=== PATIENT | male | born 1955 ===

== ENCOUNTER 2024-01-13 17:48 | Outpatient (BNV) | payer OTHER, SELFPAY | END 2024-03-21 10:54 | PROVIDERS: Admitting Provider Psychiatry & Neurology Psychiatry; Visit Provider Internal Medicine | DX: R94.31 Abnormal electrocardiogram [ECG] [EKG] (principal) | CPT/HCPCS: 93010 ==

== ENCOUNTER 2024-01-13 17:48 | Outpatient (BNV) | payer OTHER, SELFPAY | END 2024-03-20 08:33 | PROVIDERS: Admitting Provider Psychiatry & Neurology Psychiatry; Visit Provider Radiology Diagnostic Radiology | DX: J69.0 Pneumonitis due to inhalation of food and vomit (principal) | CPT/HCPCS: 71046 ==

== ENCOUNTER 2024-01-13 17:48 | Inpatient (IN) | payer OTHER, SELFPAY ==
--- NOTE | ~2024-01-13 | CT_ITS ---
CLINICAL HISTORY: Fall, lump to right eyebrow CT head without contrast Comparison: CT/SR - CT HEAD/BRAIN WO IV CON - 04/05/24 16:[address]/SR - CT HEAD/BRAIN WO IV CON - 03/28/24 09:[address]/ND/SR - CT HEAD/BRAIN WO IV CON - 03/21/24 11:[address]/SR - CT HEAD/BRAIN WO IV CON - 02/29/24 01:46 EST Findings: No acute hemorrhage. No extra-axial fluid collection. No hydrocephalus, mass-effect or herniation. Segal-white differentiation is maintained. There is patchy hypoattenuation of the periventricular and deep white matter, which is most likely the sequela of mild chronic small vessel ischemic disease and is similar to the prior studies. No acute orbital pathology. Right supraorbital hematoma measuring 1.2 cm in thickness. No acute fracture. Remote fracture of the left lamina papyracea. The visualized paranasal sinuses are predominantly clear. The mastoid air cells are clear. Impression: No acute intracranial findings. This document has been electronically signed by: Janiya Leija MD on 04/10/2024 15:43:39
--- NOTE | ~2024-01-13 | XR_ITS ---
EXAMINATION: XR CHEST CLINICAL INFORMATION: R/O aspirative pneumonia COMPARISON: None available. TECHNIQUE: 2 lateral views of the chest were obtained. The AP view could not be obtained due to patient inability to comply with instructions. FINDINGS: Lateral view demonstrates basilar airspace opacity, possibly pneumonia. Left hemidiaphragm is elevated. Right costophrenic sulcus is obscured by the patient's chair. No left effusion present. Grossly laterally, cardiac and aortic contours are normal. XR/XR chest 2V IMPRESSION: Extremely limited exam. Only lateral views could be obtained. Suspect basilar airspace opacity, possibly pneumonia. Electronically signed by: Fortino Dumont MD 03/20/2024 10:10 AM [facility]
--- NOTE | ~2024-01-13 | CT_ITS ---
EXAMINATION: CT HEAD WITHOUT CONTRAST CLINICAL INFORMATION: fall head trauma COMPARISON: March 21, 2024 TECHNIQUE: Contiguous axial imaging was performed from the skull base to vertex without intravenous administration of contrast. This CT examination was performed using dose optimization techniques as appropriate, variously including the following: *Automated exposure control *Adjustment of mA and/or kV according to patient size (this includes techniques or standardized protocols for targeted exams where dose is matched to indication/reason for exam; i.e. extremities or head) *Use of iterative reconstruction technique DLP: 875 mGy-cm FINDINGS: Bony calvarium is intact. Skull base is intact. Small focal exostosis in the superior right parietal and left parietal bones. Old traumatic deformity left lamina papyracea resulting in herniated extraconal fat and questionable mild tethered medial extraocular muscle. No acute intracranial hemorrhage, mass effect, midline shift, hydrocephalus or herniation. Prominence of the extra-axial CSF spaces cerebral sulci involving mostly the frontotemporal lobes. Mild multifocal deep periventricular white matter hypodensities involving centrum semiovale and elias radiata. Old lacunar infarcts in the basal ganglia most conspicuous in the right thalamus. Calcified plaques in the V4 segments of the vertebral arteries and cavernous supracavernous segments both ICAs. Sellar/suprasellar region demonstrated no gross masses or hemorrhage. Craniocervical junction is intact and normal. Tympanic cavities and mastoid cells are aerated. Mucosal thickening right frontal ethmoid recess and left sphenoid sinus. No air-fluid levels in the paranasal sinuses.. CT/CT head/brain wo IV con IMPRESSION: No acute fracture, bony calvarium. No acute intracranial hemorrhage. Small vessel occlusive disease. Bifrontal bitemporal lobe atrophy. Electronically signed by: Juan Corrigan MD 03/28/2024 10:19 AM [facility]
--- NOTE | ~2024-01-13 | CT_ITS ---
CLINICAL HISTORY: head trauma CT head without contrast Comparison: CT/SR - CT HEAD/BRAIN WO IV CON - 04/09/24 09:01 EST Findings: No acute intracranial hemorrhage or midline shift. The vizcarra-white matter differentiation is maintained. Mild generalized cerebral involutional change. Mild burden chronic small-vessel white matter ischemic change. Punctate bilateral basal ganglia calcifications. The paranasal sinuses and mastoid air cells are clear. The globes are proptotic. Small frontal scalp hematoma and right supraorbital soft tissue swelling. The calvarium is intact. IMPRESSION: Small frontal scalp hematoma and right supraorbital soft tissue swelling. No acute intracranial hemorrhage or midline shift. This document has been electronically signed by: Esa Goncalves DO on 04/24/2024 11:38:33
--- NOTE | ~2024-01-13 | CT_ITS ---
EXAMINATION: CT HEAD WITHOUT CONTRAST CLINICAL INFORMATION: Fall, hit occipital area COMPARISON: None available. TECHNIQUE: Contiguous axial imaging was performed from the skull base to vertex without intravenous administration of contrast. This CT examination was performed using dose optimization techniques as appropriate, variously including the following: *Automated exposure control *Adjustment of mA and/or kV according to patient size (this includes techniques or standardized protocols for targeted exams where dose is matched to indication/reason for exam; i.e. extremities or head) *Use of iterative reconstruction technique DLP: 1233 FINDINGS: There is no acute intra-axial, extra-axial bleed, masses or midline shift. There is no acute infarction evolution. There is no edema. The grace to white matter differentiation is maintained normal. The lateral ventricles are symmetrical in size and configuration without enlargement. Bone windows reveal no calvarial abnormality. There is no scalp soft tissue abnormality. CT/CT head/brain wo IV con IMPRESSION: No acute intracranial process seen. Electronically signed by: Ritchie Marte MD 04/25/2024 01:01 PM [facility]
--- NOTE | ~2024-01-13 | CT_ITS ---
EXAMINATION: CT HEAD WITHOUT CONTRAST CLINICAL INFORMATION: Unwitnessed fall, dementia. COMPARISON: 02/29/2024. TECHNIQUE: Contiguous axial imaging was performed from the skull base to vertex without intravenous administration of contrast. This CT examination was performed using dose optimization techniques as appropriate, variously including the following: *Automated exposure control *Adjustment of mA and/or kV according to patient size (this includes techniques or standardized protocols for targeted exams where dose is matched to indication/reason for exam; i.e. extremities or head) *Use of iterative reconstruction technique FINDINGS: There is no evidence of intracranial hemorrhage or extra-axial fluid collection. There is no mass effect, or edema. No CT evidence of acute territorial infarct. Ventricles, sulci, and cisterns are normal in size and configuration for patient age. No hydrocephalus. No midline shift. Mild degree of nonspecific supratentorial white matter hypoattenuation, in keeping with small vessel ischemia. Old lacunar type infarct right mid elias radiata. Empty sella noted. Mild atheromatous calcification of the bilateral carotid siphons and V4 segments vertebral arteries bilaterally. Globes and orbital contents image normally. No extracranial soft tissue abnormalities. The paranasal sinuses, mastoid air cells, and tympanic cavities are normally aerated. No suspicious bony abnormalities. No acute fractures. Old left lamina papyracea fracture. Old right nasal bone fracture. CT/CT head/brain wo IV con IMPRESSION: 1. No acute intracranial abnormality. No acute fractures seen. 2. Stable chronic findings as discussed. Electronically signed by: Fortino Dumont MD 03/21/2024 11:54 AM [facility]
--- NOTE | ~2024-01-13 | CT_ITS ---
CLINICAL HISTORY: s p fall, head trauma CT head without contrast Comparison: None Findings: No acute intracranial hemorrhage. No midline shift or hydrocephalus. Mild white matter lesions are nonspecific and likely due to small-vessel ischemic disease. Mild calcifications of the basal ganglia regions noted. Soft tissue swelling suggested including over the left frontal convexity. No acute skull fracture. Orbital wall fractures with remodeling appear old chronic including medialization and/or medial displacement of the medial wall of the left orbit. Mucosal thickening of the imaged paranasal sinuses. Mild bilateral nasal bone deformities appear old. Imaged mastoid air cells are well aerated. Scalp calcifications are nonspecific. IMPRESSION: 1. No acute intracranial abnormality by CT. 2. Old left orbit medial wall fracture. This document has been electronically signed by: Sudhir Castaneda MD on 02/29/2024 02:40:56
--- NOTE | ~2024-01-13 | CT_ITS ---
CLINICAL HISTORY: s p fall, head trauma CT cervical spine without contrast Comparison: None Findings: Mild reversal of the cervical lordosis. No acute fracture of the cervical spine. Ligament calcifications are multifocal including nuchal ligament of the cervicothoracic junction. Mild vertebral height losses appear old chronic. Facet arthropathy is multifocal. Mild/minimal foraminal narrowing suggested. No paraspinal hematoma. Small cervical lymph nodes are likely reactive. Scarring and emphysematous changes of the imaged lung apices. Likely mild enlargement of the partially imaged thyroid. IMPRESSION: 1. No acute fracture cervical spine. 2. Reversal cervical lordosis. 3. Degenerative changes include facet arthropathy. This document has been electronically signed by: Sudhir Castaneda MD on 02/29/2024 02:33:36
--- NOTE | ~2024-01-13 | CT_ITS ---
EXAMINATION: CT PELVIS WITHOUT CONTRAST CLINICAL INFORMATION: Unwitnessed fall, dementia. COMPARISON: None available. TECHNIQUE: Helical scanning was performed with submillimeter collimation through the pelvis. Sagittal and coronal multiplanar 2-D reconstructions were obtained. This CT examination was performed using dose optimization techniques as appropriate, variously including the following: *Automated exposure control *Adjustment of mA and/or kV according to patient size (this includes techniques or standardized protocols for targeted exams where dose is matched to indication/reason for exam; i.e. extremities or head) *Use of iterative reconstruction technique FINDINGS: PELVIS: Urinary bladder is decompressed but demonstrates diffuse wall thickening, nonspecific. Prostate and seminal vesicles appear normal. There is a large amount of stool within the rectal wall and throughout the sigmoid colon in keeping with obstipation. No colonic wall thickening or inflammation. A normal appendix is partially visualized. No ascites or abnormal fluid collection. Mild to moderate calcification of the iliac arteries. Penile implants noted. No lymphadenopathy. Pelvic girdle musculature is normal in appearance without hematoma or fluid collection. OSSEOUS STRUCTURES: There are no fractures. The pelvis, hip joints, proximal femurs, sacrum, SI joints, and lower lumbar spine are intact. There are 2 bone islands in the right inferior and superior pubic bone. There are mild degenerative changes in both SI joints. CT/CT pelvis wo IV con IMPRESSION: 1. No acute bony abnormalities. No fractures. 2. Constipation with a large amount of stool in the rectum and sigmoid colon. 3. Mild thickening of the urinary bladder wall despite underdistention, nonspecific. Differential includes the detrusor hypertrophy, neurogenic bladder, or possibly cystitis. Electronically signed by: Fortino Dumont MD 03/21/2024 12:09 PM [facility]
--- NOTE | ~2024-01-13 | CT_ITS ---
CLINICAL HISTORY: head trauma CT head without contrast COMPARISON: CT/SR - CT HEAD/BRAIN WO IV CON - 03/28/24 09:37 EST FINDINGS: Global cerebral volume loss and chronic microvascular ischemic changes. No acute intracranial hemorrhage, extra-axial fluid collection, mass effect, or midline shift. Ventricular system and basilar cisterns are patent. Segal-white matter differentiation is maintained. No gross orbital abnormality. No suspicious or acute bone lesion. Mastoid air cells and paranasal sinuses are predominantly clear. IMPRESSION: 1. No acute intracranial abnormality. 2. Global cerebral volume loss and chronic microvascular ischemic changes. This document has been electronically signed by: Leon Servin MD on 04/05/2024 19:28:06
--- NOTE | ~2024-01-13 | CT_ITS ---
EXAMINATION: CT CERVICAL SPINE WITHOUT CONTRAST CLINICAL INFORMATION: Unwitnessed fall, dementia. COMPARISON: 02/29/2024. TECHNIQUE: Spiral CT imaging of the cervical spine was performed in axial plane without contrast. Sagittal, coronal, and thin section axial reformatted images were constructed from the axial data set. This CT examination was performed using dose optimization techniques as appropriate, variously including the following: *Automated exposure control *Adjustment of mA and/or kV according to patient size (this includes techniques or standardized protocols for targeted exams where dose is matched to indication/reason for exam; i.e. extremities or head) *Use of iterative reconstruction technique FINDINGS: Study is limited due to patient inability to comply with or tolerate appropriate positioning for the exam. Minimal reversal of the normal lordosis centered at C3. No fracture, compression deformity, traumatic subluxation, or suspicious focal bone lesion. Craniocervical junction and C1-2 articulation are intact and aligned, allowing for head tilt position. There is normal facet alignment. Mild disc space narrowing noted throughout. Bulky ventral osteophytes are present at C4-C6, appearance in keeping with DISH. No prevertebral soft tissue swelling. No abnormal fluid collection. Mildly globally enlarged thyroid without discrete nodule evident. Linear scarring in the right lung apex. CT/CT cervical spine wo IV con IMPRESSION: 1. Allowing for suboptimal positioning, there is no CT evidence of acute cervical spine fracture or injury. 2. Degenerative changes with bulky ventral osteophytes spanning C4-C6, appearance in keeping with DISH. Electronically signed by: Fortino Dumont MD 03/21/2024 12:[address] [facility]
[2024-01-13 18:09] VITALS: BP 160/80; PULSE 88; RESP 18; TEMP 36.4; O2SAT 99
[2024-01-13 18:11] VITALS: BMI 24.3
--- NOTE | 2024-01-13 18:32 | PC.NURSE ---
Bret arrived via stretcher at 1805. He took some coaxing to get down from the stretcher due to disorganization and his full concentration being used on asking staff members where the piano is. 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 Skin check completed with Jessica CHIRINOS and unremarkable aside from fungal toenails. Bret is a fall risk due to history of a recent fall, but adamantly refused to wear yellow socks due to dislike of the color. He was willing to put on brown socks. Dinner ordered and provided. During tour of the unit Bret repeated the various areas and checked each one multiple times, expressing displeasure that the shower and bathroom are not connected. He can be difficult to understand at times due to accented and mumbled speech. He is resistive of help and irritable but in behavioral control.
--- NOTE | 2024-01-13 19:00 | HO.PM.IMCN ---
History of Present Illness Data of Consult Service Date: 01/13/24 Primary Care Provider: Unknown Physician HPI Reason for consult: Admission H&P Pt is a 68-year-old male with a PMH significant for?HTN, HLD, and peripheral neuropathy who is admitted to psychiatry unit for . Medical consult for admission H&P. ? Labs reviewed, significant for [facility] Social History Advance Directives: No Advance Directives Information Provided: No Meds Allergies Allergy/AdvReac Type Severity Reaction Status Date / Time lithium Allergy Unknown Verified 01/13/24 18:08 Active Medications: Current Medications Acetaminophen (Acetaminophen 325 Mg Tablet) 650 mg PO Q6H PRN PRN Reason: Headache/Pain Mild Scale (1-3) Al Hydroxide/Mg Hydroxide (Magnesium Hydrox/Alum Hydrox 30 Ml Oral.Susp) 30 ml PO Q6H PRN PRN Reason: Heartburn/Nausea Hydroxyzine HCl (Hydroxyzine Hcl 25 Mg Tablet) 25 mg PO Q6H PRN PRN Reason: Anxiety Magnesium Hydroxide (Milk Of Magnesia 30 Ml Oral.Susp) 30 ml PO DAILY PRN PRN Reason: Constipation Nicotine Polacrilex (Nicotine Polacrilex 2 Mg Gum) 2 mg BUCCAL Q2H PRN PRN Reason: Nicotine Cravings Trazodone HCl (Trazodone Hcl 50 Mg Tablet) 50 mg PO BEDTIME MRX1 PRN PRN Reason: Insomnia Home Medications ?Medication ?Instructions ?Recorded ?Confirmed ?Last Taken ?Type amlodipine 10 mg tablet 10 mg PO DAILY 01/13/24 01/13/24 Unknown History aripiprazole 10 mg tablet 10 mg PO DAILY 01/13/24 01/13/24 Unknown History aspirin 81 mg capsule 81 mg PO DAILY 01/13/24 01/13/24 Unknown History atorvastatin 40 mg tablet 40 mg PO DAILY 01/13/24 01/13/24 Unknown History carbamazepine 200 mg tablet 200 mg PO BID 01/13/24 01/13/24 Unknown History cholecalciferol (vitamin D3) 50 50 mcg PO DAILY 01/13/24 01/13/24 Unknown History mcg (2,000 unit) capsule (Vitamin D3) deutetrabenazine 36 mg 36 mg PO DAILY 01/13/24 01/13/24 Unknown History tablet,extended release 24 hr (Austedo XR) ferrous sulfate 325 mg (65 mg 325 mg PO BID 01/13/24 01/13/24 Unknown History iron) tablet (Iron (ferrous sulfate)) gabapentin 300 mg capsule 300 mg PO TID 01/13/24 01/13/24 Unknown History Physical Exam Vital Signs and Narrative: Vital Signs: Last Vital Signs Temp 97.5 F 01/13/24 18:09 Pulse 88 01/13/24 18:09 Resp 18 01/13/24 18:09 BP 160/80 H 01/13/24 18:09 Pulse Ox 99 01/13/24 18:09 O2 Del Method Room Air 01/13/24 18:09 BMI result Body Mass Index 24.3
[2024-01-14 07:59] VITALS: BP 181/85; PULSE 79; RESP 20; TEMP 36.3; O2SAT 98
--- NOTE | 2024-01-14 12:43 | HO.PSYADMNOT ---
HPI Date of Service: 01/14/24 Chief Complaint: Schizoaffective disorder Sources of Information: patient interviewed, chart reviewed and crisis/core team assessment reviewed HPI Subjective Notes: Section 12B Healthcare Proxy: No Guardianship: No Medical Problems Affecting Mental Status: Yes (hypertension, recent head injury- (ran self into a wall_)) Narrative: 68 yo AAM who lives in a skilled nursing was transfered to [facility] from another ER- Pt had stopped taking his medication at skilled nursing and had become increasingly agitated- to the point of leave home and then running into a wall - breaking his nose- Pt refusing to be cooperative with interview, first had blanket over him and then was harrasing roommate standing by his bed staring at him- disrobed and walked around naked. Now in obs room- dressed and refusing to talk to me except re wanting black coffee with sugar- doesn't care that he is diabetic- when pointed out Past Psychiatric History: extensive likely since living in skilled nursing- no paige order since 2021 no guardian Medical Evaluation Reviewed: Hospitalist Severo Espinoza reviewed medical note from other ER where he was seen for head injury from running into wall and had cardio consult who said [facility] were likely wnl for this patient? QTC prolonged as expected maybe if had been on meds for 450 dx with Schizoaffective bipoolar type DM2 HTN and CKD [facility] Narrative: see above under review of medical exam from er Family History: unknown Social History: brother also with psychiatric illness now , pt lives in skilled nursing Substance History: unknown Trauma History: unknown Diagnostics Vital Signs (24Hr): Vital Signs - 24 hr 01/13/24 18:09 01/14/24 07:59 Temperature 97.5 F 97.4 F Pulse Rate 88 79 Respiratory Rate 18 20 Blood Pressure 160/80 H 181/85 H Pulse Oximetry 99 98 Oxygen Delivery Method Room Air Room Air BMI result Body Mass Index 24.3 Meds/Allergies Meds Home Medications ?Medication ?Instructions ?Recorded ?Confirmed ?Type amlodipine 10 mg tablet 10 mg PO DAILY 01/13/24 01/13/24 History aripiprazole 10 mg tablet 10 mg PO DAILY 01/13/24 01/13/24 History atorvastatin 40 mg tablet 40 mg PO DAILY 01/13/24 01/13/24 History deutetrabenazine 36 mg 36 mg PO DAILY 01/13/24 01/13/24 History tablet,extended release 24 hr (Austedo XR) gabapentin 300 mg capsule 300 mg PO TID 01/13/24 01/13/24 History carbamazepine 100 mg/5 mL oral 400 mg PO BID 01/14/24 01/14/24 History suspension empagliflozin 10 mg tablet 10 mg PO DAILY 01/14/24 01/14/24 History (Jardiance) glipizide 5 mg tablet 5 mg PO BID 01/14/24 01/14/24 History haloperidol lactate 2 mg/mL oral 15 mg PO BID 01/14/24 01/14/24 History concentrate levothyroxine 25 mcg tablet 25 mcg PO DAILY 01/14/24 01/14/24 History lisinopril 20 mg tablet 20 mg PO DAILY 01/14/24 01/14/24 History valproic acid (as sodium salt) 250 500 mg PO BID 01/14/24 01/14/24 History mg/5 mL oral solution Allergies Allergies Allergy/AdvReac Type Severity Reaction Status Date / Time lithium Allergy Unknown Verified 01/13/24 18:08 Mental Status Exam Mental Status Exam Narrative: lying in bed having urinated in other bed /sheets has been changed and put in private obs room Patient Appearance: Unkempt Patient Orientation: Person Level of Consciousness: Awake and Inappropriate Patient Behavior: Belligerent, Swearing, Resistive to Care, Impulsive and Poor Eye Contact Mood Description: Hostile and Angry Affect Description: Labile Ability to Follow Directions: Poor Speech Pattern: Clear and Inappropriate Thought Content: positive for Loyal and positive for Evasive Depressive Symptoms: Muscle Tension and Increased Irritability Abnormal Motor Activity Signs and Symptoms: Agitation Judgement: Poor Assessment & Plan Assessment & Plan (1) Schizoaffective disorder, bipolar type: Status: Acute Code(s): F25.0 - Schizoaffective disorder, bipolar type (2) Hypertension: Status: Acute Code(s): I10 - Essential (primary) hypertension (3) Diabetes mellitus: Status: Acute Code(s): E11.9 - Type 2 diabetes mellitus without complications Plan 68 yo from a skilled nursing with chronic psychotic disorder, refusing medication , elevated bp and disorganized and agitated behavior requiring psychiatric hospitalization and treatment not competent to sign cv. Patient educated on: other (unable to educate about anything patient won't engage) Reason for continued inpatient stay Substantial Risk for: inability to function, rapid decompensation and med/psych decompensation Statement Statement: I have reviewed the history and physical and performed a pertinent examination on my patient. No changes have occurred unless specified. If the History and Physical was not performed prior to admission, the Hospitalist's service will be consulted for completing the admission physical. Time Spent With Patient Time: Total time managing care of this patient today ____ minutes.
--- NOTE | 2024-01-14 16:43 | PHA.MEDREC ---
Addendum entered by Mathieu Skinner RPh 01/14/24 17:42: Med rec was reviewed. Dr. Luu was notified of the update to home med list. Original Note: Pharmacy Consult ? Medication Reconciliation Pharmacy has completed the medication reconciliation. Med list in patients chart shows meds he was taking prior to his admission at the facility. Called the LTC pharmacy ([facility]) and they provided me with a list of his active medications that he was getting before he was discharged to us.
--- NOTE | 2024-01-15 12:05 | HO.PSYCHPN ---
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 and then telling us he is a pharoah- Refusing medications, disorganized with urinating- Refusing medications, vital signs, poc, not eating but taking fluids- oddly insistent on ingrid gracia in a can- Security came up to talk to patient as he needed to allow entrance to kitchen for others- was calm after that for a time- Medication Compliance: No Attending Groups: No Review of Systems Acute medical concerns: Yes HTN, recent head injury- Medical Review of Systems: unchanged Mental Status Exam Mental Status Exam Patient Appearance: Disheveled, Unkempt and Malodorous Patient Orientation: Person Level of Consciousness: Awake Patient Behavior: Belligerent, Swearing, Resistive to Care and Good Eye Contact Mood Description: Labile Affect Description: Expansive Ability to Follow Directions: Poor Speech Pattern: Loud and Includes Profanity Delusions: Grandiose Thought Process: Illogical Thought Content: positive for Flight of Ideas Depressive Symptoms: Insomnia and Increased Irritability Abnormal Motor Activity Signs and Symptoms: Agitation Judgement: Poor Diagnostics Vital Signs (24Hr): BMI result Body Mass Index 24.3 Medications Medications Current Medications Acetaminophen (Acetaminophen 325 Mg Tablet) 650 mg PO Q6H PRN PRN Reason: Headache/Pain Mild Scale (1-3) Al Hydroxide/Mg Hydroxide (Magnesium Hydrox/Alum Hydrox 30 Ml Oral.Susp) 30 ml PO Q6H PRN PRN Reason: Heartburn/Nausea Amlodipine Besylate (Amlodipine Besylate 10 Mg Tablet) 10 mg PO DAILY [facility]; Protocol Last Admin: 01/15/24 08:49 Dose: Not Given Aripiprazole (Aripiprazole 10 Mg Tablet) 10 mg PO DAILY [facility] Last Admin: 01/15/24 08:48 Dose: Not Given Aspirin (Aspirin Enteric Coated 81 Mg Tablet.Dr) 81 mg PO DAILY [facility] Last Admin: 01/15/24 08:49 Dose: Not Given Atorvastatin Calcium (Atorvastatin Calcium 40 Mg Tablet) 40 mg PO DAILY [facility] Last Admin: 01/15/24 08:49 Dose: Not Given Carbamazepine (Carbamazepine 200 Mg Tablet) 200 mg PO BID [facility] Last Admin: 01/15/24 08:52 Dose: Not Given Ferrous Sulfate (Ferrous Sulfate 324 Mg Tablet.) 324 mg PO BIDWM [facility] Last Admin: 01/15/24 08:49 Dose: Not Given Gabapentin (Gabapentin 300 Mg Capsule) 300 mg PO TID [facility] Last Admin: 01/15/24 08:51 Dose: Not Given Hydroxyzine HCl (Hydroxyzine Hcl 25 Mg Tablet) 25 mg PO Q6H PRN PRN Reason: Anxiety Magnesium Hydroxide (Milk Of Magnesia 30 Ml Oral.Susp) 30 ml PO DAILY PRN PRN Reason: Constipation Nicotine Polacrilex (Nicotine Polacrilex 2 Mg Gum) 2 mg BUCCAL Q2H PRN PRN Reason: Nicotine Cravings Trazodone HCl (Trazodone Hcl 50 Mg Tablet) 50 mg PO BEDTIME MRX1 PRN PRN Reason: Insomnia Vitamin D (Cholecalciferol (Vitamin D3) 25 Mcg Tablet) 50 mcg PO DAILY [facility] Last Admin: 01/15/24 08:49 Dose: Not Given Allergies Allergies Allergy/AdvReac Type Severity Reaction Status Date / Time lithium Allergy Unknown Verified 01/13/24 18:08 Assessment & Plan Assessment & Plan (1) Schizoaffective disorder, bipolar type: Status: Acute Code(s): F25.0 - Schizoaffective disorder, bipolar type (2) Hypertension: Status: Acute Code(s): I10 - Essential (primary) hypertension (3) Diabetes mellitus: Status: Acute Code(s): E11.9 - Type 2 diabetes mellitus without complications Plan 68 yo from a intermediate with chronic psychotic disorder, refusing medication , elevated bp and disorganized and agitated behavior requiring psychiatric hospitalization and treatment not competent to sign cv. 01/14 continue to follow - gave lambs warning today- and he says the preliminary school psychologist will be a she- still refusing medications and quite psychotic takes alot of redirection to settle him poor adls- Patient educated on: other ([address] be pending but could avoid by taking medications and getting better) Informed Consent: further education needed Reason for continued inpatient stay Substantial Risk for: harm to self, harm to others, rapid decompensation and med/psych decompensation Time Spent With Patient Time: Total time managing care of this patient today ____ minutes.
--- NOTE | 2024-01-16 10:14 | PC.ADMIT ---
Admission Risk assessment completed as fully as possible, as patient is not forthcoming and can e considered a poor historian. Bret maintains that he does not smoke cigarettes, drink alcohol or take other substances as he is a [employer]. Beyond this information, the only information he provided is that his mother is but she loved him very much when she was alive, and he has no use for any of us, bitches. Patient refused the flu vaccine, I said I am [employer] j[employer]ism!
--- NOTE | 2024-01-16 13:25 | P.EN_ITS ---
Event Note Date of Service: 01/16/24 Event Note: Patient is a 68-year-old male with a PMH significant HTN, HLD, no [id number] type 2 diabetes, hypothyroidism, and mood disorder who was admitted to [facility]. Attempted to see patient again today, but patient continues to be actively psychotic not amenable to either interview or exam. Patient is currently in isolation room yelling nonsensically. Will sign off for now. Please re-consult if any acute issue or need arises. Time Spent With Patient Time: Total time managing care of this patient today ____ minutes.
--- NOTE | 2024-01-16 15:44 | HO.PSYCHPN ---
Subjective Subjective Date of Service: 01/16/24 Reason For Visit: Schizoaffective disorder Subjective Notes: Section 12B (01/17) Healthcare Proxy: No Guardianship: No Medical Problems Affecting Mental Status: No Interim History: Pt continues to reside in room 505. He is psychotic, respondisng to internal stimuli, yelling at times, guarded, paranoid. Team reports he only slept for four hours. He is incontinent intermittently. Met with pt x 2. He reports his mother has . He is tearful, expresses anger, psychotic content and mood lability. He is difficult to understand at times. He has refused all medicines today. He has refused to meet with the hospitalist for the second day. Medication Compliance: No Side effects from medications: No Attending Groups: No Review of Systems Refuses exam Review of Systems Review of Systems Yes Unobtainable due to mental status Mental Status Exam Mental Status Exam Patient Appearance: Fatigued, Disheveled, Unkempt and Bizarre Patient Orientation: Person Level of Consciousness: Awake, Restless and Alert Patient Behavior: Guarded, Talkative, Hyperactive, Suspicious, Restless, Belligerent, Swearing, Anxious, Fearful, Resistive to Care, Avoidant, Fatigued, Distractible, Confused, Good Eye Contact, Crying and Impulsive Mood Description: Suspicious, Depressed, Fearful, Hostile, Anxious, Labile, Angry, Apprehensive and Expansive Affect Description: Labile Patient Cognition Impaired: Yes Ability to Follow Directions: Poor Speech Pattern: Spontaneous Speech, Rambling, Rapid, Excessive, Loud, Pressured and Includes Profanity Memory Description: Remote Impaired Hallucinations: Auditory (he will not answer this question, his behaviors appear like he may be responding) Delusions: Paranoid Ideation and Present Thought Process: Racing, Illogical and Distracted Thought Content: positive for Racing, positive for Circumstantial, positive for Perseveration, positive for Preoccupation, positive for Thought Blocking and positive for Disorganized Depressive Symptoms: Insomnia, Diff. Making Decisions and Difficulty Sleeping Abnormal Motor Activity Signs and Symptoms: Agitation and Restlessness Judgement: Poor Diagnostics Vital Signs (24Hr): BMI result Body Mass Index 24.3 Medications Medications Current Medications Acetaminophen (Acetaminophen 325 Mg Tablet) 650 mg PO Q6H PRN PRN Reason: Headache/Pain Mild Scale (1-3) Al Hydroxide/Mg Hydroxide (Magnesium Hydrox/Alum Hydrox 30 Ml Oral.Susp) 30 ml PO Q6H PRN PRN Reason: Heartburn/Nausea Amlodipine Besylate (Amlodipine Besylate 10 Mg Tablet) 10 mg PO DAILY [facility]; Protocol Last Admin: 01/16/24 08:52 Dose: Not Given Aripiprazole (Aripiprazole 10 Mg Tablet) 10 mg PO DAILY [facility] Last Admin: 01/16/24 08:52 Dose: Not Given Aspirin (Aspirin Enteric Coated 81 Mg Tablet.) 81 mg PO DAILY [facility] Last Admin: 01/16/24 08:52 Dose: Not Given Atorvastatin Calcium (Atorvastatin Calcium 40 Mg Tablet) 40 mg PO DAILY [facility] Last Admin: 01/16/24 08:52 Dose: Not Given Carbamazepine (Carbamazepine 200 Mg Tablet) 200 mg PO BID [facility] Last Admin: 01/16/24 08:53 Dose: Not Given Ferrous Sulfate (Ferrous Sulfate 324 Mg Tablet.) 324 mg PO BIDWM [facility] Last Admin: 01/16/24 08:52 Dose: Not Given Gabapentin (Gabapentin 300 Mg Capsule) 300 mg PO TID [facility] Last Admin: 01/16/24 15:22 Dose: Not Given Hydroxyzine HCl (Hydroxyzine Hcl 25 Mg Tablet) 25 mg PO Q6H PRN PRN Reason: Anxiety Magnesium Hydroxide (Milk Of Magnesia 30 Ml Oral.Susp) 30 ml PO DAILY PRN PRN Reason: Constipation Nicotine Polacrilex (Nicotine Polacrilex 2 Mg Gum) 2 mg BUCCAL Q2H PRN PRN Reason: Nicotine Cravings Trazodone HCl (Trazodone Hcl 50 Mg Tablet) 50 mg PO BEDTIME MRX1 PRN PRN Reason: Insomnia Vitamin D (Cholecalciferol (Vitamin D3) 25 Mcg Tablet) 50 mcg PO DAILY [facility] Last Admin: 01/16/24 08:53 Dose: Not Given Allergies Allergies Allergy/AdvReac Type Severity Reaction Status Date / Time lithium Allergy Unknown Verified 01/13/24 18:08 Assessment & Plan Assessment & Plan (1) Schizoaffective disorder, bipolar type: Status: Acute Code(s): F25.0 - Schizoaffective disorder, bipolar type (2) Hypertension: Status: Acute Code(s): I10 - Essential (primary) hypertension (3) Diabetes mellitus: Status: Acute Code(s): E11.9 - Type 2 diabetes mellitus without complications Plan 68 yo [facility] a [facility] with chronic psychotic disorder, refusing medication , elevated bp and disorganized and agitated behavior requiring psychiatric hospitalization and treatment not competent to sign cv. 01/14 continue to follow - gave lambs warning today- and he says the chiropractic physician will be a she- still refusing medications and quite psychotic takes alot of redirection to settle him poor adls- 01/15- Refuses meds, refuses hospitalist consult-second day File for Section Seven consideration on 01/17. Provide care as he will allso. Informed Consent: does not understand Reason for continued inpatient stay Substantial Risk for: rapid decompensation and med/psych decompensation Time Spent With Patient Time: Total time managing care of this patient today ____ minutes.
[2024-01-16 19:42] VITALS: BP 122/67; PULSE 83; RESP 18; TEMP 36.9; O2SAT 98
[2024-01-17] MEDS: carBAMazepine 200 MG TABLET PO (04:33)
[2024-01-17] MEDS: ARIPiprazole 10 MG TABLET PO (04:33)
[2024-01-17] MEDS: hydrOXYzine HCL 25 MG TABLET PO (04:33)
[2024-01-17] MEDS: Gabapentin 300 MG CAPSULE PO (04:34)
[2024-01-17] MEDS: LORazepam 1 MG TABLET 2 MG PO (05:26)
[2024-01-17] MEDS: HaloperidoL 5 MG TABLET 10 MG PO (05:27)
[2024-01-17] MEDS: diphenhydrAMINE HCL 25 MG CAPSULE 50 MG PO (05:29)
--- NOTE | 2024-01-17 07:04 | PC.NURSE ---
Patient very disorganized tonight making bizarre noises, running in the hallway disrobing, laying on the floor naked, spitting on the window in his room, flailing his arms about but not being violent or aggressive in one direction. Patient was being a danger to himself and others. Patient was requesting ice cream and states he was willing to take medications if we get him ice cream. MD made aware of patients behavior and oral medications ordered and administered with good effect. Patient eating multiple ice creams each all in one bite and then he would throw the cup on the floor. Many attempts made to re-direct without any effect. Patient did state [facility] without prompting. He was speaking of group home and trump and scientologist. Patient is currently sleeping in his room.
--- NOTE | 2024-01-17 19:26 | P.PNPSI_ITS ---
Subjective Subjective Date of Service: 01/17/24 Reason For Visit: Schizoaffective disorder Subjective Notes: Section 12B Healthcare Proxy: No Guardianship: Yes Medical Problems Affecting Mental Status: No Interim History: Pt took Abilify, Tegretol, Gabapentin, Haldol 10 mg, Lorazepam 2 mg and Benadryl 50 mg early this a.m. however refused other medications. He has been in his room, in bed for the day. Attempted to connect with him a few times, he declined, I have no problems, I just need a hotel. I take no medications . Message left for guardian. Section 7 paperwork completed to file on 01/17. Pt appears comfortable in no acute distress. Depakote, PRN Haldol, Lorazepam, Diphenhydramine added to regime. Medication Compliance: Intermittent Side effects from medications: No Attending Groups: No Review of Systems Acute medical concerns: No Review of Systems Review of Systems Yes Unobtainable due to mental status Mental Status Exam Mental Status Exam Narrative: Calm, in bed, responsive, declines interventions. Appears to be responding to internal stimuli at times Confused, with tangential sx Affect and mood are blunted Diagnostics Vital Signs (24Hr): Vital Signs - 24 hr 01/16/24 19:42 Temperature 98.5 F Pulse Rate 83 Respiratory Rate 18 Blood Pressure 122/67 Pulse Oximetry 98 Oxygen Delivery Method Room Air BMI result Body Mass Index 24.3 Medications Medications Current Medications Acetaminophen (Acetaminophen 325 Mg Tablet) 650 mg PO Q6H PRN PRN Reason: Headache/Pain Mild Scale (1-3) Al Hydroxide/Mg Hydroxide (Magnesium Hydrox/Alum Hydrox 30 Ml Oral.Susp) 30 ml PO Q6H PRN PRN Reason: Heartburn/Nausea Amlodipine Besylate (Amlodipine Besylate 10 Mg Tablet) 10 mg PO DAILY [facility]; Protocol Last Admin: 01/17/24 11:20 Dose: Not Given Aripiprazole (Aripiprazole 10 Mg Tablet) 10 mg PO DAILY [facility] Last Admin: 01/17/24 04:33 Dose: 10 mg Aspirin (Aspirin Enteric Coated 81 Mg Tablet.Dr) 81 mg PO DAILY [facility] Last Admin: 01/17/24 11:20 Dose: Not Given Atorvastatin Calcium (Atorvastatin Calcium 40 Mg Tablet) 40 mg PO DAILY [facility] Last Admin: 01/17/24 11:20 Dose: Not Given Carbamazepine (Carbamazepine 200 Mg Tablet) 200 mg PO BID [facility] Last Admin: 01/17/24 04:33 Dose: 200 mg Divalproex Sodium (Divalproex Sodium Sprinkles 125 Mg Cap.) 250 mg PO BID [facility] Last Admin: 01/17/24 11:20 Dose: Not Given Ferrous Sulfate (Ferrous Sulfate 324 Mg Tablet.) 324 mg PO BIDWM [facility] Last Admin: 01/17/24 16:01 Dose: Not Given Gabapentin (Gabapentin 300 Mg Capsule) 300 mg PO TID [facility] Last Admin: 01/17/24 14:12 Dose: Not Given Haloperidol (Haloperidol 5 Mg Tablet) 5 mg PO TID PRN PRN Reason: psychosis,agitation Hydroxyzine HCl (Hydroxyzine Hcl 25 Mg Tablet) 25 mg PO Q6H PRN PRN Reason: Anxiety Last Admin: 01/17/24 04:33 Dose: 25 mg Lorazepam (Lorazepam 1 Mg Tablet) 1 mg PO TID PRN PRN Reason: agitation Magnesium Hydroxide (Milk Of Magnesia 30 Ml Oral.Susp) 30 ml PO DAILY PRN PRN Reason: Constipation Nicotine Polacrilex (Nicotine Polacrilex 2 Mg Gum) 2 mg BUCCAL Q2H PRN PRN Reason: Nicotine Cravings Trazodone HCl (Trazodone Hcl 50 Mg Tablet) 50 mg PO BEDTIME MRX1 PRN PRN Reason: Insomnia Vitamin D (Cholecalciferol (Vitamin D3) 25 Mcg Tablet) 50 mcg PO DAILY [facility] Last Admin: 01/17/24 11:20 Dose: Not Given Allergies Allergies Allergy/AdvReac Type Severity Reaction Status Date / Time lithium Allergy Unknown Verified 01/13/24 18:08 Assessment & Plan Assessment & Plan (1) Schizoaffective disorder, bipolar type: Status: Acute Code(s): F25.0 - Schizoaffective disorder, bipolar type (2) Hypertension: Status: Acute Code(s): I10 - Essential (primary) hypertension (3) Diabetes mellitus: Status: Acute Code(s): E11.9 - Type 2 diabetes mellitus without complications Plan 68 yo from a nursing home with chronic psychotic disorder, refusing medication , elevated bp and disorganized and agitated behavior requiring psychiatric hospitalization and treatment not competent to sign cv. 01/14 continue to follow - gave lambs warning today- and he says the juvenile court judge will be a she- still refusing medications and quite psychotic takes alot of redirection to settle him poor adls- 01/15- Refuses meds, refuses hospitalist consult-second day File for Section Seven consideration on 01/17. Provide care as he will allow. 01/16: Depakote 250 mg bid Haldol, Lorazepam, Benadryl prn Section 7 to be filed 01/17 Message left for guardian. Reason for continued inpatient stay Substantial Risk for: rapid decompensation and med/psych decompensation Time Spent With Patient Time: Total time managing care of this patient today ____ minutes.
[2024-01-17] MEDS: Acetaminophen 325 MG TABLET 650 MG PO (23:53)
[2024-01-18 08:00] VITALS: RESP 18
--- NOTE | 2024-01-18 13:47 | HO.PSYCHPN ---
Subjective Subjective Date of Service: 01/18/24 Reason For Visit: Schizoaffective disorder Subjective Notes: Section 7, Section 8 and Section 12B Interim History: The patient was transferred today from to [facility] for continuation of care. On interview the patient was very loud stating that he is doing fine that he wants coffee. He looks pleasantly confused and easily redirectable. Section 7 and 8 had been filed since the patient can not sign CV. They have been trying to contact the guardian. Mental Status Exam Mental Status Exam Patient Appearance: Appropriate (On hospital gowns) Patient Orientation: Person and Situation Level of Consciousness: Awake Patient Behavior: Guarded and Passive Mood Description: Calm Affect Description: Labile Patient Cognition Impaired: Yes Ability to Follow Directions: Good Speech Pattern: Clear Hallucinations: None Delusions: Ideas of Reference Thought Process: Distracted and Slowed Thinking Thought Content: positive for [place], positive for Poverty of Content and positive for Thought Blocking Judgement: Poor Diagnostics Vital Signs (24Hr): Vital Signs - 24 hr 01/18/24 08:00 Respiratory Rate 18 BMI result Body Mass Index 24.3 Medications Medications Current Medications Acetaminophen (Acetaminophen 325 Mg Tablet) 650 mg PO Q6H PRN PRN Reason: Headache/Pain Mild Scale (1-3) Last Admin: 01/17/24 23:53 Dose: 325 mg Al Hydroxide/Mg Hydroxide (Magnesium Hydrox/Alum Hydrox 30 Ml Oral.Susp) 30 ml PO Q6H PRN PRN Reason: Heartburn/Nausea Amlodipine Besylate (Amlodipine Besylate 10 Mg Tablet) 10 mg PO DAILY [facility]; Protocol Last Admin: 01/18/24 08:46 Dose: Not Given Aripiprazole (Aripiprazole 10 Mg Tablet) 10 mg PO DAILY [facility] Last Admin: 01/18/24 08:46 Dose: Not Given Aspirin (Aspirin Enteric Coated 81 Mg Tablet.Dr) 81 mg PO DAILY [facility] Last Admin: 01/18/24 08:47 Dose: Not Given Atorvastatin Calcium (Atorvastatin Calcium 40 Mg Tablet) 40 mg PO DAILY [facility] Last Admin: 01/18/24 08:47 Dose: Not Given Carbamazepine (Carbamazepine 200 Mg Tablet) 200 mg PO BID [facility] Last Admin: 01/18/24 08:47 Dose: Not Given Diphenhydramine HCl (Diphenhydramine Hcl 25 Mg Capsule) 50 mg PO Q8H PRN PRN Reason: agitation Divalproex Sodium (Divalproex Sodium Sprinkles 125 Mg Cap.) 250 mg PO BID [facility] Last Admin: 01/18/24 08:47 Dose: Not Given Ferrous Sulfate (Ferrous Sulfate 324 Mg Tablet.) 324 mg PO BIDWM [facility] Last Admin: 01/18/24 08:46 Dose: Not Given Gabapentin (Gabapentin 300 Mg Capsule) 300 mg PO TID [facility] Last Admin: 01/18/24 08:47 Dose: Not Given Haloperidol (Haloperidol 5 Mg Tablet) 5 mg PO TID PRN PRN Reason: psychosis,agitation Hydroxyzine HCl (Hydroxyzine Hcl 25 Mg Tablet) 25 mg PO Q6H PRN PRN Reason: Anxiety Last Admin: 01/17/24 04:33 Dose: 25 mg Lorazepam (Lorazepam 1 Mg Tablet) 1 mg PO TID PRN PRN Reason: agitation Magnesium Hydroxide (Milk Of Magnesia 30 Ml Oral.Susp) 30 ml PO DAILY PRN PRN Reason: Constipation Nicotine Polacrilex (Nicotine Polacrilex 2 Mg Gum) 2 mg BUCCAL Q2H PRN PRN Reason: Nicotine Cravings Trazodone HCl (Trazodone Hcl 50 Mg Tablet) 50 mg PO BEDTIME MRX1 PRN PRN Reason: Insomnia Vitamin D (Cholecalciferol (Vitamin D3) 25 Mcg Tablet) 50 mcg PO DAILY [facility] Last Admin: 01/18/24 08:47 Dose: Not Given Allergies Allergies Allergy/AdvReac Type Severity Reaction Status Date / Time lithium Allergy Unknown Verified 01/13/24 18:08 Assessment & Plan Assessment & Plan (1) Schizoaffective disorder, bipolar type: Status: Acute Code(s): F25.0 - Schizoaffective disorder, bipolar type (2) Hypertension: Status: Acute Code(s): I10 - Essential (primary) hypertension (3) Diabetes mellitus: Status: Acute Code(s): E11.9 - Type 2 diabetes mellitus without complications Plan 68 yo from a [facility] with chronic psychotic disorder, refusing medication , elevated bp and disorganized and agitated behavior requiring psychiatric hospitalization and treatment not competent to sign cv. 01/14 continue to follow - gave lambs warning today- and he says the process safety engineering technologist will be a she- still refusing medications and quite psychotic takes alot of redirection to settle him poor adls- 01/15- Refuses meds, refuses hospitalist consult-second day File for Section Seven consideration on 01/17. Provide care as he will allow. 01/16: Depakote 250 mg bid Haldol, Lorazepam, Benadryl prn Section 7 to be filed 01/17 Message left for guardian. 01/17 continue same treatment Reason for continued inpatient stay Substantial Risk for: inability to function, rapid decompensation and med/psych decompensation Time Spent With Patient Time: Total time managing care of this patient today __20__ minutes.
--- NOTE | 2024-01-18 15:04 | P.PNPSI_ITS ---
Subjective Subjective Date of Service: 01/18/24 Reason For Visit: Schizoaffective disorder Subjective Notes: Section 7 and Section 12B Healthcare Proxy: No Guardianship: Yes Medical Problems Affecting Mental Status: No Interim History: Section VII filed. Court date Jan.25 2pm. Message left for guardian, Jessica Zhao, via email and voice mail. We were informed by patent prosecution paralegal today that pt's Mitchell's Guardianship was extended to 03/07/24, however we are in need of a copy of the [place] itself. Pt continues to refuse all meds and exhibits intermittent agitation, lability of mood and disorganized thought process. He denies all symptoms. He believes he needs no medications at this time. He was incontinent of stool today, not allowing team to assist him in ADL's for a significant period of time, however, was able to participate in care. Team discussed a transfer to geriatrics upon admission, to offer pt more from milieu programming he would respond to. A bed became available today and pt transferred this afternoon. Medication Compliance: No Side effects from medications: No Attending Groups: No Review of Systems Acute medical concerns: No Medical Review of Systems: unchanged Review of Systems Review of Systems Yes Unobtainable due to mental status Mental Status Exam Mental Status Exam Patient Appearance: Disheveled, Unkempt and Malodorous Patient Orientation: Person Level of Consciousness: Awake, Restless (at times) and Alert Patient Behavior: Guarded, Talkative, Hyperactive (at times), Suspicious, Anxious, Fearful, Resistive to Care, Avoidant, Fatigued, Distractible, Confused, Uncooperative, Impulsive and Poor Eye Contact Mood Description: Labile Affect Description: Labile Patient Cognition Impaired: Yes Ability to Follow Directions: Fair Speech Pattern: Garbled, Spontaneous Speech, Rambling, Cofabulation, Rapid, Excessive, Animated, Loud, Pressured, Includes Profanity and Poor Articulation Memory Description: Remote Impaired Hallucinations: None (denies, however, appears to be responding at times) Delusions: Paranoid Ideation and Present Perceptual Disturbances: Derealization Thought Process: Racing, Illogical, Distracted, Evasive and Confusion Thought Content: positive for Flight of Ideas, positive for Racing, positive for Tangential, positive for Disorganized and positive for Suicidal Ideation (denies) Depressive Symptoms: Diff. Making Decisions, Increased Irritability and Difficulty Concentrating Abnormal Motor Activity Signs and Symptoms: Agitation, Hyperactivity and Restlessness Judgement: Poor Diagnostics Vital Signs (24Hr): Vital Signs - 24 hr 01/18/24 08:00 Respiratory Rate 18 BMI result Body Mass Index 24.3 Medications Medications Current Medications Acetaminophen (Acetaminophen 325 Mg Tablet) 650 mg PO Q6H PRN PRN Reason: Headache/Pain Mild Scale (1-3) Last Admin: 01/17/24 23:53 Dose: 325 mg Al Hydroxide/Mg Hydroxide (Magnesium Hydrox/Alum Hydrox 30 Ml Oral.Susp) 30 ml PO Q6H PRN PRN Reason: Heartburn/Nausea Amlodipine Besylate (Amlodipine Besylate 10 Mg Tablet) 10 mg PO DAILY [facility]; Protocol Last Admin: 01/18/24 08:46 Dose: Not Given Aripiprazole (Aripiprazole 10 Mg Tablet) 10 mg PO DAILY [facility] Last Admin: 01/18/24 08:46 Dose: Not Given Aspirin (Aspirin Enteric Coated 81 Mg Tablet.) 81 mg PO DAILY [facility] Last Admin: 01/18/24 08:47 Dose: Not Given Atorvastatin Calcium (Atorvastatin Calcium 40 Mg Tablet) 40 mg PO DAILY [facility] Last Admin: 01/18/24 08:47 Dose: Not Given Carbamazepine (Carbamazepine 200 Mg Tablet) 200 mg PO BID [facility] Last Admin: 01/18/24 08:47 Dose: Not Given Diphenhydramine HCl (Diphenhydramine Hcl 25 Mg Capsule) 50 mg PO Q8H PRN PRN Reason: agitation Divalproex Sodium (Divalproex Sodium Sprinkles 125 Mg Cap.) 250 mg PO BID [facility] Last Admin: 01/18/24 08:47 Dose: Not Given Ferrous Sulfate (Ferrous Sulfate 324 Mg Tablet.) 324 mg PO BIDWM [facility] Last Admin: 01/18/24 08:46 Dose: Not Given Gabapentin (Gabapentin 300 Mg Capsule) 300 mg PO TID [facility] Last Admin: 01/18/24 08:47 Dose: Not Given Haloperidol (Haloperidol 5 Mg Tablet) 5 mg PO TID PRN PRN Reason: psychosis,agitation Hydroxyzine HCl (Hydroxyzine Hcl 25 Mg Tablet) 25 mg PO Q6H PRN PRN Reason: Anxiety Last Admin: 01/17/24 04:33 Dose: 25 mg Lorazepam (Lorazepam 1 Mg Tablet) 1 mg PO TID PRN PRN Reason: agitation Magnesium Hydroxide (Milk Of Magnesia 30 Ml Oral.Susp) 30 ml PO DAILY PRN PRN Reason: Constipation Nicotine Polacrilex (Nicotine Polacrilex 2 Mg Gum) 2 mg BUCCAL Q2H PRN PRN Reason: Nicotine Cravings Trazodone HCl (Trazodone Hcl 50 Mg Tablet) 50 mg PO BEDTIME MRX1 PRN PRN Reason: Insomnia Vitamin D (Cholecalciferol (Vitamin D3) 25 Mcg Tablet) 50 mcg PO DAILY [facility] Last Admin: 01/18/24 08:47 Dose: Not Given Allergies Allergies Allergy/AdvReac Type Severity Reaction Status Date / Time lithium Allergy Unknown Verified 01/13/24 18:08 Assessment & Plan Assessment & Plan (1) Schizoaffective disorder, bipolar type: Status: Acute Code(s): F25.0 - Schizoaffective disorder, bipolar type (2) Hypertension: Status: Acute Code(s): I10 - Essential (primary) hypertension (3) Diabetes mellitus: Status: Acute Code(s): E11.9 - Type 2 diabetes mellitus without complications Plan 68 [facility] from a [facility] with chronic psychotic disorder, refusing medication , elevated bp and disorganized and agitated behavior requiring psychiatric hospitalization and treatment not competent to sign cv. 01/14 continue to follow - gave lambs warning today- and he says the humanities teacher will be a she- still refusing medications and quite psychotic takes alot of redirection to settle him poor adls- 01/15- Refuses meds, refuses hospitalist consult-second day File for Section Seven consideration on 01/17. Provide care as he will allow. 01/16: Depakote 250 mg bid Haldol, Lorazepam, Benadryl prn Section 7 to be filed 01/17 Message left for guardian. 01/17: Section Seven filed. Court scheduled 01/26/24 Pt continues to refuse medicaitons. He is in need of full assist with ADL's and is incontinent. Pt transferred to [facility] this afternoon. Reason for continued inpatient stay Substantial Risk for: rapid decompensation and med/psych decompensation Time Spent With Patient Time: Total time managing care of this patient today ____ minutes.
--- NOTE | 2024-01-18 15:15 | PC.ADMIT ---
Pt transferred from at 1340 with security present. Pt was incontinent of urine (possibly feces) and requires strong encouragement to clean self prior to transport.Upon arrival to unit pt was initially cooperative with staff, coming out of wheelchair and sitting at kitchen table while his room was being cleaned. Pt will tell staff use your discrection but then will refuse all care offered to him. Pt refusing meds and BP since arrival to unit. Pt has been loudly self-dialoging while in milieu. Pt can become irritable very quickly. Pt is currently a section 7.
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
[2024-01-19 20:00] VITALS: RESP 16
--- NOTE | 2024-01-19 21:11 | HO.PSYCHPN ---
Subjective Subjective Date of Service: 01/19/24 Reason For Visit: Schizoaffective disorder Subjective Notes: Section 7 Interim History: Patient with bizarre behavior yelling quite agitated spending much of his time in his room refusing vital signs refusing medication. The patient has a Servin order but reportedly there has been a problem obtaining it. Medication Compliance: No Mental Status Exam Mental Status Exam Patient Appearance: Disheveled Level of Consciousness: Awake and Alert Patient Behavior: Hyperactive (at times), Suspicious, Aggressive, Anxious, Fearful, Resistive to Care, Avoidant, Distractible, Confused, Uncooperative, Impulsive and Poor Eye Contact Behavior Comments: Verbally aggressive unable to engage in a back and forth conversation yelling about chicken wings Mood Description: Labile Affect Description: Labile, Angry and Apprehensive Patient Cognition Impaired: Yes Ability to Follow Directions: Fair Speech Pattern: Garbled, Rambling, Rapid, Excessive, Animated, Loud, Pressured, Includes Profanity and Poor Articulation Delusions: Paranoid Ideation and Present Thought Process: Racing, Illogical, Distracted and Confusion Thought Content: positive for Flight of Ideas, positive for Racing, positive for Tangential and positive for Disorganized Depressive Symptoms: Increased Irritability and Difficulty Concentrating Abnormal Motor Activity Signs and Symptoms: Agitation, Hyperactivity and Restlessness Judgement: Poor Diagnostics Vital Signs (24Hr): BMI result Body Mass Index 24.3 Medications Medications Current Medications Acetaminophen (Acetaminophen 325 Mg Tablet) 650 mg PO Q6H PRN PRN Reason: Headache/Pain Mild Scale (1-3) Last Admin: 01/17/24 23:53 Dose: 325 mg Al Hydroxide/Mg Hydroxide (Magnesium Hydrox/Alum Hydrox 30 Ml Oral.Susp) 30 ml PO Q6H PRN PRN Reason: Heartburn/Nausea Amlodipine Besylate (Amlodipine Besylate 10 Mg Tablet) 10 mg PO DAILY [facility]; Protocol Last Admin: 01/19/24 08:34 Dose: Not Given Aripiprazole (Aripiprazole 10 Mg Tablet) 10 mg PO DAILY [facility] Last Admin: 01/19/24 08:34 Dose: Not Given Aspirin (Aspirin Enteric Coated 81 Mg Tablet.Dr) 81 mg PO DAILY [facility] Last Admin: 01/19/24 08:34 Dose: Not Given Atorvastatin Calcium (Atorvastatin Calcium 40 Mg Tablet) 40 mg PO DAILY [facility] Last Admin: 01/19/24 08:35 Dose: Not Given Carbamazepine (Carbamazepine 200 Mg Tablet) 200 mg PO BID [facility] Last Admin: 01/19/24 08:35 Dose: Not Given Diphenhydramine HCl (Diphenhydramine Hcl 25 Mg Capsule) 50 mg PO Q8H PRN PRN Reason: agitation Divalproex Sodium (Divalproex Sodium Sprinkles 125 Mg Cap.) 250 mg PO BID [facility] Last Admin: 01/19/24 08:35 Dose: Not Given Ferrous Sulfate (Ferrous Sulfate 324 Mg Tablet.) 324 mg PO BIDWM [facility] Last Admin: 01/19/24 16:05 Dose: Not Given Gabapentin (Gabapentin 300 Mg Capsule) 300 mg PO TID [facility] Last Admin: 01/19/24 14:36 Dose: Not Given Haloperidol (Haloperidol 5 Mg Tablet) 5 mg PO TID PRN PRN Reason: psychosis,agitation Hydroxyzine HCl (Hydroxyzine Hcl 25 Mg Tablet) 25 mg PO Q6H PRN PRN Reason: Anxiety Last Admin: 01/17/24 04:33 Dose: 25 mg Lorazepam (Lorazepam 1 Mg Tablet) 1 mg PO TID PRN PRN Reason: agitation Magnesium Hydroxide (Milk Of Magnesia 30 Ml Oral.Susp) 30 ml PO DAILY PRN PRN Reason: Constipation Nicotine Polacrilex (Nicotine Polacrilex 2 Mg Gum) 2 mg BUCCAL Q2H PRN PRN Reason: Nicotine Cravings Trazodone HCl (Trazodone Hcl 50 Mg Tablet) 50 mg PO BEDTIME MRX1 PRN PRN Reason: Insomnia Vitamin D (Cholecalciferol (Vitamin D3) 25 Mcg Tablet) 50 mcg PO DAILY [facility] Last Admin: 01/19/24 08:35 Dose: Not Given Allergies Allergies Allergy/AdvReac Type Severity Reaction Status Date / Time lithium Allergy Unknown Verified 01/13/24 18:08 Assessment & Plan Assessment & Plan (1) Schizoaffective disorder, bipolar type: Status: Acute Code(s): F25.0 - Schizoaffective disorder, bipolar type (2) Hypertension: Status: Acute Code(s): I10 - Essential (primary) hypertension (3) Diabetes mellitus: Status: Acute Code(s): E11.9 - Type 2 diabetes mellitus without complications Plan 68 yo from a skilled nursing with chronic psychotic disorder, refusing medication , elevated bp and disorganized and agitated behavior requiring psychiatric hospitalization and treatment not competent to sign cv. 01/14 continue to follow - gave lambs warning today- and he says the line installer will be a she- still refusing medications and quite psychotic takes alot of redirection to settle him poor adls- 01/15- Refuses meds, refuses hospitalist consult-second day File for Section Seven consideration on 01/17. Provide care as he will allow. 01/16: Depakote 250 mg bid Haldol, Lorazepam, Benadryl prn Section 7 to be filed 01/17 Message left for guardian. 01/17: Section Seven filed. Court scheduled 01/26/24 Pt continues to refuse medicaitons. He is in need of full assist with ADL's and is incontinent. Pt transferred to [facility] this afternoon. 01/19/2024 Patient pending civil commitment loud agitated would not engage in any conversation with this justowriter operator non informational healing agitated verbally aggressive. Every attempt being made to get a copy of the patient's Servin order unclear why this has been so problematic. Encourage food and fluids Reason for continued inpatient stay Substantial Risk for: harm to self, inability to function and med/psych decompensation Time Spent With Patient Time: Total time managing care of this patient today ____ minutes.
--- NOTE | 2024-01-20 01:03 | HO.PSYEVENT ---
Event Note Date of Service: 01/20/24 Psych Restraint Event Note: At 0056 T/W was notified from charge nurse, patient is agitated, loud, disruptive and combative; security was called. per nursing, pt refusing HS meds and PRN medications. Haldol 5mg IM, Ativan 1mg IM and benadryl 25mg IM were ordered. Nursing to monitor vitals. Time Spent With Patient Time: Total time managing care of this patient today _10___ minutes.
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
[2024-01-20] MEDS: Haloperidol Lactate 5 MG/ML VIAL IM ×2 (01:15→07:54)
[2024-01-20] MEDS: diphenhydrAMINE HCL 50 MG/ML VIAL 25 MG IM (01:15)
[2024-01-20] MEDS: LORazepam 2 MG/ML VIAL 1 MG IM (01:15)
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
[2024-01-20] MEDS: LORazepam 2 MG/ML VIAL IM (07:54)
[2024-01-20 08:00] VITALS: RESP 20
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
[2024-01-20 11:29] VITALS: RESP 18
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
--- NOTE | 2024-01-20 13:40 | P.PNPSI_ITS ---
Subjective Subjective Date of Service: 01/20/24 Reason For Visit: Schizoaffective disorder Interim History: The nursing staff reported the patient needed to be medicated last night and today early in the morning with IM since he was very disorganized. He urinated in the floor and later on he defecated in his room. We are going to try to find his role years order and enforced stat. On interview the patient remains loud disorganized but easily redirectable, grossly disorganized. Mental Status Exam Mental Status Exam Patient Appearance: Disheveled, Inappropriate and Appropriate Patient Orientation: Person Level of Consciousness: Awake Patient Behavior: Guarded and Talkative Mood Description: Nervous Affect Description: Labile Patient Cognition Impaired: Yes Ability to Follow Directions: Fair Speech Pattern: Clear Hallucinations: Auditory Delusions: Paranoid Ideation and Ideas of Reference Thought Process: Distracted and Slowed Thinking Thought Content: positive for [place] and positive for Poverty of Content Judgement: Poor Diagnostics Vital Signs (24Hr): Vital Signs - 24 hr 01/19/24 20:00 01/20/24 08:00 01/20/24 11:29 Respiratory Rate 16 20 18 BMI result Body Mass Index 24.3 Medications Medications Current Medications Acetaminophen (Acetaminophen 325 Mg Tablet) 650 mg PO Q6H PRN PRN Reason: Headache/Pain Mild Scale (1-3) Last Admin: 01/17/24 23:53 Dose: 325 mg Al Hydroxide/Mg Hydroxide (Magnesium Hydrox/Alum Hydrox 30 Ml Oral.Susp) 30 ml PO Q6H PRN PRN Reason: Heartburn/Nausea Amlodipine Besylate (Amlodipine Besylate 10 Mg Tablet) 10 mg PO DAILY [facility]; Protocol Last Admin: 01/20/24 08:30 Dose: Not Given Aripiprazole (Aripiprazole 10 Mg Tablet) 10 mg PO DAILY [facility] Last Admin: 01/20/24 08:30 Dose: Not Given Aspirin (Aspirin Enteric Coated 81 Mg Tablet.Dr) 81 mg PO DAILY [facility] Last Admin: 01/20/24 08:30 Dose: Not Given Atorvastatin Calcium (Atorvastatin Calcium 40 Mg Tablet) 40 mg PO DAILY [facility] Last Admin: 01/20/24 11:19 Dose: Not Given Carbamazepine (Carbamazepine 200 Mg Tablet) 200 mg PO BID [facility] Last Admin: 01/20/24 08:30 Dose: Not Given Diphenhydramine HCl (Diphenhydramine Hcl 25 Mg Capsule) 50 mg PO Q8H PRN PRN Reason: agitation Divalproex Sodium (Divalproex Sodium Sprinkles 125 Mg Cap.) 250 mg PO BID [facility] Last Admin: 01/20/24 08:35 Dose: Not Given Ferrous Sulfate (Ferrous Sulfate 324 Mg Tablet.) 324 mg PO BIDWM [facility] Last Admin: 01/20/24 08:02 Dose: Not Given Gabapentin (Gabapentin 300 Mg Capsule) 300 mg PO TID [facility] Last Admin: 01/20/24 11:23 Dose: Not Given Haloperidol (Haloperidol 5 Mg Tablet) 5 mg PO TID PRN PRN Reason: psychosis,agitation Hydroxyzine HCl (Hydroxyzine Hcl 25 Mg Tablet) 25 mg PO Q6H PRN PRN Reason: Anxiety Last Admin: 01/17/24 04:33 Dose: 25 mg Lorazepam (Lorazepam 1 Mg Tablet) 1 mg PO TID PRN PRN Reason: agitation Magnesium Hydroxide (Milk Of Magnesia 30 Ml Oral.Susp) 30 ml PO DAILY PRN PRN Reason: Constipation Nicotine Polacrilex (Nicotine Polacrilex 2 Mg Gum) 2 mg BUCCAL Q2H PRN PRN Reason: Nicotine Cravings Trazodone HCl (Trazodone Hcl 50 Mg Tablet) 50 mg PO BEDTIME MRX1 PRN PRN Reason: Insomnia Vitamin D (Cholecalciferol (Vitamin D3) 25 Mcg Tablet) 50 mcg PO DAILY [facility] Last Admin: 01/20/24 08:35 Dose: Not Given Allergies Allergies Allergy/AdvReac Type Severity Reaction Status Date / Time lithium Allergy Unknown Verified 01/13/24 18:08 Assessment & Plan Assessment & Plan (1) Schizoaffective disorder, bipolar type: Status: Acute Code(s): F25.0 - Schizoaffective disorder, bipolar type (2) Hypertension: Status: Acute Code(s): I10 - Essential (primary) hypertension (3) Diabetes mellitus: Status: Acute Code(s): E11.9 - Type 2 diabetes mellitus without complications Plan 68 yo from a skilled nursing with chronic psychotic disorder, refusing medication , elevated bp and disorganized and agitated behavior requiring psychiatric hospitalization and treatment not competent to sign cv. 01/14 continue to follow - gave lambs warning today- and he says the exercise teacher will be a she- still refusing medications and quite psychotic takes alot of redirection to settle him poor adls- 01/15- Refuses meds, refuses hospitalist consult-second day File for Section Seven consideration on 01/17. Provide care as he will allow. 01/16: Depakote 250 mg bid Haldol, Lorazepam, Benadryl prn Section 7 to be filed 01/17 Message left for guardian. 01/17: Section Seven filed. Court scheduled 01/26/24 Pt continues to refuse medicaitons. He is in need of full assist with ADL's and is incontinent. Pt transferred to [facility] this afternoon. 01/19/2024 Patient pending civil commitment loud agitated would not engage in any conversation with this global technical writer non informational healing agitated verbally aggressive. Every attempt being made to get a copy of the patient's Servin order unclear why this has been so problematic. Encourage food and fluids 01/19 continue same treatment Reason for continued inpatient stay Substantial Risk for: inability to function, rapid decompensation and med/psych decompensation Time Spent With Patient Time: Total time managing care of this patient today __20__ minutes.
[2024-01-20] MEDS: HaloperidoL 5 MG TABLET PO (18:34)
[2024-01-20 20:00] VITALS: RESP 16
--- NOTE | 2024-01-20 20:26 | PM.EVENT ---
Event Note Date of Service: 01/19/24 Event Note: The patient was evaluated following the administration of a chemical restraint ordered by the unit provider. During the assessment, the patient was observed standing in the room but speaking in a psychotic manner. The patient declined a physical examination but appeared to be in no apparent distress. The restraint was initiated as prescribed, and the patient was evaluated within one hour of its implementation. Late entry note for 01/19/24 Time Spent With Patient Time: Total time managing care of this patient today ____ minutes.
[2024-01-21] MEDS: diphenhydrAMINE HCL 25 MG CAPSULE 50 MG PO ×2 (01:57→21:33)
[2024-01-21] MEDS: HaloperidoL 5 MG TABLET PO ×2 (01:57→21:32)
[2024-01-21] MEDS: LORazepam 1 MG TABLET PO ×2 (01:57→21:32)
[2024-01-21 20:00] VITALS: BP 126/64; PULSE 67; TEMP 36.8; O2SAT 100
--- NOTE | 2024-01-21 20:02 | P.PNPSI_ITS ---
Subjective Subjective Date of Service: 01/21/24 Reason For Visit: Schizoaffective disorder Interim History: Patient with periods of severe agitation wandering into people's rooms threatening agitated has required close observation in order to stay out of other's rooms was not physically aggressive today. There is reportedly a Servin order the patient clearly needs treatment for psychosis and what appears to be manic agitation Mental Status Exam Mental Status Exam Narrative: Patient disheveled than pacing. None linear conversation. Seen wandering on the unit needs frequent redirection walking into patient's rooms yelling talking about food and alcohol. Poorly informational [place] loud difficult to understand mood angry intermittently euphoric labile intrusive impulsive does not answer specific questions Diagnostics Vital Signs (24Hr): BMI result Body Mass Index 24.3 Medications Medications Current Medications Acetaminophen (Acetaminophen 325 Mg Tablet) 650 mg PO Q6H PRN PRN Reason: Headache/Pain Mild Scale (1-3) Last Admin: 01/17/24 23:53 Dose: 325 mg Al Hydroxide/Mg Hydroxide (Magnesium Hydrox/Alum Hydrox 30 Ml Oral.Susp) 30 ml PO Q6H PRN PRN Reason: Heartburn/Nausea Amlodipine Besylate (Amlodipine Besylate 10 Mg Tablet) 10 mg PO DAILY [facility]; Protocol Last Admin: 01/21/24 09:21 Dose: Not Given Aripiprazole (Aripiprazole 10 Mg Tablet) 10 mg PO DAILY [facility] Last Admin: 01/21/24 09:22 Dose: Not Given Aspirin (Aspirin Enteric Coated 81 Mg Tablet.) 81 mg PO DAILY [facility] Last Admin: 01/21/24 09:22 Dose: Not Given Atorvastatin Calcium (Atorvastatin Calcium 40 Mg Tablet) 40 mg PO DAILY [facility] Last Admin: 01/21/24 09:22 Dose: Not Given Carbamazepine (Carbamazepine 200 Mg Tablet) 200 mg PO BID [facility] Last Admin: 01/21/24 09:22 Dose: Not Given Diphenhydramine HCl (Diphenhydramine Hcl 25 Mg Capsule) 50 mg PO Q8H PRN PRN Reason: agitation Last Admin: 01/21/24 01:57 Dose: 50 mg Divalproex Sodium (Divalproex Sodium Sprinkles 125 Mg Cap.) 250 mg PO BID [facility] Last Admin: 01/21/24 09:23 Dose: Not Given Ferrous Sulfate (Ferrous Sulfate 324 Mg Tablet.) 324 mg PO BIDWM [facility] Last Admin: 01/21/24 15:43 Dose: Not Given Gabapentin (Gabapentin 300 Mg Capsule) 300 mg PO TID [facility] Last Admin: 01/21/24 14:02 Dose: Not Given Haloperidol (Haloperidol 5 Mg Tablet) 5 mg PO TID PRN PRN Reason: psychosis,agitation Last Admin: 01/21/24 01:57 Dose: 5 mg Hydroxyzine HCl (Hydroxyzine Hcl 25 Mg Tablet) 25 mg PO Q6H PRN PRN Reason: Anxiety Last Admin: 01/17/24 04:33 Dose: 25 mg Lorazepam (Lorazepam 1 Mg Tablet) 1 mg PO TID PRN PRN Reason: agitation Last Admin: 01/21/24 01:57 Dose: 1 mg Magnesium Hydroxide (Milk Of Magnesia 30 Ml Oral.Susp) 30 ml PO DAILY PRN PRN Reason: Constipation Nicotine Polacrilex (Nicotine Polacrilex 2 Mg Gum) 2 mg BUCCAL Q2H PRN PRN Reason: Nicotine Cravings Trazodone HCl (Trazodone Hcl 50 Mg Tablet) 50 mg PO BEDTIME MRX1 PRN PRN Reason: Insomnia Vitamin D (Cholecalciferol (Vitamin D3) 25 Mcg Tablet) 50 mcg PO DAILY [facility] Last Admin: 01/21/24 09:22 Dose: Not Given Allergies Allergies Allergy/AdvReac Type Severity Reaction Status Date / Time lithium Allergy Unknown Verified 01/13/24 18:08 Assessment & Plan Assessment & Plan (1) Schizoaffective disorder, bipolar type: Status: Acute Code(s): F25.0 - Schizoaffective disorder, bipolar type (2) Hypertension: Status: Acute Code(s): I10 - Essential (primary) hypertension (3) Diabetes mellitus: Status: Acute Code(s): E11.9 - Type 2 diabetes mellitus without complications Plan 68 yo from a care home with chronic psychotic disorder, refusing medication , elevated bp and disorganized and agitated behavior requiring psychiatric hospitalization and treatment not competent to sign cv. 01/14 continue to follow - gave lambs warning today- and he says the apparel designer will be a she- still refusing medications and quite psychotic takes alot of redirection to settle him poor adls- 01/15- Refuses meds, refuses hospitalist consult-second day File for Section Seven consideration on 01/17. Provide care as he will allow. 01/16: Depakote 250 mg bid Haldol, Lorazepam, Benadryl prn Section 7 to be filed 01/17 Message left for guardian. 01/17: Section [address] filed. [address] scheduled 01/26/24 Pt continues to refuse medicaitons. He is in need of full assist with ADL's and is incontinent. Pt transferred [facility] this afternoon. 01/19/2024 Patient pending civil commitment loud agitated would not engage in any conversation with this aligner typewriter non informational healing agitated verbally aggressive. Every attempt being made to get a copy of the patient's Servin order unclear why this has been so problematic. Encourage food and fluids 01/19 continue same treatment 01/21/24 Patient labile agitated intrusive close labs ordered in order to per to protect the community patient wandering into patient's rooms intrusive impulsive laying on another person's bed. Often hostile agitated posturing at times we are still pending copy of reported Servin order encourage p.o. compliance Reason for continued inpatient stay Substantial Risk for: harm to others, inability to function and rapid decompensation Time Spent With Patient Time: Total time managing care of this patient today ____ minutes.
[2024-01-21] MEDS: Divalproex Sodium Sprinkles 125 MG CAP.DR.SPR 250 MG PO (21:00)
[2024-01-21] MEDS: Gabapentin 300 MG CAPSULE PO (21:03)
[2024-01-21] MEDS: hydrOXYzine HCL 25 MG TABLET PO (21:32)
[2024-01-22] MEDS: LORazepam 1 MG TABLET 2 MG PO ×2 (03:49→10:47)
[2024-01-22] MEDS: HaloperidoL 5 MG TABLET 10 MG PO (03:49)
[2024-01-22] MEDS: diphenhydrAMINE HCL 25 MG CAPSULE 50 MG PO ×3 (03:49→21:25)
[2024-01-22 08:00] VITALS: BP 120/63; PULSE 97; RESP 18; TEMP 36.7; O2SAT 100
[2024-01-22 09:28] VITALS: BP 120/63
--- NOTE | 2024-01-22 10:27 | P.PNPSI_ITS ---
Subjective Subjective Date of Service: 01/22/24 Reason For Visit: Schizoaffective disorder Subjective Notes: Section 7 Healthcare Proxy: No Interim History: Patient has been loud intermittently verbally aggressive intrusive having difficulties with any kind of boundaries. Smashing in his bathroom door over and over again going into other people's rooms he is on close observation try to keep him out of other's rooms and maintain the safety of the unit. He did go into someone's room and jumped on their bed where they were in it no injury was noted patient was then given p.o. antipsychotic Ativan and Benadryl which he took willingly. He is pending commitment there is a question about whether or not he has a [facility] Mental Status Exam Mental Status Exam Narrative: Patient disheveled than pacing. None linear conversation. Seen wandering on the unit needs frequent redirection walking into patient's rooms , seems to enjoy being provocative at times response to redirection . Would not engage in conversation regarding going into other people's rooms jumping on someone's bed impulse control poor judgment markedly poor labile intrusive impulsive does not answer specific questions ongoing. We will not engage in conversation regarding illness or behavior shook his head no regarding SI or HI affect ranging from euphoric to angry Diagnostics Vital Signs (24Hr): Vital Signs - 24 hr 01/21/24 20:00 01/22/24 08:00 01/22/24 09:28 Temperature 98.2 F 98.0 F Pulse Rate 67 97 Respiratory Rate 18 Blood Pressure 126/64 120/63 120/63 Pulse Oximetry 100 100 Oxygen Delivery Method Room Air Room Air BMI result Body Mass Index 24.3 Medications Medications Current Medications Acetaminophen (Acetaminophen 325 Mg Tablet) 650 mg PO Q6H PRN PRN Reason: Headache/Pain Mild Scale (1-3) Last Admin: 01/17/24 23:53 Dose: 325 mg Al Hydroxide/Mg Hydroxide (Magnesium Hydrox/Alum Hydrox 30 Ml Oral.Susp) 30 ml PO Q6H PRN PRN Reason: Heartburn/Nausea Amlodipine Besylate (Amlodipine Besylate 10 Mg Tablet) 10 mg PO DAILY [facility]; Protocol Last Admin: 01/22/24 09:28 Dose: Not Given Aripiprazole (Aripiprazole 10 Mg Tablet) 10 mg PO DAILY [facility] Last Admin: 01/22/24 09:28 Dose: Not Given Aspirin (Aspirin Enteric Coated 81 Mg Tablet.) 81 mg PO DAILY [facility] Last Admin: 01/22/24 09:28 Dose: Not Given Atorvastatin Calcium (Atorvastatin Calcium 40 Mg Tablet) 40 mg PO DAILY [facility] Last Admin: 01/22/24 09:28 Dose: Not Given Carbamazepine (Carbamazepine 200 Mg Tablet) 200 mg PO BID [facility] Last Admin: 01/22/24 09:28 Dose: Not Given Diphenhydramine HCl (Diphenhydramine Hcl 25 Mg Capsule) 50 mg PO Q8H PRN PRN Reason: agitation Last Admin: 01/21/24 21:33 Dose: 50 mg Diphenhydramine HCl (Diphenhydramine Hcl 25 Mg Capsule) 50 mg PO ONCE ONE Stop: 01/22/24 10:23 Divalproex Sodium (Divalproex Sodium Sprinkles 125 Mg Cap.) 250 mg PO BID [facility] Last Admin: 01/22/24 09:29 Dose: Not Given Ferrous Sulfate (Ferrous Sulfate 324 Mg Tablet.) 324 mg PO BIDWM [facility] Last Admin: 01/22/24 09:27 Dose: Not Given Gabapentin (Gabapentin 300 Mg Capsule) 300 mg PO TID [facility] Last Admin: 01/22/24 09:29 Dose: Not Given Haloperidol (Haloperidol 5 Mg Tablet) 5 mg PO TID PRN PRN Reason: psychosis,agitation Last Admin: 01/21/24 21:32 Dose: 5 mg Haloperidol Lactate (Haloperidol Lactate Oral Conc 10 Mg/5 Ml Oral.Conc) 10 mg PO ONCE ONE Stop: 01/22/24 10:26 Hydroxyzine HCl (Hydroxyzine Hcl 25 Mg Tablet) 25 mg PO Q6H PRN PRN Reason: Anxiety Last Admin: 01/21/24 21:32 Dose: 25 mg Lorazepam (Lorazepam 1 Mg Tablet) 1 mg PO TID PRN PRN Reason: agitation Last Admin: 01/21/24 21:32 Dose: 1 mg Lorazepam (Lorazepam 1 Mg Tablet) 2 mg PO ONCE ONE Stop: 01/22/24 10:23 Magnesium Hydroxide (Milk Of Magnesia 30 Ml Oral.Susp) 30 ml PO DAILY PRN PRN Reason: Constipation Nicotine Polacrilex (Nicotine Polacrilex 2 Mg Gum) 2 mg BUCCAL Q2H PRN PRN Reason: Nicotine Cravings Trazodone HCl (Trazodone Hcl 50 Mg Tablet) 50 mg PO BEDTIME MRX1 PRN PRN Reason: Insomnia Vitamin D (Cholecalciferol (Vitamin D3) 25 Mcg Tablet) 50 mcg PO DAILY [facility] Last Admin: 01/22/24 09:29 Dose: Not Given Allergies Allergies Allergy/AdvReac Type Severity Reaction Status Date / Time lithium Allergy Unknown Verified 01/13/24 18:08 Assessment & Plan Assessment & Plan (1) Schizoaffective disorder, bipolar type: Status: Acute Code(s): F25.0 - Schizoaffective disorder, bipolar type (2) Hypertension: Status: Acute Code(s): I10 - Essential (primary) hypertension (3) Diabetes mellitus: Status: Acute Code(s): E11.9 - Type 2 diabetes mellitus without complications Plan 68 yo from a assisted with chronic psychotic disorder, refusing medication , elevated bp and disorganized and agitated behavior requiring psychiatric hospitalization and treatment not competent to sign cv. 01/14 continue to follow - gave lambs warning today- and he says the horticultural farm manager will be a she- still refusing medications and quite psychotic takes alot of redirection to settle him poor adls- 01/15- Refuses meds, refuses hospitalist consult-second day File for Section Seven consideration on 01/17. Provide care as he will allow. 01/16: Depakote 250 mg bid Haldol, Lorazepam, Benadryl prn Section 7 to be filed 01/17 Message left for guardian. 01/17: Section [address] filed. . Court scheduled 01/26/24 Pt continues to refuse medicaitons. He is in need of full assist with ADL's and is incontinent. Pt transferred to [facility] this afternoon. 01/19/2024 Patient pending civil commitment loud agitated would not engage in any conversation with this brief writer non informational healing agitated verbally aggressive. Every attempt being made to get a copy of the patient's Servin order unclear why this has been so problematic. Encourage food and fluids 01/19 continue same treatment 01/21/24 Patient labile agitated intrusive close labs ordered in order to per to protect the community patient wandering into patient's rooms intrusive impulsive laying on another person's bed. Often hostile agitated posturing at times we are still pending copy of reported Servin order encourage p.o. compliance 01/22/2024 Patient did require physical hold escort him out of a room that he jumped in other patient's room and on their bed while there were in it. There was no physical harm and the patient did leave the room his markedly impulsive with poor judgment remains on close observation has intermittently taken Haldol liquid pending civil commitment treatment plan there is a question of Servin order Reason for continued inpatient stay Substantial Risk for: harm to others and inability to function Time Spent With Patient Time: Total time managing care of this patient today ____ minutes.
[2024-01-22] MEDS: LORazepam 1 MG TABLET PO ×2 (10:31→21:24)
[2024-01-22] MEDS: Haloperidol Lactate Oral Conc 10 MG/5 ML ORAL.CONC PO (10:45)
[2024-01-22] MEDS: Gabapentin 300 MG CAPSULE PO ×2 (15:04→19:49)
[2024-01-22] MEDS: Haloperidol Lactate Oral Conc 10 MG/5 ML ORAL.CONC 5 MG PO ×2 (15:06→21:25)
--- NOTE | 2024-01-22 19:23 | PC.NURSE ---
Patient was on close observation, uncooperative, resistive to care. At one point he jumped on another patient bed while the patient was resting there. Staff members removed Bret from bed and room. No injury noted. Medical Provider notified.
[2024-01-22 19:36] VITALS: BP 123/57; PULSE 97; RESP 18; TEMP 36.3; O2SAT 98
[2024-01-22] MEDS: carBAMazepine 200 MG TABLET PO (19:49)
[2024-01-22] MEDS: hydrOXYzine HCL 25 MG TABLET PO (19:49)
[2024-01-22] MEDS: traZODone HCL 50 MG TABLET PO (19:49)
[2024-01-22] MEDS: Divalproex Sodium Sprinkles 125 MG CAP.DR.SPR 250 MG PO (19:49)
--- NOTE | 2024-01-22 20:31 | HO.BHRESTREX ---
Behavioral Restraint Exam Behavioral Health Restraint Exam Type of Restraint: Physical Hold Reason for Restraint: Substantial Risk of Harm to Others Medical Concerns for Restraint: No medical concerns, pt w/o acute inj / no noted resp/VS abnormalities Behavioral Assessment / Plan: Concerns / further recommendations, explain below: Comment: Patient with mostly untreated psychotic agitation intrusive behavior went into a patient's room and jumped on her bed why she was in it. Patient on geriatric unit with vulnerable patients he is on close observation encourage medication was escorted out of the room Offered medication for manic psychosis
[2024-01-23] MEDS: traZODone HCL 50 MG TABLET PO ×2 (02:47→20:25)
[2024-01-23] MEDS: hydrOXYzine HCL 25 MG TABLET PO ×2 (02:47→13:24)
[2024-01-23] MEDS: HaloperidoL 5 MG TABLET PO (05:24)
[2024-01-23] MEDS: LORazepam 1 MG TABLET 2 MG PO ×2 (05:24→14:24)
--- NOTE | 2024-01-23 05:29 | PC.NURSE ---
At approximately 0245, patent woke up from sleeping, agitated and pacing. Patient also yelling out and impusively charging at staff members and poor boundaries with peers in the milieu, difficult to redirect. Patient began grabbing random objects throughout the milieu to throw at staff. Provider compensation and hris analyst notified for medication as all PRN's had been administered throughout the evening. Patient accepted mediation without issue.
--- NOTE | 2024-01-23 08:30 | HO.PSYCHPN ---
Subjective Subjective Date of Service: 01/23/24 Reason For Visit: Schizoaffective disorder Subjective Notes: Servin Order and Conditional Voluntary Interim History: The nursing staff reported the patient had been psychotic and agitated impulsive with poor boundaries. He had been nonsensical at times. On one-to-one. Apparently he takes his medications only with ingrid gracia or coffee. He had been medicated several times IM over the weekend. On interview the patient was sedated in the morning but more awake in the afternoon. He had been very agitated and oppositional at times. We added Haldol 5 p.o. t.i.d. p.r.n. agitation. We have increased his Abilify up to 15 mg. Mental Status Exam Mental Status Exam Patient Appearance: Appropriate Patient Orientation: Person and Situation Level of Consciousness: Awake and Appropriate Patient Behavior: Guarded and Passive Mood Description: Withdrawn Affect Description: Calm Patient Cognition Impaired: Yes Ability to Follow Directions: Good Speech Pattern: Clear Hallucinations: None Delusions: Not Present Thought Process: Distracted and Slowed Thinking Thought Content: positive for [place] and positive for Poverty of Content Judgement: Poor Diagnostics Vital Signs (24Hr): Vital Signs - 24 hr 01/22/24 09:28 01/22/24 19:36 Temperature 97.4 F Pulse Rate 97 Respiratory Rate 18 Blood Pressure 120/63 123/57 L Pulse Oximetry 98 Oxygen Delivery Method Room Air BMI result Body Mass Index 24.3 Medications Medications Current Medications Acetaminophen (Acetaminophen 325 Mg Tablet) 650 mg PO Q6H PRN PRN Reason: Headache/Pain Mild Scale (1-3) Last Admin: 01/17/24 23:53 Dose: 325 mg Al Hydroxide/Mg Hydroxide (Magnesium Hydrox/Alum Hydrox 30 Ml Oral.Susp) 30 ml PO Q6H PRN PRN Reason: Heartburn/Nausea Amlodipine Besylate (Amlodipine Besylate 10 Mg Tablet) 10 mg PO DAILY [facility]; Protocol Last Admin: 01/22/24 09:28 Dose: Not Given Aripiprazole (Aripiprazole 10 Mg Tablet) 10 mg PO DAILY [facility] Last Admin: 01/22/24 09:28 Dose: Not Given Aspirin (Aspirin Enteric Coated 81 Mg Tablet.) 81 mg PO DAILY [facility] Last Admin: 01/22/24 09:28 Dose: Not Given Atorvastatin Calcium (Atorvastatin Calcium 40 Mg Tablet) 40 mg PO DAILY [facility] Last Admin: 01/22/24 09:28 Dose: Not Given Carbamazepine (Carbamazepine 200 Mg Tablet) 200 mg PO BID [facility] Last Admin: 01/22/24 19:49 Dose: 200 mg Diphenhydramine HCl (Diphenhydramine Hcl 25 Mg Capsule) 50 mg PO Q8H PRN PRN Reason: agitation Last Admin: 01/22/24 21:25 Dose: 50 mg Divalproex Sodium (Divalproex Sodium Sprinkles 125 Mg Cap.Spr) 250 mg PO BID [facility] Last Admin: 01/22/24 19:49 Dose: 250 mg Ferrous Sulfate (Ferrous Sulfate 324 Mg Tablet.Dr) 324 mg PO BIDWM [facility] Last Admin: 01/22/24 17:42 Dose: Not Given Gabapentin (Gabapentin 300 Mg Capsule) 300 mg PO TID [facility] Last Admin: 01/22/24 19:49 Dose: 300 mg Haloperidol Lactate (Haloperidol Lactate Oral Conc 10 Mg/5 Ml Oral.Conc) 5 mg PO TID PRN PRN Reason: Psychosis Last Admin: 01/22/24 21:25 Dose: 5 mg Hydroxyzine HCl (Hydroxyzine Hcl 25 Mg Tablet) 25 mg PO Q6H PRN PRN Reason: Anxiety Last Admin: 01/23/24 02:47 Dose: 25 mg Lorazepam (Lorazepam 1 Mg Tablet) 1 mg PO TID PRN PRN Reason: agitation Last Admin: 01/22/24 21:24 Dose: 1 mg Magnesium Hydroxide (Milk Of Magnesia 30 Ml Oral.Susp) 30 ml PO DAILY PRN PRN Reason: Constipation Nicotine Polacrilex (Nicotine Polacrilex 2 Mg Gum) 2 mg BUCCAL Q2H PRN PRN Reason: Nicotine Cravings Trazodone HCl (Trazodone Hcl 50 Mg Tablet) 50 mg PO BEDTIME MRX1 PRN PRN Reason: Insomnia Last Admin: 01/23/24 02:47 Dose: 50 mg Vitamin D (Cholecalciferol (Vitamin D3) 25 Mcg Tablet) 50 mcg PO DAILY [facility] Last Admin: 01/22/24 09:29 Dose: Not Given Allergies Allergies Allergy/AdvReac Type Severity Reaction Status Date / Time lithium Allergy Unknown Verified 01/13/24 18:08 Assessment & Plan Assessment & Plan (1) Schizoaffective disorder, bipolar type: Status: Acute Code(s): F25.0 - Schizoaffective disorder, bipolar type (2) Hypertension: Status: Acute Code(s): I10 - Essential (primary) hypertension (3) Diabetes mellitus: Status: Acute Code(s): E11.9 - Type 2 diabetes mellitus without complications Plan 68 yo from a senior living with chronic psychotic disorder, refusing medication , elevated bp and disorganized and agitated behavior requiring psychiatric hospitalization and treatment not competent to sign cv. 01/14 continue to follow - gave lambs warning today- and he says the patient safety tech will be a she- still refusing medications and quite psychotic takes alot of redirection to settle him poor adls- 01/15- Refuses meds, refuses hospitalist consult-second day File for Section Seven consideration on 01/17. Provide care as he will allow. 01/16: Depakote 250 mg bid Haldol, Lorazepam, Benadryl prn Section 7 to be filed 01/17 Message left for guardian. 01/17: Section Seven filed. . Court scheduled 01/26/24 Pt continues to refuse medicaitons. He is in need of full assist with ADL's and is incontinent. Pt transferred to [facility] this afternoon. 01/19/2024 Patient pending civil commitment loud agitated would not engage in any conversation with this marketing underwriter non informational healing agitated verbally aggressive. Every attempt being made to get a copy of the patient's Servin order unclear why this has been so problematic. Encourage food and fluids 01/19 continue same treatment 01/21/24 Patient labile agitated intrusive close labs ordered in order to per to protect the community patient wandering into patient's rooms intrusive impulsive laying on another person's bed. Often hostile agitated posturing at times we are still pending copy of reported Servin order encourage p.o. compliance 01/22/2024 Patient did require physical hold escort him out of a room that he jumped in other patient's room and on their bed while there were in it. There was no physical harm and the patient did leave the room his markedly impulsive with poor judgment remains on close observation has intermittently taken Haldol liquid pending civil commitment treatment plan there is a question of Servin order 01/22 The patient had been more agitated. We review his role years order and we are increasing the Abilify up to 50 mg p.o. daily and adding Haldol p.r.n. since it is in his role years order. We needed to give him some p.r.n. at 14:00. Reason for continued inpatient stay Substantial Risk for: inability to function, rapid decompensation and med/psych decompensation Time Spent With Patient Time: Total time managing care of this patient today _20___ minutes.
[2024-01-23] MEDS: Haloperidol Lactate Oral Conc 10 MG/5 ML ORAL.CONC 5 MG PO ×2 (09:30→18:41)
[2024-01-23] MEDS: diphenhydrAMINE HCL 25 MG CAPSULE 50 MG PO ×2 (09:30→18:42)
[2024-01-23] MEDS: LORazepam 1 MG TABLET PO ×2 (09:30→18:48)
[2024-01-23] MEDS: ARIPiprazole 15 MG TABLET PO (09:46)
--- NOTE | 2024-01-23 13:28 | PC.NURSE ---
Patient with increased anxiety, wandering into others rooms and hitting his hand against the chairs after lunch. Atarax 25mg given PO at 1324. Patient remains on 1:1.
[2024-01-23] MEDS: Gabapentin 300 MG CAPSULE PO ×2 (14:25→20:25)
[2024-01-23] MEDS: Divalproex Sodium Sprinkles 125 MG CAP.DR.SPR 250 MG PO (20:25)
[2024-01-23] MEDS: carBAMazepine 200 MG TABLET PO (20:25)
[2024-01-24] MEDS: traZODone HCL 50 MG TABLET PO ×2 (00:08→20:31)
[2024-01-24] MEDS: Haloperidol Lactate Oral Conc 10 MG/5 ML ORAL.CONC 5 MG PO ×2 (00:08→07:44)
[2024-01-24] MEDS: LORazepam 1 MG TABLET PO ×2 (00:08→07:43)
[2024-01-24] MEDS: diphenhydrAMINE HCL 25 MG CAPSULE 50 MG PO ×3 (03:33→20:31)
[2024-01-24] MEDS: Divalproex Sodium Sprinkles 125 MG CAP.DR.SPR 250 MG PO ×2 (07:42→20:31)
[2024-01-24] MEDS: Gabapentin 300 MG CAPSULE PO ×2 (07:43→20:30)
[2024-01-24] MEDS: ARIPiprazole 15 MG TABLET PO (07:43)
[2024-01-24] MEDS: carBAMazepine 200 MG TABLET PO ×2 (07:48→20:41)
[2024-01-24] MEDS: hydrOXYzine HCL 25 MG TABLET PO (08:10)
[2024-01-24] MEDS: HaloperidoL 1 MG TABLET 2 MG PO ×2 (09:28→20:31)
--- NOTE | 2024-01-24 16:04 | HO.PSYCHPN ---
Subjective Subjective Date of Service: 01/24/24 Reason For Visit: Schizoaffective disorder Subjective Notes: Servin Order and Conditional Voluntary Interim History: The nursing staff reported the patient had been grossly disorganized disrobing, he also he the sitter. Screaming and yelling verbally abusive. He had been sexually disinhibited according to staff member who can speak Creole. On interview the patient remains agitated, we are starting the 2nd antipsychotics since his grossly psychotic and not improving with Zyprexa. Mental Status Exam Mental Status Exam Patient Appearance: Inappropriate and Unkempt Patient Orientation: Person Level of Consciousness: Restless Patient Behavior: Guarded Mood Description: Withdrawn Affect Description: Labile Patient Cognition Impaired: Yes Ability to Follow Directions: Poor Speech Pattern: Impoverished Hallucinations: Auditory and Visual Delusions: Paranoid Ideation and Ideas of Reference Thought Process: Illogical and Slowed Thinking Thought Content: positive for [place] and positive for Poverty of Content Judgement: Poor Diagnostics Vital Signs (24Hr): BMI result Body Mass Index 24.3 Medications Medications Current Medications Acetaminophen (Acetaminophen 325 Mg Tablet) 650 mg PO Q6H PRN PRN Reason: Headache/Pain Mild Scale (1-3) Last Admin: 01/17/24 23:53 Dose: 325 mg Al Hydroxide/Mg Hydroxide (Magnesium Hydrox/Alum Hydrox 30 Ml Oral.Susp) 30 ml PO Q6H PRN PRN Reason: Heartburn/Nausea Amlodipine Besylate (Amlodipine Besylate 10 Mg Tablet) 10 mg PO DAILY [facility]; Protocol Last Admin: 01/24/24 09:24 Dose: Not Given Aripiprazole (Aripiprazole 15 Mg Tablet) 15 mg PO DAILY [facility] Last Admin: 01/24/24 07:43 Dose: 15 mg Aspirin (Aspirin Enteric Coated 81 Mg Tablet.Dr) 81 mg PO DAILY [facility] Last Admin: 01/24/24 09:25 Dose: Not Given Atorvastatin Calcium (Atorvastatin Calcium 40 Mg Tablet) 40 mg PO DAILY [facility] Last Admin: 01/24/24 09:25 Dose: Not Given Carbamazepine (Carbamazepine 200 Mg Tablet) 200 mg PO BID [facility] Last Admin: 01/24/24 07:48 Dose: 200 mg Diphenhydramine HCl (Diphenhydramine Hcl 25 Mg Capsule) 50 mg PO Q8H PRN PRN Reason: agitation Last Admin: 01/24/24 13:38 Dose: 50 mg Divalproex Sodium (Divalproex Sodium Sprinkles 125 Mg Cap.) 250 mg PO BID [facility] Last Admin: 01/24/24 07:42 Dose: 250 mg Ferrous Sulfate (Ferrous Sulfate 324 Mg Tablet.Dr) 324 mg PO BIDWM [facility] Last Admin: 01/24/24 08:43 Dose: Not Given Gabapentin (Gabapentin 300 Mg Capsule) 300 mg PO TID [facility] Last Admin: 01/24/24 14:01 Dose: 300 mg Haloperidol (Haloperidol 1 Mg Tablet) 2 mg PO TID [facility] Last Admin: 01/24/24 14:01 Dose: 2 mg Haloperidol Lactate (Haloperidol Lactate Oral Conc 10 Mg/5 Ml Oral.Conc) 5 mg PO TID PRN PRN Reason: Psychosis Last Admin: 01/24/24 07:44 Dose: 5 mg Hydroxyzine HCl (Hydroxyzine Hcl 25 Mg Tablet) 25 mg PO Q6H PRN PRN Reason: Anxiety Last Admin: 01/24/24 08:10 Dose: 25 mg Lorazepam (Lorazepam 1 Mg Tablet) 1 mg PO TID PRN PRN Reason: agitation Last Admin: 01/24/24 07:43 Dose: 1 mg Magnesium Hydroxide (Milk Of Magnesia 30 Ml Oral.Susp) 30 ml PO DAILY PRN PRN Reason: Constipation Nicotine Polacrilex (Nicotine Polacrilex 2 Mg Gum) 2 mg BUCCAL Q2H PRN PRN Reason: Nicotine Cravings Trazodone HCl (Trazodone Hcl 50 Mg Tablet) 50 mg PO BEDTIME MRX1 PRN PRN Reason: Insomnia Last Admin: 01/24/24 00:08 Dose: 50 mg Vitamin D (Cholecalciferol (Vitamin D3) 25 Mcg Tablet) 50 mcg PO DAILY [facility] Last Admin: 01/24/24 08:43 Dose: Not Given Allergies Allergies Allergy/AdvReac Type Severity Reaction Status Date / Time lithium Allergy Unknown Verified 01/13/24 18:08 Assessment & Plan Assessment & Plan (1) Schizoaffective disorder, bipolar type: Status: Acute Code(s): F25.0 - Schizoaffective disorder, bipolar type (2) Hypertension: Status: Acute Code(s): I10 - Essential (primary) hypertension (3) Diabetes mellitus: Status: Acute Code(s): E11.9 - Type 2 diabetes mellitus without complications Plan 68 [facility] from a jail with chronic psychotic disorder, refusing medication , elevated bp and disorganized and agitated behavior requiring psychiatric hospitalization and treatment not competent to sign cv. 01/14 continue to follow - gave lambs warning today- and he says the senior web architect will be a she- still refusing medications and quite psychotic takes alot of redirection to settle him poor adls- 01/15- Refuses meds, refuses hospitalist consult-second day File for Section Seven consideration on 01/17. Provide care as he will allow. 01/16: Depakote 250 mg bid Haldol, Lorazepam, Benadryl prn Section 7 to be filed 01/17 Message left for guardian. 01/17: Section Seven filed. . Court scheduled 01/26/24 Pt continues to refuse medicaitons. He is in need of full assist with ADL's and is incontinent. Pt transferred to [facility] this afternoon. 01/19/2024 Patient pending civil commitment loud agitated would not engage in any conversation with this manual writer non informational healing agitated verbally aggressive. Every attempt being made to get a copy of the patient's Servin order unclear why this has been so problematic. Encourage food and fluids 01/19 continue same treatment 01/21/24 Patient labile agitated intrusive close labs ordered in order to per to protect the community patient wandering into patient's rooms intrusive impulsive laying on another person's bed. Often hostile agitated posturing at times we are still pending copy of reported Servin order encourage p.o. compliance 01/22/2024 Patient did require physical hold escort him out of a room that he jumped in other patient's room and on their bed while there were in it. There was no physical harm and the patient did leave the room his markedly impulsive with poor judgment remains on close observation has intermittently taken Haldol liquid pending civil commitment treatment plan there is a question of Servin order 01/22 The patient had been more agitated. We review his Servin order and we are increasing the Abilify up to 15 mg p.o. daily and adding Haldol p.r.n. since it is in his role years order. We needed to give him some p.r.n. at 14:00. 01/23 The patient is grossly psychotic disrobing and sexually disinhibited we are starting Haldol 10 mg p.o. t.i.d. to target psychosis as per court order treatment over objection order. Reason for continued inpatient stay Substantial Risk for: inability to function, rapid decompensation and med/psych decompensation Time Spent With Patient Time: Total time managing care of this patient today __20__ minutes.
--- NOTE | 2024-01-24 16:13 | PC.NURSE ---
patient woke up from his nap and refused to take his 1500 medications including Haldol. He is swearing and getting irritable. Dr. Watson updated that patient said that he would rather take a shot. New orders being written.
[2024-01-24] MEDS: Haloperidol Lactate 5 MG/ML VIAL IM (16:48)
[2024-01-25] MEDS: traZODone HCL 50 MG TABLET PO ×2 (01:43→20:34)
[2024-01-25] MEDS: hydrOXYzine HCL 25 MG TABLET PO ×3 (01:43→20:34)
[2024-01-25] MEDS: LORazepam 1 MG TABLET PO ×2 (01:43→12:04)
[2024-01-25] MEDS: Haloperidol Lactate Oral Conc 10 MG/5 ML ORAL.CONC 5 MG PO ×2 (01:43→12:08)
[2024-01-25 07:55] VITALS: BP 144/67; PULSE 85; RESP 20; TEMP 36.7; O2SAT 100
--- NOTE | 2024-01-25 07:57 | HO.PSYCHPN ---
Subjective Subjective Date of Service: 01/25/24 Reason For Visit: Schizoaffective disorder Subjective Notes: Servin Order Interim History: The nursing staff reported the patient had been disruptive confrontational with staff. Security needed to be called in the afternoon yesterday to receive his backup IM of Haldol that he requested. He slept 2 hours. He has been in coherent later in the night he was able to come down at least since some music. He got Ativan Haldol and trazodone p.r.n. p.o.. Mental Status Exam Mental Status Exam Patient Appearance: Appropriate Patient Orientation: Person and Situation Level of Consciousness: Awake and Appropriate Patient Behavior: Guarded and Passive Mood Description: Withdrawn Affect Description: Constricted Patient Cognition Impaired: Yes Ability to Follow Directions: Good Speech Pattern: Clear Hallucinations: None Delusions: Paranoid Ideation and Ideas of Reference Thought Process: Distracted and Slowed Thinking Thought Content: positive for [place] and positive for Poverty of Content Judgement: Fair Diagnostics Vital Signs (24Hr): BMI result Body Mass Index 24.3 Medications Medications Current Medications Acetaminophen (Acetaminophen 325 Mg Tablet) 650 mg PO Q6H PRN PRN Reason: Headache/Pain Mild Scale (1-3) Last Admin: 01/17/24 23:53 Dose: 325 mg Al Hydroxide/Mg Hydroxide (Magnesium Hydrox/Alum Hydrox 30 Ml Oral.Susp) 30 ml PO Q6H PRN PRN Reason: Heartburn/Nausea Amlodipine Besylate (Amlodipine Besylate 10 Mg Tablet) 10 mg PO DAILY [facility]; Protocol Last Admin: 01/24/24 09:24 Dose: Not Given Aripiprazole (Aripiprazole 15 Mg Tablet) 15 mg PO DAILY [facility] Last Admin: 01/24/24 07:43 Dose: 15 mg Aspirin (Aspirin Enteric Coated 81 Mg Tablet.Dr) 81 mg PO DAILY [facility] Last Admin: 01/24/24 09:25 Dose: Not Given Atorvastatin Calcium (Atorvastatin Calcium 40 Mg Tablet) 40 mg PO DAILY [facility] Last Admin: 01/24/24 09:25 Dose: Not Given Carbamazepine (Carbamazepine 200 Mg Tablet) 200 mg PO BID [facility] Last Admin: 01/24/24 20:41 Dose: 200 mg Diphenhydramine HCl (Diphenhydramine Hcl 25 Mg Capsule) 50 mg PO Q8H PRN PRN Reason: agitation Last Admin: 01/24/24 20:31 Dose: 50 mg Divalproex Sodium (Divalproex Sodium Sprinkles 125 Mg Cap.) 250 mg PO BID [facility] Last Admin: 01/24/24 20:31 Dose: 250 mg Ferrous Sulfate (Ferrous Sulfate 324 Mg Tablet.Dr) 324 mg PO BIDWM [facility] Last Admin: 01/24/24 16:16 Dose: Not Given Gabapentin (Gabapentin 300 Mg Capsule) 300 mg PO TID [facility] Last Admin: 01/24/24 20:30 Dose: 300 mg Haloperidol (Haloperidol 5 Mg Tablet) 5 mg PO TID [facility] Haloperidol Lactate (Haloperidol Lactate Oral Conc 10 Mg/5 Ml Oral.Conc) 5 mg PO TID PRN PRN Reason: Psychosis Last Admin: 01/25/24 01:43 Dose: 5 mg Haloperidol Lactate (Haloperidol Lactate 5 Mg/Ml Vial) 5 mg IM TID PRN PRN Reason: Refusal of PO Haldol Last Admin: 01/24/24 16:48 Dose: 5 mg Hydroxyzine HCl (Hydroxyzine Hcl 25 Mg Tablet) 25 mg PO Q6H PRN PRN Reason: Anxiety Last Admin: 01/25/24 01:43 Dose: 25 mg Lorazepam (Lorazepam 1 Mg Tablet) 1 mg PO TID PRN PRN Reason: agitation Last Admin: 01/25/24 01:43 Dose: 1 mg Magnesium Hydroxide (Milk Of Magnesia 30 Ml Oral.Susp) 30 ml PO DAILY PRN PRN Reason: Constipation Nicotine Polacrilex (Nicotine Polacrilex 2 Mg Gum) 2 mg BUCCAL Q2H PRN PRN Reason: Nicotine Cravings Trazodone HCl (Trazodone Hcl 50 Mg Tablet) 50 mg PO BEDTIME MRX1 PRN PRN Reason: Insomnia Last Admin: 01/25/24 01:43 Dose: 50 mg Vitamin D (Cholecalciferol (Vitamin D3) 25 Mcg Tablet) 50 mcg PO DAILY [facility] Last Admin: 01/24/24 08:43 Dose: Not Given Allergies Allergies Allergy/AdvReac Type Severity Reaction Status Date / Time lithium Allergy Unknown Verified 01/13/24 18:08 Assessment & Plan Assessment & Plan (1) Schizoaffective disorder, bipolar type: Status: Acute Code(s): F25.0 - Schizoaffective disorder, bipolar type (2) Hypertension: Status: Acute Code(s): I10 - Essential (primary) hypertension (3) Diabetes mellitus: Status: Acute Code(s): E11.9 - Type 2 diabetes mellitus without complications Plan 68 [facility] from a [facility] with chronic psychotic disorder, refusing medication , elevated bp and disorganized and agitated behavior requiring psychiatric hospitalization and treatment not competent to sign cv. 01/14 continue to follow - gave lambs warning today- and he says the paddock judge will be a she- still refusing medications and quite psychotic takes alot of redirection to settle him poor adls- 01/15- Refuses meds, refuses hospitalist consult-second day File for Section Seven consideration on 01/17. Provide care as he will allow. 01/16: Depakote 250 mg bid Haldol, Lorazepam, Benadryl prn Section 7 to be filed 01/17 Message left for guardian. 01/17: Section Seven filed. . Court scheduled 01/26/24 Pt continues to refuse medicaitons. He is in need of full assist with ADL's and is incontinent. Pt transferred to [facility] this afternoon. 01/19/2024 Patient pending civil commitment loud agitated would not engage in any conversation with this health technical writer non informational healing agitated verbally aggressive. Every attempt being made to get a copy of the patient's Servin order unclear why this has been so problematic. Encourage food and fluids 01/19 continue same treatment 01/21/24 Patient labile agitated intrusive close labs ordered in order to per to protect the community patient wandering into patient's rooms intrusive impulsive laying on another person's bed. Often hostile agitated posturing at times we are still pending copy of reported Servin order encourage p.o. compliance 01/22/2024 Patient did require physical hold escort him out of a room that he jumped in other patient's room and on their bed while there were in it. There was no physical harm and the patient did leave the room his markedly impulsive with poor judgment remains on close observation has intermittently taken Haldol liquid pending civil commitment treatment plan there is a question of Servin order 01/22 The patient had been more agitated. We review his Servin order and we are increasing the Abilify up to 15 mg p.o. daily and adding Haldol p.r.n. since it is in his role years order. We needed to give him some p.r.n. at 14:00. 01/23 The patient is grossly psychotic disrobing and sexually disinhibited we are starting Haldol 2 mg p.o. t.i.d. to target psychosis as per court order treatment over objection order. 01/24 The patient remains very agitated and angry disruptive so we are increasing the Haldol from 2 mg to 5 mg p.o. t.i.d. with a backup IM if the patient refused as per court order. Reason for continued inpatient stay Substantial Risk for: inability to function, rapid decompensation and med/psych decompensation Time Spent With Patient Time: Total time managing care of this patient today _20___ minutes.
[2024-01-25] MEDS: diphenhydrAMINE HCL 25 MG CAPSULE 50 MG PO ×2 (08:21→20:34)
[2024-01-25] MEDS: HaloperidoL 5 MG TABLET PO ×3 (08:23→20:34)
[2024-01-25] MEDS: Gabapentin 300 MG CAPSULE PO ×2 (16:55→20:34)
[2024-01-25] MEDS: Divalproex Sodium Sprinkles 125 MG CAP.DR.SPR 250 MG PO (20:34)
[2024-01-25] MEDS: carBAMazepine 200 MG TABLET PO (20:34)
[2024-01-26 07:00] VITALS: BMI 24.8
[2024-01-26 08:00] VITALS: RESP 18
[2024-01-26] MEDS: Haloperidol Lactate 5 MG/ML VIAL IM (08:14)
[2024-01-26] MEDS: LORazepam 1 MG TABLET PO (10:07)
--- NOTE | 2024-01-26 13:02 | P.PNPSI_ITS ---
Subjective Subjective Date of Service: 01/26/24 Reason For Visit: Schizoaffective disorder Subjective Notes: Gareth Order, Section 7 and Section 8 Interim History: The nursing staff reported the patient received IM backup today in the morning and now today at 02:00 o'clock since he refused his Haldol p.o.. We needed to have a physical hold for the medication. He had been [place] disruptive. The social welfare clerk reported that we are contacting the guardian apparently the sister has not been involved probably he can go back to the subacute rehab that he was before. On interview the patient is very agitated. Mental Status Exam Mental Status Exam Patient Appearance: Appropriate Patient Orientation: Person and Situation Level of Consciousness: Awake and Appropriate Patient Behavior: Guarded and Passive Mood Description: Withdrawn Affect Description: Constricted Patient Cognition Impaired: Yes Ability to Follow Directions: Good Speech Pattern: Clear Hallucinations: None Delusions: Not Present Thought Process: Distracted and Slowed Thinking Thought Content: positive for [place] and positive for Poverty of Content Judgement: Poor Diagnostics Vital Signs (24Hr): Vital Signs - 24 hr 01/26/24 08:00 Respiratory Rate 18 BMI result Body Mass Index 24.8 Medications Medications Current Medications Acetaminophen (Acetaminophen 325 Mg Tablet) 650 mg PO Q6H PRN PRN Reason: Headache/Pain Mild Scale (1-3) Last Admin: 01/17/24 23:53 Dose: 325 mg Al Hydroxide/Mg Hydroxide (Magnesium Hydrox/Alum Hydrox 30 Ml Oral.Susp) 30 ml PO Q6H PRN PRN Reason: Heartburn/Nausea Amlodipine Besylate (Amlodipine Besylate 10 Mg Tablet) 10 mg PO DAILY [facility]; Protocol Last Admin: 01/26/24 09:45 Dose: Not Given Aripiprazole (Aripiprazole 15 Mg Tablet) 15 mg PO DAILY [facility] Last Admin: 01/26/24 08:25 Dose: Not Given Aspirin (Aspirin Enteric Coated 81 Mg Tablet.Dr) 81 mg PO DAILY [facility] Last Admin: 01/26/24 08:25 Dose: Not Given Atorvastatin Calcium (Atorvastatin Calcium 40 Mg Tablet) 40 mg PO DAILY [facility] Last Admin: 01/26/24 08:25 Dose: Not Given Carbamazepine (Carbamazepine 200 Mg Tablet) 200 mg PO BID [facility] Last Admin: 01/26/24 08:25 Dose: Not Given Diphenhydramine HCl (Diphenhydramine Hcl 25 Mg Capsule) 50 mg PO Q8H PRN PRN Reason: agitation Last Admin: 01/25/24 20:34 Dose: 50 mg Divalproex Sodium (Divalproex Sodium Sprinkles 125 Mg Cap.) 250 mg PO BID [facility] Last Admin: 01/26/24 08:27 Dose: Not Given Ferrous Sulfate (Ferrous Sulfate 324 Mg Tablet.) 324 mg PO BIDWM [facility] Last Admin: 01/26/24 08:23 Dose: Not Given Gabapentin (Gabapentin 300 Mg Capsule) 300 mg PO TID [facility] Last Admin: 01/26/24 08:28 Dose: Not Given Haloperidol (Haloperidol 5 Mg Tablet) 5 mg PO TID [facility] Last Admin: 01/26/24 08:29 Dose: Not Given Haloperidol Lactate (Haloperidol Lactate Oral Conc 10 Mg/5 Ml Oral.Conc) 5 mg PO TID PRN PRN Reason: Psychosis Last Admin: 01/25/24 12:08 Dose: 5 mg Haloperidol Lactate (Haloperidol Lactate 5 Mg/Ml Vial) 5 mg IM TID PRN PRN Reason: Refusal of PO Haldol Last Admin: 01/26/24 08:14 Dose: 5 mg Hydroxyzine HCl (Hydroxyzine Hcl 25 Mg Tablet) 25 mg PO Q6H PRN PRN Reason: Anxiety Last Admin: 01/25/24 20:34 Dose: 25 mg Lorazepam (Lorazepam 1 Mg Tablet) 1 mg PO TID PRN PRN Reason: agitation Last Admin: 01/26/24 10:07 Dose: 1 mg Magnesium Hydroxide (Milk Of Magnesia 30 Ml Oral.Susp) 30 ml PO DAILY PRN PRN Reason: Constipation Nicotine Polacrilex (Nicotine Polacrilex 2 Mg Gum) 2 mg BUCCAL Q2H PRN PRN Reason: Nicotine Cravings Trazodone HCl (Trazodone Hcl 50 Mg Tablet) 50 mg PO BEDTIME MRX1 PRN PRN Reason: Insomnia Last Admin: 01/25/24 20:34 Dose: 50 mg Vitamin D (Cholecalciferol (Vitamin D3) 25 Mcg Tablet) 50 mcg PO DAILY [facility] Last Admin: 01/26/24 08:27 Dose: Not Given Allergies Allergies Allergy/AdvReac Type Severity Reaction Status Date / Time lithium Allergy Unknown Verified 01/13/24 18:08 Assessment & Plan Assessment & Plan (1) Schizoaffective disorder, bipolar type: Status: Acute Code(s): F25.0 - Schizoaffective disorder, bipolar type (2) Hypertension: Status: Acute Code(s): I10 - Essential (primary) hypertension (3) Diabetes mellitus: Status: Acute Code(s): E11.9 - Type 2 diabetes mellitus without complications Plan 68 yo from a prison with chronic psychotic disorder, refusing medication , elevated bp and disorganized and agitated behavior requiring psychiatric hospitalization and treatment not competent to sign cv. 01/14 continue to follow - gave lambs warning today- and he says the senior client advisor will be a she- still refusing medications and quite psychotic takes alot of redirection to settle him poor adls- 01/15- Refuses meds, refuses hospitalist consult-second day File for Section Seven consideration on 01/17. Provide care as he will allow. 01/16: Depakote 250 mg bid Haldol, Lorazepam, Benadryl prn Section 7 to be filed 01/17 Message left for guardian. 01/17: Section [address] filed. . Court scheduled 01/26/24 Pt continues to refuse medicaitons. He is in need of full assist with ADL's and is incontinent. Pt transferred to [facility] this afternoon. 01/19/2024 Patient pending civil commitment loud agitated would not engage in any conversation with this movie writer non informational healing agitated verbally aggressive. Every attempt being made to get a copy of the patient's Servin order unclear why this has been so problematic. Encourage food and fluids 01/19 continue same treatment 01/21/24 Patient labile agitated intrusive close labs ordered in order to per to protect the community patient wandering into patient's rooms intrusive impulsive laying on another person's bed. Often hostile agitated posturing at times we are still pending copy of reported Servin order encourage p.o. compliance 01/22/2024 Patient did require physical hold escort him out of a room that he jumped in other patient's room and on their bed while there were in it. There was no physical harm and the patient did leave the room his markedly impulsive with poor judgment remains on close observation has intermittently taken Haldol liquid pending civil commitment treatment plan there is a question of Servin order 01/22 The patient had been more agitated. We review his Servin order and we are increasing the Abilify up to 15 mg p.o. daily and adding Haldol p.r.n. since it is in his role years order. We needed to give him some p.r.n. at 14:00. 01/23 The patient is grossly psychotic disrobing and sexually disinhibited we are starting Haldol 2 mg p.o. t.i.d. to target psychosis as per court order treatment over objection order. 01/24 The patient remains very agitated and angry disruptive so we are increasing the Haldol from 2 mg to 5 mg p.o. t.i.d. with a backup IM if the patient refused as per court order. 01/25 we have increased the Haldol but still he is very psychotic and restless. Today he refused his blood work. He needed to be physically held twice. Reason for continued inpatient stay Substantial Risk for: inability to function, rapid decompensation and med/psych decompensation Time Spent With Patient Time: Total time managing care of this patient today __20__ minutes.
--- NOTE | 2024-01-26 14:42 | PC.NURSE ---
Patient uncooperative, refused po meds at am. Has Servin order. Patient offered quiet time, quiet space, music. Educated about importance of the medications. Educated about Servin order. Pt continued being agitated, fighting the staff. Security called, IM medication administered with the help of two security staff.
[2024-01-26] MEDS: Gabapentin 300 MG CAPSULE PO ×2 (15:33→20:13)
[2024-01-26] MEDS: HaloperidoL 5 MG TABLET PO ×2 (15:35→20:13)
[2024-01-26 20:00] VITALS: BP 138/78; PULSE 88; RESP 18; TEMP 36.7; O2SAT 99
[2024-01-26] MEDS: Divalproex Sodium Sprinkles 125 MG CAP.DR.SPR 250 MG PO (20:13)
[2024-01-26] MEDS: carBAMazepine 200 MG TABLET PO (20:13)
[2024-01-26] MEDS: hydrOXYzine HCL 25 MG TABLET PO (20:13)
[2024-01-26] MEDS: traZODone HCL 50 MG TABLET PO (20:13)
[2024-01-27] MEDS: LORazepam 1 MG TABLET PO ×3 (02:35→14:22)
[2024-01-27] MEDS: diphenhydrAMINE HCL 25 MG CAPSULE 50 MG PO ×2 (02:36→14:22)
[2024-01-27] MEDS: Haloperidol Lactate Oral Conc 10 MG/5 ML ORAL.CONC 5 MG PO ×3 (02:36→14:21)
--- NOTE | 2024-01-27 07:42 | HO.PSYCHPN ---
Subjective Subjective Date of Service: 01/27/24 Reason For Visit: Schizoaffective disorder Subjective Notes: Conditional Voluntary Healthcare Proxy: Yes Interim History: The nursing staff reported the patient had been compliant with medications with a lot of encouragement. Yesterday we needed to put Haldol IM backup as per court order. On interview the patient remains grossly disorganized, we have been titrating his haloperidol up to 15 mg p.o. t.i.d.. No side effects with Abilify increased to 15 mg a few days ago. We are considering to increased up to 20 mg due to the exacerbation of psychosis of the patient. Mental Status Exam Mental Status Exam Patient Appearance: Inappropriate and Unkempt Patient Orientation: Person and Situation Level of Consciousness: Awake and Appropriate Patient Behavior: Guarded and Passive Mood Description: Withdrawn Affect Description: Labile Patient Cognition Impaired: Yes Ability to Follow Directions: Poor Speech Pattern: Rapid and Loud Hallucinations: Auditory Delusions: Paranoid Ideation and Ideas of Reference Thought Process: Distracted and Slowed Thinking Thought Content: positive for [place] and positive for Poverty of Content Judgement: Poor Diagnostics Vital Signs (24Hr): Vital Signs - 24 hr 01/26/24 08:00 01/26/24 20:00 Temperature 98.0 F Pulse Rate 88 Respiratory Rate 18 18 Blood Pressure 138/78 Pulse Oximetry 99 Oxygen Delivery Method Room Air BMI result Body Mass Index 24.8 Medications Medications Current Medications Acetaminophen (Acetaminophen 325 Mg Tablet) 650 mg PO Q6H PRN PRN Reason: Headache/Pain Mild Scale (1-3) Last Admin: 01/17/24 23:53 Dose: 325 mg Al Hydroxide/Mg Hydroxide (Magnesium Hydrox/Alum Hydrox 30 Ml Oral.Susp) 30 ml PO Q6H PRN PRN Reason: Heartburn/Nausea Amlodipine Besylate (Amlodipine Besylate 10 Mg Tablet) 10 mg PO DAILY [facility]; Protocol Last Admin: 01/26/24 09:45 Dose: Not Given Aripiprazole (Aripiprazole 15 Mg Tablet) 15 mg PO DAILY [facility] Last Admin: 01/26/24 08:25 Dose: Not Given Aspirin (Aspirin Enteric Coated 81 Mg Tablet.) 81 mg PO DAILY [facility] Last Admin: 01/26/24 08:25 Dose: Not Given Atorvastatin Calcium (Atorvastatin Calcium 40 Mg Tablet) 40 mg PO DAILY [facility] Last Admin: 01/26/24 08:25 Dose: Not Given Carbamazepine (Carbamazepine 200 Mg Tablet) 200 mg PO BID [facility] Last Admin: 01/26/24 20:13 Dose: 200 mg Diphenhydramine HCl (Diphenhydramine Hcl 25 Mg Capsule) 50 mg PO Q8H PRN PRN Reason: agitation Last Admin: 01/27/24 02:36 Dose: 50 mg Divalproex Sodium (Divalproex Sodium Sprinkles 125 Mg Cap.Dr.Spr) 250 mg PO BID [facility] Last Admin: 01/26/24 20:13 Dose: 250 mg Ferrous Sulfate (Ferrous Sulfate 324 Mg Tablet.Dr) 324 mg PO BIDWM [facility] Last Admin: 01/26/24 17:53 Dose: Not Given Gabapentin (Gabapentin 300 Mg Capsule) 300 mg PO TID [facility] Last Admin: 01/26/24 20:13 Dose: 300 mg Haloperidol (Haloperidol 5 Mg Tablet) 5 mg PO TID [facility] Last Admin: 01/26/24 20:13 Dose: 5 mg Haloperidol Lactate (Haloperidol Lactate Oral Conc 10 Mg/5 Ml Oral.Conc) 5 mg PO TID PRN PRN Reason: Psychosis Last Admin: 01/27/24 02:36 Dose: 5 mg Haloperidol Lactate (Haloperidol Lactate 5 Mg/Ml Vial) 5 mg IM TID PRN PRN Reason: Refusal of PO Haldol Last Admin: 01/26/24 08:14 Dose: 5 mg Hydroxyzine HCl (Hydroxyzine Hcl 25 Mg Tablet) 25 mg PO Q6H PRN PRN Reason: Anxiety Last Admin: 01/26/24 20:13 Dose: 25 mg Lorazepam (Lorazepam 1 Mg Tablet) 1 mg PO TID PRN PRN Reason: agitation Last Admin: 01/27/24 02:35 Dose: 1 mg Magnesium Hydroxide (Milk Of Magnesia 30 Ml Oral.Susp) 30 ml PO DAILY PRN PRN Reason: Constipation Nicotine Polacrilex (Nicotine Polacrilex 2 Mg Gum) 2 mg BUCCAL Q2H PRN PRN Reason: Nicotine Cravings Trazodone HCl (Trazodone Hcl 50 Mg Tablet) 50 mg PO BEDTIME MRX1 PRN PRN Reason: Insomnia Last Admin: 01/26/24 20:13 Dose: 50 mg Vitamin D (Cholecalciferol (Vitamin D3) 25 Mcg Tablet) 50 mcg PO DAILY [facility] Last Admin: 01/26/24 08:27 Dose: Not Given Allergies Allergies Allergy/AdvReac Type Severity Reaction Status Date / Time lithium Allergy Unknown Verified 01/13/24 18:08 Assessment & Plan Assessment & Plan (1) Schizoaffective disorder, bipolar type: Status: Acute Code(s): F25.0 - Schizoaffective disorder, bipolar type (2) Hypertension: Status: Acute Code(s): I10 - Essential (primary) hypertension (3) Diabetes mellitus: Status: Acute Code(s): E11.9 - Type 2 diabetes mellitus without complications Plan 68 yo from a nursing home with chronic psychotic disorder, refusing medication , elevated bp and disorganized and agitated behavior requiring psychiatric hospitalization and treatment not competent to sign cv. 01/14 continue to follow - gave lambs warning today- and he says the medical advisor will be a she- still refusing medications and quite psychotic takes alot of redirection to settle him poor adls- 01/15- Refuses meds, refuses hospitalist consult-second day File for Section Seven consideration on 01/17. Provide care as he will allow. 01/16: Depakote 250 mg bid Haldol, Lorazepam, Benadryl prn Section 7 to be filed 01/17 Message left for guardian. 01/17: Section Seven filed. . Court scheduled 01/26/24 Pt continues to refuse medicaitons. He is in need of full assist with ADL's and is incontinent. Pt transferred to [facility] this afternoon. 01/19/2024 Patient pending civil commitment loud agitated would not engage in any conversation with this specifications writer non informational healing agitated verbally aggressive. Every attempt being made to get a copy of the patient's Servin order unclear why this has been so problematic. Encourage food and fluids 01/19 continue same treatment 01/21/24 Patient labile agitated intrusive close labs ordered in order to per to protect the community patient wandering into patient's rooms intrusive impulsive laying on another person's bed. Often hostile agitated posturing at times we are still pending copy of reported Servin order encourage p.o. compliance 01/22/2024 Patient did require physical hold escort him out of a room that he jumped in other patient's room and on their bed while there were in it. There was no physical harm and the patient did leave the room his markedly impulsive with poor judgment remains on close observation has intermittently taken Haldol liquid pending civil commitment treatment plan there is a question of Servin order 01/22 The patient had been more agitated. We review his Servin order and we are increasing the Abilify up to 15 mg p.o. daily and adding Haldol p.r.n. since it is in his role years order. We needed to give him some p.r.n. at 14:00. 01/23 The patient is grossly psychotic disrobing and sexually disinhibited we are starting Haldol 2 mg p.o. t.i.d. to target psychosis as per court order treatment over objection order. 01/24 The patient remains very agitated and angry disruptive so we are increasing the Haldol from 2 mg to 5 mg p.o. t.i.d. with a backup IM if the patient refused as per court order. 01/25 we have increased the Haldol but still he is very psychotic and restless. Today he refused his blood work. He needed to be physically held twice. 01/26 the patient remains agitated at times but his last IM backup was yesterday. We are going to increase Abilify up to 20 mg daily to target mood lability and psychosis. Reason for continued inpatient stay Substantial Risk for: inability to function, rapid decompensation and med/psych decompensation Time Spent With Patient Time: Total time managing care of this patient today __20__ minutes.
[2024-01-27] MEDS: Cholecalciferol (Vitamin D3) 25 MCG TABLET 50 MCG PO (07:52)
[2024-01-27] MEDS: HaloperidoL 5 MG TABLET PO (07:53)
[2024-01-27] MEDS: Divalproex Sodium Sprinkles 125 MG CAP.DR.SPR 250 MG PO (07:53)
[2024-01-27] MEDS: Gabapentin 300 MG CAPSULE PO ×2 (07:53→14:21)
[2024-01-27] MEDS: carBAMazepine 200 MG TABLET PO (07:54)
[2024-01-27] MEDS: Atorvastatin Calcium 40 MG TABLET PO (07:54)
[2024-01-27] MEDS: ARIPiprazole 20 MG TABLET PO (07:57)
--- NOTE | 2024-01-27 17:58 | PM.EVENT ---
Event Note Date of Service: 01/27/24 Event Note: for continued agitation, disorganized and aggressive behavior will do following: increasing haldol to 10mg BID increasing depakote to 500mg BID and making liquid ordering labs per court order Time Spent With Patient Time: Total time managing care of this patient today ____ minutes.
[2024-01-27] MEDS: Haloperidol Lactate 5 MG/ML VIAL IM (21:07)
[2024-01-28] MEDS: diphenhydrAMINE HCL 25 MG CAPSULE 50 MG PO (04:22)
[2024-01-28] MEDS: LORazepam 1 MG TABLET PO (04:22)
[2024-01-28] MEDS: Haloperidol Lactate Oral Conc 10 MG/5 ML ORAL.CONC 5 MG PO (04:31)
--- NOTE | 2024-01-28 08:00 | P.PNPSI_ITS ---
Subjective Subjective Date of Service: 01/28/24 Reason For Visit: Schizoaffective disorder Subjective Notes: Section 7 Interim History: The nursing staff reported the patient had been compliant with medications with a lot of encouragement. Refusing lots of medications, however accepting court Servin ordered meds. Would not engage with blurb writer in room. [place] over head. Has been like this with other staff to. Medication Compliance: Intermittent Side effects from medications: No Attending Groups: No Review of Systems Acute medical concerns: No Review of Systems Review of Systems Yes Unobtainable due to mental status Mental Status Exam Mental Status Exam Narrative: Would not engage at all with blurb writer. In bed. [place] over head. Was breathing and did appear awake. Diagnostics Vital Signs (24Hr): BMI result Body Mass Index 24.8 Medications Medications Current Medications Acetaminophen (Acetaminophen 325 Mg Tablet) 650 mg PO Q6H PRN PRN Reason: Headache/Pain Mild Scale (1-3) Last Admin: 01/17/24 23:53 Dose: 325 mg Al Hydroxide/Mg Hydroxide (Magnesium Hydrox/Alum Hydrox 30 Ml Oral.Susp) 30 ml PO Q6H PRN PRN Reason: Heartburn/Nausea Amlodipine Besylate (Amlodipine Besylate 10 Mg Tablet) 10 mg PO DAILY [facility]; Protocol Last Admin: 01/27/24 07:54 Dose: Not Given Aripiprazole (Aripiprazole 20 Mg Tablet) 20 mg PO DAILY [facility] Last Admin: 01/27/24 07:57 Dose: 20 mg Aspirin (Aspirin Enteric Coated 81 Mg Tablet.) 81 mg PO DAILY [facility] Last Admin: 01/27/24 07:54 Dose: Not Given Atorvastatin Calcium (Atorvastatin Calcium 40 Mg Tablet) 40 mg PO DAILY [facility] Last Admin: 01/27/24 07:54 Dose: 40 mg Carbamazepine (Carbamazepine 200 Mg Tablet) 200 mg PO BID [facility] Last Admin: 01/27/24 22:18 Dose: Not Given Diphenhydramine HCl (Diphenhydramine Hcl 25 Mg Capsule) 50 mg PO Q8H PRN PRN Reason: agitation Last Admin: 01/28/24 04:22 Dose: 50 mg Ferrous Sulfate (Ferrous Sulfate 324 Mg Tablet.) 324 mg PO BIDWM [facility] Last Admin: 01/27/24 16:11 Dose: Not Given Gabapentin (Gabapentin 300 Mg Capsule) 300 mg PO TID [facility] Last Admin: 01/27/24 22:18 Dose: Not Given Haloperidol Lactate (Haloperidol Lactate Oral Conc 10 Mg/5 Ml Oral.Conc) 5 mg PO TID PRN PRN Reason: Psychosis Last Admin: 01/28/24 04:31 Dose: 5 mg Haloperidol Lactate (Haloperidol Lactate Oral Conc 10 Mg/5 Ml Oral.Conc) 10 mg PO BID [facility] Last Admin: 01/27/24 22:18 Dose: Not Given Haloperidol Lactate (Haloperidol Lactate 5 Mg/Ml Vial) 10 mg IM BID PRN PRN Reason: Refusal of PO Haldol Hydroxyzine HCl (Hydroxyzine Hcl 25 Mg Tablet) 25 mg PO Q6H PRN PRN Reason: Anxiety Last Admin: 01/26/24 20:13 Dose: 25 mg Lorazepam (Lorazepam 1 Mg Tablet) 1 mg PO TID PRN PRN Reason: agitation Last Admin: 01/28/24 04:22 Dose: 1 mg Magnesium Hydroxide (Milk Of Magnesia 30 Ml Oral.Susp) 30 ml PO DAILY PRN PRN Reason: Constipation Nicotine Polacrilex (Nicotine Polacrilex 2 Mg Gum) 2 mg BUCCAL Q2H PRN PRN Reason: Nicotine Cravings Trazodone HCl (Trazodone Hcl 50 Mg Tablet) 50 mg PO BEDTIME MRX1 PRN PRN Reason: Insomnia Last Admin: 01/26/24 20:13 Dose: 50 mg Valproic Acid (Valproic Acid Liquid 250 Mg/5 Ml Solution) 500 mg PO BID [facility] Last Admin: 01/27/24 22:19 Dose: Not Given Vitamin D (Cholecalciferol (Vitamin D3) 25 Mcg Tablet) 50 mcg PO DAILY [facility] Last Admin: 01/27/24 07:52 Dose: 50 mcg Allergies Allergies Allergy/AdvReac Type Severity Reaction Status Date / Time lithium Allergy Unknown Verified 01/13/24 18:08 Assessment & Plan Assessment & Plan (1) Schizoaffective disorder, bipolar type: Status: Acute Code(s): F25.0 - Schizoaffective disorder, bipolar type (2) Hypertension: Status: Acute Code(s): I10 - Essential (primary) hypertension (3) Diabetes mellitus: Status: Acute Code(s): E11.9 - Type 2 diabetes mellitus without complications Plan 68 [facility] from a [facility] with chronic psychotic disorder, refusing medication , elevated bp and disorganized and agitated behavior requiring psychiatric hospitalization and treatment not competent to sign cv. 01/14 continue to follow - gave lambs warning today- and he says the hr generalist will be a she- still refusing medications and quite psychotic takes alot of redirection to settle him poor adls- 01/15- Refuses meds, refuses hospitalist consult-second day File for Section Seven consideration on 01/17. Provide care as he will allow. 01/16: Depakote 250 mg bid Haldol, Lorazepam, Benadryl prn Section 7 to be filed 01/17 Message left for guardian. 01/17: Section [address] filed. . Court scheduled 01/26/24 Pt continues to refuse medicaitons. He is in need of full assist with ADL's and is incontinent. Pt transferred to [facility] this afternoon. 01/19/2024 Patient pending civil commitment loud agitated would not engage in any conver sation with this blurb writer non informational healing agitated verbally aggressive. Every attempt being made to get a copy of the patient's Servin order unclear why this has been so problematic. Encourage food and fluids 01/19 continue same treatment 01/21/24 Patient labile agitated intrusive close labs ordered in order to per to protect the community patient wandering into patient's rooms intrusive impulsive laying on another person's bed. Often hostile agitated posturing at times we are still pending copy of reported Servin order encourage p.o. compliance 01/22/2024 Patient did require physical hold escort him out of a room that he jumped in other patient's room and on their bed while there were in it. There was no physical harm and the patient did leave the room his markedly impulsive with poor judgment remains on close observation has intermittently taken Haldol liquid pending civil commitment treatment plan there is a question of Servin order 01/22 The patient had been more agitated. We review his Servin order and we are increasing the Abilify up to 15 mg p.o. daily and adding Haldol p.r.n. since it is in his role years order. We needed to give him some p.r.n. at 14:00. 01/23 The patient is grossly psychotic disrobing and sexually disinhibited we are starting Haldol 2 mg p.o. t.i.d. to target psychosis as per court order treatment over objection order. 01/24 The patient remains very agitated and angry disruptive so we are increasing the Haldol from 2 mg to 5 mg p.o. t.i.d. with a backup IM if the patient refused as per court order. 01/25 we have increased the Haldol but still he is very psychotic and restless. Today he refused his blood work. He needed to be physically held twice. 01/26 the patient remains agitated at times but his last IM backup was yesterday. We are going to increase Abilify up to 20 mg daily to target mood lability and psychosis. 01/28/2024: No changes to current plan. Poor insight and unable to care for self Reason for continued inpatient stay Substantial Risk for: inability to function Time Spent With Patient Time: Total time managing care of this patient today ____ minutes.
[2024-01-28] MEDS: Valproic Acid Liquid 250 MG/5 ML SOLUTION 500 MG PO ×2 (08:26→20:57)
[2024-01-28] MEDS: Haloperidol Lactate Oral Conc 10 MG/5 ML ORAL.CONC PO ×2 (08:27→20:58)
[2024-01-28] MEDS: Aspirin Enteric Coated 81 MG TABLET.DR PO (08:31)
[2024-01-28] MEDS: Atorvastatin Calcium 40 MG TABLET PO (08:31)
[2024-01-28] MEDS: carBAMazepine 200 MG TABLET PO ×2 (08:31→20:58)
[2024-01-28] MEDS: Cholecalciferol (Vitamin D3) 25 MCG TABLET 50 MCG PO (08:31)
[2024-01-28] MEDS: ARIPiprazole 20 MG TABLET PO (08:31)
[2024-01-28] MEDS: Gabapentin 300 MG CAPSULE PO ×2 (08:31→20:58)
--- NOTE | 2024-01-28 14:27 | PC.NURSE ---
Patient refused 1500 Gabapentin, attempted several times.
--- NOTE | 2024-01-28 16:52 | HO.PSYEVENT ---
Event Note Date of Service: 01/28/24 Psych Restraint Event Note: pt got agitated, threw tray, needed physical hold for redirection; pt remains at risk for continued unsafe behavior, harm to others and to ensure safety, required IM medication (won't take a PO) Time Spent With Patient Time: Total time managing care of this patient today ____ minutes.
--- NOTE | 2024-01-28 16:55 | HO.BHRESEX_ITS ---
Behavioral Restraint Exam Behavioral Health Restraint Exam Type of Restraint: Physical Hold and Medication Reason for Restraint: Substantial Risk of Harm to Others Medical Concerns for Restraint: No medical concerns, pt w/o acute inj / no noted resp/VS abnormalities Behavioral Assessment / Plan: No further behavioral concerns, continue current plan. Comment: technical writer and editor present throughout. Security required to administer, but pt quickly calmed down following
[2024-01-28] MEDS: LORazepam 2 MG/ML VIAL IM (17:02)
[2024-01-28] MEDS: Haloperidol Lactate 5 MG/ML VIAL 10 MG IM (17:03)
--- NOTE | 2024-01-28 18:42 | PC.NURSE ---
The patient had been slamming door, yelling out and pacing. I offered him prn Haldol and Ativan during supper and he refused. He then refused supper and went to his room. The patient was in his room after refusing dinner with his close observer. He ran out of the room, up to the staff that was delivering a supper tray to a patient in a precautions room, and threw the tray, food and liquids all over. MHA yelled for help. The provider on unit during restraint. Patient was held x 1 minute to get to his room and IM restraint was ordered by provider. Per provider patient deemed a high risk for reoccurring behavior , risk of staff , self and other patient injury. Security was called. IM Haldol 10mg and IM Ativan 2mg were given. Patient refused vital signs. No apparent injury to patient or staff. Patient's legal guardian Jessica Zhao notified by another RN on the unit. Clinical laboratory supervisor visited unit and notified. Patient given ingrid gracia per request.
[2024-01-29] MEDS: diphenhydrAMINE HCL 25 MG CAPSULE 50 MG PO ×3 (00:27→22:47)
[2024-01-29] MEDS: LORazepam 1 MG TABLET PO ×2 (00:28→12:36)
[2024-01-29] MEDS: Valproic Acid Liquid 250 MG/5 ML SOLUTION 500 MG PO ×2 (07:48→22:45)
[2024-01-29] MEDS: carBAMazepine 200 MG TABLET PO ×2 (07:49→22:48)
[2024-01-29] MEDS: Gabapentin 300 MG CAPSULE PO ×2 (07:49→22:47)
[2024-01-29] MEDS: ARIPiprazole 20 MG TABLET PO (07:49)
[2024-01-29] MEDS: Atorvastatin Calcium 40 MG TABLET PO (07:49)
[2024-01-29] MEDS: Cholecalciferol (Vitamin D3) 25 MCG TABLET 50 MCG PO (07:49)
[2024-01-29] MEDS: Haloperidol Lactate Oral Conc 10 MG/5 ML ORAL.CONC PO ×2 (07:49→22:45)
--- NOTE | 2024-01-29 10:06 | P.PNPSI_ITS ---
Subjective Subjective Date of Service: 01/29/24 Reason For Visit: Schizoaffective disorder Subjective Notes: Section 7 Interim History: Needed IM medications yesterday as threw tray of another patients, jumping into peoples rooms and presented danger to others and self. No insight. Today is loud at times and elated and paranoid. Stated he did not talk with psychiatrists on the Sabbath . Medication Compliance: Yes (grecia) Side effects from medications: No Attending Groups: No Review of Systems Acute medical concerns: No Review of Systems Review of Systems Yes Unobtainable due to mental status Mental Status Exam Mental Status Exam Patient Appearance: Inappropriate and Unkempt Patient Orientation: Person and Situation Level of Consciousness: Awake and Appropriate Patient Behavior: Guarded and Passive Behavior Comments: Verbally aggressive unable to engage in a back and forth conversation yelling about chicken wings Mood Description: Withdrawn Affect Description: Labile and Angry Patient Cognition Impaired: Yes Ability to Follow Directions: Poor Speech Pattern: Rapid and Loud Memory Description: Remote Impaired Judgement: Poor Diagnostics Vital Signs (24Hr): BMI result Body Mass Index 24.8 Medications Medications Current Medications Acetaminophen (Acetaminophen 325 Mg Tablet) 650 mg PO Q6H PRN PRN Reason: Headache/Pain Mild Scale (1-3) Last Admin: 01/17/24 23:53 Dose: 325 mg Al Hydroxide/Mg Hydroxide (Magnesium Hydrox/Alum Hydrox 30 Ml Oral.Susp) 30 ml PO Q6H PRN PRN Reason: Heartburn/Nausea Amlodipine Besylate (Amlodipine Besylate 10 Mg Tablet) 10 mg PO DAILY [facility]; Protocol Last Admin: 01/29/24 07:54 Dose: Not Given Aripiprazole (Aripiprazole 20 Mg Tablet) 20 mg PO DAILY [facility] Last Admin: 01/29/24 07:49 Dose: 20 mg Aspirin (Aspirin Enteric Coated 81 Mg Tablet.) 81 mg PO DAILY [facility] Last Admin: 01/29/24 07:55 Dose: Not Given Atorvastatin Calcium (Atorvastatin Calcium 40 Mg Tablet) 40 mg PO DAILY [facility] Last Admin: 01/29/24 07:49 Dose: 40 mg Carbamazepine (Carbamazepine 200 Mg Tablet) 200 mg PO BID [facility] Last Admin: 01/29/24 07:49 Dose: 200 mg Diphenhydramine HCl (Diphenhydramine Hcl 25 Mg Capsule) 50 mg PO Q8H PRN PRN Reason: agitation Last Admin: 01/29/24 00:27 Dose: 50 mg Ferrous Sulfate (Ferrous Sulfate 324 Mg Tablet.Dr) 324 mg PO BIDWM [facility] Last Admin: 01/29/24 07:54 Dose: Not Given Gabapentin (Gabapentin 300 Mg Capsule) 300 mg PO TID [facility] Last Admin: 01/29/24 07:49 Dose: 300 mg Haloperidol Lactate (Haloperidol Lactate Oral Conc 10 Mg/5 Ml Oral.Conc) 10 mg PO BID [facility] Last Admin: 01/29/24 07:49 Dose: 10 mg Haloperidol Lactate (Haloperidol Lactate 5 Mg/Ml Vial) 10 mg IM BID PRN PRN Reason: Refusal of Court PO Haldol Haloperidol Lactate (Haloperidol Lactate Oral Conc 10 Mg/5 Ml Oral.Conc) 5 mg PO TID PRN PRN Reason: Psychosis or severe agitation Hydroxyzine HCl (Hydroxyzine Hcl 25 Mg Tablet) 25 mg PO Q6H PRN PRN Reason: Anxiety Last Admin: 01/26/24 20:13 Dose: 25 mg Lorazepam (Lorazepam 1 Mg Tablet) 1 mg PO TID PRN PRN Reason: agitation Last Admin: 01/29/24 00:28 Dose: 1 mg Magnesium Hydroxide (Milk Of Magnesia 30 Ml Oral.Susp) 30 ml PO DAILY PRN PRN Reason: Constipation Nicotine Polacrilex (Nicotine Polacrilex 2 Mg Gum) 2 mg BUCCAL Q2H PRN PRN Reason: Nicotine Cravings Trazodone HCl (Trazodone Hcl 50 Mg Tablet) 50 mg PO BEDTIME MRX1 PRN PRN Reason: Insomnia Last Admin: 01/26/24 20:13 Dose: 50 mg Valproic Acid (Valproic Acid Liquid 250 Mg/5 Ml Solution) 500 mg PO BID [facility] Last Admin: 01/29/24 07:48 Dose: 500 mg Vitamin D (Cholecalciferol (Vitamin D3) 25 Mcg Tablet) 50 mcg PO DAILY [facility] Last Admin: 01/29/24 07:49 Dose: 50 mcg Allergies Allergies Allergy/AdvReac Type Severity Reaction Status Date / Time lithium Allergy Unknown Verified 01/13/24 18:08 Assessment & Plan Assessment & Plan (1) Schizoaffective disorder, bipolar type: Status: Acute Code(s): F25.0 - Schizoaffective disorder, bipolar type (2) Hypertension: Status: Acute Code(s): I10 - Essential (primary) hypertension (3) Diabetes mellitus: Status: Acute Code(s): E11.9 - Type 2 diabetes mellitus without complications Plan 68 [place] [facility] with chronic psychotic disorder, refusing medication , elevated bp and disorganized and agitated behavior requiring psychiatric hospitalization and treatment not competent to sign cv. 01/14 continue to follow - gave lambs warning today- and he says the county court judge will be a she- still refusing medications and quite psychotic takes alot of redirection to settle him poor adls- 01/15- Refuses meds, refuses hospitalist consult-second day File for Section Seven consideration on 01/17. Provide care as he will allow. 01/16: Depakote 250 mg bid Haldol, Lorazepam, Benadryl prn Section 7 to be filed 01/17 Message left for guardian. 01/17: Section Seven filed. . Court scheduled 01/26/24 Pt continues to refuse medicaitons. He is in need of full assist with ADL's and is incontinent. Pt transferred to [facility] this afternoon. 01/19/2024 Patient pending civil commitment loud agitated would not engage in any conversa tion with this bid writer non informational healing agitated verbally aggressive. Every attempt being made to get a copy of the patient's Servin order unclear why this has been so problematic. Encourage food and fluids 01/19 continue same treatment 01/21/24 Patient labile agitated intrusive close labs ordered in order to per to protect the community patient wandering into patient's rooms intrusive impulsive laying on another person's bed. Often hostile agitated posturing at times we are still pending copy of reported Servin order encourage p.o. compliance 01/22/2024 Patient did require physical hold escort him out of a room that he jumped in other patient's room and on their bed while there were in it. There was no physical harm and the patient did leave the room his markedly impulsive with poor judgment remains on close observation has intermittently taken Haldol liquid pending civil commitment treatment plan there is a question of Servin order 01/22 The patient had been more agitated. We review his Servin order and we are increasing the Abilify up to 15 mg p.o. daily and adding Haldol p.r.n. since it is in his role years order. We needed to give him some p.r.n. at 14:00. 01/23 The patient is grossly psychotic disrobing and sexually disinhibited we are starting Haldol 2 mg p.o. t.i.d. to target psychosis as per court order treatment over objection order. 01/24 The patient remains very agitated and angry disruptive so we are increasing the Haldol from 2 mg to 5 mg p.o. t.i.d. with a backup IM if the patient refused as per court order. 01/25 we have increased the Haldol but still he is very psychotic and restless. Today he refused his blood work. He needed to be physically held twice. 01/26 the patient remains agitated at times but his last IM backup was yesterday. We are going to increase Abilify up to 20 mg daily to target mood lability and psychosis. 01/29/2024: Increase frequency of prn doses from tid to prn q 6mrs. Poor insight and unable to care for self Reason for continued inpatient stay Substantial Risk for: inability to function Time Spent With Patient Time: Total time managing care of this patient today ____ minutes.
[2024-01-29] MEDS: Haloperidol Lactate Oral Conc 10 MG/5 ML ORAL.CONC 5 MG PO ×2 (11:41→18:45)
[2024-01-29] MEDS: hydrOXYzine HCL 25 MG TABLET PO (12:36)
[2024-01-29] MEDS: traZODone HCL 50 MG TABLET PO (22:48)
[2024-01-30 08:00] VITALS: RESP 16
--- NOTE | 2024-01-30 10:01 | PC.NURSE ---
Bret declined morning medicine and vital signs despite education and encouragement. Dr. Watson notified. When he wakes up will try to administer po meds again and if continues to decline he will receive IM Haldol per FOSTER order.
[2024-01-30] MEDS: Haloperidol Lactate 5 MG/ML VIAL 10 MG IM ×2 (10:17→22:44)
--- NOTE | 2024-01-30 10:37 | P.PNPSI_ITS ---
Subjective Subjective Date of Service: 01/30/24 Reason For Visit: Schizoaffective disorder Subjective Notes: Section 7 and Section 8 Interim History: The nursing staff reported the patient had been belligerent, agitated at times, he had restrained on January 28. He refused his medications today in the morning. On interview the patient was still sleepy and we will wait when he wakes up to offer his medications back again. Still grossly disorganized and psychotic. Mental Status Exam Mental Status Exam Patient Appearance: Unkempt Patient Orientation: Person Level of Consciousness: Awake and Sedated Patient Behavior: Guarded and Suspicious Mood Description: Withdrawn Affect Description: Blunted Patient Cognition Impaired: Yes Ability to Follow Directions: Poor Speech Pattern: Impoverished Hallucinations: Auditory Delusions: Grandiose and Ideas of Reference Thought Process: Distracted and Slowed Thinking Thought Content: positive for [employer] and positive for Poverty of Content Judgement: Poor Diagnostics Vital Signs (24Hr): BMI result Body Mass Index 24.8 Medications Medications Current Medications Acetaminophen (Acetaminophen 325 Mg Tablet) 650 mg PO Q6H PRN PRN Reason: Headache/Pain Mild Scale (1-3) Last Admin: 01/17/24 23:53 Dose: 325 mg Al Hydroxide/Mg Hydroxide (Magnesium Hydrox/Alum Hydrox 30 Ml Oral.Susp) 30 ml PO Q6H PRN PRN Reason: Heartburn/Nausea Amlodipine Besylate (Amlodipine Besylate 10 Mg Tablet) 10 mg PO DAILY [facility]; Protocol Last Admin: 01/30/24 09:06 Dose: Not Given Aripiprazole (Aripiprazole 20 Mg Tablet) 20 mg PO DAILY [facility] Last Admin: 01/30/24 09:06 Dose: Not Given Aspirin (Aspirin Enteric Coated 81 Mg Tablet.) 81 mg PO DAILY [facility] Last Admin: 01/30/24 09:06 Dose: Not Given Atorvastatin Calcium (Atorvastatin Calcium 40 Mg Tablet) 40 mg PO DAILY [facility] Last Admin: 01/30/24 09:06 Dose: Not Given Carbamazepine (Carbamazepine 200 Mg Tablet) 200 mg PO BID [facility] Last Admin: 01/30/24 09:06 Dose: Not Given Diphenhydramine HCl (Diphenhydramine Hcl 25 Mg Capsule) 50 mg PO Q8H PRN PRN Reason: agitation Last Admin: 01/29/24 22:47 Dose: 50 mg Ferrous Sulfate (Ferrous Sulfate 324 Mg Tablet.) 324 mg PO BIDWM [facility] Last Admin: 01/30/24 09:06 Dose: Not Given Gabapentin (Gabapentin 300 Mg Capsule) 300 mg PO TID [facility] Last Admin: 01/30/24 09:06 Dose: Not Given Haloperidol Lactate (Haloperidol Lactate Oral Conc 10 Mg/5 Ml Oral.Conc) 10 mg PO BID [facility] Last Admin: 01/30/24 09:06 Dose: Not Given Haloperidol Lactate (Haloperidol Lactate 5 Mg/Ml Vial) 10 mg IM BID PRN PRN Reason: Refusal of Court PO Haldol Last Admin: 01/30/24 10:17 Dose: 10 mg Haloperidol Lactate (Haloperidol Lactate Oral Conc 10 Mg/5 Ml Oral.Conc) 5 mg PO Q6H PRN PRN Reason: Psychosis or severe agitation Last Admin: 01/29/24 18:45 Dose: 5 mg Hydroxyzine HCl (Hydroxyzine Hcl 25 Mg Tablet) 25 mg PO Q6H PRN PRN Reason: Anxiety Last Admin: 01/29/24 12:36 Dose: 25 mg Lorazepam (Lorazepam 1 Mg Tablet) 1 mg PO Q6H PRN PRN Reason: agitation Last Admin: 01/29/24 12:36 Dose: 1 mg Magnesium Hydroxide (Milk Of Magnesia 30 Ml Oral.Susp) 30 ml PO DAILY PRN PRN Reason: Constipation Nicotine Polacrilex (Nicotine Polacrilex 2 Mg Gum) 2 mg BUCCAL Q2H PRN PRN Reason: Nicotine Cravings Trazodone HCl (Trazodone Hcl 50 Mg Tablet) 50 mg PO BEDTIME MRX1 PRN PRN Reason: Insomnia Last Admin: 01/29/24 22:48 Dose: 50 mg Valproic Acid (Valproic Acid Liquid 250 Mg/5 Ml Solution) 500 mg PO BID [facility] Last Admin: 01/30/24 09:07 Dose: Not Given Vitamin D (Cholecalciferol (Vitamin D3) 25 Mcg Tablet) 50 mcg PO DAILY [facility] Last Admin: 01/30/24 09:06 Dose: Not Given Allergies Allergies Allergy/AdvReac Type Severity Reaction Status Date / Time lithium Allergy Unknown Verified 01/13/24 18:08 Assessment & Plan Assessment & Plan (1) Schizoaffective disorder, bipolar type: Status: Acute Code(s): F25.0 - Schizoaffective disorder, bipolar type (2) Hypertension: Status: Acute Code(s): I10 - Essential (primary) hypertension (3) Diabetes mellitus: Status: Acute Code(s): E11.9 - Type 2 diabetes mellitus without complications Plan 68 [facility] with chronic psychotic disorder, refusing medication , elevated bp and disorganized and agitated behavior requiring psychiatric hospitalization and treatment not competent to sign cv. 01/14 continue to follow - gave lambs warning today- and he says the superior court judge will be a she- still refusing medications and quite psychotic takes alot of redirection to settle him poor adls- 01/15- Refuses meds, refuses hospitalist consult-second day File for Section Seven consideration on 01/17. Provide care as he will allow. 01/16: Depakote 250 mg bid Haldol, Lorazepam, Benadryl prn Section 7 to be filed 01/17 Message left for guardian. 01/17: Section Seven filed. . Court scheduled 01/26/24 Pt continues to refuse medicaitons. He is in need of full assist with ADL's and is incontinent. Pt transferred to [facility] this afternoon. 01/19/2024 Patient pending civil commitment loud agitated would not engage in any conversation with this auto service writer non informational healing agitated verbally aggressive. Every attempt being made to get a copy of the patient's Servin order unclear why this has been so problematic. Encourage food and fluids 01/19 continue same treatment 01/21/24 Patient labile agitated intrusive close labs ordered in order to per to protect the community patient wandering into patient's rooms intrusive impulsive laying on another person's bed. Often hostile agitated posturing at times we are still pending copy of reported Servin order encourage p.o. compliance 01/22/2024 Patient did require physical hold escort him out of a room that he jumped in other patient's room and on their bed while there were in it. There was no physical harm and the patient did leave the room his markedly impulsive with poor judgment remains on close observation has intermittently taken Haldol liquid pending civil commitment treatment plan there is a question of Servin order 01/22 The patient had been more agitated. We review his Servin order and we are increasing the Abilify up to 15 mg p.o. daily and adding Haldol p.r.n. since it is in his role years order. We needed to give him some p.r.n. at 14:00. 01/23 The patient is grossly psychotic disrobing and sexually disinhibited we are starting Haldol 2 mg p.o. t.i.d. to target psychosis as per court order treatment over objection order. 01/24 The patient remains very agitated and angry disruptive so we are increasing the Haldol from 2 mg to 5 mg p.o. t.i.d. with a backup IM if the patient refused as per court order. 01/25 we have increased the Haldol but still he is very psychotic and restless. Today he refused his blood work. He needed to be physically held twice. 01/26 the patient remains agitated at times but his last IM backup was yesterday. We are going to increase Abilify up to 20 mg daily to target mood lability and psychosis. 01/29/2024: Increase frequency of prn doses from tid to prn q 6mrs. Poor insight and unable to care for self Plan 1. Increase Abilify up to 15 mg p.o. daily on January 26. 2. Continue titration of Haldol up to 10 mg p.o. b.i.d. as per court order. 3. Backup IM as per court order. 4. Continue 15 minute checks. 5. Continue with other psychotropics. Reason for continued inpatient stay Substantial Risk for: inability to function, rapid decompensation and med/psych decompensation Time Spent With Patient Time: Total time managing care of this patient today _20___ minutes.
[2024-01-30] MEDS: diphenhydrAMINE HCL 25 MG CAPSULE 50 MG PO (13:52)
[2024-01-30] MEDS: LORazepam 1 MG TABLET PO (13:53)
[2024-01-31] MEDS: Valproic Acid Liquid 250 MG/5 ML SOLUTION 500 MG PO ×2 (08:13→21:56)
[2024-01-31] MEDS: ARIPiprazole 20 MG TABLET PO (08:14)
[2024-01-31] MEDS: Haloperidol Lactate Oral Conc 10 MG/5 ML ORAL.CONC PO ×2 (08:14→21:55)
[2024-01-31] MEDS: Gabapentin 300 MG CAPSULE PO ×2 (08:15→21:56)
[2024-01-31] MEDS: carBAMazepine 200 MG TABLET PO ×2 (08:15→21:56)
[2024-01-31] MEDS: Atorvastatin Calcium 40 MG TABLET PO (08:15)
[2024-01-31] MEDS: Cholecalciferol (Vitamin D3) 25 MCG TABLET 50 MCG PO (08:15)
[2024-01-31 08:16] VITALS: BP 171/91; PULSE 88; RESP 18; TEMP 36.3; O2SAT 99
[2024-01-31] MEDS: amLODIPine Besylate 10 MG TABLET PO (08:17)
--- NOTE | 2024-01-31 12:05 | P.PNPSI_ITS ---
Subjective Subjective Date of Service: 01/31/24 Reason For Visit: Schizoaffective disorder Interim History: The nursing staff reported that yesterday the patient was slamming doors with labile mood but he was a little better in the evening. She refused p.o. but wanted IM instead. He was in later on crying stating that nobody likes him. Today the patient was isolative no new symptoms, less aggressive so we are taking him off one-to-one Mental Status Exam Mental Status Exam Patient Appearance: Unkempt Patient Orientation: Person and Situation Level of Consciousness: Awake and Appropriate Patient Behavior: Guarded and Passive Mood Description: Withdrawn Affect Description: Blunted Patient Cognition Impaired: Yes Ability to Follow Directions: Poor Speech Pattern: Clear Hallucinations: Auditory Delusions: Paranoid Ideation and Ideas of Reference Thought Process: Distracted and Slowed Thinking Thought Content: positive for [place] and positive for Poverty of Content Judgement: Poor Diagnostics Vital Signs (24Hr): Vital Signs - 24 hr 01/31/24 08:16 Temperature 97.4 F Pulse Rate 88 Respiratory Rate 18 Blood Pressure 171/91 H Pulse Oximetry 99 Oxygen Delivery Method Room Air BMI result Body Mass Index 24.8 Medications Medications Current Medications Acetaminophen (Acetaminophen 325 Mg Tablet) 650 mg PO Q6H PRN PRN Reason: Headache/Pain Mild Scale (1-3) Last Admin: 01/17/24 23:53 Dose: 325 mg Al Hydroxide/Mg Hydroxide (Magnesium Hydrox/Alum Hydrox 30 Ml Oral.Susp) 30 ml PO Q6H PRN PRN Reason: Heartburn/Nausea Amlodipine Besylate (Amlodipine Besylate 10 Mg Tablet) 10 mg PO DAILY [facility]; Protocol Last Admin: 01/31/24 08:17 Dose: 10 mg Aripiprazole (Aripiprazole 20 Mg Tablet) 20 mg PO DAILY [facility] Last Admin: 01/31/24 08:14 Dose: 20 mg Aspirin (Aspirin Enteric Coated 81 Mg Tablet.Dr) 81 mg PO DAILY [facility] Last Admin: 01/31/24 08:15 Dose: Not Given Atorvastatin Calcium (Atorvastatin Calcium 40 Mg Tablet) 40 mg PO DAILY [facility] Last Admin: 01/31/24 08:15 Dose: 40 mg Carbamazepine (Carbamazepine 200 Mg Tablet) 200 mg PO BID [facility] Last Admin: 01/31/24 08:15 Dose: 200 mg Diphenhydramine HCl (Diphenhydramine Hcl 25 Mg Capsule) 50 mg PO Q8H PRN PRN Reason: agitation Last Admin: 01/30/24 13:52 Dose: 50 mg Ferrous Sulfate (Ferrous Sulfate 324 Mg Tablet.Dr) 324 mg PO BIDWM [facility] Last Admin: 01/31/24 08:13 Dose: Not Given Gabapentin (Gabapentin 300 Mg Capsule) 300 mg PO TID [facility] Last Admin: 01/31/24 08:15 Dose: 300 mg Haloperidol Lactate (Haloperidol Lactate Oral Conc 10 Mg/5 Ml Oral.Conc) 10 mg PO BID [facility] Last Admin: 01/31/24 08:14 Dose: 10 mg Haloperidol Lactate (Haloperidol Lactate 5 Mg/Ml Vial) 10 mg IM BID PRN PRN Reason: Refusal of Court PO Haldol Last Admin: 01/30/24 22:44 Dose: 10 mg Haloperidol Lactate (Haloperidol Lactate Oral Conc 10 Mg/5 Ml Oral.Conc) 5 mg PO Q6H PRN PRN Reason: Psychosis or severe agitation Last Admin: 01/29/24 18:45 Dose: 5 mg Hydroxyzine HCl (Hydroxyzine Hcl 25 Mg Tablet) 25 mg PO Q6H PRN PRN Reason: Anxiety Last Admin: 01/29/24 12:36 Dose: 25 mg Lorazepam (Lorazepam 1 Mg Tablet) 1 mg PO Q6H PRN PRN Reason: agitation Last Admin: 01/30/24 13:53 Dose: 1 mg Magnesium Hydroxide (Milk Of Magnesia 30 Ml Oral.Susp) 30 ml PO DAILY PRN PRN Reason: Constipation Nicotine Polacrilex (Nicotine Polacrilex 2 Mg Gum) 2 mg BUCCAL Q2H PRN PRN Reason: Nicotine Cravings Trazodone HCl (Trazodone Hcl 50 Mg Tablet) 50 mg PO BEDTIME MRX1 PRN PRN Reason: Insomnia Last Admin: 01/29/24 22:48 Dose: 50 mg Valproic Acid (Valproic Acid Liquid 250 Mg/5 Ml Solution) 500 mg PO BID [facility] Last Admin: 01/31/24 08:13 Dose: 500 mg Vitamin D (Cholecalciferol (Vitamin D3) 25 Mcg Tablet) 50 mcg PO DAILY [facility] Last Admin: 01/31/24 08:15 Dose: 50 mcg Allergies Allergies Allergy/AdvReac Type Severity Reaction Status Date / Time lithium Allergy Unknown Verified 01/13/24 18:08 Assessment & Plan Assessment & Plan (1) Schizoaffective disorder, bipolar type: Status: Acute Code(s): F25.0 - Schizoaffective disorder, bipolar type (2) Hypertension: Status: Acute Code(s): I10 - Essential (primary) hypertension (3) Diabetes mellitus: Status: Acute Code(s): E11.9 - Type 2 diabetes mellitus without complications Plan 68 yo from a skilled nursing with chronic psychotic disorder, refusing medication , elevated bp and disorganized and agitated behavior requiring psychiatric hospitalization and treatment not competent to sign cv. 01/14 continue to follow - gave lambs warning today- and he says the scrap metal collector will be a she- still refusing medications and quite psychotic takes alot of redirection to settle him poor adls- 01/15- Refuses meds, refuses hospitalist consult-second day File for Section Seven consideration on 01/17. Provide care as he will allow. 01/16: Depakote 250 mg bid Haldol, Lorazepam, Benadryl prn Section 7 to be filed 01/17 Message left for guardian. 01/17: Section Seven filed. . Court scheduled 01/26/24 Pt continues to refuse medicaitons. He is in need of full assist with ADL's and is incontinent. Pt transferred to [facility] this afternoon. 01/19/2024 Patient pending civil commitment loud agitated would not engage in any conversation with this bid writer non informational healing agitated verbally aggressive. Every attempt being made to get a copy of the patient's Servin order unclear why this has been so problematic. Encourage food and fluids 01/19 continue same treatment 01/21/24 Patient labile agitated intrusive close labs ordered in order to per to protect the community patient wandering into patient's rooms intrusive impulsive laying on another person's bed. Often hostile agitated posturing at times we are still pending copy of reported Servin order encourage p.o. compliance 01/22/2024 Patient did require physical hold escort him out of a room that he jumped in other patient's room and on their bed while there were in it. There was no physical harm and the patient did leave the room his markedly impulsive with poor judgment remains on close observation has intermittently taken Haldol liquid pending civil commitment treatment plan there is a question of Servin order 01/22 The patient had been more agitated. We review his Servin order and we are increasing the Abilify up to 15 mg p.o. daily and adding Haldol p.r.n. since it is in his role years order. We needed to give him some p.r.n. at 14:00. 01/23 The patient is grossly psychotic disrobing and sexually disinhibited we are starting Haldol 2 mg p.o. t.i.d. to target psychosis as per court order treatment over objection order. 01/24 The patient remains very agitated and angry disruptive so we are increasing the Haldol from 2 mg to 5 mg p.o. t.i.d. with a backup IM if the patient refused as per court order. 01/25 we have increased the Haldol but still he is very psychotic and restless. Today he refused his blood work. He needed to be physically held twice. 01/26 the patient remains agitated at times but his last IM backup was yesterday. We are going to increase Abilify up to 20 mg daily to target mood lability and psychosis. 01/29/2024: Increase frequency of prn doses from tid to prn q 6mrs. Poor insight and unable to care for self Plan 1. Increase Abilify up to 15 mg p.o. daily on January 26. 2. Continue titration of Haldol up to 10 mg p.o. b.i.d. as per court order. 3. Backup IM as per court order. 4. Continue 15 minute checks. 5. Continue with other psychotropics. Reason for continued inpatient stay Substantial Risk for: inability to function, rapid decompensation and med/psych decompensation Time Spent With Patient Time: Total time managing care of this patient today __20__ minutes.
[2024-01-31] MEDS: diphenhydrAMINE HCL 25 MG CAPSULE 50 MG PO (21:56)
[2024-01-31] MEDS: traZODone HCL 50 MG TABLET PO (21:56)
[2024-01-31] MEDS: hydrOXYzine HCL 25 MG TABLET PO (21:56)
[2024-02-01] MEDS: Haloperidol Lactate 5 MG/ML VIAL 10 MG IM ×2 (09:20→21:00)
--- NOTE | 2024-02-01 10:30 | PC.NURSE ---
Bret refused PO scheduled court-ordered meds. Per Mitchell's order IM Haldol administered with presence of security. Pt tolerated well, did not attempt to fight staff, asked for IM shot to be administered on his buttock.
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
[2024-02-01 20:00] VITALS: BP 168/77; PULSE 79; RESP 16; TEMP 36.7; O2SAT 100
[2024-02-02] MEDS: Haloperidol Lactate Oral Conc 10 MG/5 ML ORAL.CONC 5 MG PO (02:30)
[2024-02-02] MEDS: hydrOXYzine HCL 25 MG TABLET PO (02:31)
[2024-02-02] MEDS: LORazepam 1 MG TABLET PO (02:31)
[2024-02-02] MEDS: Haloperidol Lactate Oral Conc 10 MG/5 ML ORAL.CONC PO (03:00)
[2024-02-02] MEDS: diphenhydrAMINE HCL 25 MG CAPSULE 50 MG PO (03:00)
[2024-02-02] MEDS: LORazepam 1 MG TABLET 2 MG PO (03:00)
[2024-02-02 07:00] VITALS: BMI 23.8
[2024-02-02] MEDS: Haloperidol Lactate 5 MG/ML VIAL 10 MG IM ×2 (08:49→19:25)
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
--- NOTE | 2024-02-02 19:39 | PC.NURSE ---
@ 1900 pt elevating, shouting in hallways, slamming doors, entering other pt rooms and slamming their doors, attempting to sit in chairs in othr pts room. Pt refusing offered PO meds, continued to be difficult to redirect, Provider Jarad contacted via [employer] text, okay to give dong's Haldol early. Security called for standby during IM injection.
[2024-02-02 20:00] VITALS: RESP 18
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
[2024-02-03] MEDS: LORazepam 2 MG/ML VIAL IM (01:42)
[2024-02-03] MEDS: OLANZapine 10 MG VIAL IM (01:43)
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
[2024-02-03] MEDS: Aspirin Enteric Coated 81 MG TABLET.DR PO ×2 (09:32→11:15)
[2024-02-03] MEDS: Atorvastatin Calcium 40 MG TABLET PO (09:32)
[2024-02-03] MEDS: carBAMazepine 200 MG TABLET PO ×3 (09:33→20:52)
[2024-02-03] MEDS: ARIPiprazole 15 MG TABLET PO (09:33)
[2024-02-03] MEDS: Valproic Acid Liquid 250 MG/5 ML SOLUTION 500 MG PO ×2 (11:14→20:53)
[2024-02-03] MEDS: Haloperidol Lactate Oral Conc 10 MG/5 ML ORAL.CONC PO ×2 (11:15→20:53)
--- NOTE | 2024-02-03 15:19 | HO.PSYCHPN ---
Subjective Subjective Date of Service: 02/03/24 Reason For Visit: Schizoaffective disorder Subjective Notes: Gareth Gilmore Order, Section 7 and Section 8 Interim History: The nursing staff reported that last night he nearly dry have female staff to his bed and needed to be chemically restrained. Hearing received IM medications in the morning and in the afternoon yesterday and today he refused again. On interview, the patient looks slightly sedated. We are increasing his gabapentin up to 400 mg p.o. t.i.d.. Mental Status Exam Mental Status Exam Patient Appearance: Unkempt Patient Orientation: Person Level of Consciousness: Awake Patient Behavior: Guarded and Passive Mood Description: Withdrawn Affect Description: Blunted Patient Cognition Impaired: Yes Ability to Follow Directions: Good Speech Pattern: Clear Hallucinations: None Delusions: Ideas of Reference Thought Process: Distracted and Slowed Thinking Thought Content: positive for [place] and positive for Poverty of Content Judgement: Poor Diagnostics Vital Signs (24Hr): Vital Signs - 24 hr 02/02/24 20:00 Respiratory Rate 18 BMI result Body Mass Index 23.8 Medications Medications Current Medications Acetaminophen (Acetaminophen 325 Mg Tablet) 650 mg PO Q6H PRN PRN Reason: Headache/Pain Mild Scale (1-3) Last Admin: 01/17/24 23:53 Dose: 325 mg Al Hydroxide/Mg Hydroxide (Magnesium Hydrox/Alum Hydrox 30 Ml Oral.Susp) 30 ml PO Q6H PRN PRN Reason: Heartburn/Nausea Amlodipine Besylate (Amlodipine Besylate 10 Mg Tablet) 10 mg PO DAILY [facility]; Protocol Last Admin: 02/03/24 11:12 Dose: Not Given Aripiprazole (Aripiprazole 15 Mg Tablet) 15 mg PO DAILY [facility] Last Admin: 02/03/24 09:33 Dose: 15 mg Aspirin (Aspirin Enteric Coated 81 Mg Tablet.Dr) 81 mg PO DAILY [facility] Last Admin: 02/03/24 11:15 Dose: 81 mg Atorvastatin Calcium (Atorvastatin Calcium 40 Mg Tablet) 40 mg PO DAILY [facility] Last Admin: 02/03/24 09:32 Dose: 40 mg Carbamazepine (Carbamazepine 200 Mg Tablet) 200 mg PO BID [facility] Last Admin: 02/03/24 11:16 Dose: 200 mg Diphenhydramine HCl (Diphenhydramine Hcl 25 Mg Capsule) 50 mg PO Q8H PRN PRN Reason: agitation Last Admin: 01/31/24 21:56 Dose: 50 mg Ferrous Sulfate (Ferrous Sulfate 324 Mg Tablet.Dr) 324 mg PO BIDWM [facility] Last Admin: 02/03/24 11:12 Dose: Not Given Gabapentin (Gabapentin 400 Mg Capsule) 400 mg PO TID [facility] Last Admin: 02/03/24 11:13 Dose: Not Given Haloperidol Lactate (Haloperidol Lactate Oral Conc 10 Mg/5 Ml Oral.Conc) 10 mg PO BID [facility] Last Admin: 02/03/24 11:15 Dose: 10 mg Haloperidol Lactate (Haloperidol Lactate 5 Mg/Ml Vial) 10 mg IM BID PRN PRN Reason: Refusal of Court PO Haldol Last Admin: 02/02/24 19:25 Dose: 10 mg Haloperidol Lactate (Haloperidol Lactate Oral Conc 10 Mg/5 Ml Oral.Conc) 5 mg PO Q6H PRN PRN Reason: Psychosis or severe agitation Last Admin: 02/02/24 02:30 Dose: 5 mg Hydroxyzine HCl (Hydroxyzine Hcl 25 Mg Tablet) 25 mg PO Q6H PRN PRN Reason: Anxiety Last Admin: 02/02/24 02:31 Dose: 25 mg Lorazepam (Lorazepam 1 Mg Tablet) 2 mg PO Q6H PRN PRN Reason: Restlessness Magnesium Hydroxide (Milk Of Magnesia 30 Ml Oral.Susp) 30 ml PO DAILY PRN PRN Reason: Constipation Nicotine Polacrilex (Nicotine Polacrilex 2 Mg Gum) 2 mg BUCCAL Q2H PRN PRN Reason: Nicotine Cravings Trazodone HCl (Trazodone Hcl 50 Mg Tablet) 50 mg PO BEDTIME MRX1 PRN PRN Reason: Insomnia Last Admin: 01/31/24 21:56 Dose: 50 mg Valproic Acid (Valproic Acid Liquid 250 Mg/5 Ml Solution) 500 mg PO BID [facility] Last Admin: 02/03/24 11:14 Dose: 500 mg Vitamin D (Cholecalciferol (Vitamin D3) 25 Mcg Tablet) 50 mcg PO DAILY [facility] Last Admin: 02/03/24 11:12 Dose: Not Given Allergies Allergies Allergy/AdvReac Type Severity Reaction Status Date / Time lithium Allergy Unknown Verified 01/13/24 18:08 Assessment & Plan Assessment & Plan (1) Schizoaffective disorder, bipolar type: Status: Acute Code(s): F25.0 - Schizoaffective disorder, bipolar type (2) Hypertension: Status: Acute Code(s): I10 - Essential (primary) hypertension (3) Diabetes mellitus: Status: Acute Code(s): E11.9 - Type 2 diabetes mellitus without complications Plan 68 yo from a care home with chronic psychotic disorder, refusing medication , elevated bp and disorganized and agitated behavior requiring psychiatric hospitalization and treatment not competent to sign cv. 01/14 continue to follow - gave lambs warning today- and he says the filter press tender will be a she- still refusing medications and quite psychotic takes alot of redirection to settle him poor adls- 01/15- Refuses meds, refuses hospitalist consult-second day File for Section Seven consideration on 01/17. Provide care as he will allow. 01/16: Depakote 250 mg bid Haldol, Lorazepam, Benadryl prn Section 7 to be filed 01/17 Message left for guardian. 01/17: Section Seven filed. . Court scheduled 01/26/24 Pt continues to refuse medicaitons. He is in need of full assist with ADL's and is incontinent. Pt transferred to [facility] this afternoon. 01/19/2024 Patient pending civil commitment loud agitated would not engage in any conversation with this verse writer non informational healing agitated verbally aggressive. Every attempt being made to get a copy of the patient's Servin order unclear why this has been so problematic. Encourage food and fluids 01/19 continue same treatment 01/21/24 Patient labile agitated intrusive close labs ordered in order to per to protect the community patient wandering into patient's rooms intrusive impulsive laying on another person's bed. Often hostile agitated posturing at times we are still pending copy of reported Servin order encourage p.o. compliance 01/22/2024 Patient did require physical hold escort him out of a room that he jumped in other patient's room and on their bed while there were in it. There was no physical harm and the patient did leave the room his markedly impulsive with poor judgment remains on close observation has intermittently taken Haldol liquid pending civil commitment treatment plan there is a question of Servin order 01/22 The patient had been more agitated. We review his Servin order and we are increasing the Abilify up to 15 mg p.o. daily and adding Haldol p.r.n. since it is in his role years order. We needed to give him some p.r.n. at 14:00. 01/23 The patient is grossly psychotic disrobing and sexually disinhibited we are starting Haldol 2 mg p.o. t.i.d. to target psychosis as per court order treatment over objection order. 01/24 The patient remains very agitated and angry disruptive so we are increasing the Haldol from 2 mg to 5 mg p.o. t.i.d. with a backup IM if the patient refused as per court order. 01/25 we have increased the Haldol but still he is very psychotic and restless. Today he refused his blood work. He needed to be physically held twice. 01/26 the patient remains agitated at times but his last IM backup was yesterday. We are going to increase Abilify up to 20 mg daily to target mood lability and psychosis. 01/29/2024: Increase frequency of prn doses from tid to prn q 6mrs. Poor insight and unable to care for self Plan 1. Increase Abilify up to 15 mg p.o. daily on January 26. 2. Continue titration of Haldol up to 10 mg p.o. b.i.d. as per court order. 3. Backup IM as per court order. 4. Continue 15 minute checks. 5. Continue with other psychotropics. Reason for continued inpatient stay Substantial Risk for: inability to function, rapid decompensation and med/psych decompensation Time Spent With Patient Time: Total time managing care of this patient today __20__ minutes.
[2024-02-03] MEDS: Haloperidol Lactate Oral Conc 10 MG/5 ML ORAL.CONC 5 MG PO (15:52)
[2024-02-03] MEDS: hydrOXYzine HCL 25 MG TABLET PO (15:52)
[2024-02-03] MEDS: LORazepam 1 MG TABLET 2 MG PO (16:34)
[2024-02-03] MEDS: diphenhydrAMINE HCL 25 MG CAPSULE 50 MG PO (16:34)
--- NOTE | 2024-02-03 19:14 | PM.EVENT ---
Event Note Date of Service: 02/04/24 Event Note: 2:40 am - Patient received chemical restraint due to agitation toward staff. Medications were ordered by psychiatry provider. I evaluated patient. He was alert, calm and no distress. Eating a snack. Cardiopulmonary exam unremarkable. Time Spent With Patient Time: Total time managing care of this patient today ____ minutes.
[2024-02-03] MEDS: Gabapentin 400 MG CAPSULE PO (20:52)
[2024-02-03] MEDS: traZODone HCL 50 MG TABLET PO (20:53)
--- NOTE | 2024-02-04 06:38 | P.PNPSI_ITS ---
Subjective Subjective Date of Service: 02/04/24 Reason For Visit: Schizoaffective disorder Subjective Notes: Gareth Gilmore Order, Section 7 and Section 8 Healthcare Proxy: Yes Guardianship: Yes Interim History: The nursing staff reported that yesterday in the morning was visible, redirectable but later on the day, he become very intrusive he went to other's patient's room and needed to security to be called. He received p.o. p.r.n. at 17:00. On interview the patient was sedated in the morning, no changes in his mental status still grossly psychotic. Mental Status Exam Mental Status Exam Patient Appearance: Appropriate Patient Orientation: Person and Situation Level of Consciousness: Awake and Inappropriate Patient Behavior: Guarded and Passive Mood Description: Withdrawn Affect Description: Blunted Patient Cognition Impaired: Yes Ability to Follow Directions: Poor Speech Pattern: Impoverished Hallucinations: Auditory Delusions: Paranoid Ideation and Ideas of Reference Thought Process: Distracted and Slowed Thinking Thought Content: positive for [place], positive for [place] and positive for Poverty of Content Judgement: Poor Diagnostics Vital Signs (24Hr): BMI result Body Mass Index 23.8 Medications Medications Current Medications Acetaminophen (Acetaminophen 325 Mg Tablet) 650 mg PO Q6H PRN PRN Reason: Headache/Pain Mild Scale (1-3) Last Admin: 01/17/24 23:53 Dose: 325 mg Al Hydroxide/Mg Hydroxide (Magnesium Hydrox/Alum Hydrox 30 Ml Oral.Susp) 30 ml PO Q6H PRN PRN Reason: Heartburn/Nausea Amlodipine Besylate (Amlodipine Besylate 10 Mg Tablet) 10 mg PO DAILY [facility]; Protocol Last Admin: 02/03/24 11:12 Dose: Not Given Aripiprazole (Aripiprazole 15 Mg Tablet) 15 mg PO DAILY [facility] Last Admin: 02/03/24 09:33 Dose: 15 mg Aspirin (Aspirin Enteric Coated 81 Mg Tablet.Dr) 81 mg PO DAILY [facility] Last Admin: 02/03/24 11:15 Dose: 81 mg Atorvastatin Calcium (Atorvastatin Calcium 40 Mg Tablet) 40 mg PO DAILY [facility] Last Admin: 02/03/24 09:32 Dose: 40 mg Carbamazepine (Carbamazepine 200 Mg Tablet) 200 mg PO BID [facility] Last Admin: 02/03/24 20:52 Dose: 200 mg Diphenhydramine HCl (Diphenhydramine Hcl 25 Mg Capsule) 50 mg PO Q8H PRN PRN Reason: agitation Last Admin: 02/03/24 16:34 Dose: 50 mg Ferrous Sulfate (Ferrous Sulfate 324 Mg Tablet.Dr) 324 mg PO BIDWM [facility] Last Admin: 02/03/24 16:59 Dose: Not Given Gabapentin (Gabapentin 400 Mg Capsule) 400 mg PO TID [facility] Last Admin: 02/03/24 20:52 Dose: 400 mg Haloperidol Lactate (Haloperidol Lactate Oral Conc 10 Mg/5 Ml Oral.Conc) 10 mg PO BID [facility] Last Admin: 02/03/24 20:53 Dose: 10 mg Haloperidol Lactate (Haloperidol Lactate 5 Mg/Ml Vial) 10 mg IM BID PRN PRN Reason: Refusal of Court PO Haldol Last Admin: 02/02/24 19:25 Dose: 10 mg Haloperidol Lactate (Haloperidol Lactate Oral Conc 10 Mg/5 Ml Oral.Conc) 5 mg PO Q6H PRN PRN Reason: Psychosis or severe agitation Last Admin: 02/03/24 15:52 Dose: 5 mg Hydroxyzine HCl (Hydroxyzine Hcl 25 Mg Tablet) 25 mg PO Q6H PRN PRN Reason: Anxiety Last Admin: 02/03/24 15:52 Dose: 25 mg Lorazepam (Lorazepam 1 Mg Tablet) 2 mg PO Q6H PRN PRN Reason: Restlessness Last Admin: 02/03/24 16:34 Dose: 2 mg Magnesium Hydroxide (Milk Of Magnesia 30 Ml Oral.Susp) 30 ml PO DAILY PRN PRN Reason: Constipation Nicotine Polacrilex (Nicotine Polacrilex 2 Mg Gum) 2 mg BUCCAL Q2H PRN PRN Reason: Nicotine Cravings Trazodone HCl (Trazodone Hcl 50 Mg Tablet) 50 mg PO BEDTIME MRX1 PRN PRN Reason: Insomnia Last Admin: 02/03/24 20:53 Dose: 50 mg Valproic Acid (Valproic Acid Liquid 250 Mg/5 Ml Solution) 500 mg PO BID [facility] Last Admin: 02/03/24 20:53 Dose: 500 mg Vitamin D (Cholecalciferol (Vitamin D3) 25 Mcg Tablet) 50 mcg PO DAILY [facility] Last Admin: 02/03/24 11:12 Dose: Not Given Allergies Allergies Allergy/AdvReac Type Severity Reaction Status Date / Time lithium Allergy Unknown Verified 01/13/24 18:08 Assessment & Plan Assessment & Plan (1) Schizoaffective disorder, bipolar type: Status: Acute Code(s): F25.0 - Schizoaffective disorder, bipolar type (2) Hypertension: Status: Acute Code(s): I10 - Essential (primary) hypertension (3) Diabetes mellitus: Status: Acute Code(s): E11.9 - Type 2 diabetes mellitus without complications Plan 68 [facility] with chronic psychotic disorder, refusing medication , elevated bp and disorganized and agitated behavior requiring psychiatric hospitalization and treatment not competent to sign cv. 01/14 continue to follow - gave lambs warning today- and he says the parks recreation director will be a she- still refusing medications and quite psychotic takes alot of redirection to settle him poor adls- 01/15- Refuses meds, refuses hospitalist consult-second day File for Section Seven consideration on 01/17. Provide care as he will allow. 01/16: Depakote 250 mg bid Haldol, Lorazepam, Benadryl prn Section 7 to be filed 01/17 Message left for guardian. 01/17: Section [address] filed. . Court scheduled 01/26/24 Pt continues to refuse medicaitons. He is in need of full assist with ADL's and is incontinent. Pt transferred to [facility] this afternoon. 01/19/2024 Patient pending civil commitment loud agitated would not engage in any conver sation with this copy writer non informational healing agitated verbally aggressive. Every attempt being made to get a copy of the patient's Servin order unclear why this has been so problematic. Encourage food and fluids 01/19 continue same treatment 01/21/24 Patient labile agitated intrusive close labs ordered in order to per to protect the community patient wandering into patient's rooms intrusive impulsive laying on another person's bed. Often hostile agitated posturing at times we are still pending copy of reported Servin order encourage p.o. compliance 01/22/2024 Patient did require physical hold escort him out of a room that he jumped in other patient's room and on their bed while there were in it. There was no physical harm and the patient did leave the room his markedly impulsive with poor judgment remains on close observation has intermittently taken Haldol liquid pending civil commitment treatment plan there is a question of Servin order 01/22 The patient had been more agitated. We review his Servin order and we are increasing the Abilify up to 15 mg p.o. daily and adding Haldol p.r.n. since it is in his role years order. We needed to give him some p.r.n. at 14:00. 01/23 The patient is grossly psychotic disrobing and sexually disinhibited we are starting Haldol 2 mg p.o. t.i.d. to target psychosis as per court order treatment over objection order. 01/24 The patient remains very agitated and angry disruptive so we are increasing the Haldol from 2 mg to 5 mg p.o. t.i.d. with a backup IM if the patient refused as per court order. 01/25 we have increased the Haldol but still he is very psychotic and restless. Today he refused his blood work. He needed to be physically held twice. 01/26 the patient remains agitated at times but his last IM backup was yesterday. We are going to increase Abilify up to 20 mg daily to target mood lability and psychosis. 01/29/2024: Increase frequency of prn doses from tid to prn q 6mrs. Poor insight and unable to care for self Plan 1. Increase Abilify up to 15 mg p.o. daily on January 26. 2. Continue titration of Haldol up to 10 mg p.o. b.i.d. as per court order. 3. Backup IM as per court order. 4. Continue 15 minute checks. 5. Continue with other psychotropics. 6. On February 02 we increased gabapentin from 300 t.i.d. to 400 p.o. t.i.d.. 7. The patient has not cooperate for blood work and we could not have titrated his Depakote. We will try to guide a new level tomorrow morning. Reason for continued inpatient stay Substantial Risk for: inability to function, rapid decompensation and med/psych decompensation Time Spent With Patient Time: Total time managing care of this patient today __20__ minutes.
--- NOTE | 2024-02-04 09:00 | PC.NURSE ---
Refused blood work despite education and encouragement. Dr. Watson notified.
[2024-02-04 09:24] VITALS: BP 145/67; PULSE 77; RESP 18; TEMP 36.2; O2SAT 98
[2024-02-04 09:29] VITALS: BP 145/67
[2024-02-04] MEDS: amLODIPine Besylate 10 MG TABLET PO (09:29)
[2024-02-04] MEDS: Haloperidol Lactate Oral Conc 10 MG/5 ML ORAL.CONC PO (09:29)
[2024-02-04] MEDS: ARIPiprazole 15 MG TABLET PO (09:29)
[2024-02-04] MEDS: carBAMazepine 200 MG TABLET PO (09:30)
[2024-02-04] MEDS: Atorvastatin Calcium 40 MG TABLET PO (09:30)
[2024-02-04] MEDS: Valproic Acid Liquid 250 MG/5 ML SOLUTION 500 MG PO (09:30)
[2024-02-04] MEDS: Gabapentin 400 MG CAPSULE PO (09:30)
[2024-02-04] MEDS: Haloperidol Lactate 5 MG/ML VIAL 10 MG IM (20:28)
--- NOTE | 2024-02-05 06:39 | P.PNPSI_ITS ---
Subjective Subjective Date of Service: 02/05/24 Reason For Visit: Schizoaffective disorder Subjective Notes: Servin Order, Section 7, Section 8 and Conditional Voluntary Healthcare Proxy: Yes Guardianship: Yes Interim History: The nursing staff reported the patient had being intrusive at times, he had been compliant with medications as per court order with backup IM. On interview the patient looks very sedated and disorganized. We will keep on the same medications. Mental Status Exam Mental Status Exam Patient Appearance: Appropriate and Unkempt Patient Orientation: Person Level of Consciousness: Awake and Appropriate Patient Behavior: Guarded and Passive Mood Description: Withdrawn Affect Description: Blunted Patient Cognition Impaired: Yes Ability to Follow Directions: Fair Speech Pattern: Clear Hallucinations: None Delusions: Paranoid Ideation and Ideas of Reference Thought Process: Distracted and Slowed Thinking Thought Content: positive for [place], positive for Poverty of Content and positive for Thought Blocking Judgement: Poor Diagnostics Vital Signs (24Hr): Vital Signs - 24 hr 02/04/24 09:24 02/04/24 09:29 Temperature 97.2 F Pulse Rate 77 Respiratory Rate 18 Blood Pressure 145/67 H 145/67 H Pulse Oximetry 98 Oxygen Delivery Method Room Air BMI result Body Mass Index 23.8 Medications Medications Current Medications Acetaminophen (Acetaminophen 325 Mg Tablet) 650 mg PO Q6H PRN PRN Reason: Headache/Pain Mild Scale (1-3) Last Admin: 01/17/24 23:53 Dose: 325 mg Al Hydroxide/Mg Hydroxide (Magnesium Hydrox/Alum Hydrox 30 Ml Oral.Susp) 30 ml PO Q6H PRN PRN Reason: Heartburn/Nausea Amlodipine Besylate (Amlodipine Besylate 10 Mg Tablet) 10 mg PO DAILY [facility]; Protocol Last Admin: 02/04/24 09:29 Dose: 10 mg Aripiprazole (Aripiprazole 15 Mg Tablet) 15 mg PO DAILY [facility] Last Admin: 02/04/24 09:29 Dose: 15 mg Aspirin (Aspirin Enteric Coated 81 Mg Tablet.Dr) 81 mg PO DAILY [facility] Last Admin: 02/03/24 11:15 Dose: 81 mg Atorvastatin Calcium (Atorvastatin Calcium 40 Mg Tablet) 40 mg PO DAILY [facility] Last Admin: 02/04/24 09:30 Dose: 40 mg Carbamazepine (Carbamazepine 200 Mg Tablet) 200 mg PO BID [facility] Last Admin: 02/04/24 22:14 Dose: Not Given Diphenhydramine HCl (Diphenhydramine Hcl 25 Mg Capsule) 50 mg PO Q8H PRN PRN Reason: agitation Last Admin: 02/03/24 16:34 Dose: 50 mg Ferrous Sulfate (Ferrous Sulfate 324 Mg Tablet.Dr) 324 mg PO BIDWM [facility] Last Admin: 02/04/24 16:42 Dose: Not Given Gabapentin (Gabapentin 400 Mg Capsule) 400 mg PO TID [facility] Last Admin: 02/04/24 22:15 Dose: Not Given Haloperidol Lactate (Haloperidol Lactate Oral Conc 10 Mg/5 Ml Oral.Conc) 10 mg PO BID [facility] Last Admin: 02/04/24 22:15 Dose: Not Given Haloperidol Lactate (Haloperidol Lactate 5 Mg/Ml Vial) 10 mg IM BID PRN PRN Reason: Refusal of Court PO Haldol Last Admin: 02/04/24 20:28 Dose: 10 mg Haloperidol Lactate (Haloperidol Lactate Oral Conc 10 Mg/5 Ml Oral.Conc) 5 mg PO Q6H PRN PRN Reason: Psychosis or severe agitation Last Admin: 02/03/24 15:52 Dose: 5 mg Hydroxyzine HCl (Hydroxyzine Hcl 25 Mg Tablet) 25 mg PO Q6H PRN PRN Reason: Anxiety Last Admin: 02/03/24 15:52 Dose: 25 mg Lorazepam (Lorazepam 1 Mg Tablet) 2 mg PO Q6H PRN PRN Reason: Restlessness Last Admin: 02/03/24 16:34 Dose: 2 mg Magnesium Hydroxide (Milk Of Magnesia 30 Ml Oral.Susp) 30 ml PO DAILY PRN PRN Reason: Constipation Nicotine Polacrilex (Nicotine Polacrilex 2 Mg Gum) 2 mg BUCCAL Q2H PRN PRN Reason: Nicotine Cravings Trazodone HCl (Trazodone Hcl 50 Mg Tablet) 50 mg PO BEDTIME MRX1 PRN PRN Reason: Insomnia Last Admin: 02/03/24 20:53 Dose: 50 mg Valproic Acid (Valproic Acid Liquid 250 Mg/5 Ml Solution) 500 mg PO BID [facility] Last Admin: 02/04/24 22:15 Dose: Not Given Vitamin D (Cholecalciferol (Vitamin D3) 25 Mcg Tablet) 50 mcg PO DAILY [facility] Last Admin: 02/04/24 09:44 Dose: Not Given Allergies Allergies Allergy/AdvReac Type Severity Reaction Status Date / Time lithium Allergy Unknown Verified 01/13/24 18:08 Assessment & Plan Assessment & Plan (1) Schizoaffective disorder, bipolar type: Status: Acute Code(s): F25.0 - Schizoaffective disorder, bipolar type (2) Hypertension: Status: Acute Code(s): I10 - Essential (primary) hypertension (3) Diabetes mellitus: Status: Acute Code(s): E11.9 - Type 2 diabetes mellitus without complications Plan 68 yo from a residential with chronic psychotic disorder, refusing medication , elevated bp and disorganized and agitated behavior requiring psychiatric hospitalization and treatment not competent to sign cv. 01/14 continue to follow - gave lambs warning today- and he says the sales property manager will be a she- still refusing medications and quite psychotic takes alot of redirection to settle him poor adls- 01/15- Refuses meds, refuses hospitalist consult-second day File for Section Seven consideration on 01/17. Provide care as he will allow. 01/16: Depakote 250 mg bid Haldol, Lorazepam, Benadryl prn Section 7 to be filed 01/17 Message left for guardian. 01/17: Section Seven filed. . Court scheduled 01/26/24 Pt continues to refuse medicaitons. He is in need of full assist with ADL's and is incontinent. Pt transferred to [facility] this afternoon. 01/19/2024 Patient pending civil commitment loud agitated would not engage in any conversation with this grant writer non informational healing agitated verbally aggressive. Every attempt being made to get a copy of the patient's Servin order unclear why this has been so problematic. Encourage food and fluids 01/19 continue same treatment 01/21/24 Patient labile agitated intrusive close labs ordered in order to per to protect the community patient wandering into patient's rooms intrusive impulsive laying on another person's bed. Often hostile agitated posturing at times we are still pending copy of reported Servin order encourage p.o. compliance 01/22/2024 Patient did require physical hold escort him out of a room that he jumped in other patient's room and on their bed while there were in it. There was no physical harm and the patient did leave the room his markedly impulsive with poor judgment remains on close observation has intermittently taken Haldol liquid pending civil commitment treatment plan there is a question of Servin order 01/22 The patient had been more agitated. We review his Servin order and we are increasing the Abilify up to 15 mg p.o. daily and adding Haldol p.r.n. since it is in his role years order. We needed to give him some p.r.n. at 14:00. 01/23 The patient is grossly psychotic disrobing and sexually disinhibited we are starting Haldol 2 mg p.o. t.i.d. to target psychosis as per court order treatment over objection order. 01/24 The patient remains very agitated and angry disruptive so we are increasing the Haldol from 2 mg to 5 mg p.o. t.i.d. with a backup IM if the patient refused as per court order. 01/25 we have increased the Haldol but still he is very psychotic and restless. Today he refused his blood work. He needed to be physically held twice. 01/26 the patient remains agitated at times but his last IM backup was yesterday. We are going to increase Abilify up to 20 mg daily to target mood lability and psychosis. 01/29/2024: Increase frequency of prn doses from tid to prn q 6mrs. Poor insight and unable to care for self Plan 1. Increase Abilify up to 15 mg p.o. daily on January 26. 2. Continue titration of Haldol up to 10 mg p.o. b.i.d. as per court order. 3. Backup IM as per court order. 4. Continue 15 minute checks. 5. Continue with other psychotropics. 6. On February 02 we increased gabapentin from 300 t.i.d. to 400 p.o. t.i.d.. 7. The patient has not cooperate for blood work and we could not have titrated his Depakote. We will try to get a new level on February 03 but the patient refused blood work. Reason for continued inpatient stay Substantial Risk for: inability to function, rapid decompensation and med/psych decompensation Time Spent With Patient Time: Total time managing care of this patient today __20__ minutes.
[2024-02-05 07:59] VITALS: BP 168/92; PULSE 102; RESP 20; TEMP 36.8; O2SAT 100
--- NOTE | 2024-02-05 08:23 | PC.NURSE ---
Blood pressure 168/92 and Bret denied headache or double vision. Dr. Williamson notified.
[2024-02-05] MEDS: Haloperidol Lactate 5 MG/ML VIAL 10 MG IM ×2 (09:10→20:30)
--- NOTE | 2024-02-05 09:10 | PC.NURSE ---
Bret declined all morning medications but willingly accepted IM Haldol. Education and encouragement provided regarding medication regimen and adherence. Dr. Williamson notified.
[2024-02-05 20:00] VITALS: RESP 18
--- NOTE | 2024-02-05 20:55 | PC.NURSE ---
Patient refused PO haldol. Accepted IM back up per paige order with no issue.
[2024-02-06] MEDS: Haloperidol Lactate 5 MG/ML VIAL 10 MG IM ×2 (12:18→20:31)
[2024-02-06 12:29] VITALS: RESP 16
--- NOTE | 2024-02-06 13:28 | HO.PSYCHPN ---
Subjective Subjective Date of Service: 02/06/24 Reason For Visit: Schizoaffective disorder Subjective Notes: Section 7 and Section 8 Interim History: The nursing staff reported the patient took Haldol IM twice, he had been slamming doors. Today in the afternoon he was pleasant, tired. We are increasing gabapentin up to 600 mg p.o. t.i.d. Mental Status Exam Mental Status Exam Patient Appearance: Unkempt Patient Orientation: Person Level of Consciousness: Awake Patient Behavior: Guarded and Passive Mood Description: Withdrawn Affect Description: Blunted Patient Cognition Impaired: Yes Ability to Follow Directions: Good Speech Pattern: Clear Hallucinations: Auditory Delusions: Paranoid Ideation and Ideas of Reference Thought Process: Illogical and Slowed Thinking Thought Content: positive for [place] and positive for Poverty of Content Judgement: Poor Diagnostics Vital Signs (24Hr): Vital Signs - 24 hr 02/05/24 20:00 02/06/24 12:29 Respiratory Rate 18 16 BMI result Body Mass Index 23.8 Medications Medications Current Medications Acetaminophen (Acetaminophen 325 Mg Tablet) 650 mg PO Q6H PRN PRN Reason: Headache/Pain Mild Scale (1-3) Last Admin: 01/17/24 23:53 Dose: 325 mg Al Hydroxide/Mg Hydroxide (Magnesium Hydrox/Alum Hydrox 30 Ml Oral.Susp) 30 ml PO Q6H PRN PRN Reason: Heartburn/Nausea Amlodipine Besylate (Amlodipine Besylate 10 Mg Tablet) 10 mg PO DAILY [facility]; Protocol Last Admin: 02/06/24 12:04 Dose: Not Given Aripiprazole (Aripiprazole 15 Mg Tablet) 15 mg PO DAILY [facility] Last Admin: 02/06/24 12:18 Dose: Not Given Aspirin (Aspirin Enteric Coated 81 Mg Tablet.) 81 mg PO DAILY [facility] Last Admin: 02/06/24 12:04 Dose: Not Given Atorvastatin Calcium (Atorvastatin Calcium 40 Mg Tablet) 40 mg PO DAILY [facility] Last Admin: 02/06/24 12:05 Dose: Not Given Carbamazepine (Carbamazepine 200 Mg Tablet) 200 mg PO BID [facility] Last Admin: 02/06/24 12:05 Dose: Not Given Diphenhydramine HCl (Diphenhydramine Hcl 25 Mg Capsule) 50 mg PO Q8H PRN PRN Reason: agitation Last Admin: 02/03/24 16:34 Dose: 50 mg Ferrous Sulfate (Ferrous Sulfate 324 Mg Tablet.) 324 mg PO BIDWM [facility] Last Admin: 02/06/24 12:04 Dose: Not Given Gabapentin (Gabapentin 300 Mg Capsule) 600 mg PO TID [facility] Last Admin: 02/06/24 12:05 Dose: Not Given Haloperidol Lactate (Haloperidol Lactate Oral Conc 10 Mg/5 Ml Oral.Conc) 10 mg PO BID [facility] Last Admin: 02/06/24 12:18 Dose: Not Given Haloperidol Lactate (Haloperidol Lactate 5 Mg/Ml Vial) 10 mg IM BID PRN PRN Reason: Refusal of Court PO Haldol Last Admin: 02/06/24 12:18 Dose: 10 mg Haloperidol Lactate (Haloperidol Lactate Oral Conc 10 Mg/5 Ml Oral.Conc) 5 mg PO Q6H PRN PRN Reason: Psychosis or severe agitation Last Admin: 02/03/24 15:52 Dose: 5 mg Hydroxyzine HCl (Hydroxyzine Hcl 25 Mg Tablet) 25 mg PO Q6H PRN PRN Reason: Anxiety Last Admin: 02/03/24 15:52 Dose: 25 mg Lorazepam (Lorazepam 1 Mg Tablet) 2 mg PO Q6H PRN PRN Reason: Restlessness Last Admin: 02/03/24 16:34 Dose: 2 mg Magnesium Hydroxide (Milk Of Magnesia 30 Ml Oral.Susp) 30 ml PO DAILY PRN PRN Reason: Constipation Nicotine Polacrilex (Nicotine Polacrilex 2 Mg Gum) 2 mg BUCCAL Q2H PRN PRN Reason: Nicotine Cravings Trazodone HCl (Trazodone Hcl 50 Mg Tablet) 50 mg PO BEDTIME MRX1 PRN PRN Reason: Insomnia Last Admin: 02/03/24 20:53 Dose: 50 mg Valproic Acid (Valproic Acid Liquid 250 Mg/5 Ml Solution) 500 mg PO BID [facility] Last Admin: 02/06/24 12:05 Dose: Not Given Vitamin D (Cholecalciferol (Vitamin D3) 25 Mcg Tablet) 50 mcg PO DAILY [facility] Last Admin: 02/06/24 12:05 Dose: Not Given Allergies Allergies Allergy/AdvReac Type Severity Reaction Status Date / Time lithium Allergy Unknown Verified 01/13/24 18:08 Assessment & Plan Assessment & Plan (1) Schizoaffective disorder, bipolar type: Status: Acute Code(s): F25.0 - Schizoaffective disorder, bipolar type (2) Hypertension: Status: Acute Code(s): I10 - Essential (primary) hypertension (3) Diabetes mellitus: Status: Acute Code(s): E11.9 - Type 2 diabetes mellitus without complications Plan 68 yo from a senior living with chronic psychotic disorder, refusing medication , elevated bp and disorganized and agitated behavior requiring psychiatric hospitalization and treatment not competent to sign cv. 01/14 continue to follow - gave lambs warning today- and he says the cardiac catheterization technician will be a she- still refusing medications and quite psychotic takes alot of redirection to settle him poor adls- 01/15- Refuses meds, refuses hospitalist consult-second day File for Section Seven consideration on 01/17. Provide care as he will allow. 01/16: Depakote 250 mg bid Haldol, Lorazepam, Benadryl prn Section 7 to be filed 01/17 Message left for guardian. 01/17: Section Seven filed. . Court scheduled 01/26/24 Pt continues to refuse medicaitons. He is in need of full assist with ADL's and is incontinent. Pt transferred to [facility] this afternoon. 01/19/2024 Patient pending civil commitment loud agitated would not engage in any conversation with this policy writer sales non informational healing agitated verbally aggressive. Every attempt being made to get a copy of the patient's Servin order unclear why this has been so problematic. Encourage food and fluids 01/19 continue same treatment 01/21/24 Patient labile agitated intrusive close labs ordered in order to per to protect the community patient wandering into patient's rooms intrusive impulsive laying on another person's bed. Often hostile agitated posturing at times we are still pending copy of reported Servin order encourage p.o. compliance 01/22/2024 Patient did require physical hold escort him out of a room that he jumped in other patient's room and on their bed while there were in it. There was no physical harm and the patient did leave the room his markedly impulsive with poor judgment remains on close observation has intermittently taken Haldol liquid pending civil commitment treatment plan there is a question of Servin order 01/22 The patient had been more agitated. We review his Servin order and we are increasing the Abilify up to 15 mg p.o. daily and adding Haldol p.r.n. since it is in his role years order. We needed to give him some p.r.n. at 14:00. 01/23 The patient is grossly psychotic disrobing and sexually disinhibited we are starting Haldol 2 mg p.o. t.i.d. to target psychosis as per court order treatment over objection order. 01/24 The patient remains very agitated and angry disruptive so we are increasing the Haldol from 2 mg to 5 mg p.o. t.i.d. with a backup IM if the patient refused as per court order. 01/25 we have increased the Haldol but still he is very psychotic and restless. Today he refused his blood work. He needed to be physically held twice. 01/26 the patient remains agitated at times but his last IM backup was yesterday. We are going to increase Abilify up to 20 mg daily to target mood lability and psychosis. 01/29/2024: Increase frequency of prn doses from tid to prn q 6mrs. Poor insight and unable to care for self Plan 1. Increase Abilify up to 15 mg p.o. daily on January 26. 2. Continue titration of Haldol up to 10 mg p.o. b.i.d. as per court order. 3. Backup IM as per court order. 4. Continue 15 minute checks. 5. Continue with other psychotropics. 6. On February 02 we increased gabapentin from 300 t.i.d. to 400 p.o. t.i.d.. On February 05 we are increasing gabapentin up to 600 mg p.o. t.i.d. 7. The patient has not cooperate for blood work and we could not have titrated his Depakote. We will try to get a new level on February 03 but the patient refused blood work. Reason for continued inpatient stay Substantial Risk for: inability to function, rapid decompensation and med/psych decompensation Time Spent With Patient Time: Total time managing care of this patient today _20___ minutes.
[2024-02-06 20:00] VITALS: RESP 18
--- NOTE | 2024-02-06 20:41 | PC.NURSE ---
Patient refused scheduled court ordered haldol. IM haldol back up administered in left deltoid without issue.
[2024-02-07 08:00] VITALS: BP 153/74; PULSE 100; RESP 18; TEMP 36.8
[2024-02-07] MEDS: Haloperidol Lactate 5 MG/ML VIAL 10 MG IM ×2 (08:26→20:28)
--- NOTE | 2024-02-07 16:03 | HO.PSYCHPN ---
Subjective Subjective Date of Service: 02/07/24 Reason For Visit: Schizoaffective disorder Subjective Notes: Section 7 and Section 8 Interim History: The nursing staff reported the patient needed IM Haldol backup as per court order. He slept 6 hours. On interview the patient was sedated. Still grossly psychotic. Mental Status Exam Mental Status Exam Patient Appearance: Disheveled Patient Orientation: Person Level of Consciousness: Restless Patient Behavior: Guarded Mood Description: Calm Affect Description: Blunted Patient Cognition Impaired: Yes Ability to Follow Directions: Good Speech Pattern: Clear Hallucinations: None Delusions: Paranoid Ideation and Ideas of Reference Thought Process: Distracted and Slowed Thinking Thought Content: positive for [place] and positive for Poverty of Content Judgement: Fair Diagnostics Vital Signs (24Hr): Vital Signs - 24 hr 02/06/24 20:00 02/07/24 08:00 Temperature 98.3 F Pulse Rate 100 Respiratory Rate 18 18 Blood Pressure 153/74 H BMI result Body Mass Index 23.8 Medications Medications Current Medications Acetaminophen (Acetaminophen 325 Mg Tablet) 650 mg PO Q6H PRN PRN Reason: Headache/Pain Mild Scale (1-3) Last Admin: 01/17/24 23:53 Dose: 325 mg Al Hydroxide/Mg Hydroxide (Magnesium Hydrox/Alum Hydrox 30 Ml Oral.Susp) 30 ml PO Q6H PRN PRN Reason: Heartburn/Nausea Amlodipine Besylate (Amlodipine Besylate 10 Mg Tablet) 10 mg PO DAILY [facility]; Protocol Last Admin: 02/07/24 08:32 Dose: Not Given Aripiprazole (Aripiprazole 15 Mg Tablet) 15 mg PO DAILY [facility] Last Admin: 02/07/24 08:32 Dose: Not Given Aspirin (Aspirin Enteric Coated 81 Mg Tablet.) 81 mg PO DAILY [facility] Last Admin: 02/07/24 08:32 Dose: Not Given Atorvastatin Calcium (Atorvastatin Calcium 40 Mg Tablet) 40 mg PO DAILY [facility] Last Admin: 02/07/24 08:33 Dose: Not Given Carbamazepine (Carbamazepine 200 Mg Tablet) 200 mg PO BID [facility] Last Admin: 02/07/24 08:33 Dose: Not Given Diphenhydramine HCl (Diphenhydramine Hcl 25 Mg Capsule) 50 mg PO Q8H PRN PRN Reason: agitation Last Admin: 02/03/24 16:34 Dose: 50 mg Ferrous Sulfate (Ferrous Sulfate 324 Mg Tablet.) 324 mg PO BIDWM [facility] Last Admin: 02/07/24 08:32 Dose: Not Given Gabapentin (Gabapentin 300 Mg Capsule) 600 mg PO TID [facility] Last Admin: 02/07/24 14:28 Dose: Not Given Haloperidol Lactate (Haloperidol Lactate Oral Conc 10 Mg/5 Ml Oral.Conc) 10 mg PO BID [facility] Last Admin: 02/07/24 08:36 Dose: Not Given Haloperidol Lactate (Haloperidol Lactate 5 Mg/Ml Vial) 10 mg IM BID PRN PRN Reason: Refusal of Court PO Haldol Last Admin: 02/07/24 08:26 Dose: 10 mg Haloperidol Lactate (Haloperidol Lactate Oral Conc 10 Mg/5 Ml Oral.Conc) 5 mg PO Q6H PRN PRN Reason: Psychosis or severe agitation Last Admin: 02/03/24 15:52 Dose: 5 mg Hydroxyzine HCl (Hydroxyzine Hcl 25 Mg Tablet) 25 mg PO Q6H PRN PRN Reason: Anxiety Last Admin: 02/03/24 15:52 Dose: 25 mg Lorazepam (Lorazepam 1 Mg Tablet) 2 mg PO Q6H PRN PRN Reason: Restlessness Last Admin: 02/03/24 16:34 Dose: 2 mg Magnesium Hydroxide (Milk Of Magnesia 30 Ml Oral.Susp) 30 ml PO DAILY PRN PRN Reason: Constipation Nicotine Polacrilex (Nicotine Polacrilex 2 Mg Gum) 2 mg BUCCAL Q2H PRN PRN Reason: Nicotine Cravings Trazodone HCl (Trazodone Hcl 50 Mg Tablet) 50 mg PO BEDTIME MRX1 PRN PRN Reason: Insomnia Last Admin: 02/03/24 20:53 Dose: 50 mg Valproic Acid (Valproic Acid Liquid 250 Mg/5 Ml Solution) 500 mg PO BID [facility] Last Admin: 02/07/24 08:34 Dose: Not Given Vitamin D (Cholecalciferol (Vitamin D3) 25 Mcg Tablet) 50 mcg PO DAILY [facility] Last Admin: 02/07/24 08:34 Dose: Not Given Allergies Allergies Allergy/AdvReac Type Severity Reaction Status Date / Time lithium Allergy Unknown Verified 01/13/24 18:08 Assessment & Plan Assessment & Plan (1) Schizoaffective disorder, bipolar type: Status: Acute Code(s): F25.0 - Schizoaffective disorder, bipolar type (2) Hypertension: Status: Acute Code(s): I10 - Essential (primary) hypertension (3) Diabetes mellitus: Status: Acute Code(s): E11.9 - Type 2 diabetes mellitus without complications Plan 68 yo from a detention with chronic psychotic disorder, refusing medication , elevated bp and disorganized and agitated behavior requiring psychiatric hospitalization and treatment not competent to sign cv. 01/14 continue to follow - gave lambs warning today- and he says the derrick boat runner will be a she- still refusing medications and quite psychotic takes alot of redirection to settle him poor adls- 01/15- Refuses meds, refuses hospitalist consult-second day File for Section Seven consideration on 01/17. Provide care as he will allow. 01/16: Depakote 250 mg bid Haldol, Lorazepam, Benadryl prn Section 7 to be filed 01/17 Message left for guardian. 01/17: Section Seven filed. . Court scheduled 01/26/24 Pt continues to refuse medicaitons. He is in need of full assist with ADL's and is incontinent. Pt transferred to [facility] this afternoon. 01/19/2024 Patient pending civil commitment loud agitated would not engage in any conversation with this machine sign writer non informational healing agitated verbally aggressive. Every attempt being made to get a copy of the patient's Servin order unclear why this has been so problematic. Encourage food and fluids 01/19 continue same treatment 01/21/24 Patient labile agitated intrusive close labs ordered in order to per to protect the community patient wandering into patient's rooms intrusive impulsive laying on another person's bed. Often hostile agitated posturing at times we are still pending copy of reported Servin order encourage p.o. compliance 01/22/2024 Patient did require physical hold escort him out of a room that he jumped in other patient's room and on their bed while there were in it. There was no physical harm and the patient did leave the room his markedly impulsive with poor judgment remains on close observation has intermittently taken Haldol liquid pending civil commitment treatment plan there is a question of Servin order 01/22 The patient had been more agitated. We review his Servin order and we are increasing the Abilify up to 15 mg p.o. daily and adding Haldol p.r.n. since it is in his role years order. We needed to give him some p.r.n. at 14:00. 01/23 The patient is grossly psychotic disrobing and sexually disinhibited we are starting Haldol 2 mg p.o. t.i.d. to target psychosis as per court order treatment over objection order. 01/24 The patient remains very agitated and angry disruptive so we are increasing the Haldol from 2 mg to 5 mg p.o. t.i.d. with a backup IM if the patient refused as per court order. 01/25 we have increased the Haldol but still he is very psychotic and restless. Today he refused his blood work. He needed to be physically held twice. 01/26 the patient remains agitated at times but his last IM backup was yesterday. We are going to increase Abilify up to 20 mg daily to target mood lability and psychosis. 01/29/2024: Increase frequency of prn doses from tid to prn q 6mrs. Poor insight and unable to care for self Plan 1. Increase Abilify up to 15 mg p.o. daily on January 26. 2. Continue titration of Haldol up to 10 mg p.o. b.i.d. as per court order. 3. Backup IM as per court order. 4. Continue 15 minute checks. 5. Continue with other psychotropics. 6. On February 02 we increased gabapentin from 300 t.i.d. to 400 p.o. t.i.d.. On February 05 we are increasing gabapentin up to 600 mg p.o. t.i.d. 7. The patient has not cooperate for blood work and we could not have titrated his Depakote. We will try to get a new level on February 03 but the patient refused blood work. Reason for continued inpatient stay Substantial Risk for: inability to function, rapid decompensation and med/psych decompensation Time Spent With Patient Time: Total time managing care of this patient today _20___ minutes.
[2024-02-07] MEDS: Haloperidol Lactate Oral Conc 10 MG/5 ML ORAL.CONC 5 MG PO (16:28)
[2024-02-07] MEDS: traZODone HCL 50 MG TABLET PO (21:47)
[2024-02-07] MEDS: diphenhydrAMINE HCL 25 MG CAPSULE 50 MG PO (21:47)
[2024-02-07] MEDS: hydrOXYzine HCL 25 MG TABLET PO (21:47)
[2024-02-08 08:00] VITALS: RESP 18
[2024-02-08] MEDS: Haloperidol Lactate 5 MG/ML VIAL 10 MG IM ×2 (09:06→20:37)
--- NOTE | 2024-02-08 12:50 | HO.PSYCHPN ---
Subjective Subjective Date of Service: 02/08/24 Reason For Visit: Schizoaffective disorder Subjective Notes: Conditional Voluntary Interim History: The nursing staff reported the patient had been refusing his medications he has not taking Abilify since last Tuesday he needed to be IM twice. He slept very poor last night. On interview the patient denies new symptoms looks psychotic. Mental Status Exam Mental Status Exam Patient Appearance: Inappropriate and Unkempt Patient Orientation: Person Level of Consciousness: Restless Patient Behavior: Guarded and Suspicious Mood Description: Withdrawn Affect Description: Labile and Blunted Patient Cognition Impaired: Yes Ability to Follow Directions: Poor Speech Pattern: Clear Hallucinations: None Delusions: Paranoid Ideation and Ideas of Reference Thought Process: Distracted and Slowed Thinking Thought Content: positive for [place] and positive for Poverty of Content Judgement: Poor Diagnostics Vital Signs (24Hr): BMI result Body Mass Index 23.8 Medications Medications Current Medications Acetaminophen (Acetaminophen 325 Mg Tablet) 650 mg PO Q6H PRN PRN Reason: Headache/Pain Mild Scale (1-3) Last Admin: 01/17/24 23:53 Dose: 325 mg Al Hydroxide/Mg Hydroxide (Magnesium Hydrox/Alum Hydrox 30 Ml Oral.Susp) 30 ml PO Q6H PRN PRN Reason: Heartburn/Nausea Amlodipine Besylate (Amlodipine Besylate 10 Mg Tablet) 10 mg PO DAILY [facility]; Protocol Last Admin: 02/08/24 09:15 Dose: Not Given Aripiprazole (Aripiprazole 15 Mg Tablet) 15 mg PO DAILY [facility] Last Admin: 02/08/24 09:15 Dose: Not Given Aspirin (Aspirin Enteric Coated 81 Mg Tablet.) 81 mg PO DAILY [facility] Last Admin: 02/08/24 09:15 Dose: Not Given Atorvastatin Calcium (Atorvastatin Calcium 40 Mg Tablet) 40 mg PO DAILY [facility] Last Admin: 02/08/24 09:15 Dose: Not Given Carbamazepine (Carbamazepine 200 Mg Tablet) 200 mg PO BID [facility] Last Admin: 02/08/24 09:15 Dose: Not Given Diphenhydramine HCl (Diphenhydramine Hcl 25 Mg Capsule) 50 mg PO Q8H PRN PRN Reason: agitation Last Admin: 02/07/24 21:47 Dose: 50 mg Ferrous Sulfate (Ferrous Sulfate 324 Mg Tablet.) 324 mg PO BIDWM [facility] Last Admin: 02/08/24 09:14 Dose: Not Given Gabapentin (Gabapentin 300 Mg Capsule) 600 mg PO TID [facility] Last Admin: 02/08/24 09:15 Dose: Not Given Haloperidol Lactate (Haloperidol Lactate Oral Conc 10 Mg/5 Ml Oral.Conc) 10 mg PO BID [facility] Last Admin: 02/08/24 09:15 Dose: Not Given Haloperidol Lactate (Haloperidol Lactate 5 Mg/Ml Vial) 10 mg IM BID PRN PRN Reason: Refusal of Court PO Haldol Last Admin: 02/08/24 09:06 Dose: 10 mg Haloperidol Lactate (Haloperidol Lactate Oral Conc 10 Mg/5 Ml Oral.Conc) 5 mg PO Q6H PRN PRN Reason: Psychosis or severe agitation Last Admin: 02/07/24 16:28 Dose: 5 mg Hydroxyzine HCl (Hydroxyzine Hcl 25 Mg Tablet) 25 mg PO Q6H PRN PRN Reason: Anxiety Last Admin: 02/07/24 21:47 Dose: 25 mg Lorazepam (Lorazepam 1 Mg Tablet) 2 mg PO Q6H PRN PRN Reason: Restlessness Last Admin: 02/03/24 16:34 Dose: 2 mg Magnesium Hydroxide (Milk Of Magnesia 30 Ml Oral.Susp) 30 ml PO DAILY PRN PRN Reason: Constipation Nicotine Polacrilex (Nicotine Polacrilex 2 Mg Gum) 2 mg BUCCAL Q2H PRN PRN Reason: Nicotine Cravings Trazodone HCl (Trazodone Hcl 50 Mg Tablet) 50 mg PO BEDTIME MRX1 PRN PRN Reason: Insomnia Last Admin: 02/07/24 21:47 Dose: 50 mg Valproic Acid (Valproic Acid Liquid 250 Mg/5 Ml Solution) 500 mg PO BID [facility] Last Admin: 02/08/24 09:16 Dose: Not Given Vitamin D (Cholecalciferol (Vitamin D3) 25 Mcg Tablet) 50 mcg PO DAILY [facility] Last Admin: 02/08/24 09:15 Dose: Not Given Allergies Allergies Allergy/AdvReac Type Severity Reaction Status Date / Time lithium Allergy Unknown Verified 01/13/24 18:08 Assessment & Plan Assessment & Plan (1) Schizoaffective disorder, bipolar type: Status: Acute Code(s): F25.0 - Schizoaffective disorder, bipolar type (2) Hypertension: Status: Acute Code(s): I10 - Essential (primary) hypertension (3) Diabetes mellitus: Status: Acute Code(s): E11.9 - Type 2 diabetes mellitus without complications Plan 68 yo from a senior living with chronic psychotic disorder, refusing medication , elevated bp and disorganized and agitated behavior requiring psychiatric hospitalization and treatment not competent to sign cv. 01/14 continue to follow - gave lambs warning today- and he says the criminal court judge will be a she- still refusing medications and quite psychotic takes alot of redirection to settle him poor adls- 01/15- Refuses meds, refuses hospitalist consult-second day File for Section Seven consideration on 01/17. Provide care as he will allow. 01/16: Depakote 250 mg bid Haldol, Lorazepam, Benadryl prn Section 7 to be filed 01/17 Message left for guardian. 01/17: Section Seven filed. . Court scheduled 01/26/24 Pt continues to refuse medicaitons. He is in need of full assist with ADL's and is incontinent. Pt transferred to [facility] this afternoon. 01/19/2024 Patient pending civil commitment loud agitated would not engage in any conversation with this investment underwriter non informational healing agitated verbally aggressive. Every attempt being made to get a copy of the patient's Servin order unclear why this has been so problematic. Encourage food and fluids 01/19 continue same treatment 01/21/24 Patient labile agitated intrusive close labs ordered in order to per to protect the community patient wandering into patient's rooms intrusive impulsive laying on another person's bed. Often hostile agitated posturing at times we are still pending copy of reported Servin order encourage p.o. compliance 01/22/2024 Patient did require physical hold escort him out of a room that he jumped in other patient's room and on their bed while there were in it. There was no physical harm and the patient did leave the room his markedly impulsive with poor judgment remains on close observation has intermittently taken Haldol liquid pending civil commitment treatment plan there is a question of Servin order 01/22 The patient had been more agitated. We review his Servin order and we are increasing the Abilify up to 15 mg p.o. daily and adding Haldol p.r.n. since it is in his role years order. We needed to give him some p.r.n. at 14:00. 01/23 The patient is grossly psychotic disrobing and sexually disinhibited we are starting Haldol 2 mg p.o. t.i.d. to target psychosis as per court order treatment over objection order. 01/24 The patient remains very agitated and angry disruptive so we are increasing the Haldol from 2 mg to 5 mg p.o. t.i.d. with a backup IM if the patient refused as per court order. 01/25 we have increased the Haldol but still he is very psychotic and restless. Today he refused his blood work. He needed to be physically held twice. 01/26 the patient remains agitated at times but his last IM backup was yesterday. We are going to increase Abilify up to 20 mg daily to target mood lability and psychosis. 01/29/2024: Increase frequency of prn doses from tid to prn q 6mrs. Poor insight and unable to care for self Plan 1. Increase Abilify up to 15 mg p.o. daily on January 26. 2. Continue titration of Haldol up to 10 mg p.o. b.i.d. as per court order. 3. Backup IM as per court order. 4. Continue 15 minute checks. 5. Continue with other psychotropics. 6. On February 02 we increased gabapentin from 300 t.i.d. to 400 p.o. t.i.d.. On February 05 we are increasing gabapentin up to 600 mg p.o. t.i.d. 7. The patient has not cooperate for blood work and we could not have titrated his Depakote. We will try to get a new level on February 03 but the patient refused blood work. Reason for continued inpatient stay Substantial Risk for: inability to function, rapid decompensation and med/psych decompensation Time Spent With Patient Time: Total time managing care of this patient today __20__ minutes.
[2024-02-08 19:36] VITALS: BP 127/60; PULSE 84; TEMP 35.9; O2SAT 98
[2024-02-09] MEDS: diphenhydrAMINE HCL 50 MG/ML VIAL IM ×3 (02:42→11:55)
[2024-02-09] MEDS: Haloperidol Lactate 5 MG/ML VIAL IM (02:42)
[2024-02-09] MEDS: LORazepam 2 MG/ML VIAL 1 MG IM ×2 (02:44→19:48)
[2024-02-09 07:00] VITALS: BMI 23.7
[2024-02-09 08:00] VITALS: BP 126/64; PULSE 84; RESP 20; TEMP 36.6; O2SAT 100
--- NOTE | 2024-02-09 08:58 | HO.PSYCHPN ---
Subjective Subjective Date of Service: 02/09/24 Reason For Visit: Schizoaffective disorder Subjective Notes: Section 7 Interim History: Pt slept about 2-3hrs at night. He was chemically restraint again due to agitation. This morning, pt intrusive with staff, pushing nurse and trying to get into nurses station, sexually inappropriate comments difficult to be redirected. He received scheduled haldol 10mg IM, ativan 2mg IM. He later laid down in bed, labs completed- CK elevated 2300, BUN 20, Cr 1.80 (unclear his Cr baseline). AST 93, ALT 51- suspect as CK goes down, LFT may improve. Mental Status Exam Mental Status Exam Narrative: Appearance: wearing hospital gown, fair hygine, pacing, loud, singing, intrusive Behavior: guarded, irritable Psychomotor: agitated Speech: mostly clear, normal rate/rhythm/volume, spontaneous TP: mostly linear TC: don't trusting anyone here Mood: fine Affect: labile SI: denies HI: denies VH/AH: internally preoccupied Delusions: sexualized delusions Insight/judgment: impaired x 2. memory/cog: alert, not oriented to situation Diagnostics Vital Signs (24Hr): Vital Signs - 24 hr 02/08/24 19:36 Temperature 96.7 F L Pulse Rate 84 Blood Pressure 127/60 Pulse Oximetry 98 Oxygen Delivery Method Room Air BMI result Body Mass Index 23.8 Labs 02/09/24 10:49 02/09/24 10:48 Medications Medications Current Medications Acetaminophen (Acetaminophen 325 Mg Tablet) 650 mg PO Q6H PRN PRN Reason: Headache/Pain Mild Scale (1-3) Last Admin: 01/17/24 23:53 Dose: 325 mg Al Hydroxide/Mg Hydroxide (Magnesium Hydrox/Alum Hydrox 30 Ml Oral.Susp) 30 ml PO Q6H PRN PRN Reason: Heartburn/Nausea Amlodipine Besylate (Amlodipine Besylate 10 Mg Tablet) 10 mg PO DAILY [facility]; Protocol Last Admin: 02/08/24 09:15 Dose: Not Given Aripiprazole (Aripiprazole 15 Mg Tablet) 15 mg PO DAILY [facility] Last Admin: 02/08/24 09:15 Dose: Not Given Aspirin (Aspirin Enteric Coated 81 Mg Tablet.) 81 mg PO DAILY [facility] Last Admin: 02/08/24 09:15 Dose: Not Given Atorvastatin Calcium (Atorvastatin Calcium 40 Mg Tablet) 40 mg PO DAILY [facility] Last Admin: 02/08/24 09:15 Dose: Not Given Carbamazepine (Carbamazepine 200 Mg Tablet) 200 mg PO BID [facility] Last Admin: 02/08/24 21:03 Dose: Not Given Diphenhydramine HCl (Diphenhydramine Hcl 25 Mg Capsule) 50 mg PO Q8H PRN PRN Reason: agitation Last Admin: 02/07/24 21:47 Dose: 50 mg Ferrous Sulfate (Ferrous Sulfate 324 Mg Tablet.Dr) 324 mg PO BIDWM [facility] Last Admin: 02/08/24 17:34 Dose: Not Given Gabapentin (Gabapentin 300 Mg Capsule) 600 mg PO TID [facility] Last Admin: 02/08/24 21:04 Dose: Not Given Haloperidol Lactate (Haloperidol Lactate 5 Mg/Ml Vial) 10 mg IM BID PRN PRN Reason: Refusal of Court PO Haldol Last Admin: 02/08/24 20:37 Dose: 10 mg Haloperidol Lactate (Haloperidol Lactate Oral Conc 10 Mg/5 Ml Oral.Conc) 5 mg PO Q6H PRN PRN Reason: Psychosis or severe agitation Last Admin: 02/07/24 16:28 Dose: 5 mg Haloperidol Lactate (Haloperidol Lactate Oral Conc 10 Mg/5 Ml Oral.Conc) 10 mg PO TID [facility] Hydroxyzine HCl (Hydroxyzine Hcl 25 Mg Tablet) 25 mg PO Q6H PRN PRN Reason: Anxiety Last Admin: 02/07/24 21:47 Dose: 25 mg Lorazepam (Lorazepam 1 Mg Tablet) 2 mg PO Q6H PRN PRN Reason: Restlessness Last Admin: 02/03/24 16:34 Dose: 2 mg Lorazepam (Lorazepam 1 Mg Tablet) 1 mg PO TID [facility] Lorazepam (Lorazepam 2 Mg/Ml Vial) 1 mg IM TID PRN PRN Reason: if refuses oral Lorazepam (Lorazepam 2 Mg/Ml Vial) 2 mg IM ONCE ONE Stop: 02/09/24 08:56 Magnesium Hydroxide (Milk Of Magnesia 30 Ml Oral.Susp) 30 ml PO DAILY PRN PRN Reason: Constipation Nicotine Polacrilex (Nicotine Polacrilex 2 Mg Gum) 2 mg BUCCAL Q2H PRN PRN Reason: Nicotine Cravings Olanzapine (Olanzapine 10 Mg Vial) 10 mg IM STAT STA Stop: 02/09/24 08:56 Trazodone HCl (Trazodone Hcl 50 Mg Tablet) 50 mg PO BEDTIME MRX1 PRN PRN Reason: Insomnia Last Admin: 02/07/24 21:47 Dose: 50 mg Valproic Acid (Valproic Acid Liquid 250 Mg/5 Ml Solution) 500 mg PO BID [facility] Last Admin: 02/08/24 21:04 Dose: Not Given Vitamin D (Cholecalciferol (Vitamin D3) 25 Mcg Tablet) 50 mcg PO DAILY [facility] Last Admin: 02/08/24 09:15 Dose: Not Given Allergies Allergies Allergy/AdvReac Type Severity Reaction Status Date / Time lithium Allergy Unknown Verified 01/13/24 18:08 Assessment & Plan Assessment & Plan (1) Schizoaffective disorder, bipolar type: Status: Acute Code(s): F25.0 - Schizoaffective disorder, bipolar type (2) Hypertension: Status: Acute Code(s): I10 - Essential (primary) hypertension (3) Diabetes mellitus: Status: Acute Code(s): E11.9 - Type 2 diabetes mellitus without complications Plan 68 yo from a intermediate with chronic psychotic disorder, refusing medication , elevated bp and disorganized and agitated behavior requiring psychiatric hospitalization and treatment not competent to sign cv. 01/14 continue to follow - gave lambs warning today- and he says the live source operator will be a she- still refusing medications and quite psychotic takes alot of redirection to settle him poor adls- 01/15- Refuses meds, refuses hospitalist consult-second day File for Section Seven consideration on 01/17. Provide care as he will allow. 01/16: Depakote 250 mg bid Haldol, Lorazepam, Benadryl prn Section 7 to be filed 01/17 Message left for guardian. 01/17: Section Seven filed. . Court scheduled 01/26/24 Pt continues to refuse medicaitons. He is in need of full assist with ADL's and is incontinent. Pt transferred to [facility] this afternoon. 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 Every attempt being made to get a copy of the patient's Servin order unclear why this has been so problematic. Encourage food and fluids 01/19 continue same treatment 01/21/24 Patient labile agitated intrusive close labs ordered in order to per to protect the community patient wandering into patient's rooms intrusive impulsive laying on another person's bed. Often hostile agitated posturing at times we are still pending copy of reported Servin order encourage p.o. compliance 01/22/2024 Patient did require physical hold escort him out of a room that he jumped in other patient's room and on their bed while there were in it. There was no physical harm and the patient did leave the room his markedly impulsive with poor judgment remains on close observation has intermittently taken Haldol liquid pending civil commitment treatment plan there is a question of Servin order 01/22 The patient had been more agitated. We review his Servin order and we are increasing the Abilify up to 15 mg p.o. daily and adding Haldol p.r.n. since it is in his role years order. We needed to give him some p.r.n. at 14:00. 01/23 The patient is grossly psychotic disrobing and sexually disinhibited we are starting Haldol 2 mg p.o. t.i.d. to target psychosis as per court order treatment over objection order. 01/24 The patient remains very agitated and angry disruptive so we are increasing the Haldol from 2 mg to 5 mg p.o. t.i.d. with a backup IM if the patient refused as per court order. 01/25 we have increased the Haldol but still he is very psychotic and restless. Today he refused his blood work. He needed to be physically held twice. 01/26 the patient remains agitated at times but his last IM backup was yesterday. We are going to increase Abilify up to 20 mg daily to target mood lability and psychosis. 01/29/2024: Increase frequency of prn doses from tid to prn q 6mrs. Poor insight and unable to care for self 02/08 pt has not take any of mood stabilizer. continues to have poor sleep, intrusive and combative requiring IM medications, increase haldol 10mg po TID, back up IM. Will add ativan 1mg po TID, also back up IM. Labs show elevated CK 2300, BUN 20, Cr 1.80, unclear baseline Cr as he does have CKD. Discussed with hospitalist Dr. Gama, to give IV fluids and monitor labs tomorrow. LFTs also elevated suspect this is secondary to elevation in CK and should trend down as CK goes down. Reason for continued inpatient stay Substantial Risk for: inability to function Time Spent With Patient Time: Total time managing care of this patient today ____ minutes.
--- NOTE | 2024-02-09 09:40 | HO.PSYEVENT ---
Event Note Date of Service: 02/09/24 Time Spent With Patient Time: Total time managing care of this patient today ____ minutes.
[2024-02-09] MEDS: Haloperidol Lactate 5 MG/ML VIAL 10 MG IM ×2 (09:47→19:48)
[2024-02-09] MEDS: LORazepam 2 MG/ML VIAL IM ×2 (09:47→10:40)
[2024-02-09 09:52] VITALS: BP 126/64
[2024-02-09] MEDS: OLANZapine 10 MG VIAL IM (10:40)
[2024-02-09 10:52] LABS: MANUAL DIFF FLAG NO
[2024-02-09 11:07] LABS: Basophils Percent Auto 0.5 % (0-2); Eosinophils Absolute Auto 0.1 X10*3/uL (0.0-0.4); Eosinophils Percent Auto 1.7 % (0-4); Hemoglobin 11.7 g/dl (14.0-18.0); Imm Gran Abs Auto 0.04 X10*3/uL (0.00-0.03); Lymphocytes Absolute Auto 1.7 X10*3/uL (1.2-4.9); Mean Corpuscular HGB Conc 33.4 g/dl (31.0-36.0); Mean Corpuscular Hemoglobin 28.8 pg (27.0-33.0); Mean Corpuscular Volume 86.2 fL (80.0-98.0); Mean Platelet Volume 10.1 fL (9.4-12.4); Monocytes Absolute Auto 0.8 X10*3/uL (0.1-1.2); Monocytes Percent Auto 19.8 % (2-11); Neutrophils Absolute Auto 1.5 x10*3/uL (2.0-8.3); Platelet Count 196 X10*3/uL (160-400); Red Blood Count 4.06 X10*6/uL (4.60-5.80); Red Cell Distribution Width 15.8 % (11.0-16.0); White Blood Count 4.1 X10*3/uL (4.8-10.8)
[2024-02-09 11:08] LABS: Alanine Aminotransferase 51 U/L (0-40); Alkaline Phosphatase 110 U/L (39-117); Anion Gap 11 (12-20); Aspartate Amino Transferase 93 U/L (5-37); Bilirubin Total 0.2 mg/dL (0.0-1.0); Blood Urea Nitrogen 20 mg/dL (9-16); Calcium 9.2 mg/dL (8.4-10.2); Carbon Dioxide 24 mmol/L (22-29); Chloride 110 mmol/L (96-108); Creatinine Clr Calc Pharmacy 39.7; Estimated Glomerular Filt Rate 37; Glucose Random 143 mg/dL (60-115); Potassium 4.9 mmol/L (3.3-5.1); Sodium 140 mmol/L (135-145); Total Protein 6.9 g/dL (6.5-8.0)
[2024-02-09 11:28] LABS: TSH reflex Free T4 3.91 uIU/mL (0.32-4.0)
[2024-02-09] MEDS: 0.9 % Sodium Chloride 1,000 ML 1000 ML IV (12:00)
--- NOTE | 2024-02-09 12:31 | HO.PSYEVENT ---
Documented by User: Rebecca Abraham NP 02/09/24 12:33 Event Note Date of Service: 02/09/24 Psych Restraint Event Note: Pt intrusive, pushing RN and trying to get into nurses station. This technical publications writer witnessed event. He was given his scheduled Haldol 10mg IM per isabela's as he refuse oral medications. He was held for about one minute. Hold happened at 9:47-9:48am Time Spent With Patient Time: Total time managing care of this patient today ____ minutes. Documented by User: Shay Long MD 03/06/24 13:01 Event Note Date of Service: 03/06/24
--- NOTE | 2024-02-09 12:33 | HO.BHRESEX_ITS ---
Behavioral Restraint Exam Behavioral Health Restraint Exam Type of Restraint: Physical Hold Reason for Restraint: Substantial Risk (also per Mitchell's order to administer antipsychotic against will) Medical Concerns for Restraint: No medical concerns, pt w/o acute inj / no noted resp/VS abnormalities If exam took place greater than one hour after restraint please explain:: 10:00am, restraint happened from 9:47-9:48am Behavioral Assessment / Plan: No further behavioral concerns, continue current plan. Comment: VS stable, no signs of respiratory distress nor physical distress. No injuries r eported nor noted.
[2024-02-09 12:57] LABS: Ammonia 34 umol/L (13-55)
--- NOTE | 2024-02-09 13:33 | PC.NURSE ---
Pt uncooperative, refused po meds at am. Has Servin order. Education and encouragement about meds provided. Quiet time and space provided. Pt fighting, pushing staff against the door. Provider notified, new orders. Ativan 2mg IM to right deltoid and Haldol 10mg IM to left deltoid per Gareth; physical hold 9:47-9:48. Legal guardian Jessica Zhao notified by phone. Pt appears to calmed down after med administration. Will continue to monitor.
--- NOTE | 2024-02-09 17:57 | PC.NURSE ---
Pt intrusive with staff, pushing nurses and trying to get into nurses station, pt making sexually inappropriate comments and difficult to be redirected. He received IM Zyprexa 10mg, Benadryl 50mg and Lorazepam 2mg. Pt sat down on chair in his room and was given the injections pt accepted the medications. IV started and patient was given a Normal Saline Bolus for Rhabdmyolysis. Pt resting comfortable in room placed on 1:1 for safety
--- NOTE | 2024-02-09 19:26 | PC.NURSE ---
Pt. received total bolus of `
--- NOTE | 2024-02-09 19:26 | PC.NURSE ---
Pt. received total of 1,000 cc NS bolus. IV ran from 1200 to 1300. All other IV fluid orders were duplicate/incorrect.
--- NOTE | 2024-02-09 19:55 | PC.NURSE ---
Patient just pulled out his IV access, set is whole and intact, pressure applied on the site, covered with dressing, secured with tape, environmental engineering professor provider notified/no new order at this time. patient refused his HS medication/ court ordered IM medication administered as ordered, refused VSS, 1:1 for safety observation, will continue to monitor
[2024-02-09] MEDS: LORazepam 1 MG TABLET 2 MG PO (22:53)
[2024-02-09] MEDS: Haloperidol Lactate Oral Conc 10 MG/5 ML ORAL.CONC 5 MG PO (22:53)
[2024-02-10] VITALS (13 sets, daily range): BP systolic 141; BP diastolic 90; PULSE 90; RESP 16–18; TEMP 37.2; O2SAT 96
[2024-02-10] MEDS: Haloperidol Lactate 5 MG/ML VIAL 10 MG IM ×3 (07:53→21:54)
[2024-02-10] MEDS: LORazepam 2 MG/ML VIAL 1 MG IM ×3 (07:53→22:25)
[2024-02-10] MEDS: chlorproMAZINE HCl 25 MG/ML AMPUL 100 MG IM (10:04)
[2024-02-10] MEDS: LORazepam 2 MG/ML VIAL IM ×2 (10:05→18:15)
--- NOTE | 2024-02-10 10:13 | PC.NURSE ---
Spoke with Jessica Zhao, pt's guardian, advised her that the patient has recevied numerous restraints today. Jessica stated I know he is having a hard time . Let the Doctor know that I am willing to try any medications not on the Mitchell's order . We can worry about the Mitchell's later .
--- NOTE | 2024-02-10 10:20 | PC.NURSE ---
Refused vital signs; Dr. Watson notified.
[2024-02-10 10:26] LABS: Alanine Aminotransferase 44 U/L (0-40); Albumin Level 3.8 g/dL (3.5-5.0); Alkaline Phosphatase 114 U/L (39-117); Aspartate Amino Transferase 79 U/L (5-37); Bilirubin Total 0.2 mg/dL (0.0-1.0); Blood Urea Nitrogen 16 mg/dL (9-16); Calcium 8.9 mg/dL (8.4-10.2); Creatinine Clr Calc Pharmacy 38.5; Estimated Glomerular Filt Rate 35; Glucose Random 207 mg/dL (60-115); Total Protein 6.7 g/dL (6.5-8.0)
--- NOTE | 2024-02-10 10:29 | PC.NURSE ---
Notified Dr. Watson of CK [id number] from [employer]).
[2024-02-10 10:35] LABS: Anion Gap 16 (12-20); Carbon Dioxide 19 mmol/L (22-29); Chloride 113 mmol/L (96-108); Potassium 4.8 mmol/L (3.3-5.1); Sodium 143 mmol/L (135-145)
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
--- NOTE | 2024-02-10 12:46 | HO.PSYCHPN ---
Subjective Subjective Date of Service: 02/10/24 Reason For Visit: Schizoaffective disorder Subjective Notes: Conditional Voluntary Interim History: The nursing staff reported the patient had been agitated, restless, difficult to redirect. He needed to have IM twice and 8 a.m. and 09:00 o'clock. Blood work came back with a mild lower of CPK around the 2 thousands and creatinine still on 1.8-1.9. So far the patient had been drinking and eating normally. Mental Status Exam Mental Status Exam Patient Appearance: Disheveled and Unkempt Patient Orientation: Person Level of Consciousness: Disoriented and Restless Patient Behavior: Guarded and Suspicious Mood Description: Withdrawn Affect Description: Labile Patient Cognition Impaired: Yes Ability to Follow Directions: Fair Speech Pattern: Impoverished Hallucinations: Auditory Delusions: Paranoid Ideation and Ideas of Reference Thought Process: Distracted and Slowed Thinking Thought Content: positive for [place] and positive for Poverty of Content Judgement: Poor Diagnostics Vital Signs (24Hr): Vital Signs - 24 hr 02/10/24 08:00 Respiratory Rate 18 BMI result Body Mass Index 23.7 Labs 02/09/24 10:49 02/10/24 08:55 Labs: Laboratory Results - last 48 hr 02/09/24 02/09/24 02/09/24 10:48 10:49 12:47 WBC 4.1 L RBC 4.06 L Hgb 11.7 L Hct 35.0 L MCV 86.2 MCH 28.8 MCHC 33.4 RDW 15.8 Plt Count 196 MPV 10.1 Immature Gran % (Auto) 1.0 H Neut % (Auto) 36.0 L Lymph % (Auto) 41.0 H [place] % (Auto) 19.8 H Eos % (Auto) 1.7 Baso % (Auto) 0.5 Lymph # (Auto) 1.7 [place] # (Auto) 0.8 Eos # (Auto) 0.1 Baso # (Auto) 0.0 Abs Immat Gran (auto) 0.04 H Absolute Neuts (auto) 1.5 L Absolute Nucleated RBC 0.000 Nucleated RBC % (auto) 0.0 Sodium 140 Potassium 4.9 Chloride 110 H Carbon Dioxide 24 Anion Gap 11 L BUN 20 H Creatinine 1.84 H Estim Creat Clear Calc 39.7 Estimated GFR 37 Random Glucose 143 H Calcium 9.2 Total Bilirubin 0.2 AST 93 H ALT 51 H Alkaline Phosphatase 110 Ammonia 34 Total Creatine Kinase 2329 H Total Protein 6.9 Albumin 4.0 TSH 3.91 02/10/24 08:55 WBC RBC Hgb Hct MCV MCH MCHC RDW Plt Count MPV Immature Gran % (Auto) Neut % (Auto) Lymph % (Auto) [place] % (Auto) Eos % (Auto) Baso % (Auto) Lymph # (Auto) [place] # (Auto) Eos # (Auto) Baso # (Auto) Abs Immat Gran (auto) Absolute Neuts (auto) Absolute Nucleated RBC Nucleated RBC % (auto) Sodium 143 Potassium 4.8 Chloride 113 H Carbon Dioxide 19 L Anion Gap 16 BUN 16 Creatinine 1.90 H Estim Creat Clear Calc 38.5 Estimated GFR 35 Random Glucose 207 H Calcium 8.9 Total Bilirubin 0.2 AST 79 H ALT 44 H Alkaline Phosphatase 114 Ammonia Total Creatine Kinase 2141 H Total Protein 6.7 Albumin 3.8 TSH Medications Medications Current Medications Acetaminophen (Acetaminophen 325 Mg Tablet) 650 mg PO Q6H PRN PRN Reason: Headache/Pain Mild Scale (1-3) Last Admin: 01/17/24 23:53 Dose: 325 mg Al Hydroxide/Mg Hydroxide (Magnesium Hydrox/Alum Hydrox 30 Ml Oral.Susp) 30 ml PO Q6H PRN PRN Reason: Heartburn/Nausea Amlodipine Besylate (Amlodipine Besylate 10 Mg Tablet) 10 mg PO DAILY [facility]; Protocol Last Admin: 02/10/24 09:17 Dose: Not Given Aripiprazole (Aripiprazole 15 Mg Tablet) 15 mg PO DAILY [facility] Last Admin: 02/10/24 09:17 Dose: Not Given Aspirin (Aspirin Enteric Coated 81 Mg Tablet.) 81 mg PO DAILY [facility] Last Admin: 02/10/24 09:17 Dose: Not Given Atorvastatin Calcium (Atorvastatin Calcium 40 Mg Tablet) 40 mg PO DAILY [facility] Last Admin: 02/10/24 09:17 Dose: Not Given Carbamazepine (Carbamazepine 200 Mg Tablet) 200 mg PO BID [facility] Last Admin: 02/10/24 09:17 Dose: Not Given Diphenhydramine HCl (Diphenhydramine Hcl 25 Mg Capsule) 50 mg PO Q8H PRN PRN Reason: agitation Last Admin: 02/07/24 21:47 Dose: 50 mg Ferrous Sulfate (Ferrous Sulfate 324 Mg Tablet.) 324 mg PO BIDWM [facility] Last Admin: 02/10/24 09:17 Dose: Not Given Haloperidol Lactate (Haloperidol Lactate 5 Mg/Ml Vial) 10 mg IM BID PRN PRN Reason: Refusal of Court PO Haldol Last Admin: 02/10/24 07:53 Dose: 10 mg Haloperidol Lactate (Haloperidol Lactate Oral Conc 10 Mg/5 Ml Oral.Conc) 5 mg PO Q6H PRN PRN Reason: Psychosis or severe agitation Last Admin: 02/09/24 22:53 Dose: 5 mg Haloperidol Lactate (Haloperidol Lactate Oral Conc 10 Mg/5 Ml Oral.Conc) 10 mg PO TID [facility] Last Admin: 02/10/24 09:17 Dose: Not Given Hydroxyzine HCl (Hydroxyzine Hcl 25 Mg Tablet) 25 mg PO Q6H PRN PRN Reason: Anxiety Last Admin: 02/07/24 21:47 Dose: 25 mg Lorazepam (Lorazepam 1 Mg Tablet) 2 mg PO Q6H PRN PRN Reason: Restlessness Last Admin: 02/09/24 22:53 Dose: 2 mg Lorazepam (Lorazepam 1 Mg Tablet) 1 mg PO TID [facility] Last Admin: 02/10/24 09:17 Dose: Not Given Lorazepam (Lorazepam 2 Mg/Ml Vial) 1 mg IM TID PRN PRN Reason: if refuses oral Last Admin: 02/10/24 07:53 Dose: 1 mg Magnesium Hydroxide (Milk Of Magnesia 30 Ml Oral.Susp) 30 ml PO DAILY PRN PRN Reason: Constipation Nicotine Polacrilex (Nicotine Polacrilex 2 Mg Gum) 2 mg BUCCAL Q2H PRN PRN Reason: Nicotine Cravings Trazodone HCl (Trazodone Hcl 50 Mg Tablet) 50 mg PO BEDTIME MRX1 PRN PRN Reason: Insomnia Last Admin: 02/07/24 21:47 Dose: 50 mg Valproic Acid (Valproic Acid Liquid 250 Mg/5 Ml Solution) 500 mg PO BID [facility] Last Admin: 02/10/24 09:17 Dose: Not Given Vitamin D (Cholecalciferol (Vitamin D3) 25 Mcg Tablet) 50 mcg PO DAILY [facility] Last Admin: 02/10/24 09:17 Dose: Not Given Allergies Allergies Allergy/AdvReac Type Severity Reaction Status Date / Time lithium Allergy Unknown Verified 01/13/24 18:08 Assessment & Plan Assessment & Plan (1) Schizoaffective disorder, bipolar type: Status: Acute Code(s): F25.0 - Schizoaffective disorder, bipolar type (2) Hypertension: Status: Acute Code(s): I10 - Essential (primary) hypertension (3) Diabetes mellitus: Status: Acute Code(s): E11.9 - Type 2 diabetes mellitus without complications Plan 68 yo from a residential with chronic psychotic disorder, refusing medication , elevated bp and disorganized and agitated behavior requiring psychiatric hospitalization and treatment not competent to sign cv. 01/14 continue to follow - gave lambs warning today- and he says the candy vendor will be a she- still refusing medications and quite psychotic takes alot of redirection to settle him poor adls- 01/15- Refuses meds, refuses hospitalist consult-second day File for Section Seven consideration on 01/17. Provide care as he will allow. 01/16: Depakote 250 mg bid Haldol, Lorazepam, Benadryl prn Section 7 to be filed 01/17 Message left for guardian. 01/17: Section Seven filed. . Court scheduled 01/26/24 Pt continues to refuse medicaitons. He is in need of full assist with ADL's and is incontinent. Pt transferred to [facility] this afternoon. 01/19/2024 Patient pending civil commitment loud agitated would not engage in any conversation with this sql report writer non informational healing agitated verbally aggressive. Every attempt being made to get a copy of the patient's Servin order unclear why this has been so problematic. Encourage food and fluids 01/19 continue same treatment 01/21/24 Patient labile agitated intrusive close labs ordered in order to per to protect the community patient wandering into patient's rooms intrusive impulsive laying on another person's bed. Often hostile agitated posturing at times we are still pending copy of reported Servin order encourage p.o. compliance 01/22/2024 Patient did require physical hold escort him out of a room that he jumped in other patient's room and on their bed while there were in it. There was no physical harm and the patient did leave the room his markedly impulsive with poor judgment remains on close observation has intermittently taken Haldol liquid pending civil commitment treatment plan there is a question of Servin order 01/22 The patient had been more agitated. We review his Servin order and we are increasing the Abilify up to 15 mg p.o. daily and adding Haldol p.r.n. since it is in his role years order. We needed to give him some p.r.n. at 14:00. 01/23 The patient is grossly psychotic disrobing and sexually disinhibited we are starting Haldol 2 mg p.o. t.i.d. to target psychosis as per court order treatment over objection order. 01/24 The patient remains very agitated and angry disruptive so we are increasing the Haldol from 2 mg to 5 mg p.o. t.i.d. with a backup IM if the patient refused as per court order. 01/25 we have increased the Haldol but still he is very psychotic and restless. Today he refused his blood work. He needed to be physically held twice. 01/26 the patient remains agitated at times but his last IM backup was yesterday. We are going to increase Abilify up to 20 mg daily to target mood lability and psychosis. 01/29/2024: Increase frequency of prn doses from tid to prn q 6mrs. Poor insight and unable to care for self 02/08 pt has not take any of mood stabilizer. continues to have poor sleep, intrusive and combative requiring IM medications, increase haldol 10mg po TID, back up IM. Will add ativan 1mg po TID, also back up IM. Labs show elevated CK 2300, BUN 20, Cr 1.80, unclear baseline Cr as he does have CKD. Discussed with hospitalist Dr. Gama, to give IV fluids and monitor labs tomorrow. LFTs also elevated suspect this is secondary to elevation in CK and should trend down as CK goes down. 02/09 still agitated, creatinine and CPK slightly high as yesterday, he removed his IV line there is no big difference with IV hydration. We are changing his community role years to have more options since it is not working Abilify and Haldol Reason for continued inpatient stay Substantial Risk for: inability to function, rapid decompensation and med/psych decompensation Time Spent With Patient Time: Total time managing care of this patient today __20__ minutes.
--- NOTE | 2024-02-10 13:38 | PC.NURSE ---
Restraint note: Bret would not accept oral or IM Haldol per KRISTIN order. He was verbally aggressive and yelling/swearing at staff and unable to be redirected verbally by staff using several interventions and verbal de-escalation A physical hold was ordered by Dr. Watson so KRISTIN medication Haldol IM could be administered to patient safely. Bret tolerated the hold well which began at 0753 and ended at 0753. He denied any pain and no injury noted. Respirations were free and easy and he declined to have all other vital signs taken.
--- NOTE | 2024-02-10 14:58 | PC.NURSE ---
Restraint Note: Bret had blood work ordered for this morning to monitor kidney and liver function as he is on court ordered medications. He has been getting the medications intramuscularly and blood work required. Bret was verbally aggressive in the milieu and would not accompany staff to a safe area for blood draws. Physical hold ordered and initiated at 0851 to remove Bret from the milieu so blood draw could be done safely away from the milieu. Physical hold initiated at 0851 and ended at 0851. Bret allowed blood draw to be completed without incident. He was given fluids post hold and was not in any apparent physical or psychological distress.
[2024-02-10] MEDS: OLANZapine 10 MG VIAL IM (18:15)
[2024-02-10] MEDS: diphenhydrAMINE HCL 50 MG/ML VIAL IM (18:15)
--- NOTE | 2024-02-10 18:18 | HO.EVEPSY_ITS ---
Documented by User: Rebecca Abraham NP 02/10/24 18:22 Event Note Date of Service: 02/10/24 Psych Restraint Event Note: Received tigertext message from TARAN Gordon pt increasingly more agitated, intrusive with staff, attempting to swing at staff. Not able to be redirected. He required Olanzapine 10mg IM, ativan 2mg IM, benadryl 50mg IM. Ordered chemical and physical hold restraint from 18:15-18:16. This residential mortgage underwriter is remote, hospitalist in house to complete face to face evaluation and documentation. Time Spent With Patient Time: Total time managing care of this patient today ____ minutes. Documented by User: Shay Long MD 02/28/24 10:38 Event Note Date of Service: 02/28/24
--- NOTE | 2024-02-10 18:43 | PC.NURSE ---
Restraint Note: Bret attempted to repeatedly place himself on the floor and when staff redirected him verbally he became agitated and physically aggressive by swinging at staff and throwing coffee. Rebecca Abraham NP notified. For safety a physical hold was initiated at 1815 and he was administered 50mg IM diphehydramine, 10mg IM olanzapine, and 2mg IM lorazepam. Bret tolerated the restraint well and no apparent physical or psychological injury observed. He is currently being monitored on a 1:1 by staff. Will continue to monitor for safety and changes in behavior.
--- NOTE | 2024-02-10 22:58 | PC.NURSE ---
pt has refused all po medications and stated that he wants a shot. despite administration of court ordered isabela IM haldol 10 mg and ativan 1 mg IM pt has had increasing episodes of agitation in which he removes all is clothing and exists bed. he is screaming at staff and his speech is nonsensical. at one point, he is accusing me of stealing all his money. he urinating on the floor he is not redirected easily. a one to one pt observer is in place. pt seems triggered by urinary incontinence. provider yanely koch notifed of 1. behavioral issues agitation 2. pt agitated and pushing at staff 3. po intake encouraged pt ate 2 bannas and drank 480 ml of gingerale. 4. medications which have been administered IM reviewed.
--- NOTE | 2024-02-10 22:59 | HO.EVEPSY_ITS ---
Documented by User: Rebecca Abraham NP 02/10/24 23:02 Event Note Date of Service: 02/10/24 Psych Restraint Event Note: This screenplay writer (addiction counselor remotely) received tigertext from TARAN Virgen at around 11:00pm, reporting pt is pushing staff, intrusive, unable to be redirectable and refusing oral medications. Ordered Geodone 10mg IM, benadryl 50mg IM. chemical and physical hold. face to face assessment and documentation to be completed by in-house hospitalist. Time Spent With Patient Time: Total time managing care of this patient today ____ minutes. Documented by User: Shay Long MD 02/12/24 21:01 Event Note Date of Service: 02/12/24
--- NOTE | 2024-02-11 07:07 | PC.NURSE ---
0200 pt has been mostly somnolent in the common area. he has been seated in a chair. laci held d/t somnolent state. pt returned to bed with pt observer. po intake has been excellent +980 ml. he has been incontinent of urine x2 which have been large volumes. health care consultant provider yanely notified that laci being held.
[2024-02-11] MEDS: Haloperidol Lactate 5 MG/ML VIAL 10 MG IM (09:03)
[2024-02-11] MEDS: LORazepam 1 MG TABLET PO (10:20)
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
[2024-02-11] MEDS: Divalproex Sodium Sprinkles 125 MG CAP.DR.SPR 1000 MG PO ×2 (12:12→17:03)
--- NOTE | 2024-02-11 13:52 | HO.PSYEVENT ---
Documented by User: Rebecca Abraham NP 02/11/24 14:06 Event Note Date of Service: 02/11/24 Psych Restraint Event Note: Pt disrobbing, pushing staff, not able to be redirected. Thorazine 50mg IM ordered. No physical hold needed for administration of medication. Time Spent With Patient Time: Total time managing care of this patient today ____ minutes. Documented by User: Shay Long MD 02/12/24 21:00 Event Note Date of Service: 02/12/24
--- NOTE | 2024-02-11 14:00 | HO.BHRESTREX ---
Behavioral Restraint Exam Behavioral Health Restraint Exam Type of Restraint: Physical Hold and Medication Reason for Restraint: Substantial Risk and Occurrence of self-harming or suicidal behavior as evidenced by: (disrobbing, pushing staff, not able to be redirected) Medical Concerns for Restraint: No medical concerns, pt w/o acute inj / no noted resp/VS abnormalities Comment: No SOB, pt did not allow VS after chemical restraint. no signs of respiratory distress. Will attempt as pt calmer
[2024-02-11] MEDS: chlorproMAZINE HCl 25 MG/ML AMPUL 50 MG IM (14:01)
[2024-02-11] MEDS: cloNIDine 0.1 MG PATCH.TDWK TRANSDERMA (14:18)
--- NOTE | 2024-02-11 15:38 | PC.NURSE ---
The patient was disrobing in the [place]. The staff tried to get him back into his room. He was hitting, kicking and throwing things at staff. A code assist was called. Rebecca Abraham NP was on the unit and went to see the patient . He was agitated, resistive, yelling and refusing to get dressed. She ordered Thorazine 50mg IM x1. It was given without difficulty at 1401. There was a small amount of bleeding at the injection site , which stopped after a small amount of gauze and pressure were applied. The patient initially refused vitals. He is on a 2:1 for behaviors, aggression and intrusiveness. The patient was maintaining control until he tried to flip a table around 1440. He then went back to his room with his 2:1. Last full vitals at 1416 [id number] with O2 Sat 95% on room air. Clinical nursing sign hanger supervisor on unit for restraint. The patient's legal guardian Jessica Zhao was called and updated.
[2024-02-11 20:00] VITALS: BP 138/83; PULSE 93; RESP 16; TEMP 36.9; O2SAT 100
[2024-02-11] MEDS: Valproic Acid Liquid 250 MG/5 ML SOLUTION 500 MG PO (20:36)
[2024-02-11] MEDS: Haloperidol Lactate Oral Conc 10 MG/5 ML ORAL.CONC PO (20:36)
[2024-02-11] MEDS: LORazepam 1 MG TABLET 2 MG PO (20:38)
[2024-02-12] MEDS: Haloperidol Lactate Oral Conc 10 MG/5 ML ORAL.CONC 5 MG PO ×2 (00:38→17:33)
--- NOTE | 2024-02-12 01:19 | HO.PSYEVENT ---
Event Note Date of Service: 02/12/24 Psych Restraint Event Note: He has been very difficult to manage all day. Shouting,standing on table tops etc.Has been a safety issue for him and others. Multiples IMs have been ineffective and continues to require hands on holding for safety. Thorazine 50 mg IM given also inspite of risks. Time Spent With Patient Time: Total time managing care of this patient today ____ minutes.
[2024-02-12 01:20] VITALS: BP 144/75; PULSE 101; RESP 18; TEMP 36.6; O2SAT 100
[2024-02-12] MEDS: chlorproMAZINE HCl 25 MG/ML AMPUL IM (01:29)
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
--- NOTE | 2024-02-12 02:08 | HO.BHRESTREX ---
Behavioral Restraint Exam Behavioral Health Restraint Exam Type of Restraint: Medication Reason for Restraint: Substantial Risk, Occurrence of self-harming or suicidal behavior as evidenced by: and Substantial Risk of Harm to Others Medical Concerns for Restraint: No medical concerns, pt w/o acute inj / no noted resp/VS abnormalities Behavioral Assessment / Plan: No further behavioral concerns, continue current plan.
--- NOTE | 2024-02-12 05:09 | PC.NURSE ---
pt has had 2 to [address] over night. he has intermittently slept. he has been awake on one occasion after experiencing urinary incontinence. he is noted to be softly singing and appears restful with eyes closed. resp effort is regular unlabored. pt has been incontinentx3 of large volumes of urine. he had a po intake of +960 of po fluids over night.
[2024-02-12] MEDS: ARIPiprazole 15 MG TABLET PO (08:04)
[2024-02-12] MEDS: carBAMazepine 200 MG TABLET PO (08:04)
[2024-02-12] MEDS: Haloperidol Lactate Oral Conc 10 MG/5 ML ORAL.CONC PO (08:05)
[2024-02-12] MEDS: Valproic Acid Liquid 250 MG/5 ML SOLUTION 500 MG PO (08:05)
[2024-02-12 11:25] VITALS: BP 144/63; PULSE 116; RESP 22; TEMP 37.2; O2SAT 100
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
[2024-02-12] MEDS: LORazepam 1 MG TABLET 2 MG PO (17:33)
[2024-02-12] MEDS: Haloperidol Lactate 5 MG/ML VIAL 10 MG IM (21:21)
[2024-02-13] MEDS: chlorproMAZINE HCl 25 MG/ML AMPUL 50 MG IM (04:54)
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
[2024-02-13] MEDS: Haloperidol Lactate Oral Conc 10 MG/5 ML ORAL.CONC PO ×2 (08:26→21:46)
[2024-02-13] MEDS: Valproic Acid Liquid 250 MG/5 ML SOLUTION 750 MG PO ×2 (08:26→21:46)
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
[2024-02-13] MEDS: traZODone HCL 50 MG TABLET PO (21:46)
[2024-02-13] MEDS: carBAMazepine 200 MG TABLET PO (21:46)
[2024-02-14] MEDS: LORazepam 1 MG TABLET 2 MG PO ×2 (01:29→20:19)
[2024-02-14] MEDS: Haloperidol Lactate Oral Conc 10 MG/5 ML ORAL.CONC 5 MG PO ×2 (01:30→13:47)
[2024-02-14] MEDS: traZODone HCL 50 MG TABLET PO (01:30)
[2024-02-14 07:37] VITALS: BP 139/89; PULSE 100; RESP 20; TEMP 37; O2SAT 96
[2024-02-14] MEDS: carBAMazepine 200 MG TABLET PO ×2 (08:10→22:46)
[2024-02-14] MEDS: Haloperidol Lactate Oral Conc 10 MG/5 ML ORAL.CONC PO ×2 (08:10→20:19)
[2024-02-14] MEDS: amLODIPine Besylate 10 MG TABLET PO (08:10)
[2024-02-14] MEDS: Valproic Acid Liquid 250 MG/5 ML SOLUTION 750 MG PO ×2 (08:53→22:48)
[2024-02-14 09:00] LABS: MANUAL DIFF FLAG NO
[2024-02-14 09:02] LABS: Basophils Percent Auto 0.2 % (0-2); Eosinophils Absolute Auto 0.1 X10*3/uL (0.0-0.4); Eosinophils Percent Auto 0.9 % (0-4); Hematocrit 32.5 % (42.0-52.0); Hemoglobin 10.7 g/dl (14.0-18.0); Imm Gran Abs Auto 0.16 X10*3/uL (0.00-0.03); Imm Gran Pct Auto 1.5 % (0.0-0.4); Lymphocytes Absolute Auto 1.1 X10*3/uL (1.2-4.9); Lymphocytes Percent Auto 10.4 % (20-40); Mean Corpuscular HGB Conc 32.9 g/dl (31.0-36.0); Mean Corpuscular Hemoglobin 28.9 pg (27.0-33.0); Mean Corpuscular Volume 87.8 fL (80.0-98.0); Mean Platelet Volume 9.4 fL (9.4-12.4); Monocytes Absolute Auto 0.8 X10*3/uL (0.1-1.2); Monocytes Percent Auto 7.7 % (2-11); Neutrophils Absolute Auto 8.4 x10*3/uL (2.0-8.3); Neutrophils Percent Auto 79.3 % (45-73); Platelet Count 162 X10*3/uL (160-400); Red Cell Distribution Width 15.9 % (11.0-16.0); White Blood Count 10.6 X10*3/uL (4.8-10.8)
[2024-02-14] MEDS: LORazepam 2 MG/ML VIAL IM (10:20)
[2024-02-14] MEDS: chlorproMAZINE HCl 25 MG/ML AMPUL 100 MG IM (10:20)
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
[2024-02-15] MEDS: Haloperidol Lactate Oral Conc 10 MG/5 ML ORAL.CONC 5 MG PO ×2 (04:09→15:18)
--- NOTE | 2024-02-15 09:00 | HO.PSYCHPN ---
Subjective Subjective Date of Service: 02/15/24 Reason For Visit: Schizoaffective disorder Interim History: Pt seen and reviewed with the team. He remains on one to one. Team report today he accepted medications, did place himself on the floor, requires consistent redirection and was singing at one point today. Team note that Ativan/Chlorpromazine given 02/13 was quite helpful in mood improvement today. Medication Compliance: Yes Side effects from medications: No Attending Groups: No Review of Systems Acute medical concerns: No Mental Status Exam Mental Status Exam Patient Appearance: Unkempt Patient Orientation: Person Level of Consciousness: Disoriented and Restless Patient Behavior: Guarded and Aggressive Mood Description: Withdrawn Affect Description: Labile Patient Cognition Impaired: Yes Ability to Follow Directions: Good Speech Pattern: Clear Hallucinations: None Delusions: Paranoid Ideation and Ideas of Reference Thought Process: Racing, Illogical and Distracted Thought Content: positive for [place] and positive for Poverty of Content Judgement: Poor Diagnostics Vital Signs (24Hr): BMI result Body Mass Index 23.7 Labs 02/14/24 08:56 02/10/24 08:55 Labs: Laboratory Results - last 48 hr 02/14/24 08:56 WBC 10.6 RBC 3.70 L Hgb 10.7 L Hct 32.5 L MCV 87.8 MCH 28.9 MCHC 32.9 RDW 15.9 Plt Count 162 MPV 9.4 Immature Gran % (Auto) 1.5 H Neut % (Auto) 79.3 H Lymph % (Auto) 10.4 L [place] % (Auto) 7.7 Eos % (Auto) 0.9 Baso % (Auto) 0.2 Lymph # (Auto) 1.1 L [place] # (Auto) 0.8 Eos # (Auto) 0.1 Baso # (Auto) 0.0 Abs Immat Gran (auto) 0.16 H Absolute Neuts (auto) 8.4 H Absolute Nucleated RBC 0.000 Nucleated RBC % (auto) 0.0 Medications Medications Current Medications Acetaminophen (Acetaminophen 325 Mg Tablet) 650 mg PO Q6H PRN PRN Reason: Headache/Pain Mild Scale (1-3) Last Admin: 01/17/24 23:53 Dose: 325 mg Al Hydroxide/Mg Hydroxide (Magnesium Hydrox/Alum Hydrox 30 Ml Oral.Susp) 30 ml PO Q6H PRN PRN Reason: Heartburn/Nausea Amlodipine Besylate (Amlodipine Besylate 10 Mg Tablet) 10 mg PO DAILY [facility]; Protocol Last Admin: 02/14/24 08:10 Dose: 10 mg Aspirin (Aspirin Enteric Coated 81 Mg Tablet.) 81 mg PO DAILY [facility] Last Admin: 02/14/24 08:16 Dose: Not Given Atorvastatin Calcium (Atorvastatin Calcium 40 Mg Tablet) 40 mg PO DAILY [facility] Last Admin: 02/14/24 08:16 Dose: Not Given Carbamazepine (Carbamazepine 200 Mg Tablet) 200 mg PO BID [facility] Last Admin: 02/14/24 22:46 Dose: 200 mg Clonidine (Clonidine 0.1 Mg Patch.Tdwk) 0.1 mg TRANSDERMA Sa@0900 [facility]; Protocol Last Admin: 02/11/24 14:18 Dose: 0.1 mg Ferrous Sulfate (Ferrous Sulfate 324 Mg Tablet.) 324 mg PO BIDWM [facility] Last Admin: 02/14/24 16:24 Dose: Not Given Haloperidol Lactate (Haloperidol Lactate 5 Mg/Ml Vial) 10 mg IM BID PRN PRN Reason: Refusal of Court PO Haldol Last Admin: 02/12/24 21:21 Dose: 10 mg Haloperidol Lactate (Haloperidol Lactate Oral Conc 10 Mg/5 Ml Oral.Conc) 5 mg PO Q6H PRN PRN Reason: Psychosis or severe agitation Last Admin: 02/15/24 04:09 Dose: 5 mg Haloperidol Lactate (Haloperidol Lactate Oral Conc 10 Mg/5 Ml Oral.Conc) 10 mg PO BID [facility] Last Admin: 02/14/24 20:19 Dose: 10 mg Magnesium Hydroxide (Milk Of Magnesia 30 Ml Oral.Susp) 30 ml PO DAILY PRN PRN Reason: Constipation Nicotine Polacrilex (Nicotine Polacrilex 2 Mg Gum) 2 mg BUCCAL Q2H PRN PRN Reason: Nicotine Cravings Trazodone HCl (Trazodone Hcl 50 Mg Tablet) 50 mg PO BEDTIME MRX1 PRN PRN Reason: Insomnia Last Admin: 02/14/24 01:30 Dose: 50 mg Valproic Acid (Valproic Acid Liquid 250 Mg/5 Ml Solution) 750 mg PO BID [facility] Last Admin: 02/14/24 22:48 Dose: 750 mg Vitamin D (Cholecalciferol (Vitamin D3) 25 Mcg Tablet) 50 mcg PO DAILY [facility] Last Admin: 02/14/24 08:16 Dose: Not Given Allergies Allergies Allergy/AdvReac Type Severity Reaction Status Date / Time lithium Allergy Unknown Verified 01/13/24 18:08 Assessment & Plan Assessment & Plan (1) Schizoaffective disorder, bipolar type: Status: Acute Code(s): F25.0 - Schizoaffective disorder, bipolar type (2) Hypertension: Status: Acute Code(s): I10 - Essential (primary) hypertension (3) Diabetes mellitus: Status: Acute Code(s): E11.9 - Type 2 diabetes mellitus without complications Plan 68 yo from a alf with chronic psychotic disorder, refusing medication , elevated bp and disorganized and agitated behavior requiring psychiatric hospitalization and treatment not competent to sign cv. 01/14 continue to follow - gave lambs warning today- and he says the non destructive evaluation manager will be a she- still refusing medications and quite psychotic takes alot of redirection to settle him poor adls- 01/15- Refuses meds, refuses hospitalist consult-second day File for Section Seven consideration on 01/17. Provide care as he will allow. 01/16: Depakote 250 mg bid Haldol, Lorazepam, Benadryl prn Section 7 to be filed 01/17 Message left for guardian. 01/17: Section Seven filed. . Court scheduled 01/26/24 Pt continues to refuse medicaitons. He is in need of full assist with ADL's and is incontinent. Pt transferred to [facility] this afternoon. 01/19/2024 Patient pending civil commitment loud agitated would not engage in any conversation with this typewriter operator automatic non informational healing agitated verbally aggressive. Every attempt being made to get a copy of the patient's Servin order unclear why this has been so problematic. Encourage food and fluids 01/19 continue same treatment 01/21/24 Patient labile agitated intrusive close labs ordered in order to per to protect the community patient wandering into patient's rooms intrusive impulsive laying on another person's bed. Often hostile agitated posturing at times we are still pending copy of reported Servin order encourage p.o. compliance 01/22/2024 Patient did require physical hold escort him out of a room that he jumped in other patient's room and on their bed while there were in it. There was no physical harm and the patient did leave the room his markedly impulsive with poor judgment remains on close observation has intermittently taken Haldol liquid pending civil commitment treatment plan there is a question of Servin order 01/22 The patient had been more agitated. We review his Servin order and we are increasing the Abilify up to 15 mg p.o. daily and adding Haldol p.r.n. since it is in his role years order. We needed to give him some p.r.n. at 14:00. 01/23 The patient is grossly psychotic disrobing and sexually disinhibited we are starting Haldol 2 mg p.o. t.i.d. to target psychosis as per court order treatment over objection order. 01/24 The patient remains very agitated and angry disruptive so we are increasing the Haldol from 2 mg to 5 mg p.o. t.i.d. with a backup IM if the patient refused as per court order. 01/25 we have increased the Haldol but still he is very psychotic and restless. Today he refused his blood work. He needed to be physically held twice. 01/26 the patient remains agitated at times but his last IM backup was yesterday. We are going to increase Abilify up to 20 mg daily to target mood lability and psychosis. 01/29/2024: Increase frequency of prn doses from tid to prn q 6mrs. Poor insight and unable to care for self 02/08 pt has not take any of mood stabilizer. continues to have poor sleep, intrusive and combative requiring IM medications, increase haldol 10mg po TID, back up IM. Will add ativan 1mg po TID, also back up IM. Labs show elevated CK 2300, BUN 20, Cr 1.80, unclear baseline Cr as he does have CKD. Discussed with hospitalist Dr. Gama, to give IV fluids and monitor labs tomorrow. LFTs also elevated suspect this is secondary to elevation in CK and should trend down as CK goes down. 02/09 still agitated, creatinine and CPK slightly high as yesterday, he removed his IV line there is no big difference with IV hydration. We are changing his community role years to have more options since it is not working Abilify and Haldol 02/10 3 chemical restraints yesterday. appears more combative, and somewhat more confused. Will decrease amount of benzo and antihistamine given to him as it seems to be backfiring. did discuss with ICU attending, Dr. Whiteside possibility of transferring there but they would like us to try IV depakote and exhaust all resources prior to considering transfer. Pt did take depakote springkle 1000mg with apple sauce with much encourage. 02/11 continue tx. 02/12 continue same treatment 01/14 continue with Abilify and other court order medications, we are Namenda and the court order. 02/14 Team report improvement today with pt having greater comfort and less agitation. Reason for continued inpatient stay Substantial Risk for: rapid decompensation Time Spent With Patient Time: Total time managing care of this patient today ____ minutes.
[2024-02-15] MEDS: Valproic Acid Liquid 250 MG/5 ML SOLUTION 750 MG PO ×2 (09:08→19:30)
[2024-02-15] MEDS: Haloperidol Lactate Oral Conc 10 MG/5 ML ORAL.CONC PO ×2 (09:09→19:28)
[2024-02-15] MEDS: carBAMazepine 200 MG TABLET PO ×2 (09:10→19:30)
[2024-02-15] MEDS: Cholecalciferol (Vitamin D3) 25 MCG TABLET 50 MCG PO (09:10)
[2024-02-15] MEDS: Aspirin Enteric Coated 81 MG TABLET.DR PO (09:10)
[2024-02-15] MEDS: Atorvastatin Calcium 40 MG TABLET PO (09:10)
[2024-02-15] MEDS: Ferrous Sulfate 324 MG TABLET.DR PO (09:10)
[2024-02-15] MEDS: LORazepam 1 MG TABLET 2 MG PO ×2 (15:19→19:29)
[2024-02-15 20:00] VITALS: BP 139/65; RESP 16; TEMP 35.9
[2024-02-16 07:00] VITALS: BMI 23.7
[2024-02-16 07:55] VITALS: BP 154/78; PULSE 91; RESP 16; TEMP 36.3; O2SAT 97
[2024-02-16] MEDS: carBAMazepine 200 MG TABLET PO (07:56)
[2024-02-16] MEDS: Cholecalciferol (Vitamin D3) 25 MCG TABLET 50 MCG PO (07:56)
[2024-02-16] MEDS: amLODIPine Besylate 10 MG TABLET PO (07:56)
[2024-02-16] MEDS: Atorvastatin Calcium 40 MG TABLET PO (07:56)
[2024-02-16] MEDS: Ferrous Sulfate 324 MG TABLET.DR PO (07:56)
[2024-02-16] MEDS: Valproic Acid Liquid 250 MG/5 ML SOLUTION 750 MG PO ×2 (07:57→20:46)
[2024-02-16] MEDS: Haloperidol Lactate Oral Conc 10 MG/5 ML ORAL.CONC PO ×2 (07:57→20:46)
[2024-02-16 09:36] LABS: Anion Gap 15 (12-20); Blood Urea Nitrogen 18 mg/dL (9-16); Calcium 8.9 mg/dL (8.4-10.2); Carbon Dioxide 23 mmol/L (22-29); Chloride 107 mmol/L (96-108); Creatinine Clr Calc Pharmacy 52.6; Estimated Glomerular Filt Rate 51; Glucose Random 237 mg/dL (60-115); Sodium 140 mmol/L (135-145)
--- NOTE | 2024-02-16 14:13 | HO.PSYCHPN ---
Subjective Subjective Date of Service: 02/16/24 Reason For Visit: Schizoaffective disorder Subjective Notes: Gareth Order, Section 7 and Section 8 Interim History: The nursing staff reported the patient was cooperative in the morning then later restless yesterday and needed IM times twice. He slept well last night. Today in the morning he was over-sedated. Mental Status Exam Mental Status Exam Patient Appearance: Appropriate and Unkempt Patient Orientation: Person Level of Consciousness: Disoriented and Restless Patient Behavior: Guarded and Passive Mood Description: Calm Affect Description: Labile Patient Cognition Impaired: Yes Ability to Follow Directions: Good Speech Pattern: Clear Hallucinations: Auditory Delusions: Paranoid Ideation and Ideas of Reference Thought Process: Distracted and Slowed Thinking Thought Content: positive for Watson and positive for Poverty of Content Judgement: Poor Diagnostics Vital Signs (24Hr): Vital Signs - 24 hr 02/15/24 20:00 02/16/24 07:55 Temperature 96.7 F L 97.3 F Pulse Rate 91 Respiratory Rate 16 16 Blood Pressure 139/65 154/78 H Pulse Oximetry 97 Oxygen Delivery Method Room Air BMI result Body Mass Index 23.7 Labs 02/14/24 08:56 02/16/24 09:06 Labs: Laboratory Results - last 48 hr 02/16/24 09:06 Sodium 140 Potassium 5.0 Chloride 107 Carbon Dioxide 23 Anion Gap 15 BUN 18 H Creatinine 1.39 Estim Creat Clear Calc 52.6 Estimated GFR 51 Random Glucose 237 H Calcium 8.9 Total Creatine Kinase 423 H Medications Medications Current Medications Acetaminophen (Acetaminophen 325 Mg Tablet) 650 mg PO Q6H PRN PRN Reason: Headache/Pain Mild Scale (1-3) Last Admin: 01/17/24 23:53 Dose: 325 mg Al Hydroxide/Mg Hydroxide (Magnesium Hydrox/Alum Hydrox 30 Ml Oral.Susp) 30 ml PO Q6H PRN PRN Reason: Heartburn/Nausea Amlodipine Besylate (Amlodipine Besylate 10 Mg Tablet) 10 mg PO DAILY [facility]; Protocol Last Admin: 02/16/24 07:56 Dose: 10 mg Aspirin (Aspirin 81 Mg Tab.Chew) 81 mg PO DAILY [facility] Last Admin: 02/16/24 10:07 Dose: Not Given Atorvastatin Calcium (Atorvastatin Calcium 40 Mg Tablet) 40 mg PO DAILY [facility] Last Admin: 02/16/24 07:56 Dose: 40 mg Carbamazepine (Carbamazepine 200 Mg Tablet) 200 mg PO BID [facility] Last Admin: 02/16/24 07:56 Dose: 200 mg Clonidine (Clonidine 0.1 Mg Patch.Tdwk) 0.1 mg TRANSDERMA Sa@0900 [facility]; Protocol Last Admin: 02/11/24 14:18 Dose: 0.1 mg Ferrous Sulfate (Ferrous Sulfate 324 Mg Tablet.Dr) 324 mg PO BIDWM [facility] Last Admin: 02/16/24 07:56 Dose: 324 mg Haloperidol Lactate (Haloperidol Lactate 5 Mg/Ml Vial) 10 mg IM BID PRN PRN Reason: Refusal of Court PO Haldol Last Admin: 02/12/24 21:21 Dose: 10 mg Haloperidol Lactate (Haloperidol Lactate Oral Conc 10 Mg/5 Ml Oral.Conc) 5 mg PO Q6H PRN PRN Reason: Psychosis or severe agitation Last Admin: 02/15/24 15:18 Dose: 5 mg Haloperidol Lactate (Haloperidol Lactate Oral Conc 10 Mg/5 Ml Oral.Conc) 10 mg PO BID [facility] Last Admin: 02/16/24 07:57 Dose: 10 mg Lorazepam (Lorazepam 1 Mg Tablet) 2 mg PO Q6H PRN PRN Reason: agitation Last Admin: 02/15/24 19:29 Dose: 2 mg Magnesium Hydroxide (Milk Of Magnesia 30 Ml Oral.Susp) 30 ml PO DAILY PRN PRN Reason: Constipation Nicotine Polacrilex (Nicotine Polacrilex 2 Mg Gum) 2 mg BUCCAL Q2H PRN PRN Reason: Nicotine Cravings Trazodone HCl (Trazodone Hcl 50 Mg Tablet) 50 mg PO BEDTIME MRX1 PRN PRN Reason: Insomnia Last Admin: 02/14/24 01:30 Dose: 50 mg Valproic Acid (Valproic Acid Liquid 250 Mg/5 Ml Solution) 750 mg PO BID [facility] Last Admin: 02/16/24 07:57 Dose: 750 mg Vitamin D (Cholecalciferol (Vitamin D3) 25 Mcg Tablet) 50 mcg PO DAILY [facility] Last Admin: 02/16/24 07:56 Dose: 50 mcg Allergies Allergies Allergy/AdvReac Type Severity Reaction Status Date / Time lithium Allergy Unknown Verified 01/13/24 18:08 Assessment & Plan Assessment & Plan (1) Schizoaffective disorder, bipolar type: Status: Acute Code(s): F25.0 - Schizoaffective disorder, bipolar type (2) Hypertension: Status: Acute Code(s): I10 - Essential (primary) hypertension (3) Diabetes mellitus: Status: Acute Code(s): E11.9 - Type 2 diabetes mellitus without complications Plan 68 yo from a [place]way with chronic psychotic disorder, refusing medication , elevated bp and disorganized and agitated behavior requiring psychiatric hospitalization and treatment not competent to sign cv. 01/14 continue to follow - gave lambs warning today- and he says the associate editor will be a she- still refusing medications and quite psychotic takes alot of redirection to settle him poor adls- 01/15- Refuses meds, refuses hospitalist consult-second day File for Section Seven consideration on 01/17. Provide care as he will allow. 01/16: Depakote 250 mg bid Haldol, Lorazepam, Benadryl prn Section 7 to be filed 01/17 Message left for guardian. 01/17: Section Seven filed. . Court scheduled 01/26/24 Pt continues to refuse medicaitons. He is in need of full assist with ADL's and is incontinent. Pt transferred to [facility] this afternoon. 01/19/2024 Patient pending civil commitment loud agitated would not engage in any conversation with this radio script writer non informational healing agitated verbally aggressive. Every attempt being made to get a copy of the patient's Servin order unclear why this has been so problematic. Encourage food and fluids 01/19 continue same treatment 01/21/24 Patient labile agitated intrusive close labs ordered in order to per to protect the community patient wandering into patient's rooms intrusive impulsive laying on another person's bed. Often hostile agitated posturing at times we are still pending copy of reported Servin order encourage p.o. compliance 01/22/2024 Patient did require physical hold escort him out of a room that he jumped in other patient's room and on their bed while there were in it. There was no physical harm and the patient did leave the room his markedly impulsive with poor judgment remains on close observation has intermittently taken Haldol liquid pending civil commitment treatment plan there is a question of Servin order 01/22 The patient had been more agitated. We review his Servin order and we are increasing the Abilify up to 15 mg p.o. daily and adding Haldol p.r.n. since it is in his role years order. We needed to give him some p.r.n. at 14:00. 01/23 The patient is grossly psychotic disrobing and sexually disinhibited we are starting Haldol 2 mg p.o. t.i.d. to target psychosis as per court order treatment over objection order. 01/24 The patient remains very agitated and angry disruptive so we are increasing the Haldol from 2 mg to 5 mg p.o. t.i.d. with a backup IM if the patient refused as per court order. 01/25 we have increased the Haldol but still he is very psychotic and restless. Today he refused his blood work. He needed to be physically held twice. 01/26 the patient remains agitated at times but his last IM backup was yesterday. We are going to increase Abilify up to 20 mg daily to target mood lability and psychosis. 01/29/2024: Increase frequency of prn doses from tid to prn q 6mrs. Poor insight and unable to care for self 02/08 pt has not take any of mood stabilizer. continues to have poor sleep, intrusive and combative requiring IM medications, increase haldol 10mg po TID, back up IM. Will add ativan 1mg po TID, also back up IM. Labs show elevated CK 2300, BUN 20, Cr 1.80, unclear baseline Cr as he does have CKD. Discussed with hospitalist Dr. Gama, to give IV fluids and monitor labs tomorrow. LFTs also elevated suspect this is secondary to elevation in CK and should trend down as CK goes down. 02/09 still agitated, creatinine and CPK slightly high as yesterday, he removed his IV line there is no big difference with IV hydration. We are changing his community role years to have more options since it is not working Abilify and Haldol 02/10 3 chemical restraints yesterday. appears more combative, and somewhat more confused. Will decrease amount of benzo and antihistamine given to him as it seems to be backfiring. did discuss with ICU attending, Dr. Whiteside possibility of transferring there but they would like us to try IV depakote and exhaust all resources prior to considering transfer. Pt did take depakote springkle 1000mg with apple sauce with much encourage. 02/11 continue tx. 02/12 continue same treatment 01/14 continue with Abilify and other court order medications, we are Namenda and the court order. 02/14 Team report improvement today with pt having greater comfort and less agitation. [id number] the staff reported that the patient had been less violent in the last 24 hours Reason for continued inpatient stay Substantial Risk for: inability to function, rapid decompensation and med/psych decompensation Time Spent With Patient Time: Total time managing care of this patient today __20__ minutes.
[2024-02-16] MEDS: Haloperidol Lactate Oral Conc 10 MG/5 ML ORAL.CONC 5 MG PO (17:08)
[2024-02-16 20:00] VITALS: RESP 16
[2024-02-16] MEDS: LORazepam 1 MG TABLET 2 MG PO (20:47)
[2024-02-17] MEDS: Haloperidol Lactate Oral Conc 10 MG/5 ML ORAL.CONC 5 MG PO ×3 (05:30→23:43)
[2024-02-17] MEDS: LORazepam 1 MG TABLET 2 MG PO ×3 (07:50→19:38)
[2024-02-17] MEDS: carBAMazepine 200 MG TABLET PO ×2 (07:50→19:39)
[2024-02-17] MEDS: Valproic Acid Liquid 250 MG/5 ML SOLUTION 750 MG PO ×2 (07:50→19:38)
[2024-02-17] MEDS: Haloperidol Lactate Oral Conc 10 MG/5 ML ORAL.CONC PO ×2 (07:56→19:38)
[2024-02-17 08:00] VITALS: BP 170/86; PULSE 112; RESP 18; TEMP 36.4; O2SAT 97
--- NOTE | 2024-02-17 09:08 | HO.PSYCHPN ---
Subjective Subjective Date of Service: 02/17/24 Reason For Visit: Schizoaffective disorder Subjective Notes: Section 7 Interim History: Pt slept about 8hrs. Pt sitting in chair. He reports there's a lot going on when asked to explain not able to provide more information. He denies SI/HI. At times he put himself on the floor and roll over, but able to be redirected. Medication Compliance: Intermittent Review of Systems Review of Systems I want my gdam black coffee with 8 sugars Yes Unobtainable due to mental status Mental Status Exam Mental Status Exam Narrative: Appearance: wearing hospital gown, fair hygine, pacing, loud, singing, intrusive Behavior: guarded, irritable Psychomotor: agitated Speech: mostly clear, normal rate/rhythm/volume, spontaneous TP: mostly linear TC:feeling better Mood: fine Affect: labile SI: denies HI: denies VH/AH: internally preoccupied Delusions: sexualized delusions Insight/judgment: impaired x 2. memory/cog: alert, not oriented to situation Diagnostics Vital Signs (24Hr): Vital Signs - 24 hr 02/16/24 20:00 Respiratory Rate 16 BMI result Body Mass Index 23.7 Labs 02/14/24 08:56 02/16/24 09:06 Labs: Laboratory Results - last 48 hr 02/16/24 09:06 Sodium 140 Potassium 5.0 Chloride 107 Carbon Dioxide 23 Anion Gap 15 BUN 18 H Creatinine 1.39 Estim Creat Clear Calc 52.6 Estimated GFR 51 Random Glucose 237 H Calcium 8.9 Total Creatine Kinase 423 H Medications Medications Current Medications Acetaminophen (Acetaminophen 325 Mg Tablet) 650 mg PO Q6H PRN PRN Reason: Headache/Pain Mild Scale (1-3) Last Admin: 01/17/24 23:53 Dose: 325 mg Al Hydroxide/Mg Hydroxide (Magnesium Hydrox/Alum Hydrox 30 Ml Oral.Susp) 30 ml PO Q6H PRN PRN Reason: Heartburn/Nausea Amlodipine Besylate (Amlodipine Besylate 10 Mg Tablet) 10 mg PO DAILY [facility]; Protocol Last Admin: 02/17/24 08:01 Dose: Not Given Aspirin (Aspirin 81 Mg Tab.Chew) 81 mg PO DAILY [facility] Last Admin: 02/17/24 08:01 Dose: Not Given Atorvastatin Calcium (Atorvastatin Calcium 40 Mg Tablet) 40 mg PO DAILY [facility] Last Admin: 02/17/24 08:01 Dose: Not Given Carbamazepine (Carbamazepine 200 Mg Tablet) 200 mg PO BID [facility] Last Admin: 02/17/24 07:50 Dose: 200 mg Clonidine (Clonidine 0.1 Mg Patch.Tdwk) 0.1 mg TRANSDERMA Sa@0900 [facility]; Protocol Last Admin: 02/11/24 14:18 Dose: 0.1 mg Ferrous Sulfate (Ferrous Sulfate 324 Mg Tablet.Dr) 324 mg PO BIDWM [facility] Last Admin: 02/17/24 08:01 Dose: Not Given Haloperidol Lactate (Haloperidol Lactate 5 Mg/Ml Vial) 10 mg IM BID PRN PRN Reason: Refusal of Court PO Haldol Last Admin: 02/12/24 21:21 Dose: 10 mg Haloperidol Lactate (Haloperidol Lactate Oral Conc 10 Mg/5 Ml Oral.Conc) 5 mg PO Q6H PRN PRN Reason: Psychosis or severe agitation Last Admin: 02/17/24 05:30 Dose: 5 mg Haloperidol Lactate (Haloperidol Lactate Oral Conc 10 Mg/5 Ml Oral.Conc) 10 mg PO BID [facility] Last Admin: 02/17/24 07:56 Dose: 10 mg Lorazepam (Lorazepam 1 Mg Tablet) 2 mg PO Q6H PRN PRN Reason: agitation Last Admin: 02/17/24 07:50 Dose: 2 mg Magnesium Hydroxide (Milk Of Magnesia 30 Ml Oral.Susp) 30 ml PO DAILY PRN PRN Reason: Constipation Nicotine Polacrilex (Nicotine Polacrilex 2 Mg Gum) 2 mg BUCCAL Q2H PRN PRN Reason: Nicotine Cravings Trazodone HCl (Trazodone Hcl 50 Mg Tablet) 50 mg PO BEDTIME MRX1 PRN PRN Reason: Insomnia Last Admin: 02/14/24 01:30 Dose: 50 mg Valproic Acid (Valproic Acid Liquid 250 Mg/5 Ml Solution) 750 mg PO BID [facility] Last Admin: 02/17/24 07:50 Dose: 750 mg Vitamin D (Cholecalciferol (Vitamin D3) 25 Mcg Tablet) 50 mcg PO DAILY [facility] Last Admin: 02/17/24 08:01 Dose: Not Given Allergies Allergies Allergy/AdvReac Type Severity Reaction Status Date / Time lithium Allergy Unknown Verified 01/13/24 18:08 Assessment & Plan Assessment & Plan (1) Schizoaffective disorder, bipolar type: Status: Acute Code(s): F25.0 - Schizoaffective disorder, bipolar type (2) Hypertension: Status: Acute Code(s): I10 - Essential (primary) hypertension (3) Diabetes mellitus: Status: Acute Code(s): E11.9 - Type 2 diabetes mellitus without complications Plan 68 yo from a [facility] with chronic psychotic disorder, refusing medication , elevated bp and disorganized and agitated behavior requiring psychiatric hospitalization and treatment not competent to sign cv. 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 Provide care as he will allow. 01/16: Depakote 250 mg bid Haldol, Lorazepam, Benadryl prn Section 7 to be filed 01/17 Message left for guardian. 01/17: Section Seven filed. . Court scheduled 01/26/24 Pt continues to refuse medicaitons. He is in need of full assist with ADL's and is incontinent. Pt transferred to [facility] this afternoon. 01/19/2024 Patient pending civil commitment loud agitated would not engage in any conversation with this continuity writer non informational healing agitated verbally aggressive. Every attempt being made to get a copy of the patient's Servin order unclear why this has been so problematic. Encourage food and fluids 01/19 continue same treatment 01/21/24 Patient labile agitated intrusive close labs ordered in order to per to protect the community patient wandering into patient's rooms intrusive impulsive laying on another person's bed. Often hostile agitated posturing at times we are still pending copy of reported Servin order encourage p.o. compliance 01/22/2024 Patient did require physical hold escort him out of a room that he jumped in other patient's room and on their bed while there were in it. There was no physical harm and the patient did leave the room his markedly impulsive with poor judgment remains on close observation has intermittently taken Haldol liquid pending civil commitment treatment plan there is a question of Servin order 01/22 The patient had been more agitated. We review his Servin order and we are increasing the Abilify up to 15 mg p.o. daily and adding Haldol p.r.n. since it is in his role years order. We needed to give him some p.r.n. at 14:00. 01/23 The patient is grossly psychotic disrobing and sexually disinhibited we are starting Haldol 2 mg p.o. t.i.d. to target psychosis as per court order treatment over objection order. 01/24 The patient remains very agitated and angry disruptive so we are increasing the Haldol from 2 mg to 5 mg p.o. t.i.d. with a backup IM if the patient refused as per court order. 01/25 we have increased the Haldol but still he is very psychotic and restless. Today he refused his blood work. He needed to be physically held twice. 01/26 the patient remains agitated at times but his last IM backup was yesterday. We are going to increase Abilify up to 20 mg daily to target mood lability and psychosis. 01/29/2024: Increase frequency of prn doses from tid to prn q 6mrs. Poor insight and unable to care for self 02/08 pt has not take any of mood stabilizer. continues to have poor sleep, intrusive and combative requiring IM medications, increase haldol 10mg po TID, back up IM. Will add ativan 1mg po TID, also back up IM. Labs show elevated CK 2300, BUN 20, Cr 1.80, unclear baseline Cr as he does have CKD. Discussed with hospitalist Dr. Gama, to give IV fluids and monitor labs tomorrow. LFTs also elevated suspect this is secondary to elevation in CK and should trend down as CK goes down. 02/09 still agitated, creatinine and CPK slightly high as yesterday, he removed his IV line there is no big difference with IV hydration. We are changing his community role years to have more options since it is not working Abilify and Haldol 02/10 3 chemical restraints yesterday. appears more combative, and somewhat more confused. Will decrease amount of benzo and antihistamine given to him as it seems to be backfiring. did discuss with ICU attending, Dr. Whiteside possibility of transferring there but they would like us to try IV depakote and exhaust all resources prior to considering transfer. Pt did take depakote springkle 1000mg with apple sauce with much encourage. 02/11 continue tx. 02/12 continue same treatment 01/14 continue with Abilify and other court order medications, we are Namenda and the court order. 02/14 Team report improvement today with pt having greater comfort and less agitation. 1126 the staff reported that the patient had been less violent in the last 24 hours 02/16 continue tx. will check depakote and ammonia on 02/17 in AM. Reason for continued inpatient stay Substantial Risk for: harm to others and inability to function Time Spent With Patient Time: Total time managing care of this patient today ____ minutes.
[2024-02-17] MEDS: amLODIPine Besylate 10 MG TABLET PO (10:43)
[2024-02-17] MEDS: cloNIDine 0.2 MG PATCH.TDWK TRANSDERMA (14:20)
[2024-02-17 19:50] VITALS: BP 151/81; PULSE 99; RESP 15; TEMP 35.9; O2SAT 100
[2024-02-18] MEDS: LORazepam 1 MG TABLET 2 MG PO ×2 (03:32→22:53)
[2024-02-18 07:58] LABS: Ammonia 56 umol/L (13-55)
[2024-02-18 08:02] LABS: Valproate 60.6 mcg/mL (50.0-100.0)
[2024-02-18] MEDS: carBAMazepine 200 MG TABLET PO ×2 (08:17→21:00)
[2024-02-18] MEDS: Cholecalciferol (Vitamin D3) 25 MCG TABLET 50 MCG PO (08:24)
[2024-02-18] MEDS: Aspirin 81 MG TAB.CHEW PO (08:24)
[2024-02-18] MEDS: Ferrous Sulfate 324 MG TABLET.DR PO (08:24)
[2024-02-18] MEDS: Atorvastatin Calcium 40 MG TABLET PO (08:25)
[2024-02-18 08:27] VITALS: BP 156/77; PULSE 68; RESP 14; TEMP 36.3; O2SAT 100
[2024-02-18] MEDS: amLODIPine Besylate 10 MG TABLET PO (08:28)
[2024-02-18] MEDS: Valproic Acid Liquid 250 MG/5 ML SOLUTION 750 MG PO ×2 (08:28→22:54)
[2024-02-18] MEDS: Haloperidol Lactate Oral Conc 10 MG/5 ML ORAL.CONC PO ×2 (08:28→22:54)
--- NOTE | 2024-02-18 15:20 | HO.PSYCHPN ---
Subjective Subjective Date of Service: 02/18/24 Reason For Visit: Schizoaffective disorder Interim History: Pt seen, discussed with the team Plan of care was reviewed. Labs- ammonia sl high at 56, Valproate 60.6 Pt is asleep when seen. Team describe his a volatile. He is taking medicine. It has been 48 hours without medicine restraint need. Pt is unsteady with ambulation. Team has made recent med changes and efficacy is being evaluated. Medication Compliance: Yes Side effects from medications: No Review of Systems Acute medical concerns: No Medical Review of Systems: unchanged Review of Systems Review of Systems Yes Unobtainable due to mental status Mental Status Exam Mental Status Exam Narrative: This a.m. pt is calm, non agitated and sleeping. He awakens easily and remains calm when seen Diagnostics Vital Signs (24Hr): Vital Signs - 24 hr 02/17/24 19:50 02/18/24 08:27 Temperature 96.7 F L 97.3 F Pulse Rate 99 68 Respiratory Rate 15 14 Blood Pressure 151/81 H 156/77 H Pulse Oximetry 100 100 Oxygen Delivery Method Room Air Room Air BMI result Body Mass Index 23.7 Labs 02/14/24 08:56 02/16/24 09:06 Labs: Laboratory Results - last 48 hr 02/18/24 07:39 Ammonia 56 H Valproic Acid 60.6 Medications Medications Current Medications Acetaminophen (Acetaminophen 325 Mg Tablet) 650 mg PO Q6H PRN PRN Reason: Headache/Pain Mild Scale (1-3) Last Admin: 01/17/24 23:53 Dose: 325 mg Al Hydroxide/Mg Hydroxide (Magnesium Hydrox/Alum Hydrox 30 Ml Oral.Susp) 30 ml PO Q6H PRN PRN Reason: Heartburn/Nausea Amlodipine Besylate (Amlodipine Besylate 10 Mg Tablet) 10 mg PO DAILY [facility]; Protocol Last Admin: 02/18/24 08:28 Dose: 10 mg Aspirin (Aspirin 81 Mg Tab.Chew) 81 mg PO DAILY [facility] Last Admin: 02/18/24 08:24 Dose: 81 mg Atorvastatin Calcium (Atorvastatin Calcium 40 Mg Tablet) 40 mg PO DAILY [facility] Last Admin: 02/18/24 08:25 Dose: 40 mg Carbamazepine (Carbamazepine 200 Mg Tablet) 200 mg PO BID [facility] Last Admin: 02/18/24 08:25 Dose: 200 mg Clonidine (Clonidine 0.2 Mg Patch.Tdwk) 0.2 mg TRANSDERMA Fr@0900 [facility]; Protocol Last Admin: 02/17/24 14:20 Dose: 0.2 mg Ferrous Sulfate (Ferrous Sulfate 324 Mg Tablet.Dr) 324 mg PO BIDWM [facility] Last Admin: 02/18/24 08:24 Dose: 324 mg Haloperidol Lactate (Haloperidol Lactate 5 Mg/Ml Vial) 10 mg IM BID PRN PRN Reason: Refusal of Court PO Haldol Last Admin: 02/12/24 21:21 Dose: 10 mg Haloperidol Lactate (Haloperidol Lactate Oral Conc 10 Mg/5 Ml Oral.Conc) 5 mg PO Q6H PRN PRN Reason: Psychosis or severe agitation Last Admin: 02/17/24 23:43 Dose: 5 mg Haloperidol Lactate (Haloperidol Lactate Oral Conc 10 Mg/5 Ml Oral.Conc) 10 mg PO BID [facility] Last Admin: 02/18/24 08:28 Dose: 10 mg Lorazepam (Lorazepam 1 Mg Tablet) 2 mg PO Q6H PRN PRN Reason: agitation Last Admin: 02/18/24 03:32 Dose: 2 mg Magnesium Hydroxide (Milk Of Magnesia 30 Ml Oral.Susp) 30 ml PO DAILY PRN PRN Reason: Constipation Nicotine Polacrilex (Nicotine Polacrilex 2 Mg Gum) 2 mg BUCCAL Q2H PRN PRN Reason: Nicotine Cravings Trazodone HCl (Trazodone Hcl 50 Mg Tablet) 50 mg PO BEDTIME MRX1 PRN PRN Reason: Insomnia Last Admin: 02/14/24 01:30 Dose: 50 mg Valproic Acid (Valproic Acid Liquid 250 Mg/5 Ml Solution) 750 mg PO BID [facility] Last Admin: 02/18/24 08:28 Dose: 750 mg Vitamin D (Cholecalciferol (Vitamin D3) 25 Mcg Tablet) 50 mcg PO DAILY [facility] Last Admin: 02/18/24 08:24 Dose: 50 mcg Allergies Allergies Allergy/AdvReac Type Severity Reaction Status Date / Time lithium Allergy Unknown Verified 01/13/24 18:08 Assessment & Plan Assessment & Plan (1) Schizoaffective disorder, bipolar type: Status: Acute Code(s): F25.0 - Schizoaffective disorder, bipolar type (2) Hypertension: Status: Acute Code(s): I10 - Essential (primary) hypertension (3) Diabetes mellitus: Status: Acute Code(s): E11.9 - Type 2 diabetes mellitus without complications Plan 68 yo from a half-way with chronic psychotic disorder, refusing medication , elevated bp and disorganized and agitated behavior requiring psychiatric hospitalization and treatment not competent to sign cv. 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 Provide care as he will allow. 01/16: Depakote 250 mg bid Haldol, Lorazepam, Benadryl prn Section 7 to be filed 01/17 Message left for guardian. 01/17: Section [address] filed. . Court scheduled 01/26/24 Pt continues to refuse medicaitons. He is in need of full assist with ADL's and is incontinent. Pt transferred to [facility] this afternoon. 01/19/2024 Patient pending civil commitment loud agitated would not engage in any conversation with this senior medical writer non informational healing agitated verbally aggressive. Every attempt being made to get a copy of the patient's Servin order unclear why this has been so problematic. Encourage food and fluids 01/19 continue same treatment 01/21/24 Patient labile agitated intrusive close labs ordered in order to per to protect the community patient wandering into patient's rooms intrusive impulsive laying on another person's bed. Often hostile agitated posturing at times we are still pending copy of reported Servin order encourage p.o. compliance 01/22/2024 Patient did require physical hold escort him out of a room that he jumped in other patient's room and on their bed while there were in it. There was no physical harm and the patient did leave the room his markedly impulsive with poor judgment remains on close observation has intermittently taken Haldol liquid pending civil commitment treatment plan there is a question of Servin order 01/22 The patient had been more agitated. We review his Servin order and we are increasing the Abilify up to 15 mg p.o. daily and adding Haldol p.r.n. since it is in his role years order. We needed to give him some p.r.n. at 14:00. 12/3 The patient is grossly psychotic disrobing and sexually disinhibited we are starting Haldol 2 mg p.o. t.i.d. to target psychosis as per court order treatment over objection order. 01/24 The patient remains very agitated and angry disruptive so we are increasing the Haldol from 2 mg to 5 mg p.o. t.i.d. with a backup IM if the patient refused as per court order. 01/25 we have increased the Haldol but still he is very psychotic and restless. Today he refused his blood work. He needed to be physically held twice. 01/26 the patient remains agitated at times but his last IM backup was yesterday. We are going to increase Abilify up to 20 mg daily to target mood lability and psychosis. 01/29/2024: Increase frequency of prn doses from tid to prn q 6mrs. Poor insight and unable to care for self 02/08 pt has not take any of mood stabilizer. continues to have poor sleep, intrusive and combative requiring IM medications, increase haldol 10mg po TID, back up IM. Will add ativan 1mg po TID, also back up IM. Labs show elevated CK 2300, BUN 20, Cr 1.80, unclear baseline Cr as he does have CKD. Discussed with hospitalist Dr. Gama, to give IV fluids and monitor labs tomorrow. LFTs also elevated suspect this is secondary to elevation in CK and should trend down as CK goes down. 02/09 still agitated, creatinine and CPK slightly high as yesterday, he removed his IV line there is no big difference with IV hydration. We are changing his community role years to have more options since it is not working Abilify and Haldol 02/10 3 chemical restraints yesterday. appears more combative, and somewhat more confused. Will decrease amount of benzo and antihistamine given to him as it seems to be backfiring. did discuss with ICU attending, Dr. Whiteside possibility of transferring there but they would like us to try IV depakote and exhaust all resources prior to considering transfer. Pt did take depakote springkle 1000mg with apple sauce with much encourage. 02/11 continue tx. 02/12 continue same treatment 01/14 continue with Abilify and other court order medications, we are Namenda and the court order. 02/14 Team report improvement today with pt having greater comfort and less agitation. [id number] the staff reported that the patient had been less violent in the last 24 hours 02/16 continue tx. will check depakote and ammonia on 02/17 in AM. 02/17 continue regime and plan of care Reason for continued inpatient stay Substantial Risk for: rapid decompensation and med/psych decompensation Time Spent With Patient Time: Total time managing care of this patient today ____ minutes.
[2024-02-18] MEDS: traZODone HCL 50 MG TABLET PO (22:53)
[2024-02-19] MEDS: Valproic Acid Liquid 250 MG/5 ML SOLUTION 750 MG PO ×2 (07:41→20:03)
[2024-02-19] MEDS: Haloperidol Lactate Oral Conc 10 MG/5 ML ORAL.CONC PO ×2 (07:41→20:04)
[2024-02-19 07:44] VITALS: BP 125/58; PULSE 77; RESP 16; TEMP 35.9; O2SAT 98
[2024-02-19] MEDS: Aspirin 81 MG TAB.CHEW PO (07:45)
[2024-02-19] MEDS: Haloperidol Lactate Oral Conc 10 MG/5 ML ORAL.CONC 5 MG PO ×3 (09:12→22:26)
--- NOTE | 2024-02-19 13:55 | P.PNPSI_ITS ---
Subjective Subjective Date of Service: 02/19/24 Reason For Visit: Schizoaffective disorder Interim History: Pt seen in milieu, eating lunch, several team members attending him, discussed with the team. Plan of care reviewed. Team reports pt is difficult to manage and can place them at risk for injury given his level of agitation at times. They report it is challenging to help him keep safe. He is attentive, responsive, confused. He is inconsistent with medicines. He appears comfortable without sx of distress. Medication Compliance: Intermittent Side effects from medications: No Attending Groups: No Review of Systems Medical Review of Systems: unchanged Review of Systems Review of Systems one to one specialing Mental Status Exam Mental Status Exam Patient Appearance: Appropriate Patient Orientation: Person and Situation Level of Consciousness: Awake and Appropriate Patient Behavior: Guarded and Passive Mood Description: Withdrawn Affect Description: Constricted Patient Cognition Impaired: Yes Ability to Follow Directions: Good Speech Pattern: Clear Hallucinations: Auditory Delusions: Paranoid Ideation and Ideas of Reference Thought Process: Distracted and Slowed Thinking Thought Content: positive for [place] and positive for Poverty of Content Judgement: Fair Diagnostics Vital Signs (24Hr): Vital Signs - 24 hr 02/19/24 07:44 Temperature 96.7 F L Pulse Rate 77 Respiratory Rate 16 Blood Pressure 125/58 L Pulse Oximetry 98 Oxygen Delivery Method Room Air BMI result Body Mass Index 23.7 Labs 02/14/24 08:56 02/16/24 09:06 Labs: Laboratory Results - last 48 hr 02/18/24 07:39 Ammonia 56 H Valproic Acid 60.6 Medications Medications Current Medications Acetaminophen (Acetaminophen 325 Mg Tablet) 650 mg PO Q6H PRN PRN Reason: Headache/Pain Mild Scale (1-3) Last Admin: 01/17/24 23:53 Dose: 325 mg Al Hydroxide/Mg Hydroxide (Magnesium Hydrox/Alum Hydrox 30 Ml Oral.Susp) 30 ml PO Q6H PRN PRN Reason: Heartburn/Nausea Amlodipine Besylate (Amlodipine Besylate 10 Mg Tablet) 10 mg PO DAILY [facility]; Protocol Last Admin: 02/19/24 08:06 Dose: Not Given Aspirin (Aspirin 81 Mg Tab.Chew) 81 mg PO DAILY [facility] Last Admin: 02/19/24 07:45 Dose: 81 mg Atorvastatin Calcium (Atorvastatin Calcium 40 Mg Tablet) 40 mg PO DAILY [facility] Last Admin: 02/19/24 08:07 Dose: Not Given Carbamazepine (Carbamazepine 200 Mg Tablet) 200 mg PO BID [facility] Last Admin: 02/19/24 08:37 Dose: Not Given Clonidine (Clonidine 0.2 Mg Patch.Tdwk) 0.2 mg TRANSDERMA Fr@0900 [facility]; Protocol Last Admin: 02/17/24 14:20 Dose: 0.2 mg Ferrous Sulfate (Ferrous Sulfate 324 Mg Tablet.) 324 mg PO BIDWM [facility] Last Admin: 02/19/24 08:06 Dose: Not Given Haloperidol Lactate (Haloperidol Lactate 5 Mg/Ml Vial) 10 mg IM BID PRN PRN Reason: Refusal of Court PO Haldol Last Admin: 02/12/24 21:21 Dose: 10 mg Haloperidol Lactate (Haloperidol Lactate Oral Conc 10 Mg/5 Ml Oral.Conc) 5 mg PO Q6H PRN PRN Reason: Psychosis or severe agitation Last Admin: 02/19/24 09:12 Dose: 5 mg Haloperidol Lactate (Haloperidol Lactate Oral Conc 10 Mg/5 Ml Oral.Conc) 10 mg PO BID [facility] Last Admin: 02/19/24 07:41 Dose: 10 mg Lorazepam (Lorazepam 1 Mg Tablet) 2 mg PO Q6H PRN PRN Reason: agitation Last Admin: 02/18/24 22:53 Dose: 2 mg Magnesium Hydroxide (Milk Of Magnesia 30 Ml Oral.Susp) 30 ml PO DAILY PRN PRN Reason: Constipation Nicotine Polacrilex (Nicotine Polacrilex 2 Mg Gum) 2 mg BUCCAL Q2H PRN PRN Reason: Nicotine Cravings Trazodone HCl (Trazodone Hcl 50 Mg Tablet) 50 mg PO BEDTIME MRX1 PRN PRN Reason: Insomnia Last Admin: 02/18/24 22:53 Dose: 50 mg Valproic Acid (Valproic Acid Liquid 250 Mg/5 Ml Solution) 750 mg PO BID [facility] Last Admin: 02/19/24 07:41 Dose: 750 mg Vitamin D (Cholecalciferol (Vitamin D3) 25 Mcg Tablet) 50 mcg PO DAILY [facility] Last Admin: 02/19/24 08:07 Dose: Not Given Allergies Allergies Allergy/AdvReac Type Severity Reaction Status Date / Time lithium Allergy Unknown Verified 01/13/24 18:08 Assessment & Plan Assessment & Plan (1) Schizoaffective disorder, bipolar type: Status: Acute Code(s): F25.0 - Schizoaffective disorder, bipolar type (2) Hypertension: Status: Acute Code(s): I10 - Essential (primary) hypertension (3) Diabetes mellitus: Status: Acute Code(s): E11.9 - Type 2 diabetes mellitus without complications Plan 68 yo from a halfway with chronic psychotic disorder, refusing medication , elevated bp and disorganized and agitated behavior requiring psychiatric hospitalization and treatment not competent to sign cv. 01/14 continue to follow - gave lambs warning today- and he says the medical data entry clerk will be a she- still refusing medications and quite psychotic takes alot of redirection to settle him poor adls- 01/15- Refuses meds, refuses hospitalist consult-second day File for Section Seven consideration on 01/17. Provide care as he will allow. 01/16: Depakote 250 mg bid Haldol, Lorazepam, Benadryl prn Section 7 to be filed 01/17 Message left for guardian. 01/17: Section [address] filed. . Court scheduled 01/26/24 Pt continues to refuse medicaitons. He is in need of full assist with ADL's and is incontinent. Pt transferred to [facility] this afternoon. 01/19/2024 Patient pending civil commitment loud agitated would not engage in any conversation with this brief writer non informational healing agitated verbally aggressive. Every attempt being made to get a copy of the patient's Servin order unclear why this has been so problematic. Encourage food and fluids 01/19 continue same treatment 01/21/24 Patient labile agitated intrusive close labs ordered in order to per to protect the community patient wandering into patient's rooms intrusive impulsive laying on another person's bed. Often hostile agitated posturing at times we are still pending copy of reported Servin order encourage p.o. compliance 01/22/2024 Patient did require physical hold escort him out of a room that he jumped in other patient's room and on their bed while there were in it. There was no physical harm and the patient did leave the room his markedly impulsive with poor judgment remains on close observation has intermittently taken Haldol liquid pending civil commitment treatment plan there is a question of Servin order 01/22 The patient had been more agitated. We review his Servin order and we are increasing the Abilify up to 15 mg p.o. daily and adding Haldol p.r.n. since it is in his role years order. We needed to give him some p.r.n. at 14:00. 01/23 The patient is grossly psychotic disrobing and sexually disinhibited we are starting Haldol 2 mg p.o. t.i.d. to target psychosis as per court order treatment over objection order. 01/24 The patient remains very agitated and angry disruptive so we are increasing the Haldol from 2 mg to 5 mg p.o. t.i.d. with a backup IM if the patient refused as per court order. 01/25 we have increased the Haldol but still he is very psychotic and restless. Today he refused his blood work. He needed to be physically held twice. 01/26 the patient remains agitated at times but his last IM backup was yesterday. We are going to increase Abilify up to 20 mg daily to target mood lability and psychosis. 01/29/2024: Increase frequency of prn doses from tid to prn q 6mrs. Poor insight and unable to care for self 02/08 pt has not take any of mood stabilizer. continues to have poor sleep, intrusive and combative requiring IM medications, increase haldol 10mg po TID, back up IM. Will add ativan 1mg po TID, also back up IM. Labs show elevated CK 2300, BUN 20, Cr 1.80, unclear baseline Cr as he does have CKD. Discussed with hospitalist Dr. Gama, to give IV fluids and monitor labs tomorrow. LFTs also elevated suspect this is secondary to elevation in CK and should trend down as CK goes down. 02/09 still agitated, creatinine and CPK slightly high as yesterday, he removed his IV line there is no big difference with IV hydration. We are changing his community role years to have more options since it is not working Abilify and Haldol 02/10 3 chemical restraints yesterday. appears more combative, and somewhat more confused. Will decrease amount of benzo and antihistamine given to him as it seems to be backfiring. did discuss with ICU attending, Dr. Whiteside possibility of transferring there but they would like us to try IV depakote and exhaust all resources prior to considering transfer. Pt did take depakote springkle 1000mg with apple sauce with much encourage. 02/11 continue tx. 02/12 continue same treatment 01/14 continue with Abilify and other court order medications, we are Namenda and the court order. 02/14 Team report improvement today with pt having greater comfort and less agitation. [id number] the staff reported that the patient had been less violent in the last 24 hours 02/16 continue tx. will check depakote and ammonia on 02/17 in AM. 02/17 continue regime and plan of care Reason for continued inpatient stay Substantial Risk for: rapid decompensation Time Spent With Patient Time: Total time managing care of this patient today ____ minutes.
[2024-02-19] MEDS: LORazepam 1 MG TABLET 2 MG PO ×2 (14:51→22:28)
[2024-02-19 20:00] VITALS: BP 122/56; PULSE 66; RESP 16; TEMP 36.6; O2SAT 98
[2024-02-20] MEDS: Haloperidol Lactate Oral Conc 10 MG/5 ML ORAL.CONC 5 MG PO ×2 (06:22→13:10)
[2024-02-20] MEDS: LORazepam 1 MG TABLET 2 MG PO ×2 (06:22→13:10)
[2024-02-20 08:04] VITALS: BP 133/58; PULSE 69; RESP 18; TEMP 36.3; O2SAT 100
[2024-02-20] MEDS: Haloperidol Lactate Oral Conc 10 MG/5 ML ORAL.CONC PO ×2 (08:10→19:38)
[2024-02-20] MEDS: Valproic Acid Liquid 250 MG/5 ML SOLUTION 750 MG PO ×2 (08:10→19:38)
[2024-02-20] MEDS: carBAMazepine 200 MG TABLET PO ×2 (08:13→19:38)
--- NOTE | 2024-02-20 14:18 | P.PNPSI_ITS ---
Subjective Subjective Date of Service: 02/20/24 Reason For Visit: Schizoaffective disorder Subjective Notes: Section 7 and Section 8 Interim History: The nursing staff reported the patient had been less aggressive still dysphoric and labile but redirectable. So far he has not been chemically restrain in the last 4 days. On interview the patient denies new symptoms he looks confused but redirectable. His Depakote level is 60. We will increase slightly his Depakote. Mental Status Exam Mental Status Exam Patient Appearance: Appropriate Patient Orientation: Person and Situation Level of Consciousness: Awake and Appropriate Patient Behavior: Guarded and Passive Mood Description: Withdrawn Affect Description: Calm Patient Cognition Impaired: Yes Ability to Follow Directions: Good Speech Pattern: Clear Hallucinations: None Delusions: Paranoid Ideation and Ideas of Reference Thought Process: Distracted and Slowed Thinking Thought Content: positive for [place] and positive for Poverty of Content Judgement: Fair Diagnostics Vital Signs (24Hr): Vital Signs - 24 hr 02/19/24 20:00 02/20/24 08:04 Temperature 97.9 F 97.4 F Pulse Rate 66 69 Respiratory Rate 16 18 Blood Pressure 122/56 L 133/58 L Pulse Oximetry 98 100 Oxygen Delivery Method Room Air Room Air BMI result Body Mass Index 23.7 Labs 02/14/24 08:56 02/16/24 09:06 Medications Medications Current Medications Acetaminophen (Acetaminophen 325 Mg Tablet) 650 mg PO Q6H PRN PRN Reason: Headache/Pain Mild Scale (1-3) Last Admin: 01/17/24 23:53 Dose: 325 mg Al Hydroxide/Mg Hydroxide (Magnesium Hydrox/Alum Hydrox 30 Ml Oral.Susp) 30 ml PO Q6H PRN PRN Reason: Heartburn/Nausea Amlodipine Besylate (Amlodipine Besylate 10 Mg Tablet) 10 mg PO DAILY [facility]; Protocol Last Admin: 02/20/24 08:59 Dose: Not Given Aspirin (Aspirin 81 Mg Tab.Chew) 81 mg PO DAILY [facility] Last Admin: 02/20/24 08:59 Dose: Not Given Atorvastatin Calcium (Atorvastatin Calcium 40 Mg Tablet) 40 mg PO DAILY [facility] Last Admin: 02/20/24 08:59 Dose: Not Given Carbamazepine (Carbamazepine 200 Mg Tablet) 200 mg PO BID [facility] Last Admin: 02/20/24 08:13 Dose: 200 mg Clonidine (Clonidine 0.2 Mg Patch.Tdwk) 0.2 mg TRANSDERMA Fr@0900 [facility]; Protocol Last Admin: 02/17/24 14:20 Dose: 0.2 mg Ferrous Sulfate (Ferrous Sulfate 324 Mg Tablet.Dr) 324 mg PO BID [facility] Last Admin: 02/20/24 09:00 Dose: Not Given Haloperidol Lactate (Haloperidol Lactate 5 Mg/Ml Vial) 10 mg IM BID PRN PRN Reason: Refusal of Court PO Haldol Last Admin: 02/12/24 21:21 Dose: 10 mg Haloperidol Lactate (Haloperidol Lactate Oral Conc 10 Mg/5 Ml Oral.Conc) 5 mg PO Q6H PRN PRN Reason: Psychosis or severe agitation Last Admin: 02/20/24 13:10 Dose: 5 mg Haloperidol Lactate (Haloperidol Lactate Oral Conc 10 Mg/5 Ml Oral.Conc) 10 mg PO BID [facility] Last Admin: 02/20/24 08:10 Dose: 10 mg Lorazepam (Lorazepam 1 Mg Tablet) 2 mg PO Q6H PRN PRN Reason: agitation Last Admin: 02/20/24 13:10 Dose: 2 mg Magnesium Hydroxide (Milk Of Magnesia 30 Ml Oral.Susp) 30 ml PO DAILY PRN PRN Reason: Constipation Nicotine Polacrilex (Nicotine Polacrilex 2 Mg Gum) 2 mg BUCCAL Q2H PRN PRN Reason: Nicotine Cravings Trazodone HCl (Trazodone Hcl 50 Mg Tablet) 50 mg PO BEDTIME MRX1 PRN PRN Reason: Insomnia Last Admin: 02/18/24 22:53 Dose: 50 mg Valproic Acid (Valproic Acid Liquid 250 Mg/5 Ml Solution) 750 mg PO BID [facility] Last Admin: 02/20/24 08:10 Dose: 750 mg Vitamin D (Cholecalciferol (Vitamin D3) 25 Mcg Tablet) 50 mcg PO DAILY [facility] Last Admin: 02/20/24 08:59 Dose: Not Given Allergies Allergies Allergy/AdvReac Type Severity Reaction Status Date / Time lithium Allergy Unknown Verified 01/13/24 18:08 Assessment & Plan Assessment & Plan (1) Schizoaffective disorder, bipolar type: Status: Acute Code(s): F25.0 - Schizoaffective disorder, bipolar type (2) Hypertension: Status: Acute Code(s): I10 - Essential (primary) hypertension (3) Diabetes mellitus: Status: Acute Code(s): E11.9 - Type 2 diabetes mellitus without complications Plan 68 yo from a [facility] with chronic psychotic disorder, refusing medication , elevated bp and disorganized and agitated behavior requiring psychiatric hospitalization and treatment not competent to sign cv. 01/14 continue to follow - gave lambs warning today- and he says the director of rooms will be a she- still refusing medications and quite psychotic takes alot of redirection to settle him poor adls- 01/15- Refuses meds, refuses hospitalist consult-second day File for Section Seven consideration on 01/17. Provide care as he will allow. 01/16: Depakote 250 mg bid Haldol, Lorazepam, Benadryl prn Section 7 to be filed 01/17 Message left for guardian. 01/17: Section Seven filed. . Court scheduled 01/26/24 Pt continues to refuse medicaitons. He is in need of full assist with ADL's and is incontinent. Pt transferred to [facility] this afternoon. 01/19/2024 Patient pending civil commitment loud agitated would not engage in any conversation with this marketing underwriter non informational healing agitated verbally aggressive. Every attempt being made to get a copy of the patient's Servin order unclear why this has been so problematic. Encourage food and fluids 01/19 continue same treatment 01/21/24 Patient labile agitated intrusive close labs ordered in order to per to protect the community patient wandering into patient's rooms intrusive impulsive laying on another person's bed. Often hostile agitated posturing at times we are still pending copy of reported Servin order encourage p.o. compliance 01/22/2024 Patient did require physical hold escort him out of a room that he jumped in other patient's room and on their bed while there were in it. There was no physical harm and the patient did leave the room his markedly impulsive with poor judgment remains on close observation has intermittently taken Haldol liquid pending civil commitment treatment plan there is a question of Servin order 01/22 The patient had been more agitated. We review his Servin order and we are increasing the Abilify up to 15 mg p.o. daily and adding Haldol p.r.n. since it is in his role years order. We needed to give him some p.r.n. at 14:00. 01/23 The patient is grossly psychotic disrobing and sexually disinhibited we are starting Haldol 2 mg p.o. t.i.d. to target psychosis as per court order treatment over objection order. 01/24 The patient remains very agitated and angry disruptive so we are increasing the Haldol from 2 mg to 5 mg p.o. t.i.d. with a backup IM if the patient refused as per court order. 01/25 we have increased the Haldol but still he is very psychotic and restless. Today he refused his blood work. He needed to be physically held twice. 01/26 the patient remains agitated at times but his last IM backup was yesterday. We are going to increase Abilify up to 20 mg daily to target mood lability and psychosis. 01/29/2024: Increase frequency of prn doses from tid to prn q 6mrs. Poor insight and unable to care for self 02/08 pt has not take any of mood stabilizer. continues to have poor sleep, intrusive and combative requiring IM medications, increase haldol 10mg po TID, back up IM. Will add ativan 1mg po TID, also back up IM. Labs show elevated CK 2300, BUN 20, Cr 1.80, unclear baseline Cr as he does have CKD. Discussed with hospitalist Dr. Gama, to give IV fluids and monitor labs tomorrow. LFTs also elevated suspect this is secondary to elevation in CK and should trend down as CK goes down. 02/09 still agitated, creatinine and CPK slightly high as yesterday, he removed his IV line there is no big difference with IV hydration. We are changing his community role years to have more options since it is not working Abilify and Haldol 02/10 3 chemical restraints yesterday. appears more combative, and somewhat more confused. Will decrease amount of benzo and antihistamine given to him as it seems to be backfiring. did discuss with ICU attending, Dr. Whiteside possibility of transferring there but they would like us to try IV depakote and exhaust all resources prior to considering transfer. Pt did take depakote springkle 1000mg with apple sauce with much encourage. 02/11 continue tx. 02/12 continue same treatment 01/14 continue with Abilify and other court order medications, we are Namenda and the court order. 02/14 Team report improvement today with pt having greater comfort and less agitation. [id number] the staff reported that the patient had been less violent in the last 24 hours 02/16 continue tx. will check depakote and ammonia on 02/17 in AM. 02/17 continue regime and plan of care 02/19 continue same treatment Reason for continued inpatient stay Substantial Risk for: inability to function, rapid decompensation and med/psych decompensation Time Spent With Patient Time: Total time managing care of this patient today _20___ minutes.
[2024-02-20] MEDS: Ferrous Sulfate 324 MG TABLET.DR PO (19:38)
[2024-02-20 20:00] VITALS: BP 133/63; PULSE 86; RESP 16; TEMP 36.2; O2SAT 99
[2024-02-21 08:00] VITALS: BP 144/78; PULSE 75; RESP 18; TEMP 36.1; O2SAT 100
[2024-02-21] MEDS: Haloperidol Lactate Oral Conc 10 MG/5 ML ORAL.CONC PO ×2 (09:12→21:08)
[2024-02-21] MEDS: Aspirin 81 MG TAB.CHEW PO (09:12)
[2024-02-21] MEDS: carBAMazepine 200 MG TABLET PO ×2 (09:12→21:08)
[2024-02-21] MEDS: Valproic Acid Liquid 250 MG/5 ML SOLUTION 750 MG PO ×2 (09:12→21:07)
[2024-02-21] MEDS: amLODIPine Besylate 10 MG TABLET PO (09:12)
[2024-02-21] MEDS: LORazepam 1 MG TABLET 2 MG PO ×2 (09:18→21:08)
--- NOTE | 2024-02-21 13:46 | P.PNPSI_ITS ---
Subjective Subjective Date of Service: 02/21/24 Reason For Visit: Schizoaffective disorder Subjective Notes: Section 7 and Section 8 Interim History: The nursing staff reported the patient had been less agitated, less labile he received Haldol and Ativan PO slept well last night. On interview the patient remains on one-to-one still confused and psychotic. We are going to continue with the same regimen and we are going to order blood work for morning. Mental Status Exam Mental Status Exam Patient Appearance: Appropriate Patient Orientation: Person and Situation Level of Consciousness: Awake and Appropriate Patient Behavior: Guarded and Passive Mood Description: Withdrawn Affect Description: Constricted Patient Cognition Impaired: Yes Ability to Follow Directions: Good Speech Pattern: Clear Hallucinations: Auditory Delusions: Paranoid Ideation and Ideas of Reference Thought Process: Distracted and Slowed Thinking Thought Content: positive for [place] and positive for Poverty of Content Judgement: Fair Diagnostics Vital Signs (24Hr): Vital Signs - 24 hr 02/20/24 20:00 02/21/24 08:00 Temperature 97.1 F 97.0 F Pulse Rate 86 75 Respiratory Rate 16 18 Blood Pressure 133/63 144/78 H Pulse Oximetry 99 100 Oxygen Delivery Method Room Air Room Air BMI result Body Mass Index 23.7 Labs 02/14/24 08:56 02/16/24 09:06 Medications Medications Current Medications Acetaminophen (Acetaminophen 325 Mg Tablet) 650 mg PO Q6H PRN PRN Reason: Headache/Pain Mild Scale (1-3) Last Admin: 01/17/24 23:53 Dose: 325 mg Al Hydroxide/Mg Hydroxide (Magnesium Hydrox/Alum Hydrox 30 Ml Oral.Susp) 30 ml PO Q6H PRN PRN Reason: Heartburn/Nausea Amlodipine Besylate (Amlodipine Besylate 10 Mg Tablet) 10 mg PO DAILY [facility]; Protocol Last Admin: 02/21/24 09:12 Dose: 10 mg Aspirin (Aspirin 81 Mg Tab.Chew) 81 mg PO DAILY [facility] Last Admin: 02/21/24 09:12 Dose: 81 mg Atorvastatin Calcium (Atorvastatin Calcium 40 Mg Tablet) 40 mg PO DAILY [facility] Last Admin: 02/21/24 09:29 Dose: Not Given Carbamazepine (Carbamazepine 200 Mg Tablet) 200 mg PO BID [facility] Last Admin: 02/21/24 09:12 Dose: 200 mg Clonidine (Clonidine 0.2 Mg Patch.Tdwk) 0.2 mg TRANSDERMA Fr@0900 [facility]; Protocol Last Admin: 02/17/24 14:20 Dose: 0.2 mg Ferrous Sulfate (Ferrous Sulfate 324 Mg Tablet.Dr) 324 mg PO BID [facility] Last Admin: 02/21/24 09:30 Dose: Not Given Haloperidol Lactate (Haloperidol Lactate 5 Mg/Ml Vial) 10 mg IM BID PRN PRN Reason: Refusal of Court PO Haldol Last Admin: 02/12/24 21:21 Dose: 10 mg Haloperidol Lactate (Haloperidol Lactate Oral Conc 10 Mg/5 Ml Oral.Conc) 5 mg PO Q6H PRN PRN Reason: Psychosis or severe agitation Last Admin: 02/20/24 13:10 Dose: 5 mg Haloperidol Lactate (Haloperidol Lactate Oral Conc 10 Mg/5 Ml Oral.Conc) 10 mg PO BID COUNT [facility]CLUD[facility] Last Admin: 02/21/24 09:12 Dose: 10 mg Lorazepam (Lorazepam 1 Mg Tablet) 2 mg PO Q6H PRN PRN Reason: agitation Last Admin: 02/21/24 09:18 Dose: 2 mg Magnesium Hydroxide (Milk Of Magnesia 30 Ml Oral.Susp) 30 ml PO DAILY PRN PRN Reason: Constipation Nicotine Polacrilex (Nicotine Polacrilex 2 Mg Gum) 2 mg BUCCAL Q2H PRN PRN Reason: Nicotine Cravings Trazodone HCl (Trazodone Hcl 50 Mg Tablet) 50 mg PO BEDTIME MRX1 PRN PRN Reason: Insomnia Last Admin: 02/18/24 22:53 Dose: 50 mg Valproic Acid (Valproic Acid Liquid 250 Mg/5 Ml Solution) 750 mg PO BID COUNT [facility]CLUDES [facility] Last Admin: 02/21/24 09:12 Dose: 750 mg Vitamin D (Cholecalciferol (Vitamin D3) 25 Mcg Tablet) 50 mcg PO DAILY COUNT [facility]CLUD[facility] Last Admin: 02/21/24 09:30 Dose: Not Given Allergies Allergies Allergy/AdvReac Type Severity Reaction Status Date / Time lithium Allergy Unknown Verified 01/13/24 18:08 Assessment & Plan Assessment & Plan (1) Schizoaffective disorder, bipolar type: Status: Acute Code(s): F25.0 - Schizoaffective disorder, bipolar type (2) Hypertension: Status: Acute Code(s): I10 - Essential (primary) hypertension (3) Diabetes mellitus: Status: Acute Code(s): E11.9 - Type 2 diabetes mellitus without complications Plan 68 yo from a retirement with chronic psychotic disorder, refusing medication , elevated bp and disorganized and agitated behavior requiring psychiatric hospitalization and treatment not competent to sign cv. 01/14 continue to follow - gave lambs warning today- and he says the paddock judge will be a she- still refusing medications and quite psychotic takes alot of redirection to settle him poor adls- 01/15- Refuses meds, refuses hospitalist consult-second day File for Section Seven consideration on 01/17. Provide care as he will allow. 01/16: Depakote 250 mg bid Haldol, Lorazepam, Benadryl prn Section 7 to be filed 01/17 Message left for guardian. 01/17: Section Seven filed. . Court scheduled 01/26/24 Pt continues to refuse medicaitons. He is in need of full assist with ADL's and is incontinent. Pt transferred to [facility] this afternoon. 01/19/2024 Patient pending civil commitment loud agitated would not engage in any conversation with this data analyst report writer non informational healing agitated verbally aggressive. Every attempt being made to get a copy of the patient's Servin order unclear why this has been so problematic. Encourage food and fluids 01/19 continue same treatment 01/21/24 Patient labile agitated intrusive close labs ordered in order to per to protect the community patient wandering into patient's rooms intrusive impulsive laying on another person's bed. Often hostile agitated posturing at times we are still pending copy of reported Servin order encourage p.o. compliance 01/22/2024 Patient did require physical hold escort him out of a room that he jumped in other patient's room and on their bed while there were in it. There was no physical harm and the patient did leave the room his markedly impulsive with poor judgment remains on close observation has intermittently taken Haldol liquid pending civil commitment treatment plan there is a question of Servin order 01/22 The patient had been more agitated. We review his Servin order and we are increasing the Abilify up to 15 mg p.o. daily and adding Haldol p.r.n. since it is in his role years order. We needed to give him some p.r.n. at 14:00. 01/23 The patient is grossly psychotic disrobing and sexually disinhibited we are starting Haldol 2 mg p.o. t.i.d. to target psychosis as per court order treatment over objection order. 01/24 The patient remains very agitated and angry disruptive so we are increasing the Haldol from 2 mg to 5 mg p.o. t.i.d. with a backup IM if the patient refused as per court order. 01/25 we have increased the Haldol but still he is very psychotic and restless. Today he refused his blood work. He needed to be physically held twice. 01/26 the patient remains agitated at times but his last IM backup was yesterday. We are going to increase Abilify up to 20 mg daily to target mood lability and psychosis. 01/29/2024: Increase frequency of prn doses from tid to prn q 6mrs. Poor insight and unable to care for self 02/08 pt has not take any of mood stabilizer. continues to have poor sleep, intrusive and combative requiring IM medications, increase haldol 10mg po TID, back up IM. Will add ativan 1mg po TID, also back up IM. Labs show elevated CK 2300, BUN 20, Cr 1.80, unclear baseline Cr as he does have CKD. Discussed with hospitalist Dr. Gama, to give IV fluids and monitor labs tomorrow. LFTs also elevated suspect this is secondary to elevation in CK and should trend down as CK goes down. 02/09 still agitated, creatinine and CPK slightly high as yesterday, he removed his IV line there is no big difference with IV hydration. We are changing his community role years to have more options since it is not working Abilify and Haldol 02/10 3 chemical restraints yesterday. appears more combative, and somewhat more confused. Will decrease amount of benzo and antihistamine given to him as it seems to be backfiring. did discuss with ICU attending, Dr. Whiteside possibility of transferring there but they would like us to try IV depakote and exhaust all resources prior to considering transfer. Pt did take depakote springkle 1000mg with apple sauce with much encourage. 02/11 continue tx. 02/12 continue same treatment 01/14 continue with Abilify and other court order medications, we are Namenda and the court order. 02/14 Team report improvement today with pt having greater comfort and less agitation. [id number] the staff reported that the patient had been less violent in the last 24 hours 02/16 continue tx. will check depakote and ammonia on 02/17 in AM. 02/17 continue regime and plan of care Plan 1. Continue with antipsychotics as per role years order. 2. We already did the amendment of the role years to add chlorpromazine that it has been more effective than Haldol. 3. Blood work for morning since his CPK was high a few days ago and it was lowering. We ordering levels of Tegretol and Depakote for . Reason for continued inpatient stay Substantial Risk for: inability to function, rapid decompensation and med/psych decompensation Time Spent With Patient Time: Total time managing care of this patient today __20__ minutes.
[2024-02-21] MEDS: traZODone HCL 50 MG TABLET PO (21:08)
[2024-02-22 08:23] VITALS: RESP 16
[2024-02-22] MEDS: Valproic Acid Liquid 250 MG/5 ML SOLUTION 750 MG PO ×2 (09:23→21:10)
[2024-02-22] MEDS: carBAMazepine 200 MG TABLET PO ×2 (09:23→21:10)
[2024-02-22] MEDS: Haloperidol Lactate Oral Conc 10 MG/5 ML ORAL.CONC PO ×2 (09:23→21:10)
[2024-02-22] MEDS: LORazepam 1 MG TABLET 2 MG PO ×2 (14:10→21:11)
[2024-02-22] MEDS: Haloperidol Lactate Oral Conc 10 MG/5 ML ORAL.CONC 5 MG PO ×2 (14:10→23:59)
--- NOTE | 2024-02-22 17:01 | HO.PSYCHPN ---
Subjective Subjective Date of Service: 02/22/24 Reason For Visit: Schizoaffective disorder Interim History: met with patient; discussed with team pt sitting in chair, singing out loud, laughing at times. taking Meds including Prns that were offered. Intermittently incontinent. Mental Status Exam Mental Status Exam Narrative: Appearance: wearing casual cloths; fair hygiene Behavior: can be calm; remains somewhat guarded, intermittently irritable, intrusive; loudly singing Psychomotor: intermittently agitated Speech: mostly clear, normal rate/rhythm/volume, spontaneous TP: mostly linear TC:various things Mood: expansive Affect: labile SI: denies HI: denies VH/AH: internally preoccupied Delusions: intermittent sexualized delusions Insight/judgment: impaired x 2. memory/cog: alert, not oriented to situation Diagnostics Vital Signs (24Hr): Vital Signs - 24 hr 02/22/24 08:23 Respiratory Rate 16 BMI result Body Mass Index 23.7 Labs 02/14/24 08:56 02/16/24 09:06 Medications Medications Current Medications Acetaminophen (Acetaminophen 325 Mg Tablet) 650 mg PO Q6H PRN PRN Reason: Headache/Pain Mild Scale (1-3) Last Admin: 01/17/24 23:53 Dose: 325 mg Al Hydroxide/Mg Hydroxide (Magnesium Hydrox/Alum Hydrox 30 Ml Oral.Susp) 30 ml PO Q6H PRN PRN Reason: Heartburn/Nausea Amlodipine Besylate (Amlodipine Besylate 10 Mg Tablet) 10 mg PO DAILY [facility]; Protocol Last Admin: 02/22/24 14:25 Dose: Not Given Aspirin (Aspirin 81 Mg Tab.Chew) 81 mg PO DAILY [facility] Last Admin: 02/22/24 14:26 Dose: Not Given Atorvastatin Calcium (Atorvastatin Calcium 40 Mg Tablet) 40 mg PO DAILY [facility] Last Admin: 02/22/24 14:26 Dose: Not Given Carbamazepine (Carbamazepine 200 Mg Tablet) 200 mg PO BID [facility] Last Admin: 02/22/24 09:23 Dose: 200 mg Clonidine (Clonidine 0.2 Mg Patch.Tdwk) 0.2 mg TRANSDERMA Fr@0900 [facility]; Protocol Last Admin: 02/17/24 14:20 Dose: 0.2 mg Ferrous Sulfate (Ferrous Sulfate 324 Mg Tablet.) 324 mg PO BID [facility] Last Admin: 02/22/24 14:26 Dose: Not Given Haloperidol Lactate (Haloperidol Lactate 5 Mg/Ml Vial) 10 mg IM BID PRN PRN Reason: Refusal of Court PO Haldol Last Admin: 02/12/24 21:21 Dose: 10 mg Haloperidol Lactate (Haloperidol Lactate Oral Conc 10 Mg/5 Ml Oral.Conc) 5 mg PO Q6H PRN PRN Reason: Psychosis or severe agitation Last Admin: 02/22/24 14:10 Dose: 5 mg Haloperidol Lactate (Haloperidol Lactate Oral Conc 10 Mg/5 Ml Oral.Conc) 10 mg PO BID [facility] Last Admin: 02/22/24 09:23 Dose: 10 mg Lorazepam (Lorazepam 1 Mg Tablet) 2 mg PO Q6H PRN PRN Reason: agitation Last Admin: 02/22/24 14:10 Dose: 2 mg Magnesium Hydroxide (Milk Of Magnesia 30 Ml Oral.Susp) 30 ml PO DAILY PRN PRN Reason: Constipation Nicotine Polacrilex (Nicotine Polacrilex 2 Mg Gum) 2 mg BUCCAL Q2H PRN PRN Reason: Nicotine Cravings Trazodone HCl (Trazodone Hcl 50 Mg Tablet) 50 mg PO BEDTIME MRX1 PRN PRN Reason: Insomnia Last Admin: 02/21/24 21:08 Dose: 50 mg Valproic Acid (Valproic Acid Liquid 250 Mg/5 Ml Solution) 750 mg PO BID [facility] Last Admin: 02/22/24 09:23 Dose: 750 mg Vitamin D (Cholecalciferol (Vitamin D3) 25 Mcg Tablet) 50 mcg PO DAILY [facility] Last Admin: 02/22/24 14:26 Dose: Not Given Allergies Allergies Allergy/AdvReac Type Severity Reaction Status Date / Time lithium Allergy Unknown Verified 01/13/24 18:08 Assessment & Plan Assessment & Plan (1) Schizoaffective disorder, bipolar type: Status: Acute Code(s): F25.0 - Schizoaffective disorder, bipolar type (2) Hypertension: Status: Acute Code(s): I10 - Essential (primary) hypertension (3) Diabetes mellitus: Status: Acute Code(s): E11.9 - Type 2 diabetes mellitus without complications Plan 68 yo from a [facility] with chronic psychotic disorder, refusing medication , elevated bp and disorganized and agitated behavior requiring psychiatric hospitalization and treatment not competent to sign cv. 01/14 continue to follow - gave lambs warning today- and he says the product safety technical assistant will be a she- still refusing medications and quite psychotic takes alot of redirection to settle him poor adls- 01/15- Refuses meds, refuses hospitalist consult-second day File for Section Seven consideration on 01/17. Provide care as he will allow. 01/16: Depakote 250 mg bid Haldol, Lorazepam, Benadryl prn Section 7 to be filed 01/17 Message left for guardian. 01/17: Section Seven filed. . Court scheduled 01/26/24 Pt continues to refuse medicaitons. He is in need of full assist with ADL's and is incontinent. Pt transferred to [facility] this afternoon. 01/19/2024 Patient pending civil commitment loud agitated would not engage in any conversation with this proposal lead writer non informational healing agitated verbally aggressive. Every attempt being made to get a copy of the patient's Servin order unclear why this has been so problematic. Encourage food and fluids 01/19 continue same treatment 01/21/24 Patient labile agitated intrusive close labs ordered in order to per to protect the community patient wandering into patient's rooms intrusive impulsive laying on another person's bed. Often hostile agitated posturing at times we are still pending copy of reported Servin order encourage p.o. compliance 01/22/2024 Patient did require physical hold escort him out of a room that he jumped in other patient's room and on their bed while there were in it. There was no physical harm and the patient did leave the room his markedly impulsive with poor judgment remains on close observation has intermittently taken Haldol liquid pending civil commitment treatment plan there is a question of Servin order 01/22 The patient had been more agitated. We review his Servin order and we are increasing the Abilify up to 15 mg p.o. daily and adding Haldol p.r.n. since it is in his role years order. We needed to give him some p.r.n. at 14:00. 01/23 The patient is grossly psychotic disrobing and sexually disinhibited we are starting Haldol 2 mg p.o. t.i.d. to target psychosis as per court order treatment over objection order. 01/24 The patient remains very agitated and angry disruptive so we are increasing the Haldol from 2 mg to 5 mg p.o. t.i.d. with a backup IM if the patient refused as per court order. 01/25 we have increased the Haldol but still he is very psychotic and restless. Today he refused his blood work. He needed to be physically held twice. 01/26 the patient remains agitated at times but his last IM backup was yesterday. We are going to increase Abilify up to 20 mg daily to target mood lability and psychosis. 01/29/2024: Increase frequency of prn doses from tid to prn q 6mrs. Poor insight and unable to care for self 02/08 pt has not take any of mood stabilizer. continues to have poor sleep, intrusive and combative requiring IM medications, increase haldol 10mg po TID, back up IM. Will add ativan 1mg po TID, also back up IM. Labs show elevated CK 2300, BUN 20, Cr 1.80, unclear baseline Cr as he does have CKD. Discussed with hospitalist Dr. aGma, to give IV fluids and monitor labs tomorrow. LFTs also elevated suspect this is secondary to elevation in CK and should trend down as CK goes down. 02/09 still agitated, creatinine and CPK slightly high as yesterday, he removed his IV line there is no big difference with IV hydration. We are changing his community role years to have more options since it is not working Abilify and Haldol 02/10 3 chemical restraints yesterday. appears more combative, and somewhat more confused. Will decrease amount of benzo and antihistamine given to him as it seems to be backfiring. did discuss with ICU attending, Dr. Whiteside possibility of transferring there but they would like us to try IV depakote and exhaust all resources prior to considering transfer. Pt did take depakote springkle 1000mg with apple sauce with much encourage. 02/11 continue tx. 02/12 continue same treatment 01/14 continue with Abilify and other court order medications, we are Namenda and the court order. 02/14 Team report improvement today with pt having greater comfort and less agitation. 1126 the staff reported that the patient had been less violent in the last 24 hours 02/16 continue tx. will check depakote and ammonia on 02/17 in AM. 02/17 continue regime and plan of care Reason for continued inpatient stay Substantial Risk for: inability to function Time Spent With Patient Time: Total time managing care of this patient today ____ minutes.
[2024-02-22 19:49] VITALS: BP 127/60; PULSE 74; TEMP 36.4; O2SAT 99
[2024-02-22] MEDS: traZODone HCL 50 MG TABLET PO ×2 (21:10→23:59)
[2024-02-23 07:42] VITALS: BP 139/67; PULSE 83; RESP 18; TEMP 36.3; O2SAT 100
[2024-02-23] MEDS: Atorvastatin Calcium 40 MG TABLET PO (07:43)
[2024-02-23] MEDS: Valproic Acid Liquid 250 MG/5 ML SOLUTION 750 MG PO (07:43)
[2024-02-23] MEDS: Haloperidol Lactate Oral Conc 10 MG/5 ML ORAL.CONC PO ×2 (07:43→20:15)
[2024-02-23] MEDS: Cholecalciferol (Vitamin D3) 25 MCG TABLET 50 MCG PO (07:43)
[2024-02-23] MEDS: Aspirin 81 MG TAB.CHEW PO (07:43)
[2024-02-23] MEDS: Ferrous Sulfate 324 MG TABLET.DR PO (07:44)
[2024-02-23] MEDS: carBAMazepine 200 MG TABLET PO (07:44)
--- NOTE | 2024-02-23 11:48 | HO.PSYCHPN ---
Subjective Subjective Date of Service: 02/23/24 Reason For Visit: Schizoaffective disorder Subjective Notes: Section 7 and Section 8 Interim History: The nursing staff reported the patient refused his medications in the morning but later on he took it with a lot of encouragement he slept 8 hours. The patient had been less aggressive, he refused his blood work today in the morning. The marriage and family social worker reported that he will have a hearing for March 05. On interview the patient is still grossly psychotic. Mental Status Exam Mental Status Exam Patient Appearance: Appropriate Patient Orientation: Person and Situation Level of Consciousness: Awake and Appropriate Patient Behavior: Guarded and Passive Mood Description: Withdrawn Affect Description: Blunted Patient Cognition Impaired: Yes Ability to Follow Directions: Good Speech Pattern: Clear Hallucinations: None Delusions: Paranoid Ideation and Ideas of Reference Thought Process: Slowed Thinking Thought Content: positive for [place] and positive for Poverty of Content Judgement: Poor Diagnostics Vital Signs (24Hr): Vital Signs - 24 hr 02/22/24 19:49 02/23/24 07:42 Temperature 97.5 F 97.4 F Pulse Rate 74 83 Respiratory Rate 18 Blood Pressure 127/60 139/67 Pulse Oximetry 99 100 Oxygen Delivery Method Room Air Room Air BMI result Body Mass Index 23.7 Labs 02/14/24 08:56 02/16/24 09:06 Medications Medications Current Medications Acetaminophen (Acetaminophen 325 Mg Tablet) 650 mg PO Q6H PRN PRN Reason: Headache/Pain Mild Scale (1-3) Last Admin: 01/17/24 23:53 Dose: 325 mg Al Hydroxide/Mg Hydroxide (Magnesium Hydrox/Alum Hydrox 30 Ml Oral.Susp) 30 ml PO Q6H PRN PRN Reason: Heartburn/Nausea Amlodipine Besylate (Amlodipine Besylate 10 Mg Tablet) 10 mg PO DAILY [facility]; Protocol Last Admin: 02/23/24 07:44 Dose: 10 mg Aspirin (Aspirin 81 Mg Tab.Chew) 81 mg PO DAILY [facility] Last Admin: 02/23/24 07:43 Dose: 81 mg Atorvastatin Calcium (Atorvastatin Calcium 40 Mg Tablet) 40 mg PO DAILY [facility] Last Admin: 02/23/24 07:43 Dose: 40 mg Carbamazepine (Carbamazepine 200 Mg Tablet) 200 mg PO BID [facility] Last Admin: 02/23/24 07:44 Dose: 200 mg Clonidine (Clonidine 0.2 Mg Patch.Tdwk) 0.2 mg TRANSDERMA Fr@0900 [facility]; Protocol Last Admin: 12/27/24 14:20 Dose: 0.2 mg Ferrous Sulfate (Ferrous Sulfate 324 Mg Tablet.Dr) 324 mg PO BID [facility] Last Admin: 02/23/24 07:44 Dose: 324 mg Haloperidol Lactate (Haloperidol Lactate 5 Mg/Ml Vial) 10 mg IM BID PRN PRN Reason: Refusal of Court PO Haldol Last Admin: 02/12/24 21:21 Dose: 10 mg Haloperidol Lactate (Haloperidol Lactate Oral Conc 10 Mg/5 Ml Oral.Conc) 5 mg PO Q6H PRN PRN Reason: Psychosis or severe agitation Last Admin: 02/22/24 23:59 Dose: 5 mg Haloperidol Lactate (Haloperidol Lactate Oral Conc 10 Mg/5 Ml Oral.Conc) 10 mg PO BID [facility] Last Admin: 02/23/24 07:43 Dose: 10 mg Lorazepam (Lorazepam 1 Mg Tablet) 2 mg PO Q6H PRN PRN Reason: agitation Last Admin: 02/22/24 21:11 Dose: 2 mg Magnesium Hydroxide (Milk Of Magnesia 30 Ml Oral.Susp) 30 ml PO DAILY PRN PRN Reason: Constipation Nicotine Polacrilex (Nicotine Polacrilex 2 Mg Gum) 2 mg BUCCAL Q2H PRN PRN Reason: Nicotine Cravings Trazodone HCl (Trazodone Hcl 50 Mg Tablet) 50 mg PO BEDTIME MRX1 PRN PRN Reason: Insomnia Last Admin: 02/22/24 23:59 Dose: 50 mg Valproic Acid (Valproic Acid Liquid 250 Mg/5 Ml Solution) 750 mg PO BID [facility] Last Admin: 02/23/24 07:43 Dose: 750 mg Vitamin D (Cholecalciferol (Vitamin D3) 25 Mcg Tablet) 50 mcg PO DAILY [facility] Last Admin: 02/23/24 07:43 Dose: 50 mcg Allergies Allergies Allergy/AdvReac Type Severity Reaction Status Date / Time lithium Allergy Unknown Verified 01/13/24 18:08 Assessment & Plan Assessment & Plan (1) Schizoaffective disorder, bipolar type: Status: Acute Code(s): F25.0 - Schizoaffective disorder, bipolar type (2) Hypertension: Status: Acute Code(s): I10 - Essential (primary) hypertension (3) Diabetes mellitus: Status: Acute Code(s): E11.9 - Type 2 diabetes mellitus without complications Plan 68 yo from a long-term with chronic psychotic disorder, refusing medication , elevated bp and disorganized and agitated behavior requiring psychiatric hospitalization and treatment not competent to sign cv. 01/14 continue to follow - gave lambs warning today- and he says the mattress maker will be a she- still refusing medications and quite psychotic takes alot of redirection to settle him poor adls- 01/15- Refuses meds, refuses hospitalist consult-second day File for Section Seven consideration on 01/17. Provide care as he will allow. 01/16: Depakote 250 mg bid Haldol, Lorazepam, Benadryl prn Section 7 to be filed 01/17 Message left for guardian. 01/17: Section Seven filed. . Court scheduled 01/26/24 Pt continues to refuse medicaitons. He is in need of full assist with ADL's and is incontinent. Pt transferred to [facility] this afternoon. 01/19/2024 Patient pending civil commitment loud agitated would not engage in any conversation with this data analyst report writer non informational healing agitated verbally aggressive. Every attempt being made to get a copy of the patient's Servin order unclear why this has been so problematic. Encourage food and fluids 01/19 continue same treatment 01/21/24 Patient labile agitated intrusive close labs ordered in order to per to protect the community patient wandering into patient's rooms intrusive impulsive laying on another person's bed. Often hostile agitated posturing at times we are still pending copy of reported Servin order encourage p.o. compliance 01/22/2024 Patient did require physical hold escort him out of a room that he jumped in other patient's room and on their bed while there were in it. There was no physical harm and the patient did leave the room his markedly impulsive with poor judgment remains on close observation has intermittently taken Haldol liquid pending civil commitment treatment plan there is a question of Servin order 01/22 The patient had been more agitated. We review his Servin order and we are increasing the Abilify up to 15 mg p.o. daily and adding Haldol p.r.n. since it is in his role years order. We needed to give him some p.r.n. at 14:00. 01/23 The patient is grossly psychotic disrobing and sexually disinhibited we are starting Haldol 2 mg p.o. t.i.d. to target psychosis as per court order treatment over objection order. 01/24 The patient remains very agitated and angry disruptive so we are increasing the Haldol from 2 mg to 5 mg p.o. t.i.d. with a backup IM if the patient refused as per court order. 01/25 we have increased the Haldol but still he is very psychotic and restless. Today he refused his blood work. He needed to be physically held twice. 01/26 the patient remains agitated at times but his last IM backup was yesterday. We are going to increase Abilify up to 20 mg daily to target mood lability and psychosis. 01/29/2024: Increase frequency of prn doses from tid to prn q 6mrs. Poor insight and unable to care for self 02/08 pt has not take any of mood stabilizer. continues to have poor sleep, intrusive and combative requiring IM medications, increase haldol 10mg po TID, back up IM. Will add ativan 1mg po TID, also back up IM. Labs show elevated CK 2300, BUN 20, Cr 1.80, unclear baseline Cr as he does have CKD. Discussed with hospitalist Dr. Gama, to give IV fluids and monitor labs tomorrow. LFTs also elevated suspect this is secondary to elevation in CK and should trend down as CK goes down. 02/09 still agitated, creatinine and CPK slightly high as yesterday, he removed his IV line there is no big difference with IV hydration. We are changing his community role years to have more options since it is not working Abilify and Haldol 02/10 3 chemical restraints yesterday. appears more combative, and somewhat more confused. Will decrease amount of benzo and antihistamine given to him as it seems to be backfiring. did discuss with ICU attending, Dr. Whiteside possibility of transferring there but they would like us to try IV depakote and exhaust all resources prior to considering transfer. Pt did take depakote springkle 1000mg with apple sauce with much encourage. 02/11 continue tx. 02/12 continue same treatment 01/14 continue with Abilify and other court order medications, we are Namenda and the court order. 02/14 Team report improvement today with pt having greater comfort and less agitation. 1126 the staff reported that the patient had been less violent in the last 24 hours 02/16 continue tx. will check depakote and ammonia on 02/17 in AM. 02/17 continue regime and plan of care Plan 1. Continue with Abilify and Haldol as per court order. 2. Blood work ordered today but the patient refused. 3. The patient is still less aggressive but still psychotic will follow closely. Reason for continued inpatient stay Substantial Risk for: inability to function, rapid decompensation and med/psych decompensation Time Spent With Patient Time: Total time managing care of this patient today __20__ minutes.
[2024-02-23 12:29] VITALS: BMI 25.1
[2024-02-23 20:00] VITALS: BP 140/88; PULSE 73; RESP 18; TEMP 36.4; O2SAT 100
[2024-02-24 00:03] VITALS: BP 145/73; PULSE 62; RESP 16; TEMP 36.6; O2SAT 96
--- NOTE | 2024-02-24 00:04 | PC.NURSE ---
Patient with much difficulty was able to take HS Haldol, unable to take remaining meds appears sedated, allowed to remain sleep, visited few more time appeared sedated, vitals assessed at midnight and were stable at baseline continues to appears sedated, rest of HS meds documented as not given, patient is on 1:1 for safety check, no behavior and safety concerns, will continue to monitor
[2024-02-24] MEDS: Valproic Acid Liquid 250 MG/5 ML SOLUTION 750 MG PO ×2 (07:33→20:04)
[2024-02-24] MEDS: Haloperidol Lactate Oral Conc 10 MG/5 ML ORAL.CONC 5 MG PO ×2 (07:34→11:21)
[2024-02-24] MEDS: Haloperidol Lactate Oral Conc 10 MG/5 ML ORAL.CONC PO ×2 (07:34→20:04)
[2024-02-24] MEDS: carBAMazepine 200 MG TABLET PO ×2 (07:35→20:04)
[2024-02-24] MEDS: Ferrous Sulfate 324 MG TABLET.DR PO (07:35)
[2024-02-24] MEDS: chlorproMAZINE HCl 25 MG/ML AMPUL 100 MG IM (07:54)
[2024-02-24] MEDS: Haloperidol Lactate 5 MG/ML VIAL 10 MG IM (08:28)
--- NOTE | 2024-02-24 08:44 | HO.EVEPSY_ITS ---
Documented by User: Rebecca Abraham NP 02/24/24 08:54 Event Note Date of Service: 02/24/24 Psych Restraint Event Note: This magazine writer received tiger text message at around 7:47am reporting pt attempting to grab staff, not able to be redirected, insisting on grabbing female staff. Ordered Thorazine 100mg IM. Pt was later examined face to face by this magazine writer at around 8:15am. He did not show any signs of respiratory distress. He was ambulating without any issues. continues on to due to ongoing intrusive behaviors. He did not allow vital signs after restraint. Time Spent With Patient Time: Total time managing care of this patient today ____ minutes. Documented by User: Shay Long MD 02/25/24 22:36 Event Note Date of Service: 02/25/24
[2024-02-24] MEDS: LORazepam 1 MG TABLET PO ×2 (11:21→20:04)
--- NOTE | 2024-02-24 13:39 | HO.PSYCHPN ---
Subjective Subjective Date of Service: 02/24/24 Reason For Visit: Schizoaffective disorder Subjective Notes: Section 7 and Section 8 Interim History: The nursing staff reported the patient did very well yesterday but today in the morning he was agitated and needed to be chemically and physically restrained for IM. He remains grossly disorganized. On interview the patient denies new symptoms looks confused. Mental Status Exam Mental Status Exam Patient Appearance: Appropriate Patient Orientation: Person Level of Consciousness: Awake and Sedated Patient Behavior: Guarded and Passive Mood Description: Withdrawn Affect Description: Labile Patient Cognition Impaired: Yes Ability to Follow Directions: Good Speech Pattern: Impoverished and Monotone Hallucinations: Auditory Delusions: Paranoid Ideation and Ideas of Reference Thought Process: Illogical and Distracted Thought Content: positive for [place] and positive for Poverty of Content Judgement: Poor Diagnostics Vital Signs (24Hr): Vital Signs - 24 hr 02/23/24 20:00 02/24/24 00:03 Temperature 97.6 F 97.8 F Pulse Rate 73 62 Respiratory Rate 18 16 Blood Pressure 140/88 H 145/73 H Pulse Oximetry 100 96 Oxygen Delivery Method Room Air Room Air BMI result Body Mass Index 25.1 Labs 02/14/24 08:56 02/16/24 09:06 Medications Medications Current Medications Acetaminophen (Acetaminophen 325 Mg Tablet) 650 mg PO Q6H PRN PRN Reason: Headache/Pain Mild Scale (1-3) Last Admin: 01/17/24 23:53 Dose: 325 mg Al Hydroxide/Mg Hydroxide (Magnesium Hydrox/Alum Hydrox 30 Ml Oral.Susp) 30 ml PO Q6H PRN PRN Reason: Heartburn/Nausea Amlodipine Besylate (Amlodipine Besylate 10 Mg Tablet) 10 mg PO DAILY [facility]; Protocol Last Admin: 02/24/24 07:36 Dose: Not Given Aspirin (Aspirin 81 Mg Tab.Chew) 81 mg PO DAILY [facility] Last Admin: 02/24/24 10:14 Dose: Not Given Atorvastatin Calcium (Atorvastatin Calcium 40 Mg Tablet) 40 mg PO DAILY [facility] Last Admin: 02/24/24 10:14 Dose: Not Given Carbamazepine (Carbamazepine 200 Mg Tablet) 200 mg PO BID [facility] Last Admin: 02/24/24 08:25 Dose: Not Given Clonidine (Clonidine 0.2 Mg Patch.Tdwk) 0.2 mg TRANSDERMA Fr@0900 [facility]; Protocol Last Admin: 02/17/24 14:20 Dose: 0.2 mg Ferrous Sulfate (Ferrous Sulfate 324 Mg Tablet.Dr) 324 mg PO BID [facility] Last Admin: 02/24/24 08:25 Dose: Not Given Haloperidol Lactate (Haloperidol Lactate 5 Mg/Ml Vial) 10 mg IM BID PRN PRN Reason: Refusal of Court PO Haldol Last Admin: 02/24/24 08:28 Dose: 10 mg Haloperidol Lactate (Haloperidol Lactate Oral Conc 10 Mg/5 Ml Oral.Conc) 5 mg PO Q6H PRN PRN Reason: Psychosis or severe agitation Last Admin: 02/24/24 11:21 Dose: 5 mg Haloperidol Lactate (Haloperidol Lactate Oral Conc 10 Mg/5 Ml Oral.Conc) 10 mg PO BID [facility] Last Admin: 02/24/24 07:34 Dose: 10 mg Lorazepam (Lorazepam 1 Mg Tablet) 1 mg PO Q6H PRN PRN Reason: agitation Last Admin: 02/24/24 11:21 Dose: 1 mg Magnesium Hydroxide (Milk Of Magnesia 30 Ml Oral.Susp) 30 ml PO DAILY PRN PRN Reason: Constipation Nicotine Polacrilex (Nicotine Polacrilex 2 Mg Gum) 2 mg BUCCAL Q2H PRN PRN Reason: Nicotine Cravings Trazodone HCl (Trazodone Hcl 50 Mg Tablet) 50 mg PO BEDTIME MRX1 PRN PRN Reason: Insomnia Last Admin: 02/22/24 23:59 Dose: 50 mg Valproic Acid (Valproic Acid Liquid 250 Mg/5 Ml Solution) 750 mg PO BID [facility] Last Admin: 02/24/24 07:33 Dose: 750 mg Vitamin D (Cholecalciferol (Vitamin D3) 25 Mcg Tablet) 50 mcg PO DAILY [facility] Last Admin: 02/24/24 10:14 Dose: Not Given Allergies Allergies Allergy/AdvReac Type Severity Reaction Status Date / Time lithium Allergy Unknown Verified 01/13/24 18:08 Assessment & Plan Assessment & Plan (1) Schizoaffective disorder, bipolar type: Status: Acute Code(s): F25.0 - Schizoaffective disorder, bipolar type (2) Hypertension: Status: Acute Code(s): I10 - Essential (primary) hypertension (3) Diabetes mellitus: Status: Acute Code(s): E11.9 - Type 2 diabetes mellitus without complications Plan 68 [facility] from a [facility] with chronic psychotic disorder, refusing medication , elevated bp and disorganized and agitated behavior requiring psychiatric hospitalization and treatment not competent to sign cv. 01/14 continue to follow - gave lambs warning today- and he says the hand iii cutter will be a she- still refusing medications and quite psychotic takes alot of redirection to settle him poor adls- 01/15- Refuses meds, refuses hospitalist consult-second day File for Section Seven consideration on 01/17. Provide care as he will allow. 01/16: Depakote 250 mg bid Haldol, Lorazepam, Benadryl prn Section 7 to be filed 01/17 Message left for guardian. 01/17: Section Seven filed. . Court scheduled 01/26/24 Pt continues to refuse medicaitons. He is in need of full assist with ADL's and is incontinent. Pt transferred to [facility] this afternoon. 01/19/2024 Patient pending civil commitment loud agitated would not engage in any conversation with this keno writer non informational healing agitated verbally aggressive. Every attempt being made to get a copy of the patient's Servin order unclear why this has been so problematic. Encourage food and fluids 01/19 continue same treatment 01/21/24 Patient labile agitated intrusive close labs ordered in order to per to protect the community patient wandering into patient's rooms intrusive impulsive laying on another person's bed. Often hostile agitated posturing at times we are still pending copy of reported Servin order encourage p.o. compliance 01/22/2024 Patient did require physical hold escort him out of a room that he jumped in other patient's room and on their bed while there were in it. There was no physical harm and the patient did leave the room his markedly impulsive with poor judgment remains on close observation has intermittently taken Haldol liquid pending civil commitment treatment plan there is a question of Servin order 01/22 The patient had been more agitated. We review his Servin order and we are increasing the Abilify up to 15 mg p.o. daily and adding Haldol p.r.n. since it is in his role years order. We needed to give him some p.r.n. at 14:00. 01/23 The patient is grossly psychotic disrobing and sexually disinhibited we are starting Haldol 2 mg p.o. t.i.d. to target psychosis as per court order treatment over objection order. 01/24 The patient remains very agitated and angry disruptive so we are increasing the Haldol from 2 mg to 5 mg p.o. t.i.d. with a backup IM if the patient refused as per court order. 01/25 we have increased the Haldol but still he is very psychotic and restless. Today he refused his blood work. He needed to be physically held twice. 01/26 the patient remains agitated at times but his last IM backup was yesterday. We are going to increase Abilify up to 20 mg daily to target mood lability and psychosis. 01/29/2024: Increase frequency of prn doses from tid to prn q 6mrs. Poor insight and unable to care for self 02/08 pt has not take any of mood stabilizer. continues to have poor sleep, intrusive and combative requiring IM medications, increase haldol 10mg po TID, back up IM. Will add ativan 1mg po TID, also back up IM. Labs show elevated CK 2300, BUN 20, Cr 1.80, unclear baseline Cr as he does have CKD. Discussed with hospitalist Dr. Gama, to give IV fluids and monitor labs tomorrow. LFTs also elevated suspect this is secondary to elevation in CK and should trend down as CK goes down. 02/09 still agitated, creatinine and CPK slightly high as yesterday, he removed his IV line there is no big difference with IV hydration. We are changing his community role years to have more options since it is not working Abilify and Haldol 02/10 3 chemical restraints yesterday. appears more combative, and somewhat more confused. Will decrease amount of benzo and antihistamine given to him as it seems to be backfiring. did discuss with ICU attending, Dr. Whiteside possibility of transferring there but they would like us to try IV depakote and exhaust all resources prior to considering transfer. Pt did take depakote springkle 1000mg with apple sauce with much encourage. 02/11 continue tx. 02/12 continue same treatment 01/14 continue with Abilify and other court order medications, we are Namenda and the court order. 02/14 Team report improvement today with pt having greater comfort and less agitation. [id number] the staff reported that the patient had been less violent in the last 24 hours 02/16 continue tx. will check depakote and ammonia on 02/17 in AM. 02/17 continue regime and plan of care Plan 1. Continue with Abilify and Haldol as per court order. 2. Blood work ordered today but the patient refused. 3. The patient is still less aggressive but still psychotic will follow closely. Today on February 23 we needed to chemically restrain him in the morning. Reason for continued inpatient stay Substantial Risk for: inability to function, rapid decompensation and med/psych decompensation Time Spent With Patient Time: Total time managing care of this patient today _20___ minutes.
--- NOTE | 2024-02-24 14:59 | PC.NURSE ---
Pt. on 1:1 for disorganized intrusive behavior. Pt. awake at 0700 and being assisted with morning ADLs. At 07:30 pt. following female staff closely yelling, You have to go home right now! Pt. became increasingly intrusive to staff member, chasing her and looming over her with arms raised. Pt. offered quiet time in sensory room or in room, offered music, offered scheduled and PRN medications, but declined. Code assist called and pt. physically escorted away from staff member and to room with physical hold lasting from 07:46-07:47. Continued to decline PO medications. Providers notified and gave T.O. for med and physical restraint. Pt. physically held from 07:54 to 07:[address] medication as well as med restraint. Female staff member was switched to another unit for safety. Pt. remained moderately agitated. Guardian Ledy Zhao updated via voicemail.
[2024-02-24] MEDS: cloNIDine 0.2 MG PATCH.TDWK TRANSDERMA (18:24)
[2024-02-24 20:00] VITALS: BP 156/76; PULSE 98; RESP 17; TEMP 36.7; O2SAT 99
[2024-02-25] MEDS: Valproic Acid Liquid 250 MG/5 ML SOLUTION 750 MG PO ×2 (07:47→21:06)
[2024-02-25] MEDS: Haloperidol Lactate Oral Conc 10 MG/5 ML ORAL.CONC PO ×2 (07:48→20:59)
--- NOTE | 2024-02-25 09:41 | HO.PSYCHPN ---
Subjective Subjective Date of Service: 02/25/24 Reason For Visit: Schizoaffective disorder Subjective Notes: Servin Order and Section 7 Interim History: patient is mostly sleeping today. Needed IM medication yesterday in the context of Servin order. Not engaging today. Medication Compliance: Yes ( As per Gareth) Side effects from medications: No Attending Groups: No Review of Systems Acute medical concerns: No Review of Systems Review of Systems Yes Unobtainable due to mental status Mental Status Exam Mental Status Exam Patient Appearance: Appropriate Patient Orientation: Person Level of Consciousness: Sedated Patient Behavior: Guarded Behavior Comments: Verbally aggressive unable to engage in a back and forth conversation yelling about chicken wings Mood Description: Withdrawn Patient Cognition Impaired: Yes Ability to Follow Directions: Good Diagnostics Vital Signs (24Hr): Vital Signs - 24 hr 02/24/24 20:00 Temperature 98.1 F Pulse Rate 98 Respiratory Rate 17 Blood Pressure 156/76 H Pulse Oximetry 99 Oxygen Delivery Method Room Air BMI result Body Mass Index 25.1 Labs 02/14/24 08:56 02/16/24 09:06 Medications Medications Current Medications Acetaminophen (Acetaminophen 325 Mg Tablet) 650 mg PO Q6H PRN PRN Reason: Headache/Pain Mild Scale (1-3) Last Admin: 01/17/24 23:53 Dose: 325 mg Al Hydroxide/Mg Hydroxide (Magnesium Hydrox/Alum Hydrox 30 Ml Oral.Susp) 30 ml PO Q6H PRN PRN Reason: Heartburn/Nausea Amlodipine Besylate (Amlodipine Besylate 10 Mg Tablet) 10 mg PO DAILY [facility]; Protocol Last Admin: 02/25/24 08:03 Dose: Not Given Aspirin (Aspirin 81 Mg Tab.Chew) 81 mg PO DAILY [facility] Last Admin: 02/25/24 08:03 Dose: Not Given Atorvastatin Calcium (Atorvastatin Calcium 40 Mg Tablet) 40 mg PO DAILY [facility] Last Admin: 02/25/24 08:03 Dose: Not Given Carbamazepine (Carbamazepine 200 Mg Tablet) 200 mg PO BID [facility] Last Admin: 02/25/24 08:04 Dose: Not Given Clonidine (Clonidine 0.2 Mg Patch.Tdwk) 0.2 mg TRANSDERMA Fr@0900 [facility]; Protocol Last Admin: 02/24/24 18:24 Dose: 0.2 mg Ferrous Sulfate (Ferrous Sulfate 324 Mg Tablet.) 324 mg PO BID [facility] Last Admin: 02/25/24 08:04 Dose: Not Given Haloperidol Lactate (Haloperidol Lactate 5 Mg/Ml Vial) 10 mg IM BID PRN PRN Reason: Refusal of Court PO Haldol Last Admin: 02/24/24 08:28 Dose: 10 mg Haloperidol Lactate (Haloperidol Lactate Oral Conc 10 Mg/5 Ml Oral.Conc) 5 mg PO Q6H PRN PRN Reason: Psychosis or severe agitation Last Admin: 02/24/24 11:21 Dose: 5 mg Haloperidol Lactate (Haloperidol Lactate Oral Conc 10 Mg/5 Ml Oral.Conc) 10 mg PO BID [facility] Last Admin: 02/25/24 07:48 Dose: 10 mg Lorazepam (Lorazepam 1 Mg Tablet) 1 mg PO Q6H PRN PRN Reason: agitation Last Admin: 02/24/24 20:04 Dose: 1 mg Magnesium Hydroxide (Milk Of Magnesia 30 Ml Oral.Susp) 30 ml PO DAILY PRN PRN Reason: Constipation Nicotine Polacrilex (Nicotine Polacrilex 2 Mg Gum) 2 mg BUCCAL Q2H PRN PRN Reason: Nicotine Cravings Trazodone HCl (Trazodone Hcl 50 Mg Tablet) 50 mg PO BEDTIME MRX1 PRN PRN Reason: Insomnia Last Admin: 02/22/24 23:59 Dose: 50 mg Valproic Acid (Valproic Acid Liquid 250 Mg/5 Ml Solution) 750 mg PO BID [facility] Last Admin: 02/25/24 07:47 Dose: 750 mg Vitamin D (Cholecalciferol (Vitamin D3) 25 Mcg Tablet) 50 mcg PO DAILY [facility] Last Admin: 02/25/24 08:04 Dose: Not Given Allergies Allergies Allergy/AdvReac Type Severity Reaction Status Date / Time lithium Allergy Unknown Verified 01/13/24 18:08 Assessment & Plan Assessment & Plan (1) Schizoaffective disorder, bipolar type: Status: Acute Code(s): F25.0 - Schizoaffective disorder, bipolar type (2) Hypertension: Status: Acute Code(s): I10 - Essential (primary) hypertension (3) Diabetes mellitus: Status: Acute Code(s): E11.9 - Type 2 diabetes mellitus without complications Plan 68 [facility] [place] [facility] with chronic psychotic disorder, refusing medication , elevated bp and disorganized and agitated behavior requiring psychiatric hospitalization and treatment not competent to sign cv. 01/14 continue to follow - gave lambs warning today- and he says the gamma operator will be a she- still refusing medications and quite psychotic takes alot of redirection to settle him poor adls- 01/15- Refuses meds, refuses hospitalist consult-second day File for Section Seven consideration on 01/17. Provide care as he will allow. 01/16: Depakote 250 mg bid Haldol, Lorazepam, Benadryl prn Section 7 to be filed 01/17 Message left for guardian. 01/17: Section Seven filed. . Court scheduled 01/26/24 Pt continues to refuse medicaitons. He is in need of full assist with ADL's and is incontinent. Pt transferred to [facility] this afternoon. 01/19/2024 Patient pending civil commitment loud agitated would not engage in any conversation with this manual writer non informational healing agitated verbally aggressive. Every attempt being made to get a copy of the patient's Servin order unclear why this has been so problematic. Encourage food and fluids 01/19 continue same treatment 01/21/24 Patient labile agitated intrusive close labs ordered in order to per to protect the community patient wandering into patient's rooms intrusive impulsive laying on another person's bed. Often hostile agitated posturing at times we are still pending copy of reported Servin order encourage p.o. compliance 01/22/2024 Patient did require physical hold escort him out of a room that he jumped in other patient's room and on their bed while there were in it. There was no physical harm and the patient did leave the room his markedly impulsive with poor judgment remains on close observation has intermittently taken Haldol liquid pending civil commitment treatment plan there is a question of Servin order 01/22 The patient had been more agitated. We review his Servin order and we are increasing the Abilify up to 15 mg p.o. daily and adding Haldol p.r.n. since it is in his role years order. We needed to give him some p.r.n. at 14:00. 01/23 The patient is grossly psychotic disrobing and sexually disinhibited we are starting Haldol 2 mg p.o. t.i.d. to target psychosis as per court order treatment over objection order. 01/24 The patient remains very agitated and angry disruptive so we are increasing the Haldol from 2 mg to 5 mg p.o. t.i.d. with a backup IM if the patient refused as per court order. 01/25 we have increased the Haldol but still he is very psychotic and restless. Today he refused his blood work. He needed to be physically held twice. 01/26 the patient remains agitated at times but his last IM backup was yesterday. We are going to increase Abilify up to 20 mg daily to target mood lability and psychosis. 01/29/2024: Increase frequency of prn doses from tid to prn q 6mrs. Poor insight and unable to care for self 02/08 pt has not take any of mood stabilizer. continues to have poor sleep, intrusive and combative requiring IM medications, increase haldol 10mg po TID, back up IM. Will add ativan 1mg po TID, also back up IM. Labs show elevated CK 2300, BUN 20, Cr 1.80, unclear baseline Cr as he does have CKD. Discussed with hospitalist Dr. Gama, to give IV fluids and monitor labs tomorrow. LFTs also elevated suspect this is secondary to elevation in CK and should trend down as CK goes down. 02/09 still agitated, creatinine and CPK slightly high as yesterday, he removed his IV line there is no big difference with IV hydration. We are changing his community role years to have more options since it is not working Abilify and Haldol 02/10 3 chemical restraints yesterday. appears more combative, and somewhat more confused. Will decrease amount of benzo and antihistamine given to him as it seems to be backfiring. did discuss with ICU attending, Dr. Whiteside possibility of transferring there but they would like us to try IV depakote and exhaust all resources prior to considering transfer. Pt did take depakote springkle 1000mg with apple sauce with much encourage. 02/11 continue tx. 02/12 continue same treatment 01/14 continue with Abilify and other court order medications, we are Namenda and the court order. 02/14 Team report improvement today with pt having greater comfort and less agitation. 1126 the staff reported that the patient had been less violent in the last 24 hours 02/16 continue tx. will check depakote and ammonia on 02/17 in AM. 02/17 continue regime and plan of care 02/25/2024: Continue current treatment plan Plan 1. Continue with Abilify and Haldol as per court order. 2. Blood work ordered today but the patient refused. 3. The patient is still less aggressive but still psychotic will follow closely. Today on February 23 we needed to chemically restrain him in the morning. Reason for continued inpatient stay Substantial Risk for: inability to function and rapid decompensation Time Spent With Patient Time: Total time managing care of this patient today ____ minutes.
[2024-02-25] MEDS: LORazepam 1 MG TABLET PO ×2 (13:44→21:00)
[2024-02-25] MEDS: Haloperidol Lactate Oral Conc 10 MG/5 ML ORAL.CONC 5 MG PO (13:46)
[2024-02-25 20:00] VITALS: RESP 16
[2024-02-25] MEDS: carBAMazepine 200 MG TABLET PO (21:00)
[2024-02-26] MEDS: Haloperidol Lactate Oral Conc 10 MG/5 ML ORAL.CONC 5 MG PO ×3 (00:02→16:36)
[2024-02-26] MEDS: traZODone HCL 50 MG TABLET PO ×2 (00:02→22:09)
[2024-02-26] MEDS: Valproic Acid Liquid 250 MG/5 ML SOLUTION 750 MG PO ×2 (07:59→22:09)
[2024-02-26] MEDS: Haloperidol Lactate Oral Conc 10 MG/5 ML ORAL.CONC PO ×2 (07:59→22:09)
[2024-02-26] MEDS: LORazepam 1 MG TABLET PO ×2 (08:00→22:09)
--- NOTE | 2024-02-26 08:26 | P.PNPSI_ITS ---
Subjective Subjective Date of Service: 02/26/24 Reason For Visit: Schizoaffective disorder Interim History: Very agitated today. Physically aggressive with staff during showering, which she is normally accepting of. Has been in and out of his room asking for lunch, despite it being breakfast time. Easily frustrated. Not engaging. Medication Compliance: No Side effects from medications: No Attending Groups: No Review of Systems Acute medical concerns: No Review of Systems Review of Systems Yes Unobtainable due to mental status Mental Status Exam Mental Status Exam Patient Appearance: Appropriate Patient Orientation: Person Level of Consciousness: Awake Patient Behavior: Guarded Behavior Comments: Verbally aggressive unable to engage in a back and forth conversation yelling about chicken wings Mood Description: Angry Affect Description: Angry Patient Cognition Impaired: Yes Ability to Follow Directions: Fair Speech Pattern: Impoverished and Monotone Memory Description: Remote Impaired Diagnostics Vital Signs (24Hr): Vital Signs - 24 hr 02/25/24 20:00 Respiratory Rate 16 BMI result Body Mass Index 25.1 Labs 02/14/24 08:56 02/16/24 09:06 Medications Medications Current Medications Acetaminophen (Acetaminophen 325 Mg Tablet) 650 mg PO Q6H PRN PRN Reason: Headache/Pain Mild Scale (1-3) Last Admin: 01/17/24 23:53 Dose: 325 mg Al Hydroxide/Mg Hydroxide (Magnesium Hydrox/Alum Hydrox 30 Ml Oral.Susp) 30 ml PO Q6H PRN PRN Reason: Heartburn/Nausea Amlodipine Besylate (Amlodipine Besylate 10 Mg Tablet) 10 mg PO DAILY [facility]; Protocol Last Admin: 02/25/24 08:03 Dose: Not Given Aspirin (Aspirin 81 Mg Tab.Chew) 81 mg PO DAILY [facility] Last Admin: 02/25/24 08:03 Dose: Not Given Atorvastatin Calcium (Atorvastatin Calcium 40 Mg Tablet) 40 mg PO DAILY [facility] Last Admin: 02/25/24 08:03 Dose: Not Given Carbamazepine (Carbamazepine 200 Mg Tablet) 200 mg PO BID [facility] Last Admin: 02/25/24 21:00 Dose: 200 mg Clonidine (Clonidine 0.2 Mg Patch.Tdwk) 0.2 mg TRANSDERMA Fr@0900 [facility]; Protocol Last Admin: 02/24/24 18:24 Dose: 0.2 mg Ferrous Sulfate (Ferrous Sulfate 324 Mg Tablet.) 324 mg PO BID [facility] Last Admin: 02/25/24 21:06 Dose: Not Given Haloperidol Lactate (Haloperidol Lactate 5 Mg/Ml Vial) 10 mg IM BID PRN PRN Reason: Refusal of Court PO Haldol Last Admin: 02/24/24 08:28 Dose: 10 mg Haloperidol Lactate (Haloperidol Lactate Oral Conc 10 Mg/5 Ml Oral.Conc) 5 mg PO Q6H PRN PRN Reason: Psychosis or severe agitation Last Admin: 02/26/24 08:00 Dose: 5 mg Haloperidol Lactate (Haloperidol Lactate Oral Conc 10 Mg/5 Ml Oral.Conc) 10 mg PO BID [facility] Last Admin: 02/26/24 07:59 Dose: 10 mg Lorazepam (Lorazepam 1 Mg Tablet) 1 mg PO Q6H PRN PRN Reason: agitation Last Admin: 02/26/24 08:00 Dose: 1 mg Magnesium Hydroxide (Milk Of Magnesia 30 Ml Oral.Susp) 30 ml PO DAILY PRN PRN Reason: Constipation Nicotine Polacrilex (Nicotine Polacrilex 2 Mg Gum) 2 mg BUCCAL Q2H PRN PRN Reason: Nicotine Cravings Trazodone HCl (Trazodone Hcl 50 Mg Tablet) 50 mg PO BEDTIME MRX1 PRN PRN Reason: Insomnia Last Admin: 02/26/24 00:02 Dose: 50 mg Valproic Acid (Valproic Acid Liquid 250 Mg/5 Ml Solution) 750 mg PO BID [facility] Last Admin: 02/26/24 07:59 Dose: 750 mg Vitamin D (Cholecalciferol (Vitamin D3) 25 Mcg Tablet) 50 mcg PO DAILY [facility] Last Admin: 02/25/24 08:04 Dose: Not Given Allergies Allergies Allergy/AdvReac Type Severity Reaction Status Date / Time lithium Allergy Unknown Verified 01/13/24 18:08 Assessment & Plan Assessment & Plan (1) Schizoaffective disorder, bipolar type: Status: Acute Code(s): F25.0 - Schizoaffective disorder, bipolar type (2) Hypertension: Status: Acute Code(s): I10 - Essential (primary) hypertension (3) Diabetes mellitus: Status: Acute Code(s): E11.9 - Type 2 diabetes mellitus without complications Plan 68 yo from a snf with chronic psychotic disorder, refusing medication , elevated bp and disorganized and agitated behavior requiring psychiatric hospitalization and treatment not competent to sign cv. 01/14 continue to follow - gave lambs warning today- and he says the horse show judge will be a she- still refusing medications and quite psychotic takes alot of redirection to settle him poor adls- 01/15- Refuses meds, refuses hospitalist consult-second day File for Section Seven consideration on 01/17. Provide care as he will allow. 01/16: Depakote 250 mg bid Haldol, Lorazepam, Benadryl prn Section 7 to be filed 01/17 Message left for guardian. 01/17: Section Seven filed. . Court scheduled 01/26/24 Pt continues to refuse medicaitons. He is in need of full assist with ADL's and is incontinent. Pt transferred to [facility] this afternoon. 01/19/2024 Patient pending civil commitment loud agitated would not engage in any conversation with this radio news writer non informational healing agitated verbally aggressive. Every attempt being made to get a copy of the patient's Servin order unclear why this has been so problematic. Encourage food and fluids 01/19 continue same treatment 01/21/24 Patient labile agitated intrusive close labs ordered in order to per to protect the community patient wandering into patient's rooms intrusive impulsive laying on another person's bed. Often hostile agitated posturing at times we are still pending copy of reported Servin order encourage p.o. compliance 01/22/2024 Patient did require physical hold escort him out of a room that he jumped in other patient's room and on their bed while there were in it. There was no physical harm and the patient did leave the room his markedly impulsive with poor judgment remains on close observation has intermittently taken Haldol liquid pending civil commitment treatment plan there is a question of Servin order 01/22 The patient had been more agitated. We review his Servin order and we are increasing the Abilify up to 15 mg p.o. daily and adding Haldol p.r.n. since it is in his role years order. We needed to give him some p.r.n. at 14:00. 01/23 The patient is grossly psychotic disrobing and sexually disinhibited we are starting Haldol 2 mg p.o. t.i.d. to target psychosis as per court order treatment over objection order. 01/24 The patient remains very agitated and angry disruptive so we are increasing the Haldol from 2 mg to 5 mg p.o. t.i.d. with a backup IM if the patient refused as per court order. 01/25 we have increased the Haldol but still he is very psychotic and restless. Today he refused his blood work. He needed to be physically held twice. 01/26 the patient remains agitated at times but his last IM backup was yesterday. We are going to increase Abilify up to 20 mg daily to target mood lability and psychosis. 01/29/2024: Increase frequency of prn doses from tid to prn q 6mrs. Poor insight and unable to care for self 02/08 pt has not take any of mood stabilizer. continues to have poor sleep, intrusive and combative requiring IM medications, increase haldol 10mg po TID, back up IM. Will add ativan 1mg po TID, also back up IM. Labs show elevated CK 2300, BUN 20, Cr 1.80, unclear baseline Cr as he does have CKD. Discussed with hospitalist Dr. Gama, to give IV fluids and monitor labs tomorrow. LFTs also elevated suspect this is secondary to elevation in CK and should trend down as CK goes down. 02/09 still agitated, creatinine and CPK slightly high as yesterday, he removed his IV line there is no big difference with IV hydration. We are changing his community role years to have more options since it is not working Abilify and Haldol 02/10 3 chemical restraints yesterday. appears more combative, and somewhat more confused. Will decrease amount of benzo and antihistamine given to him as it seems to be backfiring. did discuss with ICU attending, Dr. Whiteside possibility of transferring there but they would like us to try IV depakote and exhaust all resources prior to considering transfer. Pt did take depakote springkle 1000mg with apple sauce with much encourage. 02/11 continue tx. 02/12 continue same treatment 01/14 continue with Abilify and other court order medications, we are Namenda and the court order. 02/14 Team report improvement today with pt having greater comfort and less agitation. 1126 the staff reported that the patient had been less violent in the last 24 hours 02/16 continue tx. will check depakote and ammonia on 02/17 in AM. 02/17 continue regime and plan of care 02/26/2024: Continue current regimen as per court order Plan 1. Continue with Abilify and Haldol as per court order. 2. Blood work ordered today but the patient refused. 3. The patient is still less aggressive but still psychotic will follow closely. Today on February 23 we needed to chemically restrain him in the morning. Reason for continued inpatient stay Substantial Risk for: harm to others Time Spent With Patient Time: Total time managing care of this patient today ____ minutes.
[2024-02-26] MEDS: carBAMazepine 200 MG TABLET PO (22:09)
[2024-02-27 07:40] VITALS: BP 125/58; PULSE 63; RESP 18; TEMP 36.6; O2SAT 99
[2024-02-27] MEDS: Haloperidol Lactate 5 MG/ML VIAL 10 MG IM (08:14)
--- NOTE | 2024-02-27 11:23 | PC.NURSE ---
Pt. refused PO court ordered haloperidol and resisted IM administration, requiring physical hold for duration of one minute with assistance of security.
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
[2024-02-27] MEDS: Haloperidol Lactate Oral Conc 10 MG/5 ML ORAL.CONC 5 MG PO (12:38)
[2024-02-27 19:52] VITALS: BP 131/60; PULSE 75; TEMP 36.4; O2SAT 99
[2024-02-27] MEDS: Haloperidol Lactate Oral Conc 10 MG/5 ML ORAL.CONC PO (22:48)
[2024-02-27] MEDS: Valproic Acid Liquid 250 MG/5 ML SOLUTION 750 MG PO (22:48)
[2024-02-27] MEDS: carBAMazepine 200 MG TABLET PO (22:48)
[2024-02-27] MEDS: LORazepam 1 MG TABLET PO (22:48)
[2024-02-27] MEDS: traZODone HCL 50 MG TABLET PO (22:48)
[2024-02-28] MEDS: Haloperidol Lactate 5 MG/ML VIAL 10 MG IM ×2 (10:32→20:33)
[2024-02-28] MEDS: LORazepam 2 MG/ML VIAL IM (10:52)
[2024-02-28] MEDS: chlorproMAZINE HCl 25 MG/ML AMPUL 100 MG IM (10:52)
--- NOTE | 2024-02-28 11:27 | PC.NURSE ---
The patient was aggressive and swinging his pillow at staff his 1:1. A Code Assist was called and Duress call also was made. He was held by security and escorted to his room. He was sitting in his bed without a hold. He was offered his PO medication multiple times, remained agitated and thrashing. Several members of staff spoke to him but he continued to refuse his medications. He was given Haldol 10mg IM at 1032 per Servin order with a hold by several security and staff. he seemed to have calmed down after the injection. He was lying in his bed with his 1:1 there. His legal guardian Jessica Zhao was updated at 1119 by phone by this contract technical writer today.
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
--- NOTE | 2024-02-28 12:05 | HO.PSYCHPN ---
Subjective Subjective Date of Service: 02/28/24 Reason For Visit: Schizoaffective disorder Subjective Notes: Conditional Voluntary Interim History: The patient had been agitated early in the morning he needed to be escorted with a physical hold and later on was violent and needed to be chemically restrained. The patient remains aggressive. Mental Status Exam Mental Status Exam Patient Appearance: Appropriate Patient Orientation: Person and Situation Level of Consciousness: Drowsy and Sedated Patient Behavior: Passive Mood Description: Withdrawn Affect Description: Constricted Patient Cognition Impaired: Yes Ability to Follow Directions: Good Speech Pattern: Clear Hallucinations: Auditory Delusions: Paranoid Ideation and Ideas of Reference Thought Process: Distracted and Slowed Thinking Thought Content: positive for [place] and positive for Poverty of Content Judgement: Poor Diagnostics Vital Signs (24Hr): Vital Signs - 24 hr 02/27/24 19:52 Temperature 97.5 F Pulse Rate 75 Blood Pressure 131/60 Pulse Oximetry 99 Oxygen Delivery Method Room Air BMI result Body Mass Index 25.1 Labs 02/14/24 08:56 02/16/24 09:06 Medications Medications Current Medications Acetaminophen (Acetaminophen 325 Mg Tablet) 650 mg PO Q6H PRN PRN Reason: Headache/Pain Mild Scale (1-3) Last Admin: 01/17/24 23:53 Dose: 325 mg Al Hydroxide/Mg Hydroxide (Magnesium Hydrox/Alum Hydrox 30 Ml Oral.Susp) 30 ml PO Q6H PRN PRN Reason: Heartburn/Nausea Amlodipine Besylate (Amlodipine Besylate 10 Mg Tablet) 10 mg PO DAILY [facility]; Protocol Last Admin: 02/28/24 10:36 Dose: Not Given Aspirin (Aspirin 81 Mg Tab.Chew) 81 mg PO DAILY [facility] Last Admin: 02/28/24 10:37 Dose: Not Given Atorvastatin Calcium (Atorvastatin Calcium 40 Mg Tablet) 40 mg PO DAILY [facility] Last Admin: 02/28/24 10:37 Dose: Not Given Carbamazepine (Carbamazepine 200 Mg Tablet) 200 mg PO BID [facility] Last Admin: 02/28/24 10:37 Dose: Not Given Clonidine (Clonidine 0.2 Mg Patch.Tdwk) 0.2 mg TRANSDERMA Fr@0900 [facility]; Protocol Last Admin: 02/24/24 18:24 Dose: 0.2 mg Ferrous Sulfate (Ferrous Sulfate 324 Mg Tablet.) 324 mg PO BID [facility] Last Admin: 02/28/24 10:37 Dose: Not Given Haloperidol Lactate (Haloperidol Lactate 5 Mg/Ml Vial) 10 mg IM BID PRN PRN Reason: Refusal of Court PO Haldol Last Admin: 02/28/24 10:32 Dose: 10 mg Haloperidol Lactate (Haloperidol Lactate Oral Conc 10 Mg/5 Ml Oral.Conc) 5 mg PO Q6H PRN PRN Reason: Psychosis or severe agitation Last Admin: 02/27/24 12:38 Dose: 5 mg Haloperidol Lactate (Haloperidol Lactate Oral Conc 10 Mg/5 Ml Oral.Conc) 10 mg PO BID [facility] Last Admin: 02/28/24 10:38 Dose: Not Given Lorazepam (Lorazepam 1 Mg Tablet) 1 mg PO Q6H PRN PRN Reason: agitation Last Admin: 02/27/24 22:48 Dose: 1 mg Magnesium Hydroxide (Milk Of Magnesia 30 Ml Oral.Susp) 30 ml PO DAILY PRN PRN Reason: Constipation Nicotine Polacrilex (Nicotine Polacrilex 2 Mg Gum) 2 mg BUCCAL Q2H PRN PRN Reason: Nicotine Cravings Trazodone HCl (Trazodone Hcl 50 Mg Tablet) 50 mg PO BEDTIME MRX1 PRN PRN Reason: Insomnia Last Admin: 02/27/24 22:48 Dose: 50 mg Valproic Acid (Valproic Acid Liquid 250 Mg/5 Ml Solution) 750 mg PO BID [facility] Last Admin: 02/28/24 10:38 Dose: Not Given Vitamin D (Cholecalciferol (Vitamin D3) 25 Mcg Tablet) 50 mcg PO DAILY [facility] Last Admin: 02/28/24 10:37 Dose: Not Given Allergies Allergies Allergy/AdvReac Type Severity Reaction Status Date / Time lithium Allergy Unknown Verified 01/13/24 18:08 Assessment & Plan Assessment & Plan (1) Schizoaffective disorder, bipolar type: Status: Acute Code(s): F25.0 - Schizoaffective disorder, bipolar type (2) Hypertension: Status: Acute Code(s): I10 - Essential (primary) hypertension (3) Diabetes mellitus: Status: Acute Code(s): E11.9 - Type 2 diabetes mellitus without complications Plan 68 [facility] from a [facility] with chronic psychotic disorder, refusing medication , elevated bp and disorganized and agitated behavior requiring psychiatric hospitalization and treatment not competent to sign cv. 01/14 continue to follow - gave lambs warning today- and he says the steel post installer will be a she- still refusing medications and quite psychotic takes alot of redirection to settle him poor adls- 01/15- Refuses meds, refuses hospitalist consult-second day File for Section Seven consideration on 01/17. Provide care as he will allow. 01/16: Depakote 250 mg bid Haldol, Lorazepam, Benadryl prn Section 7 to be filed 01/17 Message left for guardian. 01/17: Section Seven filed. . Court scheduled 01/26/24 Pt continues to refuse medicaitons. He is in need of full assist with ADL's and is incontinent. Pt transferred to [facility] this afternoon. 01/19/2024 Patient pending civil commitment loud agitated would not engage in any conversation with this manual writer non informational healing agitated verbally aggressive. Every attempt being made to get a copy of the patient's Servin order unclear why this has been so problematic. Encourage food and fluids 01/19 continue same treatment 01/21/24 Patient labile agitated intrusive close labs ordered in order to per to protect the community patient wandering into patient's rooms intrusive impulsive laying on another person's bed. Often hostile agitated posturing at times we are still pending copy of reported Servin order encourage p.o. compliance 01/22/2024 Patient did require physical hold escort him out of a room that he jumped in other patient's room and on their bed while there were in it. There was no physical harm and the patient did leave the room his markedly impulsive with poor judgment remains on close observation has intermittently taken Haldol liquid pending civil commitment treatment plan there is a question of Servin order 01/22 The patient had been more agitated. We review his Servin order and we are increasing the Abilify up to 15 mg p.o. daily and adding Haldol p.r.n. since it is in his role years order. We needed to give him some p.r.n. at 14:00. 01/23 The patient is grossly psychotic disrobing and sexually disinhibited we are starting Haldol 2 mg p.o. t.i.d. to target psychosis as per court order treatment over objection order. 01/24 The patient remains very agitated and angry disruptive so we are increasing the Haldol from 2 mg to 5 mg p.o. t.i.d. with a backup IM if the patient refused as per court order. 01/25 we have increased the Haldol but still he is very psychotic and restless. Today he refused his blood work. He needed to be physically held twice. 01/26 the patient remains agitated at times but his last IM backup was yesterday. We are going to increase Abilify up to 20 mg daily to target mood lability and psychosis. 01/29/2024: Increase frequency of prn doses from tid to prn q 6mrs. Poor insight and unable to care for self 02/08 pt has not take any of mood stabilizer. continues to have poor sleep, intrusive and combative requiring IM medications, increase haldol 10mg po TID, back up IM. Will add ativan 1mg po TID, also back up IM. Labs show elevated CK 2300, BUN 20, Cr 1.80, unclear baseline Cr as he does have CKD. Discussed with hospitalist Dr. Gama, to give IV fluids and monitor labs tomorrow. LFTs also elevated suspect this is secondary to elevation in CK and should trend down as CK goes down. 02/09 still agitated, creatinine and CPK slightly high as yesterday, he removed his IV line there is no big difference with IV hydration. We are changing his community role years to have more options since it is not working Abilify and Haldol 02/10 3 chemical restraints yesterday. appears more combative, and somewhat more confused. Will decrease amount of benzo and antihistamine given to him as it seems to be backfiring. did discuss with ICU attending, Dr. Whiteside possibility of transferring there but they would like us to try IV depakote and exhaust all resources prior to considering transfer. Pt did take depakote springkle 1000mg with apple sauce with much encourage. 02/11 continue tx. 02/12 continue same treatment 01/14 continue with Abilify and other court order medications, we are Namenda and the court order. 02/14 Team report improvement today with pt having greater comfort and less agitation. 1126 the staff reported that the patient had been less violent in the last 24 hours 02/16 continue tx. will check depakote and ammonia on 02/17 in AM. 02/17 continue regime and plan of care 02/26/2024: Continue current regimen as per court order Plan 1. Continue with Abilify and Haldol as per court order. 2. Blood work ordered today but the patient refused. 3. The patient is still less aggressive but still psychotic will follow closely. Still grossly psychotic and so far he has had 15 restraints in the unit we are waiting for the court order to change his court order treatment plan Reason for continued inpatient stay Substantial Risk for: inability to function, rapid decompensation and med/psych decompensation Time Spent With Patient Time: Total time managing care of this patient today __20__ minutes.
[2024-02-29 00:10] VITALS: BP 148/100; PULSE 104; RESP 18; O2SAT 97
--- NOTE | 2024-02-29 00:20 | PM.EVENT ---
Event Note Date of Service: 02/29/24 Event Note: Rapid response activated after patient fell down hitting his head. Sitter witnessed the fall. Evaluation was challenging as the patient seems to be in acute psychotic state and extremely restless despite receiving Haldol 10 mg IM 8:33 PM. Patient will require chemical restraints orders per psychiatric service for his safety and to obtain a head and c-spine CT scan stat to asses for any intracranial abnormalities such as bleeding. Time Spent With Patient Time: Total time managing care of this patient today ____ minutes.
[2024-02-29] MEDS: Valproic Acid Liquid 250 MG/5 ML SOLUTION 750 MG PO ×2 (01:00→08:11)
--- NOTE | 2024-02-29 01:29 | PC.NURSE ---
Addendum entered by Suleiman Virgen RN 02/29/24 01:50: 010 Original Note: 0010 responding to calls for help in pts 177 room, noticed pts leg straight across lower sides rails and length of pts body extending onto floor. pts head is noted to be on floor. pt has not lost consciousness. plan 1. [facility] HEAD implemented 2. pt is responding verbally and is not following instructions to remain still/in fact pt has sat up at the bedside 3. vital signs 140/80 p 104 rr 17 sao2 100% 4. consumer marketing specialist provider chrissie quiroga notified 5. pts observer states pt was kneeling on bed and then stood up on mattress and fell over the side. 0100 dr acuna spoke with dr rios and the plan is to go ahead with ct scan. pt has been vacillating between periods of somnolence and agitation. please note that this behavior has been present for weeks. pt has no visible trauma on head. monet 3 mm. hand grasps equal firm. speech can be nonsensical and difficult to discern. again speech pattern is baseline.
--- NOTE | 2024-02-29 04:16 | PC.NURSE ---
Pts guardian Sr. Merchandise Planner Jessica Zhao notified of pts fall.
[2024-02-29] MEDS: Haloperidol Lactate Oral Conc 10 MG/5 ML ORAL.CONC PO ×2 (08:12→19:55)
[2024-02-29] MEDS: Haloperidol Lactate Oral Conc 10 MG/5 ML ORAL.CONC 5 MG PO (11:29)
--- NOTE | 2024-02-29 12:59 | P.PNPSI_ITS ---
Subjective Subjective Date of Service: 02/29/24 Reason For Visit: Schizoaffective disorder Subjective Notes: Section 7 and Section 8 Interim History: The nursing staff reported the patient had been aggressive in the morning, he received IM Thorazine he had been agitated. He fell and hit his head and he has been fully workout. On interview the patient states that he does not want to take medication. Mental Status Exam Mental Status Exam Patient Appearance: Unkempt Patient Orientation: Person Level of Consciousness: Awake Patient Behavior: Guarded and Passive Mood Description: Withdrawn Affect Description: Labile Patient Cognition Impaired: Yes Ability to Follow Directions: Good Speech Pattern: Clear Hallucinations: None Delusions: Paranoid Ideation and Ideas of Reference Thought Process: Illogical and Distracted Thought Content: positive for [place] and positive for Poverty of Content Judgement: Poor Diagnostics Vital Signs (24Hr): Vital Signs - 24 hr 02/29/24 00:10 Pulse Rate 104 H Respiratory Rate 18 Blood Pressure 148/100 H Pulse Oximetry 97 Oxygen Delivery Method Room Air BMI result Body Mass Index 25.1 Labs 02/14/24 08:56 02/16/24 09:06 Medications Medications Current Medications Acetaminophen (Acetaminophen 325 Mg Tablet) 650 mg PO Q6H PRN PRN Reason: Headache/Pain Mild Scale (1-3) Last Admin: 01/17/24 23:53 Dose: 325 mg Al Hydroxide/Mg Hydroxide (Magnesium Hydrox/Alum Hydrox 30 Ml Oral.Susp) 30 ml PO Q6H PRN PRN Reason: Heartburn/Nausea Amlodipine Besylate (Amlodipine Besylate 10 Mg Tablet) 10 mg PO DAILY [facility]; Protocol Last Admin: 02/29/24 08:13 Dose: Not Given Aspirin (Aspirin 81 Mg Tab.Chew) 81 mg PO DAILY [facility] Last Admin: 02/29/24 08:12 Dose: Not Given Atorvastatin Calcium (Atorvastatin Calcium 40 Mg Tablet) 40 mg PO DAILY [facility] Last Admin: 02/29/24 08:12 Dose: Not Given Carbamazepine (Carbamazepine 200 Mg Tablet) 200 mg PO BID [facility] Last Admin: 02/29/24 08:12 Dose: Not Given Clonidine (Clonidine 0.2 Mg Patch.Tdwk) 0.2 mg TRANSDERMA Fr@0900 [facility]; Protocol Last Admin: 02/24/24 18:24 Dose: 0.2 mg Ferrous Sulfate (Ferrous Sulfate 324 Mg Tablet.) 324 mg PO BID [facility] Last Admin: 02/29/24 08:12 Dose: Not Given Haloperidol Lactate (Haloperidol Lactate 5 Mg/Ml Vial) 10 mg IM BID PRN PRN Reason: Refusal of Court PO Haldol Last Admin: 02/28/24 20:33 Dose: 10 mg Haloperidol Lactate (Haloperidol Lactate Oral Conc 10 Mg/5 Ml Oral.Conc) 5 mg PO Q6H PRN PRN Reason: Psychosis or severe agitation Last Admin: 02/29/24 11:29 Dose: 5 mg Haloperidol Lactate (Haloperidol Lactate Oral Conc 10 Mg/5 Ml Oral.Conc) 10 mg PO BID [facility] Last Admin: 02/29/24 08:12 Dose: 10 mg Lorazepam (Lorazepam 1 Mg Tablet) 1 mg PO Q6H PRN PRN Reason: agitation Last Admin: 02/27/24 22:48 Dose: 1 mg Magnesium Hydroxide (Milk Of Magnesia 30 Ml Oral.Susp) 30 ml PO DAILY PRN PRN Reason: Constipation Nicotine Polacrilex (Nicotine Polacrilex 2 Mg Gum) 2 mg BUCCAL Q2H PRN PRN Reason: Nicotine Cravings Trazodone HCl (Trazodone Hcl 50 Mg Tablet) 50 mg PO BEDTIME MRX1 PRN PRN Reason: Insomnia Last Admin: 02/27/24 22:48 Dose: 50 mg Valproic Acid (Valproic Acid Liquid 250 Mg/5 Ml Solution) 750 mg PO BID [facility] Last Admin: 02/29/24 08:11 Dose: 750 mg Vitamin D (Cholecalciferol (Vitamin D3) 25 Mcg Tablet) 50 mcg PO DAILY [facility] Last Admin: 02/29/24 08:12 Dose: Not Given Allergies Allergies Allergy/AdvReac Type Severity Reaction Status Date / Time lithium Allergy Unknown Verified 01/13/24 18:08 Assessment & Plan Assessment & Plan (1) Schizoaffective disorder, bipolar type: Status: Acute Code(s): F25.0 - Schizoaffective disorder, bipolar type (2) Hypertension: Status: Acute Code(s): I10 - Essential (primary) hypertension (3) Diabetes mellitus: Status: Acute Code(s): E11.9 - Type 2 diabetes mellitus without complications Plan 68 yo from a [facility] with chronic psychotic disorder, refusing medication , elevated bp and disorganized and agitated behavior requiring psychiatric hospitalization and treatment not competent to sign cv. 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 Provide care as he will allow. 01/16: Depakote 250 mg bid Haldol, Lorazepam, Benadryl prn Section 7 to be filed 01/17 Message left for guardian. 01/17: Section Seven filed. . Court scheduled 01/26/24 Pt continues to refuse medicaitons. He is in need of full assist with ADL's and is incontinent. Pt transferred to [facility] this afternoon. 01/19/2024 Patient pending civil commitment loud agitated would not engage in any conversation with this commercial insurance underwriter non informational healing agitated verbally aggressive. Every attempt being made to get a copy of the patient's Servin order unclear why this has been so problematic. Encourage food and fluids 01/19 continue same treatment 01/21/24 Patient labile agitated intrusive close labs ordered in order to per to protect the community patient wandering into patient's rooms intrusive impulsive laying on another person's bed. Often hostile agitated posturing at times we are still pending copy of reported Servin order encourage p.o. compliance 01/22/2024 Patient did require physical hold escort him out of a room that he jumped in other patient's room and on their bed while there were in it. There was no physical harm and the patient did leave the room his markedly impulsive with poor judgment remains on close observation has intermittently taken Haldol liquid pending civil commitment treatment plan there is a question of Servin order 01/22 The patient had been more agitated. We review his Servin order and we are increasing the Abilify up to 15 mg p.o. daily and adding Haldol p.r.n. since it is in his role years order. We needed to give him some p.r.n. at 14:00. 01/23 The patient is grossly psychotic disrobing and sexually disinhibited we are starting Haldol 2 mg p.o. t.i.d. to target psychosis as per court order treatment over objection order. 01/24 The patient remains very agitated and angry disruptive so we are increasing the Haldol from 2 mg to 5 mg p.o. t.i.d. with a backup IM if the patient refused as per court order. 01/25 we have increased the Haldol but still he is very psychotic and restless. Today he refused his blood work. He needed to be physically held twice. 01/26 the patient remains agitated at times but his last IM backup was yesterday. We are going to increase Abilify up to 20 mg daily to target mood lability and psychosis. 01/29/2024: Increase frequency of prn doses from tid to prn q 6mrs. Poor insight and unable to care for self 02/08 pt has not take any of mood stabilizer. continues to have poor sleep, intrusive and combative requiring IM medications, increase haldol 10mg po TID, back up IM. Will add ativan 1mg po TID, also back up IM. Labs show elevated CK 2300, BUN 20, Cr 1.80, unclear baseline Cr as he does have CKD. Discussed with hospitalist Dr. Gama, to give IV fluids and monitor labs tomorrow. LFTs also elevated suspect this is secondary to elevation in CK and should trend down as CK goes down. 02/09 still agitated, creatinine and CPK slightly high as yesterday, he removed his IV line there is no big difference with IV hydration. We are changing his community role years to have more options since it is not working Abilify and Haldol 02/10 3 chemical restraints yesterday. appears more combative, and somewhat more confused. Will decrease amount of benzo and antihistamine given to him as it seems to be backfiring. did discuss with ICU attending, Dr. Whiteside possibility of transferring there but they would like us to try IV depakote and exhaust all resources prior to considering transfer. Pt did take depakote springkle 1000mg with apple sauce with much encourage. 02/11 continue tx. 02/12 continue same treatment 01/14 continue with Abilify and other court order medications, we are Namenda and the court order. 02/14 Team report improvement today with pt having greater comfort and less agitation. 1126 the staff reported that the patient had been less violent in the last 24 hours 02/16 continue tx. will check depakote and ammonia on 02/17 in AM. 02/17 continue regime and plan of care 02/26/2024: Continue current regimen as per court order Plan 1. Continue with Abilify and Haldol as per court order. 2. Blood work ordered today but the patient refused. 3. The patient is still less aggressive but still psychotic will follow closely. Still grossly psychotic and so far he has had 15 restraints in the unit we are waiting for the court order to change his court order treatment plan Reason for continued inpatient stay Substantial Risk for: inability to function, rapid decompensation and med/psych decompensation Time Spent With Patient Time: Total time managing care of this patient today __20__ minutes.
--- NOTE | 2024-02-29 14:53 | HO.PSYEVENT ---
Event Note Date of Service: 02/28/24 Psych Restraint Event Note: 02/28/2024 10:46 am The patient was severely agitated, physically violent and he needed to be chemically and physically restrained. Vital signs were stable, the patient was scored with security to his room and he accepted voluntary the IM but he needed to be helped briefly for safety of the IM. No injuries reported. Time Spent With Patient Time: Total time managing care of this patient today __20__ minutes.
--- NOTE | 2024-02-29 14:56 | HO.PSYEVENT ---
Event Note Date of Service: 02/28/24 Psych Restraint Event Note: 02/28/2024 at 10:15. The patient was grossly psychotic, physically violent threatening staff and peers. The patient was tried to be deescalated verbally and he was scored to his room. Needed to be briefly held. No evidence of injuries. Vital signs within normal limits. Time Spent With Patient Time: Total time managing care of this patient today _20___ minutes.
[2024-02-29] MEDS: LORazepam 1 MG TABLET PO (16:28)
[2024-02-29 20:00] VITALS: BP 145/72; PULSE 97; RESP 16; TEMP 36.3; O2SAT 98
[2024-03-01] MEDS: traZODone HCL 50 MG TABLET PO (01:16)
[2024-03-01] MEDS: Valproic Acid Liquid 250 MG/5 ML SOLUTION 750 MG PO ×3 (01:17→21:19)
[2024-03-01] MEDS: carBAMazepine 200 MG TABLET PO (01:20)
[2024-03-01 08:00] VITALS: RESP 18
[2024-03-01] MEDS: Haloperidol Lactate Oral Conc 10 MG/5 ML ORAL.CONC PO ×2 (10:08→21:19)
--- NOTE | 2024-03-01 13:29 | P.PNPSI_ITS ---
Subjective Subjective Date of Service: 03/01/24 Reason For Visit: Schizoaffective disorder Subjective Notes: Section 7 and Section 8 Interim History: The nursing staff reported the patient had been agitated, but so far he had not been physically restrained. Yesterday he had 2 episodes. On interview the patient remains disorganized. Mental Status Exam Mental Status Exam Patient Appearance: Well Grooomed and Appropriate Patient Orientation: Person and Situation Level of Consciousness: Awake and Appropriate Patient Behavior: Guarded and Passive Mood Description: Withdrawn Affect Description: Constricted Patient Cognition Impaired: Yes Ability to Follow Directions: Good Speech Pattern: Clear Hallucinations: Auditory Delusions: Paranoid Ideation and Ideas of Reference Thought Process: Illogical and Distracted Thought Content: positive for [place] and positive for Poverty of Content Judgement: Poor Diagnostics Vital Signs (24Hr): Vital Signs - 24 hr 02/29/24 20:00 03/01/24 08:00 Temperature 97.3 F Pulse Rate 97 Respiratory Rate 16 18 Blood Pressure 145/72 H Pulse Oximetry 98 Oxygen Delivery Method Room Air BMI result Body Mass Index 25.1 Labs 02/14/24 08:56 02/16/24 09:06 Medications Medications Current Medications Acetaminophen (Acetaminophen 325 Mg Tablet) 650 mg PO Q6H PRN PRN Reason: Headache/Pain Mild Scale (1-3) Last Admin: 01/17/24 23:53 Dose: 325 mg Al Hydroxide/Mg Hydroxide (Magnesium Hydrox/Alum Hydrox 30 Ml Oral.Susp) 30 ml PO Q6H PRN PRN Reason: Heartburn/Nausea Amlodipine Besylate (Amlodipine Besylate 10 Mg Tablet) 10 mg PO DAILY [facility]; Protocol Last Admin: 03/01/24 10:12 Dose: Not Given Aspirin (Aspirin 81 Mg Tab.Chew) 81 mg PO DAILY [facility] Last Admin: 03/01/24 10:12 Dose: Not Given Atorvastatin Calcium (Atorvastatin Calcium 40 Mg Tablet) 40 mg PO DAILY [facility] Last Admin: 03/01/24 10:09 Dose: Not Given Carbamazepine (Carbamazepine 200 Mg Tablet) 200 mg PO BID [facility] Last Admin: 03/01/24 10:12 Dose: Not Given Clonidine (Clonidine 0.2 Mg Patch.Tdwk) 0.2 mg TRANSDERMA Fr@0900 [facility]; Protocol Last Admin: 02/24/24 18:24 Dose: 0.2 mg Ferrous Sulfate (Ferrous Sulfate 324 Mg Tablet.) 324 mg PO BID [facility] Last Admin: 03/01/24 10:09 Dose: Not Given Haloperidol Lactate (Haloperidol Lactate 5 Mg/Ml Vial) 10 mg IM BID PRN PRN Reason: Refusal of Court PO Haldol Last Admin: 02/28/24 20:33 Dose: 10 mg Haloperidol Lactate (Haloperidol Lactate Oral Conc 10 Mg/5 Ml Oral.Conc) 5 mg PO Q6H PRN PRN Reason: Psychosis or severe agitation Last Admin: 02/29/24 11:29 Dose: 5 mg Haloperidol Lactate (Haloperidol Lactate Oral Conc 10 Mg/5 Ml Oral.Conc) 10 mg PO BID [facility] Last Admin: 03/01/24 10:08 Dose: 10 mg Lorazepam (Lorazepam 1 Mg Tablet) 1 mg PO Q6H PRN PRN Reason: agitation Last Admin: 02/29/24 16:28 Dose: 1 mg Magnesium Hydroxide (Milk Of Magnesia 30 Ml Oral.Susp) 30 ml PO DAILY PRN PRN Reason: Constipation Nicotine Polacrilex (Nicotine Polacrilex 2 Mg Gum) 2 mg BUCCAL Q2H PRN PRN Reason: Nicotine Cravings Trazodone HCl (Trazodone Hcl 50 Mg Tablet) 50 mg PO BEDTIME MRX1 PRN PRN Reason: Insomnia Last Admin: 03/01/24 01:16 Dose: 50 mg Valproic Acid (Valproic Acid Liquid 250 Mg/5 Ml Solution) 750 mg PO BID [facility] Last Admin: 03/01/24 10:07 Dose: 750 mg Vitamin D (Cholecalciferol (Vitamin D3) 25 Mcg Tablet) 50 mcg PO DAILY [facility] Last Admin: 03/01/24 10:09 Dose: Not Given Allergies Allergies Allergy/AdvReac Type Severity Reaction Status Date / Time lithium Allergy Unknown Verified 01/13/24 18:08 Assessment & Plan Assessment & Plan (1) Schizoaffective disorder, bipolar type: Status: Acute Code(s): F25.0 - Schizoaffective disorder, bipolar type (2) Hypertension: Status: Acute Code(s): I10 - Essential (primary) hypertension (3) Diabetes mellitus: Status: Acute Code(s): E11.9 - Type 2 diabetes mellitus without complications Plan 68 yo from a [facility] with chronic psychotic disorder, refusing medication , elevated bp and disorganized and agitated behavior requiring psychiatric hospitalization and treatment not competent to sign cv. 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 Provide care as he will allow. 01/16: Depakote 250 mg bid Haldol, Lorazepam, Benadryl prn Section 7 to be filed 01/17 Message left for guardian. 01/17: Section Seven filed. . Court scheduled 01/26/24 Pt continues to refuse medicaitons. He is in need of full assist with ADL's and is incontinent. Pt transferred to [facility] this afternoon. 01/19/2024 Patient pending civil commitment loud agitated would not engage in any conversation with this technical document writer non informational healing agitated verbally aggressive. Every attempt being made to get a copy of the patient's Servin order unclear why this has been so problematic. Encourage food and fluids 01/19 continue same treatment 01/21/24 Patient labile agitated intrusive close labs ordered in order to per to protect the community patient wandering into patient's rooms intrusive impulsive laying on another person's bed. Often hostile agitated posturing at times we are still pending copy of reported Servin order encourage p.o. compliance 01/22/2024 Patient did require physical hold escort him out of a room that he jumped in other patient's room and on their bed while there were in it. There was no physical harm and the patient did leave the room his markedly impulsive with poor judgment remains on close observation has intermittently taken Haldol liquid pending civil commitment treatment plan there is a question of Servin order 01/22 The patient had been more agitated. We review his Servin order and we are increasing the Abilify up to 15 mg p.o. daily and adding Haldol p.r.n. since it is in his role years order. We needed to give him some p.r.n. at 14:00. 01/23 The patient is grossly psychotic disrobing and sexually disinhibited we are starting Haldol 2 mg p.o. t.i.d. to target psychosis as per court order treatment over objection order. 01/24 The patient remains very agitated and angry disruptive so we are increasing the Haldol from 2 mg to 5 mg p.o. t.i.d. with a backup IM if the patient refused as per court order. 01/25 we have increased the Haldol but still he is very psychotic and restless. Today he refused his blood work. He needed to be physically held twice. 01/26 the patient remains agitated at times but his last IM backup was yesterday. We are going to increase Abilify up to 20 mg daily to target mood lability and psychosis. 01/29/2024: Increase frequency of prn doses from tid to prn q 6mrs. Poor insight and unable to care for self 02/08 pt has not take any of mood stabilizer. continues to have poor sleep, intrusive and combative requiring IM medications, increase haldol 10mg po TID, back up IM. Will add ativan 1mg po TID, also back up IM. Labs show elevated CK 2300, BUN 20, Cr 1.80, unclear baseline Cr as he does have CKD. Discussed with hospitalist Dr. Gama, to give IV fluids and monitor labs tomorrow. LFTs also elevated suspect this is secondary to elevation in CK and should trend down as CK goes down. 02/09 still agitated, creatinine and CPK slightly high as yesterday, he removed his IV line there is no big difference with IV hydration. We are changing his community role years to have more options since it is not working Abilify and Haldol 02/10 3 chemical restraints yesterday. appears more combative, and somewhat more confused. Will decrease amount of benzo and antihistamine given to him as it seems to be backfiring. did discuss with ICU attending, Dr. Whiteside possibility of transferring there but they would like us to try IV depakote and exhaust all resources prior to considering transfer. Pt did take depakote springkle 1000mg with apple sauce with much encourage. 02/11 continue tx. 02/12 continue same treatment 01/14 continue with Abilify and other court order medications, we are Namenda and the court order. 02/14 Team report improvement today with pt having greater comfort and less agitation. [id number] the staff reported that the patient had been less violent in the last 24 hours 02/16 continue tx. will check depakote and ammonia on 02/17 in AM. 02/17 continue regime and plan of care 02/26/2024: Continue current regimen as per court order Plan 1. Continue with Abilify and Haldol as per court order. 2. Blood work ordered today but the patient refused. 3. The patient is still less aggressive but still psychotic will follow closely. Still grossly psychotic and so far he has had 15 restraints in the unit we are waiting for the court order to change his court order treatment plan Reason for continued inpatient stay Substantial Risk for: inability to function, rapid decompensation and med/psych decompensation Time Spent With Patient Time: Total time managing care of this patient today __20__ minutes.
[2024-03-01] MEDS: LORazepam 1 MG TABLET PO (16:30)
--- NOTE | 2024-03-01 19:20 | PC.NURSE ---
Pt slept in late. After awakening took most of his liquid haldol and valproic acid. Refused rest of his am meds. Wandering in hallways in the afternoon. Trying to enter different rooms. Slamming door in his room. Frequently re-directed. PRNs offered multiple times but pt refused. Finally he took Ativan at 16:30. Med was effective. Will continue to monitor.
[2024-03-01 20:00] VITALS: BP 138/78; PULSE 90; RESP 18; TEMP 36.7; O2SAT 97
[2024-03-02] MEDS: Haloperidol Lactate 5 MG/ML VIAL 10 MG IM ×2 (08:14→20:15)
[2024-03-02] MEDS: LORazepam 2 MG/ML VIAL IM (11:17)
[2024-03-02] MEDS: chlorproMAZINE HCl 25 MG/ML AMPUL 100 MG IM (11:17)
--- NOTE | 2024-03-02 12:18 | PC.NURSE ---
Pt attempted to enter a female peers room. He was not redirectable by 1:1 staff. Pt then began to resist movement away from room and became combative. Security was called and this designer writer texted Dr. Watson via [employer], to request an IM restraint. Provider wrote order for Ativan 2mg IM and Thorazine 100mg IM. Both injections were administered without further incident. Previous to IM's being given, pt continued to be resistant to moving away from peers doorway. He was swinging out and grabbing at staff, and would not release staff's arm. He also dropped his weight to the floor in various places. VSS and patient now resting in bed with 1:1 staff next to him.
--- NOTE | 2024-03-02 12:35 | HO.PSYEVENT ---
Event Note Date of Service: 03/02/24 Psych Restraint Event Note: 03/02 at 11:30. The patient was physically assaultive, grossly disorganized and threatening staff and peers. he needed to be escorted with security to his room and have a very brief physical hold for medication IM. Thorazine 100 mg and Ativan 2 IM were given. No injuries noted, vital signs within normal limits. Time Spent With Patient Time: Total time managing care of this patient today __20__ minutes.
[2024-03-02 13:23] LABS: HBS Num1 16.46 mIU/mL (0-7.99); HBc Num1 4.72 S/CO (0.00-0.79); Hepatitis B Surface Antigen Negative (Negative); ~HepC Num1 0.13 S/CO (0.00-0.79); ~Hepatitis B Surface Antibody REACTIVE (Nonreactive)
[2024-03-02 13:24] LABS: HIV AB/AG Nonreactive (Nonreactive); HIV Num 1 0.05 S/CO (0.00-0.99)
[2024-03-02 13:39] LABS: Hepatitis C Ab Exposure Source NonReactive (Nonreactive)
[2024-03-02 14:54] LABS: HBc Num2 4.73 S/CO; HBc Num3 4.87 S/CO; Hepatitis B Core Antibody Reactive (Nonreactive)
--- NOTE | 2024-03-02 15:02 | P.PNPSI_ITS ---
Subjective Subjective Date of Service: 03/02/24 Reason For Visit: Schizoaffective disorder Subjective Notes: Conditional Voluntary Interim History: The nursing staff reported the patient took part of the medications, he had been wandering in the hallways. At 11:00 he became agitated and needed to be chemically and physically restrained held. On interview the patient is grossly disorganized. Mental Status Exam Mental Status Exam Patient Appearance: Appropriate Patient Orientation: Person Level of Consciousness: Awake Patient Behavior: Guarded and Passive Mood Description: Withdrawn Affect Description: Constricted Patient Cognition Impaired: Yes Ability to Follow Directions: Good Speech Pattern: Clear Hallucinations: None Delusions: Ideas of Reference Thought Process: Distracted and Slowed Thinking Thought Content: positive for [place] and positive for Poverty of Content Judgement: Poor Diagnostics Vital Signs (24Hr): Vital Signs - 24 hr 03/01/24 20:00 Temperature 98.1 F Pulse Rate 90 Respiratory Rate 18 Blood Pressure 138/78 Pulse Oximetry 97 Oxygen Delivery Method Room Air BMI result Body Mass Index 25.1 Labs 02/14/24 08:56 02/16/24 09:06 Labs: Laboratory Results - last 48 hr 03/02/24 11:52 Hep Bs Antigen Negative Hep Bs Antibody REACTIVE Hep B Core Total Ab Reactive Hep B Core IgM Ab Cancelled Hepatitis C Antibody NonReactive Hepatitis C Ab (EIA) Cancelled HIV 1&2 Ab/P24 Ag 4thGn Nonreactive Medications Medications Current Medications Acetaminophen (Acetaminophen 325 Mg Tablet) 650 mg PO Q6H PRN PRN Reason: Headache/Pain Mild Scale (1-3) Last Admin: 01/17/24 23:53 Dose: 325 mg Al Hydroxide/Mg Hydroxide (Magnesium Hydrox/Alum Hydrox 30 Ml Oral.Susp) 30 ml PO Q6H PRN PRN Reason: Heartburn/Nausea Amlodipine Besylate (Amlodipine Besylate 10 Mg Tablet) 10 mg PO DAILY [facility]; Protocol Last Admin: 03/02/24 08:41 Dose: Not Given Aspirin (Aspirin 81 Mg Tab.Chew) 81 mg PO DAILY [facility] Last Admin: 03/02/24 08:42 Dose: Not Given Atorvastatin Calcium (Atorvastatin Calcium 40 Mg Tablet) 40 mg PO DAILY [facility] Last Admin: 03/02/24 08:42 Dose: Not Given Carbamazepine (Carbamazepine 200 Mg Tablet) 200 mg PO BID [facility] Last Admin: 03/02/24 08:42 Dose: Not Given Clonidine (Clonidine 0.2 Mg Patch.Tdwk) 0.2 mg TRANSDERMA Fr@0900 [facility]; Protocol Last Admin: 03/02/24 08:42 Dose: Not Given Ferrous Sulfate (Ferrous Sulfate 324 Mg Tablet.Dr) 324 mg PO BID [facility] Last Admin: 03/02/24 08:42 Dose: Not Given Haloperidol Lactate (Haloperidol Lactate 5 Mg/Ml Vial) 10 mg IM BID PRN PRN Reason: Refusal of Court PO Haldol Last Admin: 03/02/24 08:14 Dose: 10 mg Haloperidol Lactate (Haloperidol Lactate Oral Conc 10 Mg/5 Ml Oral.Conc) 5 mg PO Q6H PRN PRN Reason: Psychosis or severe agitation Last Admin: 02/29/24 11:29 Dose: 5 mg Haloperidol Lactate (Haloperidol Lactate Oral Conc 10 Mg/5 Ml Oral.Conc) 10 mg PO BID [facility] Last Admin: 03/02/24 08:44 Dose: Not Given Lorazepam (Lorazepam 1 Mg Tablet) 1 mg PO Q6H PRN PRN Reason: agitation Last Admin: 03/01/24 16:30 Dose: 1 mg Magnesium Hydroxide (Milk Of Magnesia 30 Ml Oral.Susp) 30 ml PO DAILY PRN PRN Reason: Constipation Nicotine Polacrilex (Nicotine Polacrilex 2 Mg Gum) 2 mg BUCCAL Q2H PRN PRN Reason: Nicotine Cravings Trazodone HCl (Trazodone Hcl 50 Mg Tablet) 50 mg PO BEDTIME MRX1 PRN PRN Reason: Insomnia Last Admin: 03/01/24 01:16 Dose: 50 mg Valproic Acid (Valproic Acid Liquid 250 Mg/5 Ml Solution) 750 mg PO BID [facility] Last Admin: 03/02/24 08:44 Dose: Not Given Vitamin D (Cholecalciferol (Vitamin D3) 25 Mcg Tablet) 50 mcg PO DAILY [facility] Last Admin: 03/02/24 08:42 Dose: Not Given Allergies Allergies Allergy/AdvReac Type Severity Reaction Status Date / Time lithium Allergy Unknown Verified 01/13/24 18:08 Assessment & Plan Assessment & Plan (1) Schizoaffective disorder, bipolar type: Status: Acute Code(s): F25.0 - Schizoaffective disorder, bipolar type (2) Hypertension: Status: Acute Code(s): I10 - Essential (primary) hypertension (3) Diabetes mellitus: Status: Acute Code(s): E11.9 - Type 2 diabetes mellitus without complications Plan 68 yo from a alf with chronic psychotic disorder, refusing medication , elevated bp and disorganized and agitated behavior requiring psychiatric hospitalization and treatment not competent to sign cv. 01/14 continue to follow - gave lambs warning today- and he says the calender let off helper will be a she- still refusing medications and quite psychotic takes alot of redirection to settle him poor adls- 01/15- Refuses meds, refuses hospitalist consult-second day File for Section Seven consideration on 01/17. Provide care as he will allow. 01/16: Depakote 250 mg bid Haldol, Lorazepam, Benadryl prn Section 7 to be filed 01/17 Message left for guardian. 01/17: Section Seven filed. . Court scheduled 01/26/24 Pt continues to refuse medicaitons. He is in need of full assist with ADL's and is incontinent. Pt transferred to [facility] this afternoon. 01/19/2024 Patient pending civil commitment loud agitated would not engage in any conversation with this junior copywriter non informational healing agitated verbally aggressive. Every attempt being made to get a copy of the patient's Servin order unclear why this has been so problematic. Encourage food and fluids 01/19 continue same treatment 01/21/24 Patient labile agitated intrusive close labs ordered in order to per to protect the community patient wandering into patient's rooms intrusive impulsive laying on another person's bed. Often hostile agitated posturing at times we are still pending copy of reported Servin order encourage p.o. compliance 01/22/2024 Patient did require physical hold escort him out of a room that he jumped in other patient's room and on their bed while there were in it. There was no physical harm and the patient did leave the room his markedly impulsive with poor judgment remains on close observation has intermittently taken Haldol liquid pending civil commitment treatment plan there is a question of Servin order 01/22 The patient had been more agitated. We review his Servin order and we are increasing the Abilify up to 15 mg p.o. daily and adding Haldol p.r.n. since it is in his role years order. We needed to give him some p.r.n. at 14:00. 12/3 The patient is grossly psychotic disrobing and sexually disinhibited we are starting Haldol 2 mg p.o. t.i.d. to target psychosis as per court order treatment over objection order. 01/24 The patient remains very agitated and angry disruptive so we are increasing the Haldol from 2 mg to 5 mg p.o. t.i.d. with a backup IM if the patient refused as per court order. 01/25 we have increased the Haldol but still he is very psychotic and restless. Today he refused his blood work. He needed to be physically held twice. 01/26 the patient remains agitated at times but his last IM backup was yesterday. We are going to increase Abilify up to 20 mg daily to target mood lability and psychosis. 01/29/2024: Increase frequency of prn doses from tid to prn q 6mrs. Poor insight and unable to care for self 02/08 pt has not take any of mood stabilizer. continues to have poor sleep, intrusive and combative requiring IM medications, increase haldol 10mg po TID, back up IM. Will add ativan 1mg po TID, also back up IM. Labs show elevated CK 2300, BUN 20, Cr 1.80, unclear baseline Cr as he does have CKD. Discussed with hospitalist Dr. Gama, to give IV fluids and monitor labs tomorrow. LFTs also elevated suspect this is secondary to elevation in CK and should trend down as CK goes down. 02/09 still agitated, creatinine and CPK slightly high as yesterday, he removed his IV line there is no big difference with IV hydration. We are changing his community role years to have more options since it is not working Abilify and Haldol 02/10 3 chemical restraints yesterday. appears more combative, and somewhat more confused. Will decrease amount of benzo and antihistamine given to him as it seems to be backfiring. did discuss with ICU attending, Dr. Whiteside possibility of transferring there but they would like us to try IV depakote and exhaust all resources prior to considering transfer. Pt did take depakote springkle 1000mg with apple sauce with much encourage. 02/11 continue tx. 02/12 continue same treatment 01/14 continue with Abilify and other court order medications, we are Namenda and the court order. 02/14 Team report improvement today with pt having greater comfort and less agitation. [id number] the staff reported that the patient had been less violent in the last 24 hours 02/16 continue tx. will check depakote and ammonia on 02/17 in AM. 02/17 continue regime and plan of care 02/26/2024: Continue current regimen as per court order Plan 1. Continue with Abilify and Haldol as per court order. 2. Blood work ordered today but the patient refused. 3. The patient is still less aggressive but still psychotic will follow closely. Still grossly psychotic and so far he has had 15 restraints in the unit we are waiting for the court order to change his court order treatment plan Reason for continued inpatient stay Substantial Risk for: inability to function, rapid decompensation and med/psych decompensation Time Spent With Patient Time: Total time managing care of this patient today _20___ minutes.
[2024-03-03 08:00] VITALS: RESP 18
[2024-03-03] MEDS: Haloperidol Lactate 5 MG/ML VIAL 10 MG IM ×2 (12:20→20:47)
--- NOTE | 2024-03-03 13:36 | HO.PSYCHPN ---
Subjective Subjective Date of Service: 03/03/24 Reason For Visit: Schizoaffective disorder Subjective Notes: Conditional Voluntary Interim History: Pt slept intermittently. He is disorganized in behaviors, putting himself on the floor and refusing to go to his room and lay in his bed. He has refused labs, unclear if lactulose has increased. refusing meds intermittently but given IM. Medication Compliance: Intermittent Review of Systems Review of Systems one to one specialing Yes Unobtainable due to mental status Mental Status Exam Mental Status Exam Narrative: Appearance: wearing casual cloths; fair hygiene Behavior: can be calm; remains somewhat guarded, intermittently irritable, intrusive; loudly singing Psychomotor: intermittently agitated Speech: mostly clear, normal rate/rhythm/volume, spontaneous TP: mostly linear TC:various things Mood: expansive Affect: labile SI: denies HI: denies VH/AH: internally preoccupied Delusions: intermittent sexualized delusions Insight/judgment: impaired x 2. memory/cog: alert, not oriented to situation Diagnostics Vital Signs (24Hr): Vital Signs - 24 hr 03/03/24 08:00 Respiratory Rate 18 BMI result Body Mass Index 25.1 Labs 03/03/24 17:37 03/03/24 17:37 Labs: Laboratory Results - last 48 hr 03/02/24 11:52 Hep Bs Antigen Negative Hep Bs Antibody REACTIVE Hep B Core Total Ab Reactive Hep B Core IgM Ab Cancelled Hepatitis C Antibody NonReactive Hepatitis C Ab (EIA) Cancelled HIV 1&2 Ab/P24 Ag 4thGn Nonreactive Medications Medications Current Medications Acetaminophen (Acetaminophen 325 Mg Tablet) 650 mg PO Q6H PRN PRN Reason: Headache/Pain Mild Scale (1-3) Last Admin: 01/17/24 23:53 Dose: 325 mg Al Hydroxide/Mg Hydroxide (Magnesium Hydrox/Alum Hydrox 30 Ml Oral.Susp) 30 ml PO Q6H PRN PRN Reason: Heartburn/Nausea Amlodipine Besylate (Amlodipine Besylate 10 Mg Tablet) 10 mg PO DAILY [facility]; Protocol Last Admin: 03/03/24 10:16 Dose: Not Given Aspirin (Aspirin 81 Mg Tab.Chew) 81 mg PO DAILY [facility] Last Admin: 03/03/24 10:16 Dose: Not Given Atorvastatin Calcium (Atorvastatin Calcium 40 Mg Tablet) 40 mg PO DAILY [facility] Last Admin: 03/03/24 10:16 Dose: Not Given Carbamazepine (Carbamazepine 200 Mg Tablet) 200 mg PO BID [facility] Last Admin: 03/03/24 10:17 Dose: Not Given Clonidine (Clonidine 0.2 Mg Patch.Tdwk) 0.2 mg TRANSDERMA Fr@0900 [facility]; Protocol Last Admin: 03/02/24 08:42 Dose: Not Given Ferrous Sulfate (Ferrous Sulfate 324 Mg Tablet.Dr) 324 mg PO BID [facility] Last Admin: 03/03/24 10:17 Dose: Not Given Haloperidol Lactate (Haloperidol Lactate 5 Mg/Ml Vial) 10 mg IM BID PRN PRN Reason: Refusal of Court PO Haldol Last Admin: 03/03/24 12:20 Dose: 10 mg Haloperidol Lactate (Haloperidol Lactate Oral Conc 10 Mg/5 Ml Oral.Conc) 5 mg PO Q6H PRN PRN Reason: Psychosis or severe agitation Last Admin: 02/29/24 11:29 Dose: 5 mg Haloperidol Lactate (Haloperidol Lactate Oral Conc 10 Mg/5 Ml Oral.Conc) 10 mg PO BID [facility] Last Admin: 03/03/24 12:29 Dose: Not Given Lorazepam (Lorazepam 1 Mg Tablet) 1 mg PO Q6H PRN PRN Reason: agitation Last Admin: 03/01/24 16:30 Dose: 1 mg Magnesium Hydroxide (Milk Of Magnesia 30 Ml Oral.Susp) 30 ml PO DAILY PRN PRN Reason: Constipation Nicotine Polacrilex (Nicotine Polacrilex 2 Mg Gum) 2 mg BUCCAL Q2H PRN PRN Reason: Nicotine Cravings Trazodone HCl (Trazodone Hcl 50 Mg Tablet) 50 mg PO BEDTIME MRX1 PRN PRN Reason: Insomnia Last Admin: 03/01/24 01:16 Dose: 50 mg Valproic Acid (Valproic Acid Liquid 250 Mg/5 Ml Solution) 750 mg PO BID [facility] Last Admin: 03/03/24 12:29 Dose: Not Given Vitamin D (Cholecalciferol (Vitamin D3) 25 Mcg Tablet) 50 mcg PO DAILY [facility] Last Admin: 03/03/24 10:17 Dose: Not Given Allergies Allergies Allergy/AdvReac Type Severity Reaction Status Date / Time lithium Allergy Unknown Verified 01/13/24 18:08 Assessment & Plan Assessment & Plan (1) Schizoaffective disorder, bipolar type: Status: Acute Code(s): F25.0 - Schizoaffective disorder, bipolar type (2) Hypertension: Status: Acute Code(s): I10 - Essential (primary) hypertension (3) Diabetes mellitus: Status: Acute Code(s): E11.9 - Type 2 diabetes mellitus without complications Plan 68 yo from a prison with chronic psychotic disorder, refusing medication , elevated bp and disorganized and agitated behavior requiring psychiatric hospitalization and treatment not competent to sign cv. 01/14 continue to follow - gave lambs warning today- and he says the corporation secretary will be a she- still refusing medications and quite psychotic takes alot of redirection to settle him poor adls- 01/15- Refuses meds, refuses hospitalist consult-second day File for Section Seven consideration on 01/17. Provide care as he will allow. 01/16: Depakote 250 mg bid Haldol, Lorazepam, Benadryl prn Section 7 to be filed 01/17 Message left for guardian. 01/17: Section Seven filed. . Court scheduled 01/26/24 Pt continues to refuse medicaitons. He is in need of full assist with ADL's and is incontinent. Pt transferred to [facility] this afternoon. 01/19/2024 Patient pending civil commitment loud agitated would not engage in any conversation with this marketing underwriter non informational healing agitated verbally aggressive. Every attempt being made to get a copy of the patient's Servin order unclear why this has been so problematic. Encourage food and fluids 01/19 continue same treatment 01/21/24 Patient labile agitated intrusive close labs ordered in order to per to protect the community patient wandering into patient's rooms intrusive impulsive laying on another person's bed. Often hostile agitated posturing at times we are still pending copy of reported Servin order encourage p.o. compliance 01/22/2024 Patient did require physical hold escort him out of a room that he jumped in other patient's room and on their bed while there were in it. There was no physical harm and the patient did leave the room his markedly impulsive with poor judgment remains on close observation has intermittently taken Haldol liquid pending civil commitment treatment plan there is a question of Servin order 01/22 The patient had been more agitated. We review his Servin order and we are increasing the Abilify up to 15 mg p.o. daily and adding Haldol p.r.n. since it is in his role years order. We needed to give him some p.r.n. at 14:00. 01/23 The patient is grossly psychotic disrobing and sexually disinhibited we are starting Haldol 2 mg p.o. t.i.d. to target psychosis as per court order treatment over objection order. 01/24 The patient remains very agitated and angry disruptive so we are increasing the Haldol from 2 mg to 5 mg p.o. t.i.d. with a backup IM if the patient refused as per court order. 01/25 we have increased the Haldol but still he is very psychotic and restless. Today he refused his blood work. He needed to be physically held twice. 01/26 the patient remains agitated at times but his last IM backup was yesterday. We are going to increase Abilify up to 20 mg daily to target mood lability and psychosis. 01/29/2024: Increase frequency of prn doses from tid to prn q 6mrs. Poor insight and unable to care for self 02/08 pt has not take any of mood stabilizer. continues to have poor sleep, intrusive and combative requiring IM medications, increase haldol 10mg po TID, back up IM. Will add ativan 1mg po TID, also back up IM. Labs show elevated CK 2300, BUN 20, Cr 1.80, unclear baseline Cr as he does have CKD. Discussed with hospitalist Dr. Gama, to give IV fluids and monitor labs tomorrow. LFTs also elevated suspect this is secondary to elevation in CK and should trend down as CK goes down. 02/09 still agitated, creatinine and CPK slightly high as yesterday, he removed his IV line there is no big difference with IV hydration. We are changing his community role years to have more options since it is not working Abilify and Haldol 02/10 3 chemical restraints yesterday. appears more combative, and somewhat more confused. Will decrease amount of benzo and antihistamine given to him as it seems to be backfiring. did discuss with ICU attending, Dr. Whiteside possibility of transferring there but they would like us to try IV depakote and exhaust all resources prior to considering transfer. Pt did take depakote springkle 1000mg with apple sauce with much encourage. 02/11 continue tx. 02/12 continue same treatment 01/14 continue with Abilify and other court order medications, we are Nam[place] and the court order. 02/14 Team report improvement today with pt having greater comfort and less agitation. [id number] the staff reported that the patient had been less violent in the last 24 hours 02/16 continue tx. will check depakote and ammonia on 02/17 in AM. 02/17 continue regime and plan of care 02/26/2024: Continue current regimen as per court order 03/03 continue tx. lactulose for now as we don't have new ammonia level, but will try to chack labs. Plan 1. Continue with Abilify and Haldol as per court order. 2. Blood work ordered today but the patient refused. 3. The patient is still less aggressive but still psychotic will follow closely. Still grossly psychotic and so far he has had 15 restraints in the unit we are waiting for the court order to change his court order treatment plan Reason for continued inpatient stay Substantial Risk for: harm to others and inability to function Time Spent With Patient Time: Total time managing care of this patient today ____ minutes.
--- NOTE | 2024-03-03 14:12 | PC.NURSE ---
Bret declined to have his vital signs taken and declined morning medications. IM Haldol given per FOSTER order without incident and Bret did not resist. Rebecca Abraham NP notified of refusal of vital signs and refusal of meds.
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
[2024-03-03] MEDS: LORazepam 2 MG/ML VIAL IM (16:30)
[2024-03-03] MEDS: chlorproMAZINE HCl 25 MG/ML AMPUL 100 MG IM (16:31)
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
[2024-03-03 17:40] LABS: MANUAL DIFF FLAG NO
[2024-03-03 17:44] LABS: Basophils Percent Auto 0.2 % (0-2); Eosinophils Percent Auto 0.1 % (0-4); Hematocrit 32.8 % (42.0-52.0); Hemoglobin 10.6 g/dl (14.0-18.0); Imm Gran Abs Auto 0.05 X10*3/uL (0.00-0.03); Imm Gran Pct Auto 0.4 % (0.0-0.4); Lymphocytes Absolute Auto 0.6 X10*3/uL (1.2-4.9); Lymphocytes Percent Auto 5.5 % (20-40); Mean Corpuscular HGB Conc 32.3 g/dl (31.0-36.0); Mean Corpuscular Hemoglobin 28.9 pg (27.0-33.0); Mean Corpuscular Volume 89.4 fL (80.0-98.0); Mean Platelet Volume 10.1 fL (9.4-12.4); Monocytes Absolute Auto 1.4 X10*3/uL (0.1-1.2); Monocytes Percent Auto 11.8 % (2-11); Neutrophils Absolute Auto 9.6 x10*3/uL (2.0-8.3); Platelet Count 171 X10*3/uL (160-400); Red Blood Count 3.67 X10*6/uL (4.60-5.80); Red Cell Distribution Width 15.1 % (11.0-16.0); White Blood Count 11.7 X10*3/uL (4.8-10.8)
[2024-03-03 17:56] LABS: Ammonia 47 umol/L (13-55)
[2024-03-03 18:12] LABS: Alanine Aminotransferase 18 U/L (0-40); Albumin Level 3.6 g/dL (3.5-5.0); Anion Gap 18 (12-20); Aspartate Amino Transferase 54 U/L (5-37); Bilirubin Total 0.4 mg/dL (0.0-1.0); Blood Urea Nitrogen 21 mg/dL (9-16); Carbon Dioxide 15 mmol/L (22-29); Chloride 113 mmol/L (96-108); Creatinine Clr Calc Pharmacy 38.1; Estimated Glomerular Filt Rate 35; Glucose Random 153 mg/dL (60-115); Potassium 4.6 mmol/L (3.3-5.1); Sodium 141 mmol/L (135-145); Total Protein 6.9 g/dL (6.5-8.0)
[2024-03-03 18:21] LABS: Alkaline Phosphatase 113 U/L (39-117)
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
[2024-03-04] MEDS: LORazepam 2 MG/ML VIAL IM ×2 (00:36→04:20)
[2024-03-04] MEDS: chlorproMAZINE HCl 25 MG/ML AMPUL 100 MG IM ×2 (00:38→04:19)
--- NOTE | 2024-03-04 01:31 | PC.NURSE ---
Patient increasingly restless and agitated throughout the evening. At approximately 0015, 1:1 observer yelled for help, patient wrapped hands around observers neck while attempting to redirect. Staff member was assisted, provider notified and patient received 2mg lorazepam and 100mg thorazine with good effect. Patient is calm, cooperative and appropriate as of this writing.
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
--- NOTE | 2024-03-04 05:04 | PC.NURSE ---
Patient napped for about a couple of hours after chemical restraint at 0013, woke up agitated and restless, multiple attempts to redirect patient's aggressive and combative behaviors unsuccessful. call worker person provider notified and order for 100mg Thorazine and 2mg Lorazepam IM given and administered at 0415. Patient was seen shortly by hospitalist Georgia Christiansen and is currently resting in bed. Will continue to monitor for safety.
--- NOTE | 2024-03-04 06:33 | PM.EVENT ---
Event Note Date of Service: 03/04/24 Event Note: Restraints Psychiatry chemical restraints. Contacted twice last night to sign chemical restraints. Pt was chemically restrained with lorazepam and Thorazine IM.Patient seen and examined. During the 2nd visit patient was noted to be very agitated and restless. Time Spent With Patient Time: Total time managing care of this patient today ____ minutes.
--- NOTE | 2024-03-04 07:31 | PC.NURSE ---
Left message for patient's guardian Jessica Zhao to inform her of overnight restraints.
[2024-03-04] MEDS: Valproic Acid Liquid 250 MG/5 ML SOLUTION 750 MG PO (08:07)
[2024-03-04] MEDS: Haloperidol Lactate Oral Conc 10 MG/5 ML ORAL.CONC PO (08:08)
--- NOTE | 2024-03-04 11:50 | HO.PSYCHPN ---
Subjective Subjective Date of Service: 03/04/24 Reason For Visit: Schizoaffective disorder Subjective Notes: Section 7 Interim History: Pt combative last night, requiring IM thorazine. He is disorganized in behaviors, putting himself on the floor and refusing to go to his room and lay in his bed. ammonia wnl. refusing meds intermittently but given IM. Review of Systems Review of Systems one to one specialing Yes Unobtainable due to mental status Mental Status Exam Mental Status Exam Narrative: Appearance: wearing casual cloths; fair hygiene Behavior: can be calm; remains somewhat guarded, intermittently irritable, intrusive; loudly singing Psychomotor: intermittently agitated Speech: mostly clear, normal rate/rhythm/volume, spontaneous TP: mostly linear TC:various things Mood: expansive Affect: labile SI: denies HI: denies VH/AH: internally preoccupied Delusions: intermittent sexualized delusions Insight/judgment: impaired x 2. memory/cog: alert, not oriented to situation Patient Appearance: Appropriate Patient Orientation: Person Level of Consciousness: Awake Patient Behavior: Guarded and Passive Behavior Comments: Verbally aggressive unable to engage in a back and forth conversation yelling about chicken wings Mood Description: Withdrawn Affect Description: Constricted Patient Cognition Impaired: Yes Ability to Follow Directions: Good Speech Pattern: Clear Memory Description: Remote Impaired Diagnostics Vital Signs (24Hr): BMI result Body Mass Index 25.1 Labs 03/03/24 17:37 03/03/24 17:37 Labs: Laboratory Results - last 48 hr 03/02/24 03/03/24 11:52 17:37 WBC 11.7 H RBC 3.67 L Hgb 10.6 L Hct 32.8 L MCV 89.4 MCH 28.9 MCHC 32.3 RDW 15.1 Plt Count 171 MPV 10.1 Immature Gran % (Auto) 0.4 Neut % (Auto) 82.0 H Lymph % (Auto) 5.5 L [place] % (Auto) 11.8 H Eos % (Auto) 0.1 Baso % (Auto) 0.2 Lymph # (Auto) 0.6 L [place] # (Auto) 1.4 H Eos # (Auto) 0.0 Baso # (Auto) 0.0 Abs Immat Gran (auto) 0.05 H Absolute Neuts (auto) 9.6 H Absolute Nucleated RBC 0.000 Nucleated RBC % (auto) 0.0 Sodium 141 Potassium 4.6 Chloride 113 H Carbon Dioxide 15 L Anion Gap 18 BUN 21 H Creatinine 1.92 H Estim Creat Clear Calc 38.1 Estimated GFR 35 Random Glucose 153 H Calcium 9.0 Total Bilirubin 0.4 AST 54 H ALT 18 Alkaline Phosphatase 113 Ammonia 47 Total Protein 6.9 Albumin 3.6 Hep Bs Antigen Negative Hep Bs Antibody REACTIVE Hep B Core Total Ab Reactive Hep B Core IgM Ab Cancelled Hepatitis C Antibody NonReactive Hepatitis C Ab (EIA) Cancelled HIV 1&2 Ab/P24 Ag 4thGn Nonreactive Medications Medications Current Medications Acetaminophen (Acetaminophen 325 Mg Tablet) 650 mg PO Q6H PRN PRN Reason: Headache/Pain Mild Scale (1-3) Last Admin: 01/17/24 23:53 Dose: 325 mg Al Hydroxide/Mg Hydroxide (Magnesium Hydrox/Alum Hydrox 30 Ml Oral.Susp) 30 ml PO Q6H PRN PRN Reason: Heartburn/Nausea Amlodipine Besylate (Amlodipine Besylate 10 Mg Tablet) 10 mg PO DAILY [facility]; Protocol Last Admin: 03/04/24 10:04 Dose: Not Given Aspirin (Aspirin 81 Mg Tab.Chew) 81 mg PO DAILY [facility] Last Admin: 03/04/24 10:05 Dose: Not Given Atorvastatin Calcium (Atorvastatin Calcium 40 Mg Tablet) 40 mg PO DAILY [facility] Last Admin: 03/04/24 10:05 Dose: Not Given Carbamazepine (Carbamazepine 200 Mg Tablet) 200 mg PO BID [facility] Last Admin: 03/04/24 10:05 Dose: Not Given Clonidine (Clonidine 0.2 Mg Patch.Tdwk) 0.2 mg TRANSDERMA Fr@0900 [facility]; Protocol Last Admin: 03/02/24 08:42 Dose: Not Given Ferrous Sulfate (Ferrous Sulfate 324 Mg Tablet.) 324 mg PO BID [facility] Last Admin: 03/04/24 10:05 Dose: Not Given Haloperidol Lactate (Haloperidol Lactate 5 Mg/Ml Vial) 10 mg IM BID PRN PRN Reason: Refusal of Court PO Haldol Last Admin: 03/03/24 20:47 Dose: 10 mg Haloperidol Lactate (Haloperidol Lactate Oral Conc 10 Mg/5 Ml Oral.Conc) 5 mg PO Q6H PRN PRN Reason: Psychosis or severe agitation Last Admin: 02/29/24 11:29 Dose: 5 mg Haloperidol Lactate (Haloperidol Lactate Oral Conc 10 Mg/5 Ml Oral.Conc) 10 mg PO BID [facility] Last Admin: 03/04/24 08:08 Dose: 10 mg Lorazepam (Lorazepam 1 Mg Tablet) 1 mg PO Q6H PRN PRN Reason: agitation Last Admin: 03/01/24 16:30 Dose: 1 mg Magnesium Hydroxide (Milk Of Magnesia 30 Ml Oral.Susp) 30 ml PO DAILY PRN PRN Reason: Constipation Nicotine Polacrilex (Nicotine Polacrilex 2 Mg Gum) 2 mg BUCCAL Q2H PRN PRN Reason: Nicotine Cravings Trazodone HCl (Trazodone Hcl 50 Mg Tablet) 50 mg PO BEDTIME MRX1 PRN PRN Reason: Insomnia Last Admin: 03/01/24 01:16 Dose: 50 mg Valproic Acid (Valproic Acid Liquid 250 Mg/5 Ml Solution) 750 mg PO BID [facility] Last Admin: 03/04/24 08:07 Dose: 750 mg Vitamin D (Cholecalciferol (Vitamin D3) 25 Mcg Tablet) 50 mcg PO DAILY [facility] Last Admin: 03/04/24 10:05 Dose: Not Given Allergies Allergies Allergy/AdvReac Type Severity Reaction Status Date / Time lithium Allergy Unknown Verified 01/13/24 18:08 Assessment & Plan Assessment & Plan (1) Schizoaffective disorder, bipolar type: Status: Acute Code(s): F25.0 - Schizoaffective disorder, bipolar type (2) Hypertension: Status: Acute Code(s): I10 - Essential (primary) hypertension (3) Diabetes mellitus: Status: Acute Code(s): E11.9 - Type 2 diabetes mellitus without complications Plan 68 yo from a prison with chronic psychotic disorder, refusing medication , elevated bp and disorganized and agitated behavior requiring psychiatric hospitalization and treatment not competent to sign cv. 01/14 continue to follow - gave lambs warning today- and he says the homemaker companion will be a she- still refusing medications and quite psychotic takes alot of redirection to settle him poor adls- 01/15- Refuses meds, refuses hospitalist consult-second day File for Section Seven consideration on 01/17. Provide care as he will allow. 01/16: Depakote 250 mg bid Haldol, Lorazepam, Benadryl prn Section 7 to be filed 01/17 Message left for guardian. 01/17: Section Seven filed. . Court scheduled 01/26/24 Pt continues to refuse medicaitons. He is in need of full assist with ADL's and is incontinent. Pt transferred to [facility] this afternoon. 01/19/2024 Patient pending civil commitment loud agitated would not engage in any conversation with this automobile service writer non informational healing agitated verbally aggressive. Every attempt being made to get a copy of the patient's Servin order unclear why this has been so problematic. Encourage food and fluids 01/19 continue same treatment 01/21/24 Patient labile agitated intrusive close labs ordered in order to per to protect the community patient wandering into patient's rooms intrusive impulsive laying on another person's bed. Often hostile agitated posturing at times we are still pending copy of reported Servin order encourage p.o. compliance 01/22/2024 Patient did require physical hold escort him out of a room that he jumped in other patient's room and on their bed while there were in it. There was no physical harm and the patient did leave the room his markedly impulsive with poor judgment remains on close observation has intermittently taken Haldol liquid pending civil commitment treatment plan there is a question of Servin order 01/22 The patient had been more agitated. We review his Servin order and we are increasing the Abilify up to 15 mg p.o. daily and adding Haldol p.r.n. since it is in his role years order. We needed to give him some p.r.n. at 14:00. 01/23 The patient is grossly psychotic disrobing and sexually disinhibited we are starting Haldol 2 mg p.o. t.i.d. to target psychosis as per court order treatment over objection order. 01/24 The patient remains very agitated and angry disruptive so we are increasing the Haldol from 2 mg to 5 mg p.o. t.i.d. with a backup IM if the patient refused as per court order. 01/25 we have increased the Haldol but still he is very psychotic and restless. Today he refused his blood work. He needed to be physically held twice. 01/26 the patient remains agitated at times but his last IM backup was yesterday. We are going to increase Abilify up to 20 mg daily to target mood lability and psychosis. 01/29/2024: Increase frequency of prn doses from tid to prn q 6mrs. Poor insight and unable to care for self 02/08 pt has not take any of mood stabilizer. continues to have poor sleep, intrusive and combative requiring IM medications, increase haldol 10mg po TID, back up IM. Will add ativan 1mg po TID, also back up IM. Labs show elevated CK 2300, BUN 20, Cr 1.80, unclear baseline Cr as he does have CKD. Discussed with hospitalist Dr. Gama, to give IV fluids and monitor labs tomorrow. LFTs also elevated suspect this is secondary to elevation in CK and should trend down as CK goes down. 02/09 still agitated, creatinine and CPK slightly high as yesterday, he removed his IV line there is no big difference with IV hydration. We are changing his community role years to have more options since it is not working Abilify and Haldol 02/10 3 chemical restraints yesterday. appears more combative, and somewhat more confused. Will decrease amount of benzo and antihistamine given to him as it seems to be backfiring. did discuss with ICU attending, Dr. Whiteside possibility of transferring there but they would like us to try IV depakote and exhaust all resources prior to considering transfer. Pt did take depakote springkle 1000mg with apple sauce with much encourage. 02/11 continue tx. 02/12 continue same treatment 01/14 continue with Abilify and other court order medications, we are Namenda and the court order. 02/14 Team report improvement today with pt having greater comfort and less agitation. [id number] the staff reported that the patient had been less violent in the last 24 hours 02/16 continue tx. will check depakote and ammonia on 02/17 in AM. 02/17 continue regime and plan of care 02/26/2024: Continue current regimen as per court order 03/03 continue tx. lactulose for now as we don't have new ammonia level, but will try to chack labs. Plan 1. Continue with Abilify and Haldol as per court order. 2. Blood work ordered today but the patient refused. 3. The patient is still less aggressive but still psychotic will follow closely. Still grossly psychotic and so far he has had 15 restraints in the unit we are waiting for the court order to change his court order treatment plan Reason for continued inpatient stay Substantial Risk for: harm to others and inability to function Time Spent With Patient Time: Total time managing care of this patient today ____ minutes.
[2024-03-04] MEDS: Haloperidol Lactate Oral Conc 10 MG/5 ML ORAL.CONC 5 MG PO (13:43)
[2024-03-04] MEDS: Haloperidol Lactate 5 MG/ML VIAL 10 MG IM (20:08)
[2024-03-04] MEDS: LORazepam 1 MG TABLET PO (20:08)
[2024-03-05] MEDS: LORazepam 2 MG/ML VIAL IM (02:55)
[2024-03-05] MEDS: chlorproMAZINE HCl 25 MG/ML AMPUL 100 MG IM (02:55)
--- NOTE | 2024-03-05 02:55 | HO.PSYEVENT ---
Documented by User: Rebecca Abraham NP 03/06/24 13:31 Event Note Date of Service: 03/05/24 Psych Restraint Event Note: This inspector automatic typewriter received message from RN informing pt escalating, attempting to hit staff, not able to be redirected. Ordered Thorazine 100mg IM, ativan 1mg IM. Chemical restraint took place at 02:55. Hospitalist in house to complete face to face assessment. Time Spent With Patient Time: Total time managing care of this patient today ____ minutes. Documented by User: Shay Long MD 03/06/24 14:45 Event Note Date of Service: 03/06/24
--- NOTE | 2024-03-05 03:22 | PC.NURSE ---
Patient woke up, become agitated with his delusional thought that his sister here to take him, attempted to redirect but patient's behavior escalated became more combative and assaultive, management professional provider notified/ordered Thorazine 100 mg IM and Ativan 2 mg IM/administered as ordered at 0255 with support of security. Legal guardian lasha Zhao notified via voicemail, Hospitalist Kuldip Valladares saw patient raised her concerns regarding multiple IM medication that patient is receiving, notified us to notify treatment team to review his treatment plan. patient continues to be on 1:1 for safety check, will continue to monitor
--- NOTE | 2024-03-05 04:33 | PM.EVENT ---
Event Note Date of Service: 03/05/24 Event Note: 3:04 AM Psychiatry chemical restraints with Thorazine 100 mg IM and Ativan 2 mg IM provided due to ongoing and persistent agitation. Patient seen and was sleeping soundly. We will obtain routine blood workup (including CBC, CMP and total CK) in the morning for further evaluation. Time Spent With Patient Time: Total time managing care of this patient today ____ minutes.
[2024-03-05] MEDS: Haloperidol Lactate Oral Conc 10 MG/5 ML ORAL.CONC PO (08:22)
[2024-03-05] MEDS: Valproic Acid Liquid 250 MG/5 ML SOLUTION 750 MG PO (08:23)
--- NOTE | 2024-03-05 09:26 | HO.PSYCHPN ---
Subjective Subjective Date of Service: 03/05/24 Reason For Visit: Schizoaffective disorder Subjective Notes: Section 7 and Section 8 Interim History: The nursing staff reported the patient has 5 restraints over the weekend. He had seen having visual hallucinations. Today we will have court order amendment. On interview the patient remains psychotic Mental Status Exam Mental Status Exam Patient Appearance: Unkempt Patient Orientation: Person Level of Consciousness: Awake Patient Behavior: Guarded and Passive Mood Description: Withdrawn Affect Description: Labile Patient Cognition Impaired: Yes Ability to Follow Directions: Good Speech Pattern: Clear Hallucinations: Auditory and Visual Delusions: Paranoid Ideation and Ideas of Reference Thought Process: Illogical Thought Content: positive for Poverty of Content and positive for Loose Associations Judgement: Poor Diagnostics Vital Signs (24Hr): BMI result Body Mass Index 25.1 Labs 03/05/24 12:49 03/03/24 17:37 Labs: Laboratory Results - last 48 hr 03/03/24 17:37 WBC 11.7 H RBC 3.67 L Hgb 10.6 L Hct 32.8 L MCV 89.4 MCH 28.9 MCHC 32.3 RDW 15.1 Plt Count 171 MPV 10.1 Immature Gran % (Auto) 0.4 Neut % (Auto) 82.0 H Lymph % (Auto) 5.5 L [place] % (Auto) 11.8 H Eos % (Auto) 0.1 Baso % (Auto) 0.2 Lymph # (Auto) 0.6 L [place] # (Auto) 1.4 H Eos # (Auto) 0.0 Baso # (Auto) 0.0 Abs Immat Gran (auto) 0.05 H Absolute Neuts (auto) 9.6 H Absolute Nucleated RBC 0.000 Nucleated RBC % (auto) 0.0 Sodium 141 Potassium 4.6 Chloride 113 H Carbon Dioxide 15 L Anion Gap 18 BUN 21 H Creatinine 1.92 H Estim Creat Clear Calc 38.1 Estimated GFR 35 Random Glucose 153 H Calcium 9.0 Total Bilirubin 0.4 AST 54 H ALT 18 Alkaline Phosphatase 113 Ammonia 47 Total Protein 6.9 Albumin 3.6 Medications Medications Current Medications Acetaminophen (Acetaminophen 325 Mg Tablet) 650 mg PO Q6H PRN PRN Reason: Headache/Pain Mild Scale (1-3) Last Admin: 01/17/24 23:53 Dose: 325 mg Al Hydroxide/Mg Hydroxide (Magnesium Hydrox/Alum Hydrox 30 Ml Oral.Susp) 30 ml PO Q6H PRN PRN Reason: Heartburn/Nausea Amlodipine Besylate (Amlodipine Besylate 10 Mg Tablet) 10 mg PO DAILY [facility]; Protocol Last Admin: 03/05/24 08:21 Dose: Not Given Aspirin (Aspirin 81 Mg Tab.Chew) 81 mg PO DAILY [facility] Last Admin: 03/05/24 08:21 Dose: Not Given Atorvastatin Calcium (Atorvastatin Calcium 40 Mg Tablet) 40 mg PO DAILY [facility] Last Admin: 03/05/24 08:21 Dose: Not Given Carbamazepine (Carbamazepine 200 Mg Tablet) 200 mg PO BID [facility] Last Admin: 03/05/24 08:22 Dose: Not Given Clonidine (Clonidine 0.2 Mg Patch.Tdwk) 0.2 mg TRANSDERMA Fr@0900 [facility]; Protocol Last Admin: 03/02/24 08:42 Dose: Not Given Ferrous Sulfate (Ferrous Sulfate 324 Mg Tablet.Dr) 324 mg PO BID [facility] Last Admin: 03/05/24 08:22 Dose: Not Given Haloperidol Lactate (Haloperidol Lactate 5 Mg/Ml Vial) 10 mg IM BID PRN PRN Reason: Refusal of Court PO Haldol Last Admin: 03/04/24 20:08 Dose: 10 mg Haloperidol Lactate (Haloperidol Lactate Oral Conc 10 Mg/5 Ml Oral.Conc) 5 mg PO Q6H PRN PRN Reason: Psychosis or severe agitation Last Admin: 03/04/24 13:43 Dose: 5 mg Haloperidol Lactate (Haloperidol Lactate Oral Conc 10 Mg/5 Ml Oral.Conc) 10 mg PO BID [facility] Last Admin: 03/05/24 08:22 Dose: 10 mg Lorazepam (Lorazepam 1 Mg Tablet) 1 mg PO Q6H PRN PRN Reason: agitation Last Admin: 03/04/24 20:08 Dose: 1 mg Magnesium Hydroxide (Milk Of Magnesia 30 Ml Oral.Susp) 30 ml PO DAILY PRN PRN Reason: Constipation Nicotine Polacrilex (Nicotine Polacrilex 2 Mg Gum) 2 mg BUCCAL Q2H PRN PRN Reason: Nicotine Cravings Trazodone HCl (Trazodone Hcl 50 Mg Tablet) 50 mg PO BEDTIME MRX1 PRN PRN Reason: Insomnia Last Admin: 03/01/24 01:16 Dose: 50 mg Valproic Acid (Valproic Acid Liquid 250 Mg/5 Ml Solution) 750 mg PO BID [facility] Last Admin: 03/05/24 08:23 Dose: 750 mg Vitamin D (Cholecalciferol (Vitamin D3) 25 Mcg Tablet) 50 mcg PO DAILY [facility] Last Admin: 03/05/24 08:22 Dose: Not Given Allergies Allergies Allergy/AdvReac Type Severity Reaction Status Date / Time lithium Allergy Unknown Verified 01/13/24 18:08 Assessment & Plan Assessment & Plan (1) Schizoaffective disorder, bipolar type: Status: Acute Code(s): F25.0 - Schizoaffective disorder, bipolar type (2) Hypertension: Status: Acute Code(s): I10 - Essential (primary) hypertension (3) Diabetes mellitus: Status: Acute Code(s): E11.9 - Type 2 diabetes mellitus without complications Plan 68 yo from a residential with chronic psychotic disorder, refusing medication , elevated bp and disorganized and agitated behavior requiring psychiatric hospitalization and treatment not competent to sign cv. 01/14 continue to follow - gave lambs warning today- and he says the screen cutter and trimmer will be a she- still refusing medications and quite psychotic takes alot of redirection to settle him poor adls- 01/15- Refuses meds, refuses hospitalist consult-second day File for Section Seven consideration on 01/17. Provide care as he will allow. 01/16: Depakote 250 mg bid Haldol, Lorazepam, Benadryl prn Section 7 to be filed 01/17 Message left for guardian. 01/17: Section Seven filed. . Court scheduled 01/26/24 Pt continues to refuse medicaitons. He is in need of full assist with ADL's and is incontinent. Pt transferred to [facility] this afternoon. 01/19/2024 Patient pending civil commitment loud agitated would not engage in any conversation with this manual writer non informational healing agitated verbally aggressive. Every attempt being made to get a copy of the patient's Servin order unclear why this has been so problematic. Encourage food and fluids 01/19 continue same treatment 01/21/24 Patient labile agitated intrusive close labs ordered in order to per to protect the community patient wandering into patient's rooms intrusive impulsive laying on another person's bed. Often hostile agitated posturing at times we are still pending copy of reported Servin order encourage p.o. compliance 01/22/2024 Patient did require physical hold escort him out of a room that he jumped in other patient's room and on their bed while there were in it. There was no physical harm and the patient did leave the room his markedly impulsive with poor judgment remains on close observation has intermittently taken Haldol liquid pending civil commitment treatment plan there is a question of Servin order 01/22 The patient had been more agitated. We review his Servin order and we are increasing the Abilify up to 15 mg p.o. daily and adding Haldol p.r.n. since it is in his role years order. We needed to give him some p.r.n. at 14:00. 01/23 The patient is grossly psychotic disrobing and sexually disinhibited we are starting Haldol 2 mg p.o. t.i.d. to target psychosis as per court order treatment over objection order. 01/24 The patient remains very agitated and angry disruptive so we are increasing the Haldol from 2 mg to 5 mg p.o. t.i.d. with a backup IM if the patient refused as per court order. 01/25 we have increased the Haldol but still he is very psychotic and restless. Today he refused his blood work. He needed to be physically held twice. 01/26 the patient remains agitated at times but his last IM backup was yesterday. We are going to increase Abilify up to 20 mg daily to target mood lability and psychosis. 01/29/2024: Increase frequency of prn doses from tid to prn q 6mrs. Poor insight and unable to care for self 02/08 pt has not take any of mood stabilizer. continues to have poor sleep, intrusive and combative requiring IM medications, increase haldol 10mg po TID, back up IM. Will add ativan 1mg po TID, also back up IM. Labs show elevated CK 2300, BUN 20, Cr 1.80, unclear baseline Cr as he does have CKD. Discussed with hospitalist Dr. Gama, to give IV fluids and monitor labs tomorrow. LFTs also elevated suspect this is secondary to elevation in CK and should trend down as CK goes down. 02/09 still agitated, creatinine and CPK slightly high as yesterday, he removed his IV line there is no big difference with IV hydration. We are changing his community role years to have more options since it is not working Abilify and Haldol 02/10 3 chemical restraints yesterday. appears more combative, and somewhat more confused. Will decrease amount of benzo and antihistamine given to him as it seems to be backfiring. did discuss with ICU attending, Dr. Whiteside possibility of transferring there but they would like us to try IV depakote and exhaust all resources prior to considering transfer. Pt did take depakote springkle 1000mg with apple sauce with much encourage. 02/11 continue tx. 02/12 continue same treatment 01/14 continue with Abilify and other court order medications, we are Namenda and the court order. 02/14 Team report improvement today with pt having greater comfort and less agitation. [id number] the staff reported that the patient had been less violent in the last 24 hours 02/16 continue tx. will check depakote and ammonia on 02/17 in AM. 02/17 continue regime and plan of care 02/26/2024: Continue current regimen as per court order 03/03 continue tx. lactulose for now as we don't have new ammonia level, but will try to chack labs. Plan 1. Continue with Abilify and Haldol as per court order. 2. Blood work ordered today but the patient refused. 3. The patient is still less aggressive but still psychotic will follow closely. Still grossly psychotic and so far he has had 15 restraints in the unit we are waiting for the court order to change his court order treatment plan Reason for continued inpatient stay Substantial Risk for: inability to function, rapid decompensation and med/psych decompensation Time Spent With Patient Time: Total time managing care of this patient today __20__ minutes.
[2024-03-05] MEDS: Haloperidol Lactate Oral Conc 10 MG/5 ML ORAL.CONC 5 MG PO (11:33)
[2024-03-05 12:53] LABS: MANUAL DIFF FLAG NO
[2024-03-05 12:56] LABS: Basophils Percent Auto 0.4 % (0-2); Eosinophils Absolute Auto 0.2 X10*3/uL (0.0-0.4); Eosinophils Percent Auto 2.7 % (0-4); Hematocrit 36.3 % (42.0-52.0); Hemoglobin 11.9 g/dl (14.0-18.0); Imm Gran Abs Auto 0.04 X10*3/uL (0.00-0.03); Imm Gran Pct Auto 0.7 % (0.0-0.4); Lymphocytes Absolute Auto 1.6 X10*3/uL (1.2-4.9); Lymphocytes Percent Auto 28.5 % (20-40); Mean Corpuscular HGB Conc 32.8 g/dl (31.0-36.0); Mean Corpuscular Volume 88.3 fL (80.0-98.0); Monocytes Absolute Auto 0.7 X10*3/uL (0.1-1.2); Monocytes Percent Auto 11.9 % (2-11); Neutrophils Absolute Auto 3.2 x10*3/uL (2.0-8.3); Neutrophils Percent Auto 55.8 % (45-73); Platelet Count 162 X10*3/uL (160-400); Red Blood Count 4.11 X10*6/uL (4.60-5.80); Red Cell Distribution Width 15.3 % (11.0-16.0); White Blood Count 5.7 X10*3/uL (4.8-10.8)
[2024-03-05 13:10] LABS: Alanine Aminotransferase 31 U/L (0-40); Albumin Level 3.9 g/dL (3.5-5.0); Alkaline Phosphatase 131 U/L (39-117); Anion Gap 14 (12-20); Aspartate Amino Transferase 77 U/L (5-37); Bilirubin Total 0.3 mg/dL (0.0-1.0); Blood Urea Nitrogen 16 mg/dL (9-16); Calcium 9.3 mg/dL (8.4-10.2); Carbon Dioxide 22 mmol/L (22-29); Chloride 109 mmol/L (96-108); Creatinine Clr Calc Pharmacy 45.7; Estimated Glomerular Filt Rate 43; Glucose Random 168 mg/dL (60-115); Potassium 5.2 mmol/L (3.3-5.1); Sodium 140 mmol/L (135-145); Total Protein 7.4 g/dL (6.5-8.0)
[2024-03-05] MEDS: LORazepam 1 MG TABLET PO (16:18)
[2024-03-05] MEDS: Haloperidol Lactate 5 MG/ML VIAL 10 MG IM (21:17)
[2024-03-06] MEDS: traZODone HCL 50 MG TABLET PO (00:57)
[2024-03-06] MEDS: Haloperidol Lactate Oral Conc 10 MG/5 ML ORAL.CONC 5 MG PO (00:57)
[2024-03-06] MEDS: LORazepam 1 MG TABLET PO (00:57)
[2024-03-06] MEDS: Haloperidol Lactate Oral Conc 10 MG/5 ML ORAL.CONC PO (07:31)
[2024-03-06] MEDS: Valproic Acid Liquid 250 MG/5 ML SOLUTION 750 MG PO (07:31)
--- NOTE | 2024-03-06 12:54 | P.PNPSI_ITS ---
Subjective Subjective Date of Service: 03/06/24 Reason For Visit: Schizoaffective disorder Subjective Notes: Section 7 and Section 8 Interim History: The nursing staff reported the patient had been erratic, no changes in his mental status. As per the chart, he was on restraints last night. On interview the patient was sedated. Mental Status Exam Mental Status Exam Patient Appearance: Appropriate and Unkempt Patient Orientation: Person Level of Consciousness: Awake Patient Behavior: Guarded and Passive Mood Description: Withdrawn Affect Description: Labile Patient Cognition Impaired: Yes Ability to Follow Directions: Good Speech Pattern: Clear Hallucinations: None Delusions: Paranoid Ideation and Ideas of Reference Thought Process: Distracted and Slowed Thinking Thought Content: positive for [place] and positive for Poverty of Content Judgement: Poor Diagnostics Vital Signs (24Hr): BMI result Body Mass Index 25.1 Labs 03/05/24 12:49 03/05/24 12:49 Labs: Laboratory Results - last 48 hr 03/05/24 12:49 WBC 5.7 RBC 4.11 L Hgb 11.9 L Hct 36.3 L MCV 88.3 MCH 29.0 MCHC 32.8 RDW 15.3 Plt Count 162 MPV 10.0 Immature Gran % (Auto) 0.7 H Neut % (Auto) 55.8 Lymph % (Auto) 28.5 [place] % (Auto) 11.9 H Eos % (Auto) 2.7 Baso % (Auto) 0.4 Lymph # (Auto) 1.6 [place] # (Auto) 0.7 Eos # (Auto) 0.2 Baso # (Auto) 0.0 Abs Immat Gran (auto) 0.04 H Absolute Neuts (auto) 3.2 Absolute Nucleated RBC 0.000 Nucleated RBC % (auto) 0.0 Sodium 140 Potassium 5.2 H Chloride 109 H Carbon Dioxide 22 Anion Gap 14 BUN 16 Creatinine 1.60 H Estim Creat Clear Calc 45.7 Estimated GFR 43 Random Glucose 168 H Calcium 9.3 Total Bilirubin 0.3 AST 77 H ALT 31 Alkaline Phosphatase 131 H Total Creatine Kinase 3065 H Total Protein 7.4 Albumin 3.9 Medications Medications Current Medications Acetaminophen (Acetaminophen 325 Mg Tablet) 650 mg PO Q6H PRN PRN Reason: Headache/Pain Mild Scale (1-3) Last Admin: 01/17/24 23:53 Dose: 325 mg Al Hydroxide/Mg Hydroxide (Magnesium Hydrox/Alum Hydrox 30 Ml Oral.Susp) 30 ml PO Q6H PRN PRN Reason: Heartburn/Nausea Amlodipine Besylate (Amlodipine Besylate 10 Mg Tablet) 10 mg PO DAILY [facility]; Protocol Last Admin: 03/06/24 08:30 Dose: Not Given Aspirin (Aspirin 81 Mg Tab.Chew) 81 mg PO DAILY [facility] Last Admin: 03/06/24 08:30 Dose: Not Given Atorvastatin Calcium (Atorvastatin Calcium 40 Mg Tablet) 40 mg PO DAILY [facility] Last Admin: 03/06/24 08:30 Dose: Not Given Carbamazepine (Carbamazepine 200 Mg Tablet) 200 mg PO BID [facility] Last Admin: 03/06/24 08:30 Dose: Not Given Clonidine (Clonidine 0.2 Mg Patch.Tdwk) 0.2 mg TRANSDERMA Fr@0900 [facility]; Protocol Last Admin: 03/02/24 08:42 Dose: Not Given Ferrous Sulfate (Ferrous Sulfate 324 Mg Tablet.Dr) 324 mg PO BID [facility] Last Admin: 03/06/24 08:31 Dose: Not Given Haloperidol Lactate (Haloperidol Lactate 5 Mg/Ml Vial) 10 mg IM BID PRN PRN Reason: Refusal of Court PO Haldol Last Admin: 03/05/24 21:17 Dose: 10 mg Haloperidol Lactate (Haloperidol Lactate Oral Conc 10 Mg/5 Ml Oral.Conc) 5 mg PO Q6H PRN PRN Reason: Psychosis or severe agitation Last Admin: 03/06/24 00:57 Dose: 5 mg Haloperidol Lactate (Haloperidol Lactate Oral Conc 10 Mg/5 Ml Oral.Conc) 10 mg PO BID [facility] Last Admin: 03/06/24 07:31 Dose: 10 mg Lorazepam (Lorazepam 1 Mg Tablet) 1 mg PO Q6H PRN PRN Reason: agitation Last Admin: 03/06/24 00:57 Dose: 1 mg Magnesium Hydroxide (Milk Of Magnesia 30 Ml Oral.Susp) 30 ml PO DAILY PRN PRN Reason: Constipation Nicotine Polacrilex (Nicotine Polacrilex 2 Mg Gum) 2 mg BUCCAL Q2H PRN PRN Reason: Nicotine Cravings Trazodone HCl (Trazodone Hcl 50 Mg Tablet) 50 mg PO BEDTIME MRX1 PRN PRN Reason: Insomnia Last Admin: 03/06/24 00:57 Dose: 50 mg Valproic Acid (Valproic Acid Liquid 250 Mg/5 Ml Solution) 750 mg PO BID [facility] Last Admin: 03/06/24 07:31 Dose: 750 mg Vitamin D (Cholecalciferol (Vitamin D3) 25 Mcg Tablet) 50 mcg PO DAILY [facility] Last Admin: 03/06/24 08:31 Dose: Not Given Allergies Allergies Allergy/AdvReac Type Severity Reaction Status Date / Time lithium Allergy Unknown Verified 01/13/24 18:08 Assessment & Plan Assessment & Plan (1) Schizoaffective disorder, bipolar type: Status: Acute Code(s): F25.0 - Schizoaffective disorder, bipolar type (2) Hypertension: Status: Acute Code(s): I10 - Essential (primary) hypertension (3) Diabetes mellitus: Status: Acute Code(s): E11.9 - Type 2 diabetes mellitus without complications Plan 68 yo from a shelter with chronic psychotic disorder, refusing medication , elevated bp and disorganized and agitated behavior requiring psychiatric hospitalization and treatment not competent to sign cv. 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 Provide care as he will allow. 01/16: Depakote 250 mg bid Haldol, Lorazepam, Benadryl prn Section 7 to be filed 01/17 Message left for guardian. 01/17: Section Seven filed. . Court scheduled 01/26/24 Pt continues to refuse medicaitons. He is in need of full assist with ADL's and is incontinent. Pt transferred to [facility] this afternoon. 01/19/2024 Patient pending civil commitment loud agitated would not engage in any conversation with this newswriter non informational healing agitated verbally aggressive. Every attempt being made to get a copy of the patient's Servin order unclear why this has been so problematic. Encourage food and fluids 01/19 continue same treatment 01/21/24 Patient labile agitated intrusive close labs ordered in order to per to protect the community patient wandering into patient's rooms intrusive impulsive laying on another person's bed. Often hostile agitated posturing at times we are still pending copy of reported Servin order encourage p.o. compliance 01/22/2024 Patient did require physical hold escort him out of a room that he jumped in other patient's room and on their bed while there were in it. There was no physical harm and the patient did leave the room his markedly impulsive with poor judgment remains on close observation has intermittently taken Haldol liquid pending civil commitment treatment plan there is a question of Servin order 01/22 The patient had been more agitated. We review his Servin order and we are increasing the Abilify up to 15 mg p.o. daily and adding Haldol p.r.n. since it is in his role years order. We needed to give him some p.r.n. at 14:00. 01/23 The patient is grossly psychotic disrobing and sexually disinhibited we are starting Haldol 2 mg p.o. t.i.d. to target psychosis as per court order treatment over objection order. 01/24 The patient remains very agitated and angry disruptive so we are increasing the Haldol from 2 mg to 5 mg p.o. t.i.d. with a backup IM if the patient refused as per court order. 01/25 we have increased the Haldol but still he is very psychotic and restless. Today he refused his blood work. He needed to be physically held twice. 01/26 the patient remains agitated at times but his last IM backup was yesterday. We are going to increase Abilify up to 20 mg daily to target mood lability and psychosis. 01/29/2024: Increase frequency of prn doses from tid to prn q 6mrs. Poor insight and unable to care for self 02/08 pt has not take any of mood stabilizer. continues to have poor sleep, intrusive and combative requiring IM medications, increase haldol 10mg po TID, back up IM. Will add ativan 1mg po TID, also back up IM. Labs show elevated CK 2300, BUN 20, Cr 1.80, unclear baseline Cr as he does have CKD. Discussed with hospitalist Dr. Gama, to give IV fluids and monitor labs tomorrow. LFTs also elevated suspect this is secondary to elevation in CK and should trend down as CK goes down. 02/09 still agitated, creatinine and CPK slightly high as yesterday, he removed his IV line there is no big difference with IV hydration. We are changing his community role years to have more options since it is not working Abilify and Haldol 02/10 3 chemical restraints yesterday. appears more combative, and somewhat more confused. Will decrease amount of benzo and antihistamine given to him as it seems to be backfiring. did discuss with ICU attending, Dr. Whiteside possibility of transferring there but they would like us to try IV depakote and exhaust all resources prior to considering transfer. Pt did take depakote springkle 1000mg with apple sauce with much encourage. 02/11 continue tx. 02/12 continue same treatment 01/14 continue with Abilify and other court order medications, we are Namenda and the court order. 02/14 Team report improvement today with pt having greater comfort and less agitation. [id number] the staff reported that the patient had been less violent in the last 24 hours 02/16 continue tx. will check depakote and ammonia on 02/17 in AM. 02/17 continue regime and plan of care 02/26/2024: Continue current regimen as per court order 03/03 continue tx. lactulose for now as we don't have new ammonia level, but will try to chack labs. Plan 1. Continue with Abilify and Haldol as per court order. 2. Blood work ordered today but the patient refused. 3. The patient is still less aggressive but still psychotic will follow closely. Still grossly psychotic and so far he has had 15 restraints in the unit we are waiting for the court order to change his court order treatment plan Reason for continued inpatient stay Substantial Risk for: inability to function, rapid decompensation and med/psych decompensation Time Spent With Patient Time: Total time managing care of this patient today __20__ minutes.
[2024-03-06 20:00] VITALS: BP 131/61; PULSE 63; TEMP 35.8; O2SAT 99
[2024-03-06] MEDS: Haloperidol Lactate 5 MG/ML VIAL 10 MG IM (20:53)
[2024-03-07] MEDS: Haloperidol Lactate Oral Conc 10 MG/5 ML ORAL.CONC 5 MG PO ×2 (03:17→07:45)
[2024-03-07] MEDS: Valproic Acid Liquid 250 MG/5 ML SOLUTION 750 MG PO (07:44)
[2024-03-07 08:00] VITALS: RESP 18
[2024-03-07] MEDS: LORazepam 1 MG TABLET PO (11:33)
[2024-03-07] MEDS: Haloperidol Lactate Oral Conc 10 MG/5 ML ORAL.CONC PO (11:35)
--- NOTE | 2024-03-07 11:50 | P.PNPSI_ITS ---
Subjective Subjective Date of Service: 03/07/24 Reason For Visit: Schizoaffective disorder Subjective Notes: Section 7 and Section 8 Interim History: The nursing staff reported the patient slept all day morning yesterday, he had been anxious and confused agitated in the afternoon. He slept all night. The protective services social worker reported the court hearing for the management of the court order for treatment over objection was been push for next Tuesday. On interview the patient remains pacing in the hallway disorganized and labile but so far no restraints today. On interview the patient is confused and stated that he is not going to take his medications. Mental Status Exam Mental Status Exam Patient Appearance: Appropriate Patient Orientation: Person and Situation Level of Consciousness: Awake Patient Behavior: Guarded and Resistive to Care Mood Description: Withdrawn Affect Description: Labile Patient Cognition Impaired: Yes Ability to Follow Directions: Fair Speech Pattern: Impoverished Hallucinations: None Delusions: Paranoid Ideation and Ideas of Reference Thought Process: Distracted and Slowed Thinking Thought Content: positive for [place] and positive for Poverty of Content Judgement: Fair Diagnostics Vital Signs (24Hr): Vital Signs - 24 hr 03/06/24 20:00 03/07/24 08:00 Temperature 96.5 F L Pulse Rate 63 Respiratory Rate 18 Blood Pressure 131/61 Pulse Oximetry 99 Oxygen Delivery Method Room Air BMI result Body Mass Index 25.1 Labs 03/05/24 12:49 03/05/24 12:49 Labs: Laboratory Results - last 48 hr 03/05/24 12:49 WBC 5.7 RBC 4.11 L Hgb 11.9 L Hct 36.3 L MCV 88.3 MCH 29.0 MCHC 32.8 RDW 15.3 Plt Count 162 MPV 10.0 Immature Gran % (Auto) 0.7 H Neut % (Auto) 55.8 Lymph % (Auto) 28.5 [place] % (Auto) 11.9 H Eos % (Auto) 2.7 Baso % (Auto) 0.4 Lymph # (Auto) 1.6 [place] # (Auto) 0.7 Eos # (Auto) 0.2 Baso # (Auto) 0.0 Abs Immat Gran (auto) 0.04 H Absolute Neuts (auto) 3.2 Absolute Nucleated RBC 0.000 Nucleated RBC % (auto) 0.0 Sodium 140 Potassium 5.2 H Chloride 109 H Carbon Dioxide 22 Anion Gap 14 BUN 16 Creatinine 1.60 H Estim Creat Clear Calc 45.7 Estimated GFR 43 Random Glucose 168 H Calcium 9.3 Total Bilirubin 0.3 AST 77 H ALT 31 Alkaline Phosphatase 131 H Total Creatine Kinase 3065 H Total Protein 7.4 Albumin 3.9 Medications Medications Current Medications Acetaminophen (Acetaminophen 325 Mg Tablet) 650 mg PO Q6H PRN PRN Reason: Headache/Pain Mild Scale (1-3) Last Admin: 01/17/24 23:53 Dose: 325 mg Al Hydroxide/Mg Hydroxide (Magnesium Hydrox/Alum Hydrox 30 Ml Oral.Susp) 30 ml PO Q6H PRN PRN Reason: Heartburn/Nausea Amlodipine Besylate (Amlodipine Besylate 10 Mg Tablet) 10 mg PO DAILY [facility]; Protocol Last Admin: 03/07/24 11:40 Dose: Not Given Aspirin (Aspirin 81 Mg Tab.Chew) 81 mg PO DAILY [facility] Last Admin: 03/07/24 11:40 Dose: Not Given Atorvastatin Calcium (Atorvastatin Calcium 40 Mg Tablet) 40 mg PO DAILY [facility] Last Admin: 03/07/24 11:40 Dose: Not Given Carbamazepine (Carbamazepine 200 Mg Tablet) 200 mg PO BID [facility] Last Admin: 03/07/24 11:41 Dose: Not Given Clonidine (Clonidine 0.2 Mg Patch.Tdwk) 0.2 mg TRANSDERMA Fr@0900 [facility]; Protocol Last Admin: 03/02/24 08:42 Dose: Not Given Ferrous Sulfate (Ferrous Sulfate 324 Mg Tablet.Dr) 324 mg PO BID [facility] Last Admin: 03/07/24 11:41 Dose: Not Given Haloperidol Lactate (Haloperidol Lactate 5 Mg/Ml Vial) 10 mg IM BID PRN PRN Reason: Refusal of Court PO Haldol Last Admin: 03/06/24 20:53 Dose: 10 mg Haloperidol Lactate (Haloperidol Lactate Oral Conc 10 Mg/5 Ml Oral.Conc) 5 mg PO Q6H PRN PRN Reason: Psychosis or severe agitation Last Admin: 03/07/24 07:45 Dose: 5 mg Haloperidol Lactate (Haloperidol Lactate Oral Conc 10 Mg/5 Ml Oral.Conc) 10 mg PO BID [facility] Last Admin: 03/07/24 11:35 Dose: 10 mg Lorazepam (Lorazepam 1 Mg Tablet) 1 mg PO Q6H PRN PRN Reason: agitation Last Admin: 03/07/24 11:33 Dose: 1 mg Magnesium Hydroxide (Milk Of Magnesia 30 Ml Oral.Susp) 30 ml PO DAILY PRN PRN Reason: Constipation Nicotine Polacrilex (Nicotine Polacrilex 2 Mg Gum) 2 mg BUCCAL Q2H PRN PRN Reason: Nicotine Cravings Trazodone HCl (Trazodone Hcl 50 Mg Tablet) 50 mg PO BEDTIME MRX1 PRN PRN Reason: Insomnia Last Admin: 03/06/24 00:57 Dose: 50 mg Valproic Acid (Valproic Acid Liquid 250 Mg/5 Ml Solution) 750 mg PO BID [facility] Last Admin: 03/07/24 07:44 Dose: 750 mg Vitamin D (Cholecalciferol (Vitamin D3) 25 Mcg Tablet) 50 mcg PO DAILY [facility] Last Admin: 03/07/24 11:41 Dose: Not Given Allergies Allergies Allergy/AdvReac Type Severity Reaction Status Date / Time lithium Allergy Unknown Verified 01/13/24 18:08 Assessment & Plan Assessment & Plan (1) Schizoaffective disorder, bipolar type: Status: Acute Code(s): F25.0 - Schizoaffective disorder, bipolar type (2) Hypertension: Status: Acute Code(s): I10 - Essential (primary) hypertension (3) Diabetes mellitus: Status: Acute Code(s): E11.9 - Type 2 diabetes mellitus without complications Plan 68 yo from a snf with chronic psychotic disorder, refusing medication , elevated bp and disorganized and agitated behavior requiring psychiatric hospitalization and treatment not competent to sign cv. 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 Provide care as he will allow. 01/16: Depakote 250 mg bid Haldol, Lorazepam, Benadryl prn Section 7 to be filed 01/17 Message left for guardian. 01/17: Section Seven filed. . Court scheduled 01/26/24 Pt continues to refuse medicaitons. He is in need of full assist with ADL's and is incontinent. Pt transferred to [facility] this afternoon. 01/19/2024 Patient pending civil commitment loud agitated would not engage in any conversation with this movie writer non informational healing agitated verbally aggressive. Every attempt being made to get a copy of the patient's Servin order unclear why this has been so problematic. Encourage food and fluids 01/19 continue same treatment 01/21/24 Patient labile agitated intrusive close labs ordered in order to per to protect the community patient wandering into patient's rooms intrusive impulsive laying on another person's bed. Often hostile agitated posturing at times we are still pending copy of reported Servin order encourage p.o. compliance 01/22/2024 Patient did require physical hold escort him out of a room that he jumped in other patient's room and on their bed while there were in it. There was no physical harm and the patient did leave the room his markedly impulsive with poor judgment remains on close observation has intermittently taken Haldol liquid pending civil commitment treatment plan there is a question of Servin order 01/22 The patient had been more agitated. We review his Servin order and we are increasing the Abilify up to 15 mg p.o. daily and adding Haldol p.r.n. since it is in his role years order. We needed to give him some p.r.n. at 14:00. 01/23 The patient is grossly psychotic disrobing and sexually disinhibited we are starting Haldol 2 mg p.o. t.i.d. to target psychosis as per court order treatment over objection order. 01/24 The patient remains very agitated and angry disruptive so we are increasing the Haldol from 2 mg to 5 mg p.o. t.i.d. with a backup IM if the patient refused as per court order. 01/25 we have increased the Haldol but still he is very psychotic and restless. Today he refused his blood work. He needed to be physically held twice. 01/26 the patient remains agitated at times but his last IM backup was yesterday. We are going to increase Abilify up to 20 mg daily to target mood lability and psychosis. 01/29/2024: Increase frequency of prn doses from tid to prn q 6mrs. Poor insight and unable to care for self 02/08 pt has not take any of mood stabilizer. continues to have poor sleep, intrusive and combative requiring IM medications, increase haldol 10mg po TID, back up IM. Will add ativan 1mg po TID, also back up IM. Labs show elevated CK 2300, BUN 20, Cr 1.80, unclear baseline Cr as he does have CKD. Discussed with hospitalist Dr. Gama, to give IV fluids and monitor labs tomorrow. LFTs also elevated suspect this is secondary to elevation in CK and should trend down as CK goes down. 02/09 still agitated, creatinine and CPK slightly high as yesterday, he removed his IV line there is no big difference with IV hydration. We are changing his community role years to have more options since it is not working Abilify and Haldol 02/10 3 chemical restraints yesterday. appears more combative, and somewhat more confused. Will decrease amount of benzo and antihistamine given to him as it seems to be backfiring. did discuss with ICU attending, Dr. Whiteside possibility of transferring there but they would like us to try IV depakote and exhaust all resources prior to considering transfer. Pt did take depakote springkle 1000mg with apple sauce with much encourage. 02/11 continue tx. 02/12 continue same treatment 01/14 continue with Abilify and other court order medications, we are Namenda and the court order. 02/14 Team report improvement today with pt having greater comfort and less agitation. [id number] the staff reported that the patient had been less violent in the last 24 hours 02/16 continue tx. will check depakote and ammonia on 02/17 in AM. 02/17 continue regime and plan of care 02/26/2024: Continue current regimen as per court order 03/03 continue tx. lactulose for now as we don't have new ammonia level, but will try to chack labs. Plan 1. Continue with Abilify and Haldol as per court order. 2. Blood work ordered today but the patient refused. 3. The patient is still less aggressive but still psychotic will follow closely. Still grossly psychotic and so far he has had 15 restraints in the unit we are waiting for the court order to change his court order treatment plan Reason for continued inpatient stay Substantial Risk for: inability to function, rapid decompensation and med/psych decompensation Time Spent With Patient Time: Total time managing care of this patient today _20___ minutes.
[2024-03-07] MEDS: Haloperidol Lactate 5 MG/ML VIAL 10 MG IM (21:33)
[2024-03-08] MEDS: Valproic Acid Liquid 250 MG/5 ML SOLUTION 750 MG PO ×2 (10:10→20:10)
[2024-03-08] MEDS: Haloperidol Lactate Oral Conc 10 MG/5 ML ORAL.CONC PO (10:10)
--- NOTE | 2024-03-08 15:48 | P.PNPSI_ITS ---
Subjective Subjective Date of Service: 03/08/24 Reason For Visit: Schizoaffective disorder Subjective Notes: Conditional Voluntary Interim History: The nursing staff reported the patient had been disorganized, less agitated slept all night. He refused all his Haldol and took only Depakote. On interview the patient had been confused but redirectable. Mental Status Exam Mental Status Exam Patient Appearance: Appropriate Patient Orientation: Person Level of Consciousness: Awake Patient Behavior: Guarded and Passive Mood Description: Withdrawn Affect Description: Constricted Patient Cognition Impaired: Yes Ability to Follow Directions: Good Speech Pattern: Clear Hallucinations: None Delusions: Paranoid Ideation and Ideas of Reference Thought Process: Illogical, Distracted and Slowed Thinking Thought Content: positive for [place] and positive for Poverty of Content Judgement: Poor Diagnostics Vital Signs (24Hr): BMI result Body Mass Index 25.1 Labs 03/05/24 12:49 03/05/24 12:49 Medications Medications Current Medications Acetaminophen (Acetaminophen 325 Mg Tablet) 650 mg PO Q6H PRN PRN Reason: Headache/Pain Mild Scale (1-3) Last Admin: 01/17/24 23:53 Dose: 325 mg Al Hydroxide/Mg Hydroxide (Magnesium Hydrox/Alum Hydrox 30 Ml Oral.Susp) 30 ml PO Q6H PRN PRN Reason: Heartburn/Nausea Amlodipine Besylate (Amlodipine Besylate 10 Mg Tablet) 10 mg PO DAILY [facility]; Protocol Last Admin: 03/08/24 10:09 Dose: Not Given Aspirin (Aspirin 81 Mg Tab.Chew) 81 mg PO DAILY [facility] Last Admin: 03/08/24 10:10 Dose: Not Given Atorvastatin Calcium (Atorvastatin Calcium 40 Mg Tablet) 40 mg PO DAILY [facility] Last Admin: 03/08/24 10:09 Dose: Not Given Carbamazepine (Carbamazepine 200 Mg Tablet) 200 mg PO BID [facility] Last Admin: 03/08/24 10:09 Dose: Not Given Clonidine (Clonidine 0.2 Mg Patch.Tdwk) 0.2 mg TRANSDERMA Fr@0900 [facility]; Protocol Last Admin: 03/02/24 08:42 Dose: Not Given Ferrous Sulfate (Ferrous Sulfate 324 Mg Tablet.) 324 mg PO BID [facility] Last Admin: 03/08/24 10:10 Dose: Not Given Haloperidol Lactate (Haloperidol Lactate 5 Mg/Ml Vial) 10 mg IM BID PRN PRN Reason: Refusal of Court PO Haldol Last Admin: 03/07/24 21:33 Dose: 10 mg Haloperidol Lactate (Haloperidol Lactate Oral Conc 10 Mg/5 Ml Oral.Conc) 5 mg PO Q6H PRN PRN Reason: Psychosis or severe agitation Last Admin: 03/07/24 07:45 Dose: 5 mg Haloperidol Lactate (Haloperidol Lactate Oral Conc 10 Mg/5 Ml Oral.Conc) 10 mg PO BID [facility] Last Admin: 03/08/24 10:10 Dose: 10 mg Lorazepam (Lorazepam 1 Mg Tablet) 1 mg PO Q6H PRN PRN Reason: agitation Last Admin: 03/07/24 11:33 Dose: 1 mg Magnesium Hydroxide (Milk Of Magnesia 30 Ml Oral.Susp) 30 ml PO DAILY PRN PRN Reason: Constipation Nicotine Polacrilex (Nicotine Polacrilex 2 Mg Gum) 2 mg BUCCAL Q2H PRN PRN Reason: Nicotine Cravings Trazodone HCl (Trazodone Hcl 50 Mg Tablet) 50 mg PO BEDTIME MRX1 PRN PRN Reason: Insomnia Last Admin: 03/06/24 00:57 Dose: 50 mg Valproic Acid (Valproic Acid Liquid 250 Mg/5 Ml Solution) 750 mg PO BID [facility] Last Admin: 03/08/24 10:10 Dose: 750 mg Vitamin D (Cholecalciferol (Vitamin D3) 25 Mcg Tablet) 50 mcg PO DAILY [facility] Last Admin: 03/08/24 10:10 Dose: Not Given Allergies Allergies Allergy/AdvReac Type Severity Reaction Status Date / Time lithium Allergy Unknown Verified 01/13/24 18:08 Assessment & Plan Assessment & Plan (1) Schizoaffective disorder, bipolar type: Status: Acute Code(s): F25.0 - Schizoaffective disorder, bipolar type (2) Hypertension: Status: Acute Code(s): I10 - Essential (primary) hypertension (3) Diabetes mellitus: Status: Acute Code(s): E11.9 - Type 2 diabetes mellitus without complications Plan 68 yo from a shelter with chronic psychotic disorder, refusing medication , elevated bp and disorganized and agitated behavior requiring psychiatric hospitalization and treatment not competent to sign cv. 01/14 continue to follow - gave lambs warning today- and he says the director radiation oncology will be a she- still refusing medications and quite psychotic takes alot of redirection to settle him poor adls- 01/15- Refuses meds, refuses hospitalist consult-second day File for Section Seven consideration on 01/17. Provide care as he will allow. 01/16: Depakote 250 mg bid Haldol, Lorazepam, Benadryl prn Section 7 to be filed 01/17 Message left for guardian. 01/17: Section Seven filed. . Court scheduled 01/26/24 Pt continues to refuse medicaitons. He is in need of full assist with ADL's and is incontinent. Pt transferred to [facility] this afternoon. 01/19/2024 Patient pending civil commitment loud agitated would not engage in any conversation with this blog writer non informational healing agitated verbally aggressive. Every attempt being made to get a copy of the patient's Servin order unclear why this has been so problematic. Encourage food and fluids 01/19 continue same treatment 01/21/24 Patient labile agitated intrusive close labs ordered in order to per to protect the community patient wandering into patient's rooms intrusive impulsive laying on another person's bed. Often hostile agitated posturing at times we are still pending copy of reported Servin order encourage p.o. compliance 01/22/2024 Patient did require physical hold escort him out of a room that he jumped in other patient's room and on their bed while there were in it. There was no physical harm and the patient did leave the room his markedly impulsive with poor judgment remains on close observation has intermittently taken Haldol liquid pending civil commitment treatment plan there is a question of Servin order 01/22 The patient had been more agitated. We review his Servin order and we are increasing the Abilify up to 15 mg p.o. daily and adding Haldol p.r.n. since it is in his role years order. We needed to give him some p.r.n. at 14:00. 01/23 The patient is grossly psychotic disrobing and sexually disinhibited we are starting Haldol 2 mg p.o. t.i.d. to target psychosis as per court order treatment over objection order. 01/24 The patient remains very agitated and angry disruptive so we are increasing the Haldol from 2 mg to 5 mg p.o. t.i.d. with a backup IM if the patient refused as per court order. 12/5 we have increased the Haldol but still he is very psychotic and restless. Today he refused his blood work. He needed to be physically held twice. 01/26 the patient remains agitated at times but his last IM backup was yesterday. We are going to increase Abilify up to 20 mg daily to target mood lability and psychosis. 01/29/2024: Increase frequency of prn doses from tid to prn q 6mrs. Poor insight and unable to care for self 02/08 pt has not take any of mood stabilizer. continues to have poor sleep, intrusive and combative requiring IM medications, increase haldol 10mg po TID, back up IM. Will add ativan 1mg po TID, also back up IM. Labs show elevated CK 2300, BUN 20, Cr 1.80, unclear baseline Cr as he does have CKD. Discussed with hospitalist Dr. Gama, to give IV fluids and monitor labs tomorrow. LFTs also elevated suspect this is secondary to elevation in CK and should trend down as CK goes down. 02/09 still agitated, creatinine and CPK slightly high as yesterday, he removed his IV line there is no big difference with IV hydration. We are changing his community role years to have more options since it is not working Abilify and Haldol 02/10 3 chemical restraints yesterday. appears more combative, and somewhat more confused. Will decrease amount of benzo and antihistamine given to him as it seems to be backfiring. did discuss with ICU attending, Dr. Whiteside possibility of transferring there but they would like us to try IV depakote and exhaust all resources prior to considering transfer. Pt did take depakote springkle 1000mg with apple sauce with much encourage. 02/11 continue tx. 02/12 continue same treatment 01/14 continue with Abilify and other court order medications, we are Namenda and the court order. 02/14 Team report improvement today with pt having greater comfort and less agitation. 1126 the staff reported that the patient had been less violent in the last 24 hours 02/16 continue tx. will check depakote and ammonia on 02/17 in AM. 02/17 continue regime and plan of care 02/26/2024: Continue current regimen as per court order 03/03 continue tx. lactulose for now as we don't have new ammonia level, but will try to chack labs. Plan 1. Continue with Abilify and Haldol as per court order. 2. Blood work ordered today but the patient refused. 3. The patient is still less aggressive but still psychotic will follow closely. Still grossly psychotic and so far he has had 15 restraints in the unit we are waiting for the court order to change his court order treatment plan Reason for continued inpatient stay Substantial Risk for: inability to function, rapid decompensation and med/psych decompensation Time Spent With Patient Time: Total time managing care of this patient today __20__ minutes.
[2024-03-08 20:00] VITALS: BP 152/70; PULSE 112; RESP 16; TEMP 37.1; O2SAT 99
[2024-03-08] MEDS: Haloperidol Lactate 5 MG/ML VIAL 10 MG IM (20:09)
[2024-03-08] MEDS: carBAMazepine 200 MG TABLET PO (20:10)
[2024-03-08] MEDS: LORazepam 1 MG TABLET PO (20:11)
[2024-03-09] MEDS: Haloperidol Lactate Oral Conc 10 MG/5 ML ORAL.CONC 5 MG PO ×2 (02:18→17:35)
[2024-03-09] MEDS: traZODone HCL 50 MG TABLET PO (02:18)
[2024-03-09] MEDS: Haloperidol Lactate 5 MG/ML VIAL 10 MG IM ×2 (08:08→23:25)
--- NOTE | 2024-03-09 08:29 | HO.PSYEVENT ---
Event Note Date of Service: 03/09/24 Psych Restraint Event Note: The patient was pacing in the hallway grossly disorganized, refused to take his p.o. medications as per court order so he needed to be physically hold for IM Haldol. Vital signs within normal limits no injuries. Time Spent With Patient Time: Total time managing care of this patient today __20__ minutes.
[2024-03-09] MEDS: chlorproMAZINE HCl 25 MG/ML AMPUL 100 MG IM (08:34)
[2024-03-09] MEDS: LORazepam 2 MG/ML VIAL IM (08:35)
--- NOTE | 2024-03-09 08:47 | HO.PSYEVENT ---
Event Note Date of Service: 03/09/24 Psych Restraint Event Note: 2nd restraint in less than 1 hour got agitated, not responding to direction verbally, needed to be escorted to his room, now chemical restraint with Thorazine and ATivna. \ VS stable, no injuries noted Time Spent With Patient Time: Total time managing care of this patient today _20___ minutes.
--- NOTE | 2024-03-09 10:02 | HO.PSYCHPN ---
Subjective Subjective Date of Service: 03/09/24 Reason For Visit: Schizoaffective disorder Subjective Notes: Section 7 and Section 8 Interim History: The nursing staff reported the patient was sedated in the evening but today in the morning he woke up very agitated. He refused his medications in the morning and needed to physically held and given Haldol IM. Later on 10 10 minutes after he was exit seeking very restless so we need to chemically and physically restrained him with Thorazine. At the moment of the interview the patient was sedated still grossly psychotic. Mental Status Exam Mental Status Exam Patient Appearance: Well Grooomed Patient Orientation: Person and Situation Level of Consciousness: Awake and Appropriate Patient Behavior: Aggressive and Restless Mood Description: Calm Affect Description: Blunted Patient Cognition Impaired: Yes Ability to Follow Directions: Poor Speech Pattern: Impoverished Hallucinations: None Delusions: Not Present Thought Process: Distracted and Slowed Thinking Thought Content: positive for [place] and positive for Circumstantial Judgement: Poor Diagnostics Vital Signs (24Hr): Vital Signs - 24 hr 03/08/24 20:00 Temperature 98.8 F Pulse Rate 112 H Respiratory Rate 16 Blood Pressure 152/70 H Pulse Oximetry 99 Oxygen Delivery Method Room Air BMI result Body Mass Index 25.1 Labs 03/05/24 12:49 03/05/24 12:49 Medications Medications Current Medications Acetaminophen (Acetaminophen 325 Mg Tablet) 650 mg PO Q6H PRN PRN Reason: Headache/Pain Mild Scale (1-3) Last Admin: 01/17/24 23:53 Dose: 325 mg Al Hydroxide/Mg Hydroxide (Magnesium Hydrox/Alum Hydrox 30 Ml Oral.Susp) 30 ml PO Q6H PRN PRN Reason: Heartburn/Nausea Amlodipine Besylate (Amlodipine Besylate 10 Mg Tablet) 10 mg PO DAILY [facility]; Protocol Last Admin: 03/09/24 08:52 Dose: Not Given Aspirin (Aspirin 81 Mg Tab.Chew) 81 mg PO DAILY [facility] Last Admin: 03/09/24 08:53 Dose: Not Given Atorvastatin Calcium (Atorvastatin Calcium 40 Mg Tablet) 40 mg PO DAILY [facility] Last Admin: 03/09/24 08:53 Dose: Not Given Carbamazepine (Carbamazepine 200 Mg Tablet) 200 mg PO BID [facility] Last Admin: 03/09/24 08:53 Dose: Not Given Clonidine (Clonidine 0.2 Mg Patch.Tdwk) 0.2 mg TRANSDERMA Fr@0900 [facility]; Protocol Last Admin: 03/02/24 08:42 Dose: Not Given Ferrous Sulfate (Ferrous Sulfate 324 Mg Tablet.Dr) 324 mg PO BID [facility] Last Admin: 03/09/24 08:54 Dose: Not Given Haloperidol Lactate (Haloperidol Lactate 5 Mg/Ml Vial) 10 mg IM BID PRN PRN Reason: Refusal of Court PO Haldol Last Admin: 03/09/24 08:08 Dose: 10 mg Haloperidol Lactate (Haloperidol Lactate Oral Conc 10 Mg/5 Ml Oral.Conc) 5 mg PO Q6H PRN PRN Reason: Psychosis or severe agitation Last Admin: 03/09/24 02:18 Dose: 5 mg Haloperidol Lactate (Haloperidol Lactate Oral Conc 10 Mg/5 Ml Oral.Conc) 10 mg PO BID [facility] Last Admin: 03/09/24 08:54 Dose: Not Given Lorazepam (Lorazepam 1 Mg Tablet) 1 mg PO Q6H PRN PRN Reason: agitation Last Admin: 03/08/24 20:11 Dose: 1 mg Magnesium Hydroxide (Milk Of Magnesia 30 Ml Oral.Susp) 30 ml PO DAILY PRN PRN Reason: Constipation Nicotine Polacrilex (Nicotine Polacrilex 2 Mg Gum) 2 mg BUCCAL Q2H PRN PRN Reason: Nicotine Cravings Trazodone HCl (Trazodone Hcl 50 Mg Tablet) 50 mg PO BEDTIME MRX1 PRN PRN Reason: Insomnia Last Admin: 03/09/24 02:18 Dose: 50 mg Valproic Acid (Valproic Acid Liquid 250 Mg/5 Ml Solution) 750 mg PO BID [facility] Last Admin: 03/09/24 08:54 Dose: Not Given Vitamin D (Cholecalciferol (Vitamin D3) 25 Mcg Tablet) 50 mcg PO DAILY [facility] Last Admin: 03/09/24 08:53 Dose: Not Given Allergies Allergies Allergy/AdvReac Type Severity Reaction Status Date / Time lithium Allergy Unknown Verified 01/13/24 18:08 Assessment & Plan Assessment & Plan (1) Schizoaffective disorder, bipolar type: Status: Acute Code(s): F25.0 - Schizoaffective disorder, bipolar type (2) Hypertension: Status: Acute Code(s): I10 - Essential (primary) hypertension (3) Diabetes mellitus: Status: Acute Code(s): E11.9 - Type 2 diabetes mellitus without complications Plan 68 yo from a alf with chronic psychotic disorder, refusing medication , elevated bp and disorganized and agitated behavior requiring psychiatric hospitalization and treatment not competent to sign cv. 01/14 continue to follow - gave lambs warning today- and he says the crimping machine operator for metal will be a she- still refusing medications and quite psychotic takes alot of redirection to settle him poor adls- 01/15- Refuses meds, refuses hospitalist consult-second day File for Section Seven consideration on 01/17. Provide care as he will allow. 01/16: Depakote 250 mg bid Haldol, Lorazepam, Benadryl prn Section 7 to be filed 01/17 Message left for guardian. 01/17: Section Seven filed. . Court scheduled 01/26/24 Pt continues to refuse medicaitons. He is in need of full assist with ADL's and is incontinent. Pt transferred to [facility] this afternoon. 01/19/2024 Patient pending civil commitment loud agitated would not engage in any conversation with this fha underwriter non informational healing agitated verbally aggressive. Every attempt being made to get a copy of the patient's Servin order unclear why this has been so problematic. Encourage food and fluids 01/19 continue same treatment 01/21/24 Patient labile agitated intrusive close labs ordered in order to per to protect the community patient wandering into patient's rooms intrusive impulsive laying on another person's bed. Often hostile agitated posturing at times we are still pending copy of reported Servin order encourage p.o. compliance 01/22/2024 Patient did require physical hold escort him out of a room that he jumped in other patient's room and on their bed while there were in it. There was no physical harm and the patient did leave the room his markedly impulsive with poor judgment remains on close observation has intermittently taken Haldol liquid pending civil commitment treatment plan there is a question of Servin order 01/22 The patient had been more agitated. We review his Servin order and we are increasing the Abilify up to 15 mg p.o. daily and adding Haldol p.r.n. since it is in his role years order. We needed to give him some p.r.n. at 14:00. 01/23 The patient is grossly psychotic disrobing and sexually disinhibited we are starting Haldol 2 mg p.o. t.i.d. to target psychosis as per court order treatment over objection order. 01/24 The patient remains very agitated and angry disruptive so we are increasing the Haldol from 2 mg to 5 mg p.o. t.i.d. with a backup IM if the patient refused as per court order. 01/25 we have increased the Haldol but still he is very psychotic and restless. Today he refused his blood work. He needed to be physically held twice. 01/26 the patient remains agitated at times but his last IM backup was yesterday. We are going to increase Abilify up to 20 mg daily to target mood lability and psychosis. 01/29/2024: Increase frequency of prn doses from tid to prn q 6mrs. Poor insight and unable to care for self 02/08 pt has not take any of mood stabilizer. continues to have poor sleep, intrusive and combative requiring IM medications, increase haldol 10mg po TID, back up IM. Will add ativan 1mg po TID, also back up IM. Labs show elevated CK 2300, BUN 20, Cr 1.80, unclear baseline Cr as he does have CKD. Discussed with hospitalist Dr. Gama, to give IV fluids and monitor labs tomorrow. LFTs also elevated suspect this is secondary to elevation in CK and should trend down as CK goes down. 02/09 still agitated, creatinine and CPK slightly high as yesterday, he removed his IV line there is no big difference with IV hydration. We are changing his community role years to have more options since it is not working Abilify and Haldol 02/10 3 chemical restraints yesterday. appears more combative, and somewhat more confused. Will decrease amount of benzo and antihistamine given to him as it seems to be backfiring. did discuss with ICU attending, Dr. Whiteside possibility of transferring there but they would like us to try IV depakote and exhaust all resources prior to considering transfer. Pt did take depakote springkle 1000mg with apple sauce with much encourage. 02/11 continue tx. 02/12 continue same treatment 01/14 continue with Abilify and other court order medications, we are Namenda and the court order. 02/14 Team report improvement today with pt having greater comfort and less agitation. 1126 the staff reported that the patient had been less violent in the last 24 hours 02/16 continue tx. will check depakote and ammonia on 02/17 in AM. 02/17 continue regime and plan of care 02/26/2024: Continue current regimen as per court order 03/03 continue tx. lactulose for now as we don't have new ammonia level, but will try to chack labs. Plan 1. Continue with Abilify and Haldol as per court order. 2. Blood work ordered today but the patient refused. 3. The patient is still less aggressive but still psychotic will follow closely. Still grossly psychotic and so far he has had 15 restraints in the unit we are waiting for the court order to change his court order treatment plan Reason for continued inpatient stay Substantial Risk for: inability to function, rapid decompensation and med/psych decompensation Time Spent With Patient Time: Total time managing care of this patient today ___20_ minutes.
--- NOTE | 2024-03-09 12:31 | PC.NURSE ---
Addendum entered by Danielle Gordon RN 03/09/24 13:00: Guardian, Jessica Zhao updated via telephone at 09:03.m,,mPt. continues on close observation. Original Note: Pt. declined court ordered haloperidol ordered for 9 AM. Pt. resisted administration of IM medication, requiring physical hold. Pt. had no apparent physical/psychological effects from event.
--- NOTE | 2024-03-09 13:00 | PC.NURSE ---
Pt. preoccupied with area in front of social work office and OT room. Blocking doorway, preventing staff from exiting and posturing in a threatening manner to staff attempting to redirect him. Duress call initiated. Pt. offered food, fluids, PO PRN, and music with no effect. Pt walked under his own power, but escorted by staff and security to the sensory room. Pt. continued to threaten staff and attempt to return to social work and OT office doors. ordered med restraint of 2 mg lorazepam and 100 mg. Thorazine, which were administered with a physical hold from 08:34-08:35. Guardian Jessica Zhao notified via telephone at 09:03. Pt. had no apparent adverse physical or psychological adverse effects. Continues on close observation.
[2024-03-09] MEDS: cloNIDine 0.2 MG PATCH.TDWK TRANSDERMA (17:56)
--- NOTE | 2024-03-09 17:58 | PC.NURSE ---
Per Dr. Watson, clonidine patch applied despite pt. refusing BP assmt. No old patch found.
[2024-03-09 19:56] VITALS: RESP 17
[2024-03-09] MEDS: LORazepam 1 MG TABLET PO (23:24)
[2024-03-09] MEDS: Valproic Acid Liquid 250 MG/5 ML SOLUTION 750 MG PO (23:30)
--- NOTE | 2024-03-09 23:55 | PC.NURSE ---
[id number] dr mejia contacted and notified 1. pt is extremely agitated and combative 2. his speech is nonsensical and confused 3. he has been intrusive entering other patients rooms and laying down on the floor 4. he has pushed and pulled at staff 6. he has marched up the hallway with clenched fists and has attempted to strike staff with closed hands 5. he is suspicious of prn medications and refuses all prns 6. he received haldol 10 mg im at [address] 6. security has been summoned to bedside and pt will be in need of a physical hold for administration of prn IM medications.-plan 1. initiate brief physical hold for IM administration 2. continue with 1 to 1 close observation 3. ativan 2 mg im to be given 4. thorazine 100 mg im to be given 5. supervisor typesetting carmelo gatica notified of chemical restraint 6. hospitalist dr zuniga notified of need for physical assessment post chemical restraint 7. will notifiy senior leadership (karina jim cherie, gisella in the morning).
--- NOTE | 2024-03-09 23:59 | HO.PSYEVENT ---
Event Note Date of Service: 03/09/24 Psych Restraint Event Note: I was called at 11:52 pm reporting that the patient was aggressive and needed chemical restraint. As per RN also needed physcial hold for the im Thorazine and Ativan. Hospitalist will be called for the assessment Time Spent With Patient Time: Total time managing care of this patient today _30___ minutes.
[2024-03-10] MEDS: LORazepam 2 MG/ML VIAL IM ×2 (00:10→00:54)
[2024-03-10] MEDS: chlorproMAZINE HCl 25 MG/ML AMPUL 100 MG IM (00:10)
--- NOTE | 2024-03-10 00:40 | PC.NURSE ---
03-10-24 0040- dr zuniga at bedside to physically pt. vital signs are stable( T 98 p 114 bpm rr 18 sao2 97% b/p 125/89) dr mejia contacted notified 1. despite ativan 2 mg im and thorazine 100 mg im pt remains agitated and kicking at staff while in the bed 2. vital signs reviewed 3. pt is uncooperative and will not follow instruction 4. pt grabbing at staff and trying to crawl over side rails -plan 1. physical hold 2. ativan 2 mg im 3. zyprexa 10 mg im- the following was implemented 1. dr zuniga contacted to followup with second post chemical restraint evaluation 2. guardian lasha garrison contacted telephone message left in regard to the use of chemical restraints over night 3. dope house operator helper carmelo gatica contacted and aware of second chemical restraint 4. will inform senior management in am of second chemical restraint.
--- NOTE | 2024-03-10 00:45 | HO.PSYEVENT ---
Event Note Date of Service: 03/10/24 Psych Restraint Event Note: I was called again 30 minutes later, still agitated, ordered a 2nd set of Ativan 2 mg IM and now Zyprexa 10 IM Hositalist was called to assess Time Spent With Patient Time: Total time managing care of this patient today __30__ minutes.
[2024-03-10] MEDS: OLANZapine 10 MG VIAL IM (00:53)
--- NOTE | 2024-03-10 00:53 | HO.BHRESTREX ---
Behavioral Restraint Exam Behavioral Health Restraint Exam Type of Restraint: Medication Reason for Restraint: Substantial Risk of Harm to Others Medical Concerns for Restraint: No medical concerns, pt w/o acute inj / no noted resp/VS abnormalities Behavioral Assessment / Plan: No further behavioral concerns, continue current plan.
--- NOTE | 2024-03-10 01:15 | PC.NURSE ---
[id number] dr mejia contacted and notified 1. pt is extremely agitated and combative 2. his speech is nonsensical and confused 3. he has been intrusive entering other patients rooms and laying down on the floor 4. he has pushed and pulled at staff 6. he has marched up the hallway with clenched fists and has attempted to strike staff with closed hands 5. he is suspicious of prn medications and refuses all prns 6. he received haldol 10 mg im at [address] 6. security has been summoned to bedside and pt will be in need of a physical hold for administration of prn IM medications.-plan 1. initiate brief physical hold for IM administration 2. continue with 1 to 1 close observation 3. ativan 2 mg im to be given 4. thorazine 100 mg im to be given 5. broiler supervisor carmelo gatica notified of chemical restraint 6. hospitalist dr zuniga notified of need for physical assessment post chemical restraint 7. will notifiy senior leadership (karina jim cherie, gisella in the morning). 03-10-240- dr zuniga at bedside to physically pt. vital signs are stable( T 98 p 114 bpm rr 18 sao2 97% b/p 125/89) dr mejia contacted notified 1. despite ativan 2 mg im and thorazine 100 mg im pt remains agitated and kicking at staff while in the bed 2. vital signs reviewed 3. pt is uncooperative and will not follow instruction 4. pt grabbing at staff and trying to crawl over side rails -plan 1. physical hold 2. ativan 2 mg im 3. zyprexa 10 mg im- the following was implemented 1. dr zuniga contacted to followup with second post chemical restraint evaluation 2. guardian lasha baileywaqas contacted telephone message left in regard to the use of chemical restraints over night 3. warehouse inventory clerk carmelo gatica contacted and aware of second chemical restraint 4. will inform senior management in am of second chemical restraint.
--- NOTE | 2024-03-10 06:54 | HO.PSYCHPN ---
Subjective Subjective Date of Service: 03/10/24 Reason For Visit: Schizoaffective disorder Subjective Notes: Section 7 and Section 8 Interim History: The patient had been agitated last night, he needed to be chemically and physically restrained twice. At this moment the patient is sedated, impulsive as per nursing report. Mental Status Exam Mental Status Exam Patient Appearance: Unkempt Patient Orientation: Person Level of Consciousness: Drowsy and Lethargic Patient Behavior: Guarded and Passive Mood Description: Withdrawn Affect Description: Blunted Patient Cognition Impaired: Yes Ability to Follow Directions: Fair Speech Pattern: Impoverished Hallucinations: None Delusions: Not Present Thought Process: Distracted and Slowed Thinking Thought Content: positive for [place] and positive for Poverty of Content Judgement: Poor Diagnostics Vital Signs (24Hr): Vital Signs - 24 hr 03/09/24 19:56 Respiratory Rate 17 BMI result Body Mass Index 25.1 Labs 03/05/24 12:49 03/05/24 12:49 Medications Medications Current Medications Acetaminophen (Acetaminophen 325 Mg Tablet) 650 mg PO Q6H PRN PRN Reason: Headache/Pain Mild Scale (1-3) Last Admin: 01/17/24 23:53 Dose: 325 mg Al Hydroxide/Mg Hydroxide (Magnesium Hydrox/Alum Hydrox 30 Ml Oral.Susp) 30 ml PO Q6H PRN PRN Reason: Heartburn/Nausea Amlodipine Besylate (Amlodipine Besylate 10 Mg Tablet) 10 mg PO DAILY [facility]; Protocol Last Admin: 03/09/24 08:52 Dose: Not Given Aspirin (Aspirin 81 Mg Tab.Chew) 81 mg PO DAILY [facility] Last Admin: 03/09/24 08:53 Dose: Not Given Atorvastatin Calcium (Atorvastatin Calcium 40 Mg Tablet) 40 mg PO DAILY [facility] Last Admin: 03/09/24 08:53 Dose: Not Given Carbamazepine (Carbamazepine 200 Mg Tablet) 200 mg PO BID [facility] Last Admin: 03/09/24 22:24 Dose: Not Given Clonidine (Clonidine 0.2 Mg Patch.Tdwk) 0.2 mg TRANSDERMA Fr@0900 [facility]; Protocol Last Admin: 03/09/24 17:56 Dose: 0.2 mg Ferrous Sulfate (Ferrous Sulfate 324 Mg Tablet.) 324 mg PO BID [facility] Last Admin: 03/09/24 22:24 Dose: Not Given Haloperidol Lactate (Haloperidol Lactate 5 Mg/Ml Vial) 10 mg IM BID PRN PRN Reason: Refusal of Court PO Haldol Last Admin: 03/09/24 23:25 Dose: 10 mg Haloperidol Lactate (Haloperidol Lactate Oral Conc 10 Mg/5 Ml Oral.Conc) 5 mg PO Q6H PRN PRN Reason: Psychosis or severe agitation Last Admin: 03/09/24 17:35 Dose: 5 mg Haloperidol Lactate (Haloperidol Lactate Oral Conc 10 Mg/5 Ml Oral.Conc) 10 mg PO BID [facility] Last Admin: 03/09/24 22:24 Dose: Not Given Lorazepam (Lorazepam 1 Mg Tablet) 1 mg PO Q6H PRN PRN Reason: agitation Last Admin: 03/09/24 23:24 Dose: 1 mg Magnesium Hydroxide (Milk Of Magnesia 30 Ml Oral.Susp) 30 ml PO DAILY PRN PRN Reason: Constipation Nicotine Polacrilex (Nicotine Polacrilex 2 Mg Gum) 2 mg BUCCAL Q2H PRN PRN Reason: Nicotine Cravings Trazodone HCl (Trazodone Hcl 50 Mg Tablet) 50 mg PO BEDTIME MRX1 PRN PRN Reason: Insomnia Last Admin: 03/09/24 02:18 Dose: 50 mg Valproic Acid (Valproic Acid Liquid 250 Mg/5 Ml Solution) 750 mg PO BID [facility] Last Admin: 03/09/24 23:30 Dose: 750 mg Vitamin D (Cholecalciferol (Vitamin D3) 25 Mcg Tablet) 50 mcg PO DAILY [facility] Last Admin: 03/09/24 08:53 Dose: Not Given Allergies Allergies Allergy/AdvReac Type Severity Reaction Status Date / Time lithium Allergy Unknown Verified 01/13/24 18:08 Assessment & Plan Assessment & Plan (1) Schizoaffective disorder, bipolar type: Status: Acute Code(s): F25.0 - Schizoaffective disorder, bipolar type (2) Hypertension: Status: Acute Code(s): I10 - Essential (primary) hypertension (3) Diabetes mellitus: Status: Acute Code(s): E11.9 - Type 2 diabetes mellitus without complications Plan 68 yo from a intermediate with chronic psychotic disorder, refusing medication , elevated bp and disorganized and agitated behavior requiring psychiatric hospitalization and treatment not competent to sign cv. 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 Provide care as he will allow. 01/16: Depakote 250 mg bid Haldol, Lorazepam, Benadryl prn Section 7 to be filed 01/17 Message left for guardian. 01/17: Section Seven filed. . Court scheduled 01/26/24 Pt continues to refuse medicaitons. He is in need of full assist with ADL's and is incontinent. Pt transferred to [facility] this afternoon. 01/19/2024 Patient pending civil commitment loud agitated would not engage in any conversation with this quality analyst/technical writer non informational healing agitated verbally aggressive. Every attempt being made to get a copy of the patient's Servin order unclear why this has been so problematic. Encourage food and fluids 01/19 continue same treatment 01/21/24 Patient labile agitated intrusive close labs ordered in order to per to protect the community patient wandering into patient's rooms intrusive impulsive laying on another person's bed. Often hostile agitated posturing at times we are still pending copy of reported Servin order encourage p.o. compliance 01/22/2024 Patient did require physical hold escort him out of a room that he jumped in other patient's room and on their bed while there were in it. There was no physical harm and the patient did leave the room his markedly impulsive with poor judgment remains on close observation has intermittently taken Haldol liquid pending civil commitment treatment plan there is a question of Servin order 01/22 The patient had been more agitated. We review his Servin order and we are increasing the Abilify up to 15 mg p.o. daily and adding Haldol p.r.n. since it is in his role years order. We needed to give him some p.r.n. at 14:00. 01/23 The patient is grossly psychotic disrobing and sexually disinhibited we are starting Haldol 2 mg p.o. t.i.d. to target psychosis as per court order treatment over objection order. 01/24 The patient remains very agitated and angry disruptive so we are increasing the Haldol from 2 mg to 5 mg p.o. t.i.d. with a backup IM if the patient refused as per court order. 01/25 we have increased the Haldol but still he is very psychotic and restless. Today he refused his blood work. He needed to be physically held twice. 01/26 the patient remains agitated at times but his last IM backup was yesterday. We are going to increase Abilify up to 20 mg daily to target mood lability and psychosis. 01/29/2024: Increase frequency of prn doses from tid to prn q 6mrs. Poor insight and unable to care for self 02/08 pt has not take any of mood stabilizer. continues to have poor sleep, intrusive and combative requiring IM medications, increase haldol 10mg po TID, back up IM. Will add ativan 1mg po TID, also back up IM. Labs show elevated CK 2300, BUN 20, Cr 1.80, unclear baseline Cr as he does have CKD. Discussed with hospitalist Dr. Gama, to give IV fluids and monitor labs tomorrow. LFTs also elevated suspect this is secondary to elevation in CK and should trend down as CK goes down. 02/09 still agitated, creatinine and CPK slightly high as yesterday, he removed his IV line there is no big difference with IV hydration. We are changing his community role years to have more options since it is not working Abilify and Haldol 02/10 3 chemical restraints yesterday. appears more combative, and somewhat more confused. Will decrease amount of benzo and antihistamine given to him as it seems to be backfiring. did discuss with ICU attending, Dr. Whiteside possibility of transferring there but they would like us to try IV depakote and exhaust all resources prior to considering transfer. Pt did take depakote springkle 1000mg with apple sauce with much encourage. 02/11 continue tx. 02/12 continue same treatment 01/14 continue with Abilify and other court order medications, we are Namenda and the court order. 02/14 Team report improvement today with pt having greater comfort and less agitation. 1126 the staff reported that the patient had been less violent in the last 24 hours 02/16 continue tx. will check depakote and ammonia on 02/17 in AM. 02/17 continue regime and plan of care 02/26/2024: Continue current regimen as per court order 03/03 continue tx. lactulose for now as we don't have new ammonia level, but will try to chack labs. Plan 1. Continue with Abilify and Haldol as per court order. 2. Blood work ordered today but the patient refused. 3. The patient is still less aggressive but still psychotic will follow closely. Still grossly psychotic and so far he has had 15 restraints in the unit we are waiting for the court order to change his court order treatment plan. According to the social studies teacher, the court hearing had been moved for next week. Reason for continued inpatient stay Substantial Risk for: inability to function, rapid decompensation and med/psych decompensation Time Spent With Patient Time: Total time managing care of this patient today __20__ minutes.
--- NOTE | 2024-03-10 18:06 | PC.NURSE ---
Pt slid himself onto floor and fell forward tapping his forehead on side table, VSS, no redness, swelling or pain noted. This situation was witnessed by staff. will continue to monitor and assess
[2024-03-10 19:00] VITALS: BP 126/54; PULSE 74; RESP 18; TEMP 36.6; O2SAT 98
[2024-03-10 20:00] VITALS: RESP 16
[2024-03-10] MEDS: Haloperidol Lactate Oral Conc 10 MG/5 ML ORAL.CONC PO (20:07)
[2024-03-10] MEDS: Valproic Acid Liquid 250 MG/5 ML SOLUTION 750 MG PO (20:07)
[2024-03-10] MEDS: carBAMazepine 200 MG TABLET PO (20:08)
[2024-03-10] MEDS: LORazepam 1 MG TABLET PO (20:08)
--- NOTE | 2024-03-11 | ECG_ITS ---
Test Reason : AMS Blood Pressure : */* mmHG Vent. Rate : 78 BPM Atrial Rate : 78 BPM P-R Int : 134 ms QRS Dur : 90 ms QT Int : 390 ms P-R-T Axes : 119 226 101 degrees QTcB Int : 444 ms Poor data quality, interpretation may be adversely affected Suspect limb lead reversal, interpretation assumes no reversal Sinus rhythm with occasional Premature ventricular complexes Lateral infarct , age undetermined Abnormal ECG No previous ECGs available Please repeat EKG Referred By: Mir Watson Electronically Signed By: SHERRIE NG MD
--- NOTE | 2024-03-11 09:31 | HO.PSYCHPN ---
Subjective Subjective Date of Service: 03/11/24 Reason For Visit: Schizoaffective disorder Subjective Notes: Section 7 and Section 8 Interim History: The nursing staff reported the patient slept on and off during the day and he was agitated in the evening but he did not needed to be chemically restrained. He took all his medications in the morning slept well all night. Vital signs are stable. On interview the patient was sedated. Mental Status Exam Mental Status Exam Patient Appearance: Unkempt Patient Orientation: Person and Situation Level of Consciousness: Lethargic Patient Behavior: Guarded and Passive Mood Description: Withdrawn Affect Description: Labile Patient Cognition Impaired: Yes Ability to Follow Directions: Good Speech Pattern: Clear Hallucinations: Auditory Delusions: Paranoid Ideation and Ideas of Reference Thought Process: Distracted and Slowed Thinking Thought Content: positive for [place] and positive for Poverty of Content Judgement: Poor Diagnostics Vital Signs (24Hr): Vital Signs - 24 hr 03/10/24 19:00 03/10/24 20:00 Temperature 98 F Pulse Rate 74 Respiratory Rate 18 16 Blood Pressure 126/54 L Pulse Oximetry 98 Oxygen Delivery Method Room Air BMI result Body Mass Index 25.1 Labs 03/05/24 12:49 03/05/24 12:49 Medications Medications Current Medications Acetaminophen (Acetaminophen 325 Mg Tablet) 650 mg PO Q6H PRN PRN Reason: Headache/Pain Mild Scale (1-3) Last Admin: 01/17/24 23:53 Dose: 325 mg Al Hydroxide/Mg Hydroxide (Magnesium Hydrox/Alum Hydrox 30 Ml Oral.Susp) 30 ml PO Q6H PRN PRN Reason: Heartburn/Nausea Amlodipine Besylate (Amlodipine Besylate 10 Mg Tablet) 10 mg PO DAILY [facility]; Protocol Last Admin: 03/10/24 08:05 Dose: Not Given Aspirin (Aspirin 81 Mg Tab.Chew) 81 mg PO DAILY [facility] Last Admin: 03/10/24 08:06 Dose: Not Given Atorvastatin Calcium (Atorvastatin Calcium 40 Mg Tablet) 40 mg PO DAILY [facility] Last Admin: 03/10/24 08:06 Dose: Not Given Carbamazepine (Carbamazepine 200 Mg Tablet) 200 mg PO BID [facility] Last Admin: 03/10/24 20:08 Dose: 200 mg Clonidine (Clonidine 0.2 Mg Patch.Tdwk) 0.2 mg TRANSDERMA Fr@0900 [facility]; Protocol Last Admin: 03/09/24 17:56 Dose: 0.2 mg Ferrous Sulfate (Ferrous Sulfate 324 Mg Tablet.Dr) 324 mg PO BID [facility] Last Admin: 03/10/24 20:08 Dose: Not Given Haloperidol Lactate (Haloperidol Lactate 5 Mg/Ml Vial) 10 mg IM BID PRN PRN Reason: Refusal of Court PO Haldol Last Admin: 03/09/24 23:25 Dose: 10 mg Haloperidol Lactate (Haloperidol Lactate Oral Conc 10 Mg/5 Ml Oral.Conc) 5 mg PO Q6H PRN PRN Reason: Psychosis or severe agitation Last Admin: 03/09/24 17:35 Dose: 5 mg Haloperidol Lactate (Haloperidol Lactate Oral Conc 10 Mg/5 Ml Oral.Conc) 10 mg PO BID [facility] Last Admin: 03/10/24 20:07 Dose: 10 mg Lorazepam (Lorazepam 1 Mg Tablet) 1 mg PO Q6H PRN PRN Reason: agitation Last Admin: 03/10/24 20:08 Dose: 1 mg Magnesium Hydroxide (Milk Of Magnesia 30 Ml Oral.Susp) 30 ml PO DAILY PRN PRN Reason: Constipation Nicotine Polacrilex (Nicotine Polacrilex 2 Mg Gum) 2 mg BUCCAL Q2H PRN PRN Reason: Nicotine Cravings Trazodone HCl (Trazodone Hcl 50 Mg Tablet) 50 mg PO BEDTIME MRX1 PRN PRN Reason: Insomnia Last Admin: 03/09/24 02:18 Dose: 50 mg Valproic Acid (Valproic Acid Liquid 250 Mg/5 Ml Solution) 750 mg PO BID [facility] Last Admin: 03/10/24 20:07 Dose: 750 mg Vitamin D (Cholecalciferol (Vitamin D3) 25 Mcg Tablet) 50 mcg PO DAILY [facility] Last Admin: 03/10/24 08:06 Dose: Not Given Allergies Allergies Allergy/AdvReac Type Severity Reaction Status Date / Time lithium Allergy Unknown Verified 01/13/24 18:08 Assessment & Plan Assessment & Plan (1) Schizoaffective disorder, bipolar type: Status: Acute Code(s): F25.0 - Schizoaffective disorder, bipolar type (2) Hypertension: Status: Acute Code(s): I10 - Essential (primary) hypertension (3) Diabetes mellitus: Status: Acute Code(s): E11.9 - Type 2 diabetes mellitus without complications Plan 68 yo from a senior living with chronic psychotic disorder, refusing medication , elevated bp and disorganized and agitated behavior requiring psychiatric hospitalization and treatment not competent to sign cv. 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 Provide care as he will allow. 01/16: Depakote 250 mg bid Haldol, Lorazepam, Benadryl prn Section 7 to be filed 01/17 Message left for guardian. 01/17: Section Seven filed. . Court scheduled 01/26/24 Pt continues to refuse medicaitons. He is in need of full assist with ADL's and is incontinent. Pt transferred to [facility] this afternoon. 01/19/2024 Patient pending civil commitment loud agitated would not engage in any conversation with this sign writer hand non informational healing agitated verbally aggressive. Every attempt being made to get a copy of the patient's Servin order unclear why this has been so problematic. Encourage food and fluids 01/19 continue same treatment 01/21/24 Patient labile agitated intrusive close labs ordered in order to per to protect the community patient wandering into patient's rooms intrusive impulsive laying on another person's bed. Often hostile agitated posturing at times we are still pending copy of reported Servin order encourage p.o. compliance 01/22/2024 Patient did require physical hold escort him out of a room that he jumped in other patient's room and on their bed while there were in it. There was no physical harm and the patient did leave the room his markedly impulsive with poor judgment remains on close observation has intermittently taken Haldol liquid pending civil commitment treatment plan there is a question of Servin order 01/22 The patient had been more agitated. We review his Servin order and we are increasing the Abilify up to 15 mg p.o. daily and adding Haldol p.r.n. since it is in his role years order. We needed to give him some p.r.n. at 14:00. 01/23 The patient is grossly psychotic disrobing and sexually disinhibited we are starting Haldol 2 mg p.o. t.i.d. to target psychosis as per court order treatment over objection order. 01/24 The patient remains very agitated and angry disruptive so we are increasing the Haldol from 2 mg to 5 mg p.o. t.i.d. with a backup IM if the patient refused as per court order. 01/25 we have increased the Haldol but still he is very psychotic and restless. Today he refused his blood work. He needed to be physically held twice. 01/26 the patient remains agitated at times but his last IM backup was yesterday. We are going to increase Abilify up to 20 mg daily to target mood lability and psychosis. 01/29/2024: Increase frequency of prn doses from tid to prn q 6mrs. Poor insight and unable to care for self 02/08 pt has not take any of mood stabilizer. continues to have poor sleep, intrusive and combative requiring IM medications, increase haldol 10mg po TID, back up IM. Will add ativan 1mg po TID, also back up IM. Labs show elevated CK 2300, BUN 20, Cr 1.80, unclear baseline Cr as he does have CKD. Discussed with hospitalist Dr. Gama, to give IV fluids and monitor labs tomorrow. LFTs also elevated suspect this is secondary to elevation in CK and should trend down as CK goes down. 02/09 still agitated, creatinine and CPK slightly high as yesterday, he removed his IV line there is no big difference with IV hydration. We are changing his community role years to have more options since it is not working Abilify and Haldol 02/10 3 chemical restraints yesterday. appears more combative, and somewhat more confused. Will decrease amount of benzo and antihistamine given to him as it seems to be backfiring. did discuss with ICU attending, Dr. Whiteside possibility of transferring there but they would like us to try IV depakote and exhaust all resources prior to considering transfer. Pt did take depakote springkle 1000mg with apple sauce with much encourage. 02/11 continue tx. 02/12 continue same treatment 01/14 continue with Abilify and other court order medications, we are Namenda and the court order. 02/14 Team report improvement today with pt having greater comfort and less agitation. 1126 the staff reported that the patient had been less violent in the last 24 hours 02/16 continue tx. will check depakote and ammonia on 02/17 in AM. 02/17 continue regime and plan of care 02/26/2024: Continue current regimen as per court order 03/03 continue tx. lactulose for now as we don't have new ammonia level, but will try to chack labs. Plan 1. Continue with Abilify and Haldol as per court order. 2. Blood work ordered today but the patient refused. 3. The patient is still less aggressive but still psychotic will follow closely. Still grossly psychotic and so far he has had 15 restraints in the unit we are waiting for the court order to change his court order treatment plan. According to the social insurance specialist, the court hearing had been moved for next week. Reason for continued inpatient stay Substantial Risk for: inability to function, rapid decompensation and med/psych decompensation Time Spent With Patient Time: Total time managing care of this patient today __20__ minutes.
[2024-03-11] MEDS: carBAMazepine 200 MG TABLET PO ×2 (11:34→21:15)
[2024-03-11] MEDS: Aspirin 81 MG TAB.CHEW PO (11:34)
[2024-03-11] MEDS: Atorvastatin Calcium 40 MG TABLET PO (11:35)
[2024-03-11] MEDS: Haloperidol Lactate Oral Conc 10 MG/5 ML ORAL.CONC PO ×2 (11:36→21:13)
[2024-03-11] MEDS: Valproic Acid Liquid 250 MG/5 ML SOLUTION 750 MG PO ×2 (11:36→21:15)
[2024-03-11 12:27] VITALS: RESP 18
[2024-03-11 15:14] VITALS: PULSE 56; RESP 12
[2024-03-11 16:38] VITALS: BP 106/58; PULSE 53; RESP 12; O2SAT 97
[2024-03-11 17:31] LABS: MANUAL DIFF FLAG NO
[2024-03-11 17:32] LABS: Basophils Percent Auto 0.5 % (0-2); Eosinophils Absolute Auto 0.1 X10*3/uL (0.0-0.4); Eosinophils Percent Auto 1.6 % (0-4); Hematocrit 35.5 % (42.0-52.0); Hemoglobin 11.3 g/dl (14.0-18.0); Imm Gran Abs Auto 0.04 X10*3/uL (0.00-0.03); Imm Gran Pct Auto 0.7 % (0.0-0.4); Mean Corpuscular HGB Conc 31.8 g/dl (31.0-36.0); Mean Corpuscular Hemoglobin 28.5 pg (27.0-33.0); Mean Corpuscular Volume 89.6 fL (80.0-98.0); Mean Platelet Volume 9.6 fL (9.4-12.4); Monocytes Absolute Auto 0.5 X10*3/uL (0.1-1.2); Monocytes Percent Auto 8.7 % (2-11); Neutrophils Absolute Auto 3.4 x10*3/uL (2.0-8.3); Neutrophils Percent Auto 55.5 % (45-73); Platelet Count 187 X10*3/uL (160-400); Red Blood Count 3.96 X10*6/uL (4.60-5.80); White Blood Count 6.1 X10*3/uL (4.8-10.8)
[2024-03-11 17:41] LABS: Ammonia 31 umol/L (13-55)
[2024-03-11 17:48] LABS: Anion Gap 14 (12-20); Blood Urea Nitrogen 16 mg/dL (9-16); Calcium 8.8 mg/dL (8.4-10.2); Carbon Dioxide 24 mmol/L (22-29); Chloride 111 mmol/L (96-108); Creatinine Clr Calc Pharmacy 50.8; Estimated Glomerular Filt Rate 48; Glucose Random 92 mg/dL (60-115); Potassium 5.5 mmol/L (3.3-5.1); Sodium 143 mmol/L (135-145)
[2024-03-11] MEDS: Haloperidol Lactate Oral Conc 10 MG/5 ML ORAL.CONC 5 MG PO (18:17)
[2024-03-11] MEDS: LORazepam 1 MG TABLET PO (18:18)
[2024-03-11] MEDS: traZODone HCL 50 MG TABLET PO (21:15)
[2024-03-12 08:00] VITALS: BP 104/54; PULSE 55; RESP 18; TEMP 36.1; O2SAT 100
--- NOTE | 2024-03-12 09:26 | P.PNPSI_ITS ---
Subjective Subjective Date of Service: 03/12/24 Reason For Visit: Schizoaffective disorder Subjective Notes: Conditional Voluntary Interim History: The nursing staff reported the patient was confused and agitated, he slept all night. On interview the patient was on his bed, despondent. Vital signs within normal limits. Mental Status Exam Mental Status Exam Patient Appearance: Appropriate Patient Orientation: Person and Situation Level of Consciousness: Awake and Appropriate Patient Behavior: Guarded and Passive Mood Description: Withdrawn Affect Description: Blunted Patient Cognition Impaired: Yes Ability to Follow Directions: Good Speech Pattern: Slurred Hallucinations: Auditory Delusions: Paranoid Ideation and Ideas of Reference Thought Process: Illogical and Slowed Thinking Thought Content: positive for [place] and positive for Poverty of Content Judgement: Poor Diagnostics Vital Signs (24Hr): Vital Signs - 24 hr 03/11/24 12:27 03/11/24 15:14 03/11/24 16:38 Pulse Rate 56 53 Respiratory Rate 18 12 12 Blood Pressure 106/58 L Pulse Oximetry 97 Oxygen Delivery Method Room Air BMI result Body Mass Index 25.1 Labs 03/11/24 17:25 03/11/24 17:25 Labs: Laboratory Results - last 48 hr 03/11/24 17:25 WBC 6.1 RBC 3.96 L Hgb 11.3 L Hct 35.5 L MCV 89.6 MCH 28.5 MCHC 31.8 RDW 15.0 Plt Count 187 MPV 9.6 Immature Gran % (Auto) 0.7 H Neut % (Auto) 55.5 Lymph % (Auto) 33.0 [place] % (Auto) 8.7 Eos % (Auto) 1.6 Baso % (Auto) 0.5 Lymph # (Auto) 2.0 [place] # (Auto) 0.5 Eos # (Auto) 0.1 Baso # (Auto) 0.0 Abs Immat Gran (auto) 0.04 H Absolute Neuts (auto) 3.4 Absolute Nucleated RBC 0.000 Nucleated RBC % (auto) 0.0 Sodium 143 Potassium 5.5 H Chloride 111 H Carbon Dioxide 24 Anion Gap 14 BUN 16 Creatinine 1.44 H Estim Creat Clear Calc 50.8 Estimated GFR 48 Random Glucose 92 Calcium 8.8 Ammonia 31 Total Creatine Kinase 854 H Medications Medications Current Medications Acetaminophen (Acetaminophen 325 Mg Tablet) 650 mg PO Q6H PRN PRN Reason: Headache/Pain Mild Scale (1-3) Last Admin: 11/26/24 23:53 Dose: 325 mg Al Hydroxide/Mg Hydroxide (Magnesium Hydrox/Alum Hydrox 30 Ml Oral.Susp) 30 ml PO Q6H PRN PRN Reason: Heartburn/Nausea Amlodipine Besylate (Amlodipine Besylate 10 Mg Tablet) 10 mg PO DAILY [facility]; Protocol Last Admin: 03/11/24 11:37 Dose: Not Given Aspirin (Aspirin 81 Mg Tab.Chew) 81 mg PO DAILY [facility] Last Admin: 03/11/24 11:34 Dose: 81 mg Atorvastatin Calcium (Atorvastatin Calcium 40 Mg Tablet) 40 mg PO DAILY [facility] Last Admin: 03/11/24 11:35 Dose: 40 mg Carbamazepine (Carbamazepine 200 Mg Tablet) 200 mg PO BID [facility] Last Admin: 03/11/24 21:15 Dose: 200 mg Clonidine (Clonidine 0.2 Mg Patch.Tdwk) 0.2 mg TRANSDERMA Fr@0900 [facility]; Protocol Last Admin: 03/09/24 17:56 Dose: 0.2 mg Ferrous Sulfate (Ferrous Sulfate 324 Mg Tablet.Dr) 324 mg PO BID [facility] Last Admin: 03/11/24 21:20 Dose: Not Given Haloperidol Lactate (Haloperidol Lactate 5 Mg/Ml Vial) 10 mg IM BID PRN PRN Reason: Refusal of Court PO Haldol Last Admin: 03/09/24 23:25 Dose: 10 mg Haloperidol Lactate (Haloperidol Lactate Oral Conc 10 Mg/5 Ml Oral.Conc) 5 mg PO Q6H PRN PRN Reason: Psychosis or severe agitation Last Admin: 03/11/24 18:17 Dose: 5 mg Haloperidol Lactate (Haloperidol Lactate Oral Conc 10 Mg/5 Ml Oral.Conc) 10 mg PO BID [facility] Last Admin: 03/11/24 21:13 Dose: 10 mg Lorazepam (Lorazepam 1 Mg Tablet) 1 mg PO Q6H PRN PRN Reason: agitation Last Admin: 03/11/24 18:18 Dose: 1 mg Magnesium Hydroxide (Milk Of Magnesia 30 Ml Oral.Susp) 30 ml PO DAILY PRN PRN Reason: Constipation Nicotine Polacrilex (Nicotine Polacrilex 2 Mg Gum) 2 mg BUCCAL Q2H PRN PRN Reason: Nicotine Cravings Trazodone HCl (Trazodone Hcl 50 Mg Tablet) 50 mg PO BEDTIME MRX1 PRN PRN Reason: Insomnia Last Admin: 03/11/24 21:15 Dose: 50 mg Valproic Acid (Valproic Acid Liquid 250 Mg/5 Ml Solution) 750 mg PO BID [facility] Last Admin: 03/11/24 21:15 Dose: 750 mg Vitamin D (Cholecalciferol (Vitamin D3) 25 Mcg Tablet) 50 mcg PO DAILY [facility] Last Admin: 03/11/24 11:36 Dose: Not Given Allergies Allergies Allergy/AdvReac Type Severity Reaction Status Date / Time lithium Allergy Unknown Verified 01/13/24 18:08 Assessment & Plan Assessment & Plan (1) Schizoaffective disorder, bipolar type: Status: Acute Code(s): F25.0 - Schizoaffective disorder, bipolar type (2) Hypertension: Status: Acute Code(s): I10 - Essential (primary) hypertension (3) Diabetes mellitus: Status: Acute Code(s): E11.9 - Type 2 diabetes mellitus without complications Plan 68 [facility] from a [facility] with chronic psychotic disorder, refusing medication , elevated bp and disorganized and agitated behavior requiring psychiatric hospitalization and treatment not competent to sign cv. 01/14 continue to follow - gave lambs warning today- and he says the saturation equipment operator will be a she- still refusing medications and quite psychotic takes alot of redirection to settle him poor adls- 01/15- Refuses meds, refuses hospitalist consult-second day File for Section Seven consideration on 01/17. Provide care as he will allow. 01/16: Depakote 250 mg bid Haldol, Lorazepam, Benadryl prn Section 7 to be filed 01/17 Message left for guardian. 01/17: Section Seven filed. . Court scheduled 01/26/24 Pt continues to refuse medicaitons. He is in need of full assist with ADL's and is incontinent. Pt transferred to [facility] this afternoon. 01/19/2024 Patient pending civil commitment loud agitated would not engage in any conversation with this teletypewriter installer non informational healing agitated verbally aggressive. Every attempt being made to get a copy of the patient's Servin order unclear why this has been so problematic. Encourage food and fluids 01/19 continue same treatment 01/21/24 Patient labile agitated intrusive close labs ordered in order to per to protect the community patient wandering into patient's rooms intrusive impulsive laying on another person's bed. Often hostile agitated posturing at times we are still pending copy of reported Servin order encourage p.o. compliance 01/22/2024 Patient did require physical hold escort him out of a room that he jumped in other patient's room and on their bed while there were in it. There was no physical harm and the patient did leave the room his markedly impulsive with poor judgment remains on close observation has intermittently taken Haldol liquid pending civil commitment treatment plan there is a question of Servin order 01/22 The patient had been more agitated. We review his Servin order and we are increasing the Abilify up to 15 mg p.o. daily and adding Haldol p.r.n. since it is in his role years order. We needed to give him some p.r.n. at 14:00. 01/23 The patient is grossly psychotic disrobing and sexually disinhibited we are starting Haldol 2 mg p.o. t.i.d. to target psychosis as per court order treatment over objection order. 01/24 The patient remains very agitated and angry disruptive so we are increasing the Haldol from 2 mg to 5 mg p.o. t.i.d. with a backup IM if the patient refused as per court order. 01/25 we have increased the Haldol but still he is very psychotic and restless. Today he refused his blood work. He needed to be physically held twice. 01/26 the patient remains agitated at times but his last IM backup was yesterday. We are going to increase Abilify up to 20 mg daily to target mood lability and psychosis. 01/29/2024: Increase frequency of prn doses from tid to prn q 6mrs. Poor insight and unable to care for self 02/08 pt has not take any of mood stabilizer. continues to have poor sleep, intrusive and combative requiring IM medications, increase haldol 10mg po TID, back up IM. Will add ativan 1mg po TID, also back up IM. Labs show elevated CK 2300, BUN 20, Cr 1.80, unclear baseline Cr as he does have CKD. Discussed with hospitalist Dr. Gama, to give IV fluids and monitor labs tomorrow. LFTs also elevated suspect this is secondary to elevation in CK and should trend down as CK goes down. 02/09 still agitated, creatinine and CPK slightly high as yesterday, he removed his IV line there is no big difference with IV hydration. We are changing his community role years to have more options since it is not working Abilify and Haldol 02/10 3 chemical restraints yesterday. appears more combative, and somewhat more confused. Will decrease amount of benzo and antihistamine given to him as it seems to be backfiring. did discuss with ICU attending, Dr. Whiteside possibility of transferring there but they would like us to try IV depakote and exhaust all resources prior to considering transfer. Pt did take depakote springkle 1000mg with apple sauce with much encourage. 02/11 continue tx. 02/12 continue same treatment 01/14 continue with Abilify and other court order medications, we are Namenda and the court order. 02/14 Team report improvement today with pt having greater comfort and less agitation. [id number] the staff reported that the patient had been less violent in the last 24 hours 02/16 continue tx. will check depakote and ammonia on 02/17 in AM. 02/17 continue regime and plan of care 02/26/2024: Continue current regimen as per court order 03/03 continue tx. lactulose for now as we don't have new ammonia level, but will try to chack labs. Plan 1. Continue with Abilify and Haldol as per court order. 2. Blood work ordered on March 11 and it came back within normal limits. 3. The patient is still less aggressive but still psychotic will follow closely. Still grossly psychotic and so far he has had 15 restraints in the unit we are waiting for the court order to change his court order treatment plan. According to the social services counselor, the court hearing had been moved for next week. Reason for continued inpatient stay Substantial Risk for: inability to function, rapid decompensation and med/psych decompensation Time Spent With Patient Time: Total time managing care of this patient today __20__ minutes.
[2024-03-12] MEDS: Cholecalciferol (Vitamin D3) 25 MCG TABLET 50 MCG PO (10:46)
[2024-03-12] MEDS: Aspirin 81 MG TAB.CHEW PO (10:48)
[2024-03-12] MEDS: carBAMazepine 200 MG TABLET PO ×2 (10:48→22:00)
[2024-03-12] MEDS: Atorvastatin Calcium 40 MG TABLET PO (10:48)
[2024-03-12] MEDS: Haloperidol Lactate Oral Conc 10 MG/5 ML ORAL.CONC PO ×2 (10:49→22:01)
[2024-03-12] MEDS: Valproic Acid Liquid 250 MG/5 ML SOLUTION 750 MG PO ×2 (10:49→22:01)
[2024-03-12] MEDS: Haloperidol Lactate Oral Conc 10 MG/5 ML ORAL.CONC 5 MG PO (17:49)
[2024-03-12] MEDS: LORazepam 1 MG TABLET PO (17:49)
[2024-03-12 18:03] LABS: Influenza A PCR NEGATIVE (Negative); Influenza B PCR NEGATIVE (Negative); Resp Syncy Virus RNA Qual PCR NEGATIVE (Negative); SARS COV2 PCR INHOUSE NEGATIVE (Negative)
[2024-03-12 19:13] VITALS: BP 99/54; PULSE 52; RESP 18; TEMP 36; O2SAT 99
[2024-03-12 20:00] VITALS: BP 102/66; PULSE 80; TEMP 36.3; O2SAT 95
[2024-03-12] MEDS: traZODone HCL 50 MG TABLET PO (22:01)
[2024-03-13 08:00] VITALS: RESP 20
--- NOTE | 2024-03-13 09:29 | HO.PSYCHPN ---
Subjective Subjective Date of Service: 03/13/24 Reason For Visit: Schizoaffective disorder Subjective Notes: Conditional Voluntary Interim History: The nursing staff reported the patient stayed in his bed most of the day later on, he was exit seeking but redirectable. He took all his medications at night. Today he is going to have the amendment of his role years order. On interview the patient remains on his bed despondent. Mental Status Exam Mental Status Exam Patient Appearance: Unkempt Patient Orientation: Person and Situation Level of Consciousness: Awake and Appropriate Patient Behavior: Guarded and Passive Mood Description: Withdrawn Affect Description: Constricted and Labile Patient Cognition Impaired: Yes Ability to Follow Directions: Fair Speech Pattern: Impoverished Hallucinations: None Delusions: Paranoid Ideation and Ideas of Reference Thought Process: Distracted and Slowed Thinking Thought Content: positive for [place] and positive for Poverty of Content Judgement: Poor Diagnostics Vital Signs (24Hr): Vital Signs - 24 hr 03/12/24 19:13 03/12/24 20:00 Temperature 96.8 F 97.4 F Pulse Rate 52 80 Respiratory Rate 18 Blood Pressure 99/54 L 102/66 Pulse Oximetry 99 95 Oxygen Delivery Method Room Air Room Air BMI result Body Mass Index 25.1 Labs 03/11/24 17:25 03/11/24 17:25 Labs: Laboratory Results - last 48 hr 03/11/24 03/12/24 17:25 17:14 WBC 6.1 RBC 3.96 L Hgb 11.3 L Hct 35.5 L MCV 89.6 MCH 28.5 MCHC 31.8 RDW 15.0 Plt Count 187 MPV 9.6 Immature Gran % (Auto) 0.7 H Neut % (Auto) 55.5 Lymph % (Auto) 33.0 [place] % (Auto) 8.7 Eos % (Auto) 1.6 Baso % (Auto) 0.5 Lymph # (Auto) 2.0 [place] # (Auto) 0.5 Eos # (Auto) 0.1 Baso # (Auto) 0.0 Abs Immat Gran (auto) 0.04 H Absolute Neuts (auto) 3.4 Absolute Nucleated RBC 0.000 Nucleated RBC % (auto) 0.0 Sodium 143 Potassium 5.5 H Chloride 111 H Carbon Dioxide 24 Anion Gap 14 BUN 16 Creatinine 1.44 H Estim Creat Clear Calc 50.8 Estimated GFR 48 Random Glucose 92 Calcium 8.8 Ammonia 31 Total Creatine Kinase 854 H Influenza Type A (PCR) NEGATIVE Influenza Type B (PCR) NEGATIVE RSV RNA Qual (PCR) NEGATIVE SARS-CoV-2 RNA (RT-PCR) NEGATIVE Medications Medications Current Medications Acetaminophen (Acetaminophen 325 Mg Tablet) 650 mg PO Q6H PRN PRN Reason: Headache/Pain Mild Scale (1-3) Last Admin: 01/17/24 23:53 Dose: 325 mg Al Hydroxide/Mg Hydroxide (Magnesium Hydrox/Alum Hydrox 30 Ml Oral.Susp) 30 ml PO Q6H PRN PRN Reason: Heartburn/Nausea Amlodipine Besylate (Amlodipine Besylate 10 Mg Tablet) 10 mg PO DAILY [facility]; Protocol Last Admin: 03/12/24 10:34 Dose: Not Given Aspirin (Aspirin 81 Mg Tab.Chew) 81 mg PO DAILY [facility] Last Admin: 03/12/24 10:48 Dose: 81 mg Atorvastatin Calcium (Atorvastatin Calcium 40 Mg Tablet) 40 mg PO DAILY [facility] Last Admin: 03/12/24 10:48 Dose: 40 mg Carbamazepine (Carbamazepine 200 Mg Tablet) 200 mg PO BID [facility] Last Admin: 03/12/24 22:00 Dose: 200 mg Clonidine (Clonidine 0.2 Mg Patch.Tdwk) 0.2 mg TRANSDERMA Fr@0900 [facility]; Protocol Last Admin: 03/09/24 17:56 Dose: 0.2 mg Ferrous Sulfate (Ferrous Sulfate 324 Mg Tablet.Dr) 324 mg PO BID [facility] Last Admin: 03/12/24 22:01 Dose: Not Given Haloperidol Lactate (Haloperidol Lactate 5 Mg/Ml Vial) 10 mg IM BID PRN PRN Reason: Refusal of Court PO Haldol Last Admin: 03/09/24 23:25 Dose: 10 mg Haloperidol Lactate (Haloperidol Lactate Oral Conc 10 Mg/5 Ml Oral.Conc) 5 mg PO Q6H PRN PRN Reason: Psychosis or severe agitation Last Admin: 03/12/24 17:49 Dose: 5 mg Haloperidol Lactate (Haloperidol Lactate Oral Conc 10 Mg/5 Ml Oral.Conc) 10 mg PO BID [facility] Last Admin: 03/12/24 22:01 Dose: 10 mg Lorazepam (Lorazepam 1 Mg Tablet) 1 mg PO Q6H PRN PRN Reason: agitation Last Admin: 03/12/24 17:49 Dose: 1 mg Magnesium Hydroxide (Milk Of Magnesia 30 Ml Oral.Susp) 30 ml PO DAILY PRN PRN Reason: Constipation Nicotine Polacrilex (Nicotine Polacrilex 2 Mg Gum) 2 mg BUCCAL Q2H PRN PRN Reason: Nicotine Cravings Trazodone HCl (Trazodone Hcl 50 Mg Tablet) 50 mg PO BEDTIME MRX1 PRN PRN Reason: Insomnia Last Admin: 03/12/24 22:01 Dose: 50 mg Valproic Acid (Valproic Acid Liquid 250 Mg/5 Ml Solution) 750 mg PO BID [facility] Last Admin: 03/12/24 22:01 Dose: 750 mg Vitamin D (Cholecalciferol (Vitamin D3) 25 Mcg Tablet) 50 mcg PO DAILY [facility] Last Admin: 03/12/24 10:46 Dose: 50 mcg Allergies Allergies Allergy/AdvReac Type Severity Reaction Status Date / Time lithium Allergy Unknown Verified 01/13/24 18:08 Assessment & Plan Assessment & Plan (1) Schizoaffective disorder, bipolar type: Status: Acute Code(s): F25.0 - Schizoaffective disorder, bipolar type (2) Hypertension: Status: Acute Code(s): I10 - Essential (primary) hypertension (3) Diabetes mellitus: Status: Acute Code(s): E11.9 - Type 2 diabetes mellitus without complications Plan 68 [facility] from a shelter with chronic psychotic disorder, refusing medication , elevated bp and disorganized and agitated behavior requiring psychiatric hospitalization and treatment not competent to sign cv. 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 Provide care as he will allow. 01/16: Depakote 250 mg bid Haldol, Lorazepam, Benadryl prn Section 7 to be filed 01/17 Message left for guardian. 01/17: Section [address] filed. . Court scheduled 01/26/24 Pt continues to refuse medicaitons. He is in need of full assist with ADL's and is incontinent. Pt transferred to [facility] this afternoon. 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 Every attempt being made to get a copy of the patient's Servin order unclear why this has been so problematic. Encourage food and fluids 01/19 continue same treatment 01/21/24 Patient labile agitated intrusive close labs ordered in order to per to protect the community patient wandering into patient's rooms intrusive impulsive laying on another person's bed. Often hostile agitated posturing at times we are still pending copy of reported Servin order encourage p.o. compliance 01/22/2024 Patient did require physical hold escort him out of a room that he jumped in other patient's room and on their bed while there were in it. There was no physical harm and the patient did leave the room his markedly impulsive with poor judgment remains on close observation has intermittently taken Haldol liquid pending civil commitment treatment plan there is a question of Servin order 01/22 The patient had been more agitated. We review his Servin order and we are increasing the Abilify up to 15 mg p.o. daily and adding Haldol p.r.n. since it is in his role years order. We needed to give him some p.r.n. at 14:00. 01/23 The patient is grossly psychotic disrobing and sexually disinhibited we are starting Haldol 2 mg p.o. t.i.d. to target psychosis as per court order treatment over objection order. 01/24 The patient remains very agitated and angry disruptive so we are increasing the Haldol from 2 mg to 5 mg p.o. t.i.d. with a backup IM if the patient refused as per court order. 01/25 we have increased the Haldol but still he is very psychotic and restless. Today he refused his blood work. He needed to be physically held twice. 01/26 the patient remains agitated at times but his last IM backup was yesterday. We are going to increase Abilify up to 20 mg daily to target mood lability and psychosis. 01/29/2024: Increase frequency of prn doses from tid to prn q 6mrs. Poor insight and unable to care for self 02/08 pt has not take any of mood stabilizer. continues to have poor sleep, intrusive and combative requiring IM medications, increase haldol 10mg po TID, back up IM. Will add ativan 1mg po TID, also back up IM. Labs show elevated CK 2300, BUN 20, Cr 1.80, unclear baseline Cr as he does have CKD. Discussed with hospitalist Dr. Gama, to give IV fluids and monitor labs tomorrow. LFTs also elevated suspect this is secondary to elevation in CK and should trend down as CK goes down. 02/09 still agitated, creatinine and CPK slightly high as yesterday, he removed his IV line there is no big difference with IV hydration. We are changing his community role years to have more options since it is not working Abilify and Haldol 02/10 3 chemical restraints yesterday. appears more combative, and somewhat more confused. Will decrease amount of benzo and antihistamine given to him as it seems to be backfiring. did discuss with ICU attending, Dr. Whiteside possibility of transferring there but they would like us to try IV depakote and exhaust all resources prior to considering transfer. Pt did take depakote springkle 1000mg with apple sauce with much encourage. 02/11 continue tx. 02/12 continue same treatment 01/14 continue with Abilify and other court order medications, we are Namenda and the court order. 02/14 Team report improvement today with pt having greater comfort and less agitation. [id number] the staff reported that the patient had been less violent in the last 24 hours 02/16 continue tx. will check depakote and ammonia on 02/17 in AM. 02/17 continue regime and plan of care 02/26/2024: Continue current regimen as per court order 03/03 continue tx. lactulose for now as we don't have new ammonia level, but will try to chack labs. Plan 1. Continue with Abilify and Haldol as per court order. 2. Blood work ordered on March 11 and it came back within normal limits. 3. The patient is still less aggressive but still psychotic will follow closely. Still grossly psychotic and so far he has had 15 restraints in the unit we are waiting for the court order to change his court order treatment plan. According to the social sciences research scientist, the court hearing had been moved for this week. Reason for continued inpatient stay Substantial Risk for: inability to function, rapid decompensation and med/psych decompensation Time Spent With Patient Time: Total time managing care of this patient today __20__ minutes.
[2024-03-13] MEDS: Valproic Acid Liquid 250 MG/5 ML SOLUTION 750 MG PO ×2 (11:40→22:27)
[2024-03-13] MEDS: Haloperidol Lactate Oral Conc 10 MG/5 ML ORAL.CONC PO ×2 (11:45→22:27)
[2024-03-13] MEDS: Haloperidol Lactate Oral Conc 10 MG/5 ML ORAL.CONC 5 MG PO (14:07)
[2024-03-13] MEDS: LORazepam 1 MG TABLET PO ×2 (14:08→22:57)
[2024-03-13 20:00] VITALS: BP 100/58; PULSE 99; RESP 15; TEMP 36.2; O2SAT 99
[2024-03-13] MEDS: carBAMazepine 200 MG TABLET PO (22:57)
[2024-03-14] MEDS: Haloperidol Lactate Oral Conc 10 MG/5 ML ORAL.CONC 5 MG PO (00:25)
[2024-03-14] MEDS: Haloperidol Lactate 5 MG/ML VIAL 10 MG IM (10:40)
--- NOTE | 2024-03-14 13:06 | HO.PSYCHPN ---
Subjective Subjective Date of Service: 03/14/24 Reason For Visit: Schizoaffective disorder Subjective Notes: Section 7 and Section 8 Interim History: The nursing staff reported the patient had been sleeping most of the day, he was restless in the afternoon yesterday and he took his meds. He slept last night on and off. On interview the patient was in the hallway and he wanted to lay down in the middle of the hallway. He was redirected and looks disorganized. Mental Status Exam Mental Status Exam Patient Appearance: Appropriate and Unkempt Patient Orientation: Person Level of Consciousness: Restless Patient Behavior: Guarded Mood Description: Suspicious and Withdrawn Affect Description: Labile Patient Cognition Impaired: Yes Ability to Follow Directions: Good Speech Pattern: Clear Hallucinations: None Delusions: Paranoid Ideation and Ideas of Reference Thought Process: Distracted and Slowed Thinking Thought Content: positive for Poverty of Content and positive for Thought Blocking Judgement: Poor Diagnostics Vital Signs (24Hr): Vital Signs - 24 hr 03/13/24 20:00 Temperature 97.1 F Pulse Rate 99 Respiratory Rate 15 Blood Pressure 100/58 L Pulse Oximetry 99 Oxygen Delivery Method Room Air BMI result Body Mass Index 25.1 Labs 03/11/24 17:25 03/11/24 17:25 Labs: Laboratory Results - last 48 hr 03/12/24 17:14 Influenza Type A (PCR) NEGATIVE Influenza Type B (PCR) NEGATIVE RSV RNA Qual (PCR) NEGATIVE SARS-CoV-2 RNA (RT-PCR) NEGATIVE Medications Medications Current Medications Acetaminophen (Acetaminophen 325 Mg Tablet) 650 mg PO Q6H PRN PRN Reason: Headache/Pain Mild Scale (1-3) Last Admin: 01/17/24 23:53 Dose: 325 mg Al Hydroxide/Mg Hydroxide (Magnesium Hydrox/Alum Hydrox 30 Ml Oral.Susp) 30 ml PO Q6H PRN PRN Reason: Heartburn/Nausea Amlodipine Besylate (Amlodipine Besylate 10 Mg Tablet) 10 mg PO DAILY REPLACED BY [facility]; Protocol Last Admin: 03/14/24 11:06 Dose: Not Given Aspirin (Aspirin 81 Mg Tab.Chew) 81 mg PO DAILY REPLACED BY [facility] Last Admin: 03/14/24 11:06 Dose: Not Given Atorvastatin Calcium (Atorvastatin Calcium 40 Mg Tablet) 40 mg PO DAILY REPLACED BY [facility] Last Admin: 03/14/24 11:06 Dose: Not Given Carbamazepine (Carbamazepine 200 Mg Tablet) 200 mg PO BID REPLACED BY [facility] Last Admin: 03/14/24 10:40 Dose: Not Given Clonidine (Clonidine 0.2 Mg Patch.Tdwk) 0.2 mg TRANSDERMA Fr@0900 REPLACED BY [facility]; Protocol Last Admin: 03/09/24 17:56 Dose: 0.2 mg Ferrous Sulfate (Ferrous Sulfate 324 Mg Tablet.Dr) 324 mg PO BID REPLACED BY [facility] Last Admin: 03/14/24 10:40 Dose: Not Given Haloperidol Lactate (Haloperidol Lactate 5 Mg/Ml Vial) 10 mg IM BID PRN PRN Reason: Refusal of Court PO Haldol Last Admin: 03/14/24 10:40 Dose: 10 mg Haloperidol Lactate (Haloperidol Lactate Oral Conc 10 Mg/5 Ml Oral.Conc) 5 mg PO Q6H PRN PRN Reason: Psychosis or severe agitation Last Admin: 03/14/24 00:25 Dose: 5 mg Haloperidol Lactate (Haloperidol Lactate Oral Conc 10 Mg/5 Ml Oral.Conc) 10 mg PO BID REPLACED BY [facility] Last Admin: 03/14/24 11:07 Dose: Not Given Lorazepam (Lorazepam 1 Mg Tablet) 1 mg PO Q6H PRN PRN Reason: agitation Last Admin: 03/13/24 22:57 Dose: 1 mg Magnesium Hydroxide (Milk Of Magnesia 30 Ml Oral.Susp) 30 ml PO DAILY PRN PRN Reason: Constipation Nicotine Polacrilex (Nicotine Polacrilex 2 Mg Gum) 2 mg BUCCAL Q2H PRN PRN Reason: Nicotine Cravings Trazodone HCl (Trazodone Hcl 50 Mg Tablet) 50 mg PO BEDTIME MRX1 PRN PRN Reason: Insomnia Last Admin: 03/12/24 22:01 Dose: 50 mg Valproic Acid (Valproic Acid Liquid 250 Mg/5 Ml Solution) 750 mg PO BID REPLACED BY [facility] Last Admin: 03/14/24 11:07 Dose: Not Given Vitamin D (Cholecalciferol (Vitamin D3) 25 Mcg Tablet) 50 mcg PO DAILY REPLACED BY [facility] Last Admin: 03/14/24 10:40 Dose: Not Given Allergies Allergies Allergy/AdvReac Type Severity Reaction Status Date / Time lithium Allergy Unknown Verified 01/13/24 18:08 Assessment & Plan Assessment & Plan (1) Schizoaffective disorder, bipolar type: Status: Acute Code(s): F25.0 - Schizoaffective disorder, bipolar type (2) Hypertension: Status: Acute Code(s): I10 - Essential (primary) hypertension (3) Diabetes mellitus: Status: Acute Code(s): E11.9 - Type 2 diabetes mellitus without complications Plan 68 yo from a care home with chronic psychotic disorder, refusing medication , elevated bp and disorganized and agitated behavior requiring psychiatric hospitalization and treatment not competent to sign cv. 01/14 continue to follow - gave lambs warning today- and he says the packerhead machine operator will be a she- still refusing medications and quite psychotic takes alot of redirection to settle him poor adls- 01/15- Refuses meds, refuses hospitalist consult-second day File for Section Seven consideration on 01/17. Provide care as he will allow. 01/16: Depakote 250 mg bid Haldol, Lorazepam, Benadryl prn Section 7 to be filed 01/17 Message left for guardian. 01/17: Section Seven filed. . Court scheduled 01/26/24 Pt continues to refuse medicaitons. He is in need of full assist with ADL's and is incontinent. Pt transferred to [facility] this afternoon. 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 Every attempt being made to get a copy of the patient's Servin order unclear why this has been so problematic. Encourage food and fluids 01/19 continue same treatment 01/21/24 Patient labile agitated intrusive close labs ordered in order to per to protect the community patient wandering into patient's rooms intrusive impulsive laying on another person's bed. Often hostile agitated posturing at times we are still pending copy of reported Servin order encourage p.o. compliance 01/22/2024 Patient did require physical hold escort him out of a room that he jumped in other patient's room and on their bed while there were in it. There was no physical harm and the patient did leave the room his markedly impulsive with poor judgment remains on close observation has intermittently taken Haldol liquid pending civil commitment treatment plan there is a question of Servin order 01/22 The patient had been more agitated. We review his Servin order and we are increasing the Abilify up to 15 mg p.o. daily and adding Haldol p.r.n. since it is in his role years order. We needed to give him some p.r.n. at 14:00. 01/23 The patient is grossly psychotic disrobing and sexually disinhibited we are starting Haldol 2 mg p.o. t.i.d. to target psychosis as per court order treatment over objection order. 01/24 The patient remains very agitated and angry disruptive so we are increasing the Haldol from 2 mg to 5 mg p.o. t.i.d. with a backup IM if the patient refused as per court order. 01/25 we have increased the Haldol but still he is very psychotic and restless. Today he refused his blood work. He needed to be physically held twice. 01/26 the patient remains agitated at times but his last IM backup was yesterday. We are going to increase Abilify up to 20 mg daily to target mood lability and psychosis. 01/29/2024: Increase frequency of prn doses from tid to prn q 6mrs. Poor insight and unable to care for self 02/08 pt has not take any of mood stabilizer. continues to have poor sleep, intrusive and combative requiring IM medications, increase haldol 10mg po TID, back up IM. Will add ativan 1mg po TID, also back up IM. Labs show elevated CK 2300, BUN 20, Cr 1.80, unclear baseline Cr as he does have CKD. Discussed with hospitalist Dr. Gama, to give IV fluids and monitor labs tomorrow. LFTs also elevated suspect this is secondary to elevation in CK and should trend down as CK goes down. 02/09 still agitated, creatinine and CPK slightly high as yesterday, he removed his IV line there is no big difference with IV hydration. We are changing his community role years to have more options since it is not working Abilify and Haldol 02/10 3 chemical restraints yesterday. appears more combative, and somewhat more confused. Will decrease amount of benzo and antihistamine given to him as it seems to be backfiring. did discuss with ICU attending, Dr. Whiteside possibility of transferring there but they would like us to try IV depakote and exhaust all resources prior to considering transfer. Pt did take depakote springkle 1000mg with apple sauce with much encourage. 02/11 continue tx. 02/12 continue same treatment 01/14 continue with Abilify and other court order medications, we are Namenda and the court order. 02/14 Team report improvement today with pt having greater comfort and less agitation. [id number] the staff reported that the patient had been less violent in the last 24 hours 02/16 continue tx. will check depakote and ammonia on 02/17 in AM. 02/17 continue regime and plan of care 02/26/2024: Continue current regimen as per court order 03/03 continue tx. lactulose for now as we don't have new ammonia level, but will try to chack labs. Plan 1. Continue with Abilify and Haldol as per court order. 2. Blood work ordered on March 11 and it came back within normal limits. 3. The patient is still less aggressive but still psychotic will follow closely. Still grossly psychotic and so far he has had 15 restraints in the unit we are waiting for the court order to change his court order treatment plan. According to the social media coordinator, the court hearing had been moved for this week. Reason for continued inpatient stay Substantial Risk for: inability to function, rapid decompensation and med/psych decompensation Time Spent With Patient Time: Total time managing care of this patient today __20__ minutes.
[2024-03-14] MEDS: LORazepam 1 MG TABLET PO ×2 (15:11→21:27)
[2024-03-14] MEDS: Valproic Acid Liquid 250 MG/5 ML SOLUTION 750 MG PO (20:09)
[2024-03-14] MEDS: carBAMazepine 200 MG TABLET PO (20:10)
[2024-03-14] MEDS: Haloperidol Lactate Oral Conc 10 MG/5 ML ORAL.CONC PO (20:10)
[2024-03-14] MEDS: traZODone HCL 50 MG TABLET PO (21:26)
[2024-03-15] MEDS: LORazepam 1 MG TABLET PO (03:48)
[2024-03-15] MEDS: Haloperidol Lactate Oral Conc 10 MG/5 ML ORAL.CONC 5 MG PO ×3 (03:48→23:35)
[2024-03-15] MEDS: Haloperidol Lactate Oral Conc 10 MG/5 ML ORAL.CONC PO ×2 (07:58→19:53)
[2024-03-15] MEDS: Valproic Acid Liquid 250 MG/5 ML SOLUTION 750 MG PO ×2 (07:58→19:53)
[2024-03-15] MEDS: carBAMazepine 200 MG TABLET PO ×2 (07:59→19:53)
[2024-03-15] MEDS: Aspirin 81 MG TAB.CHEW PO (07:59)
--- NOTE | 2024-03-15 12:09 | PC.NURSE ---
Late entry for 03/11/24 07:00-19:30 Bret woke up at approximately 11:30 and was noted to be having difficulty walking without assistance. Pt ambulates independently at baseline. He was difficult to understand and speech was slowed. He was oriented to self only. Per nursing, Bret had been refusing meals for approximately 2 days. Provider Bruce Watson was notified of change in patient's condition via tiger text at 11:32 with no response. This freelance writer sent second tiger text to provider at 11:51 offering to enter telephone order if new orders were needed. Provider responded busy now at 11:58. This freelance writer sent tiger text at 12:00 again offering to enter telephone orders if needed. Provider responded I will take care. Any VS? at 12:23 and at 12:25 this freelance writer informed provider that pt was refusing vitals at this time with no response from provider. Situation was escalated to Forming Roll Operator Heavy Duty Marlon Wells by another RN on the floor at approximately 1300 and he was notified of patients change in condition and attempts to contact provider with no new orders while rounding on the unit. Marlon then contacted provider regarding this situation via tiger text with no new orders. Marlon escalated the situation to Director Cintia Seth and Cintia contacted provider at 16:32. Orders for stat EKG and labs (cbc, cmp, ammonia, CPK) at 16:41.
[2024-03-15] MEDS: LORazepam 1 MG TABLET 2 MG PO ×2 (12:46→19:52)
--- NOTE | 2024-03-15 13:40 | HO.PSYCHPN ---
Subjective Subjective Date of Service: 03/15/24 Reason For Visit: Schizoaffective disorder Subjective Notes: Section 7 and Section 8 Interim History: The nursing staff reported the patient had been disorganized, he was seen laying in the floor yesterday. He had been pacing in the hallway but so far there was no need of restraining. On interview the patient is grossly disorganized. Mental Status Exam Mental Status Exam Patient Appearance: Unkempt Patient Orientation: Person Level of Consciousness: Restless Patient Behavior: Guarded Mood Description: Withdrawn Affect Description: Blunted Patient Cognition Impaired: Yes Ability to Follow Directions: Good Speech Pattern: Clear Hallucinations: Auditory Delusions: Paranoid Ideation and Ideas of Reference Thought Process: Distracted and Slowed Thinking Thought Content: positive for [place] and positive for Poverty of Content Judgement: Poor Diagnostics Vital Signs (24Hr): BMI result Body Mass Index 25.1 Labs 03/11/24 17:25 03/11/24 17:25 Medications Medications Current Medications Acetaminophen (Acetaminophen 325 Mg Tablet) 650 mg PO Q6H PRN PRN Reason: Headache/Pain Mild Scale (1-3) Last Admin: 01/17/24 23:53 Dose: 325 mg Al Hydroxide/Mg Hydroxide (Magnesium Hydrox/Alum Hydrox 30 Ml Oral.Susp) 30 ml PO Q6H PRN PRN Reason: Heartburn/Nausea Amlodipine Besylate (Amlodipine Besylate 10 Mg Tablet) 10 mg PO DAILY [facility]; Protocol Last Admin: 03/15/24 10:16 Dose: Not Given Aspirin (Aspirin 81 Mg Tab.Chew) 81 mg PO DAILY [facility] Last Admin: 03/15/24 07:59 Dose: 81 mg Atorvastatin Calcium (Atorvastatin Calcium 40 Mg Tablet) 40 mg PO DAILY [facility] Last Admin: 03/15/24 10:16 Dose: Not Given Carbamazepine (Carbamazepine 200 Mg Tablet) 200 mg PO BID [facility] Last Admin: 03/15/24 07:59 Dose: 200 mg Clonidine (Clonidine 0.2 Mg Patch.Tdwk) 0.2 mg TRANSDERMA Fr@0900 [facility]; Protocol Last Admin: 03/09/24 17:56 Dose: 0.2 mg Ferrous Sulfate (Ferrous Sulfate 324 Mg Tablet.Dr) 324 mg PO BID [facility] Last Admin: 03/15/24 10:16 Dose: Not Given Haloperidol Lactate (Haloperidol Lactate 5 Mg/Ml Vial) 10 mg IM BID PRN PRN Reason: Refusal of Court PO Haldol Last Admin: 03/14/24 10:40 Dose: 10 mg Haloperidol Lactate (Haloperidol Lactate Oral Conc 10 Mg/5 Ml Oral.Conc) 5 mg PO Q6H PRN PRN Reason: Psychosis or severe agitation Last Admin: 03/15/24 12:46 Dose: 5 mg Haloperidol Lactate (Haloperidol Lactate Oral Conc 10 Mg/5 Ml Oral.Conc) 10 mg PO BID [facility] Last Admin: 03/15/24 07:58 Dose: 10 mg Lorazepam (Lorazepam 1 Mg Tablet) 2 mg PO Q6H PRN PRN Reason: agitation Last Admin: 03/15/24 12:46 Dose: 2 mg Magnesium Hydroxide (Milk Of Magnesia 30 Ml Oral.Susp) 30 ml PO DAILY PRN PRN Reason: Constipation Nicotine Polacrilex (Nicotine Polacrilex 2 Mg Gum) 2 mg BUCCAL Q2H PRN PRN Reason: Nicotine Cravings Trazodone HCl (Trazodone Hcl 50 Mg Tablet) 50 mg PO BEDTIME MRX1 PRN PRN Reason: Insomnia Last Admin: 03/14/24 21:26 Dose: 50 mg Valproic Acid (Valproic Acid Liquid 250 Mg/5 Ml Solution) 750 mg PO BID [facility] Last Admin: 03/15/24 07:58 Dose: 750 mg Vitamin D (Cholecalciferol (Vitamin D3) 25 Mcg Tablet) 50 mcg PO DAILY [facility] Last Admin: 03/15/24 10:16 Dose: Not Given Allergies Allergies Allergy/AdvReac Type Severity Reaction Status Date / Time lithium Allergy Unknown Verified 01/13/24 18:08 Assessment & Plan Assessment & Plan (1) Schizoaffective disorder, bipolar type: Status: Acute Code(s): F25.0 - Schizoaffective disorder, bipolar type (2) Hypertension: Status: Acute Code(s): I10 - Essential (primary) hypertension (3) Diabetes mellitus: Status: Acute Code(s): E11.9 - Type 2 diabetes mellitus without complications Plan 68 yo from a residential with chronic psychotic disorder, refusing medication , elevated bp and disorganized and agitated behavior requiring psychiatric hospitalization and treatment not competent to sign cv. 01/14 continue to follow - gave lambs warning today- and he says the criminal court judge will be a she- still refusing medications and quite psychotic takes alot of redirection to settle him poor adls- 01/15- Refuses meds, refuses hospitalist consult-second day File for Section Seven consideration on 01/17. Provide care as he will allow. 01/16: Depakote 250 mg bid Haldol, Lorazepam, Benadryl prn Section 7 to be filed 01/17 Message left for guardian. 01/17: Section Seven filed. . Court scheduled 01/26/24 Pt continues to refuse medicaitons. He is in need of full assist with ADL's and is incontinent. Pt transferred to [facility] this afternoon. 01/19/2024 Patient pending civil commitment loud agitated would not engage in any conversation with this blog writer non informational healing agitated verbally aggressive. Every attempt being made to get a copy of the patient's Servin order unclear why this has been so problematic. Encourage food and fluids 01/19 continue same treatment 01/21/24 Patient labile agitated intrusive close labs ordered in order to per to protect the community patient wandering into patient's rooms intrusive impulsive laying on another person's bed. Often hostile agitated posturing at times we are still pending copy of reported Servin order encourage p.o. compliance 01/22/2024 Patient did require physical hold escort him out of a room that he jumped in other patient's room and on their bed while there were in it. There was no physical harm and the patient did leave the room his markedly impulsive with poor judgment remains on close observation has intermittently taken Haldol liquid pending civil commitment treatment plan there is a question of Servin order 01/22 The patient had been more agitated. We review his Servin order and we are increasing the Abilify up to 15 mg p.o. daily and adding Haldol p.r.n. since it is in his role years order. We needed to give him some p.r.n. at 14:00. 01/23 The patient is grossly psychotic disrobing and sexually disinhibited we are starting Haldol 2 mg p.o. t.i.d. to target psychosis as per court order treatment over objection order. 01/24 The patient remains very agitated and angry disruptive so we are increasing the Haldol from 2 mg to 5 mg p.o. t.i.d. with a backup IM if the patient refused as per court order. 01/25 we have increased the Haldol but still he is very psychotic and restless. Today he refused his blood work. He needed to be physically held twice. 01/26 the patient remains agitated at times but his last IM backup was yesterday. We are going to increase Abilify up to 20 mg daily to target mood lability and psychosis. 01/29/2024: Increase frequency of prn doses from tid to prn q 6mrs. Poor insight and unable to care for self 02/08 pt has not take any of mood stabilizer. continues to have poor sleep, intrusive and combative requiring IM medications, increase haldol 10mg po TID, back up IM. Will add ativan 1mg po TID, also back up IM. Labs show elevated CK 2300, BUN 20, Cr 1.80, unclear baseline Cr as he does have CKD. Discussed with hospitalist Dr. Gama, to give IV fluids and monitor labs tomorrow. LFTs also elevated suspect this is secondary to elevation in CK and should trend down as CK goes down. 02/09 still agitated, creatinine and CPK slightly high as yesterday, he removed his IV line there is no big difference with IV hydration. We are changing his community role years to have more options since it is not working Abilify and Haldol 02/10 3 chemical restraints yesterday. appears more combative, and somewhat more confused. Will decrease amount of benzo and antihistamine given to him as it seems to be backfiring. did discuss with ICU attending, Dr. Whiteside possibility of transferring there but they would like us to try IV depakote and exhaust all resources prior to considering transfer. Pt did take depakote springkle 1000mg with apple sauce with much encourage. 02/11 continue tx. 02/12 continue same treatment 01/14 continue with Abilify and other court order medications, we are Namenda and the court order. 02/14 Team report improvement today with pt having greater comfort and less agitation. 1126 the staff reported that the patient had been less violent in the last 24 hours 02/16 continue tx. will check depakote and ammonia on 02/17 in AM. 02/17 continue regime and plan of care 02/26/2024: Continue current regimen as per court order 1/11 continue tx. lactulose for now as we don't have new ammonia level, but will try to chack labs. Plan 1. Continue with Abilify and Haldol as per court order. 2. Blood work ordered on March 11 and it came back within normal limits. 3. The patient is still less aggressive but still psychotic will follow closely. Still grossly psychotic and so far he has had 15 restraints in the unit we are waiting for the court order to change his court order treatment plan. According to the social psychologist, the court hearing had been moved for this week. Reason for continued inpatient stay Substantial Risk for: inability to function, rapid decompensation and med/psych decompensation Time Spent With Patient Time: Total time managing care of this patient today __20__ minutes.
[2024-03-15] MEDS: Ferrous Sulfate 324 MG TABLET.DR PO (19:53)
[2024-03-16] MEDS: Haloperidol Lactate Oral Conc 10 MG/5 ML ORAL.CONC PO ×2 (08:00→21:59)
[2024-03-16] MEDS: carBAMazepine 200 MG TABLET PO ×2 (08:01→21:58)
[2024-03-16] MEDS: Valproic Acid Liquid 250 MG/5 ML SOLUTION 750 MG PO ×2 (08:01→21:57)
[2024-03-16] MEDS: LORazepam 1 MG TABLET 2 MG PO ×2 (09:29→21:57)
--- NOTE | 2024-03-16 16:10 | HO.PSYCHPN ---
Subjective Subjective Date of Service: 03/16/24 Reason For Visit: Schizoaffective disorder Subjective Notes: Section 7 Interim History: Pt slept most of the night. He took medications this morning. He presents as disorganized, purposeless movements, conversation without much logic. He slipped down his bed, felt on pillows, did not hit his head. He denies any pain and is ambulating without any difficulty. NOted BP on low side 100/58, has been like this in the past few days. Medication Compliance: Intermittent Diagnostics Vital Signs (24Hr): BMI result Body Mass Index 25.1 Labs 03/11/24 17:25 03/11/24 17:25 Medications Medications Current Medications Acetaminophen (Acetaminophen 325 Mg Tablet) 650 mg PO Q6H PRN PRN Reason: Headache/Pain Mild Scale (1-3) Last Admin: 01/17/24 23:53 Dose: 325 mg Al Hydroxide/Mg Hydroxide (Magnesium Hydrox/Alum Hydrox 30 Ml Oral.Susp) 30 ml PO Q6H PRN PRN Reason: Heartburn/Nausea Amlodipine Besylate (Amlodipine Besylate 10 Mg Tablet) 10 mg PO DAILY [facility]; Protocol Last Admin: 03/16/24 08:57 Dose: Not Given Aspirin (Aspirin 81 Mg Tab.Chew) 81 mg PO DAILY [facility] Last Admin: 03/16/24 08:57 Dose: Not Given Atorvastatin Calcium (Atorvastatin Calcium 40 Mg Tablet) 40 mg PO DAILY [facility] Last Admin: 03/16/24 08:57 Dose: Not Given Carbamazepine (Carbamazepine 200 Mg Tablet) 200 mg PO BID [facility] Last Admin: 03/16/24 08:01 Dose: 200 mg Clonidine (Clonidine 0.2 Mg Patch.Tdwk) 0.2 mg TRANSDERMA Fr@0900 [facility]; Protocol Last Admin: 03/16/24 08:58 Dose: Not Given Ferrous Sulfate (Ferrous Sulfate 324 Mg Tablet.Dr) 324 mg PO BID [facility] Last Admin: 03/16/24 08:58 Dose: Not Given Haloperidol Lactate (Haloperidol Lactate 5 Mg/Ml Vial) 10 mg IM BID PRN PRN Reason: Refusal of Court PO Haldol Last Admin: 03/14/24 10:40 Dose: 10 mg Haloperidol Lactate (Haloperidol Lactate Oral Conc 10 Mg/5 Ml Oral.Conc) 5 mg PO Q6H PRN PRN Reason: Psychosis or severe agitation Last Admin: 03/15/24 23:35 Dose: 5 mg Haloperidol Lactate (Haloperidol Lactate Oral Conc 10 Mg/5 Ml Oral.Conc) 10 mg PO BID [facility] Last Admin: 03/16/24 08:00 Dose: 10 mg Lorazepam (Lorazepam 1 Mg Tablet) 2 mg PO Q6H PRN PRN Reason: agitation Last Admin: 03/16/24 09:29 Dose: 2 mg Magnesium Hydroxide (Milk Of Magnesia 30 Ml Oral.Susp) 30 ml PO DAILY PRN PRN Reason: Constipation Nicotine Polacrilex (Nicotine Polacrilex 2 Mg Gum) 2 mg BUCCAL Q2H PRN PRN Reason: Nicotine Cravings Trazodone HCl (Trazodone Hcl 50 Mg Tablet) 50 mg PO BEDTIME MRX1 PRN PRN Reason: Insomnia Last Admin: 03/14/24 21:26 Dose: 50 mg Valproic Acid (Valproic Acid Liquid 250 Mg/5 Ml Solution) 750 mg PO BID [facility] Last Admin: 03/16/24 08:01 Dose: 750 mg Vitamin D (Cholecalciferol (Vitamin D3) 25 Mcg Tablet) 50 mcg PO DAILY [facility] Last Admin: 03/16/24 08:58 Dose: Not Given Allergies Allergies Allergy/AdvReac Type Severity Reaction Status Date / Time lithium Allergy Unknown Verified 01/13/24 18:08 Assessment & Plan Assessment & Plan (1) Schizoaffective disorder, bipolar type: Status: Acute Code(s): F25.0 - Schizoaffective disorder, bipolar type (2) Hypertension: Status: Acute Code(s): I10 - Essential (primary) hypertension (3) Diabetes mellitus: Status: Acute Code(s): E11.9 - Type 2 diabetes mellitus without complications Plan 68 yo from a fpc with chronic psychotic disorder, refusing medication , elevated bp and disorganized and agitated behavior requiring psychiatric hospitalization and treatment not competent to sign cv. 01/14 continue to follow - gave lambs warning today- and he says the shooter's helper will be a she- still refusing medications and quite psychotic takes alot of redirection to settle him poor adls- 01/15- Refuses meds, refuses hospitalist consult-second day File for Section Seven consideration on 01/17. Provide care as he will allow. 01/16: Depakote 250 mg bid Haldol, Lorazepam, Benadryl prn Section 7 to be filed 11/27 Message left for guardian. 01/17: Section Seven filed. . Court scheduled 01/26/24 Pt continues to refuse medicaitons. He is in need of full assist with ADL's and is incontinent. Pt transferred to [facility] this afternoon. 01/19/2024 Patient pending civil commitment loud agitated would not engage in any conversation with this proposal manager writer non informational healing agitated verbally aggressive. Every attempt being made to get a copy of the patient's Servin order unclear why this has been so problematic. Encourage food and fluids 01/19 continue same treatment 01/21/24 Patient labile agitated intrusive close labs ordered in order to per to protect the community patient wandering into patient's rooms intrusive impulsive laying on another person's bed. Often hostile agitated posturing at times we are still pending copy of reported Servin order encourage p.o. compliance 01/22/2024 Patient did require physical hold escort him out of a room that he jumped in other patient's room and on their bed while there were in it. There was no physical harm and the patient did leave the room his markedly impulsive with poor judgment remains on close observation has intermittently taken Haldol liquid pending civil commitment treatment plan there is a question of Servin order 01/22 The patient had been more agitated. We review his Servin order and we are increasing the Abilify up to 15 mg p.o. daily and adding Haldol p.r.n. since it is in his role years order. We needed to give him some p.r.n. at 14:00. 01/23 The patient is grossly psychotic disrobing and sexually disinhibited we are starting Haldol 2 mg p.o. t.i.d. to target psychosis as per court order treatment over objection order. 01/24 The patient remains very agitated and angry disruptive so we are increasing the Haldol from 2 mg to 5 mg p.o. t.i.d. with a backup IM if the patient refused as per court order. 01/25 we have increased the Haldol but still he is very psychotic and restless. Today he refused his blood work. He needed to be physically held twice. 01/26 the patient remains agitated at times but his last IM backup was yesterday. We are going to increase Abilify up to 20 mg daily to target mood lability and psychosis. 01/29/2024: Increase frequency of prn doses from tid to prn q 6mrs. Poor insight and unable to care for self 02/08 pt has not take any of mood stabilizer. continues to have poor sleep, intrusive and combative requiring IM medications, increase haldol 10mg po TID, back up IM. Will add ativan 1mg po TID, also back up IM. Labs show elevated CK 2300, BUN 20, Cr 1.80, unclear baseline Cr as he does have CKD. Discussed with hospitalist Dr. Gama, to give IV fluids and monitor labs tomorrow. LFTs also elevated suspect this is secondary to elevation in CK and should trend down as CK goes down. 02/09 still agitated, creatinine and CPK slightly high as yesterday, he removed his IV line there is no big difference with IV hydration. We are changing his community role years to have more options since it is not working Abilify and Haldol 02/10 3 chemical restraints yesterday. appears more combative, and somewhat more confused. Will decrease amount of benzo and antihistamine given to him as it seems to be backfiring. did discuss with ICU attending, Dr. Whiteside possibility of transferring there but they would like us to try IV depakote and exhaust all resources prior to considering transfer. Pt did take depakote springkle 1000mg with apple sauce with much encourage. 02/11 continue tx. 02/12 continue same treatment 01/14 continue with Abilify and other court order medications, we are Namenda and the court order. 02/14 Team report improvement today with pt having greater comfort and less agitation. [id number] the staff reported that the patient had been less violent in the last 24 hours 02/16 continue tx. will check depakote and ammonia on 02/17 in AM. 02/17 continue regime and plan of care 02/26/2024: Continue current regimen as per court order 03/03 continue tx. lactulose for now as we don't have new ammonia level, but will try to chack labs. 03/16- continue medications, held clonidine patch for today due to low BP. repeat labs. Reason for continued inpatient stay Substantial Risk for: inability to function Time Spent With Patient Time: Total time managing care of this patient today ____ minutes.
[2024-03-16 16:13] VITALS: BP 104/54; PULSE 88; RESP 18; TEMP 36.2; O2SAT 99
--- NOTE | 2024-03-16 16:16 | P.PNPSI_ITS ---
Subjective Subjective Reason For Visit: Schizoaffective disorder Diagnostics Vital Signs (24Hr): BMI result Body Mass Index 25.1 Labs 03/11/24 17:25 03/11/24 17:25 Medications Medications Current Medications Acetaminophen (Acetaminophen 325 Mg Tablet) 650 mg PO Q6H PRN PRN Reason: Headache/Pain Mild Scale (1-3) Last Admin: 01/17/24 23:53 Dose: 325 mg Al Hydroxide/Mg Hydroxide (Magnesium Hydrox/Alum Hydrox 30 Ml Oral.Susp) 30 ml PO Q6H PRN PRN Reason: Heartburn/Nausea Amlodipine Besylate (Amlodipine Besylate 10 Mg Tablet) 10 mg PO DAILY [facility]; Protocol Last Admin: 03/16/24 08:57 Dose: Not Given Aspirin (Aspirin 81 Mg Tab.Chew) 81 mg PO DAILY [facility] Last Admin: 03/16/24 08:57 Dose: Not Given Atorvastatin Calcium (Atorvastatin Calcium 40 Mg Tablet) 40 mg PO DAILY [facility] Last Admin: 03/16/24 08:57 Dose: Not Given Carbamazepine (Carbamazepine 200 Mg Tablet) 200 mg PO BID [facility] Last Admin: 03/16/24 08:01 Dose: 200 mg Clonidine (Clonidine 0.2 Mg Patch.Tdwk) 0.2 mg TRANSDERMA Fr@0900 [facility]; Protocol Last Admin: 03/16/24 08:58 Dose: Not Given Ferrous Sulfate (Ferrous Sulfate 324 Mg Tablet.) 324 mg PO BID [facility] Last Admin: 03/16/24 08:58 Dose: Not Given Haloperidol Lactate (Haloperidol Lactate 5 Mg/Ml Vial) 10 mg IM BID PRN PRN Reason: Refusal of Court PO Haldol Last Admin: 03/14/24 10:40 Dose: 10 mg Haloperidol Lactate (Haloperidol Lactate Oral Conc 10 Mg/5 Ml Oral.Conc) 5 mg PO Q6H PRN PRN Reason: Psychosis or severe agitation Last Admin: 03/15/24 23:35 Dose: 5 mg Haloperidol Lactate (Haloperidol Lactate Oral Conc 10 Mg/5 Ml Oral.Conc) 10 mg PO BID [facility] Last Admin: 03/16/24 08:00 Dose: 10 mg Lorazepam (Lorazepam 1 Mg Tablet) 2 mg PO Q6H PRN PRN Reason: agitation Last Admin: 03/16/24 09:29 Dose: 2 mg Magnesium Hydroxide (Milk Of Magnesia 30 Ml Oral.Susp) 30 ml PO DAILY PRN PRN Reason: Constipation Nicotine Polacrilex (Nicotine Polacrilex 2 Mg Gum) 2 mg BUCCAL Q2H PRN PRN Reason: Nicotine Cravings Trazodone HCl (Trazodone Hcl 50 Mg Tablet) 50 mg PO BEDTIME MRX1 PRN PRN Reason: Insomnia Last Admin: 03/14/24 21:26 Dose: 50 mg Valproic Acid (Valproic Acid Liquid 250 Mg/5 Ml Solution) 750 mg PO BID [facility] Last Admin: 03/16/24 08:01 Dose: 750 mg Vitamin D (Cholecalciferol (Vitamin D3) 25 Mcg Tablet) 50 mcg PO DAILY [facility] Last Admin: 03/16/24 08:58 Dose: Not Given Allergies Allergies Allergy/AdvReac Type Severity Reaction Status Date / Time lithium Allergy Unknown Verified 01/13/24 18:08 Assessment & Plan Assessment & Plan (1) Schizoaffective disorder, bipolar type: Status: Acute Code(s): F25.0 - Schizoaffective disorder, bipolar type (2) Hypertension: Status: Acute Code(s): I10 - Essential (primary) hypertension (3) Diabetes mellitus: Status: Acute Code(s): E11.9 - Type 2 diabetes mellitus without complications Plan 68 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 01/14 continue to follow - gave lambs warning today- and he says the superior court judge will be a she- still refusing medications and quite psychotic takes alot of redirection to settle him poor adls- 01/15- Refuses meds, refuses hospitalist consult-second day File for Section Seven consideration on 01/17. Provide care as he will allow. 01/16: Depakote 250 mg bid Haldol, Lorazepam, Benadryl prn Section 7 to be filed 01/17 Message left for guardian. 01/17: Section Seven filed. . Court scheduled 01/26/24 Pt continues to refuse medicaitons. He is in need of full assist with ADL's and is incontinent. Pt transferred to [facility] this afternoon. 01/19/2024 Patient pending civil commitment loud agitated would not engage in any conversation with this teletypewriter installer non informational healing agitated verbally aggressive. Every attempt being made to get a copy of the patient's Servin order unclear why this has been so problematic. Encourage food and fluids 01/19 continue same treatment 01/21/24 Patient labile agitated intrusive close labs ordered in order to per to protect the community patient wandering into patient's rooms intrusive impulsive laying on another person's bed. Often hostile agitated posturing at times we are still pending copy of reported Servin order encourage p.o. compliance 01/22/2024 Patient did require physical hold escort him out of a room that he jumped in other patient's room and on their bed while there were in it. There was no physical harm and the patient did leave the room his markedly impulsive with poor judgment remains on close observation has intermittently taken Haldol liquid pending civil commitment treatment plan there is a question of Servin order 01/22 The patient had been more agitated. We review his Servin order and we are increasing the Abilify up to 15 mg p.o. daily and adding Haldol p.r.n. since it is in his role years order. We needed to give him some p.r.n. at 14:00. 01/23 The patient is grossly psychotic disrobing and sexually disinhibited we are starting Haldol 2 mg p.o. t.i.d. to target psychosis as per court order treatment over objection order. 01/24 The patient remains very agitated and angry disruptive so we are increasing the Haldol from 2 mg to 5 mg p.o. t.i.d. with a backup IM if the patient refused as per court order. 01/25 we have increased the Haldol but still he is very psychotic and restless. Today he refused his blood work. He needed to be physically held twice. 01/26 the patient remains agitated at times but his last IM backup was yesterday. We are going to increase Abilify up to 20 mg daily to target mood lability and psychosis. 01/29/2024: Increase frequency of prn doses from tid to prn q 6mrs. Poor insight and unable to care for self 02/08 pt has not take any of mood stabilizer. continues to have poor sleep, intrusive and combative requiring IM medications, increase haldol 10mg po TID, back up IM. Will add ativan 1mg po TID, also back up IM. Labs show elevated CK 2300, BUN 20, Cr 1.80, unclear baseline Cr as he does have CKD. Discussed with hospitalist Dr. Gama, to give IV fluids and monitor labs tomorrow. LFTs also elevated suspect this is secondary to elevation in CK and should trend down as CK goes down. 02/09 still agitated, creatinine and CPK slightly high as yesterday, he removed his IV line there is no big difference with IV hydration. We are changing his community role years to have more options since it is not working Abilify and Haldol 02/10 3 chemical restraints yesterday. appears more combative, and somewhat more confused. Will decrease amount of benzo and antihistamine given to him as it seems to be backfiring. did discuss with ICU attending, Dr. Whiteside possibility of transferring there but they would like us to try IV depakote and exhaust all resources prior to considering transfer. Pt did take depakote springkle 1000mg with apple sauce with much encourage. 02/11 continue tx. 02/12 continue same treatment 01/14 continue with Abilify and other court order medications, we are Namenda and the court order. 02/14 Team report improvement today with pt having greater comfort and less agitation. [id number] the staff reported that the patient had been less violent in the last 24 hours 02/16 continue tx. will check depakote and ammonia on 02/17 in AM. 02/17 continue regime and plan of care 02/26/2024: Continue current regimen as per court order 03/03 continue tx. lactulose for now as we don't have new ammonia level, but will try to chack labs. Plan 1. Continue with Abilify and Haldol as per court order. 2. Blood work ordered on March 11 and it came back within normal limits. 3. The patient is still less aggressive but still psychotic will follow closely. Still grossly psychotic and so far he has had 15 restraints in the unit we are waiting for the court order to change his court order treatment plan. According to the social sciences department chair, the court hearing had been moved for this week. Time Spent With Patient Time: Total time managing care of this patient today ____ minutes.
[2024-03-16] MEDS: Haloperidol Lactate Oral Conc 10 MG/5 ML ORAL.CONC 5 MG PO (16:50)
--- NOTE | 2024-03-16 19:14 | PC.NURSE ---
Around 1600 Bret went to get out of bed per constant hairspring setter he went side ways and fell into pillows on the floor. Per constant hairspring setter he did not hit head. Bret got up on his own, and went back to bed, upon assessment he denied having pain, VS obtained, Jarad GUEST SERVICES OFFICER notified, went and assessed him.
[2024-03-16] MEDS: traZODone HCL 50 MG TABLET PO (21:58)
[2024-03-17] MEDS: carBAMazepine 200 MG TABLET PO ×2 (07:54→21:09)
[2024-03-17] MEDS: Haloperidol Lactate Oral Conc 10 MG/5 ML ORAL.CONC PO ×2 (07:54→21:08)
[2024-03-17] MEDS: Aspirin 81 MG TAB.CHEW PO (07:54)
[2024-03-17] MEDS: Valproic Acid Liquid 250 MG/5 ML SOLUTION 750 MG PO ×2 (07:54→21:08)
[2024-03-17 08:00] VITALS: BP 124/64; PULSE 73; RESP 18; TEMP 36.4; O2SAT 99
[2024-03-17] MEDS: Haloperidol Lactate Oral Conc 10 MG/5 ML ORAL.CONC 5 MG PO ×2 (08:48→16:29)
[2024-03-17] MEDS: LORazepam 1 MG TABLET 2 MG PO ×3 (08:48→22:53)
[2024-03-17 10:09] VITALS: BP 124/64
--- NOTE | 2024-03-17 14:57 | P.PNPSI_ITS ---
Subjective Subjective Date of Service: 03/17/24 Reason For Visit: Schizoaffective disorder Interim History: Pt seen, reviewed with the team. Pt is sleeping, on one to one after an episode of agitation requiring medication. Team reports no changes in presentation at the current time. Medication Compliance: Intermittent Side effects from medications: No Attending Groups: No Review of Systems Acute medical concerns: No Review of Systems Review of Systems currently one one to one Mental Status Exam Mental Status Exam Patient Appearance: Fatigued Patient Orientation: Person Level of Consciousness: Sedated Patient Behavior: Asleep Mood Description: Withdrawn Affect Description: Withdrawn Patient Cognition Impaired: Yes Ability to Follow Directions: Good Speech Pattern: No Speech Thought Content: positive for [place] and positive for Poverty of Content Judgement: Poor Diagnostics Vital Signs (24Hr): Vital Signs - 24 hr 03/16/24 16:13 03/17/24 08:00 03/17/24 10:09 Temperature 97.1 F 97.6 F Pulse Rate 88 73 Respiratory Rate 18 18 Blood Pressure 104/54 L 124/64 124/64 Pulse Oximetry 99 99 Oxygen Delivery Method Room Air Room Air BMI result Body Mass Index 25.1 Labs 03/11/24 17:25 03/11/24 17:25 Medications Medications Current Medications Acetaminophen (Acetaminophen 325 Mg Tablet) 650 mg PO Q6H PRN PRN Reason: Headache/Pain Mild Scale (1-3) Last Admin: 01/17/24 23:53 Dose: 325 mg Al Hydroxide/Mg Hydroxide (Magnesium Hydrox/Alum Hydrox 30 Ml Oral.Susp) 30 ml PO Q6H PRN PRN Reason: Heartburn/Nausea Amlodipine Besylate (Amlodipine Besylate 10 Mg Tablet) 10 mg PO DAILY [facility]; Protocol Last Admin: 03/17/24 10:09 Dose: Not Given Aspirin (Aspirin 81 Mg Tab.Chew) 81 mg PO DAILY [facility] Last Admin: 03/17/24 07:54 Dose: 81 mg Atorvastatin Calcium (Atorvastatin Calcium 40 Mg Tablet) 40 mg PO DAILY [facility] Last Admin: 03/17/24 10:18 Dose: Not Given Carbamazepine (Carbamazepine 200 Mg Tablet) 200 mg PO BID [facility] Last Admin: 03/17/24 07:54 Dose: 200 mg Clonidine (Clonidine 0.2 Mg Patch.Tdwk) 0.2 mg TRANSDERMA Fr@0900 [facility]; Protocol Last Admin: 03/16/24 08:58 Dose: Not Given Ferrous Sulfate (Ferrous Sulfate 324 Mg Tablet.Dr) 324 mg PO BID [facility] Last Admin: 03/17/24 10:09 Dose: Not Given Haloperidol Lactate (Haloperidol Lactate 5 Mg/Ml Vial) 10 mg IM BID PRN PRN Reason: Refusal of Court PO Haldol Last Admin: 03/14/24 10:40 Dose: 10 mg Haloperidol Lactate (Haloperidol Lactate Oral Conc 10 Mg/5 Ml Oral.Conc) 5 mg PO Q6H PRN PRN Reason: Psychosis or severe agitation Last Admin: 03/17/24 08:48 Dose: 5 mg Haloperidol Lactate (Haloperidol Lactate Oral Conc 10 Mg/5 Ml Oral.Conc) 10 mg PO BID [facility] Last Admin: 03/17/24 07:54 Dose: 10 mg Lorazepam (Lorazepam 1 Mg Tablet) 2 mg PO Q6H PRN PRN Reason: agitation Last Admin: 03/17/24 08:48 Dose: 2 mg Magnesium Hydroxide (Milk Of Magnesia 30 Ml Oral.Susp) 30 ml PO DAILY PRN PRN Reason: Constipation Nicotine Polacrilex (Nicotine Polacrilex 2 Mg Gum) 2 mg BUCCAL Q2H PRN PRN Reason: Nicotine Cravings Trazodone HCl (Trazodone Hcl 50 Mg Tablet) 50 mg PO BEDTIME MRX1 PRN PRN Reason: Insomnia Last Admin: 03/16/24 21:58 Dose: 50 mg Valproic Acid (Valproic Acid Liquid 250 Mg/5 Ml Solution) 750 mg PO BID [facility] Last Admin: 03/17/24 07:54 Dose: 750 mg Vitamin D (Cholecalciferol (Vitamin D3) 25 Mcg Tablet) 50 mcg PO DAILY [facility] Last Admin: 03/17/24 10:18 Dose: Not Given Allergies Allergies Allergy/AdvReac Type Severity Reaction Status Date / Time lithium Allergy Unknown Verified 01/13/24 18:08 Assessment & Plan Assessment & Plan (1) Schizoaffective disorder, bipolar type: Status: Acute Code(s): F25.0 - Schizoaffective disorder, bipolar type (2) Hypertension: Status: Acute Code(s): I10 - Essential (primary) hypertension (3) Diabetes mellitus: Status: Acute Code(s): E11.9 - Type 2 diabetes mellitus without complications Plan 68 [facility] with chronic psychotic disorder, refusing medication , elevated bp and disorganized and agitated behavior requiring psychiatric hospitalization and treatment not competent to sign cv. 01/14 continue to follow - gave lambs warning today- and he says the environmental marketing representative will be a she- still refusing medications and quite psychotic takes alot of redirection to settle him poor adls- 01/15- Refuses meds, refuses hospitalist consult-second day File for Section Seven consideration on 01/17. Provide care as he will allow. 01/16: Depakote 250 mg bid Haldol, Lorazepam, Benadryl prn Section 7 to be filed 01/17 Message left for guardian. 01/17: Section Seven filed. . Court scheduled 01/26/24 Pt continues to refuse medicaitons. He is in need of full assist with ADL's and is incontinent. Pt transferred to [facility] this afternoon. 01/19/2024 Patient pending civil commitment loud agitated would not engage in any conversation with this insurance underwriter non informational healing agitated verbally aggressive. Every attempt being made to get a copy of the patient's Servin order unclear why this has been so problematic. Encourage food and fluids 01/19 continue same treatment 01/21/24 Patient labile agitated intrusive close labs ordered in order to per to protect the community patient wandering into patient's rooms intrusive impulsive laying on another person's bed. Often hostile agitated posturing at times we are still pending copy of reported Servin order encourage p.o. compliance 01/22/2024 Patient did require physical hold escort him out of a room that he jumped in other patient's room and on their bed while there were in it. There was no physical harm and the patient did leave the room his markedly impulsive with poor judgment remains on close observation has intermittently taken Haldol liquid pending civil commitment treatment plan there is a question of Servin order 01/22 The patient had been more agitated. We review his Servin order and we are increasing the Abilify up to 15 mg p.o. daily and adding Haldol p.r.n. since it is in his role years order. We needed to give him some p.r.n. at 14:00. 01/23 The patient is grossly psychotic disrobing and sexually disinhibited we are starting Haldol 2 mg p.o. t.i.d. to target psychosis as per court order treatment over objection order. 01/24 The patient remains very agitated and angry disruptive so we are increasing the Haldol from 2 mg to 5 mg p.o. t.i.d. with a backup IM if the patient refused as per court order. 01/25 we have increased the Haldol but still he is very psychotic and restless. Today he refused his blood work. He needed to be physically held twice. 01/26 the patient remains agitated at times but his last IM backup was yesterday. We are going to increase Abilify up to 20 mg daily to target mood lability and psychosis. 01/29/2024: Increase frequency of prn doses from tid to prn q 6mrs. Poor insight and unable to care for self 02/08 pt has not take any of mood stabilizer. continues to have poor sleep, intrusive and combative requiring IM medications, increase haldol 10mg po TID, back up IM. Will add ativan 1mg po TID, also back up IM. Labs show elevated CK 2300, BUN 20, Cr 1.80, unclear baseline Cr as he does have CKD. Discussed with hospitalist Dr. Gama, to give IV fluids and monitor labs tomorrow. LFTs also elevated suspect this is secondary to elevation in CK and should trend down as CK goes down. 02/09 still agitated, creatinine and CPK slightly high as yesterday, he removed his IV line there is no big difference with IV hydration. We are changing his community role years to have more options since it is not working Abilify and Haldol 02/10 3 chemical restraints yesterday. appears more combative, and somewhat more confused. Will decrease amount of benzo and antihistamine given to him as it seems to be backfiring. did discuss with ICU attending, Dr. Whiteside possibility of transferring there but they would like us to try IV depakote and exhaust all resources prior to considering transfer. Pt did take depakote springkle 1000mg with apple sauce with much encourage. 02/11 continue tx. 02/12 continue same treatment 01/14 continue with Abilify and other court order medications, we are Namenda and the court order. 02/14 Team report improvement today with pt having greater comfort and less agitation. [id number] the staff reported that the patient had been less violent in the last 24 hours 02/16 continue tx. will check depakote and ammonia on 02/17 in AM. 02/17 continue regime and plan of care 02/26/2024: Continue current regimen as per court order 03/03 continue tx. lactulose for now as we don't have new ammonia level, but will try to chack labs. 03/16- continue medications, held clonidine patch for today due to low BP. repeat labs. 03/17-continue plan of care Reason for continued inpatient stay Substantial Risk for: rapid decompensation Time Spent With Patient Time: Total time managing care of this patient today ____ minutes.
[2024-03-17] MEDS: traZODone HCL 50 MG TABLET PO ×2 (21:09→22:53)
[2024-03-18] MEDS: Valproic Acid Liquid 250 MG/5 ML SOLUTION 750 MG PO ×2 (07:51→20:49)
[2024-03-18] MEDS: Haloperidol Lactate Oral Conc 10 MG/5 ML ORAL.CONC PO ×2 (07:51→20:46)
[2024-03-18 08:00] VITALS: RESP 18
--- NOTE | 2024-03-18 08:42 | P.PNPSI_ITS ---
Subjective Subjective Date of Service: 03/18/24 Reason For Visit: Schizoaffective disorder Interim History: Pt seen and discussed with his team. Team report pt did well early this a.m. He ate and accepted medication. He experienced symptoms after breakfast, agitation, aggression, required prn haldol, lorazepam and is currently with his one to one special resting, appears calm, comfortable and without agitation. One to one present and with no current concerns about his behavior. Medication Compliance: Yes Side effects from medications: No Attending Groups: No Review of Systems Acute medical concerns: No Medical Review of Systems: unchanged Review of Systems Review of Systems Yes Unobtainable due to mental status Mental Status Exam Mental Status Exam Patient Appearance: Fatigued Patient Orientation: Person Level of Consciousness: Sedated Patient Behavior: Asleep Mood Description: Withdrawn Affect Description: Withdrawn Patient Cognition Impaired: Yes Ability to Follow Directions: Good Speech Pattern: No Speech Thought Content: positive for [place] and positive for Poverty of Content Judgement: Poor Diagnostics Vital Signs (24Hr): Vital Signs - 24 hr 03/17/24 10:09 Blood Pressure 124/64 BMI result Body Mass Index 25.1 Labs 03/11/24 17:25 03/11/24 17:25 Medications Medications Current Medications Acetaminophen (Acetaminophen 325 Mg Tablet) 650 mg PO Q6H PRN PRN Reason: Headache/Pain Mild Scale (1-3) Last Admin: 01/17/24 23:53 Dose: 325 mg Al Hydroxide/Mg Hydroxide (Magnesium Hydrox/Alum Hydrox 30 Ml Oral.Susp) 30 ml PO Q6H PRN PRN Reason: Heartburn/Nausea Amlodipine Besylate (Amlodipine Besylate 10 Mg Tablet) 10 mg PO DAILY [facility]; Protocol Last Admin: 03/17/24 10:09 Dose: Not Given Aspirin (Aspirin 81 Mg Tab.Chew) 81 mg PO DAILY [facility] Last Admin: 03/17/24 07:54 Dose: 81 mg Atorvastatin Calcium (Atorvastatin Calcium 40 Mg Tablet) 40 mg PO DAILY [facility] Last Admin: 03/17/24 10:18 Dose: Not Given Carbamazepine (Carbamazepine 200 Mg Tablet) 200 mg PO BID [facility] Last Admin: 03/17/24 21:09 Dose: 200 mg Clonidine (Clonidine 0.2 Mg Patch.Tdwk) 0.2 mg TRANSDERMA Fr@0900 [facility]; Protocol Last Admin: 03/16/24 08:58 Dose: Not Given Ferrous Sulfate (Ferrous Sulfate 324 Mg Tablet.) 324 mg PO BID [facility] Last Admin: 03/17/24 21:09 Dose: Not Given Haloperidol Lactate (Haloperidol Lactate 5 Mg/Ml Vial) 10 mg IM BID PRN PRN Reason: Refusal of Court PO Haldol Last Admin: 03/14/24 10:40 Dose: 10 mg Haloperidol Lactate (Haloperidol Lactate Oral Conc 10 Mg/5 Ml Oral.Conc) 5 mg PO Q6H PRN PRN Reason: Psychosis or severe agitation Last Admin: 03/17/24 16:29 Dose: 5 mg Haloperidol Lactate (Haloperidol Lactate Oral Conc 10 Mg/5 Ml Oral.Conc) 10 mg PO BID [facility] Last Admin: 03/18/24 07:51 Dose: 10 mg Lorazepam (Lorazepam 1 Mg Tablet) 2 mg PO Q6H PRN PRN Reason: agitation Last Admin: 03/17/24 22:53 Dose: 2 mg Magnesium Hydroxide (Milk Of Magnesia 30 Ml Oral.Susp) 30 ml PO DAILY PRN PRN Reason: Constipation Nicotine Polacrilex (Nicotine Polacrilex 2 Mg Gum) 2 mg BUCCAL Q2H PRN PRN Reason: Nicotine Cravings Trazodone HCl (Trazodone Hcl 50 Mg Tablet) 50 mg PO BEDTIME MRX1 PRN PRN Reason: Insomnia Last Admin: 03/17/24 22:53 Dose: 50 mg Valproic Acid (Valproic Acid Liquid 250 Mg/5 Ml Solution) 750 mg PO BID [facility] Last Admin: 03/18/24 07:51 Dose: 750 mg Vitamin D (Cholecalciferol (Vitamin D3) 25 Mcg Tablet) 50 mcg PO DAILY [facility] Last Admin: 03/17/24 10:18 Dose: Not Given Allergies Allergies Allergy/AdvReac Type Severity Reaction Status Date / Time lithium Allergy Unknown Verified 01/13/24 18:08 Assessment & Plan Assessment & Plan (1) Schizoaffective disorder, bipolar type: Status: Acute Code(s): F25.0 - Schizoaffective disorder, bipolar type (2) Hypertension: Status: Acute Code(s): I10 - Essential (primary) hypertension (3) Diabetes mellitus: Status: Acute Code(s): E11.9 - Type 2 diabetes mellitus without complications Plan 68 yo from a [facility] with chronic psychotic disorder, refusing medication , elevated bp and disorganized and agitated behavior requiring psychiatric hospitalization and treatment not competent to sign cv. 11/24 continue to follow - gave lambs warning today- and he says the justowriter operator will be a she- still refusing medications and quite psychotic takes alot of redirection to settle him poor adls- 01/15- Refuses meds, refuses hospitalist consult-second day File for Section Seven consideration on 01/17. Provide care as he will allow. 01/16: Depakote 250 mg bid Haldol, Lorazepam, Benadryl prn Section 7 to be filed 01/17 Message left for guardian. 01/17: Section Seven filed. . Court scheduled 01/26/24 Pt continues to refuse medicaitons. He is in need of full assist with ADL's and is incontinent. Pt transferred to [facility] this afternoon. 01/19/2024 Patient pending civil commitment loud agitated would not engage in any conversation with this typewriter mechanic non informational healing agitated verbally aggressive. Every attempt being made to get a copy of the patient's Servin order unclear why this has been so problematic. Encourage food and fluids 01/19 continue same treatment 01/21/24 Patient labile agitated intrusive close labs ordered in order to per to protect the community patient wandering into patient's rooms intrusive impulsive laying on another person's bed. Often hostile agitated posturing at times we are still pending copy of reported Servin order encourage p.o. compliance 01/22/2024 Patient did require physical hold escort him out of a room that he jumped in other patient's room and on their bed while there were in it. There was no physical harm and the patient did leave the room his markedly impulsive with poor judgment remains on close observation has intermittently taken Haldol liquid pending civil commitment treatment plan there is a question of Servin order 01/22 The patient had been more agitated. We review his Servin order and we are increasing the Abilify up to 15 mg p.o. daily and adding Haldol p.r.n. since it is in his role years order. We needed to give him some p.r.n. at 14:00. 01/23 The patient is grossly psychotic disrobing and sexually disinhibited we are starting Haldol 2 mg p.o. t.i.d. to target psychosis as per court order treatment over objection order. 01/24 The patient remains very agitated and angry disruptive so we are increasing the Haldol from 2 mg to 5 mg p.o. t.i.d. with a backup IM if the patient refused as per court order. 01/25 we have increased the Haldol but still he is very psychotic and restless. Today he refused his blood work. He needed to be physically held twice. 01/26 the patient remains agitated at times but his last IM backup was yesterday. We are going to increase Abilify up to 20 mg daily to target mood lability and psychosis. 01/29/2024: Increase frequency of prn doses from tid to prn q 6mrs. Poor insight and unable to care for self 02/08 pt has not take any of mood stabilizer. continues to have poor sleep, intrusive and combative requiring IM medications, increase haldol 10mg po TID, back up IM. Will add ativan 1mg po TID, also back up IM. Labs show elevated CK 2300, BUN 20, Cr 1.80, unclear baseline Cr as he does have CKD. Discussed with hospitalist Dr. Gama, to give IV fluids and monitor labs tomorrow. LFTs also elevated suspect this is secondary to elevation in CK and should trend down as CK goes down. 02/09 still agitated, creatinine and CPK slightly high as yesterday, he removed his IV line there is no big difference with IV hydration. We are changing his community role years to have more options since it is not working Abilify and Haldol 02/10 3 chemical restraints yesterday. appears more combative, and somewhat more confused. Will decrease amount of benzo and antihistamine given to him as it seems to be backfiring. did discuss with ICU attending, Dr. Whiteside possibility of transferring there but they would like us to try IV depakote and exhaust all resources prior to considering transfer. Pt did take depakote springkle 1000mg with apple sauce with much encourage. 02/11 continue tx. 02/12 continue same treatment 01/14 continue with Abilify and other court order medications, we are Namenda and the court order. 02/14 Team report improvement today with pt having greater comfort and less agitation. 1126 the staff reported that the patient had been less violent in the last 24 hours 02/16 continue tx. will check depakote and ammonia on 02/17 in AM. 02/17 continue regime and plan of care 02/26/2024: Continue current regimen as per court order 03/03 continue tx. lactulose for now as we don't have new ammonia level, but will try to chack labs. 03/16- continue medications, held clonidine patch for today due to low BP. repeat labs. 03/17-continue plan of care 03/18- continue tx Reason for continued inpatient stay Substantial Risk for: rapid decompensation Time Spent With Patient Time: Total time managing care of this patient today ____ minutes.
[2024-03-18] MEDS: Haloperidol Lactate Oral Conc 10 MG/5 ML ORAL.CONC 5 MG PO ×2 (09:36→16:22)
[2024-03-18] MEDS: carBAMazepine 200 MG TABLET PO (09:37)
[2024-03-18] MEDS: LORazepam 1 MG TABLET 2 MG PO ×3 (09:37→20:46)
[2024-03-18] MEDS: Aspirin 81 MG TAB.CHEW PO (09:37)
[2024-03-18 20:00] VITALS: RESP 16
[2024-03-18] MEDS: Ferrous Sulfate 324 MG TABLET.DR PO (20:52)
[2024-03-19] MEDS: Haloperidol Lactate Oral Conc 10 MG/5 ML ORAL.CONC 5 MG PO (06:30)
[2024-03-19] MEDS: LORazepam 1 MG TABLET 2 MG PO ×2 (06:30→22:18)
--- NOTE | 2024-03-19 09:54 | P.PNPSI_ITS ---
Subjective Subjective Date of Service: 03/19/24 Reason For Visit: Schizoaffective disorder Subjective Notes: Section 7 and Section 8 Interim History: The nursing staff reported the patient had been uncooperative needed frequent PRNs but no restraints over the weekend. He slept 7 hours. On interview the patient remains grossly disorganized, I advised him to continue compliance with antipsychotics. Mental Status Exam Mental Status Exam Patient Appearance: Unkempt Patient Orientation: Person Level of Consciousness: Awake and Disoriented Patient Behavior: Guarded and Passive Mood Description: Labile Affect Description: Withdrawn Patient Cognition Impaired: Yes Ability to Follow Directions: Fair Speech Pattern: Impoverished Hallucinations: Auditory Delusions: Paranoid Ideation and Ideas of Reference Thought Process: Distracted and Slowed Thinking Thought Content: positive for [place] and positive for Poverty of Content Judgement: Poor Diagnostics Vital Signs (24Hr): Vital Signs - 24 hr 03/18/24 20:00 Respiratory Rate 16 BMI result Body Mass Index 25.1 Labs 03/11/24 17:25 03/11/24 17:25 Medications Medications Current Medications Acetaminophen (Acetaminophen 325 Mg Tablet) 650 mg PO Q6H PRN PRN Reason: Headache/Pain Mild Scale (1-3) Last Admin: 01/17/24 23:53 Dose: 325 mg Al Hydroxide/Mg Hydroxide (Magnesium Hydrox/Alum Hydrox 30 Ml Oral.Susp) 30 ml PO Q6H PRN PRN Reason: Heartburn/Nausea Amlodipine Besylate (Amlodipine Besylate 10 Mg Tablet) 10 mg PO DAILY [facility]; Protocol Last Admin: 03/18/24 10:26 Dose: Not Given Aspirin (Aspirin 81 Mg Tab.Chew) 81 mg PO DAILY [facility] Last Admin: 03/18/24 09:37 Dose: 81 mg Atorvastatin Calcium (Atorvastatin Calcium 40 Mg Tablet) 40 mg PO DAILY [facility] Last Admin: 03/18/24 10:26 Dose: Not Given Carbamazepine (Carbamazepine 200 Mg Tablet) 200 mg PO BID [facility] Last Admin: 03/18/24 21:33 Dose: Not Given Clonidine (Clonidine 0.2 Mg Patch.Tdwk) 0.2 mg TRANSDERMA Fr@0900 [facility]; Protocol Last Admin: 03/16/24 08:58 Dose: Not Given Ferrous Sulfate (Ferrous Sulfate 324 Mg Tablet.) 324 mg PO BID [facility] Last Admin: 03/18/24 20:52 Dose: 324 mg Haloperidol Lactate (Haloperidol Lactate 5 Mg/Ml Vial) 10 mg IM BID PRN PRN Reason: Refusal of Court PO Haldol Last Admin: 03/14/24 10:40 Dose: 10 mg Haloperidol Lactate (Haloperidol Lactate Oral Conc 10 Mg/5 Ml Oral.Conc) 5 mg PO Q6H PRN PRN Reason: Psychosis or severe agitation Last Admin: 03/19/24 06:30 Dose: 5 mg Haloperidol Lactate (Haloperidol Lactate Oral Conc 10 Mg/5 Ml Oral.Conc) 10 mg PO BID [facility] Last Admin: 03/18/24 20:46 Dose: 10 mg Lorazepam (Lorazepam 1 Mg Tablet) 2 mg PO Q6H PRN PRN Reason: agitation Last Admin: 03/19/24 06:30 Dose: 2 mg Magnesium Hydroxide (Milk Of Magnesia 30 Ml Oral.Susp) 30 ml PO DAILY PRN PRN Reason: Constipation Nicotine Polacrilex (Nicotine Polacrilex 2 Mg Gum) 2 mg BUCCAL Q2H PRN PRN Reason: Nicotine Cravings Trazodone HCl (Trazodone Hcl 50 Mg Tablet) 50 mg PO BEDTIME MRX1 PRN PRN Reason: Insomnia Last Admin: 03/17/24 22:53 Dose: 50 mg Valproic Acid (Valproic Acid Liquid 250 Mg/5 Ml Solution) 750 mg PO BID [facility] Last Admin: 03/18/24 20:49 Dose: 750 mg Vitamin D (Cholecalciferol (Vitamin D3) 25 Mcg Tablet) 50 mcg PO DAILY [facility] Last Admin: 03/18/24 10:27 Dose: Not Given Allergies Allergies Allergy/AdvReac Type Severity Reaction Status Date / Time lithium Allergy Unknown Verified 01/13/24 18:08 Assessment & Plan Assessment & Plan (1) Schizoaffective disorder, bipolar type: Status: Acute Code(s): F25.0 - Schizoaffective disorder, bipolar type (2) Hypertension: Status: Acute Code(s): I10 - Essential (primary) hypertension (3) Diabetes mellitus: Status: Acute Code(s): E11.9 - Type 2 diabetes mellitus without complications Plan 68 [facility] [place] with chronic psychotic disorder, refusing medication , elevated bp and disorganized and agitated behavior requiring psychiatric hospitalization and treatment not competent to sign cv. 01/14 continue to follow - gave lambs warning today- and he says the production line mechanic will be a she- still refusing medications and quite psychotic takes alot of redirection to settle him poor adls- 01/15- Refuses meds, refuses hospitalist consult-second day File for Section Seven consideration on 01/17. Provide care as he will allow. 01/16: Depakote 250 mg bid Haldol, Lorazepam, Benadryl prn Section 7 to be filed 01/17 Message left for guardian. 01/17: Section Seven filed. . Court scheduled 01/26/24 Pt continues to refuse medicaitons. He is in need of full assist with ADL's and is incontinent. Pt transferred to [facility] this afternoon. 01/19/2024 Patient pending civil commitment loud agitated would not engage in any conversation with this consumer loan underwriter non informational healing agitated verbally aggressive. Every attempt being made to get a copy of the patient's Servin order unclear why this has been so problematic. Encourage food and fluids 01/19 continue same treatment 01/21/24 Patient labile agitated intrusive close labs ordered in order to per to protect the community patient wandering into patient's rooms intrusive impulsive laying on another person's bed. Often hostile agitated posturing at times we are still pending copy of reported Servin order encourage p.o. compliance 01/22/2024 Patient did require physical hold escort him out of a room that he jumped in other patient's room and on their bed while there were in it. There was no physical harm and the patient did leave the room his markedly impulsive with poor judgment remains on close observation has intermittently taken Haldol liquid pending civil commitment treatment plan there is a question of Servin order 01/22 The patient had been more agitated. We review his Servin order and we are increasing the Abilify up to 15 mg p.o. daily and adding Haldol p.r.n. since it is in his role years order. We needed to give him some p.r.n. at 14:00. 01/23 The patient is grossly psychotic disrobing and sexually disinhibited we are starting Haldol 2 mg p.o. t.i.d. to target psychosis as per court order treatment over objection order. 01/24 The patient remains very agitated and angry disruptive so we are increasing the Haldol from 2 mg to 5 mg p.o. t.i.d. with a backup IM if the patient refused as per court order. 01/25 we have increased the Haldol but still he is very psychotic and restless. Today he refused his blood work. He needed to be physically held twice. 01/26 the patient remains agitated at times but his last IM backup was yesterday. We are going to increase Abilify up to 20 mg daily to target mood lability and psychosis. 01/29/2024: Increase frequency of prn doses from tid to prn q 6mrs. Poor insight and unable to care for self 02/08 pt has not take any of mood stabilizer. continues to have poor sleep, intrusive and combative requiring IM medications, increase haldol 10mg po TID, back up IM. Will add ativan 1mg po TID, also back up IM. Labs show elevated CK 2300, BUN 20, Cr 1.80, unclear baseline Cr as he does have CKD. Discussed with hospitalist Dr. Gama, to give IV fluids and monitor labs tomorrow. LFTs also elevated suspect this is secondary to elevation in CK and should trend down as CK goes down. 02/09 still agitated, creatinine and CPK slightly high as yesterday, he removed his IV line there is no big difference with IV hydration. We are changing his community role years to have more options since it is not working Abilify and Haldol 02/10 3 chemical restraints yesterday. appears more combative, and somewhat more confused. Will decrease amount of benzo and antihistamine given to him as it seems to be backfiring. did discuss with ICU attending, Dr. Whiteside possibility of transferring there but they would like us to try IV depakote and exhaust all resources prior to considering transfer. Pt did take depakote springkle 1000mg with apple sauce with much encourage. 02/11 continue tx. 02/12 continue same treatment 01/14 continue with Abilify and other court order medications, we are Namenda and the court order. 02/14 Team report improvement today with pt having greater comfort and less agitation. 1126 the staff reported that the patient had been less violent in the last 24 hours 02/16 continue tx. will check depakote and ammonia on 02/17 in AM. 02/17 continue regime and plan of care 02/26/2024: Continue current regimen as per court order 03/03 continue tx. lactulose for now as we don't have new ammonia level, but will try to chack labs. 03/16- continue medications, held clonidine patch for today due to low BP. repeat labs. 03/17-continue plan of care 03/18- continue tx 03/19 continue same treatment Reason for continued inpatient stay Substantial Risk for: inability to function, rapid decompensation and med/psych decompensation Time Spent With Patient Time: Total time managing care of this patient today __20__ minutes.
[2024-03-19] MEDS: Aspirin 81 MG TAB.CHEW PO (11:54)
[2024-03-19] MEDS: Valproic Acid Liquid 250 MG/5 ML SOLUTION 750 MG PO ×2 (11:54→22:14)
[2024-03-19] MEDS: Haloperidol Lactate Oral Conc 10 MG/5 ML ORAL.CONC PO ×2 (11:54→22:15)
[2024-03-19] MEDS: carBAMazepine 200 MG TABLET PO (22:27)
[2024-03-20] MEDS: Haloperidol Lactate Oral Conc 10 MG/5 ML ORAL.CONC 5 MG PO ×2 (02:27→16:40)
[2024-03-20] MEDS: traZODone HCL 50 MG TABLET PO ×3 (02:27→21:52)
[2024-03-20] MEDS: LORazepam 1 MG TABLET 2 MG PO ×2 (04:34→16:39)
[2024-03-20] MEDS: Valproic Acid Liquid 250 MG/5 ML SOLUTION 750 MG PO ×2 (07:48→20:44)
[2024-03-20] MEDS: Haloperidol Lactate Oral Conc 10 MG/5 ML ORAL.CONC PO ×2 (07:49→20:44)
[2024-03-20] MEDS: carBAMazepine 200 MG TABLET PO ×2 (07:49→20:44)
[2024-03-20] MEDS: Aspirin 81 MG TAB.CHEW PO (07:49)
[2024-03-20 08:20] VITALS: BP 154/77; PULSE 73; RESP 18; TEMP 35.8; O2SAT 100
[2024-03-20 09:17] VITALS: BP 154/77
--- NOTE | 2024-03-20 09:39 | PM.EVENT ---
Event Note Date of Service: 03/20/24 Event Note: Rapid response called around 8 am for chocking event. i went directly and upon arrival his nurse was able to retrieve a grape from his throat. His O2 sat was 100% on room air. he was altered but then started to make sounds and was responsive to the staff. back to baseline according to his nurse. He was unable to provide any details about the incident. Will change diet to Pureed for now To check a CXR. Time Spent With Patient Time: Total time managing care of this patient today ____ minutes.
--- NOTE | 2024-03-20 09:58 | PC.NURSE ---
At 0810 patient was eating breakfast in the kitchen when he choked on some fruit. The Heimlich maneuver was given by nursing staff and the food was removed from his mouth. A rapid response was called. Dr Watson, Caitie Rosenbaum RN, Dr Petty were all present along with the nursing sign builder supervisor and RT. Vital signs [id number] qnd O2 Sat 100% on room air. CXR and labs ordered . Call out to Jessica Zhao, patients legal guardian and a message was left for her to call us back at 0935 today. Patient is alert and breathing without difficulty. Diet to be changed to chopped by Dr. Watson.
--- NOTE | 2024-03-20 11:12 | HO.PSYCHPN ---
Subjective Subjective Date of Service: 03/20/24 Reason For Visit: Schizoaffective disorder Subjective Notes: Section 7 and Section 8 Interim History: The nursing staff reported the patient refused his breakfast yesterday. He had poor appetite and he had been having druze delusions. He received p.r.n. medications at night. Today in the morning a code was called since the patient was choking with a grape. A Heimlich maneuver provided by the nurse safety him. We ordered chest x-ray but he did not cooperate and has only lateral that showed probably pneumonia on the back. We are waiting for blood work. Mental Status Exam Mental Status Exam Patient Appearance: Unkempt Patient Orientation: Person and Situation Level of Consciousness: Awake Patient Behavior: Guarded and Passive Mood Description: Withdrawn Affect Description: Labile Patient Cognition Impaired: Yes Ability to Follow Directions: Poor Speech Pattern: Slurred and Impoverished Hallucinations: Auditory Delusions: Paranoid Ideation, Ideas of Reference and Bizarre Thought Process: Illogical and Distracted Thought Content: positive for [place] and positive for Poverty of Content Judgement: Poor Diagnostics Vital Signs (24Hr): Vital Signs - 24 hr 03/20/24 08:20 03/20/24 09:17 Temperature 96.4 F L Pulse Rate 73 Respiratory Rate 18 Blood Pressure 154/77 H 154/77 H Pulse Oximetry 100 Oxygen Delivery Method Room Air BMI result Body Mass Index 25.1 Labs 03/11/24 17:25 03/11/24 17:25 Imaging Radiology Impressions: ITS Impressions Chest X-Ray 03/20/24 08:33 IMPRESSION: Extremely limited exam. Only lateral views could be obtained. Suspect basilar airspace opacity, possibly pneumonia. Electronically signed by: Fortino Dumont MD 03/20/2024 10:10 AM [facility] Medications Medications Current Medications Acetaminophen (Acetaminophen 325 Mg Tablet) 650 mg PO Q6H PRN PRN Reason: Headache/Pain Mild Scale (1-3) Last Admin: 01/17/24 23:53 Dose: 325 mg Al Hydroxide/Mg Hydroxide (Magnesium Hydrox/Alum Hydrox 30 Ml Oral.Susp) 30 ml PO Q6H PRN PRN Reason: Heartburn/Nausea Amlodipine Besylate (Amlodipine Besylate 10 Mg Tablet) 10 mg PO DAILY [facility]; Protocol Last Admin: 03/20/24 09:17 Dose: Not Given Aspirin (Aspirin 81 Mg Tab.Chew) 81 mg PO DAILY [facility] Last Admin: 03/20/24 07:49 Dose: 81 mg Atorvastatin Calcium (Atorvastatin Calcium 40 Mg Tablet) 40 mg PO DAILY [facility] Last Admin: 03/20/24 09:17 Dose: Not Given Carbamazepine (Carbamazepine 200 Mg Tablet) 200 mg PO BID [facility] Last Admin: 03/20/24 07:49 Dose: 200 mg Clonidine (Clonidine 0.2 Mg Patch.Tdwk) 0.2 mg TRANSDERMA Fr@0900 [facility]; Protocol Last Admin: 03/16/24 08:58 Dose: Not Given Ferrous Sulfate (Ferrous Sulfate 324 Mg Tablet.Dr) 324 mg PO BID [facility] Last Admin: 03/20/24 09:17 Dose: Not Given Haloperidol Lactate (Haloperidol Lactate 5 Mg/Ml Vial) 10 mg IM BID PRN PRN Reason: Refusal of Court PO Haldol Last Admin: 03/14/24 10:40 Dose: 10 mg Haloperidol Lactate (Haloperidol Lactate Oral Conc 10 Mg/5 Ml Oral.Conc) 5 mg PO Q6H PRN PRN Reason: Psychosis or severe agitation Last Admin: 03/20/24 02:27 Dose: 5 mg Haloperidol Lactate (Haloperidol Lactate Oral Conc 10 Mg/5 Ml Oral.Conc) 10 mg PO BID [facility] Last Admin: 03/20/24 07:49 Dose: 10 mg Lorazepam (Lorazepam 1 Mg Tablet) 2 mg PO Q6H PRN PRN Reason: agitation Last Admin: 03/20/24 04:34 Dose: 2 mg Magnesium Hydroxide (Milk Of Magnesia 30 Ml Oral.Susp) 30 ml PO DAILY PRN PRN Reason: Constipation Nicotine Polacrilex (Nicotine Polacrilex 2 Mg Gum) 2 mg BUCCAL Q2H PRN PRN Reason: Nicotine Cravings Trazodone HCl (Trazodone Hcl 50 Mg Tablet) 50 mg PO BEDTIME MRX1 PRN PRN Reason: Insomnia Last Admin: 03/20/24 02:27 Dose: 50 mg Valproic Acid (Valproic Acid Liquid 250 Mg/5 Ml Solution) 750 mg PO BID [facility] Last Admin: 03/20/24 07:48 Dose: 750 mg Vitamin D (Cholecalciferol (Vitamin D3) 25 Mcg Tablet) 50 mcg PO DAILY [facility] Last Admin: 03/20/24 09:17 Dose: Not Given Allergies Allergies Allergy/AdvReac Type Severity Reaction Status Date / Time lithium Allergy Unknown Verified 01/13/24 18:08 Assessment & Plan Assessment & Plan (1) Schizoaffective disorder, bipolar type: Status: Acute Code(s): F25.0 - Schizoaffective disorder, bipolar type (2) Hypertension: Status: Acute Code(s): I10 - Essential (primary) hypertension (3) Diabetes mellitus: Status: Acute Code(s): E11.9 - Type 2 diabetes mellitus without complications Plan 68 yo from a custodial with chronic psychotic disorder, refusing medication , elevated bp and disorganized and agitated behavior requiring psychiatric hospitalization and treatment not competent to sign cv. 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 Provide care as he will allow. 01/16: Depakote 250 mg bid Haldol, Lorazepam, Benadryl prn Section 7 to be filed 01/17 Message left for guardian. 01/17: Section Seven filed. . Court scheduled 01/26/24 Pt continues to refuse medicaitons. He is in need of full assist with ADL's and is incontinent. Pt transferred to [facility] this afternoon. 01/19/2024 Patient pending civil commitment loud agitated would not engage in any conversation with this engineering technical writer non informational healing agitated verbally aggressive. Every attempt being made to get a copy of the patient's Servin order unclear why this has been so problematic. Encourage food and fluids 01/19 continue same treatment 01/21/24 Patient labile agitated intrusive close labs ordered in order to per to protect the community patient wandering into patient's rooms intrusive impulsive laying on another person's bed. Often hostile agitated posturing at times we are still pending copy of reported Servin order encourage p.o. compliance 01/22/2024 Patient did require physical hold escort him out of a room that he jumped in other patient's room and on their bed while there were in it. There was no physical harm and the patient did leave the room his markedly impulsive with poor judgment remains on close observation has intermittently taken Haldol liquid pending civil commitment treatment plan there is a question of Servin order 01/22 The patient had been more agitated. We review his Servin order and we are increasing the Abilify up to 15 mg p.o. daily and adding Haldol p.r.n. since it is in his role years order. We needed to give him some p.r.n. at 14:00. 01/23 The patient is grossly psychotic disrobing and sexually disinhibited we are starting Haldol 2 mg p.o. t.i.d. to target psychosis as per court order treatment over objection order. 01/24 The patient remains very agitated and angry disruptive so we are increasing the Haldol from 2 mg to 5 mg p.o. t.i.d. with a backup IM if the patient refused as per court order. 01/25 we have increased the Haldol but still he is very psychotic and restless. Today he refused his blood work. He needed to be physically held twice. 01/26 the patient remains agitated at times but his last IM backup was yesterday. We are going to increase Abilify up to 20 mg daily to target mood lability and psychosis. 01/29/2024: Increase frequency of prn doses from tid to prn q 6mrs. Poor insight and unable to care for self 02/08 pt has not take any of mood stabilizer. continues to have poor sleep, intrusive and combative requiring IM medications, increase haldol 10mg po TID, back up IM. Will add ativan 1mg po TID, also back up IM. Labs show elevated CK 2300, BUN 20, Cr 1.80, unclear baseline Cr as he does have CKD. Discussed with hospitalist Dr. Gama, to give IV fluids and monitor labs tomorrow. LFTs also elevated suspect this is secondary to elevation in CK and should trend down as CK goes down. 02/09 still agitated, creatinine and CPK slightly high as yesterday, he removed his IV line there is no big difference with IV hydration. We are changing his community role years to have more options since it is not working Abilify and Haldol 02/10 3 chemical restraints yesterday. appears more combative, and somewhat more confused. Will decrease amount of benzo and antihistamine given to him as it seems to be backfiring. did discuss with ICU attending, Dr. Whiteside possibility of transferring there but they would like us to try IV depakote and exhaust all resources prior to considering transfer. Pt did take depakote springkle 1000mg with apple sauce with much encourage. 02/11 continue tx. 02/12 continue same treatment 01/14 continue with Abilify and other court order medications, we are Namenda and the court order. 02/14 Team report improvement today with pt having greater comfort and less agitation. 1126 the staff reported that the patient had been less violent in the last 24 hours 02/16 continue tx. will check depakote and ammonia on 02/17 in AM. 02/17 continue regime and plan of care 02/26/2024: Continue current regimen as per court order 03/03 continue tx. lactulose for now as we don't have new ammonia level, but will try to chack labs. 03/16- continue medications, held clonidine patch for today due to low BP. repeat labs. 03/17-continue plan of care 03/18- continue tx 03/19 continue same treatment 03/20 waiting for CBC, basic metabolic panel and ammonia level. Today he nearly choked with a grape. We are going to change his diet to chopped Reason for continued inpatient stay Substantial Risk for: inability to function, rapid decompensation and med/psych decompensation Time Spent With Patient Time: Total time managing care of this patient today __20__ minutes.
--- NOTE | 2024-03-21 | ECG_ITS ---
Test Reason : FALL S1 Blood Pressure : */* mmHG Vent. Rate : 65 BPM Atrial Rate : 65 BPM P-R Int : 152 ms QRS Dur : 94 ms QT Int : 392 ms P-R-T Axes : 53 -44 75 degrees QTcB Int : 407 ms Normal sinus rhythm with sinus arrhythmia Left axis deviation Minimal voltage criteria for LVH, may be normal variant ( R in aVL ) Abnormal ECG When compared with ECG of 11-Mar-2024 17:08, Criteria for Lateral infarct are no longer Present Referred By: Yesi Arvizu Electronically Signed By: SOLANGE NOVAK
[2024-03-21] MEDS: Haloperidol Lactate Oral Conc 10 MG/5 ML ORAL.CONC 5 MG PO ×2 (01:17→12:53)
[2024-03-21] MEDS: LORazepam 1 MG TABLET 2 MG PO ×3 (01:18→21:04)
[2024-03-21] MEDS: Aspirin 81 MG TAB.CHEW PO (07:34)
[2024-03-21] MEDS: carBAMazepine 200 MG TABLET PO ×2 (07:35→21:04)
[2024-03-21] MEDS: Haloperidol Lactate Oral Conc 10 MG/5 ML ORAL.CONC PO ×2 (07:37→21:04)
[2024-03-21] MEDS: Valproic Acid Liquid 250 MG/5 ML SOLUTION 750 MG PO ×2 (07:37→21:04)
[2024-03-21 08:00] VITALS: BP 170/85; PULSE 69; RESP 18; TEMP 36.2; O2SAT 98
[2024-03-21 10:00] VITALS: BP 161/83; RESP 18; TEMP 36.2
--- NOTE | 2024-03-21 11:01 | P.EN_ITS ---
Event Note Date of Service: 03/21/24 Event Note: PHARMACY TECHNICIAN TRAINEE called for unwitnessed fall in this 68yo M with psychotic disorder Airway intact, breathing normal, pulses normal, pupils equal/round/reactive Unable to obtain history from pt due to psychosis; per nursing staff pt at baseline mental status Vitals reviewed, no concerns Will transport to CT with spine precautions and obtain CT head, C-spine, pelvis Time Spent With Patient Time: Total time managing care of this patient today ____ minutes.
[2024-03-21 11:26] VITALS: BP 161/83; PULSE 69; RESP 18; TEMP 36.2; O2SAT 99
--- NOTE | 2024-03-21 14:28 | P.PNPSI_ITS ---
Subjective Subjective Date of Service: 03/21/24 Reason For Visit: Schizoaffective disorder Subjective Notes: Section 7 and Section 8 Interim History: The nursing staff reported the patient to his medications, yesterday he put himself on the floor but later on he went to his room. He slept 7 hours. Today in the morning he had a fall and we did a CT scan head and pelvis with no injuries. He refused again his blood work. Mental Status Exam Mental Status Exam Patient Appearance: Unkempt Patient Orientation: Person Level of Consciousness: Disoriented and Inappropriate Patient Behavior: Guarded and Passive Mood Description: Withdrawn Affect Description: Labile Patient Cognition Impaired: Yes Ability to Follow Directions: Good Speech Pattern: Clear Hallucinations: None Delusions: Paranoid Ideation and Ideas of Reference Thought Process: Distracted and Slowed Thinking Thought Content: positive for [place] and positive for Poverty of Content Judgement: Poor Diagnostics Vital Signs (24Hr): Vital Signs - 24 hr 03/21/24 08:00 03/21/24 10:00 03/21/24 11:26 Temperature 97.1 F 97.1 F 97.1 F Pulse Rate 69 69 Respiratory Rate 18 18 18 Blood Pressure 170/85 H 161/83 H 161/83 H Pulse Oximetry 98 99 Oxygen Delivery Method Room Air Room Air BMI result Body Mass Index 25.1 Labs 03/11/24 17:25 03/11/24 17:25 Imaging Radiology Impressions: ITS Impressions Chest X-Ray 03/20/24 08:33 IMPRESSION: Extremely limited exam. Only lateral views could be obtained. Suspect basilar airspace opacity, possibly pneumonia. Electronically signed by: Fortino Dumont MD 03/20/2024 10:10 AM EST RP Cervical Spine CT 03/21/24 11:18 IMPRESSION: 1. Allowing for suboptimal positioning, there is no CT evidence of acute cervical spine fracture or injury. 2. Degenerative changes with bulky ventral osteophytes spanning C4-C6, appearance in keeping with DISH. Electronically signed by: Fortino Dumont MD 03/21/2024 12:01 PM EST RP Head CT 03/21/24 11:18 IMPRESSION: 1. No acute intracranial abnormality. No acute fractures seen. 2. Stable chronic findings as discussed. Electronically signed by: Fortino Dumont MD 03/21/2024 11:54 AM EST RP Pelvis CT 03/21/24 11:18 IMPRESSION: 1. No acute bony abnormalities. No fractures. 2. Constipation with a large amount of stool in the rectum and sigmoid colon. 3. Mild thickening of the urinary bladder wall despite underdistention, nonspecific. Differential includes the detrusor hypertrophy, neurogenic bladder, or possibly cystitis. Electronically signed by: Fortino Dumont MD 03/21/2024 12:09 PM EST RP Medications Medications Current Medications Acetaminophen (Acetaminophen 325 Mg Tablet) 650 mg PO Q6H PRN PRN Reason: Headache/Pain Mild Scale (1-3) Last Admin: 01/17/24 23:53 Dose: 325 mg Al Hydroxide/Mg Hydroxide (Magnesium Hydrox/Alum Hydrox 30 Ml Oral.Susp) 30 ml PO Q6H PRN PRN Reason: Heartburn/Nausea Amlodipine Besylate (Amlodipine Besylate 10 Mg Tablet) 10 mg PO DAILY [facility]; Protocol Last Admin: 03/21/24 10:04 Dose: Not Given Aspirin (Aspirin 81 Mg Tab.Chew) 81 mg PO DAILY [facility] Last Admin: 03/21/24 07:34 Dose: 81 mg Atorvastatin Calcium (Atorvastatin Calcium 40 Mg Tablet) 40 mg PO DAILY [facility] Last Admin: 03/21/24 10:04 Dose: Not Given Carbamazepine (Carbamazepine 200 Mg Tablet) 200 mg PO BID [facility] Last Admin: 03/21/24 07:35 Dose: 200 mg Clonidine (Clonidine 0.2 Mg Patch.Tdwk) 0.2 mg TRANSDERMA Fr@0900 [facility]; Protocol Last Admin: 03/16/24 08:58 Dose: Not Given Ferrous Sulfate (Ferrous Sulfate 324 Mg Tablet.Dr) 324 mg PO BID [facility] Last Admin: 03/21/24 10:05 Dose: Not Given Haloperidol Lactate (Haloperidol Lactate 5 Mg/Ml Vial) 10 mg IM BID PRN PRN Reason: Refusal of Court PO Haldol Last Admin: 03/14/24 10:40 Dose: 10 mg Haloperidol Lactate (Haloperidol Lactate Oral Conc 10 Mg/5 Ml Oral.Conc) 5 mg PO Q6H PRN PRN Reason: Psychosis or severe agitation Last Admin: 03/21/24 12:53 Dose: 5 mg Haloperidol Lactate (Haloperidol Lactate Oral Conc 10 Mg/5 Ml Oral.Conc) 10 mg PO BID [facility] Last Admin: 03/21/24 07:37 Dose: 10 mg Lorazepam (Lorazepam 1 Mg Tablet) 2 mg PO Q6H PRN PRN Reason: agitation Last Admin: 03/21/24 13:07 Dose: 2 mg Magnesium Hydroxide (Milk Of Magnesia 30 Ml Oral.Susp) 30 ml PO DAILY PRN PRN Reason: Constipation Nicotine Polacrilex (Nicotine Polacrilex 2 Mg Gum) 2 mg BUCCAL Q2H PRN PRN Reason: Nicotine Cravings Trazodone HCl (Trazodone Hcl 50 Mg Tablet) 50 mg PO BEDTIME MRX1 PRN PRN Reason: Insomnia Last Admin: 03/20/24 21:52 Dose: 50 mg Valproic Acid (Valproic Acid Liquid 250 Mg/5 Ml Solution) 750 mg PO BID [facility] Last Admin: 03/21/24 07:37 Dose: 750 mg Vitamin D (Cholecalciferol (Vitamin D3) 25 Mcg Tablet) 50 mcg PO DAILY [facility] Last Admin: 03/21/24 10:05 Dose: Not Given Allergies Allergies Allergy/AdvReac Type Severity Reaction Status Date / Time lithium Allergy Unknown Verified 01/13/24 18:08 Assessment & Plan Assessment & Plan (1) Schizoaffective disorder, bipolar type: Status: Acute Code(s): F25.0 - Schizoaffective disorder, bipolar type (2) Hypertension: Status: Acute Code(s): I10 - Essential (primary) hypertension (3) Diabetes mellitus: Status: Acute Code(s): E11.9 - Type 2 diabetes mellitus without complications Plan 68 yo from a half[place]way with chronic psychotic disorder, refusing medication , elevated bp and disorganized and agitated behavior requiring psychiatric hospitalization and treatment not competent to sign cv. 01/14 continue to follow - gave lambs warning today- and he says the infantry weapons officer will be a she- still refusing medications and quite psychotic takes alot of redirection to settle him poor adls- 01/15- Refuses meds, refuses hospitalist consult-second day File for Section Seven consideration on 01/17. Provide care as he will allow. 01/16: Depakote 250 mg bid Haldol, Lorazepam, Benadryl prn Section 7 to be filed 01/17 Message left for guardian. 01/17: Section Seven filed. . Court scheduled 01/26/24 Pt continues to refuse medicaitons. He is in need of full assist with ADL's and is incontinent. Pt transferred to [facility] this afternoon. 01/19/2024 Patient pending civil commitment loud agitated would not engage in any conversation with this television writer non informational healing agitated verbally aggressive. Every attempt being made to get a copy of the patient's Servin order unclear why this has been so problematic. Encourage food and fluids 01/19 continue same treatment 01/21/24 Patient labile agitated intrusive close labs ordered in order to per to protect the community patient wandering into patient's rooms intrusive impulsive laying on another person's bed. Often hostile agitated posturing at times we are still pending copy of reported Servin order encourage p.o. compliance 01/22/2024 Patient did require physical hold escort him out of a room that he jumped in other patient's room and on their bed while there were in it. There was no physical harm and the patient did leave the room his markedly impulsive with poor judgment remains on close observation has intermittently taken Haldol liquid pending civil commitment treatment plan there is a question of Servin order 01/22 The patient had been more agitated. We review his Servin order and we are increasing the Abilify up to 15 mg p.o. daily and adding Haldol p.r.n. since it is in his role years order. We needed to give him some p.r.n. at 14:00. 01/23 The patient is grossly psychotic disrobing and sexually disinhibited we are starting Haldol 2 mg p.o. t.i.d. to target psychosis as per court order treatment over objection order. 01/24 The patient remains very agitated and angry disruptive so we are increasing the Haldol from 2 mg to 5 mg p.o. t.i.d. with a backup IM if the patient refused as per court order. 01/25 we have increased the Haldol but still he is very psychotic and restless. Today he refused his blood work. He needed to be physically held twice. 01/26 the patient remains agitated at times but his last IM backup was yesterday. We are going to increase Abilify up to 20 mg daily to target mood lability and psychosis. 01/29/2024: Increase frequency of prn doses from tid to prn q 6mrs. Poor insight and unable to care for self 02/08 pt has not take any of mood stabilizer. continues to have poor sleep, intrusive and combative requiring IM medications, increase haldol 10mg po TID, back up IM. Will add ativan 1mg po TID, also back up IM. Labs show elevated CK 2300, BUN 20, Cr 1.80, unclear baseline Cr as he does have CKD. Discussed with hospitalist Dr. Gama, to give IV fluids and monitor labs tomorrow. LFTs also elevated suspect this is secondary to elevation in CK and should trend down as CK goes down. 02/09 still agitated, creatinine and CPK slightly high as yesterday, he removed his IV line there is no big difference with IV hydration. We are changing his community role years to have more options since it is not working Abilify and Haldol 02/10 3 chemical restraints yesterday. appears more combative, and somewhat more confused. Will decrease amount of benzo and antihistamine given to him as it seems to be backfiring. did discuss with ICU attending, Dr. Whiteside possibility of transferring there but they would like us to try IV depakote and exhaust all resources prior to considering transfer. Pt did take depakote springkle 1000mg with apple sauce with much encourage. 02/11 continue tx. 02/12 continue same treatment 01/14 continue with Abilify and other court order medications, we are Namenda and the court order. 02/14 Team report improvement today with pt having greater comfort and less agitation. 1126 the staff reported that the patient had been less violent in the last 24 hours 02/16 continue tx. will check depakote and ammonia on 02/17 in AM. 02/17 continue regime and plan of care 02/26/2024: Continue current regimen as per court order 03/03 continue tx. lactulose for now as we don't have new ammonia level, but will try to chack labs. 03/16- continue medications, held clonidine patch for today due to low BP. repeat labs. 03/17-continue plan of care 03/18- continue tx 03/19 continue same treatment 03/20 waiting for CBC, basic metabolic panel and ammonia level. Today he nearly choked with a grape. We are going to change his diet to chopped 03/21 patient had a fall and he was assessed. No injuries as per CT scan of head and pelvis. Again he refused again his blood work vital signs within normal limits. Reason for continued inpatient stay Substantial Risk for: inability to function, rapid decompensation and med/psych decompensation Time Spent With Patient Time: Total time managing care of this patient today __20__ minutes.
--- NOTE | 2024-03-21 15:21 | PC.NURSE ---
At 1054 patient was sitting on his bed waiting to be changed into dry clothes d/t incontinence, staff was taking sheets off the patient's bed, he then rolled over and hit his head jail on staff's foot and floor. A rapid response was called, Dr. Watson, Caitie Rosenbaum RN, Dr Petty were all present along with the nursing insurance office supervisor and RT. Vital signs 97.1-18-69-170/85 and O2 Sat 98% on room air. CAT, CT of head, spine,pelvis and labs ordered. Called Jessica Zhao, patient's legal guardian and a message was left. The patient came back and significant findings were noted
[2024-03-21 16:03] LABS: MANUAL DIFF FLAG NO
[2024-03-21 16:10] LABS: Basophils Percent Auto 0.5 % (0-2); Eosinophils Absolute Auto 0.1 X10*3/uL (0.0-0.4); Eosinophils Percent Auto 1.7 % (0-4); Hematocrit 35.8 % (42.0-52.0); Hemoglobin 11.3 g/dl (14.0-18.0); Imm Gran Abs Auto 0.04 X10*3/uL (0.00-0.03); Lymphocytes Absolute Auto 1.9 X10*3/uL (1.2-4.9); Mean Corpuscular HGB Conc 31.6 g/dl (31.0-36.0); Mean Corpuscular Hemoglobin 28.3 pg (27.0-33.0); Mean Corpuscular Volume 89.7 fL (80.0-98.0); Mean Platelet Volume 10.3 fL (9.4-12.4); Monocytes Absolute Auto 0.3 X10*3/uL (0.1-1.2); Monocytes Percent Auto 7.2 % (2-11); Neutrophils Absolute Auto 1.7 x10*3/uL (2.0-8.3); Neutrophils Percent Auto 41.6 % (45-73); Platelet Count 151 X10*3/uL (160-400); Red Blood Count 3.99 X10*6/uL (4.60-5.80); Red Cell Distribution Width 14.9 % (11.0-16.0)
[2024-03-21 16:11] LABS: Ammonia 40 umol/L (13-55)
[2024-03-21 16:20] LABS: Anion Gap 10 (12-20); Blood Urea Nitrogen 8 mg/dL (9-16); Calcium 8.5 mg/dL (8.4-10.2); Carbon Dioxide 24 mmol/L (22-29); Chloride 106 mmol/L (96-108); Creatinine Clr Calc Pharmacy 57.1; Estimated Glomerular Filt Rate 56; Glucose Random 107 mg/dL (60-115); Potassium 4.9 mmol/L (3.3-5.1); Sodium 135 mmol/L (135-145)
[2024-03-21] MEDS: traZODone HCL 50 MG TABLET PO (21:04)
[2024-03-22] MEDS: Atorvastatin Calcium 40 MG TABLET PO (07:38)
[2024-03-22] MEDS: Aspirin 81 MG TAB.CHEW PO (07:38)
[2024-03-22] MEDS: carBAMazepine 200 MG TABLET PO ×2 (07:38→19:55)
[2024-03-22 08:00] VITALS: RESP 16
[2024-03-22] MEDS: Valproic Acid Liquid 250 MG/5 ML SOLUTION 750 MG PO ×2 (08:50→19:54)
[2024-03-22] MEDS: Haloperidol Lactate Oral Conc 10 MG/5 ML ORAL.CONC PO ×2 (08:50→19:54)
[2024-03-22] MEDS: Haloperidol Lactate Oral Conc 10 MG/5 ML ORAL.CONC 5 MG PO (13:53)
[2024-03-22] MEDS: LORazepam 1 MG TABLET 2 MG PO ×2 (13:54→19:54)
--- NOTE | 2024-03-22 16:01 | P.PNPSI_ITS ---
Subjective Subjective Date of Service: 03/22/24 Reason For Visit: Schizoaffective disorder Subjective Notes: Conditional Voluntary Interim History: The nursing staff reported the patient had been sleeping in the evening slept 7 hours. Yesterday he fell. Today in the morning he was sleepy he took his medications. Mental Status Exam Mental Status Exam Patient Appearance: Unkempt Patient Orientation: Person Level of Consciousness: Sedated Patient Behavior: Guarded and Passive Mood Description: Calm Affect Description: Blunted Patient Cognition Impaired: Yes Ability to Follow Directions: Good Speech Pattern: Clear Hallucinations: Auditory Delusions: Paranoid Ideation and Ideas of Reference Thought Process: Distracted and Slowed Thinking Thought Content: positive for [place] and positive for Poverty of Content Judgement: Poor Diagnostics Vital Signs (24Hr): Vital Signs - 24 hr 03/22/24 08:00 Respiratory Rate 16 BMI result Body Mass Index 25.1 Labs 03/21/24 15:56 03/21/24 15:56 Labs: Laboratory Results - last 48 hr 03/21/24 03/21/24 15:56 15:58 WBC 4.0 L RBC 3.99 L Hgb 11.3 L Hct 35.8 L MCV 89.7 MCH 28.3 MCHC 31.6 RDW 14.9 Plt Count 151 L MPV 10.3 Immature Gran % (Auto) 1.0 H Neut % (Auto) 41.6 L Lymph % (Auto) 48.0 H [place] % (Auto) 7.2 Eos % (Auto) 1.7 Baso % (Auto) 0.5 Lymph # (Auto) 1.9 [place] # (Auto) 0.3 Eos # (Auto) 0.1 Baso # (Auto) 0.0 Abs Immat Gran (auto) 0.04 H Absolute Neuts (auto) 1.7 L Absolute Nucleated RBC 0.000 Nucleated RBC % (auto) 0.0 Sodium 135 Potassium 4.9 Chloride 106 Carbon Dioxide 24 Anion Gap 10 L BUN 8 L Creatinine 1.28 Estim Creat Clear Calc 57.1 Estimated GFR 56 Random Glucose 107 Calcium 8.5 Ammonia 40 Imaging Radiology Impressions: ITS Impressions Chest X-Ray 03/20/24 08:33 IMPRESSION: Extremely limited exam. Only lateral views could be obtained. Suspect basilar airspace opacity, possibly pneumonia. Electronically signed by: Fortino Dumont MD 03/20/2024 10:10 AM EST RP Cervical Spine CT 03/21/24 11:18 IMPRESSION: 1. Allowing for suboptimal positioning, there is no CT evidence of acute cervical spine fracture or injury. 2. Degenerative changes with bulky ventral osteophytes spanning C4-C6, appearance in keeping with DISH. Electronically signed by: Fortino Dumont MD 03/21/2024 12:01 PM EST RP Head CT 03/21/24 11:18 IMPRESSION: 1. No acute intracranial abnormality. No acute fractures seen. 2. Stable chronic findings as discussed. Electronically signed by: Fortino Dumont MD 03/21/2024 11:54 AM EST RP Pelvis CT 03/21/24 11:18 IMPRESSION: 1. No acute bony abnormalities. No fractures. 2. Constipation with a large amount of stool in the rectum and sigmoid colon. 3. Mild thickening of the urinary bladder wall despite underdistention, nonspecific. Differential includes the detrusor hypertrophy, neurogenic bladder, or possibly cystitis. Electronically signed by: Fortino Dumont MD 03/21/2024 12:09 PM EST RP Medications Medications Current Medications Acetaminophen (Acetaminophen 325 Mg Tablet) 650 mg PO Q6H PRN PRN Reason: Headache/Pain Mild Scale (1-3) Last Admin: 01/17/24 23:53 Dose: 325 mg Al Hydroxide/Mg Hydroxide (Magnesium Hydrox/Alum Hydrox 30 Ml Oral.Susp) 30 ml PO Q6H PRN PRN Reason: Heartburn/Nausea Amlodipine Besylate (Amlodipine Besylate 10 Mg Tablet) 10 mg PO DAILY [facility]; Protocol Last Admin: 03/22/24 08:59 Dose: Not Given Aspirin (Aspirin 81 Mg Tab.Chew) 81 mg PO DAILY [facility] Last Admin: 03/22/24 07:38 Dose: 81 mg Atorvastatin Calcium (Atorvastatin Calcium 40 Mg Tablet) 40 mg PO DAILY [facility] Last Admin: 03/22/24 07:38 Dose: 40 mg Carbamazepine (Carbamazepine 200 Mg Tablet) 200 mg PO BID [facility] Last Admin: 03/22/24 07:38 Dose: 200 mg Clonidine (Clonidine 0.2 Mg Patch.Tdwk) 0.2 mg TRANSDERMA Fr@0900 [facility]; Protocol Last Admin: 03/16/24 08:58 Dose: Not Given Ferrous Sulfate (Ferrous Sulfate 324 Mg Tablet.Dr) 324 mg PO BID [facility] Last Admin: 03/22/24 09:00 Dose: Not Given Haloperidol Lactate (Haloperidol Lactate 5 Mg/Ml Vial) 10 mg IM BID PRN PRN Reason: Refusal of Court PO Haldol Last Admin: 03/14/24 10:40 Dose: 10 mg Haloperidol Lactate (Haloperidol Lactate Oral Conc 10 Mg/5 Ml Oral.Conc) 5 mg PO Q6H PRN PRN Reason: Psychosis or severe agitation Last Admin: 03/22/24 13:53 Dose: 5 mg Haloperidol Lactate (Haloperidol Lactate Oral Conc 10 Mg/5 Ml Oral.Conc) 10 mg PO BID [facility] Last Admin: 03/22/24 08:50 Dose: 10 mg Lorazepam (Lorazepam 1 Mg Tablet) 2 mg PO Q6H PRN PRN Reason: agitation Last Admin: 03/22/24 13:54 Dose: 2 mg Magnesium Hydroxide (Milk Of Magnesia 30 Ml Oral.Susp) 30 ml PO DAILY PRN PRN Reason: Constipation Nicotine Polacrilex (Nicotine Polacrilex 2 Mg Gum) 2 mg BUCCAL Q2H PRN PRN Reason: Nicotine Cravings Trazodone HCl (Trazodone Hcl 50 Mg Tablet) 50 mg PO BEDTIME MRX1 PRN PRN Reason: Insomnia Last Admin: 03/21/24 21:04 Dose: 50 mg Valproic Acid (Valproic Acid Liquid 250 Mg/5 Ml Solution) 750 mg PO BID [facility] Last Admin: 03/22/24 08:50 Dose: 750 mg Vitamin D (Cholecalciferol (Vitamin D3) 25 Mcg Tablet) 50 mcg PO DAILY [facility] Last Admin: 03/22/24 09:00 Dose: Not Given Allergies Allergies Allergy/AdvReac Type Severity Reaction Status Date / Time lithium Allergy Unknown Verified 01/13/24 18:08 Assessment & Plan Assessment & Plan (1) Schizoaffective disorder, bipolar type: Status: Acute Code(s): F25.0 - Schizoaffective disorder, bipolar type (2) Hypertension: Status: Acute Code(s): I10 - Essential (primary) hypertension (3) Diabetes mellitus: Status: Acute Code(s): E11.9 - Type 2 diabetes mellitus without complications Plan 68 yo from a intermediate with chronic psychotic disorder, refusing medication , elevated bp and disorganized and agitated behavior requiring psychiatric hospitalization and treatment not competent to sign cv. 01/14 continue to follow - gave lambs warning today- and he says the securities trader will be a she- still refusing medications and quite psychotic takes alot of redirection to settle him poor adls- 01/15- Refuses meds, refuses hospitalist consult-second day File for Section Seven consideration on 01/17. Provide care as he will allow. 01/16: Depakote 250 mg bid Haldol, Lorazepam, Benadryl prn Section 7 to be filed 01/17 Message left for guardian. 01/17: Section [address] filed. . Court scheduled 01/26/24 Pt continues to refuse medicaitons. He is in need of full assist with ADL's and is incontinent. Pt transferred to [facility] this afternoon. 01/19/2024 Patient pending civil commitment loud agitated would not engage in any conversation with this technical document writer non informational healing agitated verbally aggressive. Every attempt being made to get a copy of the patient's Servin order unclear why this has been so problematic. Encourage food and fluids 01/19 continue same treatment 01/21/24 Patient labile agitated intrusive close labs ordered in order to per to protect the community patient wandering into patient's rooms intrusive impulsive laying on another person's bed. Often hostile agitated posturing at times we are still pending copy of reported Servin order encourage p.o. compliance 01/22/2024 Patient did require physical hold escort him out of a room that he jumped in other patient's room and on their bed while there were in it. There was no physical harm and the patient did leave the room his markedly impulsive with poor judgment remains on close observation has intermittently taken Haldol liquid pending civil commitment treatment plan there is a question of Servin order 01/22 The patient had been more agitated. We review his Servin order and we are increasing the Abilify up to 15 mg p.o. daily and adding Haldol p.r.n. since it is in his role years order. We needed to give him some p.r.n. at 14:00. 01/23 The patient is grossly psychotic disrobing and sexually disinhibited we are starting Haldol 2 mg p.o. t.i.d. to target psychosis as per court order treatment over objection order. 01/24 The patient remains very agitated and angry disruptive so we are increasing the Haldol from 2 mg to 5 mg p.o. t.i.d. with a backup IM if the patient refused as per court order. 01/25 we have increased the Haldol but still he is very psychotic and restless. Today he refused his blood work. He needed to be physically held twice. 01/26 the patient remains agitated at times but his last IM backup was yesterday. We are going to increase Abilify up to 20 mg daily to target mood lability and psychosis. 01/29/2024: Increase frequency of prn doses from tid to prn q 6mrs. Poor insight and unable to care for self 02/08 pt has not take any of mood stabilizer. continues to have poor sleep, intrusive and combative requiring IM medications, increase haldol 10mg po TID, back up IM. Will add ativan 1mg po TID, also back up IM. Labs show elevated CK 2300, BUN 20, Cr 1.80, unclear baseline Cr as he does have CKD. Discussed with hospitalist Dr. Gama, to give IV fluids and monitor labs tomorrow. LFTs also elevated suspect this is secondary to elevation in CK and should trend down as CK goes down. 02/09 still agitated, creatinine and CPK slightly high as yesterday, he removed his IV line there is no big difference with IV hydration. We are changing his community role years to have more options since it is not working Abilify and Haldol 02/10 3 chemical restraints yesterday. appears more combative, and somewhat more confused. Will decrease amount of benzo and antihistamine given to him as it seems to be backfiring. did discuss with ICU attending, Dr. Whiteside possibility of transferring there but they would like us to try IV depakote and exhaust all resources prior to considering transfer. Pt did take depakote springkle 1000mg with apple sauce with much encourage. 02/11 continue tx. 02/12 continue same treatment 01/14 continue with Abilify and other court order medications, we are Namenda and the court order. 02/14 Team report improvement today with pt having greater comfort and less agitation. 1126 the staff reported that the patient had been less violent in the last 24 hours 02/16 continue tx. will check depakote and ammonia on 02/17 in AM. 02/17 continue regime and plan of care 02/26/2024: Continue current regimen as per court order 03/03 continue tx. lactulose for now as we don't have new ammonia level, but will try to chack labs. 03/16- continue medications, held clonidine patch for today due to low BP. repeat labs. 03/17-continue plan of care 03/18- continue tx 03/19 continue same treatment 03/20 waiting for CBC, basic metabolic panel and ammonia level. Today he nearly choked with a grape. We are going to change his diet to chopped 03/21 patient had a fall and he was assessed. No injuries as per CT scan of head and pelvis. Again he refused again his blood work vital signs within normal limits. 03/22 keep same treatment Reason for continued inpatient stay Substantial Risk for: inability to function, rapid decompensation and med/psych decompensation Time Spent With Patient Time: Total time managing care of this patient today ___20_ minutes.
[2024-03-22] MEDS: Ferrous Sulfate 324 MG TABLET.DR PO (19:54)
[2024-03-22] MEDS: traZODone HCL 50 MG TABLET PO (19:54)
[2024-03-23] MEDS: LORazepam 1 MG TABLET 2 MG PO ×3 (05:41→21:22)
[2024-03-23] MEDS: Haloperidol Lactate 5 MG/ML VIAL 10 MG IM (09:45)
--- NOTE | 2024-03-23 13:38 | HO.PSYCHPN ---
Subjective Subjective Date of Service: 03/23/24 Reason For Visit: Schizoaffective disorder Subjective Notes: Section 7 and Section 8 Interim History: The nursing staff reported the patient had been compliant with medications he had not been behavioral isolated slept 7 hours. On interview the patient was sleeping and so far he has been less agitated. Mental Status Exam Mental Status Exam Patient Appearance: Appropriate Patient Orientation: Person and Situation Level of Consciousness: Awake Patient Behavior: Guarded and Passive Mood Description: Withdrawn Affect Description: Blunted Patient Cognition Impaired: Yes Ability to Follow Directions: Good Speech Pattern: Clear Hallucinations: None Delusions: Paranoid Ideation and Ideas of Reference Thought Process: Distracted and Slowed Thinking Thought Content: positive for [place] and positive for Poverty of Content Judgement: Poor Diagnostics Vital Signs (24Hr): BMI result Body Mass Index 25.1 Labs 03/21/24 15:56 03/21/24 15:56 Labs: Laboratory Results - last 48 hr 03/21/24 03/21/24 15:56 15:58 WBC 4.0 L RBC 3.99 L Hgb 11.3 L Hct 35.8 L MCV 89.7 MCH 28.3 MCHC 31.6 RDW 14.9 Plt Count 151 L MPV 10.3 Immature Gran % (Auto) 1.0 H Neut % (Auto) 41.6 L Lymph % (Auto) 48.0 H [place] % (Auto) 7.2 Eos % (Auto) 1.7 Baso % (Auto) 0.5 Lymph # (Auto) 1.9 [place] # (Auto) 0.3 Eos # (Auto) 0.1 Baso # (Auto) 0.0 Abs Immat Gran (auto) 0.04 H Absolute Neuts (auto) 1.7 L Absolute Nucleated RBC 0.000 Nucleated RBC % (auto) 0.0 Sodium 135 Potassium 4.9 Chloride 106 Carbon Dioxide 24 Anion Gap 10 L BUN 8 L Creatinine 1.28 Estim Creat Clear Calc 57.1 Estimated GFR 56 Random Glucose 107 Calcium 8.5 Ammonia 40 Imaging Radiology Impressions: ITS Impressions Chest X-Ray 03/20/24 08:33 IMPRESSION: Extremely limited exam. Only lateral views could be obtained. Suspect basilar airspace opacity, possibly pneumonia. Electronically signed by: Fortino Dumont MD 03/20/2024 10:10 AM [facility] Cervical Spine CT 03/21/24 11:18 IMPRESSION: 1. Allowing for suboptimal positioning, there is no CT evidence of acute cervical spine fracture or injury. 2. Degenerative changes with bulky ventral osteophytes spanning C4-C6, appearance in keeping with DISH. Electronically signed by: Fortino Dmuont MD 03/21/2024 12:01 PM EST RP Head CT 03/21/24 11:18 IMPRESSION: 1. No acute intracranial abnormality. No acute fractures seen. 2. Stable chronic findings as discussed. Electronically signed by: Fortino Dumont MD 03/21/2024 11:54 AM EST RP Pelvis CT 03/21/24 11:18 IMPRESSION: 1. No acute bony abnormalities. No fractures. 2. Constipation with a large amount of stool in the rectum and sigmoid colon. 3. Mild thickening of the urinary bladder wall despite underdistention, nonspecific. Differential includes the detrusor hypertrophy, neurogenic bladder, or possibly cystitis. Electronically signed by: Fortino Dumont MD 03/21/2024 12:09 PM EST RP Medications Medications Current Medications Acetaminophen (Acetaminophen 325 Mg Tablet) 650 mg PO Q6H PRN PRN Reason: Headache/Pain Mild Scale (1-3) Last Admin: 01/17/24 23:53 Dose: 325 mg Al Hydroxide/Mg Hydroxide (Magnesium Hydrox/Alum Hydrox 30 Ml Oral.Susp) 30 ml PO Q6H PRN PRN Reason: Heartburn/Nausea Amlodipine Besylate (Amlodipine Besylate 10 Mg Tablet) 10 mg PO DAILY REPLACED BY [facility]; Protocol Last Admin: 03/23/24 10:13 Dose: Not Given Aspirin (Aspirin 81 Mg Tab.Chew) 81 mg PO DAILY REPLACED BY [facility] Last Admin: 03/23/24 10:12 Dose: Not Given Atorvastatin Calcium (Atorvastatin Calcium 40 Mg Tablet) 40 mg PO DAILY REPLACED BY [facility] Last Admin: 03/23/24 10:12 Dose: Not Given Carbamazepine (Carbamazepine 200 Mg Tablet) 200 mg PO BID REPLACED BY [facility] Last Admin: 03/23/24 10:12 Dose: Not Given Clonidine (Clonidine 0.2 Mg Patch.Tdwk) 0.2 mg TRANSDERMA Fr@0900 REPLACED BY [facility]; Protocol Last Admin: 03/23/24 10:12 Dose: Not Given Ferrous Sulfate (Ferrous Sulfate 324 Mg Tablet.) 324 mg PO BID REPLACED BY [facility] Last Admin: 03/23/24 10:12 Dose: Not Given Haloperidol Lactate (Haloperidol Lactate 5 Mg/Ml Vial) 10 mg IM BID PRN PRN Reason: Refusal of Court PO Haldol Last Admin: 03/23/24 09:45 Dose: 10 mg Haloperidol Lactate (Haloperidol Lactate Oral Conc 10 Mg/5 Ml Oral.Conc) 5 mg PO Q6H PRN PRN Reason: Psychosis or severe agitation Last Admin: 03/22/24 13:53 Dose: 5 mg Haloperidol Lactate (Haloperidol Lactate Oral Conc 10 Mg/5 Ml Oral.Conc) 10 mg PO BID REPLACED BY [facility] Last Admin: 03/23/24 10:12 Dose: Not Given Lorazepam (Lorazepam 1 Mg Tablet) 2 mg PO Q6H PRN PRN Reason: agitation Last Admin: 03/23/24 05:41 Dose: 2 mg Magnesium Hydroxide (Milk Of Magnesia 30 Ml Oral.Susp) 30 ml PO DAILY PRN PRN Reason: Constipation Nicotine Polacrilex (Nicotine Polacrilex 2 Mg Gum) 2 mg BUCCAL Q2H PRN PRN Reason: Nicotine Cravings Trazodone HCl (Trazodone Hcl 50 Mg Tablet) 50 mg PO BEDTIME MRX1 PRN PRN Reason: Insomnia Last Admin: 03/22/24 19:54 Dose: 50 mg Valproic Acid (Valproic Acid Liquid 250 Mg/5 Ml Solution) 750 mg PO BID REPLACED BY [facility] Last Admin: 03/23/24 10:12 Dose: Not Given Vitamin D (Cholecalciferol (Vitamin D3) 25 Mcg Tablet) 50 mcg PO DAILY REPLACED BY [facility] Last Admin: 03/23/24 10:12 Dose: Not Given Allergies Allergies Allergy/AdvReac Type Severity Reaction Status Date / Time lithium Allergy Unknown Verified 01/13/24 18:08 Assessment & Plan Assessment & Plan (1) Schizoaffective disorder, bipolar type: Status: Acute Code(s): F25.0 - Schizoaffective disorder, bipolar type (2) Hypertension: Status: Acute Code(s): I10 - Essential (primary) hypertension (3) Diabetes mellitus: Status: Acute Code(s): E11.9 - Type 2 diabetes mellitus without complications Plan 03/23 keep same treatment 68 yo from a half-way with chronic psychotic disorder, refusing medication , elevated bp and disorganized and agitated behavior requiring psychiatric hospitalization and treatment not competent to sign cv. 01/14 continue to follow - gave lambs warning today- and he says the appellate court judge will be a she- still refusing medications and quite psychotic takes alot of redirection to settle him poor adls- 01/15- Refuses meds, refuses hospitalist consult-second day File for Section Seven consideration on 01/17. Provide care as he will allow. 01/16: Depakote 250 mg bid Haldol, Lorazepam, Benadryl prn Section 7 to be filed 01/17 Message left for guardian. 01/17: Section Seven filed. . Court scheduled 01/26/24 Pt continues to refuse medicaitons. He is in need of full assist with ADL's and is incontinent. Pt transferred to [facility] this afternoon. 01/19/2024 Patient pending civil commitment loud agitated would not engage in any conversation with this radio script writer non informational healing agitated verbally aggressive. Every attempt being made to get a copy of the patient's Servin order unclear why this has been so problematic. Encourage food and fluids 01/19 continue same treatment 01/21/24 Patient labile agitated intrusive close labs ordered in order to per to protect the community patient wandering into patient's rooms intrusive impulsive laying on another person's bed. Often hostile agitated posturing at times we are still pending copy of reported Servin order encourage p.o. compliance 01/22/2024 Patient did require physical hold escort him out of a room that he jumped in other patient's room and on their bed while there were in it. There was no physical harm and the patient did leave the room his markedly impulsive with poor judgment remains on close observation has intermittently taken Haldol liquid pending civil commitment treatment plan there is a question of Servin order 01/22 The patient had been more agitated. We review his Servin order and we are increasing the Abilify up to 15 mg p.o. daily and adding Haldol p.r.n. since it is in his role years order. We needed to give him some p.r.n. at 14:00. 01/23 The patient is grossly psychotic disrobing and sexually disinhibited we are starting Haldol 2 mg p.o. t.i.d. to target psychosis as per court order treatment over objection order. 01/24 The patient remains very agitated and angry disruptive so we are increasing the Haldol from 2 mg to 5 mg p.o. t.i.d. with a backup IM if the patient refused as per court order. 01/25 we have increased the Haldol but still he is very psychotic and restless. Today he refused his blood work. He needed to be physically held twice. 01/26 the patient remains agitated at times but his last IM backup was yesterday. We are going to increase Abilify up to 20 mg daily to target mood lability and psychosis. 01/29/2024: Increase frequency of prn doses from tid to prn q 6mrs. Poor insight and unable to care for self 02/08 pt has not take any of mood stabilizer. continues to have poor sleep, intrusive and combative requiring IM medications, increase haldol 10mg po TID, back up IM. Will add ativan 1mg po TID, also back up IM. Labs show elevated CK 2300, BUN 20, Cr 1.80, unclear baseline Cr as he does have CKD. Discussed with hospitalist Dr. Gama, to give IV fluids and monitor labs tomorrow. LFTs also elevated suspect this is secondary to elevation in CK and should trend down as CK goes down. 02/09 still agitated, creatinine and CPK slightly high as yesterday, he removed his IV line there is no big difference with IV hydration. We are changing his community role years to have more options since it is not working Abilify and Haldol 02/10 3 chemical restraints yesterday. appears more combative, and somewhat more confused. Will decrease amount of benzo and antihistamine given to him as it seems to be backfiring. did discuss with ICU attending, Dr. Whiteside possibility of transferring there but they would like us to try IV depakote and exhaust all resources prior to considering transfer. Pt did take depakote springkle 1000mg with apple sauce with much encourage. 02/11 continue tx. 02/12 continue same treatment 01/14 continue with Abilify and other court order medications, we are Namenda and the court order. 02/14 Team report improvement today with pt having greater comfort and less agitation. [id number] the staff reported that the patient had been less violent in the last 24 hours 02/16 continue tx. will check depakote and ammonia on 02/17 in AM. 02/17 continue regime and plan of care 02/26/2024: Continue current regimen as per court order 03/03 continue tx. lactulose for now as we don't have new ammonia level, but will try to chack labs. 03/16- continue medications, held clonidine patch for today due to low BP. repeat labs. 03/17-continue plan of care 03/18- continue tx 03/19 continue same treatment 03/20 waiting for CBC, basic metabolic panel and ammonia level. Today he nearly choked with a grape. We are going to change his diet to chopped 03/21 patient had a fall and he was assessed. No injuries as per CT scan of head and pelvis. Again he refused again his blood work vital signs within normal limits. 03/22 keep same treatment 03/23 keep same treatment Reason for continued inpatient stay Substantial Risk for: inability to function, rapid decompensation and med/psych decompensation Time Spent With Patient Time: Total time managing care of this patient today __20__ minutes.
[2024-03-23] MEDS: Haloperidol Lactate Oral Conc 10 MG/5 ML ORAL.CONC 5 MG PO (14:09)
[2024-03-23] MEDS: Haloperidol Lactate Oral Conc 10 MG/5 ML ORAL.CONC PO (21:22)
[2024-03-23] MEDS: Valproic Acid Liquid 250 MG/5 ML SOLUTION 750 MG PO (21:22)
[2024-03-23] MEDS: traZODone HCL 50 MG TABLET PO (21:23)
[2024-03-23] MEDS: Ferrous Sulfate 324 MG TABLET.DR PO (21:23)
[2024-03-23] MEDS: carBAMazepine 200 MG TABLET PO (21:23)
[2024-03-24] MEDS: Haloperidol Lactate Oral Conc 10 MG/5 ML ORAL.CONC 5 MG PO ×2 (03:25→14:53)
[2024-03-24] MEDS: LORazepam 1 MG TABLET 2 MG PO ×2 (03:26→21:07)
[2024-03-24 08:00] VITALS: BP 171/103; PULSE 94; RESP 18; TEMP 36.6; O2SAT 98
[2024-03-24] MEDS: Valproic Acid Liquid 250 MG/5 ML SOLUTION 750 MG PO ×2 (09:25→21:06)
[2024-03-24] MEDS: Haloperidol Lactate Oral Conc 10 MG/5 ML ORAL.CONC PO ×2 (09:26→21:06)
[2024-03-24] MEDS: Aspirin 81 MG TAB.CHEW PO (09:26)
[2024-03-24] MEDS: carBAMazepine 200 MG TABLET PO (09:26)
--- NOTE | 2024-03-24 17:29 | P.PNPSI_ITS ---
Subjective Subjective Date of Service: 03/24/24 Reason For Visit: Schizoaffective disorder Subjective Notes: Section 7 and Section 8 Interim History: Patient has been more compliant with medications significantly less combative and aggressive and impulsive. Intermittently lethargic during the day. Mental Status Exam Mental Status Exam Narrative: Patient was seen sitting in chair on one-to-one. He would not engage in conversation seemed comfortable was smiling and awake would not answer questions or engage in any conversation. He was not self-harming or aggressive when seen unable to taken in information no linear conversation was mostly nonverbal Diagnostics Vital Signs (24Hr): Vital Signs - 24 hr 03/24/24 08:00 Temperature 97.8 F Pulse Rate 94 Respiratory Rate 18 Blood Pressure 171/103 H Pulse Oximetry 98 Oxygen Delivery Method Room Air BMI result Body Mass Index 25.1 Labs 03/21/24 15:56 03/21/24 15:56 Imaging Radiology Impressions: ITS Impressions Chest X-Ray 03/20/24 08:33 IMPRESSION: Extremely limited exam. Only lateral views could be obtained. Suspect basilar airspace opacity, possibly pneumonia. Electronically signed by: Fortino Dumont MD 03/20/2024 10:10 AM EST RP Cervical Spine CT 03/21/24 11:18 IMPRESSION: 1. Allowing for suboptimal positioning, there is no CT evidence of acute cervical spine fracture or injury. 2. Degenerative changes with bulky ventral osteophytes spanning C4-C6, appearance in keeping with DISH. Electronically signed by: Fortino Dumont MD 03/21/2024 12:01 PM EST RP Head CT 03/21/24 11:18 IMPRESSION: 1. No acute intracranial abnormality. No acute fractures seen. 2. Stable chronic findings as discussed. Electronically signed by: Fortino Dumont MD 03/21/2024 11:54 AM EST RP Pelvis CT 03/21/24 11:18 IMPRESSION: 1. No acute bony abnormalities. No fractures. 2. Constipation with a large amount of stool in the rectum and sigmoid colon. 3. Mild thickening of the urinary bladder wall despite underdistention, nonspecific. Differential includes the detrusor hypertrophy, neurogenic bladder, or possibly cystitis. Electronically signed by: Fortino Dumont MD 03/21/2024 12:09 PM EST RP Medications Medications Current Medications Acetaminophen (Acetaminophen 325 Mg Tablet) 650 mg PO Q6H PRN PRN Reason: Headache/Pain Mild Scale (1-3) Last Admin: 01/17/24 23:53 Dose: 325 mg Al Hydroxide/Mg Hydroxide (Magnesium Hydrox/Alum Hydrox 30 Ml Oral.Susp) 30 ml PO Q6H PRN PRN Reason: Heartburn/Nausea Amlodipine Besylate (Amlodipine Besylate 10 Mg Tablet) 10 mg PO DAILY [facility]; Protocol Last Admin: 03/24/24 10:14 Dose: Not Given Aspirin (Aspirin 81 Mg Tab.Chew) 81 mg PO DAILY [facility] Last Admin: 03/24/24 09:26 Dose: 81 mg Atorvastatin Calcium (Atorvastatin Calcium 40 Mg Tablet) 40 mg PO DAILY [facility] Last Admin: 03/24/24 10:15 Dose: Not Given Carbamazepine (Carbamazepine 200 Mg Tablet) 200 mg PO BID [facility] Last Admin: 03/24/24 09:26 Dose: 200 mg Clonidine (Clonidine 0.2 Mg Patch.Tdwk) 0.2 mg TRANSDERMA Fr@0900 [facility]; Protocol Last Admin: 03/23/24 10:12 Dose: Not Given Ferrous Sulfate (Ferrous Sulfate 324 Mg Tablet.Dr) 324 mg PO BID [facility] Last Admin: 03/24/24 10:15 Dose: Not Given Haloperidol Lactate (Haloperidol Lactate 5 Mg/Ml Vial) 10 mg IM BID PRN PRN Reason: Refusal of Court PO Haldol Last Admin: 03/23/24 09:45 Dose: 10 mg Haloperidol Lactate (Haloperidol Lactate Oral Conc 10 Mg/5 Ml Oral.Conc) 5 mg PO Q6H PRN PRN Reason: Psychosis or severe agitation Last Admin: 03/24/24 14:53 Dose: 5 mg Haloperidol Lactate (Haloperidol Lactate Oral Conc 10 Mg/5 Ml Oral.Conc) 10 mg PO BID [facility] Last Admin: 03/24/24 09:26 Dose: 10 mg Magnesium Hydroxide (Milk Of Magnesia 30 Ml Oral.Susp) 30 ml PO DAILY PRN PRN Reason: Constipation Nicotine Polacrilex (Nicotine Polacrilex 2 Mg Gum) 2 mg BUCCAL Q2H PRN PRN Reason: Nicotine Cravings Trazodone HCl (Trazodone Hcl 50 Mg Tablet) 50 mg PO BEDTIME MRX1 PRN PRN Reason: Insomnia Last Admin: 03/23/24 21:23 Dose: 50 mg Valproic Acid (Valproic Acid Liquid 250 Mg/5 Ml Solution) 750 mg PO BID [facility] Last Admin: 03/24/24 09:25 Dose: 750 mg Vitamin D (Cholecalciferol (Vitamin D3) 25 Mcg Tablet) 50 mcg PO DAILY [facility] Last Admin: 03/24/24 10:15 Dose: Not Given Allergies Allergies Allergy/AdvReac Type Severity Reaction Status Date / Time lithium Allergy Unknown Verified 01/13/24 18:08 Assessment & Plan Assessment & Plan (1) Schizoaffective disorder, bipolar type: Status: Acute Code(s): F25.0 - Schizoaffective disorder, bipolar type (2) Hypertension: Status: Acute Code(s): I10 - Essential (primary) hypertension (3) Diabetes mellitus: Status: Acute Code(s): E11.9 - Type 2 diabetes mellitus without complications Plan 03/23 keep same treatment 68 yo from a snf with chronic psychotic disorder, refusing medication , elevated bp and disorganized and agitated behavior requiring psychiatric hospitalization and treatment not competent to sign cv. 01/14 continue to follow - gave lambs warning today- and he says the recreation manager will be a she- still refusing medications and quite psychotic takes alot of redirection to settle him poor adls- 01/15- Refuses meds, refuses hospitalist consult-second day File for Section Seven consideration on 01/17. Provide care as he will allow. 01/16: Depakote 250 mg bid Haldol, Lorazepam, Benadryl prn Section 7 to be filed 01/17 Message left for guardian. 01/17: Section Seven filed. . Court scheduled 01/26/24 Pt continues to refuse medicaitons. He is in need of full assist with ADL's and is incontinent. Pt transferred to [facility] this afternoon. 01/19/2024 Patient pending civil commitment loud agitated would not engage in any conversation with this information writer non informational healing agitated verbally aggressive. Every attempt being made to get a copy of the patient's Servin order unclear why this has been so problematic. Encourage food and fluids 01/19 continue same treatment 01/21/24 Patient labile agitated intrusive close labs ordered in order to per to protect the community patient wandering into patient's rooms intrusive impulsive laying on another person's bed. Often hostile agitated posturing at times we are still pending copy of reported Servin order encourage p.o. compliance 01/22/2024 Patient did require physical hold escort him out of a room that he jumped in other patient's room and on their bed while there were in it. There was no physical harm and the patient did leave the room his markedly impulsive with poor judgment remains on close observation has intermittently taken Haldol liquid pending civil commitment treatment plan there is a question of Servin order 01/22 The patient had been more agitated. We review his Servin order and we are increasing the Abilify up to 15 mg p.o. daily and adding Haldol p.r.n. since it is in his role years order. We needed to give him some p.r.n. at 14:00. 01/23 The patient is grossly psychotic disrobing and sexually disinhibited we are starting Haldol 2 mg p.o. t.i.d. to target psychosis as per court order treatment over objection order. 01/24 The patient remains very agitated and angry disruptive so we are increasing the Haldol from 2 mg to 5 mg p.o. t.i.d. with a backup IM if the patient refused as per court order. 01/25 we have increased the Haldol but still he is very psychotic and restless. Today he refused his blood work. He needed to be physically held twice. 01/26 the patient remains agitated at times but his last IM backup was yesterday. We are going to increase Abilify up to 20 mg daily to target mood lability and psychosis. 01/29/2024: Increase frequency of prn doses from tid to prn q 6mrs. Poor insight and unable to care for self 02/08 pt has not take any of mood stabilizer. continues to have poor sleep, intrusive and combative requiring IM medications, increase haldol 10mg po TID, back up IM. Will add ativan 1mg po TID, also back up IM. Labs show elevated CK 2300, BUN 20, Cr 1.80, unclear baseline Cr as he does have CKD. Discussed with hospitalist Dr. Gama, to give IV fluids and monitor labs tomorrow. LFTs also elevated suspect this is secondary to elevation in CK and should trend down as CK goes down. 02/09 still agitated, creatinine and CPK slightly high as yesterday, he removed his IV line there is no big difference with IV hydration. We are changing his community role years to have more options since it is not working Abilify and Haldol 02/10 3 chemical restraints yesterday. appears more combative, and somewhat more confused. Will decrease amount of benzo and antihistamine given to him as it seems to be backfiring. did discuss with ICU attending, Dr. Whiteside possibility of transferring there but they would like us to try IV depakote and exhaust all resources prior to considering transfer. Pt did take depakote springkle 1000mg with apple sauce with much encourage. 02/11 continue tx. 02/12 continue same treatment 01/14 continue with Abilify and other court order medications, we are Namenda and the court order. 02/14 Team report improvement today with pt having greater comfort and less agitation. 1126 the staff reported that the patient had been less violent in the last 24 hours 02/16 continue tx. will check depakote and ammonia on 02/17 in AM. 02/17 continue regime and plan of care 02/26/2024: Continue current regimen as per court order 03/03 continue tx. lactulose for now as we don't have new ammonia level, but will try to chack labs. 03/16- continue medications, held clonidine patch for today due to low BP. repeat labs. 03/17-continue plan of care 03/18- continue tx 03/19 continue same treatment 03/20 waiting for CBC, basic metabolic panel and ammonia level. Today he nearly choked with a grape. We are going to change his diet to chopped 03/21 patient had a fall and he was assessed. No injuries as per CT scan of head and pelvis. Again he refused again his blood work vital signs within normal limits. 03/22 keep same treatment 03/23 keep same treatment 03 24 24 Continue plan of care Depakote Tegretol Haldol snehal Informed Consent: does not understand Reason for continued inpatient stay Substantial Risk for: harm to others, inability to function, rapid decompensation and med/psych decompensation Time Spent With Patient Time: Total time managing care of this patient today ____ minutes.
[2024-03-24 20:00] VITALS: RESP 16
[2024-03-25] MEDS: Haloperidol Lactate Oral Conc 10 MG/5 ML ORAL.CONC 5 MG PO ×2 (02:16→15:38)
[2024-03-25] MEDS: traZODone HCL 50 MG TABLET PO ×2 (02:16→21:17)
[2024-03-25] MEDS: LORazepam 1 MG TABLET 2 MG PO ×2 (02:17→15:37)
[2024-03-25] MEDS: Valproic Acid Liquid 250 MG/5 ML SOLUTION 750 MG PO ×2 (07:37→21:17)
[2024-03-25] MEDS: Haloperidol Lactate Oral Conc 10 MG/5 ML ORAL.CONC PO ×2 (07:37→21:17)
[2024-03-25] MEDS: carBAMazepine 200 MG TABLET PO ×2 (07:52→21:17)
[2024-03-25] MEDS: Aspirin 81 MG TAB.CHEW PO (07:53)
[2024-03-25 08:00] VITALS: RESP 18
--- NOTE | 2024-03-25 15:18 | PC.NURSE ---
Bret sister and niece visited 03/25/24 at 1430, found him on a WC in the sensory room waiting, they were not pleased with his declining status, they wanted to know his baseline, if medications had changed, and if he had stopped ambulating independently. Florist[employer] Decorator and clinical sales consultant answered the questions that fell within our scope of practice and referred them to his Provider and social problems specialist.
[2024-03-25 20:00] VITALS: RESP 16
--- NOTE | 2024-03-25 22:31 | HO.PSYCHPN ---
Subjective Subjective Date of Service: 03/25/24 Reason For Visit: Schizoaffective disorder Subjective Notes: Section 8 Interim History: Patient has been more lethargic much less mobile some difficulty with swallowing at times. Rigidity has been noted has been accepting medication not overly combative Mental Status Exam Mental Status Exam Narrative: Patient was calm somewhat lethargic when seen today. Some difficulty with EPS intermittent spasm rigidity was not overly combative or agitated Was mostly nonverbal when seen today lethargic Diagnostics Vital Signs (24Hr): Vital Signs - 24 hr 03/25/24 08:00 03/25/24 20:00 Respiratory Rate 18 16 BMI result Body Mass Index 25.1 Labs 03/21/24 15:56 03/21/24 15:56 Imaging Radiology Impressions: ITS Impressions Chest X-Ray 03/20/24 08:33 IMPRESSION: Extremely limited exam. Only lateral views could be obtained. Suspect basilar airspace opacity, possibly pneumonia. Electronically signed by: Fortino Dumont MD 03/20/2024 10:10 AM EST RP Cervical Spine CT 03/21/24 11:18 IMPRESSION: 1. Allowing for suboptimal positioning, there is no CT evidence of acute cervical spine fracture or injury. 2. Degenerative changes with bulky ventral osteophytes spanning C4-C6, appearance in keeping with DISH. Electronically signed by: Fortino Dumont MD 03/21/2024 12:01 PM EST RP Head CT 03/21/24 11:18 IMPRESSION: 1. No acute intracranial abnormality. No acute fractures seen. 2. Stable chronic findings as discussed. Electronically signed by: Fortino Dumont MD 03/21/2024 11:54 AM EST RP Pelvis CT 03/21/24 11:18 IMPRESSION: 1. No acute bony abnormalities. No fractures. 2. Constipation with a large amount of stool in the rectum and sigmoid colon. 3. Mild thickening of the urinary bladder wall despite underdistention, nonspecific. Differential includes the detrusor hypertrophy, neurogenic bladder, or possibly cystitis. Electronically signed by: Fortino Dumont MD 03/21/2024 12:09 PM EST RP Medications Medications Current Medications Acetaminophen (Acetaminophen 325 Mg Tablet) 650 mg PO Q6H PRN PRN Reason: Headache/Pain Mild Scale (1-3) Last Admin: 01/17/24 23:53 Dose: 325 mg Al Hydroxide/Mg Hydroxide (Magnesium Hydrox/Alum Hydrox 30 Ml Oral.Susp) 30 ml PO Q6H PRN PRN Reason: Heartburn/Nausea Amlodipine Besylate (Amlodipine Besylate 10 Mg Tablet) 10 mg PO DAILY [facility]; Protocol Last Admin: 03/25/24 07:54 Dose: Not Given Aspirin (Aspirin 81 Mg Tab.Chew) 81 mg PO DAILY [facility] Last Admin: 03/25/24 07:53 Dose: 81 mg Atorvastatin Calcium (Atorvastatin Calcium 40 Mg Tablet) 40 mg PO DAILY [facility] Last Admin: 03/25/24 09:20 Dose: Not Given Carbamazepine (Carbamazepine 200 Mg Tablet) 200 mg PO BID [facility] Last Admin: 03/25/24 21:17 Dose: 200 mg Clonidine (Clonidine 0.2 Mg Patch.Tdwk) 0.2 mg TRANSDERMA Fr@0900 [facility]; Protocol Last Admin: 03/23/24 10:12 Dose: Not Given Ferrous Sulfate (Ferrous Sulfate 324 Mg Tablet.) 324 mg PO BID [facility] Last Admin: 03/25/24 21:17 Dose: Not Given Haloperidol Lactate (Haloperidol Lactate 5 Mg/Ml Vial) 10 mg IM BID PRN PRN Reason: Refusal of Court PO Haldol Last Admin: 03/23/24 09:45 Dose: 10 mg Haloperidol Lactate (Haloperidol Lactate Oral Conc 10 Mg/5 Ml Oral.Conc) 5 mg PO Q6H PRN PRN Reason: Psychosis or severe agitation Last Admin: 03/25/24 15:38 Dose: 5 mg Haloperidol Lactate (Haloperidol Lactate Oral Conc 10 Mg/5 Ml Oral.Conc) 10 mg PO BID [facility] Last Admin: 03/25/24 21:17 Dose: 10 mg Lorazepam (Lorazepam 1 Mg Tablet) 2 mg PO Q6H PRN PRN Reason: agitation Last Admin: 03/25/24 15:37 Dose: 2 mg Magnesium Hydroxide (Milk Of Magnesia 30 Ml Oral.Susp) 30 ml PO DAILY PRN PRN Reason: Constipation Nicotine Polacrilex (Nicotine Polacrilex 2 Mg Gum) 2 mg BUCCAL Q2H PRN PRN Reason: Nicotine Cravings Trazodone HCl (Trazodone Hcl 50 Mg Tablet) 50 mg PO BEDTIME MRX1 PRN PRN Reason: Insomnia Last Admin: 03/25/24 21:17 Dose: 50 mg Valproic Acid (Valproic Acid Liquid 250 Mg/5 Ml Solution) 750 mg PO BID [facility] Last Admin: 03/25/24 21:17 Dose: 750 mg Vitamin D (Cholecalciferol (Vitamin D3) 25 Mcg Tablet) 50 mcg PO DAILY [facility] Last Admin: 03/25/24 09:20 Dose: Not Given Allergies Allergies Allergy/AdvReac Type Severity Reaction Status Date / Time lithium Allergy Unknown Verified 01/13/24 18:08 Assessment & Plan Assessment & Plan (1) Schizoaffective disorder, bipolar type: Status: Acute Code(s): F25.0 - Schizoaffective disorder, bipolar type (2) Hypertension: Status: Acute Code(s): I10 - Essential (primary) hypertension (3) Diabetes mellitus: Status: Acute Code(s): E11.9 - Type 2 diabetes mellitus without complications Plan 03/23 keep same treatment 68 yo from a long-term with chronic psychotic disorder, refusing medication , elevated bp and disorganized and agitated behavior requiring psychiatric hospitalization and treatment not competent to sign cv. 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 Provide care as he will allow. 01/16: Depakote 250 mg bid Haldol, Lorazepam, Benadryl prn Section 7 to be filed 01/17 Message left for guardian. 01/17: Section Seven filed. . Court scheduled 01/26/24 Pt continues to refuse medicaitons. He is in need of full assist with ADL's and is incontinent. Pt transferred to [facility] this afternoon. 01/19/2024 Patient pending civil commitment loud agitated would not engage in any conversation with this field underwriter non informational healing agitated verbally aggressive. Every attempt being made to get a copy of the patient's Servin order unclear why this has been so problematic. Encourage food and fluids 01/19 continue same treatment 01/21/24 Patient labile agitated intrusive close labs ordered in order to per to protect the community patient wandering into patient's rooms intrusive impulsive laying on another person's bed. Often hostile agitated posturing at times we are still pending copy of reported Servin order encourage p.o. compliance 01/22/2024 Patient did require physical hold escort him out of a room that he jumped in other patient's room and on their bed while there were in it. There was no physical harm and the patient did leave the room his markedly impulsive with poor judgment remains on close observation has intermittently taken Haldol liquid pending civil commitment treatment plan there is a question of Servin order 01/22 The patient had been more agitated. We review his Servin order and we are increasing the Abilify up to 15 mg p.o. daily and adding Haldol p.r.n. since it is in his role years order. We needed to give him some p.r.n. at 14:00. 01/23 The patient is grossly psychotic disrobing and sexually disinhibited we are starting Haldol 2 mg p.o. t.i.d. to target psychosis as per court order treatment over objection order. 01/24 The patient remains very agitated and angry disruptive so we are increasing the Haldol from 2 mg to 5 mg p.o. t.i.d. with a backup IM if the patient refused as per court order. 01/25 we have increased the Haldol but still he is very psychotic and restless. Today he refused his blood work. He needed to be physically held twice. 01/26 the patient remains agitated at times but his last IM backup was yesterday. We are going to increase Abilify up to 20 mg daily to target mood lability and psychosis. 01/29/2024: Increase frequency of prn doses from tid to prn q 6mrs. Poor insight and unable to care for self 02/08 pt has not take any of mood stabilizer. continues to have poor sleep, intrusive and combative requiring IM medications, increase haldol 10mg po TID, back up IM. Will add ativan 1mg po TID, also back up IM. Labs show elevated CK 2300, BUN 20, Cr 1.80, unclear baseline Cr as he does have CKD. Discussed with hospitalist Dr. Gama, to give IV fluids and monitor labs tomorrow. LFTs also elevated suspect this is secondary to elevation in CK and should trend down as CK goes down. 02/09 still agitated, creatinine and CPK slightly high as yesterday, he removed his IV line there is no big difference with IV hydration. We are changing his community role years to have more options since it is not working Abilify and Haldol 02/10 3 chemical restraints yesterday. appears more combative, and somewhat more confused. Will decrease amount of benzo and antihistamine given to him as it seems to be backfiring. did discuss with ICU attending, Dr. Whiteside possibility of transferring there but they would like us to try IV depakote and exhaust all resources prior to considering transfer. Pt did take depakote springkle 1000mg with apple sauce with much encourage. 02/11 continue tx. 02/12 continue same treatment 01/14 continue with Abilify and other court order medications, we are Namenda and the court order. 02/14 Team report improvement today with pt having greater comfort and less agitation. [id number] the staff reported that the patient had been less violent in the last 24 hours 02/16 continue tx. will check depakote and ammonia on 02/17 in AM. 02/17 continue regime and plan of care 02/26/2024: Continue current regimen as per court order 03/03 continue tx. lactulose for now as we don't have new ammonia level, but will try to chack labs. 03/16- continue medications, held clonidine patch for today due to low BP. repeat labs. 03/17-continue plan of care 03/18- continue tx 03/19 continue same treatment 03/20 waiting for CBC, basic metabolic panel and ammonia level. Today he nearly choked with a grape. We are going to change his diet to chopped 03/21 patient had a fall and he was assessed. No injuries as per CT scan of head and pelvis. Again he refused again his blood work vital signs within normal limits. 03/22 keep same treatment 03/23 keep same treatment 03 24 24 Continue plan of care Depakote Tegretol Haldol carbamazepine 03/25/2024 Repeat swallowing study ordered he is already on ground diet consider lowering Haldol versus Cogentin generally try to avoid older man Reason for continued inpatient stay Substantial Risk for: harm to others, inability to function, rapid decompensation and med/psych decompensation Time Spent With Patient Time: Total time managing care of this patient today ____ minutes.
[2024-03-26] MEDS: Haloperidol Lactate Oral Conc 10 MG/5 ML ORAL.CONC 5 MG PO (01:40)
[2024-03-26] MEDS: LORazepam 1 MG TABLET 2 MG PO ×2 (01:40→19:41)
[2024-03-26] MEDS: traZODone HCL 50 MG TABLET PO (01:41)
[2024-03-26] MEDS: Haloperidol Lactate 5 MG/ML VIAL 10 MG IM (08:37)
--- NOTE | 2024-03-26 11:03 | MHC.SL.SWA ---
Speech Pathologist Impression: Mild oral phase dysphagia in presence of confusion/refusals characterized by mild residuals post swallow on sides of mouth, pt able to clear with sips of liquid, tongue sweep minimal d/t press of speech/repetitive echolalic pattern Risk of Aspiration Due to: Reduced Cognition Dysphasia Diet Status: Liquid Consistency and Strategies for Safe Swallow: Liquid Intake Recommendation: Thin Liquid Intake Strategies: Small Sips Solid Food Consistency: Dietary Recommendations: Grnd/Mech Altered (NDD2) Additional Modifications to Solid Foods: Medications as already implemented Oral Medication Intake: Crushed with Puree Please contact the pharmacy regarding appropriate crushable or liquid drug formulations that are available whenever modified delivery is recommended. Compensatory Strategies and Precautions to be Taken for Safe Swallow: Sitting Upright (90 deg) Liquids from Straw Small Bites and Sips Alternate Liquids/Solids Rate of Ingestion Change Supervision While Eating and Drinking for Safe Swallow: Total Supervision (1:1) Foods to Avoid: Swallowing Recommended Treatments: Compens. Strategy Educat. Recommendation for Speech: Comment: NAIL PROFESSIONAL will follow Frequency/Duration: Date Range for Service Req: Timeline to reassess: Equity Director Clinican/Clinical Fellow: No Supervisory Statement: I have reviewed and agree with the student/clinical fellow's documentation: N/A Speech Language Pathologist: Irene Allen M.S., CCC-NAIL PROFESSIONAL
--- NOTE | 2024-03-26 13:14 | PC.NURSE ---
Addendum entered by Janis Rob RN 03/26/24 14:07: This credit underwriter informed Dr. Watson about the downgraded x2, and requested a diet order change. [place] connect placed on 'read'-action pending. Original Note: Pt downgraded by speech, to pureed diet and remains on thin liquids.
--- NOTE | 2024-03-26 14:08 | PC.NURSE ---
This instructional writer informed Dr. Watson that this patient just had loose stool, and inquired about any dx that he would like. Text 'read' on Last Guide, answer pending.
--- NOTE | 2024-03-26 14:44 | HO.PSYCHPN ---
Subjective Subjective Date of Service: 03/26/24 Reason For Visit: Schizoaffective disorder Subjective Notes: Section 7 and Section 8 Interim History: The nursing staff reported the patient had been partially compliant with his medications. His sister came and visit him and they want to talk with us, received a phone call and explained her that we could not change his medications since the court order does not allowed. We are team for the court order. On interview the patient looks blunted. Mental Status Exam Mental Status Exam Patient Appearance: Unkempt Patient Orientation: Person Level of Consciousness: Restless Patient Behavior: Guarded and Passive Mood Description: Withdrawn Affect Description: Constricted Patient Cognition Impaired: Yes Ability to Follow Directions: Good Speech Pattern: Clear Hallucinations: Auditory Delusions: Paranoid Ideation and Ideas of Reference Thought Process: Distracted and Slowed Thinking Thought Content: positive for [place] and positive for Poverty of Content Judgement: Poor Diagnostics Vital Signs (24Hr): Vital Signs - 24 hr 03/25/24 20:00 Respiratory Rate 16 BMI result Body Mass Index 25.1 Labs 03/21/24 15:56 03/21/24 15:56 Imaging Radiology Impressions: ITS Impressions Chest X-Ray 03/20/24 08:33 IMPRESSION: Extremely limited exam. Only lateral views could be obtained. Suspect basilar airspace opacity, possibly pneumonia. Electronically signed by: Fortino Dumont MD 03/20/2024 10:10 AM EST RP Cervical Spine CT 03/21/24 11:18 IMPRESSION: 1. Allowing for suboptimal positioning, there is no CT evidence of acute cervical spine fracture or injury. 2. Degenerative changes with bulky ventral osteophytes spanning C4-C6, appearance in keeping with DISH. Electronically signed by: Fortino Dumont MD 03/21/2024 12:01 PM EST RP Head CT 03/21/24 11:18 IMPRESSION: 1. No acute intracranial abnormality. No acute fractures seen. 2. Stable chronic findings as discussed. Electronically signed by: Fortino Dumont MD 03/21/2024 11:54 AM EST RP Pelvis CT 03/21/24 11:18 IMPRESSION: 1. No acute bony abnormalities. No fractures. 2. Constipation with a large amount of stool in the rectum and sigmoid colon. 3. Mild thickening of the urinary bladder wall despite underdistention, nonspecific. Differential includes the detrusor hypertrophy, neurogenic bladder, or possibly cystitis. Electronically signed by: Fortino Dumont MD 03/21/2024 12:09 PM [facility] Medications Medications Current Medications Acetaminophen (Acetaminophen 325 Mg Tablet) 650 mg PO Q6H PRN PRN Reason: Headache/Pain Mild Scale (1-3) Last Admin: 01/17/24 23:53 Dose: 325 mg Al Hydroxide/Mg Hydroxide (Magnesium Hydrox/Alum Hydrox 30 Ml Oral.Susp) 30 ml PO Q6H PRN PRN Reason: Heartburn/Nausea Amlodipine Besylate (Amlodipine Besylate 10 Mg Tablet) 10 mg PO DAILY [facility]; Protocol Last Admin: 03/26/24 08:47 Dose: Not Given Aspirin (Aspirin 81 Mg Tab.Chew) 81 mg PO DAILY [facility] Last Admin: 03/26/24 08:47 Dose: Not Given Atorvastatin Calcium (Atorvastatin Calcium 40 Mg Tablet) 40 mg PO DAILY [facility] Last Admin: 03/26/24 08:47 Dose: Not Given Carbamazepine (Carbamazepine 200 Mg Tablet) 200 mg PO BID [facility] Last Admin: 03/26/24 08:47 Dose: Not Given Clonidine (Clonidine 0.2 Mg Patch.Tdwk) 0.2 mg TRANSDERMA Fr@0900 [facility]; Protocol Last Admin: 03/23/24 10:12 Dose: Not Given Ferrous Sulfate (Ferrous Sulfate 324 Mg Tablet.Dr) 324 mg PO BID [facility] Last Admin: 03/26/24 08:48 Dose: Not Given Haloperidol Lactate (Haloperidol Lactate 5 Mg/Ml Vial) 10 mg IM BID PRN PRN Reason: Refusal of Court PO Haldol Last Admin: 03/26/24 08:37 Dose: 10 mg Haloperidol Lactate (Haloperidol Lactate Oral Conc 10 Mg/5 Ml Oral.Conc) 5 mg PO Q6H PRN PRN Reason: Psychosis or severe agitation Last Admin: 03/26/24 01:40 Dose: 5 mg Haloperidol Lactate (Haloperidol Lactate Oral Conc 10 Mg/5 Ml Oral.Conc) 10 mg PO BID [facility] Last Admin: 03/26/24 08:48 Dose: Not Given Lorazepam (Lorazepam 1 Mg Tablet) 2 mg PO Q6H PRN PRN Reason: agitation Last Admin: 03/26/24 01:40 Dose: 2 mg Magnesium Hydroxide (Milk Of Magnesia 30 Ml Oral.Susp) 30 ml PO DAILY PRN PRN Reason: Constipation Nicotine Polacrilex (Nicotine Polacrilex 2 Mg Gum) 2 mg BUCCAL Q2H PRN PRN Reason: Nicotine Cravings Trazodone HCl (Trazodone Hcl 50 Mg Tablet) 50 mg PO BEDTIME MRX1 PRN PRN Reason: Insomnia Last Admin: 03/26/24 01:41 Dose: 50 mg Valproic Acid (Valproic Acid Liquid 250 Mg/5 Ml Solution) 750 mg PO BID [facility] Last Admin: 03/26/24 08:48 Dose: Not Given Vitamin D (Cholecalciferol (Vitamin D3) 25 Mcg Tablet) 50 mcg PO DAILY [facility] Last Admin: 03/26/24 08:48 Dose: Not Given Allergies Allergies Allergy/AdvReac Type Severity Reaction Status Date / Time lithium Allergy Unknown Verified 01/13/24 18:08 Assessment & Plan Assessment & Plan (1) Schizoaffective disorder, bipolar type: Status: Acute Code(s): F25.0 - Schizoaffective disorder, bipolar type (2) Hypertension: Status: Acute Code(s): I10 - Essential (primary) hypertension (3) Diabetes mellitus: Status: Acute Code(s): E11.9 - Type 2 diabetes mellitus without complications Plan 03/23 keep same treatment 68 yo from a nursing home with chronic psychotic disorder, refusing medication , elevated bp and disorganized and agitated behavior requiring psychiatric hospitalization and treatment not competent to sign cv. 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 Provide care as he will allow. 01/16: Depakote 250 mg bid Haldol, Lorazepam, Benadryl prn Section 7 to be filed 01/17 Message left for guardian. 01/17: Section Seven filed. . Court scheduled 01/26/24 Pt continues to refuse medicaitons. He is in need of full assist with ADL's and is incontinent. Pt transferred to [facility] this afternoon. 01/19/2024 Patient pending civil commitment loud agitated would not engage in any conversation with this investment underwriter non informational healing agitated verbally aggressive. Every attempt being made to get a copy of the patient's Servin order unclear why this has been so problematic. Encourage food and fluids 01/19 continue same treatment 01/21/24 Patient labile agitated intrusive close labs ordered in order to per to protect the community patient wandering into patient's rooms intrusive impulsive laying on another person's bed. Often hostile agitated posturing at times we are still pending copy of reported Servin order encourage p.o. compliance 01/22/2024 Patient did require physical hold escort him out of a room that he jumped in other patient's room and on their bed while there were in it. There was no physical harm and the patient did leave the room his markedly impulsive with poor judgment remains on close observation has intermittently taken Haldol liquid pending civil commitment treatment plan there is a question of Servin order 01/22 The patient had been more agitated. We review his Servin order and we are increasing the Abilify up to 15 mg p.o. daily and adding Haldol p.r.n. since it is in his role years order. We needed to give him some p.r.n. at 14:00. 01/23 The patient is grossly psychotic disrobing and sexually disinhibited we are starting Haldol 2 mg p.o. t.i.d. to target psychosis as per court order treatment over objection order. 01/24 The patient remains very agitated and angry disruptive so we are increasing the Haldol from 2 mg to 5 mg p.o. t.i.d. with a backup IM if the patient refused as per court order. 01/25 we have increased the Haldol but still he is very psychotic and restless. Today he refused his blood work. He needed to be physically held twice. 01/26 the patient remains agitated at times but his last IM backup was yesterday. We are going to increase Abilify up to 20 mg daily to target mood lability and psychosis. 01/29/2024: Increase frequency of prn doses from tid to prn q 6mrs. Poor insight and unable to care for self 02/08 pt has not take any of mood stabilizer. continues to have poor sleep, intrusive and combative requiring IM medications, increase haldol 10mg po TID, back up IM. Will add ativan 1mg po TID, also back up IM. Labs show elevated CK 2300, BUN 20, Cr 1.80, unclear baseline Cr as he does have CKD. Discussed with hospitalist Dr. Gama, to give IV fluids and monitor labs tomorrow. LFTs also elevated suspect this is secondary to elevation in CK and should trend down as CK goes down. 02/09 still agitated, creatinine and CPK slightly high as yesterday, he removed his IV line there is no big difference with IV hydration. We are changing his community role years to have more options since it is not working Abilify and Haldol 02/10 3 chemical restraints yesterday. appears more combative, and somewhat more confused. Will decrease amount of benzo and antihistamine given to him as it seems to be backfiring. did discuss with ICU attending, Dr. Whiteside possibility of transferring there but they would like us to try IV depakote and exhaust all resources prior to considering transfer. Pt did take depakote springkle 1000mg with apple sauce with much encourage. 02/11 continue tx. 02/12 continue same treatment 01/14 continue with Abilify and other court order medications, we are Namenda and the court order. 02/14 Team report improvement today with pt having greater comfort and less agitation. 1126 the staff reported that the patient had been less violent in the last 24 hours 02/16 continue tx. will check depakote and ammonia on 02/17 in AM. 02/17 continue regime and plan of care 02/26/2024: Continue current regimen as per court order 03/03 continue tx. lactulose for now as we don't have new ammonia level, but will try to chack labs. 03/16- continue medications, held clonidine patch for today due to low BP. repeat labs. 03/17-continue plan of care 03/18- continue tx 03/19 continue same treatment 03/20 waiting for CBC, basic metabolic panel and ammonia level. Today he nearly choked with a grape. We are going to change his diet to chopped 03/21 patient had a fall and he was assessed. No injuries as per CT scan of head and pelvis. Again he refused again his blood work vital signs within normal limits. 03/22 keep same treatment 03/23 keep same treatment 2 03 17 Continue plan of care Depakote Tegretol Haldol carbamazepine 03/25/2024 Repeat swallowing study ordered he is already on ground diet consider lowering Haldol versus Cogentin generally try to avoid older man 03/26 lowered Haldol to 7.5 p.o. b.i.d. Reason for continued inpatient stay Substantial Risk for: inability to function, rapid decompensation and med/psych decompensation Time Spent With Patient Time: Total time managing care of this patient today __20__ minutes.
--- NOTE | 2024-03-26 14:58 | PM.EVENT ---
Event Note Date of Service: 03/26/24 Event Note: Patient with decreased p.o. intake, loose stools. We will order 1 L normal saline, check CBC, BNP, lipid profile, magnesium, stool panel and C diff PCR Time Spent With Patient Time: Total time managing care of this patient today ____ minutes.
[2024-03-26 15:48] LABS: Hematocrit 34.1 % (42.0-52.0); Hemoglobin 11.3 g/dl (14.0-18.0); Mean Corpuscular HGB Conc 33.1 g/dl (31.0-36.0); Mean Corpuscular Volume 87.7 fL (80.0-98.0); Platelet Count 120 X10*3/uL (160-400); Red Blood Count 3.89 X10*6/uL (4.60-5.80); Red Cell Distribution Width 15.5 % (11.0-16.0); White Blood Count 3.4 X10*3/uL (4.8-10.8)
--- NOTE | 2024-03-26 16:32 | PC.NURSE ---
Addendum entered by Janis Rob RN 03/26/24 17:24: Currently VSS. Dr Watson stated via [employer] connect to try again tomorrow , to give IV fluids. Original Note: Two different RN's have attempted to insert an IV on this patient, and both were unsuccessful. Currently awaiting a 3rd RN for attempt.
[2024-03-26 16:49] LABS: Alanine Aminotransferase 14 U/L (0-40); Albumin Level 3.7 g/dL (3.5-5.0); Alkaline Phosphatase 127 U/L (39-117); Anion Gap 12 (12-20); Aspartate Amino Transferase 24 U/L (5-37); Bilirubin Direct < 0.2 mg/dL (0.0-0.5); Bilirubin Total 0.2 mg/dL (0.0-1.0); Blood Urea Nitrogen 13 mg/dL (9-16); Calcium 8.8 mg/dL (8.4-10.2); Carbon Dioxide 26 mmol/L (22-29); Chloride 107 mmol/L (96-108); Estimated Glomerular Filt Rate 58; Glucose Random 124 mg/dL (60-115); Magnesium 1.7 mg/dL (1.6-2.6); Potassium 4.5 mmol/L (3.3-5.1); Sodium 140 mmol/L (135-145); Total Protein 6.9 g/dL (6.5-8.0)
[2024-03-26] MEDS: carBAMazepine 200 MG TABLET PO (19:41)
[2024-03-26] MEDS: Haloperidol Lactate Oral Conc 10 MG/5 ML ORAL.CONC 7.5 MG PO (19:41)
[2024-03-26] MEDS: Valproic Acid Liquid 250 MG/5 ML SOLUTION 750 MG PO (19:41)
[2024-03-26] MEDS: Ferrous Sulfate 324 MG TABLET.DR PO (19:42)
[2024-03-26 22:22] VITALS: BP 158/79; PULSE 73; RESP 17; TEMP 36.3; O2SAT 95
[2024-03-27] MEDS: Valproic Acid Liquid 250 MG/5 ML SOLUTION 750 MG PO ×2 (08:06→21:08)
[2024-03-27] MEDS: Haloperidol Lactate Oral Conc 10 MG/5 ML ORAL.CONC 7.5 MG PO ×2 (08:06→21:08)
[2024-03-27] MEDS: Aspirin 81 MG TAB.CHEW PO (08:07)
[2024-03-27] MEDS: carBAMazepine 200 MG TABLET PO ×2 (08:07→21:08)
[2024-03-27] MEDS: amLODIPine Besylate 10 MG TABLET PO (08:07)
[2024-03-27] MEDS: Atorvastatin Calcium 40 MG TABLET PO (08:07)
[2024-03-27] MEDS: Cholecalciferol (Vitamin D3) 25 MCG TABLET 50 MCG PO (08:08)
[2024-03-27] MEDS: Haloperidol Lactate Oral Conc 10 MG/5 ML ORAL.CONC 5 MG PO (14:17)
[2024-03-27] MEDS: LORazepam 1 MG TABLET 2 MG PO (14:18)
--- NOTE | 2024-03-27 15:28 | HO.PSYCHPN ---
Subjective Subjective Date of Service: 03/27/24 Reason For Visit: Schizoaffective disorder Subjective Notes: Conditional Voluntary Interim History: The nursing staff reported the patient had been on his room most of the time we are unable to get IV fluids, he had diarrhea yesterday. He got IM Haldol yesterday in the morning as per court order. We are going to start [facility] Mental Status Exam Mental Status Exam Patient Appearance: Appropriate Patient Orientation: Person and Situation Level of Consciousness: Awake and Appropriate Patient Behavior: Guarded and Passive Mood Description: Withdrawn Affect Description: Constricted Patient Cognition Impaired: Yes Ability to Follow Directions: Good Speech Pattern: Clear Hallucinations: Auditory Delusions: Paranoid Ideation and Ideas of Reference Thought Process: Distracted and Slowed Thinking Thought Content: positive for [place] and positive for Poverty of Content Judgement: Fair Diagnostics Vital Signs (24Hr): Vital Signs - 24 hr 03/26/24 22:22 Temperature 97.3 F Pulse Rate 73 Respiratory Rate 17 Blood Pressure 158/79 H Pulse Oximetry 95 Oxygen Delivery Method Room Air BMI result Body Mass Index 25.1 Labs 03/26/24 15:39 03/26/24 15:39 Labs: Laboratory Results - last 48 hr 03/26/24 15:39 WBC 3.4 L RBC 3.89 L Hgb 11.3 L Hct 34.1 L MCV 87.7 MCH 29.0 MCHC 33.1 RDW 15.5 Plt Count 120 L MPV 9.0 L Absolute Nucleated RBC 0.000 Nucleated RBC % (auto) 0.0 Sodium 140 Potassium 4.5 Chloride 107 Carbon Dioxide 26 Anion Gap 12 BUN 13 Creatinine 1.24 Estim Creat Clear Calc 59.0 Estimated GFR 58 Random Glucose 124 H Calcium 8.8 Magnesium 1.7 Total Bilirubin 0.2 Direct Bilirubin < 0.2 AST 24 ALT 14 Alkaline Phosphatase 127 H Total Creatine Kinase 193 H Total Protein 6.9 Albumin 3.7 Imaging Radiology Impressions: ITS Impressions Chest X-Ray 03/20/24 08:33 IMPRESSION: Extremely limited exam. Only lateral views could be obtained. Suspect basilar airspace opacity, possibly pneumonia. Electronically signed by: Fortino Dumont MD 03/20/2024 10:10 AM [facility] Cervical Spine CT 03/21/24 11:18 IMPRESSION: 1. Allowing for suboptimal positioning, there is no CT evidence of acute cervical spine fracture or injury. 2. Degenerative changes with bulky ventral osteophytes spanning C4-C6, appearance in keeping with DISH. Electronically signed by: Fortino Dumont MD 03/21/2024 12:01 PM EST RP Head CT 03/21/24 11:18 IMPRESSION: 1. No acute intracranial abnormality. No acute fractures seen. 2. Stable chronic findings as discussed. Electronically signed by: Fortino Dumont MD 03/21/2024 11:54 AM EST RP Pelvis CT 03/21/24 11:18 IMPRESSION: 1. No acute bony abnormalities. No fractures. 2. Constipation with a large amount of stool in the rectum and sigmoid colon. 3. Mild thickening of the urinary bladder wall despite underdistention, nonspecific. Differential includes the detrusor hypertrophy, neurogenic bladder, or possibly cystitis. Electronically signed by: Fortino Dumont MD 03/21/2024 12:09 PM EST RP Medications Medications Current Medications Acetaminophen (Acetaminophen 325 Mg Tablet) 650 mg PO Q6H PRN PRN Reason: Headache/Pain Mild Scale (1-3) Last Admin: 01/17/24 23:53 Dose: 325 mg Al Hydroxide/Mg Hydroxide (Magnesium Hydrox/Alum Hydrox 30 Ml Oral.Susp) 30 ml PO Q6H PRN PRN Reason: Heartburn/Nausea Amlodipine Besylate (Amlodipine Besylate 10 Mg Tablet) 10 mg PO DAILY [facility]; Protocol Last Admin: 03/27/24 08:07 Dose: 10 mg Aspirin (Aspirin 81 Mg Tab.Chew) 81 mg PO DAILY [facility] Last Admin: 03/27/24 08:07 Dose: 81 mg Atorvastatin Calcium (Atorvastatin Calcium 40 Mg Tablet) 40 mg PO DAILY [facility] Last Admin: 03/27/24 08:07 Dose: 40 mg Carbamazepine (Carbamazepine 200 Mg Tablet) 200 mg PO BID [facility] Last Admin: 03/27/24 08:07 Dose: 200 mg Clonidine (Clonidine 0.2 Mg Patch.Tdwk) 0.2 mg TRANSDERMA Fr@0900 [facility]; Protocol Last Admin: 03/23/24 10:12 Dose: Not Given Ferrous Sulfate (Ferrous Sulfate 324 Mg Tablet.) 324 mg PO BID [facility] Last Admin: 03/27/24 08:30 Dose: Not Given Haloperidol Lactate (Haloperidol Lactate Oral Conc 10 Mg/5 Ml Oral.Conc) 5 mg PO Q6H PRN PRN Reason: Psychosis or severe agitation Last Admin: 03/27/24 14:17 Dose: 5 mg Haloperidol Lactate (Haloperidol Lactate Oral Conc 10 Mg/5 Ml Oral.Conc) 7.5 mg PO BID [facility] Last Admin: 03/27/24 08:06 Dose: 7.5 mg Haloperidol Lactate (Haloperidol Lactate 5 Mg/Ml Vial) 7.5 mg IM BID PRN PRN Reason: Refusal of Court PO Haldol Lorazepam (Lorazepam 1 Mg Tablet) 2 mg PO Q6H PRN PRN Reason: agitation Last Admin: 03/27/24 14:18 Dose: 2 mg Magnesium Hydroxide (Milk Of Magnesia 30 Ml Oral.Susp) 30 ml PO DAILY PRN PRN Reason: Constipation Nicotine Polacrilex (Nicotine Polacrilex 2 Mg Gum) 2 mg BUCCAL Q2H PRN PRN Reason: Nicotine Cravings Trazodone HCl (Trazodone Hcl 50 Mg Tablet) 50 mg PO BEDTIME MRX1 PRN PRN Reason: Insomnia Last Admin: 03/26/24 01:41 Dose: 50 mg Valproic Acid (Valproic Acid Liquid 250 Mg/5 Ml Solution) 750 mg PO BID [facility] Last Admin: 03/27/24 08:06 Dose: 750 mg Vitamin D (Cholecalciferol (Vitamin D3) 25 Mcg Tablet) 50 mcg PO DAILY [facility] Last Admin: 03/27/24 08:08 Dose: 50 mcg Allergies Allergies Allergy/AdvReac Type Severity Reaction Status Date / Time lithium Allergy Unknown Verified 01/13/24 18:08 Assessment & Plan Assessment & Plan (1) Schizoaffective disorder, bipolar type: Status: Acute Code(s): F25.0 - Schizoaffective disorder, bipolar type (2) Hypertension: Status: Acute Code(s): I10 - Essential (primary) hypertension (3) Diabetes mellitus: Status: Acute Code(s): E11.9 - Type 2 diabetes mellitus without complications Plan 03/23 keep same treatment 68 yo from a long term with chronic psychotic disorder, refusing medication , elevated bp and disorganized and agitated behavior requiring psychiatric hospitalization and treatment not competent to sign cv. 01/14 continue to follow - gave lambs warning today- and he says the patrol judge will be a she- still refusing medications and quite psychotic takes alot of redirection to settle him poor adls- 01/15- Refuses meds, refuses hospitalist consult-second day File for Section Seven consideration on 01/17. Provide care as he will allow. 01/16: Depakote 250 mg bid Haldol, Lorazepam, Benadryl prn Section 7 to be filed 01/17 Message left for guardian. 01/17: Section Seven filed. . Court scheduled 01/26/24 Pt continues to refuse medicaitons. He is in need of full assist with ADL's and is incontinent. Pt transferred to [facility] this afternoon. 01/19/2024 Patient pending civil commitment loud agitated would not engage in any conversation with this policy writer typist non informational healing agitated verbally aggressive. Every attempt being made to get a copy of the patient's Servin order unclear why this has been so problematic. Encourage food and fluids 01/19 continue same treatment 01/21/24 Patient labile agitated intrusive close labs ordered in order to per to protect the community patient wandering into patient's rooms intrusive impulsive laying on another person's bed. Often hostile agitated posturing at times we are still pending copy of reported Servin order encourage p.o. compliance 01/22/2024 Patient did require physical hold escort him out of a room that he jumped in other patient's room and on their bed while there were in it. There was no physical harm and the patient did leave the room his markedly impulsive with poor judgment remains on close observation has intermittently taken Haldol liquid pending civil commitment treatment plan there is a question of Servin order 01/22 The patient had been more agitated. We review his Servin order and we are increasing the Abilify up to 15 mg p.o. daily and adding Haldol p.r.n. since it is in his role years order. We needed to give him some p.r.n. at 14:00. 01/23 The patient is grossly psychotic disrobing and sexually disinhibited we are starting Haldol 2 mg p.o. t.i.d. to target psychosis as per court order treatment over objection order. 01/24 The patient remains very agitated and angry disruptive so we are increasing the Haldol from 2 mg to 5 mg p.o. t.i.d. with a backup IM if the patient refused as per court order. 01/25 we have increased the Haldol but still he is very psychotic and restless. Today he refused his blood work. He needed to be physically held twice. 01/26 the patient remains agitated at times but his last IM backup was yesterday. We are going to increase Abilify up to 20 mg daily to target mood lability and psychosis. 01/29/2024: Increase frequency of prn doses from tid to prn q 6mrs. Poor insight and unable to care for self 02/08 pt has not take any of mood stabilizer. continues to have poor sleep, intrusive and combative requiring IM medications, increase haldol 10mg po TID, back up IM. Will add ativan 1mg po TID, also back up IM. Labs show elevated CK 2300, BUN 20, Cr 1.80, unclear baseline Cr as he does have CKD. Discussed with hospitalist Dr. Gama, to give IV fluids and monitor labs tomorrow. LFTs also elevated suspect this is secondary to elevation in CK and should trend down as CK goes down. 02/09 still agitated, creatinine and CPK slightly high as yesterday, he removed his IV line there is no big difference with IV hydration. We are changing his community role years to have more options since it is not working Abilify and Haldol 02/10 3 chemical restraints yesterday. appears more combative, and somewhat more confused. Will decrease amount of benzo and antihistamine given to him as it seems to be backfiring. did discuss with ICU attending, Dr. Whiteside possibility of transferring there but they would like us to try IV depakote and exhaust all resources prior to considering transfer. Pt did take depakote springkle 1000mg with apple sauce with much encourage. 02/11 continue tx. 02/12 continue same treatment 01/14 continue with Abilify and other court order medications, we are Namenda and the court order. 02/14 Team report improvement today with pt having greater comfort and less agitation. 1126 the staff reported that the patient had been less violent in the last 24 hours 02/16 continue tx. will check depakote and ammonia on 02/17 in AM. 02/17 continue regime and plan of care 02/26/2024: Continue current regimen as per court order 03/03 continue tx. lactulose for now as we don't have new ammonia level, but will try to chack labs. 03/16- continue medications, held clonidine patch for today due to low BP. repeat labs. 03/17-continue plan of care 03/18- continue tx 03/19 continue same treatment 03/20 waiting for CBC, basic metabolic panel and ammonia level. Today he nearly choked with a grape. We are going to change his diet to chopped 03/21 patient had a fall and he was assessed. No injuries as per CT scan of head and pelvis. Again he refused again his blood work vital signs within normal limits. 03/22 keep same treatment 03/23 keep same treatment 03 24 24 Continue plan of care Depakote Tegretol Haldol carbamazepine 03/25/2024 Repeat swallowing study ordered he is already on ground diet consider lowering Haldol versus Cogentin generally try to avoid older man 03/26 lowered Haldol to 7.5 p.o. b.i.d. 03/27 start Abilify Maintena 400 IM Reason for continued inpatient stay Substantial Risk for: inability to function, rapid decompensation and med/psych decompensation Time Spent With Patient Time: Total time managing care of this patient today __20__ minutes.
[2024-03-27] MEDS: Ferrous Sulfate 324 MG TABLET.DR PO (21:08)
[2024-03-27] MEDS: traZODone HCL 50 MG TABLET PO (21:08)
[2024-03-28] MEDS: Haloperidol Lactate Oral Conc 10 MG/5 ML ORAL.CONC 5 MG PO ×2 (04:53→11:53)
[2024-03-28] MEDS: LORazepam 1 MG TABLET 2 MG PO ×3 (04:53→22:32)
[2024-03-28 08:07] VITALS: BP 163/102; PULSE 88; RESP 20; TEMP 36.9
[2024-03-28] MEDS: carBAMazepine 200 MG TABLET PO ×2 (08:09→22:32)
[2024-03-28] MEDS: Ferrous Sulfate 324 MG TABLET.DR PO ×2 (08:10→22:34)
[2024-03-28] MEDS: Atorvastatin Calcium 40 MG TABLET PO (08:10)
[2024-03-28] MEDS: Aspirin 81 MG TAB.CHEW PO (08:11)
[2024-03-28] MEDS: amLODIPine Besylate 10 MG TABLET PO (08:11)
[2024-03-28] MEDS: Cholecalciferol (Vitamin D3) 25 MCG TABLET 50 MCG PO (08:12)
[2024-03-28] MEDS: Haloperidol Lactate Oral Conc 10 MG/5 ML ORAL.CONC 7.5 MG PO ×2 (08:13→22:33)
[2024-03-28] MEDS: Valproic Acid Liquid 250 MG/5 ML SOLUTION 750 MG PO ×2 (08:14→22:31)
--- NOTE | 2024-03-28 10:17 | MHC.SLORD ---
Speech Language Pathology Order Status: Pt unable to be seen today as he was going for assessment, DUPLICATION SPECIALIST continues to follow for dysphagia. No reported difficulties with current diet but pt mentation fluctuates and he refuses PO at times.
--- NOTE | 2024-03-28 10:43 | PC.NURSE ---
Addendum entered and electronically signed by Katerina James RN 03/28/24 10:50: Jessica Zhao, guardian, notified of fall, behaviors leading to fall and treatment provided at 1050. Original Note: Pt attempted to enter sensory room by ambulating while another pt was sitting in it. Two staff members attempted to divert entrance multiple times. Pt leaned against staff member and staff was able to hold their postition. Pt altered his stance, leaning towards opposite side of nicholas, falling backwards slowly with shoulders hitting door of nurses station and then slid to floor on to buttocks. Superficial scratch noted right elbow approx 5mm in length. Elbow cleansed, CT head completed. VS 98.2-86-20 136/103. Dr Watson, Caitie Wallace, medical unit secretary, aware.
--- NOTE | 2024-03-28 14:25 | P.PNPSI_ITS ---
Subjective Subjective Date of Service: 03/28/24 Reason For Visit: Schizoaffective disorder Subjective Notes: Section 7 and Section 8 Interim History: THE NURSING STAFF REPORTED THE PATIENT FELL IN THE MORNING AND NEEDED TO HAVE A CT SCAN. HE SLEPT AND HE HAD BEEN COMPLIANT WITH MEDICATIONS. On interview the patient looks internally preoccupied, confused probably on delirium. Vital signs are stable and he was seen eating and drinking normally. He had been posturing and it seems that he is becoming catatonic but later on he responded to verbal stimuli. Mental Status Exam Mental Status Exam Patient Appearance: Inappropriate and Unkempt Patient Orientation: Person Level of Consciousness: Disoriented Patient Behavior: Guarded, Posturing and Suspicious Mood Description: Withdrawn Affect Description: Constricted Patient Cognition Impaired: Yes Ability to Follow Directions: Fair Speech Pattern: Slurred Hallucinations: Auditory Delusions: Paranoid Ideation and Ideas of Reference Thought Process: Distracted and Slowed Thinking Thought Content: positive for Starks and positive for Poverty of Content Judgement: Poor Diagnostics Vital Signs (24Hr): Vital Signs - 24 hr 03/28/24 08:07 Temperature 98.4 F Pulse Rate 88 Respiratory Rate 20 Blood Pressure 163/102 H BMI result Body Mass Index 25.1 Labs 03/26/24 15:39 03/26/24 15:39 Labs: Laboratory Results - last 48 hr 03/26/24 15:39 WBC 3.4 L RBC 3.89 L Hgb 11.3 L Hct 34.1 L MCV 87.7 MCH 29.0 MCHC 33.1 RDW 15.5 Plt Count 120 L MPV 9.0 L Absolute Nucleated RBC 0.000 Nucleated RBC % (auto) 0.0 Sodium 140 Potassium 4.5 Chloride 107 Carbon Dioxide 26 Anion Gap 12 BUN 13 Creatinine 1.24 Estim Creat Clear Calc 59.0 Estimated GFR 58 Random Glucose 124 H Calcium 8.8 Magnesium 1.7 Total Bilirubin 0.2 Direct Bilirubin < 0.2 AST 24 ALT 14 Alkaline Phosphatase 127 H Total Creatine Kinase 193 H Total Protein 6.9 Albumin 3.7 Imaging Radiology Impressions: ITS Impressions Chest X-Ray 03/20/24 08:33 IMPRESSION: Extremely limited exam. Only lateral views could be obtained. Suspect basilar airspace opacity, possibly pneumonia. Electronically signed by: Fortino Dumont MD 03/20/2024 10:10 AM [facility] Cervical Spine CT 03/21/24 11:18 IMPRESSION: 1. Allowing for suboptimal positioning, there is no CT evidence of acute cervical spine fracture or injury. 2. Degenerative changes with bulky ventral osteophytes spanning C4-C6, appearance in keeping with DISH. Electronically signed by: Fortino Dumont MD 03/21/2024 12:01 PM EST RP Head CT 03/21/24 11:18 IMPRESSION: 1. No acute intracranial abnormality. No acute fractures seen. 2. Stable chronic findings as discussed. Electronically signed by: Fortino Dumont MD 03/21/2024 11:54 AM EST RP Pelvis CT 03/21/24 11:18 IMPRESSION: 1. No acute bony abnormalities. No fractures. 2. Constipation with a large amount of stool in the rectum and sigmoid colon. 3. Mild thickening of the urinary bladder wall despite underdistention, nonspecific. Differential includes the detrusor hypertrophy, neurogenic bladder, or possibly cystitis. Electronically signed by: Fortino Dumont MD 03/21/2024 12:09 PM EST RP Head CT 03/28/24 09:37 IMPRESSION: No acute fracture, bony calvarium. No acute intracranial hemorrhage. Small vessel occlusive disease. Bifrontal bitemporal lobe atrophy. Electronically signed by: Juan Corrigan MD 03/28/2024 10:19 AM EST RP Medications Medications Current Medications Acetaminophen (Acetaminophen 325 Mg Tablet) 650 mg PO Q6H PRN PRN Reason: Headache/Pain Mild Scale (1-3) Last Admin: 01/17/24 23:53 Dose: 325 mg Al Hydroxide/Mg Hydroxide (Magnesium Hydrox/Alum Hydrox 30 Ml Oral.Susp) 30 ml PO Q6H PRN PRN Reason: Heartburn/Nausea Amlodipine Besylate (Amlodipine Besylate 10 Mg Tablet) 10 mg PO DAILY [facility]; Protocol Last Admin: 03/28/24 08:11 Dose: 10 mg Aspirin (Aspirin 81 Mg Tab.Chew) 81 mg PO DAILY [facility] Last Admin: 03/28/24 08:11 Dose: 81 mg Atorvastatin Calcium (Atorvastatin Calcium 40 Mg Tablet) 40 mg PO DAILY [facility] Last Admin: 03/28/24 08:10 Dose: 40 mg Carbamazepine (Carbamazepine 200 Mg Tablet) 200 mg PO BID [facility] Last Admin: 03/28/24 08:09 Dose: 200 mg Clonidine (Clonidine 0.2 Mg Patch.Tdwk) 0.2 mg TRANSDERMA Fr@0900 [facility]; Protocol Last Admin: 03/23/24 10:12 Dose: Not Given Ferrous Sulfate (Ferrous Sulfate 324 Mg Tablet.) 324 mg PO BID [facility] Last Admin: 03/28/24 08:10 Dose: 324 mg Haloperidol Lactate (Haloperidol Lactate Oral Conc 10 Mg/5 Ml Oral.Conc) 5 mg PO Q6H PRN PRN Reason: Psychosis or severe agitation Last Admin: 03/28/24 11:53 Dose: 5 mg Haloperidol Lactate (Haloperidol Lactate Oral Conc 10 Mg/5 Ml Oral.Conc) 7.5 mg PO BID [facility] Last Admin: 03/28/24 08:13 Dose: 7.5 mg Haloperidol Lactate (Haloperidol Lactate 5 Mg/Ml Vial) 7.5 mg IM BID PRN PRN Reason: Refusal of Court PO Haldol Lorazepam (Lorazepam 1 Mg Tablet) 2 mg PO Q6H PRN PRN Reason: agitation Last Admin: 03/28/24 11:53 Dose: 2 mg Magnesium Hydroxide (Milk Of Magnesia 30 Ml Oral.Susp) 30 ml PO DAILY PRN PRN Reason: Constipation Nicotine Polacrilex (Nicotine Polacrilex 2 Mg Gum) 2 mg BUCCAL Q2H PRN PRN Reason: Nicotine Cravings Trazodone HCl (Trazodone Hcl 50 Mg Tablet) 50 mg PO BEDTIME MRX1 PRN PRN Reason: Insomnia Last Admin: 03/27/24 21:08 Dose: 50 mg Valproic Acid (Valproic Acid Liquid 250 Mg/5 Ml Solution) 750 mg PO BID [facility] Last Admin: 03/28/24 08:14 Dose: 750 mg Vitamin D (Cholecalciferol (Vitamin D3) 25 Mcg Tablet) 50 mcg PO DAILY [facility] Last Admin: 03/28/24 08:12 Dose: 50 mcg Allergies Allergies Allergy/AdvReac Type Severity Reaction Status Date / Time lithium Allergy Unknown Verified 01/13/24 18:08 Assessment & Plan Assessment & Plan (1) Schizoaffective disorder, bipolar type: Status: Acute Code(s): F25.0 - Schizoaffective disorder, bipolar type (2) Hypertension: Status: Acute Code(s): I10 - Essential (primary) hypertension (3) Diabetes mellitus: Status: Acute Code(s): E11.9 - Type 2 diabetes mellitus without complications Plan 03/23 keep same treatment 68 yo from a residential with chronic psychotic disorder, refusing medication , elevated bp and disorganized and agitated behavior requiring psychiatric hospitalization and treatment not competent to sign cv. 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 Provide care as he will allow. 01/16: Depakote 250 mg bid Haldol, Lorazepam, Benadryl prn Section 7 to be filed 01/17 Message left for guardian. 01/17: Section Seven filed. . Court scheduled 01/26/24 Pt continues to refuse medicaitons. He is in need of full assist with ADL's and is incontinent. Pt transferred to [facility] this afternoon. 01/19/2024 Patient pending civil commitment loud agitated would not engage in any conversation with this typewriter repairer non informational healing agitated verbally aggressive. Every attempt being made to get a copy of the patient's Servin order unclear why this has been so problematic. Encourage food and fluids 01/19 continue same treatment 01/21/24 Patient labile agitated intrusive close labs ordered in order to per to protect the community patient wandering into patient's rooms intrusive impulsive laying on another person's bed. Often hostile agitated posturing at times we are still pending copy of reported Servin order encourage p.o. compliance 01/22/2024 Patient did require physical hold escort him out of a room that he jumped in other patient's room and on their bed while there were in it. There was no physical harm and the patient did leave the room his markedly impulsive with poor judgment remains on close observation has intermittently taken Haldol liquid pending civil commitment treatment plan there is a question of Servin order 01/22 The patient had been more agitated. We review his Servin order and we are increasing the Abilify up to 15 mg p.o. daily and adding Haldol p.r.n. since it is in his role years order. We needed to give him some p.r.n. at 14:00. 01/23 The patient is grossly psychotic disrobing and sexually disinhibited we are starting Haldol 2 mg p.o. t.i.d. to target psychosis as per court order treatment over objection order. 01/24 The patient remains very agitated and angry disruptive so we are increasing the Haldol from 2 mg to 5 mg p.o. t.i.d. with a backup IM if the patient refused as per court order. 01/25 we have increased the Haldol but still he is very psychotic and restless. Today he refused his blood work. He needed to be physically held twice. 01/26 the patient remains agitated at times but his last IM backup was yesterday. We are going to increase Abilify up to 20 mg daily to target mood lability and psychosis. 01/29/2024: Increase frequency of prn doses from tid to prn q 6mrs. Poor insight and unable to care for self 02/08 pt has not take any of mood stabilizer. continues to have poor sleep, intrusive and combative requiring IM medications, increase haldol 10mg po TID, back up IM. Will add ativan 1mg po TID, also back up IM. Labs show elevated CK 2300, BUN 20, Cr 1.80, unclear baseline Cr as he does have CKD. Discussed with hospitalist Dr. Gama, to give IV fluids and monitor labs tomorrow. LFTs also elevated suspect this is secondary to elevation in CK and should trend down as CK goes down. 02/09 still agitated, creatinine and CPK slightly high as yesterday, he removed his IV line there is no big difference with IV hydration. We are changing his community role years to have more options since it is not working Abilify and Haldol 02/10 3 chemical restraints yesterday. appears more combative, and somewhat more confused. Will decrease amount of benzo and antihistamine given to him as it seems to be backfiring. did discuss with ICU attending, Dr. Whiteside possibility of transferring there but they would like us to try IV depakote and exhaust all resources prior to considering transfer. Pt did take depakote springkle 1000mg with apple sauce with much encourage. 02/11 continue tx. 02/12 continue same treatment 01/14 continue with Abilify and other court order medications, we are Namenda and the court order. 02/14 Team report improvement today with pt having greater comfort and less agitation. [id number] the staff reported that the patient had been less violent in the last 24 hours 02/16 continue tx. will check depakote and ammonia on 02/17 in AM. 02/17 continue regime and plan of care 02/26/2024: Continue current regimen as per court order 03/03 continue tx. lactulose for now as we don't have new ammonia level, but will try to chack labs. 03/16- continue medications, held clonidine patch for today due to low BP. repeat labs. 03/17-continue plan of care 03/18- continue tx 03/19 continue same treatment 03/20 waiting for CBC, basic metabolic panel and ammonia level. Today he nearly choked with a grape. We are going to change his diet to chopped 03/21 patient had a fall and he was assessed. No injuries as per CT scan of head and pelvis. Again he refused again his blood work vital signs within normal limits. 03/22 keep same treatment 03/23 keep same treatment 03 24 24 Continue plan of care Depakote Tegretol Haldol carbamazepine 03/25/2024 Repeat swallowing study ordered he is already on ground diet consider lowering Haldol versus Cogentin generally try to avoid older man 03/26 lowered Haldol to 7.5 p.o. b.i.d. 03/27 start Abilify Maintena 400 IM, later on we stopped it since he was over- sedated. 03/28 monitor vital signs and we will order blood work for tomorrow morning Reason for continued inpatient stay Substantial Risk for: inability to function, rapid decompensation and med/psych decompensation Time Spent With Patient Time: Total time managing care of this patient today _20___ minutes.
[2024-03-28 20:00] VITALS: BP 127/64; PULSE 60; RESP 18; TEMP 36.3; O2SAT 100
[2024-03-29 08:00] VITALS: RESP 18
--- NOTE | 2024-03-29 09:52 | MHC.SLORD ---
Speech Language Pathology Order Status: Per nursing staff, patient sleeping soundly. He did not eat his breakfast, as he was still in bed. He continues on a ground/mechanically altered diet (NDD2) and thin liquids. [employer] will continue to follow.
[2024-03-29] MEDS: carBAMazepine 200 MG TABLET PO ×2 (10:26→21:04)
[2024-03-29] MEDS: Valproic Acid Liquid 250 MG/5 ML SOLUTION 750 MG PO ×2 (10:26→21:03)
[2024-03-29] MEDS: Haloperidol Lactate Oral Conc 10 MG/5 ML ORAL.CONC 7.5 MG PO ×2 (10:27→21:03)
[2024-03-29] MEDS: Aspirin 81 MG TAB.CHEW PO (10:27)
[2024-03-29] MEDS: LORazepam 1 MG TABLET 2 MG PO ×2 (13:06→21:04)
--- NOTE | 2024-03-29 13:07 | P.PNPSI_ITS ---
Subjective Subjective Date of Service: 03/29/24 Reason For Visit: Schizoaffective disorder Subjective Notes: Section 7 and Section 8 Interim History: The nursing staff reported the patient slept 7 hours he continues on constant observation. He received Haldol and Ativan PRNs since he refused his p.o.. On interview the patient was on his bed, internally preoccupied. Mental Status Exam Mental Status Exam Patient Appearance: Appropriate Patient Orientation: Person and Situation Level of Consciousness: Awake and Appropriate Patient Behavior: Guarded and Passive Mood Description: Withdrawn Affect Description: Blunted Patient Cognition Impaired: Yes Ability to Follow Directions: Fair Speech Pattern: Impoverished Hallucinations: Auditory Delusions: Paranoid Ideation and Ideas of Reference Thought Process: Distracted and Slowed Thinking Thought Content: positive for Ozan and positive for Poverty of Content Judgement: Poor Diagnostics Vital Signs (24Hr): Vital Signs - 24 hr 03/28/24 20:00 03/29/24 08:00 Temperature 97.4 F Pulse Rate 60 Respiratory Rate 18 18 Blood Pressure 127/64 Pulse Oximetry 100 Oxygen Delivery Method Room Air BMI result Body Mass Index 25.1 Labs 03/26/24 15:39 03/26/24 15:39 Imaging Radiology Impressions: ITS Impressions Chest X-Ray 03/20/24 08:33 IMPRESSION: Extremely limited exam. Only lateral views could be obtained. Suspect basilar airspace opacity, possibly pneumonia. Electronically signed by: Fortino Dumont MD 03/20/2024 10:10 AM EST RP Cervical Spine CT 03/21/24 11:18 IMPRESSION: 1. Allowing for suboptimal positioning, there is no CT evidence of acute cervical spine fracture or injury. 2. Degenerative changes with bulky ventral osteophytes spanning C4-C6, appearance in keeping with DISH. Electronically signed by: Fortino Dumont MD 03/21/2024 12:01 PM EST RP Head CT 03/21/24 11:18 IMPRESSION: 1. No acute intracranial abnormality. No acute fractures seen. 2. Stable chronic findings as discussed. Electronically signed by: Fortino Dumont MD 03/21/2024 11:54 AM EST RP Pelvis CT 03/21/24 11:18 IMPRESSION: 1. No acute bony abnormalities. No fractures. 2. Constipation with a large amount of stool in the rectum and sigmoid colon. 3. Mild thickening of the urinary bladder wall despite underdistention, nonspecific. Differential includes the detrusor hypertrophy, neurogenic bladder, or possibly cystitis. Electronically signed by: Fortino Dumont MD 03/21/2024 12:09 PM EST RP Head CT 03/28/24 09:37 IMPRESSION: No acute fracture, bony calvarium. No acute intracranial hemorrhage. Small vessel occlusive disease. Bifrontal bitemporal lobe atrophy. Electronically signed by: Juan Corrigan MD 03/28/2024 10:19 AM EST RP Medications Medications Current Medications Acetaminophen (Acetaminophen 325 Mg Tablet) 650 mg PO Q6H PRN PRN Reason: Headache/Pain Mild Scale (1-3) Last Admin: 01/17/24 23:53 Dose: 325 mg Al Hydroxide/Mg Hydroxide (Magnesium Hydrox/Alum Hydrox 30 Ml Oral.Susp) 30 ml PO Q6H PRN PRN Reason: Heartburn/Nausea Amlodipine Besylate (Amlodipine Besylate 10 Mg Tablet) 10 mg PO DAILY [facility]; Protocol Last Admin: 03/29/24 10:46 Dose: Not Given Aspirin (Aspirin 81 Mg Tab.Chew) 81 mg PO DAILY [facility] Last Admin: 03/29/24 10:27 Dose: 81 mg Atorvastatin Calcium (Atorvastatin Calcium 40 Mg Tablet) 40 mg PO DAILY [facility] Last Admin: 03/29/24 10:44 Dose: Not Given Carbamazepine (Carbamazepine 200 Mg Tablet) 200 mg PO BID [facility] Last Admin: 03/29/24 10:26 Dose: 200 mg Clonidine (Clonidine 0.2 Mg Patch.Tdwk) 0.2 mg TRANSDERMA Fr@0900 [facility]; Protocol Last Admin: 03/23/24 10:12 Dose: Not Given Ferrous Sulfate (Ferrous Sulfate 324 Mg Tablet.Dr) 324 mg PO BID [facility] Last Admin: 03/29/24 10:45 Dose: Not Given Haloperidol Lactate (Haloperidol Lactate Oral Conc 10 Mg/5 Ml Oral.Conc) 5 mg PO Q6H PRN PRN Reason: Psychosis or severe agitation Last Admin: 03/28/24 11:53 Dose: 5 mg Haloperidol Lactate (Haloperidol Lactate Oral Conc 10 Mg/5 Ml Oral.Conc) 7.5 mg PO BID [facility] Last Admin: 03/29/24 10:27 Dose: 7.5 mg Haloperidol Lactate (Haloperidol Lactate 5 Mg/Ml Vial) 7.5 mg IM BID PRN PRN Reason: Refusal of Court PO Haldol Lorazepam (Lorazepam 1 Mg Tablet) 2 mg PO Q6H PRN PRN Reason: agitation Last Admin: 03/28/24 22:32 Dose: 2 mg Magnesium Hydroxide (Milk Of Magnesia 30 Ml Oral.Susp) 30 ml PO DAILY PRN PRN Reason: Constipation Nicotine Polacrilex (Nicotine Polacrilex 2 Mg Gum) 2 mg BUCCAL Q2H PRN PRN Reason: Nicotine Cravings Trazodone HCl (Trazodone Hcl 50 Mg Tablet) 50 mg PO BEDTIME MRX1 PRN PRN Reason: Insomnia Last Admin: 03/27/24 21:08 Dose: 50 mg Valproic Acid (Valproic Acid Liquid 250 Mg/5 Ml Solution) 750 mg PO BID [facility] Last Admin: 03/29/24 10:26 Dose: 750 mg Vitamin D (Cholecalciferol (Vitamin D3) 25 Mcg Tablet) 50 mcg PO DAILY [facility] Last Admin: 03/29/24 10:45 Dose: Not Given Allergies Allergies Allergy/AdvReac Type Severity Reaction Status Date / Time lithium Allergy Unknown Verified 01/13/24 18:08 Assessment & Plan Assessment & Plan (1) Schizoaffective disorder, bipolar type: Status: Acute Code(s): F25.0 - Schizoaffective disorder, bipolar type (2) Hypertension: Status: Acute Code(s): I10 - Essential (primary) hypertension (3) Diabetes mellitus: Status: Acute Code(s): E11.9 - Type 2 diabetes mellitus without complications Plan 03/23 keep same treatment 68 yo from a intermediate with chronic psychotic disorder, refusing medication , elevated bp and disorganized and agitated behavior requiring psychiatric hospitalization and treatment not competent to sign cv. 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 Provide care as he will allow. 01/16: Depakote 250 mg bid Haldol, Lorazepam, Benadryl prn Section 7 to be filed 11/27 Message left for guardian. 01/17: Section Seven filed. . Court scheduled 01/26/24 Pt continues to refuse medicaitons. He is in need of full assist with ADL's and is incontinent. Pt transferred to [facility] this afternoon. 01/19/2024 Patient pending civil commitment loud agitated would not engage in any conversation with this ticket writer non informational healing agitated verbally aggressive. Every attempt being made to get a copy of the patient's Servin order unclear why this has been so problematic. Encourage food and fluids 01/19 continue same treatment 01/21/24 Patient labile agitated intrusive close labs ordered in order to per to protect the community patient wandering into patient's rooms intrusive impulsive laying on another person's bed. Often hostile agitated posturing at times we are still pending copy of reported Servin order encourage p.o. compliance 01/22/2024 Patient did require physical hold escort him out of a room that he jumped in other patient's room and on their bed while there were in it. There was no physical harm and the patient did leave the room his markedly impulsive with poor judgment remains on close observation has intermittently taken Haldol liquid pending civil commitment treatment plan there is a question of Servin order 01/22 The patient had been more agitated. We review his Servin order and we are increasing the Abilify up to 15 mg p.o. daily and adding Haldol p.r.n. since it is in his role years order. We needed to give him some p.r.n. at 14:00. 01/23 The patient is grossly psychotic disrobing and sexually disinhibited we are starting Haldol 2 mg p.o. t.i.d. to target psychosis as per court order treatment over objection order. 01/24 The patient remains very agitated and angry disruptive so we are increasing the Haldol from 2 mg to 5 mg p.o. t.i.d. with a backup IM if the patient refused as per court order. 01/25 we have increased the Haldol but still he is very psychotic and restless. Today he refused his blood work. He needed to be physically held twice. 01/26 the patient remains agitated at times but his last IM backup was yesterday. We are going to increase Abilify up to 20 mg daily to target mood lability and psychosis. 01/29/2024: Increase frequency of prn doses from tid to prn q 6mrs. Poor insight and unable to care for self 02/08 pt has not take any of mood stabilizer. continues to have poor sleep, intrusive and combative requiring IM medications, increase haldol 10mg po TID, back up IM. Will add ativan 1mg po TID, also back up IM. Labs show elevated CK 2300, BUN 20, Cr 1.80, unclear baseline Cr as he does have CKD. Discussed with hospitalist Dr. Gama, to give IV fluids and monitor labs tomorrow. LFTs also elevated suspect this is secondary to elevation in CK and should trend down as CK goes down. 02/09 still agitated, creatinine and CPK slightly high as yesterday, he removed his IV line there is no big difference with IV hydration. We are changing his community role years to have more options since it is not working Abilify and Haldol 02/10 3 chemical restraints yesterday. appears more combative, and somewhat more confused. Will decrease amount of benzo and antihistamine given to him as it seems to be backfiring. did discuss with ICU attending, Dr. Whiteside possibility of transferring there but they would like us to try IV depakote and exhaust all resources prior to considering transfer. Pt did take depakote springkle 1000mg with apple sauce with much encourage. 02/11 continue tx. 02/12 continue same treatment 01/14 continue with Abilify and other court order medications, we are Namenda and the court order. 02/14 Team report improvement today with pt having greater comfort and less agitation. [id number] the staff reported that the patient had been less violent in the last 24 hours 02/16 continue tx. will check depakote and ammonia on 02/17 in AM. 02/17 continue regime and plan of care 02/26/2024: Continue current regimen as per court order 03/03 continue tx. lactulose for now as we don't have new ammonia level, but will try to chack labs. 03/16- continue medications, held clonidine patch for today due to low BP. repeat labs. 03/17-continue plan of care 03/18- continue tx 03/19 continue same treatment 03/20 waiting for CBC, basic metabolic panel and ammonia level. Today he nearly choked with a grape. We are going to change his diet to chopped 03/21 patient had a fall and he was assessed. No injuries as per CT scan of head and pelvis. Again he refused again his blood work vital signs within normal limits. 03/22 keep same treatment 03/23 keep same treatment 03 24 24 Continue plan of care Depakote Tegretol Haldol carbamazepine 03/25/2024 Repeat swallowing study ordered he is already on ground diet consider lowering Haldol versus Cogentin generally try to avoid older man 03/26 lowered Haldol to 7.5 p.o. b.i.d. 03/27 start Abilify Maintena 400 IM, later on we stopped it since he was over- sedated. 03/28 monitor vital signs and we will order blood work for tomorrow morning. 03/29 keep same treatment. We are deferring Abilify Maintena since the patient is still sedated and looks slightly delirious. He has refused blood work Reason for continued inpatient stay Substantial Risk for: inability to function, rapid decompensation and med/psych decompensation Time Spent With Patient Time: Total time managing care of this patient today __20__ minutes.
[2024-03-29] MEDS: Haloperidol Lactate Oral Conc 10 MG/5 ML ORAL.CONC 5 MG PO (13:11)
[2024-03-29] MEDS: traZODone HCL 50 MG TABLET PO ×2 (21:04→22:47)
[2024-03-30] MEDS: Valproic Acid Liquid 250 MG/5 ML SOLUTION 750 MG PO ×2 (07:45→20:20)
[2024-03-30] MEDS: carBAMazepine 200 MG TABLET PO ×2 (07:45→20:20)
[2024-03-30] MEDS: Aspirin 81 MG TAB.CHEW PO (07:45)
[2024-03-30] MEDS: Haloperidol Lactate Oral Conc 10 MG/5 ML ORAL.CONC 7.5 MG PO ×2 (07:54→20:20)
[2024-03-30 08:00] VITALS: RESP 18
--- NOTE | 2024-03-30 09:14 | P.PNPSI_ITS ---
Subjective Subjective Date of Service: 03/30/24 Reason For Visit: Schizoaffective disorder Subjective Notes: Section 7 Interim History: Pt slept 7hrs. He continues to need 2 to 1 due to disorganized and impulsive and purposeless behaviors. Pt seen in bed. he tells this freelance writer take the business. when asked to elaborate, pt states take the business to take the business. His speech is mostly non sensical. less combative behaviors but mentation with no improvement at all. Review of Systems Review of Systems currently one one to one Yes Unobtainable due to mental status Mental Status Exam Mental Status Exam Narrative: Appearance: hospital gown, fair hygiene, laying bed, in NAD Behavior: minimally engaging Psychomotor: no noted tremors. Speech: mumbles at times, spontaneous TP: derailed/disorganized TC: taking about business Mood: did not report Affect: intense eye contact SI: none HI: none VH/AH: no signs of psychosis, mostly delusions Delusions: difficult to assess at this time content, as he is very disorganized Insight/judgment: impaired x 2. Memory/cog: alert, not oriented to place, month, nor year nor situation. Diagnostics Vital Signs (24Hr): Vital Signs - 24 hr 03/30/24 08:00 Respiratory Rate 18 BMI result Body Mass Index 25.1 Labs 03/30/24 08:49 03/30/24 08:49 Imaging Radiology Impressions: ITS Impressions Chest X-Ray 03/20/24 08:33 IMPRESSION: Extremely limited exam. Only lateral views could be obtained. Suspect basilar airspace opacity, possibly pneumonia. Electronically signed by: Fortino Dumont MD 03/20/2024 10:10 AM EST RP Cervical Spine CT 03/21/24 11:18 IMPRESSION: 1. Allowing for suboptimal positioning, there is no CT evidence of acute cervical spine fracture or injury. 2. Degenerative changes with bulky ventral osteophytes spanning C4-C6, appearance in keeping with DISH. Electronically signed by: Fortino Dumont MD 03/21/2024 12:01 PM EST RP Head CT 03/21/24 11:18 IMPRESSION: 1. No acute intracranial abnormality. No acute fractures seen. 2. Stable chronic findings as discussed. Electronically signed by: Fortino Dumont MD 03/21/2024 11:54 AM EST RP Pelvis CT 03/21/24 11:18 IMPRESSION: 1. No acute bony abnormalities. No fractures. 2. Constipation with a large amount of stool in the rectum and sigmoid colon. 3. Mild thickening of the urinary bladder wall despite underdistention, nonspecific. Differential includes the detrusor hypertrophy, neurogenic bladder, or possibly cystitis. Electronically signed by: Fortino Dumont MD 03/21/2024 12:09 PM EST RP Head CT 03/28/24 09:37 IMPRESSION: No acute fracture, bony calvarium. No acute intracranial hemorrhage. Small vessel occlusive disease. Bifrontal bitemporal lobe atrophy. Electronically signed by: Juan Corrigan MD 03/28/2024 10:19 AM EST RP Medications Medications Current Medications Acetaminophen (Acetaminophen 325 Mg Tablet) 650 mg PO Q6H PRN PRN Reason: Headache/Pain Mild Scale (1-3) Last Admin: 01/17/24 23:53 Dose: 325 mg Al Hydroxide/Mg Hydroxide (Magnesium Hydrox/Alum Hydrox 30 Ml Oral.Susp) 30 ml PO Q6H PRN PRN Reason: Heartburn/Nausea Amlodipine Besylate (Amlodipine Besylate 10 Mg Tablet) 10 mg PO DAILY [facility]; Protocol Last Admin: 03/30/24 09:07 Dose: Not Given Aspirin (Aspirin 81 Mg Tab.Chew) 81 mg PO DAILY [facility] Last Admin: 03/30/24 07:45 Dose: 81 mg Atorvastatin Calcium (Atorvastatin Calcium 40 Mg Tablet) 40 mg PO DAILY [facility] Last Admin: 03/30/24 09:07 Dose: Not Given Carbamazepine (Carbamazepine 200 Mg Tablet) 200 mg PO BID [facility] Last Admin: 03/30/24 07:45 Dose: 200 mg Clonidine (Clonidine 0.2 Mg Patch.Tdwk) 0.2 mg TRANSDERMA Fr@0900 [facility]; Protocol Last Admin: 03/30/24 09:09 Dose: Not Given Ferrous Sulfate (Ferrous Sulfate 324 Mg Tablet.Dr) 324 mg PO BID [facility] Last Admin: 03/30/24 09:09 Dose: Not Given Haloperidol Lactate (Haloperidol Lactate Oral Conc 10 Mg/5 Ml Oral.Conc) 5 mg PO Q6H PRN PRN Reason: Psychosis or severe agitation Last Admin: 03/29/24 13:11 Dose: 5 mg Haloperidol Lactate (Haloperidol Lactate Oral Conc 10 Mg/5 Ml Oral.Conc) 7.5 mg PO BID [facility] Last Admin: 03/30/24 07:54 Dose: 7.5 mg Haloperidol Lactate (Haloperidol Lactate 5 Mg/Ml Vial) 7.5 mg IM BID PRN PRN Reason: Refusal of Court PO Haldol Lorazepam (Lorazepam 1 Mg Tablet) 2 mg PO Q6H PRN PRN Reason: agitation Last Admin: 03/29/24 21:04 Dose: 2 mg Magnesium Hydroxide (Milk Of Magnesia 30 Ml Oral.Susp) 30 ml PO DAILY PRN PRN Reason: Constipation Nicotine Polacrilex (Nicotine Polacrilex 2 Mg Gum) 2 mg BUCCAL Q2H PRN PRN Reason: Nicotine Cravings Trazodone HCl (Trazodone Hcl 50 Mg Tablet) 50 mg PO BEDTIME MRX1 PRN PRN Reason: Insomnia Last Admin: 03/29/24 22:47 Dose: 50 mg Valproic Acid (Valproic Acid Liquid 250 Mg/5 Ml Solution) 750 mg PO BID [facility] Last Admin: 03/30/24 07:45 Dose: 750 mg Vitamin D (Cholecalciferol (Vitamin D3) 25 Mcg Tablet) 50 mcg PO DAILY [facility] Last Admin: 03/30/24 09:07 Dose: Not Given Allergies Allergies Allergy/AdvReac Type Severity Reaction Status Date / Time lithium Allergy Unknown Verified 01/13/24 18:08 Assessment & Plan Assessment & Plan (1) Schizoaffective disorder, bipolar type: Status: Acute Code(s): F25.0 - Schizoaffective disorder, bipolar type (2) Hypertension: Status: Acute Code(s): I10 - Essential (primary) hypertension (3) Diabetes mellitus: Status: Acute Code(s): E11.9 - Type 2 diabetes mellitus without complications Plan 03/23 keep same treatment 68 yo from a shelter with chronic psychotic disorder, refusing medication , elevated bp and disorganized and agitated behavior requiring psychiatric hospitalization and treatment not competent to sign cv. 01/14 continue to follow - gave lambs warning today- and he says the electrician's helper will be a she- still refusing medications and quite psychotic takes alot of redirection to settle him poor adls- 01/15- Refuses meds, refuses hospitalist consult-second day File for Section Seven consideration on 01/17. Provide care as he will allow. 01/16: Depakote 250 mg bid Haldol, Lorazepam, Benadryl prn Section 7 to be filed 01/17 Message left for guardian. 01/17: Section Seven filed. . Court scheduled 01/26/24 Pt continues to refuse medicaitons. He is in need of full assist with ADL's and is incontinent. Pt transferred to [facility] this afternoon. 01/19/2024 Patient pending civil commitment loud agitated would not engage in any conversation with this freelance writer non informational healing agitated verbally aggressive. Every attempt being made to get a copy of the patient's Servin order unclear why this has been so problematic. Encourage food and fluids 01/19 continue same treatment 01/21/24 Patient labile agitated intrusive close labs ordered in order to per to protect the community patient wandering into patient's rooms intrusive impulsive laying on another person's bed. Often hostile agitated posturing at times we are still pending copy of reported Servin order encourage p.o. compliance 01/22/2024 Patient did require physical hold escort him out of a room that he jumped in other patient's room and on their bed while there were in it. There was no physical harm and the patient did leave the room his markedly impulsive with poor judgment remains on close observation has intermittently taken Haldol liquid pending civil commitment treatment plan there is a question of Servin order 01/22 The patient had been more agitated. We review his Servin order and we are increasing the Abilify up to 15 mg p.o. daily and adding Haldol p.r.n. since it is in his role years order. We needed to give him some p.r.n. at 14:00. 01/23 The patient is grossly psychotic disrobing and sexually disinhibited we are starting Haldol 2 mg p.o. t.i.d. to target psychosis as per court order treatment over objection order. 01/24 The patient remains very agitated and angry disruptive so we are increasing the Haldol from 2 mg to 5 mg p.o. t.i.d. with a backup IM if the patient refused as per court order. 01/25 we have increased the Haldol but still he is very psychotic and restless. Today he refused his blood work. He needed to be physically held twice. 01/26 the patient remains agitated at times but his last IM backup was yesterday. We are going to increase Abilify up to 20 mg daily to target mood lability and psychosis. 01/29/2024: Increase frequency of prn doses from tid to prn q 6mrs. Poor insight and unable to care for self 02/08 pt has not take any of mood stabilizer. continues to have poor sleep, intrusive and combative requiring IM medications, increase haldol 10mg po TID, back up IM. Will add ativan 1mg po TID, also back up IM. Labs show elevated CK 2300, BUN 20, Cr 1.80, unclear baseline Cr as he does have CKD. Discussed with hospitalist Dr. Gama, to give IV fluids and monitor labs tomorrow. LFTs also elevated suspect this is secondary to elevation in CK and should trend down as CK goes down. 02/09 still agitated, creatinine and CPK slightly high as yesterday, he removed his IV line there is no big difference with IV hydration. We are changing his community role years to have more options since it is not working Abilify and Haldol 02/10 3 chemical restraints yesterday. appears more combative, and somewhat more confused. Will decrease amount of benzo and antihistamine given to him as it seems to be backfiring. did discuss with ICU attending, Dr. Whiteside possibility of transferring there but they would like us to try IV depakote and exhaust all resources prior to considering transfer. Pt did take depakote springkle 1000mg with apple sauce with much encourage. 02/11 continue tx. 02/12 continue same treatment 01/14 continue with Abilify and other court order medications, we are Namenda and the court order. 02/14 Team report improvement today with pt having greater comfort and less agitation. 1126 the staff reported that the patient had been less violent in the last 24 hours 02/16 continue tx. will check depakote and ammonia on 02/17 in AM. 02/17 continue regime and plan of care 02/26/2024: Continue current regimen as per court order 03/03 continue tx. lactulose for now as we don't have new ammonia level, but will try to chack labs. 03/16- continue medications, held clonidine patch for today due to low BP. repeat labs. 03/17-continue plan of care 03/18- continue tx 03/19 continue same treatment 03/20 waiting for CBC, basic metabolic panel and ammonia level. Today he nearly choked with a grape. We are going to change his diet to chopped 03/21 patient had a fall and he was assessed. No injuries as per CT scan of head and pelvis. Again he refused again his blood work vital signs within normal limits. 03/22 keep same treatment 03/23 keep same treatment 03 24 24 Continue plan of care Depakote Tegretol Haldol carbamazepine 03/25/2024 Repeat swallowing study ordered he is already on ground diet consider lowering Haldol versus Cogentin generally try to avoid older man 03/26 lowered Haldol to 7.5 p.o. b.i.d. 03/27 start Abilify Maintena 400 IM, later on we stopped it since he was over- sedated. 03/28 monitor vital signs and we will order blood work for tomorrow morning. 03/29 keep same treatment. We are deferring Abilify Maintena since the patient is still sedated and looks slightly delirious. He has refused blood work 03/30 continue current tx. less combative but no improvement in mentation. grossly disorganized and non sensical. Reason for continued inpatient stay Substantial Risk for: inability to function Time Spent With Patient Time: Total time managing care of this patient today ____ minutes.
[2024-03-30 09:25] LABS: Basophils Percent Auto 0.3 % (0-2); Eosinophils Percent Auto 1.2 % (0-4); Hematocrit 33.1 % (42.0-52.0); Imm Gran Abs Auto 0.01 X10*3/uL (0.00-0.03); Imm Gran Pct Auto 0.3 % (0.0-0.4); Lymphocytes Percent Auto 60.7 % (20-40); MANUAL DIFF FLAG SCAN; Mean Corpuscular HGB Conc 33.2 g/dl (31.0-36.0); Mean Corpuscular Hemoglobin 29.6 pg (27.0-33.0); Monocytes Absolute Auto 0.3 X10*3/uL (0.1-1.2); Monocytes Percent Auto 8.1 % (2-11); Neutrophils Percent Auto 29.4 % (45-73); Red Blood Count 3.72 X10*6/uL (4.60-5.80); Red Cell Distribution Width 15.7 % (11.0-16.0); SCAN SMEAR FLAG 1; White Blood Count 3.3 X10*3/uL (4.8-10.8)
[2024-03-30 09:46] LABS: Alanine Aminotransferase 11 U/L (0-40); Albumin Level 3.8 g/dL (3.5-5.0); Alkaline Phosphatase 123 U/L (39-117); Anion Gap 13 (12-20); Aspartate Amino Transferase 22 U/L (5-37); Bilirubin Total 0.3 mg/dL (0.0-1.0); Blood Urea Nitrogen 17 mg/dL (9-16); Calcium 9.3 mg/dL (8.4-10.2); Carbon Dioxide 23 mmol/L (22-29); Chloride 106 mmol/L (96-108); Creatinine Clr Calc Pharmacy 57.1; Estimated Glomerular Filt Rate 56; Glucose Fasting 130 mg/dL (60-99); Potassium 4.9 mmol/L (3.3-5.1); Sodium 137 mmol/L (135-145); Total Protein 6.9 g/dL (6.5-8.0)
[2024-03-30 10:15] LABS: Mean Platelet Volume 11.6 fL (9.4-12.4); Platelet Count 88 X10*3/uL (160-400)
[2024-03-30 10:16] LABS: SLIDE REVIEW VERIFIED
[2024-03-30] MEDS: LORazepam 1 MG TABLET 2 MG PO ×2 (15:38→21:03)
[2024-03-30] MEDS: Haloperidol Lactate Oral Conc 10 MG/5 ML ORAL.CONC 5 MG PO (15:48)
[2024-03-30 19:03] VITALS: BP 144/92; PULSE 74; TEMP 37.1
[2024-03-30] MEDS: Ferrous Sulfate 324 MG TABLET.DR PO (20:20)
[2024-03-31 02:35] VITALS: BP 143/66; PULSE 58; RESP 16; TEMP 36.1; O2SAT 99
--- NOTE | 2024-03-31 02:40 | PC.NURSE ---
Staff reported patient vomited content mostly liquid, t/w spoke with patient was responsive, doesn't appears in distress, vital assessed was within normal limits, he is on close observation, will continue to monitor
[2024-03-31] MEDS: Haloperidol Lactate Oral Conc 10 MG/5 ML ORAL.CONC 5 MG PO (06:02)
[2024-03-31] MEDS: LORazepam 1 MG TABLET 2 MG PO ×2 (06:03→19:46)
--- NOTE | 2024-03-31 08:11 | P.PNPSI_ITS ---
Subjective Subjective Date of Service: 03/31/24 Reason For Visit: Schizoaffective disorder Interim History: Met with patient. Discussed with Nursing. Pt held for 1 minute ([id number]) to administer court ordered medication . In room reports that he is doing okay. Pleasant with technical publications writer lying under covers. Reports staff treating him well. Unable to name the place that he was in. Stated the month was October. Denies feeling depressed. Medication Compliance: Yes ( As per court order) Side effects from medications: No Attending Groups: No Review of Systems Acute medical concerns: No Review of Systems Review of Systems currently one one to one Mental Status Exam Mental Status Exam Narrative: Appearance: hospital gown, fair hygiene, laying bed, in NAD Behavior: minimally engaging Psychomotor: no noted tremors. Speech: mumbles, spontaneous TP: derailed/disorganized TC: nothing of note Mood: did not report Affect: intense eye contact SI: none HI: none VH/AH: denied Delusions: difficult to assess at this time content, as he is very disorganized Insight/judgment: impaired x 2. Memory/cog: alert, not oriented to place, month, nor year nor situation. Diagnostics Vital Signs (24Hr): Vital Signs - 24 hr 03/30/24 19:03 03/31/24 02:35 Temperature 98.7 F 96.9 F Pulse Rate 74 58 Respiratory Rate 16 Blood Pressure 144/92 H 143/66 H Pulse Oximetry 99 Oxygen Delivery Method Room Air BMI result Body Mass Index 25.1 Labs 03/30/24 08:49 03/30/24 08:49 Labs: Laboratory Results - last 48 hr 03/30/24 08:49 WBC 3.3 L RBC 3.72 L Hgb 11.0 L Hct 33.1 L MCV 89.0 MCH 29.6 MCHC 33.2 RDW 15.7 Plt Count 88 L D MPV 11.6 Immature Gran % (Auto) 0.3 Neut % (Auto) 29.4 L Lymph % (Auto) 60.7 H [place] % (Auto) 8.1 Eos % (Auto) 1.2 Baso % (Auto) 0.3 Lymph # (Auto) 2.0 [place] # (Auto) 0.3 Eos # (Auto) 0.0 Baso # (Auto) 0.0 Abs Immat Gran (auto) 0.01 Absolute Neuts (auto) 1.0 L Absolute Nucleated RBC 0.000 Nucleated RBC % (auto) 0.0 Smear Tech's Comments VERIFIED Sodium 137 Potassium 4.9 Chloride 106 Carbon Dioxide 23 Anion Gap 13 BUN 17 H Creatinine 1.28 Estim Creat Clear Calc 57.1 Estimated GFR 56 Fasting Glucose 130 H Calcium 9.3 Total Bilirubin 0.3 AST 22 ALT 11 Alkaline Phosphatase 123 H Total Protein 6.9 Albumin 3.8 Imaging Radiology Impressions: ITS Impressions Chest X-Ray 03/20/24 08:33 IMPRESSION: Extremely limited exam. Only lateral views could be obtained. Suspect basilar airspace opacity, possibly pneumonia. Electronically signed by: Fortino Dumont MD 03/20/2024 10:10 AM EST RP Cervical Spine CT 03/21/24 11:18 IMPRESSION: 1. Allowing for suboptimal positioning, there is no CT evidence of acute cervical spine fracture or injury. 2. Degenerative changes with bulky ventral osteophytes spanning C4-C6, appearance in keeping with DISH. Electronically signed by: Fortino Dumont MD 03/21/2024 12:01 PM EST RP Head CT 03/21/24 11:18 IMPRESSION: 1. No acute intracranial abnormality. No acute fractures seen. 2. Stable chronic findings as discussed. Electronically signed by: Fortino Dumont MD 03/21/2024 11:54 AM EST RP Pelvis CT 03/21/24 11:18 IMPRESSION: 1. No acute bony abnormalities. No fractures. 2. Constipation with a large amount of stool in the rectum and sigmoid colon. 3. Mild thickening of the urinary bladder wall despite underdistention, nonspecific. Differential includes the detrusor hypertrophy, neurogenic bladder, or possibly cystitis. Electronically signed by: Fortino Dumont MD 03/21/2024 12:09 PM EST RP Head CT 03/28/24 09:37 IMPRESSION: No acute fracture, bony calvarium. No acute intracranial hemorrhage. Small vessel occlusive disease. Bifrontal bitemporal lobe atrophy. Electronically signed by: Juan Corrigan MD 03/28/2024 10:19 AM EST RP Medications Medications Current Medications Acetaminophen (Acetaminophen 325 Mg Tablet) 650 mg PO Q6H PRN PRN Reason: Headache/Pain Mild Scale (1-3) Last Admin: 01/17/24 23:53 Dose: 325 mg Al Hydroxide/Mg Hydroxide (Magnesium Hydrox/Alum Hydrox 30 Ml Oral.Susp) 30 ml PO Q6H PRN PRN Reason: Heartburn/Nausea Amlodipine Besylate (Amlodipine Besylate 10 Mg Tablet) 10 mg PO DAILY [facility]; Protocol Last Admin: 03/30/24 09:07 Dose: Not Given Aspirin (Aspirin 81 Mg Tab.Chew) 81 mg PO DAILY [facility] Last Admin: 03/30/24 07:45 Dose: 81 mg Atorvastatin Calcium (Atorvastatin Calcium 40 Mg Tablet) 40 mg PO DAILY [facility] Last Admin: 03/30/24 09:07 Dose: Not Given Carbamazepine (Carbamazepine 200 Mg Tablet) 200 mg PO BID [facility] Last Admin: 03/30/24 20:20 Dose: 200 mg Clonidine (Clonidine 0.2 Mg Patch.Tdwk) 0.2 mg TRANSDERMA Fr@0900 [facility]; Protocol Last Admin: 03/30/24 09:09 Dose: Not Given Ferrous Sulfate (Ferrous Sulfate 324 Mg Tablet.) 324 mg PO BID [facility] Last Admin: 03/30/24 20:20 Dose: 324 mg Haloperidol Lactate (Haloperidol Lactate Oral Conc 10 Mg/5 Ml Oral.Conc) 5 mg PO Q6H PRN PRN Reason: Psychosis or severe agitation Last Admin: 03/31/24 06:02 Dose: 5 mg Haloperidol Lactate (Haloperidol Lactate Oral Conc 10 Mg/5 Ml Oral.Conc) 7.5 mg PO BID [facility] Last Admin: 03/30/24 20:20 Dose: 7.5 mg Haloperidol Lactate (Haloperidol Lactate 5 Mg/Ml Vial) 7.5 mg IM BID PRN PRN Reason: Refusal of Court PO Haldol Lorazepam (Lorazepam 1 Mg Tablet) 2 mg PO Q6H PRN PRN Reason: agitation Last Admin: 03/31/24 06:03 Dose: 2 mg Magnesium Hydroxide (Milk Of Magnesia 30 Ml Oral.Susp) 30 ml PO DAILY PRN PRN Reason: Constipation Nicotine Polacrilex (Nicotine Polacrilex 2 Mg Gum) 2 mg BUCCAL Q2H PRN PRN Reason: Nicotine Cravings Trazodone HCl (Trazodone Hcl 50 Mg Tablet) 50 mg PO BEDTIME MRX1 PRN PRN Reason: Insomnia Last Admin: 03/29/24 22:47 Dose: 50 mg Valproic Acid (Valproic Acid Liquid 250 Mg/5 Ml Solution) 750 mg PO BID [facility] Last Admin: 03/30/24 20:20 Dose: 750 mg Vitamin D (Cholecalciferol (Vitamin D3) 25 Mcg Tablet) 50 mcg PO DAILY [facility] Last Admin: 03/30/24 09:07 Dose: Not Given Allergies Allergies Allergy/AdvReac Type Severity Reaction Status Date / Time lithium Allergy Unknown Verified 01/13/24 18:08 Assessment & Plan Assessment & Plan (1) Schizoaffective disorder, bipolar type: Status: Acute Code(s): F25.0 - Schizoaffective disorder, bipolar type (2) Hypertension: Status: Acute Code(s): I10 - Essential (primary) hypertension (3) Diabetes mellitus: Status: Acute Code(s): E11.9 - Type 2 diabetes mellitus without complications Plan 03/23 keep same treatment 68 yo from a intermediate with chronic psychotic disorder, refusing medication , elevated bp and disorganized and agitated behavior requiring psychiatric hospitalization and treatment not competent to sign cv. 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 Provide care as he will allow. 01/16: Depakote 250 mg bid Haldol, Lorazepam, Benadryl prn Section 7 to be filed 01/17 Message left for guardian. 01/17: Section Seven filed. . Court scheduled 01/26/24 Pt continues to refuse medicaitons. He is in need of full assist with ADL's and is incontinent. Pt transferred to [facility] this afternoon. 01/19/2024 Patient pending civil commitment loud agitated would not engage in any conversation with this technical publications writer non informational healing agitated verbally aggressive. Every attempt being made to get a copy of the patient's Servin order unclear why this has been so problematic. Encourage food and fluids 01/19 continue same treatment 01/21/24 Patient labile agitated intrusive close labs ordered in order to per to protect the community patient wandering into patient's rooms intrusive impulsive laying on another person's bed. Often hostile agitated posturing at times we are still pending copy of reported Servin order encourage p.o. compliance 01/22/2024 Patient did require physical hold escort him out of a room that he jumped in other patient's room and on their bed while there were in it. There was no physical harm and the patient did leave the room his markedly impulsive with poor judgment remains on close observation has intermittently taken Haldol liquid pending civil commitment treatment plan there is a question of Servin order 01/22 The patient had been more agitated. We review his Servin order and we are increasing the Abilify up to 15 mg p.o. daily and adding Haldol p.r.n. since it is in his role years order. We needed to give him some p.r.n. at 14:00. 01/23 The patient is grossly psychotic disrobing and sexually disinhibited we are starting Haldol 2 mg p.o. t.i.d. to target psychosis as per court order treatment over objection order. 01/24 The patient remains very agitated and angry disruptive so we are increasing the Haldol from 2 mg to 5 mg p.o. t.i.d. with a backup IM if the patient refused as per court order. 01/25 we have increased the Haldol but still he is very psychotic and restless. Today he refused his blood work. He needed to be physically held twice. 01/26 the patient remains agitated at times but his last IM backup was yesterday. We are going to increase Abilify up to 20 mg daily to target mood lability and psychosis. 01/29/2024: Increase frequency of prn doses from tid to prn q 6mrs. Poor insight and unable to care for self 02/08 pt has not take any of mood stabilizer. continues to have poor sleep, intrusive and combative requiring IM medications, increase haldol 10mg po TID, back up IM. Will add ativan 1mg po TID, also back up IM. Labs show elevated CK 2300, BUN 20, Cr 1.80, unclear baseline Cr as he does have CKD. Discussed with hospitalist Dr. Gama, to give IV fluids and monitor labs tomorrow. LFTs also elevated suspect this is secondary to elevation in CK and should trend down as CK goes down. 02/09 still agitated, creatinine and CPK slightly high as yesterday, he removed his IV line there is no big difference with IV hydration. We are changing his community role years to have more options since it is not working Abilify and Haldol 02/10 3 chemical restraints yesterday. appears more combative, and somewhat more confused. Will decrease amount of benzo and antihistamine given to him as it seems to be backfiring. did discuss with ICU attending, Dr. Whiteside possibility of transferring there but they would like us to try IV depakote and exhaust all resources prior to considering transfer. Pt did take depakote springkle 1000mg with apple sauce with much encourage. 02/11 continue tx. 02/12 continue same treatment 01/14 continue with Abilify and other court order medications, we are Namenda and the court order. 02/14 Team report improvement today with pt having greater comfort and less agitation. [id number] the staff reported that the patient had been less violent in the last 24 hours 02/16 continue tx. will check depakote and ammonia on 02/17 in AM. 02/17 continue regime and plan of care 02/26/2024: Continue current regimen as per court order 03/03 continue tx. lactulose for now as we don't have new ammonia level, but will try to chack labs. 03/16- continue medications, held clonidine patch for today due to low BP. repeat labs. 03/17-continue plan of care 03/18- continue tx 03/19 continue same treatment 03/20 waiting for CBC, basic metabolic panel and ammonia level. Today he nearly choked with a grape. We are going to change his diet to chopped 03/21 patient had a fall and he was assessed. No injuries as per CT scan of head and pelvis. Again he refused again his blood work vital signs within normal limits. 03/22 keep same treatment 03/23 keep same treatment 03 24 24 Continue plan of care Depakote Tegretol Haldol carbamazepine 03/25/2024 Repeat swallowing study ordered he is already on ground diet consider lowering Haldol versus Cogentin generally try to avoid older man 03/26 lowered Haldol to 7.5 p.o. b.i.d. 03/27 start Abilify Maintena 400 IM, later on we stopped it since he was over- sedated. 03/28 monitor vital signs and we will order blood work for tomorrow morning. 03/29 keep same treatment. We are deferring Abilify Maintena since the patient is still sedated and looks slightly delirious. He has refused blood work 03/31 continue current tx. less combative but no improvement in mentation. grossly disorganized and non sensical. Reason for continued inpatient stay Substantial Risk for: harm to others and inability to function Time Spent With Patient Time: Total time managing care of this patient today ____ minutes.
[2024-03-31] MEDS: Haloperidol Lactate 5 MG/ML VIAL 7.5 MG IM (09:27)
--- NOTE | 2024-03-31 10:04 | PC.NURSE ---
Pt refused his PO medications, and therefore this fiction and nonfiction prose writer was required by [facility]'s order to provide IM of Haldol 7.5mg. Pt resisted the IM and therefore was in a physical hold that lasted from [id number]. No further concerns at this time.
--- NOTE | 2024-03-31 10:20 | HO.BHRESTREX ---
Behavioral Restraint Exam Behavioral Health Restraint Exam Type of Restraint: Physical Hold Medical Concerns for Restraint: No medical concerns, pt w/o acute inj / no noted resp/VS abnormalities Behavioral Assessment / Plan: No further behavioral concerns, continue current plan. Comment: Pt held for [address] ordered medications.
--- NOTE | 2024-03-31 10:21 | HO.PSYEVENT ---
Event Note Date of Service: 03/31/24 Psych Restraint Event Note: Pt held for 1 minute ([id number]) to administer court ordered medication Time Spent With Patient Time: Total time managing care of this patient today ____ minutes.
[2024-03-31] MEDS: Haloperidol Lactate Oral Conc 10 MG/5 ML ORAL.CONC 7.5 MG PO (19:46)
[2024-03-31] MEDS: carBAMazepine 200 MG TABLET PO (19:46)
[2024-03-31] MEDS: Ferrous Sulfate 324 MG TABLET.DR PO (19:46)
[2024-03-31] MEDS: Valproic Acid Liquid 250 MG/5 ML SOLUTION 750 MG PO (19:46)
[2024-04-01] MEDS: Haloperidol Lactate Oral Conc 10 MG/5 ML ORAL.CONC 7.5 MG PO ×3 (08:41→21:37)
[2024-04-01] MEDS: Valproic Acid Liquid 250 MG/5 ML SOLUTION 750 MG PO ×2 (08:42→21:36)
[2024-04-01] MEDS: LORazepam 1 MG TABLET 2 MG PO ×2 (08:42→17:56)
--- NOTE | 2024-04-01 11:12 | HO.PSYCHPN ---
Subjective Subjective Date of Service: 04/01/24 Reason For Visit: Schizoaffective disorder Interim History: Met with patient. Discussed with Nursing. Close obs. In hallway attempting to go into another room. Agitated with staff on redirection. Stated he didnt trust service writer advisor. NOt aggressive though. Later in day was aggressive towards staff, required IM medications and 1 minute hold for same. Medication Compliance: Yes (court) Side effects from medications: No Attending Groups: No Review of Systems Acute medical concerns: No Review of Systems Review of Systems Yes Unobtainable due to mental status Mental Status Exam Mental Status Exam Narrative: Appearance: hospital gown, fair hygiene, wheelchair Behavior: minimally engaging but frustrated at redirection from another room Psychomotor: no noted tremors. Speech: mumbles, spontaneous TP: derailed/disorganized TC: nothing of note Mood: did not report Affect: intense eye contact SI: none HI: none VH/AH: denied Delusions: paranoid I dont trust you . Insight/judgment: impaired Memory/cog: alert, not oriented to place, month, nor year nor situation. Diagnostics Vital Signs (24Hr): BMI result Body Mass Index 25.1 Labs 03/30/24 08:49 03/30/24 08:49 Imaging Radiology Impressions: ITS Impressions Chest X-Ray 03/20/24 08:33 IMPRESSION: Extremely limited exam. Only lateral views could be obtained. Suspect basilar airspace opacity, possibly pneumonia. Electronically signed by: Fortino Dumont MD 03/20/2024 10:10 AM EST RP Cervical Spine CT 03/21/24 11:18 IMPRESSION: 1. Allowing for suboptimal positioning, there is no CT evidence of acute cervical spine fracture or injury. 2. Degenerative changes with bulky ventral osteophytes spanning C4-C6, appearance in keeping with DISH. Electronically signed by: Fortino Dumont MD 03/21/2024 12:01 PM EST RP Head CT 03/21/24 11:18 IMPRESSION: 1. No acute intracranial abnormality. No acute fractures seen. 2. Stable chronic findings as discussed. Electronically signed by: Fortino Dumont MD 03/21/2024 11:54 AM EST RP Pelvis CT 03/21/24 11:18 IMPRESSION: 1. No acute bony abnormalities. No fractures. 2. Constipation with a large amount of stool in the rectum and sigmoid colon. 3. Mild thickening of the urinary bladder wall despite underdistention, nonspecific. Differential includes the detrusor hypertrophy, neurogenic bladder, or possibly cystitis. Electronically signed by: Fortino Dumont MD 03/21/2024 12:09 PM EST RP Head CT 03/28/24 09:37 IMPRESSION: No acute fracture, bony calvarium. No acute intracranial hemorrhage. Small vessel occlusive disease. Bifrontal bitemporal lobe atrophy. Electronically signed by: Juan Corrigan MD 03/28/2024 10:19 AM EST RP Medications Medications Current Medications Acetaminophen (Acetaminophen 325 Mg Tablet) 650 mg PO Q6H PRN PRN Reason: Headache/Pain Mild Scale (1-3) Last Admin: 01/17/24 23:53 Dose: 325 mg Al Hydroxide/Mg Hydroxide (Magnesium Hydrox/Alum Hydrox 30 Ml Oral.Susp) 30 ml PO Q6H PRN PRN Reason: Heartburn/Nausea Amlodipine Besylate (Amlodipine Besylate 10 Mg Tablet) 10 mg PO DAILY [facility]; Protocol Last Admin: 04/01/24 08:43 Dose: Not Given Aspirin (Aspirin 81 Mg Tab.Chew) 81 mg PO DAILY [facility] Last Admin: 04/01/24 08:43 Dose: Not Given Atorvastatin Calcium (Atorvastatin Calcium 40 Mg Tablet) 40 mg PO DAILY [facility] Last Admin: 04/01/24 08:43 Dose: Not Given Carbamazepine (Carbamazepine 200 Mg Tablet) 200 mg PO BID [facility] Last Admin: 04/01/24 08:43 Dose: Not Given Clonidine (Clonidine 0.2 Mg Patch.Tdwk) 0.2 mg TRANSDERMA Fr@0900 [facility]; Protocol Last Admin: 03/30/24 09:09 Dose: Not Given Ferrous Sulfate (Ferrous Sulfate 324 Mg Tablet.Dr) 324 mg PO BID [facility] Last Admin: 04/01/24 08:43 Dose: Not Given Haloperidol Lactate (Haloperidol Lactate Oral Conc 10 Mg/5 Ml Oral.Conc) 5 mg PO Q6H PRN PRN Reason: Psychosis or severe agitation Last Admin: 03/31/24 06:02 Dose: 5 mg Haloperidol Lactate (Haloperidol Lactate Oral Conc 10 Mg/5 Ml Oral.Conc) 7.5 mg PO BID [facility] Last Admin: 04/01/24 08:41 Dose: 7.5 mg Haloperidol Lactate (Haloperidol Lactate 5 Mg/Ml Vial) 7.5 mg IM BID PRN PRN Reason: Refusal of Court PO Haldol Last Admin: 03/31/24 09:27 Dose: 7.5 mg Lorazepam (Lorazepam 1 Mg Tablet) 2 mg PO Q6H PRN PRN Reason: agitation Last Admin: 04/01/24 08:42 Dose: 2 mg Magnesium Hydroxide (Milk Of Magnesia 30 Ml Oral.Susp) 30 ml PO DAILY PRN PRN Reason: Constipation Nicotine Polacrilex (Nicotine Polacrilex 2 Mg Gum) 2 mg BUCCAL Q2H PRN PRN Reason: Nicotine Cravings Trazodone HCl (Trazodone Hcl 50 Mg Tablet) 50 mg PO BEDTIME MRX1 PRN PRN Reason: Insomnia Last Admin: 03/29/24 22:47 Dose: 50 mg Valproic Acid (Valproic Acid Liquid 250 Mg/5 Ml Solution) 750 mg PO BID [facility] Last Admin: 04/01/24 08:42 Dose: 750 mg Vitamin D (Cholecalciferol (Vitamin D3) 25 Mcg Tablet) 50 mcg PO DAILY [facility] Last Admin: 04/01/24 08:43 Dose: Not Given Allergies Allergies Allergy/AdvReac Type Severity Reaction Status Date / Time lithium Allergy Unknown Verified 01/13/24 18:08 Assessment & Plan Assessment & Plan (1) Schizoaffective disorder, bipolar type: Status: Acute Code(s): F25.0 - Schizoaffective disorder, bipolar type (2) Hypertension: Status: Acute Code(s): I10 - Essential (primary) hypertension (3) Diabetes mellitus: Status: Acute Code(s): E11.9 - Type 2 diabetes mellitus without complications Plan 03/23 keep same treatment 68 yo from a detention with chronic psychotic disorder, refusing medication , elevated bp and disorganized and agitated behavior requiring psychiatric hospitalization and treatment not competent to sign cv. 01/14 continue to follow - gave lambs warning today- and he says the magisterial district judge will be a she- still refusing medications and quite psychotic takes alot of redirection to settle him poor adls- 01/15- Refuses meds, refuses hospitalist consult-second day File for Section Seven consideration on 01/17. Provide care as he will allow. 01/16: Depakote 250 mg bid Haldol, Lorazepam, Benadryl prn Section 7 to be filed 01/17 Message left for guardian. 01/17: Section Seven filed. . Court scheduled 01/26/24 Pt continues to refuse medicaitons. He is in need of full assist with ADL's and is incontinent. Pt transferred to [facility] this afternoon. 01/19/2024 Patient pending civil commitment loud agitated would not engage in any conversation with this service writer advisor non informational healing agitated verbally aggressive. Every attempt being made to get a copy of the patient's Servin order unclear why this has been so problematic. Encourage food and fluids 01/19 continue same treatment 01/21/24 Patient labile agitated intrusive close labs ordered in order to per to protect the community patient wandering into patient's rooms intrusive impulsive laying on another person's bed. Often hostile agitated posturing at times we are still pending copy of reported Servin order encourage p.o. compliance 01/22/2024 Patient did require physical hold escort him out of a room that he jumped in other patient's room and on their bed while there were in it. There was no physical harm and the patient did leave the room his markedly impulsive with poor judgment remains on close observation has intermittently taken Haldol liquid pending civil commitment treatment plan there is a question of Servin order 01/22 The patient had been more agitated. We review his Servin order and we are increasing the Abilify up to 15 mg p.o. daily and adding Haldol p.r.n. since it is in his role years order. We needed to give him some p.r.n. at 14:00. 01/23 The patient is grossly psychotic disrobing and sexually disinhibited we are starting Haldol 2 mg p.o. t.i.d. to target psychosis as per court order treatment over objection order. 01/24 The patient remains very agitated and angry disruptive so we are increasing the Haldol from 2 mg to 5 mg p.o. t.i.d. with a backup IM if the patient refused as per court order. 01/25 we have increased the Haldol but still he is very psychotic and restless. Today he refused his blood work. He needed to be physically held twice. 01/26 the patient remains agitated at times but his last IM backup was yesterday. We are going to increase Abilify up to 20 mg daily to target mood lability and psychosis. 01/29/2024: Increase frequency of prn doses from tid to prn q 6mrs. Poor insight and unable to care for self 02/08 pt has not take any of mood stabilizer. continues to have poor sleep, intrusive and combative requiring IM medications, increase haldol 10mg po TID, back up IM. Will add ativan 1mg po TID, also back up IM. Labs show elevated CK 2300, BUN 20, Cr 1.80, unclear baseline Cr as he does have CKD. Discussed with hospitalist Dr. Gama, to give IV fluids and monitor labs tomorrow. LFTs also elevated suspect this is secondary to elevation in CK and should trend down as CK goes down. 02/09 still agitated, creatinine and CPK slightly high as yesterday, he removed his IV line there is no big difference with IV hydration. We are changing his community role years to have more options since it is not working Abilify and Haldol 02/10 3 chemical restraints yesterday. appears more combative, and somewhat more confused. Will decrease amount of benzo and antihistamine given to him as it seems to be backfiring. did discuss with ICU attending, Dr. Whiteside possibility of transferring there but they would like us to try IV depakote and exhaust all resources prior to considering transfer. Pt did take depakote springkle 1000mg with apple sauce with much encourage. 02/11 continue tx. 02/12 continue same treatment 01/14 continue with Abilify and other court order medications, we are Namenda and the court order. 02/14 Team report improvement today with pt having greater comfort and less agitation. [id number] the staff reported that the patient had been less violent in the last 24 hours 02/16 continue tx. will check depakote and ammonia on 02/17 in AM. 02/17 continue regime and plan of care 02/26/2024: Continue current regimen as per court order 03/03 continue tx. lactulose for now as we don't have new ammonia level, but will try to chack labs. 03/16- continue medications, held clonidine patch for today due to low BP. repeat labs. 03/17-continue plan of care 03/18- continue tx 03/19 continue same treatment 03/20 waiting for CBC, basic metabolic panel and ammonia level. Today he nearly choked with a grape. We are going to change his diet to chopped 03/21 patient had a fall and he was assessed. No injuries as per CT scan of head and pelvis. Again he refused again his blood work vital signs within normal limits. 03/22 keep same treatment 03/23 keep same treatment 03 24 24 Continue plan of care Depakote Tegretol Haldol carbamazepine 03/25/2024 Repeat swallowing study ordered he is already on ground diet consider lowering Haldol versus Cogentin generally try to avoid older man 03/26 lowered Haldol to 7.5 p.o. b.i.d. 03/27 start Abilify Maintena 400 IM, later on we stopped it since he was over-sedated. 03/28 monitor vital signs and we will order blood work for tomorrow morning. 03/29 keep same treatment. We are deferring Abilify Maintena since the patient is still sedated and looks slightly delirious. He has refused blood work 03/31 continue current tx. less combative but no improvement in mentation. grossly disorganized and non sensical. 04/01: court ordered meds- team reviewing and optimizing same. Reason for continued inpatient stay Substantial Risk for: harm to others and inability to function Time Spent With Patient Time: Total time managing care of this patient today ____ minutes.
[2024-04-01] MEDS: Haloperidol Lactate 5 MG/ML VIAL IM (11:38)
[2024-04-01] MEDS: LORazepam 2 MG/ML VIAL IM (11:38)
--- NOTE | 2024-04-01 11:55 | HO.BHRESTREX ---
Behavioral Restraint Exam Behavioral Health Restraint Exam Type of Restraint: Physical Hold and Medication Reason for Restraint: Substantial Risk of Harm to Others Medical Concerns for Restraint: No medical concerns, pt w/o acute inj / no noted resp/VS abnormalities Behavioral Assessment / Plan: No further behavioral concerns, continue current plan. Comment: Pt was unresponsive to redirection trying to go into peoples room, became physically agg with staff when they needed to physically redirect him out of room , went to floor throwing his arms and legs- requiring code assist from security- who got him up into wheelchair once placed in bed held for 1 minute to be given hadlol 5mg, ativan 2mg ordered by dr Thomas Seen by me 11:45 am lying in bed quietly regular respirations in NAD
--- NOTE | 2024-04-01 15:33 | PC.NURSE ---
At 14:55 Pt. restless in room, attempting to unsafely manage clothing and resistng assistance to keep him safe from PSA. He grabbed the bathroom door handle, causing the door to swing out, and he staggerd backward and fell to his buttocks. He got up on his own and refused VS and any further assmt. He denied pain to his buttocks. MD Christiano Thomas updated and ordered locked bathroom when not in use. Guardian Jessica Zhao updated by telephone.
[2024-04-01] MEDS: traZODone HCL 50 MG TABLET PO ×2 (21:39→22:32)
[2024-04-01] MEDS: carBAMazepine 200 MG TABLET PO (21:39)
[2024-04-02] MEDS: LORazepam 1 MG TABLET 2 MG PO ×3 (03:23→23:56)
[2024-04-02 08:00] VITALS: BP 138/82; PULSE 72; RESP 16; TEMP 36.3; O2SAT 99
[2024-04-02] MEDS: carBAMazepine 200 MG TABLET PO ×2 (08:51→21:51)
[2024-04-02] MEDS: Haloperidol Lactate Oral Conc 10 MG/5 ML ORAL.CONC 7.5 MG PO ×2 (08:52→21:52)
[2024-04-02] MEDS: Valproic Acid Liquid 250 MG/5 ML SOLUTION 750 MG PO ×2 (08:52→21:51)
--- NOTE | 2024-04-02 10:11 | MHC.SLORD ---
Speech Language Pathology Order Status: RN consulted, pt unavailable for dysphagia tx this morning as pt is dysregulated. No concerns with PO tolerance reported, LINEMAN APPRENTICE continues to follow.
--- NOTE | 2024-04-02 11:58 | HO.PSYCHPN ---
Subjective Subjective Date of Service: 04/02/24 Reason For Visit: Schizoaffective disorder Subjective Notes: Conditional Voluntary Interim History: Pt slept through the night. When asked if he knows where he is, he states [place]. Not oriented to situation. Attention mildly improved. continues with impulsive, purposeless behaviors. taking medication with much encouragement. was able to tell that his sister had come to see him. Medication Compliance: Yes Review of Systems Review of Systems currently one one to one Yes Unobtainable due to mental status Mental Status Exam Mental Status Exam Narrative: Appearance: hospital gown, fair hygiene, wheelchair Behavior: minimally engaging but frustrated at redirection from another room Psychomotor: no noted tremors. Speech: mumbles, spontaneous TP: derailed/disorganized TC: nothing of note Mood: did not report Affect: intense eye contact SI: none HI: none VH/AH: denied Delusions: paranoid I dont trust you . Insight/judgment: impaired Memory/cog: alert, not oriented to place, month, nor year nor situation. Diagnostics Vital Signs (24Hr): Vital Signs - 24 hr 04/02/24 08:00 Temperature 97.4 F Pulse Rate 72 Respiratory Rate 16 Blood Pressure 138/82 Pulse Oximetry 99 Oxygen Delivery Method Room Air BMI result Body Mass Index 25.1 Labs 03/30/24 08:49 03/30/24 08:49 Imaging Radiology Impressions: ITS Impressions Chest X-Ray 03/20/24 08:33 IMPRESSION: Extremely limited exam. Only lateral views could be obtained. Suspect basilar airspace opacity, possibly pneumonia. Electronically signed by: Fortino Dumont MD 03/20/2024 10:10 AM EST RP Cervical Spine CT 03/21/24 11:18 IMPRESSION: 1. Allowing for suboptimal positioning, there is no CT evidence of acute cervical spine fracture or injury. 2. Degenerative changes with bulky ventral osteophytes spanning C4-C6, appearance in keeping with DISH. Electronically signed by: Fortino Dumont MD 03/21/2024 12:01 PM Flo Water RP Head CT 03/21/24 11:18 IMPRESSION: 1. No acute intracranial abnormality. No acute fractures seen. 2. Stable chronic findings as discussed. Electronically signed by: Fortino Dumont MD 03/21/2024 11:54 AM EST RP Pelvis CT 03/21/24 11:18 IMPRESSION: 1. No acute bony abnormalities. No fractures. 2. Constipation with a large amount of stool in the rectum and sigmoid colon. 3. Mild thickening of the urinary bladder wall despite underdistention, nonspecific. Differential includes the detrusor hypertrophy, neurogenic bladder, or possibly cystitis. Electronically signed by: Fortino Dumont MD 03/21/2024 12:09 PM EST RP Head CT 03/28/24 09:37 IMPRESSION: No acute fracture, bony calvarium. No acute intracranial hemorrhage. Small vessel occlusive disease. Bifrontal bitemporal lobe atrophy. Electronically signed by: Juan Corrigan MD 03/28/2024 10:19 AM EST RP Medications Medications Current Medications Acetaminophen (Acetaminophen 325 Mg Tablet) 650 mg PO Q6H PRN PRN Reason: Headache/Pain Mild Scale (1-3) Last Admin: 01/17/24 23:53 Dose: 325 mg Al Hydroxide/Mg Hydroxide (Magnesium Hydrox/Alum Hydrox 30 Ml Oral.Susp) 30 ml PO Q6H PRN PRN Reason: Heartburn/Nausea Amlodipine Besylate (Amlodipine Besylate 10 Mg Tablet) 10 mg PO DAILY [facility]; Protocol Last Admin: 04/02/24 08:59 Dose: Not Given Aspirin (Aspirin 81 Mg Tab.Chew) 81 mg PO DAILY [facility] Last Admin: 04/02/24 08:59 Dose: Not Given Atorvastatin Calcium (Atorvastatin Calcium 40 Mg Tablet) 40 mg PO DAILY [facility] Last Admin: 04/02/24 08:59 Dose: Not Given Carbamazepine (Carbamazepine 200 Mg Tablet) 200 mg PO BID [facility] Last Admin: 04/02/24 08:51 Dose: 200 mg Clonidine (Clonidine 0.2 Mg Patch.Tdwk) 0.2 mg TRANSDERMA Fr@0900 [facility]; Protocol Last Admin: 03/30/24 09:09 Dose: Not Given Ferrous Sulfate (Ferrous Sulfate 324 Mg Tablet.Dr) 324 mg PO BID [facility] Last Admin: 04/02/24 08:59 Dose: Not Given Haloperidol Lactate (Haloperidol Lactate Oral Conc 10 Mg/5 Ml Oral.Conc) 5 mg PO Q6H PRN PRN Reason: Psychosis or severe agitation Last Admin: 03/31/24 06:02 Dose: 5 mg Haloperidol Lactate (Haloperidol Lactate Oral Conc 10 Mg/5 Ml Oral.Conc) 7.5 mg PO BID [facility] Last Admin: 04/02/24 08:52 Dose: 7.5 mg Haloperidol Lactate (Haloperidol Lactate 5 Mg/Ml Vial) 7.5 mg IM BID PRN PRN Reason: Refusal of Court PO Haldol Last Admin: 03/31/24 09:27 Dose: 7.5 mg Lorazepam (Lorazepam 1 Mg Tablet) 2 mg PO Q6H PRN PRN Reason: agitation Last Admin: 04/02/24 08:51 Dose: 2 mg Magnesium Hydroxide (Milk Of Magnesia 30 Ml Oral.Susp) 30 ml PO DAILY PRN PRN Reason: Constipation Nicotine Polacrilex (Nicotine Polacrilex 2 Mg Gum) 2 mg BUCCAL Q2H PRN PRN Reason: Nicotine Cravings Trazodone HCl (Trazodone Hcl 50 Mg Tablet) 50 mg PO BEDTIME MRX1 PRN PRN Reason: Insomnia Last Admin: 04/01/24 22:32 Dose: 50 mg Valproic Acid (Valproic Acid Liquid 250 Mg/5 Ml Solution) 750 mg PO BID [facility] Last Admin: 04/02/24 08:52 Dose: 750 mg Vitamin D (Cholecalciferol (Vitamin D3) 25 Mcg Tablet) 50 mcg PO DAILY [facility] Last Admin: 04/02/24 08:59 Dose: Not Given Allergies Allergies Allergy/AdvReac Type Severity Reaction Status Date / Time lithium Allergy Unknown Verified 01/13/24 18:08 Assessment & Plan Assessment & Plan (1) Schizoaffective disorder, bipolar type: Status: Acute Code(s): F25.0 - Schizoaffective disorder, bipolar type (2) Hypertension: Status: Acute Code(s): I10 - Essential (primary) hypertension (3) Diabetes mellitus: Status: Acute Code(s): E11.9 - Type 2 diabetes mellitus without complications Plan 03/23 keep same treatment 68 yo from a [facility] with chronic psychotic disorder, refusing medication , elevated bp and disorganized and agitated behavior requiring psychiatric hospitalization and treatment not competent to sign cv. 01/14 continue to follow - gave lambs warning today- and he says the energy risk management analyst will be a she- still refusing medications and quite psychotic takes alot of redirection to settle him poor adls- 01/15- Refuses meds, refuses hospitalist consult-second day File for Section Seven consideration on 01/17. Provide care as he will allow. 01/16: Depakote 250 mg bid Haldol, Lorazepam, Benadryl prn Section 7 to be filed 01/17 Message left for guardian. 01/17: Section Seven filed. . Court scheduled 01/26/24 Pt continues to refuse medicaitons. He is in need of full assist with ADL's and is incontinent. Pt transferred to [facility] this afternoon. 01/19/2024 Patient pending civil commitment loud agitated would not engage in any conversation with this screenplay writer non informational healing agitated verbally aggressive. Every attempt being made to get a copy of the patient's Servin order unclear why this has been so problematic. Encourage food and fluids 01/19 continue same treatment 01/21/24 Patient labile agitated intrusive close labs ordered in order to per to protect the community patient wandering into patient's rooms intrusive impulsive laying on another person's bed. Often hostile agitated posturing at times we are still pending copy of reported Servin order encourage p.o. compliance 01/22/2024 Patient did require physical hold escort him out of a room that he jumped in other patient's room and on their bed while there were in it. There was no physical harm and the patient did leave the room his markedly impulsive with poor judgment remains on close observation has intermittently taken Haldol liquid pending civil commitment treatment plan there is a question of Servin order 01/22 The patient had been more agitated. We review his Servin order and we are increasing the Abilify up to 15 mg p.o. daily and adding Haldol p.r.n. since it is in his role years order. We needed to give him some p.r.n. at 14:00. 01/23 The patient is grossly psychotic disrobing and sexually disinhibited we are starting Haldol 2 mg p.o. t.i.d. to target psychosis as per court order treatment over objection order. 01/24 The patient remains very agitated and angry disruptive so we are increasing the Haldol from 2 mg to 5 mg p.o. t.i.d. with a backup IM if the patient refused as per court order. 01/25 we have increased the Haldol but still he is very psychotic and restless. Today he refused his blood work. He needed to be physically held twice. 01/26 the patient remains agitated at times but his last IM backup was yesterday. We are going to increase Abilify up to 20 mg daily to target mood lability and psychosis. 01/29/2024: Increase frequency of prn doses from tid to prn q 6mrs. Poor insight and unable to care for self 02/08 pt has not take any of mood stabilizer. continues to have poor sleep, intrusive and combative requiring IM medications, increase haldol 10mg po TID, back up IM. Will add ativan 1mg po TID, also back up IM. Labs show elevated CK 2300, BUN 20, Cr 1.80, unclear baseline Cr as he does have CKD. Discussed with hospitalist Dr. Gama, to give IV fluids and monitor labs tomorrow. LFTs also elevated suspect this is secondary to elevation in CK and should trend down as CK goes down. 02/09 still agitated, creatinine and CPK slightly high as yesterday, he removed his IV line there is no big difference with IV hydration. We are changing his community role years to have more options since it is not working Abilify and Haldol 02/10 3 chemical restraints yesterday. appears more combative, and somewhat more confused. Will decrease amount of benzo and antihistamine given to him as it seems to be backfiring. did discuss with ICU attending, Dr. Whiteside possibility of transferring there but they would like us to try IV depakote and exhaust all resources prior to considering transfer. Pt did take depakote springkle 1000mg with apple sauce with much encourage. 02/11 continue tx. 02/12 continue same treatment 01/14 continue with Abilify and other court order medications, we are Namenda and the court order. 02/14 Team report improvement today with pt having greater comfort and less agitation. [id number] the staff reported that the patient had been less violent in the last 24 hours 02/16 continue tx. will check depakote and ammonia on 02/17 in AM. 02/17 continue regime and plan of care 02/26/2024: Continue current regimen as per court order 03/03 continue tx. lactulose for now as we don't have new ammonia level, but will try to chack labs. 03/16- continue medications, held clonidine patch for today due to low BP. repeat labs. 03/17-continue plan of care 03/18- continue tx 03/19 continue same treatment 03/20 waiting for CBC, basic metabolic panel and ammonia level. Today he nearly choked with a grape. We are going to change his diet to chopped 03/21 patient had a fall and he was assessed. No injuries as per CT scan of head and pelvis. Again he refused again his blood work vital signs within normal limits. 03/22 keep same treatment 03/23 keep same treatment 03 24 24 Continue plan of care Depakote Tegretol Haldol carbamazepine 03/25/2024 Repeat swallowing study ordered he is already on ground diet consider lowering Haldol versus Cogentin generally try to avoid older man 03/26 lowered Haldol to 7.5 p.o. b.i.d. 03/27 start Abilify Maintena 400 IM, later on we stopped it since he was over-sedated. 03/28 monitor vital signs and we will order blood work for tomorrow morning. 03/29 keep same treatment. We are deferring Abilify Maintena since the patient is still sedated and looks slightly delirious. He has refused blood work 03/31 continue current tx. less combative but no improvement in mentation. grossly disorganized and non sensical. 04/01: court ordered meds- team reviewing and optimizing same. 04/02 continue tx. Reason for continued inpatient stay Substantial Risk for: inability to function Time Spent With Patient Time: Total time managing care of this patient today ____ minutes.
[2024-04-02] MEDS: Haloperidol Lactate Oral Conc 10 MG/5 ML ORAL.CONC 5 MG PO (13:51)
[2024-04-02 21:50] VITALS: BP 145/78; PULSE 77; RESP 20; TEMP 37.1; O2SAT 99
[2024-04-02] MEDS: Ferrous Sulfate 324 MG TABLET.DR PO (21:50)
[2024-04-02] MEDS: traZODone HCL 50 MG TABLET PO (23:56)
[2024-04-03 08:00] VITALS: RESP 18; TEMP 36.8
[2024-04-03] MEDS: Valproic Acid Liquid 250 MG/5 ML SOLUTION 750 MG PO ×2 (08:28→19:32)
[2024-04-03] MEDS: Haloperidol Lactate Oral Conc 10 MG/5 ML ORAL.CONC 7.5 MG PO ×2 (08:29→19:32)
[2024-04-03] MEDS: carBAMazepine 200 MG TABLET PO ×2 (08:29→19:32)
[2024-04-03] MEDS: Aspirin 81 MG TAB.CHEW PO (08:29)
--- NOTE | 2024-04-03 11:24 | P.PNPSI_ITS ---
Subjective Subjective Date of Service: 04/03/24 Reason For Visit: Schizoaffective disorder Subjective Notes: Section 7 and Section 8 Interim History: The nursing staff reported the patient needed p.r.n. p.o. Haldol so far no restraints in the last days. He looks better but still with nonsensical speech slept 4 hours. On interview the patient looks internally preoccupied. Mental Status Exam Mental Status Exam Patient Appearance: Unkempt Patient Orientation: Person Level of Consciousness: Awake and Appropriate Patient Behavior: Guarded and Passive Mood Description: Withdrawn Affect Description: Constricted Patient Cognition Impaired: Yes Ability to Follow Directions: Good Speech Pattern: Impoverished Hallucinations: None Delusions: Paranoid Ideation and Ideas of Reference Thought Process: Distracted and Slowed Thinking Thought Content: positive for [place] and positive for Poverty of Content Judgement: Poor Diagnostics Vital Signs (24Hr): Vital Signs - 24 hr 04/02/24 21:50 04/03/24 08:00 Temperature 98.7 F 98.2 F Pulse Rate 77 Respiratory Rate 20 18 Blood Pressure 145/78 H Pulse Oximetry 99 Oxygen Delivery Method Room Air BMI result Body Mass Index 25.1 Labs 03/30/24 08:49 03/30/24 08:49 Labs: Laboratory Results - last 48 hr 03/30/24 08:49 WBC 3.3 L RBC 3.72 L Hgb 11.0 L Hct 33.1 L MCV 89.0 MCH 29.6 MCHC 33.2 RDW 15.7 Plt Count 88 L D MPV 11.6 Immature Gran % (Auto) 0.3 Neut % (Auto) 29.4 L Lymph % (Auto) 60.7 H Eddy % (Auto) 8.1 Eos % (Auto) 1.2 Baso % (Auto) 0.3 Lymph # (Auto) 2.0 Eddy # (Auto) 0.3 Eos # (Auto) 0.0 Baso # (Auto) 0.0 Abs Immat Gran (auto) 0.01 Absolute Neuts (auto) 1.0 L Absolute Nucleated RBC 0.000 Nucleated RBC % (auto) 0.0 Smear Tech's Comments VERIFIED Sodium 137 Potassium 4.9 Chloride 106 Carbon Dioxide 23 Anion Gap 13 BUN 17 H Creatinine 1.28 Estim Creat Clear Calc 57.1 Estimated GFR 56 Fasting Glucose 130 H Calcium 9.3 Total Bilirubin 0.3 AST 22 ALT 11 Alkaline Phosphatase 123 H Total Protein 6.9 Albumin 3.8 Imaging Radiology Impressions: ITS Impressions Chest X-Ray 03/20/24 08:33 IMPRESSION: Extremely limited exam. Only lateral views could be obtained. Suspect basilar airspace opacity, possibly pneumonia. Electronically signed by: Fortino Dumont MD 03/20/2024 10:10 AM EST RP Cervical Spine CT 03/21/24 11:18 IMPRESSION: 1. Allowing for suboptimal positioning, there is no CT evidence of acute cervical spine fracture or injury. 2. Degenerative changes with bulky ventral osteophytes spanning C4-C6, appearance in keeping with DISH. Electronically signed by: Fortino Dumont MD 03/21/2024 12:01 PM EST RP Head CT 03/21/24 11:18 IMPRESSION: 1. No acute intracranial abnormality. No acute fractures seen. 2. Stable chronic findings as discussed. Electronically signed by: Fortino Dumont MD 03/21/2024 11:54 AM EST RP Pelvis CT 03/21/24 11:18 IMPRESSION: 1. No acute bony abnormalities. No fractures. 2. Constipation with a large amount of stool in the rectum and sigmoid colon. 3. Mild thickening of the urinary bladder wall despite underdistention, nonspecific. Differential includes the detrusor hypertrophy, neurogenic bladder, or possibly cystitis. Electronically signed by: Fortino Dumont MD 03/21/2024 12:09 PM EST RP Head CT 03/28/24 09:37 IMPRESSION: No acute fracture, bony calvarium. No acute intracranial hemorrhage. Small vessel occlusive disease. Bifrontal bitemporal lobe atrophy. Electronically signed by: Juan Corrigan MD 03/28/2024 10:19 AM EST RP Medications Medications Current Medications Acetaminophen (Acetaminophen 325 Mg Tablet) 650 mg PO Q6H PRN PRN Reason: Headache/Pain Mild Scale (1-3) Last Admin: 01/17/24 23:53 Dose: 325 mg Al Hydroxide/Mg Hydroxide (Magnesium Hydrox/Alum Hydrox 30 Ml Oral.Susp) 30 ml PO Q6H PRN PRN Reason: Heartburn/Nausea Amlodipine Besylate (Amlodipine Besylate 10 Mg Tablet) 10 mg PO DAILY [facility]; Protocol Last Admin: 04/03/24 08:33 Dose: Not Given Aspirin (Aspirin 81 Mg Tab.Chew) 81 mg PO DAILY [facility] Last Admin: 04/03/24 08:29 Dose: 81 mg Atorvastatin Calcium (Atorvastatin Calcium 40 Mg Tablet) 40 mg PO DAILY [facility] Last Admin: 04/03/24 08:34 Dose: Not Given Carbamazepine (Carbamazepine 200 Mg Tablet) 200 mg PO BID [facility] Last Admin: 04/03/24 08:29 Dose: 200 mg Clonidine (Clonidine 0.2 Mg Patch.Tdwk) 0.2 mg TRANSDERMA Fr@0900 [facility]; Protocol Last Admin: 03/30/24 09:09 Dose: Not Given Ferrous Sulfate (Ferrous Sulfate 324 Mg Tablet.Dr) 324 mg PO BID [facility] Last Admin: 04/03/24 08:34 Dose: Not Given Haloperidol Lactate (Haloperidol Lactate Oral Conc 10 Mg/5 Ml Oral.Conc) 5 mg PO Q6H PRN PRN Reason: Psychosis or severe agitation Last Admin: 04/02/24 13:51 Dose: 5 mg Haloperidol Lactate (Haloperidol Lactate Oral Conc 10 Mg/5 Ml Oral.Conc) 7.5 mg PO BID [facility] Last Admin: 04/03/24 08:29 Dose: 7.5 mg Haloperidol Lactate (Haloperidol Lactate 5 Mg/Ml Vial) 7.5 mg IM BID PRN PRN Reason: Refusal of Court PO Haldol Last Admin: 03/31/24 09:27 Dose: 7.5 mg Lorazepam (Lorazepam 1 Mg Tablet) 2 mg PO Q6H PRN PRN Reason: agitation Last Admin: 04/02/24 23:56 Dose: 2 mg Magnesium Hydroxide (Milk Of Magnesia 30 Ml Oral.Susp) 30 ml PO DAILY PRN PRN Reason: Constipation Nicotine Polacrilex (Nicotine Polacrilex 2 Mg Gum) 2 mg BUCCAL Q2H PRN PRN Reason: Nicotine Cravings Trazodone HCl (Trazodone Hcl 50 Mg Tablet) 50 mg PO BEDTIME MRX1 PRN PRN Reason: Insomnia Last Admin: 04/02/24 23:56 Dose: 50 mg Valproic Acid (Valproic Acid Liquid 250 Mg/5 Ml Solution) 750 mg PO BID [facility] Last Admin: 04/03/24 08:28 Dose: 750 mg Vitamin D (Cholecalciferol (Vitamin D3) 25 Mcg Tablet) 50 mcg PO DAILY [facility] Last Admin: 04/03/24 08:34 Dose: Not Given Allergies Allergies Allergy/AdvReac Type Severity Reaction Status Date / Time lithium Allergy Unknown Verified 01/13/24 18:08 Assessment & Plan Assessment & Plan (1) Schizoaffective disorder, bipolar type: Status: Acute Code(s): F25.0 - Schizoaffective disorder, bipolar type (2) Hypertension: Status: Acute Code(s): I10 - Essential (primary) hypertension (3) Diabetes mellitus: Status: Acute Code(s): E11.9 - Type 2 diabetes mellitus without complications Plan 03/23 keep same treatment 68 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 01/14 continue to follow - gave lambs warning today- and he says the robotics application engineer will be a she- still refusing medications and quite psychotic takes alot of redirection to settle him poor adls- 01/15- Refuses meds, refuses hospitalist consult-second day File for Section Seven consideration on 01/17. Provide care as he will allow. 01/16: Depakote 250 mg bid Haldol, Lorazepam, Benadryl prn Section 7 to be filed 01/17 Message left for guardian. 01/17: Section Seven filed. . Court scheduled 01/26/24 Pt continues to refuse medicaitons. He is in need of full assist with ADL's and is incontinent. Pt transferred to [facility] this afternoon. 01/19/2024 Patient pending civil commitment loud agitated would not engage in any conversation with this ad copy writer non informational healing agitated verbally aggressive. Every attempt being made to get a copy of the patient's Servin order unclear why this has been so problematic. Encourage food and fluids 01/19 continue same treatment 01/21/24 Patient labile agitated intrusive close labs ordered in order to per to protect the community patient wandering into patient's rooms intrusive impulsive laying on another person's bed. Often hostile agitated posturing at times we are still pending copy of reported Servin order encourage p.o. compliance 01/22/2024 Patient did require physical hold escort him out of a room that he jumped in other patient's room and on their bed while there were in it. There was no physical harm and the patient did leave the room his markedly impulsive with poor judgment remains on close observation has intermittently taken Haldol liquid pending civil commitment treatment plan there is a question of Servin order 01/22 The patient had been more agitated. We review his Servin order and we are increasing the Abilify up to 15 mg p.o. daily and adding Haldol p.r.n. since it is in his role years order. We needed to give him some p.r.n. at 14:00. 01/23 The patient is grossly psychotic disrobing and sexually disinhibited we are starting Haldol 2 mg p.o. t.i.d. to target psychosis as per court order treatment over objection order. 01/24 The patient remains very agitated and angry disruptive so we are increasing the Haldol from 2 mg to 5 mg p.o. t.i.d. with a backup IM if the patient refused as per court order. 01/25 we have increased the Haldol but still he is very psychotic and restless. Today he refused his blood work. He needed to be physically held twice. 01/26 the patient remains agitated at times but his last IM backup was yesterday. We are going to increase Abilify up to 20 mg daily to target mood lability and psychosis. 01/29/2024: Increase frequency of prn doses from tid to prn q 6mrs. Poor insight and unable to care for self 02/08 pt has not take any of mood stabilizer. continues to have poor sleep, intrusive and combative requiring IM medications, increase haldol 10mg po TID, back up IM. Will add ativan 1mg po TID, also back up IM. Labs show elevated CK 2300, BUN 20, Cr 1.80, unclear baseline Cr as he does have CKD. Discussed with hospitalist Dr. Gama, to give IV fluids and monitor labs tomorrow. LFTs also elevated suspect this is secondary to elevation in CK and should trend down as CK goes down. 02/09 still agitated, creatinine and CPK slightly high as yesterday, he removed his IV line there is no big difference with IV hydration. We are changing his community role years to have more options since it is not working Abilify and Haldol 02/10 3 chemical restraints yesterday. appears more combative, and somewhat more confused. Will decrease amount of benzo and antihistamine given to him as it seems to be backfiring. did discuss with ICU attending, Dr. Whiteside possibility of transferring there but they would like us to try IV depakote and exhaust all resources prior to considering transfer. Pt did take depakote springkle 1000mg with apple sauce with much encourage. 02/11 continue tx. 02/12 continue same treatment 01/14 continue with Abilify and other court order medications, we are Namenda and the court order. 02/14 Team report improvement today with pt having greater comfort and less agitation. [id number] the staff reported that the patient had been less violent in the last 24 hours 02/16 continue tx. will check depakote and ammonia on 02/17 in AM. 02/17 continue regime and plan of care 02/26/2024: Continue current regimen as per court order 03/03 continue tx. lactulose for now as we don't have new ammonia level, but will try to chack labs. 03/16- continue medications, held clonidine patch for today due to low BP. repeat labs. 03/17-continue plan of care 03/18- continue tx 03/19 continue same treatment 03/20 waiting for CBC, basic metabolic panel and ammonia level. Today he nearly choked with a grape. We are going to change his diet to chopped 03/21 patient had a fall and he was assessed. No injuries as per CT scan of head and pelvis. Again he refused again his blood work vital signs within normal limits. 03/22 keep same treatment 03/23 keep same treatment 03 24 24 Continue plan of care Depakote Tegretol Haldol carbamazepine 03/25/2024 Repeat swallowing study ordered he is already on ground diet consider lowering Haldol versus Cogentin generally try to avoid older man 03/26 lowered Haldol to 7.5 p.o. b.i.d. 03/27 start Abilify Maintena 400 IM, later on we stopped it since he was over- sedated. 03/28 monitor vital signs and we will order blood work for tomorrow morning. 03/29 keep same treatment. We are deferring Abilify Maintena since the patient is still sedated and looks slightly delirious. He has refused blood work 03/31 continue current tx. less combative but no improvement in mentation. grossly disorganized and non sensical. 04/01: court ordered meds- team reviewing and optimizing same. 04/02 continue tx. 04/03 keep same treatment, so far he had been more compliant with some of the medications in the last 3 days. Reason for continued inpatient stay Substantial Risk for: inability to function, rapid decompensation and med/psych decompensation Time Spent With Patient Time: Total time managing care of this patient today ____ minutes.
[2024-04-03] MEDS: LORazepam 1 MG TABLET 2 MG PO ×2 (13:06→19:33)
[2024-04-03] MEDS: Haloperidol Lactate Oral Conc 10 MG/5 ML ORAL.CONC 5 MG PO (13:06)
[2024-04-03] MEDS: Ferrous Sulfate 324 MG TABLET.DR PO (19:32)
[2024-04-03 21:23] VITALS: BP 121/82; PULSE 70; RESP 19; TEMP 36.8; O2SAT 100
[2024-04-04 08:00] VITALS: BP 122/77; PULSE 74; RESP 18; TEMP 36.8; O2SAT 99
[2024-04-04] MEDS: Valproic Acid Liquid 250 MG/5 ML SOLUTION 750 MG PO ×2 (08:29→21:55)
[2024-04-04] MEDS: Atorvastatin Calcium 40 MG TABLET PO (08:30)
[2024-04-04] MEDS: amLODIPine Besylate 10 MG TABLET PO (08:30)
[2024-04-04] MEDS: carBAMazepine 200 MG TABLET PO ×2 (08:30→21:54)
[2024-04-04] MEDS: Aspirin 81 MG TAB.CHEW PO (08:30)
[2024-04-04] MEDS: Haloperidol Lactate Oral Conc 10 MG/5 ML ORAL.CONC 7.5 MG PO ×2 (08:31→21:54)
--- NOTE | 2024-04-04 13:23 | P.PNPSI_ITS ---
Subjective Subjective Date of Service: 04/04/24 Reason For Visit: Schizoaffective disorder Subjective Notes: Section 7 and Section 8 Interim History: The nursing staff reported the patient had been out more awake eating his meals he got p.r.n. Ativan and Haldol and slept 7 hours. Mental Status Exam Mental Status Exam Patient Appearance: Appropriate Patient Orientation: Person and Situation Level of Consciousness: Awake and Appropriate Patient Behavior: Guarded and Passive Mood Description: Withdrawn Affect Description: Constricted Patient Cognition Impaired: Yes Ability to Follow Directions: Good Speech Pattern: Clear Hallucinations: None Delusions: Paranoid Ideation Thought Process: Distracted and Slowed Thinking Thought Content: positive for Dawson and positive for Poverty of Content Judgement: Fair Diagnostics Vital Signs (24Hr): Vital Signs - 24 hr 04/03/24 21:23 04/04/24 08:00 Temperature 98.2 F 98.2 F Pulse Rate 70 74 Respiratory Rate 19 18 Blood Pressure 121/82 122/77 Pulse Oximetry 100 99 Oxygen Delivery Method Room Air Room Air BMI result Body Mass Index 25.1 Labs 03/30/24 08:49 03/30/24 08:49 Labs: Laboratory Results - last 48 hr 03/30/24 08:49 WBC 3.3 L RBC 3.72 L Hgb 11.0 L Hct 33.1 L MCV 89.0 MCH 29.6 MCHC 33.2 RDW 15.7 Plt Count 88 L D MPV 11.6 Immature Gran % (Auto) 0.3 Neut % (Auto) 29.4 L Lymph % (Auto) 60.7 H [place] % (Auto) 8.1 Eos % (Auto) 1.2 Baso % (Auto) 0.3 Lymph # (Auto) 2.0 [place] # (Auto) 0.3 Eos # (Auto) 0.0 Baso # (Auto) 0.0 Abs Immat Gran (auto) 0.01 Absolute Neuts (auto) 1.0 L Absolute Nucleated RBC 0.000 Nucleated RBC % (auto) 0.0 Smear Tech's Comments VERIFIED Imaging Radiology Impressions: ITS Impressions Chest X-Ray 03/20/24 08:33 IMPRESSION: Extremely limited exam. Only lateral views could be obtained. Suspect basilar airspace opacity, possibly pneumonia. Electronically signed by: Fortino Dumont MD 03/20/2024 10:10 AM [facility] Cervical Spine CT 03/21/24 11:18 IMPRESSION: 1. Allowing for suboptimal positioning, there is no CT evidence of acute cervical spine fracture or injury. 2. Degenerative changes with bulky ventral osteophytes spanning C4-C6, appearance in keeping with DISH. Electronically signed by: Fortino Dumont MD 03/21/2024 12:01 PM EST RP Head CT 03/21/24 11:18 IMPRESSION: 1. No acute intracranial abnormality. No acute fractures seen. 2. Stable chronic findings as discussed. Electronically signed by: Fortino Dumont MD 03/21/2024 11:54 AM EST RP Pelvis CT 03/21/24 11:18 IMPRESSION: 1. No acute bony abnormalities. No fractures. 2. Constipation with a large amount of stool in the rectum and sigmoid colon. 3. Mild thickening of the urinary bladder wall despite underdistention, nonspecific. Differential includes the detrusor hypertrophy, neurogenic bladder, or possibly cystitis. Electronically signed by: Fortino Dumont MD 03/21/2024 12:09 PM EST RP Head CT 03/28/24 09:37 IMPRESSION: No acute fracture, bony calvarium. No acute intracranial hemorrhage. Small vessel occlusive disease. Bifrontal bitemporal lobe atrophy. Electronically signed by: Juan Corrigan MD 03/28/2024 10:19 AM EST RP Medications Medications Current Medications Acetaminophen (Acetaminophen 325 Mg Tablet) 650 mg PO Q6H PRN PRN Reason: Headache/Pain Mild Scale (1-3) Last Admin: 01/17/24 23:53 Dose: 325 mg Al Hydroxide/Mg Hydroxide (Magnesium Hydrox/Alum Hydrox 30 Ml Oral.Susp) 30 ml PO Q6H PRN PRN Reason: Heartburn/Nausea Amlodipine Besylate (Amlodipine Besylate 10 Mg Tablet) 10 mg PO DAILY [facility]; Protocol Last Admin: 04/04/24 08:30 Dose: 10 mg Aspirin (Aspirin 81 Mg Tab.Chew) 81 mg PO DAILY [facility] Last Admin: 04/04/24 08:30 Dose: 81 mg Atorvastatin Calcium (Atorvastatin Calcium 40 Mg Tablet) 40 mg PO DAILY [facility] Last Admin: 04/04/24 08:30 Dose: 40 mg Carbamazepine (Carbamazepine 200 Mg Tablet) 200 mg PO BID [facility] Last Admin: 04/04/24 08:30 Dose: 200 mg Clonidine (Clonidine 0.2 Mg Patch.Tdwk) 0.2 mg TRANSDERMA Fr@0900 [facility]; Protocol Last Admin: 03/30/24 09:09 Dose: Not Given Ferrous Sulfate (Ferrous Sulfate 324 Mg Tablet.Dr) 324 mg PO BID [facility] Last Admin: 04/04/24 08:30 Dose: Not Given Haloperidol Lactate (Haloperidol Lactate Oral Conc 10 Mg/5 Ml Oral.Conc) 5 mg PO Q6H PRN PRN Reason: Psychosis or severe agitation Last Admin: 04/03/24 13:06 Dose: 5 mg Haloperidol Lactate (Haloperidol Lactate Oral Conc 10 Mg/5 Ml Oral.Conc) 7.5 mg PO BID [facility] Last Admin: 04/04/24 08:31 Dose: 7.5 mg Haloperidol Lactate (Haloperidol Lactate 5 Mg/Ml Vial) 7.5 mg IM BID PRN PRN Reason: Refusal of Court PO Haldol Last Admin: 03/31/24 09:27 Dose: 7.5 mg Lorazepam (Lorazepam 1 Mg Tablet) 2 mg PO Q6H PRN PRN Reason: agitation Last Admin: 04/03/24 19:33 Dose: 2 mg Magnesium Hydroxide (Milk Of Magnesia 30 Ml Oral.Susp) 30 ml PO DAILY PRN PRN Reason: Constipation Nicotine Polacrilex (Nicotine Polacrilex 2 Mg Gum) 2 mg BUCCAL Q2H PRN PRN Reason: Nicotine Cravings Trazodone HCl (Trazodone Hcl 50 Mg Tablet) 50 mg PO BEDTIME MRX1 PRN PRN Reason: Insomnia Last Admin: 04/02/24 23:56 Dose: 50 mg Valproic Acid (Valproic Acid Liquid 250 Mg/5 Ml Solution) 750 mg PO BID [facility] Last Admin: 04/04/24 08:29 Dose: 750 mg Vitamin D (Cholecalciferol (Vitamin D3) 25 Mcg Tablet) 50 mcg PO DAILY [facility] Last Admin: 04/04/24 08:30 Dose: Not Given Allergies Allergies Allergy/AdvReac Type Severity Reaction Status Date / Time lithium Allergy Unknown Verified 01/13/24 18:08 Assessment & Plan Assessment & Plan (1) Schizoaffective disorder, bipolar type: Status: Acute Code(s): F25.0 - Schizoaffective disorder, bipolar type (2) Hypertension: Status: Acute Code(s): I10 - Essential (primary) hypertension (3) Diabetes mellitus: Status: Acute Code(s): E11.9 - Type 2 diabetes mellitus without complications Plan 03/23 keep same treatment 68 yo from a long-term with chronic psychotic disorder, refusing medication , elevated bp and disorganized and agitated behavior requiring psychiatric hospitalization and treatment not competent to sign cv. 01/14 continue to follow - gave lambs warning today- and he says the loom operator apprentice will be a she- still refusing medications and quite psychotic takes alot of redirection to settle him poor adls- 01/15- Refuses meds, refuses hospitalist consult-second day File for Section Seven consideration on 01/17. Provide care as he will allow. 01/16: Depakote 250 mg bid Haldol, Lorazepam, Benadryl prn Section 7 to be filed 01/17 Message left for guardian. 01/17: Section Seven filed. . Court scheduled 01/26/24 Pt continues to refuse medicaitons. He is in need of full assist with ADL's and is incontinent. Pt transferred to [facility] this afternoon. 01/19/2024 Patient pending civil commitment loud agitated would not engage in any conversation with this database report writer non informational healing agitated verbally aggressive. Every attempt being made to get a copy of the patient's Servin order unclear why this has been so problematic. Encourage food and fluids 01/19 continue same treatment 01/21/24 Patient labile agitated intrusive close labs ordered in order to per to protect the community patient wandering into patient's rooms intrusive impulsive laying on another person's bed. Often hostile agitated posturing at times we are still pending copy of reported Servin order encourage p.o. compliance 01/22/2024 Patient did require physical hold escort him out of a room that he jumped in other patient's room and on their bed while there were in it. There was no physical harm and the patient did leave the room his markedly impulsive with poor judgment remains on close observation has intermittently taken Haldol liquid pending civil commitment treatment plan there is a question of Servin order 01/22 The patient had been more agitated. We review his Servin order and we are increasing the Abilify up to 15 mg p.o. daily and adding Haldol p.r.n. since it is in his role years order. We needed to give him some p.r.n. at 14:00. 01/23 The patient is grossly psychotic disrobing and sexually disinhibited we are starting Haldol 2 mg p.o. t.i.d. to target psychosis as per court order treatment over objection order. 01/24 The patient remains very agitated and angry disruptive so we are increasing the Haldol from 2 mg to 5 mg p.o. t.i.d. with a backup IM if the patient refused as per court order. 01/25 we have increased the Haldol but still he is very psychotic and restless. Today he refused his blood work. He needed to be physically held twice. 01/26 the patient remains agitated at times but his last IM backup was yesterday. We are going to increase Abilify up to 20 mg daily to target mood lability and psychosis. 01/29/2024: Increase frequency of prn doses from tid to prn q 6mrs. Poor insight and unable to care for self 02/08 pt has not take any of mood stabilizer. continues to have poor sleep, intrusive and combative requiring IM medications, increase haldol 10mg po TID, back up IM. Will add ativan 1mg po TID, also back up IM. Labs show elevated CK 2300, BUN 20, Cr 1.80, unclear baseline Cr as he does have CKD. Discussed with hospitalist Dr. Gama, to give IV fluids and monitor labs tomorrow. LFTs also elevated suspect this is secondary to elevation in CK and should trend down as CK goes down. 02/09 still agitated, creatinine and CPK slightly high as yesterday, he removed his IV line there is no big difference with IV hydration. We are changing his community role years to have more options since it is not working Abilify and Haldol 02/10 3 chemical restraints yesterday. appears more combative, and somewhat more confused. Will decrease amount of benzo and antihistamine given to him as it seems to be backfiring. did discuss with ICU attending, Dr. Whiteside possibility of transferring there but they would like us to try IV depakote and exhaust all resources prior to considering transfer. Pt did take depakote springkle 1000mg with apple sauce with much encourage. 02/11 continue tx. 02/12 continue same treatment 01/14 continue with Abilify and other court order medications, we are Namenda and the court order. 02/14 Team report improvement today with pt having greater comfort and less agitation. [id number] the staff reported that the patient had been less violent in the last 24 hours 02/16 continue tx. will check depakote and ammonia on 02/17 in AM. 02/17 continue regime and plan of care 02/26/2024: Continue current regimen as per court order 03/03 continue tx. lactulose for now as we don't have new ammonia level, but will try to chack labs. 03/16- continue medications, held clonidine patch for today due to low BP. repeat labs. 03/17-continue plan of care 03/18- continue tx 03/19 continue same treatment 03/20 waiting for CBC, basic metabolic panel and ammonia level. Today he nearly choked with a grape. We are going to change his diet to chopped 03/21 patient had a fall and he was assessed. No injuries as per CT scan of head and pelvis. Again he refused again his blood work vital signs within normal limits. 03/22 keep same treatment 03/23 keep same treatment 03 24 24 Continue plan of care Depakote Tegretol Haldol carbamazepine 03/25/2024 Repeat swallowing study ordered he is already on ground diet consider lowering Haldol versus Cogentin generally try to avoid older man 03/26 lowered Haldol to 7.5 p.o. b.i.d. 03/27 start Abilify Maintena 400 IM, later on we stopped it since he was over- sedated. 03/28 monitor vital signs and we will order blood work for tomorrow morning. 03/29 keep same treatment. We are deferring Abilify Maintena since the patient is still sedated and looks slightly delirious. He has refused blood work 03/31 continue current tx. less combative but no improvement in mentation. grossly disorganized and non sensical. 04/01: court ordered meds- team reviewing and optimizing same. 04/02 continue tx. 04/03 keep same treatment, so far he had been more compliant with some of the medications in the last 3 days. 04/04 start Abilify Maintena 400 Reason for continued inpatient stay Substantial Risk for: inability to function, rapid decompensation and med/psych decompensation Time Spent With Patient Time: Total time managing care of this patient today __20__ minutes.
--- NOTE | 2024-04-04 14:44 | MHC.SLORD ---
Speech Language Pathology Order Status: Staff on unit providing care/cueing to pt in promoting emotional regulation. Pt observed to feed himself upon accepting redirection to sit at table for lunch. No concerns with pt PO tolerance reported at this time. ELECTRONIC LAB TECHNICIAN will continue to follow.
[2024-04-04] MEDS: ARIPiprazole ER 400 MG SUSER.SYR IM (15:05)
[2024-04-04] MEDS: traZODone HCL 50 MG TABLET PO (21:54)
[2024-04-04] MEDS: LORazepam 1 MG TABLET 2 MG PO (21:54)
[2024-04-05] MEDS: traZODone HCL 50 MG TABLET PO
[2024-04-05 08:00] VITALS: RESP 18
[2024-04-05] MEDS: Haloperidol Lactate Oral Conc 10 MG/5 ML ORAL.CONC 7.5 MG PO ×2 (09:27→23:01)
[2024-04-05] MEDS: Valproic Acid Liquid 250 MG/5 ML SOLUTION 750 MG PO ×2 (09:27→23:02)
[2024-04-05] MEDS: Aspirin 81 MG TAB.CHEW PO (09:28)
[2024-04-05] MEDS: Cholecalciferol (Vitamin D3) 25 MCG TABLET 50 MCG PO (09:28)
[2024-04-05] MEDS: Atorvastatin Calcium 40 MG TABLET PO (09:29)
[2024-04-05] MEDS: carBAMazepine 200 MG TABLET PO (09:29)
--- NOTE | 2024-04-05 10:43 | HO.PSYCHPN ---
Subjective Subjective Date of Service: 04/05/24 Reason For Visit: Schizoaffective disorder Subjective Notes: Section 7 and Section 8 Healthcare Proxy: Yes Interim History: The nursing staff reported the patient received Abilify Maintena yesterday as prescribed, he took all his medications and he slept well. On interview the patient was on his bed covering his head and he was nonsensical but redirectable. Mental Status Exam Mental Status Exam Patient Appearance: Unkempt Patient Orientation: Person Level of Consciousness: Restless and Inappropriate Patient Behavior: Guarded and Passive Mood Description: Withdrawn Affect Description: Blunted Patient Cognition Impaired: Yes Ability to Follow Directions: Fair Speech Pattern: Impoverished and Mumbled Hallucinations: Auditory Delusions: Paranoid Ideation and Ideas of Reference Thought Process: Distracted and Slowed Thinking Thought Content: positive for Rosanky and positive for Poverty of Content Judgement: Poor Diagnostics Vital Signs (24Hr): BMI result Body Mass Index 25.1 Labs 03/30/24 08:49 03/30/24 08:49 Imaging Radiology Impressions: ITS Impressions Chest X-Ray 03/20/24 08:33 IMPRESSION: Extremely limited exam. Only lateral views could be obtained. Suspect basilar airspace opacity, possibly pneumonia. Electronically signed by: Fortino Dumont MD 03/20/2024 10:10 AM EST RP Cervical Spine CT 03/21/24 11:18 IMPRESSION: 1. Allowing for suboptimal positioning, there is no CT evidence of acute cervical spine fracture or injury. 2. Degenerative changes with bulky ventral osteophytes spanning C4-C6, appearance in keeping with DISH. Electronically signed by: Fortino Dumont MD 03/21/2024 12:01 PM EST RP Head CT 03/21/24 11:18 IMPRESSION: 1. No acute intracranial abnormality. No acute fractures seen. 2. Stable chronic findings as discussed. Electronically signed by: Fortino Dumont MD 03/21/2024 11:54 AM EST RP Pelvis CT 03/21/24 11:18 IMPRESSION: 1. No acute bony abnormalities. No fractures. 2. Constipation with a large amount of stool in the rectum and sigmoid colon. 3. Mild thickening of the urinary bladder wall despite underdistention, nonspecific. Differential includes the detrusor hypertrophy, neurogenic bladder, or possibly cystitis. Electronically signed by: Fortino Dumont MD 03/21/2024 12:09 PM EST RP Head CT 03/28/24 09:37 IMPRESSION: No acute fracture, bony calvarium. No acute intracranial hemorrhage. Small vessel occlusive disease. Bifrontal bitemporal lobe atrophy. Electronically signed by: Juan Corrigan MD 03/28/2024 10:19 AM EST RP Medications Medications Current Medications Acetaminophen (Acetaminophen 325 Mg Tablet) 650 mg PO Q6H PRN PRN Reason: Headache/Pain Mild Scale (1-3) Last Admin: 01/17/24 23:53 Dose: 325 mg Al Hydroxide/Mg Hydroxide (Magnesium Hydrox/Alum Hydrox 30 Ml Oral.Susp) 30 ml PO Q6H PRN PRN Reason: Heartburn/Nausea Amlodipine Besylate (Amlodipine Besylate 10 Mg Tablet) 10 mg PO DAILY COUNT INCLUDES THE [facility]; Protocol Last Admin: 04/05/24 09:57 Dose: Not Given Aripiprazole (Aripiprazole Er 400 Mg Suser.Syr) 400 mg IM Q30D COUNT INCLUDES THE [facility] Last Admin: 04/04/24 15:05 Dose: 400 mg Aspirin (Aspirin 81 Mg Tab.Chew) 81 mg PO DAILY COUNT INCLUDES THE [facility] Last Admin: 04/05/24 09:28 Dose: 81 mg Atorvastatin Calcium (Atorvastatin Calcium 40 Mg Tablet) 40 mg PO DAILY COUNT INCLUDES THE [facility] Last Admin: 04/05/24 09:29 Dose: 40 mg Carbamazepine (Carbamazepine 200 Mg Tablet) 200 mg PO BID COUNT INCLUDES THE [facility] Last Admin: 04/05/24 09:29 Dose: 200 mg Clonidine (Clonidine 0.2 Mg Patch.Tdwk) 0.2 mg TRANSDERMA Fr@0900 COUNT INCLUDES THE [facility]; Protocol Last Admin: 03/30/24 09:09 Dose: Not Given Ferrous Sulfate (Ferrous Sulfate 324 Mg Tablet.Dr) 324 mg PO BID COUNT INCLUDES THE [facility] Last Admin: 04/05/24 09:55 Dose: Not Given Haloperidol Lactate (Haloperidol Lactate Oral Conc 10 Mg/5 Ml Oral.Conc) 5 mg PO Q6H PRN PRN Reason: Psychosis or severe agitation Last Admin: 04/03/24 13:06 Dose: 5 mg Haloperidol Lactate (Haloperidol Lactate Oral Conc 10 Mg/5 Ml Oral.Conc) 7.5 mg PO BID COUNT INCLUDES THE [facility] Last Admin: 04/05/24 09:27 Dose: 7.5 mg Haloperidol Lactate (Haloperidol Lactate 5 Mg/Ml Vial) 7.5 mg IM BID PRN PRN Reason: Refusal of Court PO Haldol Last Admin: 03/31/24 09:27 Dose: 7.5 mg Lorazepam (Lorazepam 1 Mg Tablet) 2 mg PO Q6H PRN PRN Reason: agitation Last Admin: 04/04/24 21:54 Dose: 2 mg Magnesium Hydroxide (Milk Of Magnesia 30 Ml Oral.Susp) 30 ml PO DAILY PRN PRN Reason: Constipation Nicotine Polacrilex (Nicotine Polacrilex 2 Mg Gum) 2 mg BUCCAL Q2H PRN PRN Reason: Nicotine Cravings Trazodone HCl (Trazodone Hcl 50 Mg Tablet) 50 mg PO BEDTIME MRX1 PRN PRN Reason: Insomnia Last Admin: 04/05/24 00:00 Dose: 50 mg Valproic Acid (Valproic Acid Liquid 250 Mg/5 Ml Solution) 750 mg PO BID COUNT INCLUDES THE [facility] Last Admin: 04/05/24 09:27 Dose: 750 mg Vitamin D (Cholecalciferol (Vitamin D3) 25 Mcg Tablet) 50 mcg PO DAILY COUNT INCLUDES THE [facility] Last Admin: 04/05/24 09:28 Dose: 50 mcg Allergies Allergies Allergy/AdvReac Type Severity Reaction Status Date / Time lithium Allergy Unknown Verified 01/13/24 18:08 Assessment & Plan Assessment & Plan (1) Schizoaffective disorder, bipolar type: Status: Acute Code(s): F25.0 - Schizoaffective disorder, bipolar type (2) Hypertension: Status: Acute Code(s): I10 - Essential (primary) hypertension (3) Diabetes mellitus: Status: Acute Code(s): E11.9 - Type 2 diabetes mellitus without complications Plan 03/23 keep same treatment 68 yo from a residential with chronic psychotic disorder, refusing medication , elevated bp and disorganized and agitated behavior requiring psychiatric hospitalization and treatment not competent to sign cv. 01/14 continue to follow - gave lambs warning today- and he says the mig welder will be a she- still refusing medications and quite psychotic takes alot of redirection to settle him poor adls- 01/15- Refuses meds, refuses hospitalist consult-second day File for Section Seven consideration on 01/17. Provide care as he will allow. 01/16: Depakote 250 mg bid Haldol, Lorazepam, Benadryl prn Section 7 to be filed 01/17 Message left for guardian. 01/17: Section Seven filed. . Court scheduled 01/26/24 Pt continues to refuse medicaitons. He is in need of full assist with ADL's and is incontinent. Pt transferred to [facility] this afternoon. 01/19/2024 Patient pending civil commitment loud agitated would not engage in any conversation with this verse writer non informational healing agitated verbally aggressive. Every attempt being made to get a copy of the patient's Servin order unclear why this has been so problematic. Encourage food and fluids 01/19 continue same treatment 01/21/24 Patient labile agitated intrusive close labs ordered in order to per to protect the community patient wandering into patient's rooms intrusive impulsive laying on another person's bed. Often hostile agitated posturing at times we are still pending copy of reported Servin order encourage p.o. compliance 01/22/2024 Patient did require physical hold escort him out of a room that he jumped in other patient's room and on their bed while there were in it. There was no physical harm and the patient did leave the room his markedly impulsive with poor judgment remains on close observation has intermittently taken Haldol liquid pending civil commitment treatment plan there is a question of Servin order 01/22 The patient had been more agitated. We review his Servin order and we are increasing the Abilify up to 15 mg p.o. daily and adding Haldol p.r.n. since it is in his role years order. We needed to give him some p.r.n. at 14:00. 01/23 The patient is grossly psychotic disrobing and sexually disinhibited we are starting Haldol 2 mg p.o. t.i.d. to target psychosis as per court order treatment over objection order. 01/24 The patient remains very agitated and angry disruptive so we are increasing the Haldol from 2 mg to 5 mg p.o. t.i.d. with a backup IM if the patient refused as per court order. 01/25 we have increased the Haldol but still he is very psychotic and restless. Today he refused his blood work. He needed to be physically held twice. 01/26 the patient remains agitated at times but his last IM backup was yesterday. We are going to increase Abilify up to 20 mg daily to target mood lability and psychosis. 01/29/2024: Increase frequency of prn doses from tid to prn q 6mrs. Poor insight and unable to care for self 02/08 pt has not take any of mood stabilizer. continues to have poor sleep, intrusive and combative requiring IM medications, increase haldol 10mg po TID, back up IM. Will add ativan 1mg po TID, also back up IM. Labs show elevated CK 2300, BUN 20, Cr 1.80, unclear baseline Cr as he does have CKD. Discussed with hospitalist Dr. Gama, to give IV fluids and monitor labs tomorrow. LFTs also elevated suspect this is secondary to elevation in CK and should trend down as CK goes down. 02/09 still agitated, creatinine and CPK slightly high as yesterday, he removed his IV line there is no big difference with IV hydration. We are changing his community role years to have more options since it is not working Abilify and Haldol 02/10 3 chemical restraints yesterday. appears more combative, and somewhat more confused. Will decrease amount of benzo and antihistamine given to him as it seems to be backfiring. did discuss with ICU attending, Dr. Whiteside possibility of transferring there but they would like us to try IV depakote and exhaust all resources prior to considering transfer. Pt did take depakote springkle 1000mg with apple sauce with much encourage. 02/11 continue tx. 02/12 continue same treatment 01/14 continue with Abilify and other court order medications, we are Namenda and the court order. 02/14 Team report improvement today with pt having greater comfort and less agitation. [id number] the staff reported that the patient had been less violent in the last 24 hours 02/16 continue tx. will check depakote and ammonia on 02/17 in AM. 02/17 continue regime and plan of care 02/26/2024: Continue current regimen as per court order 03/03 continue tx. lactulose for now as we don't have new ammonia level, but will try to chack labs. 03/16- continue medications, held clonidine patch for today due to low BP. repeat labs. 03/17-continue plan of care 03/18- continue tx 03/19 continue same treatment 03/20 waiting for CBC, basic metabolic panel and ammonia level. Today he nearly choked with a grape. We are going to change his diet to chopped 03/21 patient had a fall and he was assessed. No injuries as per CT scan of head and pelvis. Again he refused again his blood work vital signs within normal limits. 03/22 keep same treatment 03/23 keep same treatment 03 24 24 Continue plan of care Depakote Tegretol Haldol carbamazepine 03/25/2024 Repeat swallowing study ordered he is already on ground diet consider lowering Haldol versus Cogentin generally try to avoid older man 03/26 lowered Haldol to 7.5 p.o. b.i.d. 03/27 start Abilify Maintena 400 IM, later on we stopped it since he was over-sedated. 03/28 monitor vital signs and we will order blood work for tomorrow morning. 03/29 keep same treatment. We are deferring Abilify Maintena since the patient is still sedated and looks slightly delirious. He has refused blood work 03/31 continue current tx. less combative but no improvement in mentation. grossly disorganized and non sensical. 04/01: court ordered meds- team reviewing and optimizing same. 04/02 continue tx. 04/03 keep same treatment, so far he had been more compliant with some of the medications in the last 3 days. 04/04 start Abilify Maintena 400 04/05 keep Haldol as prescribed Reason for continued inpatient stay Substantial Risk for: inability to function, rapid decompensation and med/psych decompensation Time Spent With Patient Time: Total time managing care of this patient today __20__ minutes.
[2024-04-05] MEDS: LORazepam 1 MG TABLET 2 MG PO ×2 (15:41→23:01)
--- NOTE | 2024-04-05 18:04 | PC.NURSE ---
Addendum entered by Dulce Blount RN 04/05/24 19:09: BP 126/57, P 70, T 97.3, O2sat 100% on RA at 16:00. No c/o pain. Original Note: Patient was sitting in a w/c with his arms up trying to catch something in the air when suddenly he flipped over on his back and with w/c. He hit his head against a side table. All parties notified. Pt had CT scan of his head. Awaiting report. Voice mail left for pt's guardian Jessica Zhao. Will continue to monitor.
[2024-04-05 20:00] VITALS: BP 117/56; PULSE 59; RESP 16; TEMP 37.2; O2SAT 100
--- NOTE | 2024-04-06 00:56 | P.EN_ITS ---
Event Note Date of Service: 04/06/24 Event Note: Patient is a 68-year-old male with a PMH significant HTN, HLD, no a-[id number] type 2 diabetes, hypothyroidism, and mood disorder who was admitted [facility]. Medical consult for witnessed fall with headstrike. Pt with a long history of agitation and psychosis requiring multiple chemical restraints during his prolonged admission. Pt apparently was in his wheelchair this evening and staff were attempting to bring him into the bathroom for care when pt became agitated, throwing himself backwards and causing his wheelchair to tip over. Pt fell and struck his head on the floor. No signs of trauma noted. CT of head obtained which was negative for acute intracranial abnormality. Pt seen and evaluated in his room where he is resting comfortably in his bed. Pt protecting airway, breathing unlabored. HPI and ROS limited due to pt's psychosis, but does not have any acute medical complaints. Denies headache or musculoskeletal pain. Head atraumatic. According to nursing and sitter at bedside pt is at baseline with mentation. No further workup or treatment indicated at this time. Time Spent With Patient Time: Total time managing care of this patient today ____ minutes.
[2024-04-06 08:00] VITALS: RESP 18
[2024-04-06] MEDS: Valproic Acid Liquid 250 MG/5 ML SOLUTION 750 MG PO ×2 (09:15→21:44)
[2024-04-06] MEDS: Aspirin 81 MG TAB.CHEW PO (09:18)
[2024-04-06] MEDS: Haloperidol Lactate Oral Conc 10 MG/5 ML ORAL.CONC 7.5 MG PO ×2 (09:22→21:44)
--- NOTE | 2024-04-06 12:20 | MHC.SLORD ---
Speech Language Pathology Order Status: Patient was sleeping during lunch at time of [employer] FIXT[employer] BUILDER APPRENTICE visit. Per staff and chart, patient had fall last night after being very agitated, and was medicated today. J[employer] APPRENTICE will re-attempt when patient is available.
--- NOTE | 2024-04-06 13:09 | HO.PSYCHPN ---
Subjective Subjective Date of Service: 04/06/24 Reason For Visit: Schizoaffective disorder Subjective Notes: Section 7 and Section 8 Interim History: The patient fell from his wheelchair yesterday and had another CT scan and hospitalist consult with no new findings. The patient remains psychotic and internally preoccupied. Mental Status Exam Mental Status Exam Patient Appearance: Appropriate Patient Orientation: Person Level of Consciousness: Awake Patient Behavior: Guarded and Passive Mood Description: Withdrawn Affect Description: Blunted Patient Cognition Impaired: Yes Ability to Follow Directions: Fair Speech Pattern: Impoverished Hallucinations: None Delusions: Paranoid Ideation and Ideas of Reference Thought Process: Distracted and Slowed Thinking Thought Content: positive for [place] and positive for Poverty of Content Judgement: Poor Diagnostics Vital Signs (24Hr): Vital Signs - 24 hr 04/05/24 20:00 04/06/24 08:00 Temperature 99 F Pulse Rate 59 Respiratory Rate 16 18 Blood Pressure 117/56 L Pulse Oximetry 100 Oxygen Delivery Method Room Air BMI result Body Mass Index 25.1 Labs 03/30/24 08:49 03/30/24 08:49 Imaging Radiology Impressions: ITS Impressions Chest X-Ray 03/20/24 08:33 IMPRESSION: Extremely limited exam. Only lateral views could be obtained. Suspect basilar airspace opacity, possibly pneumonia. Electronically signed by: Fortino Dumont MD 03/20/2024 10:10 AM EST RP Cervical Spine CT 03/21/24 11:18 IMPRESSION: 1. Allowing for suboptimal positioning, there is no CT evidence of acute cervical spine fracture or injury. 2. Degenerative changes with bulky ventral osteophytes spanning C4-C6, appearance in keeping with DISH. Electronically signed by: Fortino Dumont MD 03/21/2024 12:01 PM EST RP Head CT 03/21/24 11:18 IMPRESSION: 1. No acute intracranial abnormality. No acute fractures seen. 2. Stable chronic findings as discussed. Electronically signed by: Fortino Dumont MD 03/21/2024 11:54 AM EST RP Pelvis CT 03/21/24 11:18 IMPRESSION: 1. No acute bony abnormalities. No fractures. 2. Constipation with a large amount of stool in the rectum and sigmoid colon. 3. Mild thickening of the urinary bladder wall despite underdistention, nonspecific. Differential includes the detrusor hypertrophy, neurogenic bladder, or possibly cystitis. Electronically signed by: Fortino Dumont MD 03/21/2024 12:09 PM EST RP Head CT 03/28/24 09:37 IMPRESSION: No acute fracture, bony calvarium. No acute intracranial hemorrhage. Small vessel occlusive disease. Bifrontal bitemporal lobe atrophy. Electronically signed by: Juan Corrigan MD 03/28/2024 10:19 AM EST RP Medications Medications Current Medications Acetaminophen (Acetaminophen 325 Mg Tablet) 650 mg PO Q6H PRN PRN Reason: Headache/Pain Mild Scale (1-3) Last Admin: 01/17/24 23:53 Dose: 325 mg Al Hydroxide/Mg Hydroxide (Magnesium Hydrox/Alum Hydrox 30 Ml Oral.Susp) 30 ml PO Q6H PRN PRN Reason: Heartburn/Nausea Amlodipine Besylate (Amlodipine Besylate 10 Mg Tablet) 10 mg PO DAILY [facility]; Protocol Last Admin: 04/06/24 09:23 Dose: Not Given Aripiprazole (Aripiprazole Er 400 Mg Suser.Syr) 400 mg IM Q30D [facility] Last Admin: 04/04/24 15:05 Dose: 400 mg Aspirin (Aspirin 81 Mg Tab.Chew) 81 mg PO DAILY [facility] Last Admin: 04/06/24 09:18 Dose: 81 mg Atorvastatin Calcium (Atorvastatin Calcium 40 Mg Tablet) 40 mg PO DAILY [facility] Last Admin: 04/06/24 09:23 Dose: Not Given Carbamazepine (Carbamazepine 200 Mg Tablet) 200 mg PO BID [facility] Last Admin: 04/06/24 09:23 Dose: Not Given Clonidine (Clonidine 0.2 Mg Patch.Tdwk) 0.2 mg TRANSDERMA Fr@0900 [facility]; Protocol Last Admin: 04/06/24 10:06 Dose: Not Given Ferrous Sulfate (Ferrous Sulfate 324 Mg Tablet.Dr) 324 mg PO BID [facility] Last Admin: 04/06/24 09:24 Dose: Not Given Haloperidol Lactate (Haloperidol Lactate Oral Conc 10 Mg/5 Ml Oral.Conc) 5 mg PO Q6H PRN PRN Reason: Psychosis or severe agitation Last Admin: 04/03/24 13:06 Dose: 5 mg Haloperidol Lactate (Haloperidol Lactate Oral Conc 10 Mg/5 Ml Oral.Conc) 7.5 mg PO BID [facility] Last Admin: 04/06/24 09:22 Dose: 7.5 mg Haloperidol Lactate (Haloperidol Lactate 5 Mg/Ml Vial) 7.5 mg IM BID PRN PRN Reason: Refusal of Court PO Haldol Last Admin: 03/31/24 09:27 Dose: 7.5 mg Lorazepam (Lorazepam 1 Mg Tablet) 2 mg PO Q6H PRN PRN Reason: agitation Last Admin: 04/05/24 23:01 Dose: 2 mg Magnesium Hydroxide (Milk Of Magnesia 30 Ml Oral.Susp) 30 ml PO DAILY PRN PRN Reason: Constipation Nicotine Polacrilex (Nicotine Polacrilex 2 Mg Gum) 2 mg BUCCAL Q2H PRN PRN Reason: Nicotine Cravings Trazodone HCl (Trazodone Hcl 50 Mg Tablet) 50 mg PO BEDTIME MRX1 PRN PRN Reason: Insomnia Last Admin: 04/05/24 00:00 Dose: 50 mg Valproic Acid (Valproic Acid Liquid 250 Mg/5 Ml Solution) 750 mg PO BID [facility] Last Admin: 04/06/24 09:15 Dose: 750 mg Vitamin D (Cholecalciferol (Vitamin D3) 25 Mcg Tablet) 50 mcg PO DAILY [facility] Last Admin: 04/06/24 09:23 Dose: Not Given Allergies Allergies Allergy/AdvReac Type Severity Reaction Status Date / Time lithium Allergy Unknown Verified 01/13/24 18:08 Assessment & Plan Assessment & Plan (1) Schizoaffective disorder, bipolar type: Status: Acute Code(s): F25.0 - Schizoaffective disorder, bipolar type (2) Hypertension: Status: Acute Code(s): I10 - Essential (primary) hypertension (3) Diabetes mellitus: Status: Acute Code(s): E11.9 - Type 2 diabetes mellitus without complications Plan 03/23 keep same treatment 68 yo from a [facility] with chronic psychotic disorder, refusing medication , elevated bp and disorganized and agitated behavior requiring psychiatric hospitalization and treatment not competent to sign cv. 01/14 continue to follow - gave lambs warning today- and he says the magistrate judge will be a she- still refusing medications and quite psychotic takes alot of redirection to settle him poor adls- 01/15- Refuses meds, refuses hospitalist consult-second day File for Section Seven consideration on 01/17. Provide care as he will allow. 01/16: Depakote 250 mg bid Haldol, Lorazepam, Benadryl prn Section 7 to be filed 01/17 Message left for guardian. 01/17: Section Seven filed. . Court scheduled 01/26/24 Pt continues to refuse medicaitons. He is in need of full assist with ADL's and is incontinent. Pt transferred to [facility] this afternoon. 01/19/2024 Patient pending civil commitment loud agitated would not engage in any conversation with this service writer non informational healing agitated verbally aggressive. Every attempt being made to get a copy of the patient's Servin order unclear why this has been so problematic. Encourage food and fluids 01/19 continue same treatment 01/21/24 Patient labile agitated intrusive close labs ordered in order to per to protect the community patient wandering into patient's rooms intrusive impulsive laying on another person's bed. Often hostile agitated posturing at times we are still pending copy of reported Servin order encourage p.o. compliance 01/22/2024 Patient did require physical hold escort him out of a room that he jumped in other patient's room and on their bed while there were in it. There was no physical harm and the patient did leave the room his markedly impulsive with poor judgment remains on close observation has intermittently taken Haldol liquid pending civil commitment treatment plan there is a question of Servin order 01/22 The patient had been more agitated. We review his Servin order and we are increasing the Abilify up to 15 mg p.o. daily and adding Haldol p.r.n. since it is in his role years order. We needed to give him some p.r.n. at 14:00. 01/23 The patient is grossly psychotic disrobing and sexually disinhibited we are starting Haldol 2 mg p.o. t.i.d. to target psychosis as per court order treatment over objection order. 01/24 The patient remains very agitated and angry disruptive so we are increasing the Haldol from 2 mg to 5 mg p.o. t.i.d. with a backup IM if the patient refused as per court order. 01/25 we have increased the Haldol but still he is very psychotic and restless. Today he refused his blood work. He needed to be physically held twice. 01/26 the patient remains agitated at times but his last IM backup was yesterday. We are going to increase Abilify up to 20 mg daily to target mood lability and psychosis. 01/29/2024: Increase frequency of prn doses from tid to prn q 6mrs. Poor insight and unable to care for self 02/08 pt has not take any of mood stabilizer. continues to have poor sleep, intrusive and combative requiring IM medications, increase haldol 10mg po TID, back up IM. Will add ativan 1mg po TID, also back up IM. Labs show elevated CK 2300, BUN 20, Cr 1.80, unclear baseline Cr as he does have CKD. Discussed with hospitalist Dr. Gama, to give IV fluids and monitor labs tomorrow. LFTs also elevated suspect this is secondary to elevation in CK and should trend down as CK goes down. 02/09 still agitated, creatinine and CPK slightly high as yesterday, he removed his IV line there is no big difference with IV hydration. We are changing his community role years to have more options since it is not working Abilify and Haldol 02/10 3 chemical restraints yesterday. appears more combative, and somewhat more confused. Will decrease amount of benzo and antihistamine given to him as it seems to be backfiring. did discuss with ICU attending, Dr. Whiteside possibility of transferring there but they would like us to try IV depakote and exhaust all resources prior to considering transfer. Pt did take depakote springkle 1000mg with apple sauce with much encourage. 02/11 continue tx. 02/12 continue same treatment 01/14 continue with Abilify and other court order medications, we are Namenda and the court order. 02/14 Team report improvement today with pt having greater comfort and less agitation. [id number] the staff reported that the patient had been less violent in the last 24 hours 02/16 continue tx. will check depakote and ammonia on 02/17 in AM. 02/17 continue regime and plan of care 02/26/2024: Continue current regimen as per court order 03/03 continue tx. lactulose for now as we don't have new ammonia level, but will try to chack labs. 03/16- continue medications, held clonidine patch for today due to low BP. repeat labs. 03/17-continue plan of care 03/18- continue tx 03/19 continue same treatment 03/20 waiting for CBC, basic metabolic panel and ammonia level. Today he nearly choked with a grape. We are going to change his diet to chopped 03/21 patient had a fall and he was assessed. No injuries as per CT scan of head and pelvis. Again he refused again his blood work vital signs within normal limits. 03/22 keep same treatment 03/23 keep same treatment 03 24 24 Continue plan of care Depakote Tegretol Haldol carbamazepine 03/25/2024 Repeat swallowing study ordered he is already on ground diet consider lowering Haldol versus Cogentin generally try to avoid older man 03/26 lowered Haldol to 7.5 p.o. b.i.d. 03/27 start Abilify Maintena 400 IM, later on we stopped it since he was over-sedated. 03/28 monitor vital signs and we will order blood work for tomorrow morning. 03/29 keep same treatment. We are deferring Abilify Maintena since the patient is still sedated and looks slightly delirious. He has refused blood work 03/31 continue current tx. less combative but no improvement in mentation. grossly disorganized and non sensical. 04/01: court ordered meds- team reviewing and optimizing same. 04/02 continue tx. 04/03 keep same treatment, so far he had been more compliant with some of the medications in the last 3 days. 04/04 start Abilify Maintena 400 mg IM 04/05 keep Haldol as prescribed 04/06 keep same treatment Reason for continued inpatient stay Substantial Risk for: inability to function, rapid decompensation and med/psych decompensation Time Spent With Patient Time: Total time managing care of this patient today _20___ minutes.
[2024-04-06] MEDS: LORazepam 1 MG TABLET 2 MG PO ×2 (13:57→21:45)
--- NOTE | 2024-04-06 17:52 | PC.NURSE ---
The following note originally written 04/01/24 at 13:36, but entered into wrong chart Pt. psychotic and agitated, attempting to enter other patients' rooms. Pt. assaulting staff who attempt to redirect him and grabbing and forcefully twisting staffs' arms. Pt. already received PRNs without effect. notified and code assist called and pt. escorted to his room under his own power while continuing to attempt to grab staff. Pt. was physically held at 11:38 while IM haloperidol and IM lorazepam were administered. Physical hold released at 11:39. Pt's guardian, Jessica Zhao updated by phone at 13:15.
[2024-04-06] MEDS: Haloperidol Lactate Oral Conc 10 MG/5 ML ORAL.CONC 5 MG PO (18:23)
[2024-04-07] MEDS: Haloperidol Lactate Oral Conc 10 MG/5 ML ORAL.CONC 5 MG PO (02:33)
[2024-04-07] MEDS: traZODone HCL 50 MG TABLET PO ×2 (02:34→19:44)
[2024-04-07] MEDS: Haloperidol Lactate Oral Conc 10 MG/5 ML ORAL.CONC 7.5 MG PO ×2 (09:08→19:43)
[2024-04-07] MEDS: Valproic Acid Liquid 250 MG/5 ML SOLUTION 750 MG PO ×2 (09:08→19:43)
[2024-04-07] MEDS: carBAMazepine 200 MG TABLET PO ×2 (09:09→19:44)
[2024-04-07] MEDS: Atorvastatin Calcium 40 MG TABLET PO (09:09)
[2024-04-07] MEDS: Cholecalciferol (Vitamin D3) 25 MCG TABLET 50 MCG PO (09:09)
[2024-04-07] MEDS: amLODIPine Besylate 10 MG TABLET PO (09:09)
[2024-04-07] MEDS: Aspirin 81 MG TAB.CHEW PO (09:10)
--- NOTE | 2024-04-07 09:30 | HO.PSYCHPN ---
Subjective Subjective Date of Service: 04/07/24 Reason For Visit: Schizoaffective disorder Interim History: Pt seen, discussed with the team. He appears calm and more content today Team reports no new issues/symptoms of concern. Medication Compliance: Intermittent Side effects from medications: No Attending Groups: No Review of Systems Acute medical concerns: No Medical Review of Systems: unchanged Review of Systems Review of Systems Yes Unobtainable due to mental status Mental Status Exam Mental Status Exam Patient Appearance: Appropriate Patient Orientation: Person Level of Consciousness: Awake Patient Behavior: Guarded and Passive Mood Description: Withdrawn Affect Description: Blunted Patient Cognition Impaired: Yes Ability to Follow Directions: Fair Speech Pattern: Impoverished Hallucinations: None Delusions: Paranoid Ideation and Ideas of Reference Thought Process: Distracted and Slowed Thinking Thought Content: positive for [place] and positive for Poverty of Content Judgement: Poor Diagnostics Vital Signs (24Hr): BMI result Body Mass Index 25.1 Labs 03/30/24 08:49 03/30/24 08:49 Imaging Radiology Impressions: ITS Impressions Chest X-Ray 03/20/24 08:33 IMPRESSION: Extremely limited exam. Only lateral views could be obtained. Suspect basilar airspace opacity, possibly pneumonia. Electronically signed by: Fortino Dumont MD 03/20/2024 10:10 AM EST RP Cervical Spine CT 03/21/24 11:18 IMPRESSION: 1. Allowing for suboptimal positioning, there is no CT evidence of acute cervical spine fracture or injury. 2. Degenerative changes with bulky ventral osteophytes spanning C4-C6, appearance in keeping with DISH. Electronically signed by: Fortino Dumont MD 03/21/2024 12:01 PM EST RP Head CT 03/21/24 11:18 IMPRESSION: 1. No acute intracranial abnormality. No acute fractures seen. 2. Stable chronic findings as discussed. Electronically signed by: Fortino Dumont MD 03/21/2024 11:54 AM EST RP Pelvis CT 03/21/24 11:18 IMPRESSION: 1. No acute bony abnormalities. No fractures. 2. Constipation with a large amount of stool in the rectum and sigmoid colon. 3. Mild thickening of the urinary bladder wall despite underdistention, nonspecific. Differential includes the detrusor hypertrophy, neurogenic bladder, or possibly cystitis. Electronically signed by: Fortino Dumont MD 03/21/2024 12:09 PM EST RP Head CT 03/28/24 09:37 IMPRESSION: No acute fracture, bony calvarium. No acute intracranial hemorrhage. Small vessel occlusive disease. Bifrontal bitemporal lobe atrophy. Electronically signed by: Juan Corrigan MD 03/28/2024 10:19 AM EST RP Medications Medications Current Medications Acetaminophen (Acetaminophen 325 Mg Tablet) 650 mg PO Q6H PRN PRN Reason: Headache/Pain Mild Scale (1-3) Last Admin: 01/17/24 23:53 Dose: 325 mg Al Hydroxide/Mg Hydroxide (Magnesium Hydrox/Alum Hydrox 30 Ml Oral.Susp) 30 ml PO Q6H PRN PRN Reason: Heartburn/Nausea Amlodipine Besylate (Amlodipine Besylate 10 Mg Tablet) 10 mg PO DAILY [facility]; Protocol Last Admin: 04/07/24 09:09 Dose: 10 mg Aripiprazole (Aripiprazole Er 400 Mg Suser.Syr) 400 mg IM Q30D [facility] Last Admin: 04/04/24 15:05 Dose: 400 mg Aspirin (Aspirin 81 Mg Tab.Chew) 81 mg PO DAILY [facility] Last Admin: 04/07/24 09:10 Dose: 81 mg Atorvastatin Calcium (Atorvastatin Calcium 40 Mg Tablet) 40 mg PO DAILY [facility] Last Admin: 04/07/24 09:09 Dose: 40 mg Carbamazepine (Carbamazepine 200 Mg Tablet) 200 mg PO BID [facility] Last Admin: 04/07/24 09:09 Dose: 200 mg Clonidine (Clonidine 0.2 Mg Patch.Tdwk) 0.2 mg TRANSDERMA Fr@0900 [facility]; Protocol Last Admin: 04/06/24 10:06 Dose: Not Given Ferrous Sulfate (Ferrous Sulfate 324 Mg Tablet.Dr) 324 mg PO BID [facility] Last Admin: 04/07/24 09:11 Dose: Not Given Haloperidol Lactate (Haloperidol Lactate Oral Conc 10 Mg/5 Ml Oral.Conc) 5 mg PO Q6H PRN PRN Reason: Psychosis or severe agitation Last Admin: 04/07/24 02:33 Dose: 5 mg Haloperidol Lactate (Haloperidol Lactate Oral Conc 10 Mg/5 Ml Oral.Conc) 7.5 mg PO BID [facility] Last Admin: 04/07/24 09:08 Dose: 7.5 mg Haloperidol Lactate (Haloperidol Lactate 5 Mg/Ml Vial) 7.5 mg IM BID PRN PRN Reason: Refusal of Court PO Haldol Last Admin: 03/31/24 09:27 Dose: 7.5 mg Lorazepam (Lorazepam 1 Mg Tablet) 2 mg PO Q6H PRN PRN Reason: agitation Last Admin: 04/06/24 21:45 Dose: 2 mg Magnesium Hydroxide (Milk Of Magnesia 30 Ml Oral.Susp) 30 ml PO DAILY PRN PRN Reason: Constipation Nicotine Polacrilex (Nicotine Polacrilex 2 Mg Gum) 2 mg BUCCAL Q2H PRN PRN Reason: Nicotine Cravings Trazodone HCl (Trazodone Hcl 50 Mg Tablet) 50 mg PO BEDTIME MRX1 PRN PRN Reason: Insomnia Last Admin: 04/07/24 02:34 Dose: 50 mg Valproic Acid (Valproic Acid Liquid 250 Mg/5 Ml Solution) 750 mg PO BID [facility] Last Admin: 04/07/24 09:08 Dose: 750 mg Vitamin D (Cholecalciferol (Vitamin D3) 25 Mcg Tablet) 50 mcg PO DAILY [facility] Last Admin: 04/07/24 09:09 Dose: 50 mcg Allergies Allergies Allergy/AdvReac Type Severity Reaction Status Date / Time lithium Allergy Unknown Verified 01/13/24 18:08 Assessment & Plan Assessment & Plan (1) Schizoaffective disorder, bipolar type: Status: Acute Code(s): F25.0 - Schizoaffective disorder, bipolar type (2) Hypertension: Status: Acute Code(s): I10 - Essential (primary) hypertension (3) Diabetes mellitus: Status: Acute Code(s): E11.9 - Type 2 diabetes mellitus without complications Plan 03/23 keep same treatment 68 yo from a longterm with chronic psychotic disorder, refusing medication , elevated bp and disorganized and agitated behavior requiring psychiatric hospitalization and treatment not competent to sign cv. 01/14 continue to follow - gave lambs warning today- and he says the kitchen helper will be a she- still refusing medications and quite psychotic takes alot of redirection to settle him poor adls- 01/15- Refuses meds, refuses hospitalist consult-second day File for Section [place] consideration on 01/17. Provide care as he will allow. 01/16: Depakote 250 mg bid Haldol, Lorazepam, Benadryl prn Section 7 to be filed 01/17 Message left for guardian. 01/17: Section Seven filed. . Court scheduled 01/26/24 Pt continues to refuse medicaitons. He is in need of full assist with ADL's and is incontinent. Pt transferred to [facility] this afternoon. 01/19/2024 Patient pending civil commitment loud agitated would not engage in any conversation with this quality analyst/technical writer non informational healing agitated verbally aggressive. Every attempt being made to get a copy of the patient's Servin order unclear why this has been so problematic. Encourage food and fluids 01/19 continue same treatment 01/21/24 Patient labile agitated intrusive close labs ordered in order to per to protect the community patient wandering into patient's rooms intrusive impulsive laying on another person's bed. Often hostile agitated posturing at times we are still pending copy of reported Servin order encourage p.o. compliance 01/22/2024 Patient did require physical hold escort him out of a room that he jumped in other patient's room and on their bed while there were in it. There was no physical harm and the patient did leave the room his markedly impulsive with poor judgment remains on close observation has intermittently taken Haldol liquid pending civil commitment treatment plan there is a question of Servin order 01/22 The patient had been more agitated. We review his Servin order and we are increasing the Abilify up to 15 mg p.o. daily and adding Haldol p.r.n. since it is in his role years order. We needed to give him some p.r.n. at 14:00. 01/23 The patient is grossly psychotic disrobing and sexually disinhibited we are starting Haldol 2 mg p.o. t.i.d. to target psychosis as per court order treatment over objection order. 01/24 The patient remains very agitated and angry disruptive so we are increasing the Haldol from 2 mg to 5 mg p.o. t.i.d. with a backup IM if the patient refused as per court order. 01/25 we have increased the Haldol but still he is very psychotic and restless. Today he refused his blood work. He needed to be physically held twice. 01/26 the patient remains agitated at times but his last IM backup was yesterday. We are going to increase Abilify up to 20 mg daily to target mood lability and psychosis. 01/29/2024: Increase frequency of prn doses from tid to prn q 6mrs. Poor insight and unable to care for self 02/08 pt has not take any of mood stabilizer. continues to have poor sleep, intrusive and combative requiring IM medications, increase haldol 10mg po TID, back up IM. Will add ativan 1mg po TID, also back up IM. Labs show elevated CK 2300, BUN 20, Cr 1.80, unclear baseline Cr as he does have CKD. Discussed with hospitalist Dr. Gama, to give IV fluids and monitor labs tomorrow. LFTs also elevated suspect this is secondary to elevation in CK and should trend down as CK goes down. 02/09 still agitated, creatinine and CPK slightly high as yesterday, he removed his IV line there is no big difference with IV hydration. We are changing his community role years to have more options since it is not working Abilify and Haldol 02/10 3 chemical restraints yesterday. appears more combative, and somewhat more confused. Will decrease amount of benzo and antihistamine given to him as it seems to be backfiring. did discuss with ICU attending, Dr. Whiteside possibility of transferring there but they would like us to try IV depakote and exhaust all resources prior to considering transfer. Pt did take depakote springkle 1000mg with apple sauce with much encourage. 02/11 continue tx. 02/12 continue same treatment 01/14 continue with Abilify and other court order medications, we are Namenda and the court order. 02/14 Team report improvement today with pt having greater comfort and less agitation. [id number] the staff reported that the patient had been less violent in the last 24 hours 02/16 continue tx. will check depakote and ammonia on 02/17 in AM. 02/17 continue regime and plan of care 02/26/2024: Continue current regimen as per court order 03/03 continue tx. lactulose for now as we don't have new ammonia level, but will try to chack labs. 03/16- continue medications, held clonidine patch for today due to low BP. repeat labs. 03/17-continue plan of care 03/18- continue tx 03/19 continue same treatment 03/20 waiting for CBC, basic metabolic panel and ammonia level. Today he nearly choked with a grape. We are going to change his diet to chopped 03/21 patient had a fall and he was assessed. No injuries as per CT scan of head and pelvis. Again he refused again his blood work vital signs within normal limits. 03/22 keep same treatment 03/23 keep same treatment 03 24 24 Continue plan of care Depakote Tegretol Haldol carbamazepine 03/25/2024 Repeat swallowing study ordered he is already on ground diet consider lowering Haldol versus Cogentin generally try to avoid older man 03/26 lowered Haldol to 7.5 p.o. b.i.d. 03/27 start Abilify Maintena 400 IM, later on we stopped it since he was over-sedated. 03/28 monitor vital signs and we will order blood work for tomorrow morning. 03/29 keep same treatment. We are deferring Abilify Maintena since the patient is still sedated and looks slightly delirious. He has refused blood work 03/31 continue current tx. less combative but no improvement in mentation. grossly disorganized and non sensical. 04/01: court ordered meds- team reviewing and optimizing same. 04/02 continue tx. 04/03 keep same treatment, so far he had been more compliant with some of the medications in the last 3 days. 04/04 start Abilify Maintena 400 mg IM 04/05 keep Haldol as prescribed 04/06 keep same treatment 04/07 supportive treatment. no regime or plan changes Reason for continued inpatient stay Substantial Risk for: rapid decompensation Time Spent With Patient Time: Total time managing care of this patient today ____ minutes.
[2024-04-07] MEDS: LORazepam 1 MG TABLET 2 MG PO (19:44)
[2024-04-07 20:00] VITALS: RESP 16
[2024-04-08] MEDS: Haloperidol Lactate Oral Conc 10 MG/5 ML ORAL.CONC 5 MG PO (06:58)
[2024-04-08] MEDS: LORazepam 1 MG TABLET 2 MG PO ×2 (06:59→20:33)
[2024-04-08] MEDS: Cholecalciferol (Vitamin D3) 25 MCG TABLET 50 MCG PO (08:02)
[2024-04-08] MEDS: Haloperidol Lactate Oral Conc 10 MG/5 ML ORAL.CONC 7.5 MG PO ×2 (08:03→20:33)
[2024-04-08] MEDS: Atorvastatin Calcium 40 MG TABLET PO (08:03)
[2024-04-08] MEDS: Aspirin 81 MG TAB.CHEW PO (08:03)
[2024-04-08] MEDS: Valproic Acid Liquid 250 MG/5 ML SOLUTION 750 MG PO ×2 (08:03→20:32)
[2024-04-08] MEDS: carBAMazepine 200 MG TABLET PO ×2 (08:03→20:33)
[2024-04-08] MEDS: amLODIPine Besylate 10 MG TABLET PO (08:03)
[2024-04-08 08:55] VITALS: BP 120/62; PULSE 64; RESP 18; TEMP 36.4; O2SAT 100
--- NOTE | 2024-04-08 09:41 | HO.PSYCHPN ---
Subjective Subjective Date of Service: 04/08/24 Reason For Visit: Schizoaffective disorder Interim History: Pt seen, reviewed with his team. Team reports there are not new issues of concern today. Pt continues on one to one. He has refused his law draw today and is currently calm, resting and without agitation or aggressive sx. Medication Compliance: Intermittent Attending Groups: No Review of Systems Acute medical concerns: No Review of Systems Review of Systems Yes Unobtainable due to mental status Mental Status Exam Mental Status Exam Patient Appearance: Appropriate Patient Orientation: Person Level of Consciousness: Awake Patient Behavior: Guarded and Passive Mood Description: Withdrawn Affect Description: Blunted Patient Cognition Impaired: Yes Ability to Follow Directions: Fair Speech Pattern: Impoverished Hallucinations: None Delusions: Paranoid Ideation and Ideas of Reference Thought Process: Distracted and Slowed Thinking Thought Content: positive for [place] and positive for Poverty of Content Judgement: Poor Diagnostics Vital Signs (24Hr): Vital Signs - 24 hr 04/07/24 20:00 04/08/24 08:55 Temperature 97.6 F Pulse Rate 64 Respiratory Rate 16 18 Blood Pressure 120/62 Pulse Oximetry 100 Oxygen Delivery Method Room Air BMI result Body Mass Index 25.1 Labs 03/30/24 08:49 03/30/24 08:49 Imaging Radiology Impressions: ITS Impressions Chest X-Ray 03/20/24 08:33 IMPRESSION: Extremely limited exam. Only lateral views could be obtained. Suspect basilar airspace opacity, possibly pneumonia. Electronically signed by: Fortino Dumont MD 03/20/2024 10:10 AM EST RP Cervical Spine CT 03/21/24 11:18 IMPRESSION: 1. Allowing for suboptimal positioning, there is no CT evidence of acute cervical spine fracture or injury. 2. Degenerative changes with bulky ventral osteophytes spanning C4-C6, appearance in keeping with DISH. Electronically signed by: Fortino Dumont MD 03/21/2024 12:01 PM EST RP Head CT 03/21/24 11:18 IMPRESSION: 1. No acute intracranial abnormality. No acute fractures seen. 2. Stable chronic findings as discussed. Electronically signed by: Fortino Dumont MD 03/21/2024 11:54 AM EST RP Pelvis CT 03/21/24 11:18 IMPRESSION: 1. No acute bony abnormalities. No fractures. 2. Constipation with a large amount of stool in the rectum and sigmoid colon. 3. Mild thickening of the urinary bladder wall despite underdistention, nonspecific. Differential includes the detrusor hypertrophy, neurogenic bladder, or possibly cystitis. Electronically signed by: Fortino Dumont MD 03/21/2024 12:09 PM EST RP Head CT 03/28/24 09:37 IMPRESSION: No acute fracture, bony calvarium. No acute intracranial hemorrhage. Small vessel occlusive disease. Bifrontal bitemporal lobe atrophy. Electronically signed by: Juan Corrigan MD 03/28/2024 10:19 AM EST RP Medications Medications Current Medications Acetaminophen (Acetaminophen 325 Mg Tablet) 650 mg PO Q6H PRN PRN Reason: Headache/Pain Mild Scale (1-3) Last Admin: 01/17/24 23:53 Dose: 325 mg Al Hydroxide/Mg Hydroxide (Magnesium Hydrox/Alum Hydrox 30 Ml Oral.Susp) 30 ml PO Q6H PRN PRN Reason: Heartburn/Nausea Amlodipine Besylate (Amlodipine Besylate 10 Mg Tablet) 10 mg PO DAILY [facility]; Protocol Last Admin: 04/08/24 08:03 Dose: 10 mg Aripiprazole (Aripiprazole Er 400 Mg Suser.Syr) 400 mg IM Q30D [facility] Last Admin: 04/04/24 15:05 Dose: 400 mg Aspirin (Aspirin 81 Mg Tab.Chew) 81 mg PO DAILY [facility] Last Admin: 04/08/24 08:03 Dose: 81 mg Atorvastatin Calcium (Atorvastatin Calcium 40 Mg Tablet) 40 mg PO DAILY [facility] Last Admin: 04/08/24 08:03 Dose: 40 mg Carbamazepine (Carbamazepine 200 Mg Tablet) 200 mg PO BID [facility] Last Admin: 04/08/24 08:03 Dose: 200 mg Clonidine (Clonidine 0.2 Mg Patch.Tdwk) 0.2 mg TRANSDERMA Fr@0900 [facility]; Protocol Last Admin: 04/06/24 10:06 Dose: Not Given Ferrous Sulfate (Ferrous Sulfate 324 Mg Tablet.Dr) 324 mg PO BID [facility] Last Admin: 04/08/24 08:04 Dose: Not Given Haloperidol Lactate (Haloperidol Lactate Oral Conc 10 Mg/5 Ml Oral.Conc) 5 mg PO Q6H PRN PRN Reason: Psychosis or severe agitation Last Admin: 04/08/24 06:58 Dose: 5 mg Haloperidol Lactate (Haloperidol Lactate Oral Conc 10 Mg/5 Ml Oral.Conc) 7.5 mg PO BID [facility] Last Admin: 04/08/24 08:03 Dose: 7.5 mg Haloperidol Lactate (Haloperidol Lactate 5 Mg/Ml Vial) 7.5 mg IM BID PRN PRN Reason: Refusal of Court PO Haldol Last Admin: 03/31/24 09:27 Dose: 7.5 mg Lorazepam (Lorazepam 1 Mg Tablet) 2 mg PO Q6H PRN PRN Reason: agitation Last Admin: 04/08/24 06:59 Dose: 2 mg Magnesium Hydroxide (Milk Of Magnesia 30 Ml Oral.Susp) 30 ml PO DAILY PRN PRN Reason: Constipation Nicotine Polacrilex (Nicotine Polacrilex 2 Mg Gum) 2 mg BUCCAL Q2H PRN PRN Reason: Nicotine Cravings Trazodone HCl (Trazodone Hcl 50 Mg Tablet) 50 mg PO BEDTIME MRX1 PRN PRN Reason: Insomnia Last Admin: 04/07/24 19:44 Dose: 50 mg Valproic Acid (Valproic Acid Liquid 250 Mg/5 Ml Solution) 750 mg PO BID [facility] Last Admin: 04/08/24 08:03 Dose: 750 mg Vitamin D (Cholecalciferol (Vitamin D3) 25 Mcg Tablet) 50 mcg PO DAILY [facility] Last Admin: 04/08/24 08:02 Dose: 50 mcg Allergies Allergies Allergy/AdvReac Type Severity Reaction Status Date / Time lithium Allergy Unknown Verified 01/13/24 18:08 Assessment & Plan Assessment & Plan (1) Schizoaffective disorder, bipolar type: Status: Acute Code(s): F25.0 - Schizoaffective disorder, bipolar type (2) Hypertension: Status: Acute Code(s): I10 - Essential (primary) hypertension (3) Diabetes mellitus: Status: Acute Code(s): E11.9 - Type 2 diabetes mellitus without complications Plan 03/23 keep same treatment 68 yo from a detention with chronic psychotic disorder, refusing medication , elevated bp and disorganized and agitated behavior requiring psychiatric hospitalization and treatment not competent to sign cv. 01/14 continue to follow - gave lambs warning today- and he says the customer operations specialist will be a she- still refusing medications and quite psychotic takes alot of redirection to settle him poor adls- 01/15- Refuses meds, refuses hospitalist consult-second day File for Section Seven consideration on 01/17. Provide care as he will allow. 01/16: Depakote 250 mg bid Haldol, Lorazepam, Benadryl prn Section 7 to be filed 01/17 Message left for guardian. 01/17: Section [address] filed. . Court scheduled 01/26/24 Pt continues to refuse medicaitons. He is in need of full assist with ADL's and is incontinent. Pt transferred to [facility] this afternoon. 01/19/2024 Patient pending civil commitment loud agitated would not engage in any conversation with this copywriter non informational healing agitated verbally aggressive. Every attempt being made to get a copy of the patient's Servin order unclear why this has been so problematic. Encourage food and fluids 01/19 continue same treatment 01/21/24 Patient labile agitated intrusive close labs ordered in order to per to protect the community patient wandering into patient's rooms intrusive impulsive laying on another person's bed. Often hostile agitated posturing at times we are still pending copy of reported Servin order encourage p.o. compliance 01/22/2024 Patient did require physical hold escort him out of a room that he jumped in other patient's room and on their bed while there were in it. There was no physical harm and the patient did leave the room his markedly impulsive with poor judgment remains on close observation has intermittently taken Haldol liquid pending civil commitment treatment plan there is a question of Servin order 01/22 The patient had been more agitated. We review his Servin order and we are increasing the Abilify up to 15 mg p.o. daily and adding Haldol p.r.n. since it is in his role years order. We needed to give him some p.r.n. at 14:00. 01/23 The patient is grossly psychotic disrobing and sexually disinhibited we are starting Haldol 2 mg p.o. t.i.d. to target psychosis as per court order treatment over objection order. 01/24 The patient remains very agitated and angry disruptive so we are increasing the Haldol from 2 mg to 5 mg p.o. t.i.d. with a backup IM if the patient refused as per court order. 01/25 we have increased the Haldol but still he is very psychotic and restless. Today he refused his blood work. He needed to be physically held twice. 01/26 the patient remains agitated at times but his last IM backup was yesterday. We are going to increase Abilify up to 20 mg daily to target mood lability and psychosis. 01/29/2024: Increase frequency of prn doses from tid to prn q 6mrs. Poor insight and unable to care for self 02/08 pt has not take any of mood stabilizer. continues to have poor sleep, intrusive and combative requiring IM medications, increase haldol 10mg po TID, back up IM. Will add ativan 1mg po TID, also back up IM. Labs show elevated CK 2300, BUN 20, Cr 1.80, unclear baseline Cr as he does have CKD. Discussed with hospitalist Dr. Gama, to give IV fluids and monitor labs tomorrow. LFTs also elevated suspect this is secondary to elevation in CK and should trend down as CK goes down. 02/09 still agitated, creatinine and CPK slightly high as yesterday, he removed his IV line there is no big difference with IV hydration. We are changing his community role years to have more options since it is not working Abilify and Haldol 02/10 3 chemical restraints yesterday. appears more combative, and somewhat more confused. Will decrease amount of benzo and antihistamine given to him as it seems to be backfiring. did discuss with ICU attending, Dr. Whiteside possibility of transferring there but they would like us to try IV depakote and exhaust all resources prior to considering transfer. Pt did take depakote springkle 1000mg with apple sauce with much encourage. 02/11 continue tx. 02/12 continue same treatment 01/14 continue with Abilify and other court order medications, we are Namenda and the court order. 02/14 Team report improvement today with pt having greater comfort and less agitation. [id number] the staff reported that the patient had been less violent in the last 24 hours 02/16 continue tx. will check depakote and ammonia on 02/17 in AM. 02/17 continue regime and plan of care 02/26/2024: Continue current regimen as per court order 03/03 continue tx. lactulose for now as we don't have new ammonia level, but will try to chack labs. 03/16- continue medications, held clonidine patch for today due to low BP. repeat labs. 03/17-continue plan of care 03/18- continue tx 03/19 continue same treatment 03/20 waiting for CBC, basic metabolic panel and ammonia level. Today he nearly choked with a grape. We are going to change his diet to chopped 03/21 patient had a fall and he was assessed. No injuries as per CT scan of head and pelvis. Again he refused again his blood work vital signs within normal limits. 03/22 keep same treatment 03/23 keep same treatment 03 24 24 Continue plan of care Depakote Tegretol Haldol carbamazepine 03/25/2024 Repeat swallowing study ordered he is already on ground diet consider lowering Haldol versus Cogentin generally try to avoid older man 03/26 lowered Haldol to 7.5 p.o. b.i.d. 03/27 start Abilify Maintena 400 IM, later on we stopped it since he was over-sedated. 03/28 monitor vital signs and we will order blood work for tomorrow morning. 03/29 keep same treatment. We are deferring Abilify Maintena since the patient is still sedated and looks slightly delirious. He has refused blood work 03/31 continue current tx. less combative but no improvement in mentation. grossly disorganized and non sensical. 04/01: court ordered meds- team reviewing and optimizing same. 04/02 continue tx. 04/03 keep same treatment, so far he had been more compliant with some of the medications in the last 3 days. 04/04 start Abilify Maintena 400 mg IM 04/05 keep Haldol as prescribed 04/06 keep same treatment 04/08/24 continue current plan, regime Reason for continued inpatient stay Substantial Risk for: rapid decompensation Time Spent With Patient Time: Total time managing care of this patient today ____ minutes.
[2024-04-08] MEDS: traZODone HCL 50 MG TABLET PO ×2 (20:33→22:04)
[2024-04-09 07:55] VITALS: BP 141/68; TEMP 36.8
[2024-04-09] MEDS: Haloperidol Lactate Oral Conc 10 MG/5 ML ORAL.CONC 7.5 MG PO ×2 (08:24→21:48)
[2024-04-09] MEDS: carBAMazepine 200 MG TABLET PO ×2 (08:24→21:48)
[2024-04-09] MEDS: Cholecalciferol (Vitamin D3) 25 MCG TABLET 50 MCG PO (08:24)
[2024-04-09] MEDS: Aspirin 81 MG TAB.CHEW PO (08:24)
[2024-04-09] MEDS: Atorvastatin Calcium 40 MG TABLET PO (08:24)
[2024-04-09] MEDS: amLODIPine Besylate 10 MG TABLET PO (08:24)
[2024-04-09] MEDS: Valproic Acid Liquid 250 MG/5 ML SOLUTION 750 MG PO ×2 (08:24→21:48)
--- NOTE | 2024-04-09 08:29 | P.PNPSI_ITS ---
Subjective Subjective Date of Service: 04/09/24 Reason For Visit: Schizoaffective disorder Interim History: Pt sustained a fall this a.m. with resulting hematoma to right eyebrow. CAT completed. Hospitalist consult requested as well One to one in place with pt who is calm, resting when seen Review of Systems Acute medical concerns: Yes Review of Systems Review of Systems s/p fall Mental Status Exam Mental Status Exam Patient Behavior: Asleep Diagnostics Vital Signs (24Hr): Vital Signs - 24 hr 04/08/24 08:55 Temperature 97.6 F Pulse Rate 64 Respiratory Rate 18 Blood Pressure 120/62 Pulse Oximetry 100 Oxygen Delivery Method Room Air BMI result Body Mass Index 25.1 Labs 03/30/24 08:49 03/30/24 08:49 Imaging Radiology Impressions: ITS Impressions Chest X-Ray 03/20/24 08:33 IMPRESSION: Extremely limited exam. Only lateral views could be obtained. Suspect basilar airspace opacity, possibly pneumonia. Electronically signed by: Fortino Dumont MD 03/20/2024 10:10 AM EST RP Cervical Spine CT 03/21/24 11:18 IMPRESSION: 1. Allowing for suboptimal positioning, there is no CT evidence of acute cervical spine fracture or injury. 2. Degenerative changes with bulky ventral osteophytes spanning C4-C6, appearance in keeping with DISH. Electronically signed by: Fortino Dumont MD 03/21/2024 12:01 PM EST RP Head CT 03/21/24 11:18 IMPRESSION: 1. No acute intracranial abnormality. No acute fractures seen. 2. Stable chronic findings as discussed. Electronically signed by: Fortino Dumont MD 03/21/2024 11:54 AM EST RP Pelvis CT 03/21/24 11:18 IMPRESSION: 1. No acute bony abnormalities. No fractures. 2. Constipation with a large amount of stool in the rectum and sigmoid colon. 3. Mild thickening of the urinary bladder wall despite underdistention, nonspecific. Differential includes the detrusor hypertrophy, neurogenic bladder, or possibly cystitis. Electronically signed by: Fortino Dumont MD 03/21/2024 12:09 PM EST RP Head CT 03/28/24 09:37 IMPRESSION: No acute fracture, bony calvarium. No acute intracranial hemorrhage. Small vessel occlusive disease. Bifrontal bitemporal lobe atrophy. Electronically signed by: Juan Corrigan MD 03/28/2024 10:19 AM [facility] Medications Medications Current Medications Acetaminophen (Acetaminophen 325 Mg Tablet) 650 mg PO Q6H PRN PRN Reason: Headache/Pain Mild Scale (1-3) Last Admin: 01/17/24 23:53 Dose: 325 mg Al Hydroxide/Mg Hydroxide (Magnesium Hydrox/Alum Hydrox 30 Ml Oral.Susp) 30 ml PO Q6H PRN PRN Reason: Heartburn/Nausea Amlodipine Besylate (Amlodipine Besylate 10 Mg Tablet) 10 mg PO DAILY [facility]; Protocol Last Admin: 04/09/24 08:24 Dose: 10 mg Aripiprazole (Aripiprazole Er 400 Mg Suser.Syr) 400 mg IM Q30D [facility] Last Admin: 04/04/24 15:05 Dose: 400 mg Aspirin (Aspirin 81 Mg Tab.Chew) 81 mg PO DAILY [facility] Last Admin: 04/09/24 08:24 Dose: 81 mg Atorvastatin Calcium (Atorvastatin Calcium 40 Mg Tablet) 40 mg PO DAILY [facility] Last Admin: 04/09/24 08:24 Dose: 40 mg Carbamazepine (Carbamazepine 200 Mg Tablet) 200 mg PO BID [facility] Last Admin: 04/09/24 08:24 Dose: 200 mg Clonidine (Clonidine 0.2 Mg Patch.Tdwk) 0.2 mg TRANSDERMA Fr@0900 [facility]; Protocol Last Admin: 04/06/24 10:06 Dose: Not Given Ferrous Sulfate (Ferrous Sulfate 324 Mg Tablet.) 324 mg PO BID [facility] Last Admin: 04/09/24 08:25 Dose: Not Given Haloperidol Lactate (Haloperidol Lactate Oral Conc 10 Mg/5 Ml Oral.Conc) 5 mg PO Q6H PRN PRN Reason: Psychosis or severe agitation Last Admin: 04/08/24 06:58 Dose: 5 mg Haloperidol Lactate (Haloperidol Lactate Oral Conc 10 Mg/5 Ml Oral.Conc) 7.5 mg PO BID [facility] Last Admin: 04/09/24 08:24 Dose: 7.5 mg Haloperidol Lactate (Haloperidol Lactate 5 Mg/Ml Vial) 7.5 mg IM BID PRN PRN Reason: Refusal of Court PO Haldol Last Admin: 03/31/24 09:27 Dose: 7.5 mg Lorazepam (Lorazepam 1 Mg Tablet) 2 mg PO Q6H PRN PRN Reason: agitation Last Admin: 04/08/24 20:33 Dose: 2 mg Magnesium Hydroxide (Milk Of Magnesia 30 Ml Oral.Susp) 30 ml PO DAILY PRN PRN Reason: Constipation Nicotine Polacrilex (Nicotine Polacrilex 2 Mg Gum) 2 mg BUCCAL Q2H PRN PRN Reason: Nicotine Cravings Trazodone HCl (Trazodone Hcl 50 Mg Tablet) 50 mg PO BEDTIME MRX1 PRN PRN Reason: Insomnia Last Admin: 04/08/24 22:04 Dose: 50 mg Valproic Acid (Valproic Acid Liquid 250 Mg/5 Ml Solution) 750 mg PO BID [facility] Last Admin: 04/09/24 08:24 Dose: 750 mg Vitamin D (Cholecalciferol (Vitamin D3) 25 Mcg Tablet) 50 mcg PO DAILY [facility] Last Admin: 04/09/24 08:24 Dose: 50 mcg Allergies Allergies Allergy/AdvReac Type Severity Reaction Status Date / Time lithium Allergy Unknown Verified 01/13/24 18:08 Assessment & Plan Assessment & Plan (1) Schizoaffective disorder, bipolar type: Status: Acute Code(s): F25.0 - Schizoaffective disorder, bipolar type (2) Hypertension: Status: Acute Code(s): I10 - Essential (primary) hypertension (3) Diabetes mellitus: Status: Acute Code(s): E11.9 - Type 2 diabetes mellitus without complications Plan 03/23 keep same treatment 68 yo from a care home with chronic psychotic disorder, refusing medication , elevated bp and disorganized and agitated behavior requiring psychiatric hospitalization and treatment not competent to sign cv. 01/14 continue to follow - gave lambs warning today- and he says the used equipment sales representative will be a she- still refusing medications and quite psychotic takes alot of redirection to settle him poor adls- 01/15- Refuses meds, refuses hospitalist consult-second day File for Section Seven consideration on 01/17. Provide care as he will allow. 01/16: Depakote 250 mg bid Haldol, Lorazepam, Benadryl prn Section 7 to be filed 01/17 Message left for guardian. 01/17: Section [address] filed. . Court scheduled 01/26/24 Pt continues to refuse medicaitons. He is in need of full assist with ADL's and is incontinent. Pt transferred to [facility] this afternoon. 01/19/2024 Patient pending civil commitment loud agitated would not engage in any conversation with this senior medical writer non informational healing agitated verbally aggressive. Every attempt being made to get a copy of the patient's Servin order unclear why this has been so problematic. Encourage food and fluids 01/19 continue same treatment 01/21/24 Patient labile agitated intrusive close labs ordered in order to per to protect the community patient wandering into patient's rooms intrusive impulsive laying on another person's bed. Often hostile agitated posturing at times we are still pending copy of reported Servin order encourage p.o. compliance 01/22/2024 Patient did require physical hold escort him out of a room that he jumped in other patient's room and on their bed while there were in it. There was no physical harm and the patient did leave the room his markedly impulsive with poor judgment remains on close observation has intermittently taken Haldol liquid pending civil commitment treatment plan there is a question of Servin order 01/22 The patient had been more agitated. We review his Servin order and we are increasing the Abilify up to 15 mg p.o. daily and adding Haldol p.r.n. since it is in his role years order. We needed to give him some p.r.n. at 14:00. 01/23 The patient is grossly psychotic disrobing and sexually disinhibited we are starting Haldol 2 mg p.o. t.i.d. to target psychosis as per court order treatment over objection order. 01/24 The patient remains very agitated and angry disruptive so we are increasing the Haldol from 2 mg to 5 mg p.o. t.i.d. with a backup IM if the patient refused as per court order. 01/25 we have increased the Haldol but still he is very psychotic and restless. Today he refused his blood work. He needed to be physically held twice. 01/26 the patient remains agitated at times but his last IM backup was yesterday. We are going to increase Abilify up to 20 mg daily to target mood lability and psychosis. 01/29/2024: Increase frequency of prn doses from tid to prn q 6mrs. Poor insight and unable to care for self 02/08 pt has not take any of mood stabilizer. continues to have poor sleep, intrusive and combative requiring IM medications, increase haldol 10mg po TID, back up IM. Will add ativan 1mg po TID, also back up IM. Labs show elevated CK 2300, BUN 20, Cr 1.80, unclear baseline Cr as he does have CKD. Discussed with hospitalist Dr. Gama, to give IV fluids and monitor labs tomorrow. LFTs also elevated suspect this is secondary to elevation in CK and should trend down as CK goes down. 02/09 still agitated, creatinine and CPK slightly high as yesterday, he removed his IV line there is no big difference with IV hydration. We are changing his community role years to have more options since it is not working Abilify and Haldol 02/10 3 chemical restraints yesterday. appears more combative, and somewhat more confused. Will decrease amount of benzo and antihistamine given to him as it seems to be backfiring. did discuss with ICU attending, Dr. Whiteside possibility of transferring there but they would like us to try IV depakote and exhaust all resources prior to considering transfer. Pt did take depakote springkle 1000mg with apple sauce with much encourage. 02/11 continue tx. 02/12 continue same treatment 01/14 continue with Abilify and other court order medications, we are Namenda and the court order. 02/14 Team report improvement today with pt having greater comfort and less agitation. 1126 the staff reported that the patient had been less violent in the last 24 hours 02/16 continue tx. will check depakote and ammonia on 02/17 in AM. 02/17 continue regime and plan of care 02/26/2024: Continue current regimen as per court order 03/03 continue tx. lactulose for now as we don't have new ammonia level, but will try to chack labs. 03/16- continue medications, held clonidine patch for today due to low BP. repeat labs. 03/17-continue plan of care 03/18- continue tx 03/19 continue same treatment 03/20 waiting for CBC, basic metabolic panel and ammonia level. Today he nearly choked with a grape. We are going to change his diet to chopped 03/21 patient had a fall and he was assessed. No injuries as per CT scan of head and pelvis. Again he refused again his blood work vital signs within normal limits. 03/22 keep same treatment 03/23 keep same treatment 03 24 24 Continue plan of care Depakote Tegretol Haldol carbamazepine 03/25/2024 Repeat swallowing study ordered he is already on ground diet consider lowering Haldol versus Cogentin generally try to avoid older man 03/26 lowered Haldol to 7.5 p.o. b.i.d. 03/27 start Abilify Maintena 400 IM, later on we stopped it since he was over- sedated. 03/28 monitor vital signs and we will order blood work for tomorrow morning. 03/29 keep same treatment. We are deferring Abilify Maintena since the patient is still sedated and looks slightly delirious. He has refused blood work 03/31 continue current tx. less combative but no improvement in mentation. grossly disorganized and non sensical. 04/01: court ordered meds- team reviewing and optimizing same. 04/02 continue tx. 04/03 keep same treatment, so far he had been more compliant with some of the medications in the last 3 days. 04/04 start Abilify Maintena 400 mg IM 04/05 keep Haldol as prescribed 04/06 keep same treatment 04/08/24 continue current plan, regime 04/09/24 continue plan, CAT pending Reason for continued inpatient stay Substantial Risk for: rapid decompensation Time Spent With Patient Time: Total time managing care of this patient today ____ minutes.
--- NOTE | 2024-04-09 09:26 | PC.NURSE ---
Pt had a witnessed fall at 08:30 am, He tried to get OOB and fell to the floor hitting his head. Hematoma noted to Right eyebrow. VSS, Neuro's - PERRLA. provider notified and Ct scan ordered. will continue to monitor and assess.
[2024-04-09] MEDS: LORazepam 1 MG TABLET 2 MG PO ×2 (14:23→23:06)
[2024-04-09] MEDS: Haloperidol Lactate Oral Conc 10 MG/5 ML ORAL.CONC 5 MG PO (14:23)
--- NOTE | 2024-04-09 14:43 | P.EN_ITS ---
Event Note Date of Service: 04/09/24 Event Note: Pt is a 68-year-old male admitted to [facility] with hospitalist consult for left orbital hematoma after witnessed fall climbing out of bed. Pt apparently struck the right side of his head above his eye on the bed railing as he was attempting to climb out of bed. Pt with a long hx of agitated and aggressive behavior that has required multiple chemical and physical restraints. Pt seen and evaluated in his room where he is resting in bed and mildly agitat ed. Pt noted to have hematoma above his right eye. Pt not following commands but in no obvious discomfort/pain and EOM appear intact. Nursing and sitter report pt appears at baseline. CT of head taken and results pending. Quick review does not show any obvious acute abnormality, but will await official read. In the meantime treat conservatively with cool compresses and analgesics. If any acute changes to patient's condition please contact hospitalist services for further evaluation. Time Spent With Patient Time: Total time managing care of this patient today ____ minutes.
[2024-04-09 20:00] VITALS: BP 135/66; PULSE 96; RESP 16; TEMP 36.3; O2SAT 95
[2024-04-09] MEDS: traZODone HCL 50 MG TABLET PO ×2 (21:48→23:06)
[2024-04-10 08:00] VITALS: BP 136/63; PULSE 62; RESP 18; TEMP 36; O2SAT 96
[2024-04-10] MEDS: Haloperidol Lactate Oral Conc 10 MG/5 ML ORAL.CONC 7.5 MG PO ×2 (08:04→21:36)
[2024-04-10] MEDS: Valproic Acid Liquid 250 MG/5 ML SOLUTION 750 MG PO ×2 (08:04→21:35)
[2024-04-10 08:05] VITALS: BP 136/63
[2024-04-10] MEDS: amLODIPine Besylate 10 MG TABLET PO (08:05)
[2024-04-10] MEDS: Cholecalciferol (Vitamin D3) 25 MCG TABLET 50 MCG PO (08:05)
[2024-04-10] MEDS: Aspirin 81 MG TAB.CHEW PO (08:05)
[2024-04-10] MEDS: Ferrous Sulfate 324 MG TABLET.DR PO (08:05)
[2024-04-10] MEDS: carBAMazepine 200 MG TABLET PO (08:05)
[2024-04-10] MEDS: Atorvastatin Calcium 40 MG TABLET PO (08:05)
--- NOTE | 2024-04-10 11:35 | HO.PSYCHPN ---
Subjective Subjective Date of Service: 04/10/24 Reason For Visit: Schizoaffective disorder Subjective Notes: Section 7 and Section 8 Interim History: The nursing staff reported the patient fell last night from the bed. He has a hematoma on his right eye and he slept well last night. He was fully workout and so far stable. On interview the patient refused to engage he said that he is doing fine. He looks grossly disorganized. Mental Status Exam Mental Status Exam Patient Appearance: Appropriate Patient Orientation: Person Level of Consciousness: Sedated and Disoriented Patient Behavior: Guarded and Passive Mood Description: Withdrawn Affect Description: Constricted Patient Cognition Impaired: Yes Ability to Follow Directions: Good Speech Pattern: Clear Hallucinations: None Delusions: Paranoid Ideation and Ideas of Reference Thought Process: Distracted and Slowed Thinking Thought Content: positive for [place] and positive for Poverty of Content Judgement: Poor Diagnostics Vital Signs (24Hr): Vital Signs - 24 hr 04/09/24 20:00 04/10/24 08:00 04/10/24 08:05 Temperature 97.3 F 96.8 F Pulse Rate 96 62 Respiratory Rate 16 18 Blood Pressure 135/66 136/63 136/63 Pulse Oximetry 95 96 Oxygen Delivery Method Room Air Room Air BMI result Body Mass Index 25.1 Labs 03/30/24 08:49 03/30/24 08:49 Imaging Radiology Impressions: ITS Impressions Chest X-Ray 03/20/24 08:33 IMPRESSION: Extremely limited exam. Only lateral views could be obtained. Suspect basilar airspace opacity, possibly pneumonia. Electronically signed by: Fortino Dumont MD 03/20/2024 10:10 AM EST RP Cervical Spine CT 03/21/24 11:18 IMPRESSION: 1. Allowing for suboptimal positioning, there is no CT evidence of acute cervical spine fracture or injury. 2. Degenerative changes with bulky ventral osteophytes spanning C4-C6, appearance in keeping with DISH. Electronically signed by: Fortino Dumont MD 03/21/2024 12:01 PM EST RP Head CT 03/21/24 11:18 IMPRESSION: 1. No acute intracranial abnormality. No acute fractures seen. 2. Stable chronic findings as discussed. Electronically signed by: Fortino Dumont MD 03/21/2024 11:54 AM EST RP Pelvis CT 03/21/24 11:18 IMPRESSION: 1. No acute bony abnormalities. No fractures. 2. Constipation with a large amount of stool in the rectum and sigmoid colon. 3. Mild thickening of the urinary bladder wall despite underdistention, nonspecific. Differential includes the detrusor hypertrophy, neurogenic bladder, or possibly cystitis. Electronically signed by: Fortino Dumont MD 03/21/2024 12:09 PM EST RP Head CT 03/28/24 09:37 IMPRESSION: No acute fracture, bony calvarium. No acute intracranial hemorrhage. Small vessel occlusive disease. Bifrontal bitemporal lobe atrophy. Electronically signed by: Juan Corrigan MD 03/28/2024 10:19 AM EST RP Medications Medications Current Medications Acetaminophen (Acetaminophen 325 Mg Tablet) 650 mg PO Q6H PRN PRN Reason: Headache/Pain Mild Scale (1-3) Last Admin: 01/17/24 23:53 Dose: 325 mg Al Hydroxide/Mg Hydroxide (Magnesium Hydrox/Alum Hydrox 30 Ml Oral.Susp) 30 ml PO Q6H PRN PRN Reason: Heartburn/Nausea Amlodipine Besylate (Amlodipine Besylate 10 Mg Tablet) 10 mg PO DAILY [facility]; Protocol Last Admin: 04/10/24 08:05 Dose: 10 mg Aripiprazole (Aripiprazole Er 400 Mg Suser.Syr) 400 mg IM Q30D [facility] Last Admin: 04/04/24 15:05 Dose: 400 mg Aspirin (Aspirin 81 Mg Tab.Chew) 81 mg PO DAILY [facility] Last Admin: 04/10/24 08:05 Dose: 81 mg Atorvastatin Calcium (Atorvastatin Calcium 40 Mg Tablet) 40 mg PO DAILY [facility] Last Admin: 04/10/24 08:05 Dose: 40 mg Carbamazepine (Carbamazepine 200 Mg Tablet) 200 mg PO BID [facility] Last Admin: 04/10/24 08:05 Dose: 200 mg Clonidine (Clonidine 0.2 Mg Patch.Tdwk) 0.2 mg TRANSDERMA Fr@0900 [facility]; Protocol Last Admin: 04/06/24 10:06 Dose: Not Given Ferrous Sulfate (Ferrous Sulfate 324 Mg Tablet.Dr) 324 mg PO BID [facility] Last Admin: 04/10/24 08:05 Dose: 324 mg Haloperidol Lactate (Haloperidol Lactate Oral Conc 10 Mg/5 Ml Oral.Conc) 5 mg PO Q6H PRN PRN Reason: Psychosis or severe agitation Last Admin: 04/09/24 14:23 Dose: 5 mg Haloperidol Lactate (Haloperidol Lactate Oral Conc 10 Mg/5 Ml Oral.Conc) 7.5 mg PO BID [facility] Last Admin: 04/10/24 08:04 Dose: 7.5 mg Haloperidol Lactate (Haloperidol Lactate 5 Mg/Ml Vial) 7.5 mg IM BID PRN PRN Reason: Refusal of Court PO Haldol Last Admin: 03/31/24 09:27 Dose: 7.5 mg Lorazepam (Lorazepam 1 Mg Tablet) 2 mg PO Q6H PRN PRN Reason: agitation Last Admin: 04/09/24 23:06 Dose: 2 mg Magnesium Hydroxide (Milk Of Magnesia 30 Ml Oral.Susp) 30 ml PO DAILY PRN PRN Reason: Constipation Nicotine Polacrilex (Nicotine Polacrilex 2 Mg Gum) 2 mg BUCCAL Q2H PRN PRN Reason: Nicotine Cravings Trazodone HCl (Trazodone Hcl 50 Mg Tablet) 50 mg PO BEDTIME MRX1 PRN PRN Reason: Insomnia Last Admin: 04/09/24 23:06 Dose: 50 mg Valproic Acid (Valproic Acid Liquid 250 Mg/5 Ml Solution) 750 mg PO BID [facility] Last Admin: 04/10/24 08:04 Dose: 750 mg Vitamin D (Cholecalciferol (Vitamin D3) 25 Mcg Tablet) 50 mcg PO DAILY [facility] Last Admin: 04/10/24 08:05 Dose: 50 mcg Allergies Allergies Allergy/AdvReac Type Severity Reaction Status Date / Time lithium Allergy Unknown Verified 01/13/24 18:08 Assessment & Plan Assessment & Plan (1) Schizoaffective disorder, bipolar type: Status: Acute Code(s): F25.0 - Schizoaffective disorder, bipolar type (2) Hypertension: Status: Acute Code(s): I10 - Essential (primary) hypertension (3) Diabetes mellitus: Status: Acute Code(s): E11.9 - Type 2 diabetes mellitus without complications Plan 03/23 keep same treatment 68 yo from a prison with chronic psychotic disorder, refusing medication , elevated bp and disorganized and agitated behavior requiring psychiatric hospitalization and treatment not competent to sign cv. 01/14 continue to follow - gave lambs warning today- and he says the motorcycle racer will be a she- still refusing medications and quite psychotic takes alot of redirection to settle him poor adls- 01/15- Refuses meds, refuses hospitalist consult-second day File for Section Seven consideration on 01/17. Provide care as he will allow. 01/16: Depakote 250 mg bid Haldol, Lorazepam, Benadryl prn Section 7 to be filed 01/17 Message left for guardian. 01/17: Section Seven filed. . Court scheduled 01/26/24 Pt continues to refuse medicaitons. He is in need of full assist with ADL's and is incontinent. Pt transferred to [facility] this afternoon. 01/19/2024 Patient pending civil commitment loud agitated would not engage in any conversation with this policy writer sales non informational healing agitated verbally aggressive. Every attempt being made to get a copy of the patient's Servin order unclear why this has been so problematic. Encourage food and fluids 01/19 continue same treatment 01/21/24 Patient labile agitated intrusive close labs ordered in order to per to protect the community patient wandering into patient's rooms intrusive impulsive laying on another person's bed. Often hostile agitated posturing at times we are still pending copy of reported Servin order encourage p.o. compliance 01/22/2024 Patient did require physical hold escort him out of a room that he jumped in other patient's room and on their bed while there were in it. There was no physical harm and the patient did leave the room his markedly impulsive with poor judgment remains on close observation has intermittently taken Haldol liquid pending civil commitment treatment plan there is a question of Servin order 01/22 The patient had been more agitated. We review his Servin order and we are increasing the Abilify up to 15 mg p.o. daily and adding Haldol p.r.n. since it is in his role years order. We needed to give him some p.r.n. at 14:00. 01/23 The patient is grossly psychotic disrobing and sexually disinhibited we are starting Haldol 2 mg p.o. t.i.d. to target psychosis as per court order treatment over objection order. 01/24 The patient remains very agitated and angry disruptive so we are increasing the Haldol from 2 mg to 5 mg p.o. t.i.d. with a backup IM if the patient refused as per court order. 01/25 we have increased the Haldol but still he is very psychotic and restless. Today he refused his blood work. He needed to be physically held twice. 01/26 the patient remains agitated at times but his last IM backup was yesterday. We are going to increase Abilify up to 20 mg daily to target mood lability and psychosis. 01/29/2024: Increase frequency of prn doses from tid to prn q 6mrs. Poor insight and unable to care for self 02/08 pt has not take any of mood stabilizer. continues to have poor sleep, intrusive and combative requiring IM medications, increase haldol 10mg po TID, back up IM. Will add ativan 1mg po TID, also back up IM. Labs show elevated CK 2300, BUN 20, Cr 1.80, unclear baseline Cr as he does have CKD. Discussed with hospitalist Dr. Gama, to give IV fluids and monitor labs tomorrow. LFTs also elevated suspect this is secondary to elevation in CK and should trend down as CK goes down. 02/09 still agitated, creatinine and CPK slightly high as yesterday, he removed his IV line there is no big difference with IV hydration. We are changing his community role years to have more options since it is not working Abilify and Haldol 02/10 3 chemical restraints yesterday. appears more combative, and somewhat more confused. Will decrease amount of benzo and antihistamine given to him as it seems to be backfiring. did discuss with ICU attending, Dr. Whiteside possibility of transferring there but they would like us to try IV depakote and exhaust all resources prior to considering transfer. Pt did take depakote springkle 1000mg with apple sauce with much encourage. 02/11 continue tx. 02/12 continue same treatment 01/14 continue with Abilify and other court order medications, we are Namenda and the court order. 02/14 Team report improvement today with pt having greater comfort and less agitation. [id number] the staff reported that the patient had been less violent in the last 24 hours 02/16 continue tx. will check depakote and ammonia on 02/17 in AM. 02/17 continue regime and plan of care 02/26/2024: Continue current regimen as per court order 03/03 continue tx. lactulose for now as we don't have new ammonia level, but will try to chack labs. 03/16- continue medications, held clonidine patch for today due to low BP. repeat labs. 03/17-continue plan of care 03/18- continue tx 03/19 continue same treatment 03/20 waiting for CBC, basic metabolic panel and ammonia level. Today he nearly choked with a grape. We are going to change his diet to chopped 03/21 patient had a fall and he was assessed. No injuries as per CT scan of head and pelvis. Again he refused again his blood work vital signs within normal limits. 03/22 keep same treatment 03/23 keep same treatment 03 24 24 Continue plan of care Depakote Tegretol Haldol carbamazepine 03/25/2024 Repeat swallowing study ordered he is already on ground diet consider lowering Haldol versus Cogentin generally try to avoid older man 03/26 lowered Haldol to 7.5 p.o. b.i.d. 03/27 start Abilify Maintena 400 IM, later on we stopped it since he was over-sedated. 03/28 monitor vital signs and we will order blood work for tomorrow morning. 03/29 keep same treatment. We are deferring Abilify Maintena since the patient is still sedated and looks slightly delirious. He has refused blood work 03/31 continue current tx. less combative but no improvement in mentation. grossly disorganized and non sensical. 04/01: court ordered meds- team reviewing and optimizing same. 04/02 continue tx. 04/03 keep same treatment, so far he had been more compliant with some of the medications in the last 3 days. 04/04 start Abilify Maintena 400 mg IM 04/05 keep Haldol as prescribed 04/06 keep same treatment 04/08/24 continue current plan, regime 04/09/24 continue plan, CAT pending 04/10 continue same treatment Reason for continued inpatient stay Substantial Risk for: inability to function, rapid decompensation and med/psych decompensation Time Spent With Patient Time: Total time managing care of this patient today __20__ minutes.
--- NOTE | 2024-04-10 11:55 | MHC.SLORD ---
Speech Language Pathology Order Status: PHARMACOLOGIST arrived for lunch, per nursing staff, patient not yet up for his meal. He continues on [facility] altered diet (NDD2) and thin liquids. Plan to re-attempt tomorrow, please contact PHARMACOLOGIST via [place] Message or ext. [phone] if patient is able to participate sooner.
[2024-04-10] MEDS: LORazepam 1 MG TABLET 2 MG PO ×2 (13:38→21:40)
[2024-04-10 20:00] VITALS: BP 123/71; PULSE 67; RESP 16; TEMP 36.2; O2SAT 100
[2024-04-10] MEDS: traZODone HCL 50 MG TABLET PO (21:37)
[2024-04-11] MEDS: LORazepam 1 MG TABLET 2 MG PO ×2 (04:55→14:59)
[2024-04-11] MEDS: Haloperidol Lactate Oral Conc 10 MG/5 ML ORAL.CONC 5 MG PO (04:56)
[2024-04-11 08:00] VITALS: RESP 18
[2024-04-11] MEDS: Atorvastatin Calcium 40 MG TABLET PO (08:11)
[2024-04-11] MEDS: Aspirin 81 MG TAB.CHEW PO (08:11)
[2024-04-11] MEDS: Cholecalciferol (Vitamin D3) 25 MCG TABLET 50 MCG PO (08:11)
[2024-04-11] MEDS: carBAMazepine 200 MG TABLET PO ×2 (08:12→20:39)
[2024-04-11] MEDS: Valproic Acid Liquid 250 MG/5 ML SOLUTION 750 MG PO ×2 (08:12→20:38)
[2024-04-11] MEDS: Haloperidol Lactate Oral Conc 10 MG/5 ML ORAL.CONC 7.5 MG PO ×2 (08:12→20:37)
--- NOTE | 2024-04-11 13:17 | HO.PSYCHPN ---
Subjective Subjective Date of Service: 04/11/24 Reason For Visit: Schizoaffective disorder Subjective Notes: Section 7 and Section 8 Interim History: The patient has remain most of the time on his bed, he had a CT scan after the last fall and he has been on 1:1 for safety. On interview, he denies new symptoms, hypoactive, already cleared by medicine after the fall. Mental Status Exam Mental Status Exam Patient Appearance: Unkempt Patient Orientation: Person and Situation Level of Consciousness: Awake and Appropriate Patient Behavior: Guarded and Passive Mood Description: Calm Affect Description: Blunted Patient Cognition Impaired: Yes Ability to Follow Directions: Good Speech Pattern: Clear Hallucinations: None Delusions: Ideas of Reference Thought Process: Illogical Thought Content: positive for [place] and positive for Poverty of Content Judgement: Poor Diagnostics Vital Signs (24Hr): Vital Signs - 24 hr 04/10/24 20:00 04/11/24 08:00 Temperature 97.1 F Pulse Rate 67 Respiratory Rate 16 18 Blood Pressure 123/71 Pulse Oximetry 100 Oxygen Delivery Method Room Air BMI result Body Mass Index 25.1 Labs 03/30/24 08:49 03/30/24 08:49 Imaging Radiology Impressions: ITS Impressions Chest X-Ray 03/20/24 08:33 IMPRESSION: Extremely limited exam. Only lateral views could be obtained. Suspect basilar airspace opacity, possibly pneumonia. Electronically signed by: Fortino Dumont MD 03/20/2024 10:10 AM EST RP Cervical Spine CT 03/21/24 11:18 IMPRESSION: 1. Allowing for suboptimal positioning, there is no CT evidence of acute cervical spine fracture or injury. 2. Degenerative changes with bulky ventral osteophytes spanning C4-C6, appearance in keeping with DISH. Electronically signed by: Fortino Dumont MD 03/21/2024 12:01 PM EST RP Head CT 03/21/24 11:18 IMPRESSION: 1. No acute intracranial abnormality. No acute fractures seen. 2. Stable chronic findings as discussed. Electronically signed by: Fortino Dumont MD 03/21/2024 11:54 AM EST RP Pelvis CT 03/21/24 11:18 IMPRESSION: 1. No acute bony abnormalities. No fractures. 2. Constipation with a large amount of stool in the rectum and sigmoid colon. 3. Mild thickening of the urinary bladder wall despite underdistention, nonspecific. Differential includes the detrusor hypertrophy, neurogenic bladder, or possibly cystitis. Electronically signed by: Fortino Dumont MD 03/21/2024 12:09 PM EST RP Head CT 03/28/24 09:37 IMPRESSION: No acute fracture, bony calvarium. No acute intracranial hemorrhage. Small vessel occlusive disease. Bifrontal bitemporal lobe atrophy. Electronically signed by: Juan Corrigan MD 03/28/2024 10:19 AM EST RP Medications Medications Current Medications Acetaminophen (Acetaminophen 325 Mg Tablet) 650 mg PO Q6H PRN PRN Reason: Headache/Pain Mild Scale (1-3) Last Admin: 01/17/24 23:53 Dose: 325 mg Al Hydroxide/Mg Hydroxide (Magnesium Hydrox/Alum Hydrox 30 Ml Oral.Susp) 30 ml PO Q6H PRN PRN Reason: Heartburn/Nausea Amlodipine Besylate (Amlodipine Besylate 10 Mg Tablet) 10 mg PO DAILY [facility]; Protocol Last Admin: 04/11/24 09:17 Dose: Not Given Aripiprazole (Aripiprazole Er 400 Mg Suser.Syr) 400 mg IM Q30D [facility] Last Admin: 04/04/24 15:05 Dose: 400 mg Aspirin (Aspirin 81 Mg Tab.Chew) 81 mg PO DAILY [facility] Last Admin: 04/11/24 08:11 Dose: 81 mg Atorvastatin Calcium (Atorvastatin Calcium 40 Mg Tablet) 40 mg PO DAILY [facility] Last Admin: 04/11/24 08:11 Dose: 40 mg Carbamazepine (Carbamazepine 200 Mg Tablet) 200 mg PO BID [facility] Last Admin: 04/11/24 08:12 Dose: 200 mg Clonidine (Clonidine 0.2 Mg Patch.Tdwk) 0.2 mg TRANSDERMA Fr@0900 [facility]; Protocol Last Admin: 04/06/24 10:06 Dose: Not Given Ferrous Sulfate (Ferrous Sulfate 324 Mg Tablet.Dr) 324 mg PO BID [facility] Last Admin: 04/11/24 09:18 Dose: Not Given Haloperidol Lactate (Haloperidol Lactate Oral Conc 10 Mg/5 Ml Oral.Conc) 5 mg PO Q6H PRN PRN Reason: Psychosis or severe agitation Last Admin: 04/11/24 04:56 Dose: 5 mg Haloperidol Lactate (Haloperidol Lactate Oral Conc 10 Mg/5 Ml Oral.Conc) 7.5 mg PO BID [facility] Last Admin: 04/11/24 08:12 Dose: 7.5 mg Haloperidol Lactate (Haloperidol Lactate 5 Mg/Ml Vial) 7.5 mg IM BID PRN PRN Reason: Refusal of Court PO Haldol Last Admin: 03/31/24 09:27 Dose: 7.5 mg Lorazepam (Lorazepam 1 Mg Tablet) 2 mg PO Q6H PRN PRN Reason: agitation Last Admin: 04/11/24 04:55 Dose: 2 mg Magnesium Hydroxide (Milk Of Magnesia 30 Ml Oral.Susp) 30 ml PO DAILY PRN PRN Reason: Constipation Nicotine Polacrilex (Nicotine Polacrilex 2 Mg Gum) 2 mg BUCCAL Q2H PRN PRN Reason: Nicotine Cravings Trazodone HCl (Trazodone Hcl 50 Mg Tablet) 50 mg PO BEDTIME MRX1 PRN PRN Reason: Insomnia Last Admin: 04/10/24 21:37 Dose: 50 mg Valproic Acid (Valproic Acid Liquid 250 Mg/5 Ml Solution) 750 mg PO BID [facility] Last Admin: 04/11/24 08:12 Dose: 750 mg Vitamin D (Cholecalciferol (Vitamin D3) 25 Mcg Tablet) 50 mcg PO DAILY [facility] Last Admin: 04/11/24 08:11 Dose: 50 mcg Allergies Allergies Allergy/AdvReac Type Severity Reaction Status Date / Time lithium Allergy Unknown Verified 01/13/24 18:08 Assessment & Plan Assessment & Plan (1) Schizoaffective disorder, bipolar type: Status: Acute Code(s): F25.0 - Schizoaffective disorder, bipolar type (2) Hypertension: Status: Acute Code(s): I10 - Essential (primary) hypertension (3) Diabetes mellitus: Status: Acute Code(s): E11.9 - Type 2 diabetes mellitus without complications Plan 03/23 keep same treatment 68 yo from a half-way with chronic psychotic disorder, refusing medication , elevated bp and disorganized and agitated behavior requiring psychiatric hospitalization and treatment not competent to sign cv. 01/14 continue to follow - gave lambs warning today- and he says the magistrate judge will be a she- still refusing medications and quite psychotic takes alot of redirection to settle him poor adls- 01/15- Refuses meds, refuses hospitalist consult-second day File for Section Seven consideration on 01/17. Provide care as he will allow. 01/16: Depakote 250 mg bid Haldol, Lorazepam, Benadryl prn Section 7 to be filed 01/17 Message left for guardian. 01/17: Section Seven filed. . Court scheduled 01/26/24 Pt continues to refuse medicaitons. He is in need of full assist with ADL's and is incontinent. Pt transferred to [facility] this afternoon. 01/19/2024 Patient pending civil commitment loud agitated would not engage in any conversation with this adjusto writer operator non informational healing agitated verbally aggressive. Every attempt being made to get a copy of the patient's Servin order unclear why this has been so problematic. Encourage food and fluids 01/19 continue same treatment 01/21/24 Patient labile agitated intrusive close labs ordered in order to per to protect the community patient wandering into patient's rooms intrusive impulsive laying on another person's bed. Often hostile agitated posturing at times we are still pending copy of reported Servin order encourage p.o. compliance 01/22/2024 Patient did require physical hold escort him out of a room that he jumped in other patient's room and on their bed while there were in it. There was no physical harm and the patient did leave the room his markedly impulsive with poor judgment remains on close observation has intermittently taken Haldol liquid pending civil commitment treatment plan there is a question of Servin order 01/22 The patient had been more agitated. We review his Servin order and we are increasing the Abilify up to 15 mg p.o. daily and adding Haldol p.r.n. since it is in his role years order. We needed to give him some p.r.n. at 14:00. 01/23 The patient is grossly psychotic disrobing and sexually disinhibited we are starting Haldol 2 mg p.o. t.i.d. to target psychosis as per court order treatment over objection order. 01/24 The patient remains very agitated and angry disruptive so we are increasing the Haldol from 2 mg to 5 mg p.o. t.i.d. with a backup IM if the patient refused as per court order. 01/25 we have increased the Haldol but still he is very psychotic and restless. Today he refused his blood work. He needed to be physically held twice. 01/26 the patient remains agitated at times but his last IM backup was yesterday. We are going to increase Abilify up to 20 mg daily to target mood lability and psychosis. 01/29/2024: Increase frequency of prn doses from tid to prn q 6mrs. Poor insight and unable to care for self 02/08 pt has not take any of mood stabilizer. continues to have poor sleep, intrusive and combative requiring IM medications, increase haldol 10mg po TID, back up IM. Will add ativan 1mg po TID, also back up IM. Labs show elevated CK 2300, BUN 20, Cr 1.80, unclear baseline Cr as he does have CKD. Discussed with hospitalist Dr. Gama, to give IV fluids and monitor labs tomorrow. LFTs also elevated suspect this is secondary to elevation in CK and should trend down as CK goes down. 02/09 still agitated, creatinine and CPK slightly high as yesterday, he removed his IV line there is no big difference with IV hydration. We are changing his community role years to have more options since it is not working Abilify and Haldol 02/10 3 chemical restraints yesterday. appears more combative, and somewhat more confused. Will decrease amount of benzo and antihistamine given to him as it seems to be backfiring. did discuss with ICU attending, Dr. Whiteside possibility of transferring there but they would like us to try IV depakote and exhaust all resources prior to considering transfer. Pt did take depakote springkle 1000mg with apple sauce with much encourage. 02/11 continue tx. 02/12 continue same treatment 01/14 continue with Abilify and other court order medications, we are Namenda and the court order. 02/14 Team report improvement today with pt having greater comfort and less agitation. [id number] the staff reported that the patient had been less violent in the last 24 hours 02/16 continue tx. will check depakote and ammonia on 02/17 in AM. 02/17 continue regime and plan of care 02/26/2024: Continue current regimen as per court order 03/03 continue tx. lactulose for now as we don't have new ammonia level, but will try to chack labs. 03/16- continue medications, held clonidine patch for today due to low BP. repeat labs. 03/17-continue plan of care 03/18- continue tx 03/19 continue same treatment 03/20 waiting for CBC, basic metabolic panel and ammonia level. Today he nearly choked with a grape. We are going to change his diet to chopped 03/21 patient had a fall and he was assessed. No injuries as per CT scan of head and pelvis. Again he refused again his blood work vital signs within normal limits. 03/22 keep same treatment 03/23 keep same treatment 03 24 24 Continue plan of care Depakote Tegretol Haldol carbamazepine 03/25/2024 Repeat swallowing study ordered he is already on ground diet consider lowering Haldol versus Cogentin generally try to avoid older man 03/26 lowered Haldol to 7.5 p.o. b.i.d. 03/27 start Abilify Maintena 400 IM, later on we stopped it since he was over-sedated. 03/28 monitor vital signs and we will order blood work for tomorrow morning. 03/29 keep same treatment. We are deferring Abilify Maintena since the patient is still sedated and looks slightly delirious. He has refused blood work 03/31 continue current tx. less combative but no improvement in mentation. grossly disorganized and non sensical. 04/01: court ordered meds- team reviewing and optimizing same. 04/02 continue tx. 04/03 keep same treatment, so far he had been more compliant with some of the medications in the last 3 days. 04/04 start Abilify Maintena 400 mg IM 04/05 keep Haldol as prescribed 04/06 keep same treatment 04/08/24 continue current plan, regime 04/09/24 continue plan, CAT pending 04/10 continue same treatment 04/11 keep same treatment Reason for continued inpatient stay Substantial Risk for: inability to function, rapid decompensation and med/psych decompensation Time Spent With Patient Time: Total time managing care of this patient today __20__ minutes.
--- NOTE | 2024-04-11 14:35 | MHC.SLORD ---
Speech Language Pathology Order Status: MENTAL RETARDATION AIDE attempted dysphagia treatment, pt lying in bed with blanket over his head. RN and FITNESS ASSISTANT consulted, pt eats very little but no concerns with PO tolerance reported. Pt passively refused to participate in tx as he kept his eyes closed, made facial grimace and pulled blanket back over his head. MENTAL RETARDATION AIDE will continue to follow as indicated.
--- NOTE | 2024-04-11 14:58 | MHC.CLN ---
F/U PATIENT WITH RECENT POOR PO MOST MEALS. ADDING ENSURE TID TO PROMOTE NUTRITIONAL INTAKE. SUPPLEMENT PROVIDES 1050 KCALS, 60 G PROTEIN.
[2024-04-11 20:00] VITALS: RESP 16
[2024-04-12] MEDS: LORazepam 1 MG TABLET 2 MG PO ×2 (00:31→20:03)
[2024-04-12] MEDS: Haloperidol Lactate Oral Conc 10 MG/5 ML ORAL.CONC 5 MG PO ×3 (00:31→22:47)
--- NOTE | 2024-04-12 12:18 | MHC.SLORD ---
Addendum entered and electronically signed by MARCELA Morse 04/12/24 16:43: Patient has been on diet of NDD2 with Thin Liquids. MONORAIL HELPER has been monitoring with difficulty directly seeing patient due to behavioral needs, however patient has been stable on this diet. Recommend d/c from Speech service at this time, continue on diet of Ground Mechanical (NDD2) with Thin liquids, pills whole with puree or liquid. Please re-contact/order if further needs arise. Original Note: Speech Language Pathology Order Status: Attempted to see patient at lunch, patient in room, not appropriate today for treatment/meal per SHOP TAILOR APPRENTICE. MONORAIL HELPER will continue to follow.
--- NOTE | 2024-04-12 13:23 | PC.NURSE ---
This continuity writer texted Dr Watson to report that this pt has been sleeping all morning. Provider stated to hold all morning medications.
--- NOTE | 2024-04-12 16:03 | P.PNPSI_ITS ---
Subjective Subjective Date of Service: 04/12/24 Reason For Visit: Schizoaffective disorder Subjective Notes: Section 7 and Section 8 Interim History: The nursing staff reported the patient has been compliant with treatment, he got good p.o. intake of fluids and food. He received p.r.n. Ativan and slept 8 hours. On interview the patient refused to engage in conversation he was tired. We held his medication in the morning. I called his sister who called us the day before yesterday and explained that he started to getting slightly better, less violent. Mental Status Exam Mental Status Exam Patient Appearance: Appropriate Patient Orientation: Person and Situation Level of Consciousness: Awake and Appropriate Patient Behavior: Guarded and Passive Mood Description: Withdrawn Affect Description: Blunted Patient Cognition Impaired: Yes Ability to Follow Directions: Good Speech Pattern: Impoverished Hallucinations: Auditory Delusions: Paranoid Ideation and Ideas of Reference Thought Process: Distracted and Slowed Thinking Thought Content: positive for Mathews and positive for Poverty of Content Judgement: Poor Diagnostics Vital Signs (24Hr): Vital Signs - 24 hr 04/11/24 20:00 Respiratory Rate 16 BMI result Body Mass Index 25.1 Labs 03/30/24 08:49 03/30/24 08:49 Imaging Radiology Impressions: ITS Impressions Chest X-Ray 03/20/24 08:33 IMPRESSION: Extremely limited exam. Only lateral views could be obtained. Suspect basilar airspace opacity, possibly pneumonia. Electronically signed by: Fortino Dumont MD 03/20/2024 10:10 AM EST RP Cervical Spine CT 03/21/24 11:18 IMPRESSION: 1. Allowing for suboptimal positioning, there is no CT evidence of acute cervical spine fracture or injury. 2. Degenerative changes with bulky ventral osteophytes spanning C4-C6, appearance in keeping with DISH. Electronically signed by: Fortino Dumont MD 03/21/2024 12:01 PM EST RP Head CT 03/21/24 11:18 IMPRESSION: 1. No acute intracranial abnormality. No acute fractures seen. 2. Stable chronic findings as discussed. Electronically signed by: Fortino Dumont MD 03/21/2024 11:54 AM EST RP Pelvis CT 03/21/24 11:18 IMPRESSION: 1. No acute bony abnormalities. No fractures. 2. Constipation with a large amount of stool in the rectum and sigmoid colon. 3. Mild thickening of the urinary bladder wall despite underdistention, nonspecific. Differential includes the detrusor hypertrophy, neurogenic bladder, or possibly cystitis. Electronically signed by: Fortino Dumont MD 03/21/2024 12:09 PM EST RP Head CT 03/28/24 09:37 IMPRESSION: No acute fracture, bony calvarium. No acute intracranial hemorrhage. Small vessel occlusive disease. Bifrontal bitemporal lobe atrophy. Electronically signed by: Juan Corrigan MD 03/28/2024 10:19 AM EST RP Medications Medications Current Medications Acetaminophen (Acetaminophen 325 Mg Tablet) 650 mg PO Q6H PRN PRN Reason: Headache/Pain Mild Scale (1-3) Last Admin: 01/17/24 23:53 Dose: 325 mg Al Hydroxide/Mg Hydroxide (Magnesium Hydrox/Alum Hydrox 30 Ml Oral.Susp) 30 ml PO Q6H PRN PRN Reason: Heartburn/Nausea Amlodipine Besylate (Amlodipine Besylate 10 Mg Tablet) 10 mg PO DAILY [facility]; Protocol Last Admin: 04/12/24 13:21 Dose: Not Given Aripiprazole (Aripiprazole Er 400 Mg Suser.Syr) 400 mg IM Q30D [facility] [place] Last Admin: 04/04/24 15:05 Dose: 400 mg Aspirin (Aspirin 81 Mg Tab.Chew) 81 mg PO DAILY [facility] Last Admin: 04/12/24 13:22 Dose: Not Given Atorvastatin Calcium (Atorvastatin Calcium 40 Mg Tablet) 40 mg PO DAILY [facility] [place] Last Admin: 04/12/24 13:22 Dose: Not Given Carbamazepine (Carbamazepine 200 Mg Tablet) 200 mg PO BID [facility] [place] Last Admin: 04/12/24 13:22 Dose: Not Given Clonidine (Clonidine 0.2 Mg Patch.Tdwk) 0.2 mg TRANSDERMA Fr@0900 [facility] [place]; Protocol Last Admin: 04/06/24 10:06 Dose: Not Given Ferrous Sulfate (Ferrous Sulfate 324 Mg Tablet.Dr) 324 mg PO BID [facility] [place] Last Admin: 04/12/24 13:22 Dose: Not Given Haloperidol Lactate (Haloperidol Lactate Oral Conc 10 Mg/5 Ml Oral.Conc) 5 mg PO Q6H PRN PRN Reason: Psychosis or severe agitation Last Admin: 04/12/24 00:31 Dose: 5 mg Haloperidol Lactate (Haloperidol Lactate Oral Conc 10 Mg/5 Ml Oral.Conc) 5 mg PO BID [facility] [place] Last Admin: 04/12/24 13:22 Dose: Not Given Haloperidol Lactate (Haloperidol Lactate 5 Mg/Ml Vial) 5 mg IM BID PRN PRN Reason: Refusal of Court PO Haldol Lorazepam (Lorazepam 1 Mg Tablet) 2 mg PO Q6H PRN PRN Reason: agitation Last Admin: 04/12/24 00:31 Dose: 2 mg Magnesium Hydroxide (Milk Of Magnesia 30 Ml Oral.Susp) 30 ml PO DAILY PRN PRN Reason: Constipation Nicotine Polacrilex (Nicotine Polacrilex 2 Mg Gum) 2 mg BUCCAL Q2H PRN PRN Reason: Nicotine Cravings Trazodone HCl (Trazodone Hcl 50 Mg Tablet) 50 mg PO BEDTIME MRX1 PRN PRN Reason: Insomnia Last Admin: 04/10/24 21:37 Dose: 50 mg Valproic Acid (Valproic Acid Liquid 250 Mg/5 Ml Solution) 750 mg PO BID [facility] [place] Last Admin: 04/12/24 13:23 Dose: Not Given Vitamin D (Cholecalciferol (Vitamin D3) 25 Mcg Tablet) 50 mcg PO DAILY [facility] [place] Last Admin: 04/12/24 13:22 Dose: Not Given Allergies Allergies Allergy/AdvReac Type Severity Reaction Status Date / Time lithium Allergy Unknown Verified 01/13/24 18:08 Assessment & Plan Assessment & Plan (1) Schizoaffective disorder, bipolar type: Status: Acute Code(s): F25.0 - Schizoaffective disorder, bipolar type (2) Hypertension: Status: Acute Code(s): I10 - Essential (primary) hypertension (3) Diabetes mellitus: Status: Acute Code(s): E11.9 - Type 2 diabetes mellitus without complications Plan 03/23 keep same treatment 68 yo [place] [facility] [place] with chronic psychotic disorder, refusing medication , elevated bp and disorganized and agitated behavior requiring psychiatric hospitalization and treatment not competent to sign cv. 01/14 continue to follow - gave lambs warning today- and he says the county court judge will be a she- still refusing medications and quite psychotic takes alot of redirection to settle him poor adls- 01/15- Refuses meds, refuses hospitalist consult-second day File for Section Seven consideration on 01/17. Provide care as he will allow. 01/16: Depakote 250 mg bid Haldol, Lorazepam, Benadryl prn Section 7 to be filed 01/17 Message left for guardian. 01/17: Section Seven filed. . Court scheduled 01/26/24 Pt continues to refuse medicaitons. He is in need of full assist with ADL's and is incontinent. Pt transferred to [facility] this afternoon. 01/19/2024 Patient pending civil commitment loud agitated would not engage in any conversation with this medical writer non informational healing agitated verbally aggressive. Every attempt being made to get a copy of the patient's Servin order unclear why this has been so problematic. Encourage food and fluids 01/19 continue same treatment 01/21/24 Patient labile agitated intrusive close labs ordered in order to per to protect the community patient wandering into patient's rooms intrusive impulsive laying on another person's bed. Often hostile agitated posturing at times we are still pending copy of reported Servin order encourage p.o. compliance 01/22/2024 Patient did require physical hold escort him out of a room that he jumped in other patient's room and on their bed while there were in it. There was no physical harm and the patient did leave the room his markedly impulsive with poor judgment remains on close observation has intermittently taken Haldol liquid pending civil commitment treatment plan there is a question of Servin order 01/22 The patient had been more agitated. We review his Servin order and we are increasing the Abilify up to 15 mg p.o. daily and adding Haldol p.r.n. since it is in his role years order. We needed to give him some p.r.n. at 14:00. 01/23 The patient is grossly psychotic disrobing and sexually disinhibited we are starting Haldol 2 mg p.o. t.i.d. to target psychosis as per court order treatment over objection order. 01/24 The patient remains very agitated and angry disruptive so we are increasing the Haldol from 2 mg to 5 mg p.o. t.i.d. with a backup IM if the patient refused as per court order. 01/25 we have increased the Haldol but still he is very psychotic and restless. Today he refused his blood work. He needed to be physically held twice. 01/26 the patient remains agitated at times but his last IM backup was yesterday. We are going to increase Abilify up to 20 mg daily to target mood lability and psychosis. 01/29/2024: Increase frequency of prn doses from tid to prn q 6mrs. Poor insight and unable to care for self 02/08 pt has not take any of mood stabilizer. continues to have poor sleep, intrusive and combative requiring IM medications, increase haldol 10mg po TID, back up IM. Will add ativan 1mg po TID, also back up IM. Labs show elevated CK 2300, BUN 20, Cr 1.80, unclear baseline Cr as he does have CKD. Discussed with hospitalist Dr. Gama, to give IV fluids and monitor labs tomorrow. LFTs also elevated suspect this is secondary to elevation in CK and should trend down as CK goes down. 02/09 still agitated, creatinine and CPK slightly high as yesterday, he removed his IV line there is no big difference with IV hydration. We are changing his community role years to have more options since it is not working Abilify and Haldol 02/10 3 chemical restraints yesterday. appears more combative, and somewhat more confused. Will decrease amount of benzo and antihistamine given to him as it seems to be backfiring. did discuss with ICU attending, Dr. Whiteside possibility of transferring there but they would like us to try IV depakote and exhaust all resources prior to considering transfer. Pt did take depakote springkle 1000mg with apple sauce with much encourage. 02/11 continue tx. 02/12 continue same treatment 01/14 continue with Abilify and other court order medications, we are Namenda and the court order. 02/14 Team report improvement today with pt having greater comfort and less agitation. [id number] the staff reported that the patient had been less violent in the last 24 hours 02/16 continue tx. will check depakote and ammonia on 02/17 in AM. 02/17 continue regime and plan of care 02/26/2024: Continue current regimen as per court order 03/03 continue tx. lactulose for now as we don't have new ammonia level, but will try to chack labs. 03/16- continue medications, held clonidine patch for today due to low BP. repeat labs. 03/17-continue plan of care 03/18- continue tx 03/19 continue same treatment 03/20 waiting for CBC, basic metabolic panel and ammonia level. Today he nearly choked with a grape. We are going to change his diet to chopped 03/21 patient had a fall and he was assessed. No injuries as per CT scan of head and pelvis. Again he refused again his blood work vital signs within normal limits. 03/22 keep same treatment 03/23 keep same treatment 03 24 24 Continue plan of care Depakote Tegretol Haldol carbamazepine 03/25/2024 Repeat swallowing study ordered he is already on ground diet consider lowering Haldol versus Cogentin generally try to avoid older man 03/26 lowered Haldol to 7.5 p.o. b.i.d. 03/27 start Abilify Maintena 400 IM, later on we stopped it since he was over- sedated. 03/28 monitor vital signs and we will order blood work for tomorrow morning. 03/29 keep same treatment. We are deferring Abilify Maintena since the patient is still sedated and looks slightly delirious. He has refused blood work 03/31 continue current tx. less combative but no improvement in mentation. grossly disorganized and non sensical. 04/01: court ordered meds- team reviewing and optimizing same. 04/02 continue tx. 04/03 keep same treatment, so far he had been more compliant with some of the medications in the last 3 days. 04/04 start Abilify Maintena 400 mg IM 04/05 keep Haldol as prescribed 04/06 keep same treatment 04/08/24 continue current plan, regime 04/09/24 continue plan, CAT pending 04/10 continue same treatment 04/11 keep same treatment 04/12 lowering Haldol to 5 mg p.o. b.i.d. since the patient is over-sedated. Reason for continued inpatient stay Substantial Risk for: inability to function, rapid decompensation and med/psych decompensation Time Spent With Patient Time: Total time managing care of this patient today __20__ minutes.
[2024-04-12 20:00] VITALS: BP 144/66; PULSE 98; RESP 16; TEMP 36.9; O2SAT 99
[2024-04-12] MEDS: Valproic Acid Liquid 250 MG/5 ML SOLUTION 750 MG PO (20:02)
[2024-04-12] MEDS: carBAMazepine 200 MG TABLET PO (20:02)
[2024-04-12] MEDS: traZODone HCL 50 MG TABLET PO ×2 (20:03→22:48)
[2024-04-13] MEDS: LORazepam 1 MG TABLET 2 MG PO ×3 (01:05→21:23)
--- NOTE | 2024-04-13 02:49 | PC.NURSE ---
0100 pt restless and attempting to throw self over the side of the bed. pt can not be redirected. his speech is nonsensical. he frequently reaches upward into the air as if to touch something which is not there. stonecutter hand provider dr collins leger contacted notified 1. increased restlessness and agitation 2. earlier in the day pts meds scheduled/prns had been held. 3. at this time, i have exhausted all prns until 0200 in which he can receive ativan 2 mg po. plan-1. ativan 2 mg po stat 0246 despite ativan 2 mg po stat at 0105- pt remains agitated and uncooperative. he has pushed and grabbed at staff. prn ativan 2 mg po given and readily accepted by pt. pt has been incontinent of stool and urine throughout the night. pt remains under continous patient observation.
[2024-04-13] MEDS: Haloperidol Lactate Oral Conc 10 MG/5 ML ORAL.CONC 5 MG PO ×3 (06:19→21:22)
[2024-04-13] MEDS: Valproic Acid Liquid 250 MG/5 ML SOLUTION 750 MG PO ×2 (09:11→21:22)
[2024-04-13] MEDS: Atorvastatin Calcium 40 MG TABLET PO (09:12)
[2024-04-13] MEDS: Cholecalciferol (Vitamin D3) 25 MCG TABLET 50 MCG PO (09:12)
[2024-04-13] MEDS: Aspirin 81 MG TAB.CHEW PO (09:12)
[2024-04-13] MEDS: carBAMazepine 200 MG TABLET PO ×2 (09:12→21:23)
[2024-04-13] MEDS: amLODIPine Besylate 10 MG TABLET PO (09:12)
[2024-04-13] MEDS: Ferrous Sulfate 324 MG TABLET.DR PO (09:12)
--- NOTE | 2024-04-13 15:12 | P.PNPSI_ITS ---
Subjective Subjective Date of Service: 04/13/24 Reason For Visit: Schizoaffective disorder Subjective Notes: Conditional Voluntary Interim History: The nursing staff reported the patient had been agitated overnight, his appetite had been stable and he had been eating with the help of staff. On interview the patient was sleepy and refused to engage. We are continuing the same treatment Mental Status Exam Mental Status Exam Patient Appearance: Unkempt Patient Orientation: Person Level of Consciousness: Sedated Patient Behavior: Guarded and Passive Mood Description: Withdrawn Affect Description: Constricted Patient Cognition Impaired: Yes Ability to Follow Directions: Good Speech Pattern: Impoverished Hallucinations: Auditory Delusions: Paranoid Ideation and Ideas of Reference Thought Process: Distracted and Slowed Thinking Thought Content: positive for Blaine Judgement: Poor Diagnostics Vital Signs (24Hr): Vital Signs - 24 hr 04/12/24 20:00 Temperature 98.5 F Pulse Rate 98 Respiratory Rate 16 Blood Pressure 144/66 H Pulse Oximetry 99 Oxygen Delivery Method Room Air BMI result Body Mass Index 25.1 Labs 03/30/24 08:49 03/30/24 08:49 Imaging Radiology Impressions: ITS Impressions Chest X-Ray 03/20/24 08:33 IMPRESSION: Extremely limited exam. Only lateral views could be obtained. Suspect basilar airspace opacity, possibly pneumonia. Electronically signed by: Fortino Duomnt MD 03/20/2024 10:10 AM EST RP Cervical Spine CT 03/21/24 11:18 IMPRESSION: 1. Allowing for suboptimal positioning, there is no CT evidence of acute cervical spine fracture or injury. 2. Degenerative changes with bulky ventral osteophytes spanning C4-C6, appearance in keeping with DISH. Electronically signed by: Fortino Dumont MD 03/21/2024 12:01 PM EST RP Head CT 03/21/24 11:18 IMPRESSION: 1. No acute intracranial abnormality. No acute fractures seen. 2. Stable chronic findings as discussed. Electronically signed by: Fortino Dumont MD 03/21/2024 11:54 AM EST RP Pelvis CT 03/21/24 11:18 IMPRESSION: 1. No acute bony abnormalities. No fractures. 2. Constipation with a large amount of stool in the rectum and sigmoid colon. 3. Mild thickening of the urinary bladder wall despite underdistention, nonspecific. Differential includes the detrusor hypertrophy, neurogenic bladder, or possibly cystitis. Electronically signed by: Fortino Dumont MD 03/21/2024 12:09 PM EST RP Head CT 03/28/24 09:37 IMPRESSION: No acute fracture, bony calvarium. No acute intracranial hemorrhage. Small vessel occlusive disease. Bifrontal bitemporal lobe atrophy. Electronically signed by: Juan Corrigan MD 03/28/2024 10:19 AM EST RP Medications Medications Current Medications Acetaminophen (Acetaminophen 325 Mg Tablet) 650 mg PO Q6H PRN PRN Reason: Headache/Pain Mild Scale (1-3) Last Admin: 01/17/24 23:53 Dose: 325 mg Al Hydroxide/Mg Hydroxide (Magnesium Hydrox/Alum Hydrox 30 Ml Oral.Susp) 30 ml PO Q6H PRN PRN Reason: Heartburn/Nausea Amlodipine Besylate (Amlodipine Besylate 10 Mg Tablet) 10 mg PO DAILY [facility]; Protocol Last Admin: 04/13/24 09:12 Dose: 10 mg Aripiprazole (Aripiprazole Er 400 Mg Suser.Syr) 400 mg IM Q30D [facility] Last Admin: 04/04/24 15:05 Dose: 400 mg Aspirin (Aspirin 81 Mg Tab.Chew) 81 mg PO DAILY [facility] Last Admin: 04/13/24 09:12 Dose: 81 mg Atorvastatin Calcium (Atorvastatin Calcium 40 Mg Tablet) 40 mg PO DAILY [facility] Last Admin: 04/13/24 09:12 Dose: 40 mg Carbamazepine (Carbamazepine 200 Mg Tablet) 200 mg PO BID [facility] Last Admin: 04/13/24 09:12 Dose: 200 mg Clonidine (Clonidine 0.2 Mg Patch.Tdwk) 0.2 mg TRANSDERMA Fr@0900 [facility]; Protocol Last Admin: 04/06/24 10:06 Dose: Not Given Ferrous Sulfate (Ferrous Sulfate 324 Mg Tablet.Dr) 324 mg PO BID [facility] Last Admin: 04/13/24 09:12 Dose: 324 mg Haloperidol Lactate (Haloperidol Lactate Oral Conc 10 Mg/5 Ml Oral.Conc) 5 mg PO Q6H PRN PRN Reason: Psychosis or severe agitation Last Admin: 04/13/24 06:19 Dose: 5 mg Haloperidol Lactate (Haloperidol Lactate Oral Conc 10 Mg/5 Ml Oral.Conc) 5 mg PO BID [facility] Last Admin: 04/12/24 20:02 Dose: 5 mg Haloperidol Lactate (Haloperidol Lactate 5 Mg/Ml Vial) 5 mg IM BID PRN PRN Reason: Refusal of Court PO Haldol Lorazepam (Lorazepam 1 Mg Tablet) 2 mg PO Q6H PRN PRN Reason: agitation Last Admin: 04/13/24 02:46 Dose: 2 mg Magnesium Hydroxide (Milk Of Magnesia 30 Ml Oral.Susp) 30 ml PO DAILY PRN PRN Reason: Constipation Nicotine Polacrilex (Nicotine Polacrilex 2 Mg Gum) 2 mg BUCCAL Q2H PRN PRN Reason: Nicotine Cravings Trazodone HCl (Trazodone Hcl 50 Mg Tablet) 50 mg PO BEDTIME MRX1 PRN PRN Reason: Insomnia Last Admin: 04/12/24 22:48 Dose: 50 mg Valproic Acid (Valproic Acid Liquid 250 Mg/5 Ml Solution) 750 mg PO BID [facility] Last Admin: 04/13/24 09:11 Dose: 750 mg Vitamin D (Cholecalciferol (Vitamin D3) 25 Mcg Tablet) 50 mcg PO DAILY [facility] Last Admin: 04/13/24 09:12 Dose: 50 mcg Allergies Allergies Allergy/AdvReac Type Severity Reaction Status Date / Time lithium Allergy Unknown Verified 01/13/24 18:08 Assessment & Plan Assessment & Plan (1) Schizoaffective disorder, bipolar type: Status: Acute Code(s): F25.0 - Schizoaffective disorder, bipolar type (2) Hypertension: Status: Acute Code(s): I10 - Essential (primary) hypertension (3) Diabetes mellitus: Status: Acute Code(s): E11.9 - Type 2 diabetes mellitus without complications Plan 03/23 keep same treatment 68 yo from a [facility] with chronic psychotic disorder, refusing medication , elevated bp and disorganized and agitated behavior requiring psychiatric hospitalization and treatment not competent to sign cv. 01/14 continue to follow - gave lambs warning today- and he says the bindery manager will be a she- still refusing medications and quite psychotic takes alot of redirection to settle him poor adls- 01/15- Refuses meds, refuses hospitalist consult-second day File for Section [place] consideration on 01/17. Provide care as he will allow. 01/16: Depakote 250 mg bid Haldol, Lorazepam, Benadryl prn Section 7 to be filed 01/17 Message left for guardian. 01/17: Section Seven filed. . Court scheduled 01/26/24 Pt continues to refuse medicaitons. He is in need of full assist with ADL's and is incontinent. Pt transferred to [facility] this afternoon. 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 Every attempt being made to get a copy of the patient's Servin order unclear why this has been so problematic. Encourage food and fluids 01/19 continue same treatment 01/21/24 Patient labile agitated intrusive close labs ordered in order to per to protect the community patient wandering into patient's rooms intrusive impulsive laying on another person's bed. Often hostile agitated posturing at times we are still pending copy of reported Servin order encourage p.o. compliance 01/22/2024 Patient did require physical hold escort him out of a room that he jumped in other patient's room and on their bed while there were in it. There was no physical harm and the patient did leave the room his markedly impulsive with poor judgment remains on close observation has intermittently taken Haldol liquid pending civil commitment treatment plan there is a question of Servin order 01/22 The patient had been more agitated. We review his Servin order and we are increasing the Abilify up to 15 mg p.o. daily and adding Haldol p.r.n. since it is in his role years order. We needed to give him some p.r.n. at 14:00. 01/23 The patient is grossly psychotic disrobing and sexually disinhibited we are starting Haldol 2 mg p.o. t.i.d. to target psychosis as per court order treatment over objection order. 01/24 The patient remains very agitated and angry disruptive so we are increasing the Haldol from 2 mg to 5 mg p.o. t.i.d. with a backup IM if the patient refused as per court order. 01/25 we have increased the Haldol but still he is very psychotic and restless. Today he refused his blood work. He needed to be physically held twice. 01/26 the patient remains agitated at times but his last IM backup was yesterday. We are going to increase Abilify up to 20 mg daily to target mood lability and psychosis. 01/29/2024: Increase frequency of prn doses from tid to prn q 6mrs. Poor insight and unable to care for self 02/08 pt has not take any of mood stabilizer. continues to have poor sleep, intrusive and combative requiring IM medications, increase haldol 10mg po TID, back up IM. Will add ativan 1mg po TID, also back up IM. Labs show elevated CK 2300, BUN 20, Cr 1.80, unclear baseline Cr as he does have CKD. Discussed with hospitalist Dr. Gama, to give IV fluids and monitor labs tomorrow. LFTs also elevated suspect this is secondary to elevation in CK and should trend down as CK goes down. 02/09 still agitated, creatinine and CPK slightly high as yesterday, he removed his IV line there is no big difference with IV hydration. We are changing his community role years to have more options since it is not working Abilify and Haldol 02/10 3 chemical restraints yesterday. appears more combative, and somewhat more confused. Will decrease amount of benzo and antihistamine given to him as it seems to be backfiring. did discuss with ICU attending, Dr. Whiteside possibility of transferring there but they would like us to try IV depakote and exhaust all resources prior to considering transfer. Pt did take depakote springkle 1000mg with apple sauce with much encourage. 02/11 continue tx. 02/12 continue same treatment 01/14 continue with Abilify and other court order medications, we are Namenda and the court order. 02/14 Team report improvement today with pt having greater comfort and less agitation. [id number] the staff reported that the patient had been less violent in the last 24 hours 02/16 continue tx. will check depakote and ammonia on 02/17 in AM. 02/17 continue regime and plan of care 02/26/2024: Continue current regimen as per court order 03/03 continue tx. lactulose for now as we don't have new ammonia level, but will try to chack labs. 03/16- continue medications, held clonidine patch for today due to low BP. repeat labs. 03/17-continue plan of care 03/18- continue tx 03/19 continue same treatment 03/20 waiting for CBC, basic metabolic panel and ammonia level. Today he nearly choked with a grape. We are going to change his diet to chopped 03/21 patient had a fall and he was assessed. No injuries as per CT scan of head and pelvis. Again he refused again his blood work vital signs within normal limits. 03/22 keep same treatment 03/23 keep same treatment 03 24 24 Continue plan of care Depakote Tegretol Haldol carbamazepine 03/25/2024 Repeat swallowing study ordered he is already on ground diet consider lowering Haldol versus Cogentin generally try to avoid older man 03/26 lowered Haldol to 7.5 p.o. b.i.d. 03/27 start Abilify Maintena 400 IM, later on we stopped it since he was over- sedated. 03/28 monitor vital signs and we will order blood work for tomorrow morning. 03/29 keep same treatment. We are deferring Abilify Maintena since the patient is still sedated and looks slightly delirious. He has refused blood work 03/31 continue current tx. less combative but no improvement in mentation. grossly disorganized and non sensical. 04/01: court ordered meds- team reviewing and optimizing same. 04/02 continue tx. 04/03 keep same treatment, so far he had been more compliant with some of the medications in the last 3 days. 04/04 start Abilify Maintena 400 mg IM 04/05 keep Haldol as prescribed 04/06 keep same treatment 04/08/24 continue current plan, regime 04/09/24 continue plan, CAT pending 04/10 continue same treatment 04/11 keep same treatment 04/12 lowering Haldol to 5 mg p.o. b.i.d. since the patient is over-sedated. 04/13 keep same treatment Reason for continued inpatient stay Substantial Risk for: inability to function, rapid decompensation and med/psych decompensation Time Spent With Patient Time: Total time managing care of this patient today __20__ minutes.
[2024-04-13 20:00] VITALS: BP 120/82; PULSE 84; RESP 18; TEMP 36.9
[2024-04-13] MEDS: traZODone HCL 50 MG TABLET PO (21:23)
[2024-04-14] MEDS: Haloperidol Lactate Oral Conc 10 MG/5 ML ORAL.CONC 5 MG PO ×3 (07:55→20:30)
[2024-04-14] MEDS: Valproic Acid Liquid 250 MG/5 ML SOLUTION 750 MG PO ×2 (07:56→20:30)
[2024-04-14] MEDS: LORazepam 1 MG TABLET 2 MG PO ×2 (07:56→16:38)
[2024-04-14 08:28] VITALS: BP 123/65; PULSE 67; RESP 18; TEMP 36.6; O2SAT 98
--- NOTE | 2024-04-14 17:32 | HO.PSYCHPN ---
Subjective Subjective Date of Service: 04/14/24 Reason For Visit: Schizoaffective disorder Interim History: Met with patient; discussed with team; reviewed chart agitated today, jumping around, dive off bed, crawling on all 4's, naked; took meds; now sleeping Mental Status Exam Mental Status Exam Patient Appearance: Unkempt Patient Orientation: Person Level of Consciousness: Sedated Patient Behavior: Guarded, Hyperactive, Restless and Confused Mood Description: Withdrawn and Labile Affect Description: Withdrawn, Constricted and Labile Patient Cognition Impaired: Yes Ability to Follow Directions: Poor Speech Pattern: Impoverished Hallucinations: Auditory Delusions: Paranoid Ideation and Ideas of Reference Thought Process: Distracted and Slowed Thinking Thought Content: positive for [place] Judgement: Poor Judgement and Insight: impaired Diagnostics Vital Signs (24Hr): Vital Signs - 24 hr 04/13/24 20:00 04/14/24 08:28 Temperature 98.4 F 97.9 F Pulse Rate 84 67 Respiratory Rate 18 18 Blood Pressure 120/82 123/65 Pulse Oximetry 98 Oxygen Delivery Method Room Air BMI result Body Mass Index 25.1 Labs 03/30/24 08:49 03/30/24 08:49 Imaging Radiology Impressions: ITS Impressions Chest X-Ray 03/20/24 08:33 IMPRESSION: Extremely limited exam. Only lateral views could be obtained. Suspect basilar airspace opacity, possibly pneumonia. Electronically signed by: Fortino Dumont MD 03/20/2024 10:10 AM EST RP Cervical Spine CT 03/21/24 11:18 IMPRESSION: 1. Allowing for suboptimal positioning, there is no CT evidence of acute cervical spine fracture or injury. 2. Degenerative changes with bulky ventral osteophytes spanning C4-C6, appearance in keeping with DISH. Electronically signed by: Fortino Dumont MD 03/21/2024 12:01 PM EST RP Head CT 03/21/24 11:18 IMPRESSION: 1. No acute intracranial abnormality. No acute fractures seen. 2. Stable chronic findings as discussed. Electronically signed by: Fortino Dumont MD 03/21/2024 11:54 AM EST RP Pelvis CT 03/21/24 11:18 IMPRESSION: 1. No acute bony abnormalities. No fractures. 2. Constipation with a large amount of stool in the rectum and sigmoid colon. 3. Mild thickening of the urinary bladder wall despite underdistention, nonspecific. Differential includes the detrusor hypertrophy, neurogenic bladder, or possibly cystitis. Electronically signed by: Fortino Dumont MD 03/21/2024 12:09 PM EST RP Head CT 03/28/24 09:37 IMPRESSION: No acute fracture, bony calvarium. No acute intracranial hemorrhage. Small vessel occlusive disease. Bifrontal bitemporal lobe atrophy. Electronically signed by: Juan Corrigan MD 03/28/2024 10:19 AM EST RP Medications Medications Current Medications Acetaminophen (Acetaminophen 325 Mg Tablet) 650 mg PO Q6H PRN PRN Reason: Headache/Pain Mild Scale (1-3) Last Admin: 01/17/24 23:53 Dose: 325 mg Al Hydroxide/Mg Hydroxide (Magnesium Hydrox/Alum Hydrox 30 Ml Oral.Susp) 30 ml PO Q6H PRN PRN Reason: Heartburn/Nausea Aripiprazole (Aripiprazole Er 400 Mg Suser.Syr) 400 mg IM Q30D [facility] Last Admin: 04/04/24 15:05 Dose: 400 mg Aspirin (Aspirin 81 Mg Tab.Chew) 81 mg PO DAILY [facility] Last Admin: 04/14/24 09:21 Dose: Not Given Carbamazepine (Carbamazepine 200 Mg Tablet) 200 mg PO BID [facility] Last Admin: 04/14/24 09:22 Dose: Not Given Clonidine (Clonidine 0.2 Mg Patch.Tdwk) 0.2 mg TRANSDERMA Fr@0900 [facility]; Protocol Last Admin: 04/13/24 16:27 Dose: Not Given Ferrous Sulfate (Ferrous Sulfate 324 Mg Tablet.Dr) 324 mg PO BID [facility] Last Admin: 04/14/24 09:22 Dose: Not Given Haloperidol Lactate (Haloperidol Lactate Oral Conc 10 Mg/5 Ml Oral.Conc) 5 mg PO Q6H PRN PRN Reason: Psychosis or severe agitation Last Admin: 04/14/24 16:38 Dose: 5 mg Haloperidol Lactate (Haloperidol Lactate Oral Conc 10 Mg/5 Ml Oral.Conc) 5 mg PO BID [facility] Last Admin: 04/14/24 07:55 Dose: 5 mg Haloperidol Lactate (Haloperidol Lactate 5 Mg/Ml Vial) 5 mg IM BID PRN PRN Reason: Refusal of Court PO Haldol Lorazepam (Lorazepam 1 Mg Tablet) 2 mg PO Q6H PRN PRN Reason: agitation/severe anxiety Last Admin: 04/14/24 16:38 Dose: 2 mg Magnesium Hydroxide (Milk Of Magnesia 30 Ml Oral.Susp) 30 ml PO DAILY PRN PRN Reason: Constipation Nicotine Polacrilex (Nicotine Polacrilex 2 Mg Gum) 2 mg BUCCAL Q2H PRN PRN Reason: Nicotine Cravings Trazodone HCl (Trazodone Hcl 50 Mg Tablet) 50 mg PO BEDTIME MRX1 PRN PRN Reason: Insomnia Last Admin: 04/13/24 21:23 Dose: 50 mg Valproic Acid (Valproic Acid Liquid 250 Mg/5 Ml Solution) 750 mg PO BID [facility] Last Admin: 04/14/24 07:56 Dose: 750 mg Vitamin D (Cholecalciferol (Vitamin D3) 25 Mcg Tablet) 50 mcg PO DAILY [facility] Last Admin: 04/14/24 09:22 Dose: Not Given Allergies Allergies Allergy/AdvReac Type Severity Reaction Status Date / Time lithium Allergy Unknown Verified 01/13/24 18:08 Assessment & Plan Assessment & Plan (1) Schizoaffective disorder, bipolar type: Status: Acute Code(s): F25.0 - Schizoaffective disorder, bipolar type (2) Hypertension: Status: Acute Code(s): I10 - Essential (primary) hypertension (3) Diabetes mellitus: Status: Acute Code(s): E11.9 - Type 2 diabetes mellitus without complications Plan 03/23 keep same treatment 68 yo from a retirement with chronic psychotic disorder, refusing medication , elevated bp and disorganized and agitated behavior requiring psychiatric hospitalization and treatment not competent to sign cv. 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 Provide care as he will allow. 01/16: Depakote 250 mg bid Haldol, Lorazepam, Benadryl prn Section 7 to be filed 01/17 Message left for guardian. 01/17: Section Seven filed. . Court scheduled 01/26/24 Pt continues to refuse medicaitons. He is in need of full assist with ADL's and is incontinent. Pt transferred to [facility] this afternoon. 01/19/2024 Patient pending civil commitment loud agitated would not engage in any conversation with this bond underwriter non informational healing agitated verbally aggressive. Every attempt being made to get a copy of the patient's Servin order unclear why this has been so problematic. Encourage food and fluids 01/19 continue same treatment 01/21/24 Patient labile agitated intrusive close labs ordered in order to per to protect the community patient wandering into patient's rooms intrusive impulsive laying on another person's bed. Often hostile agitated posturing at times we are still pending copy of reported Servin order encourage p.o. compliance 01/22/2024 Patient did require physical hold escort him out of a room that he jumped in other patient's room and on their bed while there were in it. There was no physical harm and the patient did leave the room his markedly impulsive with poor judgment remains on close observation has intermittently taken Haldol liquid pending civil commitment treatment plan there is a question of Servin order 01/22 The patient had been more agitated. We review his Servin order and we are increasing the Abilify up to 15 mg p.o. daily and adding Haldol p.r.n. since it is in his role years order. We needed to give him some p.r.n. at 14:00. 01/23 The patient is grossly psychotic disrobing and sexually disinhibited we are starting Haldol 2 mg p.o. t.i.d. to target psychosis as per court order treatment over objection order. 01/24 The patient remains very agitated and angry disruptive so we are increasing the Haldol from 2 mg to 5 mg p.o. t.i.d. with a backup IM if the patient refused as per court order. 01/25 we have increased the Haldol but still he is very psychotic and restless. Today he refused his blood work. He needed to be physically held twice. 01/26 the patient remains agitated at times but his last IM backup was yesterday. We are going to increase Abilify up to 20 mg daily to target mood lability and psychosis. 01/29/2024: Increase frequency of prn doses from tid to prn q 6mrs. Poor insight and unable to care for self 02/08 pt has not take any of mood stabilizer. continues to have poor sleep, intrusive and combative requiring IM medications, increase haldol 10mg po TID, back up IM. Will add ativan 1mg po TID, also back up IM. Labs show elevated CK 2300, BUN 20, Cr 1.80, unclear baseline Cr as he does have CKD. Discussed with hospitalist Dr. Gama, to give IV fluids and monitor labs tomorrow. LFTs also elevated suspect this is secondary to elevation in CK and should trend down as CK goes down. 02/09 still agitated, creatinine and CPK slightly high as yesterday, he removed his IV line there is no big difference with IV hydration. We are changing his community role years to have more options since it is not working Abilify and Haldol 02/10 3 chemical restraints yesterday. appears more combative, and somewhat more confused. Will decrease amount of benzo and antihistamine given to him as it seems to be backfiring. did discuss with ICU attending, Dr. Whiteside possibility of transferring there but they would like us to try IV depakote and exhaust all resources prior to considering transfer. Pt did take depakote springkle 1000mg with apple sauce with much encourage. 02/11 continue tx. 02/12 continue same treatment 01/14 continue with Abilify and other court order medications, we are Namenda and the court order. 02/14 Team report improvement today with pt having greater comfort and less agitation. [id number] the staff reported that the patient had been less violent in the last 24 hours 02/16 continue tx. will check depakote and ammonia on 02/17 in AM. 02/17 continue regime and plan of care 02/26/2024: Continue current regimen as per court order 03/03 continue tx. lactulose for now as we don't have new ammonia level, but will try to chack labs. 03/16- continue medications, held clonidine patch for today due to low BP. repeat labs. 03/17-continue plan of care 03/18- continue tx 03/19 continue same treatment 03/20 waiting for CBC, basic metabolic panel and ammonia level. Today he nearly choked with a grape. We are going to change his diet to chopped 03/21 patient had a fall and he was assessed. No injuries as per CT scan of head and pelvis. Again he refused again his blood work vital signs within normal limits. 03/22 keep same treatment 03/23 keep same treatment 03 24 24 Continue plan of care Depakote Tegretol Haldol carbamazepine 03/25/2024 Repeat swallowing study ordered he is already on ground diet consider lowering Haldol versus Cogentin generally try to avoid older man 03/26 lowered Haldol to 7.5 p.o. b.i.d. 03/27 start Abilify Maintena 400 IM, later on we stopped it since he was over-sedated. 03/28 monitor vital signs and we will order blood work for tomorrow morning. 03/29 keep same treatment. We are deferring Abilify Maintena since the patient is still sedated and looks slightly delirious. He has refused blood work 03/31 continue current tx. less combative but no improvement in mentation. grossly disorganized and non sensical. 04/01: court ordered meds- team reviewing and optimizing same. 04/02 continue tx. 04/03 keep same treatment, so far he had been more compliant with some of the medications in the last 3 days. 04/04 start Abilify Maintena 400 mg IM 04/05 keep Haldol as prescribed 04/06 keep same treatment 04/08/24 continue current plan, regime 04/09/24 continue plan, CAT pending 04/10 continue same treatment 04/11 keep same treatment 04/12 lowering Haldol to 5 mg p.o. b.i.d. since the patient is over-sedated. 04/13 keep same treatment 04/14 agitated today, jumping around, dive off bed, crawling on all 4's, naked; took meds; now sleeping -floridly psychotic and bond underwriter thought best to let pt sleep Informed Consent: does not understand Reason for continued inpatient stay Substantial Risk for: inability to function Time Spent With Patient Time: Total time managing care of this patient today ____ minutes.
[2024-04-14] MEDS: carBAMazepine 200 MG TABLET PO (20:30)
[2024-04-14] MEDS: traZODone HCL 50 MG TABLET PO ×2 (20:30→21:57)
[2024-04-15] MEDS: LORazepam 1 MG TABLET 2 MG PO ×3 (01:23→21:06)
[2024-04-15] MEDS: Haloperidol Lactate Oral Conc 10 MG/5 ML ORAL.CONC 5 MG PO ×2 (08:05→21:06)
[2024-04-15] MEDS: Valproic Acid Liquid 250 MG/5 ML SOLUTION 750 MG PO ×2 (08:05→21:07)
[2024-04-15] MEDS: carBAMazepine 200 MG TABLET PO ×2 (08:08→21:05)
--- NOTE | 2024-04-15 22:06 | HO.PSYCHPN ---
Subjective Subjective Date of Service: 04/15/24 Reason For Visit: Schizoaffective disorder Interim History: met with patient (sleeping); discussed with team more calm today; sleeping on approach which underwriter did not disturb Mental Status Exam Mental Status Exam Patient Appearance: Unkempt Patient Orientation: Person Level of Consciousness: Sedated Patient Behavior: Guarded, Hyperactive, Restless and Confused Mood Description: Withdrawn and Labile Affect Description: Withdrawn, Constricted and Labile Patient Cognition Impaired: Yes Ability to Follow Directions: Poor Speech Pattern: Impoverished Hallucinations: Auditory Delusions: Paranoid Ideation and Ideas of Reference Thought Process: Distracted and Slowed Thinking Thought Content: positive for [place] Judgement: Poor Judgement and Insight: impaired Diagnostics Vital Signs (24Hr): BMI result Body Mass Index 25.1 Labs 03/30/24 08:49 03/30/24 08:49 Imaging Radiology Impressions: ITS Impressions Chest X-Ray 03/20/24 08:33 IMPRESSION: Extremely limited exam. Only lateral views could be obtained. Suspect basilar airspace opacity, possibly pneumonia. Electronically signed by: Fortino Dumont MD 03/20/2024 10:10 AM EST RP Cervical Spine CT 03/21/24 11:18 IMPRESSION: 1. Allowing for suboptimal positioning, there is no CT evidence of acute cervical spine fracture or injury. 2. Degenerative changes with bulky ventral osteophytes spanning C4-C6, appearance in keeping with DISH. Electronically signed by: Fortino Dumont MD 03/21/2024 12:01 PM EST RP Head CT 03/21/24 11:18 IMPRESSION: 1. No acute intracranial abnormality. No acute fractures seen. 2. Stable chronic findings as discussed. Electronically signed by: Fortino Dumont MD 03/21/2024 11:54 AM EST RP Pelvis CT 03/21/24 11:18 IMPRESSION: 1. No acute bony abnormalities. No fractures. 2. Constipation with a large amount of stool in the rectum and sigmoid colon. 3. Mild thickening of the urinary bladder wall despite underdistention, nonspecific. Differential includes the detrusor hypertrophy, neurogenic bladder, or possibly cystitis. Electronically signed by: Fortino Dumont MD 03/21/2024 12:09 PM EST RP Head CT 03/28/24 09:37 IMPRESSION: No acute fracture, bony calvarium. No acute intracranial hemorrhage. Small vessel occlusive disease. Bifrontal bitemporal lobe atrophy. Electronically signed by: Juan Corrigan MD 03/28/2024 10:19 AM [facility] Medications Medications Current Medications Acetaminophen (Acetaminophen 325 Mg Tablet) 650 mg PO Q6H PRN PRN Reason: Headache/Pain Mild Scale (1-3) Last Admin: 01/17/24 23:53 Dose: 325 mg Al Hydroxide/Mg Hydroxide (Magnesium Hydrox/Alum Hydrox 30 Ml Oral.Susp) 30 ml PO Q6H PRN PRN Reason: Heartburn/Nausea Aripiprazole (Aripiprazole Er 400 Mg Suser.Syr) 400 mg IM Q30D [facility] Last Admin: 04/04/24 15:05 Dose: 400 mg Aspirin (Aspirin 81 Mg Tab.Chew) 81 mg PO DAILY [facility] Last Admin: 04/15/24 11:08 Dose: Not Given Carbamazepine (Carbamazepine 200 Mg Tablet) 200 mg PO BID [facility] Last Admin: 04/15/24 21:05 Dose: 200 mg Clonidine (Clonidine 0.2 Mg Patch.Tdwk) 0.2 mg TRANSDERMA Fr@0900 [facility]; Protocol Last Admin: 04/13/24 16:27 Dose: Not Given Ferrous Sulfate (Ferrous Sulfate 324 Mg Tablet.Dr) 324 mg PO BID [facility] Last Admin: 04/15/24 21:04 Dose: Not Given Haloperidol Lactate (Haloperidol Lactate Oral Conc 10 Mg/5 Ml Oral.Conc) 5 mg PO Q6H PRN PRN Reason: Psychosis or severe agitation Last Admin: 04/14/24 16:38 Dose: 5 mg Haloperidol Lactate (Haloperidol Lactate Oral Conc 10 Mg/5 Ml Oral.Conc) 5 mg PO BID [facility] Last Admin: 04/15/24 21:06 Dose: 5 mg Haloperidol Lactate (Haloperidol Lactate 5 Mg/Ml Vial) 5 mg IM BID PRN PRN Reason: Refusal of Court PO Haldol Lorazepam (Lorazepam 1 Mg Tablet) 2 mg PO Q6H PRN PRN Reason: agitation/severe anxiety Last Admin: 04/15/24 21:06 Dose: 2 mg Magnesium Hydroxide (Milk Of Magnesia 30 Ml Oral.Susp) 30 ml PO DAILY PRN PRN Reason: Constipation Nicotine Polacrilex (Nicotine Polacrilex 2 Mg Gum) 2 mg BUCCAL Q2H PRN PRN Reason: Nicotine Cravings Trazodone HCl (Trazodone Hcl 50 Mg Tablet) 50 mg PO BEDTIME MRX1 PRN PRN Reason: Insomnia Last Admin: 04/14/24 21:57 Dose: 50 mg Valproic Acid (Valproic Acid Liquid 250 Mg/5 Ml Solution) 750 mg PO BID [facility] Last Admin: 04/15/24 21:07 Dose: 750 mg Vitamin D (Cholecalciferol (Vitamin D3) 25 Mcg Tablet) 50 mcg PO DAILY [facility] Last Admin: 04/15/24 08:08 Dose: Not Given Allergies Allergies Allergy/AdvReac Type Severity Reaction Status Date / Time lithium Allergy Unknown Verified 01/13/24 18:08 Assessment & Plan Assessment & Plan (1) Schizoaffective disorder, bipolar type: Status: Acute Code(s): F25.0 - Schizoaffective disorder, bipolar type (2) Hypertension: Status: Acute Code(s): I10 - Essential (primary) hypertension (3) Diabetes mellitus: Status: Acute Code(s): E11.9 - Type 2 diabetes mellitus without complications Plan 03/23 keep same treatment 68 yo from a [facility] with chronic psychotic disorder, refusing medication , elevated bp and disorganized and agitated behavior requiring psychiatric hospitalization and treatment not competent to sign cv. 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 Provide care as he will allow. 01/16: Depakote 250 mg bid Haldol, Lorazepam, Benadryl prn Section 7 to be filed 01/17 Message left for guardian. 01/17: Section Seven filed. . Court scheduled 01/26/24 Pt continues to refuse medicaitons. He is in need of full assist with ADL's and is incontinent. Pt transferred to [facility] this afternoon. 01/19/2024 Patient pending civil commitment loud agitated would not engage in any conversation with this underwriter non informational healing agitated verbally aggressive. Every attempt being made to get a copy of the patient's Servin order unclear why this has been so problematic. Encourage food and fluids 01/19 continue same treatment 01/21/24 Patient labile agitated intrusive close labs ordered in order to per to protect the community patient wandering into patient's rooms intrusive impulsive laying on another person's bed. Often hostile agitated posturing at times we are still pending copy of reported Servin order encourage p.o. compliance 01/22/2024 Patient did require physical hold escort him out of a room that he jumped in other patient's room and on their bed while there were in it. There was no physical harm and the patient did leave the room his markedly impulsive with poor judgment remains on close observation has intermittently taken Haldol liquid pending civil commitment treatment plan there is a question of Servin order 01/22 The patient had been more agitated. We review his Servin order and we are increasing the Abilify up to 15 mg p.o. daily and adding Haldol p.r.n. since it is in his role years order. We needed to give him some p.r.n. at 14:00. 01/23 The patient is grossly psychotic disrobing and sexually disinhibited we are starting Haldol 2 mg p.o. t.i.d. to target psychosis as per court order treatment over objection order. 01/24 The patient remains very agitated and angry disruptive so we are increasing the Haldol from 2 mg to 5 mg p.o. t.i.d. with a backup IM if the patient refused as per court order. 01/25 we have increased the Haldol but still he is very psychotic and restless. Today he refused his blood work. He needed to be physically held twice. 01/26 the patient remains agitated at times but his last IM backup was yesterday. We are going to increase Abilify up to 20 mg daily to target mood lability and psychosis. 01/29/2024: Increase frequency of prn doses from tid to prn q 6mrs. Poor insight and unable to care for self 02/08 pt has not take any of mood stabilizer. continues to have poor sleep, intrusive and combative requiring IM medications, increase haldol 10mg po TID, back up IM. Will add ativan 1mg po TID, also back up IM. Labs show elevated CK 2300, BUN 20, Cr 1.80, unclear baseline Cr as he does have CKD. Discussed with hospitalist Dr. Gama, to give IV fluids and monitor labs tomorrow. LFTs also elevated suspect this is secondary to elevation in CK and should trend down as CK goes down. 02/09 still agitated, creatinine and CPK slightly high as yesterday, he removed his IV line there is no big difference with IV hydration. We are changing his community role years to have more options since it is not working Abilify and Haldol 02/10 3 chemical restraints yesterday. appears more combative, and somewhat more confused. Will decrease amount of benzo and antihistamine given to him as it seems to be backfiring. did discuss with ICU attending, Dr. Whiteside possibility of transferring there but they would like us to try IV depakote and exhaust all resources prior to considering transfer. Pt did take depakote springkle 1000mg with apple sauce with much encourage. 02/11 continue tx. 02/12 continue same treatment 01/14 continue with Abilify and other court order medications, we are Namenda and the court order. 02/14 Team report improvement today with pt having greater comfort and less agitation. [id number] the staff reported that the patient had been less violent in the last 24 hours 02/16 continue tx. will check depakote and ammonia on 02/17 in AM. 02/17 continue regime and plan of care 02/26/2024: Continue current regimen as per court order 03/03 continue tx. lactulose for now as we don't have new ammonia level, but will try to chack labs. 03/16- continue medications, held clonidine patch for today due to low BP. repeat labs. 03/17-continue plan of care 03/18- continue tx 03/19 continue same treatment 03/20 waiting for CBC, basic metabolic panel and ammonia level. Today he nearly choked with a grape. We are going to change his diet to chopped 03/21 patient had a fall and he was assessed. No injuries as per CT scan of head and pelvis. Again he refused again his blood work vital signs within normal limits. 03/22 keep same treatment 03/23 keep same treatment 03 24 24 Continue plan of care Depakote Tegretol Haldol carbamazepine 03/25/2024 Repeat swallowing study ordered he is already on ground diet consider lowering Haldol versus Cogentin generally try to avoid older man 03/26 lowered Haldol to 7.5 p.o. b.i.d. 03/27 start Abilify Maintena 400 IM, later on we stopped it since he was over-sedated. 03/28 monitor vital signs and we will order blood work for tomorrow morning. 03/29 keep same treatment. We are deferring Abilify Maintena since the patient is still sedated and looks slightly delirious. He has refused blood work 03/31 continue current tx. less combative but no improvement in mentation. grossly disorganized and non sensical. 04/01: court ordered meds- team reviewing and optimizing same. 04/02 continue tx. 04/03 keep same treatment, so far he had been more compliant with some of the medications in the last 3 days. 04/04 start Abilify Maintena 400 mg IM 04/05 keep Haldol as prescribed 04/06 keep same treatment 04/08/24 continue current plan, regime 04/09/24 continue plan, CAT pending 04/10 continue same treatment 04/11 keep same treatment 04/12 lowering Haldol to 5 mg p.o. b.i.d. since the patient is over-sedated. 04/13 keep same treatment 04/14 agitated today, jumping around, dive off bed, crawling on all 4's, naked; took meds; now sleeping -floridly psychotic and underwriter thought best to let pt sleep Informed Consent: does not understand Reason for continued inpatient stay Substantial Risk for: inability to function Time Spent With Patient Time: Total time managing care of this patient today ____ minutes.
[2024-04-16] MEDS: traZODone HCL 50 MG TABLET PO (00:43)
[2024-04-16] MEDS: Haloperidol Lactate Oral Conc 10 MG/5 ML ORAL.CONC 5 MG PO ×3 (00:44→23:03)
[2024-04-16] MEDS: LORazepam 1 MG TABLET 2 MG PO ×2 (04:27→23:03)
[2024-04-16] MEDS: Haloperidol Lactate 5 MG/ML VIAL IM (08:51)
--- NOTE | 2024-04-16 09:25 | HO.PSYCHPN ---
Subjective Subjective Date of Service: 04/16/24 Reason For Visit: Schizoaffective disorder Subjective Notes: Conditional Voluntary Healthcare Proxy: Yes Interim History: The nursing staff reported no changes in his mental status he slept 7 hours he took his Tegretol and other medications. On interview the patient was slightly sedated in the morning, looks grossly disorganized. Mental Status Exam Mental Status Exam Patient Appearance: Unkempt Patient Orientation: Person Level of Consciousness: Awake and Lethargic Patient Behavior: Guarded Mood Description: Withdrawn Affect Description: Blunted Patient Cognition Impaired: Yes Ability to Follow Directions: Good Speech Pattern: Impoverished Hallucinations: Auditory Delusions: Paranoid Ideation and Ideas of Reference Thought Process: Distracted and Slowed Thinking Thought Content: positive for [place] and positive for Poverty of Content Judgement: Poor Diagnostics Vital Signs (24Hr): BMI result Body Mass Index 25.1 Labs 03/30/24 08:49 03/30/24 08:49 Imaging Radiology Impressions: ITS Impressions Chest X-Ray 03/20/24 08:33 IMPRESSION: Extremely limited exam. Only lateral views could be obtained. Suspect basilar airspace opacity, possibly pneumonia. Electronically signed by: Fortino Dumont MD 03/20/2024 10:10 AM EST RP Cervical Spine CT 03/21/24 11:18 IMPRESSION: 1. Allowing for suboptimal positioning, there is no CT evidence of acute cervical spine fracture or injury. 2. Degenerative changes with bulky ventral osteophytes spanning C4-C6, appearance in keeping with DISH. Electronically signed by: Fortino Dumont MD 03/21/2024 12:01 PM EST RP Head CT 03/21/24 11:18 IMPRESSION: 1. No acute intracranial abnormality. No acute fractures seen. 2. Stable chronic findings as discussed. Electronically signed by: Fortino Dumont MD 03/21/2024 11:54 AM EST RP Pelvis CT 03/21/24 11:18 IMPRESSION: 1. No acute bony abnormalities. No fractures. 2. Constipation with a large amount of stool in the rectum and sigmoid colon. 3. Mild thickening of the urinary bladder wall despite underdistention, nonspecific. Differential includes the detrusor hypertrophy, neurogenic bladder, or possibly cystitis. Electronically signed by: Fortino Dumont MD 03/21/2024 12:09 PM EST RP Head CT 03/28/24 09:37 IMPRESSION: No acute fracture, bony calvarium. No acute intracranial hemorrhage. Small vessel occlusive disease. Bifrontal bitemporal lobe atrophy. Electronically signed by: Juan Corrigan MD 03/28/2024 10:19 AM EST RP Medications Medications Current Medications Acetaminophen (Acetaminophen 325 Mg Tablet) 650 mg PO Q6H PRN PRN Reason: Headache/Pain Mild Scale (1-3) Last Admin: 01/17/24 23:53 Dose: 325 mg Al Hydroxide/Mg Hydroxide (Magnesium Hydrox/Alum Hydrox 30 Ml Oral.Susp) 30 ml PO Q6H PRN PRN Reason: Heartburn/Nausea Aripiprazole (Aripiprazole Er 400 Mg Suser.Syr) 400 mg IM Q30D [facility] Last Admin: 04/04/24 15:05 Dose: 400 mg Aspirin (Aspirin 81 Mg Tab.Chew) 81 mg PO DAILY [facility] Last Admin: 04/16/24 08:50 Dose: Not Given Carbamazepine (Carbamazepine 200 Mg Tablet) 200 mg PO BID [facility] Last Admin: 04/16/24 08:50 Dose: Not Given Clonidine (Clonidine 0.2 Mg Patch.Tdwk) 0.2 mg TRANSDERMA Fr@0900 [facility]; Protocol Last Admin: 04/13/24 16:27 Dose: Not Given Ferrous Sulfate (Ferrous Sulfate 324 Mg Tablet.Dr) 324 mg PO BID [facility] Last Admin: 04/16/24 08:50 Dose: Not Given Haloperidol Lactate (Haloperidol Lactate Oral Conc 10 Mg/5 Ml Oral.Conc) 5 mg PO Q6H PRN PRN Reason: Psychosis or severe agitation Last Admin: 04/16/24 00:44 Dose: 5 mg Haloperidol Lactate (Haloperidol Lactate Oral Conc 10 Mg/5 Ml Oral.Conc) 5 mg PO BID [facility] Last Admin: 04/16/24 08:50 Dose: Not Given Haloperidol Lactate (Haloperidol Lactate 5 Mg/Ml Vial) 5 mg IM BID PRN PRN Reason: Refusal of Court PO Haldol Last Admin: 04/16/24 08:51 Dose: 5 mg Lorazepam (Lorazepam 1 Mg Tablet) 2 mg PO Q6H PRN PRN Reason: agitation/severe anxiety Last Admin: 04/16/24 04:27 Dose: 2 mg Magnesium Hydroxide (Milk Of Magnesia 30 Ml Oral.Susp) 30 ml PO DAILY PRN PRN Reason: Constipation Nicotine Polacrilex (Nicotine Polacrilex 2 Mg Gum) 2 mg BUCCAL Q2H PRN PRN Reason: Nicotine Cravings Trazodone HCl (Trazodone Hcl 50 Mg Tablet) 50 mg PO BEDTIME MRX1 PRN PRN Reason: Insomnia Last Admin: 04/16/24 00:43 Dose: 50 mg Valproic Acid (Valproic Acid Liquid 250 Mg/5 Ml Solution) 750 mg PO BID [facility] Last Admin: 04/16/24 08:50 Dose: Not Given Vitamin D (Cholecalciferol (Vitamin D3) 25 Mcg Tablet) 50 mcg PO DAILY [facility] Last Admin: 04/16/24 08:50 Dose: Not Given Allergies Allergies Allergy/AdvReac Type Severity Reaction Status Date / Time lithium Allergy Unknown Verified 01/13/24 18:08 Assessment & Plan Assessment & Plan (1) Schizoaffective disorder, bipolar type: Status: Acute Code(s): F25.0 - Schizoaffective disorder, bipolar type (2) Hypertension: Status: Acute Code(s): I10 - Essential (primary) hypertension (3) Diabetes mellitus: Status: Acute Code(s): E11.9 - Type 2 diabetes mellitus without complications Plan 03/23 keep same treatment 68 yo from a shelter with chronic psychotic disorder, refusing medication , elevated bp and disorganized and agitated behavior requiring psychiatric hospitalization and treatment not competent to sign cv. 01/14 continue to follow - gave lambs warning today- and he says the aerospace engineer officer armament will be a she- still refusing medications and quite psychotic takes alot of redirection to settle him poor adls- 01/15- Refuses meds, refuses hospitalist consult-second day File for Section Seven consideration on 01/17. Provide care as he will allow. 01/16: Depakote 250 mg bid Haldol, Lorazepam, Benadryl prn Section 7 to be filed 01/17 Message left for guardian. 01/17: Section Seven filed. . Court scheduled 01/26/24 Pt continues to refuse medicaitons. He is in need of full assist with ADL's and is incontinent. Pt transferred to [facility] this afternoon. 01/19/2024 Patient pending civil commitment loud agitated would not engage in any conversation with this medical underwriter non informational healing agitated verbally aggressive. Every attempt being made to get a copy of the patient's Servin order unclear why this has been so problematic. Encourage food and fluids 01/19 continue same treatment 01/21/24 Patient labile agitated intrusive close labs ordered in order to per to protect the community patient wandering into patient's rooms intrusive impulsive laying on another person's bed. Often hostile agitated posturing at times we are still pending copy of reported Servin order encourage p.o. compliance 01/22/2024 Patient did require physical hold escort him out of a room that he jumped in other patient's room and on their bed while there were in it. There was no physical harm and the patient did leave the room his markedly impulsive with poor judgment remains on close observation has intermittently taken Haldol liquid pending civil commitment treatment plan there is a question of Servin order 01/22 The patient had been more agitated. We review his Servin order and we are increasing the Abilify up to 15 mg p.o. daily and adding Haldol p.r.n. since it is in his role years order. We needed to give him some p.r.n. at 14:00. 01/23 The patient is grossly psychotic disrobing and sexually disinhibited we are starting Haldol 2 mg p.o. t.i.d. to target psychosis as per court order treatment over objection order. 01/24 The patient remains very agitated and angry disruptive so we are increasing the Haldol from 2 mg to 5 mg p.o. t.i.d. with a backup IM if the patient refused as per court order. 01/25 we have increased the Haldol but still he is very psychotic and restless. Today he refused his blood work. He needed to be physically held twice. 01/26 the patient remains agitated at times but his last IM backup was yesterday. We are going to increase Abilify up to 20 mg daily to target mood lability and psychosis. 01/29/2024: Increase frequency of prn doses from tid to prn q 6mrs. Poor insight and unable to care for self 02/08 pt has not take any of mood stabilizer. continues to have poor sleep, intrusive and combative requiring IM medications, increase haldol 10mg po TID, back up IM. Will add ativan 1mg po TID, also back up IM. Labs show elevated CK 2300, BUN 20, Cr 1.80, unclear baseline Cr as he does have CKD. Discussed with hospitalist Dr. Gama, to give IV fluids and monitor labs tomorrow. LFTs also elevated suspect this is secondary to elevation in CK and should trend down as CK goes down. 02/09 still agitated, creatinine and CPK slightly high as yesterday, he removed his IV line there is no big difference with IV hydration. We are changing his community role years to have more options since it is not working Abilify and Haldol 02/10 3 chemical restraints yesterday. appears more combative, and somewhat more confused. Will decrease amount of benzo and antihistamine given to him as it seems to be backfiring. did discuss with ICU attending, Dr. Whiteside possibility of transferring there but they would like us to try IV depakote and exhaust all resources prior to considering transfer. Pt did take depakote springkle 1000mg with apple sauce with much encourage. 02/11 continue tx. 02/12 continue same treatment 01/14 continue with Abilify and other court order medications, we are Nam[place] and the court order. 02/14 Team report improvement today with pt having greater comfort and less agitation. [id number] the staff reported that the patient had been less violent in the last 24 hours 02/16 continue tx. will check depakote and ammonia on 02/17 in AM. 02/17 continue regime and plan of care 02/26/2024: Continue current regimen as per court order 03/03 continue tx. lactulose for now as we don't have new ammonia level, but will try to chack labs. 03/16- continue medications, held clonidine patch for today due to low BP. repeat labs. 03/17-continue plan of care 03/18- continue tx 03/19 continue same treatment 03/20 waiting for CBC, basic metabolic panel and ammonia level. Today he nearly choked with a grape. We are going to change his diet to chopped 03/21 patient had a fall and he was assessed. No injuries as per CT scan of head and pelvis. Again he refused again his blood work vital signs within normal limits. 03/22 keep same treatment 03/23 keep same treatment 03 24 24 Continue plan of care Depakote Tegretol Haldol carbamazepine 03/25/2024 Repeat swallowing study ordered he is already on ground diet consider lowering Haldol versus Cogentin generally try to avoid older man 03/26 lowered Haldol to 7.5 p.o. b.i.d. 03/27 start Abilify Maintena 400 IM, later on we stopped it since he was over-sedated. 03/28 monitor vital signs and we will order blood work for tomorrow morning. 03/29 keep same treatment. We are deferring Abilify Maintena since the patient is still sedated and looks slightly delirious. He has refused blood work 03/31 continue current tx. less combative but no improvement in mentation. grossly disorganized and non sensical. 04/01: court ordered meds- team reviewing and optimizing same. 04/02 continue tx. 04/03 keep same treatment, so far he had been more compliant with some of the medications in the last 3 days. 04/04 start Abilify Maintena 400 mg IM 04/05 keep Haldol as prescribed 04/06 keep same treatment 04/08/24 continue current plan, regime 04/09/24 continue plan, CAT pending 04/10 continue same treatment 04/11 keep same treatment 04/12 lowering Haldol to 5 mg p.o. b.i.d. since the patient is over-sedated. 04/13 keep same treatment 04/14 agitated today, jumping around, dive off bed, crawling on all 4's, naked; took meds; now sleeping -floridly psychotic and medical underwriter thought best to let pt sleep 04/16 keep same treatment Reason for continued inpatient stay Substantial Risk for: inability to function, rapid decompensation and med/psych decompensation Time Spent With Patient Time: Total time managing care of this patient today __20__ minutes.
[2024-04-16 20:00] VITALS: BP 109/55; PULSE 62; RESP 16; TEMP 36.3; O2SAT 99
[2024-04-16] MEDS: Valproic Acid Liquid 250 MG/5 ML SOLUTION 750 MG PO (20:03)
[2024-04-16] MEDS: carBAMazepine 200 MG TABLET PO (20:03)
[2024-04-17] MEDS: Haloperidol Lactate 5 MG/ML VIAL IM (10:19)
[2024-04-17] MEDS: ARIPiprazole ER 400 MG SUSER.SYR IM (10:19)
--- NOTE | 2024-04-17 10:25 | HO.PSYCHPN ---
Subjective Subjective Date of Service: 04/17/24 Reason For Visit: Schizoaffective disorder Subjective Notes: Conditional Voluntary Interim History: The nursing staff reported no changes in her mental status he received his p.r.n. Bairondol slept 4 hours. On interview the patient remains internally preoccupied psychotic. We decided to add a 2nd dose of Abilify 400 mg IM today Mental Status Exam Mental Status Exam Patient Appearance: Appropriate Patient Orientation: Person Level of Consciousness: Awake Patient Behavior: Guarded and Passive Mood Description: Calm Affect Description: Blunted Patient Cognition Impaired: Yes Ability to Follow Directions: Fair Speech Pattern: Impoverished Hallucinations: None Delusions: Paranoid Ideation and Ideas of Reference Thought Process: Distracted and Slowed Thinking Thought Content: positive for [place] and positive for Poverty of Content Judgement: Poor Diagnostics Vital Signs (24Hr): Vital Signs - 24 hr 04/16/24 20:00 Temperature 97.3 F Pulse Rate 62 Respiratory Rate 16 Blood Pressure 109/55 L Pulse Oximetry 99 Oxygen Delivery Method Room Air BMI result Body Mass Index 25.1 Labs 03/30/24 08:49 03/30/24 08:49 Imaging Radiology Impressions: ITS Impressions Chest X-Ray 03/20/24 08:33 IMPRESSION: Extremely limited exam. Only lateral views could be obtained. Suspect basilar airspace opacity, possibly pneumonia. Electronically signed by: Fortino Dumont MD 03/20/2024 10:10 AM EST RP Cervical Spine CT 03/21/24 11:18 IMPRESSION: 1. Allowing for suboptimal positioning, there is no CT evidence of acute cervical spine fracture or injury. 2. Degenerative changes with bulky ventral osteophytes spanning C4-C6, appearance in keeping with DISH. Electronically signed by: Fortino Dumont MD 03/21/2024 12:01 PM EST RP Head CT 03/21/24 11:18 IMPRESSION: 1. No acute intracranial abnormality. No acute fractures seen. 2. Stable chronic findings as discussed. Electronically signed by: Fortino Dumont MD 03/21/2024 11:54 AM EST RP Pelvis CT 03/21/24 11:18 IMPRESSION: 1. No acute bony abnormalities. No fractures. 2. Constipation with a large amount of stool in the rectum and sigmoid colon. 3. Mild thickening of the urinary bladder wall despite underdistention, nonspecific. Differential includes the detrusor hypertrophy, neurogenic bladder, or possibly cystitis. Electronically signed by: Fortino Dumont MD 03/21/2024 12:09 PM EST RP Head CT 03/28/24 09:37 IMPRESSION: No acute fracture, bony calvarium. No acute intracranial hemorrhage. Small vessel occlusive disease. Bifrontal bitemporal lobe atrophy. Electronically signed by: Juan Corrigan MD 03/28/2024 10:19 AM EST RP Medications Medications Current Medications Acetaminophen (Acetaminophen 325 Mg Tablet) 650 mg PO Q6H PRN PRN Reason: Headache/Pain Mild Scale (1-3) Last Admin: 01/17/24 23:53 Dose: 325 mg Al Hydroxide/Mg Hydroxide (Magnesium Hydrox/Alum Hydrox 30 Ml Oral.Susp) 30 ml PO Q6H PRN PRN Reason: Heartburn/Nausea Aripiprazole (Aripiprazole Er 400 Mg Suser.Syr) 400 mg IM Q30D [facility] Aspirin (Aspirin 81 Mg Tab.Chew) 81 mg PO DAILY [facility] Last Admin: 04/16/24 08:50 Dose: Not Given Carbamazepine (Carbamazepine 200 Mg Tablet) 200 mg PO BID [facility] Last Admin: 04/16/24 20:03 Dose: 200 mg Clonidine (Clonidine 0.2 Mg Patch.Tdwk) 0.2 mg TRANSDERMA Fr@0900 [facility]; Protocol Last Admin: 04/13/24 16:27 Dose: Not Given Ferrous Sulfate (Ferrous Sulfate 324 Mg Tablet.) 324 mg PO BID [facility] Last Admin: 04/16/24 20:14 Dose: Not Given Haloperidol Lactate (Haloperidol Lactate Oral Conc 10 Mg/5 Ml Oral.Conc) 5 mg PO Q6H PRN PRN Reason: Psychosis or severe agitation Last Admin: 04/16/24 23:03 Dose: 5 mg Haloperidol Lactate (Haloperidol Lactate Oral Conc 10 Mg/5 Ml Oral.Conc) 5 mg PO BID [facility] Last Admin: 04/16/24 20:04 Dose: 5 mg Haloperidol Lactate (Haloperidol Lactate 5 Mg/Ml Vial) 5 mg IM BID PRN PRN Reason: Refusal of Court PO Haldol Last Admin: 04/16/24 08:51 Dose: 5 mg Lorazepam (Lorazepam 1 Mg Tablet) 2 mg PO Q6H PRN PRN Reason: agitation/severe anxiety Last Admin: 04/16/24 23:03 Dose: 2 mg Magnesium Hydroxide (Milk Of Magnesia 30 Ml Oral.Susp) 30 ml PO DAILY PRN PRN Reason: Constipation Nicotine Polacrilex (Nicotine Polacrilex 2 Mg Gum) 2 mg BUCCAL Q2H PRN PRN Reason: Nicotine Cravings Trazodone HCl (Trazodone Hcl 50 Mg Tablet) 50 mg PO BEDTIME MRX1 PRN PRN Reason: Insomnia Last Admin: 04/16/24 00:43 Dose: 50 mg Valproic Acid (Valproic Acid Liquid 250 Mg/5 Ml Solution) 750 mg PO BID [facility] Last Admin: 04/16/24 20:03 Dose: 750 mg Vitamin D (Cholecalciferol (Vitamin D3) 25 Mcg Tablet) 50 mcg PO DAILY [facility] Last Admin: 04/16/24 08:50 Dose: Not Given Allergies Allergies Allergy/AdvReac Type Severity Reaction Status Date / Time lithium Allergy Unknown Verified 01/13/24 18:08 Assessment & Plan Assessment & Plan (1) Schizoaffective disorder, bipolar type: Status: Acute Code(s): F25.0 - Schizoaffective disorder, bipolar type (2) Hypertension: Status: Acute Code(s): I10 - Essential (primary) hypertension (3) Diabetes mellitus: Status: Acute Code(s): E11.9 - Type 2 diabetes mellitus without complications Plan 03/23 keep same treatment 68 yo from a care home with chronic psychotic disorder, refusing medication , elevated bp and disorganized and agitated behavior requiring psychiatric hospitalization and treatment not competent to sign cv. 01/14 continue to follow - gave lambs warning today- and he says the senior restaurant manager will be a she- still refusing medications and quite psychotic takes alot of redirection to settle him poor adls- 01/15- Refuses meds, refuses hospitalist consult-second day File for Section Seven consideration on 01/17. Provide care as he will allow. 01/16: Depakote 250 mg bid Haldol, Lorazepam, Benadryl prn Section 7 to be filed 01/17 Message left for guardian. 01/17: Section Seven filed. . Court scheduled 01/26/24 Pt continues to refuse medicaitons. He is in need of full assist with ADL's and is incontinent. Pt transferred to [facility] this afternoon. 01/19/2024 Patient pending civil commitment loud agitated would not engage in any conversation with this casualty underwriter non informational healing agitated verbally aggressive. Every attempt being made to get a copy of the patient's Servin order unclear why this has been so problematic. Encourage food and fluids 01/19 continue same treatment 01/21/24 Patient labile agitated intrusive close labs ordered in order to per to protect the community patient wandering into patient's rooms intrusive impulsive laying on another person's bed. Often hostile agitated posturing at times we are still pending copy of reported Servin order encourage p.o. compliance 01/22/2024 Patient did require physical hold escort him out of a room that he jumped in other patient's room and on their bed while there were in it. There was no physical harm and the patient did leave the room his markedly impulsive with poor judgment remains on close observation has intermittently taken Haldol liquid pending civil commitment treatment plan there is a question of Servin order 01/22 The patient had been more agitated. We review his Servin order and we are increasing the Abilify up to 15 mg p.o. daily and adding Haldol p.r.n. since it is in his role years order. We needed to give him some p.r.n. at 14:00. 01/23 The patient is grossly psychotic disrobing and sexually disinhibited we are starting Haldol 2 mg p.o. t.i.d. to target psychosis as per court order treatment over objection order. 01/24 The patient remains very agitated and angry disruptive so we are increasing the Haldol from 2 mg to 5 mg p.o. t.i.d. with a backup IM if the patient refused as per court order. 01/25 we have increased the Haldol but still he is very psychotic and restless. Today he refused his blood work. He needed to be physically held twice. 01/26 the patient remains agitated at times but his last IM backup was yesterday. We are going to increase Abilify up to 20 mg daily to target mood lability and psychosis. 01/29/2024: Increase frequency of prn doses from tid to prn q 6mrs. Poor insight and unable to care for self 02/08 pt has not take any of mood stabilizer. continues to have poor sleep, intrusive and combative requiring IM medications, increase haldol 10mg po TID, back up IM. Will add ativan 1mg po TID, also back up IM. Labs show elevated CK 2300, BUN 20, Cr 1.80, unclear baseline Cr as he does have CKD. Discussed with hospitalist Dr. Gama, to give IV fluids and monitor labs tomorrow. LFTs also elevated suspect this is secondary to elevation in CK and should trend down as CK goes down. 02/09 still agitated, creatinine and CPK slightly high as yesterday, he removed his IV line there is no big difference with IV hydration. We are changing his community role years to have more options since it is not working Abilify and Haldol 02/10 3 chemical restraints yesterday. appears more combative, and somewhat more confused. Will decrease amount of benzo and antihistamine given to him as it seems to be backfiring. did discuss with ICU attending, Dr. Whiteside possibility of transferring there but they would like us to try IV depakote and exhaust all resources prior to considering transfer. Pt did take depakote springkle 1000mg with apple sauce with much encourage. 02/11 continue tx. 02/12 continue same treatment 01/14 continue with Abilify and other court order medications, we are Nam[place] and the court order. 02/14 Team report improvement today with pt having greater comfort and less agitation. [id number] the staff reported that the patient had been less violent in the last 24 hours 02/16 continue tx. will check depakote and ammonia on 02/17 in AM. 02/17 continue regime and plan of care 02/26/2024: Continue current regimen as per court order 03/03 continue tx. lactulose for now as we don't have new ammonia level, but will try to chack labs. 03/16- continue medications, held clonidine patch for today due to low BP. repeat labs. 03/17-continue plan of care 03/18- continue tx 03/19 continue same treatment 03/20 waiting for CBC, basic metabolic panel and ammonia level. Today he nearly choked with a grape. We are going to change his diet to chopped 03/21 patient had a fall and he was assessed. No injuries as per CT scan of head and pelvis. Again he refused again his blood work vital signs within normal limits. 03/22 keep same treatment 03/23 keep same treatment 03 24 24 Continue plan of care Depakote Tegretol Haldol carbamazepine 03/25/2024 Repeat swallowing study ordered he is already on ground diet consider lowering Haldol versus Cogentin generally try to avoid older man 03/26 lowered Haldol to 7.5 p.o. b.i.d. 03/27 start Abilify Maintena 400 IM, later on we stopped it since he was over-sedated. 03/28 monitor vital signs and we will order blood work for tomorrow morning. 03/29 keep same treatment. We are deferring Abilify Maintena since the patient is still sedated and looks slightly delirious. He has refused blood work 03/31 continue current tx. less combative but no improvement in mentation. grossly disorganized and non sensical. 04/01: court ordered meds- team reviewing and optimizing same. 04/02 continue tx. 04/03 keep same treatment, so far he had been more compliant with some of the medications in the last 3 days. 04/04 start Abilify Maintena 400 mg IM 04/05 keep Haldol as prescribed 04/06 keep same treatment 04/08/24 continue current plan, regime 04/09/24 continue plan, CAT pending 04/10 continue same treatment 04/11 keep same treatment 04/12 lowering Haldol to 5 mg p.o. b.i.d. since the patient is over-sedated. 04/13 keep same treatment 04/14 agitated today, jumping around, dive off bed, crawling on all 4's, naked; took meds; now sleeping -floridly psychotic and casualty underwriter thought best to let pt sleep 04/16 keep same treatment 04/16 Abilify Maintena 400 mg today and scheduled next for 30 days Reason for continued inpatient stay Substantial Risk for: inability to function, rapid decompensation and med/psych decompensation Time Spent With Patient Time: Total time managing care of this patient today __20__ minutes.
[2024-04-17] MEDS: Haloperidol Lactate Oral Conc 10 MG/5 ML ORAL.CONC 5 MG PO (21:26)
[2024-04-17] MEDS: Valproic Acid Liquid 250 MG/5 ML SOLUTION 750 MG PO (21:26)
[2024-04-17] MEDS: LORazepam 1 MG TABLET 2 MG PO (21:27)
[2024-04-17] MEDS: traZODone HCL 50 MG TABLET PO ×2 (21:27→23:03)
[2024-04-17] MEDS: carBAMazepine 200 MG TABLET PO (21:27)
[2024-04-18] MEDS: Haloperidol Lactate 5 MG/ML VIAL IM (07:43)
--- NOTE | 2024-04-18 09:52 | P.PNPSI_ITS ---
Subjective Subjective Date of Service: 04/18/24 Reason For Visit: Schizoaffective disorder Subjective Notes: Section 7 and Section 8 Interim History: The nursing staff reported the patient refused his Haldol p.o. and he received IM. He had been restless took medications and PRNs more active. On interview the patient remains grossly disorganized he received yesterday his Abilify Maintena 400 mg. He was more verbal and awake, disrespectful at times. Mental Status Exam Mental Status Exam Patient Appearance: Appropriate Patient Orientation: Person and Situation Level of Consciousness: Awake and Appropriate Patient Behavior: Guarded and Passive Mood Description: Withdrawn Affect Description: Constricted Patient Cognition Impaired: Yes Ability to Follow Directions: Good Speech Pattern: Clear Hallucinations: Auditory Delusions: Paranoid Ideation and Ideas of Reference Thought Process: Distracted and Slowed Thinking Thought Content: positive for Spencer and positive for Poverty of Content Judgement: Poor Diagnostics Vital Signs (24Hr): BMI result Body Mass Index 25.1 Labs 03/30/24 08:49 03/30/24 08:49 Imaging Radiology Impressions: ITS Impressions Chest X-Ray 03/20/24 08:33 IMPRESSION: Extremely limited exam. Only lateral views could be obtained. Suspect basilar airspace opacity, possibly pneumonia. Electronically signed by: Fortino Dumont MD 03/20/2024 10:10 AM [employer] RP Cervical Spine CT 03/21/24 11:18 IMPRESSION: 1. Allowing for suboptimal positioning, there is no CT evidence of acute cervical spine fracture or injury. 2. Degenerative changes with bulky ventral osteophytes spanning C4-C6, appearance in keeping with DISH. Electronically signed by: Fortino Dumont MD 03/21/2024 12:01 PM EST RP Head CT 03/21/24 11:18 IMPRESSION: 1. No acute intracranial abnormality. No acute fractures seen. 2. Stable chronic findings as discussed. Electronically signed by: Fortino Dumont MD 03/21/2024 11:54 AM EST RP Pelvis CT 03/21/24 11:18 IMPRESSION: 1. No acute bony abnormalities. No fractures. 2. Constipation with a large amount of stool in the rectum and sigmoid colon. 3. Mild thickening of the urinary bladder wall despite underdistention, nonspecific. Differential includes the detrusor hypertrophy, neurogenic bladder, or possibly cystitis. Electronically signed by: Fortino Dumont MD 03/21/2024 12:09 PM EST RP Head CT 03/28/24 09:37 IMPRESSION: No acute fracture, bony calvarium. No acute intracranial hemorrhage. Small vessel occlusive disease. Bifrontal bitemporal lobe atrophy. Electronically signed by: Juan Corrigan MD 03/28/2024 10:19 AM EST RP Medications Medications Current Medications Acetaminophen (Acetaminophen 325 Mg Tablet) 650 mg PO Q6H PRN PRN Reason: Headache/Pain Mild Scale (1-3) Last Admin: 01/17/24 23:53 Dose: 325 mg Al Hydroxide/Mg Hydroxide (Magnesium Hydrox/Alum Hydrox 30 Ml Oral.Susp) 30 ml PO Q6H PRN PRN Reason: Heartburn/Nausea Aripiprazole (Aripiprazole Er 400 Mg Suser.Syr) 400 mg IM Q30D [facility] Aspirin (Aspirin 81 Mg Tab.Chew) 81 mg PO DAILY [facility] Last Admin: 04/18/24 09:35 Dose: Not Given Carbamazepine (Carbamazepine 200 Mg Tablet) 200 mg PO BID [facility] Last Admin: 04/18/24 09:35 Dose: Not Given Clonidine (Clonidine 0.2 Mg Patch.Tdwk) 0.2 mg TRANSDERMA Fr@0900 [facility]; Protocol Last Admin: 04/13/24 16:27 Dose: Not Given Ferrous Sulfate (Ferrous Sulfate 324 Mg Tablet.Dr) 324 mg PO BID [facility] Last Admin: 04/18/24 09:35 Dose: Not Given Haloperidol Lactate (Haloperidol Lactate Oral Conc 10 Mg/5 Ml Oral.Conc) 5 mg PO Q6H PRN PRN Reason: Psychosis or severe agitation Last Admin: 04/16/24 23:03 Dose: 5 mg Haloperidol Lactate (Haloperidol Lactate Oral Conc 10 Mg/5 Ml Oral.Conc) 5 mg PO BID [facility] Last Admin: 04/18/24 09:35 Dose: Not Given Haloperidol Lactate (Haloperidol Lactate 5 Mg/Ml Vial) 5 mg IM BID PRN PRN Reason: Refusal of Court PO Haldol Last Admin: 04/18/24 07:43 Dose: 5 mg Lorazepam (Lorazepam 1 Mg Tablet) 2 mg PO Q6H PRN PRN Reason: agitation/severe anxiety Last Admin: 04/17/24 21:27 Dose: 2 mg Magnesium Hydroxide (Milk Of Magnesia 30 Ml Oral.Susp) 30 ml PO DAILY PRN PRN Reason: Constipation Nicotine Polacrilex (Nicotine Polacrilex 2 Mg Gum) 2 mg BUCCAL Q2H PRN PRN Reason: Nicotine Cravings Trazodone HCl (Trazodone Hcl 50 Mg Tablet) 50 mg PO BEDTIME MRX1 PRN PRN Reason: Insomnia Last Admin: 04/17/24 23:03 Dose: 50 mg Valproic Acid (Valproic Acid Liquid 250 Mg/5 Ml Solution) 750 mg PO BID [facility] Last Admin: 04/18/24 09:35 Dose: Not Given Vitamin D (Cholecalciferol (Vitamin D3) 25 Mcg Tablet) 50 mcg PO DAILY [facility] Last Admin: 04/18/24 09:35 Dose: Not Given Allergies Allergies Allergy/AdvReac Type Severity Reaction Status Date / Time lithium Allergy Unknown Verified 01/13/24 18:08 Assessment & Plan Assessment & Plan (1) Schizoaffective disorder, bipolar type: Status: Acute Code(s): F25.0 - Schizoaffective disorder, bipolar type (2) Hypertension: Status: Acute Code(s): I10 - Essential (primary) hypertension (3) Diabetes mellitus: Status: Acute Code(s): E11.9 - Type 2 diabetes mellitus without complications Plan 03/23 keep same treatment 68 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 01/14 continue to follow - gave lambs warning today- and he says the heel breaster will be a she- still refusing medications and quite psychotic takes alot of redirection to settle him poor adls- 01/15- Refuses meds, refuses hospitalist consult-second day File for Section Seven consideration on 01/17. Provide care as he will allow. 01/16: Depakote 250 mg bid Haldol, Lorazepam, Benadryl prn Section 7 to be filed 01/17 Message left for guardian. 01/17: Section Seven filed. . Court scheduled 01/26/24 Pt continues to refuse medicaitons. He is in need of full assist with ADL's and is incontinent. Pt transferred to [facility] this afternoon. 01/19/2024 Patient pending civil commitment loud agitated would not engage in any conversation with this director underwriter sales non informational healing agitated verbally aggressive. Every attempt being made to get a copy of the patient's Servin order unclear why this has been so problematic. Encourage food and fluids 01/19 continue same treatment 01/21/24 Patient labile agitated intrusive close labs ordered in order to per to protect the community patient wandering into patient's rooms intrusive impulsive laying on another person's bed. Often hostile agitated posturing at times we are still pending copy of reported Servin order encourage p.o. compliance 01/22/2024 Patient did require physical hold escort him out of a room that he jumped in other patient's room and on their bed while there were in it. There was no physical harm and the patient did leave the room his markedly impulsive with poor judgment remains on close observation has intermittently taken Haldol liquid pending civil commitment treatment plan there is a question of Servin order 01/22 The patient had been more agitated. We review his Servin order and we are increasing the Abilify up to 15 mg p.o. daily and adding Haldol p.r.n. since it is in his role years order. We needed to give him some p.r.n. at 14:00. 01/23 The patient is grossly psychotic disrobing and sexually disinhibited we are starting Haldol 2 mg p.o. t.i.d. to target psychosis as per court order treatment over objection order. 01/24 The patient remains very agitated and angry disruptive so we are increasing the Haldol from 2 mg to 5 mg p.o. t.i.d. with a backup IM if the patient refused as per court order. 01/25 we have increased the Haldol but still he is very psychotic and restless. Today he refused his blood work. He needed to be physically held twice. 01/26 the patient remains agitated at times but his last IM backup was yesterday. We are going to increase Abilify up to 20 mg daily to target mood lability and psychosis. 01/29/2024: Increase frequency of prn doses from tid to prn q 6mrs. Poor insight and unable to care for self 02/08 pt has not take any of mood stabilizer. continues to have poor sleep, intrusive and combative requiring IM medications, increase haldol 10mg po TID, back up IM. Will add ativan 1mg po TID, also back up IM. Labs show elevated CK 2300, BUN 20, Cr 1.80, unclear baseline Cr as he does have CKD. Discussed with hospitalist Dr. Gama, to give IV fluids and monitor labs tomorrow. LFTs also elevated suspect this is secondary to elevation in CK and should trend down as CK goes down. 02/09 still agitated, creatinine and CPK slightly high as yesterday, he removed his IV line there is no big difference with IV hydration. We are changing his community role years to have more options since it is not working Abilify and Haldol 02/10 3 chemical restraints yesterday. appears more combative, and somewhat more confused. Will decrease amount of benzo and antihistamine given to him as it seems to be backfiring. did discuss with ICU attending, Dr. Whiteside possibility of transferring there but they would like us to try IV depakote and exhaust all resources prior to considering transfer. Pt did take depakote springkle 1000mg with apple sauce with much encourage. 02/11 continue tx. 02/12 continue same treatment 01/14 continue with Abilify and other court order medications, we are Namenda and the court order. 02/14 Team report improvement today with pt having greater comfort and less agitation. [id number] the staff reported that the patient had been less violent in the last 24 hours 02/16 continue tx. will check depakote and ammonia on 02/17 in AM. 02/17 continue regime and plan of care 02/26/2024: Continue current regimen as per court order 03/03 continue tx. lactulose for now as we don't have new ammonia level, but will try to chack labs. 03/16- continue medications, held clonidine patch for today due to low BP. repeat labs. 03/17-continue plan of care 03/18- continue tx 03/19 continue same treatment 03/20 waiting for CBC, basic metabolic panel and ammonia level. Today he nearly choked with a grape. We are going to change his diet to chopped 03/21 patient had a fall and he was assessed. No injuries as per CT scan of head and pelvis. Again he refused again his blood work vital signs within normal limits. 03/22 keep same treatment 03/23 keep same treatment 03 24 24 Continue plan of care Depakote Tegretol Haldol carbamazepine 03/25/2024 Repeat swallowing study ordered he is already on ground diet consider lowering Haldol versus Cogentin generally try to avoid older man 03/26 lowered Haldol to 7.5 p.o. b.i.d. 03/27 start Abilify Maintena 400 IM, later on we stopped it since he was over- sedated. 03/28 monitor vital signs and we will order blood work for tomorrow morning. 03/29 keep same treatment. We are deferring Abilify Maintena since the patient is still sedated and looks slightly delirious. He has refused blood work 03/31 continue current tx. less combative but no improvement in mentation. grossly disorganized and non sensical. 04/01: court ordered meds- team reviewing and optimizing same. 04/02 continue tx. 04/03 keep same treatment, so far he had been more compliant with some of the medications in the last 3 days. 04/04 start Abilify Maintena 400 mg IM 04/05 keep Haldol as prescribed 04/06 keep same treatment 04/08/24 continue current plan, regime 04/09/24 continue plan, CAT pending 04/10 continue same treatment 04/11 keep same treatment 04/12 lowering Haldol to 5 mg p.o. b.i.d. since the patient is over-sedated. 04/13 keep same treatment 04/14 agitated today, jumping around, dive off bed, crawling on all 4's, naked; took meds; now sleeping -floridly psychotic and director underwriter sales thought best to let pt sleep 04/16 keep same treatment 04/17 Abilify Maintena 400 mg today and scheduled next for 30 days. 04/18 change Haldol to 5 mg p.o. t.i.d. with backup IM if he refuses p.o. Reason for continued inpatient stay Substantial Risk for: inability to function, rapid decompensation and med/psych decompensation Time Spent With Patient Time: Total time managing care of this patient today _20___ minutes.
--- NOTE | 2024-04-18 10:59 | PC.NURSE ---
Bret refused his vital signs to be taken. He also refused all of his medications. Security was called and pt was given an IM shot as per his Mitchell's order. Tolerated well and the medication had a good effect per pt's behaviors.
[2024-04-18] MEDS: LORazepam 1 MG TABLET 2 MG PO ×2 (11:30→18:00)
[2024-04-18] MEDS: Haloperidol Lactate Oral Conc 10 MG/5 ML ORAL.CONC 5 MG PO ×3 (11:39→21:18)
[2024-04-18] MEDS: carBAMazepine 200 MG TABLET PO (21:18)
[2024-04-18] MEDS: traZODone HCL 50 MG TABLET PO (21:18)
[2024-04-18] MEDS: Valproic Acid Liquid 250 MG/5 ML SOLUTION 750 MG PO (21:19)
[2024-04-19] MEDS: Haloperidol Lactate Oral Conc 10 MG/5 ML ORAL.CONC 5 MG PO ×4 (01:31→21:00)
[2024-04-19] MEDS: LORazepam 1 MG TABLET 2 MG PO (01:32)
[2024-04-19] MEDS: Valproic Acid Liquid 250 MG/5 ML SOLUTION 750 MG PO ×2 (09:03→21:00)
[2024-04-19 10:32] VITALS: RESP 16
--- NOTE | 2024-04-19 10:37 | HO.PSYCHPN ---
Subjective Subjective Date of Service: 04/19/24 Reason For Visit: Schizoaffective disorder Subjective Notes: Conditional Voluntary Interim History: The nursing staff reported the patient required IM backup in the morning yesterday since he refused to take p.o.. On interview the patient was not willing to engage in conversation, no changes in his mental status. Mental Status Exam Mental Status Exam Patient Appearance: Appropriate Patient Orientation: Person Level of Consciousness: Awake Patient Behavior: Guarded Mood Description: Withdrawn Affect Description: Blunted Patient Cognition Impaired: Yes Ability to Follow Directions: Good Speech Pattern: Clear Hallucinations: Auditory Delusions: Paranoid Ideation Thought Process: Distracted and Slowed Thinking Thought Content: positive for [place] and positive for Poverty of Content Judgement: Poor Diagnostics Vital Signs (24Hr): Vital Signs - 24 hr 04/19/24 10:32 Respiratory Rate 16 BMI result Body Mass Index 25.1 Labs 03/30/24 08:49 03/30/24 08:49 Imaging Radiology Impressions: ITS Impressions Chest X-Ray 03/20/24 08:33 IMPRESSION: Extremely limited exam. Only lateral views could be obtained. Suspect basilar airspace opacity, possibly pneumonia. Electronically signed by: Fortino Dumont MD 03/20/2024 10:10 AM EST RP Cervical Spine CT 03/21/24 11:18 IMPRESSION: 1. Allowing for suboptimal positioning, there is no CT evidence of acute cervical spine fracture or injury. 2. Degenerative changes with bulky ventral osteophytes spanning C4-C6, appearance in keeping with DISH. Electronically signed by: Fortino Dumont MD 03/21/2024 12:01 PM EST RP Head CT 03/21/24 11:18 IMPRESSION: 1. No acute intracranial abnormality. No acute fractures seen. 2. Stable chronic findings as discussed. Electronically signed by: Fortino Dumont MD 03/21/2024 11:54 AM EST RP Pelvis CT 03/21/24 11:18 IMPRESSION: 1. No acute bony abnormalities. No fractures. 2. Constipation with a large amount of stool in the rectum and sigmoid colon. 3. Mild thickening of the urinary bladder wall despite underdistention, nonspecific. Differential includes the detrusor hypertrophy, neurogenic bladder, or possibly cystitis. Electronically signed by: Fortino Dumont MD 03/21/2024 12:09 PM EST RP Head CT 03/28/24 09:37 IMPRESSION: No acute fracture, bony calvarium. No acute intracranial hemorrhage. Small vessel occlusive disease. Bifrontal bitemporal lobe atrophy. Electronically signed by: Juan Corrigan MD 03/28/2024 10:19 AM EST RP Medications Medications Current Medications Acetaminophen (Acetaminophen 325 Mg Tablet) 650 mg PO Q6H PRN PRN Reason: Headache/Pain Mild Scale (1-3) Last Admin: 01/17/24 23:53 Dose: 325 mg Al Hydroxide/Mg Hydroxide (Magnesium Hydrox/Alum Hydrox 30 Ml Oral.Susp) 30 ml PO Q6H PRN PRN Reason: Heartburn/Nausea Aripiprazole (Aripiprazole Er 400 Mg Suser.Syr) 400 mg IM Q30D [facility] Aspirin (Aspirin 81 Mg Tab.Chew) 81 mg PO DAILY [facility] Last Admin: 04/18/24 09:35 Dose: Not Given Carbamazepine (Carbamazepine 200 Mg Tablet) 200 mg PO BID [facility] Last Admin: 04/18/24 21:18 Dose: 200 mg Clonidine (Clonidine 0.2 Mg Patch.Tdwk) 0.2 mg TRANSDERMA Fr@0900 [facility]; Protocol Last Admin: 04/13/24 16:27 Dose: Not Given Ferrous Sulfate (Ferrous Sulfate 324 Mg Tablet.Dr) 324 mg PO BID [facility] Last Admin: 04/18/24 21:19 Dose: Not Given Haloperidol Lactate (Haloperidol Lactate Oral Conc 10 Mg/5 Ml Oral.Conc) 5 mg PO Q6H PRN PRN Reason: Psychosis or severe agitation Last Admin: 04/19/24 01:31 Dose: 5 mg Haloperidol Lactate (Haloperidol Lactate 5 Mg/Ml Vial) 5 mg IM TID PRN PRN Reason: Refusal of Court PO Haldol Haloperidol Lactate (Haloperidol Lactate Oral Conc 10 Mg/5 Ml Oral.Conc) 5 mg PO TID [facility] Last Admin: 04/19/24 09:03 Dose: 5 mg Lorazepam (Lorazepam 1 Mg Tablet) 2 mg PO Q6H PRN PRN Reason: agitation/severe anxiety Last Admin: 04/19/24 01:32 Dose: 2 mg Magnesium Hydroxide (Milk Of Magnesia 30 Ml Oral.Susp) 30 ml PO DAILY PRN PRN Reason: Constipation Nicotine Polacrilex (Nicotine Polacrilex 2 Mg Gum) 2 mg BUCCAL Q2H PRN PRN Reason: Nicotine Cravings Trazodone HCl (Trazodone Hcl 50 Mg Tablet) 50 mg PO BEDTIME MRX1 PRN PRN Reason: Insomnia Last Admin: 04/18/24 21:18 Dose: 50 mg Valproic Acid (Valproic Acid Liquid 250 Mg/5 Ml Solution) 750 mg PO BID [facility] Last Admin: 04/19/24 09:03 Dose: 750 mg Vitamin D (Cholecalciferol (Vitamin D3) 25 Mcg Tablet) 50 mcg PO DAILY [facility] Last Admin: 04/18/24 09:35 Dose: Not Given Allergies Allergies Allergy/AdvReac Type Severity Reaction Status Date / Time lithium Allergy Unknown Verified 01/13/24 18:08 Assessment & Plan Assessment & Plan (1) Schizoaffective disorder, bipolar type: Status: Acute Code(s): F25.0 - Schizoaffective disorder, bipolar type (2) Hypertension: Status: Acute Code(s): I10 - Essential (primary) hypertension (3) Diabetes mellitus: Status: Acute Code(s): E11.9 - Type 2 diabetes mellitus without complications Plan 03/23 keep same treatment 68 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 01/14 continue to follow - gave lambs warning today- and he says the sports activities foul judge will be a she- still refusing medications and quite psychotic takes alot of redirection to settle him poor adls- 01/15- Refuses meds, refuses hospitalist consult-second day File for Section [place] consideration on 01/17. Provide care as he will allow. 01/16: Depakote 250 mg bid Haldol, Lorazepam, Benadryl prn Section 7 to be filed 01/17 Message left for guardian. 01/17: Section Seven filed. . Court scheduled 01/26/24 Pt continues to refuse medicaitons. He is in need of full assist with ADL's and is incontinent. Pt transferred to [facility] this afternoon. 01/19/2024 Patient pending civil commitment loud agitated would not engage in any conversation with this journalists and other writers non informational healing agitated verbally aggressive. Every attempt being made to get a copy of the patient's Servin order unclear why this has been so problematic. Encourage food and fluids 01/19 continue same treatment 01/21/24 Patient labile agitated intrusive close labs ordered in order to per to protect the community patient wandering into patient's rooms intrusive impulsive laying on another person's bed. Often hostile agitated posturing at times we are still pending copy of reported Servin order encourage p.o. compliance 01/22/2024 Patient did require physical hold escort him out of a room that he jumped in other patient's room and on their bed while there were in it. There was no physical harm and the patient did leave the room his markedly impulsive with poor judgment remains on close observation has intermittently taken Haldol liquid pending civil commitment treatment plan there is a question of Servin order 01/22 The patient had been more agitated. We review his Servin order and we are increasing the Abilify up to 15 mg p.o. daily and adding Haldol p.r.n. since it is in his role years order. We needed to give him some p.r.n. at 14:00. 01/23 The patient is grossly psychotic disrobing and sexually disinhibited we are starting Haldol 2 mg p.o. t.i.d. to target psychosis as per court order treatment over objection order. 01/24 The patient remains very agitated and angry disruptive so we are increasing the Haldol from 2 mg to 5 mg p.o. t.i.d. with a backup IM if the patient refused as per court order. 01/25 we have increased the Haldol but still he is very psychotic and restless. Today he refused his blood work. He needed to be physically held twice. 01/26 the patient remains agitated at times but his last IM backup was yesterday. We are going to increase Abilify up to 20 mg daily to target mood lability and psychosis. 01/29/2024: Increase frequency of prn doses from tid to prn q 6mrs. Poor insight and unable to care for self 02/08 pt has not take any of mood stabilizer. continues to have poor sleep, intrusive and combative requiring IM medications, increase haldol 10mg po TID, back up IM. Will add ativan 1mg po TID, also back up IM. Labs show elevated CK 2300, BUN 20, Cr 1.80, unclear baseline Cr as he does have CKD. Discussed with hospitalist Dr. Gama, to give IV fluids and monitor labs tomorrow. LFTs also elevated suspect this is secondary to elevation in CK and should trend down as CK goes down. 02/09 still agitated, creatinine and CPK slightly high as yesterday, he removed his IV line there is no big difference with IV hydration. We are changing his community role years to have more options since it is not working Abilify and Haldol 02/10 3 chemical restraints yesterday. appears more combative, and somewhat more confused. Will decrease amount of benzo and antihistamine given to him as it seems to be backfiring. did discuss with ICU attending, Dr. Whiteside possibility of transferring there but they would like us to try IV depakote and exhaust all resources prior to considering transfer. Pt did take depakote springkle 1000mg with apple sauce with much encourage. 02/11 continue tx. 02/12 continue same treatment 01/14 continue with Abilify and other court order medications, we are Namenda and the court order. 02/14 Team report improvement today with pt having greater comfort and less agitation. [id number] the staff reported that the patient had been less violent in the last 24 hours 02/16 continue tx. will check depakote and ammonia on 02/17 in AM. 02/17 continue regime and plan of care 02/26/2024: Continue current regimen as per court order 03/03 continue tx. lactulose for now as we don't have new ammonia level, but will try to chack labs. 03/16- continue medications, held clonidine patch for today due to low BP. repeat labs. 03/17-continue plan of care 03/18- continue tx 03/19 continue same treatment 03/20 waiting for CBC, basic metabolic panel and ammonia level. Today he nearly choked with a grape. We are going to change his diet to chopped 03/21 patient had a fall and he was assessed. No injuries as per CT scan of head and pelvis. Again he refused again his blood work vital signs within normal limits. 03/22 keep same treatment 03/23 keep same treatment 03 24 24 Continue plan of care Depakote Tegretol Haldol carbamazepine 03/25/2024 Repeat swallowing study ordered he is already on ground diet consider lowering Haldol versus Cogentin generally try to avoid older man 03/26 lowered Haldol to 7.5 p.o. b.i.d. 03/27 start Abilify Maintena 400 IM, later on we stopped it since he was over-sedated. 03/28 monitor vital signs and we will order blood work for tomorrow morning. 03/29 keep same treatment. We are deferring Abilify Maintena since the patient is still sedated and looks slightly delirious. He has refused blood work 03/31 continue current tx. less combative but no improvement in mentation. grossly disorganized and non sensical. 04/01: court ordered meds- team reviewing and optimizing same. 04/02 continue tx. 04/03 keep same treatment, so far he had been more compliant with some of the medications in the last 3 days. 04/04 start Abilify Maintena 400 mg IM 04/05 keep Haldol as prescribed 04/06 keep same treatment 04/08/24 continue current plan, regime 04/09/24 continue plan, CAT pending 04/10 continue same treatment 04/11 keep same treatment 04/12 lowering Haldol to 5 mg p.o. b.i.d. since the patient is over-sedated. 04/13 keep same treatment 04/14 agitated today, jumping around, dive off bed, crawling on all 4's, naked; took meds; now sleeping -floridly psychotic and journalists and other writers thought best to let pt sleep 04/16 keep same treatment 04/17 Abilify Maintena 400 mg today and scheduled next for 30 days. 04/18 change Haldol to 5 mg p.o. t.i.d. with backup IM if he refuses p.o. 04/19 keep same treatment Reason for continued inpatient stay Substantial Risk for: inability to function, rapid decompensation and med/psych decompensation Time Spent With Patient Time: Total time managing care of this patient today __20__ minutes.
[2024-04-19 20:00] VITALS: BP 113/55; PULSE 97; RESP 16; TEMP 36.4; O2SAT 100
[2024-04-19] MEDS: carBAMazepine 200 MG TABLET PO (21:00)
[2024-04-20] MEDS: Haloperidol Lactate Oral Conc 10 MG/5 ML ORAL.CONC 5 MG PO ×4 (00:36→19:53)
[2024-04-20] MEDS: LORazepam 1 MG TABLET 2 MG PO ×2 (00:36→14:03)
[2024-04-20] MEDS: traZODone HCL 50 MG TABLET PO ×3 (02:42→23:34)
[2024-04-20] MEDS: Valproic Acid Liquid 250 MG/5 ML SOLUTION 750 MG PO ×2 (07:42→19:54)
[2024-04-20] MEDS: Cholecalciferol (Vitamin D3) 25 MCG TABLET 50 MCG PO (07:43)
[2024-04-20] MEDS: Ferrous Sulfate 324 MG TABLET.DR PO (07:43)
[2024-04-20] MEDS: carBAMazepine 200 MG TABLET PO ×2 (07:43→19:53)
[2024-04-20] MEDS: Aspirin 81 MG TAB.CHEW PO (07:43)
--- NOTE | 2024-04-20 13:52 | P.PNPSI_ITS ---
Subjective Subjective Date of Service: 04/20/24 Reason For Visit: Schizoaffective disorder Subjective Notes: Section 7 and Section 8 Interim History: The nursing staff reported the patient needed p.r.n. medications overnight, he was been sexually inappropriate. He slept very bad last night. On interview the patient was despondent. Currently on Abilify Maintena. Mental Status Exam Mental Status Exam Patient Appearance: Appropriate Patient Orientation: Person and Situation Level of Consciousness: Awake and Appropriate Patient Behavior: Guarded Mood Description: Withdrawn Affect Description: Blunted Patient Cognition Impaired: Yes Ability to Follow Directions: Good Speech Pattern: Impoverished Hallucinations: None Delusions: Paranoid Ideation and Ideas of Reference Thought Process: Distracted and Slowed Thinking Thought Content: positive for [place] and positive for Poverty of Content Judgement: Poor Diagnostics Vital Signs (24Hr): Vital Signs - 24 hr 04/19/24 20:00 Temperature 97.5 F Pulse Rate 97 Respiratory Rate 16 Blood Pressure 113/55 L Pulse Oximetry 100 Oxygen Delivery Method Room Air BMI result Body Mass Index 25.1 Labs 03/30/24 08:49 03/30/24 08:49 Imaging Radiology Impressions: ITS Impressions Chest X-Ray 03/20/24 08:33 IMPRESSION: Extremely limited exam. Only lateral views could be obtained. Suspect basilar airspace opacity, possibly pneumonia. Electronically signed by: Fortino Dumont MD 03/20/2024 10:10 AM EST RP Cervical Spine CT 03/21/24 11:18 IMPRESSION: 1. Allowing for suboptimal positioning, there is no CT evidence of acute cervical spine fracture or injury. 2. Degenerative changes with bulky ventral osteophytes spanning C4-C6, appearance in keeping with DISH. Electronically signed by: Fortino Dumont MD 03/21/2024 12:01 PM EST RP Head CT 03/21/24 11:18 IMPRESSION: 1. No acute intracranial abnormality. No acute fractures seen. 2. Stable chronic findings as discussed. Electronically signed by: Fortino Dumont MD 03/21/2024 11:54 AM EST RP Pelvis CT 03/21/24 11:18 IMPRESSION: 1. No acute bony abnormalities. No fractures. 2. Constipation with a large amount of stool in the rectum and sigmoid colon. 3. Mild thickening of the urinary bladder wall despite underdistention, nonspecific. Differential includes the detrusor hypertrophy, neurogenic bladder, or possibly cystitis. Electronically signed by: Fortino Dumont MD 03/21/2024 12:09 PM EST RP Head CT 03/28/24 09:37 IMPRESSION: No acute fracture, bony calvarium. No acute intracranial hemorrhage. Small vessel occlusive disease. Bifrontal bitemporal lobe atrophy. Electronically signed by: Juan Corrigan MD 03/28/2024 10:19 AM EST RP Medications Medications Current Medications Acetaminophen (Acetaminophen 325 Mg Tablet) 650 mg PO Q6H PRN PRN Reason: Headache/Pain Mild Scale (1-3) Last Admin: 01/17/24 23:53 Dose: 325 mg Al Hydroxide/Mg Hydroxide (Magnesium Hydrox/Alum Hydrox 30 Ml Oral.Susp) 30 ml PO Q6H PRN PRN Reason: Heartburn/Nausea Aripiprazole (Aripiprazole Er 400 Mg Suser.Syr) 400 mg IM Q30D [facility] Aspirin (Aspirin 81 Mg Tab.Chew) 81 mg PO DAILY [facility] Last Admin: 04/20/24 07:43 Dose: 81 mg Carbamazepine (Carbamazepine 200 Mg Tablet) 200 mg PO BID [facility] Last Admin: 04/20/24 07:43 Dose: 200 mg Clonidine (Clonidine 0.2 Mg Patch.Tdwk) 0.2 mg TRANSDERMA Fr@0900 [facility]; Protocol Last Admin: 04/20/24 10:32 Dose: Not Given Ferrous Sulfate (Ferrous Sulfate 324 Mg Tablet.) 324 mg PO BID [facility] Last Admin: 04/20/24 07:43 Dose: 324 mg Haloperidol Lactate (Haloperidol Lactate Oral Conc 10 Mg/5 Ml Oral.Conc) 5 mg PO Q6H PRN PRN Reason: Psychosis or severe agitation Last Admin: 04/20/24 00:36 Dose: 5 mg Haloperidol Lactate (Haloperidol Lactate 5 Mg/Ml Vial) 5 mg IM TID PRN PRN Reason: Refusal of Court PO Haldol Haloperidol Lactate (Haloperidol Lactate Oral Conc 10 Mg/5 Ml Oral.Conc) 5 mg PO TID [facility] Last Admin: 04/20/24 07:42 Dose: 5 mg Lorazepam (Lorazepam 1 Mg Tablet) 2 mg PO Q6H PRN PRN Reason: agitation/severe anxiety Last Admin: 04/20/24 00:36 Dose: 2 mg Magnesium Hydroxide (Milk Of Magnesia 30 Ml Oral.Susp) 30 ml PO DAILY PRN PRN Reason: Constipation Nicotine Polacrilex (Nicotine Polacrilex 2 Mg Gum) 2 mg BUCCAL Q2H PRN PRN Reason: Nicotine Cravings Trazodone HCl (Trazodone Hcl 50 Mg Tablet) 50 mg PO BEDTIME MRX1 PRN PRN Reason: Insomnia Last Admin: 04/20/24 02:42 Dose: 50 mg Valproic Acid (Valproic Acid Liquid 250 Mg/5 Ml Solution) 750 mg PO BID [facility] Last Admin: 04/20/24 07:42 Dose: 750 mg Vitamin D (Cholecalciferol (Vitamin D3) 25 Mcg Tablet) 50 mcg PO DAILY [facility] Last Admin: 04/20/24 07:43 Dose: 50 mcg Allergies Allergies Allergy/AdvReac Type Severity Reaction Status Date / Time lithium Allergy Unknown Verified 01/13/24 18:08 Assessment & Plan Assessment & Plan (1) Schizoaffective disorder, bipolar type: Status: Acute Code(s): F25.0 - Schizoaffective disorder, bipolar type (2) Hypertension: Status: Acute Code(s): I10 - Essential (primary) hypertension (3) Diabetes mellitus: Status: Acute Code(s): E11.9 - Type 2 diabetes mellitus without complications Plan 03/23 keep same treatment 68 yo from a nursing home with chronic psychotic disorder, refusing medication , elevated bp and disorganized and agitated behavior requiring psychiatric hospitalization and treatment not competent to sign cv. 01/14 continue to follow - gave lambs warning today- and he says the icebox worker will be a she- still refusing medications and quite psychotic takes alot of redirection to settle him poor adls- 01/15- Refuses meds, refuses hospitalist consult-second day File for Section Seven consideration on 01/17. Provide care as he will allow. 01/16: Depakote 250 mg bid Haldol, Lorazepam, Benadryl prn Section 7 to be filed 01/17 Message left for guardian. 01/17: Section Seven filed. . Court scheduled 01/26/24 Pt continues to refuse medicaitons. He is in need of full assist with ADL's and is incontinent. Pt transferred to [facility] this afternoon. 01/19/2024 Patient pending civil commitment loud agitated would not engage in any conversation with this technical document writer non informational healing agitated verbally aggressive. Every attempt being made to get a copy of the patient's Servin order unclear why this has been so problematic. Encourage food and fluids 01/19 continue same treatment 01/21/24 Patient labile agitated intrusive close labs ordered in order to per to protect the community patient wandering into patient's rooms intrusive impulsive laying on another person's bed. Often hostile agitated posturing at times we are still pending copy of reported Servin order encourage p.o. compliance 01/22/2024 Patient did require physical hold escort him out of a room that he jumped in other patient's room and on their bed while there were in it. There was no physical harm and the patient did leave the room his markedly impulsive with poor judgment remains on close observation has intermittently taken Haldol liquid pending civil commitment treatment plan there is a question of Servin order 01/22 The patient had been more agitated. We review his Servin order and we are increasing the Abilify up to 15 mg p.o. daily and adding Haldol p.r.n. since it is in his role years order. We needed to give him some p.r.n. at 14:00. 01/23 The patient is grossly psychotic disrobing and sexually disinhibited we are starting Haldol 2 mg p.o. t.i.d. to target psychosis as per court order treatment over objection order. 01/24 The patient remains very agitated and angry disruptive so we are increasing the Haldol from 2 mg to 5 mg p.o. t.i.d. with a backup IM if the patient refused as per court order. 01/25 we have increased the Haldol but still he is very psychotic and restless. Today he refused his blood work. He needed to be physically held twice. 01/26 the patient remains agitated at times but his last IM backup was yesterday. We are going to increase Abilify up to 20 mg daily to target mood lability and psychosis. 01/29/2024: Increase frequency of prn doses from tid to prn q 6mrs. Poor insight and unable to care for self 02/08 pt has not take any of mood stabilizer. continues to have poor sleep, intrusive and combative requiring IM medications, increase haldol 10mg po TID, back up IM. Will add ativan 1mg po TID, also back up IM. Labs show elevated CK 2300, BUN 20, Cr 1.80, unclear baseline Cr as he does have CKD. Discussed with hospitalist Dr. Gama, to give IV fluids and monitor labs tomorrow. LFTs also elevated suspect this is secondary to elevation in CK and should trend down as CK goes down. 02/09 still agitated, creatinine and CPK slightly high as yesterday, he removed his IV line there is no big difference with IV hydration. We are changing his community role years to have more options since it is not working Abilify and Haldol 02/10 3 chemical restraints yesterday. appears more combative, and somewhat more confused. Will decrease amount of benzo and antihistamine given to him as it seems to be backfiring. did discuss with ICU attending, Dr. Whiteside possibility of transferring there but they would like us to try IV depakote and exhaust all resources prior to considering transfer. Pt did take depakote springkle 1000mg with apple sauce with much encourage. 02/11 continue tx. 02/12 continue same treatment 01/14 continue with Abilify and other court order medications, we are Namenda and the court order. 02/14 Team report improvement today with pt having greater comfort and less agitation. [id number] the staff reported that the patient had been less violent in the last 24 hours 02/16 continue tx. will check depakote and ammonia on 02/17 in AM. 02/17 continue regime and plan of care 02/26/2024: Continue current regimen as per court order 03/03 continue tx. lactulose for now as we don't have new ammonia level, but will try to chack labs. 03/16- continue medications, held clonidine patch for today due to low BP. repeat labs. 03/17-continue plan of care 03/18- continue tx 03/19 continue same treatment 03/20 waiting for CBC, basic metabolic panel and ammonia level. Today he nearly choked with a grape. We are going to change his diet to chopped 03/21 patient had a fall and he was assessed. No injuries as per CT scan of head and pelvis. Again he refused again his blood work vital signs within normal limits. 03/22 keep same treatment 03/23 keep same treatment 03 24 24 Continue plan of care Depakote Tegretol Haldol carbamazepine 03/25/2024 Repeat swallowing study ordered he is already on ground diet consider lowering Haldol versus Cogentin generally try to avoid older man 03/26 lowered Haldol to 7.5 p.o. b.i.d. 03/27 start Abilify Maintena 400 IM, later on we stopped it since he was over- sedated. 03/28 monitor vital signs and we will order blood work for tomorrow morning. 03/29 keep same treatment. We are deferring Abilify Maintena since the patient is still sedated and looks slightly delirious. He has refused blood work 03/31 continue current tx. less combative but no improvement in mentation. grossly disorganized and non sensical. 04/01: court ordered meds- team reviewing and optimizing same. 04/02 continue tx. 04/03 keep same treatment, so far he had been more compliant with some of the medications in the last 3 days. 04/04 start Abilify Maintena 400 mg IM 04/05 keep Haldol as prescribed 04/06 keep same treatment 04/08/24 continue current plan, regime 04/09/24 continue plan, CAT pending 04/10 continue same treatment 04/11 keep same treatment 04/12 lowering Haldol to 5 mg p.o. b.i.d. since the patient is over-sedated. 04/13 keep same treatment 04/14 agitated today, jumping around, dive off bed, crawling on all 4's, naked; took meds; now sleeping -floridly psychotic and technical document writer thought best to let pt sleep 04/16 keep same treatment 04/17 Abilify Maintena 400 mg today and scheduled next for 30 days. 04/18 change Haldol to 5 mg p.o. t.i.d. with backup IM if he refuses p.o. 04/19 keep same treatment. 04/20 keep same treatment Reason for continued inpatient stay Substantial Risk for: inability to function, rapid decompensation and med/psych decompensation Time Spent With Patient Time: Total time managing care of this patient today __20__ minutes.
[2024-04-20 20:00] VITALS: RESP 16
[2024-04-21] MEDS: LORazepam 1 MG TABLET 2 MG PO (03:29)
[2024-04-21] MEDS: carBAMazepine 200 MG TABLET PO ×2 (07:44→22:07)
[2024-04-21] MEDS: Haloperidol Lactate Oral Conc 10 MG/5 ML ORAL.CONC 5 MG PO ×3 (07:44→22:06)
[2024-04-21] MEDS: Valproic Acid Liquid 250 MG/5 ML SOLUTION 750 MG PO ×2 (07:45→22:07)
[2024-04-21] MEDS: Aspirin 81 MG TAB.CHEW PO (07:46)
[2024-04-21 08:00] VITALS: RESP 18
--- NOTE | 2024-04-21 16:27 | P.PNPSI_ITS ---
Subjective Subjective Date of Service: 04/21/24 Reason For Visit: Schizoaffective disorder Interim History: seen in the visiting room with 1:1 staff present. after MD introduced himself, pt responded, i don't need a [place] psychiatrist. per staff, restless, taking meds. on 1:1 for behavioral and falls risk, Mental Status Exam Mental Status Exam Patient Appearance: Appropriate Patient Orientation: Person and Situation Level of Consciousness: Awake and Appropriate Patient Behavior: Guarded Mood Description: Withdrawn Affect Description: Blunted Patient Cognition Impaired: Yes Speech Pattern: Spontaneous Speech Hallucinations: None Delusions: Paranoid Ideation and Ideas of Reference Thought Process: Distracted Thought Content: positive for [place] and positive for Poverty of Content Judgement: Poor Diagnostics Vital Signs (24Hr): Vital Signs - 24 hr 04/20/24 20:00 04/21/24 08:00 Respiratory Rate 16 18 BMI result Body Mass Index 25.1 Labs 03/30/24 08:49 03/30/24 08:49 Imaging Radiology Impressions: ITS Impressions Chest X-Ray 03/20/24 08:33 IMPRESSION: Extremely limited exam. Only lateral views could be obtained. Suspect basilar airspace opacity, possibly pneumonia. Electronically signed by: Fortino Dumont MD 03/20/2024 10:10 AM EST RP Cervical Spine CT 03/21/24 11:18 IMPRESSION: 1. Allowing for suboptimal positioning, there is no CT evidence of acute cervical spine fracture or injury. 2. Degenerative changes with bulky ventral osteophytes spanning C4-C6, appearance in keeping with DISH. Electronically signed by: Fortino Dumont MD 03/21/2024 12:01 PM EST RP Head CT 03/21/24 11:18 IMPRESSION: 1. No acute intracranial abnormality. No acute fractures seen. 2. Stable chronic findings as discussed. Electronically signed by: Fortino Dumont MD 03/21/2024 11:54 AM EST RP Pelvis CT 03/21/24 11:18 IMPRESSION: 1. No acute bony abnormalities. No fractures. 2. Constipation with a large amount of stool in the rectum and sigmoid colon. 3. Mild thickening of the urinary bladder wall despite underdistention, nonspecific. Differential includes the detrusor hypertrophy, neurogenic bladder, or possibly cystitis. Electronically signed by: Fortino Dumont MD 03/21/2024 12:09 PM EST RP Head CT 03/28/24 09:37 IMPRESSION: No acute fracture, bony calvarium. No acute intracranial hemorrhage. Small vessel occlusive disease. Bifrontal bitemporal lobe atrophy. Electronically signed by: Juan Corrigan MD 03/28/2024 10:19 AM EST RP Medications Medications Current Medications Acetaminophen (Acetaminophen 325 Mg Tablet) 650 mg PO Q6H PRN PRN Reason: Headache/Pain Mild Scale (1-3) Last Admin: 01/17/24 23:53 Dose: 325 mg Al Hydroxide/Mg Hydroxide (Magnesium Hydrox/Alum Hydrox 30 Ml Oral.Susp) 30 ml PO Q6H PRN PRN Reason: Heartburn/Nausea Aripiprazole (Aripiprazole Er 400 Mg Suser.Syr) 400 mg IM Q30D [facility] Aspirin (Aspirin 81 Mg Tab.Chew) 81 mg PO DAILY [facility] Last Admin: 04/21/24 07:46 Dose: 81 mg Carbamazepine (Carbamazepine 200 Mg Tablet) 200 mg PO BID [facility] Last Admin: 04/21/24 07:44 Dose: 200 mg Clonidine (Clonidine 0.2 Mg Patch.Tdwk) 0.2 mg TRANSDERMA Fr@0900 [facility]; Protocol Last Admin: 04/20/24 10:32 Dose: Not Given Ferrous Sulfate (Ferrous Sulfate 324 Mg Tablet.Dr) 324 mg PO BID [facility] Last Admin: 04/21/24 10:10 Dose: Not Given Haloperidol Lactate (Haloperidol Lactate Oral Conc 10 Mg/5 Ml Oral.Conc) 5 mg PO Q6H PRN PRN Reason: Psychosis or severe agitation Last Admin: 04/20/24 00:36 Dose: 5 mg Haloperidol Lactate (Haloperidol Lactate 5 Mg/Ml Vial) 5 mg IM TID PRN PRN Reason: Refusal of Court PO Haldol Haloperidol Lactate (Haloperidol Lactate Oral Conc 10 Mg/5 Ml Oral.Conc) 5 mg PO TID [facility] Last Admin: 04/21/24 14:30 Dose: 5 mg Lorazepam (Lorazepam 1 Mg Tablet) 2 mg PO Q6H PRN PRN Reason: agitation/severe anxiety Last Admin: 04/21/24 03:29 Dose: 2 mg Magnesium Hydroxide (Milk Of Magnesia 30 Ml Oral.Susp) 30 ml PO DAILY PRN PRN Reason: Constipation Nicotine Polacrilex (Nicotine Polacrilex 2 Mg Gum) 2 mg BUCCAL Q2H PRN PRN Reason: Nicotine Cravings Trazodone HCl (Trazodone Hcl 50 Mg Tablet) 50 mg PO BEDTIME MRX1 PRN PRN Reason: Insomnia Last Admin: 04/20/24 23:34 Dose: 50 mg Valproic Acid (Valproic Acid Liquid 250 Mg/5 Ml Solution) 750 mg PO BID [facility] Last Admin: 04/21/24 07:45 Dose: 750 mg Vitamin D (Cholecalciferol (Vitamin D3) 25 Mcg Tablet) 50 mcg PO DAILY [facility] Last Admin: 04/21/24 10:10 Dose: Not Given Allergies Allergies Allergy/AdvReac Type Severity Reaction Status Date / Time lithium Allergy Unknown Verified 01/13/24 18:08 Assessment & Plan Assessment & Plan (1) Schizoaffective disorder, bipolar type: Status: Acute Code(s): F25.0 - Schizoaffective disorder, bipolar type (2) Hypertension: Status: Acute Code(s): I10 - Essential (primary) hypertension (3) Diabetes mellitus: Status: Acute Code(s): E11.9 - Type 2 diabetes mellitus without complications Plan 03/23 keep same treatment 68 yo from a residential with chronic psychotic disorder, refusing medication , elevated bp and disorganized and agitated behavior requiring psychiatric hospitalization and treatment not competent to sign cv. 01/14 continue to follow - gave lambs warning today- and he says the client reporting associate will be a she- still refusing medications and quite psychotic takes alot of redirection to settle him poor adls- 01/15- Refuses meds, refuses hospitalist consult-second day File for Section [place] consideration on 01/17. Provide care as he will allow. 01/16: Depakote 250 mg bid Haldol, Lorazepam, Benadryl prn Section 7 to be filed 01/17 Message left for guardian. 01/17: Section [address] filed. . Court scheduled 01/26/24 Pt continues to refuse medicaitons. He is in need of full assist with ADL's and is incontinent. Pt transferred to [facility] this afternoon. 01/19/2024 Patient pending civil commitment loud agitated would not engage in any conversation with this headline writer non informational healing agitated verbally aggressive. Every attempt being made to get a copy of the patient's Servin order unclear why this has been so problematic. Encourage food and fluids 01/19 continue same treatment 01/21/24 Patient labile agitated intrusive close labs ordered in order to per to protect the community patient wandering into patient's rooms intrusive impulsive laying on another person's bed. Often hostile agitated posturing at times we are still pending copy of reported Servin order encourage p.o. compliance 01/22/2024 Patient did require physical hold escort him out of a room that he jumped in other patient's room and on their bed while there were in it. There was no physical harm and the patient did leave the room his markedly impulsive with poor judgment remains on close observation has intermittently taken Haldol liquid pending civil commitment treatment plan there is a question of Servin order 01/22 The patient had been more agitated. We review his Servin order and we are increasing the Abilify up to 15 mg p.o. daily and adding Haldol p.r.n. since it is in his role years order. We needed to give him some p.r.n. at 14:00. 01/23 The patient is grossly psychotic disrobing and sexually disinhibited we are starting Haldol 2 mg p.o. t.i.d. to target psychosis as per court order treatment over objection order. 01/24 The patient remains very agitated and angry disruptive so we are increasing the Haldol from 2 mg to 5 mg p.o. t.i.d. with a backup IM if the patient refused as per court order. 01/25 we have increased the Haldol but still he is very psychotic and restless. Today he refused his blood work. He needed to be physically held twice. 01/26 the patient remains agitated at times but his last IM backup was yesterday. We are going to increase Abilify up to 20 mg daily to target mood lability and psychosis. 01/29/2024: Increase frequency of prn doses from tid to prn q 6mrs. Poor insight and unable to care for self 02/08 pt has not take any of mood stabilizer. continues to have poor sleep, intrusive and combative requiring IM medications, increase haldol 10mg po TID, back up IM. Will add ativan 1mg po TID, also back up IM. Labs show elevated CK 2300, BUN 20, Cr 1.80, unclear baseline Cr as he does have CKD. Discussed with hospitalist Dr. Gama, to give IV fluids and monitor labs tomorrow. LFTs also elevated suspect this is secondary to elevation in CK and should trend down as CK goes down. 02/09 still agitated, creatinine and CPK slightly high as yesterday, he removed his IV line there is no big difference with IV hydration. We are changing his community role years to have more options since it is not working Abilify and Haldol 02/10 3 chemical restraints yesterday. appears more combative, and somewhat more confused. Will decrease amount of benzo and antihistamine given to him as it seems to be backfiring. did discuss with ICU attending, Dr. Whiteside possibility of transferring there but they would like us to try IV depakote and exhaust all resources prior to considering transfer. Pt did take depakote springkle 1000mg with apple sauce with much encourage. 02/11 continue tx. 02/12 continue same treatment 01/14 continue with Abilify and other court order medications, we are Namenda and the court order. 02/14 Team report improvement today with pt having greater comfort and less agitation. [id number] the staff reported that the patient had been less violent in the last 24 hours 02/16 continue tx. will check depakote and ammonia on 02/17 in AM. 02/17 continue regime and plan of care 02/26/2024: Continue current regimen as per court order 03/03 continue tx. lactulose for now as we don't have new ammonia level, but will try to chack labs. 03/16- continue medications, held clonidine patch for today due to low BP. repeat labs. 03/17-continue plan of care 03/18- continue tx 03/19 continue same treatment 03/20 waiting for CBC, basic metabolic panel and ammonia level. Today he nearly choked with a grape. We are going to change his diet to chopped 03/21 patient had a fall and he was assessed. No injuries as per CT scan of head and pelvis. Again he refused again his blood work vital signs within normal limits. 03/22 keep same treatment 03/23 keep same treatment 2 1 25 Continue plan of care Depakote Tegretol Haldol carbamazepine 03/25/2024 Repeat swallowing study ordered he is already on ground diet consider lowering Haldol versus Cogentin generally try to avoid older man 03/26 lowered Haldol to 7.5 p.o. b.i.d. 03/27 start Abilify Maintena 400 IM, later on we stopped it since he was over- sedated. 03/28 monitor vital signs and we will order blood work for tomorrow morning. 03/29 keep same treatment. We are deferring Abilify Maintena since the patient is still sedated and looks slightly delirious. He has refused blood work 03/31 continue current tx. less combative but no improvement in mentation. grossly disorganized and non sensical. 04/01: court ordered meds- team reviewing and optimizing same. 04/02 continue tx. 04/03 keep same treatment, so far he had been more compliant with some of the medications in the last 3 days. 04/04 start Abilify Maintena 400 mg IM 04/05 keep Haldol as prescribed 04/06 keep same treatment 04/08/24 continue current plan, regime 04/09/24 continue plan, CAT pending 04/10 continue same treatment 04/11 keep same treatment 04/12 lowering Haldol to 5 mg p.o. b.i.d. since the patient is over-sedated. 04/13 keep same treatment 04/14 agitated today, jumping around, dive off bed, crawling on all 4's, naked; took meds; now sleeping -floridly psychotic and headline writer thought best to let pt sleep 04/16 keep same treatment 04/17 Abilify Maintena 400 mg today and scheduled next for 30 days. 04/18 change Haldol to 5 mg p.o. t.i.d. with backup IM if he refuses p.o. 04/19 keep same treatment. 04/20 keep same treatment 04/21: verbally aggressive, restless. continue 1:1 and current Tx plan. Reason for continued inpatient stay Substantial Risk for: inability to function Time Spent With Patient Time: Total time managing care of this patient today ____ minutes.
[2024-04-21 20:00] VITALS: BP 143/67; PULSE 77; RESP 16; TEMP 37; O2SAT 100
[2024-04-21] MEDS: traZODone HCL 50 MG TABLET PO (22:10)
[2024-04-22] MEDS: traZODone HCL 50 MG TABLET PO ×3 (01:34→21:25)
[2024-04-22] MEDS: LORazepam 1 MG TABLET 2 MG PO ×2 (01:34→20:15)
[2024-04-22] MEDS: Haloperidol Lactate Oral Conc 10 MG/5 ML ORAL.CONC 5 MG PO ×5 (04:55→20:15)
[2024-04-22 08:00] VITALS: BP 132/63; PULSE 78; RESP 18; TEMP 36.1; O2SAT 100
[2024-04-22] MEDS: Aspirin 81 MG TAB.CHEW PO (08:09)
[2024-04-22] MEDS: Valproic Acid Liquid 250 MG/5 ML SOLUTION 750 MG PO ×2 (08:09→20:15)
[2024-04-22] MEDS: Cholecalciferol (Vitamin D3) 25 MCG TABLET 50 MCG PO (08:09)
[2024-04-22] MEDS: carBAMazepine 200 MG TABLET PO ×2 (08:14→20:15)
--- NOTE | 2024-04-22 12:25 | P.PNPSI_ITS ---
Subjective Subjective Date of Service: 04/22/24 Reason For Visit: Schizoaffective disorder Interim History: resting in bed with sheet over face. not easily rousable to voice. due to h/o agitated behaviors and poor sleep overnight, MD did not make further attempts to engage patient. per staff, irritable later eves. got PRNs which were somewhat helpful. restless. VS WNL. slept 4 hours. Mental Status Exam Mental Status Exam Patient Behavior: Asleep Patient Cognition Impaired: Yes Diagnostics Vital Signs (24Hr): Vital Signs - 24 hr 04/21/24 20:00 04/22/24 08:00 Temperature 98.6 F 96.9 F Pulse Rate 77 78 Respiratory Rate 16 18 Blood Pressure 143/67 H 132/63 Pulse Oximetry 100 100 Oxygen Delivery Method Room Air Room Air BMI result Body Mass Index 25.1 Labs 03/30/24 08:49 03/30/24 08:49 Imaging Radiology Impressions: ITS Impressions Chest X-Ray 03/20/24 08:33 IMPRESSION: Extremely limited exam. Only lateral views could be obtained. Suspect basilar airspace opacity, possibly pneumonia. Electronically signed by: Fortino Dumont MD 03/20/2024 10:10 AM EST RP Cervical Spine CT 03/21/24 11:18 IMPRESSION: 1. Allowing for suboptimal positioning, there is no CT evidence of acute cervical spine fracture or injury. 2. Degenerative changes with bulky ventral osteophytes spanning C4-C6, appearance in keeping with DISH. Electronically signed by: Fortino Dumont MD 03/21/2024 12:01 PM EST RP Head CT 03/21/24 11:18 IMPRESSION: 1. No acute intracranial abnormality. No acute fractures seen. 2. Stable chronic findings as discussed. Electronically signed by: Fortino Dumont MD 03/21/2024 11:54 AM EST RP Pelvis CT 03/21/24 11:18 IMPRESSION: 1. No acute bony abnormalities. No fractures. 2. Constipation with a large amount of stool in the rectum and sigmoid colon. 3. Mild thickening of the urinary bladder wall despite underdistention, nonspecific. Differential includes the detrusor hypertrophy, neurogenic bladder, or possibly cystitis. Electronically signed by: Fortino Dumont MD 03/21/2024 12:09 PM EST RP Head CT 03/28/24 09:37 IMPRESSION: No acute fracture, bony calvarium. No acute intracranial hemorrhage. Small vessel occlusive disease. Bifrontal bitemporal lobe atrophy. Electronically signed by: Juan Corrigan MD 03/28/2024 10:19 AM EST RP Medications Medications Current Medications Acetaminophen (Acetaminophen 325 Mg Tablet) 650 mg PO Q6H PRN PRN Reason: Headache/Pain Mild Scale (1-3) Last Admin: 01/17/24 23:53 Dose: 325 mg Al Hydroxide/Mg Hydroxide (Magnesium Hydrox/Alum Hydrox 30 Ml Oral.Susp) 30 ml PO Q6H PRN PRN Reason: Heartburn/Nausea Aripiprazole (Aripiprazole Er 400 Mg Suser.Syr) 400 mg IM Q30D ON LICENSE OF [facility] Aspirin (Aspirin 81 Mg Tab.Chew) 81 mg PO DAILY ON LICENSE OF [facility] Last Admin: 04/22/24 08:09 Dose: 81 mg Carbamazepine (Carbamazepine 200 Mg Tablet) 200 mg PO BID ON LICENSE OF [facility] Last Admin: 04/22/24 08:14 Dose: 200 mg Clonidine (Clonidine 0.2 Mg Patch.Tdwk) 0.2 mg TRANSDERMA Fr@0900 ON LICENSE OF [facility]; Protocol Last Admin: 04/20/24 10:32 Dose: Not Given Ferrous Sulfate (Ferrous Sulfate 324 Mg Tablet.Dr) 324 mg PO BID ON LICENSE OF [facility] Last Admin: 04/22/24 08:13 Dose: Not Given Haloperidol Lactate (Haloperidol Lactate Oral Conc 10 Mg/5 Ml Oral.Conc) 5 mg PO Q6H PRN PRN Reason: Psychosis or severe agitation Last Admin: 04/22/24 04:55 Dose: 5 mg Haloperidol Lactate (Haloperidol Lactate 5 Mg/Ml Vial) 5 mg IM TID PRN PRN Reason: Refusal of Court PO Haldol Haloperidol Lactate (Haloperidol Lactate Oral Conc 10 Mg/5 Ml Oral.Conc) 5 mg PO TID ON LICENSE OF [facility] Last Admin: 04/22/24 08:10 Dose: 5 mg Lorazepam (Lorazepam 1 Mg Tablet) 2 mg PO Q6H PRN PRN Reason: agitation/severe anxiety Last Admin: 04/22/24 01:34 Dose: 2 mg Magnesium Hydroxide (Milk Of Magnesia 30 Ml Oral.Susp) 30 ml PO DAILY PRN PRN Reason: Constipation Nicotine Polacrilex (Nicotine Polacrilex 2 Mg Gum) 2 mg BUCCAL Q2H PRN PRN Reason: Nicotine Cravings Trazodone HCl (Trazodone Hcl 50 Mg Tablet) 50 mg PO BEDTIME MRX1 PRN PRN Reason: Insomnia Last Admin: 04/22/24 01:34 Dose: 50 mg Valproic Acid (Valproic Acid Liquid 250 Mg/5 Ml Solution) 750 mg PO BID ON LICENSE OF [facility] Last Admin: 04/22/24 08:09 Dose: 750 mg Vitamin D (Cholecalciferol (Vitamin D3) 25 Mcg Tablet) 50 mcg PO DAILY ON LICENSE OF [facility] Last Admin: 04/22/24 08:09 Dose: 50 mcg Allergies Allergies Allergy/AdvReac Type Severity Reaction Status Date / Time lithium Allergy Unknown Verified 01/13/24 18:08 Assessment & Plan Assessment & Plan (1) Schizoaffective disorder, bipolar type: Status: Acute Code(s): F25.0 - Schizoaffective disorder, bipolar type (2) Hypertension: Status: Acute Code(s): I10 - Essential (primary) hypertension (3) Diabetes mellitus: Status: Acute Code(s): E11.9 - Type 2 diabetes mellitus without complications Plan 03/23 keep same treatment 68 yo from a [facility] with chronic psychotic disorder, refusing medication , elevated bp and disorganized and agitated behavior requiring psychiatric hospitalization and treatment not competent to sign cv. 01/14 continue to follow - gave lambs warning today- and he says the storage manager will be a she- still refusing medications and quite psychotic takes alot of redirection to settle him poor adls- 01/15- Refuses meds, refuses hospitalist consult-second day File for Section Seven consideration on 01/17. Provide care as he will allow. 01/16: Depakote 250 mg bid Haldol, Lorazepam, Benadryl prn Section 7 to be filed 01/17 Message left for guardian. 01/17: Section Seven filed. . Court scheduled 01/26/24 Pt continues to refuse medicaitons. He is in need of full assist with ADL's and is incontinent. Pt transferred to [facility] this afternoon. 01/19/2024 Patient pending civil commitment loud agitated would not engage in any conversation with this news writer non informational healing agitated verbally aggressive. Every attempt being made to get a copy of the patient's Servin order unclear why this has been so problematic. Encourage food and fluids 01/19 continue same treatment 01/21/24 Patient labile agitated intrusive close labs ordered in order to per to protect the community patient wandering into patient's rooms intrusive impulsive laying on another person's bed. Often hostile agitated posturing at times we are still pending copy of reported Servin order encourage p.o. compliance 01/22/2024 Patient did require physical hold escort him out of a room that he jumped in other patient's room and on their bed while there were in it. There was no physical harm and the patient did leave the room his markedly impulsive with poor judgment remains on close observation has intermittently taken Haldol liquid pending civil commitment treatment plan there is a question of Servin order 01/22 The patient had been more agitated. We review his Servin order and we are increasing the Abilify up to 15 mg p.o. daily and adding Haldol p.r.n. since it is in his role years order. We needed to give him some p.r.n. at 14:00. 01/23 The patient is grossly psychotic disrobing and sexually disinhibited we are starting Haldol 2 mg p.o. t.i.d. to target psychosis as per court order treatment over objection order. 01/24 The patient remains very agitated and angry disruptive so we are increasing the Haldol from 2 mg to 5 mg p.o. t.i.d. with a backup IM if the patient refused as per court order. 01/25 we have increased the Haldol but still he is very psychotic and restless. Today he refused his blood work. He needed to be physically held twice. 01/26 the patient remains agitated at times but his last IM backup was yesterday. We are going to increase Abilify up to 20 mg daily to target mood lability and psychosis. 01/29/2024: Increase frequency of prn doses from tid to prn q 6mrs. Poor insight and unable to care for self 02/08 pt has not take any of mood stabilizer. continues to have poor sleep, intrusive and combative requiring IM medications, increase haldol 10mg po TID, back up IM. Will add ativan 1mg po TID, also back up IM. Labs show elevated CK 2300, BUN 20, Cr 1.80, unclear baseline Cr as he does have CKD. Discussed with hospitalist Dr. Gama, to give IV fluids and monitor labs tomorrow. LFTs also elevated suspect this is secondary to elevation in CK and should trend down as CK goes down. 02/09 still agitated, creatinine and CPK slightly high as yesterday, he removed his IV line there is no big difference with IV hydration. We are changing his community role years to have more options since it is not working Abilify and Haldol 02/10 3 chemical restraints yesterday. appears more combative, and somewhat more confused. Will decrease amount of benzo and antihistamine given to him as it seems to be backfiring. did discuss with ICU attending, Dr. Whiteside possibility of transferring there but they would like us to try IV depakote and exhaust all resources prior to considering transfer. Pt did take depakote springkle 1000mg with apple sauce with much encourage. 02/11 continue tx. 02/12 continue same treatment 01/14 continue with Abilify and other court order medications, we are Nam[place] and the court order. 02/14 Team report improvement today with pt having greater comfort and less agitation. [id number] the staff reported that the patient had been less violent in the last 24 hours 02/16 continue tx. will check depakote and ammonia on 02/17 in AM. 02/17 continue regime and plan of care 02/26/2024: Continue current regimen as per court order 03/03 continue tx. lactulose for now as we don't have new ammonia level, but will try to chack labs. 03/16- continue medications, held clonidine patch for today due to low BP. repeat labs. 03/17-continue plan of care 03/18- continue tx 03/19 continue same treatment 03/20 waiting for CBC, basic metabolic panel and ammonia level. Today he nearly choked with a grape. We are going to change his diet to chopped 03/21 patient had a fall and he was assessed. No injuries as per CT scan of head and pelvis. Again he refused again his blood work vital signs within normal limits. 03/22 keep same treatment 03/23 keep same treatment 03 24 24 Continue plan of care Depakote Tegretol Haldol carbamazepine 03/25/2024 Repeat swallowing study ordered he is already on ground diet consider lowering Haldol versus Cogentin generally try to avoid older man 03/26 lowered Haldol to 7.5 p.o. b.i.d. 03/27 start Abilify Maintena 400 IM, later on we stopped it since he was over- sedated. 03/28 monitor vital signs and we will order blood work for tomorrow morning. 03/29 keep same treatment. We are deferring Abilify Maintena since the patient is still sedated and looks slightly delirious. He has refused blood work 03/31 continue current tx. less combative but no improvement in mentation. grossly disorganized and non sensical. 04/01: court ordered meds- team reviewing and optimizing same. 04/02 continue tx. 04/03 keep same treatment, so far he had been more compliant with some of the medications in the last 3 days. 04/04 start Abilify Maintena 400 mg IM 04/05 keep Haldol as prescribed 04/06 keep same treatment 04/08/24 continue current plan, regime 04/09/24 continue plan, CAT pending 04/10 continue same treatment 04/11 keep same treatment 04/12 lowering Haldol to 5 mg p.o. b.i.d. since the patient is over-sedated. 04/13 keep same treatment 04/14 agitated today, jumping around, dive off bed, crawling on all 4's, naked; took meds; now sleeping -floridly psychotic and news writer thought best to let pt sleep 04/16 keep same treatment 04/17 Abilify Maintena 400 mg today and scheduled next for 30 days. 04/18 change Haldol to 5 mg p.o. t.i.d. with backup IM if he refuses p.o. 04/19 keep same treatment. 04/20 keep same treatment 04/21: verbally aggressive, restless. continue 1:1 and current Tx plan. 04/22: asleep, not easily rousable. restless and irritable last gwen, slept only 4 hours overnight. continue current mgmt. Reason for continued inpatient stay Substantial Risk for: harm to others and inability to function Time Spent With Patient Time: Total time managing care of this patient today ____ minutes.
[2024-04-22 19:54] VITALS: BP 101/57; PULSE 91; RESP 16; TEMP 37.7; O2SAT 98
[2024-04-23 07:44] VITALS: BP 138/64; PULSE 54; RESP 18; TEMP 36.4; O2SAT 100
[2024-04-23] MEDS: Valproic Acid Liquid 250 MG/5 ML SOLUTION 750 MG PO ×2 (08:33→22:36)
[2024-04-23] MEDS: Aspirin 81 MG TAB.CHEW PO (08:34)
[2024-04-23] MEDS: Cholecalciferol (Vitamin D3) 25 MCG TABLET 50 MCG PO (08:34)
[2024-04-23] MEDS: Haloperidol Lactate Oral Conc 10 MG/5 ML ORAL.CONC 5 MG PO ×3 (08:34→22:36)
[2024-04-23] MEDS: carBAMazepine 200 MG TABLET PO ×2 (08:34→22:36)
[2024-04-23] MEDS: LORazepam 1 MG TABLET 2 MG PO ×2 (09:51→15:51)
--- NOTE | 2024-04-23 11:13 | HO.PSYCHPN ---
Subjective Subjective Date of Service: 04/23/24 Reason For Visit: Schizoaffective disorder Subjective Notes: Conditional Voluntary Healthcare Proxy: Yes Interim History: The nursing staff reported the patient had been exit seeking he took his medication and received some p.r.n. Haldol. He had been incontinent of urine. The occupational therapist reported the patient looks slightly less disorganized. On interview the patient reported that he is doing fine but it is evident that he has EPS. We will start a low dose of Cogentin today Mental Status Exam Mental Status Exam Patient Appearance: Disheveled and Unkempt Patient Orientation: Person and Situation Level of Consciousness: Awake and Appropriate Patient Behavior: Guarded and Passive Mood Description: Blunted Affect Description: Suspicious Patient Cognition Impaired: Yes Ability to Follow Directions: Good Speech Pattern: Impoverished Hallucinations: None Delusions: Paranoid Ideation and Ideas of Reference Thought Process: Distracted and Slowed Thinking Thought Content: positive for [place] and positive for Thought Blocking Judgement: Poor Diagnostics Vital Signs (24Hr): Vital Signs - 24 hr 04/22/24 19:54 04/23/24 07:44 Temperature 99.8 F 97.5 F Pulse Rate 91 54 Respiratory Rate 16 18 Blood Pressure 101/57 L 138/64 Pulse Oximetry 98 100 Oxygen Delivery Method Room Air Room Air BMI result Body Mass Index 25.1 Labs 03/30/24 08:49 03/30/24 08:49 Imaging Radiology Impressions: ITS Impressions Chest X-Ray 03/20/24 08:33 IMPRESSION: Extremely limited exam. Only lateral views could be obtained. Suspect basilar airspace opacity, possibly pneumonia. Electronically signed by: Fortino Dumont MD 03/20/2024 10:10 AM [employer] Cervical Spine CT 03/21/24 11:18 IMPRESSION: 1. Allowing for suboptimal positioning, there is no CT evidence of acute cervical spine fracture or injury. 2. Degenerative changes with bulky ventral osteophytes spanning C4-C6, appearance in keeping with DISH. Electronically signed by: Fortino Dumont MD 03/21/2024 12:01 PM [facility] RP Head CT 03/21/24 11:18 IMPRESSION: 1. No acute intracranial abnormality. No acute fractures seen. 2. Stable chronic findings as discussed. Electronically signed by: Fortino Dumont MD 03/21/2024 11:54 AM EST RP Pelvis CT 03/21/24 11:18 IMPRESSION: 1. No acute bony abnormalities. No fractures. 2. Constipation with a large amount of stool in the rectum and sigmoid colon. 3. Mild thickening of the urinary bladder wall despite underdistention, nonspecific. Differential includes the detrusor hypertrophy, neurogenic bladder, or possibly cystitis. Electronically signed by: Fortino Dumont MD 03/21/2024 12:09 PM EST RP Head CT 03/28/24 09:37 IMPRESSION: No acute fracture, bony calvarium. No acute intracranial hemorrhage. Small vessel occlusive disease. Bifrontal bitemporal lobe atrophy. Electronically signed by: Juan Corrigan MD 03/28/2024 10:19 AM EST RP Medications Medications Current Medications Acetaminophen (Acetaminophen 325 Mg Tablet) 650 mg PO Q6H PRN PRN Reason: Headache/Pain Mild Scale (1-3) Last Admin: 01/17/24 23:53 Dose: 325 mg Al Hydroxide/Mg Hydroxide (Magnesium Hydrox/Alum Hydrox 30 Ml Oral.Susp) 30 ml PO Q6H PRN PRN Reason: Heartburn/Nausea Aripiprazole (Aripiprazole Er 400 Mg Suser.Syr) 400 mg IM Q30D [facility] Aspirin (Aspirin 81 Mg Tab.Chew) 81 mg PO DAILY [facility] Last Admin: 04/23/24 08:34 Dose: 81 mg Benztropine Mesylate (Benztropine Mesylate 0.5 Mg Tablet) 0.5 mg PO BID [facility] Carbamazepine (Carbamazepine 200 Mg Tablet) 200 mg PO BID [facility] Last Admin: 04/23/24 08:34 Dose: 200 mg Clonidine (Clonidine 0.2 Mg Patch.Tdwk) 0.2 mg TRANSDERMA Fr@0900 [facility]; Protocol Last Admin: 04/20/24 10:32 Dose: Not Given Ferrous Sulfate (Ferrous Sulfate 324 Mg Tablet.Dr) 324 mg PO BID [facility] Last Admin: 04/23/24 08:37 Dose: Not Given Haloperidol Lactate (Haloperidol Lactate Oral Conc 10 Mg/5 Ml Oral.Conc) 5 mg PO Q6H PRN PRN Reason: Psychosis or severe agitation Last Admin: 04/22/24 12:46 Dose: 5 mg Haloperidol Lactate (Haloperidol Lactate 5 Mg/Ml Vial) 5 mg IM TID PRN PRN Reason: Refusal of Court PO Haldol Haloperidol Lactate (Haloperidol Lactate Oral Conc 10 Mg/5 Ml Oral.Conc) 5 mg PO TID [facility] Last Admin: 04/23/24 08:34 Dose: 5 mg Lorazepam (Lorazepam 1 Mg Tablet) 2 mg PO Q6H PRN PRN Reason: Anxiety Last Admin: 04/23/24 09:51 Dose: 2 mg Magnesium Hydroxide (Milk Of Magnesia 30 Ml Oral.Susp) 30 ml PO DAILY PRN PRN Reason: Constipation Nicotine Polacrilex (Nicotine Polacrilex 2 Mg Gum) 2 mg BUCCAL Q2H PRN PRN Reason: Nicotine Cravings Trazodone HCl (Trazodone Hcl 50 Mg Tablet) 50 mg PO BEDTIME MRX1 PRN PRN Reason: Insomnia Last Admin: 04/22/24 21:25 Dose: 50 mg Valproic Acid (Valproic Acid Liquid 250 Mg/5 Ml Solution) 750 mg PO BID [facility] Last Admin: 04/23/24 08:33 Dose: 750 mg Vitamin D (Cholecalciferol (Vitamin D3) 25 Mcg Tablet) 50 mcg PO DAILY [facility] Last Admin: 04/23/24 08:34 Dose: 50 mcg Allergies Allergies Allergy/AdvReac Type Severity Reaction Status Date / Time lithium Allergy Unknown Verified 01/13/24 18:08 Assessment & Plan Assessment & Plan (1) Schizoaffective disorder, bipolar type: Status: Acute Code(s): F25.0 - Schizoaffective disorder, bipolar type (2) Hypertension: Status: Acute Code(s): I10 - Essential (primary) hypertension (3) Diabetes mellitus: Status: Acute Code(s): E11.9 - Type 2 diabetes mellitus without complications Plan 03/23 keep same treatment 68 yo from a us[facility] with chronic psychotic disorder, refusing medication , elevated bp and disorganized and agitated behavior requiring psychiatric hospitalization and treatment not competent to sign cv. 01/14 continue to follow - gave lambs warning today- and he says the furniture finisher helper will be a she- still refusing medications and quite psychotic takes alot of redirection to settle him poor adls- 01/15- Refuses meds, refuses hospitalist consult-second day File for Section Seven consideration on 01/17. Provide care as he will allow. 01/16: Depakote 250 mg bid Haldol, Lorazepam, Benadryl prn Section 7 to be filed 01/17 Message left for guardian. 01/17: Section Seven filed. . Court scheduled 01/26/24 Pt continues to refuse medicaitons. He is in need of full assist with ADL's and is incontinent. Pt transferred to [facility] this afternoon. 01/19/2024 Patient pending civil commitment loud agitated would not engage in any conversation with this check writer non informational healing agitated verbally aggressive. Every attempt being made to get a copy of the patient's Servin order unclear why this has been so problematic. Encourage food and fluids 01/19 continue same treatment 01/21/24 Patient labile agitated intrusive close labs ordered in order to per to protect the community patient wandering into patient's rooms intrusive impulsive laying on another person's bed. Often hostile agitated posturing at times we are still pending copy of reported Servin order encourage p.o. compliance 01/22/2024 Patient did require physical hold escort him out of a room that he jumped in other patient's room and on their bed while there were in it. There was no physical harm and the patient did leave the room his markedly impulsive with poor judgment remains on close observation has intermittently taken Haldol liquid pending civil commitment treatment plan there is a question of Servin order 01/22 The patient had been more agitated. We review his Servin order and we are increasing the Abilify up to 15 mg p.o. daily and adding Haldol p.r.n. since it is in his role years order. We needed to give him some p.r.n. at 14:00. 01/23 The patient is grossly psychotic disrobing and sexually disinhibited we are starting Haldol 2 mg p.o. t.i.d. to target psychosis as per court order treatment over objection order. 01/24 The patient remains very agitated and angry disruptive so we are increasing the Haldol from 2 mg to 5 mg p.o. t.i.d. with a backup IM if the patient refused as per court order. 01/25 we have increased the Haldol but still he is very psychotic and restless. Today he refused his blood work. He needed to be physically held twice. 01/26 the patient remains agitated at times but his last IM backup was yesterday. We are going to increase Abilify up to 20 mg daily to target mood lability and psychosis. 01/29/2024: Increase frequency of prn doses from tid to prn q 6mrs. Poor insight and unable to care for self 02/08 pt has not take any of mood stabilizer. continues to have poor sleep, intrusive and combative requiring IM medications, increase haldol 10mg po TID, back up IM. Will add ativan 1mg po TID, also back up IM. Labs show elevated CK 2300, BUN 20, Cr 1.80, unclear baseline Cr as he does have CKD. Discussed with hospitalist Dr. Gama, to give IV fluids and monitor labs tomorrow. LFTs also elevated suspect this is secondary to elevation in CK and should trend down as CK goes down. 02/09 still agitated, creatinine and CPK slightly high as yesterday, he removed his IV line there is no big difference with IV hydration. We are changing his community role years to have more options since it is not working Abilify and Haldol 02/10 3 chemical restraints yesterday. appears more combative, and somewhat more confused. Will decrease amount of benzo and antihistamine given to him as it seems to be backfiring. did discuss with ICU attending, Dr. Whiteside possibility of transferring there but they would like us to try IV depakote and exhaust all resources prior to considering transfer. Pt did take depakote springkle 1000mg with apple sauce with much encourage. 02/11 continue tx. 02/12 continue same treatment 01/14 continue with Abilify and other court order medications, we are Namenda and the court order. 02/14 Team report improvement today with pt having greater comfort and less agitation. [id number] the staff reported that the patient had been less violent in the last 24 hours 02/16 continue tx. will check depakote and ammonia on 02/17 in AM. 02/17 continue regime and plan of care 02/26/2024: Continue current regimen as per court order 03/03 continue tx. lactulose for now as we don't have new ammonia level, but will try to chack labs. 03/16- continue medications, held clonidine patch for today due to low BP. repeat labs. 03/17-continue plan of care 03/18- continue tx 03/19 continue same treatment 03/20 waiting for CBC, basic metabolic panel and ammonia level. Today he nearly choked with a grape. We are going to change his diet to chopped 03/21 patient had a fall and he was assessed. No injuries as per CT scan of head and pelvis. Again he refused again his blood work vital signs within normal limits. 03/22 keep same treatment 03/23 keep same treatment 03 24 24 Continue plan of care Depakote Tegretol Haldol carbamazepine 03/25/2024 Repeat swallowing study ordered he is already on ground diet consider lowering Haldol versus Cogentin generally try to avoid older man 03/26 lowered Haldol to 7.5 p.o. b.i.d. 03/27 start Abilify Maintena 400 IM, later on we stopped it since he was over-sedated. 03/28 monitor vital signs and we will order blood work for tomorrow morning. 03/29 keep same treatment. We are deferring Abilify Maintena since the patient is still sedated and looks slightly delirious. He has refused blood work 03/31 continue current tx. less combative but no improvement in mentation. grossly disorganized and non sensical. 04/01: court ordered meds- team reviewing and optimizing same. 04/02 continue tx. 04/03 keep same treatment, so far he had been more compliant with some of the medications in the last 3 days. 04/04 start Abilify Maintena 400 mg IM 04/05 keep Haldol as prescribed 04/06 keep same treatment 04/08/24 continue current plan, regime 04/09/24 continue plan, CAT pending 04/10 continue same treatment 04/11 keep same treatment 04/12 lowering Haldol to 5 mg p.o. b.i.d. since the patient is over-sedated. 04/13 keep same treatment 04/14 agitated today, jumping around, dive off bed, crawling on all 4's, naked; took meds; now sleeping -floridly psychotic and check writer thought best to let pt sleep 04/16 keep same treatment 04/17 Abilify Maintena 400 mg today and scheduled next for 30 days. 04/18 change Haldol to 5 mg p.o. t.i.d. with backup IM if he refuses p.o. 04/19 keep same treatment. 04/20 keep same treatment 04/21: verbally aggressive, restless. continue 1:1 and current Tx plan. 04/22: asleep, not easily rousable. restless and irritable last gwen, slept only 4 hours overnight. continue current mgmt. 04/23 add Cogentin 0.5 p.o. b.i.d. small improvement on his psychosis Reason for continued inpatient stay Substantial Risk for: inability to function, rapid decompensation and med/psych decompensation Time Spent With Patient Time: Total time managing care of this patient today __20__ minutes.
--- NOTE | 2024-04-23 16:27 | PM.EVENT ---
Event Note Date of Service: 04/23/24 Event Note: called to follow up for report of diarrhea and fall. no reports of furher diarrhea, if recurs can check stool studies check cbc, bmp, lfts, mg fall- grandual, hit head on side of bed. has visible bump mid front, check cth, falls likely due to EPS from antiphsycotics Time Spent With Patient Time: Total time managing care of this patient today ____ minutes.
--- NOTE | 2024-04-23 17:37 | PC.NURSE ---
At approximately 15:45, [facility] reported to this radio news writer that Bret was in his room in his bed and slid himself down onto the floor. While lowering himself to the floor, he hit his head on the side of the bed. A large bump appeared in the middle of his forehead. Provider Bruce Watson was notified and head CT, neuro checks, and hospitalist consult were ordered. Icepack was applied as tolerated.
[2024-04-23 20:00] VITALS: BP 106/60; PULSE 60; RESP 16; TEMP 36.5; O2SAT 99
[2024-04-23] MEDS: Benztropine Mesylate 0.5 MG TABLET PO (22:36)
[2024-04-23] MEDS: traZODone HCL 50 MG TABLET PO (22:36)
[2024-04-24] MEDS: traZODone HCL 50 MG TABLET PO ×3 (00:56→21:40)
[2024-04-24 06:00] VITALS: BP 144/69; PULSE 60; RESP 16; TEMP 36.6; O2SAT 98
--- NOTE | 2024-04-24 06:07 | PC.NURSE ---
Patient is s/p fall, transferred self out of bed to floor and hit head per report from previous shift, alert and oriented to self, vitals stable and within baseline, neuro status is intact. Patient is cooperative with hygiene care, took all meds offered and ate snacks x2 during shift. Will continue to monitor.
[2024-04-24 08:00] VITALS: BP 130/58; PULSE 62; RESP 16; O2SAT 98
[2024-04-24] MEDS: LORazepam 1 MG TABLET 2 MG PO ×2 (08:42→14:57)
[2024-04-24] MEDS: Valproic Acid Liquid 250 MG/5 ML SOLUTION 750 MG PO ×2 (08:42→20:10)
[2024-04-24] MEDS: Cholecalciferol (Vitamin D3) 25 MCG TABLET 50 MCG PO (08:43)
[2024-04-24] MEDS: Haloperidol Lactate Oral Conc 10 MG/5 ML ORAL.CONC 5 MG PO ×3 (08:43→20:09)
[2024-04-24] MEDS: Benztropine Mesylate 0.5 MG TABLET PO ×2 (08:43→20:09)
[2024-04-24] MEDS: carBAMazepine 200 MG TABLET PO ×2 (08:43→20:09)
--- NOTE | 2024-04-24 10:21 | HO.PSYCHPN ---
Subjective Subjective Date of Service: 04/24/24 Reason For Visit: Schizoaffective disorder Subjective Notes: Conditional Voluntary Interim History: The nursing staff reported that yesterday the patient threw himself outside of the bed and had an injury in his forehead. He was medically workout CT scan within normal limits. He had been grossly psychotic disrobing, he took PRNs. On interview the patient is very psychotic with evidence of EPS, we started Cogentin yesterday. Mental Status Exam Mental Status Exam Patient Appearance: Disheveled, Inappropriate and Unkempt Patient Orientation: Person Level of Consciousness: Disoriented and Restless Patient Behavior: Guarded and Suspicious Mood Description: Withdrawn Affect Description: Blunted Patient Cognition Impaired: Yes Ability to Follow Directions: Fair Speech Pattern: Impoverished Hallucinations: None Delusions: Paranoid Ideation and Ideas of Reference Thought Process: Distracted and Slowed Thinking Thought Content: positive for [place], positive for Poverty of Content and positive for Thought Blocking Judgement: Poor Diagnostics Vital Signs (24Hr): Vital Signs - 24 hr 04/23/24 20:00 04/24/24 06:00 Temperature 97.7 F 97.9 F Pulse Rate 60 60 Respiratory Rate 16 16 Blood Pressure 106/60 144/69 H Pulse Oximetry 99 98 Oxygen Delivery Method Room Air Room Air BMI result Body Mass Index 25.1 Labs 03/30/24 08:49 03/30/24 08:49 Imaging Radiology Impressions: ITS Impressions Chest X-Ray 03/20/24 08:33 IMPRESSION: Extremely limited exam. Only lateral views could be obtained. Suspect basilar airspace opacity, possibly pneumonia. Electronically signed by: Fortino Dumont MD 03/20/2024 10:10 AM EST RP Cervical Spine CT 03/21/24 11:18 IMPRESSION: 1. Allowing for suboptimal positioning, there is no CT evidence of acute cervical spine fracture or injury. 2. Degenerative changes with bulky ventral osteophytes spanning C4-C6, appearance in keeping with DISH. Electronically signed by: Fortino Dumont MD 03/21/2024 12:01 PM EST RP Head CT 03/21/24 11:18 IMPRESSION: 1. No acute intracranial abnormality. No acute fractures seen. 2. Stable chronic findings as discussed. Electronically signed by: Fortino Dumont MD 03/21/2024 11:54 AM EST RP Pelvis CT 03/21/24 11:18 IMPRESSION: 1. No acute bony abnormalities. No fractures. 2. Constipation with a large amount of stool in the rectum and sigmoid colon. 3. Mild thickening of the urinary bladder wall despite underdistention, nonspecific. Differential includes the detrusor hypertrophy, neurogenic bladder, or possibly cystitis. Electronically signed by: Fortino Dumont MD 03/21/2024 12:09 PM EST RP Head CT 03/28/24 09:37 IMPRESSION: No acute fracture, bony calvarium. No acute intracranial hemorrhage. Small vessel occlusive disease. Bifrontal bitemporal lobe atrophy. Electronically signed by: Juan Corrigan MD 03/28/2024 10:19 AM EST RP Medications Medications Current Medications Acetaminophen (Acetaminophen 325 Mg Tablet) 650 mg PO Q6H PRN PRN Reason: Headache/Pain Mild Scale (1-3) Last Admin: 01/17/24 23:53 Dose: 325 mg Al Hydroxide/Mg Hydroxide (Magnesium Hydrox/Alum Hydrox 30 Ml Oral.Susp) 30 ml PO Q6H PRN PRN Reason: Heartburn/Nausea Aripiprazole (Aripiprazole Er 400 Mg Suser.Syr) 400 mg IM Q30D [facility] Aspirin (Aspirin 81 Mg Tab.Chew) 81 mg PO DAILY [facility] Last Admin: 04/23/24 08:34 Dose: 81 mg Benztropine Mesylate (Benztropine Mesylate 0.5 Mg Tablet) 0.5 mg PO BID [facility] Last Admin: 04/24/24 08:43 Dose: 0.5 mg Carbamazepine (Carbamazepine 200 Mg Tablet) 200 mg PO BID [facility] Last Admin: 04/24/24 08:43 Dose: 200 mg Clonidine (Clonidine 0.2 Mg Patch.Tdwk) 0.2 mg TRANSDERMA Fr@0900 [facility]; Protocol Last Admin: 04/20/24 10:32 Dose: Not Given Ferrous Sulfate (Ferrous Sulfate 324 Mg Tablet.Dr) 324 mg PO BID [facility] Last Admin: 04/23/24 22:37 Dose: Not Given Haloperidol Lactate (Haloperidol Lactate Oral Conc 10 Mg/5 Ml Oral.Conc) 5 mg PO Q6H PRN PRN Reason: Psychosis or severe agitation Last Admin: 04/22/24 12:46 Dose: 5 mg Haloperidol Lactate (Haloperidol Lactate 5 Mg/Ml Vial) 5 mg IM TID PRN PRN Reason: Refusal of Court PO Haldol Haloperidol Lactate (Haloperidol Lactate Oral Conc 10 Mg/5 Ml Oral.Conc) 5 mg PO TID [facility] Last Admin: 04/24/24 08:43 Dose: 5 mg Lorazepam (Lorazepam 1 Mg Tablet) 2 mg PO Q6H PRN PRN Reason: Anxiety Last Admin: 04/24/24 08:42 Dose: 2 mg Magnesium Hydroxide (Milk Of Magnesia 30 Ml Oral.Susp) 30 ml PO DAILY PRN PRN Reason: Constipation Nicotine Polacrilex (Nicotine Polacrilex 2 Mg Gum) 2 mg BUCCAL Q2H PRN PRN Reason: Nicotine Cravings Trazodone HCl (Trazodone Hcl 50 Mg Tablet) 50 mg PO BEDTIME MRX1 PRN PRN Reason: Insomnia Last Admin: 04/24/24 00:56 Dose: 50 mg Valproic Acid (Valproic Acid Liquid 250 Mg/5 Ml Solution) 750 mg PO BID [facility] Last Admin: 04/24/24 08:42 Dose: 750 mg Vitamin D (Cholecalciferol (Vitamin D3) 25 Mcg Tablet) 50 mcg PO DAILY [facility] Last Admin: 04/24/24 08:43 Dose: 50 mcg Allergies Allergies Allergy/AdvReac Type Severity Reaction Status Date / Time lithium Allergy Unknown Verified 01/13/24 18:08 Assessment & Plan Assessment & Plan (1) Schizoaffective disorder, bipolar type: Status: Acute Code(s): F25.0 - Schizoaffective disorder, bipolar type (2) Hypertension: Status: Acute Code(s): I10 - Essential (primary) hypertension (3) Diabetes mellitus: Status: Acute Code(s): E11.9 - Type 2 diabetes mellitus without complications Plan 03/23 keep same treatment 68 yo from a custodial with chronic psychotic disorder, refusing medication , elevated bp and disorganized and agitated behavior requiring psychiatric hospitalization and treatment not competent to sign cv. 01/14 continue to follow - gave lambs warning today- and he says the silver brazer will be a she- still refusing medications and quite psychotic takes alot of redirection to settle him poor adls- 01/15- Refuses meds, refuses hospitalist consult-second day File for Section [place] consideration on 01/17. Provide care as he will allow. 01/16: Depakote 250 mg bid Haldol, Lorazepam, Benadryl prn Section 7 to be filed 01/17 Message left for guardian. 01/17: Section Seven filed. . Court scheduled 01/26/24 Pt continues to refuse medicaitons. He is in need of full assist with ADL's and is incontinent. Pt transferred to [facility] this afternoon. 01/19/2024 Patient pending civil commitment loud agitated would not engage in any conversation with this conventional mortgage underwriter non informational healing agitated verbally aggressive. Every attempt being made to get a copy of the patient's Servin order unclear why this has been so problematic. Encourage food and fluids 01/19 continue same treatment 01/21/24 Patient labile agitated intrusive close labs ordered in order to per to protect the community patient wandering into patient's rooms intrusive impulsive laying on another person's bed. Often hostile agitated posturing at times we are still pending copy of reported Servin order encourage p.o. compliance 01/22/2024 Patient did require physical hold escort him out of a room that he jumped in other patient's room and on their bed while there were in it. There was no physical harm and the patient did leave the room his markedly impulsive with poor judgment remains on close observation has intermittently taken Haldol liquid pending civil commitment treatment plan there is a question of Servin order 01/22 The patient had been more agitated. We review his Servin order and we are increasing the Abilify up to 15 mg p.o. daily and adding Haldol p.r.n. since it is in his role years order. We needed to give him some p.r.n. at 14:00. 01/23 The patient is grossly psychotic disrobing and sexually disinhibited we are starting Haldol 2 mg p.o. t.i.d. to target psychosis as per court order treatment over objection order. 01/24 The patient remains very agitated and angry disruptive so we are increasing the Haldol from 2 mg to 5 mg p.o. t.i.d. with a backup IM if the patient refused as per court order. 01/25 we have increased the Haldol but still he is very psychotic and restless. Today he refused his blood work. He needed to be physically held twice. 01/26 the patient remains agitated at times but his last IM backup was yesterday. We are going to increase Abilify up to 20 mg daily to target mood lability and psychosis. 01/29/2024: Increase frequency of prn doses from tid to prn q 6mrs. Poor insight and unable to care for self 02/08 pt has not take any of mood stabilizer. continues to have poor sleep, intrusive and combative requiring IM medications, increase haldol 10mg po TID, back up IM. Will add ativan 1mg po TID, also back up IM. Labs show elevated CK 2300, BUN 20, Cr 1.80, unclear baseline Cr as he does have CKD. Discussed with hospitalist Dr. Gama, to give IV fluids and monitor labs tomorrow. LFTs also elevated suspect this is secondary to elevation in CK and should trend down as CK goes down. 02/09 still agitated, creatinine and CPK slightly high as yesterday, he removed his IV line there is no big difference with IV hydration. We are changing his community role years to have more options since it is not working Abilify and Haldol 02/10 3 chemical restraints yesterday. appears more combative, and somewhat more confused. Will decrease amount of benzo and antihistamine given to him as it seems to be backfiring. did discuss with ICU attending, Dr. Whiteside possibility of transferring there but they would like us to try IV depakote and exhaust all resources prior to considering transfer. Pt did take depakote springkle 1000mg with apple sauce with much encourage. 02/11 continue tx. 02/12 continue same treatment 01/14 continue with Abilify and other court order medications, we are Nam[place] and the court order. 02/14 Team report improvement today with pt having greater comfort and less agitation. [id number] the staff reported that the patient had been less violent in the last 24 hours 02/16 continue tx. will check depakote and ammonia on 02/17 in AM. 02/17 continue regime and plan of care 02/26/2024: Continue current regimen as per court order 03/03 continue tx. lactulose for now as we don't have new ammonia level, but will try to chack labs. 03/16- continue medications, held clonidine patch for today due to low BP. repeat labs. 03/17-continue plan of care 03/18- continue tx 03/19 continue same treatment 03/20 waiting for CBC, basic metabolic panel and ammonia level. Today he nearly choked with a grape. We are going to change his diet to chopped 03/21 patient had a fall and he was assessed. No injuries as per CT scan of head and pelvis. Again he refused again his blood work vital signs within normal limits. 03/22 keep same treatment 03/23 keep same treatment 03 24 24 Continue plan of care Depakote Tegretol Haldol carbamazepine 03/25/2024 Repeat swallowing study ordered he is already on ground diet consider lowering Haldol versus Cogentin generally try to avoid older man 03/26 lowered Haldol to 7.5 p.o. b.i.d. 03/27 start Abilify Maintena 400 IM, later on we stopped it since he was over-sedated. 03/28 monitor vital signs and we will order blood work for tomorrow morning. 03/29 keep same treatment. We are deferring Abilify Maintena since the patient is still sedated and looks slightly delirious. He has refused blood work 03/31 continue current tx. less combative but no improvement in mentation. grossly disorganized and non sensical. 04/01: court ordered meds- team reviewing and optimizing same. 04/02 continue tx. 04/03 keep same treatment, so far he had been more compliant with some of the medications in the last 3 days. 04/04 start Abilify Maintena 400 mg IM 04/05 keep Haldol as prescribed 04/06 keep same treatment 04/08/24 continue current plan, regime 04/09/24 continue plan, CAT pending 04/10 continue same treatment 04/11 keep same treatment 04/12 lowering Haldol to 5 mg p.o. b.i.d. since the patient is over-sedated. 04/13 keep same treatment 04/14 agitated today, jumping around, dive off bed, crawling on all 4's, naked; took meds; now sleeping -floridly psychotic and conventional mortgage underwriter thought best to let pt sleep 04/16 keep same treatment 04/17 Abilify Maintena 400 mg today and scheduled next for 30 days. 04/18 change Haldol to 5 mg p.o. t.i.d. with backup IM if he refuses p.o. 04/19 keep same treatment. 04/20 keep same treatment 04/21: verbally aggressive, restless. continue 1:1 and current Tx plan. 04/22: asleep, not easily rousable. restless and irritable last gwen, slept only 4 hours overnight. continue current mgmt. 04/23 add Cogentin 0.5 p.o. b.i.d. small improvement on his psychosis 04/24 continue with same treatment. Reason for continued inpatient stay Substantial Risk for: harm to self, harm to others, inability to function, rapid decompensation and med/psych decompensation Time Spent With Patient Time: Total time managing care of this patient today __20__ minutes.
[2024-04-24 20:00] VITALS: BP 107/55; PULSE 55; RESP 16; TEMP 36.3; O2SAT 100
[2024-04-25] MEDS: LORazepam 1 MG TABLET 2 MG PO ×3 (03:52→21:51)
[2024-04-25] MEDS: Haloperidol Lactate Oral Conc 10 MG/5 ML ORAL.CONC 5 MG PO ×4 (05:08→21:18)
[2024-04-25] MEDS: Ferrous Sulfate 324 MG TABLET.DR PO (07:49)
[2024-04-25] MEDS: Valproic Acid Liquid 250 MG/5 ML SOLUTION 750 MG PO ×2 (07:49→21:18)
[2024-04-25] MEDS: carBAMazepine 200 MG TABLET PO ×2 (07:50→21:51)
[2024-04-25] MEDS: Benztropine Mesylate 0.5 MG TABLET PO ×2 (07:51→21:51)
[2024-04-25] MEDS: Cholecalciferol (Vitamin D3) 25 MCG TABLET 50 MCG PO (07:51)
[2024-04-25 08:07] VITALS: BP 133/67; PULSE 66; RESP 20; TEMP 35.9; O2SAT 100
--- NOTE | 2024-04-25 09:43 | P.PNPSI_ITS ---
Subjective Subjective Date of Service: 04/25/24 Reason For Visit: Schizoaffective disorder Interim History: Reported the patient had been sexually inappropriate, he was seen rolling on the floor he needed p.r.n. medication. He took all his p.o. medications. Today at noon, the patient fell again and hit his back of his head. He looks like he isn't having extrapyramidal symptoms and probably akathisia. We are ordering a CT scan for the reason phone with the only route checks. The case was discussed with the team we decided to change the clonidine patch to propranolol to address akathisia. He was started on benztropine a few days ago but he could get more confused due to anticholinergic effect. Mental Status Exam Mental Status Exam Patient Appearance: Disheveled, Appropriate and Unkempt Patient Orientation: Person and Situation Level of Consciousness: Awake Patient Behavior: Guarded and Passive Mood Description: Withdrawn Affect Description: Constricted Patient Cognition Impaired: Yes Ability to Follow Directions: Good Speech Pattern: Clear Hallucinations: None Delusions: Paranoid Ideation and Ideas of Reference Thought Process: Distracted and Slowed Thinking Thought Content: positive for [place] and positive for Poverty of Content Judgement: Fair Diagnostics Vital Signs (24Hr): Vital Signs - 24 hr 04/24/24 20:00 04/25/24 08:07 Temperature 97.3 F 96.7 F L Pulse Rate 55 66 Respiratory Rate 16 20 Blood Pressure 107/55 L 133/67 Pulse Oximetry 100 100 Oxygen Delivery Method Room Air Room Air BMI result Body Mass Index 25.1 Labs 03/30/24 08:49 03/30/24 08:49 Imaging Radiology Impressions: ITS Impressions Chest X-Ray 03/20/24 08:33 IMPRESSION: Extremely limited exam. Only lateral views could be obtained. Suspect basilar airspace opacity, possibly pneumonia. Electronically signed by: Fortino Dumont MD 03/20/2024 10:10 AM EST RP Cervical Spine CT 03/21/24 11:18 IMPRESSION: 1. Allowing for suboptimal positioning, there is no CT evidence of acute cervical spine fracture or injury. 2. Degenerative changes with bulky ventral osteophytes spanning C4-C6, appearance in keeping with DISH. Electronically signed by: Fortino Dumont MD 03/21/2024 12:01 PM EST RP Head CT 03/21/24 11:18 IMPRESSION: 1. No acute intracranial abnormality. No acute fractures seen. 2. Stable chronic findings as discussed. Electronically signed by: Fortino Dumont MD 03/21/2024 11:54 AM EST RP Pelvis CT 03/21/24 11:18 IMPRESSION: 1. No acute bony abnormalities. No fractures. 2. Constipation with a large amount of stool in the rectum and sigmoid colon. 3. Mild thickening of the urinary bladder wall despite underdistention, nonspecific. Differential includes the detrusor hypertrophy, neurogenic bladder, or possibly cystitis. Electronically signed by: Fortino Dumont MD 03/21/2024 12:09 PM EST RP Head CT 03/28/24 09:37 IMPRESSION: No acute fracture, bony calvarium. No acute intracranial hemorrhage. Small vessel occlusive disease. Bifrontal bitemporal lobe atrophy. Electronically signed by: Juan Corrigan MD 03/28/2024 10:19 AM EST RP Medications Medications Current Medications Acetaminophen (Acetaminophen 325 Mg Tablet) 650 mg PO Q6H PRN PRN Reason: Headache/Pain Mild Scale (1-3) Last Admin: 01/17/24 23:53 Dose: 325 mg Al Hydroxide/Mg Hydroxide (Magnesium Hydrox/Alum Hydrox 30 Ml Oral.Susp) 30 ml PO Q6H PRN PRN Reason: Heartburn/Nausea Aripiprazole (Aripiprazole Er 400 Mg Suser.Syr) 400 mg IM Q30D [facility] Aspirin (Aspirin 81 Mg Tab.Chew) 81 mg PO DAILY [facility] Last Admin: 04/23/24 08:34 Dose: 81 mg Benztropine Mesylate (Benztropine Mesylate 0.5 Mg Tablet) 0.5 mg PO BID [facility] Last Admin: 04/25/24 07:51 Dose: 0.5 mg Carbamazepine (Carbamazepine 200 Mg Tablet) 200 mg PO BID [facility] Last Admin: 04/25/24 07:50 Dose: 200 mg Clonidine (Clonidine 0.2 Mg Patch.Tdwk) 0.2 mg TRANSDERMA Fr@0900 [facility]; Protocol Last Admin: 04/20/24 10:32 Dose: Not Given Ferrous Sulfate (Ferrous Sulfate 324 Mg Tablet.) 324 mg PO BID [facility] Last Admin: 04/25/24 07:49 Dose: 324 mg Haloperidol Lactate (Haloperidol Lactate Oral Conc 10 Mg/5 Ml Oral.Conc) 5 mg PO Q6H PRN PRN Reason: Psychosis or severe agitation Last Admin: 04/22/24 12:46 Dose: 5 mg Haloperidol Lactate (Haloperidol Lactate 5 Mg/Ml Vial) 5 mg IM TID PRN PRN Reason: Refusal of Court PO Haldol Haloperidol Lactate (Haloperidol Lactate Oral Conc 10 Mg/5 Ml Oral.Conc) 5 mg PO TID [facility] Last Admin: 04/25/24 07:52 Dose: 5 mg Lorazepam (Lorazepam 1 Mg Tablet) 2 mg PO Q6H PRN PRN Reason: Anxiety Last Admin: 04/25/24 03:52 Dose: 2 mg Magnesium Hydroxide (Milk Of Magnesia 30 Ml Oral.Susp) 30 ml PO DAILY PRN PRN Reason: Constipation Nicotine Polacrilex (Nicotine Polacrilex 2 Mg Gum) 2 mg BUCCAL Q2H PRN PRN Reason: Nicotine Cravings Trazodone HCl (Trazodone Hcl 50 Mg Tablet) 50 mg PO BEDTIME MRX1 PRN PRN Reason: Insomnia Last Admin: 04/24/24 21:40 Dose: 50 mg Valproic Acid (Valproic Acid Liquid 250 Mg/5 Ml Solution) 750 mg PO BID [facility] Last Admin: 04/25/24 07:49 Dose: 750 mg Vitamin D (Cholecalciferol (Vitamin D3) 25 Mcg Tablet) 50 mcg PO DAILY [facility] Last Admin: 04/25/24 07:51 Dose: 50 mcg Allergies Allergies Allergy/AdvReac Type Severity Reaction Status Date / Time lithium Allergy Unknown Verified 01/13/24 18:08 Assessment & Plan Assessment & Plan (1) Schizoaffective disorder, bipolar type: Status: Acute Code(s): F25.0 - Schizoaffective disorder, bipolar type (2) Hypertension: Status: Acute Code(s): I10 - Essential (primary) hypertension (3) Diabetes mellitus: Status: Acute Code(s): E11.9 - Type 2 diabetes mellitus without complications Plan 03/23 keep same treatment 68 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 01/14 continue to follow - gave lambs warning today- and he says the refrigeration mechanic helper will be a she- still refusing medications and quite psychotic takes alot of redirection to settle him poor adls- 01/15- Refuses meds, refuses hospitalist consult-second day File for Section Seven consideration on 01/17. Provide care as he will allow. 01/16: Depakote 250 mg bid Haldol, Lorazepam, Benadryl prn Section 7 to be filed 01/17 Message left for guardian. 01/17: Section Seven filed. . Court scheduled 01/26/24 Pt continues to refuse medicaitons. He is in need of full assist with ADL's and is incontinent. Pt transferred to [facility] this afternoon. 01/19/2024 Patient pending civil commitment loud agitated would not engage in any conversation with this technical writer and editor non informational healing agitated verbally aggressive. Every attempt being made to get a copy of the patient's Servin order unclear why this has been so problematic. Encourage food and fluids 01/19 continue same treatment 01/21/24 Patient labile agitated intrusive close labs ordered in order to per to protect the community patient wandering into patient's rooms intrusive impulsive laying on another person's bed. Often hostile agitated posturing at times we are still pending copy of reported Servin order encourage p.o. compliance 01/22/2024 Patient did require physical hold escort him out of a room that he jumped in other patient's room and on their bed while there were in it. There was no physical harm and the patient did leave the room his markedly impulsive with poor judgment remains on close observation has intermittently taken Haldol liquid pending civil commitment treatment plan there is a question of Servin order 01/22 The patient had been more agitated. We review his Servin order and we are increasing the Abilify up to 15 mg p.o. daily and adding Haldol p.r.n. since it is in his role years order. We needed to give him some p.r.n. at 14:00. 01/23 The patient is grossly psychotic disrobing and sexually disinhibited we are starting Haldol 2 mg p.o. t.i.d. to target psychosis as per court order treatment over objection order. 01/24 The patient remains very agitated and angry disruptive so we are increasing the Haldol from 2 mg to 5 mg p.o. t.i.d. with a backup IM if the patient refused as per court order. 01/25 we have increased the Haldol but still he is very psychotic and restless. Today he refused his blood work. He needed to be physically held twice. 01/26 the patient remains agitated at times but his last IM backup was yesterday. We are going to increase Abilify up to 20 mg daily to target mood lability and psychosis. 01/29/2024: Increase frequency of prn doses from tid to prn q 6mrs. Poor insight and unable to care for self 02/08 pt has not take any of mood stabilizer. continues to have poor sleep, intrusive and combative requiring IM medications, increase haldol 10mg po TID, back up IM. Will add ativan 1mg po TID, also back up IM. Labs show elevated CK 2300, BUN 20, Cr 1.80, unclear baseline Cr as he does have CKD. Discussed with hospitalist Dr. Gama, to give IV fluids and monitor labs tomorrow. LFTs also elevated suspect this is secondary to elevation in CK and should trend down as CK goes down. 02/09 still agitated, creatinine and CPK slightly high as yesterday, he removed his IV line there is no big difference with IV hydration. We are changing his community role years to have more options since it is not working Abilify and Haldol 02/10 3 chemical restraints yesterday. appears more combative, and somewhat more confused. Will decrease amount of benzo and antihistamine given to him as it seems to be backfiring. did discuss with ICU attending, Dr. Whiteside possibility of transferring there but they would like us to try IV depakote and exhaust all resources prior to considering transfer. Pt did take depakote springkle 1000mg with apple sauce with much encourage. 02/11 continue tx. 02/12 continue same treatment 01/14 continue with Abilify and other court order medications, we are Nam[place] and the court order. 02/14 Team report improvement today with pt having greater comfort and less agitation. [id number] the staff reported that the patient had been less violent in the last 24 hours 02/16 continue tx. will check depakote and ammonia on 02/17 in AM. 02/17 continue regime and plan of care 02/26/2024: Continue current regimen as per court order 03/03 continue tx. lactulose for now as we don't have new ammonia level, but will try to chack labs. 03/16- continue medications, held clonidine patch for today due to low BP. repeat labs. 03/17-continue plan of care 03/18- continue tx 03/19 continue same treatment 03/20 waiting for CBC, basic metabolic panel and ammonia level. Today he nearly choked with a grape. We are going to change his diet to chopped 03/21 patient had a fall and he was assessed. No injuries as per CT scan of head and pelvis. Again he refused again his blood work vital signs within normal limits. 03/22 keep same treatment 03/23 keep same treatment 03 24 24 Continue plan of care Depakote Tegretol Haldol carbamazepine 03/25/2024 Repeat swallowing study ordered he is already on ground diet consider lowering Haldol versus Cogentin generally try to avoid older man 03/26 lowered Haldol to 7.5 p.o. b.i.d. 03/27 start Abilify Maintena 400 IM, later on we stopped it since he was over- sedated. 03/28 monitor vital signs and we will order blood work for tomorrow morning. 03/29 keep same treatment. We are deferring Abilify Maintena since the patient is still sedated and looks slightly delirious. He has refused blood work 03/31 continue current tx. less combative but no improvement in mentation. grossly disorganized and non sensical. 04/01: court ordered meds- team reviewing and optimizing same. 04/02 continue tx. 04/03 keep same treatment, so far he had been more compliant with some of the medications in the last 3 days. 04/04 start Abilify Maintena 400 mg IM 04/05 keep Haldol as prescribed 04/06 keep same treatment 04/08/24 continue current plan, regime 04/09/24 continue plan, CAT pending 04/10 continue same treatment 04/11 keep same treatment 04/12 lowering Haldol to 5 mg p.o. b.i.d. since the patient is over-sedated. 04/13 keep same treatment 04/14 agitated today, jumping around, dive off bed, crawling on all 4's, naked; took meds; now sleeping -floridly psychotic and technical writer and editor thought best to let pt sleep 04/16 keep same treatment 04/17 Abilify Maintena 400 mg today and scheduled next for 30 days. 04/18 change Haldol to 5 mg p.o. t.i.d. with backup IM if he refuses p.o. 04/19 keep same treatment. 04/20 keep same treatment 04/21: verbally aggressive, restless. continue 1:1 and current Tx plan. 04/22: asleep, not easily rousable. restless and irritable last gwen, slept only 4 hours overnight. continue current mgmt. 04/23 add Cogentin 0.5 p.o. b.i.d. small improvement on his psychosis 04/24 continue with same treatment. 04/25 the patient fell again. Blood pressure had been okay even though that he is noncompliant with clonidine patch. We discussed the case with the medical team and they agreed that we can discontinue since he had been noncompliant of clonidine patch since March 09. Starting on propranolol 5 mg p.o. t.i.d. to target akathisia. Reason for continued inpatient stay Substantial Risk for: inability to function, rapid decompensation and med/psych decompensation Time Spent With Patient Time: Total time managing care of this patient today __20__ minutes.
[2024-04-25 12:05] VITALS: RESP 20
[2024-04-25 16:45] VITALS: BP 105/58; PULSE 61; RESP 20; TEMP 35.9; O2SAT 100
[2024-04-25] MEDS: Propranolol HCL 10 MG TABLET 5 MG PO ×2 (16:47→21:25)
[2024-04-25 20:00] VITALS: BP 114/53; PULSE 60; RESP 16; TEMP 36.6; O2SAT 99
[2024-04-25 21:25] VITALS: BP 114/53; PULSE 60
[2024-04-25] MEDS: traZODone HCL 50 MG TABLET PO (21:26)
--- NOTE | 2024-04-25 22:47 | PM.EVENT ---
Event Note Date of Service: 04/25/24 Event Note: Pt is a 68-year-old male admitted to [facility] with hospitalist consult for witnessed fall. Pt long hx of erratic and difficult to control behavior, difficulty walking, and multiple falls on the unit. Pt today was bending over trying to put on his shoes when he lost his balance, fell backward, and struck the back of his head on the bed railing. CT of head negative for acute intracranial process. Pt seen and evaluated where he is resting comfortably in bed. Given patient's hx of agitation let pt rest for now. No noticeable hematoma or abrasion noted on the back of his head. Nontender to palpation. Spoke to nursing who report pt appears at baseline with no change in mentation or behavior. Currently no indication for additional workup or treatment. If pt becomes altered, lethargic, or exhibits significant changes to his ambulation, please reach out to hospitalist services for additional workup. Time Spent With Patient Time: Total time managing care of this patient today ____ minutes.
[2024-04-26 08:00] VITALS: BP 114/58; PULSE 64; RESP 16; O2SAT 98
[2024-04-26] MEDS: Haloperidol Lactate Oral Conc 10 MG/5 ML ORAL.CONC 5 MG PO ×3 (08:02→20:53)
[2024-04-26] MEDS: Valproic Acid Liquid 250 MG/5 ML SOLUTION 750 MG PO ×2 (08:02→20:51)
[2024-04-26] MEDS: Cholecalciferol (Vitamin D3) 25 MCG TABLET 50 MCG PO (08:03)
[2024-04-26] MEDS: carBAMazepine 200 MG TABLET PO ×2 (08:03→20:53)
[2024-04-26] MEDS: Benztropine Mesylate 0.5 MG TABLET PO ×2 (08:03→20:51)
[2024-04-26] MEDS: LORazepam 1 MG TABLET 2 MG PO ×2 (08:18→17:00)
--- NOTE | 2024-04-26 09:19 | HO.PSYCHPN ---
Subjective Subjective Date of Service: 04/26/24 Reason For Visit: Schizoaffective disorder Subjective Notes: Section 7 Interim History: Pt slept about 6 hrs. He continues to present as very disorganized, purposeless behaviors. Thought process with derailment, delirious like behaviors and presentation. Review of Systems Review of Systems s/p fall Yes Unobtainable due to mental status Mental Status Exam Mental Status Exam Narrative: Appearance: hospital gown, fair hygiene, wheelchair Behavior: minimally engaging but frustrated at redirection from another room Psychomotor: no noted tremors. Speech: mumbles, spontaneous TP: derailed/disorganized TC: nothing of note Mood: did not report Affect: intense eye contact SI: none HI: none VH/AH: denied Delusions: paranoid I dont trust you . Insight/judgment: impaired Memory/cog: alert, not oriented to place, month, nor year nor situation. Diagnostics Vital Signs (24Hr): Vital Signs - 24 hr 04/25/24 12:05 04/25/24 16:45 04/25/24 20:00 Temperature 96.7 F L 98 F Pulse Rate 61 60 Respiratory Rate 20 20 16 Blood Pressure 105/58 L 114/53 L Pulse Oximetry 100 99 Oxygen Delivery Method Room Air Room Air 04/25/24 21:25 Temperature Pulse Rate 60 Respiratory Rate Blood Pressure 114/53 L Pulse Oximetry Oxygen Delivery Method BMI result Body Mass Index 25.1 Labs 03/30/24 08:49 03/30/24 08:49 Imaging Radiology Impressions: ITS Impressions Chest X-Ray 03/20/24 08:33 IMPRESSION: Extremely limited exam. Only lateral views could be obtained. Suspect basilar airspace opacity, possibly pneumonia. Electronically signed by: Fortino Dumont MD 03/20/2024 10:10 AM EST RP Cervical Spine CT 03/21/24 11:18 IMPRESSION: 1. Allowing for suboptimal positioning, there is no CT evidence of acute cervical spine fracture or injury. 2. Degenerative changes with bulky ventral osteophytes spanning C4-C6, appearance in keeping with DISH. Electronically signed by: Fortino Dumont MD 03/21/2024 12:01 PM EST RP Head CT 03/21/24 11:18 IMPRESSION: 1. No acute intracranial abnormality. No acute fractures seen. 2. Stable chronic findings as discussed. Electronically signed by: Fortino Dumont MD 03/21/2024 11:54 AM EST RP Pelvis CT 03/21/24 11:18 IMPRESSION: 1. No acute bony abnormalities. No fractures. 2. Constipation with a large amount of stool in the rectum and sigmoid colon. 3. Mild thickening of the urinary bladder wall despite underdistention, nonspecific. Differential includes the detrusor hypertrophy, neurogenic bladder, or possibly cystitis. Electronically signed by: Fortino Dumont MD 03/21/2024 12:09 PM EST RP Head CT 03/28/24 09:37 IMPRESSION: No acute fracture, bony calvarium. No acute intracranial hemorrhage. Small vessel occlusive disease. Bifrontal bitemporal lobe atrophy. Electronically signed by: Juan Corrigan MD 03/28/2024 10:19 AM EST RP Head CT 04/25/24 12:22 IMPRESSION: No acute intracranial process seen. Electronically signed by: Ritchie Marte MD 04/25/2024 01:01 PM EST RP Medications Medications Current Medications Acetaminophen (Acetaminophen 325 Mg Tablet) 650 mg PO Q6H PRN PRN Reason: Headache/Pain Mild Scale (1-3) Last Admin: 01/17/24 23:53 Dose: 325 mg Al Hydroxide/Mg Hydroxide (Magnesium Hydrox/Alum Hydrox 30 Ml Oral.Susp) 30 ml PO Q6H PRN PRN Reason: Heartburn/Nausea Aripiprazole (Aripiprazole Er 400 Mg Suser.Syr) 400 mg IM Q30D [facility] Aspirin (Aspirin 81 Mg Tab.Chew) 81 mg PO DAILY [facility] Last Admin: 04/23/24 08:34 Dose: 81 mg Benztropine Mesylate (Benztropine Mesylate 0.5 Mg Tablet) 0.5 mg PO BID [facility] Last Admin: 04/26/24 08:03 Dose: 0.5 mg Carbamazepine (Carbamazepine 200 Mg Tablet) 200 mg PO BID [facility] Last Admin: 04/26/24 08:03 Dose: 200 mg Ferrous Sulfate (Ferrous Sulfate 324 Mg Tablet.Dr) 324 mg PO BID [facility] Last Admin: 04/26/24 08:09 Dose: Not Given Haloperidol Lactate (Haloperidol Lactate Oral Conc 10 Mg/5 Ml Oral.Conc) 5 mg PO Q6H PRN PRN Reason: Psychosis or severe agitation Last Admin: 04/25/24 07:52 Dose: 5 mg Haloperidol Lactate (Haloperidol Lactate 5 Mg/Ml Vial) 5 mg IM TID PRN PRN Reason: Refusal of Court PO Haldol Haloperidol Lactate (Haloperidol Lactate Oral Conc 10 Mg/5 Ml Oral.Conc) 5 mg PO TID [facility] Last Admin: 04/26/24 08:02 Dose: 5 mg Lorazepam (Lorazepam 1 Mg Tablet) 2 mg PO Q6H PRN PRN Reason: Anxiety Last Admin: 04/26/24 08:18 Dose: 2 mg Magnesium Hydroxide (Milk Of Magnesia 30 Ml Oral.Susp) 30 ml PO DAILY PRN PRN Reason: Constipation Nicotine Polacrilex (Nicotine Polacrilex 2 Mg Gum) 2 mg BUCCAL Q2H PRN PRN Reason: Nicotine Cravings Propranolol HCl (Propranolol Hcl 10 Mg Tablet) 5 mg PO TID [facility]; Protocol Last Admin: 04/26/24 08:27 Dose: Not Given Trazodone HCl (Trazodone Hcl 50 Mg Tablet) 50 mg PO BEDTIME MRX1 PRN PRN Reason: Insomnia Last Admin: 04/25/24 21:26 Dose: 50 mg Valproic Acid (Valproic Acid Liquid 250 Mg/5 Ml Solution) 750 mg PO BID [facility] Last Admin: 04/26/24 08:02 Dose: 750 mg Vitamin D (Cholecalciferol (Vitamin D3) 25 Mcg Tablet) 50 mcg PO DAILY [facility] Last Admin: 04/26/24 08:03 Dose: 50 mcg Allergies Allergies Allergy/AdvReac Type Severity Reaction Status Date / Time lithium Allergy Unknown Verified 01/13/24 18:08 Assessment & Plan Assessment & Plan (1) Schizoaffective disorder, bipolar type: Status: Acute Code(s): F25.0 - Schizoaffective disorder, bipolar type (2) Hypertension: Status: Acute Code(s): I10 - Essential (primary) hypertension (3) Diabetes mellitus: Status: Acute Code(s): E11.9 - Type 2 diabetes mellitus without complications Plan 03/23 keep same treatment 68 yo from a intermediate with chronic psychotic disorder, refusing medication , elevated bp and disorganized and agitated behavior requiring psychiatric hospitalization and treatment not competent to sign cv. 01/14 continue to follow - gave lambs warning today- and he says the console manager will be a she- still refusing medications and quite psychotic takes alot of redirection to settle him poor adls- 01/15- Refuses meds, refuses hospitalist consult-second day File for Section Seven consideration on 01/17. Provide care as he will allow. 01/16: Depakote 250 mg bid Haldol, Lorazepam, Benadryl prn Section 7 to be filed 01/17 Message left for guardian. 01/17: Section Seven filed. . Court scheduled 01/26/24 Pt continues to refuse medicaitons. He is in need of full assist with ADL's and is incontinent. Pt transferred to [facility] this afternoon. 01/19/2024 Patient pending civil commitment loud agitated would not engage in any conversation with this fiction and nonfiction writer prose non informational healing agitated verbally aggressive. Every attempt being made to get a copy of the patient's Servin order unclear why this has been so problematic. Encourage food and fluids 01/19 continue same treatment 01/21/24 Patient labile agitated intrusive close labs ordered in order to per to protect the community patient wandering into patient's rooms intrusive impulsive laying on another person's bed. Often hostile agitated posturing at times we are still pending copy of reported Servin order encourage p.o. compliance 01/22/2024 Patient did require physical hold escort him out of a room that he jumped in other patient's room and on their bed while there were in it. There was no physical harm and the patient did leave the room his markedly impulsive with poor judgment remains on close observation has intermittently taken Haldol liquid pending civil commitment treatment plan there is a question of Servin order 01/22 The patient had been more agitated. We review his Servin order and we are increasing the Abilify up to 15 mg p.o. daily and adding Haldol p.r.n. since it is in his role years order. We needed to give him some p.r.n. at 14:00. 01/23 The patient is grossly psychotic disrobing and sexually disinhibited we are starting Haldol 2 mg p.o. t.i.d. to target psychosis as per court order treatment over objection order. 01/24 The patient remains very agitated and angry disruptive so we are increasing the Haldol from 2 mg to 5 mg p.o. t.i.d. with a backup IM if the patient refused as per court order. 01/25 we have increased the Haldol but still he is very psychotic and restless. Today he refused his blood work. He needed to be physically held twice. 01/26 the patient remains agitated at times but his last IM backup was yesterday. We are going to increase Abilify up to 20 mg daily to target mood lability and psychosis. 01/29/2024: Increase frequency of prn doses from tid to prn q 6mrs. Poor insight and unable to care for self 02/08 pt has not take any of mood stabilizer. continues to have poor sleep, intrusive and combative requiring IM medications, increase haldol 10mg po TID, back up IM. Will add ativan 1mg po TID, also back up IM. Labs show elevated CK 2300, BUN 20, Cr 1.80, unclear baseline Cr as he does have CKD. Discussed with hospitalist Dr. Gama, to give IV fluids and monitor labs tomorrow. LFTs also elevated suspect this is secondary to elevation in CK and should trend down as CK goes down. 02/09 still agitated, creatinine and CPK slightly high as yesterday, he removed his IV line there is no big difference with IV hydration. We are changing his community role years to have more options since it is not working Abilify and Haldol 02/10 3 chemical restraints yesterday. appears more combative, and somewhat more confused. Will decrease amount of benzo and antihistamine given to him as it seems to be backfiring. did discuss with ICU attending, Dr. Whiteside possibility of transferring there but they would like us to try IV depakote and exhaust all resources prior to considering transfer. Pt did take depakote springkle 1000mg with apple sauce with much encourage. 02/11 continue tx. 02/12 continue same treatment 01/14 continue with Abilify and other court order medications, we are Namenda and the court order. 02/14 Team report improvement today with pt having greater comfort and less agitation. [id number] the staff reported that the patient had been less violent in the last 24 hours 02/16 continue tx. will check depakote and ammonia on 02/17 in AM. 02/17 continue regime and plan of care 02/26/2024: Continue current regimen as per court order 03/03 continue tx. lactulose for now as we don't have new ammonia level, but will try to chack labs. 03/16- continue medications, held clonidine patch for today due to low BP. repeat labs. 03/17-continue plan of care 03/18- continue tx 03/19 continue same treatment 03/20 waiting for CBC, basic metabolic panel and ammonia level. Today he nearly choked with a grape. We are going to change his diet to chopped 03/21 patient had a fall and he was assessed. No injuries as per CT scan of head and pelvis. Again he refused again his blood work vital signs within normal limits. 03/22 keep same treatment 03/23 keep same treatment 03 24 24 Continue plan of care Depakote Tegretol Haldol carbamazepine 03/25/2024 Repeat swallowing study ordered he is already on ground diet consider lowering Haldol versus Cogentin generally try to avoid older man 03/26 lowered Haldol to 7.5 p.o. b.i.d. 03/27 start Abilify Maintena 400 IM, later on we stopped it since he was over-sedated. 03/28 monitor vital signs and we will order blood work for tomorrow morning. 03/29 keep same treatment. We are deferring Abilify Maintena since the patient is still sedated and looks slightly delirious. He has refused blood work 03/31 continue current tx. less combative but no improvement in mentation. grossly disorganized and non sensical. 04/01: court ordered meds- team reviewing and optimizing same. 04/02 continue tx. 04/03 keep same treatment, so far he had been more compliant with some of the medications in the last 3 days. 04/04 start Abilify Maintena 400 mg IM 04/05 keep Haldol as prescribed 04/06 keep same treatment 04/08/24 continue current plan, regime 04/09/24 continue plan, CAT pending 04/10 continue same treatment 04/11 keep same treatment 04/12 lowering Haldol to 5 mg p.o. b.i.d. since the patient is over-sedated. 04/13 keep same treatment 04/14 agitated today, jumping around, dive off bed, crawling on all 4's, naked; took meds; now sleeping -floridly psychotic and fiction and nonfiction writer prose thought best to let pt sleep 04/16 keep same treatment 04/17 Abilify Maintena 400 mg today and scheduled next for 30 days. 04/18 change Haldol to 5 mg p.o. t.i.d. with backup IM if he refuses p.o. 04/19 keep same treatment. 04/20 keep same treatment 04/21: verbally aggressive, restless. continue 1:1 and current Tx plan. 04/22: asleep, not easily rousable. restless and irritable last gwen, slept only 4 hours overnight. continue current mgmt. 04/23 add Cogentin 0.5 p.o. b.i.d. small improvement on his psychosis 04/24 continue with same treatment. 04/25 the patient fell again. Blood pressure had been okay even though that he is noncompliant with clonidine patch. We discussed the case with the medical team and they agreed that we can discontinue since he had been noncompliant of clonidine patch since March 09. Starting on propranolol 5 mg p.o. t.i.d. to target akathisia. 04/26 continue tx. Reason for continued inpatient stay Substantial Risk for: inability to function Time Spent With Patient Time: Total time managing care of this patient today ____ minutes.
[2024-04-26 20:00] VITALS: PULSE 62; RESP 16
[2024-04-26 20:51] VITALS: PULSE 62
[2024-04-26] MEDS: traZODone HCL 50 MG TABLET PO (20:51)
[2024-04-26] MEDS: Propranolol HCL 10 MG TABLET 5 MG PO (20:51)
[2024-04-27] VITALS: PULSE 62
[2024-04-27] MEDS: Haloperidol Lactate Oral Conc 10 MG/5 ML ORAL.CONC 5 MG PO ×4 (01:36→21:23)
[2024-04-27] MEDS: traZODone HCL 50 MG TABLET PO (01:37)
[2024-04-27] MEDS: LORazepam 1 MG TABLET 2 MG PO ×2 (05:25→21:21)
[2024-04-27 08:17] VITALS: BP 116/61; PULSE 60; RESP 20; TEMP 36.1; O2SAT 100
[2024-04-27] MEDS: carBAMazepine 200 MG TABLET PO ×2 (08:21→21:22)
[2024-04-27] MEDS: Benztropine Mesylate 0.5 MG TABLET PO ×2 (08:21→21:22)
[2024-04-27] MEDS: Propranolol HCL 10 MG TABLET 5 MG PO (08:21)
[2024-04-27] MEDS: Cholecalciferol (Vitamin D3) 25 MCG TABLET 50 MCG PO (08:21)
[2024-04-27] MEDS: Valproic Acid Liquid 250 MG/5 ML SOLUTION 750 MG PO ×2 (08:23→21:23)
[2024-04-27] MEDS: Ferrous Sulfate 324 MG TABLET.DR PO (08:37)
[2024-04-27 15:07] VITALS: BP 110/70; PULSE 55; RESP 20; TEMP 36.9; O2SAT 100
--- NOTE | 2024-04-27 19:02 | P.PNPSI_ITS ---
Subjective Subjective Date of Service: 04/27/24 Reason For Visit: Schizoaffective disorder Subjective Notes: Section 7 Interim History: Pt slept 6hrs. He continues to present as disorganized, purpuseless behaviors, unable to follow commands. He does initially say hi when this automobile service writer asks him how is he doing but after that his speech is mostly non sensical. labs obtain- monitoring of thrombocytopenia, and neutropenia, suspect s/s to mood stabilizer. continues on one to one. pending depakote level, ammonia Mental Status Exam Mental Status Exam Narrative: pt in bed, attempting to grab things that are not there, moving arms up and down, as well as legs, attempting at times to get out of bed, disorganized to do so even when giving step by step direction to safely get out of bed. attention is poor. most speech is non sensical Diagnostics Vital Signs (24Hr): Vital Signs - 24 hr 04/26/24 20:00 04/26/24 20:51 04/27/24 00:00 Temperature Pulse Rate 62 62 62 Respiratory Rate 16 Blood Pressure Pulse Oximetry Oxygen Delivery Method 04/27/24 08:17 04/27/24 15:07 Temperature 97.0 F 98.4 F Pulse Rate 60 55 Respiratory Rate 20 20 Blood Pressure 116/61 110/70 Pulse Oximetry 100 100 Oxygen Delivery Method Room Air Room Air BMI result Body Mass Index 25.1 Labs 03/30/24 08:49 04/28/24 08:52 Imaging Radiology Impressions: ITS Impressions Chest X-Ray 03/20/24 08:33 IMPRESSION: Extremely limited exam. Only lateral views could be obtained. Suspect basilar airspace opacity, possibly pneumonia. Electronically signed by: Fortino Dumont MD 03/20/2024 10:10 AM EST RP Cervical Spine CT 03/21/24 11:18 IMPRESSION: 1. Allowing for suboptimal positioning, there is no CT evidence of acute cervical spine fracture or injury. 2. Degenerative changes with bulky ventral osteophytes spanning C4-C6, appearance in keeping with DISH. Electronically signed by: Fortino Dumont MD 03/21/2024 12:01 PM EST RP Head CT 03/21/24 11:18 IMPRESSION: 1. No acute intracranial abnormality. No acute fractures seen. 2. Stable chronic findings as discussed. Electronically signed by: Fortino Dumont MD 03/21/2024 11:54 AM EST RP Pelvis CT 03/21/24 11:18 IMPRESSION: 1. No acute bony abnormalities. No fractures. 2. Constipation with a large amount of stool in the rectum and sigmoid colon. 3. Mild thickening of the urinary bladder wall despite underdistention, nonspecific. Differential includes the detrusor hypertrophy, neurogenic bladder, or possibly cystitis. Electronically signed by: Fortino Dumont MD 03/21/2024 12:09 PM EST RP Head CT 03/28/24 09:37 IMPRESSION: No acute fracture, bony calvarium. No acute intracranial hemorrhage. Small vessel occlusive disease. Bifrontal bitemporal lobe atrophy. Electronically signed by: Juan Corrigan MD 03/28/2024 10:19 AM EST RP Head CT 04/25/24 12:22 IMPRESSION: No acute intracranial process seen. Electronically signed by: Ritchie Marte MD 04/25/2024 01:01 PM EST RP Medications Medications Current Medications Acetaminophen (Acetaminophen 325 Mg Tablet) 650 mg PO Q6H PRN PRN Reason: Headache/Pain Mild Scale (1-3) Last Admin: 01/17/24 23:53 Dose: 325 mg Al Hydroxide/Mg Hydroxide (Magnesium Hydrox/Alum Hydrox 30 Ml Oral.Susp) 30 ml PO Q6H PRN PRN Reason: Heartburn/Nausea Aripiprazole (Aripiprazole Er 400 Mg Suser.Syr) 400 mg IM Q30D [facility] Aspirin (Aspirin 81 Mg Tab.Chew) 81 mg PO DAILY [facility] Last Admin: 04/23/24 08:34 Dose: 81 mg Benztropine Mesylate (Benztropine Mesylate 0.5 Mg Tablet) 0.5 mg PO BID [facility] Last Admin: 04/27/24 08:21 Dose: 0.5 mg Carbamazepine (Carbamazepine 200 Mg Tablet) 200 mg PO BID [facility] Last Admin: 04/27/24 08:21 Dose: 200 mg Ferrous Sulfate (Ferrous Sulfate 324 Mg Tablet.Dr) 324 mg PO BID [facility] Last Admin: 04/27/24 08:37 Dose: 324 mg Haloperidol Lactate (Haloperidol Lactate Oral Conc 10 Mg/5 Ml Oral.Conc) 5 mg PO Q6H PRN PRN Reason: Psychosis or severe agitation Last Admin: 04/27/24 01:36 Dose: 5 mg Haloperidol Lactate (Haloperidol Lactate 5 Mg/Ml Vial) 5 mg IM TID PRN PRN Reason: Refusal of Court PO Haldol Haloperidol Lactate (Haloperidol Lactate Oral Conc 10 Mg/5 Ml Oral.Conc) 5 mg PO TID [facility] Last Admin: 04/27/24 15:10 Dose: 5 mg Lorazepam (Lorazepam 1 Mg Tablet) 2 mg PO Q6H PRN PRN Reason: Anxiety Last Admin: 04/27/24 05:25 Dose: 2 mg Magnesium Hydroxide (Milk Of Magnesia 30 Ml Oral.Susp) 30 ml PO DAILY PRN PRN Reason: Constipation Nicotine Polacrilex (Nicotine Polacrilex 2 Mg Gum) 2 mg BUCCAL Q2H PRN PRN Reason: Nicotine Cravings Propranolol HCl (Propranolol Hcl 10 Mg Tablet) 5 mg PO TID [facility]; Protocol Last Admin: 04/27/24 15:09 Dose: Not Given Trazodone HCl (Trazodone Hcl 50 Mg Tablet) 50 mg PO BEDTIME MRX1 PRN PRN Reason: Insomnia Last Admin: 04/27/24 01:37 Dose: 50 mg Valproic Acid (Valproic Acid Liquid 250 Mg/5 Ml Solution) 750 mg PO BID [facility] Last Admin: 04/27/24 08:23 Dose: 750 mg Vitamin D (Cholecalciferol (Vitamin D3) 25 Mcg Tablet) 50 mcg PO DAILY [facility] Last Admin: 04/27/24 08:21 Dose: 50 mcg Allergies Allergies Allergy/AdvReac Type Severity Reaction Status Date / Time lithium Allergy Unknown Verified 01/13/24 18:08 Assessment & Plan Assessment & Plan (1) Schizoaffective disorder, bipolar type: Status: Acute Code(s): F25.0 - Schizoaffective disorder, bipolar type (2) Hypertension: Status: Acute Code(s): I10 - Essential (primary) hypertension Assessment and Plan: VS currently show low BP probably due to dehydration (3) Diabetes mellitus: Status: Acute Code(s): E11.9 - Type 2 diabetes mellitus without complications Assessment and Plan: Not on any medications, will check A1C (4) Neutropenia, drug-induced: Status: Acute Code(s): D70.2 - Other drug-induced agranulocytosis Assessment and Plan: ANC on 04/27/2024 1000 (5) Drug-induced thrombocytopenia: Status: Acute Code(s): D69.59 - Other secondary thrombocytopenia; T50.905A - Adverse effect of unspecified drugs, medicaments and biological substances, initial encounter Assessment and Plan: Plt on 02/09/2024 were 196, on 03/30/2023 down to 88L suspect related to depakote, may need to consult hematology if plan to continue depakote Plan 03/23 keep same treatment 68 yo from a halfway with chronic psychotic disorder, refusing medication , elevated bp and disorganized and agitated behavior requiring psychiatric hospitalization and treatment not competent to sign cv. 01/14 continue to follow - gave lambs warning today- and he says the stone trimmer will be a she- still refusing medications and quite psychotic takes alot of redirection to settle him poor adls- 01/15- Refuses meds, refuses hospitalist consult-second day File for Section Seven consideration on 01/17. Provide care as he will allow. 01/16: Depakote 250 mg bid Haldol, Lorazepam, Benadryl prn Section 7 to be filed 01/17 Message left for guardian. 01/17: Section Seven filed. . Court scheduled 01/26/24 Pt continues to refuse medicaitons. He is in need of full assist with ADL's and is incontinent. Pt transferred to [facility] this afternoon. 01/19/2024 Patient pending civil commitment loud agitated would not engage in any conversation with this automobile service writer non informational healing agitated verbally aggressive. Every attempt being made to get a copy of the patient's Servin order unclear why this has been so problematic. Encourage food and fluids 01/19 continue same treatment 01/21/24 Patient labile agitated intrusive close labs ordered in order to per to protect the community patient wandering into patient's rooms intrusive impulsive laying on another person's bed. Often hostile agitated posturing at times we are still pending copy of reported Servin order encourage p.o. compliance 01/22/2024 Patient did require physical hold escort him out of a room that he jumped in other patient's room and on their bed while there were in it. There was no physical harm and the patient did leave the room his markedly impulsive with poor judgment remains on close observation has intermittently taken Haldol liquid pending civil commitment treatment plan there is a question of Servin order 01/22 The patient had been more agitated. We review his Servin order and we are increasing the Abilify up to 15 mg p.o. daily and adding Haldol p.r.n. since it is in his role years order. We needed to give him some p.r.n. at 14:00. 01/23 The patient is grossly psychotic disrobing and sexually disinhibited we are starting Haldol 2 mg p.o. t.i.d. to target psychosis as per court order treatment over objection order. 01/24 The patient remains very agitated and angry disruptive so we are increasing the Haldol from 2 mg to 5 mg p.o. t.i.d. with a backup IM if the patient refused as per court order. 01/25 we have increased the Haldol but still he is very psychotic and restless. Today he refused his blood work. He needed to be physically held twice. 01/26 the patient remains agitated at times but his last IM backup was yesterday. We are going to increase Abilify up to 20 mg daily to target mood lability and psychosis. 01/29/2024: Increase frequency of prn doses from tid to prn q 6mrs. Poor insight and unable to care for self 02/08 pt has not take any of mood stabilizer. continues to have poor sleep, intrusive and combative requiring IM medications, increase haldol 10mg po TID, back up IM. Will add ativan 1mg po TID, also back up IM. Labs show elevated CK 2300, BUN 20, Cr 1.80, unclear baseline Cr as he does have CKD. Discussed with hospitalist Dr. Gama, to give IV fluids and monitor labs tomorrow. LFTs also elevated suspect this is secondary to elevation in CK and should trend down as CK goes down. 02/09 still agitated, creatinine and CPK slightly high as yesterday, he removed his IV line there is no big difference with IV hydration. We are changing his community role years to have more options since it is not working Abilify and Haldol 02/10 3 chemical restraints yesterday. appears more combative, and somewhat more confused. Will decrease amount of benzo and antihistamine given to him as it seems to be backfiring. did discuss with ICU attending, Dr. Whiteside possibility of transferring there but they would like us to try IV depakote and exhaust all resources prior to considering transfer. Pt did take depakote springkle 1000mg with apple sauce with much encourage. 02/11 continue tx. 02/12 continue same treatment 01/14 continue with Abilify and other court order medications, we are Namenda and the court order. 02/14 Team report improvement today with pt having greater comfort and less agitation. [id number] the staff reported that the patient had been less violent in the last 24 hours 02/16 continue tx. will check depakote and ammonia on 02/17 in AM. 02/17 continue regime and plan of care 02/26/2024: Continue current regimen as per court order 03/03 continue tx. lactulose for now as we don't have new ammonia level, but will try to chack labs. 03/16- continue medications, held clonidine patch for today due to low BP. repeat labs. 03/17-continue plan of care 03/18- continue tx 03/19 continue same treatment 03/20 waiting for CBC, basic metabolic panel and ammonia level. Today he nearly choked with a grape. We are going to change his diet to chopped 03/21 patient had a fall and he was assessed. No injuries as per CT scan of head and pelvis. Again he refused again his blood work vital signs within normal limits. 03/22 keep same treatment 03/23 keep same treatment 03 24 24 Continue plan of care Depakote Tegretol Haldol carbamazepine 03/25/2024 Repeat swallowing study ordered he is already on ground diet consider lowering Haldol versus Cogentin generally try to avoid older man 03/26 lowered Haldol to 7.5 p.o. b.i.d. 03/27 start Abilify Maintena 400 IM, later on we stopped it since he was over- sedated. 03/28 monitor vital signs and we will order blood work for tomorrow morning. 03/29 keep same treatment. We are deferring Abilify Maintena since the patient is still sedated and looks slightly delirious. He has refused blood work 03/31 continue current tx. less combative but no improvement in mentation. grossly disorganized and non sensical. 04/01: court ordered meds- team reviewing and optimizing same. 04/02 continue tx. 04/03 keep same treatment, so far he had been more compliant with some of the medications in the last 3 days. 04/04 start Abilify Maintena 400 mg IM 04/05 keep Haldol as prescribed 04/06 keep same treatment 04/08/24 continue current plan, regime 04/09/24 continue plan, CAT pending 04/10 continue same treatment 04/11 keep same treatment 04/12 lowering Haldol to 5 mg p.o. b.i.d. since the patient is over-sedated. 04/13 keep same treatment 04/14 agitated today, jumping around, dive off bed, crawling on all 4's, naked; took meds; now sleeping -floridly psychotic and automobile service writer thought best to let pt sleep 04/16 keep same treatment 04/17 Abilify Maintena 400 mg today and scheduled next for 30 days. 04/18 change Haldol to 5 mg p.o. t.i.d. with backup IM if he refuses p.o. 04/19 keep same treatment. 04/20 keep same treatment 04/21: verbally aggressive, restless. continue 1:1 and current Tx plan. 04/22: asleep, not easily rousable. restless and irritable last gwen, slept only 4 hours overnight. continue current mgmt. 04/23 add Cogentin 0.5 p.o. b.i.d. small improvement on his psychosis 04/24 continue with same treatment. 04/25 the patient fell again. Blood pressure had been okay even though that he is noncompliant with clonidine patch. We discussed the case with the medical team and they agreed that we can discontinue since he had been noncompliant of clonidine patch since March 09. Starting on propranolol 5 mg p.o. t.i.d. to target akathisia. 04/26 continue tx. 04/27 reviewing labs- neutropenia and thrombocytopenia worsening Plt 88, ANC 1000, consult to mohamud/onc as plan to continue depakote given that it has been very difficult to stabilize patient. Also, pt with hx of DM, not on any medications. Will obtain A1c. continues to present disorganized, delirium-like presentation. VS are stable, BP on lower side, no need for additional medication for BP. Reason for continued inpatient stay Substantial Risk for: inability to function Time Spent With Patient Time: Total time managing care of this patient today ____ minutes.
[2024-04-27 20:00] VITALS: BP 109/75; PULSE 58; RESP 16; TEMP 36.6; O2SAT 98
[2024-04-28] MEDS: LORazepam 1 MG TABLET 2 MG PO ×3 (03:59→21:01)
[2024-04-28] MEDS: Haloperidol Lactate Oral Conc 10 MG/5 ML ORAL.CONC 5 MG PO ×4 (04:00→21:03)
[2024-04-28] MEDS: Valproic Acid Liquid 250 MG/5 ML SOLUTION 750 MG PO ×2 (07:44→21:04)
[2024-04-28 08:00] VITALS: RESP 16; TEMP 36.6
[2024-04-28 09:14] LABS: Alanine Aminotransferase 12 U/L (0-40); Albumin Level 3.3 g/dL (3.5-5.0); Alkaline Phosphatase 113 U/L (39-117); Anion Gap 12 (12-20); Aspartate Amino Transferase 19 U/L (5-37); Bilirubin Total 0.2 mg/dL (0.0-1.0); Blood Urea Nitrogen 30 mg/dL (9-16); Calcium 8.6 mg/dL (8.4-10.2); Carbon Dioxide 27 mmol/L (22-29); Chloride 106 mmol/L (96-108); Creatinine Clr Calc Pharmacy 56.7; Estimated Glomerular Filt Rate 55; Glucose Random 108 mg/dL (60-115); Potassium 4.8 mmol/L (3.3-5.1); Sodium 140 mmol/L (135-145); Total Protein 6.2 g/dL (6.5-8.0)
[2024-04-28 09:16] LABS: Alanine Aminotransferase 13 U/L (0-40); Albumin Level 3.4 g/dL (3.5-5.0); Alkaline Phosphatase 114 U/L (39-117); Anion Gap 11 (12-20); Aspartate Amino Transferase 17 U/L (5-37); Bilirubin Direct < 0.2 mg/dL (0.0-0.5); Bilirubin Total 0.2 mg/dL (0.0-1.0); Blood Urea Nitrogen 29 mg/dL (9-16); Calcium 8.6 mg/dL (8.4-10.2); Carbon Dioxide 27 mmol/L (22-29); Chloride 106 mmol/L (96-108); Creatinine Clr Calc Pharmacy 56.7; Estimated Glomerular Filt Rate 55; Glucose Random 107 mg/dL (60-115); Magnesium 1.9 mg/dL (1.6-2.6); Potassium 4.6 mmol/L (3.3-5.1); Sodium 139 mmol/L (135-145); Total Protein 6.2 g/dL (6.5-8.0)
[2024-04-28 09:17] LABS: Valproate 100.8 mcg/mL (50.0-100.0)
--- NOTE | 2024-04-28 09:23 | PC.NURSE ---
VPA level 100.8- Rebecca Abraham NP notified.
--- NOTE | 2024-04-28 09:39 | PC.NURSE ---
Refused vital signs and would not cooperate with orthostatic vital signs. Only took Haldol and Melany Abraham NP notified.
[2024-04-28 11:31] LABS: Ammonia 34 umol/L (13-55)
[2024-04-28 11:36] LABS: Estimated Average Glucose 123 mg/dL; Hemoglobin A1C 114.9589 umol/L; Hemoglobin A1c % 5.9 % (<6.0); Total Hemoglobin (HGBA1C) 2826.7377 umol/L
--- NOTE | 2024-04-28 12:57 | PM.HEMONCCN ---
Subjective - Subjective Chief complaint: Consult for: Leukopenia. Thrombocytopenia. Patient: new to practice Consult date: 04/28/24 Requesting Physician: Kristen. Primary Care Provider: Unknown Physician Family Provider: Unknown Physician. Medical Summary: DIAGNOSIS: 1. LEUCOPENIA. 2. THROMBOCYTOPENIA. Correctional Supervising Cook Utilized?: No - Georgian Speaking HPI - Consult Narrative Reason for consult: Consult for: 1. Leukopenia. 2. Thrombocytopenia. Narrative: Bret Del Real is a 68 year old gentleman who lives in a skilled nursing was transferred to [facility] from another ER. Was seen on 04/25 by hospitalist:Pt long hx of erratic and difficult to control behavior, difficulty walking, and multiple falls on the unit. Pt was bending over trying to put on his shoes when he lost his balance, fell backward, and struck the back of his head on the bed railing. CT of head negative for acute intracranial process. Pt is resting comfortably in bed. Given patient's hx of agitation let pt rest for now. No noticeable hematoma or abrasion noted on the back of his head. Nontender. HPI: Pt had stopped taking his medication at skilled nursing and had become increasingly agitated- to the point of leave home and then running into a wall - breaking his nose- Pt refusing to be cooperative with interview, first had blanket over him and then was harrasing roommate standing by his bed staring at him- disrobed and walked around naked. Now in obs room- dressed and refusing to talk to me except re wanting black coffee with sugar- doesn't care that he is diabetic- when pointed out. Past Psychiatric History: Extensive likely since living in skilled nursing- no paige order since 2021. No guardian Medical Evaluation Reviewed: 1. Seen at another ER where he was seen for head injury from running into wall. 2.Cardio consult who said [facility] waves were likely wnl for this patient? QTC prolonged as expected maybe if had been on meds for 450 3. Schizoaffective bipoolar type 4. DM2 HTN. 5. CKD Family History: unknown. A brother also with psychiatric illness now . Social History: Pt lives in skilled nursing. Substance History: unknown. [facility] Social History: Social History Living Situation History: Household Members: Unknown / Unable to asses Housing: Unknown / Unable to asses Do you presently have visiting nurse or other home services: Do you presently have visiting nurse or other home services comment: unknown/ unable to assess Alcohol History Details: 1. How often do you have a drink containing alcohol?: a. Never 3. How often do you have six or more drinks on one occasion?: a. Never AUDIT-C Alcohol total score: 0 Last Drank Other:: denies Currently Displaying Signs/Symptoms of Alcohol Withdrawal: No Tobacco History: Patient Tobacco Use Status: Never used Tobacco Smoked in Last 30 Days: No Patient Interested in Nicotine Replacement: No Patient Given Instructions on How to Stop Smoking: Patient Given Instructions on How to Stop Smoking comment: not needed. He denies that he is a tobacco smoker, past or present. Second Hand Smoke Exposure: No Substance Use History: Currently Displaying Signs/Symptoms of Drug Intoxication Withdrawal: No Any prior treatment program specific to substance use: No Any prior treatment program specific to substance use comment: unknown Domestic Abuse History: Have you been hit, kicked, punched, or otherwise hurt by someone within the past year? If so, by whom?: Have you been hit, kicked, punched, or otherwise hurt by someone within the past year? If so, by whom? comment: refusing to respond Do you feel safe in your current relationship?: No Current Relationship Is there a partner from a previous relationship who is making you feel unsafe now?: No Are you made to feel afraid or neglected: No Advance Directives: Advance Directives: No Advance Directives Information Provided: No Homicidal Assessment: Do you have thoughts of harming others: None Do you have a plan to hurt others: No Plan Nutrition Assessment: Recently lost weight without trying: Unsure How much weight loss: Unsure Eating poorly because of decreased appetite: No Nutrition screen score: 4 Nutrition Risks: No Nutritional Risk Poor oral hygiene: Poor oral hygiene comment: unknown Home Medications and Allergies Current Medications: Current Medications Acetaminophen (Acetaminophen 325 Mg Tablet) 650 mg PO Q6H PRN PRN Reason: Headache/Pain Mild Scale (1-3) Last Admin: 01/17/24 23:53 Dose: 325 mg Al Hydroxide/Mg Hydroxide (Magnesium Hydrox/Alum Hydrox 30 Ml Oral.Susp) 30 ml PO Q6H PRN PRN Reason: Heartburn/Nausea Aripiprazole (Aripiprazole Er 400 Mg Suser.Syr) 400 mg IM Q30D KASIA Aspirin (Aspirin 81 Mg Tab.Chew) 81 mg PO DAILY KASIA Last Admin: 04/23/24 08:34 Dose: 81 mg Benztropine Mesylate (Benztropine Mesylate 0.5 Mg Tablet) 0.5 mg PO BID [facility] Last Admin: 04/28/24 08:14 Dose: Not Given Carbamazepine (Carbamazepine 200 Mg Tablet) 200 mg PO BID [facility] Last Admin: 04/28/24 08:14 Dose: Not Given Ferrous Sulfate (Ferrous Sulfate 324 Mg Tablet.Dr) 324 mg PO BID [facility] Last Admin: 04/28/24 08:14 Dose: Not Given Haloperidol Lactate (Haloperidol Lactate Oral Conc 10 Mg/5 Ml Oral.Conc) 5 mg PO Q6H PRN PRN Reason: Psychosis or severe agitation Last Admin: 04/28/24 11:05 Dose: 5 mg Haloperidol Lactate (Haloperidol Lactate 5 Mg/Ml Vial) 5 mg IM TID PRN PRN Reason: Refusal of Court PO Haldol Haloperidol Lactate (Haloperidol Lactate Oral Conc 10 Mg/5 Ml Oral.Conc) 5 mg PO TID [facility] Last Admin: 04/28/24 07:45 Dose: 5 mg Lorazepam (Lorazepam 1 Mg Tablet) 2 mg PO Q6H PRN PRN Reason: Anxiety Last Admin: 04/28/24 11:05 Dose: 2 mg Magnesium Hydroxide (Milk Of Magnesia 30 Ml Oral.Susp) 30 ml PO DAILY PRN PRN Reason: Constipation Nicotine Polacrilex (Nicotine Polacrilex 2 Mg Gum) 2 mg BUCCAL Q2H PRN PRN Reason: Nicotine Cravings Propranolol HCl (Propranolol Hcl 10 Mg Tablet) 5 mg PO TID [facility]; Protocol Last Admin: 04/28/24 08:14 Dose: Not Given Trazodone HCl (Trazodone Hcl 50 Mg Tablet) 50 mg PO BEDTIME PRN PRN Reason: Insomnia Valproic Acid (Valproic Acid Liquid 250 Mg/5 Ml Solution) 750 mg PO BID [facility] Last Admin: 04/28/24 07:44 Dose: 750 mg Vitamin D (Cholecalciferol (Vitamin D3) 25 Mcg Tablet) 50 mcg PO DAILY [facility] Last Admin: 04/28/24 08:14 Dose: Not Given Home Medications ?Medication ?Instructions ?Recorded ?Confirmed ?Type amlodipine 10 mg tablet 10 mg PO DAILY 01/13/24 01/13/24 History aripiprazole 10 mg tablet 10 mg PO DAILY 01/13/24 01/13/24 History atorvastatin 40 mg tablet 40 mg PO DAILY 01/13/24 01/13/24 History deutetrabenazine 36 mg 36 mg PO DAILY 01/13/24 01/13/24 History tablet,extended release 24 hr (Austedo XR) gabapentin 300 mg capsule 300 mg PO TID 01/13/24 01/13/24 History carbamazepine 100 mg/5 mL oral 400 mg PO BID 01/14/24 01/14/24 History suspension empagliflozin 10 mg tablet 10 mg PO DAILY 01/14/24 01/14/24 History (Jardiance) glipizide 5 mg tablet 5 mg PO BID 01/14/24 01/14/24 History haloperidol lactate 2 mg/mL oral 15 mg PO BID 01/14/24 01/14/24 History concentrate levothyroxine 25 mcg tablet 25 mcg PO DAILY 01/14/24 01/14/24 History lisinopril 20 mg tablet 20 mg PO DAILY 01/14/24 01/14/24 History valproic acid (as sodium salt) 250 500 mg PO BID 01/14/24 01/14/24 History mg/5 mL oral solution Allergies Allergy/AdvReac Type Severity Reaction Status Date / Time lithium Allergy Unknown Verified 01/13/24 18:08 Physical Exam Vital signs: Vital Signs Temp 97.8 F 04/28/24 08:00 Pulse 58 04/27/24 20:00 Resp 16 04/28/24 08:00 BP 109/75 04/27/24 20:00 Pulse Ox 98 04/27/24 20:00 O2 Del Method Room Air 04/27/24 20:00 Weight 81.647 kg Hem/Onc Consult Result - Labs CBC & Chem 7: 05/02/24 10:59 04/28/24 08:52 Labs: BMP 04/28/24 04/28/24 08:51 08:52 Sodium 139 140 Potassium 4.6 4.8 Chloride 106 106 Carbon Dioxide 27 27 BUN 29 H 30 H Creatinine 1.29 1.29 Calcium 8.6 D 8.6 Liver Function 04/28/24 04/28/24 Range/Units 08:51 08:52 Total Bilirubin 0.2 0.2 (0.0-1.0) mg/dL Direct Bilirubin < 0.2 (0.0-0.5) mg/dL AST 17 19 (5-37) U/L ALT 13 12 (0-40) U/L Alkaline Phosphatase 114 113 (39-117) U/L Albumin 3.4 L 3.3 L (3.5-5.0) g/dL Assessment and Plan Patient Active problem list reviewed?: Yes (1) Pancytopenia Status: Acute Assessment and plan: 68-year-old gentleman with a long history of schizophrenia, bizarre behavior, self-harm. Noted to be Pancytopenic: CBC from 03/30/2024: WBC 3.3, HGB 11, HCT 33, PLT 88. LFTs: 0.2/113/19/. Magnesium: 1.9. DIFFERENTIAL DIAGNOSIS: 1. MEDICATIONS RELATED: He is on several psychotropic medications: Carbamazepine. Depakote. Benztropine. Haldol. Abilify. The two that most commonly implicated include Depakote and carbamazepine. 2. VIRAL INFECTION: A chronic infection like hepatitis B or C versus HIV. 3. COLLAGEN VASCULAR DISORDER: Rheumatoid arthritis versus SLE. 4. UNDERLYING MYELO INFILTRATIVE DISORDER: MDS versus lymphoma versus multiple myeloma. Less likely. PLAN: Will proceed with further evaluation. Will get an updated CBC with manual differential. Check Hepatitis and HIV serologies: Hep B: [place], Hep C negative. HIV: Negative. Check ESR: 7, RA: <13 and JAYLA. Check LDH:179 and in SIEP. Meanwhile if any adjustments in his medications can be made, to substitute the above mentioned medications. If not, then can monitor his CBC carefully. Thank you for the consult, I will follow along with you, CC: Dr. Delroy Long. - Time Spent With Patient Time Spent with Patient (in minutes): 30
--- NOTE | 2024-04-28 18:17 | P.PNPSI_ITS ---
Subjective Subjective Date of Service: 04/28/24 Reason For Visit: Schizoaffective disorder Subjective Notes: Section 7 Interim History: Pt slept 6hrs. He continues to present as disorganized, purposeless behaviors, unable to follow commands. He does initially say hi when this sheet writer asks him how is he doing but after that his speech is mostly non sensical. labs obtain- monitoring of thrombocytopenia, and neutropenia, suspect s/s to mood stabilizer. continues on one to one. pending depakote level, ammonia Review of Systems Review of Systems s/p fall Yes Unobtainable due to mental status Mental Status Exam Mental Status Exam Narrative: pt in bed, attempting to grab things that are not there, moving arms up and down, as well as legs, attempting at times to get out of bed, disorganized to do so even when giving step by step direction to safely get out of bed. attention is poor. most speech is non sensical Diagnostics Vital Signs (24Hr): Vital Signs - 24 hr 04/27/24 20:00 04/28/24 08:00 Temperature 97.9 F 97.8 F Pulse Rate 58 Respiratory Rate 16 16 Blood Pressure 109/75 Pulse Oximetry 98 Oxygen Delivery Method Room Air BMI result Body Mass Index 25.1 Labs 03/30/24 08:49 04/28/24 08:52 Labs: Laboratory Results - last 48 hr 04/28/24 04/28/24 04/28/24 08:51 08:52 11:22 Sodium 139 140 Potassium 4.6 4.8 Chloride 106 106 Carbon Dioxide 27 27 Anion Gap 11 L 12 BUN 29 H 30 H Creatinine 1.29 1.29 Estim Creat Clear Calc 56.7 56.7 Estimated GFR 55 55 Random Glucose 107 108 Estimat Average Glucose 123 Hemoglobin A1c % 5.9 Calcium 8.6 D 8.6 Magnesium 1.9 Total Bilirubin 0.2 0.2 Direct Bilirubin < 0.2 AST 17 19 ALT 13 12 Alkaline Phosphatase 114 113 Ammonia 34 Total Protein 6.2 L 6.2 L Albumin 3.4 L 3.3 L Valproic Acid 100.8 H Carbamazepine 5.0 Imaging Radiology Impressions: ITS Impressions Chest X-Ray 03/20/24 08:33 IMPRESSION: Extremely limited exam. Only lateral views could be obtained. Suspect basilar airspace opacity, possibly pneumonia. Electronically signed by: Fortino Dumont MD 03/20/2024 10:10 AM EST RP Cervical Spine CT 03/21/24 11:18 IMPRESSION: 1. Allowing for suboptimal positioning, there is no CT evidence of acute cervical spine fracture or injury. 2. Degenerative changes with bulky ventral osteophytes spanning C4-C6, appearance in keeping with DISH. Electronically signed by: Fortino Dumont MD 03/21/2024 12:01 PM EST RP Head CT 03/21/24 11:18 IMPRESSION: 1. No acute intracranial abnormality. No acute fractures seen. 2. Stable chronic findings as discussed. Electronically signed by: Fortino Dumont MD 03/21/2024 11:54 AM EST RP Pelvis CT 03/21/24 11:18 IMPRESSION: 1. No acute bony abnormalities. No fractures. 2. Constipation with a large amount of stool in the rectum and sigmoid colon. 3. Mild thickening of the urinary bladder wall despite underdistention, nonspecific. Differential includes the detrusor hypertrophy, neurogenic bladder, or possibly cystitis. Electronically signed by: Fortino Dumont MD 03/21/2024 12:09 PM EST RP Head CT 03/28/24 09:37 IMPRESSION: No acute fracture, bony calvarium. No acute intracranial hemorrhage. Small vessel occlusive disease. Bifrontal bitemporal lobe atrophy. Electronically signed by: Juan Corrigan MD 03/28/2024 10:19 AM EST RP Head CT 04/25/24 12:22 IMPRESSION: No acute intracranial process seen. Electronically signed by: Ritchie Marte MD 04/25/2024 01:01 PM EST RP Medications Medications Current Medications Acetaminophen (Acetaminophen 325 Mg Tablet) 650 mg PO Q6H PRN PRN Reason: Headache/Pain Mild Scale (1-3) Last Admin: 01/17/24 23:53 Dose: 325 mg Al Hydroxide/Mg Hydroxide (Magnesium Hydrox/Alum Hydrox 30 Ml Oral.Susp) 30 ml PO Q6H PRN PRN Reason: Heartburn/Nausea Aripiprazole (Aripiprazole Er 400 Mg Suser.Syr) 400 mg IM Q30D FOR[facility], [facility] Aspirin (Aspirin 81 Mg Tab.Chew) 81 mg PO DAILY FOR[facility], [facility] Last Admin: 04/23/24 08:34 Dose: 81 mg Benztropine Mesylate (Benztropine Mesylate 0.5 Mg Tablet) 0.5 mg PO BID [facility], [facility]1983 Last Admin: 04/28/24 08:14 Dose: Not Given Carbamazepine (Carbamazepine 200 Mg Tablet) 200 mg PO BID [facility] Last Admin: 04/28/24 08:14 Dose: Not Given Ferrous Sulfate (Ferrous Sulfate 324 Mg Tablet.Dr) 324 mg PO BID [facility]1983 Last Admin: 04/28/24 08:14 Dose: Not Given Haloperidol Lactate (Haloperidol Lactate Oral Conc 10 Mg/5 Ml Oral.Conc) 5 mg PO Q6H PRN PRN Reason: Psychosis or severe agitation Last Admin: 04/28/24 11:05 Dose: 5 mg Haloperidol Lactate (Haloperidol Lactate 5 Mg/Ml Vial) 5 mg IM TID PRN PRN Reason: Refusal of Court PO Haldol Haloperidol Lactate (Haloperidol Lactate Oral Conc 10 Mg/5 Ml Oral.Conc) 5 mg PO TID [facility] Last Admin: 04/28/24 18:03 Dose: Not Given Lorazepam (Lorazepam 1 Mg Tablet) 2 mg PO Q6H PRN PRN Reason: Anxiety Last Admin: 04/28/24 11:05 Dose: 2 mg Magnesium Hydroxide (Milk Of Magnesia 30 Ml Oral.Susp) 30 ml PO DAILY PRN PRN Reason: Constipation Nicotine Polacrilex (Nicotine Polacrilex 2 Mg Gum) 2 mg BUCCAL Q2H PRN PRN Reason: Nicotine Cravings Propranolol HCl (Propranolol Hcl 10 Mg Tablet) 5 mg PO TID [facility]; Protocol Last Admin: 04/28/24 16:55 Dose: Not Given Trazodone HCl (Trazodone Hcl 50 Mg Tablet) 50 mg PO BEDTIME PRN PRN Reason: Insomnia Valproic Acid (Valproic Acid Liquid 250 Mg/5 Ml Solution) 750 mg PO BID [facility] Last Admin: 04/28/24 07:44 Dose: 750 mg Vitamin D (Cholecalciferol (Vitamin D3) 25 Mcg Tablet) 50 mcg PO DAILY [facility] Last Admin: 04/28/24 08:14 Dose: Not Given Allergies Allergies Allergy/AdvReac Type Severity Reaction Status Date / Time lithium Allergy Unknown Verified 01/13/24 18:08 Assessment & Plan Assessment & Plan (1) Schizoaffective disorder, bipolar type: Status: Acute Code(s): F25.0 - Schizoaffective disorder, bipolar type (2) Diabetes mellitus: Status: Acute Code(s): E11.9 - Type 2 diabetes mellitus without complications Assessment and Plan: A1c on 04/28 5.9% (3) Hypertension: Status: Acute Code(s): I10 - Essential (primary) hypertension (4) Pancytopenia: Status: Acute Code(s): D61.818 - Other pancytopenia Plan 03/23 keep same treatment 68 yo from a assisted with chronic psychotic disorder, refusing medication , elevated bp and disorganized and agitated behavior requiring psychiatric hospitalization and treatment not competent to sign cv. 01/14 continue to follow - gave lambs warning today- and he says the [facility]ator [employer] will be a she- still refusing medications and quite psychotic takes alot of redirection to settle him poor adls- 01/15- Refuses meds, refuses hospitalist consult-second day File for Section Seven consideration on 01/17. Provide care as he will allow. 01/16: Depakote 250 mg bid Haldol, Lorazepam, Benadryl prn Section 7 to be filed 01/17 Message left for guardian. 01/17: Section Seven filed. . Court scheduled 01/26/24 Pt continues to refuse medicaitons. He is in need of full assist with ADL's and is incontinent. Pt transferred to [facility] this afternoon. 01/19/2024 Patient pending civil commitment loud agitated would not engage in any conversation with this sheet writer non informational healing agitated verbally aggressive. Every attempt being made to get a copy of the patient's Servin order unclear why this has been so problematic. Encourage food and fluids 01/19 continue same treatment 01/21/24 Patient labile agitated intrusive close labs ordered in order to per to protect the community patient wandering into patient's rooms intrusive impulsive laying on another person's bed. Often hostile agitated posturing at times we are still pending copy of reported Servin order encourage p.o. compliance 01/22/2024 Patient did require physical hold escort him out of a room that he jumped in other patient's room and on their bed while there were in it. There was no physical harm and the patient did leave the room his markedly impulsive with poor judgment remains on close observation has intermittently taken Haldol liquid pending civil commitment treatment plan there is a question of Servin order 01/22 The patient had been more agitated. We review his Servin order and we are increasing the Abilify up to 15 mg p.o. daily and adding Haldol p.r.n. since it is in his role years order. We needed to give him some p.r.n. at 14:00. 01/23 The patient is grossly psychotic disrobing and sexually disinhibited we are starting Haldol 2 mg p.o. t.i.d. to target psychosis as per court order treatment over objection order. 01/24 The patient remains very agitated and angry disruptive so we are increasing the Haldol from 2 mg to 5 mg p.o. t.i.d. with a backup IM if the patient refused as per court order. 01/25 we have increased the Haldol but still he is very psychotic and restless. Today he refused his blood work. He needed to be physically held twice. 01/26 the patient remains agitated at times but his last IM backup was yesterday. We are going to increase Abilify up to 20 mg daily to target mood lability and psychosis. 01/29/2024: Increase frequency of prn doses from tid to prn q 6mrs. Poor insight and unable to care for self 02/08 pt has not take any of mood stabilizer. continues to have poor sleep, intrusive and combative requiring IM medications, increase haldol 10mg po TID, back up IM. Will add ativan 1mg po TID, also back up IM. Labs show elevated CK 2300, BUN 20, Cr 1.80, unclear baseline Cr as he does have CKD. Discussed with hospitalist Dr. Gama, to give IV fluids and monitor labs tomorrow. LFTs also elevated suspect this is secondary to elevation in CK and should trend down as CK goes down. 02/09 still agitated, creatinine and CPK slightly high as yesterday, he removed his IV line there is no big difference with IV hydration. We are changing his community role years to have more options since it is not working Abilify and Haldol 02/10 3 chemical restraints yesterday. appears more combative, and somewhat more confused. Will decrease amount of benzo and antihistamine given to him as it seems to be backfiring. did discuss with ICU attending, Dr. Whiteside possibility of transferring there but they would like us to try IV depakote and exhaust all resources prior to considering transfer. Pt did take depakote springkle 1000mg with apple sauce with much encourage. 02/11 continue tx. 02/12 continue same treatment 01/14 continue with Abilify and other court order medications, we are Namenda and the court order. 02/14 Team report improvement today with pt having greater comfort and less agitation. [id number] the staff reported that the patient had been less violent in the last 24 hours 02/16 continue tx. will check depakote and ammonia on 02/17 in AM. 02/17 continue regime and plan of care 02/26/2024: Continue current regimen as per court order 03/03 continue tx. lactulose for now as we don't have new ammonia level, but will try to chack labs. 03/16- continue medications, held clonidine patch for today due to low BP. repeat labs. 03/17-continue plan of care 03/18- continue tx 03/19 continue same treatment 03/20 waiting for CBC, basic metabolic panel and ammonia level. Today he nearly choked with a grape. We are going to change his diet to chopped 03/21 patient had a fall and he was assessed. No injuries as per CT scan of head and pelvis. Again he refused again his blood work vital signs within normal limits. 03/22 keep same treatment 03/23 keep same treatment 03 24 24 Continue plan of care Depakote Tegretol Haldol carbamazepine 03/25/2024 Repeat swallowing study ordered he is already on ground diet consider lowering Haldol versus Cogentin generally try to avoid older man 03/26 lowered Haldol to 7.5 p.o. b.i.d. 03/27 start Abilify Maintena 400 IM, later on we stopped it since he was over- sedated. 03/28 monitor vital signs and we will order blood work for tomorrow morning. 03/29 keep same treatment. We are deferring Abilify Maintena since the patient is still sedated and looks slightly delirious. He has refused blood work 03/31 continue current tx. less combative but no improvement in mentation. grossly disorganized and non sensical. 04/01: court ordered meds- team reviewing and optimizing same. 04/02 continue tx. 04/03 keep same treatment, so far he had been more compliant with some of the medications in the last 3 days. 04/04 start Abilify Maintena 400 mg IM 04/05 keep Haldol as prescribed 04/06 keep same treatment 04/08/24 continue current plan, regime 04/09/24 continue plan, CAT pending 04/10 continue same treatment 04/11 keep same treatment 04/12 lowering Haldol to 5 mg p.o. b.i.d. since the patient is over-sedated. 04/13 keep same treatment 04/14 agitated today, jumping around, dive off bed, crawling on all 4's, naked; took meds; now sleeping -floridly psychotic and sheet writer thought best to let pt sleep 04/16 keep same treatment 04/17 Abilify Maintena 400 mg today and scheduled next for 30 days. 04/18 change Haldol to 5 mg p.o. t.i.d. with backup IM if he refuses p.o. 04/19 keep same treatment. 04/20 keep same treatment 04/21: verbally aggressive, restless. continue 1:1 and current Tx plan. 04/22: asleep, not easily rousable. restless and irritable last gwen, slept only 4 hours overnight. continue current mgmt. 04/23 add Cogentin 0.5 p.o. b.i.d. small improvement on his psychosis 04/24 continue with same treatment. 04/25 the patient fell again. Blood pressure had been okay even though that he is noncompliant with clonidine patch. We discussed the case with the medical team and they agreed that we can discontinue since he had been noncompliant of clonidine patch since March 09. Starting on propranolol 5 mg p.o. t.i.d. to target akathisia. 04/26 continue tx. 04/27 continue tx. 04/28 reviewing labs- neutropenia and thrombocytopenia worsening Plt 88, ANC 1000, consult to mohamud/onc as plan to continue depakote given that it has been very difficult to stabilize patient. Also, pt with hx of DM, not on any medications. Will obtain A1c. continues to present disorganized, delirium-like presentation. VS are stable, BP on lower side, no need for additional medication for BP. depakote level 100.1. Ammonia level wnl. Will decrease dose of depakote given pancytopenia. Reason for continued inpatient stay Substantial Risk for: inability to function Time Spent With Patient Time: Total time managing care of this patient today ____ minutes.
[2024-04-28] MEDS: carBAMazepine 200 MG TABLET PO (21:01)
[2024-04-28] MEDS: Benztropine Mesylate 0.5 MG TABLET PO (21:01)
[2024-04-29] MEDS: Haloperidol Lactate Oral Conc 10 MG/5 ML ORAL.CONC 5 MG PO ×3 (07:46→20:52)
[2024-04-29] MEDS: Benztropine Mesylate 0.5 MG TABLET PO ×2 (07:46→20:54)
[2024-04-29] MEDS: carBAMazepine 200 MG TABLET PO ×2 (07:46→20:53)
[2024-04-29] MEDS: Valproic Acid Liquid 250 MG/5 ML SOLUTION 750 MG PO (07:47)
[2024-04-29 08:00] VITALS: RESP 18
[2024-04-29] MEDS: LORazepam 1 MG TABLET 2 MG PO ×2 (09:24→18:00)
[2024-04-29 12:00] LABS: Baso%MD 0.4 %; Eos%MD 1.8 %; Hematocrit 35.2 % (42.0-52.0); Hemoglobin 11.5 g/dl (14.0-18.0); IG%MD 0.4 %; Lymph%MD 67.6 %; Mean Corpuscular HGB Conc 32.7 g/dl (31.0-36.0); Mean Corpuscular Hemoglobin 29.1 pg (27.0-33.0); Mean Corpuscular Volume 89.1 fL (80.0-98.0); Mean Platelet Volume 10.7 fL (9.4-12.4); Mono%MD 6.8 %; Platelet Count 119 X10*3/uL (160-400); Red Blood Count 3.95 X10*6/uL (4.60-5.80); Red Cell Distribution Width 15.9 % (11.0-16.0); White Blood Count 2.8 X10*3/uL (4.8-10.8)
--- NOTE | 2024-04-29 12:15 | HO.PSYCHPN ---
Subjective Subjective Date of Service: 04/29/24 Reason For Visit: Schizoaffective disorder Subjective Notes: Section 7 Interim History: Pt slept 6hrs. He continues to present as disorganized, purposeless behaviors, unable to follow commands. He does initially say hi when this sql report writer asks him how is he doing but after that his speech is mostly non sensical. Seen by hem/onco- recommendation if possible to lower or d/c one of mood stabilizer. but also doing additional labs. pt's mentation has not significantly improved, in fact seems worsening, will try stopping depakote, continue carbamazepine for now. Review of Systems Review of Systems s/p fall Yes Unobtainable due to mental status Mental Status Exam Mental Status Exam Narrative: pt in bed, attempting to grab things that are not there, moving arms up and down, as well as legs, attempting at times to get out of bed, disorganized to do so even when giving step by step direction to safely get out of bed. attention is poor. most speech is non sensical Diagnostics Vital Signs (24Hr): Vital Signs - 24 hr 04/29/24 08:00 Respiratory Rate 18 BMI result Body Mass Index 25.1 Labs 04/29/24 11:52 04/28/24 08:52 Labs: Laboratory Results - last 48 hr 04/28/24 04/28/24 04/28/24 08:51 08:52 11:22 Sodium 139 140 Potassium 4.6 4.8 Chloride 106 106 Carbon Dioxide 27 27 Anion Gap 11 L 12 BUN 29 H 30 H Creatinine 1.29 1.29 Estim Creat Clear Calc 56.7 56.7 Estimated GFR 55 55 Random Glucose 107 108 Estimat Average Glucose 123 Hemoglobin A1c % 5.9 Calcium 8.6 D 8.6 Magnesium 1.9 Total Bilirubin 0.2 0.2 Direct Bilirubin < 0.2 AST 17 19 ALT 13 12 Alkaline Phosphatase 114 113 Ammonia 34 Total Protein 6.2 L 6.2 L Albumin 3.4 L 3.3 L Valproic Acid 100.8 H Carbamazepine 5.0 Imaging Radiology Impressions: ITS Impressions Chest X-Ray 03/20/24 08:33 IMPRESSION: Extremely limited exam. Only lateral views could be obtained. Suspect basilar airspace opacity, possibly pneumonia. Electronically signed by: Fortino Dumont MD 03/20/2024 10:10 AM [facility] Cervical Spine CT 03/21/24 11:18 IMPRESSION: 1. Allowing for suboptimal positioning, there is no CT evidence of acute cervical spine fracture or injury. 2. Degenerative changes with bulky ventral osteophytes spanning C4-C6, appearance in keeping with DISH. Electronically signed by: Fortino Dumont MD 03/21/2024 12:01 PM EST RP Head CT 03/21/24 11:18 IMPRESSION: 1. No acute intracranial abnormality. No acute fractures seen. 2. Stable chronic findings as discussed. Electronically signed by: Fortino Dumont MD 03/21/2024 11:54 AM EST RP Pelvis CT 03/21/24 11:18 IMPRESSION: 1. No acute bony abnormalities. No fractures. 2. Constipation with a large amount of stool in the rectum and sigmoid colon. 3. Mild thickening of the urinary bladder wall despite underdistention, nonspecific. Differential includes the detrusor hypertrophy, neurogenic bladder, or possibly cystitis. Electronically signed by: Fortino Dumont MD 03/21/2024 12:09 PM EST RP Head CT 03/28/24 09:37 IMPRESSION: No acute fracture, bony calvarium. No acute intracranial hemorrhage. Small vessel occlusive disease. Bifrontal bitemporal lobe atrophy. Electronically signed by: Juan Corrigan MD 03/28/2024 10:19 AM EST RP Head CT 04/25/24 12:22 IMPRESSION: No acute intracranial process seen. Electronically signed by: Ritchie Marte MD 04/25/2024 01:01 PM EST RP Medications Medications Current Medications Acetaminophen (Acetaminophen 325 Mg Tablet) 650 mg PO Q6H PRN PRN Reason: Headache/Pain Mild Scale (1-3) Last Admin: 01/17/24 23:53 Dose: 325 mg Al Hydroxide/Mg Hydroxide (Magnesium Hydrox/Alum Hydrox 30 Ml Oral.Susp) 30 ml PO Q6H PRN PRN Reason: Heartburn/Nausea Aripiprazole (Aripiprazole Er 400 Mg Suser.Syr) 400 mg IM Q30D KASIA Aspirin (Aspirin 81 Mg Tab.Chew) 81 mg PO DAILY [facility] Last Admin: 04/23/24 08:34 Dose: 81 mg Benztropine Mesylate (Benztropine Mesylate 0.5 Mg Tablet) 0.5 mg PO BID [facility] Last Admin: 04/29/24 07:46 Dose: 0.5 mg Carbamazepine (Carbamazepine 200 Mg Tablet) 200 mg PO BID [facility] Last Admin: 04/29/24 07:46 Dose: 200 mg Ferrous Sulfate (Ferrous Sulfate 324 Mg Tablet.Dr) 324 mg PO BID [facility] Last Admin: 04/29/24 08:48 Dose: Not Given Haloperidol Lactate (Haloperidol Lactate Oral Conc 10 Mg/5 Ml Oral.Conc) 5 mg PO Q6H PRN PRN Reason: Psychosis or severe agitation Last Admin: 04/28/24 11:05 Dose: 5 mg Haloperidol Lactate (Haloperidol Lactate 5 Mg/Ml Vial) 5 mg IM TID PRN PRN Reason: Refusal of Court PO Haldol Haloperidol Lactate (Haloperidol Lactate Oral Conc 10 Mg/5 Ml Oral.Conc) 5 mg PO TID [facility] Last Admin: 04/29/24 07:46 Dose: 5 mg Lorazepam (Lorazepam 1 Mg Tablet) 2 mg PO Q6H PRN PRN Reason: Anxiety Last Admin: 04/29/24 09:24 Dose: 2 mg Magnesium Hydroxide (Milk Of Magnesia 30 Ml Oral.Susp) 30 ml PO DAILY PRN PRN Reason: Constipation Nicotine Polacrilex (Nicotine Polacrilex 2 Mg Gum) 2 mg BUCCAL Q2H PRN PRN Reason: Nicotine Cravings Propranolol HCl (Propranolol Hcl 10 Mg Tablet) 5 mg PO TID [facility]; Protocol Last Admin: 04/29/24 08:50 Dose: Not Given Trazodone HCl (Trazodone Hcl 50 Mg Tablet) 50 mg PO BEDTIME PRN PRN Reason: Insomnia Valproic Acid (Valproic Acid Liquid 250 Mg/5 Ml Solution) 750 mg PO BID [facility] Last Admin: 04/29/24 07:47 Dose: 750 mg Vitamin D (Cholecalciferol (Vitamin D3) 25 Mcg Tablet) 50 mcg PO DAILY [facility] Last Admin: 04/29/24 08:48 Dose: Not Given Allergies Allergies Allergy/AdvReac Type Severity Reaction Status Date / Time lithium Allergy Unknown Verified 01/13/24 18:08 Assessment & Plan Assessment & Plan (1) Schizoaffective disorder, bipolar type: Status: Acute Code(s): F25.0 - Schizoaffective disorder, bipolar type (2) Diabetes mellitus: Status: Acute Code(s): E11.9 - Type 2 diabetes mellitus without complications Assessment and Plan: A1c on 04/28 5.9% (3) Hypertension: Status: Acute Code(s): I10 - Essential (primary) hypertension (4) Pancytopenia: Status: Acute Code(s): D61.818 - Other pancytopenia Plan 03/23 keep same treatment 68 yo from a long-term with chronic psychotic disorder, refusing medication , elevated bp and disorganized and agitated behavior requiring psychiatric hospitalization and treatment not competent to sign cv. 01/14 continue to follow - gave lambs warning today- and he says the residential service technician will be a she- still refusing medications and quite psychotic takes alot of redirection to settle him poor adls- 01/15- Refuses meds, refuses hospitalist consult-second day File for Section Seven consideration on 01/17. Provide care as he will allow. 01/16: Depakote 250 mg bid Haldol, Lorazepam, Benadryl prn Section 7 to be filed 01/17 Message left for guardian. 01/17: Section Seven filed. . Court scheduled 01/26/24 Pt continues to refuse medicaitons. He is in need of full assist with ADL's and is incontinent. Pt transferred to [facility] this afternoon. 01/19/2024 Patient pending civil commitment loud agitated would not engage in any conversation with this sql report writer non informational healing agitated verbally aggressive. Every attempt being made to get a copy of the patient's Servin order unclear why this has been so problematic. Encourage food and fluids 01/19 continue same treatment 01/21/24 Patient labile agitated intrusive close labs ordered in order to per to protect the community patient wandering into patient's rooms intrusive impulsive laying on another person's bed. Often hostile agitated posturing at times we are still pending copy of reported Servin order encourage p.o. compliance 01/22/2024 Patient did require physical hold escort him out of a room that he jumped in other patient's room and on their bed while there were in it. There was no physical harm and the patient did leave the room his markedly impulsive with poor judgment remains on close observation has intermittently taken Haldol liquid pending civil commitment treatment plan there is a question of Servin order 01/22 The patient had been more agitated. We review his Servin order and we are increasing the Abilify up to 15 mg p.o. daily and adding Haldol p.r.n. since it is in his role years order. We needed to give him some p.r.n. at 14:00. 01/23 The patient is grossly psychotic disrobing and sexually disinhibited we are starting Haldol 2 mg p.o. t.i.d. to target psychosis as per court order treatment over objection order. 01/24 The patient remains very agitated and angry disruptive so we are increasing the Haldol from 2 mg to 5 mg p.o. t.i.d. with a backup IM if the patient refused as per court order. 01/25 we have increased the Haldol but still he is very psychotic and restless. Today he refused his blood work. He needed to be physically held twice. 01/26 the patient remains agitated at times but his last IM backup was yesterday. We are going to increase Abilify up to 20 mg daily to target mood lability and psychosis. 01/29/2024: Increase frequency of prn doses from tid to prn q 6mrs. Poor insight and unable to care for self 02/08 pt has not take any of mood stabilizer. continues to have poor sleep, intrusive and combative requiring IM medications, increase haldol 10mg po TID, back up IM. Will add ativan 1mg po TID, also back up IM. Labs show elevated CK 2300, BUN 20, Cr 1.80, unclear baseline Cr as he does have CKD. Discussed with hospitalist Dr. Gama, to give IV fluids and monitor labs tomorrow. LFTs also elevated suspect this is secondary to elevation in CK and should trend down as CK goes down. 02/09 still agitated, creatinine and CPK slightly high as yesterday, he removed his IV line there is no big difference with IV hydration. We are changing his community role years to have more options since it is not working Abilify and Haldol 02/10 3 chemical restraints yesterday. appears more combative, and somewhat more confused. Will decrease amount of benzo and antihistamine given to him as it seems to be backfiring. did discuss with ICU attending, Dr. Whiteside possibility of transferring there but they would like us to try IV depakote and exhaust all resources prior to considering transfer. Pt did take depakote springkle 1000mg with apple sauce with much encourage. 02/11 continue tx. 02/12 continue same treatment 01/14 continue with Abilify and other court order medications, we are Namenda and the court order. 02/14 Team report improvement today with pt having greater comfort and less agitation. [id number] the staff reported that the patient had been less violent in the last 24 hours 02/16 continue tx. will check depakote and ammonia on 02/17 in AM. 02/17 continue regime and plan of care 02/26/2024: Continue current regimen as per court order 03/03 continue tx. lactulose for now as we don't have new ammonia level, but will try to chack labs. 03/16- continue medications, held clonidine patch for today due to low BP. repeat labs. 03/17-continue plan of care 03/18- continue tx 03/19 continue same treatment 03/20 waiting for CBC, basic metabolic panel and ammonia level. Today he nearly choked with a grape. We are going to change his diet to chopped 03/21 patient had a fall and he was assessed. No injuries as per CT scan of head and pelvis. Again he refused again his blood work vital signs within normal limits. 03/22 keep same treatment 03/23 keep same treatment 03 24 24 Continue plan of care Depakote Tegretol Haldol carbamazepine 03/25/2024 Repeat swallowing study ordered he is already on ground diet consider lowering Haldol versus Cogentin generally try to avoid older man 03/26 lowered Haldol to 7.5 p.o. b.i.d. 03/27 start Abilify Maintena 400 IM, later on we stopped it since he was over-sedated. 03/28 monitor vital signs and we will order blood work for tomorrow morning. 03/29 keep same treatment. We are deferring Abilify Maintena since the patient is still sedated and looks slightly delirious. He has refused blood work 03/31 continue current tx. less combative but no improvement in mentation. grossly disorganized and non sensical. 04/01: court ordered meds- team reviewing and optimizing same. 04/02 continue tx. 04/03 keep same treatment, so far he had been more compliant with some of the medications in the last 3 days. 04/04 start Abilify Maintena 400 mg IM 04/05 keep Haldol as prescribed 04/06 keep same treatment 04/08/24 continue current plan, regime 04/09/24 continue plan, CAT pending 04/10 continue same treatment 04/11 keep same treatment 04/12 lowering Haldol to 5 mg p.o. b.i.d. since the patient is over-sedated. 04/13 keep same treatment 04/14 agitated today, jumping around, dive off bed, crawling on all 4's, naked; took meds; now sleeping -floridly psychotic and sql report writer thought best to let pt sleep 04/16 keep same treatment 04/17 Abilify Maintena 400 mg today and scheduled next for 30 days. 04/18 change Haldol to 5 mg p.o. t.i.d. with backup IM if he refuses p.o. 04/19 keep same treatment. 04/20 keep same treatment 04/21: verbally aggressive, restless. continue 1:1 and current Tx plan. 04/22: asleep, not easily rousable. restless and irritable last gwen, slept only 4 hours overnight. continue current mgmt. 04/23 add Cogentin 0.5 p.o. b.i.d. small improvement on his psychosis 04/24 continue with same treatment. 04/25 the patient fell again. Blood pressure had been okay even though that he is noncompliant with clonidine patch. We discussed the case with the medical team and they agreed that we can discontinue since he had been noncompliant of clonidine patch since March 09. Starting on propranolol 5 mg p.o. t.i.d. to target akathisia. 04/26 continue tx. 04/27 continue tx. 04/28 reviewing labs- neutropenia and thrombocytopenia worsening Plt 88, ANC 1000, consult to mohamud/onc as plan to continue depakote given that it has been very difficult to stabilize patient. Also, pt with hx of DM, not on any medications. Will obtain A1c. continues to present disorganized, delirium-like presentation. VS are stable, BP on lower side, no need for additional medication for BP. depakote level 100.1. Ammonia level wnl. Will decrease dose of depakote given pancytopenia. 04/29 will stop depakote (one as it may be contributing to pancytopenia, second because it has not shown significant improvement in mentation), continue carbamazepine, pt seen by oncology- appreciate recommendations- Reason for continued inpatient stay Substantial Risk for: inability to function Time Spent With Patient Time: Total time managing care of this patient today ____ minutes.
[2024-04-29 12:21] LABS: Band Neutrophils Percent 0 % (3-5); Eosinophils Absolute Manual 0.1 X10*3/uL (0.0-0.4); Eosinophils Percent Manual 3 % (0-4); Lymphocytes Absolute Manual 1.8 X10*3/uL (1.2-4.9); Lymphocytes Percent Manual 66 % (20-40); Monocytes Percent Manual 1 % (2-11); Neutrophils Absolute Manual 0.8 X10*3/uL (2.0-8.3); Neutrophils Percent Manual 30 % (45-73); Ovalocytes 1+ (5-14) /OIF; Platelet Estimate SLIGHTLY DECREASED (NORMAL); Platelet Morphology Comment NORMAL; RBC Morphology NOTED
[2024-04-29 12:36] LABS: Lactate Dehydrogenase 179 U/L (118-273)
[2024-04-29 12:38] LABS: Erythrocyte Sedimentation Rate 7 MM/HR (0-15)
[2024-04-29 12:50] LABS: Rheumatoid Factor < 13.0 IU/mL (<15.0)
[2024-04-29 20:00] VITALS: PULSE 64; RESP 16
[2024-04-29 20:53] VITALS: PULSE 64
[2024-04-29] MEDS: traZODone HCL 50 MG TABLET PO (20:53)
[2024-04-29] MEDS: Propranolol HCL 10 MG TABLET 5 MG PO (20:53)
[2024-04-30] MEDS: Haloperidol Lactate Oral Conc 10 MG/5 ML ORAL.CONC 5 MG PO ×3 (01:31→19:49)
[2024-04-30] MEDS: LORazepam 1 MG TABLET 2 MG PO ×2 (01:32→09:52)
[2024-04-30] MEDS: traZODone HCL 50 MG TABLET PO ×2 (01:32→19:49)
[2024-04-30 03:44] LABS: HBS Num1 11.98 mIU/mL (0-7.99); HBc Num1 4.59 S/CO (0.00-0.79); HBsAGNum1 0.38 S/CO (0.00-0.99); HIV Num 1 1.55 S/CO (0.00-0.99); Hepatitis B Surface Antigen Negative (Negative); ~HepC Num1 0.21 S/CO (0.00-0.79); ~Hepatitis C Antibody Nonreactive (Nonreactive)
[2024-04-30 04:35] LABS: HBS Num2 10.71 mIU/mL (0-7.99); HBS Num3 11.22 mIU/mL (0-7.99); HBc Num2 4.61 S/CO; HBc Num3 4.57 S/CO; Hepatitis B Core Antibody Reactive (Nonreactive); ~Hepatitis B Surface Antibody GRAYZONE (Nonreactive)
[2024-04-30 04:36] LABS: HIV AB/AG Nonreactive (Nonreactive); HIV Num 2 0.05 S/CO; HIV Num 3 0.07 S/CO
[2024-04-30 08:00] VITALS: PULSE 58; RESP 16; TEMP 36.2; O2SAT 100
[2024-04-30] MEDS: carBAMazepine 200 MG TABLET PO ×2 (09:52→19:49)
[2024-04-30] MEDS: Benztropine Mesylate 0.5 MG TABLET PO ×2 (09:53→19:49)
[2024-04-30] MEDS: Cholecalciferol (Vitamin D3) 25 MCG TABLET 50 MCG PO (09:54)
--- NOTE | 2024-04-30 10:11 | HO.PSYCHPN ---
Subjective Subjective Date of Service: 04/30/24 Reason For Visit: Schizoaffective disorder Subjective Notes: Conditional Voluntary Interim History: Pt slept 6hrs. He continues to present as disorganized, purposeless behaviors, unable to follow commands. He does initially say hi when this greeting card writer asks him how is he doing but after that his speech is mostly non sensical. Review of Systems Review of Systems s/p fall Yes Unobtainable due to mental status Mental Status Exam Mental Status Exam Narrative: pt in bed, attempting to grab things that are not there, moving arms up and down, as well as legs, attempting at times to get out of bed, disorganized to do so even when giving step by step direction to safely get out of bed. attention is poor. most speech is non sensical Diagnostics Vital Signs (24Hr): Vital Signs - 24 hr 04/29/24 20:00 04/29/24 20:53 Pulse Rate 64 64 Respiratory Rate 16 BMI result Body Mass Index 25.1 Labs 04/29/24 11:52 04/28/24 08:52 Labs: Laboratory Results - last 48 hr 04/28/24 04/28/24 04/28/24 08:51 08:52 11:22 WBC RBC Hgb Hct MCV MCH MCHC RDW Plt Count MPV Absolute Nucleated RBC Nucleated RBC % (auto) Neutrophils % (Manual) Band Neutrophils % Lymphocytes % (Manual) Monocytes % (Manual) Eosinophils % (Manual) Abs Neuts (Manual) Lymphocytes # (Manual) Eosinophils # (Manual) Platelet Estimate Plt Morphology Comment RBC Morphology Ovalocytes ESR Sodium 139 140 Potassium 4.6 4.8 Chloride 106 106 Carbon Dioxide 27 27 Anion Gap 11 L 12 BUN 29 H 30 H Creatinine 1.29 1.29 Estim Creat Clear Calc 56.7 56.7 Estimated GFR 55 55 Random Glucose 107 108 Estimat Average Glucose 123 Hemoglobin A1c % 5.9 Calcium 8.6 D 8.6 Magnesium 1.9 Total Bilirubin 0.2 0.2 Direct Bilirubin < 0.2 AST 17 19 ALT 13 12 Alkaline Phosphatase 114 113 Ammonia 34 Lactate Dehydrogenase Total Protein 6.2 L 6.2 L Albumin 3.4 L 3.3 L Valproic Acid 100.8 H Carbamazepine 5.0 Rheumatoid Factor Hep Bs Antigen Hep Bs Antibody Hep B Core Total Ab Hepatitis C Ab (EIA) HIV 1&2 Ab/P24 Ag 4thGn 04/29/24 11:52 WBC 2.8 L RBC 3.95 L Hgb 11.5 L Hct 35.2 L MCV 89.1 MCH 29.1 MCHC 32.7 RDW 15.9 Plt Count 119 L D MPV 10.7 Absolute Nucleated RBC 0.000 Nucleated RBC % (auto) 0.0 Neutrophils % (Manual) 30 L Band Neutrophils % 0 L Lymphocytes % (Manual) 66 H Monocytes % (Manual) 1 L Eosinophils % (Manual) 3 Abs Neuts (Manual) 0.8 L Lymphocytes # (Manual) 1.8 Eosinophils # (Manual) 0.1 Platelet Estimate SLIGHTLY DECREASED Plt Morphology Comment NORMAL RBC Morphology NOTED Ovalocytes 1+ (5-14) ESR 7 Sodium Potassium Chloride Carbon Dioxide Anion Gap BUN Creatinine Estim Creat Clear Calc Estimated GFR Random Glucose Estimat Average Glucose Hemoglobin A1c % Calcium Magnesium Total Bilirubin Direct Bilirubin AST ALT Alkaline Phosphatase Ammonia Lactate Dehydrogenase 179 Total Protein Albumin Valproic Acid Carbamazepine Rheumatoid Factor < 13.0 Hep Bs Antigen Negative Hep Bs Antibody GRAYZONE Hep B Core Total Ab Reactive Hepatitis C Ab (EIA) Nonreactive HIV 1&2 Ab/P24 Ag 4thGn Nonreactive Imaging Radiology Impressions: ITS Impressions Chest X-Ray 03/20/24 08:33 IMPRESSION: Extremely limited exam. Only lateral views could be obtained. Suspect basilar airspace opacity, possibly pneumonia. Electronically signed by: Fortino Dumont MD 03/20/2024 10:10 AM EST RP Cervical Spine CT 03/21/24 11:18 IMPRESSION: 1. Allowing for suboptimal positioning, there is no CT evidence of acute cervical spine fracture or injury. 2. Degenerative changes with bulky ventral osteophytes spanning C4-C6, appearance in keeping with DISH. Electronically signed by: Fortino Dumont MD 03/21/2024 12:01 PM EST RP Head CT 03/21/24 11:18 IMPRESSION: 1. No acute intracranial abnormality. No acute fractures seen. 2. Stable chronic findings as discussed. Electronically signed by: Fortino Dumont MD 03/21/2024 11:54 AM EST RP Pelvis CT 03/21/24 11:18 IMPRESSION: 1. No acute bony abnormalities. No fractures. 2. Constipation with a large amount of stool in the rectum and sigmoid colon. 3. Mild thickening of the urinary bladder wall despite underdistention, nonspecific. Differential includes the detrusor hypertrophy, neurogenic bladder, or possibly cystitis. Electronically signed by: Fortnio Dumont MD 03/21/2024 12:09 PM EST RP Head CT 03/28/24 09:37 IMPRESSION: No acute fracture, bony calvarium. No acute intracranial hemorrhage. Small vessel occlusive disease. Bifrontal bitemporal lobe atrophy. Electronically signed by: Juan Corrigan MD 03/28/2024 10:19 AM EST RP Head CT 04/25/24 12:22 IMPRESSION: No acute intracranial process seen. Electronically signed by: Ritchie Marte MD 04/25/2024 01:01 PM EST RP Medications Medications Current Medications Acetaminophen (Acetaminophen 325 Mg Tablet) 650 mg PO Q6H PRN PRN Reason: Headache/Pain Mild Scale (1-3) Last Admin: 01/17/24 23:53 Dose: 325 mg Al Hydroxide/Mg Hydroxide (Magnesium Hydrox/Alum Hydrox 30 Ml Oral.Susp) 30 ml PO Q6H PRN PRN Reason: Heartburn/Nausea Aripiprazole (Aripiprazole Er 400 Mg Suser.Syr) 400 mg IM Q30D [facility] Aspirin (Aspirin 81 Mg Tab.Chew) 81 mg PO DAILY [facility] Last Admin: 04/23/24 08:34 Dose: 81 mg Benztropine Mesylate (Benztropine Mesylate 0.5 Mg Tablet) 0.5 mg PO BID [facility] Last Admin: 04/30/24 09:53 Dose: 0.5 mg Carbamazepine (Carbamazepine 200 Mg Tablet) 200 mg PO BID [facility] Last Admin: 04/30/24 09:52 Dose: 200 mg Ferrous Sulfate (Ferrous Sulfate 324 Mg Tablet.Dr) 324 mg PO BID [facility] Last Admin: 04/30/24 09:56 Dose: Not Given Haloperidol Lactate (Haloperidol Lactate Oral Conc 10 Mg/5 Ml Oral.Conc) 5 mg PO Q6H PRN PRN Reason: Psychosis or severe agitation Last Admin: 04/30/24 01:31 Dose: 5 mg Haloperidol Lactate (Haloperidol Lactate 5 Mg/Ml Vial) 5 mg IM TID PRN PRN Reason: Refusal of Court PO Haldol Haloperidol Lactate (Haloperidol Lactate Oral Conc 10 Mg/5 Ml Oral.Conc) 5 mg PO TID [facility] Last Admin: 04/30/24 09:54 Dose: 5 mg Lorazepam (Lorazepam 1 Mg Tablet) 2 mg PO Q6H PRN PRN Reason: Anxiety Last Admin: 04/30/24 09:52 Dose: 2 mg Magnesium Hydroxide (Milk Of Magnesia 30 Ml Oral.Susp) 30 ml PO DAILY PRN PRN Reason: Constipation Nicotine Polacrilex (Nicotine Polacrilex 2 Mg Gum) 2 mg BUCCAL Q2H PRN PRN Reason: Nicotine Cravings Propranolol HCl (Propranolol Hcl 10 Mg Tablet) 5 mg PO TID [facility]; Protocol Last Admin: 04/30/24 10:09 Dose: Not Given Trazodone HCl (Trazodone Hcl 50 Mg Tablet) 50 mg PO BEDTIME PRN PRN Reason: Insomnia Last Admin: 04/30/24 01:32 Dose: 50 mg Vitamin D (Cholecalciferol (Vitamin D3) 25 Mcg Tablet) 50 mcg PO DAILY [facility] Last Admin: 04/30/24 09:54 Dose: 50 mcg Allergies Allergies Allergy/AdvReac Type Severity Reaction Status Date / Time lithium Allergy Unknown Verified 01/13/24 18:08 Assessment & Plan Assessment & Plan (1) Schizoaffective disorder, bipolar type: Status: Acute Code(s): F25.0 - Schizoaffective disorder, bipolar type (2) Diabetes mellitus: Status: Acute Code(s): E11.9 - Type 2 diabetes mellitus without complications Assessment and Plan: A1c on 04/28 5.9% (3) Hypertension: Status: Acute Code(s): I10 - Essential (primary) hypertension (4) Pancytopenia: Status: Acute Code(s): D61.818 - Other pancytopenia Plan 03/23 keep same treatment 68 [facility] with chronic psychotic disorder, refusing medication , elevated bp and disorganized and agitated behavior requiring psychiatric hospitalization and treatment not competent to sign cv. 01/14 continue to follow - gave lambs warning today- and he says the geodetic computator will be a she- still refusing medications and quite psychotic takes alot of redirection to settle him poor adls- 01/15- Refuses meds, refuses hospitalist consult-second day File for Section Seven consideration on 01/17. Provide care as he will allow. 01/16: Depakote 250 mg bid Haldol, Lorazepam, Benadryl prn Section 7 to be filed 01/17 Message left for guardian. 01/17: Section [address] filed. . Court scheduled 01/26/24 Pt continues to refuse medicaitons. He is in need of full assist with ADL's and is incontinent. Pt transferred to [facility] this afternoon. 01/19/2024 Patient pending civil commitment loud agitated would not engage in any conversation with this greeting card writer non informational healing agitated verbally aggressive. Every attempt being made to get a copy of the patient's Servin order unclear why this has been so problematic. Encourage food and fluids 01/19 continue same treatment 01/21/24 Patient labile agitated intrusive close labs ordered in order to per to protect the community patient wandering into patient's rooms intrusive impulsive laying on another person's bed. Often hostile agitated posturing at times we are still pending copy of reported Servin order encourage p.o. compliance 01/22/2024 Patient did require physical hold escort him out of a room that he jumped in other patient's room and on their bed while there were in it. There was no physical harm and the patient did leave the room his markedly impulsive with poor judgment remains on close observation has intermittently taken Haldol liquid pending civil commitment treatment plan there is a question of Servin order 01/22 The patient had been more agitated. We review his Servin order and we are increasing the Abilify up to 15 mg p.o. daily and adding Haldol p.r.n. since it is in his role years order. We needed to give him some p.r.n. at 14:00. 01/23 The patient is grossly psychotic disrobing and sexually disinhibited we are starting Haldol 2 mg p.o. t.i.d. to target psychosis as per court order treatment over objection order. 01/24 The patient remains very agitated and angry disruptive so we are increasing the Haldol from 2 mg to 5 mg p.o. t.i.d. with a backup IM if the patient refused as per court order. 01/25 we have increased the Haldol but still he is very psychotic and restless. Today he refused his blood work. He needed to be physically held twice. 01/26 the patient remains agitated at times but his last IM backup was yesterday. We are going to increase Abilify up to 20 mg daily to target mood lability and psychosis. 01/29/2024: Increase frequency of prn doses from tid to prn q 6mrs. Poor insight and unable to care for self 02/08 pt has not take any of mood stabilizer. continues to have poor sleep, intrusive and combative requiring IM medications, increase haldol 10mg po TID, back up IM. Will add ativan 1mg po TID, also back up IM. Labs show elevated CK 2300, BUN 20, Cr 1.80, unclear baseline Cr as he does have CKD. Discussed with hospitalist Dr. Gama, to give IV fluids and monitor labs tomorrow. LFTs also elevated suspect this is secondary to elevation in CK and should trend down as CK goes down. 02/09 still agitated, creatinine and CPK slightly high as yesterday, he removed his IV line there is no big difference with IV hydration. We are changing his community role years to have more options since it is not working Abilify and Haldol 02/10 3 chemical restraints yesterday. appears more combative, and somewhat more confused. Will decrease amount of benzo and antihistamine given to him as it seems to be backfiring. did discuss with ICU attending, Dr. Whiteside possibility of transferring there but they would like us to try IV depakote and exhaust all resources prior to considering transfer. Pt did take depakote springkle 1000mg with apple sauce with much encourage. 02/11 continue tx. 02/12 continue same treatment 01/14 continue with Abilify and other court order medications, we are Namenda and the court order. 02/14 Team report improvement today with pt having greater comfort and less agitation. [id number] the staff reported that the patient had been less violent in the last 24 hours 02/16 continue tx. will check depakote and ammonia on 02/17 in AM. 02/17 continue regime and plan of care 02/26/2024: Continue current regimen as per court order 03/03 continue tx. lactulose for now as we don't have new ammonia level, but will try to chack labs. 03/16- continue medications, held clonidine patch for today due to low BP. repeat labs. 03/17-continue plan of care 03/18- continue tx 03/19 continue same treatment 03/20 waiting for CBC, basic metabolic panel and ammonia level. Today he nearly choked with a grape. We are going to change his diet to chopped 03/21 patient had a fall and he was assessed. No injuries as per CT scan of head and pelvis. Again he refused again his blood work vital signs within normal limits. 03/22 keep same treatment 03/23 keep same treatment 03 24 24 Continue plan of care Depakote Tegretol Haldol carbamazepine 03/25/2024 Repeat swallowing study ordered he is already on ground diet consider lowering Haldol versus Cogentin generally try to avoid older man 03/26 lowered Haldol to 7.5 p.o. b.i.d. 03/27 start Abilify Maintena 400 IM, later on we stopped it since he was over-sedated. 03/28 monitor vital signs and we will order blood work for tomorrow morning. 03/29 keep same treatment. We are deferring Abilify Maintena since the patient is still sedated and looks slightly delirious. He has refused blood work 03/31 continue current tx. less combative but no improvement in mentation. grossly disorganized and non sensical. 04/01: court ordered meds- team reviewing and optimizing same. 04/02 continue tx. 04/03 keep same treatment, so far he had been more compliant with some of the medications in the last 3 days. 04/04 start Abilify Maintena 400 mg IM 04/05 keep Haldol as prescribed 04/06 keep same treatment 04/08/24 continue current plan, regime 04/09/24 continue plan, CAT pending 04/10 continue same treatment 04/11 keep same treatment 04/12 lowering Haldol to 5 mg p.o. b.i.d. since the patient is over-sedated. 04/13 keep same treatment 04/14 agitated today, jumping around, dive off bed, crawling on all 4's, naked; took meds; now sleeping -floridly psychotic and greeting card writer thought best to let pt sleep 04/16 keep same treatment 04/17 Abilify Maintena 400 mg today and scheduled next for 30 days. 04/18 change Haldol to 5 mg p.o. t.i.d. with backup IM if he refuses p.o. 04/19 keep same treatment. 04/20 keep same treatment 04/21: verbally aggressive, restless. continue 1:1 and current Tx plan. 04/22: asleep, not easily rousable. restless and irritable last gwen, slept only 4 hours overnight. continue current mgmt. 04/23 add Cogentin 0.5 p.o. b.i.d. small improvement on his psychosis 04/24 continue with same treatment. 04/25 the patient fell again. Blood pressure had been okay even though that he is noncompliant with clonidine patch. We discussed the case with the medical team and they agreed that we can discontinue since he had been noncompliant of clonidine patch since March 09. Starting on propranolol 5 mg p.o. t.i.d. to target akathisia. 04/26 continue tx. 04/27 continue tx. 04/28 reviewing labs- neutropenia and thrombocytopenia worsening Plt 88, ANC 1000, consult to mohamud/onc as plan to continue depakote given that it has been very difficult to stabilize patient. Also, pt with hx of DM, not on any medications. Will obtain A1c. continues to present disorganized, delirium-like presentation. VS are stable, BP on lower side, no need for additional medication for BP. depakote level 100.1. Ammonia level wnl. Will decrease dose of depakote given pancytopenia. 04/29 will stop depakote (one as it may be contributing to pancytopenia, second because it has not shown significant improvement in mentation), continue carbamazepine, pt seen by oncology- appreciate recommendations- 04/30 continue tx. continue to monitor ANC, Plts. oncology/hem following. Reason for continued inpatient stay Substantial Risk for: inability to function Time Spent With Patient Time: Total time managing care of this patient today ____ minutes.
--- NOTE | 2024-04-30 17:25 | PC.NURSE ---
3pm dose of Haldol held. Bret was sleeping and unable to easily wake. MD contacted and decision was made to hold.
[2024-04-30] MEDS: Propranolol HCL 10 MG TABLET 5 MG PO (19:49)
[2024-04-30 20:00] VITALS: PULSE 68; RESP 18; TEMP 36.6
[2024-04-30 21:53] LABS: IgA 205 mg/dL (70-320); IgG 1030 mg/dL (600-1540); IgM 53 mg/dL (50-300)
[2024-05-01] MEDS: LORazepam 1 MG TABLET PO ×3 (03:21→20:51)
[2024-05-01] MEDS: Haloperidol Lactate Oral Conc 10 MG/5 ML ORAL.CONC 5 MG PO ×4 (03:21→20:50)
[2024-05-01 06:52] LABS: Hepatitis B Core Antibody IgM NON-REACTIVE (NON-REACTIVE)
[2024-05-01] MEDS: carBAMazepine 200 MG TABLET PO ×2 (07:52→20:51)
[2024-05-01] MEDS: Benztropine Mesylate 0.5 MG TABLET PO ×2 (07:52→20:51)
[2024-05-01] MEDS: Cholecalciferol (Vitamin D3) 25 MCG TABLET 50 MCG PO (07:52)
[2024-05-01 08:00] VITALS: PULSE 62; RESP 16
--- NOTE | 2024-05-01 11:15 | P.PNPSI_ITS ---
Subjective Subjective Date of Service: 05/01/24 Reason For Visit: Schizoaffective disorder Subjective Notes: Conditional Voluntary Interim History: Pt slept most of the night. His speech is more coherent and organized. He reports he was at rest home prior to coming here. He reports he was not treated well but will not talk about it. He asks this technical writer and editor how I am doing and whether I would sit down to talk with him. He reports he wants to go for a walk but every time he attempts to walk on his own, he is very weak physically and unsteady. Limited awareness about this and still attempting to ambulate. He was making sexual remarks to RN. He was making racially charged statements to his one to one. Left VM to guardian for update. Review of Systems Review of Systems s/p fall Yes Unobtainable due to mental status Mental Status Exam Mental Status Exam Narrative: Appearance: no shirt and taking hospital gown off, poor hygiene, in NAD Behavior: cooperative Psychomotor: no agitation or retardation Speech: less mumbles, regular rate/rhythm/volume, spontaneous. TP: more linear, less derailment TC: between sexualized and racially charge comments, wanting to walk but no awareness of weakness and unsteady gait. Mood: good Affect: congruent SI: denies HI: denies VH/AH: internally preoccupied Delusions: sexualized remarks Insight/judgment: impaired x 2. Memory/cog: alert, oriented to idea that he is in the hospital. Diagnostics Vital Signs (24Hr): Vital Signs - 24 hr 04/30/24 20:00 05/01/24 08:00 Temperature 97.8 F Pulse Rate 68 62 Respiratory Rate 18 16 BMI result Body Mass Index 25.1 Labs 04/29/24 11:52 04/28/24 08:52 Labs: Laboratory Results - last 48 hr 04/29/24 04/29/24 00:30 11:52 WBC 2.8 L RBC 3.95 L Hgb 11.5 L Hct 35.2 L MCV 89.1 MCH 29.1 MCHC 32.7 RDW 15.9 Plt Count 119 L D MPV 10.7 Absolute Nucleated RBC 0.000 Nucleated RBC % (auto) 0.0 Neutrophils % (Manual) 30 L Band Neutrophils % 0 L Lymphocytes % (Manual) 66 H Monocytes % (Manual) 1 L Eosinophils % (Manual) 3 Abs Neuts (Manual) 0.8 L Lymphocytes # (Manual) 1.8 Eosinophils # (Manual) 0.1 Platelet Estimate SLIGHTLY DECREASED Plt Morphology Comment NORMAL RBC Morphology NOTED Ovalocytes 1+ (5-14) ESR 7 Lactate Dehydrogenase 179 IgG Total 1030 IgA Total 205 IgM 53 DIGNA Interpretation SEE NOTE Rheumatoid Factor < 13.0 Hep Bs Antigen Negative Hep Bs Antibody GRAYZONE Hep B Core Total Ab Reactive Hep B Core IgM Ab NON-REACTIVE Hepatitis C Ab (EIA) Nonreactive HIV 1&2 Ab/P24 Ag 4thGn Nonreactive Imaging Radiology Impressions: ITS Impressions Chest X-Ray 03/20/24 08:33 IMPRESSION: Extremely limited exam. Only lateral views could be obtained. Suspect basilar airspace opacity, possibly pneumonia. Electronically signed by: Fortino Dumont MD 03/20/2024 10:10 AM EST RP Cervical Spine CT 03/21/24 11:18 IMPRESSION: 1. Allowing for suboptimal positioning, there is no CT evidence of acute cervical spine fracture or injury. 2. Degenerative changes with bulky ventral osteophytes spanning C4-C6, appearance in keeping with DISH. Electronically signed by: Fortino Dumont MD 03/21/2024 12:01 PM EST RP Head CT 03/21/24 11:18 IMPRESSION: 1. No acute intracranial abnormality. No acute fractures seen. 2. Stable chronic findings as discussed. Electronically signed by: Fortino Dumont MD 03/21/2024 11:54 AM EST RP Pelvis CT 03/21/24 11:18 IMPRESSION: 1. No acute bony abnormalities. No fractures. 2. Constipation with a large amount of stool in the rectum and sigmoid colon. 3. Mild thickening of the urinary bladder wall despite underdistention, nonspecific. Differential includes the detrusor hypertrophy, neurogenic bladder, or possibly cystitis. Electronically signed by: Fortino Dumont MD 03/21/2024 12:09 PM EST RP Head CT 03/28/24 09:37 IMPRESSION: No acute fracture, bony calvarium. No acute intracranial hemorrhage. Small vessel occlusive disease. Bifrontal bitemporal lobe atrophy. Electronically signed by: Juan Corrigan MD 03/28/2024 10:19 AM EST RP Head CT 04/25/24 12:22 IMPRESSION: No acute intracranial process seen. Electronically signed by: Ritchie Marte MD 04/25/2024 01:01 PM EST RP Medications Medications Current Medications Acetaminophen (Acetaminophen 325 Mg Tablet) 650 mg PO Q6H PRN PRN Reason: Headache/Pain Mild Scale (1-3) Last Admin: 01/17/24 23:53 Dose: 325 mg Al Hydroxide/Mg Hydroxide (Magnesium Hydrox/Alum Hydrox 30 Ml Oral.Susp) 30 ml PO Q6H PRN PRN Reason: Heartburn/Nausea Aripiprazole (Aripiprazole Er 400 Mg Suser.Syr) 400 mg IM Q30D [facility] Aspirin (Aspirin 81 Mg Tab.Chew) 81 mg PO DAILY [facility] Last Admin: 04/23/24 08:34 Dose: 81 mg Benztropine Mesylate (Benztropine Mesylate 0.5 Mg Tablet) 0.5 mg PO BID [facility] Last Admin: 05/01/24 07:52 Dose: 0.5 mg Carbamazepine (Carbamazepine 200 Mg Tablet) 200 mg PO BID [facility] Last Admin: 05/01/24 07:52 Dose: 200 mg Ferrous Sulfate (Ferrous Sulfate 324 Mg Tablet.Dr) 324 mg PO BID [facility] Last Admin: 05/01/24 08:06 Dose: Not Given Haloperidol Lactate (Haloperidol Lactate Oral Conc 10 Mg/5 Ml Oral.Conc) 5 mg PO Q6H PRN PRN Reason: Psychosis or severe agitation Last Admin: 05/01/24 03:21 Dose: 5 mg Haloperidol Lactate (Haloperidol Lactate 5 Mg/Ml Vial) 5 mg IM TID PRN PRN Reason: Refusal of Court PO Haldol Haloperidol Lactate (Haloperidol Lactate Oral Conc 10 Mg/5 Ml Oral.Conc) 5 mg PO TID [facility] Last Admin: 05/01/24 07:51 Dose: 5 mg Lorazepam (Lorazepam 1 Mg Tablet) 1 mg PO Q6H PRN PRN Reason: Anxiety Last Admin: 05/01/24 03:21 Dose: 1 mg Magnesium Hydroxide (Milk Of Magnesia 30 Ml Oral.Susp) 30 ml PO DAILY PRN PRN Reason: Constipation Nicotine Polacrilex (Nicotine Polacrilex 2 Mg Gum) 2 mg BUCCAL Q2H PRN PRN Reason: Nicotine Cravings Propranolol HCl (Propranolol Hcl 10 Mg Tablet) 5 mg PO TID KASIA; Protocol Last Admin: 05/01/24 08:06 Dose: Not Given Trazodone HCl (Trazodone Hcl 50 Mg Tablet) 50 mg PO BEDTIME PRN PRN Reason: Insomnia Last Admin: 04/30/24 19:49 Dose: 50 mg Vitamin D (Cholecalciferol (Vitamin D3) 25 Mcg Tablet) 50 mcg PO DAILY [facility] Last Admin: 05/01/24 07:52 Dose: 50 mcg Allergies Allergies Allergy/AdvReac Type Severity Reaction Status Date / Time lithium Allergy Unknown Verified 01/13/24 18:08 Assessment & Plan Assessment & Plan (1) Schizoaffective disorder, bipolar type: Status: Acute Code(s): F25.0 - Schizoaffective disorder, bipolar type (2) Diabetes mellitus: Status: Acute Code(s): E11.9 - Type 2 diabetes mellitus without complications Assessment and Plan: A1c on 04/28 5.9% (3) Hypertension: Status: Acute Code(s): I10 - Essential (primary) hypertension (4) Pancytopenia: Status: Acute Code(s): D61.818 - Other pancytopenia Plan 03/23 keep same treatment 68 yo from a half-way with chronic psychotic disorder, refusing medication , elevated bp and disorganized and agitated behavior requiring psychiatric hospitalization and treatment not competent to sign cv. 01/14 continue to follow - gave lambs warning today- and he says the [employer]ver [employer] checke[employer] specials will be a she- still refusing medications and quite psychotic takes alot of redirection to settle him poor adls- 01/15- Refuses meds, refuses hospitalist consult-second day File for Section [place] consideration on 01/17. Provide care as he will allow. 01/16: Depakote 250 mg bid Haldol, Lorazepam, Benadryl prn Section 7 to be filed 01/17 Message left for guardian. 01/17: Section Seven filed. . Court scheduled 01/26/24 Pt continues to refuse medicaitons. He is in need of full assist with ADL's and is incontinent. Pt transferred to [facility] this afternoon. 01/19/2024 Patient pending civil commitment loud agitated would not engage in any conversation with this technical writer and editor non informational healing agitated verbally aggressive. Every attempt being made to get a copy of the patient's Servin order unclear why this has been so problematic. Encourage food and fluids 01/19 continue same treatment 01/21/24 Patient labile agitated intrusive close labs ordered in order to per to protect the community patient wandering into patient's rooms intrusive impulsive laying on another person's bed. Often hostile agitated posturing at times we are still pending copy of reported Servin order encourage p.o. compliance 01/22/2024 Patient did require physical hold escort him out of a room that he jumped in other patient's room and on their bed while there were in it. There was no physical harm and the patient did leave the room his markedly impulsive with poor judgment remains on close observation has intermittently taken Haldol liquid pending civil commitment treatment plan there is a question of Servin order 01/22 The patient had been more agitated. We review his Servin order and we are increasing the Abilify up to 15 mg p.o. daily and adding Haldol p.r.n. since it is in his role years order. We needed to give him some p.r.n. at 14:00. 01/23 The patient is grossly psychotic disrobing and sexually disinhibited we are starting Haldol 2 mg p.o. t.i.d. to target psychosis as per court order treatment over objection order. 01/24 The patient remains very agitated and angry disruptive so we are increasing the Haldol from 2 mg to 5 mg p.o. t.i.d. with a backup IM if the patient refused as per court order. 01/25 we have increased the Haldol but still he is very psychotic and restless. Today he refused his blood work. He needed to be physically held twice. 01/26 the patient remains agitated at times but his last IM backup was yesterday. We are going to increase Abilify up to 20 mg daily to target mood lability and psychosis. 01/29/2024: Increase frequency of prn doses from tid to prn q 6mrs. Poor insight and unable to care for self 02/08 pt has not take any of mood stabilizer. continues to have poor sleep, intrusive and combative requiring IM medications, increase haldol 10mg po TID, back up IM. Will add ativan 1mg po TID, also back up IM. Labs show elevated CK 2300, BUN 20, Cr 1.80, unclear baseline Cr as he does have CKD. Discussed with hospitalist Dr. Gama, to give IV fluids and monitor labs tomorrow. LFTs also elevated suspect this is secondary to elevation in CK and should trend down as CK goes down. 02/09 still agitated, creatinine and CPK slightly high as yesterday, he removed his IV line there is no big difference with IV hydration. We are changing his community role years to have more options since it is not working Abilify and Haldol 02/10 3 chemical restraints yesterday. appears more combative, and somewhat more confused. Will decrease amount of benzo and antihistamine given to him as it seems to be backfiring. did discuss with ICU attending, Dr. Whiteside possibility of transferring there but they would like us to try IV depakote and exhaust all resources prior to considering transfer. Pt did take depakote springkle 1000mg with apple sauce with much encourage. 02/11 continue tx. 02/12 continue same treatment 01/14 continue with Abilify and other court order medications, we are Namenda and the court order. 02/14 Team report improvement today with pt having greater comfort and less agitation. [id number] the staff reported that the patient had been less violent in the last 24 hours 02/16 continue tx. will check depakote and ammonia on 02/17 in AM. 02/17 continue regime and plan of care 02/26/2024: Continue current regimen as per court order 03/03 continue tx. lactulose for now as we don't have new ammonia level, but will try to chack labs. 03/16- continue medications, held clonidine patch for today due to low BP. repeat labs. 03/17-continue plan of care 03/18- continue tx 03/19 continue same treatment 03/20 waiting for CBC, basic metabolic panel and ammonia level. Today he nearly choked with a grape. We are going to change his diet to chopped 03/21 patient had a fall and he was assessed. No injuries as per CT scan of head and pelvis. Again he refused again his blood work vital signs within normal limits. 03/22 keep same treatment 03/23 keep same treatment 03 24 24 Continue plan of care Depakote Tegretol Haldol carbamazepine 03/25/2024 Repeat swallowing study ordered he is already on ground diet consider lowering Haldol versus Cogentin generally try to avoid older man 03/26 lowered Haldol to 7.5 p.o. b.i.d. 03/27 start Abilify Maintena 400 IM, later on we stopped it since he was over- sedated. 03/28 monitor vital signs and we will order blood work for tomorrow morning. 03/29 keep same treatment. We are deferring Abilify Maintena since the patient is still sedated and looks slightly delirious. He has refused blood work 03/31 continue current tx. less combative but no improvement in mentation. grossly disorganized and non sensical. 04/01: court ordered meds- team reviewing and optimizing same. 04/02 continue tx. 04/03 keep same treatment, so far he had been more compliant with some of the medications in the last 3 days. 04/04 start Abilify Maintena 400 mg IM 04/05 keep Haldol as prescribed 04/06 keep same treatment 04/08/24 continue current plan, regime 04/09/24 continue plan, CAT pending 04/10 continue same treatment 04/11 keep same treatment 04/12 lowering Haldol to 5 mg p.o. b.i.d. since the patient is over-sedated. 04/13 keep same treatment 04/14 agitated today, jumping around, dive off bed, crawling on all 4's, naked; took meds; now sleeping -floridly psychotic and technical writer and editor thought best to let pt sleep 04/16 keep same treatment 04/17 Abilify Maintena 400 mg today and scheduled next for 30 days. 04/18 change Haldol to 5 mg p.o. t.i.d. with backup IM if he refuses p.o. 04/19 keep same treatment. 04/20 keep same treatment 04/21: verbally aggressive, restless. continue 1:1 and current Tx plan. 04/22: asleep, not easily rousable. restless and irritable last gwen, slept only 4 hours overnight. continue current mgmt. 04/23 add Cogentin 0.5 p.o. b.i.d. small improvement on his psychosis 04/24 continue with same treatment. 04/25 the patient fell again. Blood pressure had been okay even though that he is noncompliant with clonidine patch. We discussed the case with the medical team and they agreed that we can discontinue since he had been noncompliant of clonidine patch since March 09. Starting on propranolol 5 mg p.o. t.i.d. to target akathisia. 04/26 continue tx. 04/27 continue tx. 04/28 reviewing labs- neutropenia and thrombocytopenia worsening Plt 88, ANC 1000, consult to mohamud/onc as plan to continue depakote given that it has been very difficult to stabilize patient. Also, pt with hx of DM, not on any medications. Will obtain A1c. continues to present disorganized, delirium-like presentation. VS are stable, BP on lower side, no need for additional medication for BP. depakote level 100.1. Ammonia level wnl. Will decrease dose of depakote given pancytopenia. 04/29 will stop depakote (one as it may be contributing to pancytopenia, second because it has not shown significant improvement in mentation), continue carbamazepine, pt seen by oncology- appreciate recommendations- 04/30 continue tx. continue to monitor ANC, Plts. oncology/hem following. 05/01 speech and thought process more organized- which is improvement. sexualized remarks, unaware of unsteady gait and weakness. will repeat CBC- continue monitor pancytopenia. Reason for continued inpatient stay Substantial Risk for: inability to function Time Spent With Patient Time: Total time managing care of this patient today ____ minutes.
[2024-05-01 20:24] VITALS: BP 144/70; PULSE 71; RESP 18; TEMP 36.5; O2SAT 99
[2024-05-01] MEDS: traZODone HCL 50 MG TABLET PO (20:51)
[2024-05-01] MEDS: Propranolol HCL 10 MG TABLET 5 MG PO (20:51)
[2024-05-02] MEDS: Propranolol HCL 10 MG TABLET 5 MG PO ×2 (07:46→21:59)
[2024-05-02] MEDS: Benztropine Mesylate 0.5 MG TABLET PO ×2 (07:47→21:59)
[2024-05-02] MEDS: Cholecalciferol (Vitamin D3) 25 MCG TABLET 50 MCG PO (07:47)
[2024-05-02] MEDS: Haloperidol Lactate Oral Conc 10 MG/5 ML ORAL.CONC 5 MG PO ×4 (07:47→21:59)
[2024-05-02] MEDS: carBAMazepine 200 MG TABLET PO ×2 (07:47→21:59)
[2024-05-02 08:00] VITALS: BP 132/64; PULSE 65; RESP 18; TEMP 36.3; O2SAT 98
[2024-05-02 11:02] LABS: Basophils Percent Auto 0.3 % (0-2); Eosinophils Percent Auto 1.3 % (0-4); Hematocrit 36.3 % (42.0-52.0); Hemoglobin 11.9 g/dl (14.0-18.0); Imm Gran Abs Auto 0.02 X10*3/uL (0.00-0.03); Imm Gran Pct Auto 0.7 % (0.0-0.4); Lymphocytes Absolute Auto 1.9 X10*3/uL (1.2-4.9); Lymphocytes Percent Auto 62.5 % (20-40); MANUAL DIFF FLAG SCAN; Mean Corpuscular HGB Conc 32.8 g/dl (31.0-36.0); Mean Corpuscular Hemoglobin 29.5 pg (27.0-33.0); Mean Corpuscular Volume 89.9 fL (80.0-98.0); Mean Platelet Volume 10.3 fL (9.4-12.4); Monocytes Absolute Auto 0.3 X10*3/uL (0.1-1.2); Monocytes Percent Auto 9.5 % (2-11); Neutrophils Absolute Auto 0.8 x10*3/uL (2.0-8.3); Neutrophils Percent Auto 25.7 % (45-73); Platelet Count 116 X10*3/uL (160-400); Red Blood Count 4.04 X10*6/uL (4.60-5.80); Red Cell Distribution Width 16.4 % (11.0-16.0); SCAN SMEAR FLAG 1
[2024-05-02] MEDS: LORazepam 1 MG TABLET PO ×2 (11:13→21:59)
[2024-05-02 11:37] LABS: SLIDE REVIEW VERIFIED
--- NOTE | 2024-05-02 11:39 | HO.PSYCHPN ---
Subjective Subjective Date of Service: 05/02/24 Reason For Visit: Schizoaffective disorder Subjective Notes: Conditional Voluntary Interim History: Pt less agiated more coherent of thought able to talk about his life in [place] has been taking medication more regularly Medication Compliance: Intermittent Mental Status Exam Mental Status Exam Narrative: Appearance: no shirt and taking hospital gown off, poor hygiene, in NAD Behavior: cooperative Psychomotor: no agitation or retardation Speech: less mumbles, regular rate/rhythm/volume, spontaneous. TP: more linear, less derailment TC: regarding his home in [place] Mood: good Affect: congruent SI: denies HI: denies VH/AH: internally preoccupied Delusions: sexualized remarks Insight/judgment: impaired x 2. Memory/cog: alert, Diagnostics Vital Signs (24Hr): Vital Signs - 24 hr 05/01/24 20:24 05/02/24 08:00 Temperature 97.7 F 97.3 F Pulse Rate 71 65 Respiratory Rate 18 18 Blood Pressure 144/70 H 132/64 Pulse Oximetry 99 98 Oxygen Delivery Method Room Air Room Air BMI result Body Mass Index 25.1 Labs 05/02/24 10:59 04/28/24 08:52 Labs: Laboratory Results - last 48 hr 04/29/24 04/29/24 05/02/24 00:30 11:52 10:59 WBC 3.0 L RBC 4.04 L Hgb 11.9 L Hct 36.3 L MCV 89.9 MCH 29.5 MCHC 32.8 RDW 16.4 H Plt Count 116 L MPV 10.3 Immature Gran % (Auto) 0.7 H Neut % (Auto) 25.7 L Lymph % (Auto) 62.5 H Centre % (Auto) 9.5 Eos % (Auto) 1.3 Baso % (Auto) 0.3 Lymph # (Auto) 1.9 Centre # (Auto) 0.3 Eos # (Auto) 0.0 Baso # (Auto) 0.0 Abs Immat Gran (auto) 0.02 Absolute Neuts (auto) 0.8 L Absolute Nucleated RBC 0.000 Nucleated RBC % (auto) 0.0 Smear Tech's Comments VERIFIED IgG Total 1030 IgA Total 205 IgM 53 DIGNA Interpretation SEE NOTE Hep B Core IgM Ab NON-REACTIVE Imaging Radiology Impressions: ITS Impressions Chest X-Ray 03/20/24 08:33 IMPRESSION: Extremely limited exam. Only lateral views could be obtained. Suspect basilar airspace opacity, possibly pneumonia. Electronically signed by: Fortino Dumont MD 03/20/2024 10:10 AM EST RP Cervical Spine CT 03/21/24 11:18 IMPRESSION: 1. Allowing for suboptimal positioning, there is no CT evidence of acute cervical spine fracture or injury. 2. Degenerative changes with bulky ventral osteophytes spanning C4-C6, appearance in keeping with DISH. Electronically signed by: Fortino Dumont MD 03/21/2024 12:01 PM EST RP Head CT 03/21/24 11:18 IMPRESSION: 1. No acute intracranial abnormality. No acute fractures seen. 2. Stable chronic findings as discussed. Electronically signed by: Fortino Dumont MD 03/21/2024 11:54 AM EST RP Pelvis CT 03/21/24 11:18 IMPRESSION: 1. No acute bony abnormalities. No fractures. 2. Constipation with a large amount of stool in the rectum and sigmoid colon. 3. Mild thickening of the urinary bladder wall despite underdistention, nonspecific. Differential includes the detrusor hypertrophy, neurogenic bladder, or possibly cystitis. Electronically signed by: Fortino Dumont MD 03/21/2024 12:09 PM EST RP Head CT 03/28/24 09:37 IMPRESSION: No acute fracture, bony calvarium. No acute intracranial hemorrhage. Small vessel occlusive disease. Bifrontal bitemporal lobe atrophy. Electronically signed by: Juan Corrigan MD 03/28/2024 10:19 AM EST RP Head CT 04/25/24 12:22 IMPRESSION: No acute intracranial process seen. Electronically signed by: Ritchie Marte MD 04/25/2024 01:01 PM EST RP Medications Medications Current Medications Acetaminophen (Acetaminophen 325 Mg Tablet) 650 mg PO Q6H PRN PRN Reason: Headache/Pain Mild Scale (1-3) Last Admin: 01/17/24 23:53 Dose: 325 mg Al Hydroxide/Mg Hydroxide (Magnesium Hydrox/Alum Hydrox 30 Ml Oral.Susp) 30 ml PO Q6H PRN PRN Reason: Heartburn/Nausea Aripiprazole (Aripiprazole Er 400 Mg Suser.Syr) 400 mg IM Q30D [facility] Aspirin (Aspirin 81 Mg Tab.Chew) 81 mg PO DAILY [facility] Last Admin: 04/23/24 08:34 Dose: 81 mg Benztropine Mesylate (Benztropine Mesylate 0.5 Mg Tablet) 0.5 mg PO BID [facility] Last Admin: 05/02/24 07:47 Dose: 0.5 mg Carbamazepine (Carbamazepine 200 Mg Tablet) 200 mg PO BID [facility] Last Admin: 05/02/24 07:47 Dose: 200 mg Ferrous Sulfate (Ferrous Sulfate 324 Mg Tablet.Dr) 324 mg PO BID [facility] Last Admin: 05/02/24 08:16 Dose: Not Given Haloperidol Lactate (Haloperidol Lactate Oral Conc 10 Mg/5 Ml Oral.Conc) 5 mg PO Q6H PRN PRN Reason: Psychosis or severe agitation Last Admin: 05/01/24 03:21 Dose: 5 mg Haloperidol Lactate (Haloperidol Lactate 5 Mg/Ml Vial) 5 mg IM TID PRN PRN Reason: Refusal of Court PO Haldol Haloperidol Lactate (Haloperidol Lactate Oral Conc 10 Mg/5 Ml Oral.Conc) 5 mg PO TID [facility] Last Admin: 05/02/24 07:47 Dose: 5 mg [place] Carbonate ([place] Carbonate 300 Mg Tablet) 150 mg PO BID [facility] Lorazepam (Lorazepam 1 Mg Tablet) 1 mg PO Q6H PRN PRN Reason: Anxiety Last Admin: 05/01/24 20:51 Dose: 1 mg Magnesium Hydroxide (Milk Of Magnesia 30 Ml Oral.Susp) 30 ml PO DAILY PRN PRN Reason: Constipation Nicotine Polacrilex (Nicotine Polacrilex 2 Mg Gum) 2 mg BUCCAL Q2H PRN PRN Reason: Nicotine Cravings Propranolol HCl (Propranolol Hcl 10 Mg Tablet) 5 mg PO TID [facility]; Protocol Last Admin: 05/02/24 07:46 Dose: 5 mg Trazodone HCl (Trazodone Hcl 50 Mg Tablet) 50 mg PO BEDTIME PRN PRN Reason: Insomnia Last Admin: 05/01/24 20:51 Dose: 50 mg Vitamin D (Cholecalciferol (Vitamin D3) 25 Mcg Tablet) 50 mcg PO DAILY [facility] Last Admin: 05/02/24 07:47 Dose: 50 mcg Allergies Allergies Allergy/AdvReac Type Severity Reaction Status Date / Time lithium Allergy Unknown Verified 01/13/24 18:08 Assessment & Plan Assessment & Plan (1) Schizoaffective disorder, bipolar type: Status: Acute Code(s): F25.0 - Schizoaffective disorder, bipolar type (2) Diabetes mellitus: Status: Acute Code(s): E11.9 - Type 2 diabetes mellitus without complications Assessment and Plan: A1c on 04/28 5.9% (3) Hypertension: Status: Acute Code(s): I10 - Essential (primary) hypertension (4) Pancytopenia: Status: Acute Code(s): D61.818 - Other pancytopenia Plan 03/23 keep same treatment 68 yo from a [facility] with chronic psychotic disorder, refusing medication , elevated bp and disorganized and agitated behavior requiring psychiatric hospitalization and treatment not competent to sign cv. 01/14 continue to follow - gave lambs warning today- and he says the brushing operator will be a she- still refusing medications and quite psychotic takes alot of redirection to settle him poor adls- 01/15- Refuses meds, refuses hospitalist consult-second day File for Section [place] consideration on 01/17. Provide care as he will allow. 01/16: Depakote 250 mg bid Haldol, Lorazepam, Benadryl prn Section 7 to be filed 01/17 Message left for guardian. 01/17: Section [address] filed. . Court scheduled 01/26/24 Pt continues to refuse medicaitons. He is in need of full assist with ADL's and is incontinent. Pt transferred to [facility] this afternoon. 01/19/2024 Patient pending civil commitment loud agitated would not engage in any conversation with this customs entry writer non informational healing agitated verbally aggressive. Every attempt being made to get a copy of the patient's Servin order unclear why this has been so problematic. Encourage food and fluids 01/19 continue same treatment 01/21/24 Patient labile agitated intrusive close labs ordered in order to per to protect the community patient wandering into patient's rooms intrusive impulsive laying on another person's bed. Often hostile agitated posturing at times we are still pending copy of reported Servin order encourage p.o. compliance 01/22/2024 Patient did require physical hold escort him out of a room that he jumped in other patient's room and on their bed while there were in it. There was no physical harm and the patient did leave the room his markedly impulsive with poor judgment remains on close observation has intermittently taken Haldol liquid pending civil commitment treatment plan there is a question of Servin order 01/22 The patient had been more agitated. We review his Servin order and we are increasing the Abilify up to 15 mg p.o. daily and adding Haldol p.r.n. since it is in his role years order. We needed to give him some p.r.n. at 14:00. 01/23 The patient is grossly psychotic disrobing and sexually disinhibited we are starting Haldol 2 mg p.o. t.i.d. to target psychosis as per court order treatment over objection order. 01/24 The patient remains very agitated and angry disruptive so we are increasing the Haldol from 2 mg to 5 mg p.o. t.i.d. with a backup IM if the patient refused as per court order. 01/25 we have increased the Haldol but still he is very psychotic and restless. Today he refused his blood work. He needed to be physically held twice. 01/26 the patient remains agitated at times but his last IM backup was yesterday. We are going to increase Abilify up to 20 mg daily to target mood lability and psychosis. 01/29/2024: Increase frequency of prn doses from tid to prn q 6mrs. Poor insight and unable to care for self 02/08 pt has not take any of mood stabilizer. continues to have poor sleep, intrusive and combative requiring IM medications, increase haldol 10mg po TID, back up IM. Will add ativan 1mg po TID, also back up IM. Labs show elevated CK 2300, BUN 20, Cr 1.80, unclear baseline Cr as he does have CKD. Discussed with hospitalist Dr. Gama, to give IV fluids and monitor labs tomorrow. LFTs also elevated suspect this is secondary to elevation in CK and should trend down as CK goes down. 02/09 still agitated, creatinine and CPK slightly high as yesterday, he removed his IV line there is no big difference with IV hydration. We are changing his community role years to have more options since it is not working Abilify and Haldol 02/10 3 chemical restraints yesterday. appears more combative, and somewhat more confused. Will decrease amount of benzo and antihistamine given to him as it seems to be backfiring. did discuss with ICU attending, Dr. Whiteside possibility of transferring there but they would like us to try IV depakote and exhaust all resources prior to considering transfer. Pt did take depakote springkle 1000mg with apple sauce with much encourage. 02/11 continue tx. 02/12 continue same treatment 01/14 continue with Abilify and other court order medications, we are Nam[place] and the court order. 02/14 Team report improvement today with pt having greater comfort and less agitation. [id number] the staff reported that the patient had been less violent in the last 24 hours 02/16 continue tx. will check depakote and ammonia on 02/17 in AM. 02/17 continue regime and plan of care 02/26/2024: Continue current regimen as per court order 03/03 continue tx. lactulose for now as we don't have new ammonia level, but will try to chack labs. 03/16- continue medications, held clonidine patch for today due to low BP. repeat labs. 03/17-continue plan of care 03/18- continue tx 03/19 continue same treatment 03/20 waiting for CBC, basic metabolic panel and ammonia level. Today he nearly choked with a grape. We are going to change his diet to chopped 03/21 patient had a fall and he was assessed. No injuries as per CT scan of head and pelvis. Again he refused again his blood work vital signs within normal limits. 03/22 keep same treatment 03/23 keep same treatment 03 24 24 Continue plan of care Depakote Tegretol Haldol carbamazepine 03/25/2024 Repeat swallowing study ordered he is already on ground diet consider lowering Haldol versus Cogentin generally try to avoid older man 03/26 lowered Haldol to 7.5 p.o. b.i.d. 03/27 start Abilify Maintena 400 IM, later on we stopped it since he was over-sedated. 03/28 monitor vital signs and we will order blood work for tomorrow morning. 03/29 keep same treatment. We are deferring Abilify Maintena since the patient is still sedated and looks slightly delirious. He has refused blood work 03/31 continue current tx. less combative but no improvement in mentation. grossly disorganized and non sensical. 04/01: court ordered meds- team reviewing and optimizing same. 04/02 continue tx. 04/03 keep same treatment, so far he had been more compliant with some of the medications in the last 3 days. 04/04 start Abilify Maintena 400 mg IM 04/05 keep Haldol as prescribed 04/06 keep same treatment 04/08/24 continue current plan, regime 04/09/24 continue plan, CAT pending 04/10 continue same treatment 04/11 keep same treatment 04/12 lowering Haldol to 5 mg p.o. b.i.d. since the patient is over-sedated. 04/13 keep same treatment 04/14 agitated today, jumping around, dive off bed, crawling on all 4's, naked; took meds; now sleeping -floridly psychotic and customs entry writer thought best to let pt sleep 04/16 keep same treatment 04/17 Abilify Maintena 400 mg today and scheduled next for 30 days. 04/18 change Haldol to 5 mg p.o. t.i.d. with backup IM if he refuses p.o. 04/19 keep same treatment. 04/20 keep same treatment 04/21: verbally aggressive, restless. continue 1:1 and current Tx plan. 04/22: asleep, not easily rousable. restless and irritable last gwen, slept only 4 hours overnight. continue current mgmt. 04/23 add Cogentin 0.5 p.o. b.i.d. small improvement on his psychosis 04/24 continue with same treatment. 04/25 the patient fell again. Blood pressure had been okay even though that he is noncompliant with clonidine patch. We discussed the case with the medical team and they agreed that we can discontinue since he had been noncompliant of clonidine patch since March 09. Starting on propranolol 5 mg p.o. t.i.d. to target akathisia. 04/26 continue tx. 04/27 continue tx. 04/28 reviewing labs- neutropenia and thrombocytopenia worsening Plt 88, ANC 1000, consult to mohamud/onc as plan to continue depakote given that it has been very difficult to stabilize patient. Also, pt with hx of DM, not on any medications. Will obtain A1c. continues to present disorganized, delirium-like presentation. VS are stable, BP on lower side, no need for additional medication for BP. depakote level 100.1. Ammonia level wnl. Will decrease dose of depakote given pancytopenia. 04/29 will stop depakote (one as it may be contributing to pancytopenia, second because it has not shown significant improvement in mentation), continue carbamazepine, pt seen by oncology- appreciate recommendations- 04/30 continue tx. continue to monitor ANC, Plts. oncology/hem following. 05/01 speech and thought process more organized- which is improvement. sexualized remarks, unaware of unsteady gait and weakness. will repeat CBC- continue monitor pancytopenia. 05/02/24 On lithium monitor pancytopenia wbc 3.0 less confused Reason for continued inpatient stay Substantial Risk for: harm to others, inability to function and rapid decompensation Time Spent With Patient Time: Total time managing care of this patient today ____ minutes.
--- NOTE | 2024-05-02 12:51 | PC.NURSE ---
Patient declined labs to be drawn, Jarad GILMORE, and Guardian notified, he was put on physical hold at 11:54 am to 11:57am to have it done.
[2024-05-02 15:29] LABS: Anti Nuclear Antibody Screen NEGATIVE (NEGATIVE)
[2024-05-02 20:00] VITALS: BP 131/58; PULSE 63; RESP 18; TEMP 36.2; O2SAT 96
[2024-05-02] MEDS: traZODone HCL 50 MG TABLET PO (21:59)
[2024-05-02] MEDS: Lithium Carbonate 300 MG TABLET 150 MG PO (21:59)
[2024-05-03] MEDS: Haloperidol Lactate 5 MG/ML VIAL IM (08:55)
[2024-05-03] MEDS: LORazepam 1 MG TABLET PO ×2 (10:25→16:30)
[2024-05-03] MEDS: Benztropine Mesylate 0.5 MG TABLET PO ×2 (10:25→22:32)
[2024-05-03] MEDS: Haloperidol Lactate Oral Conc 10 MG/5 ML ORAL.CONC 5 MG PO ×3 (10:25→21:00)
[2024-05-03] MEDS: carBAMazepine 200 MG TABLET PO ×3 (10:25→22:34)
[2024-05-03 20:00] VITALS: RESP 18
--- NOTE | 2024-05-03 22:01 | P.PNPSI_ITS ---
Subjective Subjective Date of Service: 05/03/24 Reason For Visit: Schizoaffective disorder Subjective Notes: Conditional Voluntary Interim History: pt has been more sexualized aggressive disinhibited Mental Status Exam Mental Status Exam Narrative: Pt minimally dressed more aggressive verbally sexually preoccupied minimal insight poor impulse control Diagnostics Vital Signs (24Hr): BMI result Body Mass Index 25.1 Labs 05/02/24 10:59 04/28/24 08:52 Labs: Laboratory Results - last 48 hr 04/29/24 05/02/24 11:52 10:59 WBC 3.0 L RBC 4.04 L Hgb 11.9 L Hct 36.3 L MCV 89.9 MCH 29.5 MCHC 32.8 RDW 16.4 H Plt Count 116 L MPV 10.3 Immature Gran % (Auto) 0.7 H Neut % (Auto) 25.7 L Lymph % (Auto) 62.5 H [place] % (Auto) 9.5 Eos % (Auto) 1.3 Baso % (Auto) 0.3 Lymph # (Auto) 1.9 [place] # (Auto) 0.3 Eos # (Auto) 0.0 Baso # (Auto) 0.0 Abs Immat Gran (auto) 0.02 Absolute Neuts (auto) 0.8 L Absolute Nucleated RBC 0.000 Nucleated RBC % (auto) 0.0 Smear Tech's Comments VERIFIED JAYLA Screen NEGATIVE JAYLA Titer TNP JAYLA Titer 2 TNP JAYLA Titer 3 TNP JAYLA Pattern TNP JAYLA Pattern 2 TNP JAYLA Pattern 3 TNP Imaging Radiology Impressions: ITS Impressions Chest X-Ray 03/20/24 08:33 IMPRESSION: Extremely limited exam. Only lateral views could be obtained. Suspect basilar airspace opacity, possibly pneumonia. Electronically signed by: Fortino Dumont MD 03/20/2024 10:10 AM EST RP Cervical Spine CT 03/21/24 11:18 IMPRESSION: 1. Allowing for suboptimal positioning, there is no CT evidence of acute cervical spine fracture or injury. 2. Degenerative changes with bulky ventral osteophytes spanning C4-C6, appearance in keeping with DISH. Electronically signed by: Fortino Dumont MD 03/21/2024 12:01 PM EST RP Head CT 03/21/24 11:18 IMPRESSION: 1. No acute intracranial abnormality. No acute fractures seen. 2. Stable chronic findings as discussed. Electronically signed by: Fortino Dumont MD 03/21/2024 11:54 AM EST RP Pelvis CT 03/21/24 11:18 IMPRESSION: 1. No acute bony abnormalities. No fractures. 2. Constipation with a large amount of stool in the rectum and sigmoid colon. 3. Mild thickening of the urinary bladder wall despite underdistention, nonspecific. Differential includes the detrusor hypertrophy, neurogenic bladder, or possibly cystitis. Electronically signed by: Fortino Dumont MD 03/21/2024 12:09 PM EST RP Head CT 03/28/24 09:37 IMPRESSION: No acute fracture, bony calvarium. No acute intracranial hemorrhage. Small vessel occlusive disease. Bifrontal bitemporal lobe atrophy. Electronically signed by: Juan Corrigan MD 03/28/2024 10:19 AM EST RP Head CT 04/25/24 12:22 IMPRESSION: No acute intracranial process seen. Electronically signed by: Ritchie Marte MD 04/25/2024 01:01 PM EST RP Medications Medications Current Medications Acetaminophen (Acetaminophen 325 Mg Tablet) 650 mg PO Q6H PRN PRN Reason: Headache/Pain Mild Scale (1-3) Last Admin: 01/17/24 23:53 Dose: 325 mg Al Hydroxide/Mg Hydroxide (Magnesium Hydrox/Alum Hydrox 30 Ml Oral.Susp) 30 ml PO Q6H PRN PRN Reason: Heartburn/Nausea Aripiprazole (Aripiprazole Er 400 Mg Suser.Syr) 400 mg IM Q30D [facility] Aspirin (Aspirin 81 Mg Tab.Chew) 81 mg PO DAILY [facility] Last Admin: 04/23/24 08:34 Dose: 81 mg Benztropine Mesylate (Benztropine Mesylate 0.5 Mg Tablet) 0.5 mg PO BID [facility] Last Admin: 05/03/24 10:25 Dose: 0.5 mg Carbamazepine (Carbamazepine 200 Mg Tablet) 200 mg PO BID [facility] Last Admin: 05/03/24 10:25 Dose: 200 mg Ferrous Sulfate (Ferrous Sulfate 324 Mg Tablet.Dr) 324 mg PO BID [facility] Last Admin: 05/03/24 09:22 Dose: Not Given Haloperidol Lactate (Haloperidol Lactate Oral Conc 10 Mg/5 Ml Oral.Conc) 5 mg PO Q6H PRN PRN Reason: Psychosis or severe agitation Last Admin: 05/02/24 17:47 Dose: 5 mg Haloperidol Lactate (Haloperidol Lactate 5 Mg/Ml Vial) 5 mg IM TID PRN PRN Reason: Refusal of Court PO Haldol Last Admin: 05/03/24 08:55 Dose: 5 mg Haloperidol Lactate (Haloperidol Lactate Oral Conc 10 Mg/5 Ml Oral.Conc) 5 mg PO TID [facility] Last Admin: 05/03/24 14:41 Dose: 5 mg [place] Carbonate ([place] Carbonate 300 Mg Tablet) 150 mg PO BID [facility] Last Admin: 05/03/24 09:22 Dose: Not Given Lorazepam (Lorazepam 1 Mg Tablet) 1 mg PO Q6H PRN PRN Reason: Anxiety Last Admin: 05/03/24 16:30 Dose: 1 mg Magnesium Hydroxide (Milk Of Magnesia 30 Ml Oral.Susp) 30 ml PO DAILY PRN PRN Reason: Constipation Nicotine Polacrilex (Nicotine Polacrilex 2 Mg Gum) 2 mg BUCCAL Q2H PRN PRN Reason: Nicotine Cravings Propranolol HCl (Propranolol Hcl 10 Mg Tablet) 5 mg PO TID [facility]; Protocol Last Admin: 05/03/24 14:54 Dose: Not Given Trazodone HCl (Trazodone Hcl 50 Mg Tablet) 50 mg PO BEDTIME PRN PRN Reason: Insomnia Last Admin: 05/02/24 21:59 Dose: 50 mg Vitamin D (Cholecalciferol (Vitamin D3) 25 Mcg Tablet) 50 mcg PO DAILY [facility] Last Admin: 05/03/24 09:22 Dose: Not Given Allergies Allergies Allergy/AdvReac Type Severity Reaction Status Date / Time lithium Allergy Unknown Verified 01/13/24 18:08 Assessment & Plan Assessment & Plan (1) Schizoaffective disorder, bipolar type: Status: Acute Code(s): F25.0 - Schizoaffective disorder, bipolar type (2) Diabetes mellitus: Status: Acute Code(s): E11.9 - Type 2 diabetes mellitus without complications Assessment and Plan: A1c on 04/28 5.9% (3) Hypertension: Status: Acute Code(s): I10 - Essential (primary) hypertension (4) Pancytopenia: Status: Acute Code(s): D61.818 - Other pancytopenia Plan 03/23 keep same treatment 68 yo from a [facility] with chronic psychotic disorder, refusing medication , elevated bp and disorganized and agitated behavior requiring psychiatric hospitalization and treatment not competent to sign cv. 01/14 continue to follow - gave lambs warning today- and he says the deputy brand inspector will be a she- still refusing medications and quite psychotic takes alot of redirection to settle him poor adls- 01/15- Refuses meds, refuses hospitalist consult-second day File for Section [place] consideration on 01/17. Provide care as he will allow. 01/16: Depakote 250 mg bid Haldol, Lorazepam, Benadryl prn Section 7 to be filed 01/17 Message left for guardian. 01/17: Section [address] filed. . Court scheduled 01/26/24 Pt continues to refuse medicaitons. He is in need of full assist with ADL's and is incontinent. Pt transferred to [facility] this afternoon. 01/19/2024 Patient pending civil commitment loud agitated would not engage in any conversation with this video games storywriter non informational healing agitated verbally aggressive. Every attempt being made to get a copy of the patient's Servin order unclear why this has been so problematic. Encourage food and fluids 01/19 continue same treatment 01/21/24 Patient labile agitated intrusive close labs ordered in order to per to protect the community patient wandering into patient's rooms intrusive impulsive laying on another person's bed. Often hostile agitated posturing at times we are still pending copy of reported Servin order encourage p.o. compliance 01/22/2024 Patient did require physical hold escort him out of a room that he jumped in other patient's room and on their bed while there were in it. There was no physical harm and the patient did leave the room his markedly impulsive with poor judgment remains on close observation has intermittently taken Haldol liquid pending civil commitment treatment plan there is a question of Servin order 01/22 The patient had been more agitated. We review his Servin order and we are increasing the Abilify up to 15 mg p.o. daily and adding Haldol p.r.n. since it is in his role years order. We needed to give him some p.r.n. at 14:00. 01/23 The patient is grossly psychotic disrobing and sexually disinhibited we are starting Haldol 2 mg p.o. t.i.d. to target psychosis as per court order treatment over objection order. 01/24 The patient remains very agitated and angry disruptive so we are increasing the Haldol from 2 mg to 5 mg p.o. t.i.d. with a backup IM if the patient refused as per court order. 01/25 we have increased the Haldol but still he is very psychotic and restless. Today he refused his blood work. He needed to be physically held twice. 01/26 the patient remains agitated at times but his last IM backup was yesterday. We are going to increase Abilify up to 20 mg daily to target mood lability and psychosis. 01/29/2024: Increase frequency of prn doses from tid to prn q 6mrs. Poor insight and unable to care for self 02/08 pt has not take any of mood stabilizer. continues to have poor sleep, intrusive and combative requiring IM medications, increase haldol 10mg po TID, back up IM. Will add ativan 1mg po TID, also back up IM. Labs show elevated CK 2300, BUN 20, Cr 1.80, unclear baseline Cr as he does have CKD. Discussed with hospitalist Dr. Gama, to give IV fluids and monitor labs tomorrow. LFTs also elevated suspect this is secondary to elevation in CK and should trend down as CK goes down. 02/09 still agitated, creatinine and CPK slightly high as yesterday, he removed his IV line there is no big difference with IV hydration. We are changing his community role years to have more options since it is not working Abilify and Haldol 02/10 3 chemical restraints yesterday. appears more combative, and somewhat more confused. Will decrease amount of benzo and antihistamine given to him as it seems to be backfiring. did discuss with ICU attending, Dr. Whiteside possibility of transferring there but they would like us to try IV depakote and exhaust all resources prior to considering transfer. Pt did take depakote springkle 1000mg with apple sauce with much encourage. 02/11 continue tx. 02/12 continue same treatment 01/14 continue with Abilify and other court order medications, we are Nam[place] and the court order. 02/14 Team report improvement today with pt having greater comfort and less agitation. [id number] the staff reported that the patient had been less violent in the last 24 hours 02/16 continue tx. will check depakote and ammonia on 02/17 in AM. 02/17 continue regime and plan of care 02/26/2024: Continue current regimen as per court order 03/03 continue tx. lactulose for now as we don't have new ammonia level, but will try to chack labs. 03/16- continue medications, held clonidine patch for today due to low BP. repeat labs. 03/17-continue plan of care 03/18- continue tx 03/19 continue same treatment 03/20 waiting for CBC, basic metabolic panel and ammonia level. Today he nearly choked with a grape. We are going to change his diet to chopped 03/21 patient had a fall and he was assessed. No injuries as per CT scan of head and pelvis. Again he refused again his blood work vital signs within normal limits. 03/22 keep same treatment 03/23 keep same treatment 03 24 24 Continue plan of care Depakote Tegretol Haldol carbamazepine 03/25/2024 Repeat swallowing study ordered he is already on ground diet consider lowering Haldol versus Cogentin generally try to avoid older man 03/26 lowered Haldol to 7.5 p.o. b.i.d. 03/27 start Abilify Maintena 400 IM, later on we stopped it since he was over- sedated. 03/28 monitor vital signs and we will order blood work for tomorrow morning. 03/29 keep same treatment. We are deferring Abilify Maintena since the patient is still sedated and looks slightly delirious. He has refused blood work 03/31 continue current tx. less combative but no improvement in mentation. grossly disorganized and non sensical. 04/01: court ordered meds- team reviewing and optimizing same. 04/02 continue tx. 04/03 keep same treatment, so far he had been more compliant with some of the medications in the last 3 days. 04/04 start Abilify Maintena 400 mg IM 04/05 keep Haldol as prescribed 04/06 keep same treatment 04/08/24 continue current plan, regime 04/09/24 continue plan, CAT pending 04/10 continue same treatment 04/11 keep same treatment 04/12 lowering Haldol to 5 mg p.o. b.i.d. since the patient is over-sedated. 04/13 keep same treatment 04/14 agitated today, jumping around, dive off bed, crawling on all 4's, naked; took meds; now sleeping -floridly psychotic and video games storywriter thought best to let pt sleep 04/16 keep same treatment 04/17 Abilify Maintena 400 mg today and scheduled next for 30 days. 04/18 change Haldol to 5 mg p.o. t.i.d. with backup IM if he refuses p.o. 04/19 keep same treatment. 04/20 keep same treatment 04/21: verbally aggressive, restless. continue 1:1 and current Tx plan. 04/22: asleep, not easily rousable. restless and irritable last gwen, slept only 4 hours overnight. continue current mgmt. 04/23 add Cogentin 0.5 p.o. b.i.d. small improvement on his psychosis 04/24 continue with same treatment. 04/25 the patient fell again. Blood pressure had been okay even though that he is noncompliant with clonidine patch. We discussed the case with the medical team and they agreed that we can discontinue since he had been noncompliant of clonidine patch since March 09. Starting on propranolol 5 mg p.o. t.i.d. to target akathisia. 04/26 continue tx. 04/27 continue tx. 04/28 reviewing labs- neutropenia and thrombocytopenia worsening Plt 88, ANC 1000, consult to mohamud/onc as plan to continue depakote given that it has been very difficult to stabilize patient. Also, pt with hx of DM, not on any medications. Will obtain A1c. continues to present disorganized, delirium-like presentation. VS are stable, BP on lower side, no need for additional medication for BP. depakote level 100.1. Ammonia level wnl. Will decrease dose of depakote given pancytopenia. 04/29 will stop depakote (one as it may be contributing to pancytopenia, second because it has not shown significant improvement in mentation), continue carbamazepine, pt seen by oncology- appreciate recommendations- 04/30 continue tx. continue to monitor ANC, Plts. oncology/hem following. 05/01 speech and thought process more organized- which is improvement. sexualized remarks, unaware of unsteady gait and weakness. will repeat CBC- continue monitor pancytopenia. 05/02/24 On lithium monitor pancytopenia wbc 3.0 less confused 05/03/24 Increase lithium 300 bid monitor resoponse watch for confusion Reason for continued inpatient stay Substantial Risk for: harm to others and rapid decompensation Time Spent With Patient Time: Total time managing care of this patient today ____ minutes.
[2024-05-03] MEDS: Lithium Carbonate 300 MG TABLET PO ×2 (22:35→22:37)
[2024-05-04] MEDS: Haloperidol Lactate Oral Conc 10 MG/5 ML ORAL.CONC 5 MG PO ×4 (01:27→20:17)
[2024-05-04] MEDS: traZODone HCL 50 MG TABLET PO ×2 (01:29→20:25)
[2024-05-04] MEDS: LORazepam 1 MG TABLET PO ×3 (01:29→20:25)
[2024-05-04 08:00] VITALS: RESP 18
[2024-05-04] MEDS: Benztropine Mesylate 0.5 MG TABLET PO ×2 (09:29→20:18)
[2024-05-04] MEDS: carBAMazepine 200 MG TABLET PO ×2 (09:30→20:18)
--- NOTE | 2024-05-04 10:49 | P.PNPSI_ITS ---
Subjective Subjective Date of Service: 05/04/24 Reason For Visit: Schizoaffective disorder Subjective Notes: Section 7 Interim History: Pt slept through the night. His thought process is more organized,however, intermittently verbally hostile and inappropriately making sexual remarks to staff. He says to this literary writer what do you want?! are you offering your pussy? then pt asks this literary writer to leave. Hominy increased yesterday. Will continue to monitor renal function as well as pancytopenia. Review of Systems Review of Systems s/p fall Yes Unobtainable due to mental status Diagnostics Vital Signs (24Hr): Vital Signs - 24 hr 05/03/24 20:00 Respiratory Rate 18 BMI result Body Mass Index 25.1 Labs 05/02/24 10:59 04/28/24 08:52 Labs: Laboratory Results - last 48 hr 04/29/24 05/02/24 11:52 10:59 WBC 3.0 L RBC 4.04 L Hgb 11.9 L Hct 36.3 L MCV 89.9 MCH 29.5 MCHC 32.8 RDW 16.4 H Plt Count 116 L MPV 10.3 Immature Gran % (Auto) 0.7 H Neut % (Auto) 25.7 L Lymph % (Auto) 62.5 H Porter % (Auto) 9.5 Eos % (Auto) 1.3 Baso % (Auto) 0.3 Lymph # (Auto) 1.9 Porter # (Auto) 0.3 Eos # (Auto) 0.0 Baso # (Auto) 0.0 Abs Immat Gran (auto) 0.02 Absolute Neuts (auto) 0.8 L Absolute Nucleated RBC 0.000 Nucleated RBC % (auto) 0.0 Smear Tech's Comments VERIFIED JAYLA Screen NEGATIVE JAYLA Titer TNP JAYLA Titer 2 TNP JAYLA Titer 3 TNP JAYLA Pattern TNP JAYLA Pattern 2 TNP JAYLA Pattern 3 TNP Imaging Radiology Impressions: ITS Impressions Chest X-Ray 03/20/24 08:33 IMPRESSION: Extremely limited exam. Only lateral views could be obtained. Suspect basilar airspace opacity, possibly pneumonia. Electronically signed by: Foritno Dumont MD 03/20/2024 10:10 AM [facility] Cervical Spine CT 03/21/24 11:18 IMPRESSION: 1. Allowing for suboptimal positioning, there is no CT evidence of acute cervical spine fracture or injury. 2. Degenerative changes with bulky ventral osteophytes spanning C4-C6, appearance in keeping with DISH. Electronically signed by: Fortino Dumont MD 03/21/2024 12:01 PM EST RP Head CT 03/21/24 11:18 IMPRESSION: 1. No acute intracranial abnormality. No acute fractures seen. 2. Stable chronic findings as discussed. Electronically signed by: Fortino Dumont MD 03/21/2024 11:54 AM EST RP Pelvis CT 03/21/24 11:18 IMPRESSION: 1. No acute bony abnormalities. No fractures. 2. Constipation with a large amount of stool in the rectum and sigmoid colon. 3. Mild thickening of the urinary bladder wall despite underdistention, nonspecific. Differential includes the detrusor hypertrophy, neurogenic bladder, or possibly cystitis. Electronically signed by: Fortino Dumont MD 03/21/2024 12:09 PM EST RP Head CT 03/28/24 09:37 IMPRESSION: No acute fracture, bony calvarium. No acute intracranial hemorrhage. Small vessel occlusive disease. Bifrontal bitemporal lobe atrophy. Electronically signed by: Juan Corrigan MD 03/28/2024 10:19 AM EST RP Head CT 04/25/24 12:22 IMPRESSION: No acute intracranial process seen. Electronically signed by: Ritchie Marte MD 04/25/2024 01:01 PM EST RP Medications Medications Current Medications Acetaminophen (Acetaminophen 325 Mg Tablet) 650 mg PO Q6H PRN PRN Reason: Headache/Pain Mild Scale (1-3) Last Admin: 01/17/24 23:53 Dose: 325 mg Al Hydroxide/Mg Hydroxide (Magnesium Hydrox/Alum Hydrox 30 Ml Oral.Susp) 30 ml PO Q6H PRN PRN Reason: Heartburn/Nausea Aripiprazole (Aripiprazole Er 400 Mg Suser.Syr) 400 mg IM Q30D [facility] Aspirin (Aspirin 81 Mg Tab.Chew) 81 mg PO DAILY [facility] Last Admin: 04/23/24 08:34 Dose: 81 mg Benztropine Mesylate (Benztropine Mesylate 0.5 Mg Tablet) 0.5 mg PO BID [facility] Last Admin: 05/04/24 09:29 Dose: 0.5 mg Carbamazepine (Carbamazepine 200 Mg Tablet) 200 mg PO BID [facility] Last Admin: 05/04/24 09:30 Dose: 200 mg Ferrous Sulfate (Ferrous Sulfate 324 Mg Tablet.Dr) 324 mg PO BID [facility] Last Admin: 05/04/24 10:08 Dose: Not Given Haloperidol Lactate (Haloperidol Lactate Oral Conc 10 Mg/5 Ml Oral.Conc) 5 mg PO Q6H PRN PRN Reason: Psychosis or severe agitation Last Admin: 05/04/24 01:27 Dose: 5 mg Haloperidol Lactate (Haloperidol Lactate 5 Mg/Ml Vial) 5 mg IM TID PRN PRN Reason: Refusal of Court PO Haldol Last Admin: 05/03/24 08:55 Dose: 5 mg Haloperidol Lactate (Haloperidol Lactate Oral Conc 10 Mg/5 Ml Oral.Conc) 5 mg PO TID [facility] Last Admin: 05/04/24 09:31 Dose: 5 mg Hominy Carbonate (Hominy Carbonate 300 Mg Tablet) 300 mg PO BID [facility] Last Admin: 05/03/24 22:37 Dose: 300 mg Lorazepam (Lorazepam 1 Mg Tablet) 1 mg PO Q6H PRN PRN Reason: Anxiety Last Admin: 05/04/24 01:29 Dose: 1 mg Magnesium Hydroxide (Milk Of Magnesia 30 Ml Oral.Susp) 30 ml PO DAILY PRN PRN Reason: Constipation Nicotine Polacrilex (Nicotine Polacrilex 2 Mg Gum) 2 mg BUCCAL Q2H PRN PRN Reason: Nicotine Cravings Propranolol HCl (Propranolol Hcl 10 Mg Tablet) 5 mg PO TID [facility]; Protocol Last Admin: 05/04/24 10:09 Dose: Not Given Trazodone HCl (Trazodone Hcl 50 Mg Tablet) 50 mg PO BEDTIME PRN PRN Reason: Insomnia Last Admin: 05/04/24 01:29 Dose: 50 mg Vitamin D (Cholecalciferol (Vitamin D3) 25 Mcg Tablet) 50 mcg PO DAILY [facility] Last Admin: 05/04/24 10:08 Dose: Not Given Allergies Allergies Allergy/AdvReac Type Severity Reaction Status Date / Time lithium Allergy Unknown Verified 01/13/24 18:08 Assessment & Plan Assessment & Plan (1) Schizoaffective disorder, bipolar type: Status: Acute Code(s): F25.0 - Schizoaffective disorder, bipolar type (2) Diabetes mellitus: Status: Acute Code(s): E11.9 - Type 2 diabetes mellitus without complications Assessment and Plan: A1c on 04/28 5.9% (3) Hypertension: Status: Acute Code(s): I10 - Essential (primary) hypertension (4) Pancytopenia: Status: Acute Code(s): D61.818 - Other pancytopenia Plan 03/23 keep same treatment 68 yo from a [facility] with chronic psychotic disorder, refusing medication , elevated bp and disorganized and agitated behavior requiring psychiatric hospitalization and treatment not competent to sign cv. 01/14 continue to follow - gave lambs warning today- and he says the home theater experience expert will be a she- still refusing medications and quite psychotic takes alot of redirection to settle him poor adls- 01/15- Refuses meds, refuses hospitalist consult-second day File for Section Seven consideration on 01/17. Provide care as he will allow. 01/16: Depakote 250 mg bid Haldol, Lorazepam, Benadryl prn Section 7 to be filed 01/17 Message left for guardian. 01/17: Section Seven filed. . Court scheduled 01/26/24 Pt continues to refuse medicaitons. He is in need of full assist with ADL's and is incontinent. Pt transferred to [facility] this afternoon. 01/19/2024 Patient pending civil commitment loud agitated would not engage in any conversation with this literary writer non informational healing agitated verbally aggressive. Every attempt being made to get a copy of the patient's Servin order unclear why this has been so problematic. Encourage food and fluids 01/19 continue same treatment 01/21/24 Patient labile agitated intrusive close labs ordered in order to per to protect the community patient wandering into patient's rooms intrusive impulsive laying on another person's bed. Often hostile agitated posturing at times we are still pending copy of reported Servin order encourage p.o. compliance 01/22/2024 Patient did require physical hold escort him out of a room that he jumped in other patient's room and on their bed while there were in it. There was no physical harm and the patient did leave the room his markedly impulsive with poor judgment remains on close observation has intermittently taken Haldol liquid pending civil commitment treatment plan there is a question of Servin order 01/22 The patient had been more agitated. We review his Servin order and we are increasing the Abilify up to 15 mg p.o. daily and adding Haldol p.r.n. since it is in his role years order. We needed to give him some p.r.n. at 14:00. 01/23 The patient is grossly psychotic disrobing and sexually disinhibited we are starting Haldol 2 mg p.o. t.i.d. to target psychosis as per court order treatment over objection order. 01/24 The patient remains very agitated and angry disruptive so we are increasing the Haldol from 2 mg to 5 mg p.o. t.i.d. with a backup IM if the patient refused as per court order. 01/25 we have increased the Haldol but still he is very psychotic and restless. Today he refused his blood work. He needed to be physically held twice. 01/26 the patient remains agitated at times but his last IM backup was yesterday. We are going to increase Abilify up to 20 mg daily to target mood lability and psychosis. 01/29/2024: Increase frequency of prn doses from tid to prn q 6mrs. Poor insight and unable to care for self 02/08 pt has not take any of mood stabilizer. continues to have poor sleep, intrusive and combative requiring IM medications, increase haldol 10mg po TID, back up IM. Will add ativan 1mg po TID, also back up IM. Labs show elevated CK 2300, BUN 20, Cr 1.80, unclear baseline Cr as he does have CKD. Discussed with hospitalist Dr. Gama, to give IV fluids and monitor labs tomorrow. LFTs also elevated suspect this is secondary to elevation in CK and should trend down as CK goes down. 02/09 still agitated, creatinine and CPK slightly high as yesterday, he removed his IV line there is no big difference with IV hydration. We are changing his community role years to have more options since it is not working Abilify and Haldol 02/10 3 chemical restraints yesterday. appears more combative, and somewhat more confused. Will decrease amount of benzo and antihistamine given to him as it seems to be backfiring. did discuss with ICU attending, Dr. Whiteside possibility of transferring there but they would like us to try IV depakote and exhaust all resources prior to considering transfer. Pt did take depakote springkle 1000mg with apple sauce with much encourage. 02/11 continue tx. 02/12 continue same treatment 01/14 continue with Abilify and other court order medications, we are Namenda and the court order. 02/14 Team report improvement today with pt having greater comfort and less agitation. [id number] the staff reported that the patient had been less violent in the last 24 hours 02/16 continue tx. will check depakote and ammonia on 02/17 in AM. 02/17 continue regime and plan of care 02/26/2024: Continue current regimen as per court order 03/03 continue tx. lactulose for now as we don't have new ammonia level, but will try to chack labs. 03/16- continue medications, held clonidine patch for today due to low BP. repeat labs. 03/17-continue plan of care 03/18- continue tx 03/19 continue same treatment 03/20 waiting for CBC, basic metabolic panel and ammonia level. Today he nearly choked with a grape. We are going to change his diet to chopped 03/21 patient had a fall and he was assessed. No injuries as per CT scan of head and pelvis. Again he refused again his blood work vital signs within normal limits. 03/22 keep same treatment 03/23 keep same treatment 03 24 24 Continue plan of care Depakote Tegretol Haldol carbamazepine 03/25/2024 Repeat swallowing study ordered he is already on ground diet consider lowering Haldol versus Cogentin generally try to avoid older man 03/26 lowered Haldol to 7.5 p.o. b.i.d. 03/27 start Abilify Maintena 400 IM, later on we stopped it since he was over- sedated. 03/28 monitor vital signs and we will order blood work for tomorrow morning. 03/29 keep same treatment. We are deferring Abilify Maintena since the patient is still sedated and looks slightly delirious. He has refused blood work 03/31 continue current tx. less combative but no improvement in mentation. grossly disorganized and non sensical. 04/01: court ordered meds- team reviewing and optimizing same. 04/02 continue tx. 04/03 keep same treatment, so far he had been more compliant with some of the medications in the last 3 days. 04/04 start Abilify Maintena 400 mg IM 04/05 keep Haldol as prescribed 04/06 keep same treatment 04/08/24 continue current plan, regime 04/09/24 continue plan, CAT pending 04/10 continue same treatment 04/11 keep same treatment 04/12 lowering Haldol to 5 mg p.o. b.i.d. since the patient is over-sedated. 04/13 keep same treatment 04/14 agitated today, jumping around, dive off bed, crawling on all 4's, naked; took meds; now sleeping -floridly psychotic and literary writer thought best to let pt sleep 04/16 keep same treatment 04/17 Abilify Maintena 400 mg today and scheduled next for 30 days. 04/18 change Haldol to 5 mg p.o. t.i.d. with backup IM if he refuses p.o. 04/19 keep same treatment. 04/20 keep same treatment 04/21: verbally aggressive, restless. continue 1:1 and current Tx plan. 04/22: asleep, not easily rousable. restless and irritable last gwen, slept only 4 hours overnight. continue current mgmt. 04/23 add Cogentin 0.5 p.o. b.i.d. small improvement on his psychosis 04/24 continue with same treatment. 04/25 the patient fell again. Blood pressure had been okay even though that he is noncompliant with clonidine patch. We discussed the case with the medical team and they agreed that we can discontinue since he had been noncompliant of clonidine patch since March 09. Starting on propranolol 5 mg p.o. t.i.d. to target akathisia. 04/26 continue tx. 04/27 continue tx. 04/28 reviewing labs- neutropenia and thrombocytopenia worsening Plt 88, ANC 1000, consult to mohamud/onc as plan to continue depakote given that it has been very difficult to stabilize patient. Also, pt with hx of DM, not on any medications. Will obtain A1c. continues to present disorganized, delirium-like presentation. VS are stable, BP on lower side, no need for additional medication for BP. depakote level 100.1. Ammonia level wnl. Will decrease dose of depakote given pancytopenia. 04/29 will stop depakote (one as it may be contributing to pancytopenia, second because it has not shown significant improvement in mentation), continue carbamazepine, pt seen by oncology- appreciate recommendations- 04/30 continue tx. continue to monitor ANC, Plts. oncology/hem following. 05/01 speech and thought process more organized- which is improvement. sexualized remarks, unaware of unsteady gait and weakness. will repeat CBC- continue monitor pancytopenia. 05/02/24 On lithium monitor pancytopenia wbc 3.0 less confused 05/03/24 Increase lithium 300 bid monitor response watch for confusion 05/04 continue current tx, willc heck lithium level, renal function, TSH and repeat CBC on 06/10 at 7am. may need to increase haldol Reason for continued inpatient stay Substantial Risk for: inability to function Time Spent With Patient Time: Total time managing care of this patient today ____ minutes.
[2024-05-04] MEDS: Lithium Carbonate 300 MG TABLET PO (20:18)
[2024-05-05] MEDS: traZODone HCL 50 MG TABLET PO (02:36)
[2024-05-05] MEDS: Haloperidol Lactate Oral Conc 10 MG/5 ML ORAL.CONC 5 MG PO ×3 (02:37→14:52)
[2024-05-05] MEDS: LORazepam 1 MG TABLET PO (02:38)
[2024-05-05] MEDS: Lithium Carbonate 300 MG TABLET PO (07:44)
[2024-05-05] MEDS: Benztropine Mesylate 0.5 MG TABLET PO (07:44)
[2024-05-05] MEDS: carBAMazepine 200 MG TABLET PO (07:44)
[2024-05-05] MEDS: Cholecalciferol (Vitamin D3) 25 MCG TABLET 50 MCG PO (07:47)
[2024-05-05 08:00] VITALS: RESP 18
--- NOTE | 2024-05-05 10:57 | HO.PSYCHPN ---
Subjective Subjective Date of Service: 05/05/24 Reason For Visit: Schizoaffective disorder Subjective Notes: Conditional Voluntary Interim History: Patient remains impulsive reactive easily agitated hypersexual on lithium Tegretol Pancytopenia being monitored had significant renal insufficiency awhile ago that was related to severe dehydration will need to monitor Mental Status Exam Mental Status Exam Narrative: Pt minimally dressed more aggressive verbally sexually preoccupied minimal insight poor impulse control In general somewhat less agitated Diagnostics Vital Signs (24Hr): BMI result Body Mass Index 25.1 Labs 05/02/24 10:59 04/28/24 08:52 Labs: Laboratory Results - last 48 hr 04/29/24 11:52 JAYLA Titer TNP JAYLA Titer 2 TNP JAYLA Titer 3 TNP JAYLA Pattern TNP JAYLA Pattern 2 TNP JAYLA Pattern 3 TNP Imaging Radiology Impressions: ITS Impressions Chest X-Ray 03/20/24 08:33 IMPRESSION: Extremely limited exam. Only lateral views could be obtained. Suspect basilar airspace opacity, possibly pneumonia. Electronically signed by: Fortino Dumont MD 03/20/2024 10:10 AM EST RP Cervical Spine CT 03/21/24 11:18 IMPRESSION: 1. Allowing for suboptimal positioning, there is no CT evidence of acute cervical spine fracture or injury. 2. Degenerative changes with bulky ventral osteophytes spanning C4-C6, appearance in keeping with DISH. Electronically signed by: Fortino Dumont MD 03/21/2024 12:01 PM EST RP Head CT 03/21/24 11:18 IMPRESSION: 1. No acute intracranial abnormality. No acute fractures seen. 2. Stable chronic findings as discussed. Electronically signed by: Fortino Dumont MD 03/21/2024 11:54 AM EST RP Pelvis CT 03/21/24 11:18 IMPRESSION: 1. No acute bony abnormalities. No fractures. 2. Constipation with a large amount of stool in the rectum and sigmoid colon. 3. Mild thickening of the urinary bladder wall despite underdistention, nonspecific. Differential includes the detrusor hypertrophy, neurogenic bladder, or possibly cystitis. Electronically signed by: Fortino Dumont MD 03/21/2024 12:09 PM EST RP Head CT 03/28/24 09:37 IMPRESSION: No acute fracture, bony calvarium. No acute intracranial hemorrhage. Small vessel occlusive disease. Bifrontal bitemporal lobe atrophy. Electronically signed by: Juan Corrigan MD 03/28/2024 10:19 AM EST RP Head CT 04/25/24 12:22 IMPRESSION: No acute intracranial process seen. Electronically signed by: Ritchie Marte MD 04/25/2024 01:01 PM EST RP Medications Medications Current Medications Acetaminophen (Acetaminophen 325 Mg Tablet) 650 mg PO Q6H PRN PRN Reason: Headache/Pain Mild Scale (1-3) Last Admin: 01/17/24 23:53 Dose: 325 mg Al Hydroxide/Mg Hydroxide (Magnesium Hydrox/Alum Hydrox 30 Ml Oral.Susp) 30 ml PO Q6H PRN PRN Reason: Heartburn/Nausea Aripiprazole (Aripiprazole Er 400 Mg Suser.Syr) 400 mg IM Q30D [facility] Aspirin (Aspirin 81 Mg Tab.Chew) 81 mg PO DAILY [facility] Last Admin: 04/23/24 08:34 Dose: 81 mg Benztropine Mesylate (Benztropine Mesylate 0.5 Mg Tablet) 0.5 mg PO BID [facility] Last Admin: 05/05/24 07:44 Dose: 0.5 mg Carbamazepine (Carbamazepine 200 Mg Tablet) 200 mg PO BID [facility] Last Admin: 05/05/24 07:44 Dose: 200 mg Ferrous Sulfate (Ferrous Sulfate 324 Mg Tablet.Dr) 324 mg PO BID [facility] Last Admin: 05/04/24 20:22 Dose: Not Given Haloperidol Lactate (Haloperidol Lactate Oral Conc 10 Mg/5 Ml Oral.Conc) 5 mg PO Q6H PRN PRN Reason: Psychosis or severe agitation Last Admin: 05/05/24 02:37 Dose: 5 mg Haloperidol Lactate (Haloperidol Lactate 5 Mg/Ml Vial) 5 mg IM TID PRN PRN Reason: Refusal of Court PO Haldol Last Admin: 05/03/24 08:55 Dose: 5 mg Haloperidol Lactate (Haloperidol Lactate Oral Conc 10 Mg/5 Ml Oral.Conc) 5 mg PO TID [facility] Last Admin: 05/05/24 07:46 Dose: 5 mg [place] Carbonate ([place] Carbonate 300 Mg Tablet) 300 mg PO BID [facility] Last Admin: 05/05/24 07:44 Dose: 300 mg Lorazepam (Lorazepam 1 Mg Tablet) 1 mg PO Q6H PRN PRN Reason: Anxiety Last Admin: 05/05/24 02:38 Dose: 1 mg Magnesium Hydroxide (Milk Of Magnesia 30 Ml Oral.Susp) 30 ml PO DAILY PRN PRN Reason: Constipation Nicotine Polacrilex (Nicotine Polacrilex 2 Mg Gum) 2 mg BUCCAL Q2H PRN PRN Reason: Nicotine Cravings Propranolol HCl (Propranolol Hcl 10 Mg Tablet) 5 mg PO TID KASIA; Protocol Last Admin: 05/04/24 20:21 Dose: Not Given Trazodone HCl (Trazodone Hcl 50 Mg Tablet) 50 mg PO BEDTIME PRN PRN Reason: Insomnia Last Admin: 05/05/24 02:36 Dose: 50 mg Vitamin D (Cholecalciferol (Vitamin D3) 25 Mcg Tablet) 50 mcg PO DAILY [facility] Last Admin: 05/05/24 07:47 Dose: 50 mcg Allergies Allergies Allergy/AdvReac Type Severity Reaction Status Date / Time lithium Allergy Unknown Verified 01/13/24 18:08 Assessment & Plan Assessment & Plan (1) Schizoaffective disorder, bipolar type: Status: Acute Code(s): F25.0 - Schizoaffective disorder, bipolar type (2) Diabetes mellitus: Status: Acute Code(s): E11.9 - Type 2 diabetes mellitus without complications Assessment and Plan: A1c on 04/28 5.9% (3) Hypertension: Status: Acute Code(s): I10 - Essential (primary) hypertension (4) Pancytopenia: Status: Acute Code(s): D61.818 - Other pancytopenia Plan 03/23 keep same treatment 68 yo [facility] with chronic psychotic disorder, refusing medication , elevated bp and disorganized and agitated behavior requiring psychiatric hospitalization and treatment not competent to sign cv. 01/14 continue to follow - gave lambs warning today- and he says the senior linux unix engineer will be a she- still refusing medications and quite psychotic takes alot of redirection to settle him poor adls- 01/15- Refuses meds, refuses hospitalist consult-second day File for [place] consideration on 01/17. Provide care as he will allow. 01/16: Depakote 250 mg bid Haldol, Lorazepam, Benadryl prn Section 7 to be filed 01/17 Message left for guardian. 01/17: Section [address] filed. . Court scheduled 01/26/24 Pt continues to refuse medicaitons. He is in need of full assist with ADL's and is incontinent. Pt transferred to [facility] this afternoon. 01/19/2024 Patient pending civil commitment loud agitated would not engage in any conversation with this auto service writer non informational healing agitated verbally aggressive. Every attempt being made to get a copy of the patient's Servin order unclear why this has been so problematic. Encourage food and fluids 01/19 continue same treatment 01/21/24 Patient labile agitated intrusive close labs ordered in order to per to protect the community patient wandering into patient's rooms intrusive impulsive laying on another person's bed. Often hostile agitated posturing at times we are still pending copy of reported Servin order encourage p.o. compliance 01/22/2024 Patient did require physical hold escort him out of a room that he jumped in other patient's room and on their bed while there were in it. There was no physical harm and the patient did leave the room his markedly impulsive with poor judgment remains on close observation has intermittently taken Haldol liquid pending civil commitment treatment plan there is a question of Servin order 01/22 The patient had been more agitated. We review his Servin order and we are increasing the Abilify up to 15 mg p.o. daily and adding Haldol p.r.n. since it is in his role years order. We needed to give him some p.r.n. at 14:00. 01/23 The patient is grossly psychotic disrobing and sexually disinhibited we are starting Haldol 2 mg p.o. t.i.d. to target psychosis as per court order treatment over objection order. 01/24 The patient remains very agitated and angry disruptive so we are increasing the Haldol from 2 mg to 5 mg p.o. t.i.d. with a backup IM if the patient refused as per court order. 01/25 we have increased the Haldol but still he is very psychotic and restless. Today he refused his blood work. He needed to be physically held twice. 01/26 the patient remains agitated at times but his last IM backup was yesterday. We are going to increase Abilify up to 20 mg daily to target mood lability and psychosis. 01/29/2024: Increase frequency of prn doses from tid to prn q 6mrs. Poor insight and unable to care for self 02/08 pt has not take any of mood stabilizer. continues to have poor sleep, intrusive and combative requiring IM medications, increase haldol 10mg po TID, back up IM. Will add ativan 1mg po TID, also back up IM. Labs show elevated CK 2300, BUN 20, Cr 1.80, unclear baseline Cr as he does have CKD. Discussed with hospitalist Dr. Gama, to give IV fluids and monitor labs tomorrow. LFTs also elevated suspect this is secondary to elevation in CK and should trend down as CK goes down. 02/09 still agitated, creatinine and CPK slightly high as yesterday, he removed his IV line there is no big difference with IV hydration. We are changing his community role years to have more options since it is not working Abilify and Haldol 02/10 3 chemical restraints yesterday. appears more combative, and somewhat more confused. Will decrease amount of benzo and antihistamine given to him as it seems to be backfiring. did discuss with ICU attending, Dr. Whiteside possibility of transferring there but they would like us to try IV depakote and exhaust all resources prior to considering transfer. Pt did take depakote springkle 1000mg with apple sauce with much encourage. 02/11 continue tx. 02/12 continue same treatment 01/14 continue with Abilify and other court order medications, we are Nam[place] and the court order. 02/14 Team report improvement today with pt having greater comfort and less agitation. [id number] the staff reported that the patient had been less violent in the last 24 hours 02/16 continue tx. will check depakote and ammonia on 02/17 in AM. 02/17 continue regime and plan of care 02/26/2024: Continue current regimen as per court order 03/03 continue tx. lactulose for now as we don't have new ammonia level, but will try to chack labs. 03/16- continue medications, held clonidine patch for today due to low BP. repeat labs. 03/17-continue plan of care 03/18- continue tx 03/19 continue same treatment 03/20 waiting for CBC, basic metabolic panel and ammonia level. Today he nearly choked with a grape. We are going to change his diet to chopped 03/21 patient had a fall and he was assessed. No injuries as per CT scan of head and pelvis. Again he refused again his blood work vital signs within normal limits. 03/22 keep same treatment 03/23 keep same treatment 03 24 24 Continue plan of care Depakote Tegretol Haldol carbamazepine 03/25/2024 Repeat swallowing study ordered he is already on ground diet consider lowering Haldol versus Cogentin generally try to avoid older man 03/26 lowered Haldol to 7.5 p.o. b.i.d. 03/27 start Abilify Maintena 400 IM, later on we stopped it since he was over-sedated. 03/28 monitor vital signs and we will order blood work for tomorrow morning. 03/29 keep same treatment. We are deferring Abilify Maintena since the patient is still sedated and looks slightly delirious. He has refused blood work 03/31 continue current tx. less combative but no improvement in mentation. grossly disorganized and non sensical. 04/01: court ordered meds- team reviewing and optimizing same. 04/02 continue tx. 04/03 keep same treatment, so far he had been more compliant with some of the medications in the last 3 days. 04/04 start Abilify Maintena 400 mg IM 04/05 keep Haldol as prescribed 04/06 keep same treatment 04/08/24 continue current plan, regime 04/09/24 continue plan, CAT pending 04/10 continue same treatment 04/11 keep same treatment 04/12 lowering Haldol to 5 mg p.o. b.i.d. since the patient is over-sedated. 04/13 keep same treatment 04/14 agitated today, jumping around, dive off bed, crawling on all 4's, naked; took meds; now sleeping -floridly psychotic and auto service writer thought best to let pt sleep 04/16 keep same treatment 04/17 Abilify Maintena 400 mg today and scheduled next for 30 days. 04/18 change Haldol to 5 mg p.o. t.i.d. with backup IM if he refuses p.o. 04/19 keep same treatment. 04/20 keep same treatment 04/21: verbally aggressive, restless. continue 1:1 and current Tx plan. 04/22: asleep, not easily rousable. restless and irritable last gwen, slept only 4 hours overnight. continue current mgmt. 04/23 add Cogentin 0.5 p.o. b.i.d. small improvement on his psychosis 04/24 continue with same treatment. 04/25 the patient fell again. Blood pressure had been okay even though that he is noncompliant with clonidine patch. We discussed the case with the medical team and they agreed that we can discontinue since he had been noncompliant of clonidine patch since March 09. Starting on propranolol 5 mg p.o. t.i.d. to target akathisia. 04/26 continue tx. 04/27 continue tx. 04/28 reviewing labs- neutropenia and thrombocytopenia worsening Plt 88, ANC 1000, consult to mohamud/onc as plan to continue depakote given that it has been very difficult to stabilize patient. Also, pt with hx of DM, not on any medications. Will obtain A1c. continues to present disorganized, delirium-like presentation. VS are stable, BP on lower side, no need for additional medication for BP. depakote level 100.1. Ammonia level wnl. Will decrease dose of depakote given pancytopenia. 04/29 will stop depakote (one as it may be contributing to pancytopenia, second because it has not shown significant improvement in mentation), continue carbamazepine, pt seen by oncology- appreciate recommendations- 04/30 continue tx. continue to monitor ANC, Plts. oncology/hem following. 05/01 speech and thought process more organized- which is improvement. sexualized remarks, unaware of unsteady gait and weakness. will repeat CBC- continue monitor pancytopenia. 05/02/24 On lithium monitor pancytopenia wbc 3.0 less confused 05/03/24 Increase lithium 300 bid monitor response watch for confusion 05/04 continue current tx, willc heck lithium level, renal function, TSH and repeat CBC on 06/10 at 7am. may need to increase haldol 05/06/23 Continue lithium and Tegretol encourage fluids check lithium TSH electrolytes continue to monitor CBC Reason for continued inpatient stay Substantial Risk for: harm to others, inability to function, rapid decompensation and med/psych decompensation Time Spent With Patient Time: Total time managing care of this patient today ____ minutes.
--- NOTE | 2024-05-05 15:54 | PC.NURSE ---
Pt declined Vital Signs, Propranolol held, Dr. Long notified.
[2024-05-06] MEDS: Haloperidol Lactate 5 MG/ML VIAL IM (00:36)
[2024-05-06 08:00] VITALS: RESP 18
[2024-05-06] MEDS: Haloperidol Lactate Oral Conc 10 MG/5 ML ORAL.CONC 5 MG PO ×3 (08:34→21:20)
[2024-05-06] MEDS: Benztropine Mesylate 0.5 MG TABLET PO ×2 (08:38→21:20)
[2024-05-06] MEDS: Cholecalciferol (Vitamin D3) 25 MCG TABLET 50 MCG PO (08:38)
[2024-05-06] MEDS: Lithium Carbonate 300 MG TABLET PO ×2 (08:38→21:20)
[2024-05-06] MEDS: carBAMazepine 200 MG TABLET PO ×2 (08:38→21:20)
[2024-05-06] MEDS: LORazepam 1 MG TABLET PO ×2 (12:56→21:20)
[2024-05-06 20:00] VITALS: BP 108/51; PULSE 56; RESP 16; TEMP 36.7; O2SAT 100
--- NOTE | 2024-05-06 21:07 | HO.PSYCHPN ---
Subjective Subjective Date of Service: 05/06/24 Reason For Visit: Schizoaffective disorder Subjective Notes: Conditional Voluntary Interim History: Patient remains reactive easily agitated hypersexual on lithium Tegretol Pancytopenia being monitored had significant renal insufficiency awhile ago that was related to severe dehydration will need to monitor . This continues to be true. Patient was more irritable and dysphoric today Mental Status Exam Mental Status Exam Narrative: Patient seen/room he was wearing hospital garb. He was less cycle motor agitated. Patient appeared somewhat irritable and dysphoric did not wish to engage in conversation. Would not answer questions was not physically combative agitated threatening or self-harming when seen no gross delusional statements Diagnostics Vital Signs (24Hr): Vital Signs - 24 hr 05/06/24 08:00 Respiratory Rate 18 BMI result Body Mass Index 25.1 Labs 05/02/24 10:59 04/28/24 08:52 Imaging Radiology Impressions: ITS Impressions Chest X-Ray 03/20/24 08:33 IMPRESSION: Extremely limited exam. Only lateral views could be obtained. Suspect basilar airspace opacity, possibly pneumonia. Electronically signed by: Fortino Dumont MD 03/20/2024 10:10 AM EST RP Cervical Spine CT 03/21/24 11:18 IMPRESSION: 1. Allowing for suboptimal positioning, there is no CT evidence of acute cervical spine fracture or injury. 2. Degenerative changes with bulky ventral osteophytes spanning C4-C6, appearance in keeping with DISH. Electronically signed by: Fortino Dumont MD 03/21/2024 12:01 PM EST RP Head CT 03/21/24 11:18 IMPRESSION: 1. No acute intracranial abnormality. No acute fractures seen. 2. Stable chronic findings as discussed. Electronically signed by: Fortino Dumont MD 03/21/2024 11:54 AM EST RP Pelvis CT 03/21/24 11:18 IMPRESSION: 1. No acute bony abnormalities. No fractures. 2. Constipation with a large amount of stool in the rectum and sigmoid colon. 3. Mild thickening of the urinary bladder wall despite underdistention, nonspecific. Differential includes the detrusor hypertrophy, neurogenic bladder, or possibly cystitis. Electronically signed by: Fortino Dumont MD 03/21/2024 12:09 PM EST RP Head CT 03/28/24 09:37 IMPRESSION: No acute fracture, bony calvarium. No acute intracranial hemorrhage. Small vessel occlusive disease. Bifrontal bitemporal lobe atrophy. Electronically signed by: Juan Corrigan MD 03/28/2024 10:19 AM EST RP Head CT 04/25/24 12:22 IMPRESSION: No acute intracranial process seen. Electronically signed by: Ritchie Marte MD 04/25/2024 01:01 PM EST RP Medications Medications Current Medications Acetaminophen (Acetaminophen 325 Mg Tablet) 650 mg PO Q6H PRN PRN Reason: Headache/Pain Mild Scale (1-3) Last Admin: 01/17/24 23:53 Dose: 325 mg Al Hydroxide/Mg Hydroxide (Magnesium Hydrox/Alum Hydrox 30 Ml Oral.Susp) 30 ml PO Q6H PRN PRN Reason: Heartburn/Nausea Aripiprazole (Aripiprazole Er 400 Mg Suser.Syr) 400 mg IM Q30D [facility] Aspirin (Aspirin 81 Mg Tab.Chew) 81 mg PO DAILY [facility] Last Admin: 04/23/24 08:34 Dose: 81 mg Benztropine Mesylate (Benztropine Mesylate 0.5 Mg Tablet) 0.5 mg PO BID [facility] Last Admin: 05/06/24 08:38 Dose: 0.5 mg Carbamazepine (Carbamazepine 200 Mg Tablet) 200 mg PO BID [facility] Last Admin: 05/06/24 08:38 Dose: 200 mg Ferrous Sulfate (Ferrous Sulfate 324 Mg Tablet.Dr) 324 mg PO BID [facility] Last Admin: 05/06/24 10:06 Dose: Not Given Haloperidol Lactate (Haloperidol Lactate Oral Conc 10 Mg/5 Ml Oral.Conc) 5 mg PO Q6H PRN PRN Reason: Psychosis or severe agitation Last Admin: 05/05/24 02:37 Dose: 5 mg Haloperidol Lactate (Haloperidol Lactate 5 Mg/Ml Vial) 5 mg IM TID PRN PRN Reason: Refusal of Court PO Haldol Last Admin: 05/06/24 00:36 Dose: 5 mg Haloperidol Lactate (Haloperidol Lactate Oral Conc 10 Mg/5 Ml Oral.Conc) 5 mg PO TID [facility] Last Admin: 05/06/24 16:14 Dose: 5 mg Sea Bright Carbonate (Sea Bright Carbonate 300 Mg Tablet) 300 mg PO BID [facility] Last Admin: 05/06/24 08:38 Dose: 300 mg Lorazepam (Lorazepam 1 Mg Tablet) 1 mg PO Q6H PRN PRN Reason: Anxiety Last Admin: 05/06/24 12:56 Dose: 1 mg Magnesium Hydroxide (Milk Of Magnesia 30 Ml Oral.Susp) 30 ml PO DAILY PRN PRN Reason: Constipation Nicotine Polacrilex (Nicotine Polacrilex 2 Mg Gum) 2 mg BUCCAL Q2H PRN PRN Reason: Nicotine Cravings Propranolol HCl (Propranolol Hcl 10 Mg Tablet) 5 mg PO TID [facility]; Protocol Last Admin: 05/06/24 16:14 Dose: Not Given Trazodone HCl (Trazodone Hcl 50 Mg Tablet) 50 mg PO BEDTIME PRN PRN Reason: Insomnia Last Admin: 05/05/24 02:36 Dose: 50 mg Vitamin D (Cholecalciferol (Vitamin D3) 25 Mcg Tablet) 50 mcg PO DAILY [facility] Last Admin: 05/06/24 08:38 Dose: 50 mcg Allergies Allergies Allergy/AdvReac Type Severity Reaction Status Date / Time lithium Allergy Unknown Verified 01/13/24 18:08 Assessment & Plan Assessment & Plan (1) Schizoaffective disorder, bipolar type: Status: Acute Code(s): F25.0 - Schizoaffective disorder, bipolar type (2) Diabetes mellitus: Status: Acute Code(s): E11.9 - Type 2 diabetes mellitus without complications Assessment and Plan: A1c on 04/28 5.9% (3) Hypertension: Status: Acute Code(s): I10 - Essential (primary) hypertension (4) Pancytopenia: Status: Acute Code(s): D61.818 - Other pancytopenia Plan 03/23 keep same treatment 68 yo from a half-way with chronic psychotic disorder, refusing medication , elevated bp and disorganized and agitated behavior requiring psychiatric hospitalization and treatment not competent to sign cv. 01/14 continue to follow - gave lambs warning today- and he says the supervisor toy assembly will be a she- still refusing medications and quite psychotic takes alot of redirection to settle him poor adls- 01/15- Refuses meds, refuses hospitalist consult-second day File for Section [place] consideration on 01/17. Provide care as he will allow. 01/16: Depakote 250 mg bid Haldol, Lorazepam, Benadryl prn Section 7 to be filed 01/17 Message left for guardian. 01/17: Section Seven filed. . Court scheduled 01/26/24 Pt continues to refuse medicaitons. He is in need of full assist with ADL's and is incontinent. Pt transferred to [facility] this afternoon. 01/19/2024 Patient pending civil commitment loud agitated would not engage in any conversation with this movie writer non informational healing agitated verbally aggressive. Every attempt being made to get a copy of the patient's Servin order unclear why this has been so problematic. Encourage food and fluids 01/19 continue same treatment 01/21/24 Patient labile agitated intrusive close labs ordered in order to per to protect the community patient wandering into patient's rooms intrusive impulsive laying on another person's bed. Often hostile agitated posturing at times we are still pending copy of reported Servin order encourage p.o. compliance 01/22/2024 Patient did require physical hold escort him out of a room that he jumped in other patient's room and on their bed while there were in it. There was no physical harm and the patient did leave the room his markedly impulsive with poor judgment remains on close observation has intermittently taken Haldol liquid pending civil commitment treatment plan there is a question of Servin order 01/22 The patient had been more agitated. We review his Servin order and we are increasing the Abilify up to 15 mg p.o. daily and adding Haldol p.r.n. since it is in his role years order. We needed to give him some p.r.n. at 14:00. 01/23 The patient is grossly psychotic disrobing and sexually disinhibited we are starting Haldol 2 mg p.o. t.i.d. to target psychosis as per court order treatment over objection order. 01/24 The patient remains very agitated and angry disruptive so we are increasing the Haldol from 2 mg to 5 mg p.o. t.i.d. with a backup IM if the patient refused as per court order. 01/25 we have increased the Haldol but still he is very psychotic and restless. Today he refused his blood work. He needed to be physically held twice. 01/26 the patient remains agitated at times but his last IM backup was yesterday. We are going to increase Abilify up to 20 mg daily to target mood lability and psychosis. 01/29/2024: Increase frequency of prn doses from tid to prn q 6mrs. Poor insight and unable to care for self 02/08 pt has not take any of mood stabilizer. continues to have poor sleep, intrusive and combative requiring IM medications, increase haldol 10mg po TID, back up IM. Will add ativan 1mg po TID, also back up IM. Labs show elevated CK 2300, BUN 20, Cr 1.80, unclear baseline Cr as he does have CKD. Discussed with hospitalist Dr. Gama, to give IV fluids and monitor labs tomorrow. LFTs also elevated suspect this is secondary to elevation in CK and should trend down as CK goes down. 02/09 still agitated, creatinine and CPK slightly high as yesterday, he removed his IV line there is no big difference with IV hydration. We are changing his community role years to have more options since it is not working Abilify and Haldol 02/10 3 chemical restraints yesterday. appears more combative, and somewhat more confused. Will decrease amount of benzo and antihistamine given to him as it seems to be backfiring. did discuss with ICU attending, Dr. Whiteside possibility of transferring there but they would like us to try IV depakote and exhaust all resources prior to considering transfer. Pt did take depakote springkle 1000mg with apple sauce with much encourage. 02/11 continue tx. 02/12 continue same treatment 01/14 continue with Abilify and other court order medications, we are Namenda and the court order. 02/14 Team report improvement today with pt having greater comfort and less agitation. [id number] the staff reported that the patient had been less violent in the last 24 hours 02/16 continue tx. will check depakote and ammonia on 02/17 in AM. 02/17 continue regime and plan of care 02/26/2024: Continue current regimen as per court order 03/03 continue tx. lactulose for now as we don't have new ammonia level, but will try to chack labs. 03/16- continue medications, held clonidine patch for today due to low BP. repeat labs. 03/17-continue plan of care 03/18- continue tx 03/19 continue same treatment 03/20 waiting for CBC, basic metabolic panel and ammonia level. Today he nearly choked with a grape. We are going to change his diet to chopped 03/21 patient had a fall and he was assessed. No injuries as per CT scan of head and pelvis. Again he refused again his blood work vital signs within normal limits. 03/22 keep same treatment 03/23 keep same treatment 03 24 24 Continue plan of care Depakote Tegretol Haldol carbamazepine 03/25/2024 Repeat swallowing study ordered he is already on ground diet consider lowering Haldol versus Cogentin generally try to avoid older man 03/26 lowered Haldol to 7.5 p.o. b.i.d. 03/27 start Abilify Maintena 400 IM, later on we stopped it since he was over-sedated. 03/28 monitor vital signs and we will order blood work for tomorrow morning. 03/29 keep same treatment. We are deferring Abilify Maintena since the patient is still sedated and looks slightly delirious. He has refused blood work 03/31 continue current tx. less combative but no improvement in mentation. grossly disorganized and non sensical. 04/01: court ordered meds- team reviewing and optimizing same. 04/02 continue tx. 04/03 keep same treatment, so far he had been more compliant with some of the medications in the last 3 days. 04/04 start Abilify Maintena 400 mg IM 04/05 keep Haldol as prescribed 04/06 keep same treatment 04/08/24 continue current plan, regime 04/09/24 continue plan, CAT pending 04/10 continue same treatment 04/11 keep same treatment 04/12 lowering Haldol to 5 mg p.o. b.i.d. since the patient is over-sedated. 04/13 keep same treatment 04/14 agitated today, jumping around, dive off bed, crawling on all 4's, naked; took meds; now sleeping -floridly psychotic and movie writer thought best to let pt sleep 04/16 keep same treatment 04/17 Abilify Maintena 400 mg today and scheduled next for 30 days. 04/18 change Haldol to 5 mg p.o. t.i.d. with backup IM if he refuses p.o. 04/19 keep same treatment. 04/20 keep same treatment 04/21: verbally aggressive, restless. continue 1:1 and current Tx plan. 04/22: asleep, not easily rousable. restless and irritable last gwen, slept only 4 hours overnight. continue current mgmt. 04/23 add Cogentin 0.5 p.o. b.i.d. small improvement on his psychosis 04/24 continue with same treatment. 04/25 the patient fell again. Blood pressure had been okay even though that he is noncompliant with clonidine patch. We discussed the case with the medical team and they agreed that we can discontinue since he had been noncompliant of clonidine patch since March 09. Starting on propranolol 5 mg p.o. t.i.d. to target akathisia. 04/26 continue tx. 04/27 continue tx. 04/28 reviewing labs- neutropenia and thrombocytopenia worsening Plt 88, ANC 1000, consult to mohamud/onc as plan to continue depakote given that it has been very difficult to stabilize patient. Also, pt with hx of DM, not on any medications. Will obtain A1c. continues to present disorganized, delirium-like presentation. VS are stable, BP on lower side, no need for additional medication for BP. depakote level 100.1. Ammonia level wnl. Will decrease dose of depakote given pancytopenia. 04/29 will stop depakote (one as it may be contributing to pancytopenia, second because it has not shown significant improvement in mentation), continue carbamazepine, pt seen by oncology- appreciate recommendations- 04/30 continue tx. continue to monitor ANC, Plts. oncology/hem following. 05/01 speech and thought process more organized- which is improvement. sexualized remarks, unaware of unsteady gait and weakness. will repeat CBC- continue monitor pancytopenia. 05/02/24 On lithium monitor pancytopenia wbc 3.0 less confused 05/03/24 Increase lithium 300 bid monitor response watch for confusion 05/04 continue current tx, willc heck lithium level, renal function, TSH and repeat CBC on 06/10 at 7am. may need to increase haldol 05/05/24 Continue lithium and Tegretol encourage fluids check lithium TSH electrolytes continue to monitor CBC 05/06/2024 Patient seen chart reviewed case reviewed with nursing staff. Patient was somewhat more dysphoric today tried to engage in conversation had a difficult time. He slept about 4 hours did get Haldol the other day was offered p.o. Ativan p.r.n. encourage fluids with lithium avoid nonsteroidals no gross confusion or tremor Reason for continued inpatient stay Substantial Risk for: harm to others, inability to function, rapid decompensation and med/psych decompensation Time Spent With Patient Time: Total time managing care of this patient today ____ minutes.
[2024-05-06 21:36] VITALS: BP 108/51; PULSE 56
[2024-05-07 08:00] VITALS: BP 106/58; PULSE 62; RESP 16; TEMP 36.9; O2SAT 100
[2024-05-07] MEDS: Benztropine Mesylate 0.5 MG TABLET PO ×2 (11:27→19:34)
[2024-05-07] MEDS: Haloperidol Lactate Oral Conc 10 MG/5 ML ORAL.CONC 5 MG PO ×3 (11:27→19:34)
[2024-05-07] MEDS: carBAMazepine 200 MG TABLET PO ×2 (11:28→19:34)
[2024-05-07] MEDS: Cholecalciferol (Vitamin D3) 25 MCG TABLET 50 MCG PO (11:28)
[2024-05-07] MEDS: Lithium Carbonate 300 MG TABLET PO ×2 (11:28→19:33)
--- NOTE | 2024-05-07 12:07 | HO.PSYCHPN ---
Subjective Subjective Date of Service: 05/07/24 Reason For Visit: Schizoaffective disorder Subjective Notes: Conditional Voluntary Healthcare Proxy: Yes Interim History: Pt slept through the night. He presents as more organized, reports he is feeling tired and had a lot for breakfast tomorrow. He denies SI/HI. No overt psychosis noted. Less sexualized behaviors. taking medications as prescribed. Review of Systems Review of Systems s/p fall Yes Unobtainable due to mental status Diagnostics Vital Signs (24Hr): Vital Signs - 24 hr 05/06/24 20:00 05/06/24 21:36 05/07/24 08:00 Temperature 98.1 F Pulse Rate 56 56 62 Respiratory Rate 16 Blood Pressure 108/51 L 108/51 L 106/58 L Pulse Oximetry 100 Oxygen Delivery Method Room Air 05/07/24 08:00 Temperature 98.4 F Pulse Rate 62 Respiratory Rate 16 Blood Pressure 106/58 L Pulse Oximetry 100 Oxygen Delivery Method Room Air BMI result Body Mass Index 25.1 Labs 05/02/24 10:59 04/28/24 08:52 Imaging Radiology Impressions: ITS Impressions Chest X-Ray 03/20/24 08:33 IMPRESSION: Extremely limited exam. Only lateral views could be obtained. Suspect basilar airspace opacity, possibly pneumonia. Electronically signed by: Fortino Dumont MD 03/20/2024 10:10 AM EST RP Cervical Spine CT 03/21/24 11:18 IMPRESSION: 1. Allowing for suboptimal positioning, there is no CT evidence of acute cervical spine fracture or injury. 2. Degenerative changes with bulky ventral osteophytes spanning C4-C6, appearance in keeping with DISH. Electronically signed by: Fortino Dumont MD 03/21/2024 12:01 PM EST RP Head CT 03/21/24 11:18 IMPRESSION: 1. No acute intracranial abnormality. No acute fractures seen. 2. Stable chronic findings as discussed. Electronically signed by: Fortino Dumont MD 03/21/2024 11:54 AM EST RP Pelvis CT 03/21/24 11:18 IMPRESSION: 1. No acute bony abnormalities. No fractures. 2. Constipation with a large amount of stool in the rectum and sigmoid colon. 3. Mild thickening of the urinary bladder wall despite underdistention, nonspecific. Differential includes the detrusor hypertrophy, neurogenic bladder, or possibly cystitis. Electronically signed by: Fortino Dumont MD 03/21/2024 12:09 PM EST RP Head CT 03/28/24 09:37 IMPRESSION: No acute fracture, bony calvarium. No acute intracranial hemorrhage. Small vessel occlusive disease. Bifrontal bitemporal lobe atrophy. Electronically signed by: Juan Corrigan MD 03/28/2024 10:19 AM EST RP Head CT 04/25/24 12:22 IMPRESSION: No acute intracranial process seen. Electronically signed by: Ritchie Marte MD 04/25/2024 01:01 PM EST RP Medications Medications Current Medications Acetaminophen (Acetaminophen 325 Mg Tablet) 650 mg PO Q6H PRN PRN Reason: Headache/Pain Mild Scale (1-3) Last Admin: 01/17/24 23:53 Dose: 325 mg Al Hydroxide/Mg Hydroxide (Magnesium Hydrox/Alum Hydrox 30 Ml Oral.Susp) 30 ml PO Q6H PRN PRN Reason: Heartburn/Nausea Aripiprazole (Aripiprazole Er 400 Mg Suser.Syr) 400 mg IM Q30D [facility] Aspirin (Aspirin 81 Mg Tab.Chew) 81 mg PO DAILY [facility] Last Admin: 04/23/24 08:34 Dose: 81 mg Benztropine Mesylate (Benztropine Mesylate 0.5 Mg Tablet) 0.5 mg PO BID [facility] Last Admin: 05/07/24 11:27 Dose: 0.5 mg Carbamazepine (Carbamazepine 200 Mg Tablet) 200 mg PO BID [facility] Last Admin: 05/07/24 11:28 Dose: 200 mg Ferrous Sulfate (Ferrous Sulfate 324 Mg Tablet.Dr) 324 mg PO BID [facility] Last Admin: 05/07/24 10:48 Dose: Not Given Haloperidol Lactate (Haloperidol Lactate Oral Conc 10 Mg/5 Ml Oral.Conc) 5 mg PO Q6H PRN PRN Reason: Psychosis or severe agitation Last Admin: 05/05/24 02:37 Dose: 5 mg Haloperidol Lactate (Haloperidol Lactate 5 Mg/Ml Vial) 5 mg IM TID PRN PRN Reason: Refusal of Court PO Haldol Last Admin: 05/06/24 00:36 Dose: 5 mg Haloperidol Lactate (Haloperidol Lactate Oral Conc 10 Mg/5 Ml Oral.Conc) 5 mg PO TID [facility] Last Admin: 05/07/24 11:27 Dose: 5 mg [place] Carbonate ([place] Carbonate 300 Mg Tablet) 300 mg PO BID [facility] Last Admin: 05/07/24 11:28 Dose: 300 mg Lorazepam (Lorazepam 1 Mg Tablet) 1 mg PO Q6H PRN PRN Reason: Anxiety Last Admin: 05/06/24 21:20 Dose: 1 mg Magnesium Hydroxide (Milk Of Magnesia 30 Ml Oral.Susp) 30 ml PO DAILY PRN PRN Reason: Constipation Nicotine Polacrilex (Nicotine Polacrilex 2 Mg Gum) 2 mg BUCCAL Q2H PRN PRN Reason: Nicotine Cravings Propranolol HCl (Propranolol Hcl 10 Mg Tablet) 5 mg PO TID [facility]; Protocol Last Admin: 05/07/24 10:49 Dose: Not Given Trazodone HCl (Trazodone Hcl 50 Mg Tablet) 50 mg PO BEDTIME PRN PRN Reason: Insomnia Last Admin: 05/05/24 02:36 Dose: 50 mg Vitamin D (Cholecalciferol (Vitamin D3) 25 Mcg Tablet) 50 mcg PO DAILY [facility] Last Admin: 05/07/24 11:28 Dose: 50 mcg Allergies Allergies Allergy/AdvReac Type Severity Reaction Status Date / Time lithium Allergy Unknown Verified 01/13/24 18:08 Assessment & Plan Assessment & Plan (1) Schizoaffective disorder, bipolar type: Status: Acute Code(s): F25.0 - Schizoaffective disorder, bipolar type (2) Diabetes mellitus: Status: Acute Code(s): E11.9 - Type 2 diabetes mellitus without complications Assessment and Plan: A1c on 04/28 5.9% (3) Hypertension: Status: Acute Code(s): I10 - Essential (primary) hypertension (4) Pancytopenia: Status: Acute Code(s): D61.818 - Other pancytopenia Plan 03/23 keep same treatment 68 yo [facility] a [facility] with chronic psychotic disorder, refusing medication , elevated bp and disorganized and agitated behavior requiring psychiatric hospitalization and treatment not competent to sign cv. 01/14 continue to follow - gave lambs warning today- and he says the nuclear medicine physician will be a she- still refusing medications and quite psychotic takes alot of redirection to settle him poor adls- 11/25- Refuses meds, refuses hospitalist consult-second day File for Section [place] consideration on 01/17. Provide care as he will allow. 01/16: Depakote 250 mg bid Haldol, Lorazepam, Benadryl prn Section 7 to be filed 01/17 Message left for guardian. 01/17: Section [address] filed. . Court scheduled 01/26/24 Pt continues to refuse medicaitons. He is in need of full assist with ADL's and is incontinent. Pt transferred to [facility] this afternoon. 01/19/2024 Patient pending civil commitment loud agitated would not engage in any conversation with this typewriter operator automatic non informational healing agitated verbally aggressive. Every attempt being made to get a copy of the patient's Servin order unclear why this has been so problematic. Encourage food and fluids 01/19 continue same treatment 01/21/24 Patient labile agitated intrusive close labs ordered in order to per to protect the community patient wandering into patient's rooms intrusive impulsive laying on another person's bed. Often hostile agitated posturing at times we are still pending copy of reported Servin order encourage p.o. compliance 01/22/2024 Patient did require physical hold escort him out of a room that he jumped in other patient's room and on their bed while there were in it. There was no physical harm and the patient did leave the room his markedly impulsive with poor judgment remains on close observation has intermittently taken Haldol liquid pending civil commitment treatment plan there is a question of Servin order 01/22 The patient had been more agitated. We review his Servin order and we are increasing the Abilify up to 15 mg p.o. daily and adding Haldol p.r.n. since it is in his role years order. We needed to give him some p.r.n. at 14:00. 01/23 The patient is grossly psychotic disrobing and sexually disinhibited we are starting Haldol 2 mg p.o. t.i.d. to target psychosis as per court order treatment over objection order. 01/24 The patient remains very agitated and angry disruptive so we are increasing the Haldol from 2 mg to 5 mg p.o. t.i.d. with a backup IM if the patient refused as per court order. 01/25 we have increased the Haldol but still he is very psychotic and restless. Today he refused his blood work. He needed to be physically held twice. 01/26 the patient remains agitated at times but his last IM backup was yesterday. We are going to increase Abilify up to 20 mg daily to target mood lability and psychosis. 01/29/2024: Increase frequency of prn doses from tid to prn q 6mrs. Poor insight and unable to care for self 02/08 pt has not take any of mood stabilizer. continues to have poor sleep, intrusive and combative requiring IM medications, increase haldol 10mg po TID, back up IM. Will add ativan 1mg po TID, also back up IM. Labs show elevated CK 2300, BUN 20, Cr 1.80, unclear baseline Cr as he does have CKD. Discussed with hospitalist Dr. Gama, to give IV fluids and monitor labs tomorrow. LFTs also elevated suspect this is secondary to elevation in CK and should trend down as CK goes down. 02/09 still agitated, creatinine and CPK slightly high as yesterday, he removed his IV line there is no big difference with IV hydration. We are changing his community role years to have more options since it is not working Abilify and Haldol 02/10 3 chemical restraints yesterday. appears more combative, and somewhat more confused. Will decrease amount of benzo and antihistamine given to him as it seems to be backfiring. did discuss with ICU attending, Dr. Whiteside possibility of transferring there but they would like us to try IV depakote and exhaust all resources prior to considering transfer. Pt did take depakote springkle 1000mg with apple sauce with much encourage. 02/11 continue tx. 02/12 continue same treatment 01/14 continue with Abilify and other court order medications, we are Nam[place] and the court order. 02/14 Team report improvement today with pt having greater comfort and less agitation. [id number] the staff reported that the patient had been less violent in the last 24 hours 02/16 continue tx. will check depakote and ammonia on 02/17 in AM. 02/17 continue regime and plan of care 02/26/2024: Continue current regimen as per court order 03/03 continue tx. lactulose for now as we don't have new ammonia level, but will try to chack labs. 03/16- continue medications, held clonidine patch for today due to low BP. repeat labs. 03/17-continue plan of care 03/18- continue tx 03/19 continue same treatment 03/20 waiting for CBC, basic metabolic panel and ammonia level. Today he nearly choked with a grape. We are going to change his diet to chopped 03/21 patient had a fall and he was assessed. No injuries as per CT scan of head and pelvis. Again he refused again his blood work vital signs within normal limits. 03/22 keep same treatment 03/23 keep same treatment 03 24 24 Continue plan of care Depakote Tegretol Haldol carbamazepine 03/25/2024 Repeat swallowing study ordered he is already on ground diet consider lowering Haldol versus Cogentin generally try to avoid older man 03/26 lowered Haldol to 7.5 p.o. b.i.d. 03/27 start Abilify Maintena 400 IM, later on we stopped it since he was over-sedated. 03/28 monitor vital signs and we will order blood work for tomorrow morning. 03/29 keep same treatment. We are deferring Abilify Maintena since the patient is still sedated and looks slightly delirious. He has refused blood work 03/31 continue current tx. less combative but no improvement in mentation. grossly disorganized and non sensical. 04/01: court ordered meds- team reviewing and optimizing same. 04/02 continue tx. 04/03 keep same treatment, so far he had been more compliant with some of the medications in the last 3 days. 04/04 start Abilify Maintena 400 mg IM 04/05 keep Haldol as prescribed 04/06 keep same treatment 04/08/24 continue current plan, regime 04/09/24 continue plan, CAT pending 04/10 continue same treatment 04/11 keep same treatment 04/12 lowering Haldol to 5 mg p.o. b.i.d. since the patient is over-sedated. 04/13 keep same treatment 04/14 agitated today, jumping around, dive off bed, crawling on all 4's, naked; took meds; now sleeping -floridly psychotic and typewriter operator automatic thought best to let pt sleep 04/16 keep same treatment 04/17 Abilify Maintena 400 mg today and scheduled next for 30 days. 04/18 change Haldol to 5 mg p.o. t.i.d. with backup IM if he refuses p.o. 04/19 keep same treatment. 04/20 keep same treatment 04/21: verbally aggressive, restless. continue 1:1 and current Tx plan. 04/22: asleep, not easily rousable. restless and irritable last gwen, slept only 4 hours overnight. continue current mgmt. 04/23 add Cogentin 0.5 p.o. b.i.d. small improvement on his psychosis 04/24 continue with same treatment. 04/25 the patient fell again. Blood pressure had been okay even though that he is noncompliant with clonidine patch. We discussed the case with the medical team and they agreed that we can discontinue since he had been noncompliant of clonidine patch since March 09. Starting on propranolol 5 mg p.o. t.i.d. to target akathisia. 04/26 continue tx. 04/27 continue tx. 04/28 reviewing labs- neutropenia and thrombocytopenia worsening Plt 88, ANC 1000, consult to mohamud/onc as plan to continue depakote given that it has been very difficult to stabilize patient. Also, pt with hx of DM, not on any medications. Will obtain A1c. continues to present disorganized, delirium-like presentation. VS are stable, BP on lower side, no need for additional medication for BP. depakote level 100.1. Ammonia level wnl. Will decrease dose of depakote given pancytopenia. 04/29 will stop depakote (one as it may be contributing to pancytopenia, second because it has not shown significant improvement in mentation), continue carbamazepine, pt seen by oncology- appreciate recommendations- 04/30 continue tx. continue to monitor ANC, Plts. oncology/hem following. 05/01 speech and thought process more organized- which is improvement. sexualized remarks, unaware of unsteady gait and weakness. will repeat CBC- continue monitor pancytopenia. 05/02/24 On lithium monitor pancytopenia wbc 3.0 less confused 05/03/24 Increase lithium 300 bid monitor response watch for confusion 05/04 continue current tx, willc heck lithium level, renal function, TSH and repeat CBC on 06/10 at 7am. may need to increase haldol 05/05/24 Continue lithium and Tegretol encourage fluids check lithium TSH electrolytes continue to monitor CBC 05/06/2024 Patient seen chart reviewed case reviewed with nursing staff. Patient was somewhat more dysphoric today tried to engage in conversation had a difficult time. He slept about 4 hours did get Haldol the other day was offered p.o. Ativan p.r.n. encourage fluids with lithium avoid nonsteroidals no gross confusion or tremor 05/07 continue tx. pending labs for lithium level, TSH, cbc on 05/10. Reason for continued inpatient stay Substantial Risk for: inability to function Time Spent With Patient Time: Total time managing care of this patient today ____ minutes.
[2024-05-07] MEDS: LORazepam 1 MG TABLET PO ×2 (16:32→19:33)
[2024-05-07 19:42] VITALS: BP 156/67; PULSE 66
[2024-05-07] MEDS: Propranolol HCL 10 MG TABLET 5 MG PO (19:42)
[2024-05-07 20:00] VITALS: BP 156/67; PULSE 66; RESP 16; TEMP 36.9; O2SAT 100
[2024-05-07] MEDS: Ferrous Sulfate 324 MG TABLET.DR PO (22:50)
[2024-05-08 08:00] VITALS: BP 102/58; PULSE 64; RESP 16; O2SAT 100
[2024-05-08] MEDS: Lithium Carbonate 300 MG TABLET PO ×2 (09:34→21:16)
[2024-05-08] MEDS: Cholecalciferol (Vitamin D3) 25 MCG TABLET 50 MCG PO (09:34)
[2024-05-08] MEDS: carBAMazepine 200 MG TABLET PO ×2 (09:34→21:16)
[2024-05-08] MEDS: Benztropine Mesylate 0.5 MG TABLET PO ×2 (09:34→21:16)
[2024-05-08] MEDS: Haloperidol Lactate Oral Conc 10 MG/5 ML ORAL.CONC 5 MG PO ×3 (09:34→21:16)
[2024-05-08] MEDS: Ferrous Sulfate 324 MG TABLET.DR PO ×2 (09:35→21:30)
--- NOTE | 2024-05-08 19:06 | P.PNPSI_ITS ---
Subjective Subjective Date of Service: 05/08/24 Reason For Visit: Schizoaffective disorder Subjective Notes: Conditional Voluntary Healthcare Proxy: Yes Interim History: Pt slept through the night. He was able to dress on his own. His thought process is so much organized. 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 He tells this underwriter solicitation director that night before he spoke with this sister and he is very glad to hear that she is doing very well, as he states she is older than him. He tells this underwriter solicitation director he is wearing casual clothing. He was visible throughout the day having appropriate conversations with peers and staff. He is oriented to month, year, place. He denies any physical concerns. He has been eating well. Pending labs on 05/10/24. Both guardian and sister were updated and pleased to know he is doing so much better. Medication Compliance: Yes Mental Status Exam Mental Status Exam Narrative: Appearance: no shirt and taking hospital gown off, poor hygiene, in NAD Behavior: cooperative Psychomotor: no agitation or retardation Speech: some problem with enunciation due to edentulous, regular rate/rhythm/volume, spontaneous. TP:linear TC:feeling better Mood: good Affect: congruent SI: denies HI: denies VH/AH: no overt signs Delusions: no overt Insight/judgment: improving x 2. Memory/cog: alert, oriented to place, month, year, somewhat to situation but much improved. Diagnostics Vital Signs (24Hr): Vital Signs - 24 hr 05/07/24 19:42 05/07/24 20:00 05/08/24 08:00 Temperature 98.4 F Pulse Rate 66 66 64 Respiratory Rate 16 16 Blood Pressure 156/67 H 156/67 H 102/58 L Pulse Oximetry 100 100 Oxygen Delivery Method Room Air Room Air BMI result Body Mass Index 25.1 Labs 05/09/24 12:59 05/09/24 10:41 Imaging Radiology Impressions: ITS Impressions Chest X-Ray 03/20/24 08:33 IMPRESSION: Extremely limited exam. Only lateral views could be obtained. Suspect basilar airspace opacity, possibly pneumonia. Electronically signed by: Fortino Dumont MD 03/20/2024 10:10 AM [facility] Cervical Spine CT 03/21/24 11:18 IMPRESSION: 1. Allowing for suboptimal positioning, there is no CT evidence of acute cervical spine fracture or injury. 2. Degenerative changes with bulky ventral osteophytes spanning C4-C6, appearance in keeping with DISH. Electronically signed by: Fortino Dumont MD 03/21/2024 12:01 PM EST RP Head CT 03/21/24 11:18 IMPRESSION: 1. No acute intracranial abnormality. No acute fractures seen. 2. Stable chronic findings as discussed. Electronically signed by: Fortino Dumont MD 03/21/2024 11:54 AM EST RP Pelvis CT 03/21/24 11:18 IMPRESSION: 1. No acute bony abnormalities. No fractures. 2. Constipation with a large amount of stool in the rectum and sigmoid colon. 3. Mild thickening of the urinary bladder wall despite underdistention, nonspecific. Differential includes the detrusor hypertrophy, neurogenic bladder, or possibly cystitis. Electronically signed by: Fortino Dumont MD 03/21/2024 12:09 PM EST RP Head CT 03/28/24 09:37 IMPRESSION: No acute fracture, bony calvarium. No acute intracranial hemorrhage. Small vessel occlusive disease. Bifrontal bitemporal lobe atrophy. Electronically signed by: Juan Corrigan MD 03/28/2024 10:19 AM EST RP Head CT 04/25/24 12:22 IMPRESSION: No acute intracranial process seen. Electronically signed by: Ritchie Marte MD 04/25/2024 01:01 PM EST RP Medications Medications Current Medications Acetaminophen (Acetaminophen 325 Mg Tablet) 650 mg PO Q6H PRN PRN Reason: Headache/Pain Mild Scale (1-3) Last Admin: 01/17/24 23:53 Dose: 325 mg Al Hydroxide/Mg Hydroxide (Magnesium Hydrox/Alum Hydrox 30 Ml Oral.Susp) 30 ml PO Q6H PRN PRN Reason: Heartburn/Nausea Aripiprazole (Aripiprazole Er 400 Mg Suser.Syr) 400 mg IM Q30D KASIA Aspirin (Aspirin 81 Mg Tab.Chew) 81 mg PO DAILY [facility] Last Admin: 04/23/24 08:34 Dose: 81 mg Benztropine Mesylate (Benztropine Mesylate 0.5 Mg Tablet) 0.5 mg PO BID [facility] Last Admin: 05/08/24 09:34 Dose: 0.5 mg Carbamazepine (Carbamazepine 200 Mg Tablet) 200 mg PO BID [facility] Last Admin: 05/08/24 09:34 Dose: 200 mg Ferrous Sulfate (Ferrous Sulfate 324 Mg Tablet.Dr) 324 mg PO BID [facility] Last Admin: 05/08/24 09:35 Dose: 324 mg Haloperidol Lactate (Haloperidol Lactate Oral Conc 10 Mg/5 Ml Oral.Conc) 5 mg PO Q6H PRN PRN Reason: Psychosis or severe agitation Last Admin: 05/05/24 02:37 Dose: 5 mg Haloperidol Lactate (Haloperidol Lactate 5 Mg/Ml Vial) 5 mg IM TID PRN PRN Reason: Refusal of Court PO Haldol Last Admin: 05/06/24 00:36 Dose: 5 mg Haloperidol Lactate (Haloperidol Lactate Oral Conc 10 Mg/5 Ml Oral.Conc) 5 mg PO TID [facility] Last Admin: 05/08/24 15:52 Dose: 5 mg [place] Carbonate ([place] Carbonate 300 Mg Tablet) 300 mg PO BID [facility] Last Admin: 05/08/24 09:34 Dose: 300 mg Lorazepam (Lorazepam 1 Mg Tablet) 1 mg PO Q6H PRN PRN Reason: Anxiety Last Admin: 05/07/24 19:33 Dose: 1 mg Magnesium Hydroxide (Milk Of Magnesia 30 Ml Oral.Susp) 30 ml PO DAILY PRN PRN Reason: Constipation Nicotine Polacrilex (Nicotine Polacrilex 2 Mg Gum) 2 mg BUCCAL Q2H PRN PRN Reason: Nicotine Cravings Propranolol HCl (Propranolol Hcl 10 Mg Tablet) 5 mg PO TID [facility]; Protocol Last Admin: 05/08/24 15:52 Dose: Not Given Trazodone HCl (Trazodone Hcl 50 Mg Tablet) 50 mg PO BEDTIME PRN PRN Reason: Insomnia Last Admin: 05/05/24 02:36 Dose: 50 mg Vitamin D (Cholecalciferol (Vitamin D3) 25 Mcg Tablet) 50 mcg PO DAILY [facility] Last Admin: 05/08/24 09:34 Dose: 50 mcg Allergies Allergies Allergy/AdvReac Type Severity Reaction Status Date / Time lithium Allergy Unknown Verified 01/13/24 18:08 divalproex sodium AdvReac Severe encephalopa Verified 05/08/24 12:34 [From Depakote] thy Assessment & Plan Assessment & Plan (1) Schizoaffective disorder, bipolar type: Status: Acute Code(s): F25.0 - Schizoaffective disorder, bipolar type (2) Diabetes mellitus: Status: Acute Code(s): E11.9 - Type 2 diabetes mellitus without complications Assessment and Plan: A1c on 04/28 5.9% (3) Hypertension: Status: Acute Code(s): I10 - Essential (primary) hypertension (4) Pancytopenia: Status: Acute Code(s): D61.818 - Other pancytopenia Plan 03/23 keep same treatment 68 yo from a long-term with chronic psychotic disorder, refusing medication , elevated bp and disorganized and agitated behavior requiring psychiatric hospitalization and treatment not competent to sign cv. 01/14 continue to follow - gave lambs warning today- and he says the vp cardiovascular service line will be a she- still refusing medications and quite psychotic takes alot of redirection to settle him poor adls- 01/15- Refuses meds, refuses hospitalist consult-second day File for Section [place] consideration on 01/17. Provide care as he will allow. 01/16: Depakote 250 mg bid Haldol, Lorazepam, Benadryl prn Section 7 to be filed 01/17 Message left for guardian. 01/17: Section Seven filed. . Court scheduled 01/26/24 Pt continues to refuse medicaitons. He is in need of full assist with ADL's and is incontinent. Pt transferred to [facility] this afternoon. 01/19/2024 Patient pending civil commitment loud agitated would not engage in any conversation with this underwriter solicitation director non informational healing agitated verbally aggressive. Every attempt being made to get a copy of the patient's Servin order unclear why this has been so problematic. Encourage food and fluids 01/19 continue same treatment 01/21/24 Patient labile agitated intrusive close labs ordered in order to per to protect the community patient wandering into patient's rooms intrusive impulsive laying on another person's bed. Often hostile agitated posturing at times we are still pending copy of reported Servin order encourage p.o. compliance 01/22/2024 Patient did require physical hold escort him out of a room that he jumped in other patient's room and on their bed while there were in it. There was no physical harm and the patient did leave the room his markedly impulsive with poor judgment remains on close observation has intermittently taken Haldol liquid pending civil commitment treatment plan there is a question of Servin order 01/22 The patient had been more agitated. We review his Servin order and we are increasing the Abilify up to 15 mg p.o. daily and adding Haldol p.r.n. since it is in his role years order. We needed to give him some p.r.n. at 14:00. 01/23 The patient is grossly psychotic disrobing and sexually disinhibited we are starting Haldol 2 mg p.o. t.i.d. to target psychosis as per court order treatment over objection order. 01/24 The patient remains very agitated and angry disruptive so we are increasing the Haldol from 2 mg to 5 mg p.o. t.i.d. with a backup IM if the patient refused as per court order. 01/25 we have increased the Haldol but still he is very psychotic and restless. Today he refused his blood work. He needed to be physically held twice. 01/26 the patient remains agitated at times but his last IM backup was yesterday. We are going to increase Abilify up to 20 mg daily to target mood lability and psychosis. 01/29/2024: Increase frequency of prn doses from tid to prn q 6mrs. Poor insight and unable to care for self 02/08 pt has not take any of mood stabilizer. continues to have poor sleep, intrusive and combative requiring IM medications, increase haldol 10mg po TID, back up IM. Will add ativan 1mg po TID, also back up IM. Labs show elevated CK 2300, BUN 20, Cr 1.80, unclear baseline Cr as he does have CKD. Discussed with hospitalist Dr. Gama, to give IV fluids and monitor labs tomorrow. LFTs also elevated suspect this is secondary to elevation in CK and should trend down as CK goes down. 02/09 still agitated, creatinine and CPK slightly high as yesterday, he removed his IV line there is no big difference with IV hydration. We are changing his community role years to have more options since it is not working Abilify and Haldol 02/10 3 chemical restraints yesterday. appears more combative, and somewhat more confused. Will decrease amount of benzo and antihistamine given to him as it seems to be backfiring. did discuss with ICU attending, Dr. Whiteside possibility of transferring there but they would like us to try IV depakote and exhaust all resources prior to considering transfer. Pt did take depakote springkle 1000mg with apple sauce with much encourage. 02/11 continue tx. 02/12 continue same treatment 01/14 continue with Abilify and other court order medications, we are Namenda and the court order. 02/14 Team report improvement today with pt having greater comfort and less agitation. [id number] the staff reported that the patient had been less violent in the last 24 hours 02/16 continue tx. will check depakote and ammonia on 02/17 in AM. 02/17 continue regime and plan of care 02/26/2024: Continue current regimen as per court order 03/03 continue tx. lactulose for now as we don't have new ammonia level, but will try to chack labs. 03/16- continue medications, held clonidine patch for today due to low BP. repeat labs. 03/17-continue plan of care 03/18- continue tx 03/19 continue same treatment 03/20 waiting for CBC, basic metabolic panel and ammonia level. Today he nearly choked with a grape. We are going to change his diet to chopped 03/21 patient had a fall and he was assessed. No injuries as per CT scan of head and pelvis. Again he refused again his blood work vital signs within normal limits. 03/22 keep same treatment 03/23 keep same treatment 03 24 24 Continue plan of care Depakote Tegretol Haldol carbamazepine 03/25/2024 Repeat swallowing study ordered he is already on ground diet consider lowering Haldol versus Cogentin generally try to avoid older man 03/26 lowered Haldol to 7.5 p.o. b.i.d. 03/27 start Abilify Maintena 400 IM, later on we stopped it since he was over- sedated. 03/28 monitor vital signs and we will order blood work for tomorrow morning. 03/29 keep same treatment. We are deferring Abilify Maintena since the patient is still sedated and looks slightly delirious. He has refused blood work 03/31 continue current tx. less combative but no improvement in mentation. grossly disorganized and non sensical. 04/01: court ordered meds- team reviewing and optimizing same. 04/02 continue tx. 04/03 keep same treatment, so far he had been more compliant with some of the medications in the last 3 days. 04/04 start Abilify Maintena 400 mg IM 04/05 keep Haldol as prescribed 04/06 keep same treatment 04/08/24 continue current plan, regime 04/09/24 continue plan, CAT pending 04/10 continue same treatment 04/11 keep same treatment 04/12 lowering Haldol to 5 mg p.o. b.i.d. since the patient is over-sedated. 04/13 keep same treatment 04/14 agitated today, jumping around, dive off bed, crawling on all 4's, naked; took meds; now sleeping -floridly psychotic and underwriter solicitation director thought best to let pt sleep 04/16 keep same treatment 04/17 Abilify Maintena 400 mg today and scheduled next for 30 days. 04/18 change Haldol to 5 mg p.o. t.i.d. with backup IM if he refuses p.o. 04/19 keep same treatment. 04/20 keep same treatment 04/21: verbally aggressive, restless. continue 1:1 and current Tx plan. 04/22: asleep, not easily rousable. restless and irritable last gwen, slept only 4 hours overnight. continue current mgmt. 04/23 add Cogentin 0.5 p.o. b.i.d. small improvement on his psychosis 04/24 continue with same treatment. 04/25 the patient fell again. Blood pressure had been okay even though that he is noncompliant with clonidine patch. We discussed the case with the medical team and they agreed that we can discontinue since he had been noncompliant of clonidine patch since March 09. Starting on propranolol 5 mg p.o. t.i.d. to target akathisia. 04/26 continue tx. 04/27 continue tx. 04/28 reviewing labs- neutropenia and thrombocytopenia worsening Plt 88, ANC 1000, consult to mohamud/onc as plan to continue depakote given that it has been very difficult to stabilize patient. Also, pt with hx of DM, not on any medications. Will obtain A1c. continues to present disorganized, delirium-like presentation. VS are stable, BP on lower side, no need for additional medication for BP. depakote level 100.1. Ammonia level wnl. Will decrease dose of depakote given pancytopenia. 04/29 will stop depakote (one as it may be contributing to pancytopenia, second because it has not shown significant improvement in mentation), continue carbamazepine, pt seen by oncology- appreciate recommendations- 04/30 continue tx. continue to monitor ANC, Plts. oncology/hem following. 05/01 speech and thought process more organized- which is improvement. sexualized remarks, unaware of unsteady gait and weakness. will repeat CBC- continue monitor pancytopenia. 05/02/24 On lithium monitor pancytopenia wbc 3.0 less confused 05/03/24 Increase lithium 300 bid monitor response watch for confusion 05/04 continue current tx, willc heck lithium level, renal function, TSH and repeat CBC on 06/10 at 7am. may need to increase haldol 05/05/24 Continue lithium and Tegretol encourage fluids check lithium TSH electrolytes continue to monitor CBC 05/06/2024 Patient seen chart reviewed case reviewed with nursing staff. Patient was somewhat more dysphoric today tried to engage in conversation had a difficult time. He slept about 4 hours did get Haldol the other day was offered p.o. Ativan p.r.n. encourage fluids with lithium avoid nonsteroidals no gross confusion or tremor 05/07 continue tx. pending labs for lithium level, TSH, cbc on 05/10. 05/08 continue tx. change to 5 minute check Reason for continued inpatient stay Substantial Risk for: inability to function Time Spent With Patient Time: Total time managing care of this patient today ____ minutes.
[2024-05-08 19:47] VITALS: RESP 16
[2024-05-08] MEDS: traZODone HCL 50 MG TABLET PO (21:16)
[2024-05-08 21:21] VITALS: BP 138/65; PULSE 55
[2024-05-09] VITALS (8 sets, daily range): BP systolic 114–170; BP diastolic 57–75; PULSE 53–76; RESP 16; TEMP 36.3–37.1; O2SAT 98–100
--- NOTE | 2024-05-09 | EEG_ITS ---
This is a 16-channel EEG with an EKG lead. The patient is reported awake and restless during the tracing. Background EEG rhythm is about 10 hertz or faster 5 to 20 microvolt posteriorly, lower amplitude fast anteriorly. Photic stimulation does not produce any significant abnormality. Hyperventilation is not performed. Cardiac lead does not reveal any significant abnormality. No sharp wave spikes or paroxysmal tendency noted. IMPRESSION: Unremarkable EEG. MD KANA Mendoza/KEN / [id number]
[2024-05-09 10:28] LABS: Glucose, Whole Blood 124 mg/dL (60-115)
--- NOTE | 2024-05-09 10:52 | PC.NURSE ---
Patient OOB for breakfast, consumed 100%. His vitals at am as follow:123/58, P 73, T 97.6, O2sat 98% on RA. BTB after breakfast. Hard to wake up for medications. Does not responding to verbal stimuli or chest rub. Rebecca Seth notified. Re-check VS as follow; BP 114/58, P 64, T 98.6, O2sat 100% on RA. Respirations even and regular, unlabored. New orders for labs. Will continue to monitor.
[2024-05-09 11:35] LABS: Lithium 0.55 mmol/L (0.60-1.20)
[2024-05-09 11:44] LABS: Alanine Aminotransferase 23 U/L (0-40); Albumin Level 3.5 g/dL (3.5-5.0); Alkaline Phosphatase 121 U/L (39-117); Anion Gap 9 (12-20); Aspartate Amino Transferase 19 U/L (5-37); Bilirubin Total 0.2 mg/dL (0.0-1.0); Blood Urea Nitrogen 23 mg/dL (9-16); Calcium 9.1 mg/dL (8.4-10.2); Carbon Dioxide 25 mmol/L (22-29); Chloride 110 mmol/L (96-108); Creatinine Clr Calc Pharmacy 48.8; Estimated Glomerular Filt Rate 46; Glucose Random 124 mg/dL (60-115); Potassium 5.2 mmol/L (3.3-5.1); Sodium 139 mmol/L (135-145); Total Protein 6.5 g/dL (6.5-8.0)
--- NOTE | 2024-05-09 12:18 | P.EN_ITS ---
Event Note Date of Service: 05/09/24 Event Note: Pt is a 68-year-old male admitted to [facility] with hospitalist consult for evaluation of unresponsiveness and seizure-like activity. Upon arrival to [facility] pt initially had been doing very poorly, but was recently taken off Depakote due to delirium and started lithium and carbamazepine with good effect. For the past 10 days pt has had a remarkable change in demeanor, dressing himself and carrying coherent conversations with staff and clinicians. However, staff have noticed that pt will occasionally stopped speaking and stare ahead with fluttering eyes and rolling his eyes in the back of his head for brief moments of time. This morning pt woke, dressed himself, and ate breakfast. Was coherent and alert and oriented. Pt then went back to bed at approximately 09:00 and since then has been unresponsive and not waking up to verbal or painful stimuli. Pt also noted to have seizure-like activity with rolling and fluttering his eyes. Pt noted to resist opening of his eyes. Will hold arms above head without dropping them. Not following commands. Vital signs stable. Plan: Will give Ativan 2mg IM for possible complex partial seizure EEG, neurology consult Check CBC, BMP, lithium level Will continue to follow along for now. Time Spent With Patient Time: Total time managing care of this patient today ____ minutes.
[2024-05-09] MEDS: LORazepam 2 MG/ML VIAL IM (12:21)
[2024-05-09 13:04] LABS: MANUAL DIFF FLAG NO
[2024-05-09 13:09] LABS: Basophils Percent Auto 0.4 % (0-2); Eosinophils Absolute Auto 0.1 X10*3/uL (0.0-0.4); Eosinophils Percent Auto 2.9 % (0-4); Hematocrit 33.3 % (42.0-52.0); Hemoglobin 11.1 g/dl (14.0-18.0); Imm Gran Abs Auto 0.01 X10*3/uL (0.00-0.03); Imm Gran Pct Auto 0.2 % (0.0-0.4); Lymphocytes Absolute Auto 1.9 X10*3/uL (1.2-4.9); Lymphocytes Percent Auto 39.4 % (20-40); Mean Corpuscular HGB Conc 33.3 g/dl (31.0-36.0); Mean Corpuscular Hemoglobin 30.1 pg (27.0-33.0); Mean Corpuscular Volume 90.2 fL (80.0-98.0); Mean Platelet Volume 9.5 fL (9.4-12.4); Monocytes Absolute Auto 0.4 X10*3/uL (0.1-1.2); Monocytes Percent Auto 8.8 % (2-11); Neutrophils Absolute Auto 2.3 x10*3/uL (2.0-8.3); Neutrophils Percent Auto 48.3 % (45-73); Platelet Count 146 X10*3/uL (160-400); Red Blood Count 3.69 X10*6/uL (4.60-5.80); White Blood Count 4.8 X10*3/uL (4.8-10.8)
[2024-05-09 13:20] LABS: Lactic Acid 1.7 mmol/L (0.5-2.0)
[2024-05-09 13:42] LABS: TSH reflex Free T4 3.42 uIU/mL (0.32-4.0)
[2024-05-09] MEDS: Sodium Zirconium Cyclosilicate 5 GM POWD.PACK PO (14:15)
[2024-05-09] MEDS: Haloperidol Lactate Oral Conc 10 MG/5 ML ORAL.CONC 5 MG PO ×2 (16:07→20:52)
[2024-05-09] MEDS: Propranolol HCL 10 MG TABLET 5 MG PO ×2 (16:23→21:26)
--- NOTE | 2024-05-09 18:22 | PC.NURSE ---
Pt seen by the hospitalistIsiah, catracho orders. Bret woke up shortly after IM Ativan. Alert, able to converse with staff. Visible in a milieu, social with peers in an outside area. Compliant with PM meds. Sodium Zirconium given as ordered, fluids encouraged. EEG completed/unremarkable. Visible in a common area after supper, watching TV. VSS. Will continue to monitor.
[2024-05-09] MEDS: carBAMazepine 200 MG TABLET 300 MG PO (20:53)
[2024-05-09] MEDS: Lithium Carbonate 300 MG TABLET 150 MG PO (20:57)
[2024-05-09] MEDS: traZODone HCL 50 MG TABLET PO (20:57)
[2024-05-09] MEDS: Benztropine Mesylate 0.5 MG TABLET PO (20:57)
[2024-05-09] MEDS: Ferrous Sulfate 324 MG TABLET.DR PO (21:27)
--- NOTE | 2024-05-09 22:08 | HO.PSYCHPN ---
Subjective Subjective Date of Service: 05/09/24 Reason For Visit: Schizoaffective disorder Interim History: Pt slept through the night. He was up for breakfast and later went to bed, not responding to sternal rub, noted eyes rolling, VS initiall BP 118/57--> 40 minutes after VS 170/75, HR 55, Hospitalist saw pt as well. CBC, CMP, lithium level, eeg ordered. He was given ativan 2mg IM and symptoms resolved. He was more aware, did not remember what happened but was oriented to place, month and year. eeg was normal. Medication Compliance: Yes Review of Systems Review of Systems s/p fall Yes Unobtainable due to mental status Mental Status Exam Mental Status Exam Narrative: Appearance: no shirt and taking hospital gown off, poor hygiene, in NAD Behavior: cooperative Psychomotor: no agitation or retardation Speech: some problem with enunciation due to edentulous, regular rate/rhythm/volume, spontaneous. TP:linear TC:feeling better Mood: good Affect: congruent SI: denies HI: denies VH/AH: no overt signs Delusions: no overt Insight/judgment: improving x 2. Memory/cog: alert, oriented to place, month, year, somewhat to situation but much improved. Diagnostics Vital Signs (24Hr): Vital Signs - 24 hr 05/09/24 08:00 05/09/24 10:30 05/09/24 11:04 Temperature 97.6 F 98.6 F 98.4 F Pulse Rate 73 64 53 Respiratory Rate 16 16 16 Blood Pressure 123/58 L 114/58 L 118/57 L Pulse Oximetry 98 100 99 Oxygen Delivery Method Room Air Room Air Room Air 05/09/24 11:33 05/09/24 12:04 05/09/24 16:20 Temperature 98.8 F 97.3 F Pulse Rate 55 55 76 Respiratory Rate 16 16 Blood Pressure 170/75 H 144/67 H 128/68 Pulse Oximetry 100 100 Oxygen Delivery Method Room Air Room Air 05/09/24 16:20 05/09/24 16:23 05/09/24 20:59 Temperature 97.8 F Pulse Rate 76 76 62 Respiratory Rate 16 Blood Pressure 128/68 128/68 123/62 Pulse Oximetry 99 Oxygen Delivery Method Room Air BMI result Body Mass Index 25.1 Labs 05/09/24 12:59 05/09/24 10:41 Labs: Laboratory Results - last 48 hr 05/09/24 05/09/24 05/09/24 10:24 10:41 12:59 WBC 4.8 RBC 3.69 L Hgb 11.1 L Hct 33.3 L MCV 90.2 MCH 30.1 MCHC 33.3 RDW 17.0 H Plt Count 146 L D MPV 9.5 Immature Gran % (Auto) 0.2 Neut % (Auto) 48.3 Lymph % (Auto) 39.4 [place] % (Auto) 8.8 Eos % (Auto) 2.9 Baso % (Auto) 0.4 Lymph # (Auto) 1.9 [place] # (Auto) 0.4 Eos # (Auto) 0.1 Baso # (Auto) 0.0 Abs Immat Gran (auto) 0.01 Absolute Neuts (auto) 2.3 Absolute Nucleated RBC 0.000 Nucleated RBC % (auto) 0.0 Sodium 139 Potassium 5.2 H Chloride 110 H Carbon Dioxide 25 Anion Gap 9 L BUN 23 H Creatinine 1.50 H Estim Creat Clear Calc 48.8 Estimated GFR 46 POC Glucose 124 H Random Glucose 124 H Lactic Acid 1.7 Calcium 9.1 Total Bilirubin 0.2 AST 19 ALT 23 Alkaline Phosphatase 121 H Total Protein 6.5 Albumin 3.5 TSH 3.42 [place] 0.55 L Imaging Radiology Impressions: ITS Impressions Chest X-Ray 03/20/24 08:33 IMPRESSION: Extremely limited exam. Only lateral views could be obtained. Suspect basilar airspace opacity, possibly pneumonia. Electronically signed by: Fortino Dumont MD 03/20/2024 10:10 AM EST RP Cervical Spine CT 03/21/24 11:18 IMPRESSION: 1. Allowing for suboptimal positioning, there is no CT evidence of acute cervical spine fracture or injury. 2. Degenerative changes with bulky ventral osteophytes spanning C4-C6, appearance in keeping with DISH. Electronically signed by: Fortino Dumont MD 03/21/2024 12:01 PM EST RP Head CT 03/21/24 11:18 IMPRESSION: 1. No acute intracranial abnormality. No acute fractures seen. 2. Stable chronic findings as discussed. Electronically signed by: Fortino Dumont MD 03/21/2024 11:54 AM EST RP Pelvis CT 03/21/24 11:18 IMPRESSION: 1. No acute bony abnormalities. No fractures. 2. Constipation with a large amount of stool in the rectum and sigmoid colon. 3. Mild thickening of the urinary bladder wall despite underdistention, nonspecific. Differential includes the detrusor hypertrophy, neurogenic bladder, or possibly cystitis. Electronically signed by: Fortino Dumont MD 03/21/2024 12:09 PM EST RP Head CT 03/28/24 09:37 IMPRESSION: No acute fracture, bony calvarium. No acute intracranial hemorrhage. Small vessel occlusive disease. Bifrontal bitemporal lobe atrophy. Electronically signed by: Juan Corrigan MD 03/28/2024 10:19 AM EST RP Head CT 04/25/24 12:22 IMPRESSION: No acute intracranial process seen. Electronically signed by: Ritchei Marte MD 04/25/2024 01:01 PM EST RP Medications Medications Current Medications Acetaminophen (Acetaminophen 325 Mg Tablet) 650 mg PO Q6H PRN PRN Reason: Headache/Pain Mild Scale (1-3) Last Admin: 01/17/24 23:53 Dose: 325 mg Al Hydroxide/Mg Hydroxide (Magnesium Hydrox/Alum Hydrox 30 Ml Oral.Susp) 30 ml PO Q6H PRN PRN Reason: Heartburn/Nausea Aripiprazole (Aripiprazole Er 400 Mg Suser.Syr) 400 mg IM Q30D [facility] Aspirin (Aspirin 81 Mg Tab.Chew) 81 mg PO DAILY [facility] Last Admin: 04/23/24 08:34 Dose: 81 mg Benztropine Mesylate (Benztropine Mesylate 0.5 Mg Tablet) 0.5 mg PO BID [facility] Last Admin: 05/09/24 20:57 Dose: 0.5 mg Carbamazepine (Carbamazepine 200 Mg Tablet) 300 mg PO BID [facility] Last Admin: 05/09/24 20:53 Dose: 300 mg Ferrous Sulfate (Ferrous Sulfate 324 Mg Tablet.Dr) 324 mg PO BID [facility] Last Admin: 05/09/24 21:27 Dose: 324 mg Haloperidol Lactate (Haloperidol Lactate Oral Conc 10 Mg/5 Ml Oral.Conc) 5 mg PO Q6H PRN PRN Reason: Psychosis or severe agitation Last Admin: 05/05/24 02:37 Dose: 5 mg Haloperidol Lactate (Haloperidol Lactate 5 Mg/Ml Vial) 5 mg IM TID PRN PRN Reason: Refusal of Court PO Haldol Last Admin: 05/06/24 00:36 Dose: 5 mg Haloperidol Lactate (Haloperidol Lactate Oral Conc 10 Mg/5 Ml Oral.Conc) 5 mg PO TID [facility] Last Admin: 05/09/24 20:52 Dose: 5 mg [place] Carbonate ([place] Carbonate 300 Mg Tablet) 150 mg PO BID [facility] Last Admin: 05/09/24 20:57 Dose: 150 mg Lorazepam (Lorazepam 1 Mg Tablet) 1 mg PO Q6H PRN PRN Reason: Anxiety Last Admin: 05/07/24 19:33 Dose: 1 mg Magnesium Hydroxide (Milk Of Magnesia 30 Ml Oral.Susp) 30 ml PO DAILY PRN PRN Reason: Constipation Nicotine Polacrilex (Nicotine Polacrilex 2 Mg Gum) 2 mg BUCCAL Q2H PRN PRN Reason: Nicotine Cravings Propranolol HCl (Propranolol Hcl 10 Mg Tablet) 5 mg PO TID [facility]; Protocol Last Admin: 05/09/24 16:23 Dose: 5 mg Trazodone HCl (Trazodone Hcl 50 Mg Tablet) 50 mg PO BEDTIME PRN PRN Reason: Insomnia Last Admin: 05/09/24 20:57 Dose: 50 mg Vitamin D (Cholecalciferol (Vitamin D3) 25 Mcg Tablet) 50 mcg PO DAILY [facility] Last Admin: 05/09/24 12:25 Dose: Not Given Allergies Allergies Allergy/AdvReac Type Severity Reaction Status Date / Time lithium Allergy Unknown Verified 01/13/24 18:08 divalproex sodium AdvReac Severe encephalopa Verified 05/08/24 12:34 [From [facility]] thy Assessment & Plan Assessment & Plan (1) Schizoaffective disorder, bipolar type: Status: Acute Code(s): F25.0 - Schizoaffective disorder, bipolar type (2) Diabetes mellitus: Status: Acute Code(s): E11.9 - Type 2 diabetes mellitus without complications Assessment and Plan: A1c on 04/28 5.9% (3) Hypertension: Status: Acute Code(s): I10 - Essential (primary) hypertension (4) Pancytopenia: Status: Acute Code(s): D61.818 - Other pancytopenia Plan 03/23 keep same treatment 68 yo from a correction with chronic psychotic disorder, refusing medication , elevated bp and disorganized and agitated behavior requiring psychiatric hospitalization and treatment not competent to sign cv. 01/14 continue to follow - gave lambs warning today- and he says the magistrate judge will be a she- still refusing medications and quite psychotic takes alot of redirection to settle him poor adls- 01/15- Refuses meds, refuses hospitalist consult-second day File for Section [place] consideration on 01/17. Provide care as he will allow. 01/16: Depakote 250 mg bid Haldol, Lorazepam, Benadryl prn Section 7 to be filed 01/17 Message left for guardian. 01/17: Section Seven filed. . Court scheduled 01/26/24 Pt continues to refuse medicaitons. He is in need of full assist with ADL's and is incontinent. Pt transferred to [facility] this afternoon. 01/19/2024 Patient pending civil commitment loud agitated would not engage in any conversation with this freelance writer non informational healing agitated verbally aggressive. Every attempt being made to get a copy of the patient's Servin order unclear why this has been so problematic. Encourage food and fluids 01/19 continue same treatment 01/21/24 Patient labile agitated intrusive close labs ordered in order to per to protect the community patient wandering into patient's rooms intrusive impulsive laying on another person's bed. Often hostile agitated posturing at times we are still pending copy of reported Servin order encourage p.o. compliance 01/22/2024 Patient did require physical hold escort him out of a room that he jumped in other patient's room and on their bed while there were in it. There was no physical harm and the patient did leave the room his markedly impulsive with poor judgment remains on close observation has intermittently taken Haldol liquid pending civil commitment treatment plan there is a question of Servin order 01/22 The patient had been more agitated. We review his Servin order and we are increasing the Abilify up to 15 mg p.o. daily and adding Haldol p.r.n. since it is in his role years order. We needed to give him some p.r.n. at 14:00. 01/23 The patient is grossly psychotic disrobing and sexually disinhibited we are starting Haldol 2 mg p.o. t.i.d. to target psychosis as per court order treatment over objection order. 01/24 The patient remains very agitated and angry disruptive so we are increasing the Haldol from 2 mg to 5 mg p.o. t.i.d. with a backup IM if the patient refused as per court order. 01/25 we have increased the Haldol but still he is very psychotic and restless. Today he refused his blood work. He needed to be physically held twice. 01/26 the patient remains agitated at times but his last IM backup was yesterday. We are going to increase Abilify up to 20 mg daily to target mood lability and psychosis. 01/29/2024: Increase frequency of prn doses from tid to prn q 6mrs. Poor insight and unable to care for self 02/08 pt has not take any of mood stabilizer. continues to have poor sleep, intrusive and combative requiring IM medications, increase haldol 10mg po TID, back up IM. Will add ativan 1mg po TID, also back up IM. Labs show elevated CK 2300, BUN 20, Cr 1.80, unclear baseline Cr as he does have CKD. Discussed with hospitalist Dr. Gama, to give IV fluids and monitor labs tomorrow. LFTs also elevated suspect this is secondary to elevation in CK and should trend down as CK goes down. 02/09 still agitated, creatinine and CPK slightly high as yesterday, he removed his IV line there is no big difference with IV hydration. We are changing his community role years to have more options since it is not working Abilify and Haldol 02/10 3 chemical restraints yesterday. appears more combative, and somewhat more confused. Will decrease amount of benzo and antihistamine given to him as it seems to be backfiring. did discuss with ICU attending, Dr. Whiteside possibility of transferring there but they would like us to try IV depakote and exhaust all resources prior to considering transfer. Pt did take depakote springkle 1000mg with apple sauce with much encourage. 02/11 continue tx. 02/12 continue same treatment 01/14 continue with Abilify and other court order medications, we are Nam[place] and the court order. 02/14 Team report improvement today with pt having greater comfort and less agitation. [id number] the staff reported that the patient had been less violent in the last 24 hours 02/16 continue tx. will check depakote and ammonia on 02/17 in AM. 02/17 continue regime and plan of care 02/26/2024: Continue current regimen as per court order 03/03 continue tx. lactulose for now as we don't have new ammonia level, but will try to chack labs. 03/16- continue medications, held clonidine patch for today due to low BP. repeat labs. 03/17-continue plan of care 03/18- continue tx 03/19 continue same treatment 03/20 waiting for CBC, basic metabolic panel and ammonia level. Today he nearly choked with a grape. We are going to change his diet to chopped 03/21 patient had a fall and he was assessed. No injuries as per CT scan of head and pelvis. Again he refused again his blood work vital signs within normal limits. 03/22 keep same treatment 03/23 keep same treatment 03 24 24 Continue plan of care Depakote Tegretol Haldol carbamazepine 03/25/2024 Repeat swallowing study ordered he is already on ground diet consider lowering Haldol versus Cogentin generally try to avoid older man 03/26 lowered Haldol to 7.5 p.o. b.i.d. 03/27 start Abilify Maintena 400 IM, later on we stopped it since he was over-sedated. 03/28 monitor vital signs and we will order blood work for tomorrow morning. 03/29 keep same treatment. We are deferring Abilify Maintena since the patient is still sedated and looks slightly delirious. He has refused blood work 03/31 continue current tx. less combative but no improvement in mentation. grossly disorganized and non sensical. 04/01: court ordered meds- team reviewing and optimizing same. 04/02 continue tx. 04/03 keep same treatment, so far he had been more compliant with some of the medications in the last 3 days. 04/04 start Abilify Maintena 400 mg IM 04/05 keep Haldol as prescribed 04/06 keep same treatment 04/08/24 continue current plan, regime 04/09/24 continue plan, CAT pending 04/10 continue same treatment 04/11 keep same treatment 04/12 lowering Haldol to 5 mg p.o. b.i.d. since the patient is over-sedated. 04/13 keep same treatment 04/14 agitated today, jumping around, dive off bed, crawling on all 4's, naked; took meds; now sleeping -floridly psychotic and freelance writer thought best to let pt sleep 04/16 keep same treatment 04/17 Abilify Maintena 400 mg today and scheduled next for 30 days. 04/18 change Haldol to 5 mg p.o. t.i.d. with backup IM if he refuses p.o. 04/19 keep same treatment. 04/20 keep same treatment 04/21: verbally aggressive, restless. continue 1:1 and current Tx plan. 04/22: asleep, not easily rousable. restless and irritable last gwen, slept only 4 hours overnight. continue current mgmt. 04/23 add Cogentin 0.5 p.o. b.i.d. small improvement on his psychosis 04/24 continue with same treatment. 04/25 the patient fell again. Blood pressure had been okay even though that he is noncompliant with clonidine patch. We discussed the case with the medical team and they agreed that we can discontinue since he had been noncompliant of clonidine patch since March 09. Starting on propranolol 5 mg p.o. t.i.d. to target akathisia. 04/26 continue tx. 04/27 continue tx. 04/28 reviewing labs- neutropenia and thrombocytopenia worsening Plt 88, ANC 1000, consult to mohamud/onc as plan to continue depakote given that it has been very difficult to stabilize patient. Also, pt with hx of DM, not on any medications. Will obtain A1c. continues to present disorganized, delirium-like presentation. VS are stable, BP on lower side, no need for additional medication for BP. depakote level 100.1. Ammonia level wnl. Will decrease dose of depakote given pancytopenia. 04/29 will stop depakote (one as it may be contributing to pancytopenia, second because it has not shown significant improvement in mentation), continue carbamazepine, pt seen by oncology- appreciate recommendations- 04/30 continue tx. continue to monitor ANC, Plts. oncology/hem following. 05/01 speech and thought process more organized- which is improvement. sexualized remarks, unaware of unsteady gait and weakness. will repeat CBC- continue monitor pancytopenia. 05/02/24 On lithium monitor pancytopenia wbc 3.0 less confused 05/03/24 Increase lithium 300 bid monitor response watch for confusion 05/04 continue current tx, willc heck lithium level, renal function, TSH and repeat CBC on 06/10 at 7am. may need to increase haldol 05/05/24 Continue lithium and Tegretol encourage fluids check lithium TSH electrolytes continue to monitor CBC 05/06/2024 Patient seen chart reviewed case reviewed with nursing staff. Patient was somewhat more dysphoric today tried to engage in conversation had a difficult time. He slept about 4 hours did get Haldol the other day was offered p.o. Ativan p.r.n. encourage fluids with lithium avoid nonsteroidals no gross confusion or tremor 05/07 continue tx. pending labs for lithium level, TSH, cbc on 05/10. 05/08 continue tx. 05/09 pt appeared to have seizure, was given ativan 2mg IM, CMP does show elevation in BUN 23, and elevation on Cr 1.50, mild hyperkalemia 5.2. CBC shows improvement in platelets 88 to 146, ANC also improved from 800 to 2300. normocytic anemia with Hg 11, stable H&H. will decreased lithium 150mg po BID. Increase carbamazepine to 300mg po BID. Awaiting recommendation from neurology. Reason for continued inpatient stay Substantial Risk for: inability to function Time Spent With Patient Time: Total time managing care of this patient today ____ minutes.
[2024-05-10 08:00] VITALS: BP 120/70; PULSE 72; RESP 14; TEMP 36.1; O2SAT 98
[2024-05-10] MEDS: Lithium Carbonate 300 MG TABLET 150 MG PO ×2 (08:35→21:39)
[2024-05-10 08:36] VITALS: BP 120/70; PULSE 72
[2024-05-10] MEDS: Propranolol HCL 10 MG TABLET 5 MG PO (08:36)
[2024-05-10] MEDS: Ferrous Sulfate 324 MG TABLET.DR PO ×2 (08:37→21:40)
[2024-05-10] MEDS: carBAMazepine 200 MG TABLET 300 MG PO ×2 (08:37→21:38)
[2024-05-10] MEDS: Benztropine Mesylate 0.5 MG TABLET PO ×2 (08:38→21:40)
[2024-05-10] MEDS: Haloperidol Lactate Oral Conc 10 MG/5 ML ORAL.CONC 5 MG PO ×3 (08:38→21:38)
[2024-05-10] MEDS: Cholecalciferol (Vitamin D3) 25 MCG TABLET 50 MCG PO (08:38)
--- NOTE | 2024-05-10 10:17 | PM.NEUROCN ---
History of Present Illness Data of Consult Service Date: 05/10/24 Primary Care Provider: Unknown Physician HPI Reason for consult: Encephalopathy 68 years old man [place] [facility] with diagnosis of schizoaffective disorder I was asked to see for possibility of seizure disorder. He said that he did not have epilepsy or seizures. He denied having any seizure-like symptoms. Apparently because of his change in behavior and behavioral symptoms seizure disorder was considered. I had noticed that he had a CT scan of brain done, which did not reveal any acute abnormality. Mild generalized atrophy was noted. Review of Systems Review of Systems: No overt seizure-like symptoms [facility] [place] Social History Social History Household Members: Unknown / Unable to assess Housing: Unknown / Unable to assess Patient Tobacco Use Status: Never used Tobacco Smoked in Last 30 Days: No Patient Interested in Nicotine Replacement: No Second Hand Smoke Exposure: No Currently Displaying Signs/Symptoms of Drug Intoxication Withdrawal: No Any prior treatment program specific to substance use: No (unknown) Do you feel safe in your current relationship?: No Current Relationship Is there a partner from a previous relationship who is making you feel unsafe now?: No Are you made to feel afraid or neglected: No Advance Directives: No Advance Directives Information Provided: No Do you have thoughts of harming others: None Do you have a plan to hurt others: No Plan Recently lost weight without trying: Unsure How much weight loss: Unsure Eating poorly because of decreased appetite: No Nutrition screen score: 4 Nutrition Risks: No Nutritional Risk Meds Allergies Allergy/AdvReac Type Severity Reaction Status Date / Time lithium Allergy Unknown Verified 01/13/24 18:08 divalproex sodium AdvReac Severe encephalopa Verified 05/08/24 12:34 [From Depakote] thy Active Medications: Current Medications Acetaminophen (Acetaminophen 325 Mg Tablet) 650 mg PO Q6H PRN PRN Reason: Headache/Pain Mild Scale (1-3) Last Admin: 01/17/24 23:53 Dose: 325 mg Al Hydroxide/Mg Hydroxide (Magnesium Hydrox/Alum Hydrox 30 Ml Oral.Susp) 30 ml PO Q6H PRN PRN Reason: Heartburn/Nausea Aripiprazole (Aripiprazole Er 400 Mg Suser.Syr) 400 mg IM Q30D [facility] Aspirin (Aspirin 81 Mg Tab.Chew) 81 mg PO DAILY [facility] Last Admin: 04/23/24 08:34 Dose: 81 mg Benztropine Mesylate (Benztropine Mesylate 0.5 Mg Tablet) 0.5 mg PO BID [facility] Last Admin: 05/10/24 08:38 Dose: 0.5 mg Carbamazepine (Carbamazepine 200 Mg Tablet) 300 mg PO BID [facility] Last Admin: 05/10/24 08:37 Dose: 300 mg Ferrous Sulfate (Ferrous Sulfate 324 Mg Tablet.Dr) 324 mg PO BID [facility] Last Admin: 05/10/24 08:37 Dose: 324 mg Haloperidol Lactate (Haloperidol Lactate Oral Conc 10 Mg/5 Ml Oral.Conc) 5 mg PO Q6H PRN PRN Reason: Psychosis or severe agitation Last Admin: 05/05/24 02:37 Dose: 5 mg Haloperidol Lactate (Haloperidol Lactate 5 Mg/Ml Vial) 5 mg IM TID PRN PRN Reason: Refusal of Court PO Haldol Last Admin: 05/06/24 00:36 Dose: 5 mg Haloperidol Lactate (Haloperidol Lactate Oral Conc 10 Mg/5 Ml Oral.Conc) 5 mg PO TID [facility] Last Admin: 05/10/24 08:38 Dose: 5 mg [place] Carbonate ([place] Carbonate 300 Mg Tablet) 150 mg PO BID [facility] Last Admin: 05/10/24 08:35 Dose: 150 mg Lorazepam (Lorazepam 1 Mg Tablet) 1 mg PO Q6H PRN PRN Reason: Anxiety Last Admin: 05/07/24 19:33 Dose: 1 mg Magnesium Hydroxide (Milk Of Magnesia 30 Ml Oral.Susp) 30 ml PO DAILY PRN PRN Reason: Constipation Nicotine Polacrilex (Nicotine Polacrilex 2 Mg Gum) 2 mg BUCCAL Q2H PRN PRN Reason: Nicotine Cravings Propranolol HCl (Propranolol Hcl 10 Mg Tablet) 5 mg PO TID [facility]; Protocol Last Admin: 05/10/24 08:36 Dose: 5 mg Trazodone HCl (Trazodone Hcl 50 Mg Tablet) 50 mg PO BEDTIME PRN PRN Reason: Insomnia Last Admin: 05/09/24 20:57 Dose: 50 mg Vitamin D (Cholecalciferol (Vitamin D3) 25 Mcg Tablet) 50 mcg PO DAILY [facility] Last Admin: 05/10/24 08:38 Dose: 50 mcg Home Medications ?Medication ?Instructions ?Recorded ?Confirmed ?Last Taken ?Type amlodipine 10 mg tablet 10 mg PO DAILY 01/13/24 01/13/24 Unknown History aripiprazole 10 mg tablet 10 mg PO DAILY 01/13/24 01/13/24 Unknown History atorvastatin 40 mg tablet 40 mg PO DAILY 01/13/24 01/13/24 Unknown History deutetrabenazine 36 mg 36 mg PO DAILY 01/13/24 01/13/24 Unknown History tablet,extended release 24 hr (Austedo XR) gabapentin 300 mg capsule 300 mg PO TID 01/13/24 01/13/24 Unknown History carbamazepine 100 mg/5 mL oral 400 mg PO BID 01/14/24 01/14/24 Unknown History suspension empagliflozin 10 mg tablet 10 mg PO DAILY 01/14/24 01/14/24 Unknown History (Jardiance) glipizide 5 mg tablet 5 mg PO BID 01/14/24 01/14/24 Unknown History haloperidol lactate 2 mg/mL oral 15 mg PO BID 01/14/24 01/14/24 Unknown History concentrate levothyroxine 25 mcg tablet 25 mcg PO DAILY 01/14/24 01/14/24 Unknown History lisinopril 20 mg tablet 20 mg PO DAILY 01/14/24 01/14/24 Unknown History valproic acid (as sodium salt) 250 500 mg PO BID 01/14/24 01/14/24 Unknown History mg/5 mL oral solution Physical Exam Vital Signs: Vital Signs: Last Vital Signs Temp 96.9 F 05/10/24 08:00 Pulse 72 05/10/24 08:36 Resp 14 05/10/24 08:00 BP 120/70 05/10/24 08:36 Pulse Ox 98 05/10/24 08:00 O2 Del Method Room Air 05/10/24 08:00 BMI result Body Mass Index 25.1 Neuro: Other: He is alert and awake with normal spontaneity of speech fluency comprehension and affect. Face is symmetrical. Visual [place] are full. Pupils are equal and reactive to light. There was no focal weakness. Plantars are flexor. Speech is normal. Results Labs 05/09/24 12:59 05/09/24 10:41 Labs: Short CBC 05/09/24 Range/Units 12:59 WBC 4.8 (4.8-10.8) X10*3/uL Hgb 11.1 L (14.0-18.0) g/dl Hct 33.3 L (42.0-52.0) % Plt Count 146 L D (160-400) X10*3/uL BMP 05/09/24 10:41 Sodium 139 Potassium 5.2 H Chloride 110 H Carbon Dioxide 25 BUN 23 H Creatinine 1.50 H Calcium 9.1 Liver Function 05/09/24 Range/Units 10:41 Total Bilirubin 0.2 (0.0-1.0) mg/dL AST 19 (5-37) U/L ALT 23 (0-40) U/L Alkaline Phosphatase 121 H (39-117) U/L Albumin 3.5 (3.5-5.0) g/dL Noncontrast head CT revealed mild generalized atrophy. Assessment and Plan (1) Encephalopathy: Qualifiers: Encephalopathy type: unspecified encephalopathy Qualified Code(s): G93.40 - Encephalopathy, unspecified Status: Acute Probably psychiatric disease with no overt symptoms or evidence of epilepsy. I noticed that he is on multiple antiepileptic type of medicines, which might have been started for behavioral lesions. Doing an EEG is reasonable to make further decisions. If no evidence of seizure disorder is found, when she would reconsider prescribing carbamazepine and valproic acid to avoid hematological complications. Procedures Date of Service Date of Service: 05/10/24
--- NOTE | 2024-05-10 10:19 | P.PNPSI_ITS ---
Subjective Subjective Date of Service: 05/10/24 Reason For Visit: Schizoaffective disorder Subjective Notes: Conditional Voluntary Interim History: Pt slept through the night. Pt reports doing well. He reports feeling a little bit tired but no physical concern. He continued to dress himself. He was visible during the day, kept to himself but interactions were appropriate. No behavioral concerns. He is taking medications as prescribed. pending repeat of CMP- monitor renal function. Review of Systems Review of Systems No overt seizure-like symptoms Yes Unobtainable due to mental status Mental Status Exam Mental Status Exam Narrative: Appearance: no shirt and taking hospital gown off, poor hygiene, in NAD Behavior: cooperative Psychomotor: no agitation or retardation Speech: some problem with enunciation due to edentulous, regular rate/rhythm/volume, spontaneous. TP:linear TC:feeling better Mood: good Affect: congruent SI: denies HI: denies VH/AH: no overt signs Delusions: no overt Insight/judgment: improving x 2. Memory/cog: alert, oriented to place, month, year, somewhat to situation but much improved. Diagnostics Vital Signs (24Hr): Vital Signs - 24 hr 05/09/24 10:30 05/09/24 11:04 05/09/24 11:33 Temperature 98.6 F 98.4 F 98.8 F Pulse Rate 64 53 55 Respiratory Rate 16 16 16 Blood Pressure 114/58 L 118/57 L 170/75 H Pulse Oximetry 100 99 100 Oxygen Delivery Method Room Air Room Air Room Air 05/09/24 12:04 05/09/24 16:20 05/09/24 16:20 Temperature 97.3 F Pulse Rate 55 76 76 Respiratory Rate 16 16 Blood Pressure 144/67 H 128/68 128/68 Pulse Oximetry 100 Oxygen Delivery Method Room Air 05/09/24 16:23 05/09/24 20:59 05/10/24 08:00 Temperature 97.8 F 96.9 F Pulse Rate 76 62 72 Respiratory Rate 14 Blood Pressure 128/68 123/62 120/70 Pulse Oximetry 99 98 Oxygen Delivery Method Room Air Room Air 05/10/24 08:36 Temperature Pulse Rate 72 Respiratory Rate Blood Pressure 120/70 Pulse Oximetry Oxygen Delivery Method BMI result Body Mass Index 25.1 Labs 05/09/24 12:59 05/09/24 10:41 Labs: Laboratory Results - last 48 hr 05/09/24 05/09/24 05/09/24 10:24 10:41 12:59 WBC 4.8 RBC 3.69 L Hgb 11.1 L Hct 33.3 L MCV 90.2 MCH 30.1 MCHC 33.3 RDW 17.0 H Plt Count 146 L D MPV 9.5 Immature Gran % (Auto) 0.2 Neut % (Auto) 48.3 Lymph % (Auto) 39.4 Ransom % (Auto) 8.8 Eos % (Auto) 2.9 Baso % (Auto) 0.4 Lymph # (Auto) 1.9 Ransom # (Auto) 0.4 Eos # (Auto) 0.1 Baso # (Auto) 0.0 Abs Immat Gran (auto) 0.01 Absolute Neuts (auto) 2.3 Absolute Nucleated RBC 0.000 Nucleated RBC % (auto) 0.0 Sodium 139 Potassium 5.2 H Chloride 110 H Carbon Dioxide 25 Anion Gap 9 L BUN 23 H Creatinine 1.50 H Estim Creat Clear Calc 48.8 Estimated GFR 46 POC Glucose 124 H Random Glucose 124 H Lactic Acid 1.7 Calcium 9.1 Total Bilirubin 0.2 AST 19 ALT 23 Alkaline Phosphatase 121 H Total Protein 6.5 Albumin 3.5 TSH 3.42 Dorris 0.55 L Imaging Radiology Impressions: ITS Impressions Chest X-Ray 03/20/24 08:33 IMPRESSION: Extremely limited exam. Only lateral views could be obtained. Suspect basilar airspace opacity, possibly pneumonia. Electronically signed by: Fortino Dumont MD 03/20/2024 10:10 AM EST RP Cervical Spine CT 03/21/24 11:18 IMPRESSION: 1. Allowing for suboptimal positioning, there is no CT evidence of acute cervical spine fracture or injury. 2. Degenerative changes with bulky ventral osteophytes spanning C4-C6, appearance in keeping with DISH. Electronically signed by: Fortino Dumont MD 03/21/2024 12:01 PM EST RP Head CT 03/21/24 11:18 IMPRESSION: 1. No acute intracranial abnormality. No acute fractures seen. 2. Stable chronic findings as discussed. Electronically signed by: Fortino Dumont MD 03/21/2024 11:54 AM EST RP Pelvis CT 03/21/24 11:18 IMPRESSION: 1. No acute bony abnormalities. No fractures. 2. Constipation with a large amount of stool in the rectum and sigmoid colon. 3. Mild thickening of the urinary bladder wall despite underdistention, nonspecific. Differential includes the detrusor hypertrophy, neurogenic bladder, or possibly cystitis. Electronically signed by: Fortino Dumont MD 03/21/2024 12:09 PM EST RP Head CT 03/28/24 09:37 IMPRESSION: No acute fracture, bony calvarium. No acute intracranial hemorrhage. Small vessel occlusive disease. Bifrontal bitemporal lobe atrophy. Electronically signed by: Juan Corrigan MD 03/28/2024 10:19 AM EST RP Head CT 04/25/24 12:22 IMPRESSION: No acute intracranial process seen. Electronically signed by: Ritchie Marte MD 04/25/2024 01:01 PM EST RP Medications Medications Current Medications Acetaminophen (Acetaminophen 325 Mg Tablet) 650 mg PO Q6H PRN PRN Reason: Headache/Pain Mild Scale (1-3) Last Admin: 01/17/24 23:53 Dose: 325 mg Al Hydroxide/Mg Hydroxide (Magnesium Hydrox/Alum Hydrox 30 Ml Oral.Susp) 30 ml PO Q6H PRN PRN Reason: Heartburn/Nausea Aripiprazole (Aripiprazole Er 400 Mg Suser.Syr) 400 mg IM Q30D [facility] Aspirin (Aspirin 81 Mg Tab.Chew) 81 mg PO DAILY [facility] Last Admin: 04/23/24 08:34 Dose: 81 mg Benztropine Mesylate (Benztropine Mesylate 0.5 Mg Tablet) 0.5 mg PO BID [facility] Last Admin: 05/10/24 08:38 Dose: 0.5 mg Carbamazepine (Carbamazepine 200 Mg Tablet) 300 mg PO BID [facility] Last Admin: 05/10/24 08:37 Dose: 300 mg Ferrous Sulfate (Ferrous Sulfate 324 Mg Tablet.Dr) 324 mg PO BID [facility] Last Admin: 05/10/24 08:37 Dose: 324 mg Haloperidol Lactate (Haloperidol Lactate Oral Conc 10 Mg/5 Ml Oral.Conc) 5 mg PO Q6H PRN PRN Reason: Psychosis or severe agitation Last Admin: 05/05/24 02:37 Dose: 5 mg Haloperidol Lactate (Haloperidol Lactate 5 Mg/Ml Vial) 5 mg IM TID PRN PRN Reason: Refusal of Court PO Haldol Last Admin: 05/06/24 00:36 Dose: 5 mg Haloperidol Lactate (Haloperidol Lactate Oral Conc 10 Mg/5 Ml Oral.Conc) 5 mg PO TID [facility] Last Admin: 05/10/24 08:38 Dose: 5 mg Dorris Carbonate (Dorris Carbonate 300 Mg Tablet) 150 mg PO BID [facility] Last Admin: 05/10/24 08:35 Dose: 150 mg Lorazepam (Lorazepam 1 Mg Tablet) 1 mg PO Q6H PRN PRN Reason: Anxiety Last Admin: 05/07/24 19:33 Dose: 1 mg Magnesium Hydroxide (Milk Of Magnesia 30 Ml Oral.Susp) 30 ml PO DAILY PRN PRN Reason: Constipation Nicotine Polacrilex (Nicotine Polacrilex 2 Mg Gum) 2 mg BUCCAL Q2H PRN PRN Reason: Nicotine Cravings Propranolol HCl (Propranolol Hcl 10 Mg Tablet) 5 mg PO TID [facility]; Protocol Last Admin: 05/10/24 08:36 Dose: 5 mg Trazodone HCl (Trazodone Hcl 50 Mg Tablet) 50 mg PO BEDTIME PRN PRN Reason: Insomnia Last Admin: 05/09/24 20:57 Dose: 50 mg Vitamin D (Cholecalciferol (Vitamin D3) 25 Mcg Tablet) 50 mcg PO DAILY [facility] Last Admin: 05/10/24 08:38 Dose: 50 mcg Allergies Allergies Allergy/AdvReac Type Severity Reaction Status Date / Time lithium Allergy Unknown Verified 01/13/24 18:08 divalproex sodium AdvReac Severe encephalopa Verified 05/08/24 12:34 [From [facility]] thy Assessment & Plan Assessment & Plan (1) Schizoaffective disorder, bipolar type: Status: Acute Code(s): F25.0 - Schizoaffective disorder, bipolar type (2) Diabetes mellitus: Status: Acute Code(s): E11.9 - Type 2 diabetes mellitus without complications Assessment and Plan: A1c on 04/28 5.9% (3) Hypertension: Status: Acute Code(s): I10 - Essential (primary) hypertension (4) Pancytopenia: Status: Acute Code(s): D61.818 - Other pancytopenia Plan 03/23 keep same treatment 68 yo from a [facility] with chronic psychotic disorder, refusing medication , elevated bp and disorganized and agitated behavior requiring psychiatric hospitalization and treatment not competent to sign cv. 01/14 continue to follow - gave lambs warning today- and he says the automotive sales representative will be a she- still refusing medications and quite psychotic takes alot of redirection to settle him poor adls- 01/15- Refuses meds, refuses hospitalist consult-second day File for Section Seven consideration on 01/17. Provide care as he will allow. 01/16: Depakote 250 mg bid Haldol, Lorazepam, Benadryl prn Section 7 to be filed 01/17 Message left for guardian. 01/17: Section Seven filed. . Court scheduled 01/26/24 Pt continues to refuse medicaitons. He is in need of full assist with ADL's and is incontinent. Pt transferred to [facility] this afternoon. 01/19/2024 Patient pending civil commitment loud agitated would not engage in any conversation with this racebook writer non informational healing agitated verbally aggressive. Every attempt being made to get a copy of the patient's Servin order unclear why this has been so problematic. Encourage food and fluids 01/19 continue same treatment 01/21/24 Patient labile agitated intrusive close labs ordered in order to per to protect the community patient wandering into patient's rooms intrusive impulsive laying on another person's bed. Often hostile agitated posturing at times we are still pending copy of reported Servin order encourage p.o. compliance 01/22/2024 Patient did require physical hold escort him out of a room that he jumped in other patient's room and on their bed while there were in it. There was no physical harm and the patient did leave the room his markedly impulsive with poor judgment remains on close observation has intermittently taken Haldol liquid pending civil commitment treatment plan there is a question of Servin order 01/22 The patient had been more agitated. We review his Servin order and we are increasing the Abilify up to 15 mg p.o. daily and adding Haldol p.r.n. since it is in his role years order. We needed to give him some p.r.n. at 14:00. 01/23 The patient is grossly psychotic disrobing and sexually disinhibited we are starting Haldol 2 mg p.o. t.i.d. to target psychosis as per court order treatment over objection order. 01/24 The patient remains very agitated and angry disruptive so we are increasing the Haldol from 2 mg to 5 mg p.o. t.i.d. with a backup IM if the patient refused as per court order. 01/25 we have increased the Haldol but still he is very psychotic and restless. Today he refused his blood work. He needed to be physically held twice. 01/26 the patient remains agitated at times but his last IM backup was yesterday. We are going to increase Abilify up to 20 mg daily to target mood lability and psychosis. 01/29/2024: Increase frequency of prn doses from tid to prn q 6mrs. Poor insight and unable to care for self 02/08 pt has not take any of mood stabilizer. continues to have poor sleep, intrusive and combative requiring IM medications, increase haldol 10mg po TID, back up IM. Will add ativan 1mg po TID, also back up IM. Labs show elevated CK 2300, BUN 20, Cr 1.80, unclear baseline Cr as he does have CKD. Discussed with hospitalist Dr. Gama, to give IV fluids and monitor labs tomorrow. LFTs also elevated suspect this is secondary to elevation in CK and should trend down as CK goes down. 02/09 still agitated, creatinine and CPK slightly high as yesterday, he removed his IV line there is no big difference with IV hydration. We are changing his community role years to have more options since it is not working Abilify and Haldol 02/10 3 chemical restraints yesterday. appears more combative, and somewhat more confused. Will decrease amount of benzo and antihistamine given to him as it seems to be backfiring. did discuss with ICU attending, Dr. Whiteside possibility of transferring there but they would like us to try IV depakote and exhaust all resources prior to considering transfer. Pt did take depakote springkle 1000mg with apple sauce with much encourage. 02/11 continue tx. 02/12 continue same treatment 01/14 continue with Abilify and other court order medications, we are Namenda and the court order. 02/14 Team report improvement today with pt having greater comfort and less agitation. [id number] the staff reported that the patient had been less violent in the last 24 hours 02/16 continue tx. will check depakote and ammonia on 02/17 in AM. 02/17 continue regime and plan of care 02/26/2024: Continue current regimen as per court order 03/03 continue tx. lactulose for now as we don't have new ammonia level, but will try to chack labs. 03/16- continue medications, held clonidine patch for today due to low BP. repeat labs. 03/17-continue plan of care 03/18- continue tx 03/19 continue same treatment 03/20 waiting for CBC, basic metabolic panel and ammonia level. Today he nearly choked with a grape. We are going to change his diet to chopped 03/21 patient had a fall and he was assessed. No injuries as per CT scan of head and pelvis. Again he refused again his blood work vital signs within normal limits. 03/22 keep same treatment 03/23 keep same treatment 03 24 24 Continue plan of care Depakote Tegretol Haldol carbamazepine 03/25/2024 Repeat swallowing study ordered he is already on ground diet consider lowering Haldol versus Cogentin generally try to avoid older man 03/26 lowered Haldol to 7.5 p.o. b.i.d. 03/27 start Abilify Maintena 400 IM, later on we stopped it since he was over- sedated. 03/28 monitor vital signs and we will order blood work for tomorrow morning. 03/29 keep same treatment. We are deferring Abilify Maintena since the patient is still sedated and looks slightly delirious. He has refused blood work 03/31 continue current tx. less combative but no improvement in mentation. grossly disorganized and non sensical. 04/01: court ordered meds- team reviewing and optimizing same. 04/02 continue tx. 04/03 keep same treatment, so far he had been more compliant with some of the medications in the last 3 days. 04/04 start Abilify Maintena 400 mg IM 04/05 keep Haldol as prescribed 04/06 keep same treatment 04/08/24 continue current plan, regime 04/09/24 continue plan, CAT pending 04/10 continue same treatment 04/11 keep same treatment 04/12 lowering Haldol to 5 mg p.o. b.i.d. since the patient is over-sedated. 04/13 keep same treatment 04/14 agitated today, jumping around, dive off bed, crawling on all 4's, naked; took meds; now sleeping -floridly psychotic and racebook writer thought best to let pt sleep 04/16 keep same treatment 04/17 Abilify Maintena 400 mg today and scheduled next for 30 days. 04/18 change Haldol to 5 mg p.o. t.i.d. with backup IM if he refuses p.o. 04/19 keep same treatment. 04/20 keep same treatment 04/21: verbally aggressive, restless. continue 1:1 and current Tx plan. 04/22: asleep, not easily rousable. restless and irritable last gwen, slept only 4 hours overnight. continue current mgmt. 04/23 add Cogentin 0.5 p.o. b.i.d. small improvement on his psychosis 04/24 continue with same treatment. 04/25 the patient fell again. Blood pressure had been okay even though that he is noncompliant with clonidine patch. We discussed the case with the medical team and they agreed that we can discontinue since he had been noncompliant of clonidine patch since March 09. Starting on propranolol 5 mg p.o. t.i.d. to target akathisia. 04/26 continue tx. 04/27 continue tx. 04/28 reviewing labs- neutropenia and thrombocytopenia worsening Plt 88, ANC 1000, consult to mohamud/onc as plan to continue depakote given that it has been very difficult to stabilize patient. Also, pt with hx of DM, not on any medications. Will obtain A1c. continues to present disorganized, delirium-like presentation. VS are stable, BP on lower side, no need for additional medication for BP. depakote level 100.1. Ammonia level wnl. Will decrease dose of depakote given pancytopenia. 04/29 will stop depakote (one as it may be contributing to pancytopenia, second because it has not shown significant improvement in mentation), continue carbamazepine, pt seen by oncology- appreciate recommendations- 04/30 continue tx. continue to monitor ANC, Plts. oncology/hem following. 05/01 speech and thought process more organized- which is improvement. sexualized remarks, unaware of unsteady gait and weakness. will repeat CBC- continue monitor pancytopenia. 05/02/24 On lithium monitor pancytopenia wbc 3.0 less confused 05/03/24 Increase lithium 300 bid monitor response watch for confusion 05/04 continue current tx, willc heck lithium level, renal function, TSH and repeat CBC on 06/10 at 7am. may need to increase haldol 05/05/24 Continue lithium and Tegretol encourage fluids check lithium TSH electrolytes continue to monitor CBC 05/06/2024 Patient seen chart reviewed case reviewed with nursing staff. Patient was somewhat more dysphoric today tried to engage in conversation had a difficult time. He slept about 4 hours did get Haldol the other day was offered p.o. Ativan p.r.n. encourage fluids with lithium avoid nonsteroidals no gross confusion or tremor 05/07 continue tx. pending labs for lithium level, TSH, cbc on 05/10. 05/08 continue tx. 05/09 pt appeared to have seizure, was given ativan 2mg IM, CMP does show elevation in BUN 23, and elevation on Cr 1.50, mild hyperkalemia 5.2. CBC shows improvement in platelets 88 to 146, ANC also improved from 800 to 2300. normocytic anemia with Hg 11, stable H&H. will decreased lithium 150mg po BID. Increase carbamazepine to 300mg po BID. Awaiting recommendation from neurology. 05/10 continue tx. monitor CMP- renal function. seen by neurology. Reason for continued inpatient stay Substantial Risk for: inability to function Time Spent With Patient Time: Total time managing care of this patient today ____ minutes.
[2024-05-10 14:36] VITALS: BP 102/52; PULSE 51
[2024-05-11 08:13] VITALS: BP 120/58; PULSE 72; RESP 16; TEMP 36.4; O2SAT 100
[2024-05-11] MEDS: Cholecalciferol (Vitamin D3) 25 MCG TABLET 50 MCG PO (08:15)
[2024-05-11] MEDS: carBAMazepine 200 MG TABLET 300 MG PO ×2 (08:16→19:38)
[2024-05-11] MEDS: Haloperidol Lactate Oral Conc 10 MG/5 ML ORAL.CONC 5 MG PO ×3 (08:18→19:38)
[2024-05-11] MEDS: Benztropine Mesylate 0.5 MG TABLET PO ×2 (08:18→19:39)
[2024-05-11] MEDS: Ferrous Sulfate 324 MG TABLET.DR PO ×2 (08:18→19:38)
[2024-05-11] MEDS: Lithium Carbonate 300 MG TABLET 150 MG PO (08:21)
[2024-05-11 09:34] LABS: Alanine Aminotransferase 24 U/L (0-40); Albumin Level 3.3 g/dL (3.5-5.0); Alkaline Phosphatase 105 U/L (39-117); Anion Gap 11 (12-20); Aspartate Amino Transferase 24 U/L (5-37); Bilirubin Total 0.2 mg/dL (0.0-1.0); Blood Urea Nitrogen 23 mg/dL (9-16); Calcium 8.6 mg/dL (8.4-10.2); Carbon Dioxide 23 mmol/L (22-29); Chloride 110 mmol/L (96-108); Creatinine Clr Calc Pharmacy 45.1; Estimated Glomerular Filt Rate 42; Glucose Random 205 mg/dL (60-115); Potassium 4.2 mmol/L (3.3-5.1); Sodium 140 mmol/L (135-145); Total Protein 6.1 g/dL (6.5-8.0)
--- NOTE | 2024-05-11 16:25 | HO.PSYCHPN ---
Subjective Subjective Date of Service: 05/11/24 Reason For Visit: Schizoaffective disorder Subjective Notes: Conditional Voluntary Interim History: Pt slept through the night. Pt reports doing well. He reports feeling a little bit tired but no physical concern. He continued to dress himself. He was visible during the day, kept to himself but interactions were appropriate. No behavioral concerns. He is taking medications as prescribed. pending repeat of CMP- monitor renal function. Review of Systems Review of Systems No overt seizure-like symptoms Yes Unobtainable due to mental status Mental Status Exam Mental Status Exam Narrative: Appearance: no shirt and taking hospital gown off, poor hygiene, in NAD Behavior: cooperative Psychomotor: no agitation or retardation Speech: some problem with enunciation due to edentulous, regular rate/rhythm/volume, spontaneous. TP:linear TC:feeling better Mood: good Affect: congruent SI: denies HI: denies VH/AH: no overt signs Delusions: no overt Insight/judgment: improving x 2. Memory/cog: alert, oriented to place, month, year, somewhat to situation but much improved. Diagnostics Vital Signs (24Hr): Vital Signs - 24 hr 05/11/24 08:13 Temperature 97.5 F Pulse Rate 72 Respiratory Rate 16 Blood Pressure 120/58 L Pulse Oximetry 100 Oxygen Delivery Method Room Air BMI result Body Mass Index 25.1 Labs 05/09/24 12:59 05/12/24 08:12 Labs: Laboratory Results - last 48 hr 05/11/24 09:01 Sodium 140 Potassium 4.2 Chloride 110 H Carbon Dioxide 23 Anion Gap 11 L BUN 23 H Creatinine 1.62 H Estim Creat Clear Calc 45.1 Estimated GFR 42 Random Glucose 205 H Calcium 8.6 Total Bilirubin 0.2 AST 24 ALT 24 Alkaline Phosphatase 105 Total Protein 6.1 L Albumin 3.3 L Imaging Radiology Impressions: ITS Impressions Chest X-Ray 03/20/24 08:33 IMPRESSION: Extremely limited exam. Only lateral views could be obtained. Suspect basilar airspace opacity, possibly pneumonia. Electronically signed by: Fortino Dumont MD 03/20/2024 10:10 AM [facility] Cervical Spine CT 03/21/24 11:18 IMPRESSION: 1. Allowing for suboptimal positioning, there is no CT evidence of acute cervical spine fracture or injury. 2. Degenerative changes with bulky ventral osteophytes spanning C4-C6, appearance in keeping with DISH. Electronically signed by: Fortino Dumont MD 03/21/2024 12:01 PM EST RP Head CT 03/21/24 11:18 IMPRESSION: 1. No acute intracranial abnormality. No acute fractures seen. 2. Stable chronic findings as discussed. Electronically signed by: Fortino Dumont MD 03/21/2024 11:54 AM EST RP Pelvis CT 03/21/24 11:18 IMPRESSION: 1. No acute bony abnormalities. No fractures. 2. Constipation with a large amount of stool in the rectum and sigmoid colon. 3. Mild thickening of the urinary bladder wall despite underdistention, nonspecific. Differential includes the detrusor hypertrophy, neurogenic bladder, or possibly cystitis. Electronically signed by: Fortino Dumont MD 03/21/2024 12:09 PM EST RP Head CT 03/28/24 09:37 IMPRESSION: No acute fracture, bony calvarium. No acute intracranial hemorrhage. Small vessel occlusive disease. Bifrontal bitemporal lobe atrophy. Electronically signed by: Juan Corrigan MD 03/28/2024 10:19 AM EST RP Head CT 04/25/24 12:22 IMPRESSION: No acute intracranial process seen. Electronically signed by: Ritchie Marte MD 04/25/2024 01:01 PM EST RP Medications Medications Current Medications Acetaminophen (Acetaminophen 325 Mg Tablet) 650 mg PO Q6H PRN PRN Reason: Headache/Pain Mild Scale (1-3) Last Admin: 01/17/24 23:53 Dose: 325 mg Al Hydroxide/Mg Hydroxide (Magnesium Hydrox/Alum Hydrox 30 Ml Oral.Susp) 30 ml PO Q6H PRN PRN Reason: Heartburn/Nausea Aripiprazole (Aripiprazole Er 400 Mg Suser.Syr) 400 mg IM Q30D [facility] Aspirin (Aspirin 81 Mg Tab.Chew) 81 mg PO DAILY [facility] Last Admin: 04/23/24 08:34 Dose: 81 mg Benztropine Mesylate (Benztropine Mesylate 0.5 Mg Tablet) 0.5 mg PO BID [facility] Last Admin: 05/11/24 08:18 Dose: 0.5 mg Carbamazepine (Carbamazepine 200 Mg Tablet) 300 mg PO BID [facility] Last Admin: 05/11/24 08:16 Dose: 300 mg Ferrous Sulfate (Ferrous Sulfate 324 Mg Tablet.Dr) 324 mg PO BID [facility] Last Admin: 05/11/24 08:18 Dose: 324 mg Haloperidol Lactate (Haloperidol Lactate Oral Conc 10 Mg/5 Ml Oral.Conc) 5 mg PO Q6H PRN PRN Reason: Psychosis or severe agitation Last Admin: 05/05/24 02:37 Dose: 5 mg Haloperidol Lactate (Haloperidol Lactate 5 Mg/Ml Vial) 5 mg IM TID PRN PRN Reason: Refusal of Court PO Haldol Last Admin: 05/06/24 00:36 Dose: 5 mg Haloperidol Lactate (Haloperidol Lactate Oral Conc 10 Mg/5 Ml Oral.Conc) 5 mg PO TID [facility] Last Admin: 05/11/24 15:37 Dose: 5 mg [place] Carbonate ([place] Carbonate 300 Mg Tablet) 150 mg PO BEDTIME [facility] Magnesium Hydroxide (Milk Of Magnesia 30 Ml Oral.Susp) 30 ml PO DAILY PRN PRN Reason: Constipation Nicotine Polacrilex (Nicotine Polacrilex 2 Mg Gum) 2 mg BUCCAL Q2H PRN PRN Reason: Nicotine Cravings Trazodone HCl (Trazodone Hcl 50 Mg Tablet) 50 mg PO BEDTIME PRN PRN Reason: Insomnia Last Admin: 05/09/24 20:57 Dose: 50 mg Vitamin D (Cholecalciferol (Vitamin D3) 25 Mcg Tablet) 50 mcg PO DAILY [facility] Last Admin: 05/11/24 08:15 Dose: 50 mcg Allergies Allergies Allergy/AdvReac Type Severity Reaction Status Date / Time lithium Allergy Unknown Verified 01/13/24 18:08 divalproex sodium AdvReac Severe encephalopa Verified 05/08/24 12:34 [From Depakote] thy Assessment & Plan Assessment & Plan (1) Schizoaffective disorder, bipolar type: Status: Acute Code(s): F25.0 - Schizoaffective disorder, bipolar type (2) Diabetes mellitus: Status: Acute Code(s): E11.9 - Type 2 diabetes mellitus without complications Assessment and Plan: A1c on 04/28 5.9% Not on current medications (3) Hypertension: Status: Acute Code(s): I10 - Essential (primary) hypertension Assessment and Plan: not on current medications (4) Pancytopenia: Status: Acute Code(s): D61.818 - Other pancytopenia Assessment and Plan: seems to be improving after dc depakote CBC on 05/09/2024--> shows improvement in platelets 88 to 146, ANC also improved from 800 to 2300. normocytic anemia with Hgb 11, stable H&H. Plan 03/23 keep same treatment 68 yo from a [facility] with chronic psychotic disorder, refusing medication , elevated bp and disorganized and agitated behavior requiring psychiatric hospitalization and treatment not competent to sign cv. 01/14 continue to follow - gave lambs warning today- and he says the utility technician will be a she- still refusing medications and quite psychotic takes alot of redirection to settle him poor adls- 01/15- Refuses meds, refuses hospitalist consult-second day File for [place] consideration on 01/17. Provide care as he will allow. 01/16: Depakote 250 mg bid Haldol, Lorazepam, Benadryl prn Section 7 to be filed 01/17 Message left for guardian. 01/17: Section [address] filed. . Court scheduled 01/26/24 Pt continues to refuse medicaitons. He is in need of full assist with ADL's and is incontinent. Pt transferred to [facility] this afternoon. 01/19/2024 Patient pending civil commitment loud agitated would not engage in any conversation with this personal lines underwriter non informational healing agitated verbally aggressive. Every attempt being made to get a copy of the patient's Servin order unclear why this has been so problematic. Encourage food and fluids 01/19 continue same treatment 01/21/24 Patient labile agitated intrusive close labs ordered in order to per to protect the community patient wandering into patient's rooms intrusive impulsive laying on another person's bed. Often hostile agitated posturing at times we are still pending copy of reported Servin order encourage p.o. compliance 01/22/2024 Patient did require physical hold escort him out of a room that he jumped in other patient's room and on their bed while there were in it. There was no physical harm and the patient did leave the room his markedly impulsive with poor judgment remains on close observation has intermittently taken Haldol liquid pending civil commitment treatment plan there is a question of Servin order 01/22 The patient had been more agitated. We review his Servin order and we are increasing the Abilify up to 15 mg p.o. daily and adding Haldol p.r.n. since it is in his role years order. We needed to give him some p.r.n. at 14:00. 01/23 The patient is grossly psychotic disrobing and sexually disinhibited we are starting Haldol 2 mg p.o. t.i.d. to target psychosis as per court order treatment over objection order. 01/24 The patient remains very agitated and angry disruptive so we are increasing the Haldol from 2 mg to 5 mg p.o. t.i.d. with a backup IM if the patient refused as per court order. 01/25 we have increased the Haldol but still he is very psychotic and restless. Today he refused his blood work. He needed to be physically held twice. 01/26 the patient remains agitated at times but his last IM backup was yesterday. We are going to increase Abilify up to 20 mg daily to target mood lability and psychosis. 01/29/2024: Increase frequency of prn doses from tid to prn q 6mrs. Poor insight and unable to care for self 02/08 pt has not take any of mood stabilizer. continues to have poor sleep, intrusive and combative requiring IM medications, increase haldol 10mg po TID, back up IM. Will add ativan 1mg po TID, also back up IM. Labs show elevated CK 2300, BUN 20, Cr 1.80, unclear baseline Cr as he does have CKD. Discussed with hospitalist Dr. Gama, to give IV fluids and monitor labs tomorrow. LFTs also elevated suspect this is secondary to elevation in CK and should trend down as CK goes down. 02/09 still agitated, creatinine and CPK slightly high as yesterday, he removed his IV line there is no big difference with IV hydration. We are changing his community role years to have more options since it is not working Abilify and Haldol 02/10 3 chemical restraints yesterday. appears more combative, and somewhat more confused. Will decrease amount of benzo and antihistamine given to him as it seems to be backfiring. did discuss with ICU attending, Dr. Whiteside possibility of transferring there but they would like us to try IV depakote and exhaust all resources prior to considering transfer. Pt did take depakote springkle 1000mg with apple sauce with much encourage. 02/11 continue tx. 02/12 continue same treatment 01/14 continue with Abilify and other court order medications, we are Nam[place] and the court order. 02/14 Team report improvement today with pt having greater comfort and less agitation. [id number] the staff reported that the patient had been less violent in the last 24 hours 02/16 continue tx. will check depakote and ammonia on 02/17 in AM. 02/17 continue regime and plan of care 02/26/2024: Continue current regimen as per court order 03/03 continue tx. lactulose for now as we don't have new ammonia level, but will try to chack labs. 03/16- continue medications, held clonidine patch for today due to low BP. repeat labs. 03/17-continue plan of care 03/18- continue tx 03/19 continue same treatment 03/20 waiting for CBC, basic metabolic panel and ammonia level. Today he nearly choked with a grape. We are going to change his diet to chopped 03/21 patient had a fall and he was assessed. No injuries as per CT scan of head and pelvis. Again he refused again his blood work vital signs within normal limits. 03/22 keep same treatment 03/23 keep same treatment 03 24 24 Continue plan of care Depakote Tegretol Haldol carbamazepine 03/25/2024 Repeat swallowing study ordered he is already on ground diet consider lowering Haldol versus Cogentin generally try to avoid older man 03/26 lowered Haldol to 7.5 p.o. b.i.d. 03/27 start Abilify Maintena 400 IM, later on we stopped it since he was over-sedated. 03/28 monitor vital signs and we will order blood work for tomorrow morning. 03/29 keep same treatment. We are deferring Abilify Maintena since the patient is still sedated and looks slightly delirious. He has refused blood work 03/31 continue current tx. less combative but no improvement in mentation. grossly disorganized and non sensical. 04/01: court ordered meds- team reviewing and optimizing same. 04/02 continue tx. 04/03 keep same treatment, so far he had been more compliant with some of the medications in the last 3 days. 04/04 start Abilify Maintena 400 mg IM 04/05 keep Haldol as prescribed 04/06 keep same treatment 04/08/24 continue current plan, regime 04/09/24 continue plan, CAT pending 04/10 continue same treatment 04/11 keep same treatment 04/12 lowering Haldol to 5 mg p.o. b.i.d. since the patient is over-sedated. 04/13 keep same treatment 04/14 agitated today, jumping around, dive off bed, crawling on all 4's, naked; took meds; now sleeping -floridly psychotic and personal lines underwriter thought best to let pt sleep 04/16 keep same treatment 04/17 Abilify Maintena 400 mg today and scheduled next for 30 days. 04/18 change Haldol to 5 mg p.o. t.i.d. with backup IM if he refuses p.o. 04/19 keep same treatment. 04/20 keep same treatment 04/21: verbally aggressive, restless. continue 1:1 and current Tx plan. 04/22: asleep, not easily rousable. restless and irritable last gwen, slept only 4 hours overnight. continue current mgmt. 04/23 add Cogentin 0.5 p.o. b.i.d. small improvement on his psychosis 04/24 continue with same treatment. 04/25 the patient fell again. Blood pressure had been okay even though that he is noncompliant with clonidine patch. We discussed the case with the medical team and they agreed that we can discontinue since he had been noncompliant of clonidine patch since March 09. Starting on propranolol 5 mg p.o. t.i.d. to target akathisia. 04/26 continue tx. 04/27 continue tx. 04/28 reviewing labs- neutropenia and thrombocytopenia worsening Plt 88, ANC 1000, consult to mohamud/onc as plan to continue depakote given that it has been very difficult to stabilize patient. Also, pt with hx of DM, not on any medications. Will obtain A1c. continues to present disorganized, delirium-like presentation. VS are stable, BP on lower side, no need for additional medication for BP. depakote level 100.1. Ammonia level wnl. Will decrease dose of depakote given pancytopenia. 04/29 will stop depakote (one as it may be contributing to pancytopenia, second because it has not shown significant improvement in mentation), continue carbamazepine, pt seen by oncology- appreciate recommendations- 04/30 continue tx. continue to monitor ANC, Plts. oncology/hem following. 05/01 speech and thought process more organized- which is improvement. sexualized remarks, unaware of unsteady gait and weakness. will repeat CBC- continue monitor pancytopenia. 05/02/24 On lithium monitor pancytopenia wbc 3.0 less confused 05/03/24 Increase lithium 300 bid monitor response watch for confusion 05/04 continue current tx, willc heck lithium level, renal function, TSH and repeat CBC on 06/10 at 7am. may need to increase haldol 05/05/24 Continue lithium and Tegretol encourage fluids check lithium TSH electrolytes continue to monitor CBC 05/06/2024 Patient seen chart reviewed case reviewed with nursing staff. Patient was somewhat more dysphoric today tried to engage in conversation had a difficult time. He slept about 4 hours did get Haldol the other day was offered p.o. Ativan p.r.n. encourage fluids with lithium avoid nonsteroidals no gross confusion or tremor 05/07 continue tx. pending labs for lithium level, TSH, cbc on 05/10. 05/08 continue tx. 05/09 pt appeared to have seizure, was given ativan 2mg IM, CMP does show elevation in BUN 23, and elevation on Cr 1.50, mild hyperkalemia 5.2. CBC shows improvement in platelets 88 to 146, ANC also improved from 800 to 2300. normocytic anemia with Hg 11, stable H&H. will decreased lithium 150mg po BID. Increase carbamazepine to 300mg po BID. Awaiting recommendation from neurology. 05/10 continue tx. monitor CMP- renal function. seen by neurology. 05/11 repeat cmp tomorrow, lowered lithium to 150mg po qhs. continue monitoring renal function. Reason for continued inpatient stay Substantial Risk for: inability to function Time Spent With Patient Time: Total time managing care of this patient today ____ minutes.
[2024-05-11 21:30] VITALS: BP 153/63; PULSE 90; RESP 16; TEMP 36; O2SAT 98
--- NOTE | 2024-05-12 06:26 | PC.NURSE ---
Patient slept through the night, no distress observed/reported, meds and meals compliant, takes meds whole, pleasant, 5 minutes safety check, no behavior and safety concerns, will continue to monitor
[2024-05-12 08:34] LABS: Alanine Aminotransferase 28 U/L (0-40); Albumin Level 3.9 g/dL (3.5-5.0); Alkaline Phosphatase 118 U/L (39-117); Anion Gap 11 (12-20); Aspartate Amino Transferase 23 U/L (5-37); Bilirubin Total 0.3 mg/dL (0.0-1.0); Blood Urea Nitrogen 20 mg/dL (9-16); Calcium 9.2 mg/dL (8.4-10.2); Carbon Dioxide 24 mmol/L (22-29); Chloride 109 mmol/L (96-108); Creatinine Clr Calc Pharmacy 50.1; Estimated Glomerular Filt Rate 48; Glucose Random 159 mg/dL (60-115); Potassium 4.1 mmol/L (3.3-5.1); Sodium 140 mmol/L (135-145); Total Protein 7.2 g/dL (6.5-8.0)
[2024-05-12 09:10] VITALS: BP 121/58; PULSE 69; RESP 14; TEMP 36.4; O2SAT 99
[2024-05-12] MEDS: Haloperidol Lactate Oral Conc 10 MG/5 ML ORAL.CONC 5 MG PO ×3 (09:12→19:33)
[2024-05-12] MEDS: Ferrous Sulfate 324 MG TABLET.DR PO ×2 (09:13→19:35)
[2024-05-12] MEDS: Benztropine Mesylate 0.5 MG TABLET PO ×2 (09:13→19:34)
[2024-05-12] MEDS: carBAMazepine 200 MG TABLET 300 MG PO ×2 (09:13→19:34)
[2024-05-12] MEDS: Cholecalciferol (Vitamin D3) 25 MCG TABLET 50 MCG PO (09:14)
--- NOTE | 2024-05-12 15:27 | P.PNPSI_ITS ---
Subjective Subjective Date of Service: 05/12/24 Reason For Visit: Schizoaffective disorder Interim History: Met with patient; discussed with team; reviewed chart Patient doing well, polite, organized in speech and behavior. Discussed his lab work and medication regimen which he understood. Cement Despatch Operator inquired about patient's awareness of the past months which he has little memory of but says I was out of my mind... And is happy to be organized. Says he wishes there was a piano on the unit; asks sql report writer about his career inappropriate, organized way. Mental Status Exam Mental Status Exam Narrative: Pt is alert and oriented; behavior is cooperative, friendly and calm; patient is not in distress; dressed in casual attire with unkempt hair but adequate hygiene; mood is described as good and affect congruent; eye contact appropriate; Speech is normal rate, volume and prosody and not pressured; no psychomotor agitation/retardation present; thought process is organized and goal directed; Thought content is on tx; otherwise pertinent to relevant topics and without any delusional content, paranoid ideations or grandiosity; denies any SI/HI. Denies AVH and there is no evidence of perceptual disturbance. Patients insight and judgment appear intact. Diagnostics Vital Signs (24Hr): Vital Signs - 24 hr 05/11/24 21:30 05/12/24 09:10 Temperature 96.8 F 97.5 F Pulse Rate 90 69 Respiratory Rate 16 14 Blood Pressure 153/63 H 121/58 L Pulse Oximetry 98 99 Oxygen Delivery Method Room Air Room Air BMI result Body Mass Index 25.1 Labs 05/09/24 12:59 05/12/24 08:12 Labs: Laboratory Results - last 48 hr 05/11/24 05/12/24 09:01 08:12 Sodium 140 140 Potassium 4.2 4.1 Chloride 110 H 109 H Carbon Dioxide 23 24 Anion Gap 11 L 11 L BUN 23 H 20 H Creatinine 1.62 H 1.46 H Estim Creat Clear Calc 45.1 50.1 Estimated GFR 42 48 Random Glucose 205 H 159 H Calcium 8.6 9.2 D Total Bilirubin 0.2 0.3 AST 24 23 ALT 24 28 Alkaline Phosphatase 105 118 H Total Protein 6.1 L 7.2 Albumin 3.3 L 3.9 Imaging Radiology Impressions: ITS Impressions Chest X-Ray 03/20/24 08:33 IMPRESSION: Extremely limited exam. Only lateral views could be obtained. Suspect basilar airspace opacity, possibly pneumonia. Electronically signed by: Fortino Dumont MD 03/20/2024 10:10 AM EST RP Cervical Spine CT 03/21/24 11:18 IMPRESSION: 1. Allowing for suboptimal positioning, there is no CT evidence of acute cervical spine fracture or injury. 2. Degenerative changes with bulky ventral osteophytes spanning C4-C6, appearance in keeping with DISH. Electronically signed by: Fortino Dumont MD 03/21/2024 12:01 PM EST RP Head CT 03/21/24 11:18 IMPRESSION: 1. No acute intracranial abnormality. No acute fractures seen. 2. Stable chronic findings as discussed. Electronically signed by: Fortino Dumont MD 03/21/2024 11:54 AM EST RP Pelvis CT 03/21/24 11:18 IMPRESSION: 1. No acute bony abnormalities. No fractures. 2. Constipation with a large amount of stool in the rectum and sigmoid colon. 3. Mild thickening of the urinary bladder wall despite underdistention, nonspecific. Differential includes the detrusor hypertrophy, neurogenic bladder, or possibly cystitis. Electronically signed by: Fortino Dumont MD 03/21/2024 12:09 PM EST RP Head CT 03/28/24 09:37 IMPRESSION: No acute fracture, bony calvarium. No acute intracranial hemorrhage. Small vessel occlusive disease. Bifrontal bitemporal lobe atrophy. Electronically signed by: Juan Corrigan MD 03/28/2024 10:19 AM EST RP Head CT 04/25/24 12:22 IMPRESSION: No acute intracranial process seen. Electronically signed by: Ritchie Marte MD 04/25/2024 01:01 PM EST RP Medications Medications Current Medications Acetaminophen (Acetaminophen 325 Mg Tablet) 650 mg PO Q6H PRN PRN Reason: Headache/Pain Mild Scale (1-3) Last Admin: 01/17/24 23:53 Dose: 325 mg Al Hydroxide/Mg Hydroxide (Magnesium Hydrox/Alum Hydrox 30 Ml Oral.Susp) 30 ml PO Q6H PRN PRN Reason: Heartburn/Nausea Aripiprazole (Aripiprazole Er 400 Mg Suser.Syr) 400 mg IM Q30D [facility] Aspirin (Aspirin 81 Mg Tab.Chew) 81 mg PO DAILY [facility] Last Admin: 04/23/24 08:34 Dose: 81 mg Benztropine Mesylate (Benztropine Mesylate 0.5 Mg Tablet) 0.5 mg PO BID [facility] Last Admin: 05/12/24 09:13 Dose: 0.5 mg Carbamazepine (Carbamazepine 200 Mg Tablet) 300 mg PO BID [facility] Last Admin: 05/12/24 09:13 Dose: 300 mg Ferrous Sulfate (Ferrous Sulfate 324 Mg Tablet.Dr) 324 mg PO BID [facility] Last Admin: 05/12/24 09:13 Dose: 324 mg Haloperidol Lactate (Haloperidol Lactate Oral Conc 10 Mg/5 Ml Oral.Conc) 5 mg PO Q6H PRN PRN Reason: Psychosis or severe agitation Last Admin: 05/05/24 02:37 Dose: 5 mg Haloperidol Lactate (Haloperidol Lactate 5 Mg/Ml Vial) 5 mg IM TID PRN PRN Reason: Refusal of Court PO Haldol Last Admin: 05/06/24 00:36 Dose: 5 mg Haloperidol Lactate (Haloperidol Lactate Oral Conc 10 Mg/5 Ml Oral.Conc) 5 mg PO TID [facility] Last Admin: 05/12/24 14:44 Dose: 5 mg [place] Carbonate ([place] Carbonate 300 Mg Tablet) 150 mg PO BEDTIME [facility] Magnesium Hydroxide (Milk Of Magnesia 30 Ml Oral.Susp) 30 ml PO DAILY PRN PRN Reason: Constipation Nicotine Polacrilex (Nicotine Polacrilex 2 Mg Gum) 2 mg BUCCAL Q2H PRN PRN Reason: Nicotine Cravings Trazodone HCl (Trazodone Hcl 50 Mg Tablet) 50 mg PO BEDTIME PRN PRN Reason: Insomnia Last Admin: 05/09/24 20:57 Dose: 50 mg Vitamin D (Cholecalciferol (Vitamin D3) 25 Mcg Tablet) 50 mcg PO DAILY [facility] Last Admin: 05/12/24 09:14 Dose: 50 mcg Allergies Allergies Allergy/AdvReac Type Severity Reaction Status Date / Time lithium Allergy Unknown Verified 01/13/24 18:08 divalproex sodium AdvReac Severe encephalopa Verified 05/08/24 12:34 [From Depakote] thy Assessment & Plan Assessment & Plan (1) Schizoaffective disorder, bipolar type: Status: Acute Code(s): F25.0 - Schizoaffective disorder, bipolar type (2) Diabetes mellitus: Status: Acute Code(s): E11.9 - Type 2 diabetes mellitus without complications Assessment and Plan: A1c on 04/28 5.9% Not on current medications (3) Hypertension: Status: Acute Code(s): I10 - Essential (primary) hypertension Assessment and Plan: not on current medications (4) Pancytopenia: Status: Acute Code(s): D61.818 - Other pancytopenia Assessment and Plan: seems to be improving after dc depakote CBC on 05/09/2024--> shows improvement in platelets 88 to 146, ANC also improved from 800 to 2300. normocytic anemia with Hgb 11, stable H&H. Plan 03/23 keep same treatment 68 yo from a intermediate with chronic psychotic disorder, refusing medication , elevated bp and disorganized and agitated behavior requiring psychiatric hospitalization and treatment not competent to sign cv. 01/14 continue to follow - gave lambs warning today- and he says the top ironer will be a she- still refusing medications and quite psychotic takes alot of redirection to settle him poor adls- 01/15- Refuses meds, refuses hospitalist consult-second day File for Section Seven consideration on 01/17. Provide care as he will allow. 01/16: Depakote 250 mg bid Haldol, Lorazepam, Benadryl prn Section 7 to be filed 01/17 Message left for guardian. 01/17: Section Seven filed. . Court scheduled 01/26/24 Pt continues to refuse medicaitons. He is in need of full assist with ADL's and is incontinent. Pt transferred to [facility] this afternoon. 01/19/2024 Patient pending civil commitment loud agitated would not engage in any conversation with this sql report writer non informational healing agitated verbally aggressive. Every attempt being made to get a copy of the patient's Servin order unclear why this has been so problematic. Encourage food and fluids 01/19 continue same treatment 01/21/24 Patient labile agitated intrusive close labs ordered in order to per to protect the community patient wandering into patient's rooms intrusive impulsive laying on another person's bed. Often hostile agitated posturing at times we are still pending copy of reported Servin order encourage p.o. compliance 01/22/2024 Patient did require physical hold escort him out of a room that he jumped in other patient's room and on their bed while there were in it. There was no physical harm and the patient did leave the room his markedly impulsive with poor judgment remains on close observation has intermittently taken Haldol liquid pending civil commitment treatment plan there is a question of Servin order 01/22 The patient had been more agitated. We review his Servin order and we are increasing the Abilify up to 15 mg p.o. daily and adding Haldol p.r.n. since it is in his role years order. We needed to give him some p.r.n. at 14:00. 01/23 The patient is grossly psychotic disrobing and sexually disinhibited we are starting Haldol 2 mg p.o. t.i.d. to target psychosis as per court order treatment over objection order. 01/24 The patient remains very agitated and angry disruptive so we are increasing the Haldol from 2 mg to 5 mg p.o. t.i.d. with a backup IM if the patient refused as per court order. 01/25 we have increased the Haldol but still he is very psychotic and restless. Today he refused his blood work. He needed to be physically held twice. 01/26 the patient remains agitated at times but his last IM backup was yesterday. We are going to increase Abilify up to 20 mg daily to target mood lability and psychosis. 01/29/2024: Increase frequency of prn doses from tid to prn q 6mrs. Poor insight and unable to care for self 02/08 pt has not take any of mood stabilizer. continues to have poor sleep, intrusive and combative requiring IM medications, increase haldol 10mg po TID, back up IM. Will add ativan 1mg po TID, also back up IM. Labs show elevated CK 2300, BUN 20, Cr 1.80, unclear baseline Cr as he does have CKD. Discussed with hospitalist Dr. Gama, to give IV fluids and monitor labs tomorrow. LFTs also elevated suspect this is secondary to elevation in CK and should trend down as CK goes down. 02/09 still agitated, creatinine and CPK slightly high as yesterday, he removed his IV line there is no big difference with IV hydration. We are changing his community role years to have more options since it is not working Abilify and Haldol 02/10 3 chemical restraints yesterday. appears more combative, and somewhat more confused. Will decrease amount of benzo and antihistamine given to him as it seems to be backfiring. did discuss with ICU attending, Dr. Whiteside possibility of transferring there but they would like us to try IV depakote and exhaust all resources prior to considering transfer. Pt did take depakote springkle 1000mg with apple sauce with much encourage. 02/11 continue tx. 02/12 continue same treatment 01/14 continue with Abilify and other court order medications, we are Nam[place] and the court order. 02/14 Team report improvement today with pt having greater comfort and less agitation. [id number] the staff reported that the patient had been less violent in the last 24 hours 02/16 continue tx. will check depakote and ammonia on 02/17 in AM. 02/17 continue regime and plan of care 02/26/2024: Continue current regimen as per court order 03/03 continue tx. lactulose for now as we don't have new ammonia level, but will try to chack labs. 03/16- continue medications, held clonidine patch for today due to low BP. repeat labs. 03/17-continue plan of care 03/18- continue tx 03/19 continue same treatment 03/20 waiting for CBC, basic metabolic panel and ammonia level. Today he nearly choked with a grape. We are going to change his diet to chopped 03/21 patient had a fall and he was assessed. No injuries as per CT scan of head and pelvis. Again he refused again his blood work vital signs within normal limits. 03/22 keep same treatment 03/23 keep same treatment 03 24 24 Continue plan of care Depakote Tegretol Haldol carbamazepine 03/25/2024 Repeat swallowing study ordered he is already on ground diet consider lowering Haldol versus Cogentin generally try to avoid older man 03/26 lowered Haldol to 7.5 p.o. b.i.d. 03/27 start Abilify Maintena 400 IM, later on we stopped it since he was over- sedated. 03/28 monitor vital signs and we will order blood work for tomorrow morning. 03/29 keep same treatment. We are deferring Abilify Maintena since the patient is still sedated and looks slightly delirious. He has refused blood work 03/31 continue current tx. less combative but no improvement in mentation. grossly disorganized and non sensical. 04/01: court ordered meds- team reviewing and optimizing same. 04/02 continue tx. 04/03 keep same treatment, so far he had been more compliant with some of the medications in the last 3 days. 04/04 start Abilify Maintena 400 mg IM 04/05 keep Haldol as prescribed 04/06 keep same treatment 04/08/24 continue current plan, regime 04/09/24 continue plan, CAT pending 04/10 continue same treatment 04/11 keep same treatment 04/12 lowering Haldol to 5 mg p.o. b.i.d. since the patient is over-sedated. 04/13 keep same treatment 04/14 agitated today, jumping around, dive off bed, crawling on all 4's, naked; took meds; now sleeping -floridly psychotic and sql report writer thought best to let pt sleep 04/16 keep same treatment 04/17 Abilify Maintena 400 mg today and scheduled next for 30 days. 04/18 change Haldol to 5 mg p.o. t.i.d. with backup IM if he refuses p.o. 04/19 keep same treatment. 04/20 keep same treatment 04/21: verbally aggressive, restless. continue 1:1 and current Tx plan. 04/22: asleep, not easily rousable. restless and irritable last gwen, slept only 4 hours overnight. continue current mgmt. 04/23 add Cogentin 0.5 p.o. b.i.d. small improvement on his psychosis 04/24 continue with same treatment. 04/25 the patient fell again. Blood pressure had been okay even though that he is noncompliant with clonidine patch. We discussed the case with the medical team and they agreed that we can discontinue since he had been noncompliant of clonidine patch since March 09. Starting on propranolol 5 mg p.o. t.i.d. to target akathisia. 04/26 continue tx. 04/27 continue tx. 04/28 reviewing labs- neutropenia and thrombocytopenia worsening Plt 88, ANC 1000, consult to mohamud/onc as plan to continue depakote given that it has been very difficult to stabilize patient. Also, pt with hx of DM, not on any medications. Will obtain A1c. continues to present disorganized, delirium-like presentation. VS are stable, BP on lower side, no need for additional medication for BP. depakote level 100.1. Ammonia level wnl. Will decrease dose of depakote given pancytopenia. 04/29 will stop depakote (one as it may be contributing to pancytopenia, second because it has not shown significant improvement in mentation), continue carbamazepine, pt seen by oncology- appreciate recommendations- 04/30 continue tx. continue to monitor ANC, Plts. oncology/hem following. 05/01 speech and thought process more organized- which is improvement. sexualized remarks, unaware of unsteady gait and weakness. will repeat CBC- continue monitor pancytopenia. 05/02/24 On lithium monitor pancytopenia wbc 3.0 less confused 05/03/24 Increase lithium 300 bid monitor response watch for confusion 05/04 continue current tx, willc heck lithium level, renal function, TSH and repeat CBC on 06/10 at 7am. may need to increase haldol 05/05/24 Continue lithium and Tegretol encourage fluids check lithium TSH electrolytes continue to monitor CBC 05/06/2024 Patient seen chart reviewed case reviewed with nursing staff. Patient was somewhat more dysphoric today tried to engage in conversation had a difficult time. He slept about 4 hours did get Haldol the other day was offered p.o. Ativan p.r.n. encourage fluids with lithium avoid nonsteroidals no gross confusion or tremor 05/07 continue tx. pending labs for lithium level, TSH, cbc on 05/10. 05/08 continue tx. 05/09 pt appeared to have seizure, was given ativan 2mg IM, CMP does show elevation in BUN 23, and elevation on Cr 1.50, mild hyperkalemia 5.2. CBC shows improvement in platelets 88 to 146, ANC also improved from 800 to 2300. normocytic anemia with Hg 11, stable H&H. will decreased lithium 150mg po BID. Increase carbamazepine to 300mg po BID. Awaiting recommendation from neurology. 05/10 continue tx. monitor CMP- renal function. seen by neurology. 05/11 repeat cmp tomorrow, lowered lithium to 150mg po qhs. continue monitoring renal function. 05/12 Patient doing well, polite, organized in speech and behavior. Discussed his lab work and medication regimen which he understood. Cement Despatch Operator inquired about patient's awareness of the past months which he has little memory of but says I was out of my mind... And is happy to be organized. Says he wishes there was a piano on the unit; asks sql report writer about his career inappropriate, organized way. -switch to Q 15 minute checks Reviewed labs and BUN/creatinine improved; alk-phos only mildly elevated Continue with current treatment plan Patient educated on: diagnosis, medication risk/benefits and medical condition Informed Consent: understands Reason for continued inpatient stay Substantial Risk for: stable for discharge, rapid decompensation and med/psych decompensation Time Spent With Patient Time: Total time managing care of this patient today ____ minutes.
[2024-05-12] MEDS: Lithium Carbonate 300 MG TABLET 150 MG PO (19:34)
[2024-05-12 19:37] VITALS: BP 154/71; PULSE 55; RESP 16; TEMP 36.1; O2SAT 100
[2024-05-13 09:19] VITALS: BP 124/58; PULSE 57; RESP 18; TEMP 36.8; O2SAT 100
[2024-05-13] MEDS: Haloperidol Lactate Oral Conc 10 MG/5 ML ORAL.CONC 5 MG PO ×2 (09:20→14:44)
[2024-05-13] MEDS: carBAMazepine 200 MG TABLET 300 MG PO ×2 (09:21→21:04)
[2024-05-13] MEDS: Benztropine Mesylate 0.5 MG TABLET PO ×2 (09:22→21:05)
[2024-05-13] MEDS: Ferrous Sulfate 324 MG TABLET.DR PO ×2 (09:22→21:05)
[2024-05-13] MEDS: Cholecalciferol (Vitamin D3) 25 MCG TABLET 50 MCG PO (09:22)
--- NOTE | 2024-05-13 17:13 | HO.PSYCHPN ---
Subjective Subjective Date of Service: 05/13/24 Reason For Visit: Schizoaffective disorder Interim History: Met with patient; discussed with team Remains calm, friendly and in good behavioral and impulse control. Patient asked about medications and mortgage loan underwriter reviewed psychiatric medications and there purpose. Mental Status Exam Mental Status Exam Narrative: Appearance: no shirt and taking hospital gown off, poor hygiene, in NAD Behavior: cooperative Psychomotor: no agitation or retardation Speech: some problem with enunciation due to edentulous, regular rate/rhythm/volume, spontaneous. TP:linear TC: WNL Mood: good Affect: congruent SI: denies HI: denies VH/AH: no overt signs Delusions: no overt Insight/judgment: improving x 2. Memory/cog: alert, oriented to place, month, year, somewhat to situation but much improved. Diagnostics Vital Signs (24Hr): Vital Signs - 24 hr 05/12/24 19:37 05/13/24 09:19 Temperature 96.9 F 98.2 F Pulse Rate 55 57 Respiratory Rate 16 18 Blood Pressure 154/71 H 124/58 L Pulse Oximetry 100 100 Oxygen Delivery Method Room Air Room Air BMI result Body Mass Index 25.1 Labs 05/09/24 12:59 05/12/24 08:12 Labs: Laboratory Results - last 48 hr 05/12/24 08:12 Sodium 140 Potassium 4.1 Chloride 109 H Carbon Dioxide 24 Anion Gap 11 L BUN 20 H Creatinine 1.46 H Estim Creat Clear Calc 50.1 Estimated GFR 48 Random Glucose 159 H Calcium 9.2 D Total Bilirubin 0.3 AST 23 ALT 28 Alkaline Phosphatase 118 H Total Protein 7.2 Albumin 3.9 Imaging Radiology Impressions: ITS Impressions Chest X-Ray 03/20/24 08:33 IMPRESSION: Extremely limited exam. Only lateral views could be obtained. Suspect basilar airspace opacity, possibly pneumonia. Electronically signed by: Fortino Dumont MD 03/20/2024 10:10 AM EST RP Cervical Spine CT 03/21/24 11:18 IMPRESSION: 1. Allowing for suboptimal positioning, there is no CT evidence of acute cervical spine fracture or injury. 2. Degenerative changes with bulky ventral osteophytes spanning C4-C6, appearance in keeping with DISH. Electronically signed by: Fortino Dumont MD 03/21/2024 12:01 PM EST RP Head CT 03/21/24 11:18 IMPRESSION: 1. No acute intracranial abnormality. No acute fractures seen. 2. Stable chronic findings as discussed. Electronically signed by: Fortino Dumont MD 03/21/2024 11:54 AM EST RP Pelvis CT 03/21/24 11:18 IMPRESSION: 1. No acute bony abnormalities. No fractures. 2. Constipation with a large amount of stool in the rectum and sigmoid colon. 3. Mild thickening of the urinary bladder wall despite underdistention, nonspecific. Differential includes the detrusor hypertrophy, neurogenic bladder, or possibly cystitis. Electronically signed by: Fortino Dumont MD 03/21/2024 12:09 PM EST RP Head CT 03/28/24 09:37 IMPRESSION: No acute fracture, bony calvarium. No acute intracranial hemorrhage. Small vessel occlusive disease. Bifrontal bitemporal lobe atrophy. Electronically signed by: Juan Corrigan MD 03/28/2024 10:19 AM EST RP Head CT 04/25/24 12:22 IMPRESSION: No acute intracranial process seen. Electronically signed by: Ritchie Marte MD 04/25/2024 01:01 PM EST RP Medications Medications Current Medications Acetaminophen (Acetaminophen 325 Mg Tablet) 650 mg PO Q6H PRN PRN Reason: Headache/Pain Mild Scale (1-3) Last Admin: 01/17/24 23:53 Dose: 325 mg Al Hydroxide/Mg Hydroxide (Magnesium Hydrox/Alum Hydrox 30 Ml Oral.Susp) 30 ml PO Q6H PRN PRN Reason: Heartburn/Nausea Aripiprazole (Aripiprazole Er 400 Mg Suser.Syr) 400 mg IM Q30D [facility] Aspirin (Aspirin 81 Mg Tab.Chew) 81 mg PO DAILY [facility] Last Admin: 04/23/24 08:34 Dose: 81 mg Benztropine Mesylate (Benztropine Mesylate 0.5 Mg Tablet) 0.5 mg PO BID [facility] Last Admin: 05/13/24 09:22 Dose: 0.5 mg Carbamazepine (Carbamazepine 200 Mg Tablet) 300 mg PO BID [facility] Last Admin: 05/13/24 09:21 Dose: 300 mg Ferrous Sulfate (Ferrous Sulfate 324 Mg Tablet.Dr) 324 mg PO BID [facility] Last Admin: 05/13/24 09:22 Dose: 324 mg Haloperidol Lactate (Haloperidol Lactate Oral Conc 10 Mg/5 Ml Oral.Conc) 5 mg PO Q6H PRN PRN Reason: Psychosis or severe agitation Last Admin: 05/05/24 02:37 Dose: 5 mg Haloperidol Lactate (Haloperidol Lactate 5 Mg/Ml Vial) 5 mg IM TID PRN PRN Reason: Refusal of Court PO Haldol Last Admin: 05/06/24 00:36 Dose: 5 mg Haloperidol Lactate (Haloperidol Lactate Oral Conc 10 Mg/5 Ml Oral.Conc) 5 mg PO TID [facility] Last Admin: 05/13/24 14:44 Dose: 5 mg [place] Carbonate ([place] Carbonate 300 Mg Tablet) 150 mg PO BEDTIME [facility] Last Admin: 05/12/24 19:34 Dose: 150 mg Magnesium Hydroxide (Milk Of Magnesia 30 Ml Oral.Susp) 30 ml PO DAILY PRN PRN Reason: Constipation Nicotine Polacrilex (Nicotine Polacrilex 2 Mg Gum) 2 mg BUCCAL Q2H PRN PRN Reason: Nicotine Cravings Trazodone HCl (Trazodone Hcl 50 Mg Tablet) 50 mg PO BEDTIME PRN PRN Reason: Insomnia Last Admin: 05/09/24 20:57 Dose: 50 mg Vitamin D (Cholecalciferol (Vitamin D3) 25 Mcg Tablet) 50 mcg PO DAILY [facility] Last Admin: 05/13/24 09:22 Dose: 50 mcg Allergies Allergies Allergy/AdvReac Type Severity Reaction Status Date / Time lithium Allergy Unknown Verified 01/13/24 18:08 divalproex sodium AdvReac Severe encephalopa Verified 05/08/24 12:34 [From [facility]] thy Assessment & Plan Assessment & Plan (1) Schizoaffective disorder, bipolar type: Status: Acute Code(s): F25.0 - Schizoaffective disorder, bipolar type (2) Diabetes mellitus: Status: Acute Code(s): E11.9 - Type 2 diabetes mellitus without complications Assessment and Plan: A1c on 04/28 5.9% Not on current medications (3) Hypertension: Status: Acute Code(s): I10 - Essential (primary) hypertension Assessment and Plan: not on current medications (4) Pancytopenia: Status: Acute Code(s): D61.818 - Other pancytopenia Assessment and Plan: seems to be improving after dc depakote CBC on 05/09/2024--> shows improvement in platelets 88 to 146, ANC also improved from 800 to 2300. normocytic anemia with Hgb 11, stable H&H. Plan 03/23 keep same treatment 68 yo from a snf with chronic psychotic disorder, refusing medication , elevated bp and disorganized and agitated behavior requiring psychiatric hospitalization and treatment not competent to sign cv. 01/14 continue to follow - gave lambs warning today- and he says the ware server will be a she- still refusing medications and quite psychotic takes alot of redirection to settle him poor adls- 01/15- Refuses meds, refuses hospitalist consult-second day File for Section Seven consideration on 01/17. Provide care as he will allow. 01/16: Depakote 250 mg bid Haldol, Lorazepam, Benadryl prn Section 7 to be filed 01/17 Message left for guardian. 01/17: Section Seven filed. . Court scheduled 01/26/24 Pt continues to refuse medicaitons. He is in need of full assist with ADL's and is incontinent. Pt transferred to [facility] this afternoon. 01/19/2024 Patient pending civil commitment loud agitated would not engage in any conversation with this mortgage loan underwriter non informational healing agitated verbally aggressive. Every attempt being made to get a copy of the patient's Servin order unclear why this has been so problematic. Encourage food and fluids 01/19 continue same treatment 01/21/24 Patient labile agitated intrusive close labs ordered in order to per to protect the community patient wandering into patient's rooms intrusive impulsive laying on another person's bed. Often hostile agitated posturing at times we are still pending copy of reported Servin order encourage p.o. compliance 01/22/2024 Patient did require physical hold escort him out of a room that he jumped in other patient's room and on their bed while there were in it. There was no physical harm and the patient did leave the room his markedly impulsive with poor judgment remains on close observation has intermittently taken Haldol liquid pending civil commitment treatment plan there is a question of Servin order 01/22 The patient had been more agitated. We review his Servin order and we are increasing the Abilify up to 15 mg p.o. daily and adding Haldol p.r.n. since it is in his role years order. We needed to give him some p.r.n. at 14:00. 01/23 The patient is grossly psychotic disrobing and sexually disinhibited we are starting Haldol 2 mg p.o. t.i.d. to target psychosis as per court order treatment over objection order. 01/24 The patient remains very agitated and angry disruptive so we are increasing the Haldol from 2 mg to 5 mg p.o. t.i.d. with a backup IM if the patient refused as per court order. 01/25 we have increased the Haldol but still he is very psychotic and restless. Today he refused his blood work. He needed to be physically held twice. 01/26 the patient remains agitated at times but his last IM backup was yesterday. We are going to increase Abilify up to 20 mg daily to target mood lability and psychosis. 01/29/2024: Increase frequency of prn doses from tid to prn q 6mrs. Poor insight and unable to care for self 02/08 pt has not take any of mood stabilizer. continues to have poor sleep, intrusive and combative requiring IM medications, increase haldol 10mg po TID, back up IM. Will add ativan 1mg po TID, also back up IM. Labs show elevated CK 2300, BUN 20, Cr 1.80, unclear baseline Cr as he does have CKD. Discussed with hospitalist Dr. Gama, to give IV fluids and monitor labs tomorrow. LFTs also elevated suspect this is secondary to elevation in CK and should trend down as CK goes down. 02/09 still agitated, creatinine and CPK slightly high as yesterday, he removed his IV line there is no big difference with IV hydration. We are changing his community role years to have more options since it is not working Abilify and Haldol 02/10 3 chemical restraints yesterday. appears more combative, and somewhat more confused. Will decrease amount of benzo and antihistamine given to him as it seems to be backfiring. did discuss with ICU attending, Dr. Whiteside possibility of transferring there but they would like us to try IV depakote and exhaust all resources prior to considering transfer. Pt did take depakote springkle 1000mg with apple sauce with much encourage. 02/11 continue tx. 02/12 continue same treatment 01/14 continue with Abilify and other court order medications, we are Nam[place] and the court order. 02/14 Team report improvement today with pt having greater comfort and less agitation. [id number] the staff reported that the patient had been less violent in the last 24 hours 02/16 continue tx. will check depakote and ammonia on 02/17 in AM. 02/17 continue regime and plan of care 02/26/2024: Continue current regimen as per court order 03/03 continue tx. lactulose for now as we don't have new ammonia level, but will try to chack labs. 03/16- continue medications, held clonidine patch for today due to low BP. repeat labs. 03/17-continue plan of care 03/18- continue tx 03/19 continue same treatment 03/20 waiting for CBC, basic metabolic panel and ammonia level. Today he nearly choked with a grape. We are going to change his diet to chopped 03/21 patient had a fall and he was assessed. No injuries as per CT scan of head and pelvis. Again he refused again his blood work vital signs within normal limits. 03/22 keep same treatment 03/23 keep same treatment 03 24 24 Continue plan of care Depakote Tegretol Haldol carbamazepine 03/25/2024 Repeat swallowing study ordered he is already on ground diet consider lowering Haldol versus Cogentin generally try to avoid older man 03/26 lowered Haldol to 7.5 p.o. b.i.d. 03/27 start Abilify Maintena 400 IM, later on we stopped it since he was over-sedated. 03/28 monitor vital signs and we will order blood work for tomorrow morning. 03/29 keep same treatment. We are deferring Abilify Maintena since the patient is still sedated and looks slightly delirious. He has refused blood work 03/31 continue current tx. less combative but no improvement in mentation. grossly disorganized and non sensical. 04/01: court ordered meds- team reviewing and optimizing same. 04/02 continue tx. 04/03 keep same treatment, so far he had been more compliant with some of the medications in the last 3 days. 04/04 start Abilify Maintena 400 mg IM 04/05 keep Haldol as prescribed 04/06 keep same treatment 04/08/24 continue current plan, regime 04/09/24 continue plan, CAT pending 04/10 continue same treatment 04/11 keep same treatment 04/12 lowering Haldol to 5 mg p.o. b.i.d. since the patient is over-sedated. 04/13 keep same treatment 04/14 agitated today, jumping around, dive off bed, crawling on all 4's, naked; took meds; now sleeping -floridly psychotic and mortgage loan underwriter thought best to let pt sleep 04/16 keep same treatment 04/17 Abilify Maintena 400 mg today and scheduled next for 30 days. 04/18 change Haldol to 5 mg p.o. t.i.d. with backup IM if he refuses p.o. 04/19 keep same treatment. 04/20 keep same treatment 04/21: verbally aggressive, restless. continue 1:1 and current Tx plan. 04/22: asleep, not easily rousable. restless and irritable last gwen, slept only 4 hours overnight. continue current mgmt. 04/23 add Cogentin 0.5 p.o. b.i.d. small improvement on his psychosis 04/24 continue with same treatment. 04/25 the patient fell again. Blood pressure had been okay even though that he is noncompliant with clonidine patch. We discussed the case with the medical team and they agreed that we can discontinue since he had been noncompliant of clonidine patch since March 09. Starting on propranolol 5 mg p.o. t.i.d. to target akathisia. 04/26 continue tx. 04/27 continue tx. 04/28 reviewing labs- neutropenia and thrombocytopenia worsening Plt 88, ANC 1000, consult to mohamud/onc as plan to continue depakote given that it has been very difficult to stabilize patient. Also, pt with hx of DM, not on any medications. Will obtain A1c. continues to present disorganized, delirium-like presentation. VS are stable, BP on lower side, no need for additional medication for BP. depakote level 100.1. Ammonia level wnl. Will decrease dose of depakote given pancytopenia. 04/29 will stop depakote (one as it may be contributing to pancytopenia, second because it has not shown significant improvement in mentation), continue carbamazepine, pt seen by oncology- appreciate recommendations- 04/30 continue tx. continue to monitor ANC, Plts. oncology/hem following. 05/01 speech and thought process more organized- which is improvement. sexualized remarks, unaware of unsteady gait and weakness. will repeat CBC- continue monitor pancytopenia. 05/02/24 On lithium monitor pancytopenia wbc 3.0 less confused 05/03/24 Increase lithium 300 bid monitor response watch for confusion 05/04 continue current tx, willc heck lithium level, renal function, TSH and repeat CBC on 06/10 at 7am. may need to increase haldol 05/05/24 Continue lithium and Tegretol encourage fluids check lithium TSH electrolytes continue to monitor CBC 05/06/2024 Patient seen chart reviewed case reviewed with nursing staff. Patient was somewhat more dysphoric today tried to engage in conversation had a difficult time. He slept about 4 hours did get Haldol the other day was offered p.o. Ativan p.r.n. encourage fluids with lithium avoid nonsteroidals no gross confusion or tremor 05/07 continue tx. pending labs for lithium level, TSH, cbc on 05/10. 05/08 continue tx. 05/09 pt appeared to have seizure, was given ativan 2mg IM, CMP does show elevation in BUN 23, and elevation on Cr 1.50, mild hyperkalemia 5.2. CBC shows improvement in platelets 88 to 146, ANC also improved from 800 to 2300. normocytic anemia with Hg 11, stable H&H. will decreased lithium 150mg po BID. Increase carbamazepine to 300mg po BID. Awaiting recommendation from neurology. 05/10 continue tx. monitor CMP- renal function. seen by neurology. 05/11 repeat cmp tomorrow, lowered lithium to 150mg po qhs. continue monitoring renal function. 05/12 Patient doing well, polite, organized in speech and behavior. Discussed his lab work and medication regimen which he understood. Senior Mechanical Project Engineer inquired about patient's awareness of the past months which he has little memory of but says I was out of my mind... And is happy to be organized. Says he wishes there was a piano on the unit; asks mortgage loan underwriter about his career inappropriate, organized way. -switch to Q 15 minute checks Reviewed labs and BUN/creatinine improved; alk-phos only mildly elevated Continue with current treatment plan 05/13 remains stable; discussed med regimen at length; continue tx plan Patient educated on: diagnosis and medication risk/benefits Informed Consent: understands Reason for continued inpatient stay Substantial Risk for: stable for discharge, rapid decompensation and med/psych decompensation Time Spent With Patient Time: Total time managing care of this patient today ____ minutes.
[2024-05-13 20:00] VITALS: BP 142/67; PULSE 55; RESP 18; TEMP 36.3; O2SAT 98
[2024-05-13] MEDS: Lithium Carbonate 300 MG TABLET 150 MG PO (21:04)
[2024-05-13] MEDS: HaloperidoL 5 MG TABLET PO (21:05)
[2024-05-13] MEDS: traZODone HCL 50 MG TABLET PO (21:05)
[2024-05-14 08:28] VITALS: BP 124/62; PULSE 63; RESP 16; TEMP 36.8; O2SAT 100
[2024-05-14] MEDS: Benztropine Mesylate 0.5 MG TABLET PO ×2 (08:29→19:52)
[2024-05-14] MEDS: carBAMazepine 200 MG TABLET 300 MG PO ×2 (08:29→19:51)
[2024-05-14] MEDS: HaloperidoL 5 MG TABLET PO ×3 (08:29→19:51)
[2024-05-14] MEDS: Ferrous Sulfate 324 MG TABLET.DR PO ×2 (08:29→19:52)
[2024-05-14] MEDS: Cholecalciferol (Vitamin D3) 25 MCG TABLET 50 MCG PO (08:29)
--- NOTE | 2024-05-14 09:32 | P.PNPSI_ITS ---
Subjective Subjective Date of Service: 05/14/24 Reason For Visit: Schizoaffective disorder Subjective Notes: Section 7 Interim History: Pt slept through the night. he continues to take medications as prescribed. He reports he is doing well. He asks this typewriter aligner how am I doing. When asked about going to groups, he states not today, maybe another day. He denies SI/HI. He denies any physical concerns. No overt delusional content. No inappropriate sexualized behaviors noted today or over the weekend. Review of Systems Review of Systems No overt seizure-like symptoms Yes Unobtainable due to mental status Mental Status Exam Mental Status Exam Narrative: Appearance: no shirt and taking hospital gown off, poor hygiene, in NAD Behavior: cooperative Psychomotor: no agitation or retardation Speech: some problem with enunciation due to edentulous, regular rate/rhythm/volume, spontaneous. TP:linear TC:feeling better Mood: good Affect: congruent SI: denies HI: denies VH/AH: no overt signs Delusions: no overt Insight/judgment: improving x 2. Memory/cog: alert, oriented to place, month, year, somewhat to situation but much improved. Diagnostics Vital Signs (24Hr): Vital Signs - 24 hr 05/13/24 20:00 05/14/24 08:28 Temperature 97.3 F 98.2 F Pulse Rate 55 63 Respiratory Rate 18 16 Blood Pressure 142/67 H 124/62 Pulse Oximetry 98 100 Oxygen Delivery Method Room Air Room Air BMI result Body Mass Index 25.1 Labs 05/09/24 12:59 05/12/24 08:12 Imaging Radiology Impressions: ITS Impressions Chest X-Ray 03/20/24 08:33 IMPRESSION: Extremely limited exam. Only lateral views could be obtained. Suspect basilar airspace opacity, possibly pneumonia. Electronically signed by: Fortino Dumont MD 03/20/2024 10:10 AM EST RP Cervical Spine CT 03/21/24 11:18 IMPRESSION: 1. Allowing for suboptimal positioning, there is no CT evidence of acute cervical spine fracture or injury. 2. Degenerative changes with bulky ventral osteophytes spanning C4-C6, appearance in keeping with DISH. Electronically signed by: Fortino Dumont MD 03/21/2024 12:01 PM EST RP Head CT 03/21/24 11:18 IMPRESSION: 1. No acute intracranial abnormality. No acute fractures seen. 2. Stable chronic findings as discussed. Electronically signed by: Fortino Dumont MD 03/21/2024 11:54 AM EST RP Pelvis CT 03/21/24 11:18 IMPRESSION: 1. No acute bony abnormalities. No fractures. 2. Constipation with a large amount of stool in the rectum and sigmoid colon. 3. Mild thickening of the urinary bladder wall despite underdistention, nonspecific. Differential includes the detrusor hypertrophy, neurogenic bladder, or possibly cystitis. Electronically signed by: Fortino Dumont MD 03/21/2024 12:09 PM EST RP Head CT 03/28/24 09:37 IMPRESSION: No acute fracture, bony calvarium. No acute intracranial hemorrhage. Small vessel occlusive disease. Bifrontal bitemporal lobe atrophy. Electronically signed by: Juan Corrigan MD 03/28/2024 10:19 AM EST RP Head CT 04/25/24 12:22 IMPRESSION: No acute intracranial process seen. Electronically signed by: Ritchie Marte MD 04/25/2024 01:01 PM EST RP Medications Medications Current Medications Acetaminophen (Acetaminophen 325 Mg Tablet) 650 mg PO Q6H PRN PRN Reason: Headache/Pain Mild Scale (1-3) Last Admin: 01/17/24 23:53 Dose: 325 mg Al Hydroxide/Mg Hydroxide (Magnesium Hydrox/Alum Hydrox 30 Ml Oral.Susp) 30 ml PO Q6H PRN PRN Reason: Heartburn/Nausea Aripiprazole (Aripiprazole Er 400 Mg Suser.Syr) 400 mg IM Q30D [facility] Aspirin (Aspirin 81 Mg Tab.Chew) 81 mg PO DAILY [facility] Last Admin: 04/23/24 08:34 Dose: 81 mg Benztropine Mesylate (Benztropine Mesylate 0.5 Mg Tablet) 0.5 mg PO BID [facility] Last Admin: 05/14/24 08:29 Dose: 0.5 mg Carbamazepine (Carbamazepine 200 Mg Tablet) 300 mg PO BID [facility] Last Admin: 05/14/24 08:29 Dose: 300 mg Ferrous Sulfate (Ferrous Sulfate 324 Mg Tablet.Dr) 324 mg PO BID [facility] Last Admin: 05/14/24 08:29 Dose: 324 mg Haloperidol (Haloperidol 5 Mg Tablet) 5 mg PO TID [facility] Last Admin: 05/14/24 08:29 Dose: 5 mg Haloperidol Lactate (Haloperidol Lactate Oral Conc 10 Mg/5 Ml Oral.Conc) 5 mg PO Q6H PRN PRN Reason: Psychosis or severe agitation Last Admin: 05/05/24 02:37 Dose: 5 mg Haloperidol Lactate (Haloperidol Lactate 5 Mg/Ml Vial) 5 mg IM TID PRN PRN Reason: Refusal of Court PO Haldol Last Admin: 05/06/24 00:36 Dose: 5 mg [place] Carbonate ([place] Carbonate 300 Mg Tablet) 150 mg PO BEDTIME [facility] Last Admin: 05/13/24 21:04 Dose: 150 mg Magnesium Hydroxide (Milk Of Magnesia 30 Ml Oral.Susp) 30 ml PO DAILY PRN PRN Reason: Constipation Nicotine Polacrilex (Nicotine Polacrilex 2 Mg Gum) 2 mg BUCCAL Q2H PRN PRN Reason: Nicotine Cravings Trazodone HCl (Trazodone Hcl 50 Mg Tablet) 50 mg PO BEDTIME PRN PRN Reason: Insomnia Last Admin: 05/13/24 21:05 Dose: 50 mg Vitamin D (Cholecalciferol (Vitamin D3) 25 Mcg Tablet) 50 mcg PO DAILY [facility] Last Admin: 05/14/24 08:29 Dose: 50 mcg Allergies Allergies Allergy/AdvReac Type Severity Reaction Status Date / Time lithium Allergy Unknown Verified 01/13/24 18:08 divalproex sodium AdvReac Severe encephalopa Verified 05/08/24 12:34 [From Depakote] thy Assessment & Plan Assessment & Plan (1) Schizoaffective disorder, bipolar type: Status: Acute Code(s): F25.0 - Schizoaffective disorder, bipolar type (2) Diabetes mellitus: Status: Acute Code(s): E11.9 - Type 2 diabetes mellitus without complications Assessment and Plan: A1c on 04/28 5.9% Not on current medications (3) Hypertension: Status: Acute Code(s): I10 - Essential (primary) hypertension Assessment and Plan: not on current medications (4) Pancytopenia: Status: Acute Code(s): D61.818 - Other pancytopenia Assessment and Plan: seems to be improving after dc depakote CBC on 05/09/2024--> shows improvement in platelets 88 to 146, ANC also improved from 800 to 2300. normocytic anemia with Hgb 11, stable H&H. Plan 03/23 keep same treatment 68 yo from a shelter with chronic psychotic disorder, refusing medication , elevated bp and disorganized and agitated behavior requiring psychiatric hospitalization and treatment not competent to sign cv. 01/14 continue to follow - gave lambs warning today- and he says the pet resort concierge will be a she- still refusing medications and quite psychotic takes alot of redirection to settle him poor adls- 01/15- Refuses meds, refuses hospitalist consult-second day File for Section Seven consideration on 01/17. Provide care as he will allow. 01/16: Depakote 250 mg bid Haldol, Lorazepam, Benadryl prn Section 7 to be filed 01/17 Message left for guardian. 01/17: Section Seven filed. . Court scheduled 01/26/24 Pt continues to refuse medicaitons. He is in need of full assist with ADL's and is incontinent. Pt transferred to [facility] this afternoon. 01/19/2024 Patient pending civil commitment loud agitated would not engage in any conversation with this typewriter aligner non informational healing agitated verbally aggressive. Every attempt being made to get a copy of the patient's Servin order unclear why this has been so problematic. Encourage food and fluids 01/19 continue same treatment 01/21/24 Patient labile agitated intrusive close labs ordered in order to per to protect the community patient wandering into patient's rooms intrusive impulsive laying on another person's bed. Often hostile agitated posturing at times we are still pending copy of reported Servin order encourage p.o. compliance 01/22/2024 Patient did require physical hold escort him out of a room that he jumped in other patient's room and on their bed while there were in it. There was no physical harm and the patient did leave the room his markedly impulsive with poor judgment remains on close observation has intermittently taken Haldol liquid pending civil commitment treatment plan there is a question of Servin order 01/22 The patient had been more agitated. We review his Servin order and we are increasing the Abilify up to 15 mg p.o. daily and adding Haldol p.r.n. since it is in his role years order. We needed to give him some p.r.n. at 14:00. 01/23 The patient is grossly psychotic disrobing and sexually disinhibited we are starting Haldol 2 mg p.o. t.i.d. to target psychosis as per court order treatment over objection order. 01/24 The patient remains very agitated and angry disruptive so we are increasing the Haldol from 2 mg to 5 mg p.o. t.i.d. with a backup IM if the patient refused as per court order. 01/25 we have increased the Haldol but still he is very psychotic and restless. Today he refused his blood work. He needed to be physically held twice. 01/26 the patient remains agitated at times but his last IM backup was yesterday. We are going to increase Abilify up to 20 mg daily to target mood lability and psychosis. 01/29/2024: Increase frequency of prn doses from tid to prn q 6mrs. Poor insight and unable to care for self 02/08 pt has not take any of mood stabilizer. continues to have poor sleep, intrusive and combative requiring IM medications, increase haldol 10mg po TID, back up IM. Will add ativan 1mg po TID, also back up IM. Labs show elevated CK 2300, BUN 20, Cr 1.80, unclear baseline Cr as he does have CKD. Discussed with hospitalist Dr. Gama, to give IV fluids and monitor labs tomorrow. LFTs also elevated suspect this is secondary to elevation in CK and should trend down as CK goes down. 02/09 still agitated, creatinine and CPK slightly high as yesterday, he removed his IV line there is no big difference with IV hydration. We are changing his community role years to have more options since it is not working Abilify and Haldol 02/10 3 chemical restraints yesterday. appears more combative, and somewhat more confused. Will decrease amount of benzo and antihistamine given to him as it seems to be backfiring. did discuss with ICU attending, Dr. Whiteside possibility of transferring there but they would like us to try IV depakote and exhaust all resources prior to considering transfer. Pt did take depakote springkle 1000mg with apple sauce with much encourage. 02/11 continue tx. 02/12 continue same treatment 01/14 continue with Abilify and other court order medications, we are Nam[place] and the court order. 02/14 Team report improvement today with pt having greater comfort and less agitation. [id number] the staff reported that the patient had been less violent in the last 24 hours 02/16 continue tx. will check depakote and ammonia on 02/17 in AM. 02/17 continue regime and plan of care 02/26/2024: Continue current regimen as per court order 03/03 continue tx. lactulose for now as we don't have new ammonia level, but will try to chack labs. 03/16- continue medications, held clonidine patch for today due to low BP. repeat labs. 03/17-continue plan of care 03/18- continue tx 03/19 continue same treatment 03/20 waiting for CBC, basic metabolic panel and ammonia level. Today he nearly choked with a grape. We are going to change his diet to chopped 03/21 patient had a fall and he was assessed. No injuries as per CT scan of head and pelvis. Again he refused again his blood work vital signs within normal limits. 03/22 keep same treatment 03/23 keep same treatment 03 24 24 Continue plan of care Depakote Tegretol Haldol carbamazepine 03/25/2024 Repeat swallowing study ordered he is already on ground diet consider lowering Haldol versus Cogentin generally try to avoid older man 03/26 lowered Haldol to 7.5 p.o. b.i.d. 03/27 start Abilify Maintena 400 IM, later on we stopped it since he was over- sedated. 03/28 monitor vital signs and we will order blood work for tomorrow morning. 03/29 keep same treatment. We are deferring Abilify Maintena since the patient is still sedated and looks slightly delirious. He has refused blood work 03/31 continue current tx. less combative but no improvement in mentation. grossly disorganized and non sensical. 04/01: court ordered meds- team reviewing and optimizing same. 04/02 continue tx. 04/03 keep same treatment, so far he had been more compliant with some of the medications in the last 3 days. 04/04 start Abilify Maintena 400 mg IM 04/05 keep Haldol as prescribed 04/06 keep same treatment 04/08/24 continue current plan, regime 04/09/24 continue plan, CAT pending 04/10 continue same treatment 04/11 keep same treatment 04/12 lowering Haldol to 5 mg p.o. b.i.d. since the patient is over-sedated. 04/13 keep same treatment 04/14 agitated today, jumping around, dive off bed, crawling on all 4's, naked; took meds; now sleeping -floridly psychotic and typewriter aligner thought best to let pt sleep 04/16 keep same treatment 04/17 Abilify Maintena 400 mg today and scheduled next for 30 days. 04/18 change Haldol to 5 mg p.o. t.i.d. with backup IM if he refuses p.o. 04/19 keep same treatment. 04/20 keep same treatment 04/21: verbally aggressive, restless. continue 1:1 and current Tx plan. 04/22: asleep, not easily rousable. restless and irritable last gwen, slept only 4 hours overnight. continue current mgmt. 04/23 add Cogentin 0.5 p.o. b.i.d. small improvement on his psychosis 04/24 continue with same treatment. 04/25 the patient fell again. Blood pressure had been okay even though that he is noncompliant with clonidine patch. We discussed the case with the medical team and they agreed that we can discontinue since he had been noncompliant of clonidine patch since March 09. Starting on propranolol 5 mg p.o. t.i.d. to target akathisia. 04/26 continue tx. 04/27 continue tx. 04/28 reviewing labs- neutropenia and thrombocytopenia worsening Plt 88, ANC 1000, consult to mohamud/onc as plan to continue depakote given that it has been very difficult to stabilize patient. Also, pt with hx of DM, not on any medications. Will obtain A1c. continues to present disorganized, delirium-like presentation. VS are stable, BP on lower side, no need for additional medication for BP. depakote level 100.1. Ammonia level wnl. Will decrease dose of depakote given pancytopenia. 04/29 will stop depakote (one as it may be contributing to pancytopenia, second because it has not shown significant improvement in mentation), continue carbamazepine, pt seen by oncology- appreciate recommendations- 04/30 continue tx. continue to monitor ANC, Plts. oncology/hem following. 05/01 speech and thought process more organized- which is improvement. sexualized remarks, unaware of unsteady gait and weakness. will repeat CBC- continue monitor pancytopenia. 05/02/24 On lithium monitor pancytopenia wbc 3.0 less confused 05/03/24 Increase lithium 300 bid monitor response watch for confusion 05/04 continue current tx, willc heck lithium level, renal function, TSH and repeat CBC on 06/10 at 7am. may need to increase haldol 05/05/24 Continue lithium and Tegretol encourage fluids check lithium TSH electrolytes continue to monitor CBC 05/06/2024 Patient seen chart reviewed case reviewed with nursing staff. Patient was somewhat more dysphoric today tried to engage in conversation had a difficult time. He slept about 4 hours did get Haldol the other day was offered p.o. Ativan p.r.n. encourage fluids with lithium avoid nonsteroidals no gross confusion or tremor 05/07 continue tx. pending labs for lithium level, TSH, cbc on 05/10. 05/08 continue tx. 05/09 pt appeared to have seizure, was given ativan 2mg IM, CMP does show elevation in BUN 23, and elevation on Cr 1.50, mild hyperkalemia 5.2. CBC shows improvement in platelets 88 to 146, ANC also improved from 800 to 2300. normocytic anemia with Hg 11, stable H&H. will decreased lithium 150mg po BID. Increase carbamazepine to 300mg po BID. Awaiting recommendation from neurology. 05/10 continue tx. monitor CMP- renal function. seen by neurology. 05/11 repeat cmp tomorrow, lowered lithium to 150mg po qhs. continue monitoring renal function. 05/12 Patient doing well, polite, organized in speech and behavior. Discussed his lab work and medication regimen which he understood. Block Chopper Hand inquired about patient's awareness of the past months which he has little memory of but says I was out of my mind... And is happy to be organized. Says he wishes there was a piano on the unit; asks typewriter aligner about his career inappropriate, organized way. -switch to Q 15 minute checks Reviewed labs and BUN/creatinine improved; alk-phos only mildly elevated Continue with current treatment plan 05/14/24- continue monitor renal function, will also check carbamazepine level, cbc, and cmp on 05/16/2024. Reason for continued inpatient stay Substantial Risk for: inability to function Time Spent With Patient Time: Total time managing care of this patient today ____ minutes.
[2024-05-14 19:47] VITALS: BP 149/68; PULSE 55; RESP 16; TEMP 36; O2SAT 100
[2024-05-14] MEDS: Lithium Carbonate 300 MG TABLET 150 MG PO (19:51)
[2024-05-15 07:50] VITALS: BP 127/60; PULSE 60; RESP 18; TEMP 36.6; O2SAT 99
[2024-05-15] MEDS: Cholecalciferol (Vitamin D3) 25 MCG TABLET 50 MCG PO (07:57)
[2024-05-15] MEDS: HaloperidoL 5 MG TABLET PO ×3 (07:58→21:04)
[2024-05-15] MEDS: carBAMazepine 200 MG TABLET 300 MG PO ×2 (07:58→21:04)
[2024-05-15] MEDS: Benztropine Mesylate 0.5 MG TABLET PO ×2 (07:58→21:05)
[2024-05-15] MEDS: Ferrous Sulfate 324 MG TABLET.DR PO ×2 (07:58→21:04)
--- NOTE | 2024-05-15 11:22 | HO.PSYCHPN ---
Subjective Subjective Date of Service: 05/15/24 Reason For Visit: Schizoaffective disorder Subjective Notes: Section 7 Interim History: Pt slept through the night. He reports he is doing well. He asks this aligner typewriter how I am doing. When asked about whether he will go to groups, he states it depends if I feel like it. He denies SI/HI. He does dress himself and is visible on the unit. No behavioral concerns. Review of Systems Review of Systems No overt seizure-like symptoms Yes Unobtainable due to mental status Mental Status Exam Mental Status Exam Narrative: Appearance: fair hygiene, casual clothing, dressing self on his own, in NAD Behavior: cooperative Psychomotor: no agitation or retardation Speech: some problem with enunciation due to edentulous, regular rate/rhythm/volume, spontaneous. TP:linear TC: WNL Mood: good Affect: congruent SI: denies HI: denies VH/AH: no overt signs Delusions: no overt Insight/judgment: improving x 2. Memory/cog: alert, oriented to place, month, year, somewhat to situation but much improved. Diagnostics Vital Signs (24Hr): Vital Signs - 24 hr 05/14/24 19:47 05/15/24 07:50 Temperature 96.8 F 97.8 F Pulse Rate 55 60 Respiratory Rate 16 18 Blood Pressure 149/68 H 127/60 Pulse Oximetry 100 99 Oxygen Delivery Method Room Air Room Air BMI result Body Mass Index 25.1 Labs 05/16/24 07:30 05/16/24 07:30 Imaging Radiology Impressions: ITS Impressions Chest X-Ray 03/20/24 08:33 IMPRESSION: Extremely limited exam. Only lateral views could be obtained. Suspect basilar airspace opacity, possibly pneumonia. Electronically signed by: Fortino Dumont MD 03/20/2024 10:10 AM EST RP Cervical Spine CT 03/21/24 11:18 IMPRESSION: 1. Allowing for suboptimal positioning, there is no CT evidence of acute cervical spine fracture or injury. 2. Degenerative changes with bulky ventral osteophytes spanning C4-C6, appearance in keeping with DISH. Electronically signed by: Fortino Dumont MD 03/21/2024 12:01 PM EST RP Head CT 03/21/24 11:18 IMPRESSION: 1. No acute intracranial abnormality. No acute fractures seen. 2. Stable chronic findings as discussed. Electronically signed by: Fortino Dumont MD 03/21/2024 11:54 AM EST RP Pelvis CT 03/21/24 11:18 IMPRESSION: 1. No acute bony abnormalities. No fractures. 2. Constipation with a large amount of stool in the rectum and sigmoid colon. 3. Mild thickening of the urinary bladder wall despite underdistention, nonspecific. Differential includes the detrusor hypertrophy, neurogenic bladder, or possibly cystitis. Electronically signed by: Fortino Dumont MD 03/21/2024 12:09 PM EST RP Head CT 03/28/24 09:37 IMPRESSION: No acute fracture, bony calvarium. No acute intracranial hemorrhage. Small vessel occlusive disease. Bifrontal bitemporal lobe atrophy. Electronically signed by: Juan Corrigan MD 03/28/2024 10:19 AM EST RP Head CT 04/25/24 12:22 IMPRESSION: No acute intracranial process seen. Electronically signed by: Ritchie Marte MD 04/25/2024 01:01 PM EST RP Medications Medications Current Medications Acetaminophen (Acetaminophen 325 Mg Tablet) 650 mg PO Q6H PRN PRN Reason: Headache/Pain Mild Scale (1-3) Last Admin: 01/17/24 23:53 Dose: 325 mg Al Hydroxide/Mg Hydroxide (Magnesium Hydrox/Alum Hydrox 30 Ml Oral.Susp) 30 ml PO Q6H PRN PRN Reason: Heartburn/Nausea Aripiprazole (Aripiprazole Er 400 Mg Suser.Syr) 400 mg IM Q30D [facility] Aspirin (Aspirin 81 Mg Tab.Chew) 81 mg PO DAILY [facility] Last Admin: 04/23/24 08:34 Dose: 81 mg Benztropine Mesylate (Benztropine Mesylate 0.5 Mg Tablet) 0.5 mg PO BID [facility] Last Admin: 05/15/24 07:58 Dose: 0.5 mg Carbamazepine (Carbamazepine 200 Mg Tablet) 300 mg PO BID [facility] Last Admin: 05/15/24 07:58 Dose: 300 mg Ferrous Sulfate (Ferrous Sulfate 324 Mg Tablet.Dr) 324 mg PO BID [facility] Last Admin: 05/15/24 07:58 Dose: 324 mg Haloperidol (Haloperidol 5 Mg Tablet) 5 mg PO TID [facility] Last Admin: 05/15/24 07:58 Dose: 5 mg Haloperidol Lactate (Haloperidol Lactate Oral Conc 10 Mg/5 Ml Oral.Conc) 5 mg PO Q6H PRN PRN Reason: Psychosis or severe agitation Last Admin: 05/05/24 02:37 Dose: 5 mg Haloperidol Lactate (Haloperidol Lactate 5 Mg/Ml Vial) 5 mg IM TID PRN PRN Reason: Refusal of Court PO Haldol Last Admin: 05/06/24 00:36 Dose: 5 mg Slayton Carbonate (Slayton Carbonate 300 Mg Tablet) 150 mg PO BEDTIME KASIA Last Admin: 05/14/24 19:51 Dose: 150 mg Magnesium Hydroxide (Milk Of Magnesia 30 Ml Oral.Susp) 30 ml PO DAILY PRN PRN Reason: Constipation Nicotine Polacrilex (Nicotine Polacrilex 2 Mg Gum) 2 mg BUCCAL Q2H PRN PRN Reason: Nicotine Cravings Trazodone HCl (Trazodone Hcl 50 Mg Tablet) 50 mg PO BEDTIME PRN PRN Reason: Insomnia Last Admin: 05/13/24 21:05 Dose: 50 mg Vitamin D (Cholecalciferol (Vitamin D3) 25 Mcg Tablet) 50 mcg PO DAILY [facility] Last Admin: 05/15/24 07:57 Dose: 50 mcg Allergies Allergies Allergy/AdvReac Type Severity Reaction Status Date / Time lithium Allergy Unknown Verified 01/13/24 18:08 divalproex sodium AdvReac Severe encephalopa Verified 05/08/24 12:34 [From Depakote] thy Assessment & Plan Assessment & Plan (1) Schizoaffective disorder, bipolar type: Status: Acute Code(s): F25.0 - Schizoaffective disorder, bipolar type (2) Diabetes mellitus: Status: Acute Code(s): E11.9 - Type 2 diabetes mellitus without complications Assessment and Plan: A1c on 04/28 5.9% Not on current medications (3) Hypertension: Status: Acute Code(s): I10 - Essential (primary) hypertension Assessment and Plan: not on current medications (4) Pancytopenia: Status: Acute Code(s): D61.818 - Other pancytopenia Assessment and Plan: seems to be improving after dc depakote CBC on 05/09/2024--> shows improvement in platelets 88 to 146, ANC also improved from 800 to 2300. normocytic anemia with Hgb 11, stable H&H. Plan 03/23 keep same treatment 68 yo from a prison with chronic psychotic disorder, refusing medication , elevated bp and disorganized and agitated behavior requiring psychiatric hospitalization and treatment not competent to sign cv. 01/14 continue to follow - gave lambs warning today- and he says the flowers salesperson will be a she- still refusing medications and quite psychotic takes alot of redirection to settle him poor adls- 01/15- Refuses meds, refuses hospitalist consult-second day File for Section Seven consideration on 01/17. Provide care as he will allow. 01/16: Depakote 250 mg bid Haldol, Lorazepam, Benadryl prn Section 7 to be filed 01/17 Message left for guardian. 01/17: Section Seven filed. . Court scheduled 01/26/24 Pt continues to refuse medicaitons. He is in need of full assist with ADL's and is incontinent. Pt transferred to [facility] this afternoon. 01/19/2024 Patient pending civil commitment loud agitated would not engage in any conversation with this aligner typewriter non informational healing agitated verbally aggressive. Every attempt being made to get a copy of the patient's Servin order unclear why this has been so problematic. Encourage food and fluids 01/19 continue same treatment 01/21/24 Patient labile agitated intrusive close labs ordered in order to per to protect the community patient wandering into patient's rooms intrusive impulsive laying on another person's bed. Often hostile agitated posturing at times we are still pending copy of reported Servin order encourage p.o. compliance 01/22/2024 Patient did require physical hold escort him out of a room that he jumped in other patient's room and on their bed while there were in it. There was no physical harm and the patient did leave the room his markedly impulsive with poor judgment remains on close observation has intermittently taken Haldol liquid pending civil commitment treatment plan there is a question of Servin order 01/22 The patient had been more agitated. We review his Servin order and we are increasing the Abilify up to 15 mg p.o. daily and adding Haldol p.r.n. since it is in his role years order. We needed to give him some p.r.n. at 14:00. 01/23 The patient is grossly psychotic disrobing and sexually disinhibited we are starting Haldol 2 mg p.o. t.i.d. to target psychosis as per court order treatment over objection order. 01/24 The patient remains very agitated and angry disruptive so we are increasing the Haldol from 2 mg to 5 mg p.o. t.i.d. with a backup IM if the patient refused as per court order. 01/25 we have increased the Haldol but still he is very psychotic and restless. Today he refused his blood work. He needed to be physically held twice. 01/26 the patient remains agitated at times but his last IM backup was yesterday. We are going to increase Abilify up to 20 mg daily to target mood lability and psychosis. 01/29/2024: Increase frequency of prn doses from tid to prn q 6mrs. Poor insight and unable to care for self 02/08 pt has not take any of mood stabilizer. continues to have poor sleep, intrusive and combative requiring IM medications, increase haldol 10mg po TID, back up IM. Will add ativan 1mg po TID, also back up IM. Labs show elevated CK 2300, BUN 20, Cr 1.80, unclear baseline Cr as he does have CKD. Discussed with hospitalist Dr. Gama, to give IV fluids and monitor labs tomorrow. LFTs also elevated suspect this is secondary to elevation in CK and should trend down as CK goes down. 02/09 still agitated, creatinine and CPK slightly high as yesterday, he removed his IV line there is no big difference with IV hydration. We are changing his community role years to have more options since it is not working Abilify and Haldol 02/10 3 chemical restraints yesterday. appears more combative, and somewhat more confused. Will decrease amount of benzo and antihistamine given to him as it seems to be backfiring. did discuss with ICU attending, Dr. Whiteside possibility of transferring there but they would like us to try IV depakote and exhaust all resources prior to considering transfer. Pt did take depakote springkle 1000mg with apple sauce with much encourage. 02/11 continue tx. 02/12 continue same treatment 01/14 continue with Abilify and other court order medications, we are [place] and the court order. 02/14 Team report improvement today with pt having greater comfort and less agitation. [id number] the staff reported that the patient had been less violent in the last 24 hours 02/16 continue tx. will check depakote and ammonia on 02/17 in AM. 02/17 continue regime and plan of care 02/26/2024: Continue current regimen as per court order 03/03 continue tx. lactulose for now as we don't have new ammonia level, but will try to chack labs. 03/16- continue medications, held clonidine patch for today due to low BP. repeat labs. 03/17-continue plan of care 03/18- continue tx 03/19 continue same treatment 03/20 waiting for CBC, basic metabolic panel and ammonia level. Today he nearly choked with a grape. We are going to change his diet to chopped 03/21 patient had a fall and he was assessed. No injuries as per CT scan of head and pelvis. Again he refused again his blood work vital signs within normal limits. 03/22 keep same treatment 03/23 keep same treatment 03 24 24 Continue plan of care Depakote Tegretol Haldol carbamazepine 03/25/2024 Repeat swallowing study ordered he is already on ground diet consider lowering Haldol versus Cogentin generally try to avoid older man 03/26 lowered Haldol to 7.5 p.o. b.i.d. 03/27 start Abilify Maintena 400 IM, later on we stopped it since he was over-sedated. 03/28 monitor vital signs and we will order blood work for tomorrow morning. 03/29 keep same treatment. We are deferring Abilify Maintena since the patient is still sedated and looks slightly delirious. He has refused blood work 03/31 continue current tx. less combative but no improvement in mentation. grossly disorganized and non sensical. 04/01: court ordered meds- team reviewing and optimizing same. 04/02 continue tx. 04/03 keep same treatment, so far he had been more compliant with some of the medications in the last 3 days. 04/04 start Abilify Maintena 400 mg IM 04/05 keep Haldol as prescribed 04/06 keep same treatment 04/08/24 continue current plan, regime 04/09/24 continue plan, CAT pending 04/10 continue same treatment 04/11 keep same treatment 04/12 lowering Haldol to 5 mg p.o. b.i.d. since the patient is over-sedated. 04/13 keep same treatment 04/14 agitated today, jumping around, dive off bed, crawling on all 4's, naked; took meds; now sleeping -floridly psychotic and aligner typewriter thought best to let pt sleep 04/16 keep same treatment 04/17 Abilify Maintena 400 mg today and scheduled next for 30 days. 04/18 change Haldol to 5 mg p.o. t.i.d. with backup IM if he refuses p.o. 04/19 keep same treatment. 04/20 keep same treatment 04/21: verbally aggressive, restless. continue 1:1 and current Tx plan. 04/22: asleep, not easily rousable. restless and irritable last gwen, slept only 4 hours overnight. continue current mgmt. 04/23 add Cogentin 0.5 p.o. b.i.d. small improvement on his psychosis 04/24 continue with same treatment. 04/25 the patient fell again. Blood pressure had been okay even though that he is noncompliant with clonidine patch. We discussed the case with the medical team and they agreed that we can discontinue since he had been noncompliant of clonidine patch since March 09. Starting on propranolol 5 mg p.o. t.i.d. to target akathisia. 04/26 continue tx. 04/27 continue tx. 04/28 reviewing labs- neutropenia and thrombocytopenia worsening Plt 88, ANC 1000, consult to mohamud/onc as plan to continue depakote given that it has been very difficult to stabilize patient. Also, pt with hx of DM, not on any medications. Will obtain A1c. continues to present disorganized, delirium-like presentation. VS are stable, BP on lower side, no need for additional medication for BP. depakote level 100.1. Ammonia level wnl. Will decrease dose of depakote given pancytopenia. 04/29 will stop depakote (one as it may be contributing to pancytopenia, second because it has not shown significant improvement in mentation), continue carbamazepine, pt seen by oncology- appreciate recommendations- 04/30 continue tx. continue to monitor ANC, Plts. oncology/hem following. 05/01 speech and thought process more organized- which is improvement. sexualized remarks, unaware of unsteady gait and weakness. will repeat CBC- continue monitor pancytopenia. 05/02/24 On lithium monitor pancytopenia wbc 3.0 less confused 05/03/24 Increase lithium 300 bid monitor response watch for confusion 05/04 continue current tx, willc heck lithium level, renal function, TSH and repeat CBC on 06/10 at 7am. may need to increase haldol 05/05/24 Continue lithium and Tegretol encourage fluids check lithium TSH electrolytes continue to monitor CBC 05/06/2024 Patient seen chart reviewed case reviewed with nursing staff. Patient was somewhat more dysphoric today tried to engage in conversation had a difficult time. He slept about 4 hours did get Haldol the other day was offered p.o. Ativan p.r.n. encourage fluids with lithium avoid nonsteroidals no gross confusion or tremor 05/07 continue tx. pending labs for lithium level, TSH, cbc on 05/10. 05/08 continue tx. 05/09 pt appeared to have seizure, was given ativan 2mg IM, CMP does show elevation in BUN 23, and elevation on Cr 1.50, mild hyperkalemia 5.2. CBC shows improvement in platelets 88 to 146, ANC also improved from 800 to 2300. normocytic anemia with Hg 11, stable H&H. will decreased lithium 150mg po BID. Increase carbamazepine to 300mg po BID. Awaiting recommendation from neurology. 05/10 continue tx. monitor CMP- renal function. seen by neurology. 05/11 repeat cmp tomorrow, lowered lithium to 150mg po qhs. continue monitoring renal function. 05/12 Patient doing well, polite, organized in speech and behavior. Discussed his lab work and medication regimen which he understood. Casting Assistant inquired about patient's awareness of the past months which he has little memory of but says I was out of my mind... And is happy to be organized. Says he wishes there was a piano on the unit; asks aligner typewriter about his career inappropriate, organized way. -switch to Q 15 minute checks Reviewed labs and BUN/creatinine improved; alk-phos only mildly elevated Continue with current treatment plan 05/14/24- continue monitor renal function, will also check carbamazepine level, cbc, and cmp on 05/16/2024. 05/15 continue tx. labs scheduled for 05/16 Reason for continued inpatient stay Substantial Risk for: inability to function Time Spent With Patient Time: Total time managing care of this patient today ____ minutes.
[2024-05-15 20:00] VITALS: BP 129/60; PULSE 55; RESP 16; TEMP 36.2; O2SAT 100
[2024-05-15] MEDS: Lithium Carbonate 300 MG TABLET 150 MG PO (21:04)
[2024-05-15] MEDS: traZODone HCL 50 MG TABLET PO (21:04)
[2024-05-16] MEDS: Cholecalciferol (Vitamin D3) 25 MCG TABLET 50 MCG PO (08:01)
[2024-05-16] MEDS: carBAMazepine 200 MG TABLET 300 MG PO ×2 (08:02→20:15)
[2024-05-16] MEDS: Benztropine Mesylate 0.5 MG TABLET PO ×2 (08:02→20:16)
[2024-05-16] MEDS: Ferrous Sulfate 324 MG TABLET.DR PO ×2 (08:02→20:16)
[2024-05-16] MEDS: HaloperidoL 5 MG TABLET PO ×3 (08:03→20:15)
[2024-05-16 08:12] VITALS: BP 125/76; PULSE 84; RESP 18; TEMP 36.3; O2SAT 100
[2024-05-16 08:30] LABS: MANUAL DIFF FLAG NO
[2024-05-16 08:33] LABS: Basophils Percent Auto 0.9 % (0-2); Eosinophils Absolute Auto 0.1 X10*3/uL (0.0-0.4); Eosinophils Percent Auto 3.6 % (0-4); Hematocrit 33.2 % (42.0-52.0); Hemoglobin 11.1 g/dl (14.0-18.0); Imm Gran Abs Auto 0.01 X10*3/uL (0.00-0.03); Imm Gran Pct Auto 0.3 % (0.0-0.4); Lymphocytes Absolute Auto 1.5 X10*3/uL (1.2-4.9); Lymphocytes Percent Auto 45.3 % (20-40); Mean Corpuscular HGB Conc 33.4 g/dl (31.0-36.0); Mean Corpuscular Hemoglobin 29.4 pg (27.0-33.0); Mean Corpuscular Volume 88.1 fL (80.0-98.0); Mean Platelet Volume 9.9 fL (9.4-12.4); Monocytes Absolute Auto 0.2 X10*3/uL (0.1-1.2); Monocytes Percent Auto 5.7 % (2-11); Neutrophils Absolute Auto 1.5 x10*3/uL (2.0-8.3); Neutrophils Percent Auto 44.2 % (45-73); Platelet Count 150 X10*3/uL (160-400); Red Blood Count 3.77 X10*6/uL (4.60-5.80); Red Cell Distribution Width 16.4 % (11.0-16.0); White Blood Count 3.3 X10*3/uL (4.8-10.8)
[2024-05-16 08:47] LABS: Carbamazepine Tegretol 8.1 mcg/mL (5.0-12.0)
[2024-05-16 08:48] LABS: Alanine Aminotransferase 29 U/L (0-40); Albumin Level 3.6 g/dL (3.5-5.0); Alkaline Phosphatase 124 U/L (39-117); Anion Gap 7 (12-20); Aspartate Amino Transferase 20 U/L (5-37); Bilirubin Total 0.2 mg/dL (0.0-1.0); Blood Urea Nitrogen 18 mg/dL (9-16); Calcium 9.1 mg/dL (8.4-10.2); Carbon Dioxide 26 mmol/L (22-29); Chloride 111 mmol/L (96-108); Creatinine Clr Calc Pharmacy 55.8; Estimated Glomerular Filt Rate 54; Glucose Random 108 mg/dL (60-115); Potassium 4.3 mmol/L (3.3-5.1); Sodium 140 mmol/L (135-145); Total Protein 6.3 g/dL (6.5-8.0)
--- NOTE | 2024-05-16 09:22 | HO.PSYCHPN ---
Subjective Subjective Date of Service: 05/16/24 Reason For Visit: Schizoaffective disorder Subjective Notes: Section 7 Interim History: Pt slept through the night. He continues to present with more organized thought process. No overt delusional content noted or reported. Some poverty of thought as well. labs completed on 05/16 cbc with lower ANC 1500 (from 05/12 3200- this probably due to lowering lithium dose due to increase in BUN and Cr), Platelets trending up although slightly low 150, from 88 on 03/30/2023. Carbamazepine level 8.1 BUN 18, Cr 1.31 (improved from 05/12 BUN 20, Cr 1.46). Review of Systems Review of Systems No overt seizure-like symptoms Yes Unobtainable due to mental status Mental Status Exam Mental Status Exam Narrative: Appearance: fair hygiene, casual clothing, dressing self on his own, in NAD Behavior: cooperative Psychomotor: no agitation or retardation Speech: some problem with enunciation due to edentulous, regular rate/rhythm/volume, spontaneous. TP:linear TC: WNL Mood: good Affect: congruent SI: denies HI: denies VH/AH: no overt signs Delusions: no overt Insight/judgment: improving x 2. Memory/cog: alert, oriented to place, month, year, somewhat to situation but much improved. Diagnostics Vital Signs (24Hr): Vital Signs - 24 hr 05/15/24 20:00 05/16/24 08:12 Temperature 97.2 F 97.4 F Pulse Rate 55 84 Respiratory Rate 16 18 Blood Pressure 129/60 125/76 Pulse Oximetry 100 100 Oxygen Delivery Method Room Air Room Air BMI result Body Mass Index 25.1 Labs 05/16/24 07:30 05/16/24 07:30 Labs: Laboratory Results - last 48 hr 05/16/24 07:30 WBC 3.3 L RBC 3.77 L Hgb 11.1 L Hct 33.2 L MCV 88.1 MCH 29.4 MCHC 33.4 RDW 16.4 H Plt Count 150 L MPV 9.9 Immature Gran % (Auto) 0.3 Neut % (Auto) 44.2 L Lymph % (Auto) 45.3 H [place] % (Auto) 5.7 Eos % (Auto) 3.6 Baso % (Auto) 0.9 Lymph # (Auto) 1.5 [place] # (Auto) 0.2 Eos # (Auto) 0.1 Baso # (Auto) 0.0 Abs Immat Gran (auto) 0.01 Absolute Neuts (auto) 1.5 L Absolute Nucleated RBC 0.000 Nucleated RBC % (auto) 0.0 Sodium 140 Potassium 4.3 Chloride 111 H Carbon Dioxide 26 Anion Gap 7 L BUN 18 H Creatinine 1.31 Estim Creat Clear Calc 55.8 Estimated GFR 54 Random Glucose 108 Calcium 9.1 Total Bilirubin 0.2 AST 20 ALT 29 Alkaline Phosphatase 124 H Total Protein 6.3 L Albumin 3.6 Carbamazepine 8.1 Imaging Radiology Impressions: ITS Impressions Chest X-Ray 03/20/24 08:33 IMPRESSION: Extremely limited exam. Only lateral views could be obtained. Suspect basilar airspace opacity, possibly pneumonia. Electronically signed by: Fortino Dumont MD 03/20/2024 10:10 AM EST RP Cervical Spine CT 03/21/24 11:18 IMPRESSION: 1. Allowing for suboptimal positioning, there is no CT evidence of acute cervical spine fracture or injury. 2. Degenerative changes with bulky ventral osteophytes spanning C4-C6, appearance in keeping with DISH. Electronically signed by: Fortino Dumont MD 03/21/2024 12:01 PM EST RP Head CT 03/21/24 11:18 IMPRESSION: 1. No acute intracranial abnormality. No acute fractures seen. 2. Stable chronic findings as discussed. Electronically signed by: Fortino Dumont MD 03/21/2024 11:54 AM EST RP Pelvis CT 03/21/24 11:18 IMPRESSION: 1. No acute bony abnormalities. No fractures. 2. Constipation with a large amount of stool in the rectum and sigmoid colon. 3. Mild thickening of the urinary bladder wall despite underdistention, nonspecific. Differential includes the detrusor hypertrophy, neurogenic bladder, or possibly cystitis. Electronically signed by: Fortino Dumont MD 03/21/2024 12:09 PM EST RP Head CT 03/28/24 09:37 IMPRESSION: No acute fracture, bony calvarium. No acute intracranial hemorrhage. Small vessel occlusive disease. Bifrontal bitemporal lobe atrophy. Electronically signed by: Juan Corrigan MD 03/28/2024 10:19 AM EST RP Head CT 04/25/24 12:22 IMPRESSION: No acute intracranial process seen. Electronically signed by: Ritchie Marte MD 04/25/2024 01:01 PM EST RP Medications Medications Current Medications Acetaminophen (Acetaminophen 325 Mg Tablet) 650 mg PO Q6H PRN PRN Reason: Headache/Pain Mild Scale (1-3) Last Admin: 01/17/24 23:53 Dose: 325 mg Al Hydroxide/Mg Hydroxide (Magnesium Hydrox/Alum Hydrox 30 Ml Oral.Susp) 30 ml PO Q6H PRN PRN Reason: Heartburn/Nausea Aripiprazole (Aripiprazole Er 400 Mg Suser.Syr) 400 mg IM Q30D [facility] Aspirin (Aspirin 81 Mg Tab.Chew) 81 mg PO DAILY [facility] Last Admin: 04/23/24 08:34 Dose: 81 mg Benztropine Mesylate (Benztropine Mesylate 0.5 Mg Tablet) 0.5 mg PO BID [facility] Last Admin: 05/16/24 08:02 Dose: 0.5 mg Carbamazepine (Carbamazepine 200 Mg Tablet) 300 mg PO BID [facility] Last Admin: 05/16/24 08:02 Dose: 300 mg Ferrous Sulfate (Ferrous Sulfate 324 Mg Tablet.Dr) 324 mg PO BID [facility] Last Admin: 05/16/24 08:02 Dose: 324 mg Haloperidol (Haloperidol 5 Mg Tablet) 5 mg PO TID [facility] Last Admin: 05/16/24 08:03 Dose: 5 mg Haloperidol Lactate (Haloperidol Lactate Oral Conc 10 Mg/5 Ml Oral.Conc) 5 mg PO Q6H PRN PRN Reason: Psychosis or severe agitation Last Admin: 05/05/24 02:37 Dose: 5 mg Haloperidol Lactate (Haloperidol Lactate 5 Mg/Ml Vial) 5 mg IM TID PRN PRN Reason: Refusal of Court PO Haldol Last Admin: 05/06/24 00:36 Dose: 5 mg [place] Carbonate ([place] Carbonate 300 Mg Tablet) 150 mg PO BEDTIME [facility] Last Admin: 05/15/24 21:04 Dose: 150 mg Magnesium Hydroxide (Milk Of Magnesia 30 Ml Oral.Susp) 30 ml PO DAILY PRN PRN Reason: Constipation Nicotine Polacrilex (Nicotine Polacrilex 2 Mg Gum) 2 mg BUCCAL Q2H PRN PRN Reason: Nicotine Cravings Trazodone HCl (Trazodone Hcl 50 Mg Tablet) 50 mg PO BEDTIME PRN PRN Reason: Insomnia Last Admin: 05/15/24 21:04 Dose: 50 mg Vitamin D (Cholecalciferol (Vitamin D3) 25 Mcg Tablet) 50 mcg PO DAILY [facility] Last Admin: 05/16/24 08:01 Dose: 50 mcg Allergies Allergies Allergy/AdvReac Type Severity Reaction Status Date / Time lithium Allergy Unknown Verified 01/13/24 18:08 divalproex sodium AdvReac Severe encephalopa Verified 05/08/24 12:34 [From Depakote] thy Assessment & Plan Assessment & Plan (1) Schizoaffective disorder, bipolar type: Status: Acute Code(s): F25.0 - Schizoaffective disorder, bipolar type (2) Diabetes mellitus: Status: Acute Code(s): E11.9 - Type 2 diabetes mellitus without complications Assessment and Plan: A1c on 04/28 5.9% Not on current medications (3) Hypertension: Status: Acute Code(s): I10 - Essential (primary) hypertension Assessment and Plan: not on current medications (4) Pancytopenia: Status: Acute Code(s): D61.818 - Other pancytopenia Assessment and Plan: seems to be improving after dc depakote CBC on 05/09/2024--> shows improvement in platelets 88 to 146, ANC also improved from 800 to 2300. normocytic anemia with Hgb 11, stable H&H. labs completed on 05/16 cbc with lower ANC 1500 (from 05/12 ANC 3200- this probably due to lowering lithium dose due to increase in BUN and Cr), Platelets trending up although slightly low 150, from 88 on 03/30/2023. Plan 03/23 keep same treatment 68 yo from a long term with chronic psychotic disorder, refusing medication , elevated bp and disorganized and agitated behavior requiring psychiatric hospitalization and treatment not competent to sign cv. 01/14 continue to follow - gave lambs warning today- and he says the melter assistant will be a she- still refusing medications and quite psychotic takes alot of redirection to settle him poor adls- 01/15- Refuses meds, refuses hospitalist consult-second day File for Section Seven consideration on 01/17. Provide care as he will allow. 01/16: Depakote 250 mg bid Haldol, Lorazepam, Benadryl prn Section 7 to be filed 01/17 Message left for guardian. 01/17: Section Seven filed. . Court scheduled 01/26/24 Pt continues to refuse medicaitons. He is in need of full assist with ADL's and is incontinent. Pt transferred to [facility] this afternoon. 01/19/2024 Patient pending civil commitment loud agitated would not engage in any conversation with this grant writer non informational healing agitated verbally aggressive. Every attempt being made to get a copy of the patient's Servin order unclear why this has been so problematic. Encourage food and fluids 01/19 continue same treatment 01/21/24 Patient labile agitated intrusive close labs ordered in order to per to protect the community patient wandering into patient's rooms intrusive impulsive laying on another person's bed. Often hostile agitated posturing at times we are still pending copy of reported Servin order encourage p.o. compliance 01/22/2024 Patient did require physical hold escort him out of a room that he jumped in other patient's room and on their bed while there were in it. There was no physical harm and the patient did leave the room his markedly impulsive with poor judgment remains on close observation has intermittently taken Haldol liquid pending civil commitment treatment plan there is a question of Servin order 01/22 The patient had been more agitated. We review his Servin order and we are increasing the Abilify up to 15 mg p.o. daily and adding Haldol p.r.n. since it is in his role years order. We needed to give him some p.r.n. at 14:00. 01/23 The patient is grossly psychotic disrobing and sexually disinhibited we are starting Haldol 2 mg p.o. t.i.d. to target psychosis as per court order treatment over objection order. 01/24 The patient remains very agitated and angry disruptive so we are increasing the Haldol from 2 mg to 5 mg p.o. t.i.d. with a backup IM if the patient refused as per court order. 01/25 we have increased the Haldol but still he is very psychotic and restless. Today he refused his blood work. He needed to be physically held twice. 01/26 the patient remains agitated at times but his last IM backup was yesterday. We are going to increase Abilify up to 20 mg daily to target mood lability and psychosis. 01/29/2024: Increase frequency of prn doses from tid to prn q 6mrs. Poor insight and unable to care for self 02/08 pt has not take any of mood stabilizer. continues to have poor sleep, intrusive and combative requiring IM medications, increase haldol 10mg po TID, back up IM. Will add ativan 1mg po TID, also back up IM. Labs show elevated CK 2300, BUN 20, Cr 1.80, unclear baseline Cr as he does have CKD. Discussed with hospitalist Dr. Gama, to give IV fluids and monitor labs tomorrow. LFTs also elevated suspect this is secondary to elevation in CK and should trend down as CK goes down. 02/09 still agitated, creatinine and CPK slightly high as yesterday, he removed his IV line there is no big difference with IV hydration. We are changing his community role years to have more options since it is not working Abilify and Haldol 02/10 3 chemical restraints yesterday. appears more combative, and somewhat more confused. Will decrease amount of benzo and antihistamine given to him as it seems to be backfiring. did discuss with ICU attending, Dr. Whiteside possibility of transferring there but they would like us to try IV depakote and exhaust all resources prior to considering transfer. Pt did take depakote springkle 1000mg with apple sauce with much encourage. 02/11 continue tx. 02/12 continue same treatment 01/14 continue with Abilify and other court order medications, we are Nam[place] and the court order. 02/14 Team report improvement today with pt having greater comfort and less agitation. [id number] the staff reported that the patient had been less violent in the last 24 hours 02/16 continue tx. will check depakote and ammonia on 02/17 in AM. 02/17 continue regime and plan of care 02/26/2024: Continue current regimen as per court order 03/03 continue tx. lactulose for now as we don't have new ammonia level, but will try to chack labs. 03/16- continue medications, held clonidine patch for today due to low BP. repeat labs. 03/17-continue plan of care 03/18- continue tx 03/19 continue same treatment 03/20 waiting for CBC, basic metabolic panel and ammonia level. Today he nearly choked with a grape. We are going to change his diet to chopped 03/21 patient had a fall and he was assessed. No injuries as per CT scan of head and pelvis. Again he refused again his blood work vital signs within normal limits. 03/22 keep same treatment 03/23 keep same treatment 03 24 24 Continue plan of care Depakote Tegretol Haldol carbamazepine 03/25/2024 Repeat swallowing study ordered he is already on ground diet consider lowering Haldol versus Cogentin generally try to avoid older man 03/26 lowered Haldol to 7.5 p.o. b.i.d. 03/27 start Abilify Maintena 400 IM, later on we stopped it since he was over-sedated. 03/28 monitor vital signs and we will order blood work for tomorrow morning. 03/29 keep same treatment. We are deferring Abilify Maintena since the patient is still sedated and looks slightly delirious. He has refused blood work 03/31 continue current tx. less combative but no improvement in mentation. grossly disorganized and non sensical. 04/01: court ordered meds- team reviewing and optimizing same. 04/02 continue tx. 04/03 keep same treatment, so far he had been more compliant with some of the medications in the last 3 days. 04/04 start Abilify Maintena 400 mg IM 04/05 keep Haldol as prescribed 04/06 keep same treatment 04/08/24 continue current plan, regime 04/09/24 continue plan, CAT pending 04/10 continue same treatment 04/11 keep same treatment 04/12 lowering Haldol to 5 mg p.o. b.i.d. since the patient is over-sedated. 04/13 keep same treatment 04/14 agitated today, jumping around, dive off bed, crawling on all 4's, naked; took meds; now sleeping -floridly psychotic and grant writer thought best to let pt sleep 04/16 keep same treatment 04/17 Abilify Maintena 400 mg today and scheduled next for 30 days. 04/18 change Haldol to 5 mg p.o. t.i.d. with backup IM if he refuses p.o. 04/19 keep same treatment. 04/20 keep same treatment 04/21: verbally aggressive, restless. continue 1:1 and current Tx plan. 04/22: asleep, not easily rousable. restless and irritable last gwen, slept only 4 hours overnight. continue current mgmt. 04/23 add Cogentin 0.5 p.o. b.i.d. small improvement on his psychosis 04/24 continue with same treatment. 04/25 the patient fell again. Blood pressure had been okay even though that he is noncompliant with clonidine patch. We discussed the case with the medical team and they agreed that we can discontinue since he had been noncompliant of clonidine patch since March 09. Starting on propranolol 5 mg p.o. t.i.d. to target akathisia. 04/26 continue tx. 04/27 continue tx. 04/28 reviewing labs- neutropenia and thrombocytopenia worsening Plt 88, ANC 1000, consult to mohamud/onc as plan to continue depakote given that it has been very difficult to stabilize patient. Also, pt with hx of DM, not on any medications. Will obtain A1c. continues to present disorganized, delirium-like presentation. VS are stable, BP on lower side, no need for additional medication for BP. depakote level 100.1. Ammonia level wnl. Will decrease dose of depakote given pancytopenia. 04/29 will stop depakote (one as it may be contributing to pancytopenia, second because it has not shown significant improvement in mentation), continue carbamazepine, pt seen by oncology- appreciate recommendations- 04/30 continue tx. continue to monitor ANC, Plts. oncology/hem following. 05/01 speech and thought process more organized- which is improvement. sexualized remarks, unaware of unsteady gait and weakness. will repeat CBC- continue monitor pancytopenia. 05/02/24 On lithium monitor pancytopenia wbc 3.0 less confused 05/03/24 Increase lithium 300 bid monitor response watch for confusion 05/04 continue current tx, willc heck lithium level, renal function, TSH and repeat CBC on 06/10 at 7am. may need to increase haldol 05/05/24 Continue lithium and Tegretol encourage fluids check lithium TSH electrolytes continue to monitor CBC 05/06/2024 Patient seen chart reviewed case reviewed with nursing staff. Patient was somewhat more dysphoric today tried to engage in conversation had a difficult time. He slept about 4 hours did get Haldol the other day was offered p.o. Ativan p.r.n. encourage fluids with lithium avoid nonsteroidals no gross confusion or tremor 05/07 continue tx. pending labs for lithium level, TSH, cbc on 05/10. 05/08 continue tx. 05/09 pt appeared to have seizure, was given ativan 2mg IM, CMP does show elevation in BUN 23, and elevation on Cr 1.50, mild hyperkalemia 5.2. CBC shows improvement in platelets 88 to 146, ANC also improved from 800 to 2300. normocytic anemia with Hg 11, stable H&H. will decreased lithium 150mg po BID. Increase carbamazepine to 300mg po BID. Awaiting recommendation from neurology. 05/10 continue tx. monitor CMP- renal function. seen by neurology. 05/11 repeat cmp tomorrow, lowered lithium to 150mg po qhs. continue monitoring renal function. 05/12 Patient doing well, polite, organized in speech and behavior. Discussed his lab work and medication regimen which he understood. Lead Programmer Analyst inquired about patient's awareness of the past months which he has little memory of but says I was out of my mind... And is happy to be organized. Says he wishes there was a piano on the unit; asks grant writer about his career inappropriate, organized way. -switch to Q 15 minute checks Reviewed labs and BUN/creatinine improved; alk-phos only mildly elevated Continue with current treatment plan 05/14/24- continue monitor renal function, will also check carbamazepine level, cbc, and cmp on 05/16/2024. 05/15 continue tx. labs scheduled for 05/16 05/16 labs completed on 05/16 cbc with lower ANC 1500 (from 05/12 3200- this probably due to lowering lithium dose due to increase in BUN and Cr), Platelets trending up although slightly low 150, from 88 on 03/30/2023. Carbamazepine level 8.1 BUN 18, Cr 1.31 (improved from 05/12 BUN 20, Cr 1.46). Reason for continued inpatient stay Substantial Risk for: inability to function Time Spent With Patient Time: Total time managing care of this patient today ____ minutes.
[2024-05-16 20:00] VITALS: BP 110/57; PULSE 55; RESP 16; TEMP 36.2; O2SAT 100
[2024-05-16] MEDS: Lithium Carbonate 300 MG TABLET 150 MG PO (20:16)
[2024-05-16] MEDS: traZODone HCL 50 MG TABLET PO (20:16)
[2024-05-17 07:55] VITALS: BP 130/68; PULSE 76; RESP 18; TEMP 36.6; O2SAT 98
[2024-05-17] MEDS: HaloperidoL 5 MG TABLET PO ×3 (08:21→20:26)
[2024-05-17] MEDS: Ferrous Sulfate 324 MG TABLET.DR PO ×2 (08:21→20:26)
[2024-05-17] MEDS: carBAMazepine 200 MG TABLET 300 MG PO ×2 (08:21→20:27)
[2024-05-17] MEDS: Cholecalciferol (Vitamin D3) 25 MCG TABLET 50 MCG PO (08:21)
[2024-05-17] MEDS: Benztropine Mesylate 0.5 MG TABLET PO ×2 (08:21→20:27)
[2024-05-17 09:41] VITALS: BMI 22.0
[2024-05-17] MEDS: ARIPiprazole ER 400 MG SUSER.SYR IM (10:49)
--- NOTE | 2024-05-17 16:56 | HO.PSYCHPN ---
Subjective Subjective Date of Service: 05/17/24 Reason For Visit: Schizoaffective disorder Subjective Notes: Conditional Voluntary Interim History: Pt slept through the night. He continues to present with more organized thought process. No overt delusional content noted or reported. Some poverty of thought as well. His hygiene has improved. No behavioral concerns. labs completed on 05/16 cbc with lower ANC 1500 (from 05/12 3200- this probably due to lowering lithium dose due to increase in BUN and Cr), Platelets trending up although slightly low 150, from 88 on 03/30/2023. Carbamazepine level 8.1 BUN 18, Cr 1.31 (improved from 05/12 BUN 20, Cr 1.46). Review of Systems Review of Systems No overt seizure-like symptoms Yes Unobtainable due to mental status Mental Status Exam Mental Status Exam Narrative: Appearance: fair hygiene, casual clothing, dressing self on his own, in NAD Behavior: cooperative Psychomotor: no agitation or retardation Speech: some problem with enunciation due to edentulous, regular rate/rhythm/volume, spontaneous. TP:linear TC: WNL Mood: good Affect: congruent SI: denies HI: denies VH/AH: no overt signs Delusions: no overt Insight/judgment: improving x 2. Memory/cog: alert, oriented to place, month, year, somewhat to situation but much improved. Diagnostics Vital Signs (24Hr): Vital Signs - 24 hr 05/16/24 20:00 05/17/24 07:55 Temperature 97.2 F 97.8 F Pulse Rate 55 76 Respiratory Rate 16 18 Blood Pressure 110/57 L 130/68 Pulse Oximetry 100 98 Oxygen Delivery Method Room Air Room Air BMI result Body Mass Index 22.0 Labs 05/16/24 07:30 05/16/24 07:30 Labs: Laboratory Results - last 48 hr 05/16/24 07:30 WBC 3.3 L RBC 3.77 L Hgb 11.1 L Hct 33.2 L MCV 88.1 MCH 29.4 MCHC 33.4 RDW 16.4 H Plt Count 150 L MPV 9.9 Immature Gran % (Auto) 0.3 Neut % (Auto) 44.2 L Lymph % (Auto) 45.3 H Bates % (Auto) 5.7 Eos % (Auto) 3.6 Baso % (Auto) 0.9 Lymph # (Auto) 1.5 Bates # (Auto) 0.2 Eos # (Auto) 0.1 Baso # (Auto) 0.0 Abs Immat Gran (auto) 0.01 Absolute Neuts (auto) 1.5 L Absolute Nucleated RBC 0.000 Nucleated RBC % (auto) 0.0 Sodium 140 Potassium 4.3 Chloride 111 H Carbon Dioxide 26 Anion Gap 7 L BUN 18 H Creatinine 1.31 Estim Creat Clear Calc 55.8 Estimated GFR 54 Random Glucose 108 Calcium 9.1 Total Bilirubin 0.2 AST 20 ALT 29 Alkaline Phosphatase 124 H Total Protein 6.3 L Albumin 3.6 Carbamazepine 8.1 Imaging Radiology Impressions: ITS Impressions Chest X-Ray 03/20/24 08:33 IMPRESSION: Extremely limited exam. Only lateral views could be obtained. Suspect basilar airspace opacity, possibly pneumonia. Electronically signed by: Fortino Dumont MD 03/20/2024 10:10 AM EST RP Cervical Spine CT 03/21/24 11:18 IMPRESSION: 1. Allowing for suboptimal positioning, there is no CT evidence of acute cervical spine fracture or injury. 2. Degenerative changes with bulky ventral osteophytes spanning C4-C6, appearance in keeping with DISH. Electronically signed by: Fortino Dumont MD 03/21/2024 12:01 PM EST RP Head CT 03/21/24 11:18 IMPRESSION: 1. No acute intracranial abnormality. No acute fractures seen. 2. Stable chronic findings as discussed. Electronically signed by: Fortino Dumont MD 03/21/2024 11:54 AM EST RP Pelvis CT 03/21/24 11:18 IMPRESSION: 1. No acute bony abnormalities. No fractures. 2. Constipation with a large amount of stool in the rectum and sigmoid colon. 3. Mild thickening of the urinary bladder wall despite underdistention, nonspecific. Differential includes the detrusor hypertrophy, neurogenic bladder, or possibly cystitis. Electronically signed by: Fortino Dumont MD 03/21/2024 12:09 PM EST RP Head CT 03/28/24 09:37 IMPRESSION: No acute fracture, bony calvarium. No acute intracranial hemorrhage. Small vessel occlusive disease. Bifrontal bitemporal lobe atrophy. Electronically signed by: Juan Corrigan MD 03/28/2024 10:19 AM EST RP Head CT 04/25/24 12:22 IMPRESSION: No acute intracranial process seen. Electronically signed by: Ritchie Marte MD 04/25/2024 01:01 PM EST RP Medications Medications Current Medications Acetaminophen (Acetaminophen 325 Mg Tablet) 650 mg PO Q6H PRN PRN Reason: Headache/Pain Mild Scale (1-3) Last Admin: 01/17/24 23:53 Dose: 325 mg Al Hydroxide/Mg Hydroxide (Magnesium Hydrox/Alum Hydrox 30 Ml Oral.Susp) 30 ml PO Q6H PRN PRN Reason: Heartburn/Nausea Aripiprazole (Aripiprazole Er 400 Mg Suser.Syr) 400 mg IM Q30D [facility] Last Admin: 05/17/24 10:49 Dose: 400 mg Aspirin (Aspirin 81 Mg Tab.Chew) 81 mg PO DAILY [facility] Last Admin: 04/23/24 08:34 Dose: 81 mg Benztropine Mesylate (Benztropine Mesylate 0.5 Mg Tablet) 0.5 mg PO BID [facility] Last Admin: 05/17/24 08:21 Dose: 0.5 mg Carbamazepine (Carbamazepine 200 Mg Tablet) 300 mg PO BID [facility] Last Admin: 05/17/24 08:21 Dose: 300 mg Ferrous Sulfate (Ferrous Sulfate 324 Mg Tablet.Dr) 324 mg PO BID [facility] Last Admin: 05/17/24 08:21 Dose: 324 mg Haloperidol (Haloperidol 5 Mg Tablet) 5 mg PO TID [facility] Last Admin: 05/17/24 15:18 Dose: 5 mg Haloperidol Lactate (Haloperidol Lactate Oral Conc 10 Mg/5 Ml Oral.Conc) 5 mg PO Q6H PRN PRN Reason: Psychosis or severe agitation Last Admin: 05/05/24 02:37 Dose: 5 mg Haloperidol Lactate (Haloperidol Lactate 5 Mg/Ml Vial) 5 mg IM TID PRN PRN Reason: Refusal of Court PO Haldol Last Admin: 05/06/24 00:36 Dose: 5 mg [place]anca Carbonate (Salamanca Carbonate 300 Mg Tablet) 150 mg PO BEDTIME [facility] Last Admin: 05/16/24 20:16 Dose: 150 mg Magnesium Hydroxide (Milk Of Magnesia 30 Ml Oral.Susp) 30 ml PO DAILY PRN PRN Reason: Constipation Nicotine Polacrilex (Nicotine Polacrilex 2 Mg Gum) 2 mg BUCCAL Q2H PRN PRN Reason: Nicotine Cravings Trazodone HCl (Trazodone Hcl 50 Mg Tablet) 50 mg PO BEDTIME PRN PRN Reason: Insomnia Last Admin: 05/16/24 20:16 Dose: 50 mg Vitamin D (Cholecalciferol (Vitamin D3) 25 Mcg Tablet) 50 mcg PO DAILY [facility] Last Admin: 05/17/24 08:21 Dose: 50 mcg Allergies Allergies Allergy/AdvReac Type Severity Reaction Status Date / Time lithium Allergy Unknown Verified 01/13/24 18:08 divalproex sodium AdvReac Severe encephalopa Verified 05/08/24 12:34 [From Depakote] thy Assessment & Plan Assessment & Plan (1) Schizoaffective disorder, bipolar type: Status: Acute Code(s): F25.0 - Schizoaffective disorder, bipolar type (2) Diabetes mellitus: Status: Acute Code(s): E11.9 - Type 2 diabetes mellitus without complications Assessment and Plan: A1c on 04/28 5.9% Not on current medications (3) Hypertension: Status: Acute Code(s): I10 - Essential (primary) hypertension Assessment and Plan: not on current medications (4) Pancytopenia: Status: Acute Code(s): D61.818 - Other pancytopenia Assessment and Plan: seems to be improving after dc depakote CBC on 05/09/2024--> shows improvement in platelets 88 to 146, ANC also improved from 800 to 2300. normocytic anemia with Hgb 11, stable H&H. labs completed on 05/16 cbc with lower ANC 1500 (from 05/12 3200- this probably due to lowering lithium dose due to increase in BUN and Cr), Platelets trending up although slightly low 150, from 88 on 03/30/2023. Carbamazepine level 8.1 BUN 18, Cr 1.31 (improved from 05/12 BUN 20, Cr 1.46). Plan 03/23 keep same treatment 68 [facility] with chronic psychotic disorder, refusing medication , elevated bp and disorganized and agitated behavior requiring psychiatric hospitalization and treatment not competent to sign cv. 01/14 continue to follow - gave lambs warning today- and he says the youth court judge will be a she- still refusing medications and quite psychotic takes alot of redirection to settle him poor adls- 01/15- Refuses meds, refuses hospitalist consult-second day File for Section Seven consideration on 01/17. Provide care as he will allow. 01/16: Depakote 250 mg bid Haldol, Lorazepam, Benadryl prn Section 7 to be filed 01/17 Message left for guardian. 01/17: Section Seven filed. . Court scheduled 01/26/24 Pt continues to refuse medicaitons. He is in need of full assist with ADL's and is incontinent. Pt transferred to [facility] this afternoon. 01/19/2024 Patient pending civil commitment loud agitated would not engage in any conversation with this fiction and nonfiction prose writer non informational healing agitated verbally aggressive. Every attempt being made to get a copy of the patient's Servin order unclear why this has been so problematic. Encourage food and fluids 01/19 continue same treatment 01/21/24 Patient labile agitated intrusive close labs ordered in order to per to protect the community patient wandering into patient's rooms intrusive impulsive laying on another person's bed. Often hostile agitated posturing at times we are still pending copy of reported Servin order encourage p.o. compliance 01/22/2024 Patient did require physical hold escort him out of a room that he jumped in other patient's room and on their bed while there were in it. There was no physical harm and the patient did leave the room his markedly impulsive with poor judgment remains on close observation has intermittently taken Haldol liquid pending civil commitment treatment plan there is a question of Servin order 01/22 The patient had been more agitated. We review his Servin order and we are increasing the Abilify up to 15 mg p.o. daily and adding Haldol p.r.n. since it is in his role years order. We needed to give him some p.r.n. at 14:00. 01/23 The patient is grossly psychotic disrobing and sexually disinhibited we are starting Haldol 2 mg p.o. t.i.d. to target psychosis as per court order treatment over objection order. 01/24 The patient remains very agitated and angry disruptive so we are increasing the Haldol from 2 mg to 5 mg p.o. t.i.d. with a backup IM if the patient refused as per court order. 01/25 we have increased the Haldol but still he is very psychotic and restless. Today he refused his blood work. He needed to be physically held twice. 01/26 the patient remains agitated at times but his last IM backup was yesterday. We are going to increase Abilify up to 20 mg daily to target mood lability and psychosis. 01/29/2024: Increase frequency of prn doses from tid to prn q 6mrs. Poor insight and unable to care for self 02/08 pt has not take any of mood stabilizer. continues to have poor sleep, intrusive and combative requiring IM medications, increase haldol 10mg po TID, back up IM. Will add ativan 1mg po TID, also back up IM. Labs show elevated CK 2300, BUN 20, Cr 1.80, unclear baseline Cr as he does have CKD. Discussed with hospitalist Dr. Gama, to give IV fluids and monitor labs tomorrow. LFTs also elevated suspect this is secondary to elevation in CK and should trend down as CK goes down. 02/09 still agitated, creatinine and CPK slightly high as yesterday, he removed his IV line there is no big difference with IV hydration. We are changing his community role years to have more options since it is not working Abilify and Haldol 02/10 3 chemical restraints yesterday. appears more combative, and somewhat more confused. Will decrease amount of benzo and antihistamine given to him as it seems to be backfiring. did discuss with ICU attending, Dr. Whiteside possibility of transferring there but they would like us to try IV depakote and exhaust all resources prior to considering transfer. Pt did take depakote springkle 1000mg with apple sauce with much encourage. 02/11 continue tx. 02/12 continue same treatment 01/14 continue with Abilify and other court order medications, we are Nam[place] and the court order. 02/14 Team report improvement today with pt having greater comfort and less agitation. [id number] the staff reported that the patient had been less violent in the last 24 hours 02/16 continue tx. will check depakote and ammonia on 02/17 in AM. 02/17 continue regime and plan of care 02/26/2024: Continue current regimen as per court order 03/03 continue tx. lactulose for now as we don't have new ammonia level, but will try to chack labs. 03/16- continue medications, held clonidine patch for today due to low BP. repeat labs. 03/17-continue plan of care 03/18- continue tx 03/19 continue same treatment 03/20 waiting for CBC, basic metabolic panel and ammonia level. Today he nearly choked with a grape. We are going to change his diet to chopped 03/21 patient had a fall and he was assessed. No injuries as per CT scan of head and pelvis. Again he refused again his blood work vital signs within normal limits. 03/22 keep same treatment 03/23 keep same treatment 03 24 24 Continue plan of care Depakote Tegretol Haldol carbamazepine 03/25/2024 Repeat swallowing study ordered he is already on ground diet consider lowering Haldol versus Cogentin generally try to avoid older man 03/26 lowered Haldol to 7.5 p.o. b.i.d. 03/27 start Abilify Maintena 400 IM, later on we stopped it since he was over-sedated. 03/28 monitor vital signs and we will order blood work for tomorrow morning. 03/29 keep same treatment. We are deferring Abilify Maintena since the patient is still sedated and looks slightly delirious. He has refused blood work 03/31 continue current tx. less combative but no improvement in mentation. grossly disorganized and non sensical. 04/01: court ordered meds- team reviewing and optimizing same. 04/02 continue tx. 04/03 keep same treatment, so far he had been more compliant with some of the medications in the last 3 days. 04/04 start Abilify Maintena 400 mg IM 04/05 keep Haldol as prescribed 04/06 keep same treatment 04/08/24 continue current plan, regime 04/09/24 continue plan, CAT pending 04/10 continue same treatment 04/11 keep same treatment 04/12 lowering Haldol to 5 mg p.o. b.i.d. since the patient is over-sedated. 04/13 keep same treatment 04/14 agitated today, jumping around, dive off bed, crawling on all 4's, naked; took meds; now sleeping -floridly psychotic and fiction and nonfiction prose writer thought best to let pt sleep 04/16 keep same treatment 04/17 Abilify Maintena 400 mg today and scheduled next for 30 days. 04/18 change Haldol to 5 mg p.o. t.i.d. with backup IM if he refuses p.o. 04/19 keep same treatment. 04/20 keep same treatment 04/21: verbally aggressive, restless. continue 1:1 and current Tx plan. 04/22: asleep, not easily rousable. restless and irritable last gwen, slept only 4 hours overnight. continue current mgmt. 04/23 add Cogentin 0.5 p.o. b.i.d. small improvement on his psychosis 04/24 continue with same treatment. 04/25 the patient fell again. Blood pressure had been okay even though that he is noncompliant with clonidine patch. We discussed the case with the medical team and they agreed that we can discontinue since he had been noncompliant of clonidine patch since March 09. Starting on propranolol 5 mg p.o. t.i.d. to target akathisia. 04/26 continue tx. 04/27 continue tx. 04/28 reviewing labs- neutropenia and thrombocytopenia worsening Plt 88, ANC 1000, consult to mohamud/onc as plan to continue depakote given that it has been very difficult to stabilize patient. Also, pt with hx of DM, not on any medications. Will obtain A1c. continues to present disorganized, delirium-like presentation. VS are stable, BP on lower side, no need for additional medication for BP. depakote level 100.1. Ammonia level wnl. Will decrease dose of depakote given pancytopenia. 04/29 will stop depakote (one as it may be contributing to pancytopenia, second because it has not shown significant improvement in mentation), continue carbamazepine, pt seen by oncology- appreciate recommendations- 04/30 continue tx. continue to monitor ANC, Plts. oncology/hem following. 05/01 speech and thought process more organized- which is improvement. sexualized remarks, unaware of unsteady gait and weakness. will repeat CBC- continue monitor pancytopenia. 05/02/24 On lithium monitor pancytopenia wbc 3.0 less confused 05/03/24 Increase lithium 300 bid monitor response watch for confusion 05/04 continue current tx, willc heck lithium level, renal function, TSH and repeat CBC on 06/10 at 7am. may need to increase haldol 05/05/24 Continue lithium and Tegretol encourage fluids check lithium TSH electrolytes continue to monitor CBC 05/06/2024 Patient seen chart reviewed case reviewed with nursing staff. Patient was somewhat more dysphoric today tried to engage in conversation had a difficult time. He slept about 4 hours did get Haldol the other day was offered p.o. Ativan p.r.n. encourage fluids with lithium avoid nonsteroidals no gross confusion or tremor 05/07 continue tx. pending labs for lithium level, TSH, cbc on 05/10. 05/08 continue tx. 05/09 pt appeared to have seizure, was given ativan 2mg IM, CMP does show elevation in BUN 23, and elevation on Cr 1.50, mild hyperkalemia 5.2. CBC shows improvement in platelets 88 to 146, ANC also improved from 800 to 2300. normocytic anemia with Hg 11, stable H&H. will decreased lithium 150mg po BID. Increase carbamazepine to 300mg po BID. Awaiting recommendation from neurology. 05/10 continue tx. monitor CMP- renal function. seen by neurology. 05/11 repeat cmp tomorrow, lowered lithium to 150mg po qhs. continue monitoring renal function. 05/12 Patient doing well, polite, organized in speech and behavior. Discussed his lab work and medication regimen which he understood. Paralegal Assistant inquired about patient's awareness of the past months which he has little memory of but says I was out of my mind... And is happy to be organized. Says he wishes there was a piano on the unit; asks fiction and nonfiction prose writer about his career inappropriate, organized way. -switch to Q 15 minute checks Reviewed labs and BUN/creatinine improved; alk-phos only mildly elevated Continue with current treatment plan 05/14/24- continue monitor renal function, will also check carbamazepine level, cbc, and cmp on 05/16/2024. 05/15 continue tx. labs scheduled for 05/16 05/16 labs completed on 05/16 cbc with lower ANC 1500 (from 05/12 3200- this probably due to lowering lithium dose due to increase in BUN and Cr), Platelets trending up although slightly low 150, from 88 on 03/30/2023. Carbamazepine level 8.1 BUN 18, Cr 1.31 (improved from 05/12 BUN 20, Cr 1.46). 05/17 continue tx. Reason for continued inpatient stay Substantial Risk for: inability to function Time Spent With Patient Time: Total time managing care of this patient today ____ minutes.
[2024-05-17 20:00] VITALS: BP 115/58; PULSE 63; RESP 18; TEMP 36.1; O2SAT 100
[2024-05-17] MEDS: Lithium Carbonate 300 MG TABLET 150 MG PO (20:26)
[2024-05-18] MEDS: Cholecalciferol (Vitamin D3) 25 MCG TABLET 50 MCG PO (08:15)
[2024-05-18] MEDS: Ferrous Sulfate 324 MG TABLET.DR PO ×2 (08:15→20:21)
[2024-05-18] MEDS: Benztropine Mesylate 0.5 MG TABLET PO ×2 (08:16→20:21)
[2024-05-18] MEDS: carBAMazepine 200 MG TABLET 300 MG PO ×2 (08:16→20:21)
[2024-05-18] MEDS: HaloperidoL 5 MG TABLET PO ×3 (08:16→20:21)
[2024-05-18 08:19] VITALS: BP 116/57; PULSE 64; RESP 18; TEMP 36.6; O2SAT 100
--- NOTE | 2024-05-18 17:29 | P.PNPSI_ITS ---
Subjective Subjective Date of Service: 05/18/24 Reason For Visit: Schizoaffective disorder Interim History: Pt slept through the night. He continues to present with more organized thought process. No overt delusional content noted or reported. Some poverty of thought as well. His hygiene has improved. No behavioral concerns. labs completed on 05/16 cbc with lower ANC 1500 (from 05/12 3200- this probably due to lowering lithium dose due to increase in BUN and Cr), Platelets trending up although slightly low 150, from 88 on 03/30/2023. Carbamazepine level 8.1 BUN 18, Cr 1.31 (improved from 05/12 BUN 20, Cr 1.46). Review of Systems Review of Systems No overt seizure-like symptoms Yes Unobtainable due to mental status Mental Status Exam Mental Status Exam Narrative: Appearance: fair hygiene, casual clothing, dressing self on his own, in NAD Behavior: cooperative Psychomotor: no agitation or retardation Speech: some problem with enunciation due to edentulous, regular rate/rhythm/volume, spontaneous. TP:linear TC: WNL Mood: good Affect: congruent SI: denies HI: denies VH/AH: no overt signs Delusions: no overt Insight/judgment: improving x 2. Memory/cog: alert, oriented to place, month, year, somewhat to situation but much improved. Diagnostics Vital Signs (24Hr): Vital Signs - 24 hr 05/17/24 20:00 05/18/24 08:19 Temperature 96.9 F 97.8 F Pulse Rate 63 64 Respiratory Rate 18 18 Blood Pressure 115/58 L 116/57 L Pulse Oximetry 100 100 Oxygen Delivery Method Room Air Room Air BMI result Body Mass Index 22.0 Labs 05/16/24 07:30 05/16/24 07:30 Imaging Radiology Impressions: ITS Impressions Chest X-Ray 03/20/24 08:33 IMPRESSION: Extremely limited exam. Only lateral views could be obtained. Suspect basilar airspace opacity, possibly pneumonia. Electronically signed by: Fortino Dumont MD 03/20/2024 10:10 AM [facility] Cervical Spine CT 03/21/24 11:18 IMPRESSION: 1. Allowing for suboptimal positioning, there is no CT evidence of acute cervical spine fracture or injury. 2. Degenerative changes with bulky ventral osteophytes spanning C4-C6, appearance in keeping with DISH. Electronically signed by: Fortino Dumont MD 03/21/2024 12:01 PM EST RP Head CT 03/21/24 11:18 IMPRESSION: 1. No acute intracranial abnormality. No acute fractures seen. 2. Stable chronic findings as discussed. Electronically signed by: Fortino Dumont MD 03/21/2024 11:54 AM EST RP Pelvis CT 03/21/24 11:18 IMPRESSION: 1. No acute bony abnormalities. No fractures. 2. Constipation with a large amount of stool in the rectum and sigmoid colon. 3. Mild thickening of the urinary bladder wall despite underdistention, nonspecific. Differential includes the detrusor hypertrophy, neurogenic bladder, or possibly cystitis. Electronically signed by: Fortino Dumont MD 03/21/2024 12:09 PM EST RP Head CT 03/28/24 09:37 IMPRESSION: No acute fracture, bony calvarium. No acute intracranial hemorrhage. Small vessel occlusive disease. Bifrontal bitemporal lobe atrophy. Electronically signed by: Juan Corrigan MD 03/28/2024 10:19 AM EST RP Head CT 04/25/24 12:22 IMPRESSION: No acute intracranial process seen. Electronically signed by: Ritchie Marte MD 04/25/2024 01:01 PM EST RP Medications Medications Current Medications Acetaminophen (Acetaminophen 325 Mg Tablet) 650 mg PO Q6H PRN PRN Reason: Headache/Pain Mild Scale (1-3) Last Admin: 01/17/24 23:53 Dose: 325 mg Al Hydroxide/Mg Hydroxide (Magnesium Hydrox/Alum Hydrox 30 Ml Oral.Susp) 30 ml PO Q6H PRN PRN Reason: Heartburn/Nausea Aripiprazole (Aripiprazole Er 400 Mg Suser.Syr) 400 mg IM Q30D [facility] Last Admin: 05/17/24 10:49 Dose: 400 mg Aspirin (Aspirin 81 Mg Tab.Chew) 81 mg PO DAILY [facility] Last Admin: 04/23/24 08:34 Dose: 81 mg Benztropine Mesylate (Benztropine Mesylate 0.5 Mg Tablet) 0.5 mg PO BID [facility] Last Admin: 05/18/24 08:16 Dose: 0.5 mg Carbamazepine (Carbamazepine 200 Mg Tablet) 300 mg PO BID [facility] Last Admin: 05/18/24 08:16 Dose: 300 mg Ferrous Sulfate (Ferrous Sulfate 324 Mg Tablet.Dr) 324 mg PO BID [facility] Last Admin: 05/18/24 08:15 Dose: 324 mg Haloperidol (Haloperidol 5 Mg Tablet) 5 mg PO TID [facility] Last Admin: 05/18/24 16:17 Dose: 5 mg Haloperidol Lactate (Haloperidol Lactate Oral Conc 10 Mg/5 Ml Oral.Conc) 5 mg PO Q6H PRN PRN Reason: Psychosis or severe agitation Last Admin: 05/05/24 02:37 Dose: 5 mg Haloperidol Lactate (Haloperidol Lactate 5 Mg/Ml Vial) 5 mg IM TID PRN PRN Reason: Refusal of Court PO Haldol Last Admin: 05/06/24 00:36 Dose: 5 mg [place] Carbonate ([place] Carbonate 300 Mg Tablet) 150 mg PO BEDTIME [facility] Last Admin: 05/17/24 20:26 Dose: 150 mg Magnesium Hydroxide (Milk Of Magnesia 30 Ml Oral.Susp) 30 ml PO DAILY PRN PRN Reason: Constipation Nicotine Polacrilex (Nicotine Polacrilex 2 Mg Gum) 2 mg BUCCAL Q2H PRN PRN Reason: Nicotine Cravings Trazodone HCl (Trazodone Hcl 50 Mg Tablet) 50 mg PO BEDTIME PRN PRN Reason: Insomnia Last Admin: 05/16/24 20:16 Dose: 50 mg Vitamin D (Cholecalciferol (Vitamin D3) 25 Mcg Tablet) 50 mcg PO DAILY [facility] Last Admin: 05/18/24 08:15 Dose: 50 mcg Allergies Allergies Allergy/AdvReac Type Severity Reaction Status Date / Time lithium Allergy Unknown Verified 01/13/24 18:08 divalproex sodium AdvReac Severe encephalopa Verified 05/08/24 12:34 [From Depakote] thy Assessment & Plan Assessment & Plan (1) Schizoaffective disorder, bipolar type: Status: Acute Code(s): F25.0 - Schizoaffective disorder, bipolar type (2) Diabetes mellitus: Status: Acute Code(s): E11.9 - Type 2 diabetes mellitus without complications Assessment and Plan: A1c on 04/28 5.9% Not on current medications (3) Hypertension: Status: Acute Code(s): I10 - Essential (primary) hypertension Assessment and Plan: not on current medications (4) Pancytopenia: Status: Acute Code(s): D61.818 - Other pancytopenia Assessment and Plan: seems to be improving after dc depakote CBC on 05/09/2024--> shows improvement in platelets 88 to 146, ANC also improved from 800 to 2300. normocytic anemia with Hgb 11, stable H&H. labs completed on 05/16 cbc with lower ANC 1500 (from 05/12 3200- this probably due to lowering lithium dose due to increase in BUN and Cr), Platelets trending up although slightly low 150, from 88 on 03/30/2023. Carbamazepine level 8.1 BUN 18, Cr 1.31 (improved from 05/12 BUN 20, Cr 1.46). Plan 03/23 keep same treatment 68 yo from a halfway with chronic psychotic disorder, refusing medication , elevated bp and disorganized and agitated behavior requiring psychiatric hospitalization and treatment not competent to sign cv. 01/14 continue to follow - gave lambs warning today- and he says the gang tailer will be a she- still refusing medications and quite psychotic takes alot of redirection to settle him poor adls- 01/15- Refuses meds, refuses hospitalist consult-second day File for Section [place] consideration on 01/17. Provide care as he will allow. 01/16: Depakote 250 mg bid Haldol, Lorazepam, Benadryl prn Section 7 to be filed 01/17 Message left for guardian. 01/17: Section [address] filed. . Court scheduled 01/26/24 Pt continues to refuse medicaitons. He is in need of full assist with ADL's and is incontinent. Pt transferred to [facility] this afternoon. 01/19/2024 Patient pending civil commitment loud agitated would not engage in any conversation with this literary writer non informational healing agitated verbally aggressive. Every attempt being made to get a copy of the patient's Servin order unclear why this has been so problematic. Encourage food and fluids 01/19 continue same treatment 01/21/24 Patient labile agitated intrusive close labs ordered in order to per to protect the community patient wandering into patient's rooms intrusive impulsive laying on another person's bed. Often hostile agitated posturing at times we are still pending copy of reported Servin order encourage p.o. compliance 01/22/2024 Patient did require physical hold escort him out of a room that he jumped in other patient's room and on their bed while there were in it. There was no physical harm and the patient did leave the room his markedly impulsive with poor judgment remains on close observation has intermittently taken Haldol liquid pending civil commitment treatment plan there is a question of Servin order 01/22 The patient had been more agitated. We review his Servin order and we are increasing the Abilify up to 15 mg p.o. daily and adding Haldol p.r.n. since it is in his role years order. We needed to give him some p.r.n. at 14:00. 01/23 The patient is grossly psychotic disrobing and sexually disinhibited we are starting Haldol 2 mg p.o. t.i.d. to target psychosis as per court order treatment over objection order. 01/24 The patient remains very agitated and angry disruptive so we are increasing the Haldol from 2 mg to 5 mg p.o. t.i.d. with a backup IM if the patient refused as per court order. 01/25 we have increased the Haldol but still he is very psychotic and restless. Today he refused his blood work. He needed to be physically held twice. 01/26 the patient remains agitated at times but his last IM backup was yesterday. We are going to increase Abilify up to 20 mg daily to target mood lability and psychosis. 01/29/2024: Increase frequency of prn doses from tid to prn q 6mrs. Poor insight and unable to care for self 02/08 pt has not take any of mood stabilizer. continues to have poor sleep, intrusive and combative requiring IM medications, increase haldol 10mg po TID, back up IM. Will add ativan 1mg po TID, also back up IM. Labs show elevated CK 2300, BUN 20, Cr 1.80, unclear baseline Cr as he does have CKD. Discussed with hospitalist Dr. Gama, to give IV fluids and monitor labs tomorrow. LFTs also elevated suspect this is secondary to elevation in CK and should trend down as CK goes down. 02/09 still agitated, creatinine and CPK slightly high as yesterday, he removed his IV line there is no big difference with IV hydration. We are changing his community role years to have more options since it is not working Abilify and Haldol 02/10 3 chemical restraints yesterday. appears more combative, and somewhat more confused. Will decrease amount of benzo and antihistamine given to him as it seems to be backfiring. did discuss with ICU attending, Dr. Whiteside possibility of transferring there but they would like us to try IV depakote and exhaust all resources prior to considering transfer. Pt did take depakote springkle 1000mg with apple sauce with much encourage. 02/11 continue tx. 02/12 continue same treatment 01/14 continue with Abilify and other court order medications, we are Nam[place] and the court order. 02/14 Team report improvement today with pt having greater comfort and less agitation. [id number] the staff reported that the patient had been less violent in the last 24 hours 02/16 continue tx. will check depakote and ammonia on 02/17 in AM. 02/17 continue regime and plan of care 02/26/2024: Continue current regimen as per court order 03/03 continue tx. lactulose for now as we don't have new ammonia level, but will try to chack labs. 03/16- continue medications, held clonidine patch for today due to low BP. repeat labs. 03/17-continue plan of care 03/18- continue tx 03/19 continue same treatment 03/20 waiting for CBC, basic metabolic panel and ammonia level. Today he nearly choked with a grape. We are going to change his diet to chopped 03/21 patient had a fall and he was assessed. No injuries as per CT scan of head and pelvis. Again he refused again his blood work vital signs within normal limits. 03/22 keep same treatment 03/23 keep same treatment 03 24 24 Continue plan of care Depakote Tegretol Haldol carbamazepine 03/25/2024 Repeat swallowing study ordered he is already on ground diet consider lowering Haldol versus Cogentin generally try to avoid older man 03/26 lowered Haldol to 7.5 p.o. b.i.d. 03/27 start Abilify Maintena 400 IM, later on we stopped it since he was over- sedated. 03/28 monitor vital signs and we will order blood work for tomorrow morning. 03/29 keep same treatment. We are deferring Abilify Maintena since the patient is still sedated and looks slightly delirious. He has refused blood work 03/31 continue current tx. less combative but no improvement in mentation. grossly disorganized and non sensical. 04/01: court ordered meds- team reviewing and optimizing same. 04/02 continue tx. 04/03 keep same treatment, so far he had been more compliant with some of the medications in the last 3 days. 04/04 start Abilify Maintena 400 mg IM 04/05 keep Haldol as prescribed 04/06 keep same treatment 04/08/24 continue current plan, regime 04/09/24 continue plan, CAT pending 04/10 continue same treatment 04/11 keep same treatment 04/12 lowering Haldol to 5 mg p.o. b.i.d. since the patient is over-sedated. 04/13 keep same treatment 04/14 agitated today, jumping around, dive off bed, crawling on all 4's, naked; took meds; now sleeping -floridly psychotic and literary writer thought best to let pt sleep 04/16 keep same treatment 04/17 Abilify Maintena 400 mg today and scheduled next for 30 days. 04/18 change Haldol to 5 mg p.o. t.i.d. with backup IM if he refuses p.o. 04/19 keep same treatment. 04/20 keep same treatment 04/21: verbally aggressive, restless. continue 1:1 and current Tx plan. 04/22: asleep, not easily rousable. restless and irritable last gwen, slept only 4 hours overnight. continue current mgmt. 04/23 add Cogentin 0.5 p.o. b.i.d. small improvement on his psychosis 04/24 continue with same treatment. 04/25 the patient fell again. Blood pressure had been okay even though that he is noncompliant with clonidine patch. We discussed the case with the medical team and they agreed that we can discontinue since he had been noncompliant of clonidine patch since March 09. Starting on propranolol 5 mg p.o. t.i.d. to target akathisia. 04/26 continue tx. 04/27 continue tx. 04/28 reviewing labs- neutropenia and thrombocytopenia worsening Plt 88, ANC 1000, consult to mohamud/onc as plan to continue depakote given that it has been very difficult to stabilize patient. Also, pt with hx of DM, not on any medications. Will obtain A1c. continues to present disorganized, delirium-like presentation. VS are stable, BP on lower side, no need for additional medication for BP. depakote level 100.1. Ammonia level wnl. Will decrease dose of depakote given pancytopenia. 04/29 will stop depakote (one as it may be contributing to pancytopenia, second because it has not shown significant improvement in mentation), continue carbamazepine, pt seen by oncology- appreciate recommendations- 04/30 continue tx. continue to monitor ANC, Plts. oncology/hem following. 05/01 speech and thought process more organized- which is improvement. sexualized remarks, unaware of unsteady gait and weakness. will repeat CBC- continue monitor pancytopenia. 05/02/24 On lithium monitor pancytopenia wbc 3.0 less confused 05/03/24 Increase lithium 300 bid monitor response watch for confusion 05/04 continue current tx, willc heck lithium level, renal function, TSH and repeat CBC on 06/10 at 7am. may need to increase haldol 05/05/24 Continue lithium and Tegretol encourage fluids check lithium TSH electrolytes continue to monitor CBC 05/06/2024 Patient seen chart reviewed case reviewed with nursing staff. Patient was somewhat more dysphoric today tried to engage in conversation had a difficult time. He slept about 4 hours did get Haldol the other day was offered p.o. Ativan p.r.n. encourage fluids with lithium avoid nonsteroidals no gross confusion or tremor 05/07 continue tx. pending labs for lithium level, TSH, cbc on 05/10. 05/08 continue tx. 05/09 pt appeared to have seizure, was given ativan 2mg IM, CMP does show elevation in BUN 23, and elevation on Cr 1.50, mild hyperkalemia 5.2. CBC shows improvement in platelets 88 to 146, ANC also improved from 800 to 2300. normocytic anemia with Hg 11, stable H&H. will decreased lithium 150mg po BID. Increase carbamazepine to 300mg po BID. Awaiting recommendation from neurology. 05/10 continue tx. monitor CMP- renal function. seen by neurology. 05/11 repeat cmp tomorrow, lowered lithium to 150mg po qhs. continue monitoring renal function. 05/12 Patient doing well, polite, organized in speech and behavior. Discussed his lab work and medication regimen which he understood. Purchasing/Receiving inquired about patient's awareness of the past months which he has little memory of but says I was out of my mind... And is happy to be organized. Says he wishes there was a piano on the unit; asks literary writer about his career inappropriate, organized way. -switch to Q 15 minute checks Reviewed labs and BUN/creatinine improved; alk-phos only mildly elevated Continue with current treatment plan 05/14/24- continue monitor renal function, will also check carbamazepine level, cbc, and cmp on 05/16/2024. 05/15 continue tx. labs scheduled for 05/16 05/16 labs completed on 05/16 cbc with lower ANC 1500 (from 05/12 3200- this probably due to lowering lithium dose due to increase in BUN and Cr), Platelets trending up although slightly low 150, from 88 on 03/30/2023. Carbamazepine level 8.1 BUN 18, Cr 1.31 (improved from 05/12 BUN 20, Cr 1.46). 05/17 continue tx. 05/18 continue tx. Reason for continued inpatient stay Substantial Risk for: inability to function Time Spent With Patient Time: Total time managing care of this patient today ____ minutes.
[2024-05-18 20:00] VITALS: BP 130/73; PULSE 65; RESP 18; TEMP 36; O2SAT 100
[2024-05-18] MEDS: Lithium Carbonate 300 MG TABLET 150 MG PO (20:21)
[2024-05-19 07:55] VITALS: BP 130/63; PULSE 65; RESP 16; TEMP 36.5; O2SAT 100
[2024-05-19] MEDS: Cholecalciferol (Vitamin D3) 25 MCG TABLET 50 MCG PO (08:00)
[2024-05-19] MEDS: HaloperidoL 5 MG TABLET PO ×3 (08:02→21:00)
[2024-05-19] MEDS: Benztropine Mesylate 0.5 MG TABLET PO ×2 (08:02→21:00)
[2024-05-19] MEDS: Ferrous Sulfate 324 MG TABLET.DR PO ×2 (08:03→21:00)
[2024-05-19] MEDS: carBAMazepine 200 MG TABLET 300 MG PO ×2 (08:03→20:59)
--- NOTE | 2024-05-19 09:09 | HO.PSYCHPN ---
Subjective Subjective Date of Service: 05/19/24 Reason For Visit: Schizoaffective disorder Subjective Notes: Conditional Voluntary Healthcare Proxy: Yes Guardianship: No Interim History: 68 yo lying in bed, good eye contact, asking this provider how do we know that the medication is the correct dosage? Answered his question - he denies any side effects and I pointed out he is much improved over prior- Medication Compliance: Yes Side effects from medications: No Attending Groups: Intermittent Review of Systems Acute medical concerns: No Medical Review of Systems: unchanged Mental Status Exam Mental Status Exam Narrative: lying in bed on side, fully dressed, cooperative! Patient Appearance: Appropriate Patient Orientation: Person, Place and Situation Level of Consciousness: Awake Patient Behavior: Appropriate, Cooperative and Good Eye Contact Mood Description: Calm Affect Description: Blunted Patient Cognition Impaired: No Ability to Follow Directions: Good Speech Pattern: Clear Hallucinations: None Delusions: Not Present Thought Process: Intact and Goal Oriented Thought Content: positive for [place] and positive for Poverty of Content Judgement: Fair Diagnostics Vital Signs (24Hr): Vital Signs - 24 hr 05/18/24 20:00 05/19/24 07:55 Temperature 96.8 F 97.7 F Pulse Rate 65 65 Respiratory Rate 18 16 Blood Pressure 130/73 130/63 Pulse Oximetry 100 100 Oxygen Delivery Method Room Air Room Air BMI result Body Mass Index 22.0 Labs 05/16/24 07:30 05/16/24 07:30 Imaging Radiology Impressions: ITS Impressions Chest X-Ray 03/20/24 08:33 IMPRESSION: Extremely limited exam. Only lateral views could be obtained. Suspect basilar airspace opacity, possibly pneumonia. Electronically signed by: Fortino Dumont MD 03/20/2024 10:10 AM EST RP Cervical Spine CT 03/21/24 11:18 IMPRESSION: 1. Allowing for suboptimal positioning, there is no CT evidence of acute cervical spine fracture or injury. 2. Degenerative changes with bulky ventral osteophytes spanning C4-C6, appearance in keeping with DISH. Electronically signed by: Fortino Dumont MD 03/21/2024 12:01 PM EST RP Head CT 03/21/24 11:18 IMPRESSION: 1. No acute intracranial abnormality. No acute fractures seen. 2. Stable chronic findings as discussed. Electronically signed by: Fortino Dumont MD 03/21/2024 11:54 AM EST RP Pelvis CT 03/21/24 11:18 IMPRESSION: 1. No acute bony abnormalities. No fractures. 2. Constipation with a large amount of stool in the rectum and sigmoid colon. 3. Mild thickening of the urinary bladder wall despite underdistention, nonspecific. Differential includes the detrusor hypertrophy, neurogenic bladder, or possibly cystitis. Electronically signed by: Fortino Dumont MD 03/21/2024 12:09 PM EST RP Head CT 03/28/24 09:37 IMPRESSION: No acute fracture, bony calvarium. No acute intracranial hemorrhage. Small vessel occlusive disease. Bifrontal bitemporal lobe atrophy. Electronically signed by: Juan Corrigan MD 03/28/2024 10:19 AM EST RP Head CT 04/25/24 12:22 IMPRESSION: No acute intracranial process seen. Electronically signed by: Ritchie Marte MD 04/25/2024 01:01 PM EST RP Medications Medications Current Medications Acetaminophen (Acetaminophen 325 Mg Tablet) 650 mg PO Q6H PRN PRN Reason: Headache/Pain Mild Scale (1-3) Last Admin: 01/17/24 23:53 Dose: 325 mg Al Hydroxide/Mg Hydroxide (Magnesium Hydrox/Alum Hydrox 30 Ml Oral.Susp) 30 ml PO Q6H PRN PRN Reason: Heartburn/Nausea Aripiprazole (Aripiprazole Er 400 Mg Suser.Syr) 400 mg IM Q30D [facility] Last Admin: 05/17/24 10:49 Dose: 400 mg Aspirin (Aspirin 81 Mg Tab.Chew) 81 mg PO DAILY [facility] Last Admin: 04/23/24 08:34 Dose: 81 mg Benztropine Mesylate (Benztropine Mesylate 0.5 Mg Tablet) 0.5 mg PO BID [facility] Last Admin: 05/19/24 08:02 Dose: 0.5 mg Carbamazepine (Carbamazepine 200 Mg Tablet) 300 mg PO BID [facility] Last Admin: 05/19/24 08:03 Dose: 300 mg Ferrous Sulfate (Ferrous Sulfate 324 Mg Tablet.Dr) 324 mg PO BID [facility] Last Admin: 05/19/24 08:03 Dose: 324 mg Haloperidol (Haloperidol 5 Mg Tablet) 5 mg PO TID [facility] Last Admin: 05/19/24 08:02 Dose: 5 mg Haloperidol Lactate (Haloperidol Lactate Oral Conc 10 Mg/5 Ml Oral.Conc) 5 mg PO Q6H PRN PRN Reason: Psychosis or severe agitation Last Admin: 05/05/24 02:37 Dose: 5 mg Haloperidol Lactate (Haloperidol Lactate 5 Mg/Ml Vial) 5 mg IM TID PRN PRN Reason: Refusal of Court PO Haldol Last Admin: 05/06/24 00:36 Dose: 5 mg [place] Carbonate ([place] Carbonate 300 Mg Tablet) 150 mg PO BEDTIME [facility] Last Admin: 05/18/24 20:21 Dose: 150 mg Magnesium Hydroxide (Milk Of Magnesia 30 Ml Oral.Susp) 30 ml PO DAILY PRN PRN Reason: Constipation Nicotine Polacrilex (Nicotine Polacrilex 2 Mg Gum) 2 mg BUCCAL Q2H PRN PRN Reason: Nicotine Cravings Trazodone HCl (Trazodone Hcl 50 Mg Tablet) 50 mg PO BEDTIME PRN PRN Reason: Insomnia Last Admin: 05/16/24 20:16 Dose: 50 mg Vitamin D (Cholecalciferol (Vitamin D3) 25 Mcg Tablet) 50 mcg PO DAILY [facility] Last Admin: 05/19/24 08:00 Dose: 50 mcg Allergies Allergies Allergy/AdvReac Type Severity Reaction Status Date / Time lithium Allergy Unknown Verified 01/13/24 18:08 divalproex sodium AdvReac Severe encephalopa Verified 05/08/24 12:34 [From Depakote] thy Assessment & Plan Assessment & Plan (1) Schizoaffective disorder, bipolar type: Status: Acute Code(s): F25.0 - Schizoaffective disorder, bipolar type (2) Diabetes mellitus: Status: Acute Code(s): E11.9 - Type 2 diabetes mellitus without complications Assessment and Plan: A1c on 04/28 5.9% Not on current medications (3) Hypertension: Status: Acute Code(s): I10 - Essential (primary) hypertension Assessment and Plan: not on current medications (4) Pancytopenia: Status: Acute Code(s): D61.818 - Other pancytopenia Assessment and Plan: seems to be improving after dc depakote CBC on 05/09/2024--> shows improvement in platelets 88 to 146, ANC also improved from 800 to 2300. normocytic anemia with Hgb 11, stable H&H. labs completed on 05/16 cbc with lower ANC 1500 (from 05/12 3200- this probably due to lowering lithium dose due to increase in BUN and Cr), Platelets trending up although slightly low 150, from 88 on 03/30/2023. Carbamazepine level 8.1 BUN 18, Cr 1.31 (improved from 05/12 BUN 20, Cr 1.46). Plan 03/23 keep same treatment 68 yo from a long-term with chronic psychotic disorder, refusing medication , elevated bp and disorganized and agitated behavior requiring psychiatric hospitalization and treatment not competent to sign cv. 01/14 continue to follow - gave lambs warning today- and he says the family service worker will be a she- still refusing medications and quite psychotic takes alot of redirection to settle him poor adls- 01/15- Refuses meds, refuses hospitalist consult-second day File for Section [place] consideration on 01/17. Provide care as he will allow. 01/16: Depakote 250 mg bid Haldol, Lorazepam, Benadryl prn Section 7 to be filed 01/17 Message left for guardian. 01/17: Section [address] filed. . Court scheduled 01/26/24 Pt continues to refuse medicaitons. He is in need of full assist with ADL's and is incontinent. Pt transferred to [facility] this afternoon. 01/19/2024 Patient pending civil commitment loud agitated would not engage in any conversation with this communications writer non informational healing agitated verbally aggressive. Every attempt being made to get a copy of the patient's Servin order unclear why this has been so problematic. Encourage food and fluids 01/19 continue same treatment 01/21/24 Patient labile agitated intrusive close labs ordered in order to per to protect the community patient wandering into patient's rooms intrusive impulsive laying on another person's bed. Often hostile agitated posturing at times we are still pending copy of reported Servin order encourage p.o. compliance 01/22/2024 Patient did require physical hold escort him out of a room that he jumped in other patient's room and on their bed while there were in it. There was no physical harm and the patient did leave the room his markedly impulsive with poor judgment remains on close observation has intermittently taken Haldol liquid pending civil commitment treatment plan there is a question of Servin order 01/22 The patient had been more agitated. We review his Servin order and we are increasing the Abilify up to 15 mg p.o. daily and adding Haldol p.r.n. since it is in his role years order. We needed to give him some p.r.n. at 14:00. 01/23 The patient is grossly psychotic disrobing and sexually disinhibited we are starting Haldol 2 mg p.o. t.i.d. to target psychosis as per court order treatment over objection order. 01/24 The patient remains very agitated and angry disruptive so we are increasing the Haldol from 2 mg to 5 mg p.o. t.i.d. with a backup IM if the patient refused as per court order. 01/25 we have increased the Haldol but still he is very psychotic and restless. Today he refused his blood work. He needed to be physically held twice. 01/26 the patient remains agitated at times but his last IM backup was yesterday. We are going to increase Abilify up to 20 mg daily to target mood lability and psychosis. 01/29/2024: Increase frequency of prn doses from tid to prn q 6mrs. Poor insight and unable to care for self 02/08 pt has not take any of mood stabilizer. continues to have poor sleep, intrusive and combative requiring IM medications, increase haldol 10mg po TID, back up IM. Will add ativan 1mg po TID, also back up IM. Labs show elevated CK 2300, BUN 20, Cr 1.80, unclear baseline Cr as he does have CKD. Discussed with hospitalist Dr. Gama, to give IV fluids and monitor labs tomorrow. LFTs also elevated suspect this is secondary to elevation in CK and should trend down as CK goes down. 02/09 still agitated, creatinine and CPK slightly high as yesterday, he removed his IV line there is no big difference with IV hydration. We are changing his community role years to have more options since it is not working Abilify and Haldol 02/10 3 chemical restraints yesterday. appears more combative, and somewhat more confused. Will decrease amount of benzo and antihistamine given to him as it seems to be backfiring. did discuss with ICU attending, Dr. Whiteside possibility of transferring there but they would like us to try IV depakote and exhaust all resources prior to considering transfer. Pt did take depakote springkle 1000mg with apple sauce with much encourage. 02/11 continue tx. 02/12 continue same treatment 01/14 continue with Abilify and other court order medications, we are Nam[place] and the court order. 02/14 Team report improvement today with pt having greater comfort and less agitation. [id number] the staff reported that the patient had been less violent in the last 24 hours 02/16 continue tx. will check depakote and ammonia on 02/17 in AM. 02/17 continue regime and plan of care 02/26/2024: Continue current regimen as per court order 03/03 continue tx. lactulose for now as we don't have new ammonia level, but will try to chack labs. 03/16- continue medications, held clonidine patch for today due to low BP. repeat labs. 03/17-continue plan of care 03/18- continue tx 03/19 continue same treatment 03/20 waiting for CBC, basic metabolic panel and ammonia level. Today he nearly choked with a grape. We are going to change his diet to chopped 03/21 patient had a fall and he was assessed. No injuries as per CT scan of head and pelvis. Again he refused again his blood work vital signs within normal limits. 03/22 keep same treatment 03/23 keep same treatment 03 24 24 Continue plan of care Depakote Tegretol Haldol carbamazepine 03/25/2024 Repeat swallowing study ordered he is already on ground diet consider lowering Haldol versus Cogentin generally try to avoid older man 03/26 lowered Haldol to 7.5 p.o. b.i.d. 03/27 start Abilify Maintena 400 IM, later on we stopped it since he was over-sedated. 03/28 monitor vital signs and we will order blood work for tomorrow morning. 03/29 keep same treatment. We are deferring Abilify Maintena since the patient is still sedated and looks slightly delirious. He has refused blood work 03/31 continue current tx. less combative but no improvement in mentation. grossly disorganized and non sensical. 04/01: court ordered meds- team reviewing and optimizing same. 04/02 continue tx. 04/03 keep same treatment, so far he had been more compliant with some of the medications in the last 3 days. 04/04 start Abilify Maintena 400 mg IM 04/05 keep Haldol as prescribed 04/06 keep same treatment 04/08/24 continue current plan, regime 04/09/24 continue plan, CAT pending 04/10 continue same treatment 04/11 keep same treatment 04/12 lowering Haldol to 5 mg p.o. b.i.d. since the patient is over-sedated. 04/13 keep same treatment 04/14 agitated today, jumping around, dive off bed, crawling on all 4's, naked; took meds; now sleeping -floridly psychotic and communications writer thought best to let pt sleep 04/16 keep same treatment 04/17 Abilify Maintena 400 mg today and scheduled next for 30 days. 04/18 change Haldol to 5 mg p.o. t.i.d. with backup IM if he refuses p.o. 04/19 keep same treatment. 04/20 keep same treatment 04/21: verbally aggressive, restless. continue 1:1 and current Tx plan. 04/22: asleep, not easily rousable. restless and irritable last gwen, slept only 4 hours overnight. continue current mgmt. 04/23 add Cogentin 0.5 p.o. b.i.d. small improvement on his psychosis 04/24 continue with same treatment. 04/25 the patient fell again. Blood pressure had been okay even though that he is noncompliant with clonidine patch. We discussed the case with the medical team and they agreed that we can discontinue since he had been noncompliant of clonidine patch since March 09. Starting on propranolol 5 mg p.o. t.i.d. to target akathisia. 04/26 continue tx. 04/27 continue tx. 04/28 reviewing labs- neutropenia and thrombocytopenia worsening Plt 88, ANC 1000, consult to mohamud/onc as plan to continue depakote given that it has been very difficult to stabilize patient. Also, pt with hx of DM, not on any medications. Will obtain A1c. continues to present disorganized, delirium-like presentation. VS are stable, BP on lower side, no need for additional medication for BP. depakote level 100.1. Ammonia level wnl. Will decrease dose of depakote given pancytopenia. 04/29 will stop depakote (one as it may be contributing to pancytopenia, second because it has not shown significant improvement in mentation), continue carbamazepine, pt seen by oncology- appreciate recommendations- 04/30 continue tx. continue to monitor ANC, Plts. oncology/hem following. 05/01 speech and thought process more organized- which is improvement. sexualized remarks, unaware of unsteady gait and weakness. will repeat CBC- continue monitor pancytopenia. 05/02/24 On lithium monitor pancytopenia wbc 3.0 less confused 05/03/24 Increase lithium 300 bid monitor response watch for confusion 05/04 continue current tx, willc heck lithium level, renal function, TSH and repeat CBC on 06/10 at 7am. may need to increase haldol 05/05/24 Continue lithium and Tegretol encourage fluids check lithium TSH electrolytes continue to monitor CBC 05/06/2024 Patient seen chart reviewed case reviewed with nursing staff. Patient was somewhat more dysphoric today tried to engage in conversation had a difficult time. He slept about 4 hours did get Haldol the other day was offered p.o. Ativan p.r.n. encourage fluids with lithium avoid nonsteroidals no gross confusion or tremor 05/07 continue tx. pending labs for lithium level, TSH, cbc on 05/10. 05/08 continue tx. 05/09 pt appeared to have seizure, was given ativan 2mg IM, CMP does show elevation in BUN 23, and elevation on Cr 1.50, mild hyperkalemia 5.2. CBC shows improvement in platelets 88 to 146, ANC also improved from 800 to 2300. normocytic anemia with Hg 11, stable H&H. will decreased lithium 150mg po BID. Increase carbamazepine to 300mg po BID. Awaiting recommendation from neurology. 05/10 continue tx. monitor CMP- renal function. seen by neurology. 05/11 repeat cmp tomorrow, lowered lithium to 150mg po qhs. continue monitoring renal function. 05/12 Patient doing well, polite, organized in speech and behavior. Discussed his lab work and medication regimen which he understood. Melt Room Operator inquired about patient's awareness of the past months which he has little memory of but says I was out of my mind... And is happy to be organized. Says he wishes there was a piano on the unit; asks communications writer about his career inappropriate, organized way. -switch to Q 15 minute checks Reviewed labs and BUN/creatinine improved; alk-phos only mildly elevated Continue with current treatment plan 05/14/24- continue monitor renal function, will also check carbamazepine level, cbc, and cmp on 05/16/2024. 05/15 continue tx. labs scheduled for 05/16 05/16 labs completed on 05/16 cbc with lower ANC 1500 (from 05/12 3200- this probably due to lowering lithium dose due to increase in BUN and Cr), Platelets trending up although slightly low 150, from 88 on 03/30/2023. Carbamazepine level 8.1 BUN 18, Cr 1.31 (improved from 05/12 BUN 20, Cr 1.46). 05/17 continue tx. 05/18 continue tx. 05/19- much improved CTP! Patient educated on: medication risk/benefits Informed Consent: understands Reason for continued inpatient stay Substantial Risk for: inability to function and rapid decompensation Time Spent With Patient Time: Total time managing care of this patient today ____ minutes.
[2024-05-19 20:00] VITALS: BP 147/67; PULSE 63; RESP 17; TEMP 36.9; O2SAT 100
[2024-05-19] MEDS: Lithium Carbonate 300 MG TABLET 150 MG PO (21:00)
[2024-05-20] MEDS: Benztropine Mesylate 0.5 MG TABLET PO ×2 (07:59→20:22)
[2024-05-20 08:00] VITALS: BP 148/69; PULSE 77; RESP 17; TEMP 36.4; O2SAT 100
[2024-05-20] MEDS: Ferrous Sulfate 324 MG TABLET.DR PO ×2 (08:00→20:22)
[2024-05-20] MEDS: HaloperidoL 5 MG TABLET PO ×3 (08:00→20:22)
[2024-05-20] MEDS: carBAMazepine 200 MG TABLET 300 MG PO ×2 (08:09→20:22)
[2024-05-20] MEDS: Cholecalciferol (Vitamin D3) 25 MCG TABLET 50 MCG PO (08:11)
--- NOTE | 2024-05-20 10:37 | HO.PSYCHPN ---
Subjective Subjective Date of Service: 05/20/24 Reason For Visit: Schizoaffective disorder Subjective Notes: Conditional Voluntary Healthcare Proxy: No Guardianship: No Medical Problems Affecting Mental Status: No Interim History: 68 yo with hx of encephalopathy- doing much better on current medications- talked to him lying in bed- denies side effects- denies bad thoughts/or feelings at this time. Medication Compliance: Yes Side effects from medications: No Attending Groups: No Review of Systems Acute medical concerns: No Medical Review of Systems: changed (need to advance diet - will get swallow study- ) Mental Status Exam Mental Status Exam Patient Appearance: Appropriate Patient Orientation: Person and Place Level of Consciousness: Awake Patient Behavior: Cooperative and Passive Mood Description: Apathetic Affect Description: Blunted Patient Cognition Impaired: No Ability to Follow Directions: Fair Speech Pattern: Clear Hallucinations: None Delusions: Not Present Thought Process: Intact Judgement: Fair Diagnostics Vital Signs (24Hr): Vital Signs - 24 hr 05/19/24 20:00 05/20/24 08:00 Temperature 98.5 F 97.6 F Pulse Rate 63 77 Respiratory Rate 17 17 Blood Pressure 147/67 H 148/69 H Pulse Oximetry 100 100 Oxygen Delivery Method Room Air Room Air BMI result Body Mass Index 22.0 Labs 05/16/24 07:30 05/16/24 07:30 Labs: still low counts but higher than prior! Imaging Radiology Impressions: ITS Impressions Chest X-Ray 03/20/24 08:33 IMPRESSION: Extremely limited exam. Only lateral views could be obtained. Suspect basilar airspace opacity, possibly pneumonia. Electronically signed by: Fortino Dumont MD 03/20/2024 10:10 AM EST RP Cervical Spine CT 03/21/24 11:18 IMPRESSION: 1. Allowing for suboptimal positioning, there is no CT evidence of acute cervical spine fracture or injury. 2. Degenerative changes with bulky ventral osteophytes spanning C4-C6, appearance in keeping with DISH. Electronically signed by: Fortino Dumont MD 03/21/2024 12:01 PM EST RP Head CT 03/21/24 11:18 IMPRESSION: 1. No acute intracranial abnormality. No acute fractures seen. 2. Stable chronic findings as discussed. Electronically signed by: Fortino Dumont MD 03/21/2024 11:54 AM EST RP Pelvis CT 03/21/24 11:18 IMPRESSION: 1. No acute bony abnormalities. No fractures. 2. Constipation with a large amount of stool in the rectum and sigmoid colon. 3. Mild thickening of the urinary bladder wall despite underdistention, nonspecific. Differential includes the detrusor hypertrophy, neurogenic bladder, or possibly cystitis. Electronically signed by: Fortino Dumont MD 03/21/2024 12:09 PM EST RP Head CT 03/28/24 09:37 IMPRESSION: No acute fracture, bony calvarium. No acute intracranial hemorrhage. Small vessel occlusive disease. Bifrontal bitemporal lobe atrophy. Electronically signed by: Juan Corrigan MD 03/28/2024 10:19 AM EST RP Head CT 04/25/24 12:22 IMPRESSION: No acute intracranial process seen. Electronically signed by: Ritchie Marte MD 04/25/2024 01:01 PM EST RP Medications Medications Current Medications Acetaminophen (Acetaminophen 325 Mg Tablet) 650 mg PO Q6H PRN PRN Reason: Headache/Pain Mild Scale (1-3) Last Admin: 01/17/24 23:53 Dose: 325 mg Al Hydroxide/Mg Hydroxide (Magnesium Hydrox/Alum Hydrox 30 Ml Oral.Susp) 30 ml PO Q6H PRN PRN Reason: Heartburn/Nausea Aripiprazole (Aripiprazole Er 400 Mg Suser.Syr) 400 mg IM Q30D [facility] Last Admin: 05/17/24 10:49 Dose: 400 mg Aspirin (Aspirin 81 Mg Tab.Chew) 81 mg PO DAILY [facility] Last Admin: 04/23/24 08:34 Dose: 81 mg Benztropine Mesylate (Benztropine Mesylate 0.5 Mg Tablet) 0.5 mg PO BID [facility] Last Admin: 05/20/24 07:59 Dose: 0.5 mg Carbamazepine (Carbamazepine 200 Mg Tablet) 300 mg PO BID [facility] Last Admin: 05/20/24 08:09 Dose: 300 mg Ferrous Sulfate (Ferrous Sulfate 324 Mg Tablet.Dr) 324 mg PO BID [facility] Last Admin: 05/20/24 08:00 Dose: 324 mg Haloperidol (Haloperidol 5 Mg Tablet) 5 mg PO TID [facility] Last Admin: 05/20/24 08:00 Dose: 5 mg Haloperidol Lactate (Haloperidol Lactate Oral Conc 10 Mg/5 Ml Oral.Conc) 5 mg PO Q6H PRN PRN Reason: Psychosis or severe agitation Last Admin: 05/05/24 02:37 Dose: 5 mg Haloperidol Lactate (Haloperidol Lactate 5 Mg/Ml Vial) 5 mg IM TID PRN PRN Reason: Refusal of Court PO Haldol Last Admin: 05/06/24 00:36 Dose: 5 mg Naschitti Carbonate (Naschitti Carbonate 300 Mg Tablet) 150 mg PO BEDTIME KASIA Last Admin: 05/19/24 21:00 Dose: 150 mg Magnesium Hydroxide (Milk Of Magnesia 30 Ml Oral.Susp) 30 ml PO DAILY PRN PRN Reason: Constipation Nicotine Polacrilex (Nicotine Polacrilex 2 Mg Gum) 2 mg BUCCAL Q2H PRN PRN Reason: Nicotine Cravings Trazodone HCl (Trazodone Hcl 50 Mg Tablet) 50 mg PO BEDTIME PRN PRN Reason: Insomnia Last Admin: 05/16/24 20:16 Dose: 50 mg Vitamin D (Cholecalciferol (Vitamin D3) 25 Mcg Tablet) 50 mcg PO DAILY KASIA Last Admin: 05/20/24 08:11 Dose: 50 mcg Allergies Allergies Allergy/AdvReac Type Severity Reaction Status Date / Time lithium Allergy Unknown Verified 01/13/24 18:08 divalproex sodium AdvReac Severe encephalopa Verified 05/08/24 12:34 [From Depakote] thy Assessment & Plan Assessment & Plan (1) Schizoaffective disorder, bipolar type: Status: Acute Code(s): F25.0 - Schizoaffective disorder, bipolar type (2) Diabetes mellitus: Status: Acute Code(s): E11.9 - Type 2 diabetes mellitus without complications Assessment and Plan: A1c on 04/28 5.9% Not on current medications (3) Hypertension: Status: Acute Code(s): I10 - Essential (primary) hypertension Assessment and Plan: not on current medications (4) Pancytopenia: Status: Acute Code(s): D61.818 - Other pancytopenia Assessment and Plan: seems to be improving after dc depakote CBC on 05/09/2024--> shows improvement in platelets 88 to 146, ANC also improved from 800 to 2300. normocytic anemia with Hgb 11, stable H&H. labs completed on 05/16 cbc with lower ANC 1500 (from 05/12 3200- this probably due to lowering lithium dose due to increase in BUN and Cr), Platelets trending up although slightly low 150, from 88 on 03/30/2023. Carbamazepine level 8.1 BUN 18, Cr 1.31 (improved from 05/12 BUN 20, Cr 1.46). Plan 03/23 keep same treatment 68 yo from a prison with chronic psychotic disorder, refusing medication , elevated bp and disorganized and agitated behavior requiring psychiatric hospitalization and treatment not competent to sign cv. 01/14 continue to follow - gave lambs warning today- and he says the failure analysis engineer will be a she- still refusing medications and quite psychotic takes alot of redirection to settle him poor adls- 01/15- Refuses meds, refuses hospitalist consult-second day File for Section Seven consideration on 01/17. Provide care as he will allow. 01/16: Depakote 250 mg bid Haldol, Lorazepam, Benadryl prn Section 7 to be filed 01/17 Message left for guardian. 01/17: Section Seven filed. . Court scheduled 01/26/24 Pt continues to refuse medicaitons. He is in need of full assist with ADL's and is incontinent. Pt transferred to [facility] this afternoon. 01/19/2024 Patient pending civil commitment loud agitated would not engage in any conversation with this marketing underwriter non informational healing agitated verbally aggressive. Every attempt being made to get a copy of the patient's Servin order unclear why this has been so problematic. Encourage food and fluids 01/19 continue same treatment 01/21/24 Patient labile agitated intrusive close labs ordered in order to per to protect the community patient wandering into patient's rooms intrusive impulsive laying on another person's bed. Often hostile agitated posturing at times we are still pending copy of reported Servin order encourage p.o. compliance 01/22/2024 Patient did require physical hold escort him out of a room that he jumped in other patient's room and on their bed while there were in it. There was no physical harm and the patient did leave the room his markedly impulsive with poor judgment remains on close observation has intermittently taken Haldol liquid pending civil commitment treatment plan there is a question of Servin order 01/22 The patient had been more agitated. We review his Servin order and we are increasing the Abilify up to 15 mg p.o. daily and adding Haldol p.r.n. since it is in his role years order. We needed to give him some p.r.n. at 14:00. 01/23 The patient is grossly psychotic disrobing and sexually disinhibited we are starting Haldol 2 mg p.o. t.i.d. to target psychosis as per court order treatment over objection order. 01/24 The patient remains very agitated and angry disruptive so we are increasing the Haldol from 2 mg to 5 mg p.o. t.i.d. with a backup IM if the patient refused as per court order. 01/25 we have increased the Haldol but still he is very psychotic and restless. Today he refused his blood work. He needed to be physically held twice. 01/26 the patient remains agitated at times but his last IM backup was yesterday. We are going to increase Abilify up to 20 mg daily to target mood lability and psychosis. 01/29/2024: Increase frequency of prn doses from tid to prn q 6mrs. Poor insight and unable to care for self 02/08 pt has not take any of mood stabilizer. continues to have poor sleep, intrusive and combative requiring IM medications, increase haldol 10mg po TID, back up IM. Will add ativan 1mg po TID, also back up IM. Labs show elevated CK 2300, BUN 20, Cr 1.80, unclear baseline Cr as he does have CKD. Discussed with hospitalist Dr. Gama, to give IV fluids and monitor labs tomorrow. LFTs also elevated suspect this is secondary to elevation in CK and should trend down as CK goes down. 02/09 still agitated, creatinine and CPK slightly high as yesterday, he removed his IV line there is no big difference with IV hydration. We are changing his community role years to have more options since it is not working Abilify and Haldol 02/10 3 chemical restraints yesterday. appears more combative, and somewhat more confused. Will decrease amount of benzo and antihistamine given to him as it seems to be backfiring. did discuss with ICU attending, Dr. Whiteside possibility of transferring there but they would like us to try IV depakote and exhaust all resources prior to considering transfer. Pt did take depakote springkle 1000mg with apple sauce with much encourage. 02/11 continue tx. 02/12 continue same treatment 01/14 continue with Abilify and other court order medications, we are Nam[place] and the court order. 02/14 Team report improvement today with pt having greater comfort and less agitation. [id number] the staff reported that the patient had been less violent in the last 24 hours 02/16 continue tx. will check depakote and ammonia on 02/17 in AM. 02/17 continue regime and plan of care 02/26/2024: Continue current regimen as per court order 03/03 continue tx. lactulose for now as we don't have new ammonia level, but will try to chack labs. 03/16- continue medications, held clonidine patch for today due to low BP. repeat labs. 03/17-continue plan of care 03/18- continue tx 03/19 continue same treatment 03/20 waiting for CBC, basic metabolic panel and ammonia level. Today he nearly choked with a grape. We are going to change his diet to chopped 03/21 patient had a fall and he was assessed. No injuries as per CT scan of head and pelvis. Again he refused again his blood work vital signs within normal limits. 03/22 keep same treatment 03/23 keep same treatment 03 24 24 Continue plan of care Depakote Tegretol Haldol carbamazepine 03/25/2024 Repeat swallowing study ordered he is already on ground diet consider lowering Haldol versus Cogentin generally try to avoid older man 03/26 lowered Haldol to 7.5 p.o. b.i.d. 03/27 start Abilify Maintena 400 IM, later on we stopped it since he was over-sedated. 03/28 monitor vital signs and we will order blood work for tomorrow morning. 03/29 keep same treatment. We are deferring Abilify Maintena since the patient is still sedated and looks slightly delirious. He has refused blood work 03/31 continue current tx. less combative but no improvement in mentation. grossly disorganized and non sensical. 04/01: court ordered meds- team reviewing and optimizing same. 04/02 continue tx. 04/03 keep same treatment, so far he had been more compliant with some of the medications in the last 3 days. 04/04 start Abilify Maintena 400 mg IM 04/05 keep Haldol as prescribed 04/06 keep same treatment 04/08/24 continue current plan, regime 04/09/24 continue plan, CAT pending 04/10 continue same treatment 04/11 keep same treatment 04/12 lowering Haldol to 5 mg p.o. b.i.d. since the patient is over-sedated. 04/13 keep same treatment 04/14 agitated today, jumping around, dive off bed, crawling on all 4's, naked; took meds; now sleeping -floridly psychotic and marketing underwriter thought best to let pt sleep 04/16 keep same treatment 04/17 Abilify Maintena 400 mg today and scheduled next for 30 days. 04/18 change Haldol to 5 mg p.o. t.i.d. with backup IM if he refuses p.o. 04/19 keep same treatment. 04/20 keep same treatment 04/21: verbally aggressive, restless. continue 1:1 and current Tx plan. 04/22: asleep, not easily rousable. restless and irritable last gwen, slept only 4 hours overnight. continue current mgmt. 04/23 add Cogentin 0.5 p.o. b.i.d. small improvement on his psychosis 04/24 continue with same treatment. 04/25 the patient fell again. Blood pressure had been okay even though that he is noncompliant with clonidine patch. We discussed the case with the medical team and they agreed that we can discontinue since he had been noncompliant of clonidine patch since March 09. Starting on propranolol 5 mg p.o. t.i.d. to target akathisia. 04/26 continue tx. 04/27 continue tx. 04/28 reviewing labs- neutropenia and thrombocytopenia worsening Plt 88, ANC 1000, consult to mohamud/onc as plan to continue depakote given that it has been very difficult to stabilize patient. Also, pt with hx of DM, not on any medications. Will obtain A1c. continues to present disorganized, delirium-like presentation. VS are stable, BP on lower side, no need for additional medication for BP. depakote level 100.1. Ammonia level wnl. Will decrease dose of depakote given pancytopenia. 04/29 will stop depakote (one as it may be contributing to pancytopenia, second because it has not shown significant improvement in mentation), continue carbamazepine, pt seen by oncology- appreciate recommendations- 04/30 continue tx. continue to monitor ANC, Plts. oncology/hem following. 05/01 speech and thought process more organized- which is improvement. sexualized remarks, unaware of unsteady gait and weakness. will repeat CBC- continue monitor pancytopenia. 05/02/24 On lithium monitor pancytopenia wbc 3.0 less confused 05/03/24 Increase lithium 300 bid monitor response watch for confusion 05/04 continue current tx, willc heck lithium level, renal function, TSH and repeat CBC on 06/10 at 7am. may need to increase haldol 05/05/24 Continue lithium and Tegretol encourage fluids check lithium TSH electrolytes continue to monitor CBC 05/06/2024 Patient seen chart reviewed case reviewed with nursing staff. Patient was somewhat more dysphoric today tried to engage in conversation had a difficult time. He slept about 4 hours did get Haldol the other day was offered p.o. Ativan p.r.n. encourage fluids with lithium avoid nonsteroidals no gross confusion or tremor 05/07 continue tx. pending labs for lithium level, TSH, cbc on 05/10. 05/08 continue tx. 05/09 pt appeared to have seizure, was given ativan 2mg IM, CMP does show elevation in BUN 23, and elevation on Cr 1.50, mild hyperkalemia 5.2. CBC shows improvement in platelets 88 to 146, ANC also improved from 800 to 2300. normocytic anemia with Hg 11, stable H&H. will decreased lithium 150mg po BID. Increase carbamazepine to 300mg po BID. Awaiting recommendation from neurology. 05/10 continue tx. monitor CMP- renal function. seen by neurology. 05/11 repeat cmp tomorrow, lowered lithium to 150mg po qhs. continue monitoring renal function. 05/12 Patient doing well, polite, organized in speech and behavior. Discussed his lab work and medication regimen which he understood. Mobile Heavy Equipment Mechanic inquired about patient's awareness of the past months which he has little memory of but says I was out of my mind... And is happy to be organized. Says he wishes there was a piano on the unit; asks marketing underwriter about his career inappropriate, organized way. -switch to Q 15 minute checks Reviewed labs and BUN/creatinine improved; alk-phos only mildly elevated Continue with current treatment plan 05/14/24- continue monitor renal function, will also check carbamazepine level, cbc, and cmp on 05/16/2024. 05/15 continue tx. labs scheduled for 05/16 05/16 labs completed on 05/16 cbc with lower ANC 1500 (from 05/12 3200- this probably due to lowering lithium dose due to increase in BUN and Cr), Platelets trending up although slightly low 150, from 88 on 03/30/2023. Carbamazepine level 8.1 BUN 18, Cr 1.31 (improved from 05/12 BUN 20, Cr 1.46). 05/17 continue tx. 05/18 continue tx. 05/19- much improved CTP! 05/20- CTP Reason for continued inpatient stay Substantial Risk for: rapid decompensation Time Spent With Patient Time: Total time managing care of this patient today ____ minutes.
[2024-05-20 20:00] VITALS: BP 122/59; PULSE 55; RESP 16; TEMP 36.8; O2SAT 100
[2024-05-20] MEDS: Lithium Carbonate 300 MG TABLET 150 MG PO (20:22)
[2024-05-20] MEDS: traZODone HCL 50 MG TABLET PO (20:22)
[2024-05-21 08:00] VITALS: BP 98/55; PULSE 78; RESP 16; TEMP 36.4; O2SAT 100
[2024-05-21] MEDS: HaloperidoL 5 MG TABLET PO ×3 (08:41→20:06)
[2024-05-21] MEDS: Ferrous Sulfate 324 MG TABLET.DR PO ×2 (08:41→20:07)
[2024-05-21] MEDS: Cholecalciferol (Vitamin D3) 25 MCG TABLET 50 MCG PO (08:41)
[2024-05-21] MEDS: carBAMazepine 200 MG TABLET 300 MG PO ×2 (08:41→20:06)
[2024-05-21] MEDS: Benztropine Mesylate 0.5 MG TABLET PO ×2 (08:41→20:05)
--- NOTE | 2024-05-21 08:55 | HO.PSYCHPN ---
Subjective Subjective Date of Service: 05/21/24 Reason For Visit: Schizoaffective disorder Subjective Notes: Section 7 Interim History: Pt slept through the night. He reports feeling well. He says he is sad but not able to express why. He reports he spoke with his sister and his brother and was happy about this. He denies SI/HI. He was encouraged to attend groups. No behavioral concerns. awaiting placement. BP was low this morning- 98/55, HR78, will monitor oral intake and renal function. Mental Status Exam Mental Status Exam Narrative: Appearance: fair hygiene, casual clothing, dressing self on his own, in NAD Behavior: cooperative Psychomotor: no agitation or retardation Speech: some problem with enunciation due to edentulous, regular rate/rhythm/volume, spontaneous. TP:linear TC: feeling okay but thinking about things that have happened to him Mood: good Affect: congruent SI: denies HI: denies VH/AH: no overt signs Delusions: no overt Insight/judgment: improving x 2. Memory/cog: alert, oriented to place, month, year, somewhat to situation but much improved. Diagnostics Vital Signs (24Hr): Vital Signs - 24 hr 05/20/24 20:00 Temperature 98.2 F Pulse Rate 55 Respiratory Rate 16 Blood Pressure 122/59 L Pulse Oximetry 100 Oxygen Delivery Method Room Air BMI result Body Mass Index 22.0 Labs 05/16/24 07:30 05/16/24 07:30 Imaging Radiology Impressions: ITS Impressions Chest X-Ray 03/20/24 08:33 IMPRESSION: Extremely limited exam. Only lateral views could be obtained. Suspect basilar airspace opacity, possibly pneumonia. Electronically signed by: Fortino Dumont MD 03/20/2024 10:10 AM EST RP Cervical Spine CT 03/21/24 11:18 IMPRESSION: 1. Allowing for suboptimal positioning, there is no CT evidence of acute cervical spine fracture or injury. 2. Degenerative changes with bulky ventral osteophytes spanning C4-C6, appearance in keeping with DISH. Electronically signed by: Fortino Dumont MD 03/21/2024 12:01 PM EST RP Head CT 03/21/24 11:18 IMPRESSION: 1. No acute intracranial abnormality. No acute fractures seen. 2. Stable chronic findings as discussed. Electronically signed by: Fortino Dumont MD 03/21/2024 11:54 AM EST RP Pelvis CT 03/21/24 11:18 IMPRESSION: 1. No acute bony abnormalities. No fractures. 2. Constipation with a large amount of stool in the rectum and sigmoid colon. 3. Mild thickening of the urinary bladder wall despite underdistention, nonspecific. Differential includes the detrusor hypertrophy, neurogenic bladder, or possibly cystitis. Electronically signed by: Fortino Dumont MD 03/21/2024 12:09 PM EST RP Head CT 03/28/24 09:37 IMPRESSION: No acute fracture, bony calvarium. No acute intracranial hemorrhage. Small vessel occlusive disease. Bifrontal bitemporal lobe atrophy. Electronically signed by: Juan Corrigan MD 03/28/2024 10:19 AM EST RP Head CT 04/25/24 12:22 IMPRESSION: No acute intracranial process seen. Electronically signed by: Ritchie Marte MD 04/25/2024 01:01 PM EST RP Medications Medications Current Medications Acetaminophen (Acetaminophen 325 Mg Tablet) 650 mg PO Q6H PRN PRN Reason: Headache/Pain Mild Scale (1-3) Last Admin: 01/17/24 23:53 Dose: 325 mg Al Hydroxide/Mg Hydroxide (Magnesium Hydrox/Alum Hydrox 30 Ml Oral.Susp) 30 ml PO Q6H PRN PRN Reason: Heartburn/Nausea Aripiprazole (Aripiprazole Er 400 Mg Suser.Syr) 400 mg IM Q30D [facility] Last Admin: 05/17/24 10:49 Dose: 400 mg Aspirin (Aspirin 81 Mg Tab.Chew) 81 mg PO DAILY [facility] Last Admin: 04/23/24 08:34 Dose: 81 mg Benztropine Mesylate (Benztropine Mesylate 0.5 Mg Tablet) 0.5 mg PO BID [facility] Last Admin: 05/21/24 08:41 Dose: 0.5 mg Carbamazepine (Carbamazepine 200 Mg Tablet) 300 mg PO BID [facility] Last Admin: 05/21/24 08:41 Dose: 300 mg Ferrous Sulfate (Ferrous Sulfate 324 Mg Tablet.) 324 mg PO BID [facility] Last Admin: 05/21/24 08:41 Dose: 324 mg Haloperidol (Haloperidol 5 Mg Tablet) 5 mg PO TID [facility] Last Admin: 05/21/24 08:41 Dose: 5 mg Haloperidol Lactate (Haloperidol Lactate Oral Conc 10 Mg/5 Ml Oral.Conc) 5 mg PO Q6H PRN PRN Reason: Psychosis or severe agitation Last Admin: 05/05/24 02:37 Dose: 5 mg Haloperidol Lactate (Haloperidol Lactate 5 Mg/Ml Vial) 5 mg IM TID PRN PRN Reason: Refusal of Court PO Haldol Last Admin: 05/06/24 00:36 Dose: 5 mg Preston Carbonate (Preston Carbonate 300 Mg Tablet) 150 mg PO BEDTIME KASIA Last Admin: 05/20/24 20:22 Dose: 150 mg Magnesium Hydroxide (Milk Of Magnesia 30 Ml Oral.Susp) 30 ml PO DAILY PRN PRN Reason: Constipation Nicotine Polacrilex (Nicotine Polacrilex 2 Mg Gum) 2 mg BUCCAL Q2H PRN PRN Reason: Nicotine Cravings Trazodone HCl (Trazodone Hcl 50 Mg Tablet) 50 mg PO BEDTIME PRN PRN Reason: Insomnia Last Admin: 05/20/24 20:22 Dose: 50 mg Vitamin D (Cholecalciferol (Vitamin D3) 25 Mcg Tablet) 50 mcg PO DAILY [facility] Last Admin: 05/21/24 08:41 Dose: 50 mcg Allergies Allergies Allergy/AdvReac Type Severity Reaction Status Date / Time lithium Allergy Unknown Verified 01/13/24 18:08 divalproex sodium AdvReac Severe encephalopa Verified 05/08/24 12:34 [From Depakote] thy Assessment & Plan Assessment & Plan (1) Schizoaffective disorder, bipolar type: Status: Acute Code(s): F25.0 - Schizoaffective disorder, bipolar type (2) Diabetes mellitus: Status: Acute Code(s): E11.9 - Type 2 diabetes mellitus without complications Assessment and Plan: A1c on 04/28 5.9% Not on current medications (3) Hypertension: Status: Acute Code(s): I10 - Essential (primary) hypertension Assessment and Plan: not on current medications (4) Pancytopenia: Status: Acute Code(s): D61.818 - Other pancytopenia Assessment and Plan: seems to be improving after dc depakote CBC on 05/09/2024--> shows improvement in platelets 88 to 146, ANC also improved from 800 to 2300. normocytic anemia with Hgb 11, stable H&H. labs completed on 05/16 cbc with lower ANC 1500 (from 05/12 3200- this probably due to lowering lithium dose due to increase in BUN and Cr), Platelets trending up although slightly low 150, from 88 on 03/30/2023. Carbamazepine level 8.1 BUN 18, Cr 1.31 (improved from 05/12 BUN 20, Cr 1.46). Plan 03/23 keep same treatment 68 yo from a assisted with chronic psychotic disorder, refusing medication , elevated bp and disorganized and agitated behavior requiring psychiatric hospitalization and treatment not competent to sign cv. 01/14 continue to follow - gave lambs warning today- and he says the process designer will be a she- still refusing medications and quite psychotic takes alot of redirection to settle him poor adls- 01/15- Refuses meds, refuses hospitalist consult-second day File for Section Seven consideration on 01/17. Provide care as he will allow. 01/16: Depakote 250 mg bid Haldol, Lorazepam, Benadryl prn Section 7 to be filed 01/17 Message left for guardian. 01/17: Section Seven filed. . Court scheduled 01/26/24 Pt continues to refuse medicaitons. He is in need of full assist with ADL's and is incontinent. Pt transferred to [facility] this afternoon. 01/19/2024 Patient pending civil commitment loud agitated would not engage in any conversation with this lyric writer non informational healing agitated verbally aggressive. Every attempt being made to get a copy of the patient's Servin order unclear why this has been so problematic. Encourage food and fluids 01/19 continue same treatment 01/21/24 Patient labile agitated intrusive close labs ordered in order to per to protect the community patient wandering into patient's rooms intrusive impulsive laying on another person's bed. Often hostile agitated posturing at times we are still pending copy of reported Servin order encourage p.o. compliance 01/22/2024 Patient did require physical hold escort him out of a room that he jumped in other patient's room and on their bed while there were in it. There was no physical harm and the patient did leave the room his markedly impulsive with poor judgment remains on close observation has intermittently taken Haldol liquid pending civil commitment treatment plan there is a question of Servin order 01/22 The patient had been more agitated. We review his Servin order and we are increasing the Abilify up to 15 mg p.o. daily and adding Haldol p.r.n. since it is in his role years order. We needed to give him some p.r.n. at 14:00. 01/23 The patient is grossly psychotic disrobing and sexually disinhibited we are starting Haldol 2 mg p.o. t.i.d. to target psychosis as per court order treatment over objection order. 01/24 The patient remains very agitated and angry disruptive so we are increasing the Haldol from 2 mg to 5 mg p.o. t.i.d. with a backup IM if the patient refused as per court order. 01/25 we have increased the Haldol but still he is very psychotic and restless. Today he refused his blood work. He needed to be physically held twice. 01/26 the patient remains agitated at times but his last IM backup was yesterday. We are going to increase Abilify up to 20 mg daily to target mood lability and psychosis. 01/29/2024: Increase frequency of prn doses from tid to prn q 6mrs. Poor insight and unable to care for self 02/08 pt has not take any of mood stabilizer. continues to have poor sleep, intrusive and combative requiring IM medications, increase haldol 10mg po TID, back up IM. Will add ativan 1mg po TID, also back up IM. Labs show elevated CK 2300, BUN 20, Cr 1.80, unclear baseline Cr as he does have CKD. Discussed with hospitalist Dr. Gama, to give IV fluids and monitor labs tomorrow. LFTs also elevated suspect this is secondary to elevation in CK and should trend down as CK goes down. 02/09 still agitated, creatinine and CPK slightly high as yesterday, he removed his IV line there is no big difference with IV hydration. We are changing his community role years to have more options since it is not working Abilify and Haldol 02/10 3 chemical restraints yesterday. appears more combative, and somewhat more confused. Will decrease amount of benzo and antihistamine given to him as it seems to be backfiring. did discuss with ICU attending, Dr. Whiteside possibility of transferring there but they would like us to try IV depakote and exhaust all resources prior to considering transfer. Pt did take depakote springkle 1000mg with apple sauce with much encourage. 02/11 continue tx. 02/12 continue same treatment 01/14 continue with Abilify and other court order medications, we are Nam[place] and the court order. 02/14 Team report improvement today with pt having greater comfort and less agitation. [id number] the staff reported that the patient had been less violent in the last 24 hours 02/16 continue tx. will check depakote and ammonia on 02/17 in AM. 02/17 continue regime and plan of care 02/26/2024: Continue current regimen as per court order 03/03 continue tx. lactulose for now as we don't have new ammonia level, but will try to chack labs. 03/16- continue medications, held clonidine patch for today due to low BP. repeat labs. 03/17-continue plan of care 03/18- continue tx 03/19 continue same treatment 03/20 waiting for CBC, basic metabolic panel and ammonia level. Today he nearly choked with a grape. We are going to change his diet to chopped 03/21 patient had a fall and he was assessed. No injuries as per CT scan of head and pelvis. Again he refused again his blood work vital signs within normal limits. 03/22 keep same treatment 03/23 keep same treatment 03 24 24 Continue plan of care Depakote Tegretol Haldol carbamazepine 03/25/2024 Repeat swallowing study ordered he is already on ground diet consider lowering Haldol versus Cogentin generally try to avoid older man 03/26 lowered Haldol to 7.5 p.o. b.i.d. 03/27 start Abilify Maintena 400 IM, later on we stopped it since he was over-sedated. 03/28 monitor vital signs and we will order blood work for tomorrow morning. 03/29 keep same treatment. We are deferring Abilify Maintena since the patient is still sedated and looks slightly delirious. He has refused blood work 03/31 continue current tx. less combative but no improvement in mentation. grossly disorganized and non sensical. 04/01: court ordered meds- team reviewing and optimizing same. 04/02 continue tx. 04/03 keep same treatment, so far he had been more compliant with some of the medications in the last 3 days. 04/04 start Abilify Maintena 400 mg IM 04/05 keep Haldol as prescribed 04/06 keep same treatment 04/08/24 continue current plan, regime 04/09/24 continue plan, CAT pending 04/10 continue same treatment 04/11 keep same treatment 04/12 lowering Haldol to 5 mg p.o. b.i.d. since the patient is over-sedated. 04/13 keep same treatment 04/14 agitated today, jumping around, dive off bed, crawling on all 4's, naked; took meds; now sleeping -floridly psychotic and lyric writer thought best to let pt sleep 04/16 keep same treatment 04/17 Abilify Maintena 400 mg today and scheduled next for 30 days. 04/18 change Haldol to 5 mg p.o. t.i.d. with backup IM if he refuses p.o. 04/19 keep same treatment. 04/20 keep same treatment 04/21: verbally aggressive, restless. continue 1:1 and current Tx plan. 04/22: asleep, not easily rousable. restless and irritable last gwen, slept only 4 hours overnight. continue current mgmt. 04/23 add Cogentin 0.5 p.o. b.i.d. small improvement on his psychosis 04/24 continue with same treatment. 04/25 the patient fell again. Blood pressure had been okay even though that he is noncompliant with clonidine patch. We discussed the case with the medical team and they agreed that we can discontinue since he had been noncompliant of clonidine patch since March 09. Starting on propranolol 5 mg p.o. t.i.d. to target akathisia. 04/26 continue tx. 04/27 continue tx. 04/28 reviewing labs- neutropenia and thrombocytopenia worsening Plt 88, ANC 1000, consult to mohamud/onc as plan to continue depakote given that it has been very difficult to stabilize patient. Also, pt with hx of DM, not on any medications. Will obtain A1c. continues to present disorganized, delirium-like presentation. VS are stable, BP on lower side, no need for additional medication for BP. depakote level 100.1. Ammonia level wnl. Will decrease dose of depakote given pancytopenia. 04/29 will stop depakote (one as it may be contributing to pancytopenia, second because it has not shown significant improvement in mentation), continue carbamazepine, pt seen by oncology- appreciate recommendations- 04/30 continue tx. continue to monitor ANC, Plts. oncology/hem following. 05/01 speech and thought process more organized- which is improvement. sexualized remarks, unaware of unsteady gait and weakness. will repeat CBC- continue monitor pancytopenia. 05/02/24 On lithium monitor pancytopenia wbc 3.0 less confused 05/03/24 Increase lithium 300 bid monitor response watch for confusion 05/04 continue current tx, willc heck lithium level, renal function, TSH and repeat CBC on 06/10 at 7am. may need to increase haldol 05/05/24 Continue lithium and Tegretol encourage fluids check lithium TSH electrolytes continue to monitor CBC 05/06/2024 Patient seen chart reviewed case reviewed with nursing staff. Patient was somewhat more dysphoric today tried to engage in conversation had a difficult time. He slept about 4 hours did get Haldol the other day was offered p.o. Ativan p.r.n. encourage fluids with lithium avoid nonsteroidals no gross confusion or tremor 05/07 continue tx. pending labs for lithium level, TSH, cbc on 05/10. 05/08 continue tx. 05/09 pt appeared to have seizure, was given ativan 2mg IM, CMP does show elevation in BUN 23, and elevation on Cr 1.50, mild hyperkalemia 5.2. CBC shows improvement in platelets 88 to 146, ANC also improved from 800 to 2300. normocytic anemia with Hg 11, stable H&H. will decreased lithium 150mg po BID. Increase carbamazepine to 300mg po BID. Awaiting recommendation from neurology. 05/10 continue tx. monitor CMP- renal function. seen by neurology. 05/11 repeat cmp tomorrow, lowered lithium to 150mg po qhs. continue monitoring renal function. 05/12 Patient doing well, polite, organized in speech and behavior. Discussed his lab work and medication regimen which he understood. Tobacco Curer inquired about patient's awareness of the past months which he has little memory of but says I was out of my mind... And is happy to be organized. Says he wishes there was a piano on the unit; asks lyric writer about his career inappropriate, organized way. -switch to Q 15 minute checks Reviewed labs and BUN/creatinine improved; alk-phos only mildly elevated Continue with current treatment plan 05/14/24- continue monitor renal function, will also check carbamazepine level, cbc, and cmp on 05/16/2024. 05/15 continue tx. labs scheduled for 05/16 05/16 labs completed on 05/16 cbc with lower ANC 1500 (from 05/12 3200- this probably due to lowering lithium dose due to increase in BUN and Cr), Platelets trending up although slightly low 150, from 88 on 03/30/2023. Carbamazepine level 8.1 BUN 18, Cr 1.31 (improved from 05/12 BUN 20, Cr 1.46). 05/17 continue tx. 05/18 continue tx. 05/19- much improved CTP! 05/20- CTP 05/21 continue tx. BP was low this morning- 98/55, HR78, will monitor oral intake and renal function. Reason for continued inpatient stay Substantial Risk for: inability to function Time Spent With Patient Time: Total time managing care of this patient today ____ minutes.
--- NOTE | 2024-05-21 13:56 | MHC.SL.SWA ---
Speech Pathologist Impression: Mild oral phase dysphagia d/t missing dentition. Risk of Aspiration Due to: Reduced Cognition (pt mentation has improved) Dysphasia Diet Status: Liquid Consistency and Strategies for Safe Swallow: Liquid Intake Recommendation: Thin Liquid Intake Strategies: Small Sips Solid Food Consistency: Dietary Recommendations: Chopped/Advanced (NDD3) Additional Modifications to Solid Foods: Medications as already implemented Oral Medication Intake: Crushed with Puree Please contact the pharmacy regarding appropriate crushable or liquid drug formulations that are available whenever modified delivery is recommended. Compensatory Strategies and Precautions to be Taken for Safe Swallow: Sitting Upright (90 deg) Small Bites and Sips Alternate Liquids/Solids Rate of Ingestion Change Oral Check Supervision While Eating and Drinking for Safe Swallow: Intermittent Supervision Foods to Avoid: Swallowing Recommended Treatments: Compens. Strategy Educat. Recommendation for Speech: Inpatient Speech Therapy Comment: Followup x1 Pt is tolerating purees, soft solids and thins without overt s/s of aspiration. Pt is edentulous but able to formulate bolus/manipulate soft solids by mashing with tongue/chewing with adequate efficiency. Anterior to posterior transit WNL, no delays in laryngeal elevation. Pharyngeal swallow WFL. Recc advance diet to next level, NDD3 with thins. RN consulted, MD texted with recommendations. Frequency/Duration: Date Range for Service Req: Timeline to reassess: Rn Radiology Clinican/Clinical Fellow: No Supervisory Statement: I have reviewed and agree with the student/clinical fellow's documentation: N/A Speech Language Pathologist: Irene Allen M.S., CCC-SOIL SORT WORKER
[2024-05-21 20:00] VITALS: BP 128/60; PULSE 57; RESP 15; TEMP 36; O2SAT 99
[2024-05-21] MEDS: Lithium Carbonate 300 MG TABLET 150 MG PO (20:05)
[2024-05-22 08:00] VITALS: BP 148/72; PULSE 74; RESP 16; TEMP 36.9; O2SAT 100
[2024-05-22] MEDS: carBAMazepine 200 MG TABLET 300 MG PO ×2 (08:01→20:44)
[2024-05-22] MEDS: HaloperidoL 5 MG TABLET PO ×3 (08:01→20:44)
[2024-05-22] MEDS: Benztropine Mesylate 0.5 MG TABLET PO ×2 (08:02→20:45)
[2024-05-22] MEDS: Cholecalciferol (Vitamin D3) 25 MCG TABLET 50 MCG PO (08:02)
[2024-05-22] MEDS: Ferrous Sulfate 324 MG TABLET.DR PO ×2 (08:03→20:45)
--- NOTE | 2024-05-22 09:21 | P.PNPSI_ITS ---
Subjective Subjective Date of Service: 05/22/24 Reason For Visit: Schizoaffective disorder Subjective Notes: Section 7 Interim History: Pt slept through the night. He reports he is feeling well. He asks this blurb writer what prompted me to be in healthcare. 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 He also reported difficulty getting an erection- did ask if he could talk with urologist. He then reported he wished he had a girlfriend. He denied SI/HI. No overt paranoid or psychosis noted. Review of Systems Review of Systems No overt seizure-like symptoms Yes Unobtainable due to mental status Mental Status Exam Mental Status Exam Narrative: Appearance: fair hygiene, casual clothing, dressing self on his own, in NAD Behavior: cooperative Psychomotor: no agitation or retardation Speech: some problem with enunciation due to edentulous, regular rate/rhythm/volume, spontaneous. TP:linear TC: feeling okay but thinking about things that have happened to him Mood: good Affect: congruent SI: denies HI: denies VH/AH: no overt signs Delusions: no overt Insight/judgment: improving x 2. Memory/cog: alert, oriented to place, month, year, somewhat to situation but much improved. Diagnostics Vital Signs (24Hr): Vital Signs - 24 hr 05/21/24 20:00 05/22/24 08:00 Temperature 96.8 F 98.5 F Pulse Rate 57 74 Respiratory Rate 15 16 Blood Pressure 128/60 148/72 H Pulse Oximetry 99 100 Oxygen Delivery Method Room Air Room Air BMI result Body Mass Index 22.0 Labs 05/16/24 07:30 05/16/24 07:30 Imaging Radiology Impressions: ITS Impressions Chest X-Ray 03/20/24 08:33 IMPRESSION: Extremely limited exam. Only lateral views could be obtained. Suspect basilar airspace opacity, possibly pneumonia. Electronically signed by: Fortino Dumont MD 03/20/2024 10:10 AM [facility] Cervical Spine CT 03/21/24 11:18 IMPRESSION: 1. Allowing for suboptimal positioning, there is no CT evidence of acute cervical spine fracture or injury. 2. Degenerative changes with bulky ventral osteophytes spanning C4-C6, appearance in keeping with DISH. Electronically signed by: Fortino Dumont MD 03/21/2024 12:01 PM EST RP Head CT 03/21/24 11:18 IMPRESSION: 1. No acute intracranial abnormality. No acute fractures seen. 2. Stable chronic findings as discussed. Electronically signed by: Fortino Dumont MD 03/21/2024 11:54 AM EST RP Pelvis CT 03/21/24 11:18 IMPRESSION: 1. No acute bony abnormalities. No fractures. 2. Constipation with a large amount of stool in the rectum and sigmoid colon. 3. Mild thickening of the urinary bladder wall despite underdistention, nonspecific. Differential includes the detrusor hypertrophy, neurogenic bladder, or possibly cystitis. Electronically signed by: Fortino Dumont MD 03/21/2024 12:09 PM EST RP Head CT 03/28/24 09:37 IMPRESSION: No acute fracture, bony calvarium. No acute intracranial hemorrhage. Small vessel occlusive disease. Bifrontal bitemporal lobe atrophy. Electronically signed by: Juan Corrigan MD 03/28/2024 10:19 AM EST RP Head CT 04/25/24 12:22 IMPRESSION: No acute intracranial process seen. Electronically signed by: Ritchie Marte MD 04/25/2024 01:01 PM EST RP Medications Medications Current Medications Acetaminophen (Acetaminophen 325 Mg Tablet) 650 mg PO Q6H PRN PRN Reason: Headache/Pain Mild Scale (1-3) Last Admin: 01/17/24 23:53 Dose: 325 mg Al Hydroxide/Mg Hydroxide (Magnesium Hydrox/Alum Hydrox 30 Ml Oral.Susp) 30 ml PO Q6H PRN PRN Reason: Heartburn/Nausea Aripiprazole (Aripiprazole Er 400 Mg Suser.Syr) 400 mg IM Q30D [facility] Last Admin: 05/17/24 10:49 Dose: 400 mg Aspirin (Aspirin 81 Mg Tab.Chew) 81 mg PO DAILY [facility] Last Admin: 04/23/24 08:34 Dose: 81 mg Benztropine Mesylate (Benztropine Mesylate 0.5 Mg Tablet) 0.5 mg PO BID [facility] Last Admin: 05/22/24 08:02 Dose: 0.5 mg Carbamazepine (Carbamazepine 200 Mg Tablet) 300 mg PO BID [facility] Last Admin: 05/22/24 08:01 Dose: 300 mg Ferrous Sulfate (Ferrous Sulfate 324 Mg Tablet.Dr) 324 mg PO BID [facility] Last Admin: 05/22/24 08:03 Dose: 324 mg Haloperidol (Haloperidol 5 Mg Tablet) 5 mg PO TID [facility] Last Admin: 05/22/24 08:01 Dose: 5 mg Haloperidol Lactate (Haloperidol Lactate Oral Conc 10 Mg/5 Ml Oral.Conc) 5 mg PO Q6H PRN PRN Reason: Psychosis or severe agitation Last Admin: 05/05/24 02:37 Dose: 5 mg Haloperidol Lactate (Haloperidol Lactate 5 Mg/Ml Vial) 5 mg IM TID PRN PRN Reason: Refusal of Court PO Haldol Last Admin: 05/06/24 00:36 Dose: 5 mg [place] Carbonate ([place] Carbonate 300 Mg Tablet) 150 mg PO BEDTIME [facility] Last Admin: 05/21/24 20:05 Dose: 150 mg Magnesium Hydroxide (Milk Of Magnesia 30 Ml Oral.Susp) 30 ml PO DAILY PRN PRN Reason: Constipation Nicotine Polacrilex (Nicotine Polacrilex 2 Mg Gum) 2 mg BUCCAL Q2H PRN PRN Reason: Nicotine Cravings Trazodone HCl (Trazodone Hcl 50 Mg Tablet) 50 mg PO BEDTIME PRN PRN Reason: Insomnia Last Admin: 05/20/24 20:22 Dose: 50 mg Vitamin D (Cholecalciferol (Vitamin D3) 25 Mcg Tablet) 50 mcg PO DAILY [facility] Last Admin: 05/22/24 08:02 Dose: 50 mcg Allergies Allergies Allergy/AdvReac Type Severity Reaction Status Date / Time lithium Allergy Unknown Verified 01/13/24 18:08 divalproex sodium AdvReac Severe encephalopa Verified 05/08/24 12:34 [From Depakote] thy Assessment & Plan Assessment & Plan (1) Schizoaffective disorder, bipolar type: Status: Acute Code(s): F25.0 - Schizoaffective disorder, bipolar type (2) Diabetes mellitus: Status: Acute Code(s): E11.9 - Type 2 diabetes mellitus without complications Assessment and Plan: A1c on 04/28 5.9% Not on current medications (3) Hypertension: Status: Acute Code(s): I10 - Essential (primary) hypertension Assessment and Plan: not on current medications (4) Pancytopenia: Status: Acute Code(s): D61.818 - Other pancytopenia Assessment and Plan: seems to be improving after dc depakote CBC on 05/09/2024--> shows improvement in platelets 88 to 146, ANC also improved from 800 to 2300. normocytic anemia with Hgb 11, stable H&H. labs completed on 05/16 cbc with lower ANC 1500 (from 05/12 3200- this probably due to lowering lithium dose due to increase in BUN and Cr), Platelets trending up although slightly low 150, from 88 on 03/30/2023. Carbamazepine level 8.1 BUN 18, Cr 1.31 (improved from 05/12 BUN 20, Cr 1.46). (5) Chronic kidney disease (CKD): Status: Acute Code(s): N18.9 - Chronic kidney disease, unspecified Assessment and Plan: on low dose of lithium, closely monitoring renal function. Plan 03/23 keep same treatment 68 yo from a retirement with chronic psychotic disorder, refusing medication , elevated bp and disorganized and agitated behavior requiring psychiatric hospitalization and treatment not competent to sign cv. 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 Provide care as he will allow. 01/16: Depakote 250 mg bid Haldol, Lorazepam, Benadryl prn Section 7 to be filed 01/17 Message left for guardian. 01/17: Section Seven filed. . Court scheduled 01/26/24 Pt continues to refuse medicaitons. He is in need of full assist with ADL's and is incontinent. Pt transferred to [facility] this afternoon. 01/19/2024 Patient pending civil commitment loud agitated would not engage in any conversation with this blurb writer non informational healing agitated verbally aggressive. Every attempt being made to get a copy of the patient's Servin order unclear why this has been so problematic. Encourage food and fluids 01/19 continue same treatment 01/21/24 Patient labile agitated intrusive close labs ordered in order to per to protect the community patient wandering into patient's rooms intrusive impulsive laying on another person's bed. Often hostile agitated posturing at times we are still pending copy of reported Servin order encourage p.o. compliance 01/22/2024 Patient did require physical hold escort him out of a room that he jumped in other patient's room and on their bed while there were in it. There was no physical harm and the patient did leave the room his markedly impulsive with poor judgment remains on close observation has intermittently taken Haldol liquid pending civil commitment treatment plan there is a question of Servin order 01/22 The patient had been more agitated. We review his Servin order and we are increasing the Abilify up to 15 mg p.o. daily and adding Haldol p.r.n. since it is in his role years order. We needed to give him some p.r.n. at 14:00. 01/23 The patient is grossly psychotic disrobing and sexually disinhibited we are starting Haldol 2 mg p.o. t.i.d. to target psychosis as per court order treatment over objection order. 01/24 The patient remains very agitated and angry disruptive so we are increasing the Haldol from 2 mg to 5 mg p.o. t.i.d. with a backup IM if the patient refused as per court order. 01/25 we have increased the Haldol but still he is very psychotic and restless. Today he refused his blood work. He needed to be physically held twice. 01/26 the patient remains agitated at times but his last IM backup was yesterday. We are going to increase Abilify up to 20 mg daily to target mood lability and psychosis. 01/29/2024: Increase frequency of prn doses from tid to prn q 6mrs. Poor insight and unable to care for self 02/08 pt has not take any of mood stabilizer. continues to have poor sleep, intrusive and combative requiring IM medications, increase haldol 10mg po TID, back up IM. Will add ativan 1mg po TID, also back up IM. Labs show elevated CK 2300, BUN 20, Cr 1.80, unclear baseline Cr as he does have CKD. Discussed with hospitalist Dr. Gama, to give IV fluids and monitor labs tomorrow. LFTs also elevated suspect this is secondary to elevation in CK and should trend down as CK goes down. 02/09 still agitated, creatinine and CPK slightly high as yesterday, he removed his IV line there is no big difference with IV hydration. We are changing his community role years to have more options since it is not working Abilify and Haldol 02/10 3 chemical restraints yesterday. appears more combative, and somewhat more confused. Will decrease amount of benzo and antihistamine given to him as it seems to be backfiring. did discuss with ICU attending, Dr. Whiteside possibility of transferring there but they would like us to try IV depakote and exhaust all resources prior to considering transfer. Pt did take depakote springkle 1000mg with apple sauce with much encourage. 02/11 continue tx. 02/12 continue same treatment 01/14 continue with Abilify and other court order medications, we are Nam[place] and the court order. 02/14 Team report improvement today with pt having greater comfort and less agitation. [id number] the staff reported that the patient had been less violent in the last 24 hours 02/16 continue tx. will check depakote and ammonia on 02/17 in AM. 02/17 continue regime and plan of care 02/26/2024: Continue current regimen as per court order 03/03 continue tx. lactulose for now as we don't have new ammonia level, but will try to chack labs. 03/16- continue medications, held clonidine patch for today due to low BP. repeat labs. 03/17-continue plan of care 03/18- continue tx 03/19 continue same treatment 03/20 waiting for CBC, basic metabolic panel and ammonia level. Today he nearly choked with a grape. We are going to change his diet to chopped 03/21 patient had a fall and he was assessed. No injuries as per CT scan of head and pelvis. Again he refused again his blood work vital signs within normal limits. 03/22 keep same treatment 03/23 keep same treatment 03 24 24 Continue plan of care Depakote Tegretol Haldol carbamazepine 03/25/2024 Repeat swallowing study ordered he is already on ground diet consider lowering Haldol versus Cogentin generally try to avoid older man 03/26 lowered Haldol to 7.5 p.o. b.i.d. 03/27 start Abilify Maintena 400 IM, later on we stopped it since he was over- sedated. 03/28 monitor vital signs and we will order blood work for tomorrow morning. 03/29 keep same treatment. We are deferring Abilify Maintena since the patient is still sedated and looks slightly delirious. He has refused blood work 03/31 continue current tx. less combative but no improvement in mentation. grossly disorganized and non sensical. 04/01: court ordered meds- team reviewing and optimizing same. 04/02 continue tx. 04/03 keep same treatment, so far he had been more compliant with some of the medications in the last 3 days. 04/04 start Abilify Maintena 400 mg IM 04/05 keep Haldol as prescribed 04/06 keep same treatment 04/08/24 continue current plan, regime 04/09/24 continue plan, CAT pending 04/10 continue same treatment 04/11 keep same treatment 04/12 lowering Haldol to 5 mg p.o. b.i.d. since the patient is over-sedated. 04/13 keep same treatment 04/14 agitated today, jumping around, dive off bed, crawling on all 4's, naked; took meds; now sleeping -floridly psychotic and blurb writer thought best to let pt sleep 04/16 keep same treatment 04/17 Abilify Maintena 400 mg today and scheduled next for 30 days. 04/18 change Haldol to 5 mg p.o. t.i.d. with backup IM if he refuses p.o. 04/19 keep same treatment. 04/20 keep same treatment 04/21: verbally aggressive, restless. continue 1:1 and current Tx plan. 04/22: asleep, not easily rousable. restless and irritable last gwen, slept only 4 hours overnight. continue current mgmt. 04/23 add Cogentin 0.5 p.o. b.i.d. small improvement on his psychosis 04/24 continue with same treatment. 04/25 the patient fell again. Blood pressure had been okay even though that he is noncompliant with clonidine patch. We discussed the case with the medical team and they agreed that we can discontinue since he had been noncompliant of clonidine patch since March 09. Starting on propranolol 5 mg p.o. t.i.d. to target akathisia. 04/26 continue tx. 04/27 continue tx. 04/28 reviewing labs- neutropenia and thrombocytopenia worsening Plt 88, ANC 1000, consult to mohamud/onc as plan to continue depakote given that it has been very difficult to stabilize patient. Also, pt with hx of DM, not on any medications. Will obtain A1c. continues to present disorganized, delirium-like presentation. VS are stable, BP on lower side, no need for additional medication for BP. depakote level 100.1. Ammonia level wnl. Will decrease dose of depakote given pancytopenia. 04/29 will stop depakote (one as it may be contributing to pancytopenia, second because it has not shown significant improvement in mentation), continue carbamazepine, pt seen by oncology- appreciate recommendations- 04/30 continue tx. continue to monitor ANC, Plts. oncology/hem following. 05/01 speech and thought process more organized- which is improvement. sexualized remarks, unaware of unsteady gait and weakness. will repeat CBC- continue monitor pancytopenia. 05/02/24 On lithium monitor pancytopenia wbc 3.0 less confused 05/03/24 Increase lithium 300 bid monitor response watch for confusion 05/04 continue current tx, willc heck lithium level, renal function, TSH and repeat CBC on 06/10 at 7am. may need to increase haldol 05/05/24 Continue lithium and Tegretol encourage fluids check lithium TSH electrolytes continue to monitor CBC 05/06/2024 Patient seen chart reviewed case reviewed with nursing staff. Patient was somewhat more dysphoric today tried to engage in conversation had a difficult time. He slept about 4 hours did get Haldol the other day was offered p.o. Ativan p.r.n. encourage fluids with lithium avoid nonsteroidals no gross confusion or tremor 05/07 continue tx. pending labs for lithium level, TSH, cbc on 05/10. 05/08 continue tx. 05/09 pt appeared to have seizure, was given ativan 2mg IM, CMP does show elevation in BUN 23, and elevation on Cr 1.50, mild hyperkalemia 5.2. CBC shows improvement in platelets 88 to 146, ANC also improved from 800 to 2300. normocytic anemia with Hg 11, stable H&H. will decreased lithium 150mg po BID. Increase carbamazepine to 300mg po BID. Awaiting recommendation from neurology. 05/10 continue tx. monitor CMP- renal function. seen by neurology. 05/11 repeat cmp tomorrow, lowered lithium to 150mg po qhs. continue monitoring renal function. 05/12 Patient doing well, polite, organized in speech and behavior. Discussed his lab work and medication regimen which he understood. Chief Internal Auditor inquired about patient's awareness of the past months which he has little memory of but says I was out of my mind... And is happy to be organized. Says he wishes there was a piano on the unit; asks blurb writer about his career inappropriate, organized way. -switch to Q 15 minute checks Reviewed labs and BUN/creatinine improved; alk-phos only mildly elevated Continue with current treatment plan 05/14/24- continue monitor renal function, will also check carbamazepine level, cbc, and cmp on 05/16/2024. 05/15 continue tx. labs scheduled for 05/16 05/16 labs completed on 05/16 cbc with lower ANC 1500 (from 05/12 3200- this probably due to lowering lithium dose due to increase in BUN and Cr), Platelets trending up although slightly low 150, from 88 on 03/30/2023. Carbamazepine level 8.1 BUN 18, Cr 1.31 (improved from 05/12 BUN 20, Cr 1.46). 05/17 continue tx. 05/18 continue tx. 05/19- much improved CTP! 05/20- CTP 05/21 continue tx. BP was low this morning- 98/55, HR78, will monitor oral intake and renal function. 05/22 continue tx. will check renal function 05/23 Reason for continued inpatient stay Substantial Risk for: inability to function Time Spent With Patient Time: Total time managing care of this patient today ____ minutes.
[2024-05-22 20:00] VITALS: BP 157/71; PULSE 77; RESP 18; TEMP 36.7; O2SAT 96
[2024-05-22] MEDS: Lithium Carbonate 300 MG TABLET 150 MG PO (20:45)
[2024-05-23 09:13] VITALS: BP 118/58; PULSE 73; RESP 16; TEMP 36.9; O2SAT 100
[2024-05-23] MEDS: Cholecalciferol (Vitamin D3) 25 MCG TABLET 50 MCG PO (09:14)
[2024-05-23] MEDS: Benztropine Mesylate 0.5 MG TABLET PO ×2 (09:15→20:34)
[2024-05-23] MEDS: HaloperidoL 5 MG TABLET PO ×3 (09:15→20:34)
[2024-05-23] MEDS: Ferrous Sulfate 324 MG TABLET.DR PO ×2 (09:15→20:34)
[2024-05-23] MEDS: carBAMazepine 200 MG TABLET 300 MG PO ×2 (09:15→20:35)
[2024-05-23 09:41] VITALS: BMI 22.3
--- NOTE | 2024-05-23 13:10 | HO.PSYCHPN ---
Subjective Subjective Date of Service: 05/23/24 Reason For Visit: Schizoaffective disorder Subjective Notes: Section 7 Interim History: Pt slept through the night. He reports doing well. he declined labs, explained to this parts data writer he has had too many in past few weeks. Given that it is not critical will postpone for next week. He is eating and drinking well. He has been visible, not overly social but appropriate when approach. No SI/HI. no overt psychosis or delusions. Review of Systems Review of Systems No overt seizure-like symptoms Yes Unobtainable due to mental status Mental Status Exam Mental Status Exam Narrative: Appearance: fair hygiene, casual clothing, dressing self on his own, in NAD Behavior: cooperative Psychomotor: no agitation or retardation Speech: some problem with enunciation due to edentulous, regular rate/rhythm/volume, spontaneous. TP:linear TC: feeling okay but thinking about things that have happened to him Mood: good Affect: congruent SI: denies HI: denies VH/AH: no overt signs Delusions: no overt Insight/judgment: improving x 2. Memory/cog: alert, oriented to place, month, year, somewhat to situation but much improved. Diagnostics Vital Signs (24Hr): Vital Signs - 24 hr 05/22/24 20:00 05/23/24 09:13 Temperature 98.1 F 98.4 F Pulse Rate 77 73 Respiratory Rate 18 16 Blood Pressure 157/71 H 118/58 L Pulse Oximetry 96 100 Oxygen Delivery Method Room Air Room Air BMI result Body Mass Index 22.0 Labs 05/16/24 07:30 05/16/24 07:30 Imaging Radiology Impressions: ITS Impressions Chest X-Ray 03/20/24 08:33 IMPRESSION: Extremely limited exam. Only lateral views could be obtained. Suspect basilar airspace opacity, possibly pneumonia. Electronically signed by: Fortino Dumont MD 03/20/2024 10:10 AM EST RP Cervical Spine CT 03/21/24 11:18 IMPRESSION: 1. Allowing for suboptimal positioning, there is no CT evidence of acute cervical spine fracture or injury. 2. Degenerative changes with bulky ventral osteophytes spanning C4-C6, appearance in keeping with DISH. Electronically signed by: Fortino Dumont MD 03/21/2024 12:01 PM EST RP Head CT 03/21/24 11:18 IMPRESSION: 1. No acute intracranial abnormality. No acute fractures seen. 2. Stable chronic findings as discussed. Electronically signed by: Fortino Dumont MD 03/21/2024 11:54 AM EST RP Pelvis CT 03/21/24 11:18 IMPRESSION: 1. No acute bony abnormalities. No fractures. 2. Constipation with a large amount of stool in the rectum and sigmoid colon. 3. Mild thickening of the urinary bladder wall despite underdistention, nonspecific. Differential includes the detrusor hypertrophy, neurogenic bladder, or possibly cystitis. Electronically signed by: Fortino Dumont MD 03/21/2024 12:09 PM EST RP Head CT 03/28/24 09:37 IMPRESSION: No acute fracture, bony calvarium. No acute intracranial hemorrhage. Small vessel occlusive disease. Bifrontal bitemporal lobe atrophy. Electronically signed by: Juan Corrigan MD 03/28/2024 10:19 AM EST RP Head CT 04/25/24 12:22 IMPRESSION: No acute intracranial process seen. Electronically signed by: Ritchie Marte MD 04/25/2024 01:01 PM EST RP Medications Medications Current Medications Acetaminophen (Acetaminophen 325 Mg Tablet) 650 mg PO Q6H PRN PRN Reason: pain (1-10) Al Hydroxide/Mg Hydroxide (Magnesium Hydrox/Alum Hydrox 30 Ml Oral.Susp) 30 ml PO Q6H PRN PRN Reason: Heartburn/Nausea Aripiprazole (Aripiprazole Er 400 Mg Suser.Syr) 400 mg IM Q30D [facility] Last Admin: 05/17/24 10:49 Dose: 400 mg Aspirin (Aspirin 81 Mg Tab.Chew) 81 mg PO DAILY [facility] Last Admin: 04/23/24 08:34 Dose: 81 mg Benztropine Mesylate (Benztropine Mesylate 0.5 Mg Tablet) 0.5 mg PO BID [facility] Last Admin: 05/23/24 09:15 Dose: 0.5 mg Carbamazepine (Carbamazepine 200 Mg Tablet) 300 mg PO BID [facility] Last Admin: 05/23/24 09:15 Dose: 300 mg Ferrous Sulfate (Ferrous Sulfate 324 Mg Tablet.) 324 mg PO BID [facility] Last Admin: 05/23/24 09:15 Dose: 324 mg Haloperidol (Haloperidol 5 Mg Tablet) 5 mg PO TID [facility] Last Admin: 05/23/24 09:15 Dose: 5 mg Haloperidol Lactate (Haloperidol Lactate Oral Conc 10 Mg/5 Ml Oral.Conc) 5 mg PO Q6H PRN PRN Reason: Psychosis or severe agitation Last Admin: 05/05/24 02:37 Dose: 5 mg Haloperidol Lactate (Haloperidol Lactate 5 Mg/Ml Vial) 5 mg IM TID PRN PRN Reason: Refusal of Court PO Haldol Last Admin: 05/06/24 00:36 Dose: 5 mg Robeline Carbonate (Robeline Carbonate 300 Mg Tablet) 150 mg PO BEDTIME [facility] Last Admin: 05/22/24 20:45 Dose: 150 mg Magnesium Hydroxide (Milk Of Magnesia 30 Ml Oral.Susp) 30 ml PO DAILY PRN PRN Reason: Constipation Nicotine Polacrilex (Nicotine Polacrilex 2 Mg Gum) 2 mg BUCCAL Q2H PRN PRN Reason: Nicotine Cravings Trazodone HCl (Trazodone Hcl 50 Mg Tablet) 50 mg PO BEDTIME PRN PRN Reason: Insomnia Last Admin: 05/20/24 20:22 Dose: 50 mg Vitamin D (Cholecalciferol (Vitamin D3) 25 Mcg Tablet) 50 mcg PO DAILY [facility] Last Admin: 05/23/24 09:14 Dose: 50 mcg Allergies Allergies Allergy/AdvReac Type Severity Reaction Status Date / Time lithium Allergy Unknown Verified 01/13/24 18:08 divalproex sodium AdvReac Severe encephalopa Verified 05/08/24 12:34 [From Depakote] thy Assessment & Plan Assessment & Plan (1) Schizoaffective disorder, bipolar type: Status: Acute Code(s): F25.0 - Schizoaffective disorder, bipolar type (2) Diabetes mellitus: Status: Acute Code(s): E11.9 - Type 2 diabetes mellitus without complications Assessment and Plan: A1c on 04/28 5.9% Not on current medications (3) Hypertension: Status: Acute Code(s): I10 - Essential (primary) hypertension Assessment and Plan: not on current medications (4) Pancytopenia: Status: Acute Code(s): D61.818 - Other pancytopenia Assessment and Plan: seems to be improving after dc depakote CBC on 05/09/2024--> shows improvement in platelets 88 to 146, ANC also improved from 800 to 2300. normocytic anemia with Hgb 11, stable H&H. labs completed on 05/16 cbc with lower ANC 1500 (from 05/12 3200- this probably due to lowering lithium dose due to increase in BUN and Cr), Platelets trending up although slightly low 150, from 88 on 03/30/2023. Carbamazepine level 8.1 BUN 18, Cr 1.31 (improved from 05/12 BUN 20, Cr 1.46). (5) Chronic kidney disease (CKD): Status: Acute Code(s): N18.9 - Chronic kidney disease, unspecified Assessment and Plan: on low dose of lithium, closely monitoring renal function. Plan 03/23 keep same treatment 68 yo from a care home with chronic psychotic disorder, refusing medication , elevated bp and disorganized and agitated behavior requiring psychiatric hospitalization and treatment not competent to sign cv. 01/14 continue to follow - gave lambs warning today- and he says the appellate court judge will be a she- still refusing medications and quite psychotic takes alot of redirection to settle him poor adls- 01/15- Refuses meds, refuses hospitalist consult-second day File for Section Seven consideration on 01/17. Provide care as he will allow. 01/16: Depakote 250 mg bid Haldol, Lorazepam, Benadryl prn Section 7 to be filed 01/17 Message left for guardian. 01/17: Section Seven filed. . Court scheduled 01/26/24 Pt continues to refuse medicaitons. He is in need of full assist with ADL's and is incontinent. Pt transferred to [facility] this afternoon. 01/19/2024 Patient pending civil commitment loud agitated would not engage in any conversation with this parts data writer non informational healing agitated verbally aggressive. Every attempt being made to get a copy of the patient's Servin order unclear why this has been so problematic. Encourage food and fluids 01/19 continue same treatment 01/21/24 Patient labile agitated intrusive close labs ordered in order to per to protect the community patient wandering into patient's rooms intrusive impulsive laying on another person's bed. Often hostile agitated posturing at times we are still pending copy of reported Servin order encourage p.o. compliance 01/22/2024 Patient did require physical hold escort him out of a room that he jumped in other patient's room and on their bed while there were in it. There was no physical harm and the patient did leave the room his markedly impulsive with poor judgment remains on close observation has intermittently taken Haldol liquid pending civil commitment treatment plan there is a question of Servin order 01/22 The patient had been more agitated. We review his Servin order and we are increasing the Abilify up to 15 mg p.o. daily and adding Haldol p.r.n. since it is in his role years order. We needed to give him some p.r.n. at 14:00. 01/23 The patient is grossly psychotic disrobing and sexually disinhibited we are starting Haldol 2 mg p.o. t.i.d. to target psychosis as per court order treatment over objection order. 01/24 The patient remains very agitated and angry disruptive so we are increasing the Haldol from 2 mg to 5 mg p.o. t.i.d. with a backup IM if the patient refused as per court order. 01/25 we have increased the Haldol but still he is very psychotic and restless. Today he refused his blood work. He needed to be physically held twice. 01/26 the patient remains agitated at times but his last IM backup was yesterday. We are going to increase Abilify up to 20 mg daily to target mood lability and psychosis. 01/29/2024: Increase frequency of prn doses from tid to prn q 6mrs. Poor insight and unable to care for self 02/08 pt has not take any of mood stabilizer. continues to have poor sleep, intrusive and combative requiring IM medications, increase haldol 10mg po TID, back up IM. Will add ativan 1mg po TID, also back up IM. Labs show elevated CK 2300, BUN 20, Cr 1.80, unclear baseline Cr as he does have CKD. Discussed with hospitalist Dr. Gama, to give IV fluids and monitor labs tomorrow. LFTs also elevated suspect this is secondary to elevation in CK and should trend down as CK goes down. 02/09 still agitated, creatinine and CPK slightly high as yesterday, he removed his IV line there is no big difference with IV hydration. We are changing his community role years to have more options since it is not working Abilify and Haldol 02/10 3 chemical restraints yesterday. appears more combative, and somewhat more confused. Will decrease amount of benzo and antihistamine given to him as it seems to be backfiring. did discuss with ICU attending, Dr. Whiteside possibility of transferring there but they would like us to try IV depakote and exhaust all resources prior to considering transfer. Pt did take depakote springkle 1000mg with apple sauce with much encourage. 02/11 continue tx. 02/12 continue same treatment 01/14 continue with Abilify and other court order medications, we are Nam[place] and the court order. 02/14 Team report improvement today with pt having greater comfort and less agitation. [id number] the staff reported that the patient had been less violent in the last 24 hours 02/16 continue tx. will check depakote and ammonia on 02/17 in AM. 02/17 continue regime and plan of care 02/26/2024: Continue current regimen as per court order 03/03 continue tx. lactulose for now as we don't have new ammonia level, but will try to chack labs. 03/16- continue medications, held clonidine patch for today due to low BP. repeat labs. 03/17-continue plan of care 03/18- continue tx 03/19 continue same treatment 03/20 waiting for CBC, basic metabolic panel and ammonia level. Today he nearly choked with a grape. We are going to change his diet to chopped 03/21 patient had a fall and he was assessed. No injuries as per CT scan of head and pelvis. Again he refused again his blood work vital signs within normal limits. 03/22 keep same treatment 03/23 keep same treatment 03 24 24 Continue plan of care Depakote Tegretol Haldol carbamazepine 03/25/2024 Repeat swallowing study ordered he is already on ground diet consider lowering Haldol versus Cogentin generally try to avoid older man 03/26 lowered Haldol to 7.5 p.o. b.i.d. 03/27 start Abilify Maintena 400 IM, later on we stopped it since he was over-sedated. 03/28 monitor vital signs and we will order blood work for tomorrow morning. 03/29 keep same treatment. We are deferring Abilify Maintena since the patient is still sedated and looks slightly delirious. He has refused blood work 03/31 continue current tx. less combative but no improvement in mentation. grossly disorganized and non sensical. 04/01: court ordered meds- team reviewing and optimizing same. 04/02 continue tx. 04/03 keep same treatment, so far he had been more compliant with some of the medications in the last 3 days. 04/04 start Abilify Maintena 400 mg IM 04/05 keep Haldol as prescribed 04/06 keep same treatment 04/08/24 continue current plan, regime 04/09/24 continue plan, CAT pending 04/10 continue same treatment 04/11 keep same treatment 04/12 lowering Haldol to 5 mg p.o. b.i.d. since the patient is over-sedated. 04/13 keep same treatment 04/14 agitated today, jumping around, dive off bed, crawling on all 4's, naked; took meds; now sleeping -floridly psychotic and parts data writer thought best to let pt sleep 04/16 keep same treatment 04/17 Abilify Maintena 400 mg today and scheduled next for 30 days. 04/18 change Haldol to 5 mg p.o. t.i.d. with backup IM if he refuses p.o. 04/19 keep same treatment. 04/20 keep same treatment 04/21: verbally aggressive, restless. continue 1:1 and current Tx plan. 04/22: asleep, not easily rousable. restless and irritable last gwen, slept only 4 hours overnight. continue current mgmt. 04/23 add Cogentin 0.5 p.o. b.i.d. small improvement on his psychosis 04/24 continue with same treatment. 04/25 the patient fell again. Blood pressure had been okay even though that he is noncompliant with clonidine patch. We discussed the case with the medical team and they agreed that we can discontinue since he had been noncompliant of clonidine patch since March 09. Starting on propranolol 5 mg p.o. t.i.d. to target akathisia. 04/26 continue tx. 04/27 continue tx. 04/28 reviewing labs- neutropenia and thrombocytopenia worsening Plt 88, ANC 1000, consult to mohamud/onc as plan to continue depakote given that it has been very difficult to stabilize patient. Also, pt with hx of DM, not on any medications. Will obtain A1c. continues to present disorganized, delirium-like presentation. VS are stable, BP on lower side, no need for additional medication for BP. depakote level 100.1. Ammonia level wnl. Will decrease dose of depakote given pancytopenia. 04/29 will stop depakote (one as it may be contributing to pancytopenia, second because it has not shown significant improvement in mentation), continue carbamazepine, pt seen by oncology- appreciate recommendations- 04/30 continue tx. continue to monitor ANC, Plts. oncology/hem following. 05/01 speech and thought process more organized- which is improvement. sexualized remarks, unaware of unsteady gait and weakness. will repeat CBC- continue monitor pancytopenia. 05/02/24 On lithium monitor pancytopenia wbc 3.0 less confused 05/03/24 Increase lithium 300 bid monitor response watch for confusion 05/04 continue current tx, willc heck lithium level, renal function, TSH and repeat CBC on 06/10 at 7am. may need to increase haldol 05/05/24 Continue lithium and Tegretol encourage fluids check lithium TSH electrolytes continue to monitor CBC 05/06/2024 Patient seen chart reviewed case reviewed with nursing staff. Patient was somewhat more dysphoric today tried to engage in conversation had a difficult time. He slept about 4 hours did get Haldol the other day was offered p.o. Ativan p.r.n. encourage fluids with lithium avoid nonsteroidals no gross confusion or tremor 05/07 continue tx. pending labs for lithium level, TSH, cbc on 05/10. 05/08 continue tx. 05/09 pt appeared to have seizure, was given ativan 2mg IM, CMP does show elevation in BUN 23, and elevation on Cr 1.50, mild hyperkalemia 5.2. CBC shows improvement in platelets 88 to 146, ANC also improved from 800 to 2300. normocytic anemia with Hg 11, stable H&H. will decreased lithium 150mg po BID. Increase carbamazepine to 300mg po BID. Awaiting recommendation from neurology. 05/10 continue tx. monitor CMP- renal function. seen by neurology. 05/11 repeat cmp tomorrow, lowered lithium to 150mg po qhs. continue monitoring renal function. 05/12 Patient doing well, polite, organized in speech and behavior. Discussed his lab work and medication regimen which he understood. Seed Packer inquired about patient's awareness of the past months which he has little memory of but says I was out of my mind... And is happy to be organized. Says he wishes there was a piano on the unit; asks parts data writer about his career inappropriate, organized way. -switch to Q 15 minute checks Reviewed labs and BUN/creatinine improved; alk-phos only mildly elevated Continue with current treatment plan 05/14/24- continue monitor renal function, will also check carbamazepine level, cbc, and cmp on 05/16/2024. 05/15 continue tx. labs scheduled for 05/16 05/16 labs completed on 05/16 cbc with lower ANC 1500 (from 05/12 3200- this probably due to lowering lithium dose due to increase in BUN and Cr), Platelets trending up although slightly low 150, from 88 on 03/30/2023. Carbamazepine level 8.1 BUN 18, Cr 1.31 (improved from 05/12 BUN 20, Cr 1.46). 05/17 continue tx. 05/18 continue tx. 05/19- much improved CTP! 05/20- CTP 05/21 continue tx. BP was low this morning- 98/55, HR78, will monitor oral intake and renal function. 05/22 continue tx. will check renal function 05/23 05/23 will postpone cmp for next week, not critical at this point and pt asked if they can be done next week as he has had multiple lab work recently. Reason for continued inpatient stay Substantial Risk for: inability to function Time Spent With Patient Time: Total time managing care of this patient today ____ minutes.
--- NOTE | 2024-05-23 14:09 | MHC.SL.SWA ---
Speech Pathologist Impression: Mild oral phase dysphagia d/t missing dentition, mildly reduced self-awareness when eating (can overstuff mouth) Risk of Aspiration Due to: Reduced Cognition Dysphasia Diet Status: Liquid Consistency and Strategies for Safe Swallow: Liquid Intake Recommendation: Thin Liquid Intake Strategies: Small Sips Solid Food Consistency: Dietary Recommendations: Chopped/Advanced (NDD3) Additional Modifications to Solid Foods: Medications as already implemented Oral Medication Intake: Whole with Puree Please contact the pharmacy regarding appropriate crushable or liquid drug formulations that are available whenever modified delivery is recommended. Compensatory Strategies and Precautions to be Taken for Safe Swallow: Sitting Upright (90 deg) Small Bites and Sips Alternate Liquids/Solids Rate of Ingestion Change Supervision While Eating and Drinking for Safe Swallow: Intermittent Supervision Foods to Avoid: Swallowing Recommended Treatments: Compens. Strategy Educat. Recommendation for Speech: Inpatient Speech Therapy Comment:Pt seen for followup dysphagia tx, pt alert to task of eating, with adequate pacing when feeding himself and efficient tolerance of NDD3 consistencies. Pt alternated eating bites of ground solids with sips of thin liquids, no overt s/s of aspiration. [facility] consulted with RNs, no concerns noted. MEDICAL LIAISON stated pt has been asking for apple, but d/t missing dentition and tendency to overstuff mouth, it was recommended pt not be permitted to eat hard solids like apple at this time. NDD3 with thins considered most appropriate, safest diet for now. [facility] to be re-consulted if indicated. No further tx necessary. MD notified. Frequency/Duration: Date Range for Service Req: Timeline to reassess: Pest Control Applicator Clinican/Clinical Fellow: No Supervisory Statement: I have reviewed and agree with the student/clinical fellow's documentation: N/A Speech Language Pathologist: Irene Allen M.S., [facility]
[2024-05-23 20:00] VITALS: BP 149/77; PULSE 83; RESP 18; TEMP 36.4; O2SAT 100
[2024-05-23] MEDS: traZODone HCL 50 MG TABLET PO (20:34)
[2024-05-23] MEDS: Lithium Carbonate 300 MG TABLET 150 MG PO (20:34)
[2024-05-24 08:41] VITALS: BP 109/56; PULSE 71; RESP 18; TEMP 36; O2SAT 100
--- NOTE | 2024-05-24 10:39 | P.PNPSI_ITS ---
Subjective Subjective Date of Service: 05/24/24 Reason For Visit: Schizoaffective disorder Subjective Notes: Section 7 Interim History: Pt slept through the night. He reports doing well. He asks when he will be discharged. He is eating and drinking well. He has been visible, not overly social but appropriate when approach. No SI/HI. no overt psychosis or delusions. Review of Systems Review of Systems No overt seizure-like symptoms Yes Unobtainable due to mental status Mental Status Exam Mental Status Exam Narrative: Appearance: fair hygiene, casual clothing, dressing self on his own, in NAD Behavior: cooperative Psychomotor: no agitation or retardation Speech: some problem with enunciation due to edentulous, regular rate/rhythm/volume, spontaneous. TP:linear TC: feeling okay but thinking about things that have happened to him Mood: good Affect: congruent SI: denies HI: denies VH/AH: no overt signs Delusions: no overt Insight/judgment: improving x 2. Memory/cog: alert, oriented to place, month, year, somewhat to situation but much improved. Diagnostics Vital Signs (24Hr): Vital Signs - 24 hr 05/23/24 20:00 05/24/24 08:41 Temperature 97.6 F 96.8 F Pulse Rate 83 71 Respiratory Rate 18 18 Blood Pressure 149/77 H 109/56 L Pulse Oximetry 100 100 Oxygen Delivery Method Room Air Room Air BMI result Body Mass Index 22.3 Labs 05/16/24 07:30 05/16/24 07:30 Imaging Radiology Impressions: ITS Impressions Chest X-Ray 03/20/24 08:33 IMPRESSION: Extremely limited exam. Only lateral views could be obtained. Suspect basilar airspace opacity, possibly pneumonia. Electronically signed by: Fortino Dumont MD 03/20/2024 10:10 AM EST RP Cervical Spine CT 03/21/24 11:18 IMPRESSION: 1. Allowing for suboptimal positioning, there is no CT evidence of acute cervical spine fracture or injury. 2. Degenerative changes with bulky ventral osteophytes spanning C4-C6, appearance in keeping with DISH. Electronically signed by: Fortino Dumont MD 03/21/2024 12:01 PM EST RP Head CT 03/21/24 11:18 IMPRESSION: 1. No acute intracranial abnormality. No acute fractures seen. 2. Stable chronic findings as discussed. Electronically signed by: Fortino Dumont MD 03/21/2024 11:54 AM EST RP Pelvis CT 03/21/24 11:18 IMPRESSION: 1. No acute bony abnormalities. No fractures. 2. Constipation with a large amount of stool in the rectum and sigmoid colon. 3. Mild thickening of the urinary bladder wall despite underdistention, nonspecific. Differential includes the detrusor hypertrophy, neurogenic bladder, or possibly cystitis. Electronically signed by: Fortino Dumont MD 03/21/2024 12:09 PM EST RP Head CT 03/28/24 09:37 IMPRESSION: No acute fracture, bony calvarium. No acute intracranial hemorrhage. Small vessel occlusive disease. Bifrontal bitemporal lobe atrophy. Electronically signed by: Juan Corrigan MD 03/28/2024 10:19 AM EST RP Head CT 04/25/24 12:22 IMPRESSION: No acute intracranial process seen. Electronically signed by: Ritchie Marte MD 04/25/2024 01:01 PM EST RP Medications Medications Current Medications Acetaminophen (Acetaminophen 325 Mg Tablet) 650 mg PO Q6H PRN PRN Reason: pain (1-10) Al Hydroxide/Mg Hydroxide (Magnesium Hydrox/Alum Hydrox 30 Ml Oral.Susp) 30 ml PO Q6H PRN PRN Reason: Heartburn/Nausea Aripiprazole (Aripiprazole Er 400 Mg Suser.Syr) 400 mg IM Q30D [facility] Last Admin: 05/17/24 10:49 Dose: 400 mg Aspirin (Aspirin 81 Mg Tab.Chew) 81 mg PO DAILY [facility] Last Admin: 04/23/24 08:34 Dose: 81 mg Benztropine Mesylate (Benztropine Mesylate 0.5 Mg Tablet) 0.5 mg PO BID [facility] Last Admin: 05/23/24 20:34 Dose: 0.5 mg Carbamazepine (Carbamazepine 200 Mg Tablet) 300 mg PO BID [facility] Last Admin: 05/23/24 20:35 Dose: 300 mg Ferrous Sulfate (Ferrous Sulfate 324 Mg Tablet.Dr) 324 mg PO BID [facility] Last Admin: 05/23/24 20:34 Dose: 324 mg Haloperidol (Haloperidol 5 Mg Tablet) 5 mg PO TID [facility] Last Admin: 05/23/24 20:34 Dose: 5 mg Haloperidol Lactate (Haloperidol Lactate Oral Conc 10 Mg/5 Ml Oral.Conc) 5 mg PO Q6H PRN PRN Reason: Psychosis or severe agitation Last Admin: 05/05/24 02:37 Dose: 5 mg Haloperidol Lactate (Haloperidol Lactate 5 Mg/Ml Vial) 5 mg IM TID PRN PRN Reason: Refusal of Court PO Haldol Last Admin: 05/06/24 00:36 Dose: 5 mg [place] Carbonate ([place] Carbonate 300 Mg Tablet) 150 mg PO BEDTIME [facility] Last Admin: 05/23/24 20:34 Dose: 150 mg Magnesium Hydroxide (Milk Of Magnesia 30 Ml Oral.Susp) 30 ml PO DAILY PRN PRN Reason: Constipation Nicotine Polacrilex (Nicotine Polacrilex 2 Mg Gum) 2 mg BUCCAL Q2H PRN PRN Reason: Nicotine Cravings Trazodone HCl (Trazodone Hcl 50 Mg Tablet) 50 mg PO BEDTIME PRN PRN Reason: Insomnia Last Admin: 05/23/24 20:34 Dose: 50 mg Vitamin D (Cholecalciferol (Vitamin D3) 25 Mcg Tablet) 50 mcg PO DAILY [facility] Last Admin: 05/23/24 09:14 Dose: 50 mcg Allergies Allergies Allergy/AdvReac Type Severity Reaction Status Date / Time lithium Allergy Unknown Verified 01/13/24 18:08 divalproex sodium AdvReac Severe encephalopa Verified 05/08/24 12:34 [From Depakote] thy Assessment & Plan Assessment & Plan (1) Schizoaffective disorder, bipolar type: Status: Acute Code(s): F25.0 - Schizoaffective disorder, bipolar type (2) Diabetes mellitus: Status: Acute Code(s): E11.9 - Type 2 diabetes mellitus without complications Assessment and Plan: A1c on 04/28 5.9% Not on current medications (3) Hypertension: Status: Acute Code(s): I10 - Essential (primary) hypertension Assessment and Plan: not on current medications (4) Pancytopenia: Status: Acute Code(s): D61.818 - Other pancytopenia Assessment and Plan: seems to be improving after dc depakote CBC on 05/09/2024--> shows improvement in platelets 88 to 146, ANC also improved from 800 to 2300. normocytic anemia with Hgb 11, stable H&H. labs completed on 05/16 cbc with lower ANC 1500 (from 05/12 3200- this probably due to lowering lithium dose due to increase in BUN and Cr), Platelets trending up although slightly low 150, from 88 on 03/30/2023. Carbamazepine level 8.1 BUN 18, Cr 1.31 (improved from 05/12 BUN 20, Cr 1.46). (5) Chronic kidney disease (CKD): Status: Acute Code(s): N18.9 - Chronic kidney disease, unspecified Assessment and Plan: on low dose of lithium, closely monitoring renal function. Plan 03/23 keep same treatment 68 yo from a fpc with chronic psychotic disorder, refusing medication , elevated bp and disorganized and agitated behavior requiring psychiatric hospitalization and treatment not competent to sign cv. 01/14 continue to follow - gave lambs warning today- and he says the instructional design manager will be a she- still refusing medications and quite psychotic takes alot of redirection to settle him poor adls- 01/15- Refuses meds, refuses hospitalist consult-second day File for Section Seven consideration on 01/17. Provide care as he will allow. 01/16: Depakote 250 mg bid Haldol, Lorazepam, Benadryl prn Section 7 to be filed 01/17 Message left for guardian. 01/17: Section Seven filed. . Court scheduled 01/26/24 Pt continues to refuse medicaitons. He is in need of full assist with ADL's and is incontinent. Pt transferred to [facility] this afternoon. 01/19/2024 Patient pending civil commitment loud agitated would not engage in any conversation with this typewriter aligner non informational healing agitated verbally aggressive. Every attempt being made to get a copy of the patient's Servin order unclear why this has been so problematic. Encourage food and fluids 01/19 continue same treatment 01/21/24 Patient labile agitated intrusive close labs ordered in order to per to protect the community patient wandering into patient's rooms intrusive impulsive laying on another person's bed. Often hostile agitated posturing at times we are still pending copy of reported Servin order encourage p.o. compliance 01/22/2024 Patient did require physical hold escort him out of a room that he jumped in other patient's room and on their bed while there were in it. There was no physical harm and the patient did leave the room his markedly impulsive with poor judgment remains on close observation has intermittently taken Haldol liquid pending civil commitment treatment plan there is a question of Servin order 01/22 The patient had been more agitated. We review his Servin order and we are increasing the Abilify up to 15 mg p.o. daily and adding Haldol p.r.n. since it is in his role years order. We needed to give him some p.r.n. at 14:00. 01/23 The patient is grossly psychotic disrobing and sexually disinhibited we are starting Haldol 2 mg p.o. t.i.d. to target psychosis as per court order treatment over objection order. 01/24 The patient remains very agitated and angry disruptive so we are increasing the Haldol from 2 mg to 5 mg p.o. t.i.d. with a backup IM if the patient refused as per court order. 01/25 we have increased the Haldol but still he is very psychotic and restless. Today he refused his blood work. He needed to be physically held twice. 01/26 the patient remains agitated at times but his last IM backup was yesterday. We are going to increase Abilify up to 20 mg daily to target mood lability and psychosis. 01/29/2024: Increase frequency of prn doses from tid to prn q 6mrs. Poor insight and unable to care for self 02/08 pt has not take any of mood stabilizer. continues to have poor sleep, intrusive and combative requiring IM medications, increase haldol 10mg po TID, back up IM. Will add ativan 1mg po TID, also back up IM. Labs show elevated CK 2300, BUN 20, Cr 1.80, unclear baseline Cr as he does have CKD. Discussed with hospitalist Dr. Gama, to give IV fluids and monitor labs tomorrow. LFTs also elevated suspect this is secondary to elevation in CK and should trend down as CK goes down. 02/09 still agitated, creatinine and CPK slightly high as yesterday, he removed his IV line there is no big difference with IV hydration. We are changing his community role years to have more options since it is not working Abilify and Haldol 02/10 3 chemical restraints yesterday. appears more combative, and somewhat more confused. Will decrease amount of benzo and antihistamine given to him as it seems to be backfiring. did discuss with ICU attending, Dr. Whiteside possibility of transferring there but they would like us to try IV depakote and exhaust all resources prior to considering transfer. Pt did take depakote springkle 1000mg with apple sauce with much encourage. 02/11 continue tx. 02/12 continue same treatment 01/14 continue with Abilify and other court order medications, we are Nam[place] and the court order. 02/14 Team report improvement today with pt having greater comfort and less agitation. [id number] the staff reported that the patient had been less violent in the last 24 hours 02/16 continue tx. will check depakote and ammonia on 02/17 in AM. 02/17 continue regime and plan of care 02/26/2024: Continue current regimen as per court order 03/03 continue tx. lactulose for now as we don't have new ammonia level, but will try to chack labs. 03/16- continue medications, held clonidine patch for today due to low BP. repeat labs. 03/17-continue plan of care 03/18- continue tx 03/19 continue same treatment 03/20 waiting for CBC, basic metabolic panel and ammonia level. Today he nearly choked with a grape. We are going to change his diet to chopped 03/21 patient had a fall and he was assessed. No injuries as per CT scan of head and pelvis. Again he refused again his blood work vital signs within normal limits. 03/22 keep same treatment 03/23 keep same treatment 03 24 24 Continue plan of care Depakote Tegretol Haldol carbamazepine 03/25/2024 Repeat swallowing study ordered he is already on ground diet consider lowering Haldol versus Cogentin generally try to avoid older man 03/26 lowered Haldol to 7.5 p.o. b.i.d. 03/27 start Abilify Maintena 400 IM, later on we stopped it since he was over- sedated. 03/28 monitor vital signs and we will order blood work for tomorrow morning. 03/29 keep same treatment. We are deferring Abilify Maintena since the patient is still sedated and looks slightly delirious. He has refused blood work 03/31 continue current tx. less combative but no improvement in mentation. grossly disorganized and non sensical. 04/01: court ordered meds- team reviewing and optimizing same. 04/02 continue tx. 04/03 keep same treatment, so far he had been more compliant with some of the medications in the last 3 days. 04/04 start Abilify Maintena 400 mg IM 04/05 keep Haldol as prescribed 04/06 keep same treatment 04/08/24 continue current plan, regime 04/09/24 continue plan, CAT pending 04/10 continue same treatment 04/11 keep same treatment 04/12 lowering Haldol to 5 mg p.o. b.i.d. since the patient is over-sedated. 04/13 keep same treatment 04/14 agitated today, jumping around, dive off bed, crawling on all 4's, naked; took meds; now sleeping -floridly psychotic and typewriter aligner thought best to let pt sleep 04/16 keep same treatment 04/17 Abilify Maintena 400 mg today and scheduled next for 30 days. 04/18 change Haldol to 5 mg p.o. t.i.d. with backup IM if he refuses p.o. 04/19 keep same treatment. 04/20 keep same treatment 04/21: verbally aggressive, restless. continue 1:1 and current Tx plan. 04/22: asleep, not easily rousable. restless and irritable last gwen, slept only 4 hours overnight. continue current mgmt. 04/23 add Cogentin 0.5 p.o. b.i.d. small improvement on his psychosis 04/24 continue with same treatment. 04/25 the patient fell again. Blood pressure had been okay even though that he is noncompliant with clonidine patch. We discussed the case with the medical team and they agreed that we can discontinue since he had been noncompliant of clonidine patch since March 09. Starting on propranolol 5 mg p.o. t.i.d. to target akathisia. 04/26 continue tx. 04/27 continue tx. 04/28 reviewing labs- neutropenia and thrombocytopenia worsening Plt 88, ANC 1000, consult to mohamud/onc as plan to continue depakote given that it has been very difficult to stabilize patient. Also, pt with hx of DM, not on any medications. Will obtain A1c. continues to present disorganized, delirium-like presentation. VS are stable, BP on lower side, no need for additional medication for BP. depakote level 100.1. Ammonia level wnl. Will decrease dose of depakote given pancytopenia. 04/29 will stop depakote (one as it may be contributing to pancytopenia, second because it has not shown significant improvement in mentation), continue carbamazepine, pt seen by oncology- appreciate recommendations- 04/30 continue tx. continue to monitor ANC, Plts. oncology/hem following. 05/01 speech and thought process more organized- which is improvement. sexualized remarks, unaware of unsteady gait and weakness. will repeat CBC- continue monitor pancytopenia. 05/02/24 On lithium monitor pancytopenia wbc 3.0 less confused 05/03/24 Increase lithium 300 bid monitor response watch for confusion 05/04 continue current tx, willc heck lithium level, renal function, TSH and repeat CBC on 06/10 at 7am. may need to increase haldol 05/05/24 Continue lithium and Tegretol encourage fluids check lithium TSH electrolytes continue to monitor CBC 05/06/2024 Patient seen chart reviewed case reviewed with nursing staff. Patient was somewhat more dysphoric today tried to engage in conversation had a difficult time. He slept about 4 hours did get Haldol the other day was offered p.o. Ativan p.r.n. encourage fluids with lithium avoid nonsteroidals no gross confusion or tremor 05/07 continue tx. pending labs for lithium level, TSH, cbc on 05/10. 05/08 continue tx. 05/09 pt appeared to have seizure, was given ativan 2mg IM, CMP does show elevation in BUN 23, and elevation on Cr 1.50, mild hyperkalemia 5.2. CBC shows improvement in platelets 88 to 146, ANC also improved from 800 to 2300. normocytic anemia with Hg 11, stable H&H. will decreased lithium 150mg po BID. Increase carbamazepine to 300mg po BID. Awaiting recommendation from neurology. 05/10 continue tx. monitor CMP- renal function. seen by neurology. 05/11 repeat cmp tomorrow, lowered lithium to 150mg po qhs. continue monitoring renal function. 05/12 Patient doing well, polite, organized in speech and behavior. Discussed his lab work and medication regimen which he understood. Leasing Associate inquired about patient's awareness of the past months which he has little memory of but says I was out of my mind... And is happy to be organized. Says he wishes there was a piano on the unit; asks typewriter aligner about his career inappropriate, organized way. -switch to Q 15 minute checks Reviewed labs and BUN/creatinine improved; alk-phos only mildly elevated Continue with current treatment plan 05/14/24- continue monitor renal function, will also check carbamazepine level, cbc, and cmp on 05/16/2024. 05/15 continue tx. labs scheduled for 05/16 05/16 labs completed on 05/16 cbc with lower ANC 1500 (from 05/12 3200- this probably due to lowering lithium dose due to increase in BUN and Cr), Platelets trending up although slightly low 150, from 88 on 03/30/2023. Carbamazepine level 8.1 BUN 18, Cr 1.31 (improved from 05/12 BUN 20, Cr 1.46). 05/17 continue tx. 05/18 continue tx. 05/19- much improved CTP! 05/20- CTP 05/21 continue tx. BP was low this morning- 98/55, HR78, will monitor oral intake and renal function. 05/22 continue tx. will check renal function 05/23 05/23 will postpone cmp for next week, not critical at this point and pt asked if they can be done next week as he has had multiple lab work recently. 05/24 continue tx. Reason for continued inpatient stay Substantial Risk for: inability to function Time Spent With Patient Time: Total time managing care of this patient today ____ minutes.
[2024-05-24 10:40] VITALS: BMI 22.0
[2024-05-24] MEDS: Benztropine Mesylate 0.5 MG TABLET PO ×2 (11:20→20:32)
[2024-05-24] MEDS: HaloperidoL 5 MG TABLET PO ×3 (11:20→20:33)
[2024-05-24] MEDS: Cholecalciferol (Vitamin D3) 25 MCG TABLET 50 MCG PO (11:20)
[2024-05-24] MEDS: Ferrous Sulfate 324 MG TABLET.DR PO ×2 (11:21→20:32)
[2024-05-24] MEDS: carBAMazepine 200 MG TABLET 300 MG PO ×2 (11:21→20:32)
[2024-05-24 20:00] VITALS: BP 100/50; PULSE 61; RESP 17; TEMP 35.9; O2SAT 98
[2024-05-24] MEDS: Lithium Carbonate 300 MG TABLET 150 MG PO (20:33)
[2024-05-25 08:36] VITALS: BP 142/65; PULSE 60; RESP 16; TEMP 36.8; O2SAT 99
[2024-05-25] MEDS: HaloperidoL 5 MG TABLET PO ×3 (08:37→21:08)
[2024-05-25] MEDS: Ferrous Sulfate 324 MG TABLET.DR PO ×2 (08:37→21:08)
[2024-05-25] MEDS: Cholecalciferol (Vitamin D3) 25 MCG TABLET 50 MCG PO (08:37)
[2024-05-25] MEDS: Benztropine Mesylate 0.5 MG TABLET PO ×2 (08:37→21:07)
[2024-05-25] MEDS: carBAMazepine 200 MG TABLET 300 MG PO ×2 (08:37→21:08)
--- NOTE | 2024-05-25 09:03 | HO.PSYCHPN ---
Subjective Subjective Date of Service: 05/25/24 Reason For Visit: Schizoaffective disorder Interim History: Pt slept through the night. He reports doing well. He asks when he will be discharged. He is eating and drinking well. He has been visible, not overly social but appropriate when approach. No SI/HI. no overt psychosis or delusions. Review of Systems Review of Systems No overt seizure-like symptoms Yes Unobtainable due to mental status Mental Status Exam Mental Status Exam Narrative: Appearance: fair hygiene, casual clothing, dressing self on his own, in NAD Behavior: cooperative Psychomotor: no agitation or retardation Speech: some problem with enunciation due to edentulous, regular rate/rhythm/volume, spontaneous. TP:linear TC: feeling okay but thinking about things that have happened to him Mood: good Affect: congruent SI: denies HI: denies VH/AH: no overt signs Delusions: no overt Insight/judgment: improving x 2. Memory/cog: alert, oriented to place, month, year, somewhat to situation but much improved. Diagnostics Vital Signs (24Hr): Vital Signs - 24 hr 05/24/24 20:00 05/25/24 08:36 Temperature 96.7 F L 98.2 F Pulse Rate 61 60 Respiratory Rate 17 16 Blood Pressure 100/50 L 142/65 H Pulse Oximetry 98 99 Oxygen Delivery Method Room Air Room Air BMI result Body Mass Index 22.0 Labs 05/16/24 07:30 05/16/24 07:30 Imaging Radiology Impressions: ITS Impressions Chest X-Ray 03/20/24 08:33 IMPRESSION: Extremely limited exam. Only lateral views could be obtained. Suspect basilar airspace opacity, possibly pneumonia. Electronically signed by: Fortino Dumont MD 03/20/2024 10:10 AM EST RP Cervical Spine CT 03/21/24 11:18 IMPRESSION: 1. Allowing for suboptimal positioning, there is no CT evidence of acute cervical spine fracture or injury. 2. Degenerative changes with bulky ventral osteophytes spanning C4-C6, appearance in keeping with DISH. Electronically signed by: Fortino Dumont MD 03/21/2024 12:01 PM EST RP Head CT 03/21/24 11:18 IMPRESSION: 1. No acute intracranial abnormality. No acute fractures seen. 2. Stable chronic findings as discussed. Electronically signed by: Fortino Dumont MD 03/21/2024 11:54 AM EST RP Pelvis CT 03/21/24 11:18 IMPRESSION: 1. No acute bony abnormalities. No fractures. 2. Constipation with a large amount of stool in the rectum and sigmoid colon. 3. Mild thickening of the urinary bladder wall despite underdistention, nonspecific. Differential includes the detrusor hypertrophy, neurogenic bladder, or possibly cystitis. Electronically signed by: Fortino Dumont MD 03/21/2024 12:09 PM EST RP Head CT 03/28/24 09:37 IMPRESSION: No acute fracture, bony calvarium. No acute intracranial hemorrhage. Small vessel occlusive disease. Bifrontal bitemporal lobe atrophy. Electronically signed by: Juan Corrigan MD 03/28/2024 10:19 AM EST RP Head CT 04/25/24 12:22 IMPRESSION: No acute intracranial process seen. Electronically signed by: Ritchie Marte MD 04/25/2024 01:01 PM EST RP Medications Medications Current Medications Acetaminophen (Acetaminophen 325 Mg Tablet) 650 mg PO Q6H PRN PRN Reason: pain (1-10) Al Hydroxide/Mg Hydroxide (Magnesium Hydrox/Alum Hydrox 30 Ml Oral.Susp) 30 ml PO Q6H PRN PRN Reason: Heartburn/Nausea Aripiprazole (Aripiprazole Er 400 Mg Suser.Syr) 400 mg IM Q30D [facility] Last Admin: 05/17/24 10:49 Dose: 400 mg Aspirin (Aspirin 81 Mg Tab.Chew) 81 mg PO DAILY [facility] Last Admin: 04/23/24 08:34 Dose: 81 mg Benztropine Mesylate (Benztropine Mesylate 0.5 Mg Tablet) 0.5 mg PO BID [facility] Last Admin: 05/25/24 08:37 Dose: 0.5 mg Carbamazepine (Carbamazepine 200 Mg Tablet) 300 mg PO BID [facility] Last Admin: 05/25/24 08:37 Dose: 300 mg Ferrous Sulfate (Ferrous Sulfate 324 Mg Tablet.Dr) 324 mg PO BID [facility] Last Admin: 05/25/24 08:37 Dose: 324 mg Haloperidol (Haloperidol 5 Mg Tablet) 5 mg PO TID [facility] Last Admin: 05/25/24 08:37 Dose: 5 mg Haloperidol Lactate (Haloperidol Lactate Oral Conc 10 Mg/5 Ml Oral.Conc) 5 mg PO Q6H PRN PRN Reason: Psychosis or severe agitation Last Admin: 05/05/24 02:37 Dose: 5 mg Haloperidol Lactate (Haloperidol Lactate 5 Mg/Ml Vial) 5 mg IM TID PRN PRN Reason: Refusal of Court PO Haldol Last Admin: 05/06/24 00:36 Dose: 5 mg [place] Carbonate ([place] Carbonate 300 Mg Tablet) 150 mg PO BEDTIME [facility] Last Admin: 05/24/24 20:33 Dose: 150 mg Magnesium Hydroxide (Milk Of Magnesia 30 Ml Oral.Susp) 30 ml PO DAILY PRN PRN Reason: Constipation Nicotine Polacrilex (Nicotine Polacrilex 2 Mg Gum) 2 mg BUCCAL Q2H PRN PRN Reason: Nicotine Cravings Trazodone HCl (Trazodone Hcl 50 Mg Tablet) 50 mg PO BEDTIME PRN PRN Reason: Insomnia Last Admin: 05/23/24 20:34 Dose: 50 mg Vitamin D (Cholecalciferol (Vitamin D3) 25 Mcg Tablet) 50 mcg PO DAILY [facility] Last Admin: 05/25/24 08:37 Dose: 50 mcg Allergies Allergies Allergy/AdvReac Type Severity Reaction Status Date / Time lithium Allergy Unknown Verified 01/13/24 18:08 divalproex sodium AdvReac Severe encephalopa Verified 05/08/24 12:34 [From Depakote] thy Assessment & Plan Assessment & Plan (1) Schizoaffective disorder, bipolar type: Status: Acute Code(s): F25.0 - Schizoaffective disorder, bipolar type (2) Diabetes mellitus: Status: Acute Code(s): E11.9 - Type 2 diabetes mellitus without complications Assessment and Plan: A1c on 04/28 5.9% Not on current medications (3) Hypertension: Status: Acute Code(s): I10 - Essential (primary) hypertension Assessment and Plan: not on current medications (4) Pancytopenia: Status: Acute Code(s): D61.818 - Other pancytopenia Assessment and Plan: seems to be improving after dc depakote CBC on 05/09/2024--> shows improvement in platelets 88 to 146, ANC also improved from 800 to 2300. normocytic anemia with Hgb 11, stable H&H. labs completed on 05/16 cbc with lower ANC 1500 (from 05/12 3200- this probably due to lowering lithium dose due to increase in BUN and Cr), Platelets trending up although slightly low 150, from 88 on 03/30/2023. Carbamazepine level 8.1 BUN 18, Cr 1.31 (improved from 05/12 BUN 20, Cr 1.46). (5) Chronic kidney disease (CKD): Status: Acute Code(s): N18.9 - Chronic kidney disease, unspecified Assessment and Plan: on low dose of lithium, closely monitoring renal function. Plan 03/23 keep same treatment 68 yo from a prison with chronic psychotic disorder, refusing medication , elevated bp and disorganized and agitated behavior requiring psychiatric hospitalization and treatment not competent to sign cv. 01/14 continue to follow - gave lambs warning today- and he says the administrative law judge will be a she- still refusing medications and quite psychotic takes alot of redirection to settle him poor adls- 01/15- Refuses meds, refuses hospitalist consult-second day File for Section Seven consideration on 01/17. Provide care as he will allow. 01/16: Depakote 250 mg bid Haldol, Lorazepam, Benadryl prn Section 7 to be filed 01/17 Message left for guardian. 01/17: Section Seven filed. . Court scheduled 01/26/24 Pt continues to refuse medicaitons. He is in need of full assist with ADL's and is incontinent. Pt transferred to [facility] this afternoon. 01/19/2024 Patient pending civil commitment loud agitated would not engage in any conversation with this proposal lead writer non informational healing agitated verbally aggressive. Every attempt being made to get a copy of the patient's Servin order unclear why this has been so problematic. Encourage food and fluids 01/19 continue same treatment 01/21/24 Patient labile agitated intrusive close labs ordered in order to per to protect the community patient wandering into patient's rooms intrusive impulsive laying on another person's bed. Often hostile agitated posturing at times we are still pending copy of reported Servin order encourage p.o. compliance 01/22/2024 Patient did require physical hold escort him out of a room that he jumped in other patient's room and on their bed while there were in it. There was no physical harm and the patient did leave the room his markedly impulsive with poor judgment remains on close observation has intermittently taken Haldol liquid pending civil commitment treatment plan there is a question of Servin order 01/22 The patient had been more agitated. We review his Servin order and we are increasing the Abilify up to 15 mg p.o. daily and adding Haldol p.r.n. since it is in his role years order. We needed to give him some p.r.n. at 14:00. 01/23 The patient is grossly psychotic disrobing and sexually disinhibited we are starting Haldol 2 mg p.o. t.i.d. to target psychosis as per court order treatment over objection order. 01/24 The patient remains very agitated and angry disruptive so we are increasing the Haldol from 2 mg to 5 mg p.o. t.i.d. with a backup IM if the patient refused as per court order. 01/25 we have increased the Haldol but still he is very psychotic and restless. Today he refused his blood work. He needed to be physically held twice. 01/26 the patient remains agitated at times but his last IM backup was yesterday. We are going to increase Abilify up to 20 mg daily to target mood lability and psychosis. 01/29/2024: Increase frequency of prn doses from tid to prn q 6mrs. Poor insight and unable to care for self 02/08 pt has not take any of mood stabilizer. continues to have poor sleep, intrusive and combative requiring IM medications, increase haldol 10mg po TID, back up IM. Will add ativan 1mg po TID, also back up IM. Labs show elevated CK 2300, BUN 20, Cr 1.80, unclear baseline Cr as he does have CKD. Discussed with hospitalist Dr. Gama, to give IV fluids and monitor labs tomorrow. LFTs also elevated suspect this is secondary to elevation in CK and should trend down as CK goes down. 02/09 still agitated, creatinine and CPK slightly high as yesterday, he removed his IV line there is no big difference with IV hydration. We are changing his community role years to have more options since it is not working Abilify and Haldol 02/10 3 chemical restraints yesterday. appears more combative, and somewhat more confused. Will decrease amount of benzo and antihistamine given to him as it seems to be backfiring. did discuss with ICU attending, Dr. Whiteside possibility of transferring there but they would like us to try IV depakote and exhaust all resources prior to considering transfer. Pt did take depakote springkle 1000mg with apple sauce with much encourage. 02/11 continue tx. 02/12 continue same treatment 01/14 continue with Abilify and other court order medications, we are Namenda and the court order. 02/14 Team report improvement today with pt having greater comfort and less agitation. [id number] the staff reported that the patient had been less violent in the last 24 hours 02/16 continue tx. will check depakote and ammonia on 02/17 in AM. 02/17 continue regime and plan of care 02/26/2024: Continue current regimen as per court order 03/03 continue tx. lactulose for now as we don't have new ammonia level, but will try to chack labs. 03/16- continue medications, held clonidine patch for today due to low BP. repeat labs. 03/17-continue plan of care 03/18- continue tx 03/19 continue same treatment 03/20 waiting for CBC, basic metabolic panel and ammonia level. Today he nearly choked with a grape. We are going to change his diet to chopped 03/21 patient had a fall and he was assessed. No injuries as per CT scan of head and pelvis. Again he refused again his blood work vital signs within normal limits. 03/22 keep same treatment 03/23 keep same treatment 03 24 24 Continue plan of care Depakote Tegretol Haldol carbamazepine 03/25/2024 Repeat swallowing study ordered he is already on ground diet consider lowering Haldol versus Cogentin generally try to avoid older man 03/26 lowered Haldol to 7.5 p.o. b.i.d. 03/27 start Abilify Maintena 400 IM, later on we stopped it since he was over-sedated. 03/28 monitor vital signs and we will order blood work for tomorrow morning. 03/29 keep same treatment. We are deferring Abilify Maintena since the patient is still sedated and looks slightly delirious. He has refused blood work 03/31 continue current tx. less combative but no improvement in mentation. grossly disorganized and non sensical. 04/01: court ordered meds- team reviewing and optimizing same. 04/02 continue tx. 04/03 keep same treatment, so far he had been more compliant with some of the medications in the last 3 days. 04/04 start Abilify Maintena 400 mg IM 04/05 keep Haldol as prescribed 04/06 keep same treatment 04/08/24 continue current plan, regime 04/09/24 continue plan, CAT pending 04/10 continue same treatment 04/11 keep same treatment 04/12 lowering Haldol to 5 mg p.o. b.i.d. since the patient is over-sedated. 04/13 keep same treatment 04/14 agitated today, jumping around, dive off bed, crawling on all 4's, naked; took meds; now sleeping -floridly psychotic and proposal lead writer thought best to let pt sleep 04/16 keep same treatment 04/17 Abilify Maintena 400 mg today and scheduled next for 30 days. 04/18 change Haldol to 5 mg p.o. t.i.d. with backup IM if he refuses p.o. 04/19 keep same treatment. 04/20 keep same treatment 04/21: verbally aggressive, restless. continue 1:1 and current Tx plan. 04/22: asleep, not easily rousable. restless and irritable last gwen, slept only 4 hours overnight. continue current mgmt. 04/23 add Cogentin 0.5 p.o. b.i.d. small improvement on his psychosis 04/24 continue with same treatment. 04/25 the patient fell again. Blood pressure had been okay even though that he is noncompliant with clonidine patch. We discussed the case with the medical team and they agreed that we can discontinue since he had been noncompliant of clonidine patch since March 09. Starting on propranolol 5 mg p.o. t.i.d. to target akathisia. 04/26 continue tx. 04/27 continue tx. 04/28 reviewing labs- neutropenia and thrombocytopenia worsening Plt 88, ANC 1000, consult to mohamud/onc as plan to continue depakote given that it has been very difficult to stabilize patient. Also, pt with hx of DM, not on any medications. Will obtain A1c. continues to present disorganized, delirium-like presentation. VS are stable, BP on lower side, no need for additional medication for BP. depakote level 100.1. Ammonia level wnl. Will decrease dose of depakote given pancytopenia. 04/29 will stop depakote (one as it may be contributing to pancytopenia, second because it has not shown significant improvement in mentation), continue carbamazepine, pt seen by oncology- appreciate recommendations- 04/30 continue tx. continue to monitor ANC, Plts. oncology/hem following. 05/01 speech and thought process more organized- which is improvement. sexualized remarks, unaware of unsteady gait and weakness. will repeat CBC- continue monitor pancytopenia. 05/02/24 On lithium monitor pancytopenia wbc 3.0 less confused 05/03/24 Increase lithium 300 bid monitor response watch for confusion 05/04 continue current tx, willc heck lithium level, renal function, TSH and repeat CBC on 06/10 at 7am. may need to increase haldol 05/05/24 Continue lithium and Tegretol encourage fluids check lithium TSH electrolytes continue to monitor CBC 05/06/2024 Patient seen chart reviewed case reviewed with nursing staff. Patient was somewhat more dysphoric today tried to engage in conversation had a difficult time. He slept about 4 hours did get Haldol the other day was offered p.o. Ativan p.r.n. encourage fluids with lithium avoid nonsteroidals no gross confusion or tremor 05/07 continue tx. pending labs for lithium level, TSH, cbc on 05/10. 05/08 continue tx. 05/09 pt appeared to have seizure, was given ativan 2mg IM, CMP does show elevation in BUN 23, and elevation on Cr 1.50, mild hyperkalemia 5.2. CBC shows improvement in platelets 88 to 146, ANC also improved from 800 to 2300. normocytic anemia with Hg 11, stable H&H. will decreased lithium 150mg po BID. Increase carbamazepine to 300mg po BID. Awaiting recommendation from neurology. 05/10 continue tx. monitor CMP- renal function. seen by neurology. 05/11 repeat cmp tomorrow, lowered lithium to 150mg po qhs. continue monitoring renal function. 05/12 Patient doing well, polite, organized in speech and behavior. Discussed his lab work and medication regimen which he understood. Endoscope Technician inquired about patient's awareness of the past months which he has little memory of but says I was out of my mind... And is happy to be organized. Says he wishes there was a piano on the unit; asks proposal lead writer about his career inappropriate, organized way. -switch to Q 15 minute checks Reviewed labs and BUN/creatinine improved; alk-phos only mildly elevated Continue with current treatment plan 05/14/24- continue monitor renal function, will also check carbamazepine level, cbc, and cmp on 05/16/2024. 05/15 continue tx. labs scheduled for 05/16 05/16 labs completed on 05/16 cbc with lower ANC 1500 (from 05/12 3200- this probably due to lowering lithium dose due to increase in BUN and Cr), Platelets trending up although slightly low 150, from 88 on 03/30/2023. Carbamazepine level 8.1 BUN 18, Cr 1.31 (improved from 05/12 BUN 20, Cr 1.46). 05/17 continue tx. 05/18 continue tx. 05/19- much improved CTP! 05/20- CTP 05/21 continue tx. BP was low this morning- 98/55, HR78, will monitor oral intake and renal function. 05/22 continue tx. will check renal function 05/23 05/23 will postpone cmp for next week, not critical at this point and pt asked if they can be done next week as he has had multiple lab work recently. 05/24 continue tx. 05/25 continue tx. asks to speak with urologist about erectile dysfunction. Reason for continued inpatient stay Substantial Risk for: inability to function Time Spent With Patient Time: Total time managing care of this patient today ____ minutes.
--- NOTE | 2024-05-25 14:33 | HO.PSYEVENT ---
Event Note Date of Service: 05/03/24 Time Spent With Patient Time: Total time managing care of this patient today ____ minutes.
[2024-05-25 20:00] VITALS: BP 136/81; PULSE 57; RESP 18; TEMP 36.3; O2SAT 100
[2024-05-25] MEDS: Lithium Carbonate 300 MG TABLET 150 MG PO (21:07)
[2024-05-26 08:00] VITALS: BP 125/65; PULSE 71; RESP 18; TEMP 36.3; O2SAT 100
[2024-05-26] MEDS: carBAMazepine 200 MG TABLET 300 MG PO ×2 (08:28→20:01)
[2024-05-26] MEDS: Benztropine Mesylate 0.5 MG TABLET PO ×2 (08:29→20:01)
[2024-05-26] MEDS: Cholecalciferol (Vitamin D3) 25 MCG TABLET 50 MCG PO (08:29)
[2024-05-26] MEDS: HaloperidoL 5 MG TABLET PO ×3 (08:29→20:01)
[2024-05-26] MEDS: Ferrous Sulfate 324 MG TABLET.DR PO ×2 (08:29→20:00)
--- NOTE | 2024-05-26 18:12 | HO.PSYCHPN ---
Subjective Subjective Date of Service: 05/26/24 Reason For Visit: Schizoaffective disorder Interim History: Met with patient; discussed with team Patient much more isolative, keeping to himself in his room. He says however he is not feeling depressed but is concerned that his sexual libido is gone and wanted to discuss options. Radiology Practitioner Assistant and patient discussed different etiologies as well as treatments Mental Status Exam Mental Status Exam Narrative: Appearance: fair hygiene, casual clothing, dressing self on his own, in NAD Behavior: cooperative, calm; isolative Psychomotor: no agitation or retardation Speech: some problem with enunciation due to edentulous, regular rate/rhythm/volume, spontaneous. TP:linear TC: feeling okay but thinking about things that have happened to him Mood: I'm not depressed Affect: congruent SI: denies HI: denies VH/AH: no overt signs Delusions: no overt Insight/judgment: Much improved Memory/cog: alert, oriented Diagnostics Vital Signs (24Hr): Vital Signs - 24 hr 05/25/24 20:00 05/26/24 08:00 Temperature 97.3 F 97.3 F Pulse Rate 57 71 Respiratory Rate 18 18 Blood Pressure 136/81 125/65 Pulse Oximetry 100 100 Oxygen Delivery Method Room Air Room Air BMI result Body Mass Index 22.0 Labs 05/16/24 07:30 05/16/24 07:30 Imaging Radiology Impressions: ITS Impressions Chest X-Ray 03/20/24 08:33 IMPRESSION: Extremely limited exam. Only lateral views could be obtained. Suspect basilar airspace opacity, possibly pneumonia. Electronically signed by: Fortino Dumont MD 03/20/2024 10:10 AM EST RP Cervical Spine CT 03/21/24 11:18 IMPRESSION: 1. Allowing for suboptimal positioning, there is no CT evidence of acute cervical spine fracture or injury. 2. Degenerative changes with bulky ventral osteophytes spanning C4-C6, appearance in keeping with DISH. Electronically signed by: Fortino Dumont MD 03/21/2024 12:01 PM EST RP Head CT 03/21/24 11:18 IMPRESSION: 1. No acute intracranial abnormality. No acute fractures seen. 2. Stable chronic findings as discussed. Electronically signed by: Fortino Dumont MD 03/21/2024 11:54 AM EST RP Pelvis CT 03/21/24 11:18 IMPRESSION: 1. No acute bony abnormalities. No fractures. 2. Constipation with a large amount of stool in the rectum and sigmoid colon. 3. Mild thickening of the urinary bladder wall despite underdistention, nonspecific. Differential includes the detrusor hypertrophy, neurogenic bladder, or possibly cystitis. Electronically signed by: Fortino Dumont MD 03/21/2024 12:09 PM EST RP Head CT 03/28/24 09:37 IMPRESSION: No acute fracture, bony calvarium. No acute intracranial hemorrhage. Small vessel occlusive disease. Bifrontal bitemporal lobe atrophy. Electronically signed by: Juan Corrigan MD 03/28/2024 10:19 AM EST RP Head CT 04/25/24 12:22 IMPRESSION: No acute intracranial process seen. Electronically signed by: Ritchie Marte MD 04/25/2024 01:01 PM EST RP Medications Medications Current Medications Acetaminophen (Acetaminophen 325 Mg Tablet) 650 mg PO Q6H PRN PRN Reason: pain (1-10) Al Hydroxide/Mg Hydroxide (Magnesium Hydrox/Alum Hydrox 30 Ml Oral.Susp) 30 ml PO Q6H PRN PRN Reason: Heartburn/Nausea Aripiprazole (Aripiprazole Er 400 Mg Suser.Syr) 400 mg IM Q30D COUNT INCLUDES THE [facility] Last Admin: 05/17/24 10:49 Dose: 400 mg Aspirin (Aspirin 81 Mg Tab.Chew) 81 mg PO DAILY COUNT INCLUDES THE [facility] Last Admin: 04/23/24 08:34 Dose: 81 mg Benztropine Mesylate (Benztropine Mesylate 0.5 Mg Tablet) 0.5 mg PO BID COUNT INCLUDES THE [facility] Last Admin: 05/26/24 08:29 Dose: 0.5 mg Carbamazepine (Carbamazepine 200 Mg Tablet) 300 mg PO BID COUNT INCLUDES THE [facility] Last Admin: 05/26/24 08:28 Dose: 300 mg Ferrous Sulfate (Ferrous Sulfate 324 Mg Tablet.Dr) 324 mg PO BID COUNT INCLUDES THE [facility] Last Admin: 05/26/24 08:29 Dose: 324 mg Haloperidol (Haloperidol 5 Mg Tablet) 5 mg PO TID COUNT INCLUDES THE [facility] Last Admin: 05/26/24 14:48 Dose: 5 mg Haloperidol Lactate (Haloperidol Lactate Oral Conc 10 Mg/5 Ml Oral.Conc) 5 mg PO Q6H PRN PRN Reason: Psychosis or severe agitation Last Admin: 05/05/24 02:37 Dose: 5 mg Haloperidol Lactate (Haloperidol Lactate 5 Mg/Ml Vial) 5 mg IM TID PRN PRN Reason: Refusal of Court PO Haldol Last Admin: 05/06/24 00:36 Dose: 5 mg [place] Carbonate (Berlin Carbonate 300 Mg Tablet) 150 mg PO BEDTIME KASIA Last Admin: 05/25/24 21:07 Dose: 150 mg Magnesium Hydroxide (Milk Of Magnesia 30 Ml Oral.Susp) 30 ml PO DAILY PRN PRN Reason: Constipation Nicotine Polacrilex (Nicotine Polacrilex 2 Mg Gum) 2 mg BUCCAL Q2H PRN PRN Reason: Nicotine Cravings Trazodone HCl (Trazodone Hcl 50 Mg Tablet) 50 mg PO BEDTIME PRN PRN Reason: Insomnia Last Admin: 05/23/24 20:34 Dose: 50 mg Vitamin D (Cholecalciferol (Vitamin D3) 25 Mcg Tablet) 50 mcg PO DAILY KASIA Last Admin: 05/26/24 08:29 Dose: 50 mcg Allergies Allergies Allergy/AdvReac Type Severity Reaction Status Date / Time lithium Allergy Unknown Verified 01/13/24 18:08 divalproex sodium AdvReac Severe encephalopa Verified 05/08/24 12:34 [From Depakote] thy Assessment & Plan Assessment & Plan (1) Schizoaffective disorder, bipolar type: Status: Acute Code(s): F25.0 - Schizoaffective disorder, bipolar type (2) Diabetes mellitus: Status: Acute Code(s): E11.9 - Type 2 diabetes mellitus without complications Assessment and Plan: A1c on 04/28 5.9% Not on current medications (3) Hypertension: Status: Acute Code(s): I10 - Essential (primary) hypertension Assessment and Plan: not on current medications (4) Pancytopenia: Status: Acute Code(s): D61.818 - Other pancytopenia Assessment and Plan: seems to be improving after dc depakote CBC on 05/09/2024--> shows improvement in platelets 88 to 146, ANC also improved from 800 to 2300. normocytic anemia with Hgb 11, stable H&H. labs completed on 05/16 cbc with lower ANC 1500 (from 05/12 3200- this probably due to lowering lithium dose due to increase in BUN and Cr), Platelets trending up although slightly low 150, from 88 on 03/30/2023. Carbamazepine level 8.1 BUN 18, Cr 1.31 (improved from 05/12 BUN 20, Cr 1.46). (5) Chronic kidney disease (CKD): Status: Acute Code(s): N18.9 - Chronic kidney disease, unspecified Assessment and Plan: on low dose of lithium, closely monitoring renal function. Plan 03/23 keep same treatment 68 yo from a retirement with chronic psychotic disorder, refusing medication , elevated bp and disorganized and agitated behavior requiring psychiatric hospitalization and treatment not competent to sign cv. 01/14 continue to follow - gave lambs warning today- and he says the youth court judge will be a she- still refusing medications and quite psychotic takes alot of redirection to settle him poor adls- 01/15- Refuses meds, refuses hospitalist consult-second day File for Section [place] consideration on 01/17. Provide care as he will allow. 01/16: Depakote 250 mg bid Haldol, Lorazepam, Benadryl prn Section 7 to be filed 01/17 Message left for guardian. 01/17: Section Seven filed. . Court scheduled 01/26/24 Pt continues to refuse medicaitons. He is in need of full assist with ADL's and is incontinent. Pt transferred to [facility] this afternoon. 01/19/2024 Patient pending civil commitment loud agitated would not engage in any conversation with this principal technical writer non informational healing agitated verbally aggressive. Every attempt being made to get a copy of the patient's Servin order unclear why this has been so problematic. Encourage food and fluids 01/19 continue same treatment 01/21/24 Patient labile agitated intrusive close labs ordered in order to per to protect the community patient wandering into patient's rooms intrusive impulsive laying on another person's bed. Often hostile agitated posturing at times we are still pending copy of reported Servin order encourage p.o. compliance 01/22/2024 Patient did require physical hold escort him out of a room that he jumped in other patient's room and on their bed while there were in it. There was no physical harm and the patient did leave the room his markedly impulsive with poor judgment remains on close observation has intermittently taken Haldol liquid pending civil commitment treatment plan there is a question of Servin order 01/22 The patient had been more agitated. We review his Servin order and we are increasing the Abilify up to 15 mg p.o. daily and adding Haldol p.r.n. since it is in his role years order. We needed to give him some p.r.n. at 14:00. 01/23 The patient is grossly psychotic disrobing and sexually disinhibited we are starting Haldol 2 mg p.o. t.i.d. to target psychosis as per court order treatment over objection order. 01/24 The patient remains very agitated and angry disruptive so we are increasing the Haldol from 2 mg to 5 mg p.o. t.i.d. with a backup IM if the patient refused as per court order. 01/25 we have increased the Haldol but still he is very psychotic and restless. Today he refused his blood work. He needed to be physically held twice. 01/26 the patient remains agitated at times but his last IM backup was yesterday. We are going to increase Abilify up to 20 mg daily to target mood lability and psychosis. 01/29/2024: Increase frequency of prn doses from tid to prn q 6mrs. Poor insight and unable to care for self 02/08 pt has not take any of mood stabilizer. continues to have poor sleep, intrusive and combative requiring IM medications, increase haldol 10mg po TID, back up IM. Will add ativan 1mg po TID, also back up IM. Labs show elevated CK 2300, BUN 20, Cr 1.80, unclear baseline Cr as he does have CKD. Discussed with hospitalist Dr. Gama, to give IV fluids and monitor labs tomorrow. LFTs also elevated suspect this is secondary to elevation in CK and should trend down as CK goes down. 02/09 still agitated, creatinine and CPK slightly high as yesterday, he removed his IV line there is no big difference with IV hydration. We are changing his community role years to have more options since it is not working Abilify and Haldol 02/10 3 chemical restraints yesterday. appears more combative, and somewhat more confused. Will decrease amount of benzo and antihistamine given to him as it seems to be backfiring. did discuss with ICU attending, Dr. Whiteside possibility of transferring there but they would like us to try IV depakote and exhaust all resources prior to considering transfer. Pt did take depakote springkle 1000mg with apple sauce with much encourage. 02/11 continue tx. 02/12 continue same treatment 01/14 continue with Abilify and other court order medications, we are Nam[place] and the court order. 02/14 Team report improvement today with pt having greater comfort and less agitation. [id number] the staff reported that the patient had been less violent in the last 24 hours 02/16 continue tx. will check depakote and ammonia on 02/17 in AM. 02/17 continue regime and plan of care 02/26/2024: Continue current regimen as per court order 03/03 continue tx. lactulose for now as we don't have new ammonia level, but will try to chack labs. 03/16- continue medications, held clonidine patch for today due to low BP. repeat labs. 03/17-continue plan of care 03/18- continue tx 03/19 continue same treatment 03/20 waiting for CBC, basic metabolic panel and ammonia level. Today he nearly choked with a grape. We are going to change his diet to chopped 03/21 patient had a fall and he was assessed. No injuries as per CT scan of head and pelvis. Again he refused again his blood work vital signs within normal limits. 03/22 keep same treatment 03/23 keep same treatment 03 24 24 Continue plan of care Depakote Tegretol Haldol carbamazepine 03/25/2024 Repeat swallowing study ordered he is already on ground diet consider lowering Haldol versus Cogentin generally try to avoid older man 03/26 lowered Haldol to 7.5 p.o. b.i.d. 03/27 start Abilify Maintena 400 IM, later on we stopped it since he was over-sedated. 03/28 monitor vital signs and we will order blood work for tomorrow morning. 03/29 keep same treatment. We are deferring Abilify Maintena since the patient is still sedated and looks slightly delirious. He has refused blood work 03/31 continue current tx. less combative but no improvement in mentation. grossly disorganized and non sensical. 04/01: court ordered meds- team reviewing and optimizing same. 04/02 continue tx. 04/03 keep same treatment, so far he had been more compliant with some of the medications in the last 3 days. 04/04 start Abilify Maintena 400 mg IM 04/05 keep Haldol as prescribed 04/06 keep same treatment 04/08/24 continue current plan, regime 04/09/24 continue plan, CAT pending 04/10 continue same treatment 04/11 keep same treatment 04/12 lowering Haldol to 5 mg p.o. b.i.d. since the patient is over-sedated. 04/13 keep same treatment 04/14 agitated today, jumping around, dive off bed, crawling on all 4's, naked; took meds; now sleeping -floridly psychotic and principal technical writer thought best to let pt sleep 04/16 keep same treatment 04/17 Abilify Maintena 400 mg today and scheduled next for 30 days. 04/18 change Haldol to 5 mg p.o. t.i.d. with backup IM if he refuses p.o. 04/19 keep same treatment. 04/20 keep same treatment 04/21: verbally aggressive, restless. continue 1:1 and current Tx plan. 04/22: asleep, not easily rousable. restless and irritable last gwen, slept only 4 hours overnight. continue current mgmt. 04/23 add Cogentin 0.5 p.o. b.i.d. small improvement on his psychosis 04/24 continue with same treatment. 04/25 the patient fell again. Blood pressure had been okay even though that he is noncompliant with clonidine patch. We discussed the case with the medical team and they agreed that we can discontinue since he had been noncompliant of clonidine patch since March 09. Starting on propranolol 5 mg p.o. t.i.d. to target akathisia. 04/26 continue tx. 04/27 continue tx. 04/28 reviewing labs- neutropenia and thrombocytopenia worsening Plt 88, ANC 1000, consult to mohamud/onc as plan to continue depakote given that it has been very difficult to stabilize patient. Also, pt with hx of DM, not on any medications. Will obtain A1c. continues to present disorganized, delirium-like presentation. VS are stable, BP on lower side, no need for additional medication for BP. depakote level 100.1. Ammonia level wnl. Will decrease dose of depakote given pancytopenia. 04/29 will stop depakote (one as it may be contributing to pancytopenia, second because it has not shown significant improvement in mentation), continue carbamazepine, pt seen by oncology- appreciate recommendations- 04/30 continue tx. continue to monitor ANC, Plts. oncology/hem following. 05/01 speech and thought process more organized- which is improvement. sexualized remarks, unaware of unsteady gait and weakness. will repeat CBC- continue monitor pancytopenia. 05/02/24 On lithium monitor pancytopenia wbc 3.0 less confused 05/03/24 Increase lithium 300 bid monitor response watch for confusion 05/04 continue current tx, willc heck lithium level, renal function, TSH and repeat CBC on 06/10 at 7am. may need to increase haldol 05/05/24 Continue lithium and Tegretol encourage fluids check lithium TSH electrolytes continue to monitor CBC 05/06/2024 Patient seen chart reviewed case reviewed with nursing staff. Patient was somewhat more dysphoric today tried to engage in conversation had a difficult time. He slept about 4 hours did get Haldol the other day was offered p.o. Ativan p.r.n. encourage fluids with lithium avoid nonsteroidals no gross confusion or tremor 05/07 continue tx. pending labs for lithium level, TSH, cbc on 05/10. 05/08 continue tx. 05/09 pt appeared to have seizure, was given ativan 2mg IM, CMP does show elevation in BUN 23, and elevation on Cr 1.50, mild hyperkalemia 5.2. CBC shows improvement in platelets 88 to 146, ANC also improved from 800 to 2300. normocytic anemia with Hg 11, stable H&H. will decreased lithium 150mg po BID. Increase carbamazepine to 300mg po BID. Awaiting recommendation from neurology. 05/10 continue tx. monitor CMP- renal function. seen by neurology. 05/11 repeat cmp tomorrow, lowered lithium to 150mg po qhs. continue monitoring renal function. 05/12 Patient doing well, polite, organized in speech and behavior. Discussed his lab work and medication regimen which he understood. Radiology Practitioner Assistant inquired about patient's awareness of the past months which he has little memory of but says I was out of my mind... And is happy to be organized. Says he wishes there was a piano on the unit; asks principal technical writer about his career inappropriate, organized way. -switch to Q 15 minute checks Reviewed labs and BUN/creatinine improved; alk-phos only mildly elevated Continue with current treatment plan 05/14/24- continue monitor renal function, will also check carbamazepine level, cbc, and cmp on 05/16/2024. 05/15 continue tx. labs scheduled for 05/16 05/16 labs completed on 05/16 cbc with lower ANC 1500 (from 05/12 3200- this probably due to lowering lithium dose due to increase in BUN and Cr), Platelets trending up although slightly low 150, from 88 on 03/30/2023. Carbamazepine level 8.1 BUN 18, Cr 1.31 (improved from 05/12 BUN 20, Cr 1.46). 05/17 continue tx. 05/18 continue tx. 05/19- much improved CTP! 05/20- CTP 05/21 continue tx. BP was low this morning- 98/55, HR78, will monitor oral intake and renal function. 05/22 continue tx. will check renal function 05/23 05/23 will postpone cmp for next week, not critical at this point and pt asked if they can be done next week as he has had multiple lab work recently. 05/24 continue tx. 05/25 continue tx. asks to speak with urologist about erectile dysfunction. 05/26 continue treatment plan; patient asking principal technical writer again about absent libido Patient educated on: diagnosis, medication risk/benefits and medical condition Informed Consent: understands and further education needed Reason for continued inpatient stay Substantial Risk for: stable for discharge Time Spent With Patient Time: Total time managing care of this patient today ____ minutes.
[2024-05-26 20:00] VITALS: BP 119/70; PULSE 70; RESP 18; TEMP 36.3; O2SAT 100
[2024-05-26] MEDS: Lithium Carbonate 300 MG TABLET 150 MG PO (20:00)
[2024-05-27] MEDS: HaloperidoL 5 MG TABLET PO ×3 (07:54→20:12)
[2024-05-27] MEDS: Benztropine Mesylate 0.5 MG TABLET PO ×2 (07:54→20:13)
[2024-05-27] MEDS: Ferrous Sulfate 324 MG TABLET.DR PO ×2 (07:54→20:13)
[2024-05-27] MEDS: Cholecalciferol (Vitamin D3) 25 MCG TABLET 50 MCG PO (07:54)
[2024-05-27] MEDS: carBAMazepine 200 MG TABLET 300 MG PO ×2 (07:54→20:10)
[2024-05-27 08:00] VITALS: BP 109/52; PULSE 61; RESP 18; TEMP 36; O2SAT 100
[2024-05-27 10:00] VITALS: BMI 22.1
--- NOTE | 2024-05-27 17:42 | HO.PSYCHPN ---
Subjective Subjective Date of Service: 05/27/24 Reason For Visit: Schizoaffective disorder Interim History: Met with patient; discussed with team patient says he has been reflecting on this admission and wanted to discuss his diagnosis. Supervisor Plate Forming and patient discussed schizoaffective disorder, bipolar, manic episode which patient seemed to understand. Still focused on lack of sex drive Mental Status Exam Mental Status Exam Narrative: Appearance: fair hygiene, casual clothing, dressing self on his own, in NAD Behavior: cooperative, calm; isolative Psychomotor: no agitation or retardation Speech: some problem with enunciation due to edentulous, regular rate/rhythm/volume, spontaneous. TP:linear TC: Thinking about diagnosis; decreased libido Mood: good Affect: congruent SI: denies HI: denies VH/AH: no overt signs Delusions: no overt Insight/judgment: Much improved Memory/cog: alert, oriented Diagnostics Vital Signs (24Hr): Vital Signs - 24 hr 05/26/24 20:00 05/27/24 08:00 Temperature 97.4 F 96.8 F Pulse Rate 70 61 Respiratory Rate 18 18 Blood Pressure 119/70 109/52 L Pulse Oximetry 100 100 Oxygen Delivery Method Room Air Room Air BMI result Body Mass Index 22.1 Labs 05/16/24 07:30 05/16/24 07:30 Imaging Radiology Impressions: ITS Impressions Chest X-Ray 03/20/24 08:33 IMPRESSION: Extremely limited exam. Only lateral views could be obtained. Suspect basilar airspace opacity, possibly pneumonia. Electronically signed by: Fortino Dumont MD 03/20/2024 10:10 AM EST RP Cervical Spine CT 03/21/24 11:18 IMPRESSION: 1. Allowing for suboptimal positioning, there is no CT evidence of acute cervical spine fracture or injury. 2. Degenerative changes with bulky ventral osteophytes spanning C4-C6, appearance in keeping with DISH. Electronically signed by: Fortino Dumont MD 03/21/2024 12:01 PM EST RP Head CT 03/21/24 11:18 IMPRESSION: 1. No acute intracranial abnormality. No acute fractures seen. 2. Stable chronic findings as discussed. Electronically signed by: Foritno Dumont MD 03/21/2024 11:54 AM EST RP Pelvis CT 03/21/24 11:18 IMPRESSION: 1. No acute bony abnormalities. No fractures. 2. Constipation with a large amount of stool in the rectum and sigmoid colon. 3. Mild thickening of the urinary bladder wall despite underdistention, nonspecific. Differential includes the detrusor hypertrophy, neurogenic bladder, or possibly cystitis. Electronically signed by: Fortino Dumont MD 03/21/2024 12:09 PM EST RP Head CT 03/28/24 09:37 IMPRESSION: No acute fracture, bony calvarium. No acute intracranial hemorrhage. Small vessel occlusive disease. Bifrontal bitemporal lobe atrophy. Electronically signed by: Juan Corrigan MD 03/28/2024 10:19 AM EST RP Head CT 04/25/24 12:22 IMPRESSION: No acute intracranial process seen. Electronically signed by: Ritchie Marte MD 04/25/2024 01:01 PM EST RP Medications Medications Current Medications Acetaminophen (Acetaminophen 325 Mg Tablet) 650 mg PO Q6H PRN PRN Reason: pain (1-10) Al Hydroxide/Mg Hydroxide (Magnesium Hydrox/Alum Hydrox 30 Ml Oral.Susp) 30 ml PO Q6H PRN PRN Reason: Heartburn/Nausea Aripiprazole (Aripiprazole Er 400 Mg Suser.Syr) 400 mg IM Q30D [facility] Last Admin: 05/17/24 10:49 Dose: 400 mg Aspirin (Aspirin 81 Mg Tab.Chew) 81 mg PO DAILY [facility] Last Admin: 04/23/24 08:34 Dose: 81 mg Benztropine Mesylate (Benztropine Mesylate 0.5 Mg Tablet) 0.5 mg PO BID [facility] Last Admin: 05/27/24 07:54 Dose: 0.5 mg Carbamazepine (Carbamazepine 200 Mg Tablet) 300 mg PO BID [facility] Last Admin: 05/27/24 07:54 Dose: 300 mg Ferrous Sulfate (Ferrous Sulfate 324 Mg Tablet.Dr) 324 mg PO BID [facility] Last Admin: 05/27/24 07:54 Dose: 324 mg Haloperidol (Haloperidol 5 Mg Tablet) 5 mg PO TID [facility] Last Admin: 05/27/24 14:59 Dose: 5 mg Haloperidol Lactate (Haloperidol Lactate Oral Conc 10 Mg/5 Ml Oral.Conc) 5 mg PO Q6H PRN PRN Reason: Psychosis or severe agitation Last Admin: 05/05/24 02:37 Dose: 5 mg Haloperidol Lactate (Haloperidol Lactate 5 Mg/Ml Vial) 5 mg IM TID PRN PRN Reason: Refusal of Court PO Haldol Last Admin: 05/06/24 00:36 Dose: 5 mg [place] Carbonate ([place] Carbonate 300 Mg Tablet) 150 mg PO BEDTIME KASIA Last Admin: 05/26/24 20:00 Dose: 150 mg Magnesium Hydroxide (Milk Of Magnesia 30 Ml Oral.Susp) 30 ml PO DAILY PRN PRN Reason: Constipation Nicotine Polacrilex (Nicotine Polacrilex 2 Mg Gum) 2 mg BUCCAL Q2H PRN PRN Reason: Nicotine Cravings Trazodone HCl (Trazodone Hcl 50 Mg Tablet) 50 mg PO BEDTIME PRN PRN Reason: Insomnia Last Admin: 05/23/24 20:34 Dose: 50 mg Vitamin D (Cholecalciferol (Vitamin D3) 25 Mcg Tablet) 50 mcg PO DAILY KASIA Last Admin: 05/27/24 07:54 Dose: 50 mcg Allergies Allergies Allergy/AdvReac Type Severity Reaction Status Date / Time lithium Allergy Unknown Verified 01/13/24 18:08 divalproex sodium AdvReac Severe encephalopa Verified 05/08/24 12:34 [From Depakote] thy Assessment & Plan Assessment & Plan (1) Schizoaffective disorder, bipolar type: Status: Acute Code(s): F25.0 - Schizoaffective disorder, bipolar type (2) Diabetes mellitus: Status: Acute Code(s): E11.9 - Type 2 diabetes mellitus without complications Assessment and Plan: A1c on 04/28 5.9% Not on current medications (3) Hypertension: Status: Acute Code(s): I10 - Essential (primary) hypertension Assessment and Plan: not on current medications (4) Pancytopenia: Status: Acute Code(s): D61.818 - Other pancytopenia Assessment and Plan: seems to be improving after dc depakote CBC on 05/09/2024--> shows improvement in platelets 88 to 146, ANC also improved from 800 to 2300. normocytic anemia with Hgb 11, stable H&H. labs completed on 05/16 cbc with lower ANC 1500 (from 05/12 3200- this probably due to lowering lithium dose due to increase in BUN and Cr), Platelets trending up although slightly low 150, from 88 on 03/30/2023. Carbamazepine level 8.1 BUN 18, Cr 1.31 (improved from 05/12 BUN 20, Cr 1.46). (5) Chronic kidney disease (CKD): Status: Acute Code(s): N18.9 - Chronic kidney disease, unspecified Assessment and Plan: on low dose of lithium, closely monitoring renal function. Plan 03/23 keep same treatment 68 yo from a assisted with chronic psychotic disorder, refusing medication , elevated bp and disorganized and agitated behavior requiring psychiatric hospitalization and treatment not competent to sign cv. 01/14 continue to follow - gave lambs warning today- and he says the commercial construction estimator will be a she- still refusing medications and quite psychotic takes alot of redirection to settle him poor adls- 01/15- Refuses meds, refuses hospitalist consult-second day File for Section Seven consideration on 01/17. Provide care as he will allow. 01/16: Depakote 250 mg bid Haldol, Lorazepam, Benadryl prn Section 7 to be filed 01/17 Message left for guardian. 01/17: Section Seven filed. . Court scheduled 01/26/24 Pt continues to refuse medicaitons. He is in need of full assist with ADL's and is incontinent. Pt transferred to [facility] this afternoon. 01/19/2024 Patient pending civil commitment loud agitated would not engage in any conversation with this song writer non informational healing agitated verbally aggressive. Every attempt being made to get a copy of the patient's Servin order unclear why this has been so problematic. Encourage food and fluids 01/19 continue same treatment 01/21/24 Patient labile agitated intrusive close labs ordered in order to per to protect the community patient wandering into patient's rooms intrusive impulsive laying on another person's bed. Often hostile agitated posturing at times we are still pending copy of reported Servin order encourage p.o. compliance 01/22/2024 Patient did require physical hold escort him out of a room that he jumped in other patient's room and on their bed while there were in it. There was no physical harm and the patient did leave the room his markedly impulsive with poor judgment remains on close observation has intermittently taken Haldol liquid pending civil commitment treatment plan there is a question of Servin order 01/22 The patient had been more agitated. We review his Servin order and we are increasing the Abilify up to 15 mg p.o. daily and adding Haldol p.r.n. since it is in his role years order. We needed to give him some p.r.n. at 14:00. 01/23 The patient is grossly psychotic disrobing and sexually disinhibited we are starting Haldol 2 mg p.o. t.i.d. to target psychosis as per court order treatment over objection order. 01/24 The patient remains very agitated and angry disruptive so we are increasing the Haldol from 2 mg to 5 mg p.o. t.i.d. with a backup IM if the patient refused as per court order. 01/25 we have increased the Haldol but still he is very psychotic and restless. Today he refused his blood work. He needed to be physically held twice. 01/26 the patient remains agitated at times but his last IM backup was yesterday. We are going to increase Abilify up to 20 mg daily to target mood lability and psychosis. 01/29/2024: Increase frequency of prn doses from tid to prn q 6mrs. Poor insight and unable to care for self 02/08 pt has not take any of mood stabilizer. continues to have poor sleep, intrusive and combative requiring IM medications, increase haldol 10mg po TID, back up IM. Will add ativan 1mg po TID, also back up IM. Labs show elevated CK 2300, BUN 20, Cr 1.80, unclear baseline Cr as he does have CKD. Discussed with hospitalist Dr. Gama, to give IV fluids and monitor labs tomorrow. LFTs also elevated suspect this is secondary to elevation in CK and should trend down as CK goes down. 02/09 still agitated, creatinine and CPK slightly high as yesterday, he removed his IV line there is no big difference with IV hydration. We are changing his community role years to have more options since it is not working Abilify and Haldol 02/10 3 chemical restraints yesterday. appears more combative, and somewhat more confused. Will decrease amount of benzo and antihistamine given to him as it seems to be backfiring. did discuss with ICU attending, Dr. Whiteside possibility of transferring there but they would like us to try IV depakote and exhaust all resources prior to considering transfer. Pt did take depakote springkle 1000mg with apple sauce with much encourage. 02/11 continue tx. 02/12 continue same treatment 01/14 continue with Abilify and other court order medications, we are Nam[place] and the court order. 02/14 Team report improvement today with pt having greater comfort and less agitation. [id number] the staff reported that the patient had been less violent in the last 24 hours 02/16 continue tx. will check depakote and ammonia on 02/17 in AM. 02/17 continue regime and plan of care 02/26/2024: Continue current regimen as per court order 03/03 continue tx. lactulose for now as we don't have new ammonia level, but will try to chack labs. 03/16- continue medications, held clonidine patch for today due to low BP. repeat labs. 03/17-continue plan of care 03/18- continue tx 03/19 continue same treatment 03/20 waiting for CBC, basic metabolic panel and ammonia level. Today he nearly choked with a grape. We are going to change his diet to chopped 03/21 patient had a fall and he was assessed. No injuries as per CT scan of head and pelvis. Again he refused again his blood work vital signs within normal limits. 03/22 keep same treatment 03/23 keep same treatment 03 24 24 Continue plan of care Depakote Tegretol Haldol carbamazepine 03/25/2024 Repeat swallowing study ordered he is already on ground diet consider lowering Haldol versus Cogentin generally try to avoid older man 03/26 lowered Haldol to 7.5 p.o. b.i.d. 03/27 start Abilify Maintena 400 IM, later on we stopped it since he was over-sedated. 03/28 monitor vital signs and we will order blood work for tomorrow morning. 03/29 keep same treatment. We are deferring Abilify Maintena since the patient is still sedated and looks slightly delirious. He has refused blood work 03/31 continue current tx. less combative but no improvement in mentation. grossly disorganized and non sensical. 04/01: court ordered meds- team reviewing and optimizing same. 04/02 continue tx. 04/03 keep same treatment, so far he had been more compliant with some of the medications in the last 3 days. 04/04 start Abilify Maintena 400 mg IM 04/05 keep Haldol as prescribed 04/06 keep same treatment 04/08/24 continue current plan, regime 04/09/24 continue plan, CAT pending 04/10 continue same treatment 04/11 keep same treatment 04/12 lowering Haldol to 5 mg p.o. b.i.d. since the patient is over-sedated. 04/13 keep same treatment 04/14 agitated today, jumping around, dive off bed, crawling on all 4's, naked; took meds; now sleeping -floridly psychotic and song writer thought best to let pt sleep 04/16 keep same treatment 04/17 Abilify Maintena 400 mg today and scheduled next for 30 days. 04/18 change Haldol to 5 mg p.o. t.i.d. with backup IM if he refuses p.o. 04/19 keep same treatment. 04/20 keep same treatment 04/21: verbally aggressive, restless. continue 1:1 and current Tx plan. 04/22: asleep, not easily rousable. restless and irritable last gwen, slept only 4 hours overnight. continue current mgmt. 04/23 add Cogentin 0.5 p.o. b.i.d. small improvement on his psychosis 04/24 continue with same treatment. 04/25 the patient fell again. Blood pressure had been okay even though that he is noncompliant with clonidine patch. We discussed the case with the medical team and they agreed that we can discontinue since he had been noncompliant of clonidine patch since March 09. Starting on propranolol 5 mg p.o. t.i.d. to target akathisia. 04/26 continue tx. 04/27 continue tx. 04/28 reviewing labs- neutropenia and thrombocytopenia worsening Plt 88, ANC 1000, consult to mohamud/onc as plan to continue depakote given that it has been very difficult to stabilize patient. Also, pt with hx of DM, not on any medications. Will obtain A1c. continues to present disorganized, delirium-like presentation. VS are stable, BP on lower side, no need for additional medication for BP. depakote level 100.1. Ammonia level wnl. Will decrease dose of depakote given pancytopenia. 04/29 will stop depakote (one as it may be contributing to pancytopenia, second because it has not shown significant improvement in mentation), continue carbamazepine, pt seen by oncology- appreciate recommendations- 04/30 continue tx. continue to monitor ANC, Plts. oncology/hem following. 05/01 speech and thought process more organized- which is improvement. sexualized remarks, unaware of unsteady gait and weakness. will repeat CBC- continue monitor pancytopenia. 05/02/24 On lithium monitor pancytopenia wbc 3.0 less confused 05/03/24 Increase lithium 300 bid monitor response watch for confusion 05/04 continue current tx, willc heck lithium level, renal function, TSH and repeat CBC on 06/10 at 7am. may need to increase haldol 05/05/24 Continue lithium and Tegretol encourage fluids check lithium TSH electrolytes continue to monitor CBC 05/06/2024 Patient seen chart reviewed case reviewed with nursing staff. Patient was somewhat more dysphoric today tried to engage in conversation had a difficult time. He slept about 4 hours did get Haldol the other day was offered p.o. Ativan p.r.n. encourage fluids with lithium avoid nonsteroidals no gross confusion or tremor 05/07 continue tx. pending labs for lithium level, TSH, cbc on 05/10. 05/08 continue tx. 05/09 pt appeared to have seizure, was given ativan 2mg IM, CMP does show elevation in BUN 23, and elevation on Cr 1.50, mild hyperkalemia 5.2. CBC shows improvement in platelets 88 to 146, ANC also improved from 800 to 2300. normocytic anemia with Hg 11, stable H&H. will decreased lithium 150mg po BID. Increase carbamazepine to 300mg po BID. Awaiting recommendation from neurology. 05/10 continue tx. monitor CMP- renal function. seen by neurology. 05/11 repeat cmp tomorrow, lowered lithium to 150mg po qhs. continue monitoring renal function. 05/12 Patient doing well, polite, organized in speech and behavior. Discussed his lab work and medication regimen which he understood. Supervisor Plate Forming inquired about patient's awareness of the past months which he has little memory of but says I was out of my mind... And is happy to be organized. Says he wishes there was a piano on the unit; asks song writer about his career inappropriate, organized way. -switch to Q 15 minute checks Reviewed labs and BUN/creatinine improved; alk-phos only mildly elevated Continue with current treatment plan 05/14/24- continue monitor renal function, will also check carbamazepine level, cbc, and cmp on 05/16/2024. 05/15 continue tx. labs scheduled for 05/16 05/16 labs completed on 05/16 cbc with lower ANC 1500 (from 05/12 3200- this probably due to lowering lithium dose due to increase in BUN and Cr), Platelets trending up although slightly low 150, from 88 on 03/30/2023. Carbamazepine level 8.1 BUN 18, Cr 1.31 (improved from 05/12 BUN 20, Cr 1.46). 05/17 continue tx. 05/18 continue tx. 05/19- much improved CTP! 05/20- CTP 05/21 continue tx. BP was low this morning- 98/55, HR78, will monitor oral intake and renal function. 05/22 continue tx. will check renal function 05/23 05/23 will postpone cmp for next week, not critical at this point and pt asked if they can be done next week as he has had multiple lab work recently. 05/24 continue tx. 05/25 continue tx. asks to speak with urologist about erectile dysfunction. 05/26 continue treatment plan; patient asking song writer again about absent libido Patient educated on: diagnosis Informed Consent: understands and further education needed Reason for continued inpatient stay Substantial Risk for: stable for discharge Time Spent With Patient Time: Total time managing care of this patient today ____ minutes.
[2024-05-27 20:00] VITALS: BP 124/61; PULSE 76; RESP 16; TEMP 36.2; O2SAT 100
[2024-05-27] MEDS: Lithium Carbonate 300 MG TABLET 150 MG PO (20:11)
[2024-05-27 23:52] VITALS: BMI 22.1
[2024-05-28 08:00] VITALS: RESP 16
--- NOTE | 2024-05-28 08:28 | P.PNPSI_ITS ---
Subjective Subjective Date of Service: 05/28/24 Reason For Visit: Schizoaffective disorder Subjective Notes: Section 7 Interim History: Pt slept through the night. He reports he has been thinking about theological reasons for his psychiatric decompensation. He reports he thinks he did something wrong and maybe devil punished him. He denies hearing voices. He reports this is part of his restorationist believes. He does report that he is grateful that he is better. He asks if a place has been identified for him to go. He denies SI/HI. Reminded him of need for labs. Review of Systems Review of Systems No overt seizure-like symptoms Yes Unobtainable due to mental status Mental Status Exam Mental Status Exam Narrative: Appearance: fair hygiene, casual clothing, dressing self on his own, in NAD Behavior: cooperative, calm; isolative Psychomotor: no agitation or retardation Speech: some problem with enunciation due to edentulous, regular rate/rhythm/volume, spontaneous. TP:linear TC: Thinking about diagnosis; decreased libido Mood: good Affect: congruent SI: denies HI: denies VH/AH: no overt signs Delusions: no overt Insight/judgment: Much improved Memory/cog: alert, oriented Diagnostics Vital Signs (24Hr): Vital Signs - 24 hr 05/27/24 20:00 Temperature 97.1 F Pulse Rate 76 Respiratory Rate 16 Blood Pressure 124/61 Pulse Oximetry 100 Oxygen Delivery Method Room Air BMI result Body Mass Index 22.1 Labs 05/16/24 07:30 05/16/24 07:30 Imaging Radiology Impressions: ITS Impressions Chest X-Ray 03/20/24 08:33 IMPRESSION: Extremely limited exam. Only lateral views could be obtained. Suspect basilar airspace opacity, possibly pneumonia. Electronically signed by: Fortino Dumont MD 03/20/2024 10:10 AM EST RP Cervical Spine CT 03/21/24 11:18 IMPRESSION: 1. Allowing for suboptimal positioning, there is no CT evidence of acute cervical spine fracture or injury. 2. Degenerative changes with bulky ventral osteophytes spanning C4-C6, appearance in keeping with DISH. Electronically signed by: Fortino Dumont MD 03/21/2024 12:01 PM EST RP Head CT 03/21/24 11:18 IMPRESSION: 1. No acute intracranial abnormality. No acute fractures seen. 2. Stable chronic findings as discussed. Electronically signed by: Fortino Dumont MD 03/21/2024 11:54 AM EST RP Pelvis CT 03/21/24 11:18 IMPRESSION: 1. No acute bony abnormalities. No fractures. 2. Constipation with a large amount of stool in the rectum and sigmoid colon. 3. Mild thickening of the urinary bladder wall despite underdistention, nonspecific. Differential includes the detrusor hypertrophy, neurogenic bladder, or possibly cystitis. Electronically signed by: Fortino Dumont MD 03/21/2024 12:09 PM EST RP Head CT 03/28/24 09:37 IMPRESSION: No acute fracture, bony calvarium. No acute intracranial hemorrhage. Small vessel occlusive disease. Bifrontal bitemporal lobe atrophy. Electronically signed by: Juan Corrigan MD 03/28/2024 10:19 AM EST RP Head CT 04/25/24 12:22 IMPRESSION: No acute intracranial process seen. Electronically signed by: Ritchie Marte MD 04/25/2024 01:01 PM EST RP Medications Medications Current Medications Acetaminophen (Acetaminophen 325 Mg Tablet) 650 mg PO Q6H PRN PRN Reason: pain (1-10) Al Hydroxide/Mg Hydroxide (Magnesium Hydrox/Alum Hydrox 30 Ml Oral.Susp) 30 ml PO Q6H PRN PRN Reason: Heartburn/Nausea Aripiprazole (Aripiprazole Er 400 Mg Suser.Syr) 400 mg IM Q30D [facility] Last Admin: 05/17/24 10:49 Dose: 400 mg Aspirin (Aspirin 81 Mg Tab.Chew) 81 mg PO DAILY [facility] Last Admin: 04/23/24 08:34 Dose: 81 mg Benztropine Mesylate (Benztropine Mesylate 0.5 Mg Tablet) 0.5 mg PO BID [facility] Last Admin: 05/27/24 20:13 Dose: 0.5 mg Carbamazepine (Carbamazepine 200 Mg Tablet) 300 mg PO BID [facility] Last Admin: 05/27/24 20:10 Dose: 300 mg Ferrous Sulfate (Ferrous Sulfate 324 Mg Tablet.Dr) 324 mg PO BID [facility] Last Admin: 05/27/24 20:13 Dose: 324 mg Haloperidol (Haloperidol 5 Mg Tablet) 5 mg PO TID [facility] Last Admin: 05/27/24 20:12 Dose: 5 mg Haloperidol Lactate (Haloperidol Lactate Oral Conc 10 Mg/5 Ml Oral.Conc) 5 mg PO Q6H PRN PRN Reason: Psychosis or severe agitation Last Admin: 05/05/24 02:37 Dose: 5 mg Haloperidol Lactate (Haloperidol Lactate 5 Mg/Ml Vial) 5 mg IM TID PRN PRN Reason: Refusal of Court PO Haldol Last Admin: 05/06/24 00:36 Dose: 5 mg Ceiba Carbonate (Ceiba Carbonate 300 Mg Tablet) 150 mg PO BEDTIME [facility] Last Admin: 05/27/24 20:11 Dose: 150 mg Magnesium Hydroxide (Milk Of Magnesia 30 Ml Oral.Susp) 30 ml PO DAILY PRN PRN Reason: Constipation Nicotine Polacrilex (Nicotine Polacrilex 2 Mg Gum) 2 mg BUCCAL Q2H PRN PRN Reason: Nicotine Cravings Trazodone HCl (Trazodone Hcl 50 Mg Tablet) 50 mg PO BEDTIME PRN PRN Reason: Insomnia Last Admin: 05/23/24 20:34 Dose: 50 mg Vitamin D (Cholecalciferol (Vitamin D3) 25 Mcg Tablet) 50 mcg PO DAILY [facility] Last Admin: 05/27/24 07:54 Dose: 50 mcg Allergies Allergies Allergy/AdvReac Type Severity Reaction Status Date / Time lithium Allergy Unknown Verified 01/13/24 18:08 divalproex sodium AdvReac Severe encephalopa Verified 05/08/24 12:34 [From Depakote] thy Assessment & Plan Assessment & Plan (1) Schizoaffective disorder, bipolar type: Status: Acute Code(s): F25.0 - Schizoaffective disorder, bipolar type (2) Diabetes mellitus: Status: Acute Code(s): E11.9 - Type 2 diabetes mellitus without complications Assessment and Plan: A1c on 04/28 5.9% Not on current medications (3) Hypertension: Status: Acute Code(s): I10 - Essential (primary) hypertension Assessment and Plan: not on current medications (4) Pancytopenia: Status: Acute Code(s): D61.818 - Other pancytopenia Assessment and Plan: seems to be improving after dc depakote CBC on 05/09/2024--> shows improvement in platelets 88 to 146, ANC also improved from 800 to 2300. normocytic anemia with Hgb 11, stable H&H. labs completed on 05/16 cbc with lower ANC 1500 (from 05/12 3200- this probably due to lowering lithium dose due to increase in BUN and Cr), Platelets trending up although slightly low 150, from 88 on 03/30/2023. Carbamazepine level 8.1 BUN 18, Cr 1.31 (improved from 05/12 BUN 20, Cr 1.46). (5) Chronic kidney disease (CKD): Status: Acute Code(s): N18.9 - Chronic kidney disease, unspecified Assessment and Plan: on low dose of lithium, closely monitoring renal function. Plan 03/23 keep same treatment 68 yo from a skilled nursing with chronic psychotic disorder, refusing medication , elevated bp and disorganized and agitated behavior requiring psychiatric hospitalization and treatment not competent to sign cv. 01/14 continue to follow - gave lambs warning today- and he says the district court judge will be a she- still refusing medications and quite psychotic takes alot of redirection to settle him poor adls- 01/15- Refuses meds, refuses hospitalist consult-second day File for Section Seven consideration on 01/17. Provide care as he will allow. 01/16: Depakote 250 mg bid Haldol, Lorazepam, Benadryl prn Section 7 to be filed 01/17 Message left for guardian. 01/17: Section Seven filed. . Court scheduled 01/26/24 Pt continues to refuse medicaitons. He is in need of full assist with ADL's and is incontinent. Pt transferred to [facility] this afternoon. 01/19/2024 Patient pending civil commitment loud agitated would not engage in any conversation with this senior mortgage underwriter non informational healing agitated verbally aggressive. Every attempt being made to get a copy of the patient's Servin order unclear why this has been so problematic. Encourage food and fluids 01/19 continue same treatment 01/21/24 Patient labile agitated intrusive close labs ordered in order to per to protect the community patient wandering into patient's rooms intrusive impulsive laying on another person's bed. Often hostile agitated posturing at times we are still pending copy of reported Servin order encourage p.o. compliance 01/22/2024 Patient did require physical hold escort him out of a room that he jumped in other patient's room and on their bed while there were in it. There was no physical harm and the patient did leave the room his markedly impulsive with poor judgment remains on close observation has intermittently taken Haldol liquid pending civil commitment treatment plan there is a question of Servin order 01/22 The patient had been more agitated. We review his Servin order and we are increasing the Abilify up to 15 mg p.o. daily and adding Haldol p.r.n. since it is in his role years order. We needed to give him some p.r.n. at 14:00. 01/23 The patient is grossly psychotic disrobing and sexually disinhibited we are starting Haldol 2 mg p.o. t.i.d. to target psychosis as per court order treatment over objection order. 01/24 The patient remains very agitated and angry disruptive so we are increasing the Haldol from 2 mg to 5 mg p.o. t.i.d. with a backup IM if the patient refused as per court order. 01/25 we have increased the Haldol but still he is very psychotic and restless. Today he refused his blood work. He needed to be physically held twice. 01/26 the patient remains agitated at times but his last IM backup was yesterday. We are going to increase Abilify up to 20 mg daily to target mood lability and psychosis. 01/29/2024: Increase frequency of prn doses from tid to prn q 6mrs. Poor insight and unable to care for self 02/08 pt has not take any of mood stabilizer. continues to have poor sleep, intrusive and combative requiring IM medications, increase haldol 10mg po TID, back up IM. Will add ativan 1mg po TID, also back up IM. Labs show elevated CK 2300, BUN 20, Cr 1.80, unclear baseline Cr as he does have CKD. Discussed with hospitalist Dr. Gama, to give IV fluids and monitor labs tomorrow. LFTs also elevated suspect this is secondary to elevation in CK and should trend down as CK goes down. 02/09 still agitated, creatinine and CPK slightly high as yesterday, he removed his IV line there is no big difference with IV hydration. We are changing his community role years to have more options since it is not working Abilify and Haldol 02/10 3 chemical restraints yesterday. appears more combative, and somewhat more confused. Will decrease amount of benzo and antihistamine given to him as it seems to be backfiring. did discuss with ICU attending, Dr. Whiteside possibility of transferring there but they would like us to try IV depakote and exhaust all resources prior to considering transfer. Pt did take depakote springkle 1000mg with apple sauce with much encourage. 02/11 continue tx. 02/12 continue same treatment 01/14 continue with Abilify and other court order medications, we are Namenda and the court order. 02/14 Team report improvement today with pt having greater comfort and less agitation. [id number] the staff reported that the patient had been less violent in the last 24 hours 02/16 continue tx. will check depakote and ammonia on 02/17 in AM. 02/17 continue regime and plan of care 02/26/2024: Continue current regimen as per court order 03/03 continue tx. lactulose for now as we don't have new ammonia level, but will try to chack labs. 03/16- continue medications, held clonidine patch for today due to low BP. repeat labs. 03/17-continue plan of care 03/18- continue tx 03/19 continue same treatment 03/20 waiting for CBC, basic metabolic panel and ammonia level. Today he nearly choked with a grape. We are going to change his diet to chopped 03/21 patient had a fall and he was assessed. No injuries as per CT scan of head and pelvis. Again he refused again his blood work vital signs within normal limits. 03/22 keep same treatment 03/23 keep same treatment 03 24 24 Continue plan of care Depakote Tegretol Haldol carbamazepine 03/25/2024 Repeat swallowing study ordered he is already on ground diet consider lowering Haldol versus Cogentin generally try to avoid older man 03/26 lowered Haldol to 7.5 p.o. b.i.d. 03/27 start Abilify Maintena 400 IM, later on we stopped it since he was over- sedated. 03/28 monitor vital signs and we will order blood work for tomorrow morning. 03/29 keep same treatment. We are deferring Abilify Maintena since the patient is still sedated and looks slightly delirious. He has refused blood work 03/31 continue current tx. less combative but no improvement in mentation. grossly disorganized and non sensical. 04/01: court ordered meds- team reviewing and optimizing same. 04/02 continue tx. 04/03 keep same treatment, so far he had been more compliant with some of the medications in the last 3 days. 04/04 start Abilify Maintena 400 mg IM 04/05 keep Haldol as prescribed 04/06 keep same treatment 04/08/24 continue current plan, regime 04/09/24 continue plan, CAT pending 04/10 continue same treatment 04/11 keep same treatment 04/12 lowering Haldol to 5 mg p.o. b.i.d. since the patient is over-sedated. 04/13 keep same treatment 04/14 agitated today, jumping around, dive off bed, crawling on all 4's, naked; took meds; now sleeping -floridly psychotic and senior mortgage underwriter thought best to let pt sleep 04/16 keep same treatment 04/17 Abilify Maintena 400 mg today and scheduled next for 30 days. 04/18 change Haldol to 5 mg p.o. t.i.d. with backup IM if he refuses p.o. 04/19 keep same treatment. 04/20 keep same treatment 04/21: verbally aggressive, restless. continue 1:1 and current Tx plan. 04/22: asleep, not easily rousable. restless and irritable last gwen, slept only 4 hours overnight. continue current mgmt. 04/23 add Cogentin 0.5 p.o. b.i.d. small improvement on his psychosis 04/24 continue with same treatment. 04/25 the patient fell again. Blood pressure had been okay even though that he is noncompliant with clonidine patch. We discussed the case with the medical team and they agreed that we can discontinue since he had been noncompliant of clonidine patch since March 09. Starting on propranolol 5 mg p.o. t.i.d. to target akathisia. 04/26 continue tx. 04/27 continue tx. 04/28 reviewing labs- neutropenia and thrombocytopenia worsening Plt 88, ANC 1000, consult to mohamud/onc as plan to continue depakote given that it has been very difficult to stabilize patient. Also, pt with hx of DM, not on any medications. Will obtain A1c. continues to present disorganized, delirium-like presentation. VS are stable, BP on lower side, no need for additional medication for BP. depakote level 100.1. Ammonia level wnl. Will decrease dose of depakote given pancytopenia. 04/29 will stop depakote (one as it may be contributing to pancytopenia, second because it has not shown significant improvement in mentation), continue carbamazepine, pt seen by oncology- appreciate recommendations- 04/30 continue tx. continue to monitor ANC, Plts. oncology/hem following. 05/01 speech and thought process more organized- which is improvement. sexualized remarks, unaware of unsteady gait and weakness. will repeat CBC- continue monitor pancytopenia. 05/02/24 On lithium monitor pancytopenia wbc 3.0 less confused 05/03/24 Increase lithium 300 bid monitor response watch for confusion 05/04 continue current tx, willc heck lithium level, renal function, TSH and repeat CBC on 06/10 at 7am. may need to increase haldol 05/05/24 Continue lithium and Tegretol encourage fluids check lithium TSH electrolytes continue to monitor CBC 05/06/2024 Patient seen chart reviewed case reviewed with nursing staff. Patient was somewhat more dysphoric today tried to engage in conversation had a difficult time. He slept about 4 hours did get Haldol the other day was offered p.o. Ativan p.r.n. encourage fluids with lithium avoid nonsteroidals no gross confusion or tremor 05/07 continue tx. pending labs for lithium level, TSH, cbc on 05/10. 05/08 continue tx. 05/09 pt appeared to have seizure, was given ativan 2mg IM, CMP does show elevation in BUN 23, and elevation on Cr 1.50, mild hyperkalemia 5.2. CBC shows improvement in platelets 88 to 146, ANC also improved from 800 to 2300. normocytic anemia with Hg 11, stable H&H. will decreased lithium 150mg po BID. Increase carbamazepine to 300mg po BID. Awaiting recommendation from neurology. 05/10 continue tx. monitor CMP- renal function. seen by neurology. 05/11 repeat cmp tomorrow, lowered lithium to 150mg po qhs. continue monitoring renal function. 05/12 Patient doing well, polite, organized in speech and behavior. Discussed his lab work and medication regimen which he understood. Histotechnologist Supervisor inquired about patient's awareness of the past months which he has little memory of but says I was out of my mind... And is happy to be organized. Says he wishes there was a piano on the unit; asks senior mortgage underwriter about his career inappropriate, organized way. -switch to Q 15 minute checks Reviewed labs and BUN/creatinine improved; alk-phos only mildly elevated Continue with current treatment plan 05/14/24- continue monitor renal function, will also check carbamazepine level, cbc, and cmp on 05/16/2024. 05/15 continue tx. labs scheduled for 05/16 05/16 labs completed on 05/16 cbc with lower ANC 1500 (from 05/12 3200- this probably due to lowering lithium dose due to increase in BUN and Cr), Platelets trending up although slightly low 150, from 88 on 03/30/2023. Carbamazepine level 8.1 BUN 18, Cr 1.31 (improved from 05/12 BUN 20, Cr 1.46). 05/17 continue tx. 05/18 continue tx. 05/19- much improved CTP! 05/20- CTP 05/21 continue tx. BP was low this morning- 98/55, HR78, will monitor oral intake and renal function. 05/22 continue tx. will check renal function 05/23 05/23 will postpone cmp for next week, not critical at this point and pt asked if they can be done next week as he has had multiple lab work recently. 05/24 continue tx. 05/25 continue tx. asks to speak with urologist about erectile dysfunction- will defer to OP. 05/28 continue tx. Reason for continued inpatient stay Substantial Risk for: inability to function Time Spent With Patient Time: Total time managing care of this patient today ____ minutes.
[2024-05-28] MEDS: carBAMazepine 200 MG TABLET 300 MG PO ×2 (09:18→19:55)
[2024-05-28] MEDS: Benztropine Mesylate 0.5 MG TABLET PO ×2 (09:19→19:56)
[2024-05-28] MEDS: Cholecalciferol (Vitamin D3) 25 MCG TABLET 50 MCG PO (09:19)
[2024-05-28] MEDS: Ferrous Sulfate 324 MG TABLET.DR PO ×2 (09:19→19:56)
[2024-05-28] MEDS: HaloperidoL 5 MG TABLET PO ×3 (09:19→19:56)
[2024-05-28] MEDS: Lithium Carbonate 300 MG TABLET 150 MG PO (19:56)
[2024-05-28 20:00] VITALS: BP 128/69; PULSE 58; RESP 15; TEMP 36.1; O2SAT 99
[2024-05-29 09:00] VITALS: BP 133/65; PULSE 77; RESP 15; TEMP 36.9; O2SAT 99
[2024-05-29] MEDS: Ferrous Sulfate 324 MG TABLET.DR PO ×2 (09:01→20:28)
[2024-05-29] MEDS: Benztropine Mesylate 0.5 MG TABLET PO ×2 (09:01→20:28)
[2024-05-29] MEDS: HaloperidoL 5 MG TABLET PO ×3 (09:01→20:28)
[2024-05-29] MEDS: carBAMazepine 200 MG TABLET 300 MG PO ×2 (09:01→20:28)
[2024-05-29] MEDS: Cholecalciferol (Vitamin D3) 25 MCG TABLET 50 MCG PO (09:01)
[2024-05-29 20:00] VITALS: BP 121/63; PULSE 79; RESP 16; TEMP 36.3; O2SAT 97
[2024-05-29] MEDS: Lithium Carbonate 300 MG TABLET 150 MG PO (20:28)
[2024-05-29] MEDS: traZODone HCL 50 MG TABLET PO (20:28)
--- NOTE | 2024-05-29 22:40 | HO.PSYCHPN ---
Subjective Subjective Date of Service: 05/29/24 Reason For Visit: Schizoaffective disorder Subjective Notes: Section 7 Interim History: Pt slept through the night. He reports doing well but hoping to be discharged soon. He denies SI/HI. He has been to some groups, but participation is minimal. He is pleasant on approach. No behavioral concerns. taking medications as prescribed. Review of Systems Review of Systems No overt seizure-like symptoms Yes Unobtainable due to mental status Mental Status Exam Mental Status Exam Narrative: Appearance: fair hygiene, casual clothing, dressing self on his own, in NAD Behavior: cooperative, calm; isolative Psychomotor: no agitation or retardation Speech: some problem with enunciation due to edentulous, regular rate/rhythm/volume, spontaneous. TP:linear TC: Thinking about diagnosis; decreased libido Mood: good Affect: congruent SI: denies HI: denies VH/AH: no overt signs Delusions: no overt Insight/judgment: Much improved Memory/cog: alert, oriented Diagnostics Vital Signs (24Hr): Vital Signs - 24 hr 05/29/24 09:00 Temperature 98.5 F Pulse Rate 77 Respiratory Rate 15 Blood Pressure 133/65 Pulse Oximetry 99 Oxygen Delivery Method Room Air BMI result Body Mass Index 22.1 Labs 05/16/24 07:30 05/16/24 07:30 Imaging Radiology Impressions: ITS Impressions Chest X-Ray 03/20/24 08:33 IMPRESSION: Extremely limited exam. Only lateral views could be obtained. Suspect basilar airspace opacity, possibly pneumonia. Electronically signed by: Fortino Dumont MD 03/20/2024 10:10 AM EST RP Cervical Spine CT 03/21/24 11:18 IMPRESSION: 1. Allowing for suboptimal positioning, there is no CT evidence of acute cervical spine fracture or injury. 2. Degenerative changes with bulky ventral osteophytes spanning C4-C6, appearance in keeping with DISH. Electronically signed by: Fortino Dumont MD 03/21/2024 12:01 PM EST RP Head CT 03/21/24 11:18 IMPRESSION: 1. No acute intracranial abnormality. No acute fractures seen. 2. Stable chronic findings as discussed. Electronically signed by: Fortino Dumont MD 03/21/2024 11:54 AM EST RP Pelvis CT 03/21/24 11:18 IMPRESSION: 1. No acute bony abnormalities. No fractures. 2. Constipation with a large amount of stool in the rectum and sigmoid colon. 3. Mild thickening of the urinary bladder wall despite underdistention, nonspecific. Differential includes the detrusor hypertrophy, neurogenic bladder, or possibly cystitis. Electronically signed by: Fortino Dumont MD 03/21/2024 12:09 PM EST RP Head CT 03/28/24 09:37 IMPRESSION: No acute fracture, bony calvarium. No acute intracranial hemorrhage. Small vessel occlusive disease. Bifrontal bitemporal lobe atrophy. Electronically signed by: Juan Corrigan MD 03/28/2024 10:19 AM EST RP Head CT 04/25/24 12:22 IMPRESSION: No acute intracranial process seen. Electronically signed by: Ritchie Marte MD 04/25/2024 01:01 PM EST RP Medications Medications Current Medications Acetaminophen (Acetaminophen 325 Mg Tablet) 650 mg PO Q6H PRN PRN Reason: pain (1-10) Al Hydroxide/Mg Hydroxide (Magnesium Hydrox/Alum Hydrox 30 Ml Oral.Susp) 30 ml PO Q6H PRN PRN Reason: Heartburn/Nausea Aripiprazole (Aripiprazole Er 400 Mg Suser.Syr) 400 mg IM Q30D [facility] Last Admin: 05/17/24 10:49 Dose: 400 mg Aspirin (Aspirin 81 Mg Tab.Chew) 81 mg PO DAILY [facility] Last Admin: 04/23/24 08:34 Dose: 81 mg Benztropine Mesylate (Benztropine Mesylate 0.5 Mg Tablet) 0.5 mg PO BID [facility] Last Admin: 05/29/24 20:28 Dose: 0.5 mg Carbamazepine (Carbamazepine 200 Mg Tablet) 300 mg PO BID [facility] Last Admin: 05/29/24 20:28 Dose: 300 mg Ferrous Sulfate (Ferrous Sulfate 324 Mg Tablet.Dr) 324 mg PO BID [facility] Last Admin: 05/29/24 20:28 Dose: 324 mg Haloperidol (Haloperidol 5 Mg Tablet) 5 mg PO TID [facility] Last Admin: 05/29/24 20:28 Dose: 5 mg Haloperidol Lactate (Haloperidol Lactate Oral Conc 10 Mg/5 Ml Oral.Conc) 5 mg PO Q6H PRN PRN Reason: Psychosis or severe agitation Last Admin: 05/05/24 02:37 Dose: 5 mg Haloperidol Lactate (Haloperidol Lactate 5 Mg/Ml Vial) 5 mg IM TID PRN PRN Reason: Refusal of Court PO Haldol Last Admin: 05/06/24 00:36 Dose: 5 mg Nedrow Carbonate (Nedrow Carbonate 300 Mg Tablet) 150 mg PO BEDTIME [facility] Last Admin: 05/29/24 20:28 Dose: 150 mg Magnesium Hydroxide (Milk Of Magnesia 30 Ml Oral.Susp) 30 ml PO DAILY PRN PRN Reason: Constipation Nicotine Polacrilex (Nicotine Polacrilex 2 Mg Gum) 2 mg BUCCAL Q2H PRN PRN Reason: Nicotine Cravings Trazodone HCl (Trazodone Hcl 50 Mg Tablet) 50 mg PO BEDTIME PRN PRN Reason: Insomnia Last Admin: 05/29/24 20:28 Dose: 50 mg Vitamin D (Cholecalciferol (Vitamin D3) 25 Mcg Tablet) 50 mcg PO DAILY [facility] Last Admin: 05/29/24 09:01 Dose: 50 mcg Allergies Allergies Allergy/AdvReac Type Severity Reaction Status Date / Time lithium Allergy Unknown Verified 01/13/24 18:08 divalproex sodium AdvReac Severe encephalopa Verified 05/08/24 12:34 [From Depakote] thy Assessment & Plan Assessment & Plan (1) Schizoaffective disorder, bipolar type: Status: Acute Code(s): F25.0 - Schizoaffective disorder, bipolar type (2) Diabetes mellitus: Status: Acute Code(s): E11.9 - Type 2 diabetes mellitus without complications Assessment and Plan: A1c on 04/28 5.9% Not on current medications (3) Hypertension: Status: Acute Code(s): I10 - Essential (primary) hypertension Assessment and Plan: not on current medications (4) Pancytopenia: Status: Acute Code(s): D61.818 - Other pancytopenia Assessment and Plan: seems to be improving after dc depakote CBC on 05/09/2024--> shows improvement in platelets 88 to 146, ANC also improved from 800 to 2300. normocytic anemia with Hgb 11, stable H&H. labs completed on 05/16 cbc with lower ANC 1500 (from 05/12 3200- this probably due to lowering lithium dose due to increase in BUN and Cr), Platelets trending up although slightly low 150, from 88 on 03/30/2023. Carbamazepine level 8.1 BUN 18, Cr 1.31 (improved from 05/12 BUN 20, Cr 1.46). (5) Chronic kidney disease (CKD): Status: Acute Code(s): N18.9 - Chronic kidney disease, unspecified Assessment and Plan: on low dose of lithium, closely monitoring renal function. Plan 03/23 keep same treatment 68 yo from a detention with chronic psychotic disorder, refusing medication , elevated bp and disorganized and agitated behavior requiring psychiatric hospitalization and treatment not competent to sign cv. 01/14 continue to follow - gave lambs warning today- and he says the municipal court judge will be a she- still refusing medications and quite psychotic takes alot of redirection to settle him poor adls- 01/15- Refuses meds, refuses hospitalist consult-second day File for Section Seven consideration on 01/17. Provide care as he will allow. 01/16: Depakote 250 mg bid Haldol, Lorazepam, Benadryl prn Section 7 to be filed 01/17 Message left for guardian. 01/17: Section Seven filed. . Court scheduled 01/26/24 Pt continues to refuse medicaitons. He is in need of full assist with ADL's and is incontinent. Pt transferred to [facility] this afternoon. 01/19/2024 Patient pending civil commitment loud agitated would not engage in any conversation with this radio news writer non informational healing agitated verbally aggressive. Every attempt being made to get a copy of the patient's Servin order unclear why this has been so problematic. Encourage food and fluids 01/19 continue same treatment 01/21/24 Patient labile agitated intrusive close labs ordered in order to per to protect the community patient wandering into patient's rooms intrusive impulsive laying on another person's bed. Often hostile agitated posturing at times we are still pending copy of reported Servin order encourage p.o. compliance 01/22/2024 Patient did require physical hold escort him out of a room that he jumped in other patient's room and on their bed while there were in it. There was no physical harm and the patient did leave the room his markedly impulsive with poor judgment remains on close observation has intermittently taken Haldol liquid pending civil commitment treatment plan there is a question of Servin order 01/22 The patient had been more agitated. We review his Servin order and we are increasing the Abilify up to 15 mg p.o. daily and adding Haldol p.r.n. since it is in his role years order. We needed to give him some p.r.n. at 14:00. 01/23 The patient is grossly psychotic disrobing and sexually disinhibited we are starting Haldol 2 mg p.o. t.i.d. to target psychosis as per court order treatment over objection order. 01/24 The patient remains very agitated and angry disruptive so we are increasing the Haldol from 2 mg to 5 mg p.o. t.i.d. with a backup IM if the patient refused as per court order. 01/25 we have increased the Haldol but still he is very psychotic and restless. Today he refused his blood work. He needed to be physically held twice. 01/26 the patient remains agitated at times but his last IM backup was yesterday. We are going to increase Abilify up to 20 mg daily to target mood lability and psychosis. 01/29/2024: Increase frequency of prn doses from tid to prn q 6mrs. Poor insight and unable to care for self 02/08 pt has not take any of mood stabilizer. continues to have poor sleep, intrusive and combative requiring IM medications, increase haldol 10mg po TID, back up IM. Will add ativan 1mg po TID, also back up IM. Labs show elevated CK 2300, BUN 20, Cr 1.80, unclear baseline Cr as he does have CKD. Discussed with hospitalist Dr. Gama, to give IV fluids and monitor labs tomorrow. LFTs also elevated suspect this is secondary to elevation in CK and should trend down as CK goes down. 02/09 still agitated, creatinine and CPK slightly high as yesterday, he removed his IV line there is no big difference with IV hydration. We are changing his community role years to have more options since it is not working Abilify and Haldol 02/10 3 chemical restraints yesterday. appears more combative, and somewhat more confused. Will decrease amount of benzo and antihistamine given to him as it seems to be backfiring. did discuss with ICU attending, Dr. Whiteside possibility of transferring there but they would like us to try IV depakote and exhaust all resources prior to considering transfer. Pt did take depakote springkle 1000mg with apple sauce with much encourage. 02/11 continue tx. 02/12 continue same treatment 01/14 continue with Abilify and other court order medications, we are Nam[place] and the court order. 02/14 Team report improvement today with pt having greater comfort and less agitation. [id number] the staff reported that the patient had been less violent in the last 24 hours 02/16 continue tx. will check depakote and ammonia on 02/17 in AM. 02/17 continue regime and plan of care 02/26/2024: Continue current regimen as per court order 03/03 continue tx. lactulose for now as we don't have new ammonia level, but will try to chack labs. 03/16- continue medications, held clonidine patch for today due to low BP. repeat labs. 03/17-continue plan of care 03/18- continue tx 03/19 continue same treatment 03/20 waiting for CBC, basic metabolic panel and ammonia level. Today he nearly choked with a grape. We are going to change his diet to chopped 03/21 patient had a fall and he was assessed. No injuries as per CT scan of head and pelvis. Again he refused again his blood work vital signs within normal limits. 03/22 keep same treatment 03/23 keep same treatment 03 24 24 Continue plan of care Depakote Tegretol Haldol carbamazepine 03/25/2024 Repeat swallowing study ordered he is already on ground diet consider lowering Haldol versus Cogentin generally try to avoid older man 03/26 lowered Haldol to 7.5 p.o. b.i.d. 03/27 start Abilify Maintena 400 IM, later on we stopped it since he was over-sedated. 03/28 monitor vital signs and we will order blood work for tomorrow morning. 03/29 keep same treatment. We are deferring Abilify Maintena since the patient is still sedated and looks slightly delirious. He has refused blood work 03/31 continue current tx. less combative but no improvement in mentation. grossly disorganized and non sensical. 04/01: court ordered meds- team reviewing and optimizing same. 04/02 continue tx. 04/03 keep same treatment, so far he had been more compliant with some of the medications in the last 3 days. 04/04 start Abilify Maintena 400 mg IM 04/05 keep Haldol as prescribed 04/06 keep same treatment 04/08/24 continue current plan, regime 04/09/24 continue plan, CAT pending 04/10 continue same treatment 04/11 keep same treatment 04/12 lowering Haldol to 5 mg p.o. b.i.d. since the patient is over-sedated. 04/13 keep same treatment 04/14 agitated today, jumping around, dive off bed, crawling on all 4's, naked; took meds; now sleeping -floridly psychotic and radio news writer thought best to let pt sleep 04/16 keep same treatment 04/17 Abilify Maintena 400 mg today and scheduled next for 30 days. 04/18 change Haldol to 5 mg p.o. t.i.d. with backup IM if he refuses p.o. 04/19 keep same treatment. 04/20 keep same treatment 04/21: verbally aggressive, restless. continue 1:1 and current Tx plan. 04/22: asleep, not easily rousable. restless and irritable last gwen, slept only 4 hours overnight. continue current mgmt. 04/23 add Cogentin 0.5 p.o. b.i.d. small improvement on his psychosis 04/24 continue with same treatment. 04/25 the patient fell again. Blood pressure had been okay even though that he is noncompliant with clonidine patch. We discussed the case with the medical team and they agreed that we can discontinue since he had been noncompliant of clonidine patch since March 09. Starting on propranolol 5 mg p.o. t.i.d. to target akathisia. 04/26 continue tx. 04/27 continue tx. 04/28 reviewing labs- neutropenia and thrombocytopenia worsening Plt 88, ANC 1000, consult to mohamud/onc as plan to continue depakote given that it has been very difficult to stabilize patient. Also, pt with hx of DM, not on any medications. Will obtain A1c. continues to present disorganized, delirium-like presentation. VS are stable, BP on lower side, no need for additional medication for BP. depakote level 100.1. Ammonia level wnl. Will decrease dose of depakote given pancytopenia. 04/29 will stop depakote (one as it may be contributing to pancytopenia, second because it has not shown significant improvement in mentation), continue carbamazepine, pt seen by oncology- appreciate recommendations- 04/30 continue tx. continue to monitor ANC, Plts. oncology/hem following. 05/01 speech and thought process more organized- which is improvement. sexualized remarks, unaware of unsteady gait and weakness. will repeat CBC- continue monitor pancytopenia. 05/02/24 On lithium monitor pancytopenia wbc 3.0 less confused 05/03/24 Increase lithium 300 bid monitor response watch for confusion 05/04 continue current tx, willc heck lithium level, renal function, TSH and repeat CBC on 06/10 at 7am. may need to increase haldol 05/05/24 Continue lithium and Tegretol encourage fluids check lithium TSH electrolytes continue to monitor CBC 05/06/2024 Patient seen chart reviewed case reviewed with nursing staff. Patient was somewhat more dysphoric today tried to engage in conversation had a difficult time. He slept about 4 hours did get Haldol the other day was offered p.o. Ativan p.r.n. encourage fluids with lithium avoid nonsteroidals no gross confusion or tremor 05/07 continue tx. pending labs for lithium level, TSH, cbc on 05/10. 05/08 continue tx. 05/09 pt appeared to have seizure, was given ativan 2mg IM, CMP does show elevation in BUN 23, and elevation on Cr 1.50, mild hyperkalemia 5.2. CBC shows improvement in platelets 88 to 146, ANC also improved from 800 to 2300. normocytic anemia with Hg 11, stable H&H. will decreased lithium 150mg po BID. Increase carbamazepine to 300mg po BID. Awaiting recommendation from neurology. 05/10 continue tx. monitor CMP- renal function. seen by neurology. 05/11 repeat cmp tomorrow, lowered lithium to 150mg po qhs. continue monitoring renal function. 05/12 Patient doing well, polite, organized in speech and behavior. Discussed his lab work and medication regimen which he understood. Distilling Department Supervisor inquired about patient's awareness of the past months which he has little memory of but says I was out of my mind... And is happy to be organized. Says he wishes there was a piano on the unit; asks radio news writer about his career inappropriate, organized way. -switch to Q 15 minute checks Reviewed labs and BUN/creatinine improved; alk-phos only mildly elevated Continue with current treatment plan 05/14/24- continue monitor renal function, will also check carbamazepine level, cbc, and cmp on 05/16/2024. 05/15 continue tx. labs scheduled for 05/16 05/16 labs completed on 05/16 cbc with lower ANC 1500 (from 05/12 3200- this probably due to lowering lithium dose due to increase in BUN and Cr), Platelets trending up although slightly low 150, from 88 on 03/30/2023. Carbamazepine level 8.1 BUN 18, Cr 1.31 (improved from 05/12 BUN 20, Cr 1.46). 05/17 continue tx. 05/18 continue tx. 05/19- much improved CTP! 05/20- CTP 05/21 continue tx. BP was low this morning- 98/55, HR78, will monitor oral intake and renal function. 05/22 continue tx. will check renal function 05/23 05/23 will postpone cmp for next week, not critical at this point and pt asked if they can be done next week as he has had multiple lab work recently. 05/24 continue tx. 05/25 continue tx. asks to speak with urologist about erectile dysfunction- will defer to OP. 05/28 continue tx. 05/29 continue tx. 05/30 continue tx. Reason for continued inpatient stay Substantial Risk for: inability to function Time Spent With Patient Time: Total time managing care of this patient today ____ minutes.
[2024-05-30 08:35] VITALS: BP 122/58; PULSE 61; RESP 16; TEMP 36.4; O2SAT 100
[2024-05-30] MEDS: carBAMazepine 200 MG TABLET 300 MG PO ×2 (09:19→21:17)
[2024-05-30] MEDS: HaloperidoL 5 MG TABLET PO ×3 (09:20→21:17)
[2024-05-30] MEDS: Ferrous Sulfate 324 MG TABLET.DR PO ×2 (09:20→21:16)
[2024-05-30] MEDS: Cholecalciferol (Vitamin D3) 25 MCG TABLET 50 MCG PO (09:20)
[2024-05-30] MEDS: Benztropine Mesylate 0.5 MG TABLET PO ×2 (09:20→21:16)
--- NOTE | 2024-05-30 14:35 | HO.PSYCHPN ---
Subjective Subjective Date of Service: 05/30/24 Reason For Visit: Schizoaffective disorder Subjective Notes: Section 7 Interim History: Pt slept through the night. He reports doing well but hoping to be discharged soon. He denies SI/HI. He has been to some groups, but participation is minimal. He is pleasant on approach. No behavioral concerns. taking medications as prescribed. Review of Systems Review of Systems No overt seizure-like symptoms Yes Unobtainable due to mental status Mental Status Exam Mental Status Exam Narrative: Appearance: fair hygiene, casual clothing, dressing self on his own, in NAD Behavior: cooperative, calm; isolative Psychomotor: no agitation or retardation Speech: some problem with enunciation due to edentulous, regular rate/rhythm/volume, spontaneous. TP:linear TC: Thinking about diagnosis; decreased libido Mood: good Affect: congruent SI: denies HI: denies VH/AH: no overt signs Delusions: no overt Insight/judgment: Much improved Memory/cog: alert, oriented Diagnostics Vital Signs (24Hr): Vital Signs - 24 hr 05/29/24 20:00 05/30/24 08:35 Temperature 97.3 F 97.5 F Pulse Rate 79 61 Respiratory Rate 16 16 Blood Pressure 121/63 122/58 L Pulse Oximetry 97 100 Oxygen Delivery Method Room Air Room Air BMI result Body Mass Index 22.1 Labs 05/16/24 07:30 05/16/24 07:30 Imaging Radiology Impressions: ITS Impressions Chest X-Ray 03/20/24 08:33 IMPRESSION: Extremely limited exam. Only lateral views could be obtained. Suspect basilar airspace opacity, possibly pneumonia. Electronically signed by: Fortino Dumont MD 03/20/2024 10:10 AM EST RP Cervical Spine CT 03/21/24 11:18 IMPRESSION: 1. Allowing for suboptimal positioning, there is no CT evidence of acute cervical spine fracture or injury. 2. Degenerative changes with bulky ventral osteophytes spanning C4-C6, appearance in keeping with DISH. Electronically signed by: Fortino Dumotn MD 03/21/2024 12:01 PM EST RP Head CT 03/21/24 11:18 IMPRESSION: 1. No acute intracranial abnormality. No acute fractures seen. 2. Stable chronic findings as discussed. Electronically signed by: Fortino Dumont MD 03/21/2024 11:54 AM EST RP Pelvis CT 03/21/24 11:18 IMPRESSION: 1. No acute bony abnormalities. No fractures. 2. Constipation with a large amount of stool in the rectum and sigmoid colon. 3. Mild thickening of the urinary bladder wall despite underdistention, nonspecific. Differential includes the detrusor hypertrophy, neurogenic bladder, or possibly cystitis. Electronically signed by: Fortino Dumont MD 03/21/2024 12:09 PM EST RP Head CT 03/28/24 09:37 IMPRESSION: No acute fracture, bony calvarium. No acute intracranial hemorrhage. Small vessel occlusive disease. Bifrontal bitemporal lobe atrophy. Electronically signed by: Juan Corrigan MD 03/28/2024 10:19 AM EST RP Head CT 04/25/24 12:22 IMPRESSION: No acute intracranial process seen. Electronically signed by: Ritchie Marte MD 04/25/2024 01:01 PM EST RP Medications Medications Current Medications Acetaminophen (Acetaminophen 325 Mg Tablet) 650 mg PO Q6H PRN PRN Reason: pain (1-10) Al Hydroxide/Mg Hydroxide (Magnesium Hydrox/Alum Hydrox 30 Ml Oral.Susp) 30 ml PO Q6H PRN PRN Reason: Heartburn/Nausea Aripiprazole (Aripiprazole Er 400 Mg Suser.Syr) 400 mg IM Q30D [facility] Last Admin: 05/17/24 10:49 Dose: 400 mg Aspirin (Aspirin 81 Mg Tab.Chew) 81 mg PO DAILY [facility] Last Admin: 04/23/24 08:34 Dose: 81 mg Benztropine Mesylate (Benztropine Mesylate 0.5 Mg Tablet) 0.5 mg PO BID [facility] Last Admin: 05/30/24 09:20 Dose: 0.5 mg Carbamazepine (Carbamazepine 200 Mg Tablet) 300 mg PO BID [facility] Last Admin: 05/30/24 09:19 Dose: 300 mg Ferrous Sulfate (Ferrous Sulfate 324 Mg Tablet.Dr) 324 mg PO BID [facility] Last Admin: 05/30/24 09:20 Dose: 324 mg Haloperidol (Haloperidol 5 Mg Tablet) 5 mg PO TID [facility] Last Admin: 05/30/24 09:20 Dose: 5 mg Haloperidol Lactate (Haloperidol Lactate Oral Conc 10 Mg/5 Ml Oral.Conc) 5 mg PO Q6H PRN PRN Reason: Psychosis or severe agitation Last Admin: 05/05/24 02:37 Dose: 5 mg Haloperidol Lactate (Haloperidol Lactate 5 Mg/Ml Vial) 5 mg IM TID PRN PRN Reason: Refusal of Court PO Haldol Last Admin: 05/06/24 00:36 Dose: 5 mg [place] Carbonate ([place] Carbonate 300 Mg Tablet) 150 mg PO BEDTIME KASIA Last Admin: 05/29/24 20:28 Dose: 150 mg Magnesium Hydroxide (Milk Of Magnesia 30 Ml Oral.Susp) 30 ml PO DAILY PRN PRN Reason: Constipation Nicotine Polacrilex (Nicotine Polacrilex 2 Mg Gum) 2 mg BUCCAL Q2H PRN PRN Reason: Nicotine Cravings Trazodone HCl (Trazodone Hcl 50 Mg Tablet) 50 mg PO BEDTIME PRN PRN Reason: Insomnia Last Admin: 05/29/24 20:28 Dose: 50 mg Vitamin D (Cholecalciferol (Vitamin D3) 25 Mcg Tablet) 50 mcg PO DAILY [facility]AS[facility] Last Admin: 05/30/24 09:20 Dose: 50 mcg Allergies Allergies Allergy/AdvReac Type Severity Reaction Status Date / Time lithium Allergy Unknown Verified 01/13/24 18:08 divalproex sodium AdvReac Severe encephalopa Verified 05/08/24 12:34 [From Depakote] thy Assessment & Plan Assessment & Plan (1) Schizoaffective disorder, bipolar type: Status: Acute Code(s): F25.0 - Schizoaffective disorder, bipolar type (2) Diabetes mellitus: Status: Acute Code(s): E11.9 - Type 2 diabetes mellitus without complications Assessment and Plan: A1c on 04/28 5.9% Not on current medications (3) Hypertension: Status: Acute Code(s): I10 - Essential (primary) hypertension Assessment and Plan: not on current medications (4) Pancytopenia: Status: Acute Code(s): D61.818 - Other pancytopenia Assessment and Plan: seems to be improving after dc depakote CBC on 05/09/2024--> shows improvement in platelets 88 to 146, ANC also improved from 800 to 2300. normocytic anemia with Hgb 11, stable H&H. labs completed on 05/16 cbc with lower ANC 1500 (from 05/12 3200- this probably due to lowering lithium dose due to increase in BUN and Cr), Platelets trending up although slightly low 150, from 88 on 03/30/2023. Carbamazepine level 8.1 BUN 18, Cr 1.31 (improved from 05/12 BUN 20, Cr 1.46). (5) Chronic kidney disease (CKD): Status: Acute Code(s): N18.9 - Chronic kidney disease, unspecified Assessment and Plan: on low dose of lithium, closely monitoring renal function. Plan 03/23 keep same treatment 68 yo from a fpc with chronic psychotic disorder, refusing medication , elevated bp and disorganized and agitated behavior requiring psychiatric hospitalization and treatment not competent to sign cv. 01/14 continue to follow - gave lambs warning today- and he says the engraver flatware will be a she- still refusing medications and quite psychotic takes alot of redirection to settle him poor adls- 01/15- Refuses meds, refuses hospitalist consult-second day File for Section Seven consideration on 01/17. Provide care as he will allow. 01/16: Depakote 250 mg bid Haldol, Lorazepam, Benadryl prn Section 7 to be filed 01/17 Message left for guardian. 01/17: Section Seven filed. . Court scheduled 01/26/24 Pt continues to refuse medicaitons. He is in need of full assist with ADL's and is incontinent. Pt transferred to [facility] this afternoon. 01/19/2024 Patient pending civil commitment loud agitated would not engage in any conversation with this creative services writer non informational healing agitated verbally aggressive. Every attempt being made to get a copy of the patient's Servin order unclear why this has been so problematic. Encourage food and fluids 01/19 continue same treatment 01/21/24 Patient labile agitated intrusive close labs ordered in order to per to protect the community patient wandering into patient's rooms intrusive impulsive laying on another person's bed. Often hostile agitated posturing at times we are still pending copy of reported Servin order encourage p.o. compliance 01/22/2024 Patient did require physical hold escort him out of a room that he jumped in other patient's room and on their bed while there were in it. There was no physical harm and the patient did leave the room his markedly impulsive with poor judgment remains on close observation has intermittently taken Haldol liquid pending civil commitment treatment plan there is a question of Servin order 01/22 The patient had been more agitated. We review his Servin order and we are increasing the Abilify up to 15 mg p.o. daily and adding Haldol p.r.n. since it is in his role years order. We needed to give him some p.r.n. at 14:00. 01/23 The patient is grossly psychotic disrobing and sexually disinhibited we are starting Haldol 2 mg p.o. t.i.d. to target psychosis as per court order treatment over objection order. 01/24 The patient remains very agitated and angry disruptive so we are increasing the Haldol from 2 mg to 5 mg p.o. t.i.d. with a backup IM if the patient refused as per court order. 01/25 we have increased the Haldol but still he is very psychotic and restless. Today he refused his blood work. He needed to be physically held twice. 01/26 the patient remains agitated at times but his last IM backup was yesterday. We are going to increase Abilify up to 20 mg daily to target mood lability and psychosis. 01/29/2024: Increase frequency of prn doses from tid to prn q 6mrs. Poor insight and unable to care for self 02/08 pt has not take any of mood stabilizer. continues to have poor sleep, intrusive and combative requiring IM medications, increase haldol 10mg po TID, back up IM. Will add ativan 1mg po TID, also back up IM. Labs show elevated CK 2300, BUN 20, Cr 1.80, unclear baseline Cr as he does have CKD. Discussed with hospitalist Dr. Gama, to give IV fluids and monitor labs tomorrow. LFTs also elevated suspect this is secondary to elevation in CK and should trend down as CK goes down. 02/09 still agitated, creatinine and CPK slightly high as yesterday, he removed his IV line there is no big difference with IV hydration. We are changing his community role years to have more options since it is not working Abilify and Haldol 02/10 3 chemical restraints yesterday. appears more combative, and somewhat more confused. Will decrease amount of benzo and antihistamine given to him as it seems to be backfiring. did discuss with ICU attending, Dr. Whiteside possibility of transferring there but they would like us to try IV depakote and exhaust all resources prior to considering transfer. Pt did take depakote springkle 1000mg with apple sauce with much encourage. 02/11 continue tx. 02/12 continue same treatment 01/14 continue with Abilify and other court order medications, we are Nam[place] and the court order. 02/14 Team report improvement today with pt having greater comfort and less agitation. [id number] the staff reported that the patient had been less violent in the last 24 hours 02/16 continue tx. will check depakote and ammonia on 02/17 in AM. 02/17 continue regime and plan of care 02/26/2024: Continue current regimen as per court order 03/03 continue tx. lactulose for now as we don't have new ammonia level, but will try to chack labs. 03/16- continue medications, held clonidine patch for today due to low BP. repeat labs. 03/17-continue plan of care 03/18- continue tx 03/19 continue same treatment 03/20 waiting for CBC, basic metabolic panel and ammonia level. Today he nearly choked with a grape. We are going to change his diet to chopped 03/21 patient had a fall and he was assessed. No injuries as per CT scan of head and pelvis. Again he refused again his blood work vital signs within normal limits. 03/22 keep same treatment 03/23 keep same treatment 03 24 24 Continue plan of care Depakote Tegretol Haldol carbamazepine 03/25/2024 Repeat swallowing study ordered he is already on ground diet consider lowering Haldol versus Cogentin generally try to avoid older man 03/26 lowered Haldol to 7.5 p.o. b.i.d. 03/27 start Abilify Maintena 400 IM, later on we stopped it since he was over-sedated. 03/28 monitor vital signs and we will order blood work for tomorrow morning. 03/29 keep same treatment. We are deferring Abilify Maintena since the patient is still sedated and looks slightly delirious. He has refused blood work 03/31 continue current tx. less combative but no improvement in mentation. grossly disorganized and non sensical. 04/01: court ordered meds- team reviewing and optimizing same. 04/02 continue tx. 04/03 keep same treatment, so far he had been more compliant with some of the medications in the last 3 days. 04/04 start Abilify Maintena 400 mg IM 04/05 keep Haldol as prescribed 04/06 keep same treatment 04/08/24 continue current plan, regime 04/09/24 continue plan, CAT pending 04/10 continue same treatment 04/11 keep same treatment 04/12 lowering Haldol to 5 mg p.o. b.i.d. since the patient is over-sedated. 04/13 keep same treatment 04/14 agitated today, jumping around, dive off bed, crawling on all 4's, naked; took meds; now sleeping -floridly psychotic and creative services writer thought best to let pt sleep 04/16 keep same treatment 04/17 Abilify Maintena 400 mg today and scheduled next for 30 days. 04/18 change Haldol to 5 mg p.o. t.i.d. with backup IM if he refuses p.o. 04/19 keep same treatment. 04/20 keep same treatment 04/21: verbally aggressive, restless. continue 1:1 and current Tx plan. 04/22: asleep, not easily rousable. restless and irritable last gwen, slept only 4 hours overnight. continue current mgmt. 04/23 add Cogentin 0.5 p.o. b.i.d. small improvement on his psychosis 04/24 continue with same treatment. 04/25 the patient fell again. Blood pressure had been okay even though that he is noncompliant with clonidine patch. We discussed the case with the medical team and they agreed that we can discontinue since he had been noncompliant of clonidine patch since March 09. Starting on propranolol 5 mg p.o. t.i.d. to target akathisia. 04/26 continue tx. 04/27 continue tx. 04/28 reviewing labs- neutropenia and thrombocytopenia worsening Plt 88, ANC 1000, consult to mohamud/onc as plan to continue depakote given that it has been very difficult to stabilize patient. Also, pt with hx of DM, not on any medications. Will obtain A1c. continues to present disorganized, delirium-like presentation. VS are stable, BP on lower side, no need for additional medication for BP. depakote level 100.1. Ammonia level wnl. Will decrease dose of depakote given pancytopenia. 04/29 will stop depakote (one as it may be contributing to pancytopenia, second because it has not shown significant improvement in mentation), continue carbamazepine, pt seen by oncology- appreciate recommendations- 04/30 continue tx. continue to monitor ANC, Plts. oncology/hem following. 05/01 speech and thought process more organized- which is improvement. sexualized remarks, unaware of unsteady gait and weakness. will repeat CBC- continue monitor pancytopenia. 05/02/24 On lithium monitor pancytopenia wbc 3.0 less confused 05/03/24 Increase lithium 300 bid monitor response watch for confusion 05/04 continue current tx, willc heck lithium level, renal function, TSH and repeat CBC on 06/10 at 7am. may need to increase haldol 05/05/24 Continue lithium and Tegretol encourage fluids check lithium TSH electrolytes continue to monitor CBC 05/06/2024 Patient seen chart reviewed case reviewed with nursing staff. Patient was somewhat more dysphoric today tried to engage in conversation had a difficult time. He slept about 4 hours did get Haldol the other day was offered p.o. Ativan p.r.n. encourage fluids with lithium avoid nonsteroidals no gross confusion or tremor 05/07 continue tx. pending labs for lithium level, TSH, cbc on 05/10. 05/08 continue tx. 05/09 pt appeared to have seizure, was given ativan 2mg IM, CMP does show elevation in BUN 23, and elevation on Cr 1.50, mild hyperkalemia 5.2. CBC shows improvement in platelets 88 to 146, ANC also improved from 800 to 2300. normocytic anemia with Hg 11, stable H&H. will decreased lithium 150mg po BID. Increase carbamazepine to 300mg po BID. Awaiting recommendation from neurology. 05/10 continue tx. monitor CMP- renal function. seen by neurology. 05/11 repeat cmp tomorrow, lowered lithium to 150mg po qhs. continue monitoring renal function. 05/12 Patient doing well, polite, organized in speech and behavior. Discussed his lab work and medication regimen which he understood. Orthodontic Band Maker inquired about patient's awareness of the past months which he has little memory of but says I was out of my mind... And is happy to be organized. Says he wishes there was a piano on the unit; asks creative services writer about his career inappropriate, organized way. -switch to Q 15 minute checks Reviewed labs and BUN/creatinine improved; alk-phos only mildly elevated Continue with current treatment plan 05/14/24- continue monitor renal function, will also check carbamazepine level, cbc, and cmp on 05/16/2024. 05/15 continue tx. labs scheduled for 05/16 05/16 labs completed on 05/16 cbc with lower ANC 1500 (from 05/12 3200- this probably due to lowering lithium dose due to increase in BUN and Cr), Platelets trending up although slightly low 150, from 88 on 03/30/2023. Carbamazepine level 8.1 BUN 18, Cr 1.31 (improved from 05/12 BUN 20, Cr 1.46). 05/17 continue tx. 05/18 continue tx. 05/19- much improved CTP! 05/20- CTP 05/21 continue tx. BP was low this morning- 98/55, HR78, will monitor oral intake and renal function. 05/22 continue tx. will check renal function 05/23 05/23 will postpone cmp for next week, not critical at this point and pt asked if they can be done next week as he has had multiple lab work recently. 05/24 continue tx. 05/25 continue tx. asks to speak with urologist about erectile dysfunction- will defer to OP. 05/28 continue tx. 05/29 continue tx. 05/30 continue tx. 05/31 continue tx. Reason for continued inpatient stay Substantial Risk for: inability to function Time Spent With Patient Time: Total time managing care of this patient today ____ minutes.
[2024-05-30 20:00] VITALS: BP 110/51; PULSE 71; RESP 18; TEMP 36.6; O2SAT 99
[2024-05-30] MEDS: traZODone HCL 50 MG TABLET PO (21:16)
[2024-05-30] MEDS: Lithium Carbonate 300 MG TABLET 150 MG PO (21:16)
[2024-05-30 23:00] VITALS: BMI 22.6
[2024-05-31 08:00] VITALS: BP 109/58; PULSE 69; RESP 18; TEMP 36.6; O2SAT 99
[2024-05-31] MEDS: Cholecalciferol (Vitamin D3) 25 MCG TABLET 50 MCG PO (09:25)
[2024-05-31] MEDS: Benztropine Mesylate 0.5 MG TABLET PO ×2 (09:25→20:14)
[2024-05-31] MEDS: Ferrous Sulfate 324 MG TABLET.DR PO ×2 (09:25→20:14)
[2024-05-31] MEDS: carBAMazepine 200 MG TABLET 300 MG PO ×2 (09:25→20:14)
[2024-05-31] MEDS: HaloperidoL 5 MG TABLET PO ×3 (09:26→20:14)
--- NOTE | 2024-05-31 17:10 | HO.PSYCHPN ---
Subjective Subjective Date of Service: 05/31/24 Reason For Visit: Schizoaffective disorder Subjective Notes: Conditional Voluntary Interim History: Pt slept through the night. Pt has been visible on the unit. He played the piano and stay out for some time. He was smiling. He denied SI/HI. No overt psychosis or delusions noted. Review of Systems Review of Systems No overt seizure-like symptoms Yes Unobtainable due to mental status Mental Status Exam Mental Status Exam Narrative: Appearance: fair hygiene, casual clothing, dressing self on his own, in NAD Behavior: cooperative, calm; isolative Psychomotor: no agitation or retardation Speech: some problem with enunciation due to edentulous, regular rate/rhythm/volume, spontaneous. TP:linear TC: Thinking about diagnosis; decreased libido Mood: good Affect: congruent SI: denies HI: denies VH/AH: no overt signs Delusions: no overt Insight/judgment: Much improved Memory/cog: alert, oriented Diagnostics Vital Signs (24Hr): Vital Signs - 24 hr 05/30/24 20:00 05/31/24 08:00 Temperature 97.8 F 98 F Pulse Rate 71 69 Respiratory Rate 18 18 Blood Pressure 110/51 L 109/58 L Pulse Oximetry 99 99 Oxygen Delivery Method Room Air Room Air BMI result Body Mass Index 22.1 Labs 05/16/24 07:30 05/16/24 07:30 Imaging Radiology Impressions: ITS Impressions Chest X-Ray 03/20/24 08:33 IMPRESSION: Extremely limited exam. Only lateral views could be obtained. Suspect basilar airspace opacity, possibly pneumonia. Electronically signed by: Fortino Dumont MD 03/20/2024 10:10 AM EST RP Cervical Spine CT 03/21/24 11:18 IMPRESSION: 1. Allowing for suboptimal positioning, there is no CT evidence of acute cervical spine fracture or injury. 2. Degenerative changes with bulky ventral osteophytes spanning C4-C6, appearance in keeping with DISH. Electronically signed by: Fortino Dumont MD 03/21/2024 12:01 PM EST RP Head CT 03/21/24 11:18 IMPRESSION: 1. No acute intracranial abnormality. No acute fractures seen. 2. Stable chronic findings as discussed. Electronically signed by: Fortino Dumont MD 03/21/2024 11:54 AM EST RP Pelvis CT 03/21/24 11:18 IMPRESSION: 1. No acute bony abnormalities. No fractures. 2. Constipation with a large amount of stool in the rectum and sigmoid colon. 3. Mild thickening of the urinary bladder wall despite underdistention, nonspecific. Differential includes the detrusor hypertrophy, neurogenic bladder, or possibly cystitis. Electronically signed by: Fortino Dumont MD 03/21/2024 12:09 PM EST RP Head CT 03/28/24 09:37 IMPRESSION: No acute fracture, bony calvarium. No acute intracranial hemorrhage. Small vessel occlusive disease. Bifrontal bitemporal lobe atrophy. Electronically signed by: Juan Corrigan MD 03/28/2024 10:19 AM EST RP Head CT 04/25/24 12:22 IMPRESSION: No acute intracranial process seen. Electronically signed by: Ritchie Marte MD 04/25/2024 01:01 PM EST RP Medications Medications Current Medications Acetaminophen (Acetaminophen 325 Mg Tablet) 650 mg PO Q6H PRN PRN Reason: pain (1-10) Al Hydroxide/Mg Hydroxide (Magnesium Hydrox/Alum Hydrox 30 Ml Oral.Susp) 30 ml PO Q6H PRN PRN Reason: Heartburn/Nausea Aripiprazole (Aripiprazole Er 400 Mg Suser.Syr) 400 mg IM Q30D [facility] Last Admin: 05/17/24 10:49 Dose: 400 mg Aspirin (Aspirin 81 Mg Tab.Chew) 81 mg PO DAILY [facility] Last Admin: 04/23/24 08:34 Dose: 81 mg Benztropine Mesylate (Benztropine Mesylate 0.5 Mg Tablet) 0.5 mg PO BID [facility] Last Admin: 05/31/24 09:25 Dose: 0.5 mg Carbamazepine (Carbamazepine 200 Mg Tablet) 300 mg PO BID [facility] Last Admin: 05/31/24 09:25 Dose: 300 mg Ferrous Sulfate (Ferrous Sulfate 324 Mg Tablet.Dr) 324 mg PO BID [facility] Last Admin: 05/31/24 09:25 Dose: 324 mg Haloperidol (Haloperidol 5 Mg Tablet) 5 mg PO TID [facility] Last Admin: 05/31/24 16:08 Dose: 5 mg Haloperidol Lactate (Haloperidol Lactate Oral Conc 10 Mg/5 Ml Oral.Conc) 5 mg PO Q6H PRN PRN Reason: Psychosis or severe agitation Last Admin: 05/05/24 02:37 Dose: 5 mg Haloperidol Lactate (Haloperidol Lactate 5 Mg/Ml Vial) 5 mg IM TID PRN PRN Reason: Refusal of Court PO Haldol Last Admin: 05/06/24 00:36 Dose: 5 mg Boyle Carbonate (Boyle Carbonate 300 Mg Tablet) 150 mg PO BEDTIME [facility]AS[facility] Last Admin: 05/30/24 21:16 Dose: 150 mg Magnesium Hydroxide (Milk Of Magnesia 30 Ml Oral.Susp) 30 ml PO DAILY PRN PRN Reason: Constipation Nicotine Polacrilex (Nicotine Polacrilex 2 Mg Gum) 2 mg BUCCAL Q2H PRN PRN Reason: Nicotine Cravings Trazodone HCl (Trazodone Hcl 50 Mg Tablet) 50 mg PO BEDTIME PRN PRN Reason: Insomnia Last Admin: 05/30/24 21:16 Dose: 50 mg Vitamin D (Cholecalciferol (Vitamin D3) 25 Mcg Tablet) 50 mcg PO DAILY [facility] Last Admin: 05/31/24 09:25 Dose: 50 mcg Allergies Allergies Allergy/AdvReac Type Severity Reaction Status Date / Time lithium Allergy Unknown Verified 01/13/24 18:08 divalproex sodium AdvReac Severe encephalopa Verified 05/08/24 12:34 [From Depakote] thy Assessment & Plan Assessment & Plan (1) Schizoaffective disorder, bipolar type: Status: Acute Code(s): F25.0 - Schizoaffective disorder, bipolar type (2) Diabetes mellitus: Status: Acute Code(s): E11.9 - Type 2 diabetes mellitus without complications Assessment and Plan: A1c on 04/28 5.9% Not on current medications (3) Hypertension: Status: Acute Code(s): I10 - Essential (primary) hypertension Assessment and Plan: not on current medications (4) Pancytopenia: Status: Acute Code(s): D61.818 - Other pancytopenia Assessment and Plan: seems to be improving after dc depakote CBC on 05/09/2024--> shows improvement in platelets 88 to 146, ANC also improved from 800 to 2300. normocytic anemia with Hgb 11, stable H&H. labs completed on 05/16 cbc with lower ANC 1500 (from 05/12 3200- this probably due to lowering lithium dose due to increase in BUN and Cr), Platelets trending up although slightly low 150, from 88 on 03/30/2023. Carbamazepine level 8.1 BUN 18, Cr 1.31 (improved from 05/12 BUN 20, Cr 1.46). (5) Chronic kidney disease (CKD): Status: Acute Code(s): N18.9 - Chronic kidney disease, unspecified Assessment and Plan: on low dose of lithium, closely monitoring renal function. Plan 03/23 keep same treatment 68 yo from a fpc with chronic psychotic disorder, refusing medication , elevated bp and disorganized and agitated behavior requiring psychiatric hospitalization and treatment not competent to sign cv. 01/14 continue to follow - gave lambs warning today- and he says the strategic intelligence officer will be a she- still refusing medications and quite psychotic takes alot of redirection to settle him poor adls- 01/15- Refuses meds, refuses hospitalist consult-second day File for Section Seven consideration on 01/17. Provide care as he will allow. 01/16: Depakote 250 mg bid Haldol, Lorazepam, Benadryl prn Section 7 to be filed 01/17 Message left for guardian. 01/17: Section Seven filed. . Court scheduled 01/26/24 Pt continues to refuse medicaitons. He is in need of full assist with ADL's and is incontinent. Pt transferred to [facility] this afternoon. 01/19/2024 Patient pending civil commitment loud agitated would not engage in any conversation with this writer producer non informational healing agitated verbally aggressive. Every attempt being made to get a copy of the patient's Servin order unclear why this has been so problematic. Encourage food and fluids 01/19 continue same treatment 01/21/24 Patient labile agitated intrusive close labs ordered in order to per to protect the community patient wandering into patient's rooms intrusive impulsive laying on another person's bed. Often hostile agitated posturing at times we are still pending copy of reported Servin order encourage p.o. compliance 01/22/2024 Patient did require physical hold escort him out of a room that he jumped in other patient's room and on their bed while there were in it. There was no physical harm and the patient did leave the room his markedly impulsive with poor judgment remains on close observation has intermittently taken Haldol liquid pending civil commitment treatment plan there is a question of Servin order 01/22 The patient had been more agitated. We review his Servin order and we are increasing the Abilify up to 15 mg p.o. daily and adding Haldol p.r.n. since it is in his role years order. We needed to give him some p.r.n. at 14:00. 01/23 The patient is grossly psychotic disrobing and sexually disinhibited we are starting Haldol 2 mg p.o. t.i.d. to target psychosis as per court order treatment over objection order. 01/24 The patient remains very agitated and angry disruptive so we are increasing the Haldol from 2 mg to 5 mg p.o. t.i.d. with a backup IM if the patient refused as per court order. 01/25 we have increased the Haldol but still he is very psychotic and restless. Today he refused his blood work. He needed to be physically held twice. 01/26 the patient remains agitated at times but his last IM backup was yesterday. We are going to increase Abilify up to 20 mg daily to target mood lability and psychosis. 01/29/2024: Increase frequency of prn doses from tid to prn q 6mrs. Poor insight and unable to care for self 02/08 pt has not take any of mood stabilizer. continues to have poor sleep, intrusive and combative requiring IM medications, increase haldol 10mg po TID, back up IM. Will add ativan 1mg po TID, also back up IM. Labs show elevated CK 2300, BUN 20, Cr 1.80, unclear baseline Cr as he does have CKD. Discussed with hospitalist Dr. Gama, to give IV fluids and monitor labs tomorrow. LFTs also elevated suspect this is secondary to elevation in CK and should trend down as CK goes down. 02/09 still agitated, creatinine and CPK slightly high as yesterday, he removed his IV line there is no big difference with IV hydration. We are changing his community role years to have more options since it is not working Abilify and Haldol 02/10 3 chemical restraints yesterday. appears more combative, and somewhat more confused. Will decrease amount of benzo and antihistamine given to him as it seems to be backfiring. did discuss with ICU attending, Dr. Whiteside possibility of transferring there but they would like us to try IV depakote and exhaust all resources prior to considering transfer. Pt did take depakote springkle 1000mg with apple sauce with much encourage. 02/11 continue tx. 02/12 continue same treatment 01/14 continue with Abilify and other court order medications, we are Nam[place] and the court order. 02/14 Team report improvement today with pt having greater comfort and less agitation. [id number] the staff reported that the patient had been less violent in the last 24 hours 02/16 continue tx. will check depakote and ammonia on 02/17 in AM. 02/17 continue regime and plan of care 02/26/2024: Continue current regimen as per court order 03/03 continue tx. lactulose for now as we don't have new ammonia level, but will try to chack labs. 03/16- continue medications, held clonidine patch for today due to low BP. repeat labs. 03/17-continue plan of care 03/18- continue tx 03/19 continue same treatment 03/20 waiting for CBC, basic metabolic panel and ammonia level. Today he nearly choked with a grape. We are going to change his diet to chopped 03/21 patient had a fall and he was assessed. No injuries as per CT scan of head and pelvis. Again he refused again his blood work vital signs within normal limits. 03/22 keep same treatment 03/23 keep same treatment 03 24 24 Continue plan of care Depakote Tegretol Haldol carbamazepine 03/25/2024 Repeat swallowing study ordered he is already on ground diet consider lowering Haldol versus Cogentin generally try to avoid older man 03/26 lowered Haldol to 7.5 p.o. b.i.d. 03/27 start Abilify Maintena 400 IM, later on we stopped it since he was over-sedated. 03/28 monitor vital signs and we will order blood work for tomorrow morning. 03/29 keep same treatment. We are deferring Abilify Maintena since the patient is still sedated and looks slightly delirious. He has refused blood work 03/31 continue current tx. less combative but no improvement in mentation. grossly disorganized and non sensical. 04/01: court ordered meds- team reviewing and optimizing same. 04/02 continue tx. 04/03 keep same treatment, so far he had been more compliant with some of the medications in the last 3 days. 04/04 start Abilify Maintena 400 mg IM 04/05 keep Haldol as prescribed 04/06 keep same treatment 04/08/24 continue current plan, regime 04/09/24 continue plan, CAT pending 04/10 continue same treatment 04/11 keep same treatment 04/12 lowering Haldol to 5 mg p.o. b.i.d. since the patient is over-sedated. 04/13 keep same treatment 04/14 agitated today, jumping around, dive off bed, crawling on all 4's, naked; took meds; now sleeping -floridly psychotic and writer producer thought best to let pt sleep 04/16 keep same treatment 04/17 Abilify Maintena 400 mg today and scheduled next for 30 days. 04/18 change Haldol to 5 mg p.o. t.i.d. with backup IM if he refuses p.o. 04/19 keep same treatment. 04/20 keep same treatment 04/21: verbally aggressive, restless. continue 1:1 and current Tx plan. 04/22: asleep, not easily rousable. restless and irritable last gwen, slept only 4 hours overnight. continue current mgmt. 04/23 add Cogentin 0.5 p.o. b.i.d. small improvement on his psychosis 04/24 continue with same treatment. 04/25 the patient fell again. Blood pressure had been okay even though that he is noncompliant with clonidine patch. We discussed the case with the medical team and they agreed that we can discontinue since he had been noncompliant of clonidine patch since March 09. Starting on propranolol 5 mg p.o. t.i.d. to target akathisia. 04/26 continue tx. 04/27 continue tx. 04/28 reviewing labs- neutropenia and thrombocytopenia worsening Plt 88, ANC 1000, consult to mohamud/onc as plan to continue depakote given that it has been very difficult to stabilize patient. Also, pt with hx of DM, not on any medications. Will obtain A1c. continues to present disorganized, delirium-like presentation. VS are stable, BP on lower side, no need for additional medication for BP. depakote level 100.1. Ammonia level wnl. Will decrease dose of depakote given pancytopenia. 04/29 will stop depakote (one as it may be contributing to pancytopenia, second because it has not shown significant improvement in mentation), continue carbamazepine, pt seen by oncology- appreciate recommendations- 04/30 continue tx. continue to monitor ANC, Plts. oncology/hem following. 05/01 speech and thought process more organized- which is improvement. sexualized remarks, unaware of unsteady gait and weakness. will repeat CBC- continue monitor pancytopenia. 05/02/24 On lithium monitor pancytopenia wbc 3.0 less confused 05/03/24 Increase lithium 300 bid monitor response watch for confusion 05/04 continue current tx, willc heck lithium level, renal function, TSH and repeat CBC on 06/10 at 7am. may need to increase haldol 05/05/24 Continue lithium and Tegretol encourage fluids check lithium TSH electrolytes continue to monitor CBC 05/06/2024 Patient seen chart reviewed case reviewed with nursing staff. Patient was somewhat more dysphoric today tried to engage in conversation had a difficult time. He slept about 4 hours did get Haldol the other day was offered p.o. Ativan p.r.n. encourage fluids with lithium avoid nonsteroidals no gross confusion or tremor 05/07 continue tx. pending labs for lithium level, TSH, cbc on 05/10. 05/08 continue tx. 05/09 pt appeared to have seizure, was given ativan 2mg IM, CMP does show elevation in BUN 23, and elevation on Cr 1.50, mild hyperkalemia 5.2. CBC shows improvement in platelets 88 to 146, ANC also improved from 800 to 2300. normocytic anemia with Hg 11, stable H&H. will decreased lithium 150mg po BID. Increase carbamazepine to 300mg po BID. Awaiting recommendation from neurology. 05/10 continue tx. monitor CMP- renal function. seen by neurology. 05/11 repeat cmp tomorrow, lowered lithium to 150mg po qhs. continue monitoring renal function. 05/12 Patient doing well, polite, organized in speech and behavior. Discussed his lab work and medication regimen which he understood. Principle Industrial Hygienist inquired about patient's awareness of the past months which he has little memory of but says I was out of my mind... And is happy to be organized. Says he wishes there was a piano on the unit; asks writer producer about his career inappropriate, organized way. -switch to Q 15 minute checks Reviewed labs and BUN/creatinine improved; alk-phos only mildly elevated Continue with current treatment plan 05/14/24- continue monitor renal function, will also check carbamazepine level, cbc, and cmp on 05/16/2024. 05/15 continue tx. labs scheduled for 05/16 05/16 labs completed on 05/16 cbc with lower ANC 1500 (from 05/12 3200- this probably due to lowering lithium dose due to increase in BUN and Cr), Platelets trending up although slightly low 150, from 88 on 03/30/2023. Carbamazepine level 8.1 BUN 18, Cr 1.31 (improved from 05/12 BUN 20, Cr 1.46). 05/17 continue tx. 05/18 continue tx. 05/19- much improved CTP! 05/20- CTP 05/21 continue tx. BP was low this morning- 98/55, HR78, will monitor oral intake and renal function. 05/22 continue tx. will check renal function 05/23 05/23 will postpone cmp for next week, not critical at this point and pt asked if they can be done next week as he has had multiple lab work recently. 05/24 continue tx. 05/25 continue tx. asks to speak with urologist about erectile dysfunction- will defer to OP. 05/28 continue tx. 05/29 continue tx. 05/30 continue tx. 05/31 continue tx. Reason for continued inpatient stay Substantial Risk for: inability to function Time Spent With Patient Time: Total time managing care of this patient today ____ minutes.
[2024-05-31 20:00] VITALS: BP 113/56; PULSE 60; RESP 16; TEMP 36.7; O2SAT 99
[2024-05-31] MEDS: Lithium Carbonate 300 MG TABLET 150 MG PO (20:15)
[2024-06-01 09:41] VITALS: BP 119/58; PULSE 70; RESP 18; TEMP 36.5; O2SAT 99
[2024-06-01] MEDS: Cholecalciferol (Vitamin D3) 25 MCG TABLET 50 MCG PO (09:43)
[2024-06-01] MEDS: HaloperidoL 5 MG TABLET PO ×3 (09:43→20:43)
[2024-06-01] MEDS: carBAMazepine 200 MG TABLET 300 MG PO ×2 (09:43→20:43)
[2024-06-01] MEDS: Benztropine Mesylate 0.5 MG TABLET PO ×2 (09:43→20:43)
[2024-06-01] MEDS: Ferrous Sulfate 324 MG TABLET.DR PO ×2 (09:43→20:43)
--- NOTE | 2024-06-01 10:49 | P.PNPSI_ITS ---
Subjective Subjective Date of Service: 06/01/24 Reason For Visit: Schizoaffective disorder Subjective Notes: Section 7 Interim History: Pt slept through the night. Pt has been visible on the unit. He was up in the morning. He had breakfast, did play some piano. He was smiling. He does report that he misses his sister and worries that she is older. He denied SI/HI. No overt psychosis or delusions noted. we agreed to do labs to check renal function and cbc on Tuesday06/04/2024 Review of Systems Review of Systems No overt seizure-like symptoms Yes Unobtainable due to mental status Mental Status Exam Mental Status Exam Narrative: Appearance: fair hygiene, casual clothing, dressing self on his own, in NAD Behavior: cooperative, calm; isolative Psychomotor: no agitation or retardation Speech: some problem with enunciation due to edentulous, regular rate/rhythm/volume, spontaneous. TP:linear TC: Thinking about diagnosis; decreased libido Mood: good Affect: congruent SI: denies HI: denies VH/AH: no overt signs Delusions: no overt Insight/judgment: Much improved Memory/cog: alert, oriented Diagnostics Vital Signs (24Hr): Vital Signs - 24 hr 05/31/24 20:00 06/01/24 09:41 Temperature 98.1 F 97.7 F Pulse Rate 60 70 Respiratory Rate 16 18 Blood Pressure 113/56 L 119/58 L Pulse Oximetry 99 99 Oxygen Delivery Method Room Air Room Air BMI result Body Mass Index 22.6 Labs 05/16/24 07:30 05/16/24 07:30 Imaging Radiology Impressions: ITS Impressions Chest X-Ray 03/20/24 08:33 IMPRESSION: Extremely limited exam. Only lateral views could be obtained. Suspect basilar airspace opacity, possibly pneumonia. Electronically signed by: Fortino Dumont MD 03/20/2024 10:10 AM EST RP Cervical Spine CT 03/21/24 11:18 IMPRESSION: 1. Allowing for suboptimal positioning, there is no CT evidence of acute cervical spine fracture or injury. 2. Degenerative changes with bulky ventral osteophytes spanning C4-C6, appearance in keeping with DISH. Electronically signed by: Fortino Dumont MD 03/21/2024 12:01 PM EST RP Head CT 03/21/24 11:18 IMPRESSION: 1. No acute intracranial abnormality. No acute fractures seen. 2. Stable chronic findings as discussed. Electronically signed by: Fortino Dumont MD 03/21/2024 11:54 AM EST RP Pelvis CT 03/21/24 11:18 IMPRESSION: 1. No acute bony abnormalities. No fractures. 2. Constipation with a large amount of stool in the rectum and sigmoid colon. 3. Mild thickening of the urinary bladder wall despite underdistention, nonspecific. Differential includes the detrusor hypertrophy, neurogenic bladder, or possibly cystitis. Electronically signed by: Fortino Dumont MD 03/21/2024 12:09 PM EST RP Head CT 03/28/24 09:37 IMPRESSION: No acute fracture, bony calvarium. No acute intracranial hemorrhage. Small vessel occlusive disease. Bifrontal bitemporal lobe atrophy. Electronically signed by: Juan Corrigan MD 03/28/2024 10:19 AM EST RP Head CT 04/25/24 12:22 IMPRESSION: No acute intracranial process seen. Electronically signed by: Ritchie Marte MD 04/25/2024 01:01 PM EST RP Medications Medications Current Medications Acetaminophen (Acetaminophen 325 Mg Tablet) 650 mg PO Q6H PRN PRN Reason: pain (1-10) Al Hydroxide/Mg Hydroxide (Magnesium Hydrox/Alum Hydrox 30 Ml Oral.Susp) 30 ml PO Q6H PRN PRN Reason: Heartburn/Nausea Aripiprazole (Aripiprazole Er 400 Mg Suser.Syr) 400 mg IM Q30D ON LICENSE OF [facility] Last Admin: 05/17/24 10:49 Dose: 400 mg Aspirin (Aspirin 81 Mg Tab.Chew) 81 mg PO DAILY ON LICENSE OF [facility] Last Admin: 04/23/24 08:34 Dose: 81 mg Benztropine Mesylate (Benztropine Mesylate 0.5 Mg Tablet) 0.5 mg PO BID ON LICENSE OF [facility] Last Admin: 06/01/24 09:43 Dose: 0.5 mg Carbamazepine (Carbamazepine 200 Mg Tablet) 300 mg PO BID ON LICENSE OF [facility] Last Admin: 06/01/24 09:43 Dose: 300 mg Ferrous Sulfate (Ferrous Sulfate 324 Mg Tablet.Dr) 324 mg PO BID ON LICENSE OF [facility] Last Admin: 06/01/24 09:43 Dose: 324 mg Haloperidol (Haloperidol 5 Mg Tablet) 5 mg PO TID KASIA Last Admin: 06/01/24 09:43 Dose: 5 mg Haloperidol Lactate (Haloperidol Lactate Oral Conc 10 Mg/5 Ml Oral.Conc) 5 mg PO Q6H PRN PRN Reason: Psychosis or severe agitation Last Admin: 05/05/24 02:37 Dose: 5 mg Haloperidol Lactate (Haloperidol Lactate 5 Mg/Ml Vial) 5 mg IM TID PRN PRN Reason: Refusal of Court PO Haldol Last Admin: 05/06/24 00:36 Dose: 5 mg Mcfarland Carbonate (Mcfarland Carbonate 300 Mg Tablet) 150 mg PO BEDTIME KASIA Last Admin: 05/31/24 20:15 Dose: 150 mg Magnesium Hydroxide (Milk Of Magnesia 30 Ml Oral.Susp) 30 ml PO DAILY PRN PRN Reason: Constipation Nicotine Polacrilex (Nicotine Polacrilex 2 Mg Gum) 2 mg BUCCAL Q2H PRN PRN Reason: Nicotine Cravings Trazodone HCl (Trazodone Hcl 50 Mg Tablet) 50 mg PO BEDTIME PRN PRN Reason: Insomnia Last Admin: 05/30/24 21:16 Dose: 50 mg Vitamin D (Cholecalciferol (Vitamin D3) 25 Mcg Tablet) 50 mcg PO DAILY KASIA Last Admin: 06/01/24 09:43 Dose: 50 mcg Allergies Allergies Allergy/AdvReac Type Severity Reaction Status Date / Time lithium Allergy Unknown Verified 01/13/24 18:08 divalproex sodium AdvReac Severe encephalopa Verified 05/08/24 12:34 [From Depakote] thy Assessment & Plan Assessment & Plan (1) Schizoaffective disorder, bipolar type: Status: Acute Code(s): F25.0 - Schizoaffective disorder, bipolar type (2) Diabetes mellitus: Status: Acute Code(s): E11.9 - Type 2 diabetes mellitus without complications Assessment and Plan: A1c on 04/28 5.9% Not on current medications (3) Hypertension: Status: Acute Code(s): I10 - Essential (primary) hypertension Assessment and Plan: not on current medications (4) Pancytopenia: Status: Acute Code(s): D61.818 - Other pancytopenia Assessment and Plan: seems to be improving after dc depakote CBC on 05/09/2024--> shows improvement in platelets 88 to 146, ANC also improved from 800 to 2300. normocytic anemia with Hgb 11, stable H&H. labs completed on 05/16 cbc with lower ANC 1500 (from 05/12 3200- this probably due to lowering lithium dose due to increase in BUN and Cr), Platelets trending up although slightly low 150, from 88 on 03/30/2023. Carbamazepine level 8.1 BUN 18, Cr 1.31 (improved from 05/12 BUN 20, Cr 1.46). (5) Chronic kidney disease (CKD): Status: Acute Code(s): N18.9 - Chronic kidney disease, unspecified Assessment and Plan: on low dose of lithium, closely monitoring renal function. Plan 03/23 keep same treatment 68 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 01/14 continue to follow - gave lambs warning today- and he says the placing judge will be a she- still refusing medications and quite psychotic takes alot of redirection to settle him poor adls- 01/15- Refuses meds, refuses hospitalist consult-second day File for Section Seven consideration on 01/17. Provide care as he will allow. 01/16: Depakote 250 mg bid Haldol, Lorazepam, Benadryl prn Section 7 to be filed 01/17 Message left for guardian. 01/17: Section Seven filed. . Court scheduled 01/26/24 Pt continues to refuse medicaitons. He is in need of full assist with ADL's and is incontinent. Pt transferred to [facility] this afternoon. 01/19/2024 Patient pending civil commitment loud agitated would not engage in any conversation with this publicity writer non informational healing agitated verbally aggressive. Every attempt being made to get a copy of the patient's Servin order unclear why this has been so problematic. Encourage food and fluids 01/19 continue same treatment 01/21/24 Patient labile agitated intrusive close labs ordered in order to per to protect the community patient wandering into patient's rooms intrusive impulsive laying on another person's bed. Often hostile agitated posturing at times we are still pending copy of reported Servin order encourage p.o. compliance 01/22/2024 Patient did require physical hold escort him out of a room that he jumped in other patient's room and on their bed while there were in it. There was no physical harm and the patient did leave the room his markedly impulsive with poor judgment remains on close observation has intermittently taken Haldol liquid pending civil commitment treatment plan there is a question of Servin order 01/22 The patient had been more agitated. We review his Servin order and we are increasing the Abilify up to 15 mg p.o. daily and adding Haldol p.r.n. since it is in his role years order. We needed to give him some p.r.n. at 14:00. 01/23 The patient is grossly psychotic disrobing and sexually disinhibited we are starting Haldol 2 mg p.o. t.i.d. to target psychosis as per court order treatment over objection order. 01/24 The patient remains very agitated and angry disruptive so we are increasing the Haldol from 2 mg to 5 mg p.o. t.i.d. with a backup IM if the patient refused as per court order. 01/25 we have increased the Haldol but still he is very psychotic and restless. Today he refused his blood work. He needed to be physically held twice. 01/26 the patient remains agitated at times but his last IM backup was yesterday. We are going to increase Abilify up to 20 mg daily to target mood lability and psychosis. 01/29/2024: Increase frequency of prn doses from tid to prn q 6mrs. Poor insight and unable to care for self 02/08 pt has not take any of mood stabilizer. continues to have poor sleep, intrusive and combative requiring IM medications, increase haldol 10mg po TID, back up IM. Will add ativan 1mg po TID, also back up IM. Labs show elevated CK 2300, BUN 20, Cr 1.80, unclear baseline Cr as he does have CKD. Discussed with hospitalist Dr. Gama, to give IV fluids and monitor labs tomorrow. LFTs also elevated suspect this is secondary to elevation in CK and should trend down as CK goes down. 02/09 still agitated, creatinine and CPK slightly high as yesterday, he removed his IV line there is no big difference with IV hydration. We are changing his community role years to have more options since it is not working Abilify and Haldol 02/10 3 chemical restraints yesterday. appears more combative, and somewhat more confused. Will decrease amount of benzo and antihistamine given to him as it seems to be backfiring. did discuss with ICU attending, Dr. Whiteside possibility of transferring there but they would like us to try IV depakote and exhaust all resources prior to considering transfer. Pt did take depakote springkle 1000mg with apple sauce with much encourage. 02/11 continue tx. 02/12 continue same treatment 01/14 continue with Abilify and other court order medications, we are Namenda and the court order. 02/14 Team report improvement today with pt having greater comfort and less agitation. [id number] the staff reported that the patient had been less violent in the last 24 hours 02/16 continue tx. will check depakote and ammonia on 02/17 in AM. 02/17 continue regime and plan of care 02/26/2024: Continue current regimen as per court order 03/03 continue tx. lactulose for now as we don't have new ammonia level, but will try to chack labs. 03/16- continue medications, held clonidine patch for today due to low BP. repeat labs. 03/17-continue plan of care 03/18- continue tx 03/19 continue same treatment 03/20 waiting for CBC, basic metabolic panel and ammonia level. Today he nearly choked with a grape. We are going to change his diet to chopped 03/21 patient had a fall and he was assessed. No injuries as per CT scan of head and pelvis. Again he refused again his blood work vital signs within normal limits. 03/22 keep same treatment 03/23 keep same treatment 03 24 24 Continue plan of care Depakote Tegretol Haldol carbamazepine 03/25/2024 Repeat swallowing study ordered he is already on ground diet consider lowering Haldol versus Cogentin generally try to avoid older man 03/26 lowered Haldol to 7.5 p.o. b.i.d. 03/27 start Abilify Maintena 400 IM, later on we stopped it since he was over- sedated. 03/28 monitor vital signs and we will order blood work for tomorrow morning. 03/29 keep same treatment. We are deferring Abilify Maintena since the patient is still sedated and looks slightly delirious. He has refused blood work 03/31 continue current tx. less combative but no improvement in mentation. grossly disorganized and non sensical. 04/01: court ordered meds- team reviewing and optimizing same. 04/02 continue tx. 04/03 keep same treatment, so far he had been more compliant with some of the medications in the last 3 days. 04/04 start Abilify Maintena 400 mg IM 04/05 keep Haldol as prescribed 04/06 keep same treatment 04/08/24 continue current plan, regime 04/09/24 continue plan, CAT pending 04/10 continue same treatment 04/11 keep same treatment 04/12 lowering Haldol to 5 mg p.o. b.i.d. since the patient is over-sedated. 04/13 keep same treatment 04/14 agitated today, jumping around, dive off bed, crawling on all 4's, naked; took meds; now sleeping -floridly psychotic and publicity writer thought best to let pt sleep 04/16 keep same treatment 04/17 Abilify Maintena 400 mg today and scheduled next for 30 days. 04/18 change Haldol to 5 mg p.o. t.i.d. with backup IM if he refuses p.o. 04/19 keep same treatment. 04/20 keep same treatment 04/21: verbally aggressive, restless. continue 1:1 and current Tx plan. 04/22: asleep, not easily rousable. restless and irritable last gwen, slept only 4 hours overnight. continue current mgmt. 04/23 add Cogentin 0.5 p.o. b.i.d. small improvement on his psychosis 04/24 continue with same treatment. 04/25 the patient fell again. Blood pressure had been okay even though that he is noncompliant with clonidine patch. We discussed the case with the medical team and they agreed that we can discontinue since he had been noncompliant of clonidine patch since March 09. Starting on propranolol 5 mg p.o. t.i.d. to target akathisia. 04/26 continue tx. 04/27 continue tx. 04/28 reviewing labs- neutropenia and thrombocytopenia worsening Plt 88, ANC 1000, consult to mohamud/onc as plan to continue depakote given that it has been very difficult to stabilize patient. Also, pt with hx of DM, not on any medications. Will obtain A1c. continues to present disorganized, delirium-like presentation. VS are stable, BP on lower side, no need for additional medication for BP. depakote level 100.1. Ammonia level wnl. Will decrease dose of depakote given pancytopenia. 04/29 will stop depakote (one as it may be contributing to pancytopenia, second because it has not shown significant improvement in mentation), continue carbamazepine, pt seen by oncology- appreciate recommendations- 04/30 continue tx. continue to monitor ANC, Plts. oncology/hem following. 05/01 speech and thought process more organized- which is improvement. sexualized remarks, unaware of unsteady gait and weakness. will repeat CBC- continue monitor pancytopenia. 05/02/24 On lithium monitor pancytopenia wbc 3.0 less confused 05/03/24 Increase lithium 300 bid monitor response watch for confusion 05/04 continue current tx, willc heck lithium level, renal function, TSH and repeat CBC on 06/10 at 7am. may need to increase haldol 05/05/24 Continue lithium and Tegretol encourage fluids check lithium TSH electrolytes continue to monitor CBC 05/06/2024 Patient seen chart reviewed case reviewed with nursing staff. Patient was somewhat more dysphoric today tried to engage in conversation had a difficult time. He slept about 4 hours did get Haldol the other day was offered p.o. Ativan p.r.n. encourage fluids with lithium avoid nonsteroidals no gross confusion or tremor 05/07 continue tx. pending labs for lithium level, TSH, cbc on 05/10. 05/08 continue tx. 05/09 pt appeared to have seizure, was given ativan 2mg IM, CMP does show elevation in BUN 23, and elevation on Cr 1.50, mild hyperkalemia 5.2. CBC shows improvement in platelets 88 to 146, ANC also improved from 800 to 2300. normocytic anemia with Hg 11, stable H&H. will decreased lithium 150mg po BID. Increase carbamazepine to 300mg po BID. Awaiting recommendation from neurology. 05/10 continue tx. monitor CMP- renal function. seen by neurology. 05/11 repeat cmp tomorrow, lowered lithium to 150mg po qhs. continue monitoring renal function. 05/12 Patient doing well, polite, organized in speech and behavior. Discussed his lab work and medication regimen which he understood. Welfare Eligibility Interviewer inquired about patient's awareness of the past months which he has little memory of but says I was out of my mind... And is happy to be organized. Says he wishes there was a piano on the unit; asks publicity writer about his career inappropriate, organized way. -switch to Q 15 minute checks Reviewed labs and BUN/creatinine improved; alk-phos only mildly elevated Continue with current treatment plan 05/14/24- continue monitor renal function, will also check carbamazepine level, cbc, and cmp on 05/16/2024. 05/15 continue tx. labs scheduled for 05/16 05/16 labs completed on 05/16 cbc with lower ANC 1500 (from 05/12 3200- this probably due to lowering lithium dose due to increase in BUN and Cr), Platelets trending up although slightly low 150, from 88 on 03/30/2023. Carbamazepine level 8.1 BUN 18, Cr 1.31 (improved from 05/12 BUN 20, Cr 1.46). 05/17 continue tx. 05/18 continue tx. 05/19- much improved CTP! 05/20- CTP 05/21 continue tx. BP was low this morning- 98/55, HR78, will monitor oral intake and renal function. 05/22 continue tx. will check renal function 05/23 05/23 will postpone cmp for next week, not critical at this point and pt asked if they can be done next week as he has had multiple lab work recently. 05/24 continue tx. 05/25 continue tx. asks to speak with urologist about erectile dysfunction- will defer to OP. 05/28 continue tx. 05/29 continue tx. 05/30 continue tx. 05/31 continue tx. 06/01 continue tx. Reason for continued inpatient stay Substantial Risk for: inability to function Time Spent With Patient Time: Total time managing care of this patient today ____ minutes.
[2024-06-01 20:00] VITALS: BP 135/69; PULSE 64; RESP 16; TEMP 36.5; O2SAT 98
[2024-06-01] MEDS: Lithium Carbonate 300 MG TABLET 150 MG PO (20:47)
[2024-06-02 08:00] VITALS: BP 132/64; PULSE 62; RESP 18; TEMP 36.6; O2SAT 97
[2024-06-02] MEDS: Benztropine Mesylate 0.5 MG TABLET PO ×2 (08:53→20:37)
[2024-06-02] MEDS: Cholecalciferol (Vitamin D3) 25 MCG TABLET 50 MCG PO (08:53)
[2024-06-02] MEDS: carBAMazepine 200 MG TABLET 300 MG PO ×2 (08:53→20:38)
[2024-06-02] MEDS: HaloperidoL 5 MG TABLET PO ×3 (08:53→20:37)
[2024-06-02] MEDS: Ferrous Sulfate 324 MG TABLET.DR PO ×2 (08:54→20:37)
--- NOTE | 2024-06-02 16:39 | P.PNPSI_ITS ---
Subjective Subjective Date of Service: 06/02/24 Reason For Visit: Schizoaffective disorder Interim History: pleasant, conversational. no complaints or requests. per staff, no issues. sleeping, eating. Mental Status Exam Mental Status Exam Narrative: Appearance: fair hygiene, casual clothing, dressing self on his own, in NAD Behavior: cooperative, calm; isolative Psychomotor: no agitation or retardation Speech: some problem with enunciation due to edentulous, regular rate/rhythm/volume, spontaneous. TP:linear TC: Thinking about diagnosis; ED Mood: good Affect: congruent SI: denies HI: denies VH/AH: no overt signs Delusions: no overt Insight/judgment: Much improved Memory/cog: alert, oriented Diagnostics Vital Signs (24Hr): Vital Signs - 24 hr 06/01/24 20:00 06/02/24 08:00 Temperature 97.7 F 97.8 F Pulse Rate 64 62 Respiratory Rate 16 18 Blood Pressure 135/69 132/64 Pulse Oximetry 98 97 Oxygen Delivery Method Room Air Room Air BMI result Body Mass Index 22.6 Labs 05/16/24 07:30 05/16/24 07:30 Imaging Radiology Impressions: ITS Impressions Chest X-Ray 03/20/24 08:33 IMPRESSION: Extremely limited exam. Only lateral views could be obtained. Suspect basilar airspace opacity, possibly pneumonia. Electronically signed by: Fortino Dumont MD 03/20/2024 10:10 AM EST RP Cervical Spine CT 03/21/24 11:18 IMPRESSION: 1. Allowing for suboptimal positioning, there is no CT evidence of acute cervical spine fracture or injury. 2. Degenerative changes with bulky ventral osteophytes spanning C4-C6, appearance in keeping with DISH. Electronically signed by: Fortino Dumont MD 03/21/2024 12:01 PM EST RP Head CT 03/21/24 11:18 IMPRESSION: 1. No acute intracranial abnormality. No acute fractures seen. 2. Stable chronic findings as discussed. Electronically signed by: Fortino Dumont MD 03/21/2024 11:54 AM EST RP Pelvis CT 03/21/24 11:18 IMPRESSION: 1. No acute bony abnormalities. No fractures. 2. Constipation with a large amount of stool in the rectum and sigmoid colon. 3. Mild thickening of the urinary bladder wall despite underdistention, nonspecific. Differential includes the detrusor hypertrophy, neurogenic bladder, or possibly cystitis. Electronically signed by: Fortino Dumont MD 03/21/2024 12:09 PM EST RP Head CT 03/28/24 09:37 IMPRESSION: No acute fracture, bony calvarium. No acute intracranial hemorrhage. Small vessel occlusive disease. Bifrontal bitemporal lobe atrophy. Electronically signed by: Juan Corrigan MD 03/28/2024 10:19 AM EST RP Head CT 04/25/24 12:22 IMPRESSION: No acute intracranial process seen. Electronically signed by: Ritchie Marte MD 04/25/2024 01:01 PM EST RP Medications Medications Current Medications Acetaminophen (Acetaminophen 325 Mg Tablet) 650 mg PO Q6H PRN PRN Reason: pain (1-10) Al Hydroxide/Mg Hydroxide (Magnesium Hydrox/Alum Hydrox 30 Ml Oral.Susp) 30 ml PO Q6H PRN PRN Reason: Heartburn/Nausea Aripiprazole (Aripiprazole Er 400 Mg Suser.Syr) 400 mg IM Q30D [facility] Last Admin: 05/17/24 10:49 Dose: 400 mg Aspirin (Aspirin 81 Mg Tab.Chew) 81 mg PO DAILY [facility] Last Admin: 04/23/24 08:34 Dose: 81 mg Benztropine Mesylate (Benztropine Mesylate 0.5 Mg Tablet) 0.5 mg PO BID [facility] Last Admin: 06/02/24 08:53 Dose: 0.5 mg Carbamazepine (Carbamazepine 200 Mg Tablet) 300 mg PO BID [facility] Last Admin: 06/02/24 08:53 Dose: 300 mg Ferrous Sulfate (Ferrous Sulfate 324 Mg Tablet.Dr) 324 mg PO BID [facility] Last Admin: 06/02/24 08:54 Dose: 324 mg Haloperidol (Haloperidol 5 Mg Tablet) 5 mg PO TID [facility] Last Admin: 06/02/24 14:33 Dose: 5 mg Haloperidol Lactate (Haloperidol Lactate Oral Conc 10 Mg/5 Ml Oral.Conc) 5 mg PO Q6H PRN PRN Reason: Psychosis or severe agitation Last Admin: 05/05/24 02:37 Dose: 5 mg Haloperidol Lactate (Haloperidol Lactate 5 Mg/Ml Vial) 5 mg IM TID PRN PRN Reason: Refusal of Court PO Haldol Last Admin: 05/06/24 00:36 Dose: [address] [place] Carbonate ([place] Carbonate 300 Mg Tablet) 150 mg PO BEDTIME KASIA Last Admin: 06/01/24 20:47 Dose: 150 mg Magnesium Hydroxide (Milk Of Magnesia 30 Ml Oral.Susp) 30 ml PO DAILY PRN PRN Reason: Constipation Nicotine Polacrilex (Nicotine Polacrilex 2 Mg Gum) 2 mg BUCCAL Q2H PRN PRN Reason: Nicotine Cravings Trazodone HCl (Trazodone Hcl 50 Mg Tablet) 50 mg PO BEDTIME PRN PRN Reason: Insomnia Last Admin: 05/30/24 21:16 Dose: 50 mg Vitamin D (Cholecalciferol (Vitamin D3) 25 Mcg Tablet) 50 mcg PO DAILY [facility] Last Admin: 06/02/24 08:53 Dose: 50 mcg Allergies Allergies Allergy/AdvReac Type Severity Reaction Status Date / Time lithium Allergy Unknown Verified 01/13/24 18:08 divalproex sodium AdvReac Severe encephalopa Verified 05/08/24 12:34 [From Depakote] thy Assessment & Plan Assessment & Plan (1) Schizoaffective disorder, bipolar type: Status: Acute Code(s): F25.0 - Schizoaffective disorder, bipolar type (2) Diabetes mellitus: Status: Acute Code(s): E11.9 - Type 2 diabetes mellitus without complications Assessment and Plan: A1c on 04/28 5.9% Not on current medications (3) Hypertension: Status: Acute Code(s): I10 - Essential (primary) hypertension Assessment and Plan: not on current medications (4) Pancytopenia: Status: Acute Code(s): D61.818 - Other pancytopenia Assessment and Plan: seems to be improving after dc depakote CBC on 05/09/2024--> shows improvement in platelets 88 to 146, ANC also improved from 800 to 2300. normocytic anemia with Hgb 11, stable H&H. labs completed on 05/16 cbc with lower ANC 1500 (from 05/12 3200- this probably due to lowering lithium dose due to increase in BUN and Cr), Platelets trending up although slightly low 150, from 88 on 03/30/2023. Carbamazepine level 8.1 BUN 18, Cr 1.31 (improved from 05/12 BUN 20, Cr 1.46). (5) Chronic kidney disease (CKD): Status: Acute Code(s): N18.9 - Chronic kidney disease, unspecified Assessment and Plan: on low dose of lithium, closely monitoring renal function. Plan 03/23 keep same treatment 68 yo from a skilled nursing with chronic psychotic disorder, refusing medication , elevated bp and disorganized and agitated behavior requiring psychiatric hospitalization and treatment not competent to sign cv. 01/14 continue to follow - gave lambs warning today- and he says the plastics plater will be a she- still refusing medications and quite psychotic takes alot of redirection to settle him poor adls- 01/15- Refuses meds, refuses hospitalist consult-second day File for Section Seven consideration on 01/17. Provide care as he will allow. 01/16: Depakote 250 mg bid Haldol, Lorazepam, Benadryl prn Section 7 to be filed 01/17 Message left for guardian. 01/17: Section Seven filed. . Court scheduled 01/26/24 Pt continues to refuse medicaitons. He is in need of full assist with ADL's and is incontinent. Pt transferred to [facility] this afternoon. 01/19/2024 Patient pending civil commitment loud agitated would not engage in any conversation with this commercial underwriter non informational healing agitated verbally aggressive. Every attempt being made to get a copy of the patient's Servin order unclear why this has been so problematic. Encourage food and fluids 01/19 continue same treatment 01/21/24 Patient labile agitated intrusive close labs ordered in order to per to protect the community patient wandering into patient's rooms intrusive impulsive laying on another person's bed. Often hostile agitated posturing at times we are still pending copy of reported Servin order encourage p.o. compliance 01/22/2024 Patient did require physical hold escort him out of a room that he jumped in other patient's room and on their bed while there were in it. There was no physical harm and the patient did leave the room his markedly impulsive with poor judgment remains on close observation has intermittently taken Haldol liquid pending civil commitment treatment plan there is a question of Servin order 01/22 The patient had been more agitated. We review his Servin order and we are increasing the Abilify up to 15 mg p.o. daily and adding Haldol p.r.n. since it is in his role years order. We needed to give him some p.r.n. at 14:00. 01/23 The patient is grossly psychotic disrobing and sexually disinhibited we are starting Haldol 2 mg p.o. t.i.d. to target psychosis as per court order treatment over objection order. 01/24 The patient remains very agitated and angry disruptive so we are increasing the Haldol from 2 mg to 5 mg p.o. t.i.d. with a backup IM if the patient refused as per court order. 01/25 we have increased the Haldol but still he is very psychotic and restless. Today he refused his blood work. He needed to be physically held twice. 01/26 the patient remains agitated at times but his last IM backup was yesterday. We are going to increase Abilify up to 20 mg daily to target mood lability and psychosis. 01/29/2024: Increase frequency of prn doses from tid to prn q 6mrs. Poor insight and unable to care for self 02/08 pt has not take any of mood stabilizer. continues to have poor sleep, intrusive and combative requiring IM medications, increase haldol 10mg po TID, back up IM. Will add ativan 1mg po TID, also back up IM. Labs show elevated CK 2300, BUN 20, Cr 1.80, unclear baseline Cr as he does have CKD. Discussed with hospitalist Dr. Gama, to give IV fluids and monitor labs tomorrow. LFTs also elevated suspect this is secondary to elevation in CK and should trend down as CK goes down. 02/09 still agitated, creatinine and CPK slightly high as yesterday, he removed his IV line there is no big difference with IV hydration. We are changing his community role years to have more options since it is not working Abilify and Haldol 02/10 3 chemical restraints yesterday. appears more combative, and somewhat more confused. Will decrease amount of benzo and antihistamine given to him as it seems to be backfiring. did discuss with ICU attending, Dr. Whiteside possibility of transferring there but they would like us to try IV depakote and exhaust all resources prior to considering transfer. Pt did take depakote springkle 1000mg with apple sauce with much encourage. 02/11 continue tx. 02/12 continue same treatment 01/14 continue with Abilify and other court order medications, we are Nam[place] and the court order. 02/14 Team report improvement today with pt having greater comfort and less agitation. [id number] the staff reported that the patient had been less violent in the last 24 hours 02/16 continue tx. will check depakote and ammonia on 02/17 in AM. 02/17 continue regime and plan of care 02/26/2024: Continue current regimen as per court order 03/03 continue tx. lactulose for now as we don't have new ammonia level, but will try to chack labs. 03/16- continue medications, held clonidine patch for today due to low BP. repeat labs. 03/17-continue plan of care 03/18- continue tx 03/19 continue same treatment 03/20 waiting for CBC, basic metabolic panel and ammonia level. Today he nearly choked with a grape. We are going to change his diet to chopped 03/21 patient had a fall and he was assessed. No injuries as per CT scan of head and pelvis. Again he refused again his blood work vital signs within normal limits. 03/22 keep same treatment 03/23 keep same treatment 03 24 24 Continue plan of care Depakote Tegretol Haldol carbamazepine 03/25/2024 Repeat swallowing study ordered he is already on ground diet consider lowering Haldol versus Cogentin generally try to avoid older man 03/26 lowered Haldol to 7.5 p.o. b.i.d. 03/27 start Abilify Maintena 400 IM, later on we stopped it since he was over- sedated. 03/28 monitor vital signs and we will order blood work for tomorrow morning. 03/29 keep same treatment. We are deferring Abilify Maintena since the patient is still sedated and looks slightly delirious. He has refused blood work 03/31 continue current tx. less combative but no improvement in mentation. grossly disorganized and non sensical. 04/01: court ordered meds- team reviewing and optimizing same. 04/02 continue tx. 04/03 keep same treatment, so far he had been more compliant with some of the medications in the last 3 days. 04/04 start Abilify Maintena 400 mg IM 04/05 keep Haldol as prescribed 04/06 keep same treatment 04/08/24 continue current plan, regime 04/09/24 continue plan, CAT pending 04/10 continue same treatment 04/11 keep same treatment 04/12 lowering Haldol to 5 mg p.o. b.i.d. since the patient is over-sedated. 04/13 keep same treatment 04/14 agitated today, jumping around, dive off bed, crawling on all 4's, naked; took meds; now sleeping -floridly psychotic and commercial underwriter thought best to let pt sleep 04/16 keep same treatment 04/17 Abilify Maintena 400 mg today and scheduled next for 30 days. 04/18 change Haldol to 5 mg p.o. t.i.d. with backup IM if he refuses p.o. 04/19 keep same treatment. 04/20 keep same treatment 04/21: verbally aggressive, restless. continue 1:1 and current Tx plan. 04/22: asleep, not easily rousable. restless and irritable last gwen, slept only 4 hours overnight. continue current mgmt. 04/23 add Cogentin 0.5 p.o. b.i.d. small improvement on his psychosis 04/24 continue with same treatment. 04/25 the patient fell again. Blood pressure had been okay even though that he is noncompliant with clonidine patch. We discussed the case with the medical team and they agreed that we can discontinue since he had been noncompliant of clonidine patch since March 09. Starting on propranolol 5 mg p.o. t.i.d. to target akathisia. 04/26 continue tx. 04/27 continue tx. 04/28 reviewing labs- neutropenia and thrombocytopenia worsening Plt 88, ANC 1000, consult to mohamud/onc as plan to continue depakote given that it has been very difficult to stabilize patient. Also, pt with hx of DM, not on any medications. Will obtain A1c. continues to present disorganized, delirium-like presentation. VS are stable, BP on lower side, no need for additional medication for BP. depakote level 100.1. Ammonia level wnl. Will decrease dose of depakote given pancytopenia. 04/29 will stop depakote (one as it may be contributing to pancytopenia, second because it has not shown significant improvement in mentation), continue carbamazepine, pt seen by oncology- appreciate recommendations- 04/30 continue tx. continue to monitor ANC, Plts. oncology/hem following. 05/01 speech and thought process more organized- which is improvement. sexualized remarks, unaware of unsteady gait and weakness. will repeat CBC- continue monitor pancytopenia. 05/02/24 On lithium monitor pancytopenia wbc 3.0 less confused 05/03/24 Increase lithium 300 bid monitor response watch for confusion 05/04 continue current tx, willc heck lithium level, renal function, TSH and repeat CBC on 06/10 at 7am. may need to increase haldol 05/05/24 Continue lithium and Tegretol encourage fluids check lithium TSH electrolytes continue to monitor CBC 05/06/2024 Patient seen chart reviewed case reviewed with nursing staff. Patient was somewhat more dysphoric today tried to engage in conversation had a difficult time. He slept about 4 hours did get Haldol the other day was offered p.o. Ativan p.r.n. encourage fluids with lithium avoid nonsteroidals no gross confusion or tremor 05/07 continue tx. pending labs for lithium level, TSH, cbc on 05/10. 05/08 continue tx. 05/09 pt appeared to have seizure, was given ativan 2mg IM, CMP does show elevation in BUN 23, and elevation on Cr 1.50, mild hyperkalemia 5.2. CBC shows improvement in platelets 88 to 146, ANC also improved from 800 to 2300. normocytic anemia with Hg 11, stable H&H. will decreased lithium 150mg po BID. Increase carbamazepine to 300mg po BID. Awaiting recommendation from neurology. 05/10 continue tx. monitor CMP- renal function. seen by neurology. 05/11 repeat cmp tomorrow, lowered lithium to 150mg po qhs. continue monitoring renal function. 05/12 Patient doing well, polite, organized in speech and behavior. Discussed his lab work and medication regimen which he understood. Budget Assistant inquired about patient's awareness of the past months which he has little memory of but says I was out of my mind... And is happy to be organized. Says he wishes there was a piano on the unit; asks commercial underwriter about his career inappropriate, organized way. -switch to Q 15 minute checks Reviewed labs and BUN/creatinine improved; alk-phos only mildly elevated Continue with current treatment plan 05/14/24- continue monitor renal function, will also check carbamazepine level, cbc, and cmp on 05/16/2024. 05/15 continue tx. labs scheduled for 05/16 05/16 labs completed on 05/16 cbc with lower ANC 1500 (from 05/12 3200- this probably due to lowering lithium dose due to increase in BUN and Cr), Platelets trending up although slightly low 150, from 88 on 03/30/2023. Carbamazepine level 8.1 BUN 18, Cr 1.31 (improved from 05/12 BUN 20, Cr 1.46). 05/17 continue tx. 05/18 continue tx. 05/19- much improved CTP! 05/20- CTP 05/21 continue tx. BP was low this morning- 98/55, HR78, will monitor oral intake and renal function. 05/22 continue tx. will check renal function 05/23 05/23 will postpone cmp for next week, not critical at this point and pt asked if they can be done next week as he has had multiple lab work recently. 05/24 continue tx. 05/25 continue tx. asks to speak with urologist about erectile dysfunction- will defer to OP. 05/28 continue tx. 05/29 continue tx. 05/30 continue tx. 05/31 continue tx. 06/01 continue tx. 06/02: stable. asked to address ED, deferred to outpt. no questions or concerns otherwise. Reason for continued inpatient stay Substantial Risk for: inability to function Time Spent With Patient Time: Total time managing care of this patient today ____ minutes.
[2024-06-02 20:00] VITALS: BP 136/82; PULSE 73; RESP 16; TEMP 36.8; O2SAT 99
[2024-06-02] MEDS: Lithium Carbonate 300 MG TABLET 150 MG PO (20:39)
[2024-06-03 08:00] VITALS: BP 142/72; PULSE 75; RESP 18; TEMP 36.8; O2SAT 100
[2024-06-03] MEDS: carBAMazepine 200 MG TABLET 300 MG PO ×2 (08:47→20:50)
[2024-06-03] MEDS: Benztropine Mesylate 0.5 MG TABLET PO ×2 (08:48→20:52)
[2024-06-03] MEDS: Ferrous Sulfate 324 MG TABLET.DR PO ×2 (08:48→20:52)
[2024-06-03] MEDS: Cholecalciferol (Vitamin D3) 25 MCG TABLET 50 MCG PO (08:48)
[2024-06-03] MEDS: HaloperidoL 5 MG TABLET PO ×3 (08:48→20:52)
[2024-06-03 20:00] VITALS: BP 127/61; PULSE 78; RESP 18; TEMP 36.3; O2SAT 98
--- NOTE | 2024-06-03 20:28 | P.PNPSI_ITS ---
Subjective Subjective Date of Service: 06/03/24 Reason For Visit: Schizoaffective disorder Interim History: sleeping, not rousing himself to loud voice. later observed eating in the milieu. per staff, no issues. playing the piano. Mental Status Exam Mental Status Exam Narrative: Appearance: fair hygiene, casual clothing, dressing self on his own, in NAD Behavior: calm; isolative Psychomotor: no agitation or retardation Speech: none observed TP: not observed TC: not observed Mood: not assessed Affect: calm, non-labile SI: none expressed HI: none expressed VH/AH: no overt signs Delusions: no overt Insight/judgment: Much improved Memory/cog: alert, oriented Diagnostics Vital Signs (24Hr): Vital Signs - 24 hr 06/03/24 08:00 Temperature 98.2 F Pulse Rate 75 Respiratory Rate 18 Blood Pressure 142/72 H Pulse Oximetry 100 Oxygen Delivery Method Room Air BMI result Body Mass Index 22.6 Labs 05/16/24 07:30 05/16/24 07:30 Imaging Radiology Impressions: ITS Impressions Chest X-Ray 03/20/24 08:33 IMPRESSION: Extremely limited exam. Only lateral views could be obtained. Suspect basilar airspace opacity, possibly pneumonia. Electronically signed by: Fortino Dumont MD 03/20/2024 10:10 AM EST RP Cervical Spine CT 03/21/24 11:18 IMPRESSION: 1. Allowing for suboptimal positioning, there is no CT evidence of acute cervical spine fracture or injury. 2. Degenerative changes with bulky ventral osteophytes spanning C4-C6, appearance in keeping with DISH. Electronically signed by: Fortino Dumont MD 03/21/2024 12:01 PM EST RP Head CT 03/21/24 11:18 IMPRESSION: 1. No acute intracranial abnormality. No acute fractures seen. 2. Stable chronic findings as discussed. Electronically signed by: Fortino Dumont MD 03/21/2024 11:54 AM EST RP Pelvis CT 03/21/24 11:18 IMPRESSION: 1. No acute bony abnormalities. No fractures. 2. Constipation with a large amount of stool in the rectum and sigmoid colon. 3. Mild thickening of the urinary bladder wall despite underdistention, nonspecific. Differential includes the detrusor hypertrophy, neurogenic bladder, or possibly cystitis. Electronically signed by: Fortino Dumont MD 03/21/2024 12:09 PM EST RP Head CT 03/28/24 09:37 IMPRESSION: No acute fracture, bony calvarium. No acute intracranial hemorrhage. Small vessel occlusive disease. Bifrontal bitemporal lobe atrophy. Electronically signed by: Juan Corrigan MD 03/28/2024 10:19 AM EST RP Head CT 04/25/24 12:22 IMPRESSION: No acute intracranial process seen. Electronically signed by: Ritchie Marte MD 04/25/2024 01:01 PM EST RP Medications Medications Current Medications Acetaminophen (Acetaminophen 325 Mg Tablet) 650 mg PO Q6H PRN PRN Reason: pain (1-10) Al Hydroxide/Mg Hydroxide (Magnesium Hydrox/Alum Hydrox 30 Ml Oral.Susp) 30 ml PO Q6H PRN PRN Reason: Heartburn/Nausea Aripiprazole (Aripiprazole Er 400 Mg Suser.Syr) 400 mg IM Q30D COUNTS INCLUDE 234 BEDS AT THE [facility] Last Admin: 05/17/24 10:49 Dose: 400 mg Aspirin (Aspirin 81 Mg Tab.Chew) 81 mg PO DAILY COUNTS INCLUDE 234 BEDS AT THE [facility] Last Admin: 04/23/24 08:34 Dose: 81 mg Benztropine Mesylate (Benztropine Mesylate 0.5 Mg Tablet) 0.5 mg PO BID COUNTS INCLUDE 234 BEDS AT THE [facility] Last Admin: 06/03/24 08:48 Dose: 0.5 mg Carbamazepine (Carbamazepine 200 Mg Tablet) 300 mg PO BID COUNTS INCLUDE 234 BEDS AT THE [facility] Last Admin: 06/03/24 08:47 Dose: 300 mg Ferrous Sulfate (Ferrous Sulfate 324 Mg Tablet.Dr) 324 mg PO BID COUNTS INCLUDE 234 BEDS AT THE [facility] Last Admin: 06/03/24 08:48 Dose: 324 mg Haloperidol (Haloperidol 5 Mg Tablet) 5 mg PO TID COUNTS INCLUDE 234 BEDS AT THE [facility] Last Admin: 06/03/24 14:59 Dose: 5 mg Haloperidol Lactate (Haloperidol Lactate Oral Conc 10 Mg/5 Ml Oral.Conc) 5 mg PO Q6H PRN PRN Reason: Psychosis or severe agitation Last Admin: 05/05/24 02:37 Dose: 5 mg Haloperidol Lactate (Haloperidol Lactate 5 Mg/Ml Vial) 5 mg IM TID PRN PRN Reason: Refusal of Court PO Haldol Last Admin: 05/06/24 00:36 Dose: 5 mg [place] Carbonate ([place] Carbonate 300 Mg Tablet) 150 mg PO BEDTIME KASIA Last Admin: 06/02/24 20:39 Dose: 150 mg Magnesium Hydroxide (Milk Of Magnesia 30 Ml Oral.Susp) 30 ml PO DAILY PRN PRN Reason: Constipation Nicotine Polacrilex (Nicotine Polacrilex 2 Mg Gum) 2 mg BUCCAL Q2H PRN PRN Reason: Nicotine Cravings Trazodone HCl (Trazodone Hcl 50 Mg Tablet) 50 mg PO BEDTIME PRN PRN Reason: Insomnia Last Admin: 05/30/24 21:16 Dose: 50 mg Vitamin D (Cholecalciferol (Vitamin D3) 25 Mcg Tablet) 50 mcg PO DAILY KASIA Last Admin: 06/03/24 08:48 Dose: 50 mcg Allergies Allergies Allergy/AdvReac Type Severity Reaction Status Date / Time lithium Allergy Unknown Verified 01/13/24 18:08 divalproex sodium AdvReac Severe encephalopa Verified 05/08/24 12:34 [From Depakote] thy Assessment & Plan Assessment & Plan (1) Schizoaffective disorder, bipolar type: Status: Acute Code(s): F25.0 - Schizoaffective disorder, bipolar type (2) Diabetes mellitus: Status: Acute Code(s): E11.9 - Type 2 diabetes mellitus without complications Assessment and Plan: A1c on 04/28 5.9% Not on current medications (3) Hypertension: Status: Acute Code(s): I10 - Essential (primary) hypertension Assessment and Plan: not on current medications (4) Pancytopenia: Status: Acute Code(s): D61.818 - Other pancytopenia Assessment and Plan: seems to be improving after dc depakote CBC on 05/09/2024--> shows improvement in platelets 88 to 146, ANC also improved from 800 to 2300. normocytic anemia with Hgb 11, stable H&H. labs completed on 05/16 cbc with lower ANC 1500 (from 05/12 3200- this probably due to lowering lithium dose due to increase in BUN and Cr), Platelets trending up although slightly low 150, from 88 on 03/30/2023. Carbamazepine level 8.1 BUN 18, Cr 1.31 (improved from 05/12 BUN 20, Cr 1.46). (5) Chronic kidney disease (CKD): Status: Acute Code(s): N18.9 - Chronic kidney disease, unspecified Assessment and Plan: on low dose of lithium, closely monitoring renal function. Plan 03/23 keep same treatment 68 yo from a alf with chronic psychotic disorder, refusing medication , elevated bp and disorganized and agitated behavior requiring psychiatric hospitalization and treatment not competent to sign cv. 01/14 continue to follow - gave lambs warning today- and he says the incident response manager will be a she- still refusing medications and quite psychotic takes alot of redirection to settle him poor adls- 01/15- Refuses meds, refuses hospitalist consult-second day File for Section Seven consideration on 01/17. Provide care as he will allow. 01/16: Depakote 250 mg bid Haldol, Lorazepam, Benadryl prn Section 7 to be filed 01/17 Message left for guardian. 01/17: Section Seven filed. . Court scheduled 01/26/24 Pt continues to refuse medicaitons. He is in need of full assist with ADL's and is incontinent. Pt transferred to [facility] this afternoon. 01/19/2024 Patient pending civil commitment loud agitated would not engage in any conversation with this speech writer non informational healing agitated verbally aggressive. Every attempt being made to get a copy of the patient's Servin order unclear why this has been so problematic. Encourage food and fluids 01/19 continue same treatment 01/21/24 Patient labile agitated intrusive close labs ordered in order to per to protect the community patient wandering into patient's rooms intrusive impulsive laying on another person's bed. Often hostile agitated posturing at times we are still pending copy of reported Servin order encourage p.o. compliance 01/22/2024 Patient did require physical hold escort him out of a room that he jumped in other patient's room and on their bed while there were in it. There was no physical harm and the patient did leave the room his markedly impulsive with poor judgment remains on close observation has intermittently taken Haldol liquid pending civil commitment treatment plan there is a question of Servin order 01/22 The patient had been more agitated. We review his Servin order and we are increasing the Abilify up to 15 mg p.o. daily and adding Haldol p.r.n. since it is in his role years order. We needed to give him some p.r.n. at 14:00. 01/23 The patient is grossly psychotic disrobing and sexually disinhibited we are starting Haldol 2 mg p.o. t.i.d. to target psychosis as per court order treatment over objection order. 01/24 The patient remains very agitated and angry disruptive so we are increasing the Haldol from 2 mg to 5 mg p.o. t.i.d. with a backup IM if the patient refused as per court order. 01/25 we have increased the Haldol but still he is very psychotic and restless. Today he refused his blood work. He needed to be physically held twice. 01/26 the patient remains agitated at times but his last IM backup was yesterday. We are going to increase Abilify up to 20 mg daily to target mood lability and psychosis. 01/29/2024: Increase frequency of prn doses from tid to prn q 6mrs. Poor insight and unable to care for self 02/08 pt has not take any of mood stabilizer. continues to have poor sleep, intrusive and combative requiring IM medications, increase haldol 10mg po TID, back up IM. Will add ativan 1mg po TID, also back up IM. Labs show elevated CK 2300, BUN 20, Cr 1.80, unclear baseline Cr as he does have CKD. Discussed with hospitalist Dr. Gama, to give IV fluids and monitor labs tomorrow. LFTs also elevated suspect this is secondary to elevation in CK and should trend down as CK goes down. 02/09 still agitated, creatinine and CPK slightly high as yesterday, he removed his IV line there is no big difference with IV hydration. We are changing his community role years to have more options since it is not working Abilify and Haldol 02/10 3 chemical restraints yesterday. appears more combative, and somewhat more confused. Will decrease amount of benzo and antihistamine given to him as it seems to be backfiring. did discuss with ICU attending, Dr. Whiteside possibility of transferring there but they would like us to try IV depakote and exhaust all resources prior to considering transfer. Pt did take depakote springkle 1000mg with apple sauce with much encourage. 02/11 continue tx. 02/12 continue same treatment 01/14 continue with Abilify and other court order medications, we are Nam[place] and the court order. 02/14 Team report improvement today with pt having greater comfort and less agitation. [id number] the staff reported that the patient had been less violent in the last 24 hours 02/16 continue tx. will check depakote and ammonia on 02/17 in AM. 02/17 continue regime and plan of care 02/26/2024: Continue current regimen as per court order 03/03 continue tx. lactulose for now as we don't have new ammonia level, but will try to chack labs. 03/16- continue medications, held clonidine patch for today due to low BP. repeat labs. 03/17-continue plan of care 03/18- continue tx 03/19 continue same treatment 03/20 waiting for CBC, basic metabolic panel and ammonia level. Today he nearly choked with a grape. We are going to change his diet to chopped 03/21 patient had a fall and he was assessed. No injuries as per CT scan of head and pelvis. Again he refused again his blood work vital signs within normal limits. 03/22 keep same treatment 03/23 keep same treatment 03 24 24 Continue plan of care Depakote Tegretol Haldol carbamazepine 03/25/2024 Repeat swallowing study ordered he is already on ground diet consider lowering Haldol versus Cogentin generally try to avoid older man 03/26 lowered Haldol to 7.5 p.o. b.i.d. 03/27 start Abilify Maintena 400 IM, later on we stopped it since he was over- sedated. 03/28 monitor vital signs and we will order blood work for tomorrow morning. 03/29 keep same treatment. We are deferring Abilify Maintena since the patient is still sedated and looks slightly delirious. He has refused blood work 03/31 continue current tx. less combative but no improvement in mentation. grossly disorganized and non sensical. 04/01: court ordered meds- team reviewing and optimizing same. 04/02 continue tx. 04/03 keep same treatment, so far he had been more compliant with some of the medications in the last 3 days. 04/04 start Abilify Maintena 400 mg IM 04/05 keep Haldol as prescribed 04/06 keep same treatment 04/08/24 continue current plan, regime 04/09/24 continue plan, CAT pending 04/10 continue same treatment 04/11 keep same treatment 04/12 lowering Haldol to 5 mg p.o. b.i.d. since the patient is over-sedated. 04/13 keep same treatment 04/14 agitated today, jumping around, dive off bed, crawling on all 4's, naked; took meds; now sleeping -floridly psychotic and speech writer thought best to let pt sleep 04/16 keep same treatment 04/17 Abilify Maintena 400 mg today and scheduled next for 30 days. 04/18 change Haldol to 5 mg p.o. t.i.d. with backup IM if he refuses p.o. 04/19 keep same treatment. 04/20 keep same treatment 04/21: verbally aggressive, restless. continue 1:1 and current Tx plan. 04/22: asleep, not easily rousable. restless and irritable last gwen, slept only 4 hours overnight. continue current mgmt. 04/23 add Cogentin 0.5 p.o. b.i.d. small improvement on his psychosis 04/24 continue with same treatment. 04/25 the patient fell again. Blood pressure had been okay even though that he is noncompliant with clonidine patch. We discussed the case with the medical team and they agreed that we can discontinue since he had been noncompliant of clonidine patch since March 09. Starting on propranolol 5 mg p.o. t.i.d. to target akathisia. 04/26 continue tx. 04/27 continue tx. 04/28 reviewing labs- neutropenia and thrombocytopenia worsening Plt 88, ANC 1000, consult to mohamud/onc as plan to continue depakote given that it has been very difficult to stabilize patient. Also, pt with hx of DM, not on any medications. Will obtain A1c. continues to present disorganized, delirium-like presentation. VS are stable, BP on lower side, no need for additional medication for BP. depakote level 100.1. Ammonia level wnl. Will decrease dose of depakote given pancytopenia. 04/29 will stop depakote (one as it may be contributing to pancytopenia, second because it has not shown significant improvement in mentation), continue carbamazepine, pt seen by oncology- appreciate recommendations- 04/30 continue tx. continue to monitor ANC, Plts. oncology/hem following. 05/01 speech and thought process more organized- which is improvement. sexualized remarks, unaware of unsteady gait and weakness. will repeat CBC- continue monitor pancytopenia. 05/02/24 On lithium monitor pancytopenia wbc 3.0 less confused 05/03/24 Increase lithium 300 bid monitor response watch for confusion 05/04 continue current tx, willc heck lithium level, renal function, TSH and repeat CBC on 06/10 at 7am. may need to increase haldol 05/05/24 Continue lithium and Tegretol encourage fluids check lithium TSH electrolytes continue to monitor CBC 05/06/2024 Patient seen chart reviewed case reviewed with nursing staff. Patient was somewhat more dysphoric today tried to engage in conversation had a difficult time. He slept about 4 hours did get Haldol the other day was offered p.o. Ativan p.r.n. encourage fluids with lithium avoid nonsteroidals no gross confusion or tremor 05/07 continue tx. pending labs for lithium level, TSH, cbc on 05/10. 05/08 continue tx. 05/09 pt appeared to have seizure, was given ativan 2mg IM, CMP does show elevation in BUN 23, and elevation on Cr 1.50, mild hyperkalemia 5.2. CBC shows improvement in platelets 88 to 146, ANC also improved from 800 to 2300. normocytic anemia with Hg 11, stable H&H. will decreased lithium 150mg po BID. Increase carbamazepine to 300mg po BID. Awaiting recommendation from neurology. 05/10 continue tx. monitor CMP- renal function. seen by neurology. 05/11 repeat cmp tomorrow, lowered lithium to 150mg po qhs. continue monitoring renal function. 05/12 Patient doing well, polite, organized in speech and behavior. Discussed his lab work and medication regimen which he understood. Edi Analyst inquired about patient's awareness of the past months which he has little memory of but says I was out of my mind... And is happy to be organized. Says he wishes there was a piano on the unit; asks speech writer about his career inappropriate, organized way. -switch to Q 15 minute checks Reviewed labs and BUN/creatinine improved; alk-phos only mildly elevated Continue with current treatment plan 05/14/24- continue monitor renal function, will also check carbamazepine level, cbc, and cmp on 05/16/2024. 05/15 continue tx. labs scheduled for 05/16 05/16 labs completed on 05/16 cbc with lower ANC 1500 (from 05/12 3200- this probably due to lowering lithium dose due to increase in BUN and Cr), Platelets trending up although slightly low 150, from 88 on 03/30/2023. Carbamazepine level 8.1 BUN 18, Cr 1.31 (improved from 05/12 BUN 20, Cr 1.46). 05/17 continue tx. 05/18 continue tx. 05/19- much improved CTP! 05/20- CTP 05/21 continue tx. BP was low this morning- 98/55, HR78, will monitor oral intake and renal function. 05/22 continue tx. will check renal function 05/23 05/23 will postpone cmp for next week, not critical at this point and pt asked if they can be done next week as he has had multiple lab work recently. 05/24 continue tx. 05/25 continue tx. asks to speak with urologist about erectile dysfunction- will defer to OP. 05/28 continue tx. 05/29 continue tx. 05/30 continue tx. 05/31 continue tx. 06/01 continue tx. 06/02: stable. asked to address ED, deferred to outpt. no questions or concerns otherwise. 06/03: stable. continue current mgmt. Reason for continued inpatient stay Substantial Risk for: inability to function Time Spent With Patient Time: Total time managing care of this patient today ____ minutes.
[2024-06-03] MEDS: Lithium Carbonate 300 MG TABLET 150 MG PO (20:51)
[2024-06-04 07:55] VITALS: BP 120/66; PULSE 64; RESP 16; TEMP 36.8; O2SAT 96
[2024-06-04] MEDS: Cholecalciferol (Vitamin D3) 25 MCG TABLET 50 MCG PO (08:16)
[2024-06-04] MEDS: HaloperidoL 5 MG TABLET PO ×3 (08:17→21:19)
[2024-06-04] MEDS: carBAMazepine 200 MG TABLET 300 MG PO ×2 (08:17→21:18)
[2024-06-04] MEDS: Benztropine Mesylate 0.5 MG TABLET PO ×2 (08:22→21:18)
[2024-06-04] MEDS: Ferrous Sulfate 324 MG TABLET.DR PO (08:23)
--- NOTE | 2024-06-04 08:41 | HO.PSYCHPN ---
Subjective Subjective Date of Service: 06/04/24 Reason For Visit: Schizoaffective disorder Subjective Notes: Section 7 Interim History: Pt slept through the night. He is visible on the unit, pleasant on approach. He reports doing well, but hopes to be discharged soon to facility. No SI/HI. No overt psychosis or delusional content. taking meds as prescribed. Labs completed today- CBC normocytic enemia, slightly elevated w/in normal range MCV. Plts 153, ANC 1400. CMP elevation BUN 24, Cr 1.56, creatinine clearance 45.8. Mental Status Exam Mental Status Exam Narrative: Appearance: fair hygiene, casual clothing, dressing self on his own, in NAD Behavior: calm; isolative Psychomotor: no agitation or retardation Speech: none observed TP: not observed TC: not observed Mood: not assessed Affect: calm, non-labile SI: none expressed HI: none expressed VH/AH: no overt signs Delusions: no overt Insight/judgment:improved, but still impaired at baseline. Memory/cog: alert, oriented to place, month, situation. Diagnostics Vital Signs (24Hr): Vital Signs - 24 hr 06/03/24 20:00 Temperature 97.3 F Pulse Rate 78 Respiratory Rate 18 Blood Pressure 127/61 Pulse Oximetry 98 Oxygen Delivery Method Room Air BMI result Body Mass Index 22.6 Labs 06/04/24 09:33 06/04/24 09:33 Imaging Radiology Impressions: ITS Impressions Chest X-Ray 03/20/24 08:33 IMPRESSION: Extremely limited exam. Only lateral views could be obtained. Suspect basilar airspace opacity, possibly pneumonia. Electronically signed by: Fortino Dumont MD 03/20/2024 10:10 AM EST RP Cervical Spine CT 03/21/24 11:18 IMPRESSION: 1. Allowing for suboptimal positioning, there is no CT evidence of acute cervical spine fracture or injury. 2. Degenerative changes with bulky ventral osteophytes spanning C4-C6, appearance in keeping with DISH. Electronically signed by: Fortino Dumont MD 03/21/2024 12:01 PM EST RP Head CT 03/21/24 11:18 IMPRESSION: 1. No acute intracranial abnormality. No acute fractures seen. 2. Stable chronic findings as discussed. Electronically signed by: Fortnio Dumont MD 03/21/2024 11:54 AM EST RP Pelvis CT 03/21/24 11:18 IMPRESSION: 1. No acute bony abnormalities. No fractures. 2. Constipation with a large amount of stool in the rectum and sigmoid colon. 3. Mild thickening of the urinary bladder wall despite underdistention, nonspecific. Differential includes the detrusor hypertrophy, neurogenic bladder, or possibly cystitis. Electronically signed by: Fortino Dumont MD 03/21/2024 12:09 PM EST RP Head CT 03/28/24 09:37 IMPRESSION: No acute fracture, bony calvarium. No acute intracranial hemorrhage. Small vessel occlusive disease. Bifrontal bitemporal lobe atrophy. Electronically signed by: Juan Corrigan MD 03/28/2024 10:19 AM EST RP Head CT 04/25/24 12:22 IMPRESSION: No acute intracranial process seen. Electronically signed by: Ritchie Marte MD 04/25/2024 01:01 PM EST RP Medications Medications Current Medications Acetaminophen (Acetaminophen 325 Mg Tablet) 650 mg PO Q6H PRN PRN Reason: pain (1-10) Al Hydroxide/Mg Hydroxide (Magnesium Hydrox/Alum Hydrox 30 Ml Oral.Susp) 30 ml PO Q6H PRN PRN Reason: Heartburn/Nausea Aripiprazole (Aripiprazole Er 400 Mg Suser.Syr) 400 mg IM Q30D [facility] Last Admin: 05/17/24 10:49 Dose: 400 mg Aspirin (Aspirin 81 Mg Tab.Chew) 81 mg PO DAILY [facility] Last Admin: 04/23/24 08:34 Dose: 81 mg Benztropine Mesylate (Benztropine Mesylate 0.5 Mg Tablet) 0.5 mg PO BID [facility] Last Admin: 06/04/24 08:22 Dose: 0.5 mg Carbamazepine (Carbamazepine 200 Mg Tablet) 300 mg PO BID [facility] Last Admin: 06/04/24 08:17 Dose: 300 mg Ferrous Sulfate (Ferrous Sulfate 324 Mg Tablet.Dr) 324 mg PO BID [facility] Last Admin: 06/04/24 08:23 Dose: 324 mg Haloperidol (Haloperidol 5 Mg Tablet) 5 mg PO TID [facility] Last Admin: 06/04/24 08:17 Dose: 5 mg Haloperidol Lactate (Haloperidol Lactate Oral Conc 10 Mg/5 Ml Oral.Conc) 5 mg PO Q6H PRN PRN Reason: Psychosis or severe agitation Last Admin: 05/05/24 02:37 Dose: 5 mg Haloperidol Lactate (Haloperidol Lactate 5 Mg/Ml Vial) 5 mg IM TID PRN PRN Reason: Refusal of Court PO Haldol Last Admin: 05/06/24 00:36 Dose: 5 mg [place] Carbonate ([place] Carbonate 300 Mg Tablet) 150 mg PO BEDTIME [facility]AS[facility] Last Admin: 06/03/24 20:51 Dose: 150 mg Magnesium Hydroxide (Milk Of Magnesia 30 Ml Oral.Susp) 30 ml PO DAILY PRN PRN Reason: Constipation Nicotine Polacrilex (Nicotine Polacrilex 2 Mg Gum) 2 mg BUCCAL Q2H PRN PRN Reason: Nicotine Cravings Trazodone HCl (Trazodone Hcl 50 Mg Tablet) 50 mg PO BEDTIME PRN PRN Reason: Insomnia Last Admin: 05/30/24 21:16 Dose: 50 mg Vitamin D (Cholecalciferol (Vitamin D3) 25 Mcg Tablet) 50 mcg PO DAILY [facility] Last Admin: 06/04/24 08:16 Dose: 50 mcg Allergies Allergies Allergy/AdvReac Type Severity Reaction Status Date / Time lithium Allergy Unknown Verified 01/13/24 18:08 divalproex sodium AdvReac Severe encephalopa Verified 05/08/24 12:34 [From Depakote] thy Assessment & Plan Assessment & Plan (1) Schizoaffective disorder, bipolar type: Status: Acute Code(s): F25.0 - Schizoaffective disorder, bipolar type (2) Diabetes mellitus: Status: Acute Code(s): E11.9 - Type 2 diabetes mellitus without complications Assessment and Plan: A1c on 04/28 5.9% Not on current medications (3) Hypertension: Status: Acute Code(s): I10 - Essential (primary) hypertension Assessment and Plan: not on current medications (4) Pancytopenia: Status: Acute Code(s): D61.818 - Other pancytopenia Assessment and Plan: seems to be improving after dc depakote CBC on 05/09/2024--> shows improvement in platelets 88 to 146, ANC also improved from 800 to 2300. normocytic anemia with Hgb 11, stable H&H. labs completed on 05/16 cbc with lower ANC 1500 (from 05/12 3200- this probably due to lowering lithium dose due to increase in BUN and Cr), Platelets trending up although slightly low 150, from 88 on 03/30/2023. Carbamazepine level 8.1 BUN 18, Cr 1.31 (improved from 05/12 BUN 20, Cr 1.46). Labs completed 06/04/2024- CBC normocytic enemia, slightly elevated but w/in normal range MCV. Plt 153, ANC 1400. CMP elevation BUN 24, Cr 1.56, creatinine clearance 45.8. (5) Chronic kidney disease (CKD): Status: Acute Code(s): N18.9 - Chronic kidney disease, unspecified Assessment and Plan: on low dose of lithium, closely monitoring renal function. Plan 03/23 keep same treatment 68 yo from a [facility] with chronic psychotic disorder, refusing medication , elevated bp and disorganized and agitated behavior requiring psychiatric hospitalization and treatment not competent to sign cv. 01/14 continue to follow - gave lambs warning today- and he says the helicopter officer will be a she- still refusing medications and quite psychotic takes alot of redirection to settle him poor adls- 01/15- Refuses meds, refuses hospitalist consult-second day File for Section Seven consideration on 01/17. Provide care as he will allow. 01/16: Depakote 250 mg bid Haldol, Lorazepam, Benadryl prn Section 7 to be filed 01/17 Message left for guardian. 01/17: Section Seven filed. . Court scheduled 01/26/24 Pt continues to refuse medicaitons. He is in need of full assist with ADL's and is incontinent. Pt transferred to [facility] this afternoon. 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 Every attempt being made to get a copy of the patient's Servin order unclear why this has been so problematic. Encourage food and fluids 01/19 continue same treatment 01/21/24 Patient labile agitated intrusive close labs ordered in order to per to protect the community patient wandering into patient's rooms intrusive impulsive laying on another person's bed. Often hostile agitated posturing at times we are still pending copy of reported Servin order encourage p.o. compliance 01/22/2024 Patient did require physical hold escort him out of a room that he jumped in other patient's room and on their bed while there were in it. There was no physical harm and the patient did leave the room his markedly impulsive with poor judgment remains on close observation has intermittently taken Haldol liquid pending civil commitment treatment plan there is a question of Servin order 01/22 The patient had been more agitated. We review his Servin order and we are increasing the Abilify up to 15 mg p.o. daily and adding Haldol p.r.n. since it is in his role years order. We needed to give him some p.r.n. at 14:00. 01/23 The patient is grossly psychotic disrobing and sexually disinhibited we are starting Haldol 2 mg p.o. t.i.d. to target psychosis as per court order treatment over objection order. 01/24 The patient remains very agitated and angry disruptive so we are increasing the Haldol from 2 mg to 5 mg p.o. t.i.d. with a backup IM if the patient refused as per court order. 01/25 we have increased the Haldol but still he is very psychotic and restless. Today he refused his blood work. He needed to be physically held twice. 01/26 the patient remains agitated at times but his last IM backup was yesterday. We are going to increase Abilify up to 20 mg daily to target mood lability and psychosis. 01/29/2024: Increase frequency of prn doses from tid to prn q 6mrs. Poor insight and unable to care for self 02/08 pt has not take any of mood stabilizer. continues to have poor sleep, intrusive and combative requiring IM medications, increase haldol 10mg po TID, back up IM. Will add ativan 1mg po TID, also back up IM. Labs show elevated CK 2300, BUN 20, Cr 1.80, unclear baseline Cr as he does have CKD. Discussed with hospitalist Dr. Gama, to give IV fluids and monitor labs tomorrow. LFTs also elevated suspect this is secondary to elevation in CK and should trend down as CK goes down. 02/09 still agitated, creatinine and CPK slightly high as yesterday, he removed his IV line there is no big difference with IV hydration. We are changing his community role years to have more options since it is not working Abilify and Haldol 02/10 3 chemical restraints yesterday. appears more combative, and somewhat more confused. Will decrease amount of benzo and antihistamine given to him as it seems to be backfiring. did discuss with ICU attending, Dr. Whietside possibility of transferring there but they would like us to try IV depakote and exhaust all resources prior to considering transfer. Pt did take depakote springkle 1000mg with apple sauce with much encourage. 02/11 continue tx. 02/12 continue same treatment 01/14 continue with Abilify and other court order medications, we are Nam[place] and the court order. 02/14 Team report improvement today with pt having greater comfort and less agitation. [id number] the staff reported that the patient had been less violent in the last 24 hours 02/16 continue tx. will check depakote and ammonia on 02/17 in AM. 02/17 continue regime and plan of care 02/26/2024: Continue current regimen as per court order 03/03 continue tx. lactulose for now as we don't have new ammonia level, but will try to chack labs. 03/16- continue medications, held clonidine patch for today due to low BP. repeat labs. 03/17-continue plan of care 03/18- continue tx 03/19 continue same treatment 03/20 waiting for CBC, basic metabolic panel and ammonia level. Today he nearly choked with a grape. We are going to change his diet to chopped 03/21 patient had a fall and he was assessed. No injuries as per CT scan of head and pelvis. Again he refused again his blood work vital signs within normal limits. 03/22 keep same treatment 03/23 keep same treatment 03 24 24 Continue plan of care Depakote Tegretol Haldol carbamazepine 03/25/2024 Repeat swallowing study ordered he is already on ground diet consider lowering Haldol versus Cogentin generally try to avoid older man 03/26 lowered Haldol to 7.5 p.o. b.i.d. 03/27 start Abilify Maintena 400 IM, later on we stopped it since he was over-sedated. 03/28 monitor vital signs and we will order blood work for tomorrow morning. 03/29 keep same treatment. We are deferring Abilify Maintena since the patient is still sedated and looks slightly delirious. He has refused blood work 03/31 continue current tx. less combative but no improvement in mentation. grossly disorganized and non sensical. 04/01: court ordered meds- team reviewing and optimizing same. 04/02 continue tx. 04/03 keep same treatment, so far he had been more compliant with some of the medications in the last 3 days. 04/04 start Abilify Maintena 400 mg IM 04/05 keep Haldol as prescribed 04/06 keep same treatment 04/08/24 continue current plan, regime 04/09/24 continue plan, CAT pending 04/10 continue same treatment 04/11 keep same treatment 04/12 lowering Haldol to 5 mg p.o. b.i.d. since the patient is over-sedated. 04/13 keep same treatment 04/14 agitated today, jumping around, dive off bed, crawling on all 4's, naked; took meds; now sleeping -floridly psychotic and telegraphic typewriter operator chief thought best to let pt sleep 04/16 keep same treatment 04/17 Abilify Maintena 400 mg today and scheduled next for 30 days. 04/18 change Haldol to 5 mg p.o. t.i.d. with backup IM if he refuses p.o. 04/19 keep same treatment. 04/20 keep same treatment 04/21: verbally aggressive, restless. continue 1:1 and current Tx plan. 04/22: asleep, not easily rousable. restless and irritable last gwen, slept only 4 hours overnight. continue current mgmt. 04/23 add Cogentin 0.5 p.o. b.i.d. small improvement on his psychosis 04/24 continue with same treatment. 04/25 the patient fell again. Blood pressure had been okay even though that he is noncompliant with clonidine patch. We discussed the case with the medical team and they agreed that we can discontinue since he had been noncompliant of clonidine patch since March 09. Starting on propranolol 5 mg p.o. t.i.d. to target akathisia. 04/26 continue tx. 04/27 continue tx. 04/28 reviewing labs- neutropenia and thrombocytopenia worsening Plt 88, ANC 1000, consult to mohamud/onc as plan to continue depakote given that it has been very difficult to stabilize patient. Also, pt with hx of DM, not on any medications. Will obtain A1c. continues to present disorganized, delirium-like presentation. VS are stable, BP on lower side, no need for additional medication for BP. depakote level 100.1. Ammonia level wnl. Will decrease dose of depakote given pancytopenia. 04/29 will stop depakote (one as it may be contributing to pancytopenia, second because it has not shown significant improvement in mentation), continue carbamazepine, pt seen by oncology- appreciate recommendations- 04/30 continue tx. continue to monitor ANC, Plts. oncology/hem following. 05/01 speech and thought process more organized- which is improvement. sexualized remarks, unaware of unsteady gait and weakness. will repeat CBC- continue monitor pancytopenia. 05/02/24 On lithium monitor pancytopenia wbc 3.0 less confused 05/03/24 Increase lithium 300 bid monitor response watch for confusion 05/04 continue current tx, willc heck lithium level, renal function, TSH and repeat CBC on 06/10 at 7am. may need to increase haldol 05/05/24 Continue lithium and Tegretol encourage fluids check lithium TSH electrolytes continue to monitor CBC 05/06/2024 Patient seen chart reviewed case reviewed with nursing staff. Patient was somewhat more dysphoric today tried to engage in conversation had a difficult time. He slept about 4 hours did get Haldol the other day was offered p.o. Ativan p.r.n. encourage fluids with lithium avoid nonsteroidals no gross confusion or tremor 05/07 continue tx. pending labs for lithium level, TSH, cbc on 05/10. 05/08 continue tx. 05/09 pt appeared to have seizure, was given ativan 2mg IM, CMP does show elevation in BUN 23, and elevation on Cr 1.50, mild hyperkalemia 5.2. CBC shows improvement in platelets 88 to 146, ANC also improved from 800 to 2300. normocytic anemia with Hg 11, stable H&H. will decreased lithium 150mg po BID. Increase carbamazepine to 300mg po BID. Awaiting recommendation from neurology. 05/10 continue tx. monitor CMP- renal function. seen by neurology. 05/11 repeat cmp tomorrow, lowered lithium to 150mg po qhs. continue monitoring renal function. 05/12 Patient doing well, polite, organized in speech and behavior. Discussed his lab work and medication regimen which he understood. Scrap Drop Crane Operator inquired about patient's awareness of the past months which he has little memory of but says I was out of my mind... And is happy to be organized. Says he wishes there was a piano on the unit; asks telegraphic typewriter operator chief about his career inappropriate, organized way. -switch to Q 15 minute checks Reviewed labs and BUN/creatinine improved; alk-phos only mildly elevated Continue with current treatment plan 05/14/24- continue monitor renal function, will also check carbamazepine level, cbc, and cmp on 05/16/2024. 05/15 continue tx. labs scheduled for 05/16 05/16 labs completed on 05/16 cbc with lower ANC 1500 (from 05/12 3200- this probably due to lowering lithium dose due to increase in BUN and Cr), Platelets trending up although slightly low 150, from 88 on 03/30/2023. Carbamazepine level 8.1 BUN 18, Cr 1.31 (improved from 05/12 BUN 20, Cr 1.46). 05/17 continue tx. 05/18 continue tx. 05/19- much improved CTP! 05/20- CTP 05/21 continue tx. BP was low this morning- 98/55, HR78, will monitor oral intake and renal function. 05/22 continue tx. will check renal function 05/23 05/23 will postpone cmp for next week, not critical at this point and pt asked if they can be done next week as he has had multiple lab work recently. 05/24 continue tx. 05/25 continue tx. asks to speak with urologist about erectile dysfunction- will defer to OP. 05/28 continue tx. 05/29 continue tx. 05/30 continue tx. 05/31 continue tx. 06/01 continue tx. 06/02: stable. asked to address ED, deferred to outpt. no questions or concerns otherwise. 06/03: stable. continue current mgmt. 06/04 labs completed, slightly elevated BUN and Cr from what seemed to be his baseline, although he does have underlying CKD stage 3. [place] not making much difference in ANC at this dose and may be affecting renal function (although still close to baseline). will d/c lithium currently 150mg po qhs. Reason for continued inpatient stay Substantial Risk for: inability to function Time Spent With Patient Time: Total time managing care of this patient today ____ minutes.
[2024-06-04 09:37] LABS: MANUAL DIFF FLAG NO
[2024-06-04 09:46] LABS: Basophils Percent Auto 0.8 % (0-2); Eosinophils Absolute Auto 0.1 X10*3/uL (0.0-0.4); Eosinophils Percent Auto 1.9 % (0-4); Hematocrit 35.5 % (42.0-52.0); Hemoglobin 11.4 g/dl (14.0-18.0); Imm Gran Abs Auto 0.02 X10*3/uL (0.00-0.03); Imm Gran Pct Auto 0.5 % (0.0-0.4); Lymphocytes Percent Auto 53.8 % (20-40); Mean Corpuscular HGB Conc 32.1 g/dl (31.0-36.0); Mean Corpuscular Hemoglobin 29.6 pg (27.0-33.0); Mean Corpuscular Volume 92.2 fL (80.0-98.0); Mean Platelet Volume 9.3 fL (9.4-12.4); Monocytes Absolute Auto 0.3 X10*3/uL (0.1-1.2); Monocytes Percent Auto 7.2 % (2-11); Neutrophils Absolute Auto 1.4 x10*3/uL (2.0-8.3); Neutrophils Percent Auto 35.8 % (45-73); Platelet Count 153 X10*3/uL (160-400); Red Blood Count 3.85 X10*6/uL (4.60-5.80); Red Cell Distribution Width 15.7 % (11.0-16.0); White Blood Count 3.8 X10*3/uL (4.8-10.8)
[2024-06-04 09:57] LABS: Alanine Aminotransferase 68 U/L (0-40); Albumin Level 3.6 g/dL (3.5-5.0); Alkaline Phosphatase 125 U/L (39-117); Anion Gap 10 (12-20); Aspartate Amino Transferase 37 U/L (5-37); Bilirubin Total 0.1 mg/dL (0.0-1.0); Blood Urea Nitrogen 24 mg/dL (9-16); Calcium 8.8 mg/dL (8.4-10.2); Carbon Dioxide 25 mmol/L (22-29); Chloride 108 mmol/L (96-108); Creatinine Clr Calc Pharmacy 45.8; Estimated Glomerular Filt Rate 44; Glucose Random 205 mg/dL (60-115); Potassium 4.8 mmol/L (3.3-5.1); Sodium 138 mmol/L (135-145); Total Protein 6.1 g/dL (6.5-8.0)
[2024-06-04 20:00] VITALS: RESP 18
[2024-06-05 08:00] VITALS: BP 125/73; PULSE 65; RESP 16; TEMP 36.6; O2SAT 99
[2024-06-05] MEDS: Cholecalciferol (Vitamin D3) 25 MCG TABLET 50 MCG PO (08:12)
[2024-06-05] MEDS: Ferrous Sulfate 324 MG TABLET.DR PO (08:12)
[2024-06-05] MEDS: carBAMazepine 200 MG TABLET 300 MG PO ×2 (08:12→20:34)
[2024-06-05] MEDS: HaloperidoL 5 MG TABLET PO ×3 (08:12→20:36)
[2024-06-05] MEDS: Benztropine Mesylate 0.5 MG TABLET PO ×2 (08:13→20:34)
[2024-06-05] MEDS: Ascorbic Acid 500 MG TABLET PO (08:13)
--- NOTE | 2024-06-05 11:34 | HO.PSYCHPN ---
Subjective Subjective Date of Service: 06/05/24 Reason For Visit: Schizoaffective disorder Subjective Notes: Section 7 Interim History: Pt slept through the night. He has been visible on the unit, social with select peers. He is eating well. He denies any concerns. No behavioral concerns. Review of Systems Review of Systems No overt seizure-like symptoms Yes Unobtainable due to mental status Mental Status Exam Mental Status Exam Narrative: Appearance: fair hygiene, casual clothing, dressing self on his own, in NAD Behavior: calm; isolative Psychomotor: no agitation or retardation Speech: none observed TP: not observed TC: not observed Mood: not assessed Affect: calm, non-labile SI: none expressed HI: none expressed VH/AH: no overt signs Delusions: no overt Insight/judgment:improved, but still impaired at baseline. Memory/cog: alert, oriented to place, month, situation. Diagnostics Vital Signs (24Hr): Vital Signs - 24 hr 06/04/24 20:00 06/05/24 08:00 Temperature 97.8 F Pulse Rate 65 Respiratory Rate 18 16 Blood Pressure 125/73 Pulse Oximetry 99 Oxygen Delivery Method Room Air BMI result Body Mass Index 22.6 Labs 06/04/24 09:33 06/04/24 09:33 Labs: Laboratory Results - last 48 hr 06/04/24 09:33 WBC 3.8 L RBC 3.85 L Hgb 11.4 L Hct 35.5 L MCV 92.2 MCH 29.6 MCHC 32.1 RDW 15.7 Plt Count 153 L MPV 9.3 L Immature Gran % (Auto) 0.5 H Neut % (Auto) 35.8 L Lymph % (Auto) 53.8 H [place] % (Auto) 7.2 Eos % (Auto) 1.9 Baso % (Auto) 0.8 Lymph # (Auto) 2.0 [place] # (Auto) 0.3 Eos # (Auto) 0.1 Baso # (Auto) 0.0 Abs Immat Gran (auto) 0.02 Absolute Neuts (auto) 1.4 L Absolute Nucleated RBC 0.000 Nucleated RBC % (auto) 0.0 Sodium 138 Potassium 4.8 Chloride 108 Carbon Dioxide 25 Anion Gap 10 L BUN 24 H Creatinine 1.56 H Estim Creat Clear Calc 45.8 Estimated GFR 44 Random Glucose 205 H Calcium 8.8 Total Bilirubin 0.1 AST 37 ALT 68 H Alkaline Phosphatase 125 H Total Protein 6.1 L Albumin 3.6 Imaging Radiology Impressions: ITS Impressions Chest X-Ray 03/20/24 08:33 IMPRESSION: Extremely limited exam. Only lateral views could be obtained. Suspect basilar airspace opacity, possibly pneumonia. Electronically signed by: Fortino Dumont MD 03/20/2024 10:10 AM EST RP Cervical Spine CT 03/21/24 11:18 IMPRESSION: 1. Allowing for suboptimal positioning, there is no CT evidence of acute cervical spine fracture or injury. 2. Degenerative changes with bulky ventral osteophytes spanning C4-C6, appearance in keeping with DISH. Electronically signed by: Fortino Dumont MD 03/21/2024 12:01 PM EST RP Head CT 03/21/24 11:18 IMPRESSION: 1. No acute intracranial abnormality. No acute fractures seen. 2. Stable chronic findings as discussed. Electronically signed by: Fortino Dumont MD 03/21/2024 11:54 AM EST RP Pelvis CT 03/21/24 11:18 IMPRESSION: 1. No acute bony abnormalities. No fractures. 2. Constipation with a large amount of stool in the rectum and sigmoid colon. 3. Mild thickening of the urinary bladder wall despite underdistention, nonspecific. Differential includes the detrusor hypertrophy, neurogenic bladder, or possibly cystitis. Electronically signed by: Fortino Dumont MD 03/21/2024 12:09 PM EST RP Head CT 03/28/24 09:37 IMPRESSION: No acute fracture, bony calvarium. No acute intracranial hemorrhage. Small vessel occlusive disease. Bifrontal bitemporal lobe atrophy. Electronically signed by: Juan Corrigan MD 03/28/2024 10:19 AM EST RP Head CT 04/25/24 12:22 IMPRESSION: No acute intracranial process seen. Electronically signed by: Ritchie Marte MD 04/25/2024 01:01 PM EST RP Medications Medications Current Medications Acetaminophen (Acetaminophen 325 Mg Tablet) 650 mg PO Q6H PRN PRN Reason: pain (1-10) Al Hydroxide/Mg Hydroxide (Magnesium Hydrox/Alum Hydrox 30 Ml Oral.Susp) 30 ml PO Q6H PRN PRN Reason: Heartburn/Nausea Aripiprazole (Aripiprazole Er 400 Mg Suser.Syr) 400 mg IM Q30D COUNT INCLUDES THE [facility] Last Admin: 05/17/24 10:49 Dose: 400 mg Ascorbic Acid (Ascorbic Acid 500 Mg Tablet) 500 mg PO DAILY COUNT INCLUDES THE [facility] Last Admin: 06/05/24 08:13 Dose: 500 mg Aspirin (Aspirin 81 Mg Tab.Chew) 81 mg PO DAILY COUNT INCLUDES THE [facility] Last Admin: 04/23/24 08:34 Dose: 81 mg Benztropine Mesylate (Benztropine Mesylate 0.5 Mg Tablet) 0.5 mg PO BID COUNT INCLUDES THE [facility] Last Admin: 06/05/24 08:13 Dose: 0.5 mg Carbamazepine (Carbamazepine 200 Mg Tablet) 300 mg PO BID COUNT INCLUDES THE [facility] Last Admin: 06/05/24 08:12 Dose: 300 mg Ferrous Sulfate (Ferrous Sulfate 324 Mg Tablet.Dr) 324 mg PO DAILY COUNT INCLUDES THE [facility] Last Admin: 06/05/24 08:12 Dose: 324 mg Haloperidol (Haloperidol 5 Mg Tablet) 5 mg PO TID COUNT INCLUDES THE [facility] Last Admin: 06/05/24 08:12 Dose: 5 mg Haloperidol Lactate (Haloperidol Lactate Oral Conc 10 Mg/5 Ml Oral.Conc) 5 mg PO Q6H PRN PRN Reason: Psychosis or severe agitation Last Admin: 05/05/24 02:37 Dose: 5 mg Haloperidol Lactate (Haloperidol Lactate 5 Mg/Ml Vial) 5 mg IM TID PRN PRN Reason: Refusal of Court PO Haldol Last Admin: 05/06/24 00:36 Dose: 5 mg Magnesium Hydroxide (Milk Of Magnesia 30 Ml Oral.Susp) 30 ml PO DAILY PRN PRN Reason: Constipation Nicotine Polacrilex (Nicotine Polacrilex 2 Mg Gum) 2 mg BUCCAL Q2H PRN PRN Reason: Nicotine Cravings Trazodone HCl (Trazodone Hcl 50 Mg Tablet) 50 mg PO BEDTIME PRN PRN Reason: Insomnia Last Admin: 05/30/24 21:16 Dose: 50 mg Vitamin D (Cholecalciferol (Vitamin D3) 25 Mcg Tablet) 50 mcg PO DAILY COUNT INCLUDES THE [facility] Last Admin: 06/05/24 08:12 Dose: 50 mcg Allergies Allergies Allergy/AdvReac Type Severity Reaction Status Date / Time lithium Allergy Unknown Verified 01/13/24 18:08 divalproex sodium AdvReac Severe encephalopa Verified 05/08/24 12:34 [From Depakote] thy Assessment & Plan Assessment & Plan (1) Schizoaffective disorder, bipolar type: Status: Acute Code(s): F25.0 - Schizoaffective disorder, bipolar type (2) Diabetes mellitus: Status: Acute Code(s): E11.9 - Type 2 diabetes mellitus without complications Assessment and Plan: A1c on 04/28 5.9% Not on current medications (3) Hypertension: Status: Acute Code(s): I10 - Essential (primary) hypertension Assessment and Plan: not on current medications (4) Pancytopenia: Status: Acute Code(s): D61.818 - Other pancytopenia Assessment and Plan: seems to be improving after dc depakote CBC on 05/09/2024--> shows improvement in platelets 88 to 146, ANC also improved from 800 to 2300. normocytic anemia with Hgb 11, stable H&H. labs completed on 05/16 cbc with lower ANC 1500 (from 05/12 3200- this probably due to lowering lithium dose due to increase in BUN and Cr), Platelets trending up although slightly low 150, from 88 on 03/30/2023. Carbamazepine level 8.1 BUN 18, Cr 1.31 (improved from 05/12 BUN 20, Cr 1.46). Labs completed 06/04/2024- CBC normocytic enemia, slightly elevated but w/in normal range MCV. Plt 153, ANC 1400. CMP elevation BUN 24, Cr 1.56, creatinine clearance 45.8. (5) Chronic kidney disease (CKD): Status: Acute Code(s): N18.9 - Chronic kidney disease, unspecified Assessment and Plan: on low dose of lithium, closely monitoring renal function. Plan 03/23 keep same treatment 68 yo from a custodial with chronic psychotic disorder, refusing medication , elevated bp and disorganized and agitated behavior requiring psychiatric hospitalization and treatment not competent to sign cv. 01/14 continue to follow - gave lambs warning today- and he says the carbider will be a she- still refusing medications and quite psychotic takes alot of redirection to settle him poor adls- 01/15- Refuses meds, refuses hospitalist consult-second day File for Section Seven consideration on 01/17. Provide care as he will allow. 01/16: Depakote 250 mg bid Haldol, Lorazepam, Benadryl prn Section 7 to be filed 01/17 Message left for guardian. 01/17: Section Seven filed. . Court scheduled 01/26/24 Pt continues to refuse medicaitons. He is in need of full assist with ADL's and is incontinent. Pt transferred to [facility] this afternoon. 01/19/2024 Patient pending civil commitment loud agitated would not engage in any conversation with this technical writer and editor non informational healing agitated verbally aggressive. Every attempt being made to get a copy of the patient's Servin order unclear why this has been so problematic. Encourage food and fluids 01/19 continue same treatment 01/21/24 Patient labile agitated intrusive close labs ordered in order to per to protect the community patient wandering into patient's rooms intrusive impulsive laying on another person's bed. Often hostile agitated posturing at times we are still pending copy of reported Servin order encourage p.o. compliance 01/22/2024 Patient did require physical hold escort him out of a room that he jumped in other patient's room and on their bed while there were in it. There was no physical harm and the patient did leave the room his markedly impulsive with poor judgment remains on close observation has intermittently taken Haldol liquid pending civil commitment treatment plan there is a question of Servin order 01/22 The patient had been more agitated. We review his Servin order and we are increasing the Abilify up to 15 mg p.o. daily and adding Haldol p.r.n. since it is in his role years order. We needed to give him some p.r.n. at 14:00. 01/23 The patient is grossly psychotic disrobing and sexually disinhibited we are starting Haldol 2 mg p.o. t.i.d. to target psychosis as per court order treatment over objection order. 01/24 The patient remains very agitated and angry disruptive so we are increasing the Haldol from 2 mg to 5 mg p.o. t.i.d. with a backup IM if the patient refused as per court order. 01/25 we have increased the Haldol but still he is very psychotic and restless. Today he refused his blood work. He needed to be physically held twice. 01/26 the patient remains agitated at times but his last IM backup was yesterday. We are going to increase Abilify up to 20 mg daily to target mood lability and psychosis. 01/29/2024: Increase frequency of prn doses from tid to prn q 6mrs. Poor insight and unable to care for self 02/08 pt has not take any of mood stabilizer. continues to have poor sleep, intrusive and combative requiring IM medications, increase haldol 10mg po TID, back up IM. Will add ativan 1mg po TID, also back up IM. Labs show elevated CK 2300, BUN 20, Cr 1.80, unclear baseline Cr as he does have CKD. Discussed with hospitalist Dr. Gama, to give IV fluids and monitor labs tomorrow. LFTs also elevated suspect this is secondary to elevation in CK and should trend down as CK goes down. 02/09 still agitated, creatinine and CPK slightly high as yesterday, he removed his IV line there is no big difference with IV hydration. We are changing his community role years to have more options since it is not working Abilify and Haldol 02/10 3 chemical restraints yesterday. appears more combative, and somewhat more confused. Will decrease amount of benzo and antihistamine given to him as it seems to be backfiring. did discuss with ICU attending, Dr. Whiteside possibility of transferring there but they would like us to try IV depakote and exhaust all resources prior to considering transfer. Pt did take depakote springkle 1000mg with apple sauce with much encourage. 02/11 continue tx. 02/12 continue same treatment 01/14 continue with Abilify and other court order medications, we are Nam[place] and the court order. 02/14 Team report improvement today with pt having greater comfort and less agitation. [id number] the staff reported that the patient had been less violent in the last 24 hours 02/16 continue tx. will check depakote and ammonia on 02/17 in AM. 02/17 continue regime and plan of care 02/26/2024: Continue current regimen as per court order 03/03 continue tx. lactulose for now as we don't have new ammonia level, but will try to chack labs. 03/16- continue medications, held clonidine patch for today due to low BP. repeat labs. 03/17-continue plan of care 03/18- continue tx 03/19 continue same treatment 03/20 waiting for CBC, basic metabolic panel and ammonia level. Today he nearly choked with a grape. We are going to change his diet to chopped 03/21 patient had a fall and he was assessed. No injuries as per CT scan of head and pelvis. Again he refused again his blood work vital signs within normal limits. 03/22 keep same treatment 03/23 keep same treatment 03 24 24 Continue plan of care Depakote Tegretol Haldol carbamazepine 03/25/2024 Repeat swallowing study ordered he is already on ground diet consider lowering Haldol versus Cogentin generally try to avoid older man 03/26 lowered Haldol to 7.5 p.o. b.i.d. 03/27 start Abilify Maintena 400 IM, later on we stopped it since he was over-sedated. 03/28 monitor vital signs and we will order blood work for tomorrow morning. 03/29 keep same treatment. We are deferring Abilify Maintena since the patient is still sedated and looks slightly delirious. He has refused blood work 03/31 continue current tx. less combative but no improvement in mentation. grossly disorganized and non sensical. 04/01: court ordered meds- team reviewing and optimizing same. 04/02 continue tx. 04/03 keep same treatment, so far he had been more compliant with some of the medications in the last 3 days. 04/04 start Abilify Maintena 400 mg IM 04/05 keep Haldol as prescribed 04/06 keep same treatment 04/08/24 continue current plan, regime 04/09/24 continue plan, CAT pending 04/10 continue same treatment 04/11 keep same treatment 04/12 lowering Haldol to 5 mg p.o. b.i.d. since the patient is over-sedated. 04/13 keep same treatment 04/14 agitated today, jumping around, dive off bed, crawling on all 4's, naked; took meds; now sleeping -floridly psychotic and technical writer and editor thought best to let pt sleep 04/16 keep same treatment 04/17 Abilify Maintena 400 mg today and scheduled next for 30 days. 04/18 change Haldol to 5 mg p.o. t.i.d. with backup IM if he refuses p.o. 04/19 keep same treatment. 04/20 keep same treatment 04/21: verbally aggressive, restless. continue 1:1 and current Tx plan. 04/22: asleep, not easily rousable. restless and irritable last gwen, slept only 4 hours overnight. continue current mgmt. 04/23 add Cogentin 0.5 p.o. b.i.d. small improvement on his psychosis 04/24 continue with same treatment. 04/25 the patient fell again. Blood pressure had been okay even though that he is noncompliant with clonidine patch. We discussed the case with the medical team and they agreed that we can discontinue since he had been noncompliant of clonidine patch since March 09. Starting on propranolol 5 mg p.o. t.i.d. to target akathisia. 04/26 continue tx. 04/27 continue tx. 04/28 reviewing labs- neutropenia and thrombocytopenia worsening Plt 88, ANC 1000, consult to mohamud/onc as plan to continue depakote given that it has been very difficult to stabilize patient. Also, pt with hx of DM, not on any medications. Will obtain A1c. continues to present disorganized, delirium-like presentation. VS are stable, BP on lower side, no need for additional medication for BP. depakote level 100.1. Ammonia level wnl. Will decrease dose of depakote given pancytopenia. 04/29 will stop depakote (one as it may be contributing to pancytopenia, second because it has not shown significant improvement in mentation), continue carbamazepine, pt seen by oncology- appreciate recommendations- 04/30 continue tx. continue to monitor ANC, Plts. oncology/hem following. 05/01 speech and thought process more organized- which is improvement. sexualized remarks, unaware of unsteady gait and weakness. will repeat CBC- continue monitor pancytopenia. 05/02/24 On lithium monitor pancytopenia wbc 3.0 less confused 05/03/24 Increase lithium 300 bid monitor response watch for confusion 05/04 continue current tx, willc heck lithium level, renal function, TSH and repeat CBC on 06/10 at 7am. may need to increase haldol 05/05/24 Continue lithium and Tegretol encourage fluids check lithium TSH electrolytes continue to monitor CBC 05/06/2024 Patient seen chart reviewed case reviewed with nursing staff. Patient was somewhat more dysphoric today tried to engage in conversation had a difficult time. He slept about 4 hours did get Haldol the other day was offered p.o. Ativan p.r.n. encourage fluids with lithium avoid nonsteroidals no gross confusion or tremor 05/07 continue tx. pending labs for lithium level, TSH, cbc on 05/10. 05/08 continue tx. 05/09 pt appeared to have seizure, was given ativan 2mg IM, CMP does show elevation in BUN 23, and elevation on Cr 1.50, mild hyperkalemia 5.2. CBC shows improvement in platelets 88 to 146, ANC also improved from 800 to 2300. normocytic anemia with Hg 11, stable H&H. will decreased lithium 150mg po BID. Increase carbamazepine to 300mg po BID. Awaiting recommendation from neurology. 05/10 continue tx. monitor CMP- renal function. seen by neurology. 05/11 repeat cmp tomorrow, lowered lithium to 150mg po qhs. continue monitoring renal function. 05/12 Patient doing well, polite, organized in speech and behavior. Discussed his lab work and medication regimen which he understood. Breakdown Man inquired about patient's awareness of the past months which he has little memory of but says I was out of my mind... And is happy to be organized. Says he wishes there was a piano on the unit; asks technical writer and editor about his career inappropriate, organized way. -switch to Q 15 minute checks Reviewed labs and BUN/creatinine improved; alk-phos only mildly elevated Continue with current treatment plan 05/14/24- continue monitor renal function, will also check carbamazepine level, cbc, and cmp on 05/16/2024. 05/15 continue tx. labs scheduled for 05/16 05/16 labs completed on 05/16 cbc with lower ANC 1500 (from 05/12 3200- this probably due to lowering lithium dose due to increase in BUN and Cr), Platelets trending up although slightly low 150, from 88 on 03/30/2023. Carbamazepine level 8.1 BUN 18, Cr 1.31 (improved from 05/12 BUN 20, Cr 1.46). 05/17 continue tx. 05/18 continue tx. 05/19- much improved CTP! 05/20- CTP 05/21 continue tx. BP was low this morning- 98/55, HR78, will monitor oral intake and renal function. 05/22 continue tx. will check renal function 05/23 05/23 will postpone cmp for next week, not critical at this point and pt asked if they can be done next week as he has had multiple lab work recently. 05/24 continue tx. 05/25 continue tx. asks to speak with urologist about erectile dysfunction- will defer to OP. 05/28 continue tx. 05/29 continue tx. 05/30 continue tx. 05/31 continue tx. 06/01 continue tx. 06/02: stable. asked to address ED, deferred to outpt. no questions or concerns otherwise. 06/03: stable. continue current mgmt. 06/04 labs completed, slightly elevated BUN and Cr from what seemed to be his baseline, although he does have underlying CKD stage3 [place] not making much difference in ANC at this dose and may be affecting renal function (although still close to baseline). will d/c lithium currently 150mg po qhs. 06/05 continue tx. Reason for continued inpatient stay Substantial Risk for: inability to function Time Spent With Patient Time: Total time managing care of this patient today ____ minutes.
[2024-06-05 20:00] VITALS: BP 116/60; PULSE 63; RESP 18; TEMP 36.8; O2SAT 100
[2024-06-05 23:00] VITALS: BMI 21.9
[2024-06-06 08:00] VITALS: BP 125/62; PULSE 64; RESP 18; TEMP 37.2; O2SAT 95
[2024-06-06] MEDS: carBAMazepine 200 MG TABLET 300 MG PO ×2 (09:29→20:50)
[2024-06-06] MEDS: Cholecalciferol (Vitamin D3) 25 MCG TABLET 50 MCG PO (09:30)
[2024-06-06] MEDS: Ferrous Sulfate 324 MG TABLET.DR PO (09:30)
[2024-06-06] MEDS: HaloperidoL 5 MG TABLET PO ×3 (09:30→20:50)
[2024-06-06] MEDS: Ascorbic Acid 500 MG TABLET PO (09:30)
[2024-06-06] MEDS: Benztropine Mesylate 0.5 MG TABLET PO ×2 (09:31→20:50)
--- NOTE | 2024-06-06 16:37 | P.PNPSI_ITS ---
Subjective Subjective Date of Service: 06/06/24 Reason For Visit: Schizoaffective disorder Subjective Notes: Conditional Voluntary Interim History: Pt slept through the night. He has been visible on the unit, social with select peers. He is eating well. He denies any concerns. No behavioral concerns. He reports wanting to go home soon. taking medications as prescribed. Review of Systems Review of Systems No overt seizure-like symptoms Yes Unobtainable due to mental status Mental Status Exam Mental Status Exam Narrative: Appearance: fair hygiene, casual clothing, dressing self on his own, in NAD Behavior: calm; isolative Psychomotor: no agitation or retardation Speech: none observed TP: not observed TC: not observed Mood: not assessed Affect: calm, non-labile SI: none expressed HI: none expressed VH/AH: no overt signs Delusions: no overt Insight/judgment:improved, but still impaired at baseline. Memory/cog: alert, oriented to place, month, situation. Diagnostics Vital Signs (24Hr): Vital Signs - 24 hr 06/05/24 20:00 06/06/24 08:00 Temperature 98.2 F 99.0 F Pulse Rate 63 64 Respiratory Rate 18 18 Blood Pressure 116/60 125/62 Pulse Oximetry 100 95 Oxygen Delivery Method Room Air Room Air BMI result Body Mass Index 21.9 Labs 06/04/24 09:33 06/04/24 09:33 Imaging Radiology Impressions: ITS Impressions Chest X-Ray 03/20/24 08:33 IMPRESSION: Extremely limited exam. Only lateral views could be obtained. Suspect basilar airspace opacity, possibly pneumonia. Electronically signed by: Fortino Dumont MD 03/20/2024 10:10 AM EST RP Cervical Spine CT 03/21/24 11:18 IMPRESSION: 1. Allowing for suboptimal positioning, there is no CT evidence of acute cervical spine fracture or injury. 2. Degenerative changes with bulky ventral osteophytes spanning C4-C6, appearance in keeping with DISH. Electronically signed by: Fortino Dumont MD 03/21/2024 12:01 PM EST RP Head CT 03/21/24 11:18 IMPRESSION: 1. No acute intracranial abnormality. No acute fractures seen. 2. Stable chronic findings as discussed. Electronically signed by: Fortino Dumont MD 03/21/2024 11:54 AM EST RP Pelvis CT 03/21/24 11:18 IMPRESSION: 1. No acute bony abnormalities. No fractures. 2. Constipation with a large amount of stool in the rectum and sigmoid colon. 3. Mild thickening of the urinary bladder wall despite underdistention, nonspecific. Differential includes the detrusor hypertrophy, neurogenic bladder, or possibly cystitis. Electronically signed by: Fortino Dumont MD 03/21/2024 12:09 PM EST RP Head CT 03/28/24 09:37 IMPRESSION: No acute fracture, bony calvarium. No acute intracranial hemorrhage. Small vessel occlusive disease. Bifrontal bitemporal lobe atrophy. Electronically signed by: Juan Corrigan MD 03/28/2024 10:19 AM EST RP Head CT 04/25/24 12:22 IMPRESSION: No acute intracranial process seen. Electronically signed by: Ritchie Marte MD 04/25/2024 01:01 PM EST RP Medications Medications Current Medications Acetaminophen (Acetaminophen 325 Mg Tablet) 650 mg PO Q6H PRN PRN Reason: pain (1-10) Al Hydroxide/Mg Hydroxide (Magnesium Hydrox/Alum Hydrox 30 Ml Oral.Susp) 30 ml PO Q6H PRN PRN Reason: Heartburn/Nausea Aripiprazole (Aripiprazole Er 400 Mg Suser.Syr) 400 mg IM Q30D [facility] Last Admin: 05/17/24 10:49 Dose: 400 mg Ascorbic Acid (Ascorbic Acid 500 Mg Tablet) 500 mg PO DAILY [facility] Last Admin: 06/06/24 09:30 Dose: 500 mg Aspirin (Aspirin 81 Mg Tab.Chew) 81 mg PO DAILY [facility] Last Admin: 04/23/24 08:34 Dose: 81 mg Benztropine Mesylate (Benztropine Mesylate 0.5 Mg Tablet) 0.5 mg PO BID [facility] Last Admin: 06/06/24 09:31 Dose: 0.5 mg Carbamazepine (Carbamazepine 200 Mg Tablet) 300 mg PO BID [facility] Last Admin: 06/06/24 09:29 Dose: 300 mg Ferrous Sulfate (Ferrous Sulfate 324 Mg Tablet.Dr) 324 mg PO DAILY [facility] Last Admin: 06/06/24 09:30 Dose: 324 mg Haloperidol (Haloperidol 5 Mg Tablet) 5 mg PO TID [facility] Last Admin: 06/06/24 15:59 Dose: 5 mg Haloperidol Lactate (Haloperidol Lactate Oral Conc 10 Mg/5 Ml Oral.Conc) 5 mg PO Q6H PRN PRN Reason: Psychosis or severe agitation Last Admin: 05/05/24 02:37 Dose: 5 mg Haloperidol Lactate (Haloperidol Lactate 5 Mg/Ml Vial) 5 mg IM TID PRN PRN Reason: Refusal of Court PO Haldol Last Admin: 05/06/24 00:36 Dose: 5 mg Magnesium Hydroxide (Milk Of Magnesia 30 Ml Oral.Susp) 30 ml PO DAILY PRN PRN Reason: Constipation Nicotine Polacrilex (Nicotine Polacrilex 2 Mg Gum) 2 mg BUCCAL Q2H PRN PRN Reason: Nicotine Cravings Trazodone HCl (Trazodone Hcl 50 Mg Tablet) 50 mg PO BEDTIME PRN PRN Reason: Insomnia Last Admin: 05/30/24 21:16 Dose: 50 mg Vitamin D (Cholecalciferol (Vitamin D3) 25 Mcg Tablet) 50 mcg PO DAILY [facility] Last Admin: 06/06/24 09:30 Dose: 50 mcg Allergies Allergies Allergy/AdvReac Type Severity Reaction Status Date / Time lithium Allergy Unknown Verified 01/13/24 18:08 divalproex sodium AdvReac Severe encephalopa Verified 05/08/24 12:34 [From Depakote] thy Assessment & Plan Assessment & Plan (1) Schizoaffective disorder, bipolar type: Status: Acute Code(s): F25.0 - Schizoaffective disorder, bipolar type (2) Diabetes mellitus: Status: Acute Code(s): E11.9 - Type 2 diabetes mellitus without complications Assessment and Plan: A1c on 04/28 5.9% Not on current medications (3) Hypertension: Status: Acute Code(s): I10 - Essential (primary) hypertension Assessment and Plan: not on current medications (4) Pancytopenia: Status: Acute Code(s): D61.818 - Other pancytopenia Assessment and Plan: seems to be improving after dc depakote CBC on 05/09/2024--> shows improvement in platelets 88 to 146, ANC also improved from 800 to 2300. normocytic anemia with Hgb 11, stable H&H. labs completed on 05/16 cbc with lower ANC 1500 (from 3/22 3200- this probably due to lowering lithium dose due to increase in BUN and Cr), Platelets trending up although slightly low 150, from 88 on 03/30/2023. Carbamazepine level 8.1 BUN 18, Cr 1.31 (improved from 05/12 BUN 20, Cr 1.46). Labs completed 06/04/2024- CBC normocytic enemia, slightly elevated but w/in normal range MCV. Plt 153, ANC 1400. CMP elevation BUN 24, Cr 1.56, creatinine clearance 45.8. (5) Chronic kidney disease (CKD): Status: Acute Code(s): N18.9 - Chronic kidney disease, unspecified Assessment and Plan: on low dose of lithium, closely monitoring renal function. Plan 03/23 keep same treatment 68 yo [place] [facility] with chronic psychotic disorder, refusing medication , elevated bp and disorganized and agitated behavior requiring psychiatric hospitalization and treatment not competent to sign cv. 01/14 continue to follow - gave lambs warning today- and he says the paper testing supervisor will be a she- still refusing medications and quite psychotic takes alot of redirection to settle him poor adls- 01/15- Refuses meds, refuses hospitalist consult-second day File for Section Seven consideration on 01/17. Provide care as he will allow. 01/16: Depakote 250 mg bid Haldol, Lorazepam, Benadryl prn Section 7 to be filed 01/17 Message left for guardian. 01/17: Section Seven filed. . Court scheduled 01/26/24 Pt continues to refuse medicaitons. He is in need of full assist with ADL's and is incontinent. Pt transferred to [facility] this afternoon. 01/19/2024 Patient pending civil commitment loud agitated would not engage in any conversation with this manual writer non informational healing agitated verbally aggressive. Every attempt being made to get a copy of the patient's Servin order unclear why this has been so problematic. Encourage food and fluids 01/19 continue same treatment 01/21/24 Patient labile agitated intrusive close labs ordered in order to per to protect the community patient wandering into patient's rooms intrusive impulsive laying on another person's bed. Often hostile agitated posturing at times we are still pending copy of reported Servin order encourage p.o. compliance 01/22/2024 Patient did require physical hold escort him out of a room that he jumped in other patient's room and on their bed while there were in it. There was no physical harm and the patient did leave the room his markedly impulsive with poor judgment remains on close observation has intermittently taken Haldol liquid pending civil commitment treatment plan there is a question of Servin order 01/22 The patient had been more agitated. We review his Servin order and we are increasing the Abilify up to 15 mg p.o. daily and adding Haldol p.r.n. since it is in his role years order. We needed to give him some p.r.n. at 14:00. 01/23 The patient is grossly psychotic disrobing and sexually disinhibited we are starting Haldol 2 mg p.o. t.i.d. to target psychosis as per court order treatment over objection order. 01/24 The patient remains very agitated and angry disruptive so we are increasing the Haldol from 2 mg to 5 mg p.o. t.i.d. with a backup IM if the patient refused as per court order. 01/25 we have increased the Haldol but still he is very psychotic and restless. Today he refused his blood work. He needed to be physically held twice. 01/26 the patient remains agitated at times but his last IM backup was yesterday. We are going to increase Abilify up to 20 mg daily to target mood lability and psychosis. 01/29/2024: Increase frequency of prn doses from tid to prn q 6mrs. Poor insight and unable to care for self 02/08 pt has not take any of mood stabilizer. continues to have poor sleep, intrusive and combative requiring IM medications, increase haldol 10mg po TID, back up IM. Will add ativan 1mg po TID, also back up IM. Labs show elevated CK 2300, BUN 20, Cr 1.80, unclear baseline Cr as he does have CKD. Discussed with hospitalist Dr. Gama, to give IV fluids and monitor labs tomorrow. LFTs also elevated suspect this is secondary to elevation in CK and should trend down as CK goes down. 02/09 still agitated, creatinine and CPK slightly high as yesterday, he removed his IV line there is no big difference with IV hydration. We are changing his community role years to have more options since it is not working Abilify and Haldol 02/10 3 chemical restraints yesterday. appears more combative, and somewhat more confused. Will decrease amount of benzo and antihistamine given to him as it seems to be backfiring. did discuss with ICU attending, Dr. Whiteside possibility of transferring there but they would like us to try IV depakote and exhaust all resources prior to considering transfer. Pt did take depakote springkle 1000mg with apple sauce with much encourage. 02/11 continue tx. 02/12 continue same treatment 01/14 continue with Abilify and other court order medications, we are Nam[place] and the court order. 02/14 Team report improvement today with pt having greater comfort and less agitation. [id number] the staff reported that the patient had been less violent in the last 24 hours 02/16 continue tx. will check depakote and ammonia on 02/17 in AM. 02/17 continue regime and plan of care 02/26/2024: Continue current regimen as per court order 03/03 continue tx. lactulose for now as we don't have new ammonia level, but will try to chack labs. 03/16- continue medications, held clonidine patch for today due to low BP. repeat labs. 03/17-continue plan of care 03/18- continue tx 03/19 continue same treatment 03/20 waiting for CBC, basic metabolic panel and ammonia level. Today he nearly choked with a grape. We are going to change his diet to chopped 03/21 patient had a fall and he was assessed. No injuries as per CT scan of head and pelvis. Again he refused again his blood work vital signs within normal limits. 03/22 keep same treatment 03/23 keep same treatment 03 24 24 Continue plan of care Depakote Tegretol Haldol carbamazepine 03/25/2024 Repeat swallowing study ordered he is already on ground diet consider lowering Haldol versus Cogentin generally try to avoid older man 03/26 lowered Haldol to 7.5 p.o. b.i.d. 03/27 start Abilify Maintena 400 IM, later on we stopped it since he was over- sedated. 03/28 monitor vital signs and we will order blood work for tomorrow morning. 03/29 keep same treatment. We are deferring Abilify Maintena since the patient is still sedated and looks slightly delirious. He has refused blood work 03/31 continue current tx. less combative but no improvement in mentation. grossly disorganized and non sensical. 04/01: court ordered meds- team reviewing and optimizing same. 04/02 continue tx. 04/03 keep same treatment, so far he had been more compliant with some of the medications in the last 3 days. 04/04 start Abilify Maintena 400 mg IM 04/05 keep Haldol as prescribed 04/06 keep same treatment 04/08/24 continue current plan, regime 04/09/24 continue plan, CAT pending 04/10 continue same treatment 04/11 keep same treatment 04/12 lowering Haldol to 5 mg p.o. b.i.d. since the patient is over-sedated. 04/13 keep same treatment 04/14 agitated today, jumping around, dive off bed, crawling on all 4's, naked; took meds; now sleeping -floridly psychotic and manual writer thought best to let pt sleep 04/16 keep same treatment 04/17 Abilify Maintena 400 mg today and scheduled next for 30 days. 04/18 change Haldol to 5 mg p.o. t.i.d. with backup IM if he refuses p.o. 04/19 keep same treatment. 04/20 keep same treatment 04/21: verbally aggressive, restless. continue 1:1 and current Tx plan. 04/22: asleep, not easily rousable. restless and irritable last gwen, slept only 4 hours overnight. continue current mgmt. 04/23 add Cogentin 0.5 p.o. b.i.d. small improvement on his psychosis 04/24 continue with same treatment. 04/25 the patient fell again. Blood pressure had been okay even though that he is noncompliant with clonidine patch. We discussed the case with the medical team and they agreed that we can discontinue since he had been noncompliant of clonidine patch since March 09. Starting on propranolol 5 mg p.o. t.i.d. to target akathisia. 04/26 continue tx. 3/7 continue tx. 04/28 reviewing labs- neutropenia and thrombocytopenia worsening Plt 88, ANC 1000, consult to mohamud/onc as plan to continue depakote given that it has been very difficult to stabilize patient. Also, pt with hx of DM, not on any medications. Will obtain A1c. continues to present disorganized, delirium-like presentation. VS are stable, BP on lower side, no need for additional medication for BP. depakote level 100.1. Ammonia level wnl. Will decrease dose of depakote given pancytopenia. 04/29 will stop depakote (one as it may be contributing to pancytopenia, second because it has not shown significant improvement in mentation), continue carbamazepine, pt seen by oncology- appreciate recommendations- 04/30 continue tx. continue to monitor ANC, Plts. oncology/hem following. 05/01 speech and thought process more organized- which is improvement. sexualized remarks, unaware of unsteady gait and weakness. will repeat CBC- continue monitor pancytopenia. 05/02/24 On lithium monitor pancytopenia wbc 3.0 less confused 05/03/24 Increase lithium 300 bid monitor response watch for confusion 05/04 continue current tx, willc heck lithium level, renal function, TSH and repeat CBC on 06/10 at 7am. may need to increase haldol 05/05/24 Continue lithium and Tegretol encourage fluids check lithium TSH electrolytes continue to monitor CBC 05/06/2024 Patient seen chart reviewed case reviewed with nursing staff. Patient was somewhat more dysphoric today tried to engage in conversation had a difficult time. He slept about 4 hours did get Haldol the other day was offered p.o. Ativan p.r.n. encourage fluids with lithium avoid nonsteroidals no gross confusion or tremor 05/07 continue tx. pending labs for lithium level, TSH, cbc on 05/10. 05/08 continue tx. 05/09 pt appeared to have seizure, was given ativan 2mg IM, CMP does show elevation in BUN 23, and elevation on Cr 1.50, mild hyperkalemia 5.2. CBC shows improvement in platelets 88 to 146, ANC also improved from 800 to 2300. normocytic anemia with Hg 11, stable H&H. will decreased lithium 150mg po BID. Increase carbamazepine to 300mg po BID. Awaiting recommendation from neurology. 05/10 continue tx. monitor CMP- renal function. seen by neurology. 05/11 repeat cmp tomorrow, lowered lithium to 150mg po qhs. continue monitoring renal function. 05/12 Patient doing well, polite, organized in speech and behavior. Discussed his lab work and medication regimen which he understood. Claim Investigator inquired about patient's awareness of the past months which he has little memory of but says I was out of my mind... And is happy to be organized. Says he wishes there was a piano on the unit; asks manual writer about his career inappropriate, organized way. -switch to Q 15 minute checks Reviewed labs and BUN/creatinine improved; alk-phos only mildly elevated Continue with current treatment plan 05/14/24- continue monitor renal function, will also check carbamazepine level, cbc, and cmp on 05/16/2024. 05/15 continue tx. labs scheduled for 05/16 05/16 labs completed on 05/16 cbc with lower ANC 1500 (from 05/12 3200- this probably due to lowering lithium dose due to increase in BUN and Cr), Platelets trending up although slightly low 150, from 88 on 03/30/2023. Carbamazepine level 8.1 BUN 18, Cr 1.31 (improved from 05/12 BUN 20, Cr 1.46). 05/17 continue tx. 05/18 continue tx. 05/19- much improved CTP! 05/20- CTP 05/21 continue tx. BP was low this morning- 98/55, HR78, will monitor oral intake and renal function. 05/22 continue tx. will check renal function 05/23 05/23 will postpone cmp for next week, not critical at this point and pt asked if they can be done next week as he has had multiple lab work recently. 05/24 continue tx. 05/25 continue tx. asks to speak with urologist about erectile dysfunction- will defer to OP. 05/28 continue tx. 05/29 continue tx. 05/30 continue tx. 05/31 continue tx. 06/01 continue tx. 06/02: stable. asked to address ED, deferred to outpt. no questions or concerns otherwise. 06/03: stable. continue current mgmt. 06/04 labs completed, slightly elevated BUN and Cr from what seemed to be his baseline, although he does have underlying CKD stage3 [place] not making much difference in ANC at this dose and may be affecting renal function (although still close to baseline). will d/c lithium currently 150mg po qhs. 06/05 continue tx. 06/06 continue tx. Reason for continued inpatient stay Substantial Risk for: inability to function Time Spent With Patient Time: Total time managing care of this patient today ____ minutes.
[2024-06-06 20:00] VITALS: BP 101/64; PULSE 61; RESP 18; TEMP 36.1; O2SAT 98
[2024-06-07] MEDS: carBAMazepine 200 MG TABLET 300 MG PO ×2 (08:50→21:44)
[2024-06-07] MEDS: Cholecalciferol (Vitamin D3) 25 MCG TABLET 50 MCG PO (08:50)
[2024-06-07] MEDS: Benztropine Mesylate 0.5 MG TABLET PO ×2 (08:53→21:44)
[2024-06-07] MEDS: Ascorbic Acid 500 MG TABLET PO (08:53)
[2024-06-07] MEDS: Ferrous Sulfate 324 MG TABLET.DR PO (08:53)
[2024-06-07] MEDS: HaloperidoL 5 MG TABLET PO ×3 (08:53→21:44)
[2024-06-07 08:55] VITALS: BP 131/65; PULSE 65; RESP 16; TEMP 36.8; O2SAT 99
[2024-06-07 09:16] VITALS: BMI 22.7
--- NOTE | 2024-06-07 17:58 | HO.PSYCHPN ---
Subjective Subjective Date of Service: 06/07/24 Reason For Visit: Schizoaffective disorder Interim History: Pt slept through the night. He has been visible on the unit, social with select peers. He is eating well. He denies any concerns. No behavioral concerns. He reports wanting to go home soon. taking medications as prescribed. Review of Systems Review of Systems No overt seizure-like symptoms Yes Unobtainable due to mental status Mental Status Exam Mental Status Exam Narrative: Appearance: fair hygiene, casual clothing, dressing self on his own, in NAD Behavior: calm; isolative Psychomotor: no agitation or retardation Speech: none observed TP: not observed TC: not observed Mood: not assessed Affect: calm, non-labile SI: none expressed HI: none expressed VH/AH: no overt signs Delusions: no overt Insight/judgment:improved, but still impaired at baseline. Memory/cog: alert, oriented to place, month, situation. Diagnostics Vital Signs (24Hr): Vital Signs - 24 hr 06/06/24 20:00 06/07/24 08:55 Temperature 97 F 98.2 F Pulse Rate 61 65 Respiratory Rate 18 16 Blood Pressure 101/64 131/65 Pulse Oximetry 98 99 Oxygen Delivery Method Room Air Room Air BMI result Body Mass Index 22.7 Labs 06/04/24 09:33 06/04/24 09:33 Imaging Radiology Impressions: ITS Impressions Chest X-Ray 03/20/24 08:33 IMPRESSION: Extremely limited exam. Only lateral views could be obtained. Suspect basilar airspace opacity, possibly pneumonia. Electronically signed by: Fortino Dumont MD 03/20/2024 10:10 AM EST RP Cervical Spine CT 03/21/24 11:18 IMPRESSION: 1. Allowing for suboptimal positioning, there is no CT evidence of acute cervical spine fracture or injury. 2. Degenerative changes with bulky ventral osteophytes spanning C4-C6, appearance in keeping with DISH. Electronically signed by: Fortino Dumont MD 03/21/2024 12:01 PM EST RP Head CT 03/21/24 11:18 IMPRESSION: 1. No acute intracranial abnormality. No acute fractures seen. 2. Stable chronic findings as discussed. Electronically signed by: Fortino Dumont MD 03/21/2024 11:54 AM EST RP Pelvis CT 03/21/24 11:18 IMPRESSION: 1. No acute bony abnormalities. No fractures. 2. Constipation with a large amount of stool in the rectum and sigmoid colon. 3. Mild thickening of the urinary bladder wall despite underdistention, nonspecific. Differential includes the detrusor hypertrophy, neurogenic bladder, or possibly cystitis. Electronically signed by: Fortino Dumont MD 03/21/2024 12:09 PM EST RP Head CT 03/28/24 09:37 IMPRESSION: No acute fracture, bony calvarium. No acute intracranial hemorrhage. Small vessel occlusive disease. Bifrontal bitemporal lobe atrophy. Electronically signed by: Juan Corrigan MD 03/28/2024 10:19 AM EST RP Head CT 04/25/24 12:22 IMPRESSION: No acute intracranial process seen. Electronically signed by: Ritchie Marte MD 04/25/2024 01:01 PM EST RP Medications Medications Current Medications Acetaminophen (Acetaminophen 325 Mg Tablet) 650 mg PO Q6H PRN PRN Reason: pain (1-10) Al Hydroxide/Mg Hydroxide (Magnesium Hydrox/Alum Hydrox 30 Ml Oral.Susp) 30 ml PO Q6H PRN PRN Reason: Heartburn/Nausea Aripiprazole (Aripiprazole Er 400 Mg Suser.Syr) 400 mg IM Q30D [facility] Last Admin: 05/17/24 10:49 Dose: 400 mg Ascorbic Acid (Ascorbic Acid 500 Mg Tablet) 500 mg PO DAILY [facility] Last Admin: 06/07/24 08:53 Dose: 500 mg Aspirin (Aspirin 81 Mg Tab.Chew) 81 mg PO DAILY [facility] Last Admin: 04/23/24 08:34 Dose: 81 mg Benztropine Mesylate (Benztropine Mesylate 0.5 Mg Tablet) 0.5 mg PO BID [facility] Last Admin: 06/07/24 08:53 Dose: 0.5 mg Carbamazepine (Carbamazepine 200 Mg Tablet) 300 mg PO BID [facility] Last Admin: 06/07/24 08:50 Dose: 300 mg Ferrous Sulfate (Ferrous Sulfate 324 Mg Tablet.) 324 mg PO DAILY [facility] Last Admin: 06/07/24 08:53 Dose: 324 mg Haloperidol (Haloperidol 5 Mg Tablet) 5 mg PO TID [facility] Last Admin: 06/07/24 15:36 Dose: 5 mg Haloperidol Lactate (Haloperidol Lactate Oral Conc 10 Mg/5 Ml Oral.Conc) 5 mg PO Q6H PRN PRN Reason: Psychosis or severe agitation Last Admin: 05/05/24 02:37 Dose: 5 mg Haloperidol Lactate (Haloperidol Lactate 5 Mg/Ml Vial) 5 mg IM TID PRN PRN Reason: Refusal of Court PO Haldol Last Admin: 05/06/24 00:36 Dose: 5 mg Magnesium Hydroxide (Milk Of Magnesia 30 Ml Oral.Susp) 30 ml PO DAILY PRN PRN Reason: Constipation Nicotine Polacrilex (Nicotine Polacrilex 2 Mg Gum) 2 mg BUCCAL Q2H PRN PRN Reason: Nicotine Cravings Trazodone HCl (Trazodone Hcl 50 Mg Tablet) 50 mg PO BEDTIME PRN PRN Reason: Insomnia Last Admin: 05/30/24 21:16 Dose: 50 mg Vitamin D (Cholecalciferol (Vitamin D3) 25 Mcg Tablet) 50 mcg PO DAILY [facility] Last Admin: 06/07/24 08:50 Dose: 50 mcg Allergies Allergies Allergy/AdvReac Type Severity Reaction Status Date / Time lithium Allergy Unknown Verified 01/13/24 18:08 divalproex sodium AdvReac Severe encephalopa Verified 05/08/24 12:34 [From Depakote] thy Assessment & Plan Assessment & Plan (1) Schizoaffective disorder, bipolar type: Status: Acute Code(s): F25.0 - Schizoaffective disorder, bipolar type (2) Diabetes mellitus: Status: Acute Code(s): E11.9 - Type 2 diabetes mellitus without complications Assessment and Plan: A1c on 04/28 5.9% Not on current medications (3) Hypertension: Status: Acute Code(s): I10 - Essential (primary) hypertension Assessment and Plan: not on current medications (4) Pancytopenia: Status: Acute Code(s): D61.818 - Other pancytopenia Assessment and Plan: seems to be improving after dc depakote CBC on 05/09/2024--> shows improvement in platelets 88 to 146, ANC also improved from 800 to 2300. normocytic anemia with Hgb 11, stable H&H. labs completed on 05/16 cbc with lower ANC 1500 (from 05/12 3200- this probably due to lowering lithium dose due to increase in BUN and Cr), Platelets trending up although slightly low 150, from 88 on 03/30/2023. Carbamazepine level 8.1 BUN 18, Cr 1.31 (improved from 05/12 BUN 20, Cr 1.46). Labs completed 06/04/2024- CBC normocytic enemia, slightly elevated but w/in normal range MCV. Plt 153, ANC 1400. CMP elevation BUN 24, Cr 1.56, creatinine clearance 45.8. (5) Chronic kidney disease (CKD): Status: Acute Code(s): N18.9 - Chronic kidney disease, unspecified Assessment and Plan: on low dose of lithium, closely monitoring renal function. Plan 03/23 keep same treatment 68 yo from a longterm with chronic psychotic disorder, refusing medication , elevated bp and disorganized and agitated behavior requiring psychiatric hospitalization and treatment not competent to sign cv. 01/14 continue to follow - gave lambs warning today- and he says the sales and distribution clerk will be a she- still refusing medications and quite psychotic takes alot of redirection to settle him poor adls- 01/15- Refuses meds, refuses hospitalist consult-second day File for Section Seven consideration on 01/17. Provide care as he will allow. 01/16: Depakote 250 mg bid Haldol, Lorazepam, Benadryl prn Section 7 to be filed 01/17 Message left for guardian. 01/17: Section Seven filed. . Court scheduled 01/26/24 Pt continues to refuse medicaitons. He is in need of full assist with ADL's and is incontinent. Pt transferred to [facility] this afternoon. 01/19/2024 Patient pending civil commitment loud agitated would not engage in any conversation with this freelance copywriter non informational healing agitated verbally aggressive. Every attempt being made to get a copy of the patient's Servin order unclear why this has been so problematic. Encourage food and fluids 01/19 continue same treatment 01/21/24 Patient labile agitated intrusive close labs ordered in order to per to protect the community patient wandering into patient's rooms intrusive impulsive laying on another person's bed. Often hostile agitated posturing at times we are still pending copy of reported Servin order encourage p.o. compliance 01/22/2024 Patient did require physical hold escort him out of a room that he jumped in other patient's room and on their bed while there were in it. There was no physical harm and the patient did leave the room his markedly impulsive with poor judgment remains on close observation has intermittently taken Haldol liquid pending civil commitment treatment plan there is a question of Servin order 01/22 The patient had been more agitated. We review his Servin order and we are increasing the Abilify up to 15 mg p.o. daily and adding Haldol p.r.n. since it is in his role years order. We needed to give him some p.r.n. at 14:00. 01/23 The patient is grossly psychotic disrobing and sexually disinhibited we are starting Haldol 2 mg p.o. t.i.d. to target psychosis as per court order treatment over objection order. 01/24 The patient remains very agitated and angry disruptive so we are increasing the Haldol from 2 mg to 5 mg p.o. t.i.d. with a backup IM if the patient refused as per court order. 01/25 we have increased the Haldol but still he is very psychotic and restless. Today he refused his blood work. He needed to be physically held twice. 01/26 the patient remains agitated at times but his last IM backup was yesterday. We are going to increase Abilify up to 20 mg daily to target mood lability and psychosis. 01/29/2024: Increase frequency of prn doses from tid to prn q 6mrs. Poor insight and unable to care for self 02/08 pt has not take any of mood stabilizer. continues to have poor sleep, intrusive and combative requiring IM medications, increase haldol 10mg po TID, back up IM. Will add ativan 1mg po TID, also back up IM. Labs show elevated CK 2300, BUN 20, Cr 1.80, unclear baseline Cr as he does have CKD. Discussed with hospitalist Dr. Gama, to give IV fluids and monitor labs tomorrow. LFTs also elevated suspect this is secondary to elevation in CK and should trend down as CK goes down. 02/09 still agitated, creatinine and CPK slightly high as yesterday, he removed his IV line there is no big difference with IV hydration. We are changing his community role years to have more options since it is not working Abilify and Haldol 02/10 3 chemical restraints yesterday. appears more combative, and somewhat more confused. Will decrease amount of benzo and antihistamine given to him as it seems to be backfiring. did discuss with ICU attending, Dr. Whiteside possibility of transferring there but they would like us to try IV depakote and exhaust all resources prior to considering transfer. Pt did take depakote springkle 1000mg with apple sauce with much encourage. 02/11 continue tx. 02/12 continue same treatment 01/14 continue with Abilify and other court order medications, we are Nam[place] and the court order. 02/14 Team report improvement today with pt having greater comfort and less agitation. [id number] the staff reported that the patient had been less violent in the last 24 hours 02/16 continue tx. will check depakote and ammonia on 02/17 in AM. 02/17 continue regime and plan of care 02/26/2024: Continue current regimen as per court order 03/03 continue tx. lactulose for now as we don't have new ammonia level, but will try to chack labs. 03/16- continue medications, held clonidine patch for today due to low BP. repeat labs. 03/17-continue plan of care 03/18- continue tx 03/19 continue same treatment 03/20 waiting for CBC, basic metabolic panel and ammonia level. Today he nearly choked with a grape. We are going to change his diet to chopped 03/21 patient had a fall and he was assessed. No injuries as per CT scan of head and pelvis. Again he refused again his blood work vital signs within normal limits. 03/22 keep same treatment 03/23 keep same treatment 03 24 24 Continue plan of care Depakote Tegretol Haldol carbamazepine 03/25/2024 Repeat swallowing study ordered he is already on ground diet consider lowering Haldol versus Cogentin generally try to avoid older man 03/26 lowered Haldol to 7.5 p.o. b.i.d. 03/27 start Abilify Maintena 400 IM, later on we stopped it since he was over-sedated. 03/28 monitor vital signs and we will order blood work for tomorrow morning. 03/29 keep same treatment. We are deferring Abilify Maintena since the patient is still sedated and looks slightly delirious. He has refused blood work 03/31 continue current tx. less combative but no improvement in mentation. grossly disorganized and non sensical. 04/01: court ordered meds- team reviewing and optimizing same. 04/02 continue tx. 04/03 keep same treatment, so far he had been more compliant with some of the medications in the last 3 days. 04/04 start Abilify Maintena 400 mg IM 04/05 keep Haldol as prescribed 04/06 keep same treatment 04/08/24 continue current plan, regime 04/09/24 continue plan, CAT pending 04/10 continue same treatment 04/11 keep same treatment 04/12 lowering Haldol to 5 mg p.o. b.i.d. since the patient is over-sedated. 04/13 keep same treatment 04/14 agitated today, jumping around, dive off bed, crawling on all 4's, naked; took meds; now sleeping -floridly psychotic and freelance copywriter thought best to let pt sleep 04/16 keep same treatment 04/17 Abilify Maintena 400 mg today and scheduled next for 30 days. 04/18 change Haldol to 5 mg p.o. t.i.d. with backup IM if he refuses p.o. 04/19 keep same treatment. 04/20 keep same treatment 04/21: verbally aggressive, restless. continue 1:1 and current Tx plan. 04/22: asleep, not easily rousable. restless and irritable last gwen, slept only 4 hours overnight. continue current mgmt. 04/23 add Cogentin 0.5 p.o. b.i.d. small improvement on his psychosis 04/24 continue with same treatment. 04/25 the patient fell again. Blood pressure had been okay even though that he is noncompliant with clonidine patch. We discussed the case with the medical team and they agreed that we can discontinue since he had been noncompliant of clonidine patch since March 09. Starting on propranolol 5 mg p.o. t.i.d. to target akathisia. 04/26 continue tx. 04/27 continue tx. 04/28 reviewing labs- neutropenia and thrombocytopenia worsening Plt 88, ANC 1000, consult to mohamud/onc as plan to continue depakote given that it has been very difficult to stabilize patient. Also, pt with hx of DM, not on any medications. Will obtain A1c. continues to present disorganized, delirium-like presentation. VS are stable, BP on lower side, no need for additional medication for BP. depakote level 100.1. Ammonia level wnl. Will decrease dose of depakote given pancytopenia. 04/29 will stop depakote (one as it may be contributing to pancytopenia, second because it has not shown significant improvement in mentation), continue carbamazepine, pt seen by oncology- appreciate recommendations- 04/30 continue tx. continue to monitor ANC, Plts. oncology/hem following. 05/01 speech and thought process more organized- which is improvement. sexualized remarks, unaware of unsteady gait and weakness. will repeat CBC- continue monitor pancytopenia. 05/02/24 On lithium monitor pancytopenia wbc 3.0 less confused 05/03/24 Increase lithium 300 bid monitor response watch for confusion 05/04 continue current tx, willc heck lithium level, renal function, TSH and repeat CBC on 06/10 at 7am. may need to increase haldol 05/05/24 Continue lithium and Tegretol encourage fluids check lithium TSH electrolytes continue to monitor CBC 05/06/2024 Patient seen chart reviewed case reviewed with nursing staff. Patient was somewhat more dysphoric today tried to engage in conversation had a difficult time. He slept about 4 hours did get Haldol the other day was offered p.o. Ativan p.r.n. encourage fluids with lithium avoid nonsteroidals no gross confusion or tremor 05/07 continue tx. pending labs for lithium level, TSH, cbc on 05/10. 05/08 continue tx. 05/09 pt appeared to have seizure, was given ativan 2mg IM, CMP does show elevation in BUN 23, and elevation on Cr 1.50, mild hyperkalemia 5.2. CBC shows improvement in platelets 88 to 146, ANC also improved from 800 to 2300. normocytic anemia with Hg 11, stable H&H. will decreased lithium 150mg po BID. Increase carbamazepine to 300mg po BID. Awaiting recommendation from neurology. 05/10 continue tx. monitor CMP- renal function. seen by neurology. 05/11 repeat cmp tomorrow, lowered lithium to 150mg po qhs. continue monitoring renal function. 05/12 Patient doing well, polite, organized in speech and behavior. Discussed his lab work and medication regimen which he understood. Orthodontist Small Business Owner inquired about patient's awareness of the past months which he has little memory of but says I was out of my mind... And is happy to be organized. Says he wishes there was a piano on the unit; asks freelance copywriter about his career inappropriate, organized way. -switch to Q 15 minute checks Reviewed labs and BUN/creatinine improved; alk-phos only mildly elevated Continue with current treatment plan 05/14/24- continue monitor renal function, will also check carbamazepine level, cbc, and cmp on 05/16/2024. 05/15 continue tx. labs scheduled for 05/16 05/16 labs completed on 05/16 cbc with lower ANC 1500 (from 05/12 3200- this probably due to lowering lithium dose due to increase in BUN and Cr), Platelets trending up although slightly low 150, from 88 on 03/30/2023. Carbamazepine level 8.1 BUN 18, Cr 1.31 (improved from 05/12 BUN 20, Cr 1.46). 05/17 continue tx. 05/18 continue tx. 05/19- much improved CTP! 05/20- CTP 05/21 continue tx. BP was low this morning- 98/55, HR78, will monitor oral intake and renal function. 05/22 continue tx. will check renal function 05/23 05/23 will postpone cmp for next week, not critical at this point and pt asked if they can be done next week as he has had multiple lab work recently. 05/24 continue tx. 05/25 continue tx. asks to speak with urologist about erectile dysfunction- will defer to OP. 05/28 continue tx. 05/29 continue tx. 05/30 continue tx. 05/31 continue tx. 06/01 continue tx. 06/02: stable. asked to address ED, deferred to outpt. no questions or concerns otherwise. 06/03: stable. continue current mgmt. 06/04 labs completed, slightly elevated BUN and Cr from what seemed to be his baseline, although he does have underlying CKD stage3 [place] not making much difference in ANC at this dose and may be affecting renal function (although still close to baseline). will d/c lithium currently 150mg po qhs. 06/05 continue tx. 06/07 continue tx. Reason for continued inpatient stay Substantial Risk for: inability to function Time Spent With Patient Time: Total time managing care of this patient today ____ minutes.
[2024-06-07 20:00] VITALS: BP 107/66; PULSE 60; RESP 18; TEMP 36.2; O2SAT 98
[2024-06-08 08:00] VITALS: BP 121/72; PULSE 62; RESP 18; TEMP 36; O2SAT 100
[2024-06-08] MEDS: Ferrous Sulfate 324 MG TABLET.DR PO (08:32)
[2024-06-08] MEDS: Cholecalciferol (Vitamin D3) 25 MCG TABLET 50 MCG PO (08:32)
[2024-06-08] MEDS: carBAMazepine 200 MG TABLET 300 MG PO ×2 (08:32→19:23)
[2024-06-08] MEDS: Benztropine Mesylate 0.5 MG TABLET PO ×2 (08:32→19:23)
[2024-06-08] MEDS: HaloperidoL 5 MG TABLET PO ×3 (08:32→19:23)
[2024-06-08] MEDS: Ascorbic Acid 500 MG TABLET PO (08:32)
--- NOTE | 2024-06-08 17:24 | HO.PSYCHPN ---
Subjective Subjective Date of Service: 06/08/24 Reason For Visit: Schizoaffective disorder Subjective Notes: Section 7 Interim History: Pt slept through the night. He has been visible on the unit, social with select peers. He is eating well. He denies any concerns. No behavioral concerns. Intermittently goes out and plays the piano. He reports wanting to go home soon. taking medications as prescribed. Review of Systems Review of Systems No overt seizure-like symptoms Yes Unobtainable due to mental status Mental Status Exam Mental Status Exam Narrative: Appearance: fair hygiene, casual clothing, dressing self on his own, in NAD Behavior: calm; isolative Psychomotor: no agitation or retardation Speech: none observed TP: not observed TC: not observed Mood: not assessed Affect: calm, non-labile SI: none expressed HI: none expressed VH/AH: no overt signs Delusions: no overt Insight/judgment:improved, but still impaired at baseline. Memory/cog: alert, oriented to place, month, situation. Diagnostics Vital Signs (24Hr): Vital Signs - 24 hr 06/07/24 20:00 06/08/24 08:00 Temperature 97.2 F 96.8 F Pulse Rate 60 62 Respiratory Rate 18 18 Blood Pressure 107/66 121/72 Pulse Oximetry 98 100 Oxygen Delivery Method Room Air Room Air BMI result Body Mass Index 22.7 Labs 06/04/24 09:33 06/04/24 09:33 Imaging Radiology Impressions: ITS Impressions Chest X-Ray 03/20/24 08:33 IMPRESSION: Extremely limited exam. Only lateral views could be obtained. Suspect basilar airspace opacity, possibly pneumonia. Electronically signed by: Fortino Dumont MD 03/20/2024 10:10 AM EST RP Cervical Spine CT 03/21/24 11:18 IMPRESSION: 1. Allowing for suboptimal positioning, there is no CT evidence of acute cervical spine fracture or injury. 2. Degenerative changes with bulky ventral osteophytes spanning C4-C6, appearance in keeping with DISH. Electronically signed by: Fortino Dumont MD 03/21/2024 12:01 PM EST RP Head CT 03/21/24 11:18 IMPRESSION: 1. No acute intracranial abnormality. No acute fractures seen. 2. Stable chronic findings as discussed. Electronically signed by: Fortino Dumont MD 03/21/2024 11:54 AM EST RP Pelvis CT 03/21/24 11:18 IMPRESSION: 1. No acute bony abnormalities. No fractures. 2. Constipation with a large amount of stool in the rectum and sigmoid colon. 3. Mild thickening of the urinary bladder wall despite underdistention, nonspecific. Differential includes the detrusor hypertrophy, neurogenic bladder, or possibly cystitis. Electronically signed by: Fortino Dumont MD 03/21/2024 12:09 PM EST RP Head CT 03/28/24 09:37 IMPRESSION: No acute fracture, bony calvarium. No acute intracranial hemorrhage. Small vessel occlusive disease. Bifrontal bitemporal lobe atrophy. Electronically signed by: Juan Corrigan MD 03/28/2024 10:19 AM EST RP Head CT 04/25/24 12:22 IMPRESSION: No acute intracranial process seen. Electronically signed by: Ritchie Marte MD 04/25/2024 01:01 PM EST RP Medications Medications Current Medications Acetaminophen (Acetaminophen 325 Mg Tablet) 650 mg PO Q6H PRN PRN Reason: pain (1-10) Al Hydroxide/Mg Hydroxide (Magnesium Hydrox/Alum Hydrox 30 Ml Oral.Susp) 30 ml PO Q6H PRN PRN Reason: Heartburn/Nausea Aripiprazole (Aripiprazole Er 400 Mg Suser.Syr) 400 mg IM Q30D [facility] Last Admin: 05/17/24 10:49 Dose: 400 mg Ascorbic Acid (Ascorbic Acid 500 Mg Tablet) 500 mg PO DAILY [facility] Last Admin: 06/08/24 08:32 Dose: 500 mg Aspirin (Aspirin 81 Mg Tab.Chew) 81 mg PO DAILY [facility] Last Admin: 04/23/24 08:34 Dose: 81 mg Benztropine Mesylate (Benztropine Mesylate 0.5 Mg Tablet) 0.5 mg PO BID [facility] Last Admin: 06/08/24 08:32 Dose: 0.5 mg Carbamazepine (Carbamazepine 200 Mg Tablet) 300 mg PO BID [facility] Last Admin: 06/08/24 08:32 Dose: 300 mg Ferrous Sulfate (Ferrous Sulfate 324 Mg Tablet.Dr) 324 mg PO DAILY [facility] Last Admin: 06/08/24 08:32 Dose: 324 mg Haloperidol (Haloperidol 5 Mg Tablet) 5 mg PO TID [facility] Last Admin: 06/08/24 15:25 Dose: 5 mg Haloperidol Lactate (Haloperidol Lactate Oral Conc 10 Mg/5 Ml Oral.Conc) 5 mg PO Q6H PRN PRN Reason: Psychosis or severe agitation Last Admin: 05/05/24 02:37 Dose: 5 mg Haloperidol Lactate (Haloperidol Lactate 5 Mg/Ml Vial) 5 mg IM TID PRN PRN Reason: Refusal of Court PO Haldol Last Admin: 05/06/24 00:36 Dose: 5 mg Magnesium Hydroxide (Milk Of Magnesia 30 Ml Oral.Susp) 30 ml PO DAILY PRN PRN Reason: Constipation Nicotine Polacrilex (Nicotine Polacrilex 2 Mg Gum) 2 mg BUCCAL Q2H PRN PRN Reason: Nicotine Cravings Trazodone HCl (Trazodone Hcl 50 Mg Tablet) 50 mg PO BEDTIME PRN PRN Reason: Insomnia Last Admin: 05/30/24 21:16 Dose: 50 mg Vitamin D (Cholecalciferol (Vitamin D3) 25 Mcg Tablet) 50 mcg PO DAILY [facility] Last Admin: 06/08/24 08:32 Dose: 50 mcg Allergies Allergies Allergy/AdvReac Type Severity Reaction Status Date / Time lithium Allergy Unknown Verified 01/13/24 18:08 divalproex sodium AdvReac Severe encephalopa Verified 05/08/24 12:34 [From Depakote] thy Assessment & Plan Assessment & Plan (1) Schizoaffective disorder, bipolar type: Status: Acute Code(s): F25.0 - Schizoaffective disorder, bipolar type (2) Diabetes mellitus: Status: Acute Code(s): E11.9 - Type 2 diabetes mellitus without complications Assessment and Plan: A1c on 04/28 5.9% Not on current medications (3) Hypertension: Status: Acute Code(s): I10 - Essential (primary) hypertension Assessment and Plan: not on current medications (4) Pancytopenia: Status: Acute Code(s): D61.818 - Other pancytopenia Assessment and Plan: seems to be improving after dc depakote CBC on 05/09/2024--> shows improvement in platelets 88 to 146, ANC also improved from 800 to 2300. normocytic anemia with Hgb 11, stable H&H. labs completed on 05/16 cbc with lower ANC 1500 (from 05/12 3200- this probably due to lowering lithium dose due to increase in BUN and Cr), Platelets trending up although slightly low 150, from 88 on 03/30/2023. Carbamazepine level 8.1 BUN 18, Cr 1.31 (improved from 05/12 BUN 20, Cr 1.46). Labs completed 06/04/2024- CBC normocytic enemia, slightly elevated but w/in normal range MCV. Plt 153, ANC 1400. CMP elevation BUN 24, Cr 1.56, creatinine clearance 45.8. (5) Chronic kidney disease (CKD): Status: Acute Code(s): N18.9 - Chronic kidney disease, unspecified Assessment and Plan: on low dose of lithium, closely monitoring renal function. Plan 03/23 keep same treatment 68 yo from a skilled nursing with chronic psychotic disorder, refusing medication , elevated bp and disorganized and agitated behavior requiring psychiatric hospitalization and treatment not competent to sign cv. 01/14 continue to follow - gave lambs warning today- and he says the certified fraud examiner will be a she- still refusing medications and quite psychotic takes alot of redirection to settle him poor adls- 01/15- Refuses meds, refuses hospitalist consult-second day File for Section Seven consideration on 01/17. Provide care as he will allow. 01/16: Depakote 250 mg bid Haldol, Lorazepam, Benadryl prn Section 7 to be filed 01/17 Message left for guardian. 01/17: Section Seven filed. . Court scheduled 01/26/24 Pt continues to refuse medicaitons. He is in need of full assist with ADL's and is incontinent. Pt transferred to [facility] this afternoon. 01/19/2024 Patient pending civil commitment loud agitated would not engage in any conversation with this signwriter non informational healing agitated verbally aggressive. Every attempt being made to get a copy of the patient's Servin order unclear why this has been so problematic. Encourage food and fluids 01/19 continue same treatment 01/21/24 Patient labile agitated intrusive close labs ordered in order to per to protect the community patient wandering into patient's rooms intrusive impulsive laying on another person's bed. Often hostile agitated posturing at times we are still pending copy of reported Servin order encourage p.o. compliance 01/22/2024 Patient did require physical hold escort him out of a room that he jumped in other patient's room and on their bed while there were in it. There was no physical harm and the patient did leave the room his markedly impulsive with poor judgment remains on close observation has intermittently taken Haldol liquid pending civil commitment treatment plan there is a question of Servin order 01/22 The patient had been more agitated. We review his Servin order and we are increasing the Abilify up to 15 mg p.o. daily and adding Haldol p.r.n. since it is in his role years order. We needed to give him some p.r.n. at 14:00. 01/23 The patient is grossly psychotic disrobing and sexually disinhibited we are starting Haldol 2 mg p.o. t.i.d. to target psychosis as per court order treatment over objection order. 01/24 The patient remains very agitated and angry disruptive so we are increasing the Haldol from 2 mg to 5 mg p.o. t.i.d. with a backup IM if the patient refused as per court order. 01/25 we have increased the Haldol but still he is very psychotic and restless. Today he refused his blood work. He needed to be physically held twice. 01/26 the patient remains agitated at times but his last IM backup was yesterday. We are going to increase Abilify up to 20 mg daily to target mood lability and psychosis. 01/29/2024: Increase frequency of prn doses from tid to prn q 6mrs. Poor insight and unable to care for self 02/08 pt has not take any of mood stabilizer. continues to have poor sleep, intrusive and combative requiring IM medications, increase haldol 10mg po TID, back up IM. Will add ativan 1mg po TID, also back up IM. Labs show elevated CK 2300, BUN 20, Cr 1.80, unclear baseline Cr as he does have CKD. Discussed with hospitalist Dr. Gama, to give IV fluids and monitor labs tomorrow. LFTs also elevated suspect this is secondary to elevation in CK and should trend down as CK goes down. 02/09 still agitated, creatinine and CPK slightly high as yesterday, he removed his IV line there is no big difference with IV hydration. We are changing his community role years to have more options since it is not working Abilify and Haldol 02/10 3 chemical restraints yesterday. appears more combative, and somewhat more confused. Will decrease amount of benzo and antihistamine given to him as it seems to be backfiring. did discuss with ICU attending, Dr. Whiteside possibility of transferring there but they would like us to try IV depakote and exhaust all resources prior to considering transfer. Pt did take depakote springkle 1000mg with apple sauce with much encourage. 02/11 continue tx. 02/12 continue same treatment 01/14 continue with Abilify and other court order medications, we are Nam[place] and the court order. 02/14 Team report improvement today with pt having greater comfort and less agitation. [id number] the staff reported that the patient had been less violent in the last 24 hours 02/16 continue tx. will check depakote and ammonia on 02/17 in AM. 02/17 continue regime and plan of care 02/26/2024: Continue current regimen as per court order 03/03 continue tx. lactulose for now as we don't have new ammonia level, but will try to chack labs. 03/16- continue medications, held clonidine patch for today due to low BP. repeat labs. 03/17-continue plan of care 03/18- continue tx 03/19 continue same treatment 03/20 waiting for CBC, basic metabolic panel and ammonia level. Today he nearly choked with a grape. We are going to change his diet to chopped 03/21 patient had a fall and he was assessed. No injuries as per CT scan of head and pelvis. Again he refused again his blood work vital signs within normal limits. 03/22 keep same treatment 03/23 keep same treatment 03 24 24 Continue plan of care Depakote Tegretol Haldol carbamazepine 03/25/2024 Repeat swallowing study ordered he is already on ground diet consider lowering Haldol versus Cogentin generally try to avoid older man 03/26 lowered Haldol to 7.5 p.o. b.i.d. 03/27 start Abilify Maintena 400 IM, later on we stopped it since he was over-sedated. 03/28 monitor vital signs and we will order blood work for tomorrow morning. 03/29 keep same treatment. We are deferring Abilify Maintena since the patient is still sedated and looks slightly delirious. He has refused blood work 03/31 continue current tx. less combative but no improvement in mentation. grossly disorganized and non sensical. 04/01: court ordered meds- team reviewing and optimizing same. 04/02 continue tx. 04/03 keep same treatment, so far he had been more compliant with some of the medications in the last 3 days. 04/04 start Abilify Maintena 400 mg IM 04/05 keep Haldol as prescribed 04/06 keep same treatment 04/08/24 continue current plan, regime 04/09/24 continue plan, CAT pending 04/10 continue same treatment 04/11 keep same treatment 04/12 lowering Haldol to 5 mg p.o. b.i.d. since the patient is over-sedated. 04/13 keep same treatment 04/14 agitated today, jumping around, dive off bed, crawling on all 4's, naked; took meds; now sleeping -floridly psychotic and signwriter thought best to let pt sleep 04/16 keep same treatment 04/17 Abilify Maintena 400 mg today and scheduled next for 30 days. 04/18 change Haldol to 5 mg p.o. t.i.d. with backup IM if he refuses p.o. 04/19 keep same treatment. 04/20 keep same treatment 04/21: verbally aggressive, restless. continue 1:1 and current Tx plan. 04/22: asleep, not easily rousable. restless and irritable last gwen, slept only 4 hours overnight. continue current mgmt. 04/23 add Cogentin 0.5 p.o. b.i.d. small improvement on his psychosis 04/24 continue with same treatment. 04/25 the patient fell again. Blood pressure had been okay even though that he is noncompliant with clonidine patch. We discussed the case with the medical team and they agreed that we can discontinue since he had been noncompliant of clonidine patch since March 09. Starting on propranolol 5 mg p.o. t.i.d. to target akathisia. 04/26 continue tx. 04/27 continue tx. 04/28 reviewing labs- neutropenia and thrombocytopenia worsening Plt 88, ANC 1000, consult to mohamud/onc as plan to continue depakote given that it has been very difficult to stabilize patient. Also, pt with hx of DM, not on any medications. Will obtain A1c. continues to present disorganized, delirium-like presentation. VS are stable, BP on lower side, no need for additional medication for BP. depakote level 100.1. Ammonia level wnl. Will decrease dose of depakote given pancytopenia. 04/29 will stop depakote (one as it may be contributing to pancytopenia, second because it has not shown significant improvement in mentation), continue carbamazepine, pt seen by oncology- appreciate recommendations- 04/30 continue tx. continue to monitor ANC, Plts. oncology/hem following. 05/01 speech and thought process more organized- which is improvement. sexualized remarks, unaware of unsteady gait and weakness. will repeat CBC- continue monitor pancytopenia. 05/02/24 On lithium monitor pancytopenia wbc 3.0 less confused 05/03/24 Increase lithium 300 bid monitor response watch for confusion 05/04 continue current tx, willc heck lithium level, renal function, TSH and repeat CBC on 06/10 at 7am. may need to increase haldol 05/05/24 Continue lithium and Tegretol encourage fluids check lithium TSH electrolytes continue to monitor CBC 05/06/2024 Patient seen chart reviewed case reviewed with nursing staff. Patient was somewhat more dysphoric today tried to engage in conversation had a difficult time. He slept about 4 hours did get Haldol the other day was offered p.o. Ativan p.r.n. encourage fluids with lithium avoid nonsteroidals no gross confusion or tremor 05/07 continue tx. pending labs for lithium level, TSH, cbc on 05/10. 05/08 continue tx. 05/09 pt appeared to have seizure, was given ativan 2mg IM, CMP does show elevation in BUN 23, and elevation on Cr 1.50, mild hyperkalemia 5.2. CBC shows improvement in platelets 88 to 146, ANC also improved from 800 to 2300. normocytic anemia with Hg 11, stable H&H. will decreased lithium 150mg po BID. Increase carbamazepine to 300mg po BID. Awaiting recommendation from neurology. 05/10 continue tx. monitor CMP- renal function. seen by neurology. 05/11 repeat cmp tomorrow, lowered lithium to 150mg po qhs. continue monitoring renal function. 05/12 Patient doing well, polite, organized in speech and behavior. Discussed his lab work and medication regimen which he understood. Optometrist President/Practice Owner inquired about patient's awareness of the past months which he has little memory of but says I was out of my mind... And is happy to be organized. Says he wishes there was a piano on the unit; asks signwriter about his career inappropriate, organized way. -switch to Q 15 minute checks Reviewed labs and BUN/creatinine improved; alk-phos only mildly elevated Continue with current treatment plan 05/14/24- continue monitor renal function, will also check carbamazepine level, cbc, and cmp on 05/16/2024. 05/15 continue tx. labs scheduled for 05/16 05/16 labs completed on 05/16 cbc with lower ANC 1500 (from 05/12 3200- this probably due to lowering lithium dose due to increase in BUN and Cr), Platelets trending up although slightly low 150, from 88 on 03/30/2023. Carbamazepine level 8.1 BUN 18, Cr 1.31 (improved from 05/12 BUN 20, Cr 1.46). 05/17 continue tx. 05/18 continue tx. 05/19- much improved CTP! 05/20- CTP 05/21 continue tx. BP was low this morning- 98/55, HR78, will monitor oral intake and renal function. 05/22 continue tx. will check renal function 05/23 05/23 will postpone cmp for next week, not critical at this point and pt asked if they can be done next week as he has had multiple lab work recently. 05/24 continue tx. 05/25 continue tx. asks to speak with urologist about erectile dysfunction- will defer to OP. 05/28 continue tx. 05/29 continue tx. 05/30 continue tx. 05/31 continue tx. 06/01 continue tx. 06/02: stable. asked to address ED, deferred to outpt. no questions or concerns otherwise. 06/03: stable. continue current mgmt. 06/04 labs completed, slightly elevated BUN and Cr from what seemed to be his baseline, although he does have underlying CKD stage3 [place] not making much difference in ANC at this dose and may be affecting renal function (although still close to baseline). will d/c lithium currently 150mg po qhs. 06/05 continue tx. 06/08 continue tx. Reason for continued inpatient stay Substantial Risk for: inability to function Time Spent With Patient Time: Total time managing care of this patient today ____ minutes.
[2024-06-08 19:21] VITALS: BP 124/64; PULSE 67; RESP 16; TEMP 36.2; O2SAT 98
[2024-06-09 08:00] VITALS: BP 117/68; PULSE 62; RESP 18; TEMP 36.4; O2SAT 99
[2024-06-09] MEDS: Cholecalciferol (Vitamin D3) 25 MCG TABLET 50 MCG PO (08:20)
[2024-06-09] MEDS: HaloperidoL 5 MG TABLET PO ×3 (08:20→20:09)
[2024-06-09] MEDS: Ferrous Sulfate 324 MG TABLET.DR PO (08:20)
[2024-06-09] MEDS: Ascorbic Acid 500 MG TABLET PO (08:20)
[2024-06-09] MEDS: carBAMazepine 200 MG TABLET 300 MG PO ×2 (08:20→20:09)
[2024-06-09] MEDS: Benztropine Mesylate 0.5 MG TABLET PO ×2 (08:20→20:09)
--- NOTE | 2024-06-09 18:30 | P.PNPSI_ITS ---
Subjective Subjective Date of Service: 06/09/24 Reason For Visit: Schizoaffective disorder Interim History: Pt slept through the night. He has been visible on the unit, social with select peers. He is eating well. He denies any concerns. No behavioral concerns. Intermittently goes out and plays the piano. He reports wanting to go home soon. taking medications as prescribed. Review of Systems Review of Systems No overt seizure-like symptoms Yes Unobtainable due to mental status Mental Status Exam Mental Status Exam Narrative: Appearance: fair hygiene, casual clothing, dressing self on his own, in NAD Behavior: calm; isolative Psychomotor: no agitation or retardation Speech: none observed TP: not observed TC: not observed Mood: not assessed Affect: calm, non-labile SI: none expressed HI: none expressed VH/AH: no overt signs Delusions: no overt Insight/judgment:improved, but still impaired at baseline. Memory/cog: alert, oriented to place, month, situation. Diagnostics Vital Signs (24Hr): Vital Signs - 24 hr 06/08/24 19:21 06/09/24 08:00 Temperature 97.1 F 97.5 F Pulse Rate 67 62 Respiratory Rate 16 18 Blood Pressure 124/64 117/68 Pulse Oximetry 98 99 Oxygen Delivery Method Room Air Room Air BMI result Body Mass Index 22.7 Labs 06/04/24 09:33 06/04/24 09:33 Imaging Radiology Impressions: ITS Impressions Chest X-Ray 03/20/24 08:33 IMPRESSION: Extremely limited exam. Only lateral views could be obtained. Suspect basilar airspace opacity, possibly pneumonia. Electronically signed by: Fortino Dumont MD 03/20/2024 10:10 AM EST RP Cervical Spine CT 03/21/24 11:18 IMPRESSION: 1. Allowing for suboptimal positioning, there is no CT evidence of acute cervical spine fracture or injury. 2. Degenerative changes with bulky ventral osteophytes spanning C4-C6, appearance in keeping with DISH. Electronically signed by: Fortino Dumont MD 03/21/2024 12:01 PM EST RP Head CT 03/21/24 11:18 IMPRESSION: 1. No acute intracranial abnormality. No acute fractures seen. 2. Stable chronic findings as discussed. Electronically signed by: Fortino Dumont MD 03/21/2024 11:54 AM EST RP Pelvis CT 03/21/24 11:18 IMPRESSION: 1. No acute bony abnormalities. No fractures. 2. Constipation with a large amount of stool in the rectum and sigmoid colon. 3. Mild thickening of the urinary bladder wall despite underdistention, nonspecific. Differential includes the detrusor hypertrophy, neurogenic bladder, or possibly cystitis. Electronically signed by: Fortino Dumont MD 03/21/2024 12:09 PM EST RP Head CT 03/28/24 09:37 IMPRESSION: No acute fracture, bony calvarium. No acute intracranial hemorrhage. Small vessel occlusive disease. Bifrontal bitemporal lobe atrophy. Electronically signed by: Juan Corrigan MD 03/28/2024 10:19 AM EST RP Head CT 04/25/24 12:22 IMPRESSION: No acute intracranial process seen. Electronically signed by: Ritchie Marte MD 04/25/2024 01:01 PM EST RP Medications Medications Current Medications Acetaminophen (Acetaminophen 325 Mg Tablet) 650 mg PO Q6H PRN PRN Reason: pain (1-10) Al Hydroxide/Mg Hydroxide (Magnesium Hydrox/Alum Hydrox 30 Ml Oral.Susp) 30 ml PO Q6H PRN PRN Reason: Heartburn/Nausea Aripiprazole (Aripiprazole Er 400 Mg Suser.Syr) 400 mg IM Q30D [facility] Last Admin: 05/17/24 10:49 Dose: 400 mg Ascorbic Acid (Ascorbic Acid 500 Mg Tablet) 500 mg PO DAILY [facility] Last Admin: 06/09/24 08:20 Dose: 500 mg Aspirin (Aspirin 81 Mg Tab.Chew) 81 mg PO DAILY [facility] Last Admin: 04/23/24 08:34 Dose: 81 mg Benztropine Mesylate (Benztropine Mesylate 0.5 Mg Tablet) 0.5 mg PO BID [facility] Last Admin: 06/09/24 08:20 Dose: 0.5 mg Carbamazepine (Carbamazepine 200 Mg Tablet) 300 mg PO BID [facility] Last Admin: 06/09/24 08:20 Dose: 300 mg Ferrous Sulfate (Ferrous Sulfate 324 Mg Tablet.Dr) 324 mg PO DAILY [facility] Last Admin: 06/09/24 08:20 Dose: 324 mg Haloperidol (Haloperidol 5 Mg Tablet) 5 mg PO TID [facility] Last Admin: 06/09/24 14:19 Dose: 5 mg Haloperidol Lactate (Haloperidol Lactate Oral Conc 10 Mg/5 Ml Oral.Conc) 5 mg PO Q6H PRN PRN Reason: Psychosis or severe agitation Last Admin: 05/05/24 02:37 Dose: 5 mg Haloperidol Lactate (Haloperidol Lactate 5 Mg/Ml Vial) 5 mg IM TID PRN PRN Reason: Refusal of Court PO Haldol Last Admin: 05/06/24 00:36 Dose: 5 mg Magnesium Hydroxide (Milk Of Magnesia 30 Ml Oral.Susp) 30 ml PO DAILY PRN PRN Reason: Constipation Nicotine Polacrilex (Nicotine Polacrilex 2 Mg Gum) 2 mg BUCCAL Q2H PRN PRN Reason: Nicotine Cravings Trazodone HCl (Trazodone Hcl 50 Mg Tablet) 50 mg PO BEDTIME PRN PRN Reason: Insomnia Last Admin: 05/30/24 21:16 Dose: 50 mg Vitamin D (Cholecalciferol (Vitamin D3) 25 Mcg Tablet) 50 mcg PO DAILY [facility] Last Admin: 06/09/24 08:20 Dose: 50 mcg Allergies Allergies Allergy/AdvReac Type Severity Reaction Status Date / Time lithium Allergy Unknown Verified 01/13/24 18:08 divalproex sodium AdvReac Severe encephalopa Verified 05/08/24 12:34 [From Depakote] thy Assessment & Plan Assessment & Plan (1) Schizoaffective disorder, bipolar type: Status: Acute Code(s): F25.0 - Schizoaffective disorder, bipolar type (2) Diabetes mellitus: Status: Acute Code(s): E11.9 - Type 2 diabetes mellitus without complications Assessment and Plan: A1c on 04/28 5.9% Not on current medications (3) Hypertension: Status: Acute Code(s): I10 - Essential (primary) hypertension Assessment and Plan: not on current medications (4) Pancytopenia: Status: Acute Code(s): D61.818 - Other pancytopenia Assessment and Plan: seems to be improving after dc depakote CBC on 05/09/2024--> shows improvement in platelets 88 to 146, ANC also improved from 800 to 2300. normocytic anemia with Hgb 11, stable H&H. labs completed on 05/16 cbc with lower ANC 1500 (from 05/12 3200- this probably due to lowering lithium dose due to increase in BUN and Cr), Platelets trending up although slightly low 150, from 88 on 03/30/2023. Carbamazepine level 8.1 BUN 18, Cr 1.31 (improved from 05/12 BUN 20, Cr 1.46). Labs completed 06/04/2024- CBC normocytic enemia, slightly elevated but w/in normal range MCV. Plt 153, ANC 1400. CMP elevation BUN 24, Cr 1.56, creatinine clearance 45.8. (5) Chronic kidney disease (CKD): Status: Acute Code(s): N18.9 - Chronic kidney disease, unspecified Assessment and Plan: on low dose of lithium, closely monitoring renal function. Plan 03/23 keep same treatment 68 yo from a long-term with chronic psychotic disorder, refusing medication , elevated bp and disorganized and agitated behavior requiring psychiatric hospitalization and treatment not competent to sign cv. 01/14 continue to follow - gave lambs warning today- and he says the psychology assistant will be a she- still refusing medications and quite psychotic takes alot of redirection to settle him poor adls- 01/15- Refuses meds, refuses hospitalist consult-second day File for Section Seven consideration on 01/17. Provide care as he will allow. 01/16: Depakote 250 mg bid Haldol, Lorazepam, Benadryl prn Section 7 to be filed 01/17 Message left for guardian. 01/17: Section Seven filed. . Court scheduled 01/26/24 Pt continues to refuse medicaitons. He is in need of full assist with ADL's and is incontinent. Pt transferred to [facility] this afternoon. 01/19/2024 Patient pending civil commitment loud agitated would not engage in any conversation with this keno writer / runner non informational healing agitated verbally aggressive. Every attempt being made to get a copy of the patient's Servin order unclear why this has been so problematic. Encourage food and fluids 01/19 continue same treatment 01/21/24 Patient labile agitated intrusive close labs ordered in order to per to protect the community patient wandering into patient's rooms intrusive impulsive laying on another person's bed. Often hostile agitated posturing at times we are still pending copy of reported Servin order encourage p.o. compliance 01/22/2024 Patient did require physical hold escort him out of a room that he jumped in other patient's room and on their bed while there were in it. There was no physical harm and the patient did leave the room his markedly impulsive with poor judgment remains on close observation has intermittently taken Haldol liquid pending civil commitment treatment plan there is a question of Servin order 01/22 The patient had been more agitated. We review his Servin order and we are increasing the Abilify up to 15 mg p.o. daily and adding Haldol p.r.n. since it is in his role years order. We needed to give him some p.r.n. at 14:00. 01/23 The patient is grossly psychotic disrobing and sexually disinhibited we are starting Haldol 2 mg p.o. t.i.d. to target psychosis as per court order treatment over objection order. 01/24 The patient remains very agitated and angry disruptive so we are increasing the Haldol from 2 mg to 5 mg p.o. t.i.d. with a backup IM if the patient refused as per court order. 01/25 we have increased the Haldol but still he is very psychotic and restless. Today he refused his blood work. He needed to be physically held twice. 01/26 the patient remains agitated at times but his last IM backup was yesterday. We are going to increase Abilify up to 20 mg daily to target mood lability and psychosis. 01/29/2024: Increase frequency of prn doses from tid to prn q 6mrs. Poor insight and unable to care for self 02/08 pt has not take any of mood stabilizer. continues to have poor sleep, intrusive and combative requiring IM medications, increase haldol 10mg po TID, back up IM. Will add ativan 1mg po TID, also back up IM. Labs show elevated CK 2300, BUN 20, Cr 1.80, unclear baseline Cr as he does have CKD. Discussed with hospitalist Dr. Gama, to give IV fluids and monitor labs tomorrow. LFTs also elevated suspect this is secondary to elevation in CK and should trend down as CK goes down. 02/09 still agitated, creatinine and CPK slightly high as yesterday, he removed his IV line there is no big difference with IV hydration. We are changing his community role years to have more options since it is not working Abilify and Haldol 02/10 3 chemical restraints yesterday. appears more combative, and somewhat more confused. Will decrease amount of benzo and antihistamine given to him as it seems to be backfiring. did discuss with ICU attending, Dr. Whiteside possibility of transferring there but they would like us to try IV depakote and exhaust all resources prior to considering transfer. Pt did take depakote springkle 1000mg with apple sauce with much encourage. 02/11 continue tx. 02/12 continue same treatment 01/14 continue with Abilify and other court order medications, we are Nam[place] and the court order. 02/14 Team report improvement today with pt having greater comfort and less agitation. [id number] the staff reported that the patient had been less violent in the last 24 hours 02/16 continue tx. will check depakote and ammonia on 02/17 in AM. 02/17 continue regime and plan of care 02/26/2024: Continue current regimen as per court order 03/03 continue tx. lactulose for now as we don't have new ammonia level, but will try to chack labs. 03/16- continue medications, held clonidine patch for today due to low BP. repeat labs. 03/17-continue plan of care 03/18- continue tx 03/19 continue same treatment 03/20 waiting for CBC, basic metabolic panel and ammonia level. Today he nearly choked with a grape. We are going to change his diet to chopped 03/21 patient had a fall and he was assessed. No injuries as per CT scan of head and pelvis. Again he refused again his blood work vital signs within normal limits. 03/22 keep same treatment 03/23 keep same treatment 03 24 24 Continue plan of care Depakote Tegretol Haldol carbamazepine 03/25/2024 Repeat swallowing study ordered he is already on ground diet consider lowering Haldol versus Cogentin generally try to avoid older man 03/26 lowered Haldol to 7.5 p.o. b.i.d. 03/27 start Abilify Maintena 400 IM, later on we stopped it since he was over- sedated. 03/28 monitor vital signs and we will order blood work for tomorrow morning. 03/29 keep same treatment. We are deferring Abilify Maintena since the patient is still sedated and looks slightly delirious. He has refused blood work 03/31 continue current tx. less combative but no improvement in mentation. grossly disorganized and non sensical. 04/01: court ordered meds- team reviewing and optimizing same. 04/02 continue tx. 04/03 keep same treatment, so far he had been more compliant with some of the medications in the last 3 days. 04/04 start Abilify Maintena 400 mg IM 04/05 keep Haldol as prescribed 04/06 keep same treatment 04/08/24 continue current plan, regime 04/09/24 continue plan, CAT pending 04/10 continue same treatment 04/11 keep same treatment 04/12 lowering Haldol to 5 mg p.o. b.i.d. since the patient is over-sedated. 04/13 keep same treatment 04/14 agitated today, jumping around, dive off bed, crawling on all 4's, naked; took meds; now sleeping -floridly psychotic and keno writer / runner thought best to let pt sleep 04/16 keep same treatment 04/17 Abilify Maintena 400 mg today and scheduled next for 30 days. 04/18 change Haldol to 5 mg p.o. t.i.d. with backup IM if he refuses p.o. 04/19 keep same treatment. 04/20 keep same treatment 04/21: verbally aggressive, restless. continue 1:1 and current Tx plan. 04/22: asleep, not easily rousable. restless and irritable last gwen, slept only 4 hours overnight. continue current mgmt. 04/23 add Cogentin 0.5 p.o. b.i.d. small improvement on his psychosis 04/24 continue with same treatment. 04/25 the patient fell again. Blood pressure had been okay even though that he is noncompliant with clonidine patch. We discussed the case with the medical team and they agreed that we can discontinue since he had been noncompliant of clonidine patch since March 09. Starting on propranolol 5 mg p.o. t.i.d. to target akathisia. 04/26 continue tx. 04/27 continue tx. 04/28 reviewing labs- neutropenia and thrombocytopenia worsening Plt 88, ANC 1000, consult to mohamud/onc as plan to continue depakote given that it has been very difficult to stabilize patient. Also, pt with hx of DM, not on any medications. Will obtain A1c. continues to present disorganized, delirium-like presentation. VS are stable, BP on lower side, no need for additional medication for BP. depakote level 100.1. Ammonia level wnl. Will decrease dose of depakote given pancytopenia. 04/29 will stop depakote (one as it may be contributing to pancytopenia, second because it has not shown significant improvement in mentation), continue carbamazepine, pt seen by oncology- appreciate recommendations- 04/30 continue tx. continue to monitor ANC, Plts. oncology/hem following. 05/01 speech and thought process more organized- which is improvement. sexualized remarks, unaware of unsteady gait and weakness. will repeat CBC- continue monitor pancytopenia. 05/02/24 On lithium monitor pancytopenia wbc 3.0 less confused 05/03/24 Increase lithium 300 bid monitor response watch for confusion 05/04 continue current tx, willc heck lithium level, renal function, TSH and repeat CBC on 06/10 at 7am. may need to increase haldol 05/05/24 Continue lithium and Tegretol encourage fluids check lithium TSH electrolytes continue to monitor CBC 05/06/2024 Patient seen chart reviewed case reviewed with nursing staff. Patient was somewhat more dysphoric today tried to engage in conversation had a difficult time. He slept about 4 hours did get Haldol the other day was offered p.o. Ativan p.r.n. encourage fluids with lithium avoid nonsteroidals no gross confusion or tremor 05/07 continue tx. pending labs for lithium level, TSH, cbc on 05/10. 05/08 continue tx. 05/09 pt appeared to have seizure, was given ativan 2mg IM, CMP does show elevation in BUN 23, and elevation on Cr 1.50, mild hyperkalemia 5.2. CBC shows improvement in platelets 88 to 146, ANC also improved from 800 to 2300. normocytic anemia with Hg 11, stable H&H. will decreased lithium 150mg po BID. Increase carbamazepine to 300mg po BID. Awaiting recommendation from neurology. 05/10 continue tx. monitor CMP- renal function. seen by neurology. 05/11 repeat cmp tomorrow, lowered lithium to 150mg po qhs. continue monitoring renal function. 05/12 Patient doing well, polite, organized in speech and behavior. Discussed his lab work and medication regimen which he understood. Chemical Sales Representative inquired about patient's awareness of the past months which he has little memory of but says I was out of my mind... And is happy to be organized. Says he wishes there was a piano on the unit; asks keno writer / runner about his career inappropriate, organized way. -switch to Q 15 minute checks Reviewed labs and BUN/creatinine improved; alk-phos only mildly elevated Continue with current treatment plan 05/14/24- continue monitor renal function, will also check carbamazepine level, cbc, and cmp on 05/16/2024. 05/15 continue tx. labs scheduled for 05/16 05/16 labs completed on 05/16 cbc with lower ANC 1500 (from 05/12 3200- this probably due to lowering lithium dose due to increase in BUN and Cr), Platelets trending up although slightly low 150, from 88 on 03/30/2023. Carbamazepine level 8.1 BUN 18, Cr 1.31 (improved from 05/12 BUN 20, Cr 1.46). 05/17 continue tx. 05/18 continue tx. 05/19- much improved CTP! 05/20- CTP 05/21 continue tx. BP was low this morning- 98/55, HR78, will monitor oral intake and renal function. 05/22 continue tx. will check renal function 05/23 05/23 will postpone cmp for next week, not critical at this point and pt asked if they can be done next week as he has had multiple lab work recently. 05/24 continue tx. 05/25 continue tx. asks to speak with urologist about erectile dysfunction- will defer to OP. 05/28 continue tx. 05/29 continue tx. 05/30 continue tx. 05/31 continue tx. 06/01 continue tx. 06/02: stable. asked to address ED, deferred to outpt. no questions or concerns otherwise. 06/03: stable. continue current mgmt. 06/04 labs completed, slightly elevated BUN and Cr from what seemed to be his baseline, although he does have underlying CKD stage3 [place] not making much difference in ANC at this dose and may be affecting renal function (although still close to baseline). will d/c lithium currently 150mg po qhs. 06/05 continue tx. 06/09 continue tx. Reason for continued inpatient stay Substantial Risk for: inability to function Time Spent With Patient Time: Total time managing care of this patient today ____ minutes.
[2024-06-09 20:00] VITALS: BP 110/69; PULSE 69; RESP 16; TEMP 36.3; O2SAT 99
[2024-06-10 08:00] VITALS: BP 118/67; PULSE 62; RESP 18; TEMP 36.4; O2SAT 99
[2024-06-10] MEDS: Cholecalciferol (Vitamin D3) 25 MCG TABLET 50 MCG PO (09:20)
[2024-06-10] MEDS: carBAMazepine 200 MG TABLET 300 MG PO ×2 (09:20→20:24)
[2024-06-10] MEDS: Ascorbic Acid 500 MG TABLET PO (09:21)
[2024-06-10] MEDS: Ferrous Sulfate 324 MG TABLET.DR PO (09:21)
[2024-06-10] MEDS: HaloperidoL 5 MG TABLET PO ×3 (09:21→20:24)
[2024-06-10] MEDS: Benztropine Mesylate 0.5 MG TABLET PO ×2 (09:21→20:24)
[2024-06-10 19:59] VITALS: BP 148/65; PULSE 64; RESP 18; TEMP 36.4; O2SAT 97
--- NOTE | 2024-06-10 22:26 | P.PNPSI_ITS ---
Subjective Subjective Date of Service: 06/10/24 Reason For Visit: Schizoaffective disorder Interim History: Pt slept through the night. He has been visible on the unit, social with select peers. He is eating well. He denies any concerns. No behavioral concerns. Intermittently goes out and plays the piano. He reports wanting to go home soon. taking medications as prescribed. Review of Systems Review of Systems No overt seizure-like symptoms Yes Unobtainable due to mental status Mental Status Exam Mental Status Exam Narrative: Appearance: fair hygiene, casual clothing, dressing self on his own, in NAD Behavior: calm; isolative Psychomotor: no agitation or retardation Speech: none observed TP: not observed TC: not observed Mood: not assessed Affect: calm, non-labile SI: none expressed HI: none expressed VH/AH: no overt signs Delusions: no overt Insight/judgment:improved, but still impaired at baseline. Memory/cog: alert, oriented to place, month, situation. Diagnostics Vital Signs (24Hr): Vital Signs - 24 hr 06/10/24 08:00 06/10/24 19:59 Temperature 97.5 F 97.5 F Pulse Rate 62 64 Respiratory Rate 18 18 Blood Pressure 118/67 148/65 H Pulse Oximetry 99 97 Oxygen Delivery Method Room Air Room Air BMI result Body Mass Index 22.7 Labs 06/04/24 09:33 06/04/24 09:33 Imaging Radiology Impressions: ITS Impressions Chest X-Ray 03/20/24 08:33 IMPRESSION: Extremely limited exam. Only lateral views could be obtained. Suspect basilar airspace opacity, possibly pneumonia. Electronically signed by: Fortino Dumont MD 03/20/2024 10:10 AM EST RP Cervical Spine CT 03/21/24 11:18 IMPRESSION: 1. Allowing for suboptimal positioning, there is no CT evidence of acute cervical spine fracture or injury. 2. Degenerative changes with bulky ventral osteophytes spanning C4-C6, appearance in keeping with DISH. Electronically signed by: Fortino Dumont MD 03/21/2024 12:01 PM EST RP Head CT 03/21/24 11:18 IMPRESSION: 1. No acute intracranial abnormality. No acute fractures seen. 2. Stable chronic findings as discussed. Electronically signed by: Fortino Dumont MD 03/21/2024 11:54 AM EST RP Pelvis CT 03/21/24 11:18 IMPRESSION: 1. No acute bony abnormalities. No fractures. 2. Constipation with a large amount of stool in the rectum and sigmoid colon. 3. Mild thickening of the urinary bladder wall despite underdistention, nonspecific. Differential includes the detrusor hypertrophy, neurogenic bladder, or possibly cystitis. Electronically signed by: Fortino Dumont MD 03/21/2024 12:09 PM EST RP Head CT 03/28/24 09:37 IMPRESSION: No acute fracture, bony calvarium. No acute intracranial hemorrhage. Small vessel occlusive disease. Bifrontal bitemporal lobe atrophy. Electronically signed by: Juan Corrigan MD 03/28/2024 10:19 AM EST RP Head CT 04/25/24 12:22 IMPRESSION: No acute intracranial process seen. Electronically signed by: Ritchie Marte MD 04/25/2024 01:01 PM EST RP Medications Medications Current Medications Acetaminophen (Acetaminophen 325 Mg Tablet) 650 mg PO Q6H PRN PRN Reason: pain (1-10) Al Hydroxide/Mg Hydroxide (Magnesium Hydrox/Alum Hydrox 30 Ml Oral.Susp) 30 ml PO Q6H PRN PRN Reason: Heartburn/Nausea Aripiprazole (Aripiprazole Er 400 Mg Suser.Syr) 400 mg IM Q30D [facility] Last Admin: 05/17/24 10:49 Dose: 400 mg Ascorbic Acid (Ascorbic Acid 500 Mg Tablet) 500 mg PO DAILY [facility] Last Admin: 06/10/24 09:21 Dose: 500 mg Aspirin (Aspirin 81 Mg Tab.Chew) 81 mg PO DAILY [facility] Last Admin: 04/23/24 08:34 Dose: 81 mg Benztropine Mesylate (Benztropine Mesylate 0.5 Mg Tablet) 0.5 mg PO BID [facility] Last Admin: 06/10/24 20:24 Dose: 0.5 mg Carbamazepine (Carbamazepine 200 Mg Tablet) 300 mg PO BID [facility] Last Admin: 06/10/24 20:24 Dose: 300 mg Ferrous Sulfate (Ferrous Sulfate 324 Mg Tablet.Dr) 324 mg PO DAILY [facility] Last Admin: 06/10/24 09:21 Dose: 324 mg Haloperidol (Haloperidol 5 Mg Tablet) 5 mg PO TID [facility] Last Admin: 06/10/24 20:24 Dose: 5 mg Haloperidol Lactate (Haloperidol Lactate Oral Conc 10 Mg/5 Ml Oral.Conc) 5 mg PO Q6H PRN PRN Reason: Psychosis or severe agitation Last Admin: 05/05/24 02:37 Dose: 5 mg Haloperidol Lactate (Haloperidol Lactate 5 Mg/Ml Vial) 5 mg IM TID PRN PRN Reason: Refusal of Court PO Haldol Last Admin: 05/06/24 00:36 Dose: 5 mg Magnesium Hydroxide (Milk Of Magnesia 30 Ml Oral.Susp) 30 ml PO DAILY PRN PRN Reason: Constipation Nicotine Polacrilex (Nicotine Polacrilex 2 Mg Gum) 2 mg BUCCAL Q2H PRN PRN Reason: Nicotine Cravings Trazodone HCl (Trazodone Hcl 50 Mg Tablet) 50 mg PO BEDTIME PRN PRN Reason: Insomnia Last Admin: 05/30/24 21:16 Dose: 50 mg Vitamin D (Cholecalciferol (Vitamin D3) 25 Mcg Tablet) 50 mcg PO DAILY [facility] Last Admin: 06/10/24 09:20 Dose: 50 mcg Allergies Allergies Allergy/AdvReac Type Severity Reaction Status Date / Time lithium Allergy Unknown Verified 01/13/24 18:08 divalproex sodium AdvReac Severe encephalopa Verified 05/08/24 12:34 [From Depakote] thy Assessment & Plan Assessment & Plan (1) Schizoaffective disorder, bipolar type: Status: Acute Code(s): F25.0 - Schizoaffective disorder, bipolar type (2) Diabetes mellitus: Status: Acute Code(s): E11.9 - Type 2 diabetes mellitus without complications Assessment and Plan: A1c on 04/28 5.9% Not on current medications (3) Hypertension: Status: Acute Code(s): I10 - Essential (primary) hypertension Assessment and Plan: not on current medications (4) Pancytopenia: Status: Acute Code(s): D61.818 - Other pancytopenia Assessment and Plan: seems to be improving after dc depakote CBC on 05/09/2024--> shows improvement in platelets 88 to 146, ANC also improved from 800 to 2300. normocytic anemia with Hgb 11, stable H&H. labs completed on 05/16 cbc with lower ANC 1500 (from 05/12 3200- this probably due to lowering lithium dose due to increase in BUN and Cr), Platelets trending up although slightly low 150, from 88 on 03/30/2023. Carbamazepine level 8.1 BUN 18, Cr 1.31 (improved from 05/12 BUN 20, Cr 1.46). Labs completed 06/04/2024- CBC normocytic enemia, slightly elevated but w/in normal range MCV. Plt 153, ANC 1400. CMP elevation BUN 24, Cr 1.56, creatinine clearance 45.8. (5) Chronic kidney disease (CKD): Status: Acute Code(s): N18.9 - Chronic kidney disease, unspecified Assessment and Plan: on low dose of lithium, closely monitoring renal function. Plan 03/23 keep same treatment 68 yo from a nursing home with chronic psychotic disorder, refusing medication , elevated bp and disorganized and agitated behavior requiring psychiatric hospitalization and treatment not competent to sign cv. 01/14 continue to follow - gave lambs warning today- and he says the site specialist will be a she- still refusing medications and quite psychotic takes alot of redirection to settle him poor adls- 01/15- Refuses meds, refuses hospitalist consult-second day File for Section Seven consideration on 01/17. Provide care as he will allow. 01/16: Depakote 250 mg bid Haldol, Lorazepam, Benadryl prn Section 7 to be filed 01/17 Message left for guardian. 01/17: Section Seven filed. . Court scheduled 01/26/24 Pt continues to refuse medicaitons. He is in need of full assist with ADL's and is incontinent. Pt transferred to [facility] this afternoon. 01/19/2024 Patient pending civil commitment loud agitated would not engage in any conversation with this creative writer non informational healing agitated verbally aggressive. Every attempt being made to get a copy of the patient's Servin order unclear why this has been so problematic. Encourage food and fluids 01/19 continue same treatment 01/21/24 Patient labile agitated intrusive close labs ordered in order to per to protect the community patient wandering into patient's rooms intrusive impulsive laying on another person's bed. Often hostile agitated posturing at times we are still pending copy of reported Servin order encourage p.o. compliance 01/22/2024 Patient did require physical hold escort him out of a room that he jumped in other patient's room and on their bed while there were in it. There was no physical harm and the patient did leave the room his markedly impulsive with poor judgment remains on close observation has intermittently taken Haldol liquid pending civil commitment treatment plan there is a question of Servin order 01/22 The patient had been more agitated. We review his Servin order and we are increasing the Abilify up to 15 mg p.o. daily and adding Haldol p.r.n. since it is in his role years order. We needed to give him some p.r.n. at 14:00. 01/23 The patient is grossly psychotic disrobing and sexually disinhibited we are starting Haldol 2 mg p.o. t.i.d. to target psychosis as per court order treatment over objection order. 01/24 The patient remains very agitated and angry disruptive so we are increasing the Haldol from 2 mg to 5 mg p.o. t.i.d. with a backup IM if the patient refused as per court order. 01/25 we have increased the Haldol but still he is very psychotic and restless. Today he refused his blood work. He needed to be physically held twice. 01/26 the patient remains agitated at times but his last IM backup was yesterday. We are going to increase Abilify up to 20 mg daily to target mood lability and psychosis. 01/29/2024: Increase frequency of prn doses from tid to prn q 6mrs. Poor insight and unable to care for self 02/08 pt has not take any of mood stabilizer. continues to have poor sleep, intrusive and combative requiring IM medications, increase haldol 10mg po TID, back up IM. Will add ativan 1mg po TID, also back up IM. Labs show elevated CK 2300, BUN 20, Cr 1.80, unclear baseline Cr as he does have CKD. Discussed with hospitalist Dr. Gama, to give IV fluids and monitor labs tomorrow. LFTs also elevated suspect this is secondary to elevation in CK and should trend down as CK goes down. 02/09 still agitated, creatinine and CPK slightly high as yesterday, he removed his IV line there is no big difference with IV hydration. We are changing his community role years to have more options since it is not working Abilify and Haldol 02/10 3 chemical restraints yesterday. appears more combative, and somewhat more confused. Will decrease amount of benzo and antihistamine given to him as it seems to be backfiring. did discuss with ICU attending, Dr. Whiteside possibility of transferring there but they would like us to try IV depakote and exhaust all resources prior to considering transfer. Pt did take depakote springkle 1000mg with apple sauce with much encourage. 02/11 continue tx. 02/12 continue same treatment 01/14 continue with Abilify and other court order medications, we are Nam[place] and the court order. 02/14 Team report improvement today with pt having greater comfort and less agitation. [id number] the staff reported that the patient had been less violent in the last 24 hours 02/16 continue tx. will check depakote and ammonia on 02/17 in AM. 02/17 continue regime and plan of care 02/26/2024: Continue current regimen as per court order 03/03 continue tx. lactulose for now as we don't have new ammonia level, but will try to chack labs. 03/16- continue medications, held clonidine patch for today due to low BP. repeat labs. 03/17-continue plan of care 03/18- continue tx 03/19 continue same treatment 03/20 waiting for CBC, basic metabolic panel and ammonia level. Today he nearly choked with a grape. We are going to change his diet to chopped 03/21 patient had a fall and he was assessed. No injuries as per CT scan of head and pelvis. Again he refused again his blood work vital signs within normal limits. 03/22 keep same treatment 03/23 keep same treatment 03 24 24 Continue plan of care Depakote Tegretol Haldol carbamazepine 03/25/2024 Repeat swallowing study ordered he is already on ground diet consider lowering Haldol versus Cogentin generally try to avoid older man 03/26 lowered Haldol to 7.5 p.o. b.i.d. 03/27 start Abilify Maintena 400 IM, later on we stopped it since he was over- sedated. 03/28 monitor vital signs and we will order blood work for tomorrow morning. 03/29 keep same treatment. We are deferring Abilify Maintena since the patient is still sedated and looks slightly delirious. He has refused blood work 03/31 continue current tx. less combative but no improvement in mentation. grossly disorganized and non sensical. 04/01: court ordered meds- team reviewing and optimizing same. 04/02 continue tx. 04/03 keep same treatment, so far he had been more compliant with some of the medications in the last 3 days. 04/04 start Abilify Maintena 400 mg IM 04/05 keep Haldol as prescribed 04/06 keep same treatment 04/08/24 continue current plan, regime 04/09/24 continue plan, CAT pending 04/10 continue same treatment 04/11 keep same treatment 04/12 lowering Haldol to 5 mg p.o. b.i.d. since the patient is over-sedated. 04/13 keep same treatment 04/14 agitated today, jumping around, dive off bed, crawling on all 4's, naked; took meds; now sleeping -floridly psychotic and creative writer thought best to let pt sleep 04/16 keep same treatment 04/17 Abilify Maintena 400 mg today and scheduled next for 30 days. 04/18 change Haldol to 5 mg p.o. t.i.d. with backup IM if he refuses p.o. 04/19 keep same treatment. 04/20 keep same treatment 04/21: verbally aggressive, restless. continue 1:1 and current Tx plan. 04/22: asleep, not easily rousable. restless and irritable last gwen, slept only 4 hours overnight. continue current mgmt. 04/23 add Cogentin 0.5 p.o. b.i.d. small improvement on his psychosis 04/24 continue with same treatment. 04/25 the patient fell again. Blood pressure had been okay even though that he is noncompliant with clonidine patch. We discussed the case with the medical team and they agreed that we can discontinue since he had been noncompliant of clonidine patch since March 09. Starting on propranolol 5 mg p.o. t.i.d. to target akathisia. 04/26 continue tx. 04/27 continue tx. 04/28 reviewing labs- neutropenia and thrombocytopenia worsening Plt 88, ANC 1000, consult to mohamud/onc as plan to continue depakote given that it has been very difficult to stabilize patient. Also, pt with hx of DM, not on any medications. Will obtain A1c. continues to present disorganized, delirium-like presentation. VS are stable, BP on lower side, no need for additional medication for BP. depakote level 100.1. Ammonia level wnl. Will decrease dose of depakote given pancytopenia. 04/29 will stop depakote (one as it may be contributing to pancytopenia, second because it has not shown significant improvement in mentation), continue carbamazepine, pt seen by oncology- appreciate recommendations- 04/30 continue tx. continue to monitor ANC, Plts. oncology/hem following. 05/01 speech and thought process more organized- which is improvement. sexualized remarks, unaware of unsteady gait and weakness. will repeat CBC- continue monitor pancytopenia. 05/02/24 On lithium monitor pancytopenia wbc 3.0 less confused 05/03/24 Increase lithium 300 bid monitor response watch for confusion 05/04 continue current tx, willc heck lithium level, renal function, TSH and repeat CBC on 06/10 at 7am. may need to increase haldol 05/05/24 Continue lithium and Tegretol encourage fluids check lithium TSH electrolytes continue to monitor CBC 05/06/2024 Patient seen chart reviewed case reviewed with nursing staff. Patient was somewhat more dysphoric today tried to engage in conversation had a difficult time. He slept about 4 hours did get Haldol the other day was offered p.o. Ativan p.r.n. encourage fluids with lithium avoid nonsteroidals no gross confusion or tremor 05/07 continue tx. pending labs for lithium level, TSH, cbc on 05/10. 05/08 continue tx. 05/09 pt appeared to have seizure, was given ativan 2mg IM, CMP does show elevation in BUN 23, and elevation on Cr 1.50, mild hyperkalemia 5.2. CBC shows improvement in platelets 88 to 146, ANC also improved from 800 to 2300. normocytic anemia with Hg 11, stable H&H. will decreased lithium 150mg po BID. Increase carbamazepine to 300mg po BID. Awaiting recommendation from neurology. 05/10 continue tx. monitor CMP- renal function. seen by neurology. 05/11 repeat cmp tomorrow, lowered lithium to 150mg po qhs. continue monitoring renal function. 05/12 Patient doing well, polite, organized in speech and behavior. Discussed his lab work and medication regimen which he understood. Houseman inquired about patient's awareness of the past months which he has little memory of but says I was out of my mind... And is happy to be organized. Says he wishes there was a piano on the unit; asks creative writer about his career inappropriate, organized way. -switch to Q 15 minute checks Reviewed labs and BUN/creatinine improved; alk-phos only mildly elevated Continue with current treatment plan 05/14/24- continue monitor renal function, will also check carbamazepine level, cbc, and cmp on 05/16/2024. 05/15 continue tx. labs scheduled for 05/16 05/16 labs completed on 05/16 cbc with lower ANC 1500 (from 05/12 3200- this probably due to lowering lithium dose due to increase in BUN and Cr), Platelets trending up although slightly low 150, from 88 on 03/30/2023. Carbamazepine level 8.1 BUN 18, Cr 1.31 (improved from 05/12 BUN 20, Cr 1.46). 05/17 continue tx. 05/18 continue tx. 05/19- much improved CTP! 05/20- CTP 05/21 continue tx. BP was low this morning- 98/55, HR78, will monitor oral intake and renal function. 05/22 continue tx. will check renal function 05/23 05/23 will postpone cmp for next week, not critical at this point and pt asked if they can be done next week as he has had multiple lab work recently. 05/24 continue tx. 05/25 continue tx. asks to speak with urologist about erectile dysfunction- will defer to OP. 05/28 continue tx. 05/29 continue tx. 05/30 continue tx. 05/31 continue tx. 06/01 continue tx. 06/02: stable. asked to address ED, deferred to outpt. no questions or concerns otherwise. 06/03: stable. continue current mgmt. 06/04 labs completed, slightly elevated BUN and Cr from what seemed to be his baseline, although he does have underlying CKD stage3 [place] not making much difference in ANC at this dose and may be affecting renal function (although still close to baseline). will d/c lithium currently 150mg po qhs. 06/05 continue tx. 06/06 continue tx. 06/10 continue tx. Reason for continued inpatient stay Substantial Risk for: inability to function Time Spent With Patient Time: Total time managing care of this patient today ____ minutes.
[2024-06-11] MEDS: Benztropine Mesylate 0.5 MG TABLET PO ×2 (08:42→20:30)
[2024-06-11] MEDS: Ferrous Sulfate 324 MG TABLET.DR PO (08:43)
[2024-06-11] MEDS: Cholecalciferol (Vitamin D3) 25 MCG TABLET 50 MCG PO (08:43)
[2024-06-11] MEDS: Ascorbic Acid 500 MG TABLET PO (08:44)
[2024-06-11] MEDS: carBAMazepine 200 MG TABLET 300 MG PO ×2 (08:44→20:31)
[2024-06-11] MEDS: HaloperidoL 5 MG TABLET PO ×3 (08:44→20:30)
[2024-06-11 08:46] VITALS: BP 138/65; PULSE 61; RESP 20; TEMP 36.3; O2SAT 100
[2024-06-11 20:00] VITALS: BP 120/63; PULSE 68; TEMP 36.2; O2SAT 99
--- NOTE | 2024-06-11 20:19 | P.PNPSI_ITS ---
Subjective Subjective Date of Service: 06/11/24 Reason For Visit: Schizoaffective disorder Interim History: Pt slept through the night. He has been visible on the unit, social with select peers. He is eating well. He denies any concerns. No behavioral concerns. Intermittently goes out and plays the piano. He reports wanting to go home soon. taking medications as prescribed. Review of Systems Review of Systems No overt seizure-like symptoms Yes Unobtainable due to mental status Mental Status Exam Mental Status Exam Narrative: Appearance: fair hygiene, casual clothing, dressing self on his own, in NAD Behavior: calm; isolative Psychomotor: no agitation or retardation Speech: none observed TP: not observed TC: not observed Mood: not assessed Affect: calm, non-labile SI: none expressed HI: none expressed VH/AH: no overt signs Delusions: no overt Insight/judgment:improved, but still impaired at baseline. Memory/cog: alert, oriented to place, month, situation. Diagnostics Vital Signs (24Hr): Vital Signs - 24 hr 06/11/24 08:46 Temperature 97.4 F Pulse Rate 61 Respiratory Rate 20 Blood Pressure 138/65 Pulse Oximetry 100 Oxygen Delivery Method Room Air BMI result Body Mass Index 22.7 Labs 06/04/24 09:33 06/04/24 09:33 Imaging Radiology Impressions: ITS Impressions Chest X-Ray 03/20/24 08:33 IMPRESSION: Extremely limited exam. Only lateral views could be obtained. Suspect basilar airspace opacity, possibly pneumonia. Electronically signed by: Fortino Dumont MD 03/20/2024 10:10 AM EST RP Cervical Spine CT 03/21/24 11:18 IMPRESSION: 1. Allowing for suboptimal positioning, there is no CT evidence of acute cervical spine fracture or injury. 2. Degenerative changes with bulky ventral osteophytes spanning C4-C6, appearance in keeping with DISH. Electronically signed by: Fortino Dumont MD 03/21/2024 12:01 PM EST RP Head CT 03/21/24 11:18 IMPRESSION: 1. No acute intracranial abnormality. No acute fractures seen. 2. Stable chronic findings as discussed. Electronically signed by: Fortino Dumont MD 03/21/2024 11:54 AM EST RP Pelvis CT 03/21/24 11:18 IMPRESSION: 1. No acute bony abnormalities. No fractures. 2. Constipation with a large amount of stool in the rectum and sigmoid colon. 3. Mild thickening of the urinary bladder wall despite underdistention, nonspecific. Differential includes the detrusor hypertrophy, neurogenic bladder, or possibly cystitis. Electronically signed by: Fortino Dumont MD 03/21/2024 12:09 PM EST RP Head CT 03/28/24 09:37 IMPRESSION: No acute fracture, bony calvarium. No acute intracranial hemorrhage. Small vessel occlusive disease. Bifrontal bitemporal lobe atrophy. Electronically signed by: Juan Corrigan MD 03/28/2024 10:19 AM EST RP Head CT 04/25/24 12:22 IMPRESSION: No acute intracranial process seen. Electronically signed by: Ritchie Marte MD 04/25/2024 01:01 PM EST RP Medications Medications Current Medications Acetaminophen (Acetaminophen 325 Mg Tablet) 650 mg PO Q6H PRN PRN Reason: pain (1-10) Al Hydroxide/Mg Hydroxide (Magnesium Hydrox/Alum Hydrox 30 Ml Oral.Susp) 30 ml PO Q6H PRN PRN Reason: Heartburn/Nausea Aripiprazole (Aripiprazole Er 400 Mg Suser.Syr) 400 mg IM Q30D [facility] Last Admin: 05/17/24 10:49 Dose: 400 mg Ascorbic Acid (Ascorbic Acid 500 Mg Tablet) 500 mg PO DAILY [facility] Last Admin: 06/11/24 08:44 Dose: 500 mg Aspirin (Aspirin 81 Mg Tab.Chew) 81 mg PO DAILY [facility] Last Admin: 04/23/24 08:34 Dose: 81 mg Benztropine Mesylate (Benztropine Mesylate 0.5 Mg Tablet) 0.5 mg PO BID [facility] Last Admin: 06/11/24 08:42 Dose: 0.5 mg Carbamazepine (Carbamazepine 200 Mg Tablet) 300 mg PO BID [facility] Last Admin: 06/11/24 08:44 Dose: 300 mg Ferrous Sulfate (Ferrous Sulfate 324 Mg Tablet.) 324 mg PO DAILY [facility] Last Admin: 06/11/24 08:43 Dose: 324 mg Haloperidol (Haloperidol 5 Mg Tablet) 5 mg PO TID [facility] Last Admin: 06/11/24 15:14 Dose: 5 mg Haloperidol Lactate (Haloperidol Lactate Oral Conc 10 Mg/5 Ml Oral.Conc) 5 mg PO Q6H PRN PRN Reason: Psychosis or severe agitation Last Admin: 05/05/24 02:37 Dose: 5 mg Haloperidol Lactate (Haloperidol Lactate 5 Mg/Ml Vial) 5 mg IM TID PRN PRN Reason: Refusal of Court PO Haldol Last Admin: 05/06/24 00:36 Dose: 5 mg Magnesium Hydroxide (Milk Of Magnesia 30 Ml Oral.Susp) 30 ml PO DAILY PRN PRN Reason: Constipation Nicotine Polacrilex (Nicotine Polacrilex 2 Mg Gum) 2 mg BUCCAL Q2H PRN PRN Reason: Nicotine Cravings Trazodone HCl (Trazodone Hcl 50 Mg Tablet) 50 mg PO BEDTIME PRN PRN Reason: Insomnia Last Admin: 05/30/24 21:16 Dose: 50 mg Vitamin D (Cholecalciferol (Vitamin D3) 25 Mcg Tablet) 50 mcg PO DAILY [facility] Last Admin: 06/11/24 08:43 Dose: 50 mcg Allergies Allergies Allergy/AdvReac Type Severity Reaction Status Date / Time lithium Allergy Unknown Verified 01/13/24 18:08 divalproex sodium AdvReac Severe encephalopa Verified 05/08/24 12:34 [From Depakote] thy Assessment & Plan Assessment & Plan (1) Schizoaffective disorder, bipolar type: Status: Acute Code(s): F25.0 - Schizoaffective disorder, bipolar type (2) Diabetes mellitus: Status: Acute Code(s): E11.9 - Type 2 diabetes mellitus without complications Assessment and Plan: A1c on 04/28 5.9% Not on current medications (3) Hypertension: Status: Acute Code(s): I10 - Essential (primary) hypertension Assessment and Plan: not on current medications (4) Pancytopenia: Status: Acute Code(s): D61.818 - Other pancytopenia Assessment and Plan: seems to be improving after dc depakote CBC on 05/09/2024--> shows improvement in platelets 88 to 146, ANC also improved from 800 to 2300. normocytic anemia with Hgb 11, stable H&H. labs completed on 05/16 cbc with lower ANC 1500 (from 05/12 3200- this probably due to lowering lithium dose due to increase in BUN and Cr), Platelets trending up although slightly low 150, from 88 on 03/30/2023. Carbamazepine level 8.1 BUN 18, Cr 1.31 (improved from 05/12 BUN 20, Cr 1.46). Labs completed 06/04/2024- CBC normocytic enemia, slightly elevated but w/in normal range MCV. Plt 153, ANC 1400. CMP elevation BUN 24, Cr 1.56, creatinine clearance 45.8. (5) Chronic kidney disease (CKD): Status: Acute Code(s): N18.9 - Chronic kidney disease, unspecified Assessment and Plan: on low dose of lithium, closely monitoring renal function. Plan 03/23 keep same treatment 68 yo from a nursing home with chronic psychotic disorder, refusing medication , elevated bp and disorganized and agitated behavior requiring psychiatric hospitalization and treatment not competent to sign cv. 01/14 continue to follow - gave lambs warning today- and he says the study assistant will be a she- still refusing medications and quite psychotic takes alot of redirection to settle him poor adls- 01/15- Refuses meds, refuses hospitalist consult-second day File for Section Seven consideration on 01/17. Provide care as he will allow. 01/16: Depakote 250 mg bid Haldol, Lorazepam, Benadryl prn Section 7 to be filed 01/17 Message left for guardian. 01/17: Section Seven filed. . Court scheduled 01/26/24 Pt continues to refuse medicaitons. He is in need of full assist with ADL's and is incontinent. Pt transferred to [facility] this afternoon. 01/19/2024 Patient pending civil commitment loud agitated would not engage in any conversation with this property underwriter non informational healing agitated verbally aggressive. Every attempt being made to get a copy of the patient's Servin order unclear why this has been so problematic. Encourage food and fluids 01/19 continue same treatment 01/21/24 Patient labile agitated intrusive close labs ordered in order to per to protect the community patient wandering into patient's rooms intrusive impulsive laying on another person's bed. Often hostile agitated posturing at times we are still pending copy of reported Servin order encourage p.o. compliance 01/22/2024 Patient did require physical hold escort him out of a room that he jumped in other patient's room and on their bed while there were in it. There was no physical harm and the patient did leave the room his markedly impulsive with poor judgment remains on close observation has intermittently taken Haldol liquid pending civil commitment treatment plan there is a question of Servin order 01/22 The patient had been more agitated. We review his Servin order and we are increasing the Abilify up to 15 mg p.o. daily and adding Haldol p.r.n. since it is in his role years order. We needed to give him some p.r.n. at 14:00. 01/23 The patient is grossly psychotic disrobing and sexually disinhibited we are starting Haldol 2 mg p.o. t.i.d. to target psychosis as per court order treatment over objection order. 01/24 The patient remains very agitated and angry disruptive so we are increasing the Haldol from 2 mg to 5 mg p.o. t.i.d. with a backup IM if the patient refused as per court order. 01/25 we have increased the Haldol but still he is very psychotic and restless. Today he refused his blood work. He needed to be physically held twice. 01/26 the patient remains agitated at times but his last IM backup was yesterday. We are going to increase Abilify up to 20 mg daily to target mood lability and psychosis. 01/29/2024: Increase frequency of prn doses from tid to prn q 6mrs. Poor insight and unable to care for self 02/08 pt has not take any of mood stabilizer. continues to have poor sleep, intrusive and combative requiring IM medications, increase haldol 10mg po TID, back up IM. Will add ativan 1mg po TID, also back up IM. Labs show elevated CK 2300, BUN 20, Cr 1.80, unclear baseline Cr as he does have CKD. Discussed with hospitalist Dr. Gama, to give IV fluids and monitor labs tomorrow. LFTs also elevated suspect this is secondary to elevation in CK and should trend down as CK goes down. 02/09 still agitated, creatinine and CPK slightly high as yesterday, he removed his IV line there is no big difference with IV hydration. We are changing his community role years to have more options since it is not working Abilify and Haldol 02/10 3 chemical restraints yesterday. appears more combative, and somewhat more confused. Will decrease amount of benzo and antihistamine given to him as it seems to be backfiring. did discuss with ICU attending, Dr. Whiteside possibility of transferring there but they would like us to try IV depakote and exhaust all resources prior to considering transfer. Pt did take depakote springkle 1000mg with apple sauce with much encourage. 02/11 continue tx. 02/12 continue same treatment 01/14 continue with Abilify and other court order medications, we are Nam[place] and the court order. 02/14 Team report improvement today with pt having greater comfort and less agitation. [id number] the staff reported that the patient had been less violent in the last 24 hours 02/16 continue tx. will check depakote and ammonia on 02/17 in AM. 02/17 continue regime and plan of care 02/26/2024: Continue current regimen as per court order 03/03 continue tx. lactulose for now as we don't have new ammonia level, but will try to chack labs. 03/16- continue medications, held clonidine patch for today due to low BP. repeat labs. 03/17-continue plan of care 03/18- continue tx 03/19 continue same treatment 03/20 waiting for CBC, basic metabolic panel and ammonia level. Today he nearly choked with a grape. We are going to change his diet to chopped 03/21 patient had a fall and he was assessed. No injuries as per CT scan of head and pelvis. Again he refused again his blood work vital signs within normal limits. 03/22 keep same treatment 03/23 keep same treatment 03 24 24 Continue plan of care Depakote Tegretol Haldol carbamazepine 03/25/2024 Repeat swallowing study ordered he is already on ground diet consider lowering Haldol versus Cogentin generally try to avoid older man 03/26 lowered Haldol to 7.5 p.o. b.i.d. 03/27 start Abilify Maintena 400 IM, later on we stopped it since he was over- sedated. 03/28 monitor vital signs and we will order blood work for tomorrow morning. 03/29 keep same treatment. We are deferring Abilify Maintena since the patient is still sedated and looks slightly delirious. He has refused blood work 03/31 continue current tx. less combative but no improvement in mentation. grossly disorganized and non sensical. 04/01: court ordered meds- team reviewing and optimizing same. 04/02 continue tx. 04/03 keep same treatment, so far he had been more compliant with some of the medications in the last 3 days. 04/04 start Abilify Maintena 400 mg IM 04/05 keep Haldol as prescribed 04/06 keep same treatment 04/08/24 continue current plan, regime 04/09/24 continue plan, CAT pending 04/10 continue same treatment 04/11 keep same treatment 04/12 lowering Haldol to 5 mg p.o. b.i.d. since the patient is over-sedated. 04/13 keep same treatment 04/14 agitated today, jumping around, dive off bed, crawling on all 4's, naked; took meds; now sleeping -floridly psychotic and property underwriter thought best to let pt sleep 04/16 keep same treatment 04/17 Abilify Maintena 400 mg today and scheduled next for 30 days. 04/18 change Haldol to 5 mg p.o. t.i.d. with backup IM if he refuses p.o. 04/19 keep same treatment. 04/20 keep same treatment 04/21: verbally aggressive, restless. continue 1:1 and current Tx plan. 04/22: asleep, not easily rousable. restless and irritable last gwen, slept only 4 hours overnight. continue current mgmt. 04/23 add Cogentin 0.5 p.o. b.i.d. small improvement on his psychosis 04/24 continue with same treatment. 04/25 the patient fell again. Blood pressure had been okay even though that he is noncompliant with clonidine patch. We discussed the case with the medical team and they agreed that we can discontinue since he had been noncompliant of clonidine patch since March 09. Starting on propranolol 5 mg p.o. t.i.d. to target akathisia. 04/26 continue tx. 04/27 continue tx. 04/28 reviewing labs- neutropenia and thrombocytopenia worsening Plt 88, ANC 1000, consult to mohamud/onc as plan to continue depakote given that it has been very difficult to stabilize patient. Also, pt with hx of DM, not on any medications. Will obtain A1c. continues to present disorganized, delirium-like presentation. VS are stable, BP on lower side, no need for additional medication for BP. depakote level 100.1. Ammonia level wnl. Will decrease dose of depakote given pancytopenia. 04/29 will stop depakote (one as it may be contributing to pancytopenia, second because it has not shown significant improvement in mentation), continue carbamazepine, pt seen by oncology- appreciate recommendations- 04/30 continue tx. continue to monitor ANC, Plts. oncology/hem following. 05/01 speech and thought process more organized- which is improvement. sexualized remarks, unaware of unsteady gait and weakness. will repeat CBC- continue monitor pancytopenia. 05/02/24 On lithium monitor pancytopenia wbc 3.0 less confused 05/03/24 Increase lithium 300 bid monitor response watch for confusion 05/04 continue current tx, willc heck lithium level, renal function, TSH and repeat CBC on 06/10 at 7am. may need to increase haldol 05/05/24 Continue lithium and Tegretol encourage fluids check lithium TSH electrolytes continue to monitor CBC 05/06/2024 Patient seen chart reviewed case reviewed with nursing staff. Patient was somewhat more dysphoric today tried to engage in conversation had a difficult time. He slept about 4 hours did get Haldol the other day was offered p.o. Ativan p.r.n. encourage fluids with lithium avoid nonsteroidals no gross confusion or tremor 05/07 continue tx. pending labs for lithium level, TSH, cbc on 05/10. 05/08 continue tx. 05/09 pt appeared to have seizure, was given ativan 2mg IM, CMP does show elevation in BUN 23, and elevation on Cr 1.50, mild hyperkalemia 5.2. CBC shows improvement in platelets 88 to 146, ANC also improved from 800 to 2300. normocytic anemia with Hg 11, stable H&H. will decreased lithium 150mg po BID. Increase carbamazepine to 300mg po BID. Awaiting recommendation from neurology. 05/10 continue tx. monitor CMP- renal function. seen by neurology. 05/11 repeat cmp tomorrow, lowered lithium to 150mg po qhs. continue monitoring renal function. 05/12 Patient doing well, polite, organized in speech and behavior. Discussed his lab work and medication regimen which he understood. Sand Analyst inquired about patient's awareness of the past months which he has little memory of but says I was out of my mind... And is happy to be organized. Says he wishes there was a piano on the unit; asks property underwriter about his career inappropriate, organized way. -switch to Q 15 minute checks Reviewed labs and BUN/creatinine improved; alk-phos only mildly elevated Continue with current treatment plan 05/14/24- continue monitor renal function, will also check carbamazepine level, cbc, and cmp on 05/16/2024. 05/15 continue tx. labs scheduled for 05/16 05/16 labs completed on 05/16 cbc with lower ANC 1500 (from 05/12 3200- this probably due to lowering lithium dose due to increase in BUN and Cr), Platelets trending up although slightly low 150, from 88 on 03/30/2023. Carbamazepine level 8.1 BUN 18, Cr 1.31 (improved from 05/12 BUN 20, Cr 1.46). 05/17 continue tx. 05/18 continue tx. 05/19- much improved CTP! 05/20- CTP 05/21 continue tx. BP was low this morning- 98/55, HR78, will monitor oral intake and renal function. 05/22 continue tx. will check renal function 05/23 05/23 will postpone cmp for next week, not critical at this point and pt asked if they can be done next week as he has had multiple lab work recently. 05/24 continue tx. 05/25 continue tx. asks to speak with urologist about erectile dysfunction- will defer to OP. 05/28 continue tx. 05/29 continue tx. 05/30 continue tx. 05/31 continue tx. 06/01 continue tx. 06/02: stable. asked to address ED, deferred to outpt. no questions or concerns otherwise. 06/03: stable. continue current mgmt. 06/04 labs completed, slightly elevated BUN and Cr from what seemed to be his baseline, although he does have underlying CKD stage3 Shaniko not making much difference in ANC at this dose and may be affecting renal function (although still close to baseline). will d/c lithium currently 150mg po qhs. 06/05 continue tx. 06/09 continue tx. 06/10 continue tx. 06/11 continue tx. Reason for continued inpatient stay Substantial Risk for: inability to function Time Spent With Patient Time: Total time managing care of this patient today ____ minutes.
[2024-06-12 08:35] VITALS: BP 111/67; PULSE 62; RESP 16; TEMP 35.9; O2SAT 100
[2024-06-12] MEDS: Ascorbic Acid 500 MG TABLET PO (08:37)
[2024-06-12] MEDS: Ferrous Sulfate 324 MG TABLET.DR PO (08:38)
[2024-06-12] MEDS: Benztropine Mesylate 0.5 MG TABLET PO ×2 (08:38→20:48)
[2024-06-12] MEDS: HaloperidoL 5 MG TABLET PO ×3 (08:38→20:49)
[2024-06-12] MEDS: Cholecalciferol (Vitamin D3) 25 MCG TABLET 50 MCG PO (08:39)
[2024-06-12] MEDS: carBAMazepine 200 MG TABLET 300 MG PO ×2 (08:39→20:48)
--- NOTE | 2024-06-12 11:31 | P.PNPSI_ITS ---
Subjective Subjective Date of Service: 06/12/24 Reason For Visit: Schizoaffective disorder Interim History: Pt slept through the night. He has been visible on the unit, social with select peers. He is eating well. He denies any concerns. No behavioral concerns. Intermittently goes out and plays the piano. He reports wanting to go home soon. taking medications as prescribed. Review of Systems Review of Systems No overt seizure-like symptoms Yes Unobtainable due to mental status Mental Status Exam Mental Status Exam Narrative: Appearance: fair hygiene, casual clothing, dressing self on his own, in NAD Behavior: calm; isolative Psychomotor: no agitation or retardation Speech: none observed TP: not observed TC: not observed Mood: not assessed Affect: calm, non-labile SI: none expressed HI: none expressed VH/AH: no overt signs Delusions: no overt Insight/judgment:improved, but still impaired at baseline. Memory/cog: alert, oriented to place, month, situation. Patient Appearance: Appropriate Patient Orientation: Person and Place Level of Consciousness: Awake Patient Behavior: Cooperative and Passive Behavior Comments: Verbally aggressive unable to engage in a back and forth conversation yelling about chicken wings Mood Description: Apathetic Affect Description: Blunted Patient Cognition Impaired: No Ability to Follow Directions: Fair Speech Pattern: Clear Memory Description: Remote Impaired Diagnostics Vital Signs (24Hr): Vital Signs - 24 hr 06/11/24 20:00 06/12/24 08:35 Temperature 97.2 F 96.6 F L Pulse Rate 68 62 Respiratory Rate 16 Blood Pressure 120/63 111/67 Pulse Oximetry 99 100 Oxygen Delivery Method Room Air Room Air BMI result Body Mass Index 22.7 Labs 06/04/24 09:33 06/04/24 09:33 Imaging Radiology Impressions: ITS Impressions Chest X-Ray 03/20/24 08:33 IMPRESSION: Extremely limited exam. Only lateral views could be obtained. Suspect basilar airspace opacity, possibly pneumonia. Electronically signed by: Fortino Dumont MD 03/20/2024 10:10 AM [facility] Cervical Spine CT 03/21/24 11:18 IMPRESSION: 1. Allowing for suboptimal positioning, there is no CT evidence of acute cervical spine fracture or injury. 2. Degenerative changes with bulky ventral osteophytes spanning C4-C6, appearance in keeping with DISH. Electronically signed by: Fortino Dumont MD 03/21/2024 12:01 PM EST RP Head CT 03/21/24 11:18 IMPRESSION: 1. No acute intracranial abnormality. No acute fractures seen. 2. Stable chronic findings as discussed. Electronically signed by: Fortino Dumont MD 03/21/2024 11:54 AM EST RP Pelvis CT 03/21/24 11:18 IMPRESSION: 1. No acute bony abnormalities. No fractures. 2. Constipation with a large amount of stool in the rectum and sigmoid colon. 3. Mild thickening of the urinary bladder wall despite underdistention, nonspecific. Differential includes the detrusor hypertrophy, neurogenic bladder, or possibly cystitis. Electronically signed by: Fortino Dumont MD 03/21/2024 12:09 PM EST RP Head CT 03/28/24 09:37 IMPRESSION: No acute fracture, bony calvarium. No acute intracranial hemorrhage. Small vessel occlusive disease. Bifrontal bitemporal lobe atrophy. Electronically signed by: Juan Corrigan MD 03/28/2024 10:19 AM EST RP Head CT 04/25/24 12:22 IMPRESSION: No acute intracranial process seen. Electronically signed by: Ritchie Marte MD 04/25/2024 01:01 PM EST RP Medications Medications Current Medications Acetaminophen (Acetaminophen 325 Mg Tablet) 650 mg PO Q6H PRN PRN Reason: pain (1-10) Al Hydroxide/Mg Hydroxide (Magnesium Hydrox/Alum Hydrox 30 Ml Oral.Susp) 30 ml PO Q6H PRN PRN Reason: Heartburn/Nausea Aripiprazole (Aripiprazole Er 400 Mg Suser.Syr) 400 mg IM Q30D [facility] Last Admin: 05/17/24 10:49 Dose: 400 mg Ascorbic Acid (Ascorbic Acid 500 Mg Tablet) 500 mg PO DAILY [facility] Last Admin: 06/12/24 08:37 Dose: 500 mg Aspirin (Aspirin 81 Mg Tab.Chew) 81 mg PO DAILY [facility] Last Admin: 04/23/24 08:34 Dose: 81 mg Benztropine Mesylate (Benztropine Mesylate 0.5 Mg Tablet) 0.5 mg PO BID [facility] Last Admin: 06/12/24 08:38 Dose: 0.5 mg Carbamazepine (Carbamazepine 200 Mg Tablet) 300 mg PO BID [facility] Last Admin: 06/12/24 08:39 Dose: 300 mg Ferrous Sulfate (Ferrous Sulfate 324 Mg Tablet.Dr) 324 mg PO DAILY [facility] Last Admin: 06/12/24 08:38 Dose: 324 mg Haloperidol (Haloperidol 5 Mg Tablet) 5 mg PO TID [facility] Last Admin: 06/12/24 08:38 Dose: 5 mg Haloperidol Lactate (Haloperidol Lactate Oral Conc 10 Mg/5 Ml Oral.Conc) 5 mg PO Q6H PRN PRN Reason: Psychosis or severe agitation Last Admin: 05/05/24 02:37 Dose: 5 mg Haloperidol Lactate (Haloperidol Lactate 5 Mg/Ml Vial) 5 mg IM TID PRN PRN Reason: Refusal of Court PO Haldol Last Admin: 05/06/24 00:36 Dose: 5 mg Magnesium Hydroxide (Milk Of Magnesia 30 Ml Oral.Susp) 30 ml PO DAILY PRN PRN Reason: Constipation Nicotine Polacrilex (Nicotine Polacrilex 2 Mg Gum) 2 mg BUCCAL Q2H PRN PRN Reason: Nicotine Cravings Trazodone HCl (Trazodone Hcl 50 Mg Tablet) 50 mg PO BEDTIME PRN PRN Reason: Insomnia Last Admin: 05/30/24 21:16 Dose: 50 mg Vitamin D (Cholecalciferol (Vitamin D3) 25 Mcg Tablet) 50 mcg PO DAILY [facility] Last Admin: 06/12/24 08:39 Dose: 50 mcg Allergies Allergies Allergy/AdvReac Type Severity Reaction Status Date / Time lithium Allergy Unknown Verified 01/13/24 18:08 divalproex sodium AdvReac Severe encephalopa Verified 05/08/24 12:34 [From Depakote] thy Assessment & Plan Assessment & Plan (1) Schizoaffective disorder, bipolar type: Status: Acute Code(s): F25.0 - Schizoaffective disorder, bipolar type (2) Diabetes mellitus: Status: Acute Code(s): E11.9 - Type 2 diabetes mellitus without complications Assessment and Plan: A1c on 04/28 5.9% Not on current medications (3) Hypertension: Status: Acute Code(s): I10 - Essential (primary) hypertension Assessment and Plan: not on current medications (4) Pancytopenia: Status: Acute Code(s): D61.818 - Other pancytopenia Assessment and Plan: seems to be improving after dc depakote CBC on 05/09/2024--> shows improvement in platelets 88 to 146, ANC also improved from 800 to 2300. normocytic anemia with Hgb 11, stable H&H. labs completed on 05/16 cbc with lower ANC 1500 (from 05/12 3200- this probably due to lowering lithium dose due to increase in BUN and Cr), Platelets trending up although slightly low 150, from 88 on 03/30/2023. Carbamazepine level 8.1 BUN 18, Cr 1.31 (improved from 05/12 BUN 20, Cr 1.46). Labs completed 06/04/2024- CBC normocytic enemia, slightly elevated but w/in normal range MCV. Plt 153, ANC 1400. CMP elevation BUN 24, Cr 1.56, creatinine clearance 45.8. (5) Chronic kidney disease (CKD): Status: Acute Code(s): N18.9 - Chronic kidney disease, unspecified Assessment and Plan: on low dose of lithium, closely monitoring renal function. Plan 03/23 keep same treatment 68 yo [facility] with chronic psychotic disorder, refusing medication , elevated bp and disorganized and agitated behavior requiring psychiatric hospitalization and treatment not competent to sign cv. 01/14 continue to follow - gave lambs warning today- and he says the cycle touring guide will be a she- still refusing medications and quite psychotic takes alot of redirection to settle him poor adls- 01/15- Refuses meds, refuses hospitalist consult-second day File for Section Seven consideration on 01/17. Provide care as he will allow. 01/16: Depakote 250 mg bid Haldol, Lorazepam, Benadryl prn Section 7 to be filed 01/17 Message left for guardian. 01/17: Section Seven filed. . Court scheduled 01/26/24 Pt continues to refuse medicaitons. He is in need of full assist with ADL's and is incontinent. Pt transferred to [facility] this afternoon. 01/19/2024 Patient pending civil commitment loud agitated would not engage in any conversation with this customs entry writer non informational healing agitated verbally aggressive. Every attempt being made to get a copy of the patient's Servin order unclear why this has been so problematic. Encourage food and fluids 01/19 continue same treatment 01/21/24 Patient labile agitated intrusive close labs ordered in order to per to protect the community patient wandering into patient's rooms intrusive impulsive laying on another person's bed. Often hostile agitated posturing at times we are still pending copy of reported Servin order encourage p.o. compliance 01/22/2024 Patient did require physical hold escort him out of a room that he jumped in other patient's room and on their bed while there were in it. There was no physical harm and the patient did leave the room his markedly impulsive with poor judgment remains on close observation has intermittently taken Haldol liquid pending civil commitment treatment plan there is a question of Servin order 01/22 The patient had been more agitated. We review his Servin order and we are increasing the Abilify up to 15 mg p.o. daily and adding Haldol p.r.n. since it is in his role years order. We needed to give him some p.r.n. at 14:00. 01/23 The patient is grossly psychotic disrobing and sexually disinhibited we are starting Haldol 2 mg p.o. t.i.d. to target psychosis as per court order treatment over objection order. 01/24 The patient remains very agitated and angry disruptive so we are increasing the Haldol from 2 mg to 5 mg p.o. t.i.d. with a backup IM if the patient refused as per court order. 01/25 we have increased the Haldol but still he is very psychotic and restless. Today he refused his blood work. He needed to be physically held twice. 01/26 the patient remains agitated at times but his last IM backup was yesterday. We are going to increase Abilify up to 20 mg daily to target mood lability and psychosis. 01/29/2024: Increase frequency of prn doses from tid to prn q 6mrs. Poor insight and unable to care for self 02/08 pt has not take any of mood stabilizer. continues to have poor sleep, intrusive and combative requiring IM medications, increase haldol 10mg po TID, back up IM. Will add ativan 1mg po TID, also back up IM. Labs show elevated CK 2300, BUN 20, Cr 1.80, unclear baseline Cr as he does have CKD. Discussed with hospitalist Dr. Gama, to give IV fluids and monitor labs tomorrow. LFTs also elevated suspect this is secondary to elevation in CK and should trend down as CK goes down. 02/09 still agitated, creatinine and CPK slightly high as yesterday, he removed his IV line there is no big difference with IV hydration. We are changing his community role years to have more options since it is not working Abilify and Haldol 02/10 3 chemical restraints yesterday. appears more combative, and somewhat more confused. Will decrease amount of benzo and antihistamine given to him as it seems to be backfiring. did discuss with ICU attending, Dr. Whiteside possibility of transferring there but they would like us to try IV depakote and exhaust all resources prior to considering transfer. Pt did take depakote springkle 1000mg with apple sauce with much encourage. 02/11 continue tx. 02/12 continue same treatment 01/14 continue with Abilify and other court order medications, we are Nam[place] and the court order. 02/14 Team report improvement today with pt having greater comfort and less agitation. [id number] the staff reported that the patient had been less violent in the last 24 hours 02/16 continue tx. will check depakote and ammonia on 02/17 in AM. 02/17 continue regime and plan of care 02/26/2024: Continue current regimen as per court order 03/03 continue tx. lactulose for now as we don't have new ammonia level, but will try to chack labs. 03/16- continue medications, held clonidine patch for today due to low BP. repeat labs. 03/17-continue plan of care 03/18- continue tx 03/19 continue same treatment 03/20 waiting for CBC, basic metabolic panel and ammonia level. Today he nearly choked with a grape. We are going to change his diet to chopped 03/21 patient had a fall and he was assessed. No injuries as per CT scan of head and pelvis. Again he refused again his blood work vital signs within normal limits. 03/22 keep same treatment 03/23 keep same treatment 03 24 24 Continue plan of care Depakote Tegretol Haldol carbamazepine 03/25/2024 Repeat swallowing study ordered he is already on ground diet consider lowering Haldol versus Cogentin generally try to avoid older man 03/26 lowered Haldol to 7.5 p.o. b.i.d. 03/27 start Abilify Maintena 400 IM, later on we stopped it since he was over- sedated. 03/28 monitor vital signs and we will order blood work for tomorrow morning. 03/29 keep same treatment. We are deferring Abilify Maintena since the patient is still sedated and looks slightly delirious. He has refused blood work 03/31 continue current tx. less combative but no improvement in mentation. grossly disorganized and non sensical. 04/01: court ordered meds- team reviewing and optimizing same. 04/02 continue tx. 04/03 keep same treatment, so far he had been more compliant with some of the medications in the last 3 days. 04/04 start Abilify Maintena 400 mg IM 04/05 keep Haldol as prescribed 04/06 keep same treatment 04/08/24 continue current plan, regime 04/09/24 continue plan, CAT pending 04/10 continue same treatment 04/11 keep same treatment 04/12 lowering Haldol to 5 mg p.o. b.i.d. since the patient is over-sedated. 04/13 keep same treatment 04/14 agitated today, jumping around, dive off bed, crawling on all 4's, naked; took meds; now sleeping -floridly psychotic and customs entry writer thought best to let pt sleep 04/16 keep same treatment 04/17 Abilify Maintena 400 mg today and scheduled next for 30 days. 04/18 change Haldol to 5 mg p.o. t.i.d. with backup IM if he refuses p.o. 04/19 keep same treatment. 04/20 keep same treatment 04/21: verbally aggressive, restless. continue 1:1 and current Tx plan. 04/22: asleep, not easily rousable. restless and irritable last gwen, slept only 4 hours overnight. continue current mgmt. 04/23 add Cogentin 0.5 p.o. b.i.d. small improvement on his psychosis 04/24 continue with same treatment. 04/25 the patient fell again. Blood pressure had been okay even though that he is noncompliant with clonidine patch. We discussed the case with the medical team and they agreed that we can discontinue since he had been noncompliant of clonidine patch since March 09. Starting on propranolol 5 mg p.o. t.i.d. to target akathisia. 04/26 continue tx. 04/27 continue tx. 04/28 reviewing labs- neutropenia and thrombocytopenia worsening Plt 88, ANC 1000, consult to mohamud/onc as plan to continue depakote given that it has been very difficult to stabilize patient. Also, pt with hx of DM, not on any medications. Will obtain A1c. continues to present disorganized, delirium-like presentation. VS are stable, BP on lower side, no need for additional medication for BP. depakote level 100.1. Ammonia level wnl. Will decrease dose of depakote given pancytopenia. 04/29 will stop depakote (one as it may be contributing to pancytopenia, second because it has not shown significant improvement in mentation), continue carbamazepine, pt seen by oncology- appreciate recommendations- 04/30 continue tx. continue to monitor ANC, Plts. oncology/hem following. 05/01 speech and thought process more organized- which is improvement. sexualized remarks, unaware of unsteady gait and weakness. will repeat CBC- continue monitor pancytopenia. 05/02/24 On lithium monitor pancytopenia wbc 3.0 less confused 05/03/24 Increase lithium 300 bid monitor response watch for confusion 05/04 continue current tx, willc heck lithium level, renal function, TSH and repeat CBC on 06/10 at 7am. may need to increase haldol 05/05/24 Continue lithium and Tegretol encourage fluids check lithium TSH electrolytes continue to monitor CBC 05/06/2024 Patient seen chart reviewed case reviewed with nursing staff. Patient was somewhat more dysphoric today tried to engage in conversation had a difficult time. He slept about 4 hours did get Haldol the other day was offered p.o. Ativan p.r.n. encourage fluids with lithium avoid nonsteroidals no gross confusion or tremor 05/07 continue tx. pending labs for lithium level, TSH, cbc on 05/10. 05/08 continue tx. 05/09 pt appeared to have seizure, was given ativan 2mg IM, CMP does show elevation in BUN 23, and elevation on Cr 1.50, mild hyperkalemia 5.2. CBC shows improvement in platelets 88 to 146, ANC also improved from 800 to 2300. normocytic anemia with Hg 11, stable H&H. will decreased lithium 150mg po BID. Increase carbamazepine to 300mg po BID. Awaiting recommendation from neurology. 05/10 continue tx. monitor CMP- renal function. seen by neurology. 05/11 repeat cmp tomorrow, lowered lithium to 150mg po qhs. continue monitoring renal function. 05/12 Patient doing well, polite, organized in speech and behavior. Discussed his lab work and medication regimen which he understood. Electrical Transmission Engineer inquired about patient's awareness of the past months which he has little memory of but says I was out of my mind... And is happy to be organized. Says he wishes there was a piano on the unit; asks customs entry writer about his career inappropriate, organized way. -switch to Q 15 minute checks Reviewed labs and BUN/creatinine improved; alk-phos only mildly elevated Continue with current treatment plan 05/14/24- continue monitor renal function, will also check carbamazepine level, cbc, and cmp on 05/16/2024. 05/15 continue tx. labs scheduled for 05/16 05/16 labs completed on 05/16 cbc with lower ANC 1500 (from 05/12 3200- this probably due to lowering lithium dose due to increase in BUN and Cr), Platelets trending up although slightly low 150, from 88 on 03/30/2023. Carbamazepine level 8.1 BUN 18, Cr 1.31 (improved from 05/12 BUN 20, Cr 1.46). 05/17 continue tx. 05/18 continue tx. 05/19- much improved CTP! 05/20- CTP 05/21 continue tx. BP was low this morning- 98/55, HR78, will monitor oral intake and renal function. 05/22 continue tx. will check renal function 05/23 05/23 will postpone cmp for next week, not critical at this point and pt asked if they can be done next week as he has had multiple lab work recently. 05/24 continue tx. 05/25 continue tx. asks to speak with urologist about erectile dysfunction- will defer to OP. 05/28 continue tx. 05/29 continue tx. 05/30 continue tx. 05/31 continue tx. 06/01 continue tx. 06/02: stable. asked to address ED, deferred to outpt. no questions or concerns otherwise. 06/03: stable. continue current mgmt. 06/04 labs completed, slightly elevated BUN and Cr from what seemed to be his baseline, although he does have underlying CKD stage3 [place] not making much difference in ANC at this dose and may be affecting renal function (although still close to baseline). will d/c lithium currently 150mg po qhs. 06/05 continue tx. 06/09 continue tx. 06/10 continue tx. 06/11 continue tx. Reason for continued inpatient stay Substantial Risk for: inability to function Time Spent With Patient Time: Total time managing care of this patient today ____ minutes.
[2024-06-12 20:00] VITALS: BP 124/60; PULSE 78; RESP 18; TEMP 36.2; O2SAT 98
[2024-06-13 08:00] VITALS: BP 111/57; PULSE 65; RESP 18; TEMP 36.6; O2SAT 99
[2024-06-13] MEDS: Benztropine Mesylate 0.5 MG TABLET PO ×2 (08:01→20:48)
[2024-06-13] MEDS: Cholecalciferol (Vitamin D3) 25 MCG TABLET 50 MCG PO (08:01)
[2024-06-13] MEDS: carBAMazepine 200 MG TABLET 300 MG PO ×2 (08:01→20:49)
[2024-06-13] MEDS: Ascorbic Acid 500 MG TABLET PO (08:01)
[2024-06-13] MEDS: HaloperidoL 5 MG TABLET PO ×3 (08:01→20:50)
[2024-06-13] MEDS: Ferrous Sulfate 324 MG TABLET.DR PO (08:02)
[2024-06-13 20:00] VITALS: BP 144/73; PULSE 60; RESP 18; TEMP 36.4; O2SAT 100
--- NOTE | 2024-06-13 21:12 | HO.PSYCHPN ---
Subjective Subjective Date of Service: 06/13/24 Reason For Visit: Schizoaffective disorder Subjective Notes: Section 7 Interim History: Pt slept through the night. Pt presents as pleasant, cooperative. He reports doing well but wants to go soon, pending finding placement. No SI/HI. No overt delusions or psychosis. He is taking medications as prescribed. No behavioral concerns. social with select peers, smiling and playing piano in evenings. Review of Systems Review of Systems No overt seizure-like symptoms Yes Unobtainable due to mental status Mental Status Exam Mental Status Exam Narrative: Appearance: fair hygiene, casual clothing, dressing self on his own, in NAD Behavior: calm; isolative Psychomotor: no agitation or retardation Speech: none observed TP: not observed TC: not observed Mood: not assessed Affect: calm, non-labile SI: none expressed HI: none expressed VH/AH: no overt signs Delusions: no overt Insight/judgment:improved, but still impaired at baseline. Memory/cog: alert, oriented to place, month, situation. Diagnostics Vital Signs (24Hr): Vital Signs - 24 hr 06/13/24 08:00 06/13/24 20:00 Temperature 97.9 F 97.5 F Pulse Rate 65 60 Respiratory Rate 18 18 Blood Pressure 111/57 L 144/73 H Pulse Oximetry 99 100 Oxygen Delivery Method Room Air Room Air BMI result Body Mass Index 22.7 Labs 06/04/24 09:33 06/04/24 09:33 Imaging Radiology Impressions: ITS Impressions Chest X-Ray 03/20/24 08:33 IMPRESSION: Extremely limited exam. Only lateral views could be obtained. Suspect basilar airspace opacity, possibly pneumonia. Electronically signed by: Fortino Dumont MD 03/20/2024 10:10 AM EST RP Cervical Spine CT 03/21/24 11:18 IMPRESSION: 1. Allowing for suboptimal positioning, there is no CT evidence of acute cervical spine fracture or injury. 2. Degenerative changes with bulky ventral osteophytes spanning C4-C6, appearance in keeping with DISH. Electronically signed by: Fortino Dumont MD 03/21/2024 12:01 PM [place] RP Head CT 03/21/24 11:18 IMPRESSION: 1. No acute intracranial abnormality. No acute fractures seen. 2. Stable chronic findings as discussed. Electronically signed by: Fortino Dumont MD 03/21/2024 11:54 AM EST RP Pelvis CT 03/21/24 11:18 IMPRESSION: 1. No acute bony abnormalities. No fractures. 2. Constipation with a large amount of stool in the rectum and sigmoid colon. 3. Mild thickening of the urinary bladder wall despite underdistention, nonspecific. Differential includes the detrusor hypertrophy, neurogenic bladder, or possibly cystitis. Electronically signed by: Fortino Dumont MD 03/21/2024 12:09 PM EST RP Head CT 03/28/24 09:37 IMPRESSION: No acute fracture, bony calvarium. No acute intracranial hemorrhage. Small vessel occlusive disease. Bifrontal bitemporal lobe atrophy. Electronically signed by: Juan Corrigan MD 03/28/2024 10:19 AM EST RP Head CT 04/25/24 12:22 IMPRESSION: No acute intracranial process seen. Electronically signed by: Ritchie Marte MD 04/25/2024 01:01 PM EST RP Medications Medications Current Medications Acetaminophen (Acetaminophen 325 Mg Tablet) 650 mg PO Q6H PRN PRN Reason: pain (1-10) Al Hydroxide/Mg Hydroxide (Magnesium Hydrox/Alum Hydrox 30 Ml Oral.Susp) 30 ml PO Q6H PRN PRN Reason: Heartburn/Nausea Aripiprazole (Aripiprazole Er 400 Mg Suser.Syr) 400 mg IM Q30D [facility] Last Admin: 05/17/24 10:49 Dose: 400 mg Ascorbic Acid (Ascorbic Acid 500 Mg Tablet) 500 mg PO DAILY [facility] Last Admin: 06/13/24 08:01 Dose: 500 mg Aspirin (Aspirin 81 Mg Tab.Chew) 81 mg PO DAILY [facility] Last Admin: 04/23/24 08:34 Dose: 81 mg Benztropine Mesylate (Benztropine Mesylate 0.5 Mg Tablet) 0.5 mg PO BID [facility] Last Admin: 06/13/24 20:48 Dose: 0.5 mg Carbamazepine (Carbamazepine 200 Mg Tablet) 300 mg PO BID [facility] Last Admin: 06/13/24 20:49 Dose: 300 mg Ferrous Sulfate (Ferrous Sulfate 324 Mg Tablet.Dr) 324 mg PO DAILY [facility] Last Admin: 06/13/24 08:02 Dose: 324 mg Haloperidol (Haloperidol 5 Mg Tablet) 5 mg PO TID [facility] Last Admin: 06/13/24 20:50 Dose: 5 mg Haloperidol Lactate (Haloperidol Lactate Oral Conc 10 Mg/5 Ml Oral.Conc) 5 mg PO Q6H PRN PRN Reason: Psychosis or severe agitation Last Admin: 05/05/24 02:37 Dose: 5 mg Haloperidol Lactate (Haloperidol Lactate 5 Mg/Ml Vial) 5 mg IM TID PRN PRN Reason: Refusal of Court PO Haldol Last Admin: 05/06/24 00:36 Dose: 5 mg Magnesium Hydroxide (Milk Of Magnesia 30 Ml Oral.Susp) 30 ml PO DAILY PRN PRN Reason: Constipation Nicotine Polacrilex (Nicotine Polacrilex 2 Mg Gum) 2 mg BUCCAL Q2H PRN PRN Reason: Nicotine Cravings Trazodone HCl (Trazodone Hcl 50 Mg Tablet) 50 mg PO BEDTIME PRN PRN Reason: Insomnia Last Admin: 05/30/24 21:16 Dose: 50 mg Vitamin D (Cholecalciferol (Vitamin D3) 25 Mcg Tablet) 50 mcg PO DAILY [facility] Last Admin: 06/13/24 08:01 Dose: 50 mcg Allergies Allergies Allergy/AdvReac Type Severity Reaction Status Date / Time lithium Allergy Unknown Verified 01/13/24 18:08 divalproex sodium AdvReac Severe encephalopa Verified 05/08/24 12:34 [From Depakote] thy Assessment & Plan Assessment & Plan (1) Schizoaffective disorder, bipolar type: Status: Acute Code(s): F25.0 - Schizoaffective disorder, bipolar type (2) Diabetes mellitus: Status: Acute Code(s): E11.9 - Type 2 diabetes mellitus without complications Assessment and Plan: A1c on 04/28 5.9% Not on current medications (3) Hypertension: Status: Acute Code(s): I10 - Essential (primary) hypertension Assessment and Plan: not on current medications (4) Pancytopenia: Status: Acute Code(s): D61.818 - Other pancytopenia Assessment and Plan: seems to be improving after dc depakote CBC on 05/09/2024--> shows improvement in platelets 88 to 146, ANC also improved from 800 to 2300. normocytic anemia with Hgb 11, stable H&H. labs completed on 05/16 cbc with lower ANC 1500 (from 05/12 3200- this probably due to lowering lithium dose due to increase in BUN and Cr), Platelets trending up although slightly low 150, from 88 on 03/30/2023. Carbamazepine level 8.1 BUN 18, Cr 1.31 (improved from 05/12 BUN 20, Cr 1.46). Labs completed 06/04/2024- CBC normocytic enemia, slightly elevated but w/in normal range MCV. Plt 153, ANC 1400. CMP elevation BUN 24, Cr 1.56, creatinine clearance 45.8. (5) Chronic kidney disease (CKD): Status: Acute Code(s): N18.9 - Chronic kidney disease, unspecified Assessment and Plan: on low dose of lithium, closely monitoring renal function. Plan 03/23 keep same treatment 68 yo from a [facility] with chronic psychotic disorder, refusing medication , elevated bp and disorganized and agitated behavior requiring psychiatric hospitalization and treatment not competent to sign cv. 01/14 continue to follow - gave lambs warning today- and he says the dressage judge will be a she- still refusing medications and quite psychotic takes alot of redirection to settle him poor adls- 01/15- Refuses meds, refuses hospitalist consult-second day File for Section Seven consideration on 01/17. Provide care as he will allow. 01/16: Depakote 250 mg bid Haldol, Lorazepam, Benadryl prn Section 7 to be filed 01/17 Message left for guardian. 01/17: Section Seven filed. . Court scheduled 01/26/24 Pt continues to refuse medicaitons. He is in need of full assist with ADL's and is incontinent. Pt transferred to [facility] this afternoon. 01/19/2024 Patient pending civil commitment loud agitated would not engage in any conversation with this fiction and nonfiction prose writer non informational healing agitated verbally aggressive. Every attempt being made to get a copy of the patient's Servin order unclear why this has been so problematic. Encourage food and fluids 01/19 continue same treatment 01/21/24 Patient labile agitated intrusive close labs ordered in order to per to protect the community patient wandering into patient's rooms intrusive impulsive laying on another person's bed. Often hostile agitated posturing at times we are still pending copy of reported Servin order encourage p.o. compliance 01/22/2024 Patient did require physical hold escort him out of a room that he jumped in other patient's room and on their bed while there were in it. There was no physical harm and the patient did leave the room his markedly impulsive with poor judgment remains on close observation has intermittently taken Haldol liquid pending civil commitment treatment plan there is a question of Servin order 01/22 The patient had been more agitated. We review his Servin order and we are increasing the Abilify up to 15 mg p.o. daily and adding Haldol p.r.n. since it is in his role years order. We needed to give him some p.r.n. at 14:00. 01/23 The patient is grossly psychotic disrobing and sexually disinhibited we are starting Haldol 2 mg p.o. t.i.d. to target psychosis as per court order treatment over objection order. 01/24 The patient remains very agitated and angry disruptive so we are increasing the Haldol from 2 mg to 5 mg p.o. t.i.d. with a backup IM if the patient refused as per court order. 01/25 we have increased the Haldol but still he is very psychotic and restless. Today he refused his blood work. He needed to be physically held twice. 01/26 the patient remains agitated at times but his last IM backup was yesterday. We are going to increase Abilify up to 20 mg daily to target mood lability and psychosis. 01/29/2024: Increase frequency of prn doses from tid to prn q 6mrs. Poor insight and unable to care for self 02/08 pt has not take any of mood stabilizer. continues to have poor sleep, intrusive and combative requiring IM medications, increase haldol 10mg po TID, back up IM. Will add ativan 1mg po TID, also back up IM. Labs show elevated CK 2300, BUN 20, Cr 1.80, unclear baseline Cr as he does have CKD. Discussed with hospitalist Dr. Gama, to give IV fluids and monitor labs tomorrow. LFTs also elevated suspect this is secondary to elevation in CK and should trend down as CK goes down. 02/09 still agitated, creatinine and CPK slightly high as yesterday, he removed his IV line there is no big difference with IV hydration. We are changing his community role years to have more options since it is not working Abilify and Haldol 02/10 3 chemical restraints yesterday. appears more combative, and somewhat more confused. Will decrease amount of benzo and antihistamine given to him as it seems to be backfiring. did discuss with ICU attending, Dr. Whiteside possibility of transferring there but they would like us to try IV depakote and exhaust all resources prior to considering transfer. Pt did take depakote springkle 1000mg with apple sauce with much encourage. 02/11 continue tx. 02/12 continue same treatment 01/14 continue with Abilify and other court order medications, we are Nam[place] and the court order. 02/14 Team report improvement today with pt having greater comfort and less agitation. [id number] the staff reported that the patient had been less violent in the last 24 hours 02/16 continue tx. will check depakote and ammonia on 02/17 in AM. 02/17 continue regime and plan of care 02/26/2024: Continue current regimen as per court order 03/03 continue tx. lactulose for now as we don't have new ammonia level, but will try to chack labs. 03/16- continue medications, held clonidine patch for today due to low BP. repeat labs. 03/17-continue plan of care 03/18- continue tx 03/19 continue same treatment 03/20 waiting for CBC, basic metabolic panel and ammonia level. Today he nearly choked with a grape. We are going to change his diet to chopped 03/21 patient had a fall and he was assessed. No injuries as per CT scan of head and pelvis. Again he refused again his blood work vital signs within normal limits. 03/22 keep same treatment 03/23 keep same treatment 03 24 24 Continue plan of care Depakote Tegretol Haldol carbamazepine 03/25/2024 Repeat swallowing study ordered he is already on ground diet consider lowering Haldol versus Cogentin generally try to avoid older man 03/26 lowered Haldol to 7.5 p.o. b.i.d. 03/27 start Abilify Maintena 400 IM, later on we stopped it since he was over-sedated. 03/28 monitor vital signs and we will order blood work for tomorrow morning. 03/29 keep same treatment. We are deferring Abilify Maintena since the patient is still sedated and looks slightly delirious. He has refused blood work 03/31 continue current tx. less combative but no improvement in mentation. grossly disorganized and non sensical. 04/01: court ordered meds- team reviewing and optimizing same. 04/02 continue tx. 04/03 keep same treatment, so far he had been more compliant with some of the medications in the last 3 days. 04/04 start Abilify Maintena 400 mg IM 04/05 keep Haldol as prescribed 04/06 keep same treatment 04/08/24 continue current plan, regime 04/09/24 continue plan, CAT pending 04/10 continue same treatment 04/11 keep same treatment 04/12 lowering Haldol to 5 mg p.o. b.i.d. since the patient is over-sedated. 04/13 keep same treatment 04/14 agitated today, jumping around, dive off bed, crawling on all 4's, naked; took meds; now sleeping -floridly psychotic and fiction and nonfiction prose writer thought best to let pt sleep 04/16 keep same treatment 04/17 Abilify Maintena 400 mg today and scheduled next for 30 days. 04/18 change Haldol to 5 mg p.o. t.i.d. with backup IM if he refuses p.o. 04/19 keep same treatment. 04/20 keep same treatment 04/21: verbally aggressive, restless. continue 1:1 and current Tx plan. 04/22: asleep, not easily rousable. restless and irritable last gwen, slept only 4 hours overnight. continue current mgmt. 04/23 add Cogentin 0.5 p.o. b.i.d. small improvement on his psychosis 04/24 continue with same treatment. 04/25 the patient fell again. Blood pressure had been okay even though that he is noncompliant with clonidine patch. We discussed the case with the medical team and they agreed that we can discontinue since he had been noncompliant of clonidine patch since March 09. Starting on propranolol 5 mg p.o. t.i.d. to target akathisia. 04/26 continue tx. 04/27 continue tx. 04/28 reviewing labs- neutropenia and thrombocytopenia worsening Plt 88, ANC 1000, consult to mohamud/onc as plan to continue depakote given that it has been very difficult to stabilize patient. Also, pt with hx of DM, not on any medications. Will obtain A1c. continues to present disorganized, delirium-like presentation. VS are stable, BP on lower side, no need for additional medication for BP. depakote level 100.1. Ammonia level wnl. Will decrease dose of depakote given pancytopenia. 04/29 will stop depakote (one as it may be contributing to pancytopenia, second because it has not shown significant improvement in mentation), continue carbamazepine, pt seen by oncology- appreciate recommendations- 04/30 continue tx. continue to monitor ANC, Plts. oncology/hem following. 05/01 speech and thought process more organized- which is improvement. sexualized remarks, unaware of unsteady gait and weakness. will repeat CBC- continue monitor pancytopenia. 05/02/24 On lithium monitor pancytopenia wbc 3.0 less confused 05/03/24 Increase lithium 300 bid monitor response watch for confusion 05/04 continue current tx, willc heck lithium level, renal function, TSH and repeat CBC on 06/10 at 7am. may need to increase haldol 05/05/24 Continue lithium and Tegretol encourage fluids check lithium TSH electrolytes continue to monitor CBC 05/06/2024 Patient seen chart reviewed case reviewed with nursing staff. Patient was somewhat more dysphoric today tried to engage in conversation had a difficult time. He slept about 4 hours did get Haldol the other day was offered p.o. Ativan p.r.n. encourage fluids with lithium avoid nonsteroidals no gross confusion or tremor 05/07 continue tx. pending labs for lithium level, TSH, cbc on 05/10. 05/08 continue tx. 05/09 pt appeared to have seizure, was given ativan 2mg IM, CMP does show elevation in BUN 23, and elevation on Cr 1.50, mild hyperkalemia 5.2. CBC shows improvement in platelets 88 to 146, ANC also improved from 800 to 2300. normocytic anemia with Hg 11, stable H&H. will decreased lithium 150mg po BID. Increase carbamazepine to 300mg po BID. Awaiting recommendation from neurology. 05/10 continue tx. monitor CMP- renal function. seen by neurology. 05/11 repeat cmp tomorrow, lowered lithium to 150mg po qhs. continue monitoring renal function. 05/12 Patient doing well, polite, organized in speech and behavior. Discussed his lab work and medication regimen which he understood. Wood Floor Layer inquired about patient's awareness of the past months which he has little memory of but says I was out of my mind... And is happy to be organized. Says he wishes there was a piano on the unit; asks fiction and nonfiction prose writer about his career inappropriate, organized way. -switch to Q 15 minute checks Reviewed labs and BUN/creatinine improved; alk-phos only mildly elevated Continue with current treatment plan 05/14/24- continue monitor renal function, will also check carbamazepine level, cbc, and cmp on 05/16/2024. 05/15 continue tx. labs scheduled for 05/16 05/16 labs completed on 05/16 cbc with lower ANC 1500 (from 05/12 3200- this probably due to lowering lithium dose due to increase in BUN and Cr), Platelets trending up although slightly low 150, from 88 on 03/30/2023. Carbamazepine level 8.1 BUN 18, Cr 1.31 (improved from 05/12 BUN 20, Cr 1.46). 05/17 continue tx. 05/18 continue tx. 05/19- much improved CTP! 05/20- CTP 05/21 continue tx. BP was low this morning- 98/55, HR78, will monitor oral intake and renal function. 05/22 continue tx. will check renal function 05/23 05/23 will postpone cmp for next week, not critical at this point and pt asked if they can be done next week as he has had multiple lab work recently. 05/24 continue tx. 05/25 continue tx. asks to speak with urologist about erectile dysfunction- will defer to OP. 05/28 continue tx. 05/29 continue tx. 05/30 continue tx. 05/31 continue tx. 06/01 continue tx. 06/02: stable. asked to address ED, deferred to outpt. no questions or concerns otherwise. 06/03: stable. continue current mgmt. 06/04 labs completed, slightly elevated BUN and Cr from what seemed to be his baseline, although he does have underlying CKD stage3 [facility] not making much difference in ANC at this dose and may be affecting renal function (although still close to baseline). will d/c lithium currently 150mg po qhs. 06/05 continue tx. 06/09 continue tx. 06/10 continue tx. 06/11 continue tx. 06/12 continue tx. Reason for continued inpatient stay Substantial Risk for: inability to function Time Spent With Patient Time: Total time managing care of this patient today ____ minutes.
[2024-06-14 08:00] VITALS: BP 142/72; PULSE 68; RESP 18; TEMP 36.2; O2SAT 100
[2024-06-14] MEDS: Ferrous Sulfate 324 MG TABLET.DR PO (08:16)
[2024-06-14] MEDS: Cholecalciferol (Vitamin D3) 25 MCG TABLET 50 MCG PO (08:16)
[2024-06-14] MEDS: Benztropine Mesylate 0.5 MG TABLET PO ×2 (08:16→19:56)
[2024-06-14] MEDS: carBAMazepine 200 MG TABLET 300 MG PO ×2 (08:16→19:56)
[2024-06-14] MEDS: Ascorbic Acid 500 MG TABLET PO (08:16)
[2024-06-14] MEDS: HaloperidoL 5 MG TABLET PO ×3 (08:17→19:55)
--- NOTE | 2024-06-14 08:29 | HO.PSYCHPN ---
Subjective Subjective Date of Service: 06/13/24 Reason For Visit: Schizoaffective disorder Subjective Notes: Section 7 Interim History: Pt slept through the night. Pt presents as pleasant, cooperative. He reports doing well but wants to go soon, pending finding placement. No SI/HI. No overt delusions or psychosis. He is taking medications as prescribed. No behavioral concerns. Social with select peers, appropriate in interactions. Medication Compliance: Yes Review of Systems Review of Systems No overt seizure-like symptoms Yes Unobtainable due to mental status Mental Status Exam Mental Status Exam Narrative: Appearance: fair hygiene, casual clothing, dressing self on his own, in NAD Behavior: calm; isolative Psychomotor: no agitation or retardation Speech: none observed TP: not observed TC: not observed Mood: not assessed Affect: calm, non-labile SI: none expressed HI: none expressed VH/AH: no overt signs Delusions: no overt Insight/judgment:improved, but still impaired at baseline. Memory/cog: alert, oriented to place, month, situation. Patient Appearance: Appropriate Patient Orientation: Person and Place Level of Consciousness: Awake Patient Behavior: Cooperative and Passive Behavior Comments: Verbally aggressive unable to engage in a back and forth conversation yelling about chicken wings Mood Description: Apathetic Affect Description: Blunted Patient Cognition Impaired: No Ability to Follow Directions: Fair Speech Pattern: Clear Memory Description: Remote Impaired Diagnostics Vital Signs (24Hr): Vital Signs - 24 hr 06/13/24 20:00 Temperature 97.5 F Pulse Rate 60 Respiratory Rate 18 Blood Pressure 144/73 H Pulse Oximetry 100 Oxygen Delivery Method Room Air BMI result Body Mass Index 22.7 Labs 06/04/24 09:33 06/04/24 09:33 Imaging Radiology Impressions: ITS Impressions Chest X-Ray 03/20/24 08:33 IMPRESSION: Extremely limited exam. Only lateral views could be obtained. Suspect basilar airspace opacity, possibly pneumonia. Electronically signed by: Fortino Dumont MD 03/20/2024 10:10 AM [facility] [place] 03/21/24 11:18 IMPRESSION: 1. Allowing for suboptimal positioning, there is no CT evidence of acute cervical spine fracture or injury. 2. Degenerative changes with bulky ventral osteophytes spanning C4-C6, appearance in keeping with DISH. Electronically signed by: Fortino Dumont MD 03/21/2024 12:01 PM EST RP Head CT 03/21/24 11:18 IMPRESSION: 1. No acute intracranial abnormality. No acute fractures seen. 2. Stable chronic findings as discussed. Electronically signed by: Fortino Dumont MD 03/21/2024 11:54 AM EST RP Pelvis CT 03/21/24 11:18 IMPRESSION: 1. No acute bony abnormalities. No fractures. 2. Constipation with a large amount of stool in the rectum and sigmoid colon. 3. Mild thickening of the urinary bladder wall despite underdistention, nonspecific. Differential includes the detrusor hypertrophy, neurogenic bladder, or possibly cystitis. Electronically signed by: Fortino Dumont MD 03/21/2024 12:09 PM EST RP Head CT 03/28/24 09:37 IMPRESSION: No acute fracture, bony calvarium. No acute intracranial hemorrhage. Small vessel occlusive disease. Bifrontal bitemporal lobe atrophy. Electronically signed by: Juan Corrigan MD 03/28/2024 10:19 AM EST RP Head CT 04/25/24 12:22 IMPRESSION: No acute intracranial process seen. Electronically signed by: Ritchie Marte MD 04/25/2024 01:01 PM EST RP Medications Medications Current Medications Acetaminophen (Acetaminophen 325 Mg Tablet) 650 mg PO Q6H PRN PRN Reason: pain (1-10) Al Hydroxide/Mg Hydroxide (Magnesium Hydrox/Alum Hydrox 30 Ml Oral.Susp) 30 ml PO Q6H PRN PRN Reason: Heartburn/Nausea Aripiprazole (Aripiprazole Er 400 Mg Suser.Syr) 400 mg IM Q30D [facility] Last Admin: 05/17/24 10:49 Dose: 400 mg Ascorbic Acid (Ascorbic Acid 500 Mg Tablet) 500 mg PO DAILY [facility] Last Admin: 06/14/24 08:16 Dose: 500 mg Aspirin (Aspirin 81 Mg Tab.Chew) 81 mg PO DAILY [facility] Last Admin: 04/23/24 08:34 Dose: 81 mg Benztropine Mesylate (Benztropine Mesylate 0.5 Mg Tablet) 0.5 mg PO BID [facility] Last Admin: 06/14/24 08:16 Dose: 0.5 mg Carbamazepine (Carbamazepine 200 Mg Tablet) 300 mg PO BID [facility] Last Admin: 06/14/24 08:16 Dose: 300 mg Ferrous Sulfate (Ferrous Sulfate 324 Mg Tablet.Dr) 324 mg PO DAILY [facility] Last Admin: 06/14/24 08:16 Dose: 324 mg Haloperidol (Haloperidol 5 Mg Tablet) 5 mg PO TID [facility] Last Admin: 06/14/24 08:17 Dose: 5 mg Haloperidol Lactate (Haloperidol Lactate Oral Conc 10 Mg/5 Ml Oral.Conc) 5 mg PO Q6H PRN PRN Reason: Psychosis or severe agitation Last Admin: 05/05/24 02:37 Dose: 5 mg Haloperidol Lactate (Haloperidol Lactate 5 Mg/Ml Vial) 5 mg IM TID PRN PRN Reason: Refusal of Court PO Haldol Last Admin: 05/06/24 00:36 Dose: 5 mg Magnesium Hydroxide (Milk Of Magnesia 30 Ml Oral.Susp) 30 ml PO DAILY PRN PRN Reason: Constipation Nicotine Polacrilex (Nicotine Polacrilex 2 Mg Gum) 2 mg BUCCAL Q2H PRN PRN Reason: Nicotine Cravings Trazodone HCl (Trazodone Hcl 50 Mg Tablet) 50 mg PO BEDTIME PRN PRN Reason: Insomnia Last Admin: 05/30/24 21:16 Dose: 50 mg Vitamin D (Cholecalciferol (Vitamin D3) 25 Mcg Tablet) 50 mcg PO DAILY [facility] Last Admin: 06/14/24 08:16 Dose: 50 mcg Allergies Allergies Allergy/AdvReac Type Severity Reaction Status Date / Time lithium Allergy Unknown Verified 01/13/24 18:08 divalproex sodium AdvReac Severe encephalopa Verified 05/08/24 12:34 [From [facility]] thy Assessment & Plan Assessment & Plan (1) Schizoaffective disorder, bipolar type: Status: Acute Code(s): F25.0 - Schizoaffective disorder, bipolar type (2) Diabetes mellitus: Status: Acute Code(s): E11.9 - Type 2 diabetes mellitus without complications Assessment and Plan: A1c on 04/28 5.9% Not on current medications (3) Hypertension: Status: Acute Code(s): I10 - Essential (primary) hypertension Assessment and Plan: not on current medications (4) Pancytopenia: Status: Acute Code(s): D61.818 - Other pancytopenia Assessment and Plan: seems to be improving after dc depakote CBC on 05/09/2024--> shows improvement in platelets 88 to 146, ANC also improved from 800 to 2300. normocytic anemia with Hgb 11, stable H&H. labs completed on 05/16 cbc with lower ANC 1500 (from 05/12 3200- this probably due to lowering lithium dose due to increase in BUN and Cr), Platelets trending up although slightly low 150, from 88 on 03/30/2023. Carbamazepine level 8.1 BUN 18, Cr 1.31 (improved from 05/12 BUN 20, Cr 1.46). Labs completed 06/04/2024- CBC normocytic enemia, slightly elevated but w/in normal range MCV. Plt 153, ANC 1400. CMP elevation BUN 24, Cr 1.56, creatinine clearance 45.8. (5) Chronic kidney disease (CKD): Status: Acute Code(s): N18.9 - Chronic kidney disease, unspecified Assessment and Plan: on low dose of lithium, closely monitoring renal function. Plan 03/23 keep same treatment 68 yo from a retirement with chronic psychotic disorder, refusing medication , elevated bp and disorganized and agitated behavior requiring psychiatric hospitalization and treatment not competent to sign cv. 01/14 continue to follow - gave lambs warning today- and he says the director of surgery will be a she- still refusing medications and quite psychotic takes alot of redirection to settle him poor adls- 01/15- Refuses meds, refuses hospitalist consult-second day File for Section Seven consideration on 01/17. Provide care as he will allow. 01/16: Depakote 250 mg bid Haldol, Lorazepam, Benadryl prn Section 7 to be filed 01/17 Message left for guardian. 01/17: Section Seven filed. . Court scheduled 01/26/24 Pt continues to refuse medicaitons. He is in need of full assist with ADL's and is incontinent. Pt transferred to [facility] this afternoon. 01/19/2024 Patient pending civil commitment loud agitated would not engage in any conversation with this insurance underwriter sales non informational healing agitated verbally aggressive. Every attempt being made to get a copy of the patient's Servin order unclear why this has been so problematic. Encourage food and fluids 01/19 continue same treatment 01/21/24 Patient labile agitated intrusive close labs ordered in order to per to protect the community patient wandering into patient's rooms intrusive impulsive laying on another person's bed. Often hostile agitated posturing at times we are still pending copy of reported Servin order encourage p.o. compliance 01/22/2024 Patient did require physical hold escort him out of a room that he jumped in other patient's room and on their bed while there were in it. There was no physical harm and the patient did leave the room his markedly impulsive with poor judgment remains on close observation has intermittently taken Haldol liquid pending civil commitment treatment plan there is a question of Servin order 01/22 The patient had been more agitated. We review his Servin order and we are increasing the Abilify up to 15 mg p.o. daily and adding Haldol p.r.n. since it is in his role years order. We needed to give him some p.r.n. at 14:00. 01/23 The patient is grossly psychotic disrobing and sexually disinhibited we are starting Haldol 2 mg p.o. t.i.d. to target psychosis as per court order treatment over objection order. 01/24 The patient remains very agitated and angry disruptive so we are increasing the Haldol from 2 mg to 5 mg p.o. t.i.d. with a backup IM if the patient refused as per court order. 01/25 we have increased the Haldol but still he is very psychotic and restless. Today he refused his blood work. He needed to be physically held twice. 01/26 the patient remains agitated at times but his last IM backup was yesterday. We are going to increase Abilify up to 20 mg daily to target mood lability and psychosis. 01/29/2024: Increase frequency of prn doses from tid to prn q 6mrs. Poor insight and unable to care for self 02/08 pt has not take any of mood stabilizer. continues to have poor sleep, intrusive and combative requiring IM medications, increase haldol 10mg po TID, back up IM. Will add ativan 1mg po TID, also back up IM. Labs show elevated CK 2300, BUN 20, Cr 1.80, unclear baseline Cr as he does have CKD. Discussed with hospitalist Dr. Gama, to give IV fluids and monitor labs tomorrow. LFTs also elevated suspect this is secondary to elevation in CK and should trend down as CK goes down. 02/09 still agitated, creatinine and CPK slightly high as yesterday, he removed his IV line there is no big difference with IV hydration. We are changing his community role years to have more options since it is not working Abilify and Haldol 02/10 3 chemical restraints yesterday. appears more combative, and somewhat more confused. Will decrease amount of benzo and antihistamine given to him as it seems to be backfiring. did discuss with ICU attending, Dr. Whiteside possibility of transferring there but they would like us to try IV depakote and exhaust all resources prior to considering transfer. Pt did take depakote springkle 1000mg with apple sauce with much encourage. 02/11 continue tx. 02/12 continue same treatment 01/14 continue with Abilify and other court order medications, we are Nam[place] and the court order. 02/14 Team report improvement today with pt having greater comfort and less agitation. [id number] the staff reported that the patient had been less violent in the last 24 hours 02/16 continue tx. will check depakote and ammonia on 02/17 in AM. 02/17 continue regime and plan of care 02/26/2024: Continue current regimen as per court order 03/03 continue tx. lactulose for now as we don't have new ammonia level, but will try to chack labs. 03/16- continue medications, held clonidine patch for today due to low BP. repeat labs. 03/17-continue plan of care 03/18- continue tx 03/19 continue same treatment 03/20 waiting for CBC, basic metabolic panel and ammonia level. Today he nearly choked with a grape. We are going to change his diet to chopped 03/21 patient had a fall and he was assessed. No injuries as per CT scan of head and pelvis. Again he refused again his blood work vital signs within normal limits. 03/22 keep same treatment 03/23 keep same treatment 03 24 24 Continue plan of care Depakote Tegretol Haldol carbamazepine 03/25/2024 Repeat swallowing study ordered he is already on ground diet consider lowering Haldol versus Cogentin generally try to avoid older man 03/26 lowered Haldol to 7.5 p.o. b.i.d. 03/27 start Abilify Maintena 400 IM, later on we stopped it since he was over-sedated. 03/28 monitor vital signs and we will order blood work for tomorrow morning. 03/29 keep same treatment. We are deferring Abilify Maintena since the patient is still sedated and looks slightly delirious. He has refused blood work 03/31 continue current tx. less combative but no improvement in mentation. grossly disorganized and non sensical. 04/01: court ordered meds- team reviewing and optimizing same. 04/02 continue tx. 04/03 keep same treatment, so far he had been more compliant with some of the medications in the last 3 days. 04/04 start Abilify Maintena 400 mg IM 04/05 keep Haldol as prescribed 04/06 keep same treatment 04/08/24 continue current plan, regime 04/09/24 continue plan, CAT pending 04/10 continue same treatment 04/11 keep same treatment 04/12 lowering Haldol to 5 mg p.o. b.i.d. since the patient is over-sedated. 04/13 keep same treatment 04/14 agitated today, jumping around, dive off bed, crawling on all 4's, naked; took meds; now sleeping -floridly psychotic and insurance underwriter sales thought best to let pt sleep 04/16 keep same treatment 04/17 Abilify Maintena 400 mg today and scheduled next for 30 days. 04/18 change Haldol to 5 mg p.o. t.i.d. with backup IM if he refuses p.o. 04/19 keep same treatment. 04/20 keep same treatment 04/21: verbally aggressive, restless. continue 1:1 and current Tx plan. 04/22: asleep, not easily rousable. restless and irritable last gwen, slept only 4 hours overnight. continue current mgmt. 04/23 add Cogentin 0.5 p.o. b.i.d. small improvement on his psychosis 04/24 continue with same treatment. 04/25 the patient fell again. Blood pressure had been okay even though that he is noncompliant with clonidine patch. We discussed the case with the medical team and they agreed that we can discontinue since he had been noncompliant of clonidine patch since March 09. Starting on propranolol 5 mg p.o. t.i.d. to target akathisia. 04/26 continue tx. 04/27 continue tx. 04/28 reviewing labs- neutropenia and thrombocytopenia worsening Plt 88, ANC 1000, consult to mohamud/onc as plan to continue depakote given that it has been very difficult to stabilize patient. Also, pt with hx of DM, not on any medications. Will obtain A1c. continues to present disorganized, delirium-like presentation. VS are stable, BP on lower side, no need for additional medication for BP. depakote level 100.1. Ammonia level wnl. Will decrease dose of depakote given pancytopenia. 04/29 will stop depakote (one as it may be contributing to pancytopenia, second because it has not shown significant improvement in mentation), continue carbamazepine, pt seen by oncology- appreciate recommendations- 04/30 continue tx. continue to monitor ANC, Plts. oncology/hem following. 05/01 speech and thought process more organized- which is improvement. sexualized remarks, unaware of unsteady gait and weakness. will repeat CBC- continue monitor pancytopenia. 05/02/24 On lithium monitor pancytopenia wbc 3.0 less confused 05/03/24 Increase lithium 300 bid monitor response watch for confusion 05/04 continue current tx, willc heck lithium level, renal function, TSH and repeat CBC on 06/10 at 7am. may need to increase haldol 05/05/24 Continue lithium and Tegretol encourage fluids check lithium TSH electrolytes continue to monitor CBC 05/06/2024 Patient seen chart reviewed case reviewed with nursing staff. Patient was somewhat more dysphoric today tried to engage in conversation had a difficult time. He slept about 4 hours did get Haldol the other day was offered p.o. Ativan p.r.n. encourage fluids with lithium avoid nonsteroidals no gross confusion or tremor 05/07 continue tx. pending labs for lithium level, TSH, cbc on 05/10. 05/08 continue tx. 05/09 pt appeared to have seizure, was given ativan 2mg IM, CMP does show elevation in BUN 23, and elevation on Cr 1.50, mild hyperkalemia 5.2. CBC shows improvement in platelets 88 to 146, ANC also improved from 800 to 2300. normocytic anemia with Hg 11, stable H&H. will decreased lithium 150mg po BID. Increase carbamazepine to 300mg po BID. Awaiting recommendation from neurology. 05/10 continue tx. monitor CMP- renal function. seen by neurology. 05/11 repeat cmp tomorrow, lowered lithium to 150mg po qhs. continue monitoring renal function. 05/12 Patient doing well, polite, organized in speech and behavior. Discussed his lab work and medication regimen which he understood. Locker Room Attendant inquired about patient's awareness of the past months which he has little memory of but says I was out of my mind... And is happy to be organized. Says he wishes there was a piano on the unit; asks insurance underwriter sales about his career inappropriate, organized way. -switch to Q 15 minute checks Reviewed labs and BUN/creatinine improved; alk-phos only mildly elevated Continue with current treatment plan 05/14/24- continue monitor renal function, will also check carbamazepine level, cbc, and cmp on 05/16/2024. 05/15 continue tx. labs scheduled for 05/16 05/16 labs completed on 05/16 cbc with lower ANC 1500 (from 05/12 3200- this probably due to lowering lithium dose due to increase in BUN and Cr), Platelets trending up although slightly low 150, from 88 on 03/30/2023. Carbamazepine level 8.1 BUN 18, Cr 1.31 (improved from 05/12 BUN 20, Cr 1.46). 05/17 continue tx. 05/18 continue tx. 05/19- much improved CTP! 05/20- CTP 05/21 continue tx. BP was low this morning- 98/55, HR78, will monitor oral intake and renal function. 05/22 continue tx. will check renal function 05/23 05/23 will postpone cmp for next week, not critical at this point and pt asked if they can be done next week as he has had multiple lab work recently. 05/24 continue tx. 05/25 continue tx. asks to speak with urologist about erectile dysfunction- will defer to OP. 05/28 continue tx. 05/29 continue tx. 05/30 continue tx. 05/31 continue tx. 06/01 continue tx. 06/02: stable. asked to address ED, deferred to outpt. no questions or concerns otherwise. 06/03: stable. continue current mgmt. 06/04 labs completed, slightly elevated BUN and Cr from what seemed to be his baseline, although he does have underlying CKD stage3 [place] not making much difference in ANC at this dose and may be affecting renal function (although still close to baseline). will d/c lithium currently 150mg po qhs. 06/05 continue tx. 06/09 continue tx. 06/10 continue tx. 06/11 continue tx. 06/12 continue tx. 06/13 continue tx. 06/14 continue tx. Reason for continued inpatient stay Substantial Risk for: inability to function Time Spent With Patient Time: Total time managing care of this patient today ____ minutes.
--- NOTE | 2024-06-14 10:19 | PC.NURSE ---
Weight for 06/14/2024 165.0 lbs
[2024-06-14 10:43] VITALS: BMI 22.9
[2024-06-15 07:53] VITALS: BP 110/70; PULSE 63; RESP 16; TEMP 36.1; O2SAT 100
[2024-06-15] MEDS: HaloperidoL 5 MG TABLET PO ×3 (08:09→20:31)
[2024-06-15] MEDS: Ferrous Sulfate 324 MG TABLET.DR PO (08:09)
[2024-06-15] MEDS: Benztropine Mesylate 0.5 MG TABLET PO ×2 (08:10→20:31)
[2024-06-15] MEDS: Ascorbic Acid 500 MG TABLET PO (08:10)
[2024-06-15] MEDS: Cholecalciferol (Vitamin D3) 25 MCG TABLET 50 MCG PO (08:10)
[2024-06-15] MEDS: carBAMazepine 200 MG TABLET 300 MG PO ×2 (08:10→20:31)
--- NOTE | 2024-06-15 10:07 | P.PNPSI_ITS ---
Subjective Subjective Date of Service: 06/15/24 Reason For Visit: Schizoaffective disorder Subjective Notes: Section 7 Interim History: Pt slept through the night. Pt presents as pleasant, cooperative. He reports doing well but wants to go soon, pending finding placement. No SI/HI. No overt delusions or psychosis. He is taking medications as prescribed. No behavioral concerns. Social with select peers, appropriate in interactions. Review of Systems Review of Systems No overt seizure-like symptoms Yes Unobtainable due to mental status Mental Status Exam Mental Status Exam Narrative: Appearance: fair hygiene, casual clothing, dressing self on his own, in NAD Behavior: calm; isolative Psychomotor: no agitation or retardation Speech: none observed TP: not observed TC: not observed Mood: not assessed Affect: calm, non-labile SI: none expressed HI: none expressed VH/AH: no overt signs Delusions: no overt Insight/judgment:improved, but still impaired at baseline. Memory/cog: alert, oriented to place, month, situation. Diagnostics Vital Signs (24Hr): Vital Signs - 24 hr 06/15/24 07:53 Temperature 97 F Pulse Rate 63 Respiratory Rate 16 Blood Pressure 110/70 Pulse Oximetry 100 Oxygen Delivery Method Room Air BMI result Body Mass Index 22.9 Labs 06/04/24 09:33 06/04/24 09:33 Imaging Radiology Impressions: ITS Impressions Chest X-Ray 03/20/24 08:33 IMPRESSION: Extremely limited exam. Only lateral views could be obtained. Suspect basilar airspace opacity, possibly pneumonia. Electronically signed by: Fortino Dumont MD 03/20/2024 10:10 AM EST RP Cervical Spine CT 03/21/24 11:18 IMPRESSION: 1. Allowing for suboptimal positioning, there is no CT evidence of acute cervical spine fracture or injury. 2. Degenerative changes with bulky ventral osteophytes spanning C4-C6, appearance in keeping with DISH. Electronically signed by: Fortino Dumont MD 03/21/2024 12:01 PM EST RP Head CT 03/21/24 11:18 IMPRESSION: 1. No acute intracranial abnormality. No acute fractures seen. 2. Stable chronic findings as discussed. Electronically signed by: Fortino Dumont MD 03/21/2024 11:54 AM EST RP Pelvis CT 03/21/24 11:18 IMPRESSION: 1. No acute bony abnormalities. No fractures. 2. Constipation with a large amount of stool in the rectum and sigmoid colon. 3. Mild thickening of the urinary bladder wall despite underdistention, nonspecific. Differential includes the detrusor hypertrophy, neurogenic bladder, or possibly cystitis. Electronically signed by: Fortino Dumont MD 03/21/2024 12:09 PM EST RP Head CT 03/28/24 09:37 IMPRESSION: No acute fracture, bony calvarium. No acute intracranial hemorrhage. Small vessel occlusive disease. Bifrontal bitemporal lobe atrophy. Electronically signed by: Juan Corrigan MD 03/28/2024 10:19 AM EST RP Head CT 04/25/24 12:22 IMPRESSION: No acute intracranial process seen. Electronically signed by: Ritchie Marte MD 04/25/2024 01:01 PM EST RP Medications Medications Current Medications Acetaminophen (Acetaminophen 325 Mg Tablet) 650 mg PO Q6H PRN PRN Reason: pain (1-10) Al Hydroxide/Mg Hydroxide (Magnesium Hydrox/Alum Hydrox 30 Ml Oral.Susp) 30 ml PO Q6H PRN PRN Reason: Heartburn/Nausea Aripiprazole (Aripiprazole Er 400 Mg Suser.Syr) 400 mg IM Q30D [facility] Last Admin: 05/17/24 10:49 Dose: 400 mg Ascorbic Acid (Ascorbic Acid 500 Mg Tablet) 500 mg PO DAILY [facility] Last Admin: 06/15/24 08:10 Dose: 500 mg Aspirin (Aspirin 81 Mg Tab.Chew) 81 mg PO DAILY [facility] Last Admin: 04/23/24 08:34 Dose: 81 mg Benztropine Mesylate (Benztropine Mesylate 0.5 Mg Tablet) 0.5 mg PO BID [facility] Last Admin: 06/15/24 08:10 Dose: 0.5 mg Carbamazepine (Carbamazepine 200 Mg Tablet) 300 mg PO BID [facility] Last Admin: 06/15/24 08:10 Dose: 300 mg Ferrous Sulfate (Ferrous Sulfate 324 Mg Tablet.Dr) 324 mg PO DAILY [facility] Last Admin: 06/15/24 08:09 Dose: 324 mg Haloperidol (Haloperidol 5 Mg Tablet) 5 mg PO TID [facility] Last Admin: 06/15/24 08:09 Dose: 5 mg Haloperidol Lactate (Haloperidol Lactate Oral Conc 10 Mg/5 Ml Oral.Conc) 5 mg PO Q6H PRN PRN Reason: Psychosis or severe agitation Last Admin: 05/05/24 02:37 Dose: 5 mg Haloperidol Lactate (Haloperidol Lactate 5 Mg/Ml Vial) 5 mg IM TID PRN PRN Reason: Refusal of Court PO Haldol Last Admin: 05/06/24 00:36 Dose: 5 mg Magnesium Hydroxide (Milk Of Magnesia 30 Ml Oral.Susp) 30 ml PO DAILY PRN PRN Reason: Constipation Nicotine Polacrilex (Nicotine Polacrilex 2 Mg Gum) 2 mg BUCCAL Q2H PRN PRN Reason: Nicotine Cravings Trazodone HCl (Trazodone Hcl 50 Mg Tablet) 50 mg PO BEDTIME PRN PRN Reason: Insomnia Last Admin: 05/30/24 21:16 Dose: 50 mg Vitamin D (Cholecalciferol (Vitamin D3) 25 Mcg Tablet) 50 mcg PO DAILY [facility] Last Admin: 06/15/24 08:10 Dose: 50 mcg Allergies Allergies Allergy/AdvReac Type Severity Reaction Status Date / Time lithium Allergy Unknown Verified 01/13/24 18:08 divalproex sodium AdvReac Severe encephalopa Verified 05/08/24 12:34 [From Depakote] thy Assessment & Plan Assessment & Plan (1) Schizoaffective disorder, bipolar type: Status: Acute Code(s): F25.0 - Schizoaffective disorder, bipolar type (2) Diabetes mellitus: Status: Acute Code(s): E11.9 - Type 2 diabetes mellitus without complications Assessment and Plan: A1c on 04/28 5.9% Not on current medications (3) Hypertension: Status: Acute Code(s): I10 - Essential (primary) hypertension Assessment and Plan: not on current medications (4) Pancytopenia: Status: Acute Code(s): D61.818 - Other pancytopenia Assessment and Plan: seems to be improving after dc depakote CBC on 05/09/2024--> shows improvement in platelets 88 to 146, ANC also improved from 800 to 2300. normocytic anemia with Hgb 11, stable H&H. labs completed on 05/16 cbc with lower ANC 1500 (from 05/12 3200- this probably due to lowering lithium dose due to increase in BUN and Cr), Platelets trending up although slightly low 150, from 88 on 03/30/2023. Carbamazepine level 8.1 BUN 18, Cr 1.31 (improved from 05/12 BUN 20, Cr 1.46). Labs completed 06/04/2024- CBC normocytic enemia, slightly elevated but w/in normal range MCV. Plt 153, ANC 1400. CMP elevation BUN 24, Cr 1.56, creatinine clearance 45.8. (5) Chronic kidney disease (CKD): Status: Acute Code(s): N18.9 - Chronic kidney disease, unspecified Assessment and Plan: on low dose of lithium, closely monitoring renal function. Plan 03/23 keep same treatment 68 yo from a [facility] with chronic psychotic disorder, refusing medication , elevated bp and disorganized and agitated behavior requiring psychiatric hospitalization and treatment not competent to sign cv. 01/14 continue to follow - gave lambs warning today- and he says the magistrate judge will be a she- still refusing medications and quite psychotic takes alot of redirection to settle him poor adls- 01/15- Refuses meds, refuses hospitalist consult-second day File for Section Seven consideration on 01/17. Provide care as he will allow. 01/16: Depakote 250 mg bid Haldol, Lorazepam, Benadryl prn Section 7 to be filed 01/17 Message left for guardian. 01/17: Section Seven filed. . Court scheduled 01/26/24 Pt continues to refuse medicaitons. He is in need of full assist with ADL's and is incontinent. Pt transferred to [facility] this afternoon. 01/19/2024 Patient pending civil commitment loud agitated would not engage in any conversation with this advertising copy writer non informational healing agitated verbally aggressive. Every attempt being made to get a copy of the patient's Servin order unclear why this has been so problematic. Encourage food and fluids 01/19 continue same treatment 01/21/24 Patient labile agitated intrusive close labs ordered in order to per to protect the community patient wandering into patient's rooms intrusive impulsive laying on another person's bed. Often hostile agitated posturing at times we are still pending copy of reported Servin order encourage p.o. compliance 01/22/2024 Patient did require physical hold escort him out of a room that he jumped in other patient's room and on their bed while there were in it. There was no physical harm and the patient did leave the room his markedly impulsive with poor judgment remains on close observation has intermittently taken Haldol liquid pending civil commitment treatment plan there is a question of Servin order 01/22 The patient had been more agitated. We review his Servin order and we are increasing the Abilify up to 15 mg p.o. daily and adding Haldol p.r.n. since it is in his role years order. We needed to give him some p.r.n. at 14:00. 01/23 The patient is grossly psychotic disrobing and sexually disinhibited we are starting Haldol 2 mg p.o. t.i.d. to target psychosis as per court order treatment over objection order. 01/24 The patient remains very agitated and angry disruptive so we are increasing the Haldol from 2 mg to 5 mg p.o. t.i.d. with a backup IM if the patient refused as per court order. 01/25 we have increased the Haldol but still he is very psychotic and restless. Today he refused his blood work. He needed to be physically held twice. 01/26 the patient remains agitated at times but his last IM backup was yesterday. We are going to increase Abilify up to 20 mg daily to target mood lability and psychosis. 01/29/2024: Increase frequency of prn doses from tid to prn q 6mrs. Poor insight and unable to care for self 02/08 pt has not take any of mood stabilizer. continues to have poor sleep, intrusive and combative requiring IM medications, increase haldol 10mg po TID, back up IM. Will add ativan 1mg po TID, also back up IM. Labs show elevated CK 2300, BUN 20, Cr 1.80, unclear baseline Cr as he does have CKD. Discussed with hospitalist Dr. Gama, to give IV fluids and monitor labs tomorrow. LFTs also elevated suspect this is secondary to elevation in CK and should trend down as CK goes down. 02/09 still agitated, creatinine and CPK slightly high as yesterday, he removed his IV line there is no big difference with IV hydration. We are changing his community role years to have more options since it is not working Abilify and Haldol 02/10 3 chemical restraints yesterday. appears more combative, and somewhat more confused. Will decrease amount of benzo and antihistamine given to him as it seems to be backfiring. did discuss with ICU attending, Dr. Whiteside possibility of transferring there but they would like us to try IV depakote and exhaust all resources prior to considering transfer. Pt did take depakote springkle 1000mg with apple sauce with much encourage. 02/11 continue tx. 02/12 continue same treatment 01/14 continue with Abilify and other court order medications, we are Nam[place] and the court order. 02/14 Team report improvement today with pt having greater comfort and less agitation. [id number] the staff reported that the patient had been less violent in the last 24 hours 02/16 continue tx. will check depakote and ammonia on 02/17 in AM. 02/17 continue regime and plan of care 02/26/2024: Continue current regimen as per court order 03/03 continue tx. lactulose for now as we don't have new ammonia level, but will try to chack labs. 03/16- continue medications, held clonidine patch for today due to low BP. repeat labs. 03/17-continue plan of care 03/18- continue tx 03/19 continue same treatment 03/20 waiting for CBC, basic metabolic panel and ammonia level. Today he nearly choked with a grape. We are going to change his diet to chopped 03/21 patient had a fall and he was assessed. No injuries as per CT scan of head and pelvis. Again he refused again his blood work vital signs within normal limits. 03/22 keep same treatment 03/23 keep same treatment 03 24 24 Continue plan of care Depakote Tegretol Haldol carbamazepine 03/25/2024 Repeat swallowing study ordered he is already on ground diet consider lowering Haldol versus Cogentin generally try to avoid older man 03/26 lowered Haldol to 7.5 p.o. b.i.d. 03/27 start Abilify Maintena 400 IM, later on we stopped it since he was over- sedated. 03/28 monitor vital signs and we will order blood work for tomorrow morning. 03/29 keep same treatment. We are deferring Abilify Maintena since the patient is still sedated and looks slightly delirious. He has refused blood work 03/31 continue current tx. less combative but no improvement in mentation. grossly disorganized and non sensical. 04/01: court ordered meds- team reviewing and optimizing same. 04/02 continue tx. 04/03 keep same treatment, so far he had been more compliant with some of the medications in the last 3 days. 04/04 start Abilify Maintena 400 mg IM 04/05 keep Haldol as prescribed 04/06 keep same treatment 04/08/24 continue current plan, regime 04/09/24 continue plan, CAT pending 04/10 continue same treatment 04/11 keep same treatment 04/12 lowering Haldol to 5 mg p.o. b.i.d. since the patient is over-sedated. 04/13 keep same treatment 04/14 agitated today, jumping around, dive off bed, crawling on all 4's, naked; took meds; now sleeping -floridly psychotic and advertising copy writer thought best to let pt sleep 04/16 keep same treatment 04/17 Abilify Maintena 400 mg today and scheduled next for 30 days. 04/18 change Haldol to 5 mg p.o. t.i.d. with backup IM if he refuses p.o. 04/19 keep same treatment. 04/20 keep same treatment 04/21: verbally aggressive, restless. continue 1:1 and current Tx plan. 04/22: asleep, not easily rousable. restless and irritable last gwen, slept only 4 hours overnight. continue current mgmt. 04/23 add Cogentin 0.5 p.o. b.i.d. small improvement on his psychosis 04/24 continue with same treatment. 04/25 the patient fell again. Blood pressure had been okay even though that he is noncompliant with clonidine patch. We discussed the case with the medical team and they agreed that we can discontinue since he had been noncompliant of clonidine patch since March 09. Starting on propranolol 5 mg p.o. t.i.d. to target akathisia. 04/26 continue tx. 04/27 continue tx. 04/28 reviewing labs- neutropenia and thrombocytopenia worsening Plt 88, ANC 1000, consult to mohamud/onc as plan to continue depakote given that it has been very difficult to stabilize patient. Also, pt with hx of DM, not on any medications. Will obtain A1c. continues to present disorganized, delirium-like presentation. VS are stable, BP on lower side, no need for additional medication for BP. depakote level 100.1. Ammonia level wnl. Will decrease dose of depakote given pancytopenia. 04/29 will stop depakote (one as it may be contributing to pancytopenia, second because it has not shown significant improvement in mentation), continue carbamazepine, pt seen by oncology- appreciate recommendations- 04/30 continue tx. continue to monitor ANC, Plts. oncology/hem following. 05/01 speech and thought process more organized- which is improvement. sexualized remarks, unaware of unsteady gait and weakness. will repeat CBC- continue monitor pancytopenia. 05/02/24 On lithium monitor pancytopenia wbc 3.0 less confused 05/03/24 Increase lithium 300 bid monitor response watch for confusion 05/04 continue current tx, willc heck lithium level, renal function, TSH and repeat CBC on 06/10 at 7am. may need to increase haldol 05/05/24 Continue lithium and Tegretol encourage fluids check lithium TSH electrolytes continue to monitor CBC 05/06/2024 Patient seen chart reviewed case reviewed with nursing staff. Patient was somewhat more dysphoric today tried to engage in conversation had a difficult time. He slept about 4 hours did get Haldol the other day was offered p.o. Ativan p.r.n. encourage fluids with lithium avoid nonsteroidals no gross confusion or tremor 05/07 continue tx. pending labs for lithium level, TSH, cbc on 05/10. 05/08 continue tx. 05/09 pt appeared to have seizure, was given ativan 2mg IM, CMP does show elevation in BUN 23, and elevation on Cr 1.50, mild hyperkalemia 5.2. CBC shows improvement in platelets 88 to 146, ANC also improved from 800 to 2300. normocytic anemia with Hg 11, stable H&H. will decreased lithium 150mg po BID. Increase carbamazepine to 300mg po BID. Awaiting recommendation from neurology. 05/10 continue tx. monitor CMP- renal function. seen by neurology. 05/11 repeat cmp tomorrow, lowered lithium to 150mg po qhs. continue monitoring renal function. 05/12 Patient doing well, polite, organized in speech and behavior. Discussed his lab work and medication regimen which he understood. Fire Inspector inquired about patient's awareness of the past months which he has little memory of but says I was out of my mind... And is happy to be organized. Says he wishes there was a piano on the unit; asks advertising copy writer about his career inappropriate, organized way. -switch to Q 15 minute checks Reviewed labs and BUN/creatinine improved; alk-phos only mildly elevated Continue with current treatment plan 05/14/24- continue monitor renal function, will also check carbamazepine level, cbc, and cmp on 05/16/2024. 05/15 continue tx. labs scheduled for 05/16 05/16 labs completed on 05/16 cbc with lower ANC 1500 (from 05/12 3200- this probably due to lowering lithium dose due to increase in BUN and Cr), Platelets trending up although slightly low 150, from 88 on 03/30/2023. Carbamazepine level 8.1 BUN 18, Cr 1.31 (improved from 05/12 BUN 20, Cr 1.46). 05/17 continue tx. 05/18 continue tx. 05/19- much improved CTP! 05/20- CTP 05/21 continue tx. BP was low this morning- 98/55, HR78, will monitor oral intake and renal function. 05/22 continue tx. will check renal function 05/23 05/23 will postpone cmp for next week, not critical at this point and pt asked if they can be done next week as he has had multiple lab work recently. 05/24 continue tx. 05/25 continue tx. asks to speak with urologist about erectile dysfunction- will defer to OP. 05/28 continue tx. 05/29 continue tx. 05/30 continue tx. 05/31 continue tx. 06/01 continue tx. 06/02: stable. asked to address ED, deferred to outpt. no questions or concerns otherwise. 06/03: stable. continue current mgmt. 06/04 labs completed, slightly elevated BUN and Cr from what seemed to be his baseline, although he does have underlying CKD stage3 [place] not making much difference in ANC at this dose and may be affecting renal function (although still close to baseline). will d/c lithium currently 150mg po qhs. 06/05 continue tx. 06/09 continue tx. 06/10 continue tx. 06/11 continue tx. 06/12 continue tx. 06/13 continue tx. 06/14 continue tx. 06/15 continue tx. Reason for continued inpatient stay Substantial Risk for: inability to function Time Spent With Patient Time: Total time managing care of this patient today ____ minutes.
[2024-06-15 20:00] VITALS: BP 117/56; PULSE 62; RESP 16; TEMP 36.2; O2SAT 100
[2024-06-16 10:40] VITALS: BP 131/60; PULSE 67; RESP 16; TEMP 36.5; O2SAT 100
[2024-06-16] MEDS: carBAMazepine 200 MG TABLET 300 MG PO ×2 (10:41→21:14)
[2024-06-16] MEDS: Cholecalciferol (Vitamin D3) 25 MCG TABLET 50 MCG PO (10:41)
[2024-06-16] MEDS: Ferrous Sulfate 324 MG TABLET.DR PO (10:43)
[2024-06-16] MEDS: HaloperidoL 5 MG TABLET PO ×3 (10:43→21:14)
[2024-06-16] MEDS: Ascorbic Acid 500 MG TABLET PO (10:43)
[2024-06-16] MEDS: Benztropine Mesylate 0.5 MG TABLET PO ×2 (10:59→21:14)
[2024-06-16] MEDS: ARIPiprazole ER 400 MG SUSER.SYR IM (13:19)
[2024-06-16 20:00] VITALS: BP 138/64; PULSE 62; RESP 16; TEMP 36.2; O2SAT 100
[2024-06-17 08:00] VITALS: BP 161/62; PULSE 70; RESP 18; TEMP 36.2; O2SAT 98
[2024-06-17] MEDS: Cholecalciferol (Vitamin D3) 25 MCG TABLET 50 MCG PO (08:31)
[2024-06-17] MEDS: carBAMazepine 200 MG TABLET 300 MG PO ×2 (08:31→20:39)
[2024-06-17] MEDS: Ferrous Sulfate 324 MG TABLET.DR PO (08:32)
[2024-06-17] MEDS: HaloperidoL 5 MG TABLET PO ×3 (08:32→20:42)
[2024-06-17] MEDS: Benztropine Mesylate 0.5 MG TABLET PO ×2 (08:32→20:41)
[2024-06-17] MEDS: Ascorbic Acid 500 MG TABLET PO (08:32)
[2024-06-17 10:43] VITALS: BMI 22.6
--- NOTE | 2024-06-17 17:49 | P.PNPSI_ITS ---
Subjective Subjective Date of Service: 06/17/24 Reason For Visit: Schizoaffective disorder Interim History: Late entry note for patient seen on 06/16; discussed with team says he is fine; no questions, no complaints; staff reports remains stable Mental Status Exam Mental Status Exam Narrative: Appearance: fair hygiene, casual clothing, dressing self on his own, in NAD Behavior: calm; isolative Psychomotor: no agitation or retardation Speech: none observed TP: not observed TC: not observed Mood: not assessed Affect: calm, non-labile SI: none expressed HI: none expressed VH/AH: no overt signs Delusions: no overt Insight/judgment:improved, but still impaired at baseline. Memory/cog: alert, oriented to place, month, situation. Diagnostics Vital Signs (24Hr): Vital Signs - 24 hr 06/16/24 20:00 06/17/24 08:00 Temperature 97.1 F 97.1 F Pulse Rate 62 70 Respiratory Rate 16 18 Blood Pressure 138/64 161/62 H Pulse Oximetry 100 98 Oxygen Delivery Method Room Air Room Air BMI result Body Mass Index 22.6 Labs 06/20/24 10:09 06/20/24 10:09 Imaging Radiology Impressions: ITS Impressions Chest X-Ray 03/20/24 08:33 IMPRESSION: Extremely limited exam. Only lateral views could be obtained. Suspect basilar airspace opacity, possibly pneumonia. Electronically signed by: Fortino Dumont MD 03/20/2024 10:10 AM EST RP Cervical Spine CT 03/21/24 11:18 IMPRESSION: 1. Allowing for suboptimal positioning, there is no CT evidence of acute cervical spine fracture or injury. 2. Degenerative changes with bulky ventral osteophytes spanning C4-C6, appearance in keeping with DISH. Electronically signed by: Fortino Dumont MD 03/21/2024 12:01 PM EST RP Head CT 03/21/24 11:18 IMPRESSION: 1. No acute intracranial abnormality. No acute fractures seen. 2. Stable chronic findings as discussed. Electronically signed by: Fortino Dumont MD 03/21/2024 11:54 AM EST RP Pelvis CT 03/21/24 11:18 IMPRESSION: 1. No acute bony abnormalities. No fractures. 2. Constipation with a large amount of stool in the rectum and sigmoid colon. 3. Mild thickening of the urinary bladder wall despite underdistention, nonspecific. Differential includes the detrusor hypertrophy, neurogenic bladder, or possibly cystitis. Electronically signed by: Fortino Dumont MD 03/21/2024 12:09 PM EST RP Head CT 03/28/24 09:37 IMPRESSION: No acute fracture, bony calvarium. No acute intracranial hemorrhage. Small vessel occlusive disease. Bifrontal bitemporal lobe atrophy. Electronically signed by: Juan Corrigan MD 03/28/2024 10:19 AM EST RP Head CT 04/25/24 12:22 IMPRESSION: No acute intracranial process seen. Electronically signed by: Ritchie Marte MD 04/25/2024 01:01 PM EST RP Medications Medications Current Medications Acetaminophen (Acetaminophen 325 Mg Tablet) 650 mg PO Q6H PRN PRN Reason: pain (1-10) Al Hydroxide/Mg Hydroxide (Magnesium Hydrox/Alum Hydrox 30 Ml Oral.Susp) 30 ml PO Q6H PRN PRN Reason: Heartburn/Nausea Aripiprazole (Aripiprazole Er 400 Mg Suser.Syr) 400 mg IM Q30D [facility] Last Admin: 06/16/24 13:19 Dose: 400 mg Ascorbic Acid (Ascorbic Acid 500 Mg Tablet) 500 mg PO DAILY [facility] Last Admin: 06/17/24 08:32 Dose: 500 mg Aspirin (Aspirin 81 Mg Tab.Chew) 81 mg PO DAILY [facility] Last Admin: 04/23/24 08:34 Dose: 81 mg Benztropine Mesylate (Benztropine Mesylate 0.5 Mg Tablet) 0.5 mg PO BID [facility] Last Admin: 06/17/24 08:32 Dose: 0.5 mg Carbamazepine (Carbamazepine 200 Mg Tablet) 300 mg PO BID [facility] Last Admin: 06/17/24 08:31 Dose: 300 mg Ferrous Sulfate (Ferrous Sulfate 324 Mg Tablet.Dr) 324 mg PO DAILY [facility] Last Admin: 06/17/24 08:32 Dose: 324 mg Haloperidol (Haloperidol 5 Mg Tablet) 5 mg PO TID [facility] Last Admin: 06/17/24 15:36 Dose: 5 mg Haloperidol Lactate (Haloperidol Lactate Oral Conc 10 Mg/5 Ml Oral.Conc) 5 mg PO Q6H PRN PRN Reason: Psychosis or severe agitation Last Admin: 05/05/24 02:37 Dose: 5 mg Haloperidol Lactate (Haloperidol Lactate 5 Mg/Ml Vial) 5 mg IM TID PRN PRN Reason: Refusal of Court PO Haldol Last Admin: 05/06/24 00:36 Dose: 5 mg Magnesium Hydroxide (Milk Of Magnesia 30 Ml Oral.Susp) 30 ml PO DAILY PRN PRN Reason: Constipation Nicotine Polacrilex (Nicotine Polacrilex 2 Mg Gum) 2 mg BUCCAL Q2H PRN PRN Reason: Nicotine Cravings Trazodone HCl (Trazodone Hcl 50 Mg Tablet) 50 mg PO BEDTIME PRN PRN Reason: Insomnia Last Admin: 05/30/24 21:16 Dose: 50 mg Vitamin D (Cholecalciferol (Vitamin D3) 25 Mcg Tablet) 50 mcg PO DAILY [facility] Last Admin: 06/17/24 08:31 Dose: 50 mcg Allergies Allergies Allergy/AdvReac Type Severity Reaction Status Date / Time lithium Allergy Unknown Verified 01/13/24 18:08 divalproex sodium AdvReac Severe encephalopa Verified 05/08/24 12:34 [From Depakote] thy Assessment & Plan Assessment & Plan (1) Schizoaffective disorder, bipolar type: Status: Acute Code(s): F25.0 - Schizoaffective disorder, bipolar type (2) Diabetes mellitus: Status: Acute Code(s): E11.9 - Type 2 diabetes mellitus without complications Assessment and Plan: A1c on 04/28 5.9% Not on current medications (3) Hypertension: Status: Acute Code(s): I10 - Essential (primary) hypertension Assessment and Plan: not on current medications (4) Pancytopenia: Status: Acute Code(s): D61.818 - Other pancytopenia Assessment and Plan: seems to be improving after dc depakote CBC on 05/09/2024--> shows improvement in platelets 88 to 146, ANC also improved from 800 to 2300. normocytic anemia with Hgb 11, stable H&H. labs completed on 05/16 cbc with lower ANC 1500 (from 05/12 3200- this probably due to lowering lithium dose due to increase in BUN and Cr), Platelets trending up although slightly low 150, from 88 on 03/30/2023. Carbamazepine level 8.1 BUN 18, Cr 1.31 (improved from 05/12 BUN 20, Cr 1.46). Labs completed 06/04/2024- CBC normocytic enemia, slightly elevated but w/in normal range MCV. Plt 153, ANC 1400. CMP elevation BUN 24, Cr 1.56, creatinine clearance 45.8. (5) Chronic kidney disease (CKD): Status: Acute Code(s): N18.9 - Chronic kidney disease, unspecified Assessment and Plan: on low dose of lithium, closely monitoring renal function. Plan 03/23 keep same treatment 68 yo from a [facility] with chronic psychotic disorder, refusing medication , elevated bp and disorganized and agitated behavior requiring psychiatric hospitalization and treatment not competent to sign cv. 01/14 continue to follow - gave lambs warning today- and he says the data governance consultant will be a she- still refusing medications and quite psychotic takes alot of redirection to settle him poor adls- 01/15- Refuses meds, refuses hospitalist consult-second day File for Section Seven consideration on 01/17. Provide care as he will allow. 01/16: Depakote 250 mg bid Haldol, Lorazepam, Benadryl prn Section 7 to be filed 01/17 Message left for guardian. 01/17: Section Seven filed. . Court scheduled 01/26/24 Pt continues to refuse medicaitons. He is in need of full assist with ADL's and is incontinent. Pt transferred to [facility] this afternoon. 01/19/2024 Patient pending civil commitment loud agitated would not engage in any conversation with this policy writer sales non informational healing agitated verbally aggressive. Every attempt being made to get a copy of the patient's Servin order unclear why this has been so problematic. Encourage food and fluids 01/19 continue same treatment 01/21/24 Patient labile agitated intrusive close labs ordered in order to per to protect the community patient wandering into patient's rooms intrusive impulsive laying on another person's bed. Often hostile agitated posturing at times we are still pending copy of reported Servin order encourage p.o. compliance 01/22/2024 Patient did require physical hold escort him out of a room that he jumped in other patient's room and on their bed while there were in it. There was no physical harm and the patient did leave the room his markedly impulsive with poor judgment remains on close observation has intermittently taken Haldol liquid pending civil commitment treatment plan there is a question of Servin order 01/22 The patient had been more agitated. We review his Servin order and we are increasing the Abilify up to 15 mg p.o. daily and adding Haldol p.r.n. since it is in his role years order. We needed to give him some p.r.n. at 14:00. 01/23 The patient is grossly psychotic disrobing and sexually disinhibited we are starting Haldol 2 mg p.o. t.i.d. to target psychosis as per court order treatment over objection order. 01/24 The patient remains very agitated and angry disruptive so we are increasing the Haldol from 2 mg to 5 mg p.o. t.i.d. with a backup IM if the patient refused as per court order. 01/25 we have increased the Haldol but still he is very psychotic and restless. Today he refused his blood work. He needed to be physically held twice. 01/26 the patient remains agitated at times but his last IM backup was yesterday. We are going to increase Abilify up to 20 mg daily to target mood lability and psychosis. 01/29/2024: Increase frequency of prn doses from tid to prn q 6mrs. Poor insight and unable to care for self 02/08 pt has not take any of mood stabilizer. continues to have poor sleep, intrusive and combative requiring IM medications, increase haldol 10mg po TID, back up IM. Will add ativan 1mg po TID, also back up IM. Labs show elevated CK 2300, BUN 20, Cr 1.80, unclear baseline Cr as he does have CKD. Discussed with hospitalist Dr. Gama, to give IV fluids and monitor labs tomorrow. LFTs also elevated suspect this is secondary to elevation in CK and should trend down as CK goes down. 02/09 still agitated, creatinine and CPK slightly high as yesterday, he removed his IV line there is no big difference with IV hydration. We are changing his community role years to have more options since it is not working Abilify and Haldol 02/10 3 chemical restraints yesterday. appears more combative, and somewhat more confused. Will decrease amount of benzo and antihistamine given to him as it seems to be backfiring. did discuss with ICU attending, Dr. Whiteside possibility of transferring there but they would like us to try IV depakote and exhaust all resources prior to considering transfer. Pt did take depakote springkle 1000mg with apple sauce with much encourage. 02/11 continue tx. 02/12 continue same treatment 01/14 continue with Abilify and other court order medications, we are Nam[place] and the court order. 02/14 Team report improvement today with pt having greater comfort and less agitation. [id number] the staff reported that the patient had been less violent in the last 24 hours 02/16 continue tx. will check depakote and ammonia on 02/17 in AM. 02/17 continue regime and plan of care 02/26/2024: Continue current regimen as per court order 03/03 continue tx. lactulose for now as we don't have new ammonia level, but will try to chack labs. 03/16- continue medications, held clonidine patch for today due to low BP. repeat labs. 03/17-continue plan of care 03/18- continue tx 03/19 continue same treatment 03/20 waiting for CBC, basic metabolic panel and ammonia level. Today he nearly choked with a grape. We are going to change his diet to chopped 03/21 patient had a fall and he was assessed. No injuries as per CT scan of head and pelvis. Again he refused again his blood work vital signs within normal limits. 03/22 keep same treatment 03/23 keep same treatment 03 24 24 Continue plan of care Depakote Tegretol Haldol carbamazepine 03/25/2024 Repeat swallowing study ordered he is already on ground diet consider lowering Haldol versus Cogentin generally try to avoid older man 03/26 lowered Haldol to 7.5 p.o. b.i.d. 03/27 start Abilify Maintena 400 IM, later on we stopped it since he was over- sedated. 03/28 monitor vital signs and we will order blood work for tomorrow morning. 03/29 keep same treatment. We are deferring Abilify Maintena since the patient is still sedated and looks slightly delirious. He has refused blood work 03/31 continue current tx. less combative but no improvement in mentation. grossly disorganized and non sensical. 04/01: court ordered meds- team reviewing and optimizing same. 04/02 continue tx. 04/03 keep same treatment, so far he had been more compliant with some of the medications in the last 3 days. 04/04 start Abilify Maintena 400 mg IM 04/05 keep Haldol as prescribed 04/06 keep same treatment 04/08/24 continue current plan, regime 04/09/24 continue plan, CAT pending 04/10 continue same treatment 04/11 keep same treatment 04/12 lowering Haldol to 5 mg p.o. b.i.d. since the patient is over-sedated. 04/13 keep same treatment 04/14 agitated today, jumping around, dive off bed, crawling on all 4's, naked; took meds; now sleeping -floridly psychotic and policy writer sales thought best to let pt sleep 04/16 keep same treatment 04/17 Abilify Maintena 400 mg today and scheduled next for 30 days. 04/18 change Haldol to 5 mg p.o. t.i.d. with backup IM if he refuses p.o. 04/19 keep same treatment. 04/20 keep same treatment 04/21: verbally aggressive, restless. continue 1:1 and current Tx plan. 04/22: asleep, not easily rousable. restless and irritable last gwen, slept only 4 hours overnight. continue current mgmt. 04/23 add Cogentin 0.5 p.o. b.i.d. small improvement on his psychosis 04/24 continue with same treatment. 04/25 the patient fell again. Blood pressure had been okay even though that he is noncompliant with clonidine patch. We discussed the case with the medical team and they agreed that we can discontinue since he had been noncompliant of clonidine patch since March 09. Starting on propranolol 5 mg p.o. t.i.d. to target akathisia. 04/26 continue tx. 04/27 continue tx. 04/28 reviewing labs- neutropenia and thrombocytopenia worsening Plt 88, ANC 1000, consult to mohamud/onc as plan to continue depakote given that it has been very difficult to stabilize patient. Also, pt with hx of DM, not on any medications. Will obtain A1c. continues to present disorganized, delirium-like presentation. VS are stable, BP on lower side, no need for additional medication for BP. depakote level 100.1. Ammonia level wnl. Will decrease dose of depakote given pancytopenia. 04/29 will stop depakote (one as it may be contributing to pancytopenia, second because it has not shown significant improvement in mentation), continue carbamazepine, pt seen by oncology- appreciate recommendations- 04/30 continue tx. continue to monitor ANC, Plts. oncology/hem following. 05/01 speech and thought process more organized- which is improvement. sexualized remarks, unaware of unsteady gait and weakness. will repeat CBC- continue monitor pancytopenia. 05/02/24 On lithium monitor pancytopenia wbc 3.0 less confused 05/03/24 Increase lithium 300 bid monitor response watch for confusion 05/04 continue current tx, willc heck lithium level, renal function, TSH and repeat CBC on 06/10 at 7am. may need to increase haldol 05/05/24 Continue lithium and Tegretol encourage fluids check lithium TSH electrolytes continue to monitor CBC 05/06/2024 Patient seen chart reviewed case reviewed with nursing staff. Patient was somewhat more dysphoric today tried to engage in conversation had a difficult time. He slept about 4 hours did get Haldol the other day was offered p.o. Ativan p.r.n. encourage fluids with lithium avoid nonsteroidals no gross confusion or tremor 05/07 continue tx. pending labs for lithium level, TSH, cbc on 05/10. 05/08 continue tx. 05/09 pt appeared to have seizure, was given ativan 2mg IM, CMP does show elevation in BUN 23, and elevation on Cr 1.50, mild hyperkalemia 5.2. CBC shows improvement in platelets 88 to 146, ANC also improved from 800 to 2300. normocytic anemia with Hg 11, stable H&H. will decreased lithium 150mg po BID. Increase carbamazepine to 300mg po BID. Awaiting recommendation from neurology. 05/10 continue tx. monitor CMP- renal function. seen by neurology. 05/11 repeat cmp tomorrow, lowered lithium to 150mg po qhs. continue monitoring renal function. 05/12 Patient doing well, polite, organized in speech and behavior. Discussed his lab work and medication regimen which he understood. Steel Crane Operator inquired about patient's awareness of the past months which he has little memory of but says I was out of my mind... And is happy to be organized. Says he wishes there was a piano on the unit; asks policy writer sales about his career inappropriate, organized way. -switch to Q 15 minute checks Reviewed labs and BUN/creatinine improved; alk-phos only mildly elevated Continue with current treatment plan 05/14/24- continue monitor renal function, will also check carbamazepine level, cbc, and cmp on 05/16/2024. 05/15 continue tx. labs scheduled for 05/16 05/16 labs completed on 05/16 cbc with lower ANC 1500 (from 05/12 3200- this probably due to lowering lithium dose due to increase in BUN and Cr), Platelets trending up although slightly low 150, from 88 on 03/30/2023. Carbamazepine level 8.1 BUN 18, Cr 1.31 (improved from 05/12 BUN 20, Cr 1.46). 05/17 continue tx. 05/18 continue tx. 05/19- much improved CTP! 05/20- CTP 05/21 continue tx. BP was low this morning- 98/55, HR78, will monitor oral intake and renal function. 05/22 continue tx. will check renal function 05/23 05/23 will postpone cmp for next week, not critical at this point and pt asked if they can be done next week as he has had multiple lab work recently. 05/24 continue tx. 05/25 continue tx. asks to speak with urologist about erectile dysfunction- will defer to OP. 05/28 continue tx. 05/29 continue tx. 05/30 continue tx. 05/31 continue tx. 06/01 continue tx. 06/02: stable. asked to address ED, deferred to outpt. no questions or concerns otherwise. 06/03: stable. continue current mgmt. 06/04 labs completed, slightly elevated BUN and Cr from what seemed to be his baseline, although he does have underlying CKD stage3 [place] not making much difference in ANC at this dose and may be affecting renal function (although still close to baseline). will d/c lithium currently 150mg po qhs. 06/05 continue tx. 06/15 continue tx. 06/16 continue tx. Patient educated on: diagnosis Informed Consent: further education needed Reason for continued inpatient stay Substantial Risk for: stable for discharge Time Spent With Patient Time: Total time managing care of this patient today ____ minutes.
--- NOTE | 2024-06-17 18:03 | P.PNPSI_ITS ---
Subjective Subjective Date of Service: 06/17/24 Reason For Visit: Schizoaffective disorder Interim History: met with pt; discussed with team sitting at keyboard listening to music; discussed playing a bit no change in presentation Mental Status Exam Mental Status Exam Narrative: Appearance: fair hygiene, casual clothing, dressing self on his own, in NAD Behavior: calm; isolative Psychomotor: no agitation or retardation Speech: none observed TP: not observed TC: not observed Mood: not assessed Affect: calm, non-labile SI: none expressed HI: none expressed VH/AH: no overt signs Delusions: no overt Insight/judgment:improved, but still impaired at baseline. Memory/cog: alert, oriented to place, month, situation. Diagnostics Vital Signs (24Hr): Vital Signs - 24 hr 06/16/24 20:00 06/17/24 08:00 Temperature 97.1 F 97.1 F Pulse Rate 62 70 Respiratory Rate 16 18 Blood Pressure 138/64 161/62 H Pulse Oximetry 100 98 Oxygen Delivery Method Room Air Room Air BMI result Body Mass Index 22.6 Labs 06/20/24 10:09 06/20/24 10:09 Imaging Radiology Impressions: ITS Impressions Chest X-Ray 03/20/24 08:33 IMPRESSION: Extremely limited exam. Only lateral views could be obtained. Suspect basilar airspace opacity, possibly pneumonia. Electronically signed by: Fortino Dumont MD 03/20/2024 10:10 AM EST RP Cervical Spine CT 03/21/24 11:18 IMPRESSION: 1. Allowing for suboptimal positioning, there is no CT evidence of acute cervical spine fracture or injury. 2. Degenerative changes with bulky ventral osteophytes spanning C4-C6, appearance in keeping with DISH. Electronically signed by: Fortino Dumont MD 03/21/2024 12:01 PM EST RP Head CT 03/21/24 11:18 IMPRESSION: 1. No acute intracranial abnormality. No acute fractures seen. 2. Stable chronic findings as discussed. Electronically signed by: Fortino Dumont MD 03/21/2024 11:54 AM EST RP Pelvis CT 03/21/24 11:18 IMPRESSION: 1. No acute bony abnormalities. No fractures. 2. Constipation with a large amount of stool in the rectum and sigmoid colon. 3. Mild thickening of the urinary bladder wall despite underdistention, nonspecific. Differential includes the detrusor hypertrophy, neurogenic bladder, or possibly cystitis. Electronically signed by: Fortino Dumont MD 03/21/2024 12:09 PM EST RP Head CT 03/28/24 09:37 IMPRESSION: No acute fracture, bony calvarium. No acute intracranial hemorrhage. Small vessel occlusive disease. Bifrontal bitemporal lobe atrophy. Electronically signed by: Juan Corrigan MD 03/28/2024 10:19 AM EST RP Head CT 04/25/24 12:22 IMPRESSION: No acute intracranial process seen. Electronically signed by: Ritchie Marte MD 04/25/2024 01:01 PM EST RP Medications Medications Current Medications Acetaminophen (Acetaminophen 325 Mg Tablet) 650 mg PO Q6H PRN PRN Reason: pain (1-10) Al Hydroxide/Mg Hydroxide (Magnesium Hydrox/Alum Hydrox 30 Ml Oral.Susp) 30 ml PO Q6H PRN PRN Reason: Heartburn/Nausea Aripiprazole (Aripiprazole Er 400 Mg Suser.Syr) 400 mg IM Q30D [facility] Last Admin: 06/16/24 13:19 Dose: 400 mg Ascorbic Acid (Ascorbic Acid 500 Mg Tablet) 500 mg PO DAILY [facility] Last Admin: 06/17/24 08:32 Dose: 500 mg Aspirin (Aspirin 81 Mg Tab.Chew) 81 mg PO DAILY [facility] Last Admin: 04/23/24 08:34 Dose: 81 mg Benztropine Mesylate (Benztropine Mesylate 0.5 Mg Tablet) 0.5 mg PO BID [facility] Last Admin: 06/17/24 08:32 Dose: 0.5 mg Carbamazepine (Carbamazepine 200 Mg Tablet) 300 mg PO BID [facility] Last Admin: 06/17/24 08:31 Dose: 300 mg Ferrous Sulfate (Ferrous Sulfate 324 Mg Tablet.Dr) 324 mg PO DAILY [facility] Last Admin: 06/17/24 08:32 Dose: 324 mg Haloperidol (Haloperidol 5 Mg Tablet) 5 mg PO TID [facility] Last Admin: 06/17/24 15:36 Dose: 5 mg Haloperidol Lactate (Haloperidol Lactate Oral Conc 10 Mg/5 Ml Oral.Conc) 5 mg PO Q6H PRN PRN Reason: Psychosis or severe agitation Last Admin: 05/05/24 02:37 Dose: 5 mg Haloperidol Lactate (Haloperidol Lactate 5 Mg/Ml Vial) 5 mg IM TID PRN PRN Reason: Refusal of Court PO Haldol Last Admin: 05/06/24 00:36 Dose: 5 mg Magnesium Hydroxide (Milk Of Magnesia 30 Ml Oral.Susp) 30 ml PO DAILY PRN PRN Reason: Constipation Nicotine Polacrilex (Nicotine Polacrilex 2 Mg Gum) 2 mg BUCCAL Q2H PRN PRN Reason: Nicotine Cravings Trazodone HCl (Trazodone Hcl 50 Mg Tablet) 50 mg PO BEDTIME PRN PRN Reason: Insomnia Last Admin: 05/30/24 21:16 Dose: 50 mg Vitamin D (Cholecalciferol (Vitamin D3) 25 Mcg Tablet) 50 mcg PO DAILY [facility] Last Admin: 06/17/24 08:31 Dose: 50 mcg Allergies Allergies Allergy/AdvReac Type Severity Reaction Status Date / Time lithium Allergy Unknown Verified 01/13/24 18:08 divalproex sodium AdvReac Severe encephalopa Verified 05/08/24 12:34 [From Depakote] thy Assessment & Plan Assessment & Plan (1) Schizoaffective disorder, bipolar type: Status: Acute Code(s): F25.0 - Schizoaffective disorder, bipolar type (2) Diabetes mellitus: Status: Acute Code(s): E11.9 - Type 2 diabetes mellitus without complications Assessment and Plan: A1c on 04/28 5.9% Not on current medications (3) Hypertension: Status: Acute Code(s): I10 - Essential (primary) hypertension Assessment and Plan: not on current medications (4) Pancytopenia: Status: Acute Code(s): D61.818 - Other pancytopenia Assessment and Plan: seems to be improving after dc depakote CBC on 05/09/2024--> shows improvement in platelets 88 to 146, ANC also improved from 800 to 2300. normocytic anemia with Hgb 11, stable H&H. labs completed on 05/16 cbc with lower ANC 1500 (from 05/12 3200- this probably due to lowering lithium dose due to increase in BUN and Cr), Platelets trending up although slightly low 150, from 88 on 03/30/2023. Carbamazepine level 8.1 BUN 18, Cr 1.31 (improved from 05/12 BUN 20, Cr 1.46). Labs completed 06/04/2024- CBC normocytic enemia, slightly elevated but w/in normal range MCV. Plt 153, ANC 1400. CMP elevation BUN 24, Cr 1.56, creatinine clearance 45.8. (5) Chronic kidney disease (CKD): Status: Acute Code(s): N18.9 - Chronic kidney disease, unspecified Assessment and Plan: on low dose of lithium, closely monitoring renal function. Plan 03/23 keep same treatment 68 yo [place] [facility] [place] with chronic psychotic disorder, refusing medication , elevated bp and disorganized and agitated behavior requiring psychiatric hospitalization and treatment not competent to sign cv. 01/14 continue to follow - gave lambs warning today- and he says the dog show judge will be a she- still refusing medications and quite psychotic takes alot of redirection to settle him poor adls- 01/15- Refuses meds, refuses hospitalist consult-second day File for Section [place] consideration on 01/17. Provide care as he will allow. 01/16: Depakote 250 mg bid Haldol, Lorazepam, Benadryl prn Section 7 to be filed 01/17 Message left for guardian. 01/17: Section Seven filed. . Court scheduled 01/26/24 Pt continues to refuse medicaitons. He is in need of full assist with ADL's and is incontinent. Pt transferred to [facility] this afternoon. 01/19/2024 Patient pending civil commitment loud agitated would not engage in any conversation with this grant writer non informational healing agitated verbally aggressive. Every attempt being made to get a copy of the patient's Servin order unclear why this has been so problematic. Encourage food and fluids 01/19 continue same treatment 01/21/24 Patient labile agitated intrusive close labs ordered in order to per to protect the community patient wandering into patient's rooms intrusive impulsive laying on another person's bed. Often hostile agitated posturing at times we are still pending copy of reported Servin order encourage p.o. compliance 01/22/2024 Patient did require physical hold escort him out of a room that he jumped in other patient's room and on their bed while there were in it. There was no physical harm and the patient did leave the room his markedly impulsive with poor judgment remains on close observation has intermittently taken Haldol liquid pending civil commitment treatment plan there is a question of Servin order 01/22 The patient had been more agitated. We review his Servin order and we are increasing the Abilify up to 15 mg p.o. daily and adding Haldol p.r.n. since it is in his role years order. We needed to give him some p.r.n. at 14:00. 01/23 The patient is grossly psychotic disrobing and sexually disinhibited we are starting Haldol 2 mg p.o. t.i.d. to target psychosis as per court order treatment over objection order. 01/24 The patient remains very agitated and angry disruptive so we are increasing the Haldol from 2 mg to 5 mg p.o. t.i.d. with a backup IM if the patient refused as per court order. 01/25 we have increased the Haldol but still he is very psychotic and restless. Today he refused his blood work. He needed to be physically held twice. 01/26 the patient remains agitated at times but his last IM backup was yesterday. We are going to increase Abilify up to 20 mg daily to target mood lability and psychosis. 01/29/2024: Increase frequency of prn doses from tid to prn q 6mrs. Poor insight and unable to care for self 02/08 pt has not take any of mood stabilizer. continues to have poor sleep, intrusive and combative requiring IM medications, increase haldol 10mg po TID, back up IM. Will add ativan 1mg po TID, also back up IM. Labs show elevated CK 2300, BUN 20, Cr 1.80, unclear baseline Cr as he does have CKD. Discussed with hospitalist Dr. Gama, to give IV fluids and monitor labs tomorrow. LFTs also elevated suspect this is secondary to elevation in CK and should trend down as CK goes down. 02/09 still agitated, creatinine and CPK slightly high as yesterday, he removed his IV line there is no big difference with IV hydration. We are changing his community role years to have more options since it is not working Abilify and Haldol 02/10 3 chemical restraints yesterday. appears more combative, and somewhat more confused. Will decrease amount of benzo and antihistamine given to him as it seems to be backfiring. did discuss with ICU attending, Dr. Whiteside possibility of transferring there but they would like us to try IV depakote and exhaust all resources prior to considering transfer. Pt did take depakote springkle 1000mg with apple sauce with much encourage. 02/11 continue tx. 02/12 continue same treatment 01/14 continue with Abilify and other court order medications, we are Nam[place] and the court order. 02/14 Team report improvement today with pt having greater comfort and less agitation. [id number] the staff reported that the patient had been less violent in the last 24 hours 02/16 continue tx. will check depakote and ammonia on 02/17 in AM. 02/17 continue regime and plan of care 02/26/2024: Continue current regimen as per court order 03/03 continue tx. lactulose for now as we don't have new ammonia level, but will try to chack labs. 03/16- continue medications, held clonidine patch for today due to low BP. repeat labs. 03/17-continue plan of care 03/18- continue tx 03/19 continue same treatment 03/20 waiting for CBC, basic metabolic panel and ammonia level. Today he nearly choked with a grape. We are going to change his diet to chopped 03/21 patient had a fall and he was assessed. No injuries as per CT scan of head and pelvis. Again he refused again his blood work vital signs within normal limits. 03/22 keep same treatment 03/23 keep same treatment 03 24 24 Continue plan of care Depakote Tegretol Haldol carbamazepine 03/25/2024 Repeat swallowing study ordered he is already on ground diet consider lowering Haldol versus Cogentin generally try to avoid older man 03/26 lowered Haldol to 7.5 p.o. b.i.d. 03/27 start Abilify Maintena 400 IM, later on we stopped it since he was over- sedated. 03/28 monitor vital signs and we will order blood work for tomorrow morning. 03/29 keep same treatment. We are deferring Abilify Maintena since the patient is still sedated and looks slightly delirious. He has refused blood work 03/31 continue current tx. less combative but no improvement in mentation. grossly disorganized and non sensical. 04/01: court ordered meds- team reviewing and optimizing same. 04/02 continue tx. 04/03 keep same treatment, so far he had been more compliant with some of the medications in the last 3 days. 04/04 start Abilify Maintena 400 mg IM 04/05 keep Haldol as prescribed 04/06 keep same treatment 04/08/24 continue current plan, regime 04/09/24 continue plan, CAT pending 04/10 continue same treatment 04/11 keep same treatment 04/12 lowering Haldol to 5 mg p.o. b.i.d. since the patient is over-sedated. 04/13 keep same treatment 04/14 agitated today, jumping around, dive off bed, crawling on all 4's, naked; took meds; now sleeping -floridly psychotic and grant writer thought best to let pt sleep 04/16 keep same treatment 04/17 Abilify Maintena 400 mg today and scheduled next for 30 days. 04/18 change Haldol to 5 mg p.o. t.i.d. with backup IM if he refuses p.o. 04/19 keep same treatment. 04/20 keep same treatment 04/21: verbally aggressive, restless. continue 1:1 and current Tx plan. 04/22: asleep, not easily rousable. restless and irritable last gwen, slept only 4 hours overnight. continue current mgmt. 04/23 add Cogentin 0.5 p.o. b.i.d. small improvement on his psychosis 04/24 continue with same treatment. 04/25 the patient fell again. Blood pressure had been okay even though that he is noncompliant with clonidine patch. We discussed the case with the medical team and they agreed that we can discontinue since he had been noncompliant of clonidine patch since March 09. Starting on propranolol 5 mg p.o. t.i.d. to target akathisia. 04/26 continue tx. 04/27 continue tx. 04/28 reviewing labs- neutropenia and thrombocytopenia worsening Plt 88, ANC 1000, consult to mohamud/onc as plan to continue depakote given that it has been very difficult to stabilize patient. Also, pt with hx of DM, not on any medications. Will obtain A1c. continues to present disorganized, delirium-like presentation. VS are stable, BP on lower side, no need for additional medication for BP. depakote level 100.1. Ammonia level wnl. Will decrease dose of depakote given pancytopenia. 04/29 will stop depakote (one as it may be contributing to pancytopenia, second because it has not shown significant improvement in mentation), continue carbamazepine, pt seen by oncology- appreciate recommendations- 04/30 continue tx. continue to monitor ANC, Plts. oncology/hem following. 05/01 speech and thought process more organized- which is improvement. sexualized remarks, unaware of unsteady gait and weakness. will repeat CBC- continue monitor pancytopenia. 05/02/24 On lithium monitor pancytopenia wbc 3.0 less confused 05/03/24 Increase lithium 300 bid monitor response watch for confusion 05/04 continue current tx, willc heck lithium level, renal function, TSH and repeat CBC on 06/10 at 7am. may need to increase haldol 05/05/24 Continue lithium and Tegretol encourage fluids check lithium TSH electrolytes continue to monitor CBC 05/06/2024 Patient seen chart reviewed case reviewed with nursing staff. Patient was somewhat more dysphoric today tried to engage in conversation had a difficult time. He slept about 4 hours did get Haldol the other day was offered p.o. Ativan p.r.n. encourage fluids with lithium avoid nonsteroidals no gross confusion or tremor 05/07 continue tx. pending labs for lithium level, TSH, cbc on 05/10. 05/08 continue tx. 05/09 pt appeared to have seizure, was given ativan 2mg IM, CMP does show elevation in BUN 23, and elevation on Cr 1.50, mild hyperkalemia 5.2. CBC shows improvement in platelets 88 to 146, ANC also improved from 800 to 2300. normocytic anemia with Hg 11, stable H&H. will decreased lithium 150mg po BID. Increase carbamazepine to 300mg po BID. Awaiting recommendation from neurology. 05/10 continue tx. monitor CMP- renal function. seen by neurology. 05/11 repeat cmp tomorrow, lowered lithium to 150mg po qhs. continue monitoring renal function. 05/12 Patient doing well, polite, organized in speech and behavior. Discussed his lab work and medication regimen which he understood. Cadmium Burner inquired about patient's awareness of the past months which he has little memory of but says I was out of my mind... And is happy to be organized. Says he wishes there was a piano on the unit; asks grant writer about his career inappropriate, organized way. -switch to Q 15 minute checks Reviewed labs and BUN/creatinine improved; alk-phos only mildly elevated Continue with current treatment plan 05/14/24- continue monitor renal function, will also check carbamazepine level, cbc, and cmp on 05/16/2024. 05/15 continue tx. labs scheduled for 05/16 05/16 labs completed on 05/16 cbc with lower ANC 1500 (from 05/12 3200- this probably due to lowering lithium dose due to increase in BUN and Cr), Platelets trending up although slightly low 150, from 88 on 03/30/2023. Carbamazepine level 8.1 BUN 18, Cr 1.31 (improved from 05/12 BUN 20, Cr 1.46). 05/17 continue tx. 05/18 continue tx. 05/19- much improved CTP! 05/20- CTP 05/21 continue tx. BP was low this morning- 98/55, HR78, will monitor oral intake and renal function. 05/22 continue tx. will check renal function 05/23 05/23 will postpone cmp for next week, not critical at this point and pt asked if they can be done next week as he has had multiple lab work recently. 05/24 continue tx. 05/25 continue tx. asks to speak with urologist about erectile dysfunction- will defer to OP. 05/28 continue tx. 05/29 continue tx. 05/30 continue tx. 05/31 continue tx. 06/01 continue tx. 06/02: stable. asked to address ED, deferred to outpt. no questions or concerns otherwise. 06/03: stable. continue current mgmt. 06/04 labs completed, slightly elevated BUN and Cr from what seemed to be his baseline, although he does have underlying CKD stage3 Panora not making much difference in ANC at this dose and may be affecting renal function (although still close to baseline). will d/c lithium currently 150mg po qhs. 06/05 continue tx. 06/15 continue tx. 06/16 continue tx. Reason for continued inpatient stay Substantial Risk for: stable for discharge Time Spent With Patient Time: Total time managing care of this patient today ____ minutes.
[2024-06-17 20:00] VITALS: BP 116/56; PULSE 57; RESP 16; TEMP 36.3; O2SAT 97
[2024-06-18 08:00] VITALS: BP 123/63; PULSE 80; RESP 18; TEMP 36; O2SAT 100
[2024-06-18] MEDS: Ascorbic Acid 500 MG TABLET PO (08:20)
[2024-06-18] MEDS: Ferrous Sulfate 324 MG TABLET.DR PO (08:20)
[2024-06-18] MEDS: Benztropine Mesylate 0.5 MG TABLET PO ×2 (08:20→20:24)
[2024-06-18] MEDS: HaloperidoL 5 MG TABLET PO ×3 (08:20→20:24)
[2024-06-18] MEDS: carBAMazepine 200 MG TABLET 300 MG PO ×2 (08:21→20:24)
[2024-06-18] MEDS: Cholecalciferol (Vitamin D3) 25 MCG TABLET 50 MCG PO (08:21)
--- NOTE | 2024-06-18 15:58 | P.PNPSI_ITS ---
Subjective Subjective Date of Service: 06/18/24 Reason For Visit: Schizoaffective disorder Subjective Notes: Section 7 Interim History: Pt slept through the night. He is taking medications as prescribed. He is visible on the unit. He is very pleasant on approach. Very polite and appropriate. He reports he is waiting for placement but trying not to worry too much. He denies SI/HI. No overt psychosis or delusions. Review of Systems Review of Systems No overt seizure-like symptoms Yes Unobtainable due to mental status Mental Status Exam Mental Status Exam Narrative: Appearance: fair hygiene, casual clothing, dressing self on his own, in NAD Behavior: calm; isolative Psychomotor: no agitation or retardation Speech: none observed TP: not observed TC: not observed Mood: not assessed Affect: calm, non-labile SI: none expressed HI: none expressed VH/AH: no overt signs Delusions: no overt Insight/judgment:improved, but still impaired at baseline. Memory/cog: alert, oriented to place, month, situation. Diagnostics Vital Signs (24Hr): Vital Signs - 24 hr 06/17/24 20:00 06/18/24 08:00 Temperature 97.3 F 96.8 F Pulse Rate 57 80 Respiratory Rate 16 18 Blood Pressure 116/56 L 123/63 Pulse Oximetry 97 100 Oxygen Delivery Method Room Air Room Air BMI result Body Mass Index 22.6 Labs 06/04/24 09:33 06/04/24 09:33 Imaging Radiology Impressions: ITS Impressions Chest X-Ray 03/20/24 08:33 IMPRESSION: Extremely limited exam. Only lateral views could be obtained. Suspect basilar airspace opacity, possibly pneumonia. Electronically signed by: Fortino Dumont MD 03/20/2024 10:10 AM EST RP Cervical Spine CT 03/21/24 11:18 IMPRESSION: 1. Allowing for suboptimal positioning, there is no CT evidence of acute cervical spine fracture or injury. 2. Degenerative changes with bulky ventral osteophytes spanning C4-C6, appearance in keeping with DISH. Electronically signed by: Fortino Dumont MD 03/21/2024 12:01 PM EST RP Head CT 03/21/24 11:18 IMPRESSION: 1. No acute intracranial abnormality. No acute fractures seen. 2. Stable chronic findings as discussed. Electronically signed by: Fortino Dumont MD 03/21/2024 11:54 AM EST RP Pelvis CT 03/21/24 11:18 IMPRESSION: 1. No acute bony abnormalities. No fractures. 2. Constipation with a large amount of stool in the rectum and sigmoid colon. 3. Mild thickening of the urinary bladder wall despite underdistention, nonspecific. Differential includes the detrusor hypertrophy, neurogenic bladder, or possibly cystitis. Electronically signed by: Fortino Dumont MD 03/21/2024 12:09 PM EST RP Head CT 03/28/24 09:37 IMPRESSION: No acute fracture, bony calvarium. No acute intracranial hemorrhage. Small vessel occlusive disease. Bifrontal bitemporal lobe atrophy. Electronically signed by: Juan Corrigan MD 03/28/2024 10:19 AM EST RP Head CT 04/25/24 12:22 IMPRESSION: No acute intracranial process seen. Electronically signed by: Ritchie Marte MD 04/25/2024 01:01 PM EST RP Medications Medications Current Medications Acetaminophen (Acetaminophen 325 Mg Tablet) 650 mg PO Q6H PRN PRN Reason: pain (1-10) Al Hydroxide/Mg Hydroxide (Magnesium Hydrox/Alum Hydrox 30 Ml Oral.Susp) 30 ml PO Q6H PRN PRN Reason: Heartburn/Nausea Aripiprazole (Aripiprazole Er 400 Mg Suser.Syr) 400 mg IM Q30D [facility] Last Admin: 06/16/24 13:19 Dose: 400 mg Ascorbic Acid (Ascorbic Acid 500 Mg Tablet) 500 mg PO DAILY [facility] Last Admin: 06/18/24 08:20 Dose: 500 mg Aspirin (Aspirin 81 Mg Tab.Chew) 81 mg PO DAILY [facility] Last Admin: 04/23/24 08:34 Dose: 81 mg Benztropine Mesylate (Benztropine Mesylate 0.5 Mg Tablet) 0.5 mg PO BID [facility] Last Admin: 06/18/24 08:20 Dose: 0.5 mg Carbamazepine (Carbamazepine 200 Mg Tablet) 300 mg PO BID [facility] Last Admin: 06/18/24 08:21 Dose: 300 mg Ferrous Sulfate (Ferrous Sulfate 324 Mg Tablet.Dr) 324 mg PO DAILY [facility] Last Admin: 06/18/24 08:20 Dose: 324 mg Haloperidol (Haloperidol 5 Mg Tablet) 5 mg PO TID [facility] Last Admin: 06/18/24 14:51 Dose: 5 mg Haloperidol Lactate (Haloperidol Lactate Oral Conc 10 Mg/5 Ml Oral.Conc) 5 mg PO Q6H PRN PRN Reason: Psychosis or severe agitation Last Admin: 05/05/24 02:37 Dose: 5 mg Haloperidol Lactate (Haloperidol Lactate 5 Mg/Ml Vial) 5 mg IM TID PRN PRN Reason: Refusal of Court PO Haldol Last Admin: 05/06/24 00:36 Dose: 5 mg Magnesium Hydroxide (Milk Of Magnesia 30 Ml Oral.Susp) 30 ml PO DAILY PRN PRN Reason: Constipation Nicotine Polacrilex (Nicotine Polacrilex 2 Mg Gum) 2 mg BUCCAL Q2H PRN PRN Reason: Nicotine Cravings Trazodone HCl (Trazodone Hcl 50 Mg Tablet) 50 mg PO BEDTIME PRN PRN Reason: Insomnia Last Admin: 05/30/24 21:16 Dose: 50 mg Vitamin D (Cholecalciferol (Vitamin D3) 25 Mcg Tablet) 50 mcg PO DAILY [facility] Last Admin: 06/18/24 08:21 Dose: 50 mcg Allergies Allergies Allergy/AdvReac Type Severity Reaction Status Date / Time lithium Allergy Unknown Verified 01/13/24 18:08 divalproex sodium AdvReac Severe encephalopa Verified 05/08/24 12:34 [From Depakote] thy Assessment & Plan Assessment & Plan (1) Schizoaffective disorder, bipolar type: Status: Acute Code(s): F25.0 - Schizoaffective disorder, bipolar type (2) Diabetes mellitus: Status: Acute Code(s): E11.9 - Type 2 diabetes mellitus without complications Assessment and Plan: A1c on 04/28 5.9% Not on current medications (3) Hypertension: Status: Acute Code(s): I10 - Essential (primary) hypertension Assessment and Plan: not on current medications (4) Pancytopenia: Status: Acute Code(s): D61.818 - Other pancytopenia Assessment and Plan: seems to be improving after dc depakote CBC on 05/09/2024--> shows improvement in platelets 88 to 146, ANC also improved from 800 to 2300. normocytic anemia with Hgb 11, stable H&H. labs completed on 05/16 cbc with lower ANC 1500 (from 05/12 3200- this probably due to lowering lithium dose due to increase in BUN and Cr), Platelets trending up although slightly low 150, from 88 on 03/30/2023. Carbamazepine level 8.1 BUN 18, Cr 1.31 (improved from 05/12 BUN 20, Cr 1.46). Labs completed 06/04/2024- CBC normocytic enemia, slightly elevated but w/in normal range MCV. Plt 153, ANC 1400. CMP elevation BUN 24, Cr 1.56, creatinine clearance 45.8. (5) Chronic kidney disease (CKD): Status: Acute Code(s): N18.9 - Chronic kidney disease, unspecified Assessment and Plan: on low dose of lithium, closely monitoring renal function. Plan 03/23 keep same treatment 68 yo from a f[facility] with chronic psychotic disorder, refusing medication , elevated bp and disorganized and agitated behavior requiring psychiatric hospitalization and treatment not competent to sign cv. 01/14 continue to follow - gave lambs warning today- and he says the duplicator punch operator will be a she- still refusing medications and quite psychotic takes alot of redirection to settle him poor adls- 01/15- Refuses meds, refuses hospitalist consult-second day File for Section Seven consideration on 01/17. Provide care as he will allow. 01/16: Depakote 250 mg bid Haldol, Lorazepam, Benadryl prn Section 7 to be filed 01/17 Message left for guardian. 01/17: Section Seven filed. . Court scheduled 01/26/24 Pt continues to refuse medicaitons. He is in need of full assist with ADL's and is incontinent. Pt transferred to [facility] this afternoon. 01/19/2024 Patient pending civil commitment loud agitated would not engage in any conversation with this scenario writer non informational healing agitated verbally aggressive. Every attempt being made to get a copy of the patient's Servin order unclear why this has been so problematic. Encourage food and fluids 01/19 continue same treatment 01/21/24 Patient labile agitated intrusive close labs ordered in order to per to protect the community patient wandering into patient's rooms intrusive impulsive laying on another person's bed. Often hostile agitated posturing at times we are still pending copy of reported Servin order encourage p.o. compliance 01/22/2024 Patient did require physical hold escort him out of a room that he jumped in other patient's room and on their bed while there were in it. There was no physical harm and the patient did leave the room his markedly impulsive with poor judgment remains on close observation has intermittently taken Haldol liquid pending civil commitment treatment plan there is a question of Servin order 01/22 The patient had been more agitated. We review his Servin order and we are increasing the Abilify up to 15 mg p.o. daily and adding Haldol p.r.n. since it is in his role years order. We needed to give him some p.r.n. at 14:00. 01/23 The patient is grossly psychotic disrobing and sexually disinhibited we are starting Haldol 2 mg p.o. t.i.d. to target psychosis as per court order treatment over objection order. 01/24 The patient remains very agitated and angry disruptive so we are increasing the Haldol from 2 mg to 5 mg p.o. t.i.d. with a backup IM if the patient refused as per court order. 01/25 we have increased the Haldol but still he is very psychotic and restless. Today he refused his blood work. He needed to be physically held twice. 01/26 the patient remains agitated at times but his last IM backup was yesterday. We are going to increase Abilify up to 20 mg daily to target mood lability and psychosis. 01/29/2024: Increase frequency of prn doses from tid to prn q 6mrs. Poor insight and unable to care for self 02/08 pt has not take any of mood stabilizer. continues to have poor sleep, intrusive and combative requiring IM medications, increase haldol 10mg po TID, back up IM. Will add ativan 1mg po TID, also back up IM. Labs show elevated CK 2300, BUN 20, Cr 1.80, unclear baseline Cr as he does have CKD. Discussed with hospitalist Dr. Gama, to give IV fluids and monitor labs tomorrow. LFTs also elevated suspect this is secondary to elevation in CK and should trend down as CK goes down. 02/09 still agitated, creatinine and CPK slightly high as yesterday, he removed his IV line there is no big difference with IV hydration. We are changing his community role years to have more options since it is not working Abilify and Haldol 02/10 3 chemical restraints yesterday. appears more combative, and somewhat more confused. Will decrease amount of benzo and antihistamine given to him as it seems to be backfiring. did discuss with ICU attending, Dr. Whiteside possibility of transferring there but they would like us to try IV depakote and exhaust all resources prior to considering transfer. Pt did take depakote springkle 1000mg with apple sauce with much encourage. 02/11 continue tx. 02/12 continue same treatment 01/14 continue with Abilify and other court order medications, we are Nam[place] and the court order. 02/14 Team report improvement today with pt having greater comfort and less agitation. [id number] the staff reported that the patient had been less violent in the last 24 hours 02/16 continue tx. will check depakote and ammonia on 02/17 in AM. 02/17 continue regime and plan of care 02/26/2024: Continue current regimen as per court order 03/03 continue tx. lactulose for now as we don't have new ammonia level, but will try to chack labs. 03/16- continue medications, held clonidine patch for today due to low BP. repeat labs. 03/17-continue plan of care 03/18- continue tx 03/19 continue same treatment 03/20 waiting for CBC, basic metabolic panel and ammonia level. Today he nearly choked with a grape. We are going to change his diet to chopped 03/21 patient had a fall and he was assessed. No injuries as per CT scan of head and pelvis. Again he refused again his blood work vital signs within normal limits. 03/22 keep same treatment 03/23 keep same treatment 03 24 24 Continue plan of care Depakote Tegretol Haldol carbamazepine 03/25/2024 Repeat swallowing study ordered he is already on ground diet consider lowering Haldol versus Cogentin generally try to avoid older man 03/26 lowered Haldol to 7.5 p.o. b.i.d. 03/27 start Abilify Maintena 400 IM, later on we stopped it since he was over- sedated. 03/28 monitor vital signs and we will order blood work for tomorrow morning. 03/29 keep same treatment. We are deferring Abilify Maintena since the patient is still sedated and looks slightly delirious. He has refused blood work 03/31 continue current tx. less combative but no improvement in mentation. grossly disorganized and non sensical. 04/01: court ordered meds- team reviewing and optimizing same. 04/02 continue tx. 04/03 keep same treatment, so far he had been more compliant with some of the medications in the last 3 days. 04/04 start Abilify Maintena 400 mg IM 04/05 keep Haldol as prescribed 04/06 keep same treatment 04/08/24 continue current plan, regime 04/09/24 continue plan, CAT pending 04/10 continue same treatment 04/11 keep same treatment 04/12 lowering Haldol to 5 mg p.o. b.i.d. since the patient is over-sedated. 04/13 keep same treatment 04/14 agitated today, jumping around, dive off bed, crawling on all 4's, naked; took meds; now sleeping -floridly psychotic and scenario writer thought best to let pt sleep 04/16 keep same treatment 04/17 Abilify Maintena 400 mg today and scheduled next for 30 days. 04/18 change Haldol to 5 mg p.o. t.i.d. with backup IM if he refuses p.o. 04/19 keep same treatment. 04/20 keep same treatment 04/21: verbally aggressive, restless. continue 1:1 and current Tx plan. 04/22: asleep, not easily rousable. restless and irritable last gwen, slept only 4 hours overnight. continue current mgmt. 04/23 add Cogentin 0.5 p.o. b.i.d. small improvement on his psychosis 04/24 continue with same treatment. 04/25 the patient fell again. Blood pressure had been okay even though that he is noncompliant with clonidine patch. We discussed the case with the medical team and they agreed that we can discontinue since he had been noncompliant of clonidine patch since March 09. Starting on propranolol 5 mg p.o. t.i.d. to target akathisia. 04/26 continue tx. 04/27 continue tx. 04/28 reviewing labs- neutropenia and thrombocytopenia worsening Plt 88, ANC 1000, consult to mohamud/onc as plan to continue depakote given that it has been very difficult to stabilize patient. Also, pt with hx of DM, not on any medications. Will obtain A1c. continues to present disorganized, delirium-like presentation. VS are stable, BP on lower side, no need for additional medication for BP. depakote level 100.1. Ammonia level wnl. Will decrease dose of depakote given pancytopenia. 04/29 will stop depakote (one as it may be contributing to pancytopenia, second because it has not shown significant improvement in mentation), continue carbamazepine, pt seen by oncology- appreciate recommendations- 04/30 continue tx. continue to monitor ANC, Plts. oncology/hem following. 05/01 speech and thought process more organized- which is improvement. sexualized remarks, unaware of unsteady gait and weakness. will repeat CBC- continue monitor pancytopenia. 05/02/24 On lithium monitor pancytopenia wbc 3.0 less confused 05/03/24 Increase lithium 300 bid monitor response watch for confusion 05/04 continue current tx, willc heck lithium level, renal function, TSH and repeat CBC on 06/10 at 7am. may need to increase haldol 05/05/24 Continue lithium and Tegretol encourage fluids check lithium TSH electrolytes continue to monitor CBC 05/06/2024 Patient seen chart reviewed case reviewed with nursing staff. Patient was somewhat more dysphoric today tried to engage in conversation had a difficult time. He slept about 4 hours did get Haldol the other day was offered p.o. Ativan p.r.n. encourage fluids with lithium avoid nonsteroidals no gross confusion or tremor 05/07 continue tx. pending labs for lithium level, TSH, cbc on 05/10. 05/08 continue tx. 05/09 pt appeared to have seizure, was given ativan 2mg IM, CMP does show elevation in BUN 23, and elevation on Cr 1.50, mild hyperkalemia 5.2. CBC shows improvement in platelets 88 to 146, ANC also improved from 800 to 2300. normocytic anemia with Hg 11, stable H&H. will decreased lithium 150mg po BID. Increase carbamazepine to 300mg po BID. Awaiting recommendation from neurology. 05/10 continue tx. monitor CMP- renal function. seen by neurology. 05/11 repeat cmp tomorrow, lowered lithium to 150mg po qhs. continue monitoring renal function. 05/12 Patient doing well, polite, organized in speech and behavior. Discussed his lab work and medication regimen which he understood. Gas Plumbing Inspector inquired about patient's awareness of the past months which he has little memory of but says I was out of my mind... And is happy to be organized. Says he wishes there was a piano on the unit; asks scenario writer about his career inappropriate, organized way. -switch to Q 15 minute checks Reviewed labs and BUN/creatinine improved; alk-phos only mildly elevated Continue with current treatment plan 05/14/24- continue monitor renal function, will also check carbamazepine level, cbc, and cmp on 05/16/2024. 05/15 continue tx. labs scheduled for 05/16 05/16 labs completed on 05/16 cbc with lower ANC 1500 (from 05/12 3200- this probably due to lowering lithium dose due to increase in BUN and Cr), Platelets trending up although slightly low 150, from 88 on 03/30/2023. Carbamazepine level 8.1 BUN 18, Cr 1.31 (improved from 05/12 BUN 20, Cr 1.46). 05/17 continue tx. 05/18 continue tx. 05/19- much improved CTP! 05/20- CTP 05/21 continue tx. BP was low this morning- 98/55, HR78, will monitor oral intake and renal function. 05/22 continue tx. will check renal function 05/23 05/23 will postpone cmp for next week, not critical at this point and pt asked if they can be done next week as he has had multiple lab work recently. 05/24 continue tx. 05/25 continue tx. asks to speak with urologist about erectile dysfunction- will defer to OP. 05/28 continue tx. 05/29 continue tx. 05/30 continue tx. 05/31 continue tx. 06/01 continue tx. 06/02: stable. asked to address ED, deferred to outpt. no questions or concerns otherwise. 06/03: stable. continue current mgmt. 06/04 labs completed, slightly elevated BUN and Cr from what seemed to be his baseline, although he does have underlying CKD stage3 Rosalia not making much difference in ANC at this dose and may be affecting renal function (although still close to baseline). will d/c lithium currently 150mg po qhs. 06/05 continue tx. 06/15 continue tx. 06/16 continue tx. 06/18 continue tx. will check renal function cbc this week. Reason for continued inpatient stay Substantial Risk for: inability to function Time Spent With Patient Time: Total time managing care of this patient today ____ minutes.
[2024-06-18 20:00] VITALS: BP 159/74; PULSE 63; RESP 18; TEMP 37.1; O2SAT 100
[2024-06-19 08:00] VITALS: BP 142/67; PULSE 63; RESP 18; TEMP 2.6; TEMP 36.7; O2SAT 99
[2024-06-19] MEDS: Ferrous Sulfate 324 MG TABLET.DR PO (08:46)
[2024-06-19] MEDS: HaloperidoL 5 MG TABLET PO ×3 (08:46→21:18)
[2024-06-19] MEDS: carBAMazepine 200 MG TABLET 300 MG PO ×2 (08:46→21:18)
[2024-06-19] MEDS: Benztropine Mesylate 0.5 MG TABLET PO ×2 (08:46→21:18)
[2024-06-19] MEDS: Cholecalciferol (Vitamin D3) 25 MCG TABLET 50 MCG PO (08:47)
[2024-06-19] MEDS: Ascorbic Acid 500 MG TABLET PO (08:47)
--- NOTE | 2024-06-19 16:48 | HO.PSYCHPN ---
Subjective Subjective Date of Service: 06/19/24 Reason For Visit: Schizoaffective disorder Interim History: Pt slept through the night. He is taking medications as prescribed. He is visible on the unit. He is very pleasant on approach. Very polite and appropriate. He reports he is waiting for placement but trying not to worry too much. He denies SI/HI. No overt psychosis or delusions. Review of Systems Review of Systems No overt seizure-like symptoms Yes Unobtainable due to mental status Mental Status Exam Mental Status Exam Narrative: Appearance: fair hygiene, casual clothing, dressing self on his own, in NAD Behavior: calm; isolative Psychomotor: no agitation or retardation Speech: none observed TP: linear TC: feeling well Mood: good Affect: calm, non-labile SI: none expressed HI: none expressed VH/AH: no overt signs Delusions: no overt Insight/judgment:improved x 2. Memory/cog: alert, oriented to place, month, situation, year. Diagnostics Vital Signs (24Hr): Vital Signs - 24 hr 06/18/24 20:00 06/19/24 08:00 Temperature 98.8 F 36.7 F L Pulse Rate 63 63 Respiratory Rate 18 18 Blood Pressure 159/74 H 142/67 H Pulse Oximetry 100 99 Oxygen Delivery Method Room Air Room Air BMI result Body Mass Index 22.6 Labs 06/04/24 09:33 06/04/24 09:33 Imaging Radiology Impressions: ITS Impressions Chest X-Ray 03/20/24 08:33 IMPRESSION: Extremely limited exam. Only lateral views could be obtained. Suspect basilar airspace opacity, possibly pneumonia. Electronically signed by: Fortino Dumont MD 03/20/2024 10:10 AM EST RP Cervical Spine CT 03/21/24 11:18 IMPRESSION: 1. Allowing for suboptimal positioning, there is no CT evidence of acute cervical spine fracture or injury. 2. Degenerative changes with bulky ventral osteophytes spanning C4-C6, appearance in keeping with DISH. Electronically signed by: Fortino Dumont MD 03/21/2024 12:01 PM EST RP Head CT 03/21/24 11:18 IMPRESSION: 1. No acute intracranial abnormality. No acute fractures seen. 2. Stable chronic findings as discussed. Electronically signed by: Fortino Dumont MD 03/21/2024 11:54 AM EST RP Pelvis CT 03/21/24 11:18 IMPRESSION: 1. No acute bony abnormalities. No fractures. 2. Constipation with a large amount of stool in the rectum and sigmoid colon. 3. Mild thickening of the urinary bladder wall despite underdistention, nonspecific. Differential includes the detrusor hypertrophy, neurogenic bladder, or possibly cystitis. Electronically signed by: Fortino Dumont MD 03/21/2024 12:09 PM EST RP Head CT 03/28/24 09:37 IMPRESSION: No acute fracture, bony calvarium. No acute intracranial hemorrhage. Small vessel occlusive disease. Bifrontal bitemporal lobe atrophy. Electronically signed by: Juan Corrigan MD 03/28/2024 10:19 AM EST RP Head CT 04/25/24 12:22 IMPRESSION: No acute intracranial process seen. Electronically signed by: Ritchie Marte MD 04/25/2024 01:01 PM EST RP Medications Medications Current Medications Acetaminophen (Acetaminophen 325 Mg Tablet) 650 mg PO Q6H PRN PRN Reason: pain (1-10) Al Hydroxide/Mg Hydroxide (Magnesium Hydrox/Alum Hydrox 30 Ml Oral.Susp) 30 ml PO Q6H PRN PRN Reason: Heartburn/Nausea Aripiprazole (Aripiprazole Er 400 Mg Suser.Syr) 400 mg IM Q30D [facility] Last Admin: 06/16/24 13:19 Dose: 400 mg Ascorbic Acid (Ascorbic Acid 500 Mg Tablet) 500 mg PO DAILY [facility] Last Admin: 06/19/24 08:47 Dose: 500 mg Aspirin (Aspirin 81 Mg Tab.Chew) 81 mg PO DAILY [facility] Last Admin: 04/23/24 08:34 Dose: 81 mg Benztropine Mesylate (Benztropine Mesylate 0.5 Mg Tablet) 0.5 mg PO BID [facility] Last Admin: 06/19/24 08:46 Dose: 0.5 mg Carbamazepine (Carbamazepine 200 Mg Tablet) 300 mg PO BID [facility] Last Admin: 06/19/24 08:46 Dose: 300 mg Ferrous Sulfate (Ferrous Sulfate 324 Mg Tablet.) 324 mg PO DAILY [facility] Last Admin: 06/19/24 08:46 Dose: 324 mg Haloperidol (Haloperidol 5 Mg Tablet) 5 mg PO TID [facility] Last Admin: 06/19/24 15:36 Dose: 5 mg Haloperidol Lactate (Haloperidol Lactate Oral Conc 10 Mg/5 Ml Oral.Conc) 5 mg PO Q6H PRN PRN Reason: Psychosis or severe agitation Last Admin: 05/05/24 02:37 Dose: 5 mg Haloperidol Lactate (Haloperidol Lactate 5 Mg/Ml Vial) 5 mg IM TID PRN PRN Reason: Refusal of Court PO Haldol Last Admin: 05/06/24 00:36 Dose: 5 mg Magnesium Hydroxide (Milk Of Magnesia 30 Ml Oral.Susp) 30 ml PO DAILY PRN PRN Reason: Constipation Nicotine Polacrilex (Nicotine Polacrilex 2 Mg Gum) 2 mg BUCCAL Q2H PRN PRN Reason: Nicotine Cravings Trazodone HCl (Trazodone Hcl 50 Mg Tablet) 50 mg PO BEDTIME PRN PRN Reason: Insomnia Last Admin: 05/30/24 21:16 Dose: 50 mg Vitamin D (Cholecalciferol (Vitamin D3) 25 Mcg Tablet) 50 mcg PO DAILY [facility] Last Admin: 06/19/24 08:47 Dose: 50 mcg Allergies Allergies Allergy/AdvReac Type Severity Reaction Status Date / Time lithium Allergy Unknown Verified 01/13/24 18:08 divalproex sodium AdvReac Severe encephalopa Verified 05/08/24 12:34 [From Depakote] thy Assessment & Plan Assessment & Plan (1) Schizoaffective disorder, bipolar type: Status: Acute Code(s): F25.0 - Schizoaffective disorder, bipolar type (2) Diabetes mellitus: Status: Acute Code(s): E11.9 - Type 2 diabetes mellitus without complications Assessment and Plan: A1c on 04/28 5.9% Not on current medications (3) Hypertension: Status: Acute Code(s): I10 - Essential (primary) hypertension Assessment and Plan: not on current medications (4) Pancytopenia: Status: Acute Code(s): D61.818 - Other pancytopenia Assessment and Plan: seems to be improving after dc depakote CBC on 05/09/2024--> shows improvement in platelets 88 to 146, ANC also improved from 800 to 2300. normocytic anemia with Hgb 11, stable H&H. labs completed on 05/16 cbc with lower ANC 1500 (from 05/12 3200- this probably due to lowering lithium dose due to increase in BUN and Cr), Platelets trending up although slightly low 150, from 88 on 03/30/2023. Carbamazepine level 8.1 BUN 18, Cr 1.31 (improved from 05/12 BUN 20, Cr 1.46). Labs completed 06/04/2024- CBC normocytic enemia, slightly elevated but w/in normal range MCV. Plt 153, ANC 1400. CMP elevation BUN 24, Cr 1.56, creatinine clearance 45.8. (5) Chronic kidney disease (CKD): Status: Acute Code(s): N18.9 - Chronic kidney disease, unspecified Assessment and Plan: on low dose of lithium, closely monitoring renal function. Plan 03/23 keep same treatment 68 yo from a [facility] with chronic psychotic disorder, refusing medication , elevated bp and disorganized and agitated behavior requiring psychiatric hospitalization and treatment not competent to sign cv. 01/14 continue to follow - gave lambs warning today- and he says the collection correspondent will be a she- still refusing medications and quite psychotic takes alot of redirection to settle him poor adls- 01/15- Refuses meds, refuses hospitalist consult-second day File for Section [place] consideration on 01/17. Provide care as he will allow. 01/16: Depakote 250 mg bid Haldol, Lorazepam, Benadryl prn Section 7 to be filed 01/17 Message left for guardian. 01/17: Section Seven filed. . Court scheduled 01/26/24 Pt continues to refuse medicaitons. He is in need of full assist with ADL's and is incontinent. Pt transferred to [facility] this afternoon. 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 Every attempt being made to get a copy of the patient's Servin order unclear why this has been so problematic. Encourage food and fluids 01/19 continue same treatment 01/21/24 Patient labile agitated intrusive close labs ordered in order to per to protect the community patient wandering into patient's rooms intrusive impulsive laying on another person's bed. Often hostile agitated posturing at times we are still pending copy of reported Servin order encourage p.o. compliance 01/22/2024 Patient did require physical hold escort him out of a room that he jumped in other patient's room and on their bed while there were in it. There was no physical harm and the patient did leave the room his markedly impulsive with poor judgment remains on close observation has intermittently taken Haldol liquid pending civil commitment treatment plan there is a question of Servin order 01/22 The patient had been more agitated. We review his Servin order and we are increasing the Abilify up to 15 mg p.o. daily and adding Haldol p.r.n. since it is in his role years order. We needed to give him some p.r.n. at 14:00. 01/23 The patient is grossly psychotic disrobing and sexually disinhibited we are starting Haldol 2 mg p.o. t.i.d. to target psychosis as per court order treatment over objection order. 01/24 The patient remains very agitated and angry disruptive so we are increasing the Haldol from 2 mg to 5 mg p.o. t.i.d. with a backup IM if the patient refused as per court order. 01/25 we have increased the Haldol but still he is very psychotic and restless. Today he refused his blood work. He needed to be physically held twice. 01/26 the patient remains agitated at times but his last IM backup was yesterday. We are going to increase Abilify up to 20 mg daily to target mood lability and psychosis. 01/29/2024: Increase frequency of prn doses from tid to prn q 6mrs. Poor insight and unable to care for self 02/08 pt has not take any of mood stabilizer. continues to have poor sleep, intrusive and combative requiring IM medications, increase haldol 10mg po TID, back up IM. Will add ativan 1mg po TID, also back up IM. Labs show elevated CK 2300, BUN 20, Cr 1.80, unclear baseline Cr as he does have CKD. Discussed with hospitalist Dr. Gama, to give IV fluids and monitor labs tomorrow. LFTs also elevated suspect this is secondary to elevation in CK and should trend down as CK goes down. 02/09 still agitated, creatinine and CPK slightly high as yesterday, he removed his IV line there is no big difference with IV hydration. We are changing his community role years to have more options since it is not working Abilify and Haldol 02/10 3 chemical restraints yesterday. appears more combative, and somewhat more confused. Will decrease amount of benzo and antihistamine given to him as it seems to be backfiring. did discuss with ICU attending, Dr. Whiteside possibility of transferring there but they would like us to try IV depakote and exhaust all resources prior to considering transfer. Pt did take depakote springkle 1000mg with apple sauce with much encourage. 02/11 continue tx. 02/12 continue same treatment 01/14 continue with Abilify and other court order medications, we are Nam[place] and the court order. 02/14 Team report improvement today with pt having greater comfort and less agitation. [id number] the staff reported that the patient had been less violent in the last 24 hours 02/16 continue tx. will check depakote and ammonia on 02/17 in AM. 02/17 continue regime and plan of care 02/26/2024: Continue current regimen as per court order 03/03 continue tx. lactulose for now as we don't have new ammonia level, but will try to chack labs. 03/16- continue medications, held clonidine patch for today due to low BP. repeat labs. 03/17-continue plan of care 03/18- continue tx 03/19 continue same treatment 03/20 waiting for CBC, basic metabolic panel and ammonia level. Today he nearly choked with a grape. We are going to change his diet to chopped 03/21 patient had a fall and he was assessed. No injuries as per CT scan of head and pelvis. Again he refused again his blood work vital signs within normal limits. 03/22 keep same treatment 03/23 keep same treatment 03 24 24 Continue plan of care Depakote Tegretol Haldol carbamazepine 03/25/2024 Repeat swallowing study ordered he is already on ground diet consider lowering Haldol versus Cogentin generally try to avoid older man 03/26 lowered Haldol to 7.5 p.o. b.i.d. 03/27 start Abilify Maintena 400 IM, later on we stopped it since he was over-sedated. 03/28 monitor vital signs and we will order blood work for tomorrow morning. 03/29 keep same treatment. We are deferring Abilify Maintena since the patient is still sedated and looks slightly delirious. He has refused blood work 03/31 continue current tx. less combative but no improvement in mentation. grossly disorganized and non sensical. 04/01: court ordered meds- team reviewing and optimizing same. 04/02 continue tx. 04/03 keep same treatment, so far he had been more compliant with some of the medications in the last 3 days. 04/04 start Abilify Maintena 400 mg IM 04/05 keep Haldol as prescribed 04/06 keep same treatment 04/08/24 continue current plan, regime 04/09/24 continue plan, CAT pending 04/10 continue same treatment 04/11 keep same treatment 04/12 lowering Haldol to 5 mg p.o. b.i.d. since the patient is over-sedated. 04/13 keep same treatment 04/14 agitated today, jumping around, dive off bed, crawling on all 4's, naked; took meds; now sleeping -floridly psychotic and magnetic tape typewriter operator thought best to let pt sleep 04/16 keep same treatment 04/17 Abilify Maintena 400 mg today and scheduled next for 30 days. 04/18 change Haldol to 5 mg p.o. t.i.d. with backup IM if he refuses p.o. 04/19 keep same treatment. 04/20 keep same treatment 04/21: verbally aggressive, restless. continue 1:1 and current Tx plan. 04/22: asleep, not easily rousable. restless and irritable last gwen, slept only 4 hours overnight. continue current mgmt. 04/23 add Cogentin 0.5 p.o. b.i.d. small improvement on his psychosis 04/24 continue with same treatment. 04/25 the patient fell again. Blood pressure had been okay even though that he is noncompliant with clonidine patch. We discussed the case with the medical team and they agreed that we can discontinue since he had been noncompliant of clonidine patch since March 09. Starting on propranolol 5 mg p.o. t.i.d. to target akathisia. 04/26 continue tx. 04/27 continue tx. 04/28 reviewing labs- neutropenia and thrombocytopenia worsening Plt 88, ANC 1000, consult to mohamud/onc as plan to continue depakote given that it has been very difficult to stabilize patient. Also, pt with hx of DM, not on any medications. Will obtain A1c. continues to present disorganized, delirium-like presentation. VS are stable, BP on lower side, no need for additional medication for BP. depakote level 100.1. Ammonia level wnl. Will decrease dose of depakote given pancytopenia. 04/29 will stop depakote (one as it may be contributing to pancytopenia, second because it has not shown significant improvement in mentation), continue carbamazepine, pt seen by oncology- appreciate recommendations- 04/30 continue tx. continue to monitor ANC, Plts. oncology/hem following. 05/01 speech and thought process more organized- which is improvement. sexualized remarks, unaware of unsteady gait and weakness. will repeat CBC- continue monitor pancytopenia. 05/02/24 On lithium monitor pancytopenia wbc 3.0 less confused 05/03/24 Increase lithium 300 bid monitor response watch for confusion 05/04 continue current tx, willc heck lithium level, renal function, TSH and repeat CBC on 06/10 at 7am. may need to increase haldol 05/05/24 Continue lithium and Tegretol encourage fluids check lithium TSH electrolytes continue to monitor CBC 05/06/2024 Patient seen chart reviewed case reviewed with nursing staff. Patient was somewhat more dysphoric today tried to engage in conversation had a difficult time. He slept about 4 hours did get Haldol the other day was offered p.o. Ativan p.r.n. encourage fluids with lithium avoid nonsteroidals no gross confusion or tremor 05/07 continue tx. pending labs for lithium level, TSH, cbc on 05/10. 05/08 continue tx. 05/09 pt appeared to have seizure, was given ativan 2mg IM, CMP does show elevation in BUN 23, and elevation on Cr 1.50, mild hyperkalemia 5.2. CBC shows improvement in platelets 88 to 146, ANC also improved from 800 to 2300. normocytic anemia with Hg 11, stable H&H. will decreased lithium 150mg po BID. Increase carbamazepine to 300mg po BID. Awaiting recommendation from neurology. 05/10 continue tx. monitor CMP- renal function. seen by neurology. 05/11 repeat cmp tomorrow, lowered lithium to 150mg po qhs. continue monitoring renal function. 05/12 Patient doing well, polite, organized in speech and behavior. Discussed his lab work and medication regimen which he understood. Edge Molder inquired about patient's awareness of the past months which he has little memory of but says I was out of my mind... And is happy to be organized. 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 -switch to Q 15 minute checks Reviewed labs and BUN/creatinine improved; alk-phos only mildly elevated Continue with current treatment plan 05/14/24- continue monitor renal function, will also check carbamazepine level, cbc, and cmp on 05/16/2024. 05/15 continue tx. labs scheduled for 05/16 05/16 labs completed on 05/16 cbc with lower ANC 1500 (from 05/12 3200- this probably due to lowering lithium dose due to increase in BUN and Cr), Platelets trending up although slightly low 150, from 88 on 03/30/2023. Carbamazepine level 8.1 BUN 18, Cr 1.31 (improved from 05/12 BUN 20, Cr 1.46). 05/17 continue tx. 05/18 continue tx. 05/19- much improved CTP! 05/20- CTP 05/21 continue tx. BP was low this morning- 98/55, HR78, will monitor oral intake and renal function. 05/22 continue tx. will check renal function 05/23 05/23 will postpone cmp for next week, not critical at this point and pt asked if they can be done next week as he has had multiple lab work recently. 05/24 continue tx. 05/25 continue tx. asks to speak with urologist about erectile dysfunction- will defer to OP. 05/28 continue tx. 05/29 continue tx. 05/30 continue tx. 05/31 continue tx. 06/01 continue tx. 06/02: stable. asked to address ED, deferred to outpt. no questions or concerns otherwise. 06/03: stable. continue current mgmt. 06/04 labs completed, slightly elevated BUN and Cr from what seemed to be his baseline, although he does have underlying CKD stage3 [place] not making much difference in ANC at this dose and may be affecting renal function (although still close to baseline). will d/c lithium currently 150mg po qhs. 06/05 continue tx. 06/15 continue tx. 06/16 continue tx. 06/18 continue tx. will check renal function cbc this week. 06/19 continue tx. Reason for continued inpatient stay Substantial Risk for: inability to function Time Spent With Patient Time: Total time managing care of this patient today ____ minutes.
[2024-06-19 20:00] VITALS: BP 151/60; PULSE 58; RESP 16; TEMP 36.6; O2SAT 100
[2024-06-20 08:00] VITALS: BP 134/65; PULSE 90; RESP 16; TEMP 2.6; TEMP 36.7; O2SAT 96
--- NOTE | 2024-06-20 08:15 | P.DS_ITS ---
DS: Providers Provider Date of Service: 06/20/24 Date of admission: 01/13/24 17:48 Date of discharge: 06/20/24 Primary care physician: Unknown Physician Consults: 03/26/24 14:15 Consult to Hospitalist Routine Comment: Consulting Provider: [facility] Reason For Exam: Diarrhea, low pO intake 04/05/24 16:00 Consult to Hospitalist Routine Comment: Consulting Provider: [facility] Reason For Exam: Fall, head trauma, CT head ordered STAT 04/09/24 14:18 Consult to Hospitalist Routine Comment: Consulting Provider: [facility] Reason For Exam: s.p fall this a.m. CAT pending, r eye, head, 04/23/24 16:10 Consult to Hospitalist Routine Comment: Consulting Provider: [facility] Reason For Exam: fall, head trauma 04/28/24 10:31 Consult to Hematology / Oncology Routine Consulting Provider: [facility] Reason for consultation: neutropenia/thrombocitopenia on mood stabilizer Has provider been notified: Yes 05/09/24 12:17 Consult to Neurology Routine Consulting Provider: [facility] Reason for consultation: ?Complex partial seizure Discharging clinician: Rebecca Abraham DS: Diagnosis Discharge Diagnosis (1) Schizoaffective disorder, bipolar type: Status: Acute (2) Diabetes mellitus: Status: Acute (3) Hypertension: Status: Acute (4) Pancytopenia: Status: Acute (5) Chronic kidney disease (CKD): Status: Acute DS: Medications Discharge Medications Home Medications: Home Medications ?Medication ?Instructions ?Recorded ?Confirmed amlodipine 10 mg tablet 10 mg PO DAILY 01/13/24 01/13/24 aripiprazole 10 mg tablet 10 mg PO DAILY 01/13/24 01/13/24 atorvastatin 40 mg tablet 40 mg PO DAILY 01/13/24 01/13/24 deutetrabenazine 36 mg 36 mg PO DAILY 01/13/24 01/13/24 tablet,extended release 24 hr (Austedo XR) gabapentin 300 mg capsule 300 mg PO TID 01/13/24 01/13/24 carbamazepine 100 mg/5 mL oral 400 mg PO BID 01/14/24 01/14/24 suspension empagliflozin 10 mg tablet 10 mg PO DAILY 01/14/24 01/14/24 (Jardiance) glipizide 5 mg tablet 5 mg PO BID 01/14/24 01/14/24 haloperidol lactate 2 mg/mL oral 15 mg PO BID 01/14/24 01/14/24 concentrate levothyroxine 25 mcg tablet 25 mcg PO DAILY 01/14/24 01/14/24 lisinopril 20 mg tablet 20 mg PO DAILY 01/14/24 01/14/24 valproic acid (as sodium salt) 250 500 mg PO BID 01/14/24 01/14/24 mg/5 mL oral solution Mental Status Exam Mental Status Exam Narrative: Appearance: fair hygiene, casual clothing, dressing self on his own, in NAD Behavior: calm;cooperative Psychomotor: no agitation or retardation Speech: clear, normal rate/rhythm/volume, spontaneous TP: linear TC: feeling well Mood: good Affect: calm, non-labile SI: none expressed HI: none expressed VH/AH: no overt signs Delusions: no overt Insight/judgment:improved x 2. Memory/cog: alert, oriented to place, month, situation, year. Data Imaging Diagnostic Imaging Impressions Chest X-Ray 03/20/24 08:33 IMPRESSION: Extremely limited exam. Only lateral views could be obtained. Suspect basilar airspace opacity, possibly pneumonia. Electronically signed by: Fortino Dumont MD 03/20/2024 10:10 AM EST RP Cervical Spine CT 03/21/24 11:18 IMPRESSION: 1. Allowing for suboptimal positioning, there is no CT evidence of acute cervical spine fracture or injury. 2. Degenerative changes with bulky ventral osteophytes spanning C4-C6, appearance in keeping with DISH. Electronically signed by: Fortino Dumont MD 03/21/2024 12:01 PM EST RP Head CT 03/21/24 11:18 IMPRESSION: 1. No acute intracranial abnormality. No acute fractures seen. 2. Stable chronic findings as discussed. Electronically signed by: Fortino Dumont MD 03/21/2024 11:54 AM EST RP Pelvis CT 03/21/24 11:18 IMPRESSION: 1. No acute bony abnormalities. No fractures. 2. Constipation with a large amount of stool in the rectum and sigmoid colon. 3. Mild thickening of the urinary bladder wall despite underdistention, nonspecific. Differential includes the detrusor hypertrophy, neurogenic bladder, or possibly cystitis. Electronically signed by: Fortino Dumont MD 03/21/2024 12:09 PM EST RP Head CT 03/28/24 09:37 IMPRESSION: No acute fracture, bony calvarium. No acute intracranial hemorrhage. Small vessel occlusive disease. Bifrontal bitemporal lobe atrophy. Electronically signed by: Juan Corrigan MD 03/28/2024 10:19 AM EST RP Head CT 04/25/24 12:22 IMPRESSION: No acute intracranial process seen. Electronically signed by: Ritchie Marte MD 04/25/2024 01:01 PM EST RP DS: Summary Hospital Course Hospital Course: Mr. Del Real is a 68 year-old male with hx of schizoaffective disorder, bipolar type who was admitted to on 01/14/24 due to increased combative behaviors, disorganized behaviors, disrobing, sexualized behaviors along with caodaism preoccupation. Pt apparently had stopped psychotropic medications including combination of abilify, haldol carbamazepine and depakote. Pt has a guardian and Mitchell's including haldol, abilify maintena, prolixin. He had a prolonged hospital stay complicated by severe periods of agitation, purposeless behaviors and aggression towards self and others. He required at least 7-10 chemical and physical restrains. He had combination of prn medications from thorazine, haldol, ativan. He was restarted on carbamazepine and depakote. However, he did become encephalopathic with depakote even without hyperammonemia. His mentation significantly improved after stopping depakote. He also developed pancytopenia with mood stabilizers. Seen by hematology ruled out other causes of pancytopenia including viral (neg Hep panel and HIV), collagen vascular disorder (ESR: 7, RA: <13 and JAYLA neg) and Myelo Infiltrative disorder LDH:179 and in SIEP). Depakote was discontinued, platelets improved from 88 to 153. ANC also improved from 800 on 05/02/2024 to 1400 on 06/04/2024. He also has chronic normocytic anemia, iron deficiency, started on ferrous sulfate 324mg po daily and vit c to help with absorption. CBC on 06/20/2024 showed improved/stable Hgb 12.5/Hct 38, Plt 158, ANC 1800. He does have CKD stage 3, he was trial on lithium for mood stabilization, which is a medication that seems to have therapeutic benefit for him but renal function did decrease, therefore it was discontinued. He was continued on carbamazepine for mood stabilization with good effect. He was also continued on abilify maintena 400mg IM q30d: he received doses on 04/04/2024; 05/17/2024 and 06/16/2024. His next dose would be on 07/16/2024. His A1c was 5.9 on 04/28/2024. He is currently on no medications for DM, recommended to continue following up. He was taken off lisinopril due to hyperkalemia s/s to CKD stage 3. He was started on amlodipine 2.5mg po daily. He is recommended to continue atorvastatin 40mg po qhs. TSH has been stable on 05/09/2024 was 3.42 (on 02/09/2024 TSH was 3.91) he is not on levothyroxine. He had a number of head CT due to falls and head injury. No acute findings but head CT did show periventricular microvascular changes, atrophy, more pronounced on bilateral frontotemporal. He also has old lacunar infarct in basal ganglia, right thalamus. Pt is on chopped diet due to dysphasia. Status at Discharge Cognitive/behavioral status at discharge: Pt with brighter, non labile affect. No SI/HI. No overt psychosis or delusions. Sleeping and eating well. No aggression towards self or others. Functional status at discharge: independent ambulation Overall status at discharge: patient is back to baseline Time Spent with Patient Time attestation: Total time managing care of this patient today __40__ minutes. Time spent: Greater than 30 minutes Discharge Plan Discharge Anticipated Discharge Date/Time: 06/20/24 08:16 Patient Disposition: Home, Self-Care Discharge Diagnosis: schizoaffective disorder bipolar type Referrals: SNF Placement: [facility] [Other] - 06/20/24 4:00 pm (Long-term care placement where staff will manage all your care, medical needs and medication ) Discharge Medications: New ferrous sulfate 324 mg (65 mg iron) Tablet,Delayed Release (Dr/Ec) 324 mg PO DAILY Qty: 0 0RF amlodipine 2.5 mg Tablet 2.5 mg PO DAILY Qty: 0 0RF Protocol: Hold for SBP< HOLD for SBP < : 90 Abilify Maintena 400 mg Suspension,Extended Rel Syring 400 mg IM Q30D Qty: 0 0RF benztropine 0.5 mg Tablet 0.5 mg PO BID Qty: 0 0RF carbamazepine 200 mg Tablet 300 mg PO BID Qty: 0 0RF haloperidol 10 mg tablet 10 mg PO BEDTIME Qty: 0 0RF haloperidol 5 mg Tablet 5 mg PO DAILY Qty: 0 0RF trazodone 50 mg Tablet 50 mg PO BEDTIME PRN (Reason: Insomnia) Qty: 0 0RF ascorbic acid (vitamin C) [Vitamin C] 500 mg Tablet 500 mg PO DAILY Qty: 0 0RF cholecalciferol (vitamin D3) 25 mcg (1,000 unit) Tablet 50 mcg PO DAILY Qty: 0 0RF Continued atorvastatin 40 mg tablet 40 mg PO DAILY Discontinued amlodipine 10 mg tablet 10 mg PO DAILY gabapentin 300 mg capsule 300 mg PO TID aripiprazole 10 mg tablet 10 mg PO DAILY Austedo XR 36 mg tablet extended release 24 hr 36 mg PO DAILY lisinopril 20 mg tablet 20 mg PO DAILY levothyroxine 25 mcg tablet 25 mcg PO DAILY valproic acid (as sodium salt) 250 mg/5 mL solution 500 mg PO BID carbamazepine 100 mg/5 mL suspension 400 mg PO BID glipizide 5 mg tablet 5 mg PO BID haloperidol lactate 2 mg/mL concentrate 15 mg PO BID Jardiance 10 mg tablet 10 mg PO DAILY Discharge Orders: Discharge Order (Routine); Ordered 06/20/24 Ordered By: Rebecca Abraham Diet: Regular diet Activity on Discharge: As tolerated Stand Alone Forms: Patient Portal Discharge page, Community Support Print Language: [place] Care Plan Goals: 1. Maintain mood 2. No SI/HI 3. No psychosis or delusions 4. No aggression towards self or others Health Concerns: Follow up with PCP: 1. Pancytopenia s/s to carbamazepine- Plt improved (after stopping depakote), ANC stable. 2. Last A1c 5.9% on 04/28/2024--> he is currently on no DM medications 3. TSH on 05/09/2024: 3.42 not on levothyroxine, continue to monitor OP. 4. Monitor lipid panel- restarted on atorvastatin 40mg po bedtime. 5. HTN- started on amlodipine 2.5mg po daily 6. CKD stage 3: avoid NSAID, nephrotoxic medications (can't take lithium) Plan of Treatment: 1. Take medications as prescribed. 2. Go to ED or call 911 in event of emergency Assessment: Pt with brighter, non labile affect. No SI/HI. no overt psychosis or delusions. Sleeping and eating well. No behavioral concerns. Discharge Date/Time: 06/20/24 03:03
[2024-06-20] MEDS: carBAMazepine 200 MG TABLET 300 MG PO (08:28)
[2024-06-20] MEDS: Benztropine Mesylate 0.5 MG TABLET PO (08:29)
[2024-06-20] MEDS: Ferrous Sulfate 324 MG TABLET.DR PO (08:29)
[2024-06-20] MEDS: Cholecalciferol (Vitamin D3) 25 MCG TABLET 50 MCG PO (08:29)
[2024-06-20] MEDS: Ascorbic Acid 500 MG TABLET PO (08:29)
[2024-06-20] MEDS: amLODIPine Besylate 2.5 MG TABLET PO (08:39)
[2024-06-20] MEDS: HaloperidoL 5 MG TABLET PO (08:39)
[2024-06-20 10:14] LABS: MANUAL DIFF FLAG NO
[2024-06-20 10:17] LABS: Basophils Percent Auto 0.4 % (0-2); Eosinophils Absolute Auto 0.1 X10*3/uL (0.0-0.4); Eosinophils Percent Auto 1.6 % (0-4); Hematocrit 38.3 % (42.0-52.0); Hemoglobin 12.7 g/dl (14.0-18.0); Imm Gran Abs Auto 0.01 X10*3/uL (0.00-0.03); Imm Gran Pct Auto 0.2 % (0.0-0.4); Lymphocytes Absolute Auto 2.3 X10*3/uL (1.2-4.9); Lymphocytes Percent Auto 51.9 % (20-40); Mean Corpuscular HGB Conc 33.2 g/dl (31.0-36.0); Mean Corpuscular Hemoglobin 29.9 pg (27.0-33.0); Mean Corpuscular Volume 90.1 fL (80.0-98.0); Mean Platelet Volume 9.6 fL (9.4-12.4); Monocytes Absolute Auto 0.3 X10*3/uL (0.1-1.2); Monocytes Percent Auto 6.5 % (2-11); Neutrophils Absolute Auto 1.8 x10*3/uL (2.0-8.3); Neutrophils Percent Auto 39.4 % (45-73); Platelet Count 158 X10*3/uL (160-400); Red Blood Count 4.25 X10*6/uL (4.60-5.80); White Blood Count 4.5 X10*3/uL (4.8-10.8)
[2024-06-20 10:37] LABS: Alanine Aminotransferase 52 U/L (0-40); Albumin Level 4.2 g/dL (3.5-5.0); Alkaline Phosphatase 135 U/L (39-117); Anion Gap 14 (12-20); Aspartate Amino Transferase 26 U/L (5-37); Bilirubin Total 0.2 mg/dL (0.0-1.0); Blood Urea Nitrogen 19 mg/dL (9-16); Calcium 9.5 mg/dL (8.4-10.2); Carbon Dioxide 23 mmol/L (22-29); Chloride 105 mmol/L (96-108); Cholesterol 261 mg/dL (<200); Creatinine Clr Calc Pharmacy 47.4; Estimated Glomerular Filt Rate 46; Glucose Random 182 mg/dL (60-115); HDL Cholesterol 60 mg/dL (>40); LDL Cholesterol Calculated 164 mg/dL (<100); Potassium 4.4 mmol/L (3.3-5.1); Sodium 138 mmol/L (135-145); Total Protein 7.1 g/dL (6.5-8.0); Triglycerides 186 mg/dL (<150)
[2024-06-20 10:39] LABS: Carbamazepine Tegretol 8.9 mcg/mL (5.0-12.0)
[2024-06-20 10:59] LABS: TSH reflex Free T4 3.54 uIU/mL (0.32-4.0)
== END 2024-06-20 03:03 | disposition home or self-care (01) | DRG 885 ==
LOC: HO.PM5 01-17 21:42 → HO.PGERI 01-18 13:42
PROVIDERS: Internal Medicine; Internal Medicine Medical Oncology; Psychiatry & Neurology Psychiatry; Social Worker; Admitting Provider Psychiatry & Neurology Psychiatry; Visit Provider Clinical Nurse Specialist Psychiatric/Mental Health, Adult
DX: F25.0 Schizoaffective disorder, bipolar type (principal); D61.818 Other pancytopenia; T17.228A Food in pharynx causing other injury, initial encounter; E03.9 Hypothyroidism, unspecified; I12.9 Hypertensive chronic kidney disease with stage 1 through stage 4 chronic kidney disease, or unspecified chronic kidney disease; N18.30 Chronic kidney disease, stage 3 unspecified; E11.22 Type 2 diabetes mellitus with diabetic chronic kidney disease; Z78.1 Physical restraint status; Z20.822 Contact with and (suspected) exposure to COVID-19; Z91.199 Patient's noncompliance with other medical treatment and regimen due to unspecified reason; Z79.85 Long-term (current) use of injectable non-insulin antidiabetic drugs; Z79.890 Hormone replacement therapy; Z79.899 Other long term (current) drug therapy
CPT/HCPCS: 0241U; 36415; 70450; 71046; 72125; 72192; 80048; 80053; 80061; 80076; 80156; 80164; 80178; 82140; 82550; 82784; 82947; 83036; 83605; 83615; 83735; 84443; 85007; 85025; 85027; 85652; 86038; 86334; 86431; 86704; 86705; 86706; 86803; 87340; 87389; 92526; 92610; 93005; 95816; J0401; J1200; J1630; J2060; J2359; J3230

== ENCOUNTER 2024-01-13 17:48 | Outpatient (BNV) | payer OTHER, SELFPAY | END 2024-03-21 11:18 | PROVIDERS: Admitting Provider Psychiatry & Neurology Psychiatry; Visit Provider Radiology Diagnostic Radiology | DX: N32.89 Other specified disorders of bladder (principal); M25.78 Osteophyte, vertebrae; I67.82 Cerebral ischemia; W19.XXXA Unspecified fall, initial encounter; F03.90 Unspecified dementia, unspecified severity, without behavioral disturbance, psychotic disturbance, mood disturbance, and anxiety | CPT/HCPCS: 70450; 72125; 72192 ==

== ENCOUNTER 2024-01-13 17:48 | Outpatient (BNV) | payer OTHER, SELFPAY | END 2024-04-05 16:17 | PROVIDERS: Admitting Provider Psychiatry & Neurology Psychiatry; Visit Provider Radiology Diagnostic Radiology | DX: G31.89 Other specified degenerative diseases of nervous system (principal); I67.82 Cerebral ischemia | CPT/HCPCS: 70450 ==

== ENCOUNTER 2024-01-13 17:48 | Outpatient (BNV) | payer OTHER, SELFPAY | END 2024-02-29 01:45 | PROVIDERS: Admitting Provider Psychiatry & Neurology Psychiatry; Visit Provider Radiology Neuroradiology | DX: S09.90XA Unspecified injury of head, initial encounter (principal) | CPT/HCPCS: 70450; 72125 ==

== ENCOUNTER 2024-01-13 17:48 | Outpatient (BNV) | payer OTHER, SELFPAY | END 2024-04-25 12:10 | PROVIDERS: Admitting Provider Psychiatry & Neurology Psychiatry; Visit Provider Radiology Diagnostic Radiology | DX: R22.0 Localized swelling, mass and lump, head (principal); W19.XXXA Unspecified fall, initial encounter | CPT/HCPCS: 70450 ==

== ENCOUNTER 2024-01-13 17:48 | Outpatient (BNV) | payer OTHER, SELFPAY | END 2024-03-11 17:08 | PROVIDERS: Admitting Provider Psychiatry & Neurology Psychiatry; Visit Provider Internal Medicine Cardiovascular Disease | DX: R94.31 Abnormal electrocardiogram [ECG] [EKG] (principal) | CPT/HCPCS: 93010 ==

== ENCOUNTER 2024-01-13 17:48 | Outpatient (BNV) | payer OTHER, SELFPAY | END 2024-04-23 16:20 | PROVIDERS: Admitting Provider Psychiatry & Neurology Psychiatry; Visit Provider Radiology Diagnostic Radiology | DX: R51.9 Headache, unspecified (principal) | CPT/HCPCS: 70450 ==

== ENCOUNTER 2024-01-13 17:48 | Outpatient (BNV) | payer OTHER, SELFPAY | END 2024-03-28 09:37 | PROVIDERS: Admitting Provider Psychiatry & Neurology Psychiatry; Visit Provider Radiology Diagnostic Radiology | DX: S09.90XA Unspecified injury of head, initial encounter (principal); W19.XXXA Unspecified fall, initial encounter | CPT/HCPCS: 70450 ==

== ENCOUNTER 2024-01-13 17:48 | Outpatient (BNV) | payer OTHER, SELFPAY | END 2024-04-09 09:01 | PROVIDERS: Admitting Provider Psychiatry & Neurology Psychiatry; Visit Provider Radiology Diagnostic Radiology | DX: R22.0 Localized swelling, mass and lump, head (principal); W19.XXXA Unspecified fall, initial encounter | CPT/HCPCS: 70450 ==

== ENCOUNTER → 2024-01-13 17:48 | Outpatient (BNV) | payer OTHER, SELFPAY | PROVIDERS: Admitting Provider Psychiatry & Neurology Psychiatry; Visit Provider Clinical Nurse Specialist Psychiatric/Mental Health, Adult | DX: F25.0 Schizoaffective disorder, bipolar type (principal); I10 Essential (primary) hypertension; E11.9 Type 2 diabetes mellitus without complications | CPT/HCPCS: 99231; 99232; 99499 ==

== ENCOUNTER → 2024-01-13 17:48 | Outpatient (BNV) | payer OTHER, SELFPAY | PROVIDERS: Admitting Provider Psychiatry & Neurology Psychiatry; Visit Provider Psychiatry & Neurology Neurology | DX: G93.40 Encephalopathy, unspecified (principal) | CPT/HCPCS: 99222 ==

== ENCOUNTER → 2024-01-13 17:48 | Outpatient (BNV) | payer OTHER, SELFPAY | PROVIDERS: Admitting Provider Psychiatry & Neurology Psychiatry; Visit Provider Internal Medicine Medical Oncology | DX: D61.818 Other pancytopenia (principal) | CPT/HCPCS: 99222 ==

== ENCOUNTER → 2024-01-13 17:48 | Outpatient (BNV) | payer OTHER, SELFPAY | PROVIDERS: Admitting Provider Psychiatry & Neurology Psychiatry; Visit Provider Psychiatry & Neurology Psychiatry | DX: F25.0 Schizoaffective disorder, bipolar type (principal); I10 Essential (primary) hypertension; E11.9 Type 2 diabetes mellitus without complications | CPT/HCPCS: 99231; 99232; 99499 ==